=== PATIENT | female | born 1980 | race Caucasian/White ===

== ENCOUNTER 2016-06-30 10:22 | Emergency (ER) | payer SELFPAY ==
[~2016-06-30 10:22] MED LIST: ACYC400T; ALPR0.25 PO; AMIT50TA3 PO; AZIT-21 PO; CHLO15MO3 PO; CYCL10TA9 PO; GABA300T PO; HYDR12.570 PO; LISI10TA2 PO; MIRT15TA6; NAPR-243 PO; OMEP20CA6 PO; ONDA4TAB11 PO; ONDA8TAB9 PO; QUET300T44; TRAM-21 PO; TRAM50TA2 PO; VENL150C PO
== END 2016-06-30 11:30 | disposition left against medical advice (07) ==
LOC: EDUNIT# 10:22 → ER 10:25
DX: R05 Cough (principal); Z53.21 Procedure and treatment not carried out due to patient leaving prior to being seen by health care provider

== ENCOUNTER 2016-08-17 11:11 | Emergency (ER) | payer SELFPAY ==
[~2016-08-17] VITALS: Ht 172.7 cm; Wt 120.2 kg
--- NOTE | 2016-08-17 11:42 | ED Lower Extremity ---
General Chief Complaint: Lower Extremity Stated Complaint: LEFT FOOT PAIN/SWELLING Nursing Triage Note: PT REPORTS INJURED L FOOT APROX 6-8 MONTHS AGO. PT STATES SHE HEARD A "CRACK" WHEN WALKING 3-4 DAYS AGO AND REPORTS SWELLING/REDNESS TO SAME FOOT. Nursing Sepsis Screen: No Definite Risk Source: patient History of Present Illness Time seen by provider: 11:30 Initial Comments C/O LEFT FOOT PAIN STATES SHE BROKE THIS FOOT APPROXIMATELY 6 MONTHS AGO--WORE A BOOT FOR A WEEK AND NEVER FOLLOWED UP WITH ANYONE, ALTHOUGH SHE WAS ADVISED TO PT STATES 3-4 DAYS AGO SHE WAS WALKING AND FELT/HEARD A POP IN FOOT AND HAS HAD INCREASING PAIN AND DIFFICULTY WALKING ON LEFT FOOT SINCE THEN, WITH SWELLING AND REDNESS TO TOP OF FOOT. HAS NOT SOUGHT CARE UNTIL TODAY SYMPTOMS NO DIFFERENT TODAY HAS NOT TAKEN ANYTHING FOR PAIN Allergies and Home Medications Allergies Coded Allergies: Sulfa (Sulfonamide Antibiotics) (Unverified Allergy, Unknown, 07/31/14) amoxicillin (Unverified Allergy, Unknown, 07/31/14) hydrocodone (Unverified Allergy, Unknown, 07/31/14) morphine (Unverified Allergy, Unknown, 07/31/14) paroxetine (Unverified Allergy, Unknown, 07/31/14) sulfamethoxazole (Unverified Allergy, Unknown, 07/31/14) trimethoprim (Unverified Allergy, Unknown, 07/31/14) Home Medications Acyclovir 400 Mg Tablet #60 (Reported) Alprazolam 0.25 Mg Tablet Unknown Dose PO (Reported) Amitriptyline HCl 50 Mg Tablet #30 (Reported) Gabapentin 300 Mg Tablet 1 EACH PO TID (Reported) Hydrochlorothiazide 12.5 Mg Cap Unknown Dose PO (Reported) Lisinopril 10 Mg Tablet Unknown Dose PO (Reported) Mirtazapine 15 Mg Tablet #30 (Reported) Naproxen 500 Mg Tablet #20 500 MG PO BID Prescribed by: GUY XIAO on 08/17/16 1157 Omeprazole 20 Mg Capsule.dr Unknown Dose PO (Reported) Ondansetron 4 Mg Tab.rapdis #14 4 MG PO Q4H PRN PRN NAUSEA/VOMITING . Prescribed by: SOCORRO KEATING on 03/01/16 1708 Quetiapine Fumarate 300 Mg Tablet #30 (Reported) Tramadol HCl 50 Mg Tablet #20 50 MG PO Q6H PRN PRN PAIN Prescribed by: BOBY DANIELLE on 01/27/16 1750 Tramadol HCl 50 Mg Tablet #20 50 MG PO Q4H Prescribed by: GUY XIAO on 08/17/16 1157 Venlafaxine Hcl 150 Mg Cap.sr.24h 1 EACH PO DAILY (Reported) Constitutional: no symptoms reported Musculoskeletal: see HPI Skin: no symptoms reported Psychiatric/Neurological: No Symptoms Reported Past Lyzrfpb-Tuciia-Iayhmh Hx Patient Social History Alcohol Use: Denies Use Recreational Drug Use: No Smoking Status: Current Everyday Smoker Type Used: Cigarettes Recent Foreign Travel: No Contact w/Someone Who Travel: No Recent Infectious Disease Expo: No Recent Hopitalizations: No Immunizations Up To Date Tetanus Booster (TDap): Less than 5yrs Seasonal Allergies Seasonal Allergies: No Surgeries HX Surgeries: Yes (WISDOM TOOTH) Surgeries: Breast, Gallbladder, Hysterectomy, Nose Respiratory Hx Respiratory Disorders: Yes Respiratory Disorders: Asthma Cardiovascular Hx Cardiac Disorders: Yes Cardiac Disorders: High Cholesterol, Hypertension Neurological Hx Neurological Disorders: No 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 System Hx 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 Disorders: No Sexually Transmitted Disease: No HIV/AIDS: No HUMAN RESOURCES INTERN History: Hysterectomy Genitourinary Hx Genitourinary Disorders: No Gastrointestinal Hx Gastrointestinal Disorders: No Musculoskeletal Hx Musculoskeletal Disorders: Yes (LEFT FOOT FRACTURE) Musculoskeletal Disorders: Fractures Endocrine Hx Endocrine Disorders: No HEENT HX ENT Disorders: No Cancer Hx Cancer: No Psychosocial Hx Psychiatric Problems: Yes Behavioral Health Disorders: Anxiety, Depression Integumentary HX Skin/Integumentary Disorder: No Blood Transfusions Hx Blood Disorders: No Adverse Reaction to a Blood Tr: No Family Medical History Significant Family History: No Pertinent Family Hx Physical Exam Vital Signs Vital Sign - Last 12Hours 08/17/16 11:19 Temp 96.7 Pulse 97 Resp 18 B/P 112/59 Pulse Ox 96 Capillary Refill : Less Than 3 Seconds General Appearance: WD/WN no apparent distress obese Ankles: left ankle non-tender, left ankle normal inspection, left ankle normal range of motion, left ankle no evidence of injury Feet: left foot bone tenderness, left foot limited range of motion, left foot pain, left foot soft tissue tenderness, left foot swelling, left foot other ( DISTAL MOTOR/SENSORY/VASCULAR INTACT. ) Neurologic/Tendon: normal sensation normal motor functions normal tendon functions Neurologic/Psychiatric: printing gray cloth tender II-XII nml as tested no motor/sensory deficits alert normal mood/affect oriented x 3 Skin: normal color warm/dry Splinting and Joint Reduction : Samuel wrap: Yes Ordered: Crutches Progress/Results/Core Measures Results/Orders My Orders Orders-GUY XIAO DO Foot, Left, 3 Views (08/17/16 11:36) Samuel Bandage (08/17/16 11:50) Crutches (08/17/16 11:56) Vital Signs/I&O Vital Sign - Last 12Hours 08/17/16 08/17/16 11:19 12:26 Temp 96.7 Pulse 97 85 Resp 18 18 B/P 112/59 Pulse Ox 96 98 Blood Pressure Mean: 76 Progress Note : Progress Note PT HAS WALKING BOOT AT HOME Diagnostic Imaging Comments XRAYS LEFT FOOT--HEALING FRACTURE 2ND METATARSAL, NEW FX 3RD METATARSAL--PER RADIOLOGIST REPORT @ 1200 Reviewed: Reviewed by Me Departure Impression Impression: Primary Impression: Fracture of third metatarsal bone of left foot Disposition: HOME, SELF-CARE Condition: Stable Departure-Patient Inst. Referrals: WENDI BLACK MD (PCP/Family) Primary Care Physician ANKIT CLINE DO Patient Instructions: Foot Fracture (DC), How to Use Crutches Add. Discharge Instructions: SAMUEL WRAP AND WEAR BOOT AT ALL TIMES ICE TO AREA AT 20 MINUTE INTERVALS ELEVATE FOOT MUCH POSSIBLE FOLLOW UP WITH DR. CLINE/ ORTHO 4 STATES THIS WEEK FOR FURTHER CARE All discharge instructions reviewed with patient and/or family. Voiced understanding. Scripts Tramadol HCl (Ultram)50 Mg [id number] Mg PO Q4H #20 TAB Prov:GUY XIAO DO 08/17/16 Naproxen 500 Mg [id number] Mg PO BID #20 TAB Prov:GUY XIAO DO 08/17/16 Work/School Note: Work Release Form Date Seen in the Emergency Department: Aug 17, 2016 Return to Work: Aug 18, 2016 Other Restrictions Listed Below: LIMITED STANDING AND WALKING UNTIL RELEASED BY GUY MANNING DO Aug 17, 2016 11:41
--- NOTE | 2016-08-17 11:52 | Diagnostic Imaging Report ---
INDICATION: Left foot fracture 8 months ago, heard a pop in left foot 3-4 days ago, is having pain. FINDINGS: 3 views of the left foot demonstrates previous second metatarsal shaft fracture. There is abundant callus formation around this. The fracture line is still visible but is closing. There is a new nondisplaced fracture of the adjacent third metatarsal. IMPRESSION: 1. New nondisplaced third metatarsal fracture. 2. Healing second metatarsal fracture. Dictated by: Dictated on workstation # [id number]
[2016-08-17] MEDS ORDERED: TRAM-42 PO (11:57)
[2016-08-17] MEDS ORDERED: NAPR500T3 PO (11:57)
[2016-08-17 12:26] VITALS: BP 125/65
== END 2016-08-17 12:25 | disposition home or self-care (01) ==
LOC: EDUNIT# 11:11 → ER 11:13
DX: S92.335A Nondisplaced fracture of third metatarsal bone, left foot, initial encounter for closed fracture (principal); S92.325D Nondisplaced fracture of second metatarsal bone, left foot, subsequent encounter for fracture with routine healing; I10 Essential (primary) hypertension; F17.210 Nicotine dependence, cigarettes, uncomplicated; Z79.899 Other long term (current) drug therapy; X50.0XXA Overexertion from strenuous movement or load, initial encounter; Y99.8 Other external cause status
CPT/HCPCS: 73630; 99283

== ENCOUNTER 2016-09-11 10:20 | Emergency (ER) | payer SELFPAY ==
[~2016-09-11] VITALS: Ht 172.7 cm; Wt 127.0 kg
[~2016-09-11 10:20] MED LIST changes: +NAPR500T3 PO; +TRAM-42 PO
--- NOTE | 2016-09-11 10:55 | ED General ---
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 PT STATES URGENCY TO URINATE, UA OBTAINED AT TRIAGE, AND FEELING LIKE SHE IS "GOING IN AND OUT". 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 The patient has had some associated urgency. She denies fever, chills, headache, stiff neck, cough or shortness of breath, chest pain or palpitations, nausea vomiting or diarrhea. The patient states that she is having some difficulty concentrating. She denies lateralizing or localizing neurologic complaints. Patient has hypertension, anxiety, and depression. Allergies and Home Medications Allergies Coded Allergies: Sulfa (Sulfonamide Antibiotics) (Unverified Allergy, Unknown, 07/31/14) amoxicillin (Unverified Allergy, Unknown, 07/31/14) hydrocodone (Unverified Allergy, Unknown, 07/31/14) morphine (Unverified Allergy, Unknown, 07/31/14) paroxetine (Unverified Allergy, Unknown, 07/31/14) sulfamethoxazole (Unverified Allergy, Unknown, 07/31/14) trimethoprim (Unverified Allergy, Unknown, 07/31/14) Home Medications Acyclovir 400 Mg Tablet, #60 (Reported) Alprazolam 0.25 Mg Tablet, Unknown Dose PO, (Reported) Amitriptyline HCl 50 Mg Tablet, #30 (Reported) Gabapentin 300 Mg Tablet, 1 EACH PO TID, (Reported) Hydrochlorothiazide 12.5 Mg Cap, Unknown Dose PO, (Reported) Lisinopril 10 Mg Tablet, Unknown Dose PO, (Reported) Mirtazapine 15 Mg Tablet, #30 (Reported) Naproxen 500 Mg Tablet, 500 MG PO BID, #20 Prescribed by: GUY XIAO on 08/17/16 1157 Omeprazole 20 Mg Capsule.dr, Unknown Dose PO, (Reported) Ondansetron 4 Mg Tab.rapdis, 4 MG PO Q4H PRN for NAUSEA/VOMITING, #14 . Prescribed by: SOCORRO KEATING on 03/01/16 1708 Quetiapine Fumarate 300 Mg Tablet, #30 (Reported) Tramadol HCl 50 Mg Tablet, 50 MG PO Q6H PRN for PAIN, #20 Prescribed by: BOBY DANIELLE on 01/27/16 1750 Tramadol HCl 50 Mg Tablet, 50 MG PO Q4H, #20 Prescribed by: GUY XIAO on 08/17/16 1157 Venlafaxine Hcl 150 Mg Cap.sr.24h, 1 EACH PO DAILY, (Reported) Constitutional: No chills, No diaphoresis, No dizziness, No fever, malaise, weakness EENTM: No ear pain, No eye pain, No throat pain Respiratory: No cough, No short of breath Cardiovascular: No chest pain, No palpitations Gastrointestinal: No abdominal pain, No diarrhea, No nausea, No vomiting Genitourinary: dysuria, No hematuria Musculoskeletal: No back pain Skin: No rash Psychiatric/Neurological: Anxiety, Depressed Hematologic/Lymphatic: No Symptoms Reported Immunological/Allergic: no symptoms reported Past Kiohbbs-Diqxow-Zpxcyi Hx Patient Social History Alcohol Use: Denies Use Recreational Drug Use: No Smoking Status: Current Everyday Smoker Type Used: Cigarettes Recent Foreign Travel: No Contact w/Someone Who Travel: No Recent Infectious Disease Expo: No Recent Hopitalizations: No Immunizations Up To Date Tetanus Booster (TDap): Less than 5yrs Seasonal Allergies Seasonal Allergies: No Surgeries HX Surgeries: Yes (WISDOM TOOTH) Surgeries: Breast, Gallbladder, Hysterectomy, Nose Respiratory Hx Respiratory Disorders: Yes Respiratory Disorders: Asthma Cardiovascular Hx Cardiac Disorders: Yes Cardiac Disorders: High Cholesterol, Hypertension Neurological Hx Neurological Disorders: No 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 System : No (HYST) Hx 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 Disorders: No Sexually Transmitted Disease: No HIV/AIDS: No 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 Genitourinary Hx Genitourinary Disorders: Yes Genitourinary Disorders: UTI-Chronic Gastrointestinal Hx Gastrointestinal Disorders: No Musculoskeletal Hx Musculoskeletal Disorders: Yes (LEFT FOOT FRACTURE) Musculoskeletal Disorders: Fractures Endocrine Hx Endocrine Disorders: No HEENT HX ENT Disorders: No Cancer Hx Cancer: No Psychosocial Hx Psychiatric Problems: Yes Behavioral Health Disorders: Anxiety, Depression Integumentary HX Skin/Integumentary Disorder: No Blood Transfusions Hx Blood Disorders: No Adverse Reaction to a Blood Tr: No Reviewed Nursing Assessment Reviewed/Agree w Nursing PMH: Yes Family Medical History Significant Family History: No Pertinent Family Hx Physical Exam Vital Signs Vital Sign - Last 12Hours 09/11/16 10:29 Temp 97.4 Pulse 88 Resp 20 B/P (MAP) 105/70 Pulse Ox 97 O2 Delivery Room Air Capillary Refill : Less Than 3 Seconds General Appearance: No Apparent Distress, WD/WN Eyes: Bilateral Eye Normal Inspection HEENT: PERRL/EOMI, Normal ENT Inspection Neck: Full Range of Motion, Normal Inspection, Non Tender, Supple Respiratory: Lungs Clear, Normal Breath Sounds Cardiovascular: Regular Rate, Rhythm, No Murmur Gastrointestinal: Normal Bowel Sounds, Non Tender Back: Normal Inspection Extremity: Normal Inspection, Normal Range of Motion Neurologic/Psychiatric: Alert, Oriented x3, No Motor/Sensory Deficits, Normal Mood/Affect, park interpreter II-XII Norm as Tested Skin: Normal Color, Warm/Dry Progress/Results/Core Measures Results/Orders Lab Results Laboratory Tests Test 09/11/16 10:30 09/11/16 10:55 Range/Units Urine Color YELLOW Urine Clarity SLIGHTLY CLOUDY Urine pH 5 5-9 Urine Specific Roberts 1.020 1.016-1.022 Urine Protein 2+ H NEGATIVE Urine Glucose (UA) NEGATIVE NEGATIVE Urine Ketones NEGATIVE NEGATIVE Urine Nitrite NEGATIVE NEGATIVE Urine Bilirubin NEGATIVE NEGATIVE Urine Urobilinogen NORMAL NORMAL MG/DL Urine Leukocyte Esterase 1+ H NEGATIVE Urine RBC (Auto) NEGATIVE NEGATIVE Urine RBC NONE /HPF Urine WBC 2-5 /HPF Urine Squamous Epithelial Cells >50 H /HPF Urine Crystals NONE /LPF Urine Bacteria NEGATIVE /HPF Urine Casts NONE /LPF Urine Mucus NEGATIVE /LPF Urine Culture Indicated NO Sodium Level 129 L 135-145 MMOL/L Potassium Level 4.4 3.6-5.0 MMOL/L Chloride Level 94 L 98-107 MMOL/L Carbon Dioxide Level 22 21-32 MMOL/L Anion Gap 13 5-14 MMOL/L Blood Urea Nitrogen 37 H 7-18 MG/DL Creatinine 3.77 H 0.60-1.30 MG/DL Estimat Glomerular Filtration Rate 13 BUN/Creatinine Ratio 10 Glucose Level 85 70-105 MG/DL Calcium Level 9.3 8.5-10.1 MG/DL Magnesium Level 2.6 H 1.8-2.4 MG/DL Total Bilirubin 0.3 0.1-1.0 MG/DL Aspartate Amino Transf (AST/SGOT) 24 5-34 U/L Alanine Aminotransferase (ALT/SGPT) 28 0-55 U/L Alkaline Phosphatase 139 H 40-136 U/L Troponin I < 0.30 <0.30 NG/ML Total Protein 7.8 6.4-8.2 G/DL Albumin 4.6 H 3.2-4.5 G/DL My Orders Orders - ANKIT BE MD Ct Head Wo (09/11/16 10:40) Comprehensive Metabolic Panel (09/11/16 10:40) Chest 1 View, Ap/Pa Only (09/11/16 10:40) Ekg Tracing (09/11/16 10:40) Troponin I (09/11/16 10:40) Ua Culture If Indicated (09/11/16 10:40) Magnesium (09/11/16 10:40) Ibuprofen Tablet (Motrin Tablet) (09/11/16 12:00) Normal Saline Bolus 1,000ml (09/11/16 12:00) Vital Signs/I&O Vital Sign - Last 12Hours 09/11/16 10:29 Temp 97.4 Pulse 88 Resp 20 B/P (MAP) 105/70 Pulse Ox 97 O2 Delivery Room Air Blood Pressure Mean: 82 Progress Note : Time: 11:57 Progress Note The patient's laboratory evaluation, chest x-ray, and CT of the head were all essentially unremarkable other than a unexplained elevation of the patient's creatinine (3.77). I consult Dr. Carlson for Dr. Black. We arranged for a liter of saline in the emergency department to be given the patient. The patient is to hold her hydrochlorothiazide and lisinopril today. She will call the office at 7 morning for close follow-up in the morning with Dr. Carlson. I invited patient return to the emergency department should any further problems or questions. Departure Impression Impression: Primary Impression: Acute renal failure Qualified Codes: N17.9 - Acute kidney failure, unspecified Disposition: 01 HOME, SELF-CARE Condition: Improved Departure-Patient Inst. Decision time for Depature: 11:59 Referrals: WENDI BLACK MD (PCP/Family) Primary Care Physician RUBEN CARLSON MD Add. Discharge Instructions: Follow-up with Dr. Carlson in the morning by calling the office at 7 a.m. Come back for any problems or questions. Hold your blood pressure medicine ( hydrochlorothiazide and lisinopril). All discharge instructions reviewed with patient and/or family. Voiced understanding. ANKIT BE MD Sep 11, 2016 10:55
[2016-09-11 10:56] LABS: BILIRUBIN,URINE NEGATIVE (NEGATIVE); KETONES,URINE NEGATIVE (NEGATIVE); LEUKOCYTE ESTERASE ,URINE 1+ (NEGATIVE); NITRITE,URINE NEGATIVE (NEGATIVE); PH,URINE 5 (5-9); PROTEIN,URINE 2+ (NEGATIVE); UROBILINOGEN,URINE NORMAL (NORMAL)
[2016-09-11 11:15] LABS: SQUAMOUS EPITHELIAL CELL,UR >50 /HPF
--- NOTE | 2016-09-11 11:18 | Diagnostic Imaging Report ---
INDICATION: Weakness, trouble of muscle control. COMPARISON: January 27, 2016 TECHNIQUE: Single frontal radiograph of the chest dated September 11, 2016 FINDINGS: The cardiac silhouette is within normal limits in size. No significant pulmonary vascular congestion. The lungs are clear. No pleural effusion. No pneumothorax. No acute osseous abnormality. IMPRESSION: No acute cardiopulmonary abnormality. Dictated by: Dictated on workstation # [id number]
--- NOTE | 2016-09-11 11:20 | Diagnostic Imaging Report ---
PROCEDURE: CT head without contrast. TECHNIQUE: Multiple contiguous axial images were obtained through the brain without the use of intravenous contrast. INDICATION: Weakness, difficulty with muscle control There is no mass, shift of midline or hemorrhage to suggest an acute intracranial abnormality. The ventricles are not abnormally dilated and similar in size to the prior exam of 12/28/14. The bone windows show no sign of a fracture or of a destructive lesion. The orbits and sinuses were not visualized in their entirety. Where visualized there is no acute abnormality. IMPRESSION: 1. There is no evidence for acute intracranial abnormality. When compare to the previous study there has been no significant change. 2. If clinical concern regarding an underlying abnormality persists, then MRI would be recommended for further study. Dictated by: Dictated on workstation # [id number]
[2016-09-11 11:25] LABS: ALANINE AMINOTRANSFERASE 28 U/L (0-55); ALBUMIN 4.6 G/DL (3.2-4.5); ANION GAP 13 MMOL/L (5-14); ASPARTATE AMINO TRANSFERASE 24 U/L (5-34); BILIRUBIN,TOTAL 0.3 MG/DL (0.1-1.0); BLOOD UREA NITROGEN 37 MG/DL (7-18); BUN/CREATININE RATIO 10; CALCIUM 9.3 MG/DL (8.5-10.1); CARBON DIOXIDE 22 MMOL/L (21-32); CHLORIDE 94 MMOL/L (98-107); CREATININE SERUM 3.77 MG/DL (0.60-1.30); GFR ESTIMATED 13; GLUCOSE 85 MG/DL (70-105); MAGNESIUM 2.6 MG/DL (1.8-2.4); POTASSIUM 4.4 MMOL/L (3.6-5.0); SODIUM 129 MMOL/L (135-145); TOTAL PROTEIN 7.8 G/DL (6.4-8.2)
[2016-09-11 11:31] LABS: TROPONIN I < 0.30 NG/ML (<0.30)
[2016-09-11] MEDS ORDERED: NS IV 1000 ML 1,000 ML IV SCH (12:00)
[2016-09-11] MEDS ORDERED: IBUPROFEN 800 MG (MOTRIN) TAB PO ONE (12:00)
[2016-09-11 14:44] VITALS: BP 131/73
--- OUTSIDE RECORDS SUMMARY | 2016-10-04 11:57 | XMS REPORT ---
Author Author WENDI BLACK [employer] Address Unknown Phone Unavailable Care Team Providers Care Workplace Trainer And Assessor Name Role Phone WENDI BLACK CP Unavailable Allergies No Known Allergies Problems Problem Type Condition Code Onset Dates Condition Status Problem Mild intermittent asthma without complication J45.20 Active Problem Essential hypertension I10 Active Problem Primary insomnia F51.01 Active Problem Genital herpes simplex, unspecified site A60.00 Active Problem Tobacco use Z72.0 Active Problem Localized edema R60.0 Active Problem History of IBS Z87.19 Active Problem Depression F32.9 Active Problem Hidradenitis suppurativa L73.2 Active Problem Breast tenderness N64.4 Active Problem Hematuria R31.9 Active Problem Anxiety F41.9 Active Problem Bipolar disorder F31.9 Active Problem Mixed hyperlipidemia E78.2 Active Problem Gastroesophageal reflux disease, esophagitis presence not specified K21.9 Active Medications Medication Code System Code Instructions Start Date End Date Status Dosage Metoprolol Tartrate [facility] [address]-05 50 mg Orally Twice a day Feb 02, 2016 1 tablet with food Results No Known Results Summary Purpose eClinicalWorks Submission
--- OUTSIDE RECORDS SUMMARY | 2016-10-04 11:57 | XMS REPORT ---
Author Author CARLOS KEARNEY [facility] eClinicalWorks Address Unknown Phone Unavailable Care Team Providers Care Prehemmer Name Role Phone CARLOS KEARNEY Unavailable Allergies No Known Allergies Problems Problem Type Condition ICD-9 Code Onset Dates Condition Status Problem Urinary tract infection, site not specified 599.0 Active Assessment High risk medication use V58.69 Active Problem Lipoma of other skin and subcutaneous tissue 214.1 Active Problem Intestinal infection due to other organism, NEC 008.8 Active Problem Chest pain, unspecified 786.50 Active Problem Major depressive disorder, recurrent episode, moderate 296.32 Active Problem Other forms of migraine, without mention of intractable migraine without mention of status migrainosus 346.80 Active Problem Polydipsia 783.5 Active Problem Family history of diabetes mellitus V18.0 Active Problem Lumbago 724.2 Active Problem Persistent disorder of initiating or maintaining sleep 307.42 Active Problem Essential hypertension, benign 401.1 Active Problem Muscle weakness (generalized) 728.87 Active Problem Acute bronchitis 466.0 Active Problem Unspecified otalgia 388.70 Active Problem Other and unspecified hyperlipidemia 272.4 Active Problem Unspecified genital herpes 054.10 Active Problem Unspecified breast screening V76.10 Active Problem Screening examination for venereal disease V74.5 Active Problem Hematuria, unspecified 599.70 Active Problem Counseling on substance use and abuse V65.42 Active Problem Nausea alone 787.02 Active Problem Shortness of breath 786.05 Active Problem Edema 782.3 Active Problem Cough 786.2 Active Medications No Known Medications Procedures Procedure Coding System Code Date No Charge CPT-4 01459 December 22, 2014 Results No Known Results Summary Purpose eClinicalWorks Submission
--- OUTSIDE RECORDS SUMMARY | 2016-10-04 11:57 | XMS REPORT ---
Author Author CARLOS KEARNEY Organization [facility] [place] Address Unknown Care Team Providers Care Laboratory Scientist Name Role Phone CARLOS KEARNEY Unavailable PROBLEMS Type Condition ICD9-CM Code [id number] Code Onset Dates Condition Status SNOMED Code Problem Primary insomnia F51.01 Active 500914160 Problem Depression F32.9 Active 22590372 Problem Essential hypertension I10 Active 65007764 Problem Localized edema R60.0 Active 254036275 Problem Genital herpes simplex, unspecified site A60.00 Active 85301414 Problem Breast tenderness N64.4 Active 72889661 Problem History of IBS Z87.19 Active 72188331588134 Problem Tobacco use Z72.0 Active 697672541 Problem Hidradenitis suppurativa L73.2 Active 94120747 Problem Anxiety F41.9 Active 16014389 Problem Bipolar disorder F31.9 Active 18161327 Problem Mixed hyperlipidemia E78.2 Active 156523355 Problem Gastroesophageal reflux disease, esophagitis presence not specified K21.9 Active 382816383 Problem Hematuria R31.9 Active 29765457 Problem Mild intermittent asthma without complication J45.20 Active 474195531 ALLERGIES Unknown Allergies SOCIAL HISTORY No smoking Hx information available PLAN OF CARE VITAL SIGNS MEDICATIONS Medication Instructions Dosage Frequency Start Date End Date Duration Status Alprazolam 2 MG TAKE ONE TABLET BY MOUTH THREE TIMES DAILY NEEDED FOR ANXIETY Active RESULTS No Results PROCEDURES No Known procedures IMMUNIZATIONS No Known Immunizations
--- OUTSIDE RECORDS SUMMARY | 2016-10-04 11:57 | XMS REPORT ---
Author Author WENDY MARTINEZ [facility] [place] eClinicalWorks Address Unknown Phone Unavailable Care Team Providers Care Ob Scrub Tech Name Role Phone WENDY MARTINEZ Unavailable Allergies No Known Allergies Problems Problem Type Condition Code Onset Dates Condition Status Problem Anxiety F41.9 Active Problem Gastroesophageal reflux disease, esophagitis presence not specified K21.9 Active Problem Bipolar disorder F31.9 Active Problem Mixed hyperlipidemia E78.2 Active Problem Hematuria R31.9 Active Problem Breast tenderness N64.4 Active Problem History of IBS Z87.19 Active Problem Hidradenitis suppurativa L73.2 Active Problem Primary insomnia F51.01 Active Problem Mild intermittent asthma without complication J45.20 Active Problem Depression F32.9 Active Problem Essential hypertension I10 Active Medications No Known Medications Results No Known Results Summary Purpose eClinicalWorks Submission
--- OUTSIDE RECORDS SUMMARY | 2016-10-04 11:58 | XMS REPORT ---
Author Author CARLOS KEARNEY Organization [employer] Address Unknown Phone Unavailable Care Team Providers Care Housekeeping Aid Name Role Phone CARLOS KEARNEY CP Unavailable Allergies No Known Allergies Problems [...] Instructions Start Date End Date Status Dosage Alprazolam [facility] [address]-28 2 MG no further refills until attending appt TAKE ONE TABLET BY MOUTH THREE TIMES DAILY NEEDED FOR ANXIETY Results No Known Results Summary Purpose eClinicalWorks Submission
--- OUTSIDE RECORDS SUMMARY | 2016-10-04 11:58 | XMS REPORT ---
Author Author WENDI BLACK [facility] eClinicalWorks Address Unknown Phone Unavailable Care Team Providers Care Bituminous Distributor Operator Name Role Phone WENDI BLACK CP Unavailable Allergies No Known Allergies Problems Problem Type Condition Code Onset Dates Condition Status Problem Chest pain, unspecified 786.50 Active Problem Major depressive disorder, recurrent episode, moderate 296.32 Active Problem Other forms of migraine, without mention of intractable migraine without mention of status migrainosus 346.80 Active Problem Polydipsia 783.5 Active Problem Lumbago 724.2 Active Problem Family history of diabetes mellitus V18.0 Active Problem Persistent disorder of initiating or maintaining sleep 307.42 Active Problem Muscle weakness (generalized) 728.87 Active Problem Essential hypertension, benign 401.1 Active Problem Acute bronchitis 466.0 Active Problem [...] 786.05 Active Problem Edema 782.3 Active Problem Urinary tract infection, site not specified 599.0 Active Problem Intestinal infection due to other organism, NEC 008.8 Active Problem Cough 786.2 Active Problem Lipoma of other skin and subcutaneous tissue 214.1 Active Medications Medication Code System Code Instructions Start Date End Date Status Dosage Hydrochlorothiazide [facility] [place] 2] [address]-67 25 MG Orally Once a day May 04, 2015 1 tablet Omeprazole [facility] [place]NOTE 2] 35360866000 20 MG TAKE ONE CAPSULE BY MOUTH DAILY (MUST HAVE APPOINTMENT FOR REFILL) Results No Known Results Summary Purpose eClinicalWorks Submission
--- OUTSIDE RECORDS SUMMARY | 2016-10-04 11:58 | XMS REPORT ---
Author Author WENDI BLACK [employer] Address Unknown Phone Unavailable Care Team Providers Care Newspaper Photo Editor Name Role Phone WENDI BLACK CP Unavailable Allergies, Adverse Reactions, Alerts Substance Reaction Event Type Paxil suicidal Drug Allergy Morphine Sulfate hives Drug Allergy Hydrocodone-Acetaminophen rash Drug Allergy Bactrim DS break out in blisters Drug Allergy Amoxicillin hives Drug Allergy Abilify 2 Mg Tablet anger Non Drug Allergy Latex rash Non Drug Allergy Problems Problem Type Condition Code Onset Dates Condition Status Problem Mild intermittent asthma without complication J45.20 Active Problem Essential hypertension I10 Active Problem Primary insomnia F51.01 Active Problem Genital herpes simplex, unspecified site A60.00 Active Assessment Migraine without status migrainosus, not intractable, unspecified migraine type G43.909 Active Problem Tobacco use Z72.0 Active Assessment Genital herpes simplex, unspecified site A60.00 Active Assessment Closed traumatic minimally displaced fracture of metatarsal bone of left foot S92.302A Active Problem Localized edema R60.0 Active Problem History of IBS Z87.19 Active Problem Depression F32.9 Active Problem Hidradenitis suppurativa L73.2 Active Problem Breast tenderness N64.4 Active Assessment Gastroesophageal reflux disease, esophagitis presence not specified K21.9 Active Assessment Mixed hyperlipidemia E78.2 Active Assessment Hidradenitis suppurativa L73.2 Active Assessment Mild intermittent asthma without complication J45.20 Active Problem Hematuria R31.9 Active Problem Anxiety F41.9 Active Assessment Essential hypertension I10 Active Problem Bipolar disorder F31.9 Active Problem Mixed hyperlipidemia E78.2 Active Problem Gastroesophageal reflux disease, esophagitis presence not specified K21.9 Active Medications Medication Code System Code Instructions Start Date End Date Status Dosage Hydrochlorothiazide [facility] 04293759237 25 MG Orally Once a day 1 tablet Omeprazole [facility] [address]-39 20 mg Orally Once a day 1 capsule Alprazolam [facility] [address]-00 2 MG TAKE ONE TABLET BY MOUTH THREE TIMES DAILY NEEDED FOR ANXIETY Albuterol Sulfate [facility] [address]-91 90 mcg/actuation Feb 17, 2014 take 2 puffs by Inhalation route every 4-6 hours as needed PRN cough or wheezing. Metoprolol Succinate ER [facility] [address]-59 50 mg Orally Once a day Jan 29, 2016 1 tablet Acyclovir [facility] 86196061674 400 MG Orally 2 times a day 1 tablet Mirtazapine [facility] [address]-74 15 MG TAKE ONE TABLET BY MOUTH ONCE DAILY IN THE EVENING BEFORE BEDTIME Seroquel [facility] 07485537931 300 MG Orally Once a day 1 tablet at bedtime Neurontin [facility] [address]-86 300 MG Orally two times a day August 22, 2014 3 capsules Amitriptyline HCl [facility] [address]-59 25 MG Orally Once a day Jan 28, 2015 1 tablet in the mornings. Amitriptyline HCl [facility] [address]-62 50 MG TAKE ONE TABLET BY MOUTH AT BEDTIME Imitrex [facility] [address]-23 100 MG Orally Once a day and repeat once more if headache reoccurs as needed May 04, 2015 1 tablet as needed Venlafaxine HCl [facility] [address]-32 50 mg Orally Twice a day October 31, 2014 2 tablets Simvastatin [facility] [address]-69 40 mg Orally Once a day Jan 29, 2016 1 tablet in the evening Clindamycin Phosphate [facility] [address]-08 1 % Externally 2 times a day May 1 application to affected area after washing Procedures Procedure Coding System Code Date Office Visit, Est Pt., Level 3 CPT-4 88528 Jan 29, 2016 Vital Signs Date/Time: Jan 29, 2016 Cardiac Monitoring Heart Rate 90 bpm Weight 281.3 lbs Height 69 in BMI 41.54 Index Blood Pressure Diastolic 83 mmHg Blood Pressure Systolic 141 mmHg Results No Known Results Summary Purpose eClinicalWorks Submission
--- OUTSIDE RECORDS SUMMARY | 2016-10-04 11:58 | XMS REPORT ---
Author Author JAMES MAYO Organization [employer] Address Unknown Phone Unavailable Care Team Providers Care Web Master Name Role Phone JAMES MAYO CP Unavailable Allergies No Known Allergies Problems [...] Instructions Start Date End Date Status Dosage Venlafaxine HCl [facility] [address]-97 50 mg Orally Twice a day October 31, 2014 2 tablets Results No Known Results Summary Purpose eClinicalWorks Submission
--- OUTSIDE RECORDS SUMMARY | 2016-10-04 11:58 | XMS REPORT ---
Author Author GURU BURDICK Organization e[employer] Address Unknown Phone Unavailable Care Team Providers Care Edger Technician Name Role Phone GURU BURDICK CP Unavailable Allergies, Adverse Reactions, Alerts Substance Reaction Event Type Paxil suicidal Drug Allergy Morphine Sulfate hives Drug Allergy Hydrocodone-Acetaminophen rash Drug Allergy Bactrim DS break out in blisters Drug Allergy Amoxicillin hives Drug Allergy Latex rash Non Drug Allergy Abilify 2 Mg Tablet anger Non Drug Allergy Problems Problem Type Condition Code Onset Dates Condition Status Assessment Allergic rhinitis J30.9 Active Problem Hematuria R31.9 Active Assessment Upper respiratory symptom R09.89 Active Problem Primary insomnia F51.01 Active Problem Mild intermittent asthma without complication J45.20 Active Problem Essential hypertension I10 Active Problem Bipolar disorder F31.9 Active Problem Anxiety F41.9 Active Problem Pure hypercholesterolemia E78.0 Active Problem Gastroesophageal reflux disease, esophagitis presence not specified K21.9 Active Medications Medication Code System Code Instructions Start Date End Date Status Dosage Alprazolam [facility] [address]-81 2 MG TAKE ONE TABLET BY MOUTH THREE TIMES DAILY NEEDED FOR ANXIETY (MUST LAST 30 DAYS) Omeprazole [facility] [id number] 20 MG TAKE ONE CAPSULE BY MOUTH DAILY (MUST HAVE APPOINTMENT FOR REFILL) Neurontin [facility] [address]-28 300 MG Orally two times a day August 22, 2014 3 capsules Albuterol Sulfate [facility] [address]-91 90 mcg/actuation Feb 17, 2014 take 2 puffs by Inhalation route every 4-6 hours as needed PRN cough or wheezing. Amitriptyline HCl [facility] [address]-81 25 MG Orally Once a day Jan 28, 2015 1 tablet in the mornings. Hydrochlorothiazide [facility] [address]-14 25 MG Orally Once a day May 04, 2015 1 tablet Venlafaxine HCl [facility] [address]-38 50 mg Orally Twice a day October 31, 2014 2 tablets Imitrex [facility] [address]-33 100 MG Orally Once a day and repeat once more if headache reoccurs as needed May 04, 2015 1 tablet as needed Seroquel XR [facility] [address]-29 200 MG Orally Once a day May 22, 2015 1 tablet in the evening Acyclovir [facility] 28271624995 400 MG TAKE ONE TABLET BY MOUTH TWICE DAILY Cetirizine HCl [facility] [address]-55 10 MG Orally Once a day May 27, 2015 as directed Amitriptyline HCl [facility] [address]-08 50 MG Orally Once a day Jan 28, 2015 1 tablet at bedtime Mirtazapine [facility] [address]-56 15 MG Orally Once a day 1 tablet before bedtime in the evening Lisinopril [facility] [address]-67 40 MG Orally Once a day May 04, 2015 1 tablet Procedures Procedure Coding System Code Date Office Visit, Est Pt., Level 3 CPT-4 82388 May 27, 2015 MEASURE BLOOD OXYGEN LEVEL CPT-4 24751 May 27, 2015 Vital Signs Date/Time: May 27, 2015 Temperature 97.4 F Weight 241.6 lbs Height 69 in Oximetry 97 % Blood Pressure Diastolic 82 mmHg Blood Pressure Systolic 108 mmHg Cardiac Monitoring Heart Rate 92 bpm BMI 35.67 Index Results No Known Results Summary Purpose eClinicalWorks Submission
--- OUTSIDE RECORDS SUMMARY | 2016-10-04 11:58 | XMS REPORT ---
Author Author WENDY MARTINEZ [facility] eClinicalWorks Address Unknown Phone Unavailable Care Team Providers Care Web Design Intern Name Role Phone WENDY MARTINEZ Unavailable Allergies, Adverse Reactions, Alerts Substance Reaction [...] Active Problem Bipolar disorder F31.9 Active Problem Breast tenderness N64.4 Active Assessment Tobacco use Z72.0 Active Problem History of IBS Z87.19 Active Problem Hidradenitis suppurativa L73.2 Active Problem Primary insomnia F51.01 Active Problem Mild intermittent asthma without complication J45.20 Active Problem Depression F32.9 Active Problem Essential hypertension I10 Active Assessment Lipoma of other specified sites D17.79 Active Assessment History of anxiety Z86.59 Active Assessment Routine screening for STI (sexually transmitted infection) Z11.3 Active Assessment Hidradenitis suppurativa L73.2 Active Assessment History of herpes simplex infection Z86.19 Active Assessment Well woman exam Z01.419 Active Assessment History of depression Z86.59 Active Problem Mixed hyperlipidemia E78.2 Active Assessment Papanicolaou smear Z12.4 Active Problem Hematuria R31.9 Active Medications Medication Code System Code Instructions Start Date End Date Status Dosage Amitriptyline HCl [facility] [address]-24 50 MG Orally Once a day Jan 28, 2015 1 tablet at bedtime Seroquel XR [facility] [address]-49 200 MG Orally Once a day May 22, 2015 1 tablet in the evening Clindamycin Phosphate [facility] [address]-35 1 % Externally 2 times a day May 1 application to affected area after washing Lisinopril [facility] [address]-74 40 MG Orally Once a day May 04, 2015 1 tablet Cetirizine HCl [facility] [address]-01 10 MG Orally Once a day May 27, 2015 as directed Imitrex [facility] [address]-42 100 MG Orally Once a day and repeat once more if headache reoccurs as needed May 04, 2015 1 tablet as needed Mirtazapine [facility] [address]-34 15 MG Orally Once a day 1 tablet before bedtime in the evening Venlafaxine HCl [facility] [address]-14 50 mg Orally Twice a day October 31, 2014 2 tablets Albuterol Sulfate [facility] [address]-92 90 mcg/actuation Feb 17, 2014 take 2 puffs by Inhalation route every 4-6 hours as needed PRN cough or wheezing. Hydrochlorothiazide [facility] [address]-11 25 MG Orally Once a day May 04, 2015 1 tablet Omeprazole [facility] 57277211876 20 MG TAKE ONE CAPSULE BY MOUTH DAILY (MUST HAVE APPOINTMENT FOR REFILL) Alprazolam [facility] [address]-47 2 MG TAKE ONE TABLET BY MOUTH THREE TIMES DAILY NEEDED FOR ANXIETY (MUST LAST 30 DAYS) Neurontin [facility] [address]-26 300 MG Orally two times a day August 22, 2014 3 capsules Amitriptyline HCl [facility] [address]-13 25 MG Orally Once a day Jan 28, 2015 1 tablet in the mornings. Acyclovir [facility] 40723581885 400 MG TAKE ONE TABLET BY MOUTH TWICE DAILY Procedures Procedure Coding System Code Date TRICHOMONAS ASSAY W/OPTIC CPT-4 54490 Jun 03, 2015 CULTURE, BACTERIA, OTHER CPT-4 11383 Jun 03, 2015 No Charge CPT-4 75112 Jun 03, 2015 VENIPUNCT, ROUTINE* CPT-4 34746 Jun 03, 2015 Preventive Care Est Pt. Age 18-39 CPT-4 44850 Jun 03, 2015 SPECIMEN HANDLING CPT-4 63872 Jun 03, 2015 ACUTE HEPATITIS PANEL CPT-4 45574 Jun 03, 2015 SINGLE IMMUNIZATION ADMIN CPT-4 47013 Jun 03, 2015 FLUARIX QUAD (3 & UP)--2014 CPT-4 76230 Jun 03, 2015 Vital Signs Date/Time: Jun 03, 2015 Temperature 98.0 F Weight 241.4 lbs Height 69 in BMI 35.64 Index Blood Pressure Diastolic 78 mmHg Blood Pressure Systolic 118 mmHg Cardiac Monitoring Heart Rate 88 bpm Results Name Result Date Reference Range Unit Abnormality Flag ROUTINE VENIPUNCTURE Immunizations Vaccine Administration Date FLUARIX QUAD (3 & UP)-[facility]-2014Jun 03, 2015 Summary Purpose eClinicalWorks Submission
--- OUTSIDE RECORDS SUMMARY | 2016-10-04 11:58 | XMS REPORT ---
Author Author WENDI BLACK [employer] Address Unknown Phone Unavailable Care Team Providers Care Mental Health Social Worker Name Role Phone WENDI BLACK CP Unavailable Allergies No Known Allergies Problems Problem Type Condition Code Onset Dates Condition Status Problem Anxiety F41.9 Active Problem Gastroesophageal reflux disease, esophagitis presence not specified K21.9 Active Problem Bipolar disorder F31.9 Active Problem Breast tenderness N64.4 Active Problem History of IBS Z87.19 Active Problem Hidradenitis suppurativa L73.2 Active Problem Primary insomnia F51.01 Active Problem Mild intermittent asthma without complication J45.20 Active Problem Depression F32.9 Active Problem Essential hypertension I10 Active Assessment Mixed hyperlipidemia E78.2 Active Problem Mixed hyperlipidemia E78.2 Active Problem Hematuria R31.9 Active Medications Medication Code System Code Instructions Start Date End Date Status Dosage Pravastatin Sodium [facility] [address]-60 40 MG Orally Once a day Jun 08, 2015 1 tablet Results No Known Results Summary Purpose eClinicalWorks Submission
--- OUTSIDE RECORDS SUMMARY | 2016-10-04 11:58 | XMS REPORT ---
Author Author CARLOS KEARNEY Organization [employer]Works Address Unknown Phone Unavailable Care Team Providers Care Career Center Director Name Role Phone CARLOS KEARNEY CP Unavailable [...] Active Problem Essential hypertension I10 Active Medications Medication Code System Code Instructions Start Date End Date Status Dosage Alprazolam [facility] [address]-06 2 MG TAKE ONE TABLET BY MOUTH THREE TIMES DAILY NEEDED FOR ANXIETY (MUST LAST 30 DAYS) Results No Known Results Summary Purpose eClinicalWorks Submission
--- OUTSIDE RECORDS SUMMARY | 2016-10-04 11:59 | XMS REPORT ---
Author Author CARLOS KEARNEY [facility] eClinicalWorks Address Unknown Phone Unavailable Care Team Providers Care Laborer Shipyard Name Role Phone CARLOS KEARNEY CP Unavailable [...] skin and subcutaneous tissue 214.1 Active Medications No Known Medications Results No Known Results Summary Purpose eClinicalWorks Submission
--- OUTSIDE RECORDS SUMMARY | 2016-10-04 11:59 | XMS REPORT ---
Author Author WENDI BLACK [employer] Address Unknown Phone Unavailable Care Team Providers Care Sanding Machine Operator Or Tender Name Role Phone WENDI BLACK CP Unavailable [...]
--- OUTSIDE RECORDS SUMMARY | 2016-10-04 11:59 | XMS REPORT ---
Author Author CARLOS KEARNEY Organization e[employer]Works Address Unknown Phone Unavailable Care Team Providers Care Electronic Data Processing Auditor Name Role Phone CARLOS KEARNEY CP Unavailable [...] Instructions Start Date End Date Status Dosage Neurontin [facility] [address]-62 300 MG Orally two times a day August 22, 2014 3 capsules Results No Known Results Summary Purpose eClinicalWorks Submission
--- OUTSIDE RECORDS SUMMARY | 2016-10-04 11:59 | XMS REPORT ---
Author JOHN Moffett [facility] eClinicalWorks Address Unknown Phone Unavailable Care Team Providers Care Tack Coverer Name Role Phone JOHN STYLES Unavailable Allergies, Adverse Reactions, Alerts Substance Reaction [...] Active Problem Essential hypertension I10 Active Assessment Tobacco dependence F17.200 Active Assessment Cough R05 Active Problem Mixed hyperlipidemia E78.2 Active Assessment Costochondritis, acute M94.0 Active Problem Hematuria R31.9 Active Medications Medication Code System Code Instructions Start Date End Date Status Dosage Clindamycin Phosphate [facility] [address]-01 1 % Externally 2 times a day May 1 application to affected area after washing Cetirizine HCl [facility] [address]-03 10 MG Orally Once a day May 27, 2015 as directed Imitrex [facility] [address]-30 100 MG Orally Once a day and repeat once more if headache reoccurs as needed May 04, 2015 1 tablet as needed Hydrochlorothiazide [facility] [address]-95 25 MG Orally Once a day May 04, 2015 1 tablet Naproxen [facility] [address]-44 500 MG Orally every 12 hrs prn rib pain December 1 tablet as needed Omeprazole [facility] 49671279576 20 MG TAKE ONE CAPSULE BY MOUTH DAILY (MUST HAVE APPOINTMENT FOR REFILL) Mirtazapine [facility] [address]-34 15 MG Orally Once a day 1 tablet before bedtime in the evening Acyclovir [facility] 83980885290 400 MG TAKE ONE TABLET BY MOUTH TWICE DAILY Venlafaxine HCl [facility] [address]-86 50 mg Orally Twice a day October 31, 2014 2 tablets Doxycycline Hyclate [facility] [address]-30 100 MG Orally every 12 hrs December 17, 2015 December 27, 2015 1 capsule Neurontin [facility] [address]-82 300 MG Orally two times a day August 22, 2014 3 capsules Amitriptyline HCl [facility] [address]-19 50 MG Orally Once a day Jan 28, 2015 1 tablet at bedtime Albuterol Sulfate [facility] [address]-35 90 mcg/actuation Feb 17, 2014 take 2 puffs by Inhalation route every 4-6 hours as needed PRN cough or wheezing. Tessalon Perles [facility] [address]-69 200 mg Orally Three times a day prn cough December 17, 2015 1 capsule as needed Amitriptyline HCl [facility] [address]-46 25 MG Orally Once a day Jan 28, 2015 1 tablet in the mornings. Alprazolam [facility] [address]-99 2 MG TAKE ONE TABLET BY MOUTH THREE TIMES DAILY NEEDED FOR ANXIETY Lisinopril [facility] 51127411769 40 MG Orally Once a day 1 tablet Seroquel [facility] [address]-61 300 MG Orally Once a day September 16, 2015 1 tablet at bedtime Procedures Procedure Coding System Code Date Office Visit, Est Pt., Level 3 CPT-4 57061 December 17, 2015 MEASURE BLOOD OXYGEN LEVEL CPT-4 20048 December 17, 2015 Vital Signs Date/Time: December 17, 2015 Cardiac Monitoring Heart Rate 110 bpm Weight 270.4 lbs Height 69 in Blood Pressure Diastolic 74 mmHg Blood Pressure Systolic 122 mmHg Results No Known Results Summary Purpose eClinicalWorks Submission
--- OUTSIDE RECORDS SUMMARY | 2016-10-04 11:59 | XMS REPORT ---
Author Author CARLOS KEARNEY Organization eClinicalWorks Address Unknown Phone Unavailable Care Team Providers Care Global Expansion Sales Director Name Role Phone CARLOS KEARNEY CP [...] Start Date End Date Status Dosage Alprazolam [facility] [address]-37 2 MG TAKE ONE TABLET BY MOUTH THREE TIMES DAILY NEEDED FOR ANXIETY (MUST LAST 30 DAYS) Results No Known Results Summary Purpose eClinicalWorks Submission
--- OUTSIDE RECORDS SUMMARY | 2016-10-04 11:59 | XMS REPORT ---
Author Author CARLOS KEARNEY Organization eClinicalWorks Address Unknown Phone Unavailable Care Team Providers Care Muffler Hand Name Role Phone CARLOS KEARNEY CP Unavailable Allergies No Known Allergies Problems Problem Type Condition ICD-9 Code Onset Dates Condition Status Problem Chest [...] Instructions Start Date End Date Status Dosage Mirtazapine [facility] [address]-05 15 MG Orally Once a day Jan 28, 2015 1 tablet before bedtime in the evening Results No Known Results Summary Purpose eClinicalWorks Submission
--- OUTSIDE RECORDS SUMMARY | 2016-10-04 11:59 | XMS REPORT ---
Author Author CARLOS KEARNEY Organization eClinicalWorks Address Unknown Phone Unavailable Care Team Providers Care Spray Stainer Name Role Phone CARLOS KEARNEY CP Unavailable [...] esophagitis presence not specified K21.9 Active Medications No Known Medications Results No Known Results Summary Purpose eClinicalWorks Submission
--- OUTSIDE RECORDS SUMMARY | 2016-10-04 11:59 | XMS REPORT ---
Author Author WENDI BLACK eClinicalWorks Address Unknown Phone Unavailable Care Team Providers Care Geriatric Nursing Assistant Name Role Phone WENDI BLACK CP Unavailable [...] Instructions Start Date End Date Status Dosage Omeprazole [facility] [address]-19 20 mg TAKE ONE CAPSULE BY MOUTH DAILY Lisinopril [facility] [address]-02 40 mg Orally Once a day 1 tablet Results No Known Results Summary Purpose eClinicalWorks Submission
--- OUTSIDE RECORDS SUMMARY | 2016-10-04 11:59 | XMS REPORT ---
Author Author WENDI BLACK [employer]ClinicalWorks Address Unknown Phone Unavailable Care Team Providers Care Slitter Processed Film Name Role Phone WENDI BLACK CP Unavailable [...] Active Problem Essential hypertension I10 Active Assessment Essential hypertension I10 Active Assessment Hematuria R31.9 Active Assessment Hidradenitis L73.2 Active Problem Mixed hyperlipidemia E78.2 Active Assessment Pure hypercholesterolemia E78.0 Active Problem Hematuria R31.9 Active Medications Medication Code System Code Instructions Start Date End Date Status Dosage Amitriptyline HCl [facility]] [address]-28 25 MG Orally Once a day Jan 28, 2015 1 tablet in the mornings. Alprazolam [facility]NOTE 2] [address]-22 2 MG TAKE ONE TABLET BY MOUTH THREE TIMES DAILY NEEDED FOR ANXIETY (MUST LAST 30 DAYS) Acyclovir [facility]NOTE 2] 45128196784 400 MG TAKE ONE TABLET BY MOUTH TWICE DAILY Amitriptyline HCl [facility]NOTE 2] [address]-08 50 MG Orally Once a day Jan 28, 2015 1 tablet at bedtime Clindamycin Phosphate [facility]NOTE 2] [address]-73 1 % Externally 2 times a day May 1 application to affected area after washing Lisinopril [facility]NOTE 2] [address]-37 40 MG Orally Once a day May 04, 2015 1 tablet Omeprazole [facility]NOTE 2] 12280810933 20 MG TAKE ONE CAPSULE BY MOUTH DAILY (MUST HAVE APPOINTMENT FOR REFILL) Venlafaxine HCl [facility]NOTE 2] [address]-01 50 mg Orally Twice a day October 31, 2014 2 tablets Hydrochlorothiazide [facility]NOTE 2] [address]-57 25 MG Orally Once a day May 04, 2015 1 tablet Imitrex [facility]NOTE 2] [address]-42 100 MG Orally Once a day and repeat once more if headache reoccurs as needed May 04, 2015 1 tablet as needed Neurontin [facility]NOTE 2] [address]-18 300 MG Orally two times a day August 22, 2014 3 capsules Albuterol Sulfate [facility]NOTE 2] [address]-35 90 mcg/actuation Feb 17, 2014 take 2 puffs by Inhalation route every 4-6 hours as needed PRN cough or wheezing. Cetirizine HCl [facility]NOTE 2] [address]-19 10 MG Orally Once a day May 27, 2015 as directed Mirtazapine [facility]NOTE 2] [address]-46 15 MG Orally Once a day 1 tablet before bedtime in the evening Seroquel XR [facility]NOTE 2] [address]-15 200 MG Orally Once a day May 22, 2015 1 tablet in the evening Procedures Procedure Coding System Code Date VENIPUNCT, ROUTINE* CPT-4 39756 Jun 03, 2015 Office Visit, Est Pt., Level 3 CPT-4 72825 Jun 03, 2015 LIPID PANEL CPT-4 81824 Jun 03, 2015 Vital Signs Date/Time: Jun 03, 2015 Temperature 98.0 F Weight 241.4 lbs Height 69 in BMI 35.64 Index Blood Pressure Diastolic 78 mmHg Blood Pressure Systolic 118 mmHg Cardiac Monitoring Heart Rate 88 bpm Results Name Result Date Reference Range Unit Abnormality Flag ROUTINE VENIPUNCTURE Summary Purpose eClinicalWorks Submission
--- OUTSIDE RECORDS SUMMARY | 2016-10-04 12:00 | XMS REPORT ---
Author Author CARLOS KEARNEY Organization eClinicalWorks Address Unknown Phone Unavailable Care Team Providers Care Telephone Operator Receptionist Name Role Phone CARLOS KEARNEY CP Unavailable [...] Start Date End Date Status Dosage Alprazolam [facility] [address]-13 2 MG TAKE ONE TABLET BY MOUTH THREE TIMES DAILY NEEDED FOR ANXIETY (MUST LAST 30 DAYS) Results No Known Results Summary Purpose eClinicalWorks Submission
--- OUTSIDE RECORDS SUMMARY | 2016-10-04 12:00 | XMS REPORT ---
Author Author CARLOS KEARNEY Organization eClinicalWorks Address Unknown Phone Unavailable Care Team Providers Care Welder Railcar Mechanic Name Role Phone CARLOS KEARNEY CP Unavailable [...] Start Date End Date Status Dosage Alprazolam [facility] [address]-40 2 MG TAKE ONE TABLET BY MOUTH THREE TIMES DAILY NEEDED FOR ANXIETY (MUST LAST 30 DAYS) Results No Known Results Summary Purpose eClinicalWorks Submission
--- OUTSIDE RECORDS SUMMARY | 2016-10-04 12:00 | XMS REPORT ---
Author Author FARAZ PERALTA [facility] eClinicalWorks Address Unknown Phone Unavailable Care Team Providers Care Produce Laborer Name Role Phone FARAZ PERALTA CP Unavailable Allergies, Adverse Reactions, Alerts Substance Reaction Event Type Morphine Sulfate hives Drug Allergy Hydrocodone-Acetaminophen rash Drug Allergy Bactrim DS break out in blisters Drug Allergy Amoxicillin hives Drug Allergy Latex rash Non Drug Allergy Abilify 2 Mg Tablet anger Non Drug Allergy Problems Problem Type Condition ICD-9 Code Onset Dates Condition Status Problem Urinary tract infection, site not specified 599.0 Active Assessment Cough 786.2 Active Problem Lipoma of other [...] 782.3 Active Problem Cough 786.2 Active Medications Medication Code System Code Instructions Start Date End Date Status Dosage Neurontin [facility] [address]-50 300 MG Orally two times a day August 22, 2014 3 capsules Venlafaxine HCl [facility] [address]-21 50 mg Orally Twice a day October 31, 2014 2 tablets Mirtazapine [facility] [address]-14 15 MG Orally Once a day Jan 28, 2015 1 tablet before bedtime in the evening Albuterol Sulfate [facility] [address]-67 90 mcg/actuation Feb 17, 2014 take 2 puffs by Inhalation route every 4-6 hours as needed PRN cough or wheezing. Amitriptyline HCl [facility] [address]-31 25 MG Orally Once a day Jan 28, 2015 1 tablet in the mornings. Acyclovir [facility] [address]-96 400 mg November 15, 2011 take 1 tablet by Oral route 2 times per day for 7 daysthen 1 tab a day Imitrex [facility] [address]-63 100 mg Jul 11, 2014 1 tablet by Oral route 1 time per day and repeat once more after 2 hours if headache recurs PRN Lisinopril [facility] 19806533331 40 MG TAKE ONE TABLET BY MOUTH DAILY (MUST HAVE APPOINTMENT FOR REFILLS) Omeprazole [facility] 59502801376 20 MG TAKE ONE CAPSULE BY MOUTH DAILY (MUST HAVE APPOINTMENT FOR REFILL) Hydrochlorothiazide [facility] 47276573486 25 MG TAKE ONE TABLET BY MOUTH DAILY Azithromycin [facility] [address]-82 250 MG Orally Once a day Feb 09, 2015 Feb 14, 2015 2 tablets on the first day, then 1 tablet daily for 4 days Alprazolam [facility] [address]-25 2 MG Orally Three times a day PRN anxiety October 22, 2014 1 tablet Amitriptyline HCl [facility] [address]-92 50 MG Orally Once a day Jan 28, 2015 1 tablet at bedtime Procedures Procedure Coding System Code Date COMPLETE CBC W/AUTO DIFF WBC CPT-4 18422 Feb 09, 2015 Office Visit, Est Pt., Level 3 CPT-4 84295 Feb 09, 2015 MYCOPLASMA IGG/IGM (13108 X2) CPT-4 97065 Feb 09, 2015 THER/PROPH/DIAG INJ, SC/IM CPT-4 51765 Feb 09, 2015 DEPO MEDROL 40 MG/ML CPT-4 J1030 Feb 09, 2015 VENIPUNCT, ROUTINE* CPT-4 20939 Feb 09, 2015 DEXAMETHASONE 4MG/ML (PER 1 MG) CPT-4 J1100 Feb 09, 2015 Vital Signs Date/Time: Feb 09, 2015 Temperature 97.8 F Weight 232.8 lbs Height 69 in BMI 34.37 Index Blood Pressure Diastolic 50 mmHg Blood Pressure Systolic 132 mmHg Cardiac Monitoring Heart Rate 96 bpm Results Name Result Date Reference Range Unit Abnormality Flag ROUTINE VENIPUNCTURE MYCOPLASMA IgG/IgM Summary Purpose eClinicalWorks Submission
--- OUTSIDE RECORDS SUMMARY | 2016-10-04 12:00 | XMS REPORT ---
Author Author CARLOS DANIELS [facility] eClinicalWorks Address Unknown Phone Unavailable Care Team Providers Care Assembly Worker Name Role Phone CARLOS DANIELS CP Unavailable Allergies, Adverse Reactions, Alerts Substance [...] R31.9 Active Problem Anxiety F41.9 Active Assessment Localized edema R60.0 Active Problem Bipolar disorder F31.9 Active Problem Mixed hyperlipidemia E78.2 Active Problem Gastroesophageal reflux disease, esophagitis presence not specified K21.9 Active Medications Medication Code System Code Instructions Start Date End Date Status Dosage Seroquel [facility] 85873099880 300 MG Orally Once a day 1 tablet at bedtime Mirtazapine [facility] [address]-20 15 MG TAKE ONE TABLET BY MOUTH ONCE DAILY IN THE EVENING BEFORE BEDTIME Alprazolam [facility] [address]-79 2 MG TAKE ONE TABLET BY MOUTH THREE TIMES DAILY NEEDED FOR ANXIETY Neurontin [facility] [address]-31 300 MG Orally two times a day August 22, 2014 3 capsules Albuterol Sulfate [facility] [address]-67 90 mcg/actuation Feb 17, 2014 take 2 puffs by Inhalation route every 4-6 hours as needed PRN cough or wheezing. Lisinopril [facility] [address]-05 40 mg Orally Once a day 1 tablet Venlafaxine HCl [facility] [address]-23 50 mg Orally Twice a day October 31, 2014 2 tablets Amitriptyline HCl [facility] [address]-17 50 MG TAKE ONE TABLET BY MOUTH AT BEDTIME Raffaele Schroeder [facility] [address]-96 200 mg Orally Three times a day prn cough December 17, 2015 1 capsule as needed Naproxen [facility] [address]-35 500 MG Orally every 12 hrs prn rib pain December 1 tablet as needed Imitrex [facility] [address]-45 100 MG Orally Once a day and repeat once more if headache reoccurs as needed May 04, 2015 1 tablet as needed Acyclovir [facility] 43702449713 400 MG TAKE ONE TABLET BY MOUTH TWICE DAILY Omeprazole [facility] [address]-76 20 mg TAKE ONE CAPSULE BY MOUTH DAILY Hydrochlorothiazide [facility] 08212461648 25 MG Orally Once a day 1 tablet Clindamycin Phosphate [facility] [address]-32 1 % Externally 2 times a day May 1 application to affected area after washing Amitriptyline HCl [facility] [address]-88 25 MG Orally Once a day Jan 28, 2015 1 tablet in the mornings. Cetirizine HCl [facility] [address]-18 10 MG Orally Once a day May 27, 2015 as directed Procedures Procedure Coding System Code Date VENIPUNCT, ROUTINE* CPT-4 83012 Jan 14, 2016 Office Visit, Est Pt., Level 3 CPT-4 33996 Jan 14, 2016 [facility] C[facility]-4 NOBLL Jan 14, 2016 ELECTROCARDIOGRAM, TRACING CPT-4 59137 Jan 14, 2016 Vital Signs Date/Time: Jan 14, 2016 Cardiac Monitoring Heart Rate 92 bpm Weight 276.8 lbs Height 69 in BMI 40.87 Index Blood Pressure Diastolic 82 mmHg Blood Pressure Systolic 116 mmHg Results No Known Results Summary Purpose eClinicalWorks Submission
--- OUTSIDE RECORDS SUMMARY | 2016-10-04 12:00 | XMS REPORT ---
Author Author CARLOS KEARNEY Organization eClinicalWorks Address Unknown Phone Unavailable Care Team Providers Care Medication Care Manager Name Role Phone CARLOS KEARNEY CP Unavailable [...] Start Date End Date Status Dosage Alprazolam [facility] [address]-46 2 MG TAKE ONE TABLET BY MOUTH THREE TIMES DAILY NEEDED FOR ANXIETY Results No Known Results Summary Purpose eClinicalWorks Submission
--- OUTSIDE RECORDS SUMMARY | 2016-10-04 12:00 | XMS REPORT ---
Author Author WENDI BLACK [facility] eClinicalWorks Address Unknown Phone Unavailable Care Team Providers Care Track Manager Name Role Phone WENDI BLACK CP Unavailable [...] Instructions Start Date End Date Status Dosage Imitrex [facility] [address]-92 100 MG Orally Once a day and repeat once more if headache reoccurs as needed May 04, 2015 1 tablet as needed Hydrochlorothiazide [facility] [address]-86 25 MG Orally Once a day May 04, 2015 1 tablet Lisinopril [facility] [address]-68 40 MG Orally Once a day May 04, 2015 1 tablet Results No Known Results Summary Purpose eClinicalWorks Submission
--- OUTSIDE RECORDS SUMMARY | 2016-10-04 12:00 | XMS REPORT ---
Author Author CARLOS KEARNEY Organization eClinicalWorks Address Unknown Phone Unavailable Care Team Providers Care Cupola Operator Name Role Phone CARLOS KEARNEY CP Unavailable [...] Start Date End Date Status Dosage Alprazolam [facility] [address]-78 2 MG TAKE ONE TABLET BY MOUTH THREE TIMES DAILY NEEDED FOR ANXIETY (MUST LAST 30 DAYS) Results No Known Results Summary Purpose eClinicalWorks Submission
--- OUTSIDE RECORDS SUMMARY | 2016-10-04 12:01 | XMS REPORT ---
Author Author CARLOS KEARNEY Organization eClinicalWorks Address Unknown Phone Unavailable Care Team Providers Care Blown Film Extrusion Operator Name Role Phone CARLOS KEARNEY CP [...] Start Date End Date Status Dosage Neurontin [facility] [address]-77 300 MG Orally two times a day. Please voucher August 22, 2014 3 capsules Results No Known Results Summary Purpose eClinicalWorks Submission
--- OUTSIDE RECORDS SUMMARY | 2016-10-04 12:01 | XMS REPORT ---
Author Author WENDI BLACK [facility] eClinicalWorks Address Unknown Phone Unavailable Care Team Providers Care Bilingual Trainer Name Role Phone WENDI BLACK CP Unavailable [...] Start Date End Date Status Dosage Hydrochlorothiazide [facility] [address]-97 25 MG TAKE ONE TABLET BY MOUTH DAILY Results No Known Results Summary Purpose eClinicalWorks Submission
--- OUTSIDE RECORDS SUMMARY | 2016-10-04 12:01 | XMS REPORT ---
Author Author CARLOS KEARNEY [facility] eClinicalWorks Address Unknown Phone Unavailable Care Team Providers Care Wind Turbine Blade Repair Technician Name Role Phone CARLOS KEARNEY Unavailable Allergies No Known Allergies Problems Problem Type Condition Code Onset Dates Condition Status Assessment Bipolar disorder, unspecified F31.9 Active Assessment Posttraumatic stress disorder F43.10 Active Problem Mixed hyperlipidemia E78.2 Active Assessment Major depression, recurrent F33.9 Active Medications Medication Code System Code Instructions Start Date End Date Status Dosage Venlafaxine HCl [facility] [address]-58 50 mg Orally Twice a day October 31, 2014 2 tablets Imitrex [facility] [address]-59 100 MG Orally Once a day and repeat once more if headache reoccurs as needed May 04, 2015 1 tablet as needed Amitriptyline HCl [facility] [address]-95 25 MG Orally Once a day Jan 28, 2015 1 tablet in the mornings. Neurontin [facility] [address]-96 300 MG Orally two times a day August 22, 2014 3 capsules Seroquel XR [facility] [address]-00 200 MG Orally Once a day May 22, 2015 1 tablet in the evening Hydrochlorothiazide [facility] [address]-17 25 MG Orally Once a day May 04, 2015 1 tablet Albuterol Sulfate [facility] [address]-66 90 mcg/actuation Feb 17, 2014 take 2 puffs by Inhalation route every 4-6 hours as needed PRN cough or wheezing. Amitriptyline HCl [facility] [address]-39 50 MG Orally Once a day Jan 28, 2015 1 tablet at bedtime Lisinopril [facility] [address]-17 40 MG Orally Once a day May 04, 2015 1 tablet Mirtazapine [facility] [address]-28 15 MG Orally Once a day 1 tablet before bedtime in the evening Omeprazole [facility] 97387086438 20 MG TAKE ONE CAPSULE BY MOUTH DAILY (MUST HAVE APPOINTMENT FOR REFILL) Acyclovir [facility] 21441628031 400 MG TAKE ONE TABLET BY MOUTH TWICE DAILY Alprazolam [facility] [address]-26 2 MG TAKE ONE TABLET BY MOUTH THREE TIMES DAILY NEEDED FOR ANXIETY (MUST LAST 30 DAYS) Procedures Procedure Coding System Code Date Office Visit, Est Pt., Level 3 CPT-4 74128 May 22, 2015 Vital Signs Date/Time: May 22, 2015 Cardiac Monitoring Heart Rate 96 bpm Weight 237 lbs Height 69 in BMI 34.99 Index Blood Pressure Diastolic 78 mmHg Blood Pressure Systolic 122 mmHg Results No Known Results Summary Purpose eClinicalWorks Submission
--- OUTSIDE RECORDS SUMMARY | 2016-10-04 12:04 | XMS REPORT ---
Author Author WENDI BLACK eClinicalWorks Address Unknown Phone Unavailable Care Team Providers Care Dental Receptionist Name Role Phone WENDI BLACK Unavailable Allergies No Known Allergies Problems Problem [...] Start Date End Date Status Dosage Hydrochlorothiazide [facility] 95519749350 25 MG Orally Once a day 1 tablet Results No Known Results Summary Purpose eClinicalWorks Submission
--- OUTSIDE RECORDS SUMMARY | 2016-10-04 12:04 | XMS REPORT ---
Author Author CARLOS KEARNEY [facility] eClinicalWorks Address Unknown Phone Unavailable Care Team Providers Care Family Practice Medical Doctor Name Role Phone CARLOS KEARNEY CP Unavailable Allergies, Adverse Reactions, Alerts Substance [...] Active Problem Essential hypertension I10 Active Assessment Bipolar disorder, unspecified F31.9 Active Assessment Major depression, recurrent F33.9 Active Problem Mixed hyperlipidemia E78.2 Active Assessment Posttraumatic stress disorder F43.10 Active Problem Hematuria R31.9 Active Medications Medication Code System Code Instructions Start Date End Date Status Dosage Hydrochlorothiazide [facility] [address]-59 25 MG Orally Once a day May 04, 2015 1 tablet Seroquel [facility] [address]-70 300 MG Orally Once a day September 16, 2015 1 tablet at bedtime Lisinopril [facility] 48658025409 40 MG Orally Once a day 1 tablet Imitrex [facility] [address]-31 100 MG Orally Once a day and repeat once more if headache reoccurs as needed May 04, 2015 1 tablet as needed Venlafaxine HCl [facility] [address]-33 50 mg Orally Twice a day October 31, 2014 2 tablets Albuterol Sulfate [facility] [address]-72 90 mcg/actuation Feb 17, 2014 take 2 puffs by Inhalation route every 4-6 hours as needed PRN cough or wheezing. Cetirizine HCl [facility] [address]-66 10 MG Orally Once a day May 27, 2015 as directed Acyclovir [facility] 22527157500 400 MG TAKE ONE TABLET BY MOUTH TWICE DAILY Clindamycin Phosphate [facility] [address]-11 1 % Externally 2 times a day May 1 application to affected area after washing Amitriptyline HCl [facility] [address]-82 25 MG Orally Once a day Jan 28, 2015 1 tablet in the mornings. Neurontin [facility] [address]-97 300 MG Orally two times a day August 22, 2014 3 capsules Omeprazole [facility] 54177219439 20 MG TAKE ONE CAPSULE BY MOUTH DAILY (MUST HAVE APPOINTMENT FOR REFILL) Mirtazapine [facility] [address]-00 15 MG Orally Once a day 1 tablet before bedtime in the evening Alprazolam [facility] [address]-03 2 MG TAKE ONE TABLET BY MOUTH THREE TIMES DAILY NEEDED FOR ANXIETY Amitriptyline HCl [facility] [address]-29 50 MG Orally Once a day Jan 28, 2015 1 tablet at bedtime Procedures Procedure Coding System Code Date Office Visit, Est Pt., Level 3 CPT-4 97921 December 16, 2015 Vital Signs Date/Time: December 16, 2015 Cardiac Monitoring Heart Rate 100 bpm Weight 272.3 lbs Height 69 in Blood Pressure Diastolic 88 mmHg Blood Pressure Systolic 120 mmHg Results No Known Results Summary Purpose eClinicalWorks Submission
--- OUTSIDE RECORDS SUMMARY | 2016-10-04 12:04 | XMS REPORT ---
Author Author CARLOS KEARNEY [facility] eClinicalWorks Address Unknown Phone Unavailable Care Team Providers Care Swing Ride Operator Name Role Phone CARLOS KEARNEY CP [...] Start Date End Date Status Dosage Neurontin [facility] [address]-80 300 MG Orally two times a day August 22, 2014 3 capsules Seroquel XR [facility] [address]-01 200 MG Orally Once a day May 22, 2015 1 tablet in the evening Mirtazapine [facility] [address]-16 15 MG Orally Once a day 1 tablet before bedtime in the evening Amitriptyline HCl [facility] [address]-31 50 MG Orally Once a day Jan 28, 2015 1 tablet at bedtime Imitrex [facility] [address]-68 100 MG Orally Once a day and repeat once more if headache reoccurs as needed May 04, 2015 1 tablet as needed Amitriptyline HCl [facility] [address]-15 25 MG Orally Once a day Jan 28, 2015 1 tablet in the mornings. Results No Known Results Summary Purpose eClinicalWorks Submission
--- OUTSIDE RECORDS SUMMARY | 2016-10-04 12:04 | XMS REPORT ---
Author Author WENDI BLACK eClinicalWorks Address Unknown Phone Unavailable Care Team Providers Care Health Service Worker Name Role Phone WENDI BLACK Unavailable Allergies [...] Instructions Start Date End Date Status Dosage Lisinopril [facility] [address]-36 40 MG Orally Once a day May 04, 2015 1 tablet Results No Known Results Summary Purpose eClinicalWorks Submission
--- OUTSIDE RECORDS SUMMARY | 2016-10-04 12:04 | XMS REPORT ---
Author Author CARLOS KEARNEY [facility] eClinicalWorks Address Unknown Phone Unavailable Care Team Providers Care Edger Liner Name Role Phone CARLOS KEARNEY CP Unavailable Allergies, Adverse Reactions, Alerts Substance Reaction Event Type Morphine Sulfate hives Drug Allergy Hydrocodone-Acetaminophen rash Drug Allergy Bactrim DS break out in blisters Drug Allergy Amoxicillin hives Drug Allergy Latex rash Non Drug Allergy Abilify 2 Mg Tablet anger Non Drug Allergy Problems Problem Type Condition ICD-9 Code Onset Dates Condition Status Assessment Post traumatic stress disorder (PTSD) 309.81 Active Problem Urinary tract infection, site not specified 599.0 Active Assessment Depression, major, recurrent, moderate 296.32 Active Problem Lipoma of other skin and [...] Date End Date Status Dosage Venlafaxine HCl [facility] [address]-88 50 mg Orally Twice a day October 31, 2014 2 tablets Imitrex [facility] [address]-99 100 mg Jul 11, 2014 1 tablet by Oral route 1 time per day and repeat once more after 2 hours if headache recurs PRN Omeprazole [facility] 75221533810 20 MG TAKE ONE CAPSULE BY MOUTH DAILY (MUST HAVE APPOINTMENT FOR REFILL) Amitriptyline HCl [facility] [address]-89 25 MG Orally Once a day Jan 28, 2015 1 tablet in the mornings. Lisinopril [facility] 75837518921 40 MG TAKE ONE TABLET BY MOUTH DAILY (MUST HAVE APPOINTMENT FOR REFILLS) Albuterol Sulfate [facility] [address]-63 90 mcg/actuation Feb 17, 2014 take 2 puffs by Inhalation route every 4-6 hours as needed PRN cough or wheezing. Acyclovir [facility] [address]-34 400 mg November 15, 2011 take 1 tablet by Oral route 2 times per day for 7 daysthen 1 tab a day Mirtazapine [facility] [address]-88 15 MG Orally Once a day Jan 28, 2015 1 tablet before bedtime in the evening amitriptyline [facility] 0 50 mg orally once a day August 22, 2014 Feb 28, 2015 1 tablet Neurontin [facility] [address]-14 300 MG Orally two times a day August 22, 2014 3 capsules Alprazolam [facility] [address]-74 2 MG Orally Three times a day PRN anxiety October 22, 2014 1 tablet Hydrochlorothiazide [facility] 92816410172 25 MG TAKE ONE TABLET BY MOUTH DAILY Amitriptyline HCl [facility] [address]-86 50 MG Orally Once a day Jan 28, 2015 1 tablet at bedtime Procedures Procedure Coding System Code Date Office Visit, Est Pt., Level 3 CPT-4 60260 Jan 28, 2015 Vital Signs Date/Time: Jan 28, 2015 Temperature 98.9 F Weight 228.5 lbs Height 69 in BMI 33.74 Index Blood Pressure Diastolic 98 mmHg Blood Pressure Systolic 145 mmHg Cardiac Monitoring Heart Rate 96 bpm Results No Known Results Summary Purpose eClinicalWorks Submission
--- OUTSIDE RECORDS SUMMARY | 2016-10-04 12:04 | XMS REPORT | Continuity of Care Document ---
Author Author [facility] Address Unknown Phone Unavailable Allergies Active Description Code Type Severity Reaction Onset Reported/Identified Relationship to Patient Clinical Status Yes amoxicillin Drug Allergy N/A N/A 02/23/2011 Yes Bactrim Drug Allergy N/A N/A 02/23/2011 Yes hydrocodone Drug Allergy N/A N/A 02/23/2011 Yes morphine Drug Allergy N/A N/A 02/23/2011 Yes amoxicillin Drug Allergy 02/23/2011 Yes Bactrim Drug Allergy 02/23/2011 Yes hydrocodone Drug Allergy 02/23/2011 Yes morphine Drug Allergy 02/23/2011 Yes Latex OA N/A N/A 04/26/2013 Yes amoxicillin [id number] Drug Allergy Unknown N/A 07/31/2014 Yes hydrocodone [id number] Drug Allergy Unknown N/A 07/31/2014 Yes morphine [id number] Drug Allergy Unknown N/A 07/31/2014 Yes paroxetine [id number] Drug Allergy Unknown N/A 07/31/2014 Yes Sulfa (Sulfonamide Antibiotics) [id number] Drug Allergy Unknown N/A 07/31/2014 Yes sulfamethoxazole [id number] Drug Allergy Unknown N/A 07/31/2014 Yes trimethoprim [id number] Drug Allergy Unknown N/A 07/31/2014 Yes Abilify 2 mg tablet Drug Allergy N/A N/A 08/22/2014 Medications Problems Date Dx Coded Attending Type Code Diagnosis Diagnosed By 12/25/2007 682.9 CELLULITIS AND ABSCESS OF UNSPECIFIED SITES 12/25/2007 884.0 WOUND OPEN UPPER LIMB 12/25/2007 682.9 CELLULITIS AND ABSCESS OF UNSPECIFIED SITES 12/25/2007 884.0 WOUND OPEN UPPER LIMB 12/25/2007 682.9 CELLULITIS AND ABSCESS OF UNSPECIFIED SITES 12/25/2007 884.0 WOUND OPEN UPPER LIMB 12/25/2007 MANAV GIBSON APRN 682.9 CELLULITIS AND ABSCESS OF UNSPECIFIED SITES 12/25/2007 PAIGE HECK MANAV ALVES 884.0 WOUND OPEN UPPER LIMB 12/25/2007 GIBSON CIRCUS ROUSTABOUT, MANAV ALVES 682.9 CELLULITIS AND ABSCESS OF UNSPECIFIED SITES 12/25/2007 GIBSON UMANG MANAV ALVES 884.0 WOUND OPEN UPPER LIMB 12/25/2007 682.9 CELLULITIS AND ABSCESS OF UNSPECIFIED SITES 12/25/2007 884.0 Wound Open Upper Limb 12/25/2007 DIMPLE PEÑALOZA DO K 682.9 CELLULITIS AND ABSCESS OF UNSPECIFIED SITES 12/25/2007 AQUILES PEÑALOZA DOA K 884.0 Wound Open Upper Limb 12/25/2007 682.9 CELLULITIS AND ABSCESS OF UNSPECIFIED SITES 12/25/2007 884.0 Wound Open Upper Limb 12/25/2007 682.9 CELLULITIS AND ABSCESS OF UNSPECIFIED SITES 12/25/2007 884.0 Wound Open Upper Limb 12/25/2007 682.9 CELLULITIS AND ABSCESS OF UNSPECIFIED SITES 12/25/2007 884.0 Wound Open Upper Limb 12/25/2007 DIMPLE PEÑALOZA DO K 682.9 CELLULITIS AND ABSCESS OF UNSPECIFIED SITES 12/25/2007 AQUILES PEÑALOZA DOA K 884.0 WOUND OPEN UPPER LIMB 12/25/2007 TEOFILO FELICIANO MD 682.9 CELLULITIS AND ABSCESS OF UNSPECIFIED SITES 12/25/2007 TEOFILO FELICIANO MD 884.0 Wound Open Upper Limb 12/25/2007 DIMPLE PEÑALOZA DO K 682.9 CELLULITIS AND ABSCESS OF UNSPECIFIED SITES 12/25/2007 DIMPLE PEÑALOZA DO K 884.0 Wound Open Upper Limb 12/25/2007 PAIGE HECK MANAV WHITEH 682.9 CELLULITIS AND ABSCESS OF UNSPECIFIED SITES 12/25/2007 PAIGE HECK MANAV WHITEH 884.0 Wound Open Upper Limb 12/25/2007 MAU NAVARRO APRN A 682.9 CELLULITIS AND ABSCESS OF UNSPECIFIED SITES 12/25/2007 RAMON HECK MAU A 884.0 Wound Open Upper Limb 12/25/2007 PAIGE HECK MANAV WHITEH 682.9 CELLULITIS AND ABSCESS OF UNSPECIFIED SITES 12/25/2007 PAIGE HECK MANAV ALVES 884.0 Wound Open Upper Limb 12/25/2007 WENDI BLACK MD N 682.9 CELLULITIS AND ABSCESS OF UNSPECIFIED SITES 12/25/2007 WENDI BLACK MD N 884.0 Wound Open Upper Limb 12/25/2007 WENDI BLACK MD N 682.9 CELLULITIS AND ABSCESS OF UNSPECIFIED SITES 12/25/2007 WENDI BLACK MD N 884.0 Wound Open Upper Limb 12/25/2007 PEÑALOZA DO DIMPLE K 682.9 CELLULITIS AND ABSCESS OF UNSPECIFIED SITES 12/25/2007 PEÑALOZA DO, DIMPLE K 884.0 Wound Open Upper Limb 12/25/2007 PAIGE HECK MANAV ALVES 682.9 CELLULITIS AND ABSCESS OF UNSPECIFIED SITES 12/25/2007 PAIGE HECK MANAV WHITEH 884.0 Wound Open Upper Limb 12/25/2007 PEÑALOZA DO, DIMPLE K 682.9 CELLULITIS AND ABSCESS OF UNSPECIFIED SITES 12/25/2007 JH YEPEZ DIMPLE K 884.0 Wound Open Upper Limb 12/25/2007 WENDI BLACK MD N 682.9 CELLULITIS AND ABSCESS OF UNSPECIFIED SITES 12/25/2007 WENDI BLACK MD N 884.0 Wound Open Upper Limb 12/25/2007 WENDI BLACK MD N 682.9 CELLULITIS AND ABSCESS OF UNSPECIFIED SITES 12/25/2007 WENDI BLACK MD N 884.0 Wound Open Upper Limb 12/25/2007 TIN HEREDIA PSYD L 682.9 CELLULITIS AND ABSCESS OF UNSPECIFIED SITES 12/25/2007 TIN EHREDIA PSYD L 884.0 Wound Open Upper Limb 12/25/2007 WENDI BLACK MD N 682.9 CELLULITIS AND ABSCESS OF UNSPECIFIED SITES 12/25/2007 EWNDI BLACK MD N 884.0 Wound Open Upper Limb 12/25/2007 WENDI BLACK MD N 682.9 CELLULITIS AND ABSCESS OF UNSPECIFIED SITES 12/25/2007 WENDI BLACK MD N 884.0 Wound Open Upper Limb 12/25/2007 CARLOS AHUJA 682.9 CELLULITIS AND ABSCESS OF UNSPECIFIED SITES 12/25/2007 CARLOS AHUJA M 884.0 Wound Open Upper Limb 12/25/2007 CARLOS AHUJA M 682.9 CELLULITIS AND ABSCESS OF UNSPECIFIED SITES 12/25/2007 CARLOS AHUJA M 884.0 Wound Open Upper Limb 12/25/2007 CHRISTEL DOT ETCHER APPRENTICE, CARLOS M 682.9 CELLULITIS AND ABSCESS OF UNSPECIFIED SITES 12/25/2007 CARLOS AHUJA M 884.0 Wound Open Upper Limb 12/25/2007 CARLOS AHUJA M 682.9 CELLULITIS AND ABSCESS OF UNSPECIFIED SITES 12/25/2007 CARLOS AHUJA M 884.0 Wound Open Upper Limb 02/10/2010 Ot 724.2 05/27/2010 296.90 MO MOOD DIS NOS 05/27/2010 301.83 PD BORDERLINE 05/27/2010 296.90 MO MOOD DIS NOS 05/27/2010 301.83 PD BORDERLINE 05/27/2010 296.90 MO MOOD DIS NOS 05/27/2010 301.83 PD BORDERLINE 05/27/2010 PAIGE HECK MANAV ALVES 296.90 MO MOOD DIS NOS 05/27/2010 PAIGE HECK MANAV ALVES 301.83 PD BORDERLINE 05/27/2010 PAIGE HECK MANAV ALVES 296.90 MO MOOD DIS NOS 05/27/2010 PAIGE HECK MANAV ALVES 301.83 PD BORDERLINE 05/27/2010 296.90 MO MOOD DIS NOS 05/27/2010 301.83 PD BORDERLINE 05/27/2010 DIMPLE PEÑALOZA DO 296.90 MO MOOD DIS NOS 05/27/2010 DIMPLE PEÑALOZA DO 301.83 PD BORDERLINE 05/27/2010 296.90 MO MOOD DIS NOS 05/27/2010 301.83 PD BORDERLINE 05/27/2010 296.90 MO MOOD DIS NOS 05/27/2010 301.83 PD BORDERLINE 05/27/2010 296.90 MO MOOD DIS NOS 05/27/2010 301.83 PD BORDERLINE 05/27/2010 DIMPLE PEÑALOZA DO 296.90 MO MOOD DIS NOS 05/27/2010 DIMPLE PEÑALOZA DO 301.83 PD BORDERLINE 05/27/2010 TEOFILO FELICIANO MD 296.90 MO MOOD DIS NOS 05/27/2010 TEOFILO FELICIANO MD 301.83 PD BORDERLINE 05/27/2010 PEÑALOZA DO, DIMPLE K 296.90 MO MOOD DIS NOS 05/27/2010 PEÑALOZA DO, DIMPLE K 301.83 PD BORDERLINE 05/27/2010 PAIGE HECK, MANAV ALVES 296.90 MO MOOD DIS NOS 05/27/2010 GIBSON CIRCUS ROUSTABOUT, MANAV ALVES 301.83 PD BORDERLINE 05/27/2010 RAMON CIRCUS ROUSTABOUT, MAU A 296.90 MO MOOD DIS NOS 05/27/2010 RAMON CIRCUS ROUSTABOUT, MAU A 301.83 PD BORDERLINE 05/27/2010 GIBSON CIRCUS ROUSTABOUT, MANAV ALVES 296.90 MO MOOD DIS NOS 05/27/2010 GIBSON APRN, MANAV ALVES 301.83 PD BORDERLINE 05/27/2010 WENDI BLACK MD N 296.90 MO MOOD DIS NOS 05/27/2010 WENDI BLACK MD N 301.83 PD BORDERLINE 05/27/2010 WENDI BLACK MD N 296.90 MO MOOD DIS NOS 05/27/2010 WENDI BLACK MD N 301.83 PD BORDERLINE 05/27/2010 PEÑALOZA DO, DIMPLE K 296.90 MO MOOD DIS NOS 05/27/2010 PEÑALOZA DO, DIMPLE K 301.83 PD BORDERLINE 05/27/2010 MANAV GIBSON APRN 296.90 MO MOOD DIS NOS 05/27/2010 MANAV GIBSON APRN 301.83 PD BORDERLINE 05/27/2010 PEÑALOZA DO, DIMPLE K 296.90 MO MOOD DIS NOS 05/27/2010 PEÑALOZA DO, DIMPLE K 301.83 PD BORDERLINE 05/27/2010 WENDI BLACK MD N 296.90 MO MOOD DIS NOS 05/27/2010 WENDI BLACK MD N 301.83 PD BORDERLINE 05/27/2010 WENDI BLACK MD N 296.90 MO MOOD DIS NOS 05/27/2010 WENDI BLACK MD N 301.83 PD BORDERLINE 05/27/2010 TIN HEREDIA PSYD 296.90 MO MOOD DIS NOS 05/27/2010 TIN HEREDIA PSYD 301.83 PD BORDERLINE 05/27/2010 WENDI BLACK MD N 296.90 MO MOOD DIS NOS 05/27/2010 WENDI BLACK MD N 301.83 PD BORDERLINE 05/27/2010 WENDI BLACK MD 296.90 MO MOOD DIS NOS 05/27/2010 WENDI BLACK MD N 301.83 PD BORDERLINE 05/27/2010 CHRISTEL DOT ETCHER APPRENTICE, CARLOS M 296.90 MO MOOD DIS NOS 05/27/2010 CHRISTEL DOT ETCHER APPRENTICE, CARLOS M 301.83 PD BORDERLINE 05/27/2010 CHRISTEL DOT ETCHER APPRENTICE, CARLOS M 296.90 MO MOOD DIS NOS 05/27/2010 CHRISTEL DOT ETCHER APPRENTICE, CARLOS M 301.83 PD BORDERLINE 05/27/2010 CHRISTEL DOT ETCHER APPRENTICE, CARLOS M 296.90 MO MOOD DIS NOS 05/27/2010 CHRISTEL DOT ETCHER APPRENTICE, CARLOS M 301.83 PD BORDERLINE 05/27/2010 CHRISTEL DOT ETCHER APPRENTICE, CARLOS M 296.90 MO MOOD DIS NOS 05/27/2010 CHRISTEL DOT ETCHER APPRENTICE, CARLOS M 301.83 PD BORDERLINE 06/17/2010 296.80 MO BIPOLAR NOS 06/17/2010 300.02 AN GEN ANXIETY 06/17/2010 296.80 MO BIPOLAR NOS 06/17/2010 300.02 AN GEN ANXIETY 06/17/2010 296.80 MO BIPOLAR NOS 06/17/2010 300.02 AN GEN ANXIETY 06/17/2010 GIBSON APRNMANAV 296.80 MO BIPOLAR NOS 06/17/2010 GIBSONERIN HECKMANAV 300.02 AN GEN ANXIETY 06/17/2010 GIBSONERIN HECK MANAV ALVES 296.80 MO BIPOLAR NOS 06/17/2010 GIBSON UMANGMANAV 300.02 AN GEN ANXIETY 06/17/2010 296.80 MO BIPOLAR NOS 06/17/2010 300.02 AN GEN ANXIETY 06/17/2010 DIMPLE PEÑALOZA DO 296.80 MO BIPOLAR NOS 06/17/2010 DIMPLE PEÑALOZA DO 300.02 AN GEN ANXIETY 06/17/2010 296.80 MO BIPOLAR NOS 06/17/2010 300.02 AN GEN ANXIETY 06/17/2010 296.80 MO BIPOLAR NOS 06/17/2010 300.02 AN GEN ANXIETY 06/17/2010 296.80 MO BIPOLAR NOS 06/17/2010 300.02 AN GEN ANXIETY 06/17/2010 DIMPLE PEÑALOZA DO 296.80 MO BIPOLAR NOS 06/17/2010 DIMPLE PEÑALOZA DO 300.02 AN GEN ANXIETY 06/17/2010 TEOFILO FELICIANO MD 296.80 MO BIPOLAR NOS 06/17/2010 CARLOS FELICIANO MDA M 300.02 AN GEN ANXIETY 06/17/2010 PEÑALOZA DO, DIMPLE K 296.80 MO BIPOLAR NOS 06/17/2010 PEÑALOZA DO, DIMPLE K 300.02 AN GEN ANXIETY 06/17/2010 GIBSON CIRCUS ROUSTABOUT, MANAV ALVES 296.80 MO BIPOLAR NOS 06/17/2010 GIBSON CIRCUS ROUSTABOUT, MANAV ALVES 300.02 AN GEN ANXIETY 06/17/2010 RMAON CIRCUS ROUSTABOUT, MAU A 296.80 MO BIPOLAR NOS 06/17/2010 RAMON CIRCUS ROUSTABOUT, MAU A 300.02 AN GEN ANXIETY 06/17/2010 GIBSON CIRCUS ROUSTABOUT, MANAV ALVES 296.80 MO BIPOLAR NOS 06/17/2010 GIBSON CIRCUS ROUSTABOUT, MANAV ALVES 300.02 AN GEN ANXIETY 06/17/2010 WENDI BLACK MD 296.80 MO BIPOLAR NOS 06/17/2010 WENDI BLACK MD 300.02 AN GEN ANXIETY 06/17/2010 WENDI BLACK MD 296.80 MO BIPOLAR NOS 06/17/2010 WENDI BLACK MD 300.02 AN GEN ANXIETY 06/17/2010 PEÑALOZA DO, DIMPLE K 296.80 MO BIPOLAR NOS 06/17/2010 PEÑALOZA DO, DIMPLE K 300.02 AN GEN ANXIETY 06/17/2010 PAIGE HECK, MANAV ALVES 296.80 MO BIPOLAR NOS 06/17/2010 PAIGE HECK, MANAV ALVES 300.02 AN GEN ANXIETY 06/17/2010 PEÑALOZA DO, DIMPLE K 296.80 MO BIPOLAR NOS 06/17/2010 PEÑALOZA DO, DIMPLE K 300.02 AN GEN ANXIETY 06/17/2010 WENDI BLACK MD 296.80 MO BIPOLAR NOS 06/17/2010 WENDI BLACK MD 300.02 AN GEN ANXIETY 06/17/2010 WENDI BLACK MD N 296.80 MO BIPOLAR NOS 06/17/2010 WENDI BLACK MD 300.02 AN GEN ANXIETY 06/17/2010 TIN HEREDIA PSYD L 296.80 MO BIPOLAR NOS 06/17/2010 TIN HEREDIA PSYD L 300.02 AN GEN ANXIETY 06/17/2010 WENDI BLACK MD 296.80 MO BIPOLAR NOS 06/17/2010 WENDI BLACK MD 300.02 AN GEN ANXIETY 06/17/2010 WENDI BLACK MD 296.80 MO BIPOLAR NOS 06/17/2010 WENDI BLACK MD 300.02 AN GEN ANXIETY 06/17/2010 CHRISTEL DOT ETCHER APPRENTICE, CARLOS M 296.80 MO BIPOLAR NOS 06/17/2010 CHRISTEL DOT ETCHER APPRENTICE, CARLOS M 300.02 AN GEN ANXIETY 06/17/2010 CHRISTEL DOT ETCHER APPRENTICE, CARLOS M 296.80 MO BIPOLAR NOS 06/17/2010 CHRISTEL DOT ETCHER APPRENTICE, CARLOS M 300.02 AN GEN ANXIETY 06/17/2010 CHRISTEL DOT ETCHER APPRENTICE, CARLOS M 296.80 MO BIPOLAR NOS 06/17/2010 CHRISTEL DOT ETCHER APPRENTICE, CARLOS M 300.02 AN GEN ANXIETY 06/17/2010 CHRISTEL DOT ETCHER APPRENTICE, CARLOS M 296.80 MO BIPOLAR NOS 06/17/2010 CHRISTEL DOT ETCHER APPRENTICE, CARLOS M 300.02 AN GEN ANXIETY 10/14/2010 296.89 MO BIPOLAR II 10/14/2010 296.89 MO BIPOLAR II 10/14/2010 296.89 MO BIPOLAR II 10/14/2010 MANAV GIBSON APRN 296.89 MO BIPOLAR II 10/14/2010 MANAV GIBSON APRN 296.89 MO BIPOLAR II 10/14/2010 296.89 MO BIPOLAR II 10/14/2010 DIMPLE PEÑALOZA DO 296.89 MO BIPOLAR II 10/14/2010 296.89 MO BIPOLAR II 10/14/2010 296.89 MO BIPOLAR II 10/14/2010 296.89 MO BIPOLAR II 10/14/2010 DIMPLE PEÑALOZA DO 296.89 MO BIPOLAR II 10/14/2010 TEOFILO FELICIANO MD 296.89 MO BIPOLAR II 10/14/2010 DIMPLE PEÑALOZA DO 296.89 MO BIPOLAR II 10/14/2010 MANAV GIBSON APRN 296.89 MO BIPOLAR II 10/14/2010 MAU NAVARRO APRN 296.89 MO BIPOLAR II 10/14/2010 MANAV GIBSON APRN 296.89 MO BIPOLAR II 10/14/2010 WENDI BLACK MD 296.89 MO BIPOLAR II 10/14/2010 WENDI BLACK MD 296.89 MO BIPOLAR II 10/14/2010 DIMPLE PEÑALOZA DO 296.89 MO BIPOLAR II 10/14/2010 MANAV GIBSON APRN 296.89 MO BIPOLAR II 10/14/2010 DIMPLE PEÑALOZA DO K 296.89 MO BIPOLAR II 10/14/2010 SOFIA RICE, WENDI N 296.89 MO BIPOLAR II 10/14/2010 SOFIA RICE, WENDI N 296.89 MO BIPOLAR II 10/14/2010 YAN ROACH TIN HINOJOSA Khushbu 296.89 MO BIPOLAR II 10/14/2010 SOFIA RICE, WENDI Dupont 296.89 MO BIPOLAR II 10/14/2010 SOFIA RICE, WENDI N 296.89 MO BIPOLAR II 10/14/2010 CHRISTEL DOT ETCHER APPRENTICE, CARLOS M 296.89 MO BIPOLAR II 10/14/2010 CHRISTEL DOT ETCHER APPRENTICE, CARLOS M 296.89 MO BIPOLAR II 10/14/2010 CHRISTEL DOT ETCHER APPRENTICE, CARLOS M 296.89 MO BIPOLAR II 10/14/2010 CHRISTEL DOT ETCHER APPRENTICE, CARLOS M 296.89 MO BIPOLAR II 03/22/2011 V72.31 CHRONIC CARE NURSE EXAM, ROUTINE 03/22/2011 V72.31 CHRONIC CARE NURSE EXAM, ROUTINE 03/22/2011 V72.31 CHRONIC CARE NURSE EXAM, ROUTINE 03/22/2011 MANAV GIBSON APRN V72.31 CHRONIC CARE NURSE EXAM, ROUTINE 03/22/2011 MANAV GIBSON APRN V72.31 CHRONIC CARE NURSE EXAM, ROUTINE 03/22/2011 V72.31 CHRONIC CARE NURSE EXAM, ROUTINE 03/22/2011 DIMPLE PEÑALOZA DO V72.31 CHRONIC CARE NURSE EXAM, ROUTINE 03/22/2011 V72.31 CHRONIC CARE NURSE EXAM, ROUTINE 03/22/2011 V72.31 CHRONIC CARE NURSE EXAM, ROUTINE 03/22/2011 V72.31 CHRONIC CARE NURSE EXAM, ROUTINE 03/22/2011 DIMPLE PEÑALOZA DO V72.31 CHRONIC CARE NURSE EXAM, ROUTINE 03/22/2011 TEOFILO FELICIANO MD V72.31 CHRONIC CARE NURSE EXAM, ROUTINE 03/22/2011 DIMPLE PEÑALOZA DO V72.31 CHRONIC CARE NURSE EXAM, ROUTINE 03/22/2011 MANAV GIBSON APRN V72.31 CHRONIC CARE NURSE EXAM, ROUTINE 03/22/2011 MAU NAVARRO APRN V72.31 CHRONIC CARE NURSE EXAM, ROUTINE 03/22/2011 MANAV GIBSON APRN V72.31 CHRONIC CARE NURSE EXAM, ROUTINE 03/22/2011 EWNDI BLACK MD V72.31 CHRONIC CARE NURSE EXAM, ROUTINE 03/22/2011 WENDI BLACK MD V72.31 CHRONIC CARE NURSE EXAM, ROUTINE 03/22/2011 PEÑALOZA DIMPLE YEPEZ V72.31 CHRONIC CARE NURSE EXAM, ROUTINE 03/22/2011 MANAV GIBSON APRN V72.31 CHRONIC CARE NURSE EXAM, ROUTINE 03/22/2011 PEÑALOZA DIMPLE YEPEZ V72.31 CHRONIC CARE NURSE EXAM, ROUTINE 03/22/2011 WENDI BLACK MD V72.31 CHRONIC CARE NURSE EXAM, ROUTINE 03/22/2011 WENDI BLACK MD V72.31 CHRONIC CARE NURSE EXAM, ROUTINE 03/22/2011 TIN HEREDIA PSYD V72.31 CHRONIC CARE NURSE EXAM, ROUTINE 03/22/2011 WENDI BLACK MD V72.31 CHRONIC CARE NURSE EXAM, ROUTINE 03/22/2011 SOFIA RICE, WENDI Dupont V72.31 CHRONIC CARE NURSE EXAM, ROUTINE 03/22/2011 CARLOS AHUAJ M V72.31 CHRONIC CARE NURSE EXAM, ROUTINE 03/22/2011 CAROLS AHUJA M V72.31 CHRONIC CARE NURSE EXAM, ROUTINE 03/22/2011 CHRISTEL DOT ETCHER APPRENTICECARLOS M V72.31 CHRONIC CARE NURSE EXAM, ROUTINE 03/22/2011 CHRISTEL DOT ETCHER APPRENTICE, CARLOS M V72.31 CHRONIC CARE NURSE EXAM, ROUTINE 05/26/2011 465.9 UPPER RESPIRATORY INFECTION 05/26/2011 465.9 UPPER RESPIRATORY INFECTION 05/26/2011 465.9 UPPER RESPIRATORY INFECTION 05/26/2011 MANAV GIBSON APRN 465.9 UPPER RESPIRATORY INFECTION 05/26/2011 MANAV GIBSON APRN 465.9 UPPER RESPIRATORY INFECTION 05/26/2011 465.9 UPPER RESPIRATORY INFECTION 05/26/2011 DIMPLE PEÑALOZA DO K 465.9 UPPER RESPIRATORY INFECTION 05/26/2011 465.9 UPPER RESPIRATORY INFECTION 05/26/2011 465.9 UPPER RESPIRATORY INFECTION 05/26/2011 465.9 UPPER RESPIRATORY INFECTION 05/26/2011 DIMPLE PEÑALOZA DO K 465.9 UPPER RESPIRATORY INFECTION 05/26/2011 TEOFILO FELICIANO MD 465.9 UPPER RESPIRATORY INFECTION 05/26/2011 DIMPLE PEÑALOZA DO K 465.9 UPPER RESPIRATORY INFECTION 05/26/2011 MANAV GIBSON APRN 465.9 UPPER RESPIRATORY INFECTION 05/26/2011 MAU NAVARRO APRN 465.9 UPPER RESPIRATORY INFECTION 05/26/2011 MANAV GIBSON APRNH 465.9 UPPER RESPIRATORY INFECTION 05/26/2011 SOFIA RICE, WENDI N 465.9 UPPER RESPIRATORY INFECTION 05/26/2011 WENDI BLACK MD N 465.9 UPPER RESPIRATORY INFECTION 05/26/2011 PEÑALOZA DO, DIMPLE K 465.9 UPPER RESPIRATORY INFECTION 05/26/2011 PAIGE HECK MANAV LONG 465.9 UPPER RESPIRATORY INFECTION 05/26/2011 PEÑALOZA DO, DIMPLE K 465.9 UPPER RESPIRATORY INFECTION 05/26/2011 WENDI BLACK MD N 465.9 UPPER RESPIRATORY INFECTION 05/26/2011 WENDI BLACK MD N 465.9 UPPER RESPIRATORY INFECTION 05/26/2011 TIN HEREDIA PSYD 465.9 UPPER RESPIRATORY INFECTION 05/26/2011 WENDI BLACK MD N 465.9 UPPER RESPIRATORY INFECTION 05/26/2011 WENDI BLACK MD N 465.9 UPPER RESPIRATORY INFECTION 05/26/2011 CHRISTEL DOT ETCHER APPRENTICE, CARLOS M 465.9 UPPER RESPIRATORY INFECTION 05/26/2011 CHRISTEL DOT ETCHER APPRENTICE, CARLOS M 465.9 UPPER RESPIRATORY INFECTION 05/26/2011 CHRISTEL DOT ETCHER APPRENTICE, CARLOS M 465.9 UPPER RESPIRATORY INFECTION 05/26/2011 CHRISTEL DOT ETCHER APPRENTICE, CARLOS M 465.9 UPPER RESPIRATORY INFECTION 07/14/2011 401.1 HYPERTENSION, BENIGN ESSENTIAL 07/14/2011 783.5 POLYDIPSIA 07/14/2011 V18.0 FAMILY HISTORY OF DIABETES MELLITUS 07/14/2011 401.1 HYPERTENSION, BENIGN ESSENTIAL 07/14/2011 783.5 POLYDIPSIA 07/14/2011 V18.0 FAMILY HISTORY OF DIABETES MELLITUS 07/14/2011 401.1 HYPERTENSION, BENIGN ESSENTIAL 07/14/2011 783.5 POLYDIPSIA 07/14/2011 V18.0 FAMILY HISTORY OF DIABETES MELLITUS 07/14/2011 MANAV GIBSON APRN 401.1 HYPERTENSION, BENIGN ESSENTIAL 07/14/2011 MANAV GIBSON APRN 783.5 POLYDIPSIA 07/14/2011 MANAV GIBSON APRN V18.0 FAMILY HISTORY OF DIABETES MELLITUS 07/14/2011 MANAV GIBSON APRN 401.1 HYPERTENSION, BENIGN ESSENTIAL 07/14/2011 MANAV GIBSON APRN 783.5 POLYDIPSIA 07/14/2011 PAIGE HECK MANAV LONG V18.0 FAMILY HISTORY OF DIABETES MELLITUS 07/14/2011 401.1 HYPERTENSION, BENIGN ESSENTIAL 07/14/2011 783.5 Polydipsia 07/14/2011 V18.0 FAMILY HISTORY OF DIABETES MELLITUS 07/14/2011 DIMPLE PEÑALOZA DO 401.1 HYPERTENSION, BENIGN ESSENTIAL 07/14/2011 DIMPLE PEÑALOZA DO K 783.5 Polydipsia 07/14/2011 DIMPLE PEÑALOZA DO K V18.0 FAMILY HISTORY OF DIABETES MELLITUS 07/14/2011 401.1 HYPERTENSION, BENIGN ESSENTIAL 07/14/2011 783.5 Polydipsia 07/14/2011 V18.0 FAMILY HISTORY OF DIABETES MELLITUS 07/14/2011 401.1 HYPERTENSION, BENIGN ESSENTIAL 07/14/2011 783.5 Polydipsia 07/14/2011 V18.0 FAMILY HISTORY OF DIABETES MELLITUS 07/14/2011 401.1 HYPERTENSION, BENIGN ESSENTIAL 07/14/2011 783.5 Polydipsia 07/14/2011 V18.0 FAMILY HISTORY OF DIABETES MELLITUS 07/14/2011 DIMPLE PEÑALOZA DO 401.1 HYPERTENSION, BENIGN ESSENTIAL 07/14/2011 DIMPLE PEÑALOZA DO 783.5 POLYDIPSIA 07/14/2011 DIMPLE PEÑALOZA DO K V18.0 FAMILY HISTORY OF DIABETES MELLITUS 07/14/2011 TEOFILO FELICIANO MD 401.1 HYPERTENSION, BENIGN ESSENTIAL 07/14/2011 TEOFILO FELICIANO MD 783.5 Polydipsia 07/14/2011 TEOFILO FELICIANO MD V18.0 FAMILY HISTORY OF DIABETES MELLITUS 07/14/2011 DIMPLE PEÑALOZA DO 401.1 HYPERTENSION, BENIGN ESSENTIAL 07/14/2011 DIMPLE PEÑALOZA DO K 783.5 Polydipsia 07/14/2011 DIMPLE PEÑALOZA DO K V18.0 FAMILY HISTORY OF DIABETES MELLITUS 07/14/2011 MANAV GIBSON APRN 401.1 HYPERTENSION, BENIGN ESSENTIAL 07/14/2011 PAIGE HECK MANAV LONG 783.5 Polydipsia 07/14/2011 PAIGE HECK MANAV LONG V18.0 FAMILY HISTORY OF DIABETES MELLITUS 07/14/2011 MAU NAVARRO APRN A 401.1 HYPERTENSION, BENIGN ESSENTIAL 07/14/2011 RAMON CIRCUS ROUSTABOUT, MAU A 783.5 Polydipsia 07/14/2011 RAMON HECK, MAU A V18.0 FAMILY HISTORY OF DIABETES MELLITUS 07/14/2011 GIBSON CIRCUS ROUSTABOUT, MANAV ALVES 401.1 HYPERTENSION, BENIGN ESSENTIAL 07/14/2011 PAIGE FARRELLNMANAV 783.5 Polydipsia 07/14/2011 PAIGE FARRELLNMANAV V18.0 FAMILY HISTORY OF DIABETES MELLITUS 07/14/2011 WENDI BLACK MD 401.1 HYPERTENSION, BENIGN ESSENTIAL 07/14/2011 WENDI BLACK MD 783.5 Polydipsia 07/14/2011 WENDI BLACK MD V18.0 FAMILY HISTORY OF DIABETES MELLITUS 07/14/2011 WENDI BLACK MD 401.1 HYPERTENSION, BENIGN ESSENTIAL 07/14/2011 WENDI BLACK MD 783.5 Polydipsia 07/14/2011 WENDI BLACK MD V18.0 FAMILY HISTORY OF DIABETES MELLITUS 07/14/2011 DIMPLE PEÑALOZA DO K 401.1 HYPERTENSION, BENIGN ESSENTIAL 07/14/2011 AQUILES PEÑALOZA DOA K 783.5 Polydipsia 07/14/2011 AQUILES PEÑALOZA DOA K V18.0 FAMILY HISTORY OF DIABETES MELLITUS 07/14/2011 GIBSON CIRCUS ROUSTABOUT, MANAV ALVES 401.1 HYPERTENSION, BENIGN ESSENTIAL 07/14/2011 PAIGE FARRELLCresencio MANAV ALVES 783.5 Polydipsia 07/14/2011 PAIGE FARRELLNMANAV V18.0 FAMILY HISTORY OF DIABETES MELLITUS 07/14/2011 DIMPLE PEÑALOZA DO K 401.1 HYPERTENSION, BENIGN ESSENTIAL 07/14/2011 AQUILES PEÑALOZA DOA K 783.5 Polydipsia 07/14/2011 AQUILES PEÑALOZA DOA K V18.0 FAMILY HISTORY OF DIABETES MELLITUS 07/14/2011 WENDI BLACK MD 401.1 HYPERTENSION, BENIGN ESSENTIAL 07/14/2011 WENDI BLACK MD 783.5 Polydipsia 07/14/2011 WENDI BLACK MD V18.0 FAMILY HISTORY OF DIABETES MELLITUS 07/14/2011 WENDI BLACK MD 401.1 HYPERTENSION, BENIGN ESSENTIAL 07/14/2011 WENDI BLACK MD 783.5 Polydipsia 07/14/2011 WENDI BLACK MD N V18.0 FAMILY HISTORY OF DIABETES MELLITUS 07/14/2011 TIN HEREDIA PSYD L 401.1 HYPERTENSION, BENIGN ESSENTIAL 07/14/2011 TIN HEREDIA PSYD L 783.5 Polydipsia 07/14/2011 TIN HEREDIA PSYD L V18.0 FAMILY HISTORY OF DIABETES MELLITUS 07/14/2011 WENDI BLACK MD N 401.1 HYPERTENSION, BENIGN ESSENTIAL 07/14/2011 WENDI BLACK MD N 783.5 Polydipsia 07/14/2011 WENDI BLACK MD N V18.0 FAMILY HISTORY OF DIABETES MELLITUS 07/14/2011 WENDI BLACK MD N 401.1 HYPERTENSION, BENIGN ESSENTIAL 07/14/2011 WENDI BLACK MD N 783.5 Polydipsia 07/14/2011 WENDI BLACK MD N V18.0 FAMILY HISTORY OF DIABETES MELLITUS 07/14/2011 CHRISTEL DOT ETCHER APPRENTICE, CARLOS M 401.1 HYPERTENSION, BENIGN ESSENTIAL 07/14/2011 CHRISTEL DOT ETCHER APPRENTICE, CARLOS M 783.5 Polydipsia 07/14/2011 CHRISTEL DOT ETCHER APPRENTICE, CARLOS M V18.0 FAMILY HISTORY OF DIABETES MELLITUS 07/14/2011 CHRISTEL DOT ETCHER APPRENTICE, CARLOS M 401.1 HYPERTENSION, BENIGN ESSENTIAL 07/14/2011 CHRISTEL DOT ETCHER APPRENTICE, CARLOS M 783.5 Polydipsia 07/14/2011 CHRISTEL DOT ETCHER APPRENTICE, CARLOS M V18.0 FAMILY HISTORY OF DIABETES MELLITUS 07/14/2011 CHRISTEL DOT ETCHER APPRENTICE, CARLOS M 401.1 HYPERTENSION, BENIGN ESSENTIAL 07/14/2011 CHRISTEL DOT ETCHER APPRENTICE, CARLOS M 783.5 Polydipsia 07/14/2011 CHRISTEL DOT ETCHER APPRENTICE, CARLOS M V18.0 FAMILY HISTORY OF DIABETES MELLITUS 07/14/2011 CHRISTEL DOT ETCHER APPRENTICE, CARLOS M 401.1 HYPERTENSION, BENIGN ESSENTIAL 07/14/2011 CHRISTEL DOT ETCHER APPRENTICE, CARLOS M 783.5 Polydipsia 07/14/2011 CHRISTEL DOT ETCHER APPRENTICE, CARLOS M V18.0 FAMILY HISTORY OF DIABETES MELLITUS 07/16/2011 272.4 HYPERLIPIDEMIA 07/16/2011 272.4 HYPERLIPIDEMIA 07/16/2011 272.4 HYPERLIPIDEMIA 07/16/2011 MANAV GIBSON APRN 272.4 HYPERLIPIDEMIA 07/16/2011 MANAV GIBSON APRNH 272.4 HYPERLIPIDEMIA 07/16/2011 272.4 HYPERLIPIDEMIA 07/16/2011 PEÑALOZA DO, DIMPLE K 272.4 HYPERLIPIDEMIA 07/16/2011 272.4 HYPERLIPIDEMIA 07/16/2011 272.4 HYPERLIPIDEMIA 07/16/2011 272.4 HYPERLIPIDEMIA 07/16/2011 PEÑALOZA DO, DIMPLE K 272.4 HYPERLIPIDEMIA 07/16/2011 TEOFILO FELICIANO MD M 272.4 HYPERLIPIDEMIA 07/16/2011 PEÑALOZA DO, DIMPLE K 272.4 HYPERLIPIDEMIA 07/16/2011 PAIGE HECK MANAV ALVES 272.4 HYPERLIPIDEMIA 07/16/2011 RAMONMARGARETH HECK, MAU A 272.4 HYPERLIPIDEMIA 07/16/2011 PAIGE HECK, MANAV ALVES 272.4 HYPERLIPIDEMIA 07/16/2011 SOFIA RICE, WENDI N 272.4 HYPERLIPIDEMIA 07/16/2011 SOFIA RICE, WENDI N 272.4 HYPERLIPIDEMIA 07/16/2011 PEÑALOZA DO DIMPLE K 272.4 HYPERLIPIDEMIA 07/16/2011 PAIGE HECK MANAV WHITEH 272.4 HYPERLIPIDEMIA 07/16/2011 PEÑALOZA DO, DIMPLE K 272.4 HYPERLIPIDEMIA 07/16/2011 SOFIA RICE, WENDI N 272.4 HYPERLIPIDEMIA 07/16/2011 SOFIA RICE, WENDI N 272.4 HYPERLIPIDEMIA 07/16/2011 TIN HEREDIA PSYD 272.4 HYPERLIPIDEMIA 07/16/2011 SOFIA RICE, WENDI N 272.4 HYPERLIPIDEMIA 07/16/2011 SOFIA RICE, WENDI N 272.4 HYPERLIPIDEMIA 07/16/2011 CHRISTEL SALAZAR, CARLOS M 272.4 HYPERLIPIDEMIA 07/16/2011 CHRISTEL DOT ETCHER APPRENTICE, CARLOS M 272.4 HYPERLIPIDEMIA 07/16/2011 CHRISTEL DOT ETCHER APPRENTICE, CARLOS M 272.4 HYPERLIPIDEMIA 07/16/2011 CHRISTEL DOT ETCHER APPRENTICE, CARLOS M 272.4 HYPERLIPIDEMIA 11/15/2011 054.10 GENITAL HERPES UNSPECIFIED 11/15/2011 054.10 GENITAL HERPES UNSPECIFIED 11/15/2011 054.10 GENITAL HERPES UNSPECIFIED 11/15/2011 PAIGE HECK MANAV WHITEH 054.10 GENITAL HERPES UNSPECIFIED 11/15/2011 PAIGE HECK MANAV LONG 054.10 GENITAL HERPES UNSPECIFIED 11/15/2011 054.10 GENITAL HERPES UNSPECIFIED 11/15/2011 PEÑALOZA AQUILES YEPEZA K 054.10 GENITAL HERPES UNSPECIFIED 11/15/2011 054.10 GENITAL HERPES UNSPECIFIED 11/15/2011 054.10 GENITAL HERPES UNSPECIFIED 11/15/2011 054.10 GENITAL HERPES UNSPECIFIED 11/15/2011 JH YEPEZDIMPLE K 054.10 GENITAL HERPES UNSPECIFIED 11/15/2011 TEOFILO FELICIANO MD 054.10 GENITAL HERPES UNSPECIFIED 11/15/2011 JH YEPEZDIMPLE K 054.10 GENITAL HERPES UNSPECIFIED 11/15/2011 PAIGE HECK MANAV LONG 054.10 GENITAL HERPES UNSPECIFIED 11/15/2011 MAU NAVARRO APRN 054.10 GENITAL HERPES UNSPECIFIED 11/15/2011 PAIGE HECK MANAV LONG 054.10 GENITAL HERPES UNSPECIFIED 11/15/2011 WENDI BLACK MD N 054.10 GENITAL HERPES UNSPECIFIED 11/15/2011 WENDI BLACK MD N 054.10 GENITAL HERPES UNSPECIFIED 11/15/2011 PEÑALOZA DIMPLE YEPEZ 054.10 GENITAL HERPES UNSPECIFIED 11/15/2011 PAIGE HECK MANAV LONG 054.10 GENITAL HERPES UNSPECIFIED 11/15/2011 PEÑALOZA DIMPLE YEPEZ K 054.10 GENITAL HERPES UNSPECIFIED 11/15/2011 WENDI BLACK MD N 054.10 GENITAL HERPES UNSPECIFIED 11/15/2011 WENDI BLACK MD N 054.10 GENITAL HERPES UNSPECIFIED 11/15/2011 YAN ROACH, TIN Ríos 054.10 GENITAL HERPES UNSPECIFIED 11/15/2011 WENDI BLACK MD N 054.10 GENITAL HERPES UNSPECIFIED 11/15/2011 WENDI BLACK MD N 054.10 GENITAL HERPES UNSPECIFIED 11/15/2011 CARLOS AHUJA 054.10 GENITAL HERPES UNSPECIFIED 11/15/2011 CARLOS AHUJA 054.10 GENITAL HERPES UNSPECIFIED 11/15/2011 CARLOS AHUJA 054.10 GENITAL HERPES UNSPECIFIED 11/15/2011 CARLOS AHUJA 054.10 GENITAL HERPES UNSPECIFIED 03/27/2012 786.05 SHORTNESS OF BREATH 03/27/2012 786.50 CHEST PAIN 03/27/2012 787.02 NAUSEA ALONE 03/27/2012 786.05 SHORTNESS OF BREATH 03/27/2012 786.50 CHEST PAIN 03/27/2012 787.02 NAUSEA ALONE 03/27/2012 786.05 SHORTNESS OF BREATH 03/27/2012 786.50 CHEST PAIN 03/27/2012 787.02 NAUSEA ALONE 03/27/2012 MANAV GIBSON APRN 786.05 SHORTNESS OF BREATH 03/27/2012 MANAV GIBSON APRN 786.50 CHEST PAIN 03/27/2012 GIBSON CIRCUS ROUSTABOUT, MANAV ALVES 787.02 NAUSEA ALONE 03/27/2012 PAIGE HECK, MANAV ALVES 786.05 SHORTNESS OF BREATH 03/27/2012 MANAV GIBSON APRN 786.50 CHEST PAIN 03/27/2012 MANAV GIBSON APRN 787.02 NAUSEA ALONE 03/27/2012 786.05 Shortness Of Breath 03/27/2012 786.50 Chest Pain 03/27/2012 787.02 Nausea Alone 03/27/2012 PEÑALOZA DO, DIMPLE K 786.05 Shortness Of Breath 03/27/2012 PEÑALOZA DO, DIMPLE K 786.50 Chest Pain 03/27/2012 PEÑALOZA DO, DIMPLE K 787.02 Nausea Alone 03/27/2012 786.05 Shortness Of Breath 03/27/2012 786.50 Chest Pain 03/27/2012 787.02 Nausea Alone 03/27/2012 786.05 Shortness Of Breath 03/27/2012 786.50 Chest Pain 03/27/2012 787.02 Nausea Alone 03/27/2012 786.05 Shortness Of Breath 03/27/2012 786.50 Chest Pain 03/27/2012 787.02 Nausea Alone 03/27/2012 PEÑALOZA DO, DIMPLE K 786.05 SHORTNESS OF BREATH 03/27/2012 PEÑALOZA DO, DIMPLE K 786.50 CHEST PAIN 03/27/2012 PEÑALOZA DO, DIMPLE K 787.02 NAUSEA ALONE 03/27/2012 TEOFILO FELICIANO MD 786.05 Shortness Of Breath 03/27/2012 TEOFILO FELICIANO MD 786.50 Chest Pain 03/27/2012 TEOFILO FELICIANO MD 787.02 Nausea Alone 03/27/2012 PEÑALOZA DO, DIMPLE K 786.05 Shortness Of Breath 03/27/2012 PEÑALOZA DO, DIMPLE K 786.50 Chest Pain 03/27/2012 PEÑALOZA DO, DIMPLE K 787.02 Nausea Alone 03/27/2012 GIBSON CIRCUS ROUSTABOUT, MANAV ALVES 786.05 Shortness Of Breath 03/27/2012 GIBSON CIRCUS ROUSTABOUT, MANAV ALVES 786.50 Chest Pain 03/27/2012 GIBSON CIRCUS ROUSTABOUT, MANAV ALVES 787.02 Nausea Alone 03/27/2012 RAMON CIRCUS ROUSTABOUT, MAU A 786.05 Shortness Of Breath 03/27/2012 RAMON CIRCUS ROUSTABOUT, MAU A 786.50 Chest Pain 03/27/2012 RAMON CIRCUS ROUSTABOUT, MAU A 787.02 Nausea Alone 03/27/2012 GIBSON CIRCUS ROUSTABOUTMANAV 786.05 Shortness Of Breath 03/27/2012 GIBSON CIRCUS ROUSTABOUT, MANAV ALVES 786.50 Chest Pain 03/27/2012 GIBSON CIRCUS ROUSTABOUTMANAV 787.02 Nausea Alone 03/27/2012 WENDI BLACK MD N 786.05 Shortness Of Breath 03/27/2012 WENDI BLACK MD N 786.50 Chest Pain 03/27/2012 WENDI BLACK MD N 787.02 Nausea Alone 03/27/2012 WENDI BLACK MD N 786.05 Shortness Of Breath 03/27/2012 WENDI BLACK MD N 786.50 Chest Pain 03/27/2012 WENDI BLACK MD N 787.02 Nausea Alone 03/27/2012 PEÑALOZA DO, DIMPLE K 786.05 Shortness Of Breath 03/27/2012 PEÑALOZA DO, DIMPLE K 786.50 Chest Pain 03/27/2012 PEÑALOZA DO, DIMPLE K 787.02 Nausea Alone 03/27/2012 GIBSON CIRCUS ROUSTABOUTMANAV 786.05 Shortness Of Breath 03/27/2012 GIBSON CIRCUS ROUSTABOUT, MANAV ALVES 786.50 Chest Pain 03/27/2012 GIBSON CIRCUS ROUSTABOUT, MANAV WHITEH 787.02 Nausea Alone 03/27/2012 PEÑALOZA DO, DIMPLE K 786.05 Shortness Of Breath 03/27/2012 PEÑALOZA DO, DIMPLE K 786.50 Chest Pain 03/27/2012 PEÑALOZA DO, DIMPLE K 787.02 Nausea Alone 03/27/2012 WENDI BLACK MD N 786.05 Shortness Of Breath 03/27/2012 WENDI BLACK MD N 786.50 Chest Pain 03/27/2012 WENDI BLACK MD N 787.02 Nausea Alone 03/27/2012 WENDI BLACK MD N 786.05 Shortness Of Breath 03/27/2012 WENDI BLACK MD N 786.50 Chest Pain 03/27/2012 WENDI BLACK MD N 787.02 Nausea Alone 03/27/2012 TIN HEREDIA PSYD ANN L 786.05 Shortness Of Breath 03/27/2012 TIN HEREDIA PSYD ANN L 786.50 Chest Pain 03/27/2012 TIN HEREDIA PSYD ANN L 787.02 Nausea Alone 03/27/2012 WENDI BLACK MD N 786.05 Shortness Of Breath 03/27/2012 WENDI BLACK MD N 786.50 Chest Pain 03/27/2012 WENDI BLACK MD N 787.02 Nausea Alone 03/27/2012 WENDI BLACK MD N 786.05 Shortness Of Breath 03/27/2012 WENDI BLACK MD N 786.50 Chest Pain 03/27/2012 WENDI BLACK MD N 787.02 Nausea Alone 03/27/2012 CHRISTEL DOT ETCHER APPRENTICE, CARLOS M 786.05 Shortness Of Breath 03/27/2012 CHRISTEL DOT ETCHER APPRENTICE, CARLOS M 786.50 Chest Pain 03/27/2012 CHRISTEL DOT ETCHER APPRENTICE, CARLOS M 787.02 Nausea Alone 03/27/2012 CHRISTEL DOT ETCHER APPRENTICE, CARLOS M 786.05 Shortness Of Breath 03/27/2012 CHRISTEL DOT ETCHER APPRENTICE, CARLOS M 786.50 Chest Pain 03/27/2012 CHRISTEL DOT ETCHER APPRENTICE, CARLOS M 787.02 Nausea Alone 03/27/2012 CHRISTEL DOT ETCHER APPRENTICE, CARLOS M 786.05 Shortness Of Breath 03/27/2012 CHRISTEL DOT ETCHER APPRENTICE, CARLOS M 786.50 Chest Pain 03/27/2012 CHRISTEL DOT ETCHER APPRENTICE, CARLOS M 787.02 Nausea Alone 03/27/2012 CHRISTEL DOT ETCHER APPRENTICE, CARLOS M 786.05 Shortness Of Breath 03/27/2012 CHRISTEL DOT ETCHER APPRENTICE, CARLOS M 786.50 Chest Pain 03/27/2012 CHRISTEL DOT ETCHER APPRENTICE, CARLOS M 787.02 Nausea Alone 06/21/2012 MANAV GIBSON APRN 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 06/21/2012 PAIGE FARRELLNMANAV 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 06/21/2012 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 06/21/2012 DIMPLE PEÑALOZA DO K 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 06/21/2012 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 06/21/2012 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 06/21/2012 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 06/21/2012 TEOFILO FELICIANO MD 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 06/21/2012 DIMPLE PEÑALOZA DO K 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 06/21/2012 PAIGE FARRELLNMANAV 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 06/21/2012 RAMONMARGARETH HECK MAU A 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 06/21/2012 PAIGE FARRELLN, MANAV ALVES 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 06/21/2012 WENDI BLACK MD 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 06/21/2012 WENDI BLACK MD N 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 06/21/2012 DIMPLE PEÑALOZA DO K 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 06/21/2012 GIBSON UMANGMANAV 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 06/21/2012 AQUILES PEÑALOZA DOA K 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 06/21/2012 WENDI BLACK MD N 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 06/21/2012 WENDI BLACK MD 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 06/21/2012 TIN HEREDIA PSYD 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 06/21/2012 WENDI BLACK MD N 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 06/21/2012 WENDI BLACK MD N 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 06/21/2012 CARLOS AHUJA M 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 06/21/2012 CARLOS AHUJA 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 06/21/2012 CARLOS AHUJA M 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 06/21/2012 CARLOS AHUJA M 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 08/24/2012 214.1 LIPOMA OF OTHER SKIN AND SUBCUTANEOUS TISSUE 08/24/2012 DIMPLE PEÑALOZA DO 214.1 LIPOMA OF OTHER SKIN AND SUBCUTANEOUS TISSUE 08/24/2012 214.1 LIPOMA OF OTHER SKIN AND SUBCUTANEOUS TISSUE 08/24/2012 214.1 LIPOMA OF OTHER SKIN AND SUBCUTANEOUS TISSUE 08/24/2012 214.1 LIPOMA OF OTHER SKIN AND SUBCUTANEOUS TISSUE 08/24/2012 TEOFILO FELICIANO MD 214.1 LIPOMA OF OTHER SKIN AND SUBCUTANEOUS TISSUE 08/24/2012 DIMPLE PEÑALOZA DO 214.1 LIPOMA OF OTHER SKIN AND SUBCUTANEOUS TISSUE 08/24/2012 MANAV GIBSON APRN 214.1 LIPOMA OF OTHER SKIN AND SUBCUTANEOUS TISSUE 08/24/2012 MAU NAVARRO APRN A 214.1 LIPOMA OF OTHER SKIN AND SUBCUTANEOUS TISSUE 08/24/2012 MANAV GIBSON APRN 214.1 LIPOMA OF OTHER SKIN AND SUBCUTANEOUS TISSUE 08/24/2012 WENDI BLACK MD 214.1 LIPOMA OF OTHER SKIN AND SUBCUTANEOUS TISSUE 08/24/2012 WENDI BLACK MD 214.1 LIPOMA OF OTHER SKIN AND SUBCUTANEOUS TISSUE 08/24/2012 DIMPLE PEÑALOZA DO 214.1 LIPOMA OF OTHER SKIN AND SUBCUTANEOUS TISSUE 08/24/2012 MANAV GIBSON APRN 214.1 LIPOMA OF OTHER SKIN AND SUBCUTANEOUS TISSUE 08/24/2012 DIMPLE PEÑALOZA DO 214.1 LIPOMA OF OTHER SKIN AND SUBCUTANEOUS TISSUE 08/24/2012 WENDI BLACK MD 214.1 LIPOMA OF OTHER SKIN AND SUBCUTANEOUS TISSUE 08/24/2012 WENDI BLACK MD 214.1 LIPOMA OF OTHER SKIN AND SUBCUTANEOUS TISSUE 08/24/2012 TIN HEREDIA PSYD 214.1 LIPOMA OF OTHER SKIN AND SUBCUTANEOUS TISSUE 08/24/2012 WENDI BLACK MD 214.1 LIPOMA OF OTHER SKIN AND SUBCUTANEOUS TISSUE 08/24/2012 WENDI BLACK MD 214.1 LIPOMA OF OTHER SKIN AND SUBCUTANEOUS TISSUE 08/24/2012 CARLOS AHUJA 214.1 LIPOMA OF OTHER SKIN AND SUBCUTANEOUS TISSUE 08/24/2012 CARLOS AHUJA 214.1 LIPOMA OF OTHER SKIN AND SUBCUTANEOUS TISSUE 08/24/2012 CARLOS AHUJA 214.1 LIPOMA OF OTHER SKIN AND SUBCUTANEOUS TISSUE 08/24/2012 CARLOS AHUJA 214.1 LIPOMA OF OTHER SKIN AND SUBCUTANEOUS TISSUE 09/04/2012 JH YEPEZ DIMPLE K 466.0 BRONCHITIS, ACUTE 09/04/2012 466.0 BRONCHITIS, ACUTE 09/04/2012 466.0 BRONCHITIS, ACUTE 09/04/2012 466.0 BRONCHITIS, ACUTE 09/04/2012 TEOFILO FELICIANO MD 466.0 BRONCHITIS, ACUTE 09/04/2012 DIMPLE PEÑALOZA DO K 466.0 BRONCHITIS, ACUTE 09/04/2012 PAIGE HECK MANAV WHITEH 466.0 BRONCHITIS, ACUTE 09/04/2012 RAMON HECK, MAU A 466.0 BRONCHITIS, ACUTE 09/04/2012 PAIGE HECK MANAV LONG 466.0 BRONCHITIS, ACUTE 09/04/2012 WENDI BLACK MD N 466.0 BRONCHITIS, ACUTE 09/04/2012 WENDI BLACK MD N 466.0 BRONCHITIS, ACUTE 09/04/2012 AQUILES PEÑALOZA DOA K 466.0 BRONCHITIS, ACUTE 09/04/2012 PAIGE HECK MANAV LONG 466.0 BRONCHITIS, ACUTE 09/04/2012 DIMPLE PEÑALOZA DO K 466.0 BRONCHITIS, ACUTE 09/04/2012 WENDI BLACK MD N 466.0 BRONCHITIS, ACUTE 09/04/2012 SOFIA RICE, WENDI N 466.0 BRONCHITIS, ACUTE 09/04/2012 TIN HEREDIA PSYD 466.0 BRONCHITIS, ACUTE 09/04/2012 WENDI BLACK MD N 466.0 BRONCHITIS, ACUTE 09/04/2012 WENDI BLACK MD N 466.0 BRONCHITIS, ACUTE 09/04/2012 CARLOS AHUJA 466.0 BRONCHITIS, ACUTE 09/04/2012 CARLOS AHUJA 466.0 BRONCHITIS, ACUTE 09/04/2012 CARLOS AHUJA 466.0 BRONCHITIS, ACUTE 09/04/2012 CARLOS AHUJA 466.0 BRONCHITIS, ACUTE 10/30/2012 782.3 EDEMA 10/30/2012 782.3 EDEMA 10/30/2012 TEOFILO FELICIANO MD 782.3 EDEMA 10/30/2012 DIMPLE PEÑALOZA DO K 782.3 EDEMA 10/30/2012 PAIGE HECK MANAV LONG 782.3 EDEMA 10/30/2012 MAU NAVARRO APRN A 782.3 EDEMA 10/30/2012 PAIGE HECK MANAV WHITEH 782.3 EDEMA 10/30/2012 SOFIA RICE, WENDI N 782.3 EDEMA 10/30/2012 SOFIA RICE, WENDI N 782.3 EDEMA 10/30/2012 DIMPLE PEÑALOZA DO K 782.3 EDEMA 10/30/2012 PAIGE HECK MANAV LONG 782.3 EDEMA 10/30/2012 PEÑALOZA DIMPLE YEPEZ K 782.3 EDEMA 10/30/2012 SOFIA RICE, WENDI N 782.3 EDEMA 10/30/2012 SOFIA RICE, WENDI N 782.3 EDEMA 10/30/2012 TIN HEREDIA PSYD 782.3 EDEMA 10/30/2012 SOFIA RICE, WENDI N 782.3 EDEMA 10/30/2012 SOFIA RICE, WENDI N 782.3 EDEMA 10/30/2012 CHRISTEL DOT ETCHER APPRENTICE, CARLOS M 782.3 EDEMA 10/30/2012 CHRISTEL DOT ETCHER APPRENTICE, CARLOS M 782.3 EDEMA 10/30/2012 CHRISTEL DOT ETCHER APPRENTICE, CARLOS M 782.3 EDEMA 10/30/2012 CHRISTEL DOT ETCHER APPRENTICE, CARLOS M 782.3 EDEMA 11/07/2012 008.8 GASTROENTERITIS, VIRAL 11/07/2012 TEOFILO FELICIANO MD 008.8 GASTROENTERITIS, VIRAL 11/07/2012 DIMPLE PEÑALOZA DO 008.8 GASTROENTERITIS, VIRAL 11/07/2012 PAIGE HECK MANAV LONG 008.8 GASTROENTERITIS, VIRAL 11/07/2012 MAU NAVARRO APRN A 008.8 GASTROENTERITIS, VIRAL 11/07/2012 PAIGE HECK MANAV LONG 008.8 GASTROENTERITIS, VIRAL 11/07/2012 WENDI BLACK MD N 008.8 GASTROENTERITIS, VIRAL 11/07/2012 WENDI BLACK MD 008.8 GASTROENTERITIS, VIRAL 11/07/2012 DIMPLE PEÑALOZA DO 008.8 GASTROENTERITIS, VIRAL 11/07/2012 PAIGE HECK MANAV LONG 008.8 GASTROENTERITIS, VIRAL 11/07/2012 DIMPLE PEÑALOZA DO K 008.8 GASTROENTERITIS, VIRAL 11/07/2012 WENDI BLACK MD 008.8 GASTROENTERITIS, VIRAL 11/07/2012 WENDI BLACK MD 008.8 GASTROENTERITIS, VIRAL 11/07/2012 TIN HEREDIA PSYD 008.8 GASTROENTERITIS, VIRAL 11/07/2012 WENDI BLACK MD 008.8 GASTROENTERITIS, VIRAL 11/07/2012 WENDI BLACK MD N 008.8 GASTROENTERITIS, VIRAL 11/07/2012 CHRISTEL SALAZAR, CARLOS M 008.8 GASTROENTERITIS, VIRAL 11/07/2012 CHRISTEL SALAZAR, CARLOS M 008.8 GASTROENTERITIS, VIRAL 11/07/2012 CHRISTEL DOT ETCHER APPRENTICE, CARLOS M 008.8 GASTROENTERITIS, VIRAL 11/07/2012 CHRISTEL SALAZAR, CARLOS M 008.8 GASTROENTERITIS, VIRAL 03/08/2013 TEOFILO FELICIANO MD 728.87 MUSCLE WEAKNESS (GENERALIZED) 03/08/2013 DIPMLE PEAÑLOZA DO 728.87 MUSCLE WEAKNESS (GENERALIZED) 03/08/2013 MANAV GIBSON APRN 728.87 MUSCLE WEAKNESS (GENERALIZED) 03/08/2013 MAU NAVARRO APRN 728.87 MUSCLE WEAKNESS (GENERALIZED) 03/08/2013 MANAV GIBSON APRN 728.87 MUSCLE WEAKNESS (GENERALIZED) 03/08/2013 WENDI BLACK MD 728.87 MUSCLE WEAKNESS (GENERALIZED) 03/08/2013 WENDI BLACK MD 728.87 MUSCLE WEAKNESS (GENERALIZED) 03/08/2013 DIMPLE PEÑALOZA DO 728.87 MUSCLE WEAKNESS (GENERALIZED) 03/08/2013 MANAV GIBSON APRN 728.87 MUSCLE WEAKNESS (GENERALIZED) 03/08/2013 DIMPLE PEÑALOZA DO 728.87 MUSCLE WEAKNESS (GENERALIZED) 03/08/2013 WENDI BLACK MD 728.87 MUSCLE WEAKNESS (GENERALIZED) 03/08/2013 WENDI BLACK MD 728.87 MUSCLE WEAKNESS (GENERALIZED) 03/08/2013 TIN HEREDIA PSYD 728.87 MUSCLE WEAKNESS (GENERALIZED) 03/08/2013 WENDI BLACK MD 728.87 MUSCLE WEAKNESS (GENERALIZED) 03/08/2013 WENDI BLACK MD 728.87 MUSCLE WEAKNESS (GENERALIZED) 03/08/2013 CARLOS AHUJA 728.87 MUSCLE WEAKNESS (GENERALIZED) 03/08/2013 CARLOS AHUJA 728.87 MUSCLE WEAKNESS (GENERALIZED) 03/08/2013 CHRISTEL SALAZAR, CARLOS M 728.87 MUSCLE WEAKNESS (GENERALIZED) 03/08/2013 CHRISTEL SALAZAR, CARLOS M 728.87 MUSCLE WEAKNESS (GENERALIZED) 04/26/2013 AQUILES PEÑALOZA DOA K 599.0 URINARY TRACT INFECTION 04/26/2013 PAIGE HECK MANAV ALVES 599.0 URINARY TRACT INFECTION 04/26/2013 MILADY NAVARRO APRNIDI A 599.0 URINARY TRACT INFECTION 04/26/2013 PAIGE HECK MANAV ALVES 599.0 URINARY TRACT INFECTION 04/26/2013 WENDI BLACK MD N 599.0 URINARY TRACT INFECTION 04/26/2013 WENDI BLACK MD N 599.0 URINARY TRACT INFECTION 04/26/2013 AQUILES PEÑALOZA DOA K 599.0 URINARY TRACT INFECTION 04/26/2013 PAIGE HECK MANAV WHITEH 599.0 URINARY TRACT INFECTION 04/26/2013 JH YEPEZ DIMPLE K 599.0 URINARY TRACT INFECTION 04/26/2013 WENDI BLACK MD N 599.0 URINARY TRACT INFECTION 04/26/2013 WENDI BLACK MD N 599.0 URINARY TRACT INFECTION 04/26/2013 TIN HEREDIA PSYD 599.0 URINARY TRACT INFECTION 04/26/2013 WENDI BLACK MD N 599.0 URINARY TRACT INFECTION 04/26/2013 WENDI BLACK MD N 599.0 URINARY TRACT INFECTION 04/26/2013 CARLOS AHUJA M 599.0 URINARY TRACT INFECTION 04/26/2013 CARLOS AHUJA M 599.0 URINARY TRACT INFECTION 04/26/2013 CARLOS AHUJA M 599.0 URINARY TRACT INFECTION 04/26/2013 CHRISTEL SALAZAR, CARLOS M 599.0 URINARY TRACT INFECTION 09/27/2013 MAU NAVARRO APRN A 388.70 OTALGIA UNSPECIFIED 09/27/2013 RAMON HECK MAU A 786.2 COUGH 09/27/2013 PAIGE HECK MANAV ALVES 388.70 OTALGIA UNSPECIFIED 09/27/2013 PAIGE HECK MANAV ALVES 786.2 COUGH 09/27/2013 WENDI BLACK MD N 388.70 OTALGIA UNSPECIFIED 09/27/2013 WENDI BLACK MD N 786.2 COUGH 09/27/2013 WENDI BLACK MD N 388.70 OTALGIA UNSPECIFIED 09/27/2013 WENDI BLACK MD N 786.2 COUGH 09/27/2013 PEÑALOZA DO, DIMPLE K 388.70 OTALGIA UNSPECIFIED 09/27/2013 PEÑALOZA DO, DIMPLE K 786.2 COUGH 09/27/2013 PAIGE HECK MANAV ALVES 388.70 OTALGIA UNSPECIFIED 09/27/2013 PAIGE HECK MANAV ALVES 786.2 COUGH 09/27/2013 PEÑALOZA DO, DIMPLE K 388.70 OTALGIA UNSPECIFIED 09/27/2013 PEÑALOZA DO, DIMPLE K 786.2 COUGH 09/27/2013 WENDI BLACK MD N 388.70 OTALGIA UNSPECIFIED 09/27/2013 WENDI BLACK MD N 786.2 COUGH 09/27/2013 WENDI BLACK MD N 388.70 OTALGIA UNSPECIFIED 09/27/2013 WENDI BLACK MD N 786.2 COUGH 09/27/2013 TIN HEREDIA PSYD 388.70 OTALGIA UNSPECIFIED 09/27/2013 TIN HEREDIA PSYD 786.2 COUGH 09/27/2013 WENDI BLACK MD N 388.70 OTALGIA UNSPECIFIED 09/27/2013 WENDI BLACK MD N 786.2 COUGH 09/27/2013 WENDI BLACK MD N 388.70 OTALGIA UNSPECIFIED 09/27/2013 WENDI BLACK MD N 786.2 COUGH 09/27/2013 CARLOS AHUJA 388.70 OTALGIA UNSPECIFIED 09/27/2013 CARLOS AHUJA M 786.2 COUGH 09/27/2013 CARLOS AHUJA M 388.70 OTALGIA UNSPECIFIED 09/27/2013 CARLOS AHUJA M 786.2 COUGH 09/27/2013 CARLOS AHUJA M 388.70 OTALGIA UNSPECIFIED 09/27/2013 CARLOS AHUJA M 786.2 COUGH 09/27/2013 CARLOS AHUJA M 388.70 OTALGIA UNSPECIFIED 09/27/2013 CARLOS AHUJA M 786.2 COUGH 10/02/2013 RAMONMAU Dupont APRN A V65.42 COUNSELING - SMOKING CESSATION 10/02/2013 RAMONMAU Dupont APRN A V74.5 STD SCREEN 10/02/2013 RAMONMAU Dupont APRN A V76.10 BREAST CANCER SCREENING 10/02/2013 PAIGE HECK MANAV ALVES V65.42 COUNSELING - SMOKING CESSATION 10/02/2013 PAIGE HECK MANAV ALVES V74.5 STD SCREEN 10/02/2013 PAIGE HECK MANAV ALVES V76.10 BREAST CANCER SCREENING 10/02/2013 WENDI BLACK MD V65.42 COUNSELING - SMOKING CESSATION 10/02/2013 WENDI BLACK MD V74.5 STD SCREEN 10/02/2013 WENDI BLACK MD V76.10 BREAST CANCER SCREENING 10/02/2013 WENDI BLACK MD V65.42 COUNSELING - SMOKING CESSATION 10/02/2013 WENDI BLACK MD V74.5 STD SCREEN 10/02/2013 WENDI BLACK MD V76.10 BREAST CANCER SCREENING 10/02/2013 AQUILES PEÑALOZA DOA K V65.42 COUNSELING - SMOKING CESSATION 10/02/2013 JH YEPEZ DIMPLE K V74.5 STD SCREEN 10/02/2013 JH YEPEZ DIMPLE K V76.10 BREAST CANCER SCREENING 10/02/2013 PAIGE HECK MANAV ALVES V65.42 COUNSELING - SMOKING CESSATION 10/02/2013 PAIGE HECK MANAV WHITEH V74.5 STD SCREEN 10/02/2013 PAIGE HECK MANAV LONG V76.10 BREAST CANCER SCREENING 10/02/2013 AQUILES PEÑALOZA DOA K V65.42 COUNSELING - SMOKING CESSATION 10/02/2013 JH YEPEZ DIMPLE K V74.5 STD SCREEN 10/02/2013 JH YEPEZ DIMPLE K V76.10 BREAST CANCER SCREENING 10/02/2013 WENDI BLACK MD V65.42 COUNSELING - SMOKING CESSATION 10/02/2013 WENDI BLACK MD V74.5 STD SCREEN 10/02/2013 WENDI BLACK MD V76.10 BREAST CANCER SCREENING 10/02/2013 WENDI BLACK MD V65.42 COUNSELING - SMOKING CESSATION 10/02/2013 WENDI BLACK MD N V74.5 STD SCREEN 10/02/2013 WENDI BLACK MD V76.10 BREAST CANCER SCREENING 10/02/2013 TIN HEREDIA PSYD V65.42 COUNSELING - SMOKING CESSATION 10/02/2013 TIN HEREDIA PSYD ANN L V74.5 STD SCREEN 10/02/2013 TIN HEREDIA PSYD L V76.10 BREAST CANCER SCREENING 10/02/2013 WENDI BLACK MD V65.42 COUNSELING - SMOKING CESSATION 10/02/2013 WENDI BLACK MD N V74.5 STD SCREEN 10/02/2013 WENDI BLACK MD V76.10 BREAST CANCER SCREENING 10/02/2013 WENDI BLACK MD V65.42 COUNSELING - SMOKING CESSATION 10/02/2013 WENDI BLACK MD N V74.5 STD SCREEN 10/02/2013 WENDI BLACK MD V76.10 BREAST CANCER SCREENING 10/02/2013 CHRISTEL DOT ETCHER APPRENTICE, CARLOS M V65.42 COUNSELING - SMOKING CESSATION 10/02/2013 CHRISTEL DOT ETCHER APPRENTICE, CARLOS M V74.5 STD SCREEN 10/02/2013 CHRISTEL DOT ETCHER APPRENTICE, CARLOS M V76.10 BREAST CANCER SCREENING 10/02/2013 CHRISTEL DOT ETCHER APPRENTICE, CARLOS M V65.42 COUNSELING - SMOKING CESSATION 10/02/2013 CHRISTEL DOT ETCHER APPRENTICE, CARLOS M V74.5 STD SCREEN 10/02/2013 CHRISTEL DOT ETCHER APPRENTICE, CARLOS M V76.10 BREAST CANCER SCREENING 10/02/2013 CHRISTEL DOT ETCHER APPRENTICE, CARLOS M V65.42 COUNSELING - SMOKING CESSATION 10/02/2013 CHRISTEL DOT ETCHER APPRENTICE, CARLOS M V74.5 STD SCREEN 10/02/2013 CHRISTEL DOT ETCHER APPRENTICE, CARLOS M V76.10 BREAST CANCER SCREENING 10/02/2013 CHRISTEL DOT ETCHER APPRENTICE, CARLOS M V65.42 COUNSELING - SMOKING CESSATION 10/02/2013 CHRISTEL DOT ETCHER APPRENTICE, CARLOS M V74.5 STD SCREEN 10/02/2013 CHRISTEL DOT ETCHER APPRENTICE, CARLOS M V76.10 BREAST CANCER SCREENING 01/01/2014 WENDI BLACK MD 307.42 PERSISTENT DISORDER OF INITIATING OR MAINTAINING SLEEP 01/01/2014 SOFIA MD, WENDI N 599.70 HEMATURIA UNSPECIFIED 01/01/2014 WENDI BLACK MD N 724.2 LUMBAGO 01/01/2014 WENDI BLACK MD N 307.42 PERSISTENT DISORDER OF INITIATING OR MAINTAINING SLEEP 01/01/2014 WENDI BLACK MD N 599.70 HEMATURIA UNSPECIFIED 01/01/2014 WENDI BLACK MD N 724.2 LUMBAGO 01/01/2014 JH YEPEZ DIMPLE K 307.42 PERSISTENT DISORDER OF INITIATING OR MAINTAINING SLEEP 01/01/2014 PEÑALOZA DO DIMPLE K 599.70 HEMATURIA UNSPECIFIED 01/01/2014 JH YEPEZ DIMPLE K 724.2 LUMBAGO 01/01/2014 PAIGE HECK MANAV ALVES 307.42 PERSISTENT DISORDER OF INITIATING OR MAINTAINING SLEEP 01/01/2014 PAIGE HECK MANAV ALVES 599.70 HEMATURIA UNSPECIFIED 01/01/2014 GIBSONERIN HECK MANAV ALVES 724.2 LUMBAGO 01/01/2014 PEÑALOZA DO DIMPLE K 307.42 PERSISTENT DISORDER OF INITIATING OR MAINTAINING SLEEP 01/01/2014 JH YEPEZ DIMPLE K 599.70 HEMATURIA UNSPECIFIED 01/01/2014 JH DO DIMPLE K 724.2 LUMBAGO 01/01/2014 WENDI BLACK MD N 307.42 PERSISTENT DISORDER OF INITIATING OR MAINTAINING SLEEP 01/01/2014 WENDI BLACK MD N 599.70 HEMATURIA UNSPECIFIED 01/01/2014 WENDI BLACK MD N 724.2 LUMBAGO 01/01/2014 WENDI BLACK MD N 307.42 PERSISTENT DISORDER OF INITIATING OR MAINTAINING SLEEP 01/01/2014 WENDI BLACK MD N 599.70 HEMATURIA UNSPECIFIED 01/01/2014 WENDI BLACK MD N 724.2 LUMBAGO 01/01/2014 TIN HEREDIA PSYD L 307.42 PERSISTENT DISORDER OF INITIATING OR MAINTAINING SLEEP 01/01/2014 TIN HEREDIA PSYD L 599.70 HEMATURIA UNSPECIFIED 01/01/2014 TIN HEREDIA PSYD L 724.2 LUMBAGO 01/01/2014 WENDI BLACK MD N 307.42 PERSISTENT DISORDER OF INITIATING OR MAINTAINING SLEEP 01/01/2014 WENDI BLACK MD N 599.70 HEMATURIA UNSPECIFIED 01/01/2014 WENDI BLACK MD N 724.2 LUMBAGO 01/01/2014 WENDI BLACK MD N 307.42 PERSISTENT DISORDER OF INITIATING OR MAINTAINING SLEEP 01/01/2014 WENDI BLACK MD N 599.70 HEMATURIA UNSPECIFIED 01/01/2014 WENDI BLACK MD N 724.2 LUMBAGO 01/01/2014 CARLOS AHUJA M 307.42 PERSISTENT DISORDER OF INITIATING OR MAINTAINING SLEEP 01/01/2014 CARLOS AHUJA M 599.70 HEMATURIA UNSPECIFIED 01/01/2014 CHRISTEL DOT ETCHER APPRENTICECARLOS M 724.2 LUMBAGO 01/01/2014 CARLOS AHUJA M 307.42 PERSISTENT DISORDER OF INITIATING OR MAINTAINING SLEEP 01/01/2014 CARLOS AHUJA M 599.70 HEMATURIA UNSPECIFIED 01/01/2014 CHRISTEL DOT ETCHER APPRENTICECARLOS M 724.2 LUMBAGO 01/01/2014 CARLOS AHUJA M 307.42 PERSISTENT DISORDER OF INITIATING OR MAINTAINING SLEEP 01/01/2014 CARLOS AHUJA M 599.70 HEMATURIA UNSPECIFIED 01/01/2014 CHRISTEL DOT ETCHER APPRENTICECARLOS M 724.2 LUMBAGO 01/01/2014 CHRISTEL DOT ETCHER APPRENTICECARLOS M 307.42 PERSISTENT DISORDER OF INITIATING OR MAINTAINING SLEEP 01/01/2014 CARLOS AHUJA M 599.70 HEMATURIA UNSPECIFIED 01/01/2014 CARLOS AHUJA M 724.2 LUMBAGO 02/17/2014 DIMPLE PEÑALOZA DO K 466.0 BRONCHITIS, ACUTE 02/17/2014 MANAV GIBSON APRN 466.0 BRONCHITIS, ACUTE 02/17/2014 PEÑALOZA AQUILES YEPEZA K 466.0 BRONCHITIS, ACUTE 02/17/2014 WENDI BLACK MD N 466.0 BRONCHITIS, ACUTE 02/17/2014 WENDI BLACK MD 466.0 BRONCHITIS, ACUTE 02/17/2014 TIN HEREDIA PSYD 466.0 BRONCHITIS, ACUTE 02/17/2014 WENDI BLACK MD N 466.0 BRONCHITIS, ACUTE 02/17/2014 WENDI BLACK MD N 466.0 BRONCHITIS, ACUTE 02/17/2014 CARLOS AHUJA M 466.0 BRONCHITIS, ACUTE 02/17/2014 CHRISTEL DOT ETCHER APPRENTICECARLOS M 466.0 BRONCHITIS, ACUTE 02/17/2014 CHRISTEL DOT ETCHER APPRENTICE, CARLOS M 466.0 BRONCHITIS, ACUTE 02/17/2014 CHRISTEL DOT ETCHER APPRENTICE, CARLOS M 466.0 BRONCHITIS, ACUTE 05/21/2014 WENDI BLACK MD N 388.70 OTALGIA UNSPECIFIED 05/21/2014 WENDI BLACK MD N 388.70 OTALGIA UNSPECIFIED 05/21/2014 TIN HEREDIA PSYD 388.70 OTALGIA UNSPECIFIED 05/21/2014 WENID BLACK MD N 388.70 OTALGIA UNSPECIFIED 05/21/2014 WENDI BLACK MD N 388.70 OTALGIA UNSPECIFIED 05/21/2014 CARLOS AHUJA M 388.70 OTALGIA UNSPECIFIED 05/21/2014 CARLOS AHUJA M 388.70 OTALGIA UNSPECIFIED 05/21/2014 CARLOS AHUJA M 388.70 OTALGIA UNSPECIFIED 05/21/2014 CARLOS AHUJA M 388.70 OTALGIA UNSPECIFIED 06/26/2014 WENDI BLACK MD N 346.80 OTHER FORMS OF MIGRAINE WITHOUT INTRACTABLE MIGRAINE WITHOUT MENTION OF STATUS MIGRAINOSUS 06/26/2014 WENDI BLACK MD N 786.50 CHEST PAIN 06/26/2014 WENDI BLACK MD N 346.80 OTHER FORMS OF MIGRAINE WITHOUT INTRACTABLE MIGRAINE WITHOUT MENTION OF STATUS MIGRAINOSUS 06/26/2014 WENDI BLACK MD N 786.50 CHEST PAIN 06/26/2014 CARLOS AHUJA M 346.80 OTHER FORMS OF MIGRAINE WITHOUT INTRACTABLE MIGRAINE WITHOUT MENTION OF STATUS MIGRAINOSUS 06/26/2014 CHRISTEL DOT ETCHER APPRENTICECARLOS M 786.50 CHEST PAIN 06/26/2014 CHRISTEL DOT ETCHER APPRENTICECARLOS M 346.80 OTHER FORMS OF MIGRAINE WITHOUT INTRACTABLE MIGRAINE WITHOUT MENTION OF STATUS MIGRAINOSUS 06/26/2014 CHRISTEL DOT ETCHER APPRENTICECARLOS M 786.50 CHEST PAIN 06/26/2014 CHRISTEL DOT ETCHER APPRENTICECARLOS M 346.80 OTHER FORMS OF MIGRAINE WITHOUT INTRACTABLE MIGRAINE WITHOUT MENTION OF STATUS MIGRAINOSUS 06/26/2014 CHRISTEL DOT ETCHER APPRENTICECARLOS M 786.50 CHEST PAIN 06/26/2014 CHRISTEL DOT ETCHER APPRENTICECARLOS M 346.80 OTHER FORMS OF MIGRAINE WITHOUT INTRACTABLE MIGRAINE WITHOUT MENTION OF STATUS MIGRAINOSUS 06/26/2014 CARLOS AHUJA M 786.50 CHEST PAIN 07/16/2014 CARLOS AHUJA M 578.1 BLOOD IN STOOL 07/16/2014 CARLOS AHUJA M 578.1 BLOOD IN STOOL 12/02/2014 BRAYDEN DILLONC, ALI FACP CCDS Ot 272.4 12/02/2014 BRAYDEN DILLONC, ALI FACP CCDS Ot 278.00 12/02/2014 BRAYDEN RICE FACC, ALI FACP CCDS Ot 305.1 12/02/2014 BRAYDEN RICE FACC, ALI FACP CCDS Ot 401.9 12/02/2014 BRAYDEN DILLONC, ALI FACP CCDS Ot 786.50 12/02/2014 BRAYDEN DILLONC, ALI FACP CCDS Ot V88.01 12/02/2014 Ot 272.4 12/02/2014 Ot 278.00 12/02/2014 Ot 305.1 12/02/2014 Ot 401.9 12/02/2014 Ot 786.50 12/02/2014 Ot V88.01 12/02/2014 SOCORRO KEATING CIRCUS ROUSTABOUT Ot 305.1 12/02/2014 SOCORRO KEATING CIRCUS ROUSTABOUT Ot 525.9 12/02/2014 SOCORRO KEATING CIRCUS ROUSTABOUT Ot 526.5 12/02/2014 BRAYDEN DILLONC, DIANE FACP CCDS Ot 272.4 12/02/2014 BRAYDEN RICE FACC, ALI FACP CCDS Ot 278.00 12/02/2014 BRAYDEN DILLONC, ALI FACP CCDS Ot 305.1 12/02/2014 BRAYDEN DILLONC, ALI FACP CCDS Ot 401.9 12/02/2014 BRAYDEN DILLONC, ALI FACP CCDS Ot 786.50 12/02/2014 BRAYDEN DILLONC, ALI FACP CCDS Ot V88.01 12/02/2014 Ot 272.4 12/02/2014 Ot 278.00 12/02/2014 Ot 305.1 12/02/2014 Ot 401.9 12/02/2014 Ot 786.50 12/02/2014 Ot V88.01 12/02/2014 BRAYDEN DILLONC, ALI FACP CCDS Ot 272.4 12/02/2014 BRAYDEN DILLONC, ALI FACP CCDS Ot 278.00 12/02/2014 BRAYDEN RICE FACC, ALI FACP CCDS Ot 305.1 12/02/2014 BRAYDEN RICE FACC, ALI FACP CCDS Ot 401.9 12/02/2014 BRAYDEN RICE FACC, ALI FACP CCDS Ot 786.50 12/02/2014 BRAYDEN RICE FACC, ALI FACP CCDS Ot V88.01 12/02/2014 Ot 272.4 12/02/2014 Ot 278.00 12/02/2014 Ot 305.1 12/02/2014 Ot 401.9 12/02/2014 Ot 786.50 12/02/2014 Ot V88.01 12/28/2014 BRAYDEN RICE FACC, ALI FACP CCDS Ot 272.4 12/28/2014 BRAYDEN RICE FACC, ALI FACP CCDS Ot 278.00 12/28/2014 BRAYDEN RICE FACC, ALI FACP CCDS Ot 305.1 12/28/2014 BRAYDEN RICE FACC, ALI FACP CCDS Ot 401.9 12/28/2014 BRAYDEN RICE FACC, ALI FACP CCDS Ot 786.50 12/28/2014 BRAYDEN RICE FACC, ALI FACP CCDS Ot V88.01 12/28/2014 Ot 272.4 12/28/2014 Ot 278.00 12/28/2014 Ot 305.1 12/28/2014 Ot 401.9 12/28/2014 Ot 786.50 12/28/2014 Ot V88.01 12/28/2014 ALVARO CABRERA MD Ot 723.1 12/28/2014 ALVARO CABRERA MD Ot E000.8 12/28/2014 ALVARO CABRERA MD Ot E816.0 12/28/2014 BRAYDEN RICE FACC, ALI FACP CCDS Ot 272.4 12/28/2014 BRAYDEN RICE FACC, ALI FACP CCDS Ot 278.00 12/28/2014 BRAYDEN RICE FACC, ALI FACP CCDS Ot 305.1 12/28/2014 BRAYDEN RICE FACC, ALI FACP CCDS Ot 401.9 12/28/2014 BRAYDEN RICE FACC, ALI FACP CCDS Ot 786.50 12/28/2014 BRAYDEN RICE FACC, ALI FACP CCDS Ot V88.01 12/28/2014 Ot 272.4 12/28/2014 Ot 278.00 12/28/2014 Ot 305.1 12/28/2014 Ot 401.9 12/28/2014 Ot 786.50 12/28/2014 Ot V88.01 01/02/2015 BRAYDEN DILLONC, ALI FACP CCDS Ot 272.4 01/02/2015 BRAYDEN DILLONC, ALI FACP CCDS Ot 278.00 01/02/2015 BRAYDEN RICE FACC, ALI FACP CCDS Ot 305.1 01/02/2015 BRAYDEN RICE FACC, ALI FACP CCDS Ot 401.9 01/02/2015 BRAYDEN RICE FACC, ALI FACP CCDS Ot 786.50 01/02/2015 BRAYDEN DILLONC, ALI FACP CCDS Ot V88.01 01/02/2015 Ot 272.4 01/02/2015 Ot 278.00 01/02/2015 Ot 305.1 01/02/2015 Ot 401.9 01/02/2015 Ot 786.50 01/02/2015 Ot V88.01 06/02/2015 BRAYDEN DILLONC, ALI FACP CCDS Ot 272.4 06/02/2015 BRAYDEN DILLONC, ALI FACP CCDS Ot 278.00 06/02/2015 BRAYDEN DILLONC, ALI FACP CCDS Ot 305.1 06/02/2015 BRAYDEN RICE FACC, ALI FACP CCDS Ot 401.9 06/02/2015 BRAYDEN RICE FACC, ALI FACP CCDS Ot 786.50 06/02/2015 BRAYDEN DILLONC, ALI FACP CCDS Ot V88.01 06/02/2015 Ot 272.4 06/02/2015 Ot 278.00 06/02/2015 Ot 305.1 06/02/2015 Ot 401.9 06/02/2015 Ot 786.50 06/02/2015 Ot V88.01 06/02/2015 MARCELLUS DONATO MD Ot K52.9 NONINFECTIVE GASTROENTERITIS AND COLITIS 06/02/2015 BRAYDEN DILLONC, ALI FACP CCDS Ot 272.4 06/02/2015 BRAYDEN DILLONC, ALI FACP CCDS Ot 278.00 06/02/2015 BRAYDEN DILLONC, ALI FACP CCDS Ot 305.1 06/02/2015 BRAYDEN DILLONC, ALI FACP CCDS Ot 401.9 06/02/2015 BRAYDEN DILLONC, [facility] CCDS Ot 786.50 06/02/2015 BRAYDEN RICE [facility], [facility] CCDS Ot V88.01 06/02/2015 Ot 272.4 06/02/2015 Ot 278.00 06/02/2015 Ot 305.1 06/02/2015 Ot 401.9 06/02/2015 Ot 786.50 06/02/2015 Ot V88.01 01/27/2016 BOBY DANIELLE MD Ot F17.210 NICOTINE DEPENDENCE, CIGARETTES, UNCOMPL 01/27/2016 BOBY DANIELLE MD Ot R07.9 CHEST PAIN, UNSPECIFIED 01/27/2016 BOBY DANIELLE MD Ot S92.322A DISP FX OF SECOND METATARSAL BONE, LEFT 01/27/2016 BOBY DANIELLE MD Ot X58.XXXA EXPOSURE TO OTHER SPECIFIED FACTORS , INI 01/27/2016 BOBY DANIELLE MD Ot Y99.8 OTHER EXTERNAL CAUSE STATUS 01/28/2016 BOBY DANIELLE MD Ot F17.210 NICOTINE DEPENDENCE, CIGARETTES, UNCOMPL 01/28/2016 BOBY DANIELLE MD Ot R07.9 CHEST PAIN, UNSPECIFIED 01/28/2016 BOBY DANIELLE MD Ot S92.322A DISP FX OF SECOND METATARSAL BONE, LEFT 01/28/2016 BOBY DANIELLE MD Ot X58.XXXA EXPOSURE TO OTHER SPECIFIED FACTORS , INI 01/28/2016 BOBY DANIELLE MD Ot Y99.8 OTHER EXTERNAL CAUSE STATUS 01/28/2016 BOBY DANIELLE MD Ot F17.210 NICOTINE DEPENDENCE, CIGARETTES, UNCOMPL 01/28/2016 BOBY DANIELLE MD Ot R07.9 CHEST PAIN, UNSPECIFIED 01/28/2016 BOBY DANIELLE MD Ot S92.322A DISP FX OF SECOND METATARSAL BONE, LEFT 01/28/2016 BOBY DANIELLE MD Ot X58.XXXA EXPOSURE TO OTHER SPECIFIED FACTORS , INI 01/28/2016 BOBY DANIELLE MD Ot Y99.8 OTHER EXTERNAL CAUSE STATUS 03/01/2016 SOCORRO KEATING CIRCUS ROUSTABOUT Ot I10 ESSENTIAL (PRIMARY) HYPERTENSION 03/01/2016 SOCORRO KEATING CIRCUS ROUSTABOUT Ot K52.9 NONINFECTIVE GASTROENTERITIS AND COLITIS 03/01/2016 SOCORRO KEATING CIRCUS ROUSTABOUT Ot R11.2 NAUSEA WITH VOMITING, UNSPECIFIED 03/01/2016 SOCORRO KEATING CIRCUS ROUSTABOUT Ot Z79.899 OTHER EXTENSION SPECIALIST (CURRENT) DRUG THERAPY 03/02/2016 SOCORRO KEATING CIRCUS ROUSTABOUT Ot I10 ESSENTIAL (PRIMARY) HYPERTENSION 03/02/2016 SOCORRO KEATING CIRCUS ROUSTABOUT Ot K52.9 NONINFECTIVE GASTROENTERITIS AND COLITIS 03/02/2016 SOCORRO KEATING CIRCUS ROUSTABOUT Ot R11.2 NAUSEA WITH VOMITING, UNSPECIFIED 03/02/2016 SOCORRO KEATING CIRCUS ROUSTABOUT Ot Z79.899 OTHER JAIL (CURRENT) DRUG THERAPY 03/02/2016 SOCORRO KEATING CIRCUS ROUSTABOUT Ot I10 ESSENTIAL (PRIMARY) HYPERTENSION 03/02/2016 SOCORRO KEATING CIRCUS ROUSTABOUT Ot K52.9 NONINFECTIVE GASTROENTERITIS AND COLITIS 03/02/2016 SOCORRO KEATING CIRCUS ROUSTABOUT Ot R11.2 NAUSEA WITH VOMITING, UNSPECIFIED 03/02/2016 SOCORRO KEATING APRN Ot Z79.899 OTHER EXTENSION SPECIALIST (CURRENT) DRUG THERAPY 03/05/2016 SOCORRO KEATING CIRCUS ROUSTABOUT Ot I10 ESSENTIAL (PRIMARY) HYPERTENSION 03/05/2016 SOCORRO KEATING APRN Ot K52.9 NONINFECTIVE GASTROENTERITIS AND COLITIS 03/05/2016 SOCORRO KEATING CIRCUS ROUSTABOUT Ot R11.2 NAUSEA WITH VOMITING, UNSPECIFIED 03/05/2016 SOCORRO KEATING CIRCUS ROUSTABOUT Ot Z79.899 OTHER JAIL (CURRENT) DRUG THERAPY 03/08/2016 SOCORRO KEATING CIRCUS ROUSTABOUT Ot I10 ESSENTIAL (PRIMARY) HYPERTENSION 03/08/2016 SOCORRO KEATING CIRCUS ROUSTABOUT Ot K52.9 NONINFECTIVE GASTROENTERITIS AND COLITIS 03/08/2016 SOCORRO KEATING CIRCUS ROUSTABOUT Ot R11.2 NAUSEA WITH VOMITING, UNSPECIFIED 03/08/2016 SOCORRO KEATING CIRCUS ROUSTABOUT Ot Z79.899 OTHER JAIL (CURRENT) DRUG THERAPY 03/14/2016 SOCORRO KEATING CIRCUS ROUSTABOUT Ot I10 ESSENTIAL (PRIMARY) HYPERTENSION 03/14/2016 SOCORRO KEATING CIRCUS ROUSTABOUT Ot K52.9 NONINFECTIVE GASTROENTERITIS AND COLITIS 03/14/2016 SOCORRO KEATING CIRCUS ROUSTABOUT Ot R11.2 NAUSEA WITH VOMITING, UNSPECIFIED 03/14/2016 SOCORRO KEATING APRN Ot Z79.899 OTHER EXTENSION SPECIALIST (CURRENT) DRUG THERAPY 06/30/2016 ALVARO CABRERA MD Ot R05 COUGH 06/30/2016 ALVARO CABRERA MD Ot Z53.21 PROC/TRTMT NOT CRD OUT D/T PT LV BEF SEE 07/01/2016 ALVARO CABRERA MD Ot R05 COUGH 07/01/2016 ALVARO CABRERA MD Ot Z53.21 PROC/TRTMT NOT CRD OUT D/T PT LV BEF SEE 07/06/2016 ALVARO CABRERA MD Ot R05 COUGH 07/06/2016 ALVARO CABRERA MD Ot Z53.21 PROC/TRTMT NOT CRD OUT D/T PT LV BEF SEE 08/17/2016 GUY XIAO DO Ot F17.210 NICOTINE DEPENDENCE, CIGARETTES, UNCOMPL 08/17/2016 GUY XIAO DO Ot I10 ESSENTIAL (PRIMARY) HYPERTENSION 08/17/2016 GUY XIAO DO Ot S92.325D NONDISP FX OF 2ND METATARSAL BONE, L FT, 08/17/2016 GUY XIAO DO Ot S92.335A NONDISP FX OF THIRD METATARSAL BONE, LEF 08/17/2016 GUY XIAO DO Ot S99.922A UNSPECIFIED INJURY OF LEFT FOOT, INITIAL 08/17/2016 GUY XIAO DO Ot X50.0XXA OVEREXERTION FROM STRENUOUS MOVEMENT OR 08/17/2016 GUY XIAO DO Ot Y99.8 OTHER EXTERNAL CAUSE STATUS 08/17/2016 GUY XIAO DO Ot Z79.899 OTHER EXTENSION SPECIALIST (CURRENT) DRUG THERAPY 09/17/2016 ANKIT BE MD Ot F17.210 NICOTINE DEPENDENCE, CIGARETTES, UNCOMPL 09/17/2016 ANKIT BE MD Ot I10 ESSENTIAL (PRIMARY) HYPERTENSION 09/17/2016 ANKIT BE MD Ot N17.9 ACUTE KIDNEY FAILURE, UNSPECIFIED 09/17/2016 ANKIT BE MD Ot R39.15 URGENCY OF URINATION Procedures Code Description [place] [address] UA W/ CULTURE IF INDICATED 06/15/2012 41653 PSYCH IND W/MED CK 20 08/10/2012 96133 ROUTINE VENIPUNCTURE 10/30/2012 44693 BNP 10/30/2012 78844 CMP 10/30/2012 7302385 GFR CALC (RESULT ONLY) 10/30/2012 10145 H PYLORI (IN-HOUSE) 11/07/2012 79616 ROUTINE VENIPUNCTURE 03/08/2013 95368 A1C (IN-HOUSE) 13137 ESR/SED RATE 48224 CBC 03/08/2013 66552 CRP 03/08/2013 76356 TSH 03/08/2013 57703 CPK 03/08/2013 51015 CMP 03/08/2013 2873630 GFR CALC (RESULT ONLY) 03/08/2013 ANAANA CALLUM ANALYZER (SCREEN) 03/09/2013 GRAVSPANL MYASTHENIA GRAVIS PANEL 03/18/2013 93787 UA W/ CULTURE IF INDICATED 04/26/2013 02404 CULTURE URINE 56115 ROUTINE VENIPUNCTURE 10/02/2013 79430 TRICHOMONAS (IN-HOUSE) 10/02/2013 36917 SYPHILLIS-[facility] 10/02/2013 09341 HIV ([facility]) 10/02/2013 82192 GC/CHLAM PROBE (STATE) 10/02/2013 44286 CULTURE UROGENITAL 10/03/2013 96783 UA W/ CULTURE IF INDICATED 01/01/2014 63760 UA LONG DIP 02/17 07263 ROUTINE VENIPUNCTURE 05/21/2014 06913 SED/ESR RATE (IN HOUSE) 05/21/2014 32919 LIPID PANEL 05/21 16314 PSYCH DIAGNOSTIC EVALUATION 06/25/2014 19318 ROUTINE VENIPUNCTURE 06/26/2014 52938 EKG, TRACING (IN-HOUSE) 06/26/2014 16884 CMP 06/26/2014 86499 MAGNESIUM 2014 27881 TSH 06/26/2014 CARDIOLOG LIN POWERS 06/26/2014 52880 CBC 06/26/2014 77657 PSYTX PT&/FAMILY 45 MINUTES 07/28/2014 Results Test Result Range Complete blood count (CBC) with automated white blood cell (WBC) differential - 01/27/16 14:53 Blood leukocytes automated count (number/volume) 6.5 10*3/ uL 4.3-11.0 Blood erythrocytes automated count (number/volume) 3.94 10*6 /uL 4.35-5.85 Venous blood hemoglobin measurement (mass/volume) 12.2 g/dL 11.5-16.0 Blood hematocrit (volume fraction) 36 % 35-52 Automated erythrocyte mean corpuscular volume 90 [foz_us] 80-99 Automated erythrocyte mean corpuscular hemoglobin (mass per erythrocyte) 31 pg 25-34 Automated erythrocyte mean corpuscular hemoglobin concentration measurement ( mass/volume) 34 g/dL 32-36 Automated erythrocyte distribution width ratio 12.6 % 10.0-14.5 Automated blood platelet count (count/volume) 301 10*3/uL 130-400 Automated blood platelet mean volume measurement 9.1 [foz_us ] 7.4-10.4 Automated blood neutrophils/100 leukocytes 62 % 42-75 Automated blood lymphocytes/100 leukocytes 31 % 12-44 Blood monocytes/100 leukocytes 7 % 0-12 Automated blood eosinophils/100 leukocytes 0 % 0-10 Automated blood basophils/100 leukocytes 0 % 0-10 Blood neutrophils automated count (number/volume) 4.0 10*3 1.8-7.8 Blood lymphocytes automated count (number/volume) 2.0 10*3 1.0-4.0 Blood monocytes automated count (number/volume) 0.4 10*3 0.0-1.0 Automated eosinophil count 0.0 10*3/uL 0.0-0.3 Automated blood basophil count (count/volume) 0.0 10*3/uL 0.0-0.1 PT panel in platelet poor plasma by coagulation assay - 01/27/16 14:53 Prothrombin time (PT) in platelet poor plasma by coagulation assay 12.1 s 12.2-14.7 INR in platelet poor plasma or blood by coagulation assay 0.9 0.8-1.4 Activated partial thromboplastin time (aPTT) in platelet poor plasma bycoagulation assay - 01/27/16 14:53 Activated partial thromboplastin time (aPTT) in platelet poor plasma bycoagulation assay 28 s 24-35 Fibrin D-dimer FEU measurement in platelet poor plasma (mass/volume) - 14:53 Fibrin D-dimer FEU measurement in platelet poor plasma (mass/volume) 0.77 ug/mL 0.00-0.49 Serum or plasma lithium measurement (moles/volume) - 01/27/16 14:53 BNP level < pg/mL <100.0 Comprehensive metabolic panel - 01/27/16 14:53 Serum or plasma sodium measurement (moles/volume) 135 mmol/ L 135-145 Serum or plasma potassium measurement (moles/volume) 3.6 mmol/L 3.6-5.0 Serum or plasma chloride measurement (moles/volume) 103 mmol /L 98-107 Carbon dioxide 23 mmol/L 21-32 Serum or plasma anion gap determination (moles/volume) 9 mmol/L 5-14 Serum or plasma urea nitrogen measurement (mass/volume) 8 mg /dL 7-18 Serum or plasma creatinine measurement (mass/volume) 0.64 mg /dL 0.60-1.30 Serum or plasma urea nitrogen/creatinine mass ratio 13 NRG Serum or plasma creatinine measurement with calculation of estimated glomerular filtration rate > NRG Serum or plasma glucose measurement (mass/volume) 127 mg/dL 70-105 Serum or plasma calcium measurement (mass/volume) 9.1 mg/dL 8.5-10.1 Serum or plasma total bilirubin measurement (mass/volume) 0.3 mg/dL 0.1-1.0 Serum or plasma alkaline phosphatase measurement (enzymatic activity/volume) 107 U/L 40-136 Serum or plasma aspartate aminotransferase measurement (enzymatic activity/ volume) 35 U/L 5-34 Serum or plasma alanine aminotransferase measurement (enzymatic activity/volume ) 43 U/L 0-55 Serum or plasma protein measurement (mass/volume) 6.5 g/dL 6.4-8.2 Serum or plasma albumin measurement (mass/volume) 3.8 g/dL 3.2-4.5 Magnesium - 01/27/16 14:53 Magnesium 1.8 mg/dL 1.8-2.4 Serum or plasma troponin i.cardiac measurement (mass/volume) - 01/27/16 14:53 Serum or plasma troponin i.cardiac measurement (mass/volume) < ng/mL <0.30 Myoglobin, serum - 01/27/16 14:53 Myoglobin, serum 35.3 ng/mL 10.0-92.0 Complete blood count (CBC) with automated white blood cell (WBC) differential - 03/01/16 15:35 Blood leukocytes automated count (number/volume) 13.5 10*3/ uL 4.3-11.0 Blood erythrocytes automated count (number/volume) 4.62 10*6 /uL 4.35-5.85 Venous blood hemoglobin measurement (mass/volume) 14.4 g/dL 11.5-16.0 Blood hematocrit (volume fraction) 41 % 35-52 Automated erythrocyte mean corpuscular volume 88 [foz_us] 80-99 Automated erythrocyte mean corpuscular hemoglobin (mass per erythrocyte) 31 pg 25-34 Automated erythrocyte mean corpuscular hemoglobin concentration measurement ( mass/volume) 35 g/dL 32-36 Automated erythrocyte distribution width ratio 12.3 % 10.0-14.5 Automated blood platelet count (count/volume) 357 10*3/uL 130-400 Automated blood platelet mean volume measurement 9.2 [foz_us ] 7.4-10.4 Automated blood neutrophils/100 leukocytes 95 % 42-75 Automated blood lymphocytes/100 leukocytes 3 % 12-44 Blood monocytes/100 leukocytes 2 % 0-12 Automated blood eosinophils/100 leukocytes 0 % 0-10 Automated blood basophils/100 leukocytes 0 % 0-10 Blood neutrophils automated count (number/volume) 12.8 10*3 1.8-7.8 Blood lymphocytes automated count (number/volume) 0.4 10*3 1.0-4.0 Blood monocytes automated count (number/volume) 0.3 10*3 0.0-1.0 Automated eosinophil count 0.0 10*3/uL 0.0-0.3 Automated blood basophil count (count/volume) 0.0 10*3/uL 0.0-0.1 Blood manual differential performed detection - 03/01/16 15:35 Blood monocytes/100 leukocytes 0 % NR Manual blood segmented neutrophils/100 leukocytes 80 % NRG Blood band neutrophils/100 leukocytes 9 % NRG Manual blood lymphocytes/100 leukocytes 11 % NRG Manual eosinophils/100 leukocytes in nose 0 % NRG Manual blood basophils/100 leukocytes 0 % NR Blood erythrocyte morphology finding identification [facility] Comprehensive metabolic panel - 03/01/16 15:35 Serum or plasma sodium measurement (moles/volume) 138 mmol/ L 135-145 Serum or plasma potassium measurement (moles/volume) 3.8 mmol/L 3.6-5.0 Serum or plasma chloride measurement (moles/volume) 106 mmol /L 98-107 Carbon dioxide 20 mmol/L 21-32 Serum or plasma anion gap determination (moles/volume) 12 mmol/L 5-14 Serum or plasma urea nitrogen measurement (mass/volume) 20 mg/dL 7-18 Serum or plasma creatinine measurement (mass/volume) 0.87 mg /dL 0.60-1.30 Serum or plasma urea nitrogen/creatinine mass ratio 23 NRG Serum or plasma creatinine measurement with calculation of estimated glomerular filtration rate > NRG Serum or plasma glucose measurement (mass/volume) 131 mg/dL 70-105 Serum or plasma calcium measurement (mass/volume) 9.5 mg/dL 8.5-10.1 Serum or plasma total bilirubin measurement (mass/volume) 0.4 mg/dL 0.1-1.0 Serum or plasma alkaline phosphatase measurement (enzymatic activity/volume) 139 U/L 40-136 Serum or plasma aspartate aminotransferase measurement (enzymatic activity/ volume) 26 U/L 5-34 Serum or plasma alanine aminotransferase measurement (enzymatic activity/volume ) 38 U/L 0-55 Serum or plasma protein measurement (mass/volume) 7.5 g/dL 6.4-8.2 Serum or plasma albumin measurement (mass/volume) 4.6 g/dL 3.2-4.5 Lipase - 03/01/16 15:35 Lipase 10 U/L 8-78 Complete urinalysis with reflex to culture - 03/01/16 16:24 Urine color determination YELLOW NRG Urine clarity determination CLEAR NRG Urine pH measurement by test strip 8 5- 9 Specific gravity of urine by test strip 1.010 1.016-1.022 Urine protein assay by test strip, semi-quantitative NEGATIVE NEGATIVE Urine glucose detection by automated test strip NEGATIVE NEGATIVE Erythrocytes detection in urine sediment by light microscopy NEGATIVE NEGATIVE Urine ketones detection by automated test strip 4+ NEGATIVE Urine nitrite detection by test strip NEGATIVE NEGATIVE Urine total bilirubin detection by test strip NEGATIVE NEGATIVE Urine urobilinogen measurement by automated test strip (mass/volume) NORMAL NORMAL Urine leukocyte esterase detection by dipstick NEGATIVE NEGATIVE Automated urine sediment erythrocyte count by microscopy (number/high power field) NONE NRG Automated urine sediment leukocyte count by microscopy (number/high power field ) NONE NRG Bacteria detection in urine sediment by light microscopy NONE NRG Squamous epithelial cells detection in urine sediment by light microscopy 5-10 NRG Crystals detection in urine sediment by light microscopy NONE NRG Casts detection in urine sediment by light microscopy NONE NRG Mucus detection in urine sediment by light microscopy SMALL NRG Complete urinalysis with reflex to culture NO NRG Complete urinalysis with reflex to culture - 09/11/16 10:30 Urine color determination YELLOW NRG Urine clarity determination SLIGHTLY CLOUDY NRG Urine pH measurement by test strip 5 5- 9 Specific gravity of urine by test strip 1.020 1.016-1.022 Urine protein assay by test strip, semi-quantitative 2+ NEGATIVE Urine glucose detection by automated test strip NEGATIVE NEGATIVE Erythrocytes detection in urine sediment by light microscopy NEGATIVE NEGATIVE Urine ketones detection by automated test strip NEGATIVE NEGATIVE Urine nitrite detection by test strip NEGATIVE NEGATIVE Urine total bilirubin detection by test strip NEGATIVE NEGATIVE Urine urobilinogen measurement by automated test strip (mass/volume) NORMAL NORMAL Urine leukocyte esterase detection by dipstick 1+ NEGATIVE Automated urine sediment erythrocyte count by microscopy (number/high power field) NONE NRG Automated urine sediment leukocyte count by microscopy (number/high power field ) [HPF] NRG Bacteria detection in urine sediment by light microscopy NEGATIVE NRG Squamous epithelial cells detection in urine sediment by light microscopy >50 NRG Crystals detection in urine sediment by light microscopy NONE NRG Casts detection in urine sediment by light microscopy NONE NRG Mucus detection in urine sediment by light microscopy NEGATIVE NRG Complete urinalysis with reflex to culture NO NRG Comprehensive metabolic panel - 09/11/16 10:55 Serum or plasma sodium measurement (moles/volume) 129 mmol/ L 135-145 Serum or plasma potassium measurement (moles/volume) 4.4 mmol/L 3.6-5.0 Serum or plasma chloride measurement (moles/volume) 94 mmol/ L 98-107 Carbon dioxide 22 mmol/L 21-32 Serum or plasma anion gap determination (moles/volume) 13 mmol/L 5-14 Serum or plasma urea nitrogen measurement (mass/volume) 37 mg/dL 7-18 Serum or plasma creatinine measurement (mass/volume) 3.77 mg /dL 0.60-1.30 Serum or plasma urea nitrogen/creatinine mass ratio 10 NRG Serum or plasma creatinine measurement with calculation of estimated glomerular filtration rate 13 NRG Serum or plasma glucose measurement (mass/volume) 85 mg/dL 70-105 Serum or plasma calcium measurement (mass/volume) 9.3 mg/dL 8.5-10.1 Serum or plasma total bilirubin measurement (mass/volume) 0.3 mg/dL 0.1-1.0 Serum or plasma alkaline phosphatase measurement (enzymatic activity/volume) 139 U/L 40-136 Serum or plasma aspartate aminotransferase measurement (enzymatic activity/ volume) 24 U/L 5-34 Serum or plasma alanine aminotransferase measurement (enzymatic activity/volume ) 28 U/L 0-55 Serum or plasma protein measurement (mass/volume) 7.8 g/dL 6.4-8.2 Serum or plasma albumin measurement (mass/volume) 4.6 g/dL 3.2-4.5 Magnesium - 09/11/16 10:55 Magnesium 2.6 mg/dL 1.8-2.4 Serum or plasma troponin i.cardiac measurement (mass/volume) - 09/11/16 10:55 Serum or plasma troponin i.cardiac measurement (mass/volume) < ng/mL <0.30 Urine beta human chorionic gonadotropin (hCG) measurement - 09/25/16 21:40 Urine beta human chorionic gonadotropin (hCG) measurement NEGATIVE NEGATIVE Complete urinalysis with reflex to culture - 09/25/16 21:40 Urine color determination YELLOW NRG Urine clarity determination SLIGHTLY CLOUDY NRG Urine pH measurement by test strip 6 5- 9 Specific gravity of urine by test strip 1.030 1.016-1.022 Urine protein assay by test strip, semi-quantitative 2+ NEGATIVE Urine glucose detection by automated test strip NEGATIVE NEGATIVE Erythrocytes detection in urine sediment by light microscopy NEGATIVE NEGATIVE Urine ketones detection by automated test strip NEGATIVE NEGATIVE Urine nitrite detection by test strip NEGATIVE NEGATIVE Urine total bilirubin detection by test strip NEGATIVE NEGATIVE Urine urobilinogen measurement by automated test strip (mass/volume) NORMAL NORMAL Urine leukocyte esterase detection by dipstick 1+ NEGATIVE Automated urine sediment erythrocyte count by microscopy (number/high power field) NONE NRG Automated urine sediment leukocyte count by microscopy (number/high power field ) [HPF] NRG Bacteria detection in urine sediment by light microscopy LARGE NRG Squamous epithelial cells detection in urine sediment by light microscopy >50 NRG Crystals detection in urine sediment by light microscopy NONE NRG Casts detection in urine sediment by light microscopy PRESENT NRG Mucus detection in urine sediment by light microscopy NEGATIVE NRG Complete urinalysis with reflex to culture NO NRG Hyaline casts detection in urine sediment by light microscopy RARE NRG Renal epithelial cells detection in urine sediment by light microscopy NONE NRG Complete blood count (CBC) with automated white blood cell (WBC) differential - 09/25/16 22:03 Blood leukocytes automated count (number/volume) 6.9 10*3/ uL 4.3-11.0 Blood erythrocytes automated count (number/volume) 3.87 10*6 /uL 4.35-5.85 Venous blood hemoglobin measurement (mass/volume) 11.9 g/dL 11.5-16.0 Blood hematocrit (volume fraction) 35 % 35-52 Automated erythrocyte mean corpuscular volume 91 [foz_us] 80-99 Automated erythrocyte mean corpuscular hemoglobin (mass per erythrocyte) 31 pg 25-34 Automated erythrocyte mean corpuscular hemoglobin concentration measurement ( mass/volume) 34 g/dL 32-36 Automated erythrocyte distribution width ratio 13.4 % 10.0-14.5 Automated blood platelet count (count/volume) 296 10*3/uL 130-400 Automated blood platelet mean volume measurement 9.0 [foz_us ] 7.4-10.4 Automated blood neutrophils/100 leukocytes 55 % 42-75 Automated blood lymphocytes/100 leukocytes 37 % 12-44 Blood monocytes/100 leukocytes 8 % 0-12 Automated blood eosinophils/100 leukocytes 0 % 0-10 Automated blood basophils/100 leukocytes 0 % 0-10 Blood neutrophils automated count (number/volume) 3.7 10*3 1.8-7.8 Blood lymphocytes automated count (number/volume) 2.5 10*3 1.0-4.0 Blood monocytes automated count (number/volume) 0.6 10*3 0.0-1.0 Automated eosinophil count 0.0 10*3/uL 0.0-0.3 Automated blood basophil count (count/volume) 0.0 10*3/uL 0.0-0.1 Capillary blood glucose measurement by glucometer (mass/volume) - 09/25/16 22: 03 Capillary blood glucose measurement by glucometer (mass/volume) 99 mg/dL 70-110 Comprehensive metabolic panel - 09/25/16 22:03 Serum or plasma sodium measurement (moles/volume) 139 mmol/ L 135-145 Serum or plasma potassium measurement (moles/volume) 3.4 mmol/L 3.6-5.0 Serum or plasma chloride measurement (moles/volume) 107 mmol /L 98-107 Carbon dioxide 22 mmol/L 21-32 Serum or plasma anion gap determination (moles/volume) 10 mmol/L 5-14 Serum or plasma urea nitrogen measurement (mass/volume) 20 mg/dL 7-18 Serum or plasma creatinine measurement (mass/volume) 1.28 mg /dL 0.60-1.30 Serum or plasma urea nitrogen/creatinine mass ratio 16 NRG Serum or plasma creatinine measurement with calculation of estimated glomerular filtration rate 47 NRG Serum or plasma glucose measurement (mass/volume) 95 mg/dL 70-105 Serum or plasma calcium measurement (mass/volume) 9.0 mg/dL 8.5-10.1 Serum or plasma total bilirubin measurement (mass/volume) 0.2 mg/dL 0.1-1.0 Serum or plasma alkaline phosphatase measurement (enzymatic activity/volume) 118 U/L 40-136 Serum or plasma aspartate aminotransferase measurement (enzymatic activity/ volume) 15 U/L 5-34 Serum or plasma alanine aminotransferase measurement (enzymatic activity/volume ) 23 U/L 0-55 Serum or plasma protein measurement (mass/volume) 6.9 g/dL 6.4-8.2 Serum or plasma albumin measurement (mass/volume) 4.1 g/dL 3.2-4.5 Encounters ACCT No. Visit Date/Time Discharge Status Pt. Type Provider Facility Loc./Unit Complaint [id number] 08/22/2014 13:09:00 08/22/2014 23: 59:59 CLS Outpatient CARLOS AHUJA [id number] 07/28/2014 09:24:00 07/28/2014 23: 59:59 CLS Outpatient CARLOS AHUJA [id number] 07/28/2014 09:24:00 07/28/2014 23: 59:59 CLS Outpatient CARLOS AHUJA [id number] 07/16/2014 09:41:00 07/16/2014 23: 59:59 CLS Outpatient WENDI BLACK MD [id number] 06/26/2014 13:30:00 06/26/2014 23: 59:59 CLS Outpatient WENDI BLACK MD [id number] 06/26/2014 13:30:00 06/26/2014 23: 59:59 CLS Outpatient WENDI BLACK MD [id number] 06/25/2014 10:06:00 06/25/2014 23: 59:59 CLS Outpatient TIN HEREDIA PSYD [id number] 06/23/2014 08:04:00 06/23/2014 23: 59:59 CLS Outpatient CARLOS AHUJA [id number] 05/21/2014 11:37:00 05/21/2014 23: 59:59 CLS Outpatient WENDI BLACK MD [id number] 05/21/2014 11:37:00 05/21/2014 23: 59:59 CLS Outpatient WENDI BLACK MD [id number] 02/21/2014 16:26:00 02/21/2014 23: 59:59 CLS Outpatient PAIGE HECK MANAV ALVES [id number] 02/17/2014 14:00:00 02/17/2014 23: 59:59 CLS Outpatient DIMPLE PEÑALOZA DO [id number] 02/17/2014 14:00:00 02/17/2014 23: 59:59 CLS Outpatient DIMPLE PEÑALOZA DO [id number] 01/01/2014 10:30:00 01/01/2014 23: 59:59 CLS Outpatient WENDI BLACK MD [id number] 01/01/2014 10:30:00 01/01/2014 23: 59:59 CLS Outpatient WENDI BLACK MD [id number] 10/23/2013 10:35:00 10/23/2013 23: 59:59 CLS Outpatient PAIGE HECK MANAV ALVES [id number] 10/02/2013 10:27:00 10/02/2013 23: 59:59 CLS Outpatient RAMONMARGARETH HECKMILADYMAU A [id number] 07/26/2013 11:02:00 07/26/2013 23: 59:59 CLS Outpatient PAIGE HECK MANAV WHITEH [id number] 04/26/2013 13:33:00 04/26/2013 23: 59:59 CLS Outpatient DIMPLE PEÑALOZA DO [id number] 03/08/2013 14:50:00 03/08/2013 23: 59:59 CLS Outpatient TEOFILO FELICIANO MD [id number] 09/04/2012 15:25:00 09/04/2012 23: 59:59 CLS Outpatient DIMPLE PEÑALOZA DO [id number] 08/24/2012 15:09:00 08/24/2012 23: 59:59 CLS Outpatient [id number] 08/10/2012 09:40:00 08/10/2012 23: 59:59 CLS Outpatient GIBSON UMANG MANAV ALVES [id number] 06/21/2012 11:34:00 06/21/2012 23: 59:59 CLS Outpatient MANAV GIBSON APRN [id number] 06/18/2012 08:06:00 06/18/2012 23: 59:59 CLS Outpatient [id number] 06/15/2012 12:10:00 06/15/2012 23: 59:59 CLS Outpatient [id number] 04/23/2012 13:28:00 04/23/2012 23: 59:59 CLS Outpatient [id number] 03/27/2012 07:58:00 03/27/2012 23:59 :59 CLS Outpatient DIMPLE PEÑALOZA DO [id number] 11/07/2012 17:40:00 Document Registration [id number] 10/30/2012 15:03:00 Document Registration [id number] 09/20/2012 09:48:00 Document Registration
--- OUTSIDE RECORDS SUMMARY | 2016-10-04 12:05 | XMS REPORT ---
Author Author WENDI BLACK [facility] [place] eClinicalWorks Address Unknown Phone Unavailable Care Team Providers Care Hand Sole Sewer Name Role Phone WENDI BLACK CP Unavailable [...] Instructions Start Date End Date Status Dosage Albuterol Sulfate [facility] [address]-11 90 mcg/actuation Feb 17, 2014 take 2 puffs by Inhalation route every 4-6 hours as needed PRN cough or wheezing. Results No Known Results Summary Purpose eClinicalWorks Submission
== END 2016-09-11 14:44 | disposition home or self-care (01) ==
LOC: EDUNIT# 10:20 → ER 10:21
DX: N17.9 Acute kidney failure, unspecified (principal); I10 Essential (primary) hypertension; F17.210 Nicotine dependence, cigarettes, uncomplicated
CPT/HCPCS: 36415; 70450; 71010; 80053; 81000; 83735; 84484; 93005; 96360

== ENCOUNTER 2016-09-25 20:43 | Emergency (ER) | payer SELFPAY ==
[~2016-09-25] VITALS: Ht 172.7 cm; Wt 127.0 kg
[2016-09-25] MEDS ORDERED: AMLO5TAB4 PO (21:12)
[2016-09-25] MEDS ORDERED: AMIT25TA9 PO (21:12)
[2016-09-25] MEDS ORDERED: ALPR2TAB2 PO (21:12)
[2016-09-25] MEDS ORDERED: MIRT30TA PO (21:12)
[2016-09-25] MEDS ORDERED: CHOL500049 PO (21:12)
--- NOTE | 2016-09-25 21:35 | ED General ---
General Chief Complaint: General Problems/Pain Stated Complaint: INJ FOOT NAUSEA KIDNEY ISSUES Nursing Triage Note: Pt reports she was seen in this ED last week after becoming weak and hallucinating at work. Pt reports creatinine was 3.77 at this visit. Pt reports she began feeling disoriented again yesterday and now c/o feeling generally weak. Pt also c/o back pain radiating to abd and advises she has been nauseous all day. Pt repors vomiting x1 today. Nursing Sepsis Screen: No Definite Risk Source of Information: Patient Exam Limitations: No Limitations History of Present Illness Time Seen by Provider: 21:30 Initial Comments 2129: Patient recently had an ARACELI on her diuretic and blood pressure medicines so they were stopped. She is recently restarted 2 days ago and today she is feeling crummy, walking into brady, more left foot pain where she recently had foot fracture and painful urination. She denies any fever, chills, sweats, rash. She is not having nausea or vomiting or constipation. Allergies and Home Medications Allergies Coded Allergies: Sulfa (Sulfonamide Antibiotics) (Unverified Allergy, Unknown, 07/31/14) amoxicillin (Unverified Allergy, Unknown, 07/31/14) hydrocodone (Unverified Allergy, Unknown, 07/31/14) morphine (Unverified Allergy, Unknown, 07/31/14) paroxetine (Unverified Allergy, Unknown, 07/31/14) sulfamethoxazole (Unverified Allergy, Unknown, 07/31/14) trimethoprim (Unverified Allergy, Unknown, 07/31/14) Home Medications Acyclovir 400 Mg Tablet, #60 (Reported) Alprazolam 2 Mg Tablet, 2 MG PO TID PRN for ANXIETY, (Reported) Amitriptyline HCl 50 Mg Tablet, 50 MG PO HS, #30 (Reported) Amitriptyline HCl 25 Mg Tablet, 25 MG PO DAILY, (Reported) Amlodipine Besylate 5 Mg Tablet, 5 MG PO DAILY, (Reported) Cholecalciferol (Vitamin D3) 50,000 Unit Capsule, 50,000 UNIT PO WEEK, (Reported ) Gabapentin 300 Mg Tablet, 900 MG PO BID, (Reported) Lisinopril 10 Mg Tablet, Unknown Dose PO, (Reported) Mirtazapine 30 Mg Tablet, Unknown Dose PO, (Reported) Omeprazole 20 Mg Capsule.dr, 20 MG PO DAILY, (Reported) Constitutional: No chills, No diaphoresis, dizziness, No fever, malaise EENTM: No ear pain, No eye pain, No nose congestion Respiratory: No cough, No short of breath, No wheezing Cardiovascular: No chest pain, No edema Gastrointestinal: abdominal pain (r Flank Pain), constipation, No diarrhea, nausea, vomiting (non bloody) Genitourinary: dysuria, No hematuria, No incontinence Musculoskeletal: No back pain, No joint pain Skin: No pruritus, No rash Past Adwdhuu-Vggnjo-Xxpudr Hx Patient Social History Alcohol Use: Denies Use Recreational Drug Use: No Smoking Status: Current Everyday Smoker Type Used: Cigarettes Recent Foreign Travel: No Contact w/Someone Who Travel: No Recent Infectious Disease Expo: No Recent Hopitalizations: No Immunizations Up To Date Tetanus Booster (TDap): Less than 5yrs Seasonal Allergies Seasonal Allergies: No Surgeries HX Surgeries: Yes (WISDOM TOOTH) Surgeries: Breast, Gallbladder, Hysterectomy, Nose Respiratory Hx Respiratory Disorders: Yes Respiratory Disorders: Asthma Cardiovascular Hx Cardiac Disorders: Yes Cardiac Disorders: High Cholesterol, Hypertension Neurological Hx Neurological Disorders: No 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 System Hx 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 Disorders: No Sexually Transmitted Disease: No HIV/AIDS: No 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 Genitourinary Hx Genitourinary Disorders: Yes Genitourinary Disorders: UTI-Chronic Gastrointestinal Hx Gastrointestinal Disorders: No Musculoskeletal Hx Musculoskeletal Disorders: Yes (LEFT FOOT FRACTURE) Musculoskeletal Disorders: Fractures Endocrine Hx Endocrine Disorders: No HEENT HX ENT Disorders: No Cancer Hx Cancer: No Psychosocial Hx Psychiatric Problems: Yes Behavioral Health Disorders: Anxiety, Depression Integumentary HX Skin/Integumentary Disorder: No Blood Transfusions Hx Blood Disorders: No Adverse Reaction to a Blood Tr: No Family Medical History Significant Family History: No Pertinent Family Hx Physical Exam Vital Signs Vital Sign - Last 12Hours 09/25/16 20:58 Temp 98.4 Pulse 96 Resp 18 B/P (MAP) 138/91 Pulse Ox 93 O2 Delivery Room Air Capillary Refill : Less Than 3 Seconds General Appearance: WD/WN, Anxious Eyes: Bilateral Eye Normal Inspection, Bilateral Eye PERRL HEENT: PERRL/EOMI, TMs Normal, Normal ENT Inspection, Pharynx Normal Neck: Full Range of Motion, Supple Respiratory: Chest Non Tender, Lungs Clear, Normal Breath Sounds, No Respiratory Distress Cardiovascular: Regular Rate, Rhythm, No Edema, No Murmur, Normal Peripheral Pulses Gastrointestinal: Normal Bowel Sounds, No Organomegaly, Soft, Other (mild RUQ TTP without seay's) Back: Normal Inspection, CVA Tenderness (R) Extremity: Normal Inspection, No Calf Tenderness Neurologic/Psychiatric: Alert, Oriented x3 Skin: Normal Color, Warm/Dry Progress/Results/Core Measures Results/Orders Lab Results Laboratory Tests Test 09/25/16 21:40 09/25/16 22:03 Range/Units Urine Color YELLOW Urine Clarity SLIGHTLY CLOUDY Urine pH 6 5-9 Urine Specific [place] 1.030 H 1.016-1.022 Urine Protein 2+ H NEGATIVE Urine Glucose (UA) NEGATIVE NEGATIVE Urine Ketones NEGATIVE NEGATIVE Urine Nitrite NEGATIVE NEGATIVE Urine Bilirubin NEGATIVE NEGATIVE Urine Urobilinogen NORMAL NORMAL MG/DL Urine Leukocyte Esterase 1+ H NEGATIVE Urine RBC (Auto) NEGATIVE NEGATIVE Urine RBC NONE /HPF Urine WBC 0-2 /HPF Urine Squamous Epithelial Cells >50 H /HPF Urine Renal Epithelial Cells NONE /HPF Urine Crystals NONE /LPF Urine Bacteria LARGE H /HPF Urine Casts PRESENT /LPF Urine Hyaline Casts RARE /LPF Urine Mucus NEGATIVE /LPF Urine Culture Indicated NO Urine Test NEGATIVE NEGATIVE White Blood Count 6.9 4.3-11.0 10^3/uL Red Blood Count 3.87 L 4.35-5.85 10^6/uL Hemoglobin 11.9 11.5-16.0 G/DL Hematocrit 35 35-52 % Mean Corpuscular Volume 91 80-99 FL Mean Corpuscular Hemoglobin 31 25-34 PG Mean Corpuscular Hemoglobin Concent 34 32-36 G/DL Red Cell Distribution Width 13.4 10.0-14.5 % Platelet Count 296 130-400 10^3/uL Mean Platelet Volume 9.0 7.4-10.4 FL Neutrophils (%) (Auto) 55 42-75 % Lymphocytes (%) (Auto) 37 12-44 % Monocytes (%) (Auto) 8 0-12 % Eosinophils (%) (Auto) 0 0-10 % Basophils (%) (Auto) 0 0-10 % Neutrophils # (Auto) 3.7 1.8-7.8 X 10^3 Lymphocytes # (Auto) 2.5 1.0-4.0 X 10^3 Monocytes # (Auto) 0.6 0.0-1.0 X 10^3 Eosinophils # (Auto) 0.0 0.0-0.3 10^3/uL Basophils # (Auto) 0.0 0.0-0.1 10^3/uL Glucometer 99 70-110 MG/DL My Orders Orders - CRYSTAL SINGLETON Dolores Accucheck Stat ONCE (09/25/16 21:35) Saline Lock/Iv-Start (09/25/16 21:35) Hcg,Qualitative Urine (09/25/16 21:43) Acetaminophen Tablet (Tylenol Tablet) (09/25/16 21:48) Fentanyl Injection (Sublimaze Injection (09/25/16 21:48) Ondansetron Injection (Zofran Injectio (09/25/16 22:00) Medications Given in ED Current Medications Medications Dose Ordered Sig/Brandon Route Start Time Stop Time Status Last Admin Dose Admin Ondansetron HCl 4 mg ONCE ONCE IVP 09/25/16 22:00 09/25/16 22:01 DC 09/25/16 22:04 4 MG Vital Signs/I&O Vital Sign - Last 12Hours 09/25/16 20:58 Temp 98.4 Pulse 96 Resp 18 B/P (MAP) 138/91 Pulse Ox 93 O2 Delivery Room Air Blood Pressure Mean: 107 Progress Note : Time: 22:35 Progress Note Patient recovering from recent AK I. Her creatinine is improving at 1.2 and her urine is not positive for any signs of acute infection. She is marginally improved with some nausea and pain meds so we'll set her up some Zofran outpatient and have her follow-up with her PCP this week. Mieralax for constipation Departure Impression Impression: Primary Impression: Fatigue Qualified Codes: R53.83 - Other fatigue Additional Impression: Dysuria Disposition: HOME, SELF-CARE Condition: Stable Departure-Patient Inst. Decision time for Depature: 22:36 Referrals: WENDI BLACK MD (PCP/Family) Primary Care Physician Patient Instructions: Chronic Pain (DC) Add. Discharge Instructions: You have no signs of infection however urine did show that she may be dry and you will need to drink more fluids. This will coincide with complaint of constipation. You may start to feel better get some MiraLAX and take it 1-2 times a day and to you have plenty of loose stools. Follow up with your primary care physician this week. If you have new or worsening symptoms you should return to the ER. You have also been given some Zofran was to be taken every 6 hours in case of nausea or vomiting. All discharge instructions reviewed with patient and/or family. Voiced understanding. Scripts Polyethylene Glycol 3350 (Miralax) 17 Gm Powd.pack 17 GM PO BID PRN for 3 Days, #1 EACH 0 Refills Prov: CRYSTAL SINGLETON 09/25/16 Ondansetron HCl (Zofran) 4 Mg Tab 4 MG PO Q6H Y for NAUSEA/VOMITING-1ST LINE, #20 TAB 0 Refills Prov: CRYSTAL SINGLETON 09/25/16 Copy Copies To 1: WENDI BLACK MD, TITUS J Sep 25, 2016 21:35
[2016-09-25] MEDS ORDERED: ACETAMINOPHEN 500 MG TAB (TYLENOL) PO STA (21:48)
[2016-09-25] MEDS ORDERED: fentaNYL INJECTION 100 MCG/2 ML AMP IVP STA (21:48)
[2016-09-25 21:49] LABS: BILIRUBIN,URINE NEGATIVE (NEGATIVE); KETONES,URINE NEGATIVE (NEGATIVE); LEUKOCYTE ESTERASE ,URINE 1+ (NEGATIVE); NITRITE,URINE NEGATIVE (NEGATIVE); PH,URINE 6 (5-9); PROTEIN,URINE 2+ (NEGATIVE); UROBILINOGEN,URINE NORMAL (NORMAL)
[2016-09-25] MEDS ORDERED: ONDANSETRON 4 MG/2 ML (SDV) Z0FRAN IVP ONE (22:00)
[2016-09-25 22:07] LABS: SQUAMOUS EPITHELIAL CELL,UR >50 /HPF; WBC,URINE 0-2 /HPF
[2016-09-25 22:08] LABS: HYALINE CASTS, URINE RARE /LPF
[2016-09-25 22:11] LABS: BASOPHILS % (AUTO) 0 % (0-10); EOSINOPHILS % (AUTO) 0 % (0-10); LYMPHOCYTES # (AUTO) 2.5 X 10^3 (1.0-4.0); LYMPHOCYTES % (AUTO) 37 % (12-44); MEAN CORPUSCULAR HEMOGLOBIN 31 PG (25-34); MEAN CORPUSCULAR HGB CONC 34 G/DL (32-36); MEAN CORPUSCULAR VOLUME 91 FL (80-99); MONOCYTES # (AUTO) 0.6 X 10^3 (0.0-1.0); MONOCYTES % (AUTO) 8 % (0-12); NEUTROPHILS # (AUTO) 3.7 X 10^3 (1.8-7.8); NEUTROPHILS % (AUTO) 55 % (42-75); PLATELET COUNT 296 10^3/uL (130-400); RED BLOOD COUNT 3.87 10^6/uL (4.35-5.85); RED CELL DISTRIBUTION WIDTH 13.4 % (10.0-14.5); WHITE BLOOD COUNT 6.9 10^3/uL (4.3-11.0)
[2016-09-25 22:32] LABS: ALBUMIN 4.1 G/DL (3.2-4.5); BILIRUBIN,TOTAL 0.2 MG/DL (0.1-1.0); CREATININE SERUM 1.28 MG/DL (0.60-1.30); POTASSIUM 3.4 MMOL/L (3.6-5.0); TOTAL PROTEIN 6.9 G/DL (6.4-8.2)
[2016-09-25] MEDS ORDERED: ONDN4T PO (22:38)
[2016-09-25] MEDS ORDERED: POLY17PO6 PO (22:38)
[2016-09-25 22:51] VITALS: BP 139/94
== END 2016-09-25 22:51 | disposition home or self-care (01) ==
LOC: EDUNIT# 20:43 → ER 20:46
DX: R53.83 Other fatigue (principal); R11.0 Nausea; I10 Essential (primary) hypertension; M54.5 Low back pain; F17.210 Nicotine dependence, cigarettes, uncomplicated; Z79.899 Other long term (current) drug therapy
CPT/HCPCS: 36415; 80053; 81000; 82962; 84703; 85025; 96374; 96375

== ENCOUNTER 2016-12-06 19:51 | Emergency (ER) | payer SELFPAY ==
[~2016-12-06] VITALS: Ht 170.2 cm; Wt 99.8 kg
[~2016-12-06 19:51] MED LIST changes: +ALPR2TAB2 PO; +AMIT25TA9 PO; +AMLO5TAB4 PO; +CHOL500049 PO; +MIRT30TA PO; +ONDN4T PO; +POLY17PO6 PO
--- OUTSIDE RECORDS SUMMARY | 2016-12-06 20:05 | XMS REPORT | Continuity of Care Document ---
Author Author [facility] Address Unknown Phone Unavailable Allergies Active Description [...] Latex OA N/A N/A 04/26/2013 Yes amoxicillin [id number] Drug Allergy Unknown N/A 07/31/2014 Yes hydrocodone [id number] Drug Allergy Unknown N/A 07/31/2014 Yes morphine [id number] Drug Allergy Unknown N/A 07/31/2014 Yes paroxetine [id number] Drug Allergy Unknown N/A 07/31/2014 Yes Sulfa (Sulfonamide Antibiotics) [id number] Drug Allergy Unknown N/A 07/31/2014 Yes sulfamethoxazole [id number] Drug Allergy Unknown N/A 07/31/2014 Yes trimethoprim [id number] Drug Allergy Unknown N/A 07/31/2014 Yes Abilify [...] 884.0 WOUND OPEN UPPER LIMB 12/25/2007 GIBSON FRUIT FARMER, MANAV ALVES 682.9 CELLULITIS AND ABSCESS OF [...] AND ABSCESS OF UNSPECIFIED SITES 12/25/2007 TIN HEREDIA PSYD L 884.0 Wound Open Upper Limb [...] 884.0 Wound Open Upper Limb 12/25/2007 CHRISTEL ENGINEER STATION MAINLINE, CARLOS M 682.9 CELLULITIS AND ABSCESS OF [...] 296.90 MO MOOD DIS NOS 05/27/2010 GIBSON FRUIT FARMER, MANAV ALVES 301.83 PD BORDERLINE 05/27/2010 RAMON FRUIT FARMER, MAU A 296.90 MO MOOD DIS NOS 05/27/2010 RAMON FRUIT FARMER, MAU A 301.83 PD BORDERLINE 05/27/2010 GIBSON FRUIT FARMER, MANAV ALVES 296.90 MO MOOD DIS NOS [...] DIMPLE K 301.83 PD BORDERLINE 05/27/2010 MANAV GBISON APRN 296.90 MO MOOD DIS NOS 05/27/2010 [...] MD N 301.83 PD BORDERLINE 05/27/2010 CHRISTEL ENGINEER STATION MAINLINE, CARLOS M 296.90 MO MOOD DIS NOS 05/27/2010 CHRISTEL ENGINEER STATION MAINLINE, CARLOS M 301.83 PD BORDERLINE 05/27/2010 CHRISTEL ENGINEER STATION MAINLINE, CARLOS M 296.90 MO MOOD DIS NOS 05/27/2010 CHRISTEL ENGINEER STATION MAINLINE, CARLOS M 301.83 PD BORDERLINE 05/27/2010 CHRISTEL ENGINEER STATION MAINLINE, CARLOS M 296.90 MO MOOD DIS NOS 05/27/2010 CHRISTEL ENGINEER STATION MAINLINE, CARLOS M 301.83 PD BORDERLINE 05/27/2010 CHRISTEL ENGINEER STATION MAINLINE, CARLOS M 296.90 MO MOOD DIS NOS 05/27/2010 CHRISTEL ENGINEER STATION MAINLINE, CARLOS M 301.83 PD BORDERLINE 06/17/2010 296.80 [...] K 300.02 AN GEN ANXIETY 06/17/2010 GIBSON FRUIT FARMER, MANAV ALVES 296.80 MO BIPOLAR NOS 06/17/2010 GIBSON FRUIT FARMER, MANAV ALVES 300.02 AN GEN ANXIETY 06/17/2010 RAMON FRUIT FARMER, MAU A 296.80 MO BIPOLAR NOS 06/17/2010 RAMON FRUIT FARMER, MAU A 300.02 AN GEN ANXIETY 06/17/2010 GIBSON FRUIT FARMER, MANAV ALVES 296.80 MO BIPOLAR NOS 06/17/2010 GIBSON FRUIT FARMER, MANAV ALVES 300.02 AN GEN ANXIETY 06/17/2010 [...] MD 300.02 AN GEN ANXIETY 06/17/2010 CHRISTEL ENGINEER STATION MAINLINE, CARLOS M 296.80 MO BIPOLAR NOS 06/17/2010 CHRISTEL ENGINEER STATION MAINLINE, CARLOS M 300.02 AN GEN ANXIETY 06/17/2010 CHRISTEL ENGINEER STATION MAINLINE, CARLOS M 296.80 MO BIPOLAR NOS 06/17/2010 CHRISTEL ENGINEER STATION MAINLINE, CARLOS M 300.02 AN GEN ANXIETY 06/17/2010 CHRISTEL ENGINEER STATION MAINLINE, CARLOS M 296.80 MO BIPOLAR NOS 06/17/2010 CHRISTEL ENGINEER STATION MAINLINE, CARLOS M 300.02 AN GEN ANXIETY 06/17/2010 CHRISTEL ENGINEER STATION MAINLINE, CARLOS M 296.80 MO BIPOLAR NOS 06/17/2010 CHRISTEL ENGINEER STATION MAINLINE, CARLOS M 300.02 AN GEN ANXIETY 10/14/2010 [...] N 296.89 MO BIPOLAR II 10/14/2010 CHRISTEL ENGINEER STATION MAINLINE, CARLOS M 296.89 MO BIPOLAR II 10/14/2010 CHRISTEL ENGINEER STATION MAINLINE, CARLOS M 296.89 MO BIPOLAR II 10/14/2010 CHRISTEL ENGINEER STATION MAINLINE, CARLOS M 296.89 MO BIPOLAR II 10/14/2010 CHRISTEL ENGINEER STATION MAINLINE, CARLOS M 296.89 MO BIPOLAR II 03/22/2011 V72.31 PERSONNEL INTERVIEWER EXAM, ROUTINE 03/22/2011 V72.31 PERSONNEL INTERVIEWER EXAM, ROUTINE 03/22/2011 V72.31 PERSONNEL INTERVIEWER EXAM, ROUTINE 03/22/2011 MANAV GIBSON APRN V72.31 PERSONNEL INTERVIEWER EXAM, ROUTINE 03/22/2011 MANAV GIBSON APRN V72.31 PERSONNEL INTERVIEWER EXAM, ROUTINE 03/22/2011 V72.31 PERSONNEL INTERVIEWER EXAM, ROUTINE 03/22/2011 DIMPLE PEÑALOZA DO V72.31 PERSONNEL INTERVIEWER EXAM, ROUTINE 03/22/2011 V72.31 PERSONNEL INTERVIEWER EXAM, ROUTINE 03/22/2011 V72.31 PERSONNEL INTERVIEWER EXAM, ROUTINE 03/22/2011 V72.31 PERSONNEL INTERVIEWER EXAM, ROUTINE 03/22/2011 DIMPLE PEÑALOZA DO V72.31 PERSONNEL INTERVIEWER EXAM, ROUTINE 03/22/2011 TEOFILO FELICIANO MD V72.31 PERSONNEL INTERVIEWER EXAM, ROUTINE 03/22/2011 DIMPLE PEÑALOZA DO V72.31 PERSONNEL INTERVIEWER EXAM, ROUTINE 03/22/2011 MANAV GIBSON APRN V72.31 PERSONNEL INTERVIEWER EXAM, ROUTINE 03/22/2011 MAU NAVARRO APRN V72.31 PERSONNEL INTERVIEWER EXAM, ROUTINE 03/22/2011 MANAV GIBSON APRN V72.31 PERSONNEL INTERVIEWER EXAM, ROUTINE 03/22/2011 WENDI BLACK MD V72.31 PERSONNEL INTERVIEWER EXAM, ROUTINE 03/22/2011 WENDI BLACK MD V72.31 PERSONNEL INTERVIEWER EXAM, ROUTINE 03/22/2011 PEÑALOZA DIMPLE YEPEZ V72.31 PERSONNEL INTERVIEWER EXAM, ROUTINE 03/22/2011 MANAV GIBSON APRN V72.31 PERSONNEL INTERVIEWER EXAM, ROUTINE 03/22/2011 PEÑALOZA DIMPLE YEPEZ V72.31 PERSONNEL INTERVIEWER EXAM, ROUTINE 03/22/2011 WENDI BLACK MD V72.31 PERSONNEL INTERVIEWER EXAM, ROUTINE 03/22/2011 WENDI BLACK MD V72.31 PERSONNEL INTERVIEWER EXAM, ROUTINE 03/22/2011 TIN HEREDIA PSYD V72.31 PERSONNEL INTERVIEWER EXAM, ROUTINE 03/22/2011 WENDI BLACK MD V72.31 PERSONNEL INTERVIEWER EXAM, ROUTINE 03/22/2011 SOFIA RICE, WENDI Dupont V72.31 PERSONNEL INTERVIEWER EXAM, ROUTINE 03/22/2011 CARLOS AHUJA M V72.31 PERSONNEL INTERVIEWER EXAM, ROUTINE 03/22/2011 CARLOS AHUJA M V72.31 PERSONNEL INTERVIEWER EXAM, ROUTINE 03/22/2011 CHRISTEL ENGINEER STATION MAINLINECARLOS M V72.31 PERSONNEL INTERVIEWER EXAM, ROUTINE 03/22/2011 CHRISTEL ENGINEER STATION MAINLINE, CARLOS M V72.31 PERSONNEL INTERVIEWER EXAM, ROUTINE 05/26/2011 465.9 UPPER RESPIRATORY INFECTION [...] N 465.9 UPPER RESPIRATORY INFECTION 05/26/2011 CHRISTEL ENGINEER STATION MAINLINE, CARLOS M 465.9 UPPER RESPIRATORY INFECTION 05/26/2011 CHRISTEL ENGINEER STATION MAINLINE, CARLOS M 465.9 UPPER RESPIRATORY INFECTION 05/26/2011 CHRISTEL ENGINEER STATION MAINLINE, CARLOS M 465.9 UPPER RESPIRATORY INFECTION 05/26/2011 CHRISTEL ENGINEER STATION MAINLINE, CARLOS M 465.9 UPPER RESPIRATORY INFECTION 07/14/2011 [...] A 401.1 HYPERTENSION, BENIGN ESSENTIAL 07/14/2011 RAMON FRUIT FARMER, MAU A 783.5 Polydipsia 07/14/2011 RAMON HECK, MAU A V18.0 FAMILY HISTORY OF DIABETES MELLITUS 07/14/2011 GIBSON FRUIT FARMER, MANAV ALVES 401.1 HYPERTENSION, BENIGN ESSENTIAL 07/14/2011 [...] FAMILY HISTORY OF DIABETES MELLITUS 07/14/2011 GIBSON FRUIT FARMER, MANAV ALVES 401.1 HYPERTENSION, BENIGN ESSENTIAL 07/14/2011 [...] FAMILY HISTORY OF DIABETES MELLITUS 07/14/2011 CHRISTEL ENGINEER STATION MAINLINE, CARLOS M 401.1 HYPERTENSION, BENIGN ESSENTIAL 07/14/2011 CHRISTEL ENGINEER STATION MAINLINE, CARLOS M 783.5 Polydipsia 07/14/2011 CHRISTEL ENGINEER STATION MAINLINE, CARLOS M V18.0 FAMILY HISTORY OF DIABETES MELLITUS 07/14/2011 CHRISTEL ENGINEER STATION MAINLINE, CARLOS M 401.1 HYPERTENSION, BENIGN ESSENTIAL 07/14/2011 CHRISTEL ENGINEER STATION MAINLINE, CARLOS M 783.5 Polydipsia 07/14/2011 CHRISTEL ENGINEER STATION MAINLINE, CARLOS M V18.0 FAMILY HISTORY OF DIABETES MELLITUS 07/14/2011 CHRISTEL ENGINEER STATION MAINLINE, CARLOS M 401.1 HYPERTENSION, BENIGN ESSENTIAL 07/14/2011 CHRISTEL ENGINEER STATION MAINLINE, CARLOS M 783.5 Polydipsia 07/14/2011 CHRISTEL ENGINEER STATION MAINLINE, CARLOS M V18.0 FAMILY HISTORY OF DIABETES MELLITUS 07/14/2011 CHRISTEL ENGINEER STATION MAINLINE, CARLOS M 401.1 HYPERTENSION, BENIGN ESSENTIAL 07/14/2011 CHRISTEL ENGINEER STATION MAINLINE, CARLOS M 783.5 Polydipsia 07/14/2011 CHRISTEL ENGINEER STATION MAINLINE, CARLOS M V18.0 FAMILY HISTORY OF DIABETES [...] PEÑALOZA DO DIMPLE K 272.4 HYPERLIPIDEMIA 07/16/2011 APIGE HECK MANAV WHITEH 272.4 HYPERLIPIDEMIA 07/16/2011 PEÑALOZA DO, DIMPLE K 272.4 HYPERLIPIDEMIA 07/16/2011 SOFIA RICE, WENDI N 272.4 HYPERLIPIDEMIA 07/16/2011 SOFIA RICE, WENDI N 272.4 HYPERLIPIDEMIA 07/16/2011 TIN HEREDIA PSYD 272.4 HYPERLIPIDEMIA 07/16/2011 SOFIA RICE, WENDI N 272.4 HYPERLIPIDEMIA 07/16/2011 SOFIA RICE, WENDI N 272.4 HYPERLIPIDEMIA 07/16/2011 CHRISTEL SALAZAR, CARLOS M 272.4 HYPERLIPIDEMIA 07/16/2011 CHRISTEL ENGINEER STATION MAINLINE, CARLOS M 272.4 HYPERLIPIDEMIA 07/16/2011 CHRISTEL ENGINEER STATION MAINLINE, CARLOS M 272.4 HYPERLIPIDEMIA 07/16/2011 CHRISTEL ENGINEER STATION MAINLINE, CARLOS M 272.4 HYPERLIPIDEMIA 11/15/2011 054.10 GENITAL [...] CARLOS AHUJA 054.10 GENITAL HERPES UNSPECIFIED 11/15/2011 CAROLS AHUJA 054.10 GENITAL HERPES UNSPECIFIED 03/27/2012 786.05 SHORTNESS OF BREATH 03/27/2012 786.50 CHEST PAIN 03/27/2012 787.02 NAUSEA ALONE 03/27/2012 786.05 SHORTNESS OF BREATH 03/27/2012 786.50 CHEST PAIN 03/27/2012 787.02 NAUSEA ALONE 03/27/2012 786.05 SHORTNESS OF BREATH 03/27/2012 786.50 CHEST PAIN 03/27/2012 787.02 NAUSEA ALONE 03/27/2012 MANAV GIBSON APRN 786.05 SHORTNESS OF BREATH 03/27/2012 MANAV GIBSON APRN 786.50 CHEST PAIN 03/27/2012 GIBSON FRUIT FARMER, MANAV ALVES 787.02 NAUSEA ALONE 03/27/2012 PAIGE [...] DIMPLE K 787.02 Nausea Alone 03/27/2012 GIBSON FRUIT FARMER, MANAV ALVES 786.05 Shortness Of Breath 03/27/2012 GIBSON FRUIT FARMER, MANAV ALVES 786.50 Chest Pain 03/27/2012 GIBSON FRUIT FARMER, MANAV ALVES 787.02 Nausea Alone 03/27/2012 RAMON FRUIT FARMER, MAU A 786.05 Shortness Of Breath 03/27/2012 RAMON FRUIT FARMER, MAU A 786.50 Chest Pain 03/27/2012 RAMON FRUIT FARMER, MAU A 787.02 Nausea Alone 03/27/2012 GIBSON FRUIT FARMERMANAV 786.05 Shortness Of Breath 03/27/2012 GIBSON FRUIT FARMER, MANAV ALVES 786.50 Chest Pain 03/27/2012 GIBSON FRUIT FARMERMANAV 787.02 Nausea Alone 03/27/2012 WENDI BLACK MD [...] DIMPLE K 787.02 Nausea Alone 03/27/2012 GIBSON FRUIT FARMERMANAV 786.05 Shortness Of Breath 03/27/2012 GIBSON FRUIT FARMER, MANAV ALVES 786.50 Chest Pain 03/27/2012 GIBSON FRUIT FARMER, MANAV WHITEH 787.02 Nausea Alone 03/27/2012 PEÑALOZA [...] MD N 787.02 Nausea Alone 03/27/2012 CHRISTEL ENGINEER STATION MAINLINE, CARLOS M 786.05 Shortness Of Breath 03/27/2012 CHRISTEL ENGINEER STATION MAINLINE, CARLOS M 786.50 Chest Pain 03/27/2012 CHRISTEL ENGINEER STATION MAINLINE, CARLOS M 787.02 Nausea Alone 03/27/2012 CHRISTEL ENGINEER STATION MAINLINE, CARLOS M 786.05 Shortness Of Breath 03/27/2012 CHRISTEL ENGINEER STATION MAINLINE, CARLOS M 786.50 Chest Pain 03/27/2012 CHRISTEL ENGINEER STATION MAINLINE, CARLOS M 787.02 Nausea Alone 03/27/2012 CHRISTEL ENGINEER STATION MAINLINE, CARLOS M 786.05 Shortness Of Breath 03/27/2012 CHRISTEL ENGINEER STATION MAINLINE, CARLOS M 786.50 Chest Pain 03/27/2012 CHRISTEL ENGINEER STATION MAINLINE, CARLOS M 787.02 Nausea Alone 03/27/2012 CHRISTEL ENGINEER STATION MAINLINE, CARLOS M 786.05 Shortness Of Breath 03/27/2012 CHRISTEL ENGINEER STATION MAINLINE, CARLOS M 786.50 Chest Pain 03/27/2012 CHRISTEL ENGINEER STATION MAINLINE, CARLOS M 787.02 Nausea Alone 06/21/2012 MANAV [...] OTHER SKIN AND SUBCUTANEOUS TISSUE 08/24/2012 MAU ANVARRO APRN A 214.1 LIPOMA OF OTHER SKIN [...] OF OTHER SKIN AND SUBCUTANEOUS TISSUE 08/24/2012 ACRLOS AHUJA 214.1 LIPOMA OF OTHER SKIN AND [...] RICE, WENDI N 782.3 EDEMA 10/30/2012 CHRISTEL ENGINEER STATION MAINLINE, CARLOS M 782.3 EDEMA 10/30/2012 CHRISTEL ENGINEER STATION MAINLINE, CARLOS M 782.3 EDEMA 10/30/2012 CHRISTEL ENGINEER STATION MAINLINE, CARLOS M 782.3 EDEMA 10/30/2012 CHRISTEL ENGINEER STATION MAINLINE, CARLOS M 782.3 EDEMA 11/07/2012 008.8 GASTROENTERITIS, [...] CARLOS M 008.8 GASTROENTERITIS, VIRAL 11/07/2012 CHRISTEL ENGINEER STATION MAINLINE, CARLOS M 008.8 GASTROENTERITIS, VIRAL 11/07/2012 CHRISTEL SALAZAR, CARLOS M 008.8 GASTROENTERITIS, VIRAL 03/08/2013 TEOFILO FELICIANO MD 728.87 MUSCLE WEAKNESS (GENERALIZED) 03/08/2013 DIMPLE [...] MANAV ALVES 599.0 URINARY TRACT INFECTION 04/26/2013 MLIADY NAVARRO APRNIDI A 599.0 URINARY TRACT INFECTION [...] M 599.0 URINARY TRACT INFECTION 04/26/2013 CARLOS AUHJA M 599.0 URINARY TRACT INFECTION 04/26/2013 CHRISTEL [...] MD V76.10 BREAST CANCER SCREENING 10/02/2013 CHRISTEL ENGINEER STATION MAINLINE, CARLOS M V65.42 COUNSELING - SMOKING CESSATION 10/02/2013 CHRISTEL ENGINEER STATION MAINLINE, CARLOS M V74.5 STD SCREEN 10/02/2013 CHRISTEL ENGINEER STATION MAINLINE, CARLOS M V76.10 BREAST CANCER SCREENING 10/02/2013 CHRISTEL ENGINEER STATION MAINLINE, CARLOS M V65.42 COUNSELING - SMOKING CESSATION 10/02/2013 CHRISTEL ENGINEER STATION MAINLINE, CARLOS M V74.5 STD SCREEN 10/02/2013 CHRISTEL ENGINEER STATION MAINLINE, CARLOS M V76.10 BREAST CANCER SCREENING 10/02/2013 CHRISTEL ENGINEER STATION MAINLINE, CARLOS M V65.42 COUNSELING - SMOKING CESSATION 10/02/2013 CHRISTEL ENGINEER STATION MAINLINE, CARLOS M V74.5 STD SCREEN 10/02/2013 CHRISTEL ENGINEER STATION MAINLINE, CARLOS M V76.10 BREAST CANCER SCREENING 10/02/2013 CHRISTEL ENGINEER STATION MAINLINE, CARLOS M V65.42 COUNSELING - SMOKING CESSATION 10/02/2013 CHRISTEL ENGINEER STATION MAINLINE, CARLOS M V74.5 STD SCREEN 10/02/2013 CHRISTEL ENGINEER STATION MAINLINE, CARLOS M V76.10 BREAST CANCER SCREENING 01/01/2014 [...] AHUJA M 599.70 HEMATURIA UNSPECIFIED 01/01/2014 CHRISTEL ENGINEER STATION MAINLINECARLOS M 724.2 LUMBAGO 01/01/2014 CARLOS AHUJA M 307.42 PERSISTENT DISORDER OF INITIATING OR MAINTAINING SLEEP 01/01/2014 CARLOS AHUJA M 599.70 HEMATURIA UNSPECIFIED 01/01/2014 CHRISTEL ENGINEER STATION MAINLINECARLOS M 724.2 LUMBAGO 01/01/2014 CARLOS AHUJA M 307.42 PERSISTENT DISORDER OF INITIATING OR MAINTAINING SLEEP 01/01/2014 CARLOS AHUJA M 599.70 HEMATURIA UNSPECIFIED 01/01/2014 CHRISTEL ENGINEER STATION MAINLINEACRLOS M 724.2 LUMBAGO 01/01/2014 CHRISTEL ENGINEER STATION MAINLINECARLOS M 307.42 PERSISTENT DISORDER OF INITIATING OR [...] AHUJA M 466.0 BRONCHITIS, ACUTE 02/17/2014 CHRISTEL ENGINEER STATION MAINLINECARLOS M 466.0 BRONCHITIS, ACUTE 02/17/2014 CHRISTEL ENGINEER STATION MAINLINE, CARLOS M 466.0 BRONCHITIS, ACUTE 02/17/2014 CHRISTEL ENGINEER STATION MAINLINE, CARLOS M 466.0 BRONCHITIS, ACUTE 05/21/2014 WENDI BLACK MD N 388.70 OTALGIA UNSPECIFIED 05/21/2014 WENDI BLACK MD N 388.70 OTALGIA UNSPECIFIED 05/21/2014 TIN HEREDIA PSYD 388.70 OTALGIA UNSPECIFIED 05/21/2014 WENDI BLACK MD [...] WITHOUT MENTION OF STATUS MIGRAINOSUS 06/26/2014 CHRISTEL ENGINEER STATION MAINLINECARLOS M 786.50 CHEST PAIN 06/26/2014 CHRISTEL ENGINEER STATION MAINLINECARLOS M 346.80 OTHER FORMS OF MIGRAINE WITHOUT INTRACTABLE MIGRAINE WITHOUT MENTION OF STATUS MIGRAINOSUS 06/26/2014 CHRISTEL ENGINEER STATION MAINLINECARLOS M 786.50 CHEST PAIN 06/26/2014 CHRISTEL ENGINEER STATION MAINLINECARLOS M 346.80 OTHER FORMS OF MIGRAINE WITHOUT INTRACTABLE MIGRAINE WITHOUT MENTION OF STATUS MIGRAINOSUS 06/26/2014 CHRISTEL ENGINEER STATION MAINLINECARLOS M 786.50 CHEST PAIN 06/26/2014 CHRISTEL ENGINEER STATION MAINLINECARLOS M 346.80 OTHER FORMS OF MIGRAINE WITHOUT [...] 786.50 12/02/2014 Ot V88.01 12/02/2014 SOCORRO KEATING FRUIT FARMER Ot 305.1 12/02/2014 SOCORRO KEATING FRUIT FARMER Ot 525.9 12/02/2014 SOCORRO KEATING FRUIT FARMER Ot 526.5 12/02/2014 BRAYDEN DILLONC, DIANE FACP [...] FACP CCDS Ot 401.9 06/02/2015 BRAYDEN DILLONC, [facility] CCDS Ot 786.50 06/02/[address] [facility], [facility] CCDS Ot V88.01 06/02/2015 Ot 272.4 06/02/2015 [...] OTHER EXTERNAL CAUSE STATUS 03/01/2016 SOCORRO KEATING FRUIT FARMER Ot I10 ESSENTIAL (PRIMARY) HYPERTENSION 03/01/2016 SOCORRO KEATING FRUIT FARMER Ot K52.9 NONINFECTIVE GASTROENTERITIS AND COLITIS 03/01/2016 SOCORRO KEATING FRUIT FARMER Ot R11.2 NAUSEA WITH VOMITING, UNSPECIFIED 03/01/2016 SOCORRO KEATING FRUIT FARMER Ot Z79.899 OTHER DISPATCHER RADIO (CURRENT) DRUG THERAPY 03/02/2016 SOCORRO KEATING FRUIT FARMER Ot I10 ESSENTIAL (PRIMARY) HYPERTENSION 03/02/2016 SOCORRO KEATING FRUIT FARMER Ot K52.9 NONINFECTIVE GASTROENTERITIS AND COLITIS 03/02/2016 SOCORRO KEATING FRUIT FARMER Ot R11.2 NAUSEA WITH VOMITING, UNSPECIFIED 03/02/2016 SOCORRO KEATING FRUIT FARMER Ot Z79.899 OTHER SENIOR CARE (CURRENT) DRUG THERAPY 03/02/2016 SOCORRO KEATING FRUIT FARMER Ot I10 ESSENTIAL (PRIMARY) HYPERTENSION 03/02/2016 SOCORRO KEATING FRUIT FARMER Ot K52.9 NONINFECTIVE GASTROENTERITIS AND COLITIS 03/02/2016 SOCORRO KEATING FRUIT FARMER Ot R11.2 NAUSEA WITH VOMITING, UNSPECIFIED 03/02/2016 SOCORRO KEATING APRN Ot Z79.899 OTHER DISPATCHER RADIO (CURRENT) DRUG THERAPY 03/05/2016 SOCORRO KEATING FRUIT FARMER Ot I10 ESSENTIAL (PRIMARY) HYPERTENSION 03/05/2016 SOCORRO KEATING APRN Ot K52.9 NONINFECTIVE GASTROENTERITIS AND COLITIS 03/05/2016 SOCORRO KEATING FRUIT FARMER Ot R11.2 NAUSEA WITH VOMITING, UNSPECIFIED 03/05/2016 SOCORRO KEATING FRUIT FARMER Ot Z79.899 OTHER SENIOR CARE (CURRENT) DRUG THERAPY 03/08/2016 SOCORRO KEATING FRUIT FARMER Ot I10 ESSENTIAL (PRIMARY) HYPERTENSION 03/08/2016 SOCORRO KEATING FRUIT FARMER Ot K52.9 NONINFECTIVE GASTROENTERITIS AND COLITIS 03/08/2016 SOCORRO KEATING FRUIT FARMER Ot R11.2 NAUSEA WITH VOMITING, UNSPECIFIED 03/08/2016 SOCORRO KEATING FRUIT FARMER Ot Z79.899 OTHER SENIOR CARE (CURRENT) DRUG THERAPY 03/14/2016 SOCORRO KEATING FRUIT FARMER Ot I10 ESSENTIAL (PRIMARY) HYPERTENSION 03/14/2016 SOCORRO KEATING FRUIT FARMER Ot K52.9 NONINFECTIVE GASTROENTERITIS AND COLITIS 03/14/2016 SOCORRO KEATING FRUIT FARMER Ot R11.2 NAUSEA WITH VOMITING, UNSPECIFIED 03/14/2016 SOCORRO KEATING FRUIT FARMER Ot Z79.899 OTHER DISPATCHER RADIO (CURRENT) DRUG THERAPY 06/30/2016 ALVARO CABRERA MD [...] 08/17/2016 GUY XIAO DO Ot Z79.899 OTHER DISPATCHER RADIO (CURRENT) DRUG THERAPY 09/17/2016 ANKIT BE MD Ot F17.210 NICOTINE DEPENDENCE, CIGARETTES, UNCOMPL 09/17/2016 ANKIT BE MD Ot I10 ESSENTIAL (PRIMARY) HYPERTENSION 09/17/2016 ANKIT BE MD Ot N17.9 ACUTE KIDNEY FAILURE, UNSPECIFIED 09/17/2016 ANKIT BE MD Ot R39.15 URGENCY OF URINATION 09/27/2016 CRYSTAL SINGLETON MD Ot F17.210 NICOTINE DEPENDENCE, CIGARETTES, UNCOMPL 09/27/2016 CRYSTAL SINGLETON MD Ot I10 ESSENTIAL (PRIMARY) HYPERTENSION 09/27/2016 CRYSTAL SINGLETON MD Ot M54.5 LOW BACK PAIN 09/27/2016 CRYSTAL SINGLETON MD Ot R11.0 NAUSEA 09/27/2016 CRYSTAL SINGLETON MD Ot R53.83 OTHER FATIGUE 09/27/2016 CRYSTAL SINGLETON MD Ot Z79.899 OTHER DISPATCHER RADIO (CURRENT) DRUG THERAPY 10/01/2016 CRYSTAL SINGLETON MD Ot F17.210 NICOTINE DEPENDENCE, CIGARETTES, UNCOMPL 10/01/2016 CRYSTAL SINGLETON MD Ot I10 ESSENTIAL (PRIMARY) HYPERTENSION 10/01/2016 CRYSTAL SINGLETON MD Ot M54.5 LOW BACK PAIN 10/01/2016 CRYSTAL SINGLETON MD Ot R11.0 NAUSEA 10/01/2016 CRYSTAL SINGLETON MD Ot R53.83 OTHER FATIGUE 10/01/2016 CRYSTAL SINGLETON MD Ot Z79.899 OTHER SENIOR CARE (CURRENT) DRUG THERAPY Procedures Code Description [place] [address] UA W/ CULTURE IF INDICATED 06/15/2012 51886 PSYCH IND W/MED CK 20 08/10/2012 33599 ROUTINE VENIPUNCTURE 10/30/2012 05408 BNP 10/30/2012 91770 CMP 10/30/2012 [id number] GFR CALC (RESULT ONLY) 10/30/2012 56332 H PYLORI (IN-HOUSE) 11/07/2012 81545 ROUTINE VENIPUNCTURE 03/08/2013 39244 A1C (IN-HOUSE) 65007 ESR/SED RATE 65535 CBC 03/08/2013 93724 CRP 03/08/2013 73653 TSH 03/08/2013 26153 CPK 03/08/2013 26173 CMP 03/08/2013 8578505 GFR CALC (RESULT ONLY) 03/08/2013 ANAANA CALLUM ANALYZER (SCREEN) 03/09/2013 GRAVSPANL MYASTHENIA GRAVIS PANEL 03/18/2013 13478 UA W/ CULTURE IF INDICATED 04/26/2013 51314 CULTURE URINE 78397 ROUTINE VENIPUNCTURE 10/02/2013 68157 TRICHOMONAS (IN-HOUSE) 10/02/2013 88516 SYPHILLIS-STATE [facility] 10/02/2013 98772 HIV (STATE [facility]) 10/02/2013 59237 GC/CHLAM PROBE (STATE) 10/02/2013 65902 CULTURE UROGENITAL 10/03/2013 62116 UA W/ CULTURE IF INDICATED 01/01/2014 61025 UA LONG DIP 02/17 90071 ROUTINE VENIPUNCTURE 05/21/2014 99474 SED/ESR RATE (IN HOUSE) 05/21/2014 83752 LIPID PANEL 05/21 24692 PSYCH DIAGNOSTIC EVALUATION 06/25/2014 31886 ROUTINE VENIPUNCTURE 06/26/2014 80845 EKG, TRACING (IN-HOUSE) 06/26/2014 26104 CMP 06/26/2014 65112 MAGNESIUM 2014 29122 TSH 06/26/2014 CARDIOLOG LIN POWERS 06/26/2014 76517 CBC 06/26/2014 50387 PSYTX PT&/FAMILY 45 MINUTES 07/28/2014 Results Test [...] 03/01/16 15:35 Blood monocytes/100 leukocytes 0 % NRG Manual blood segmented neutrophils/100 leukocytes 80 % NRG Blood band neutrophils/100 leukocytes 9 % NRG Manual blood lymphocytes/100 leukocytes 11 % NRG Manual eosinophils/100 leukocytes in nose 0 % NRG Manual blood basophils/100 leukocytes 0 % NRG Blood erythrocyte morphology finding identification [facility] Comprehensive metabolic panel - [...] Status Pt. Type Provider Facility Loc./Unit Complaint [id number] 08/22/2014 13:09:00 08/22/2014 23: 59:59 CLS Outpatient CHRISTEL CNSCARLOS [id number] 07/28/2014 09:24:00 07/28/2014 23: 59:59 CLS Outpatient CHRISTEL CNSCARLOS [id number] 07/28/2014 09:24:00 07/28/2014 23: 59:59 CLS Outpatient CHRISTEL SALAZARCARLOS [id number] 07/16/2014 09:41:00 07/16/2014 23: 59:59 CLS Outpatient WENDI BLACK MD [id number] 06/26/2014 13:30:00 06/26/2014 23: 59:59 CLS Outpatient WENDI BLACK MD [id number] 06/26/2014 13:30:00 06/26/2014 23: 59:59 CLS Outpatient WENDI BLACK MD [id number] 06/25/2014 10:06:00 06/25/2014 23: 59:59 CLS Outpatient TIN HEREDIA PSYD [id number] 06/23/2014 08:04:00 06/23/2014 23: 59:59 CLS Outpatient CHRISTEL SALAZARALBERTOCARLOS M [id number] 05/21/2014 11:37:00 05/21/2014 23: 59:59 CLS Outpatient WENDI BLACK MD [id number] 05/21/2014 11:37:00 05/21/2014 23: 59:59 CLS Outpatient WENDI BLACK MD [id number] 02/21/2014 16:26:00 02/21/2014 23: 59:59 CLS Outpatient PAIGE HECKMANAV [id number] 02/17/2014 14:00:00 02/17/2014 23: 59:59 CLS Outpatient DIMPLE PEÑALOZA DO [id number] 02/17/2014 14:00:00 02/17/2014 23: 59:59 CLS Outpatient DIMPLE PEÑALOZA DO [id number] 01/01/2014 10:30:00 01/01/2014 23: 59:59 CLS Outpatient WENDI BLACK MD [id number] 01/01/2014 10:30:00 01/01/2014 23: 59:59 CLS Outpatient WENDI BLACK MD [id number] 10/23/2013 10:35:00 10/23/2013 23: 59:59 CLS Outpatient MANAV GIBSON APRN [id number] 10/02/2013 10:27:00 10/02/2013 23: 59:59 CLS Outpatient MAU NAVARRO APRN [id number] 07/26/2013 11:02:00 07/26/2013 23: 59:59 CLS Outpatient MANAV GIBSON APRN [id number] 04/26/2013 13:33:00 04/26/2013 23: 59:59 CLS Outpatient DIMPLE PEÑALOZA DO [id number] 03/08/2013 14:50:00 03/08/2013 23: 59:59 CLS Outpatient TEOFILO FELICIANO MD [id number] 09/04/2012 15:25:00 09/04/2012 23: 59:59 CLS Outpatient DIMPLE PEÑALOZA DO [id number] 08/24/2012 15:09:00 08/24/2012 23: 59:59 CLS Outpatient [id number] 08/10/2012 09:40:00 08/10/2012 23: 59:59 CLS Outpatient MANAV GIBSON APRN [id number] 06/21/2012 11:34:00 06/21/2012 23: 59:59 CLS Outpatient MANAV GIBSON APRN [id number] 06/18/2012 08:06:00 06/18/2012 23: 59:59 CLS Outpatient [id number] 06/15/2012 12:10:00 06/15/2012 23: 59:59 CLS Outpatient [id number] 04/23/2012 13:28:00 04/23/2012 23: 59:59 CLS Outpatient [id number] 03/27/2012 07:58:00 03/27/2012 23:59 :59 CLS Outpatient DIMPLE PEÑALOZA DO [id number] 11/07/2012 17:40:00 Document Registration [id number] 10/30/2012 15:03:00 Document Registration [id number] 09/20/2012 09:48:00 Document Registration
[2016-12-06] MEDS ORDERED: KETOROLAC 30 MG/ML VIAL IVP STA (20:19)
[2016-12-06] MEDS ORDERED: LACTATED RINGERS 1,000 ML IV ONE (20:19)
--- NOTE | 2016-12-06 20:28 | ED GI ---
General Stated Complaint: RT SIDED STOMACH PAIN/LOWER BACK PAIN/NAUSEA Source of Information: Patient History of Present Illness Time Seen By Provider: 20:12 Initial Comments PT ARRIVES VIA POV FROM WORK STATES SHE FELT FINE WHEN SHE GOT TO WORK THIS EVENING STATES APPROXIMATELY 2 HOURS AGO, SHE SUDDENLY GOT VERY HOT AND SWEATY AND HER SKIN WAS COLD, AND SHE FELT VERY WEAK AND DIZZY DRANK ORANGE JUICE WITHOUT IMPROVEMENT AT [facility] AND [facility] AROUND 1730 STATS 1 1/2 HOURS AGO, SHE WENT TO THE BATHROOM AND HAD DIARRHEA ( NO BLACK/ BLOODY/TARRY STOOLS) , AND THEN HAD SEVERE, GENERALIZED ABDOMINAL CRAMPING, RIGHT SIDE OF BACK IS CRAMPING AND LEGS AND FEET ARE CRAMPING --WHICH CONTINUE HAS HAD NAUSEA AND VOMITED X 2 PCP: DR. BLACK Allergies and Home Medications Allergies Coded Allergies: Sulfa (Sulfonamide Antibiotics) (Unverified Allergy, Unknown, 07/31/14) amoxicillin (Unverified Allergy, Unknown, 07/31/14) hydrocodone (Unverified Allergy, Unknown, 07/31/14) morphine (Unverified Allergy, Unknown, 07/31/14) paroxetine (Unverified Allergy, Unknown, 07/31/14) sulfamethoxazole (Unverified Allergy, Unknown, 07/31/14) trimethoprim (Unverified Allergy, Unknown, 07/31/14) Home Medications Acyclovir 400 Mg Tablet, #60 (Reported) Alprazolam 2 Mg Tablet, 2 MG PO TID PRN for ANXIETY, (Reported) Amitriptyline HCl 50 Mg Tablet, 50 MG PO HS, #30 (Reported) Amitriptyline HCl 25 Mg Tablet, 25 MG PO DAILY, (Reported) Amlodipine Besylate 5 Mg Tablet, 5 MG PO DAILY, (Reported) Cholecalciferol (Vitamin D3) 50,000 Unit Capsule, 50,000 UNIT PO WEEK, (Reported ) Dicyclomine HCl 10 Mg Capsule, 10 MG PO Q6H PRN for ABDOMINAL PAIN, #15 Prescribed by: GUY XIAO on 12/06/162154 Gabapentin 300 Mg Tablet, 900 MG PO BID, (Reported) Hyoscyamine Sulfate 0.125 Mg Tab.subl, 1-2 TAB SL Q4H, #10 Prescribed by: GUY XIAO on 12/06/162154 Lisinopril 10 Mg Tablet, Unknown Dose PO, (Reported) Mirtazapine 30 Mg Tablet, Unknown Dose PO, (Reported) Nitrofurantoin Monohyd/M-Cryst 100 Mg Capsule, 100 MG PO BID, #20 Prescribed by: GUY XIAO on 12/06/16 2207 Omeprazole 20 Mg Capsule.dr, 20 MG PO DAILY, (Reported) Ondansetron 4 Mg Tab.rapdis, 4 MG PO Q4H, #10 Prescribed by: GUY XIAO on 12/06/16 2155 Ondansetron HCl 4 Mg Tab, 4 MG PO Q6H PRN for NAUSEA/VOMITING-1ST LINE, #20 Ref 0 Prescribed by: CRYSTAL SINGLETON on 09/25/168 Polyethylene Glycol 3350 17 Gm Powd.pack, 17 GM PO BID PRN for 3 Days, #1 Ref 0 Prescribed by: CRYSTAL SINGLETON on 09/25/168 Review of Systems Constitutional: see HPI, chills, diaphoresis, dizziness, weakness EENTM: No Symptoms Reported Respiratory: No Symptoms Reported, Denies Cough, Denies Shortness of Air Cardiovascular: No Symptoms Reported, Denies Chest Pain Gastrointestinal: See HPI, Abdominal Pain, Diarrhea, Nausea, Poor Appetite, Poor Fluid Intake, Vomiting Genitourinary: Other (STATES SHE CAN'T URINATE AT THIS TIME) Musculoskeletal: see HPI, back pain, muscle cramps Skin: no symptoms reported Psychiatric/Neurological: See HPI, Anxiety Endocrine: No Symptoms Reported Hematologic/Lymphatic: No Symptoms Reported Past Ldrmupl-Vpuobe-Wnwmzs Hx Patient Social History Alcohol Use: Rarely Uses Recreational Drug Use: No Smoking Status: Current Everyday Smoker (1 PPD) Type Used: Cigarettes Recent Foreign Travel: No Contact w/Someone Who Travel: No Recent Hopitalizations: No Immunizations Up To Date Tetanus Booster (TDap): Less than 5yrs Seasonal Allergies Seasonal Allergies: No Surgeries HX Surgeries: Yes (WISDOM TOOTH; HYST/OVARIES INTACT; ERCP /STONE REMOVAL PRIOR TO CHOLECYSTECTOMY) Surgeries: Breast, Gallbladder, Hysterectomy, Nose Respiratory Hx Respiratory Disorders: Yes Respiratory Disorders: Asthma Cardiovascular Hx Cardiac Disorders: Yes Cardiac Disorders: High Cholesterol, Hypertension Neurological Hx Neurological Disorders: No 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 System Hx 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 Disorders: No Sexually Transmitted Disease: No HIV/AIDS: No TRA[employer]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: Hysterectomy Genitourinary Hx Genitourinary Disorders: Yes Genitourinary Disorders: UTI-Chronic Gastrointestinal Hx Gastrointestinal Disorders: No Musculoskeletal Hx Musculoskeletal Disorders: Yes (LEFT FOOT FRACTURE) Musculoskeletal Disorders: Fractures Endocrine Hx Endocrine Disorders: No HEENT HX ENT Disorders: No Cancer Hx Cancer: No Psychosocial Hx Psychiatric Problems: Yes (SUICIDAL IDEATION) Behavioral Health Disorders: Anxiety, Depression Integumentary HX Skin/Integumentary Disorder: No Blood Transfusions Hx Blood Disorders: No Adverse Reaction to a Blood Tr: No Family Medical History Significant Family History: No Pertinent Family Hx Physical Exam Vital Signs VS - Last 72 Hours, by Label 12/06/16 12/06/16 21:00 22:35 Temp 96.8 Pulse 86 74 Resp 14 14 B/P (MAP) 108/57 Pulse Ox 98 98 O2 Delivery Room Air Room Air Capillary Refill : General Appearance: obese, other (MOANING, DRAMATIC. HYPERVENTILATING. 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4-10.4 FL Neutrophils (%) (Auto) 68 42-75 % Lymphocytes (%) (Auto) 22 12-44 % Monocytes (%) (Auto) 10 0-12 % Eosinophils (%) (Auto) 0 0-10 % Basophils (%) (Auto) 0 0-10 % Neutrophils # (Auto) 9.3 H 1.8-7.8 X 10^3 Lymphocytes # (Auto) 2.9 1.0-4.0 X 10^3 Monocytes # (Auto) 1.4 H 0.0-1.0 X 10^3 Eosinophils # (Auto) 0.0 0.0-0.3 10^3/uL Basophils # (Auto) 0.0 0.0-0.1 10^3/uL Sodium Level 135 135-145 MMOL/L Potassium Level 3.8 3.6-5.0 MMOL/L Chloride Level 101 98-107 MMOL/L Carbon Dioxide Level 19 L 21-32 MMOL/L Anion Gap 15 H 5-14 MMOL/L Blood Urea Nitrogen 20 H 7-18 MG/DL Creatinine 2.02 H 0.60-1.30 MG/DL Estimat Glomerular Filtration Rate 28 BUN/Creatinine Ratio 10 Glucose Level 82 70-105 MG/DL Calcium Level 9.7 8.5-10.1 MG/DL Magnesium Level 2.4 1.8-2.4 MG/DL Total Bilirubin 0.3 0.1-1.0 MG/DL Aspartate Amino Transf (AST/SGOT) 22 5-34 U/L Alanine Aminotransferase (ALT/SGPT) 26 0-55 U/L Alkaline Phosphatase 129 40-136 U/L Total Protein 8.3 H 6.4-8.2 GM/DL Albumin 4.9 H 3.2-4.5 GM/DL Amylase Level 59 25-125 U/L Lipase 25 8-78 U/L Urine Color YELLOW Urine Clarity SLIGHTLY CLOUDY Urine pH 6 5-9 Urine Specific [place] 1.010 L 1.016-1.022 Urine Protein 2+ H NEGATIVE Urine Glucose (UA) NEGATIVE NEGATIVE Urine Ketones NEGATIVE NEGATIVE Urine Nitrite NEGATIVE NEGATIVE Urine Bilirubin NEGATIVE NEGATIVE Urine Urobilinogen NORMAL NORMAL MG/DL Urine Leukocyte Esterase 2+ H NEGATIVE Urine RBC (Auto) NEGATIVE NEGATIVE Urine RBC none /HPF Urine WBC 5-10 H /HPF Urine Squamous Epithelial Cells >50 H /HPF Urine Crystals NONE /LPF Urine Bacteria MODERATE H /HPF Urine Casts NONE /LPF Urine Mucus MODERATE H /LPF Urine Culture Indicated YES Urine Opiates Screen NEGATIVE NEGATIVE Urine Oxycodone Screen NEGATIVE NEGATIVE Urine Methadone Screen NEGATIVE NEGATIVE Urine Propoxyphene Screen NEGATIVE NEGATIVE Urine Barbiturates Screen NEGATIVE NEGATIVE Ur Tricyclic Antidepressants Screen POSITIVE H NEGATIVE Urine Phencyclidine Screen NEGATIVE NEGATIVE Urine Amphetamines Screen NEGATIVE NEGATIVE Urine Methamphetamines Screen NEGATIVE NEGATIVE Urine Benzodiazepines Screen POSITIVE H NEGATIVE Urine Cocaine Screen NEGATIVE NEGATIVE Urine Cannabinoids Screen NEGATIVE NEGATIVE My Orders Orders - GUY XIAO DO Saline Lock/Iv-Start (12/06/16 20:19) Amylase (12/06/16 20:19) Cbc With Automated Diff (12/06/16 20:19) Comprehensive Metabolic Panel (12/06/16 20:19) Drug Screen Stat (Urine) (12/06/16 20:19) Lipase (12/06/16 20:19) Magnesium (12/06/16 20:19) Ua Culture If Indicated (12/06/16 20:19) Ondansetron Injection (Zofran Injectio (12/06/16 20:30) Hyoscyamine Sl Tablet (Levsin Sl Tablet) (12/06/16 20:30) Saline Lock/Iv-Start (12/06/16 20:19) Lactated Ringers (Lr 1000 Ml Iv Solution (12/06/16 20:19) Ketorolac Injection (Toradol Injection) (12/06/16 20:19) Ct Abd/Pelvis Wo(Kidney Stone) (12/06/16 21:23) Acute Abd Series (12/06/16 21:23) Urine Culture (12/06/16 21:42) Rx-Nitrofurantoin Barron (Rx-Macrobid) (12/06/16 22:07) Acetaminophen Tablet (Tylenol Tablet) (12/06/16 22:15) Rx-Nitrofurantoin Barron (Rx-Macrobid) (12/06/16 22:17) Medications Given in ED Current Medications Medications Dose Ordered Sig/Brandon Route Start Time Stop Time Status Last Admin Dose Admin Acetaminophen 1,000 mg ONCE ONCE PO 12/06/16 22:15 12/06/16 22:16 DC 12/06/16 22:18 1,000 MG Hyoscyamine Sulfate 0.25 mg ONCE ONCE SL 12/06/16 20:30 12/06/16 20:31 DC 12/06/16 20:56 0.25 MG Lactated Ringer's 1,000 ml @ 0 mls/hr Q0M ONCE IV 12/06/16 20:19 12/06/16 20:21 DC 12/06/16 20:56 0 MLS/HR Ondansetron HCl 8 mg ONCE ONCE IVP 12/06/16 20:30 12/06/16 20:31 DC 12/06/16 20:56 8 MG Vital Signs/I&O Vital Sign - Last 12Hours 12/06/16 12/06/16 21:00 22:35 Temp 96.8 Pulse 86 74 Resp 14 14 B/P (MAP) 108/57 Pulse Ox 98 98 O2 Delivery Room Air Room Air Progress Note : Progress Note SYMPTOMS IMPROVED WITH MEDICATIONS NO VOMITING OR DIARRHEA DURING ER STAY AT DISMISSAL, PT STATES SHE HAD BEEN TAKING A FULL HYDROCHLOROTHIAZIDE FOR HTN AND FLUID RETENTION, AND A COUPLE OF MONTHS AGO, IT WAS DECREASED TO 1/2 PILL DAILY, AFTER SHE HAD EPISODE OF ACUTE RENAL FAILURE/INSUFFICIENCY/DEHYDRATION. RENAL FUNCTION HAD BEEN NORMAL AFTER THAT. STILL TAKING 1/2 PILL A DAY. STATES SHE RETAINS FLUID IF SHE TRIES TO GO WITHOUT IT. Diagnostic Imaging Comments CT ABDOMEN/PELVIS--NO ACUTE PROCESS, PER RADIOLOGIST REPORT @ 2150 ACUTE ABDOMEN XRAYS--NON-SPECIFIC BOWEL GAS PATTERN, PER RADIOLOGIST REPORT AT 2215 Reviewed: Reviewed by Me Departure Impression Impression: Primary Impression: Gastroenteritis Additional Impressions: Dehydration Acute renal insufficiency Urinary tract infection Disposition: HOME, SELF-CARE Condition: Improved Departure-Patient Inst. Referrals: WENDI BLACK MD (PCP/Family) Primary Care Physician Patient Instructions: Dehydration, Adult (DC), [id number], Renal Function Panel, Urinary Tract Infection, Adult (DC) Add. Discharge Instructions: INCREASE YOUR DAILY CLEAR LIQUID INTAKE--WATER, GATORADE--DRINK ENOUGH SO YOU ARE URINATING EVERY 2 HOURS WHILE AWAKE YOU MAY TAKE TYLENOL NEEDED FOR PAIN OR FEVER FOLLOW UP WITH YOUR DR IN 2-3 DAYS FOR RECHECK Scripts Nitrofurantoin Monohyd/M-Cryst (Macrobid 100 mg Capsule) 100 Mg Capsule 100 MG PO BID, #20 CAP Prov: GUY XIAO DO 12/06/16 Dicyclomine HCl (Bentyl) 10 Mg Capsule 10 MG PO Q6H Y for ABDOMINAL PAIN, #15 CAP Prov: GUY XIAO DO 12/06/16 Hyoscyamine Sulfate (Levsin-Sl) 0.125 Mg Tab.subl 1-2 TAB SL Q4H for Abdominal Pain, #10 TAB Prov: GUY XIAO DO 12/06/16 Ondansetron (Zofran Odt) 4 Mg Tab.rapdis 4 MG PO Q4H for Nausea/Vomiting, #10 TAB Prov: GUY XIAO DO 12/06/16 GUY XIAO DO Dec 06, 2016 20:28
[2016-12-06] MEDS ORDERED: ONDANSETRON 4 MG/2 ML (SDV) Z0FRAN IVP ONE (20:30)
[2016-12-06] MEDS ORDERED: HYOSCYAMINE 0.125 MG (LEVSIN) TAB SL ONE (20:30)
[2016-12-06 20:59] LABS: BASOPHILS % (AUTO) 0 % (0-10); EOSINOPHILS % (AUTO) 0 % (0-10); LYMPHOCYTES # (AUTO) 2.9 X 10^3 (1.0-4.0); LYMPHOCYTES % (AUTO) 22 % (12-44); MEAN CORPUSCULAR HEMOGLOBIN 31 PG (25-34); MEAN CORPUSCULAR HGB CONC 35 G/DL (32-36); MEAN CORPUSCULAR VOLUME 90 FL (80-99); MEAN PLATELET VOLUME 9.3 FL (7.4-10.4); MONOCYTES # (AUTO) 1.4 X 10^3 (0.0-1.0); MONOCYTES % (AUTO) 10 % (0-12); NEUTROPHILS # (AUTO) 9.3 X 10^3 (1.8-7.8); NEUTROPHILS % (AUTO) 68 % (42-75); PLATELET COUNT 377 10^3/uL (130-400); RED BLOOD COUNT 4.43 10^6/uL (4.35-5.85); RED CELL DISTRIBUTION WIDTH 12.9 % (10.0-14.5); WHITE BLOOD COUNT 13.6 10^3/uL (4.3-11.0)
[2016-12-06 21:17] LABS: ALBUMIN 4.9 GM/DL (3.2-4.5); BILIRUBIN,TOTAL 0.3 MG/DL (0.1-1.0); CALCIUM 9.7 MG/DL (8.5-10.1); CREATININE SERUM 2.02 MG/DL (0.60-1.30); MAGNESIUM 2.4 MG/DL (1.8-2.4); POTASSIUM 3.8 MMOL/L (3.6-5.0); TOTAL PROTEIN 8.3 GM/DL (6.4-8.2)
--- NOTE | 2016-12-06 21:44 | Diagnostic Imaging Report ---
PROCEDURE: CT urinary tract, rule out kidney stone. TECHNIQUE: Multiple contiguous axial images were obtained through the abdomen and pelvis without the use of intravenous contrast. INDICATION: Nausea, vomiting and diarrhea. Right-sided abdominal pain. COMPARISON: 06/02/15. FINDINGS: Evaluation of the abdominal viscera is mildly limited without contrast. Lower chest: The lung bases are clear. No pericardial or pleural effusion. Peritoneum: No free intraperitoneal air or fluid. Liver and biliary system: Unenhanced liver is normal. Status post cholecystectomy. No biliary duct dilatation. Spleen and Pancreas: Spleen is normal. Unenhanced pancreas is grossly normal. Adrenals: Normal. tract: No renal or ureteral calculi. No obstructive uropathy. Urinary bladder is decompressed, limiting evaluation. Status post hysterectomy. Normal ovaries. GI tract: Stomach is partially distended with fluid and food debris. No bowel obstruction. No pericolonic inflammatory changes. Normal appendix. Vasculature and Lymph nodes: Normal caliber aorta. No abdominal or pelvic lymphadenopathy. Musculoskeletal: No concerning osseous lesion. IMPRESSION: 1. No urinary tract calculi or obstructive uropathy. 2. No acute inflammatory process within the abdomen or pelvis. Fluid-filled small bowel loops in proximal colon can be seen with enteritis, in the appropriate clinical setting. 3. Cholecystectomy. 4. Hysterectomy. Dictated by: Dictated on workstation # [id number]
--- NOTE | 2016-12-06 21:51 | Diagnostic Imaging Report ---
ACUTE ABD SERIES Indication: Dehydration, nausea and vomiting. Comparison: CT abdomen and pelvis performed concurrently Findings: No focal pneumonic consolidation, pleural effusion or pneumothorax. Normal heart size and pulmonary vasculature. There are a few scattered air-fluid levels in the small bowel and colon on upright imaging, which can be seen with enteritis. Nonobstructive bowel gas pattern. No free intraperitoneal air. Impression: 1. No acute cardiopulmonary process. 2. Nonobstructive bowel gas pattern. Scattered air-fluid levels in the small bowel and colon can be seen with enteritis in the appropriate clinical setting. Dictated by: Dictated on workstation # [id number]
[2016-12-06 21:52] LABS: BILIRUBIN,URINE NEGATIVE (NEGATIVE); KETONES,URINE NEGATIVE (NEGATIVE); LEUKOCYTE ESTERASE ,URINE 2+ (NEGATIVE); NITRITE,URINE NEGATIVE (NEGATIVE); PH,URINE 6 (5-9); PROTEIN,URINE 2+ (NEGATIVE); UROBILINOGEN,URINE NORMAL (NORMAL)
[2016-12-06] MEDS ORDERED: DICY10CA59 PO (21:55)
[2016-12-06] MEDS ORDERED: ONDA4TAB8 PO (21:55)
[2016-12-06] MEDS ORDERED: HYOS0.1283 SL (21:55)
[2016-12-06 21:59] LABS: SQUAMOUS EPITHELIAL CELL,UR >50 /HPF
[2016-12-06] MEDS ORDERED: RX-NITROFURANTOIN 100 MG (MACROBID) CAP PPK#2 PO STA (22:07)
[2016-12-06] MEDS ORDERED: NITR-65 PO (22:07)
[2016-12-06] MEDS ORDERED: ACETAMINOPHEN 500 MG TAB (TYLENOL) PO ONE (22:15)
[2016-12-06] MEDS ORDERED: RX-NITROFURANTOIN 100 MG (MACROBID) CAP PPK#2 PO ONE (22:17)
[2016-12-06 22:35] VITALS: BP 106/62
== END 2016-12-06 22:37 | disposition home or self-care (01) ==
LOC: EDUNIT# 19:51 → ER 19:53
DX: K52.9 Noninfective gastroenteritis and colitis, unspecified (principal); N39.0 Urinary tract infection, site not specified; N28.9 Disorder of kidney and ureter, unspecified; E86.0 Dehydration; J45.909 Unspecified asthma, uncomplicated; E78.00 Pure hypercholesterolemia, unspecified; I10 Essential (primary) hypertension; F41.9 Anxiety disorder, unspecified; F32.9 Major depressive disorder, single episode, unspecified; F17.210 Nicotine dependence, cigarettes, uncomplicated; Z90.49 Acquired absence of other specified parts of digestive tract; Z90.710 Acquired absence of both cervix and uterus
CPT/HCPCS: 36415; 74022; 74176; 80053; 80306; 81000; 82150; 83690; 83735; 85025; 87088; 87186; 96361; 96374; 96375

== ENCOUNTER 2016-12-21 12:27 | Emergency (ER) | payer SELFPAY ==
[~2016-12-21] VITALS: Ht 172.7 cm; Wt 117.0 kg
[~2016-12-21 12:27] MED LIST changes: +DICY10CA59 PO; +HYOS0.1283 SL; +NITR-65 PO; +ONDA4TAB8 PO
--- OUTSIDE RECORDS SUMMARY | 2016-12-21 12:42 | XMS REPORT | Continuity of Care Document ---
Author Author [facility] Address Unknown Phone Unavailable Allergies Active Description [...] Latex OA N/A N/A 04/26/2013 Yes amoxicillin [id number] Drug Allergy Unknown N/A 07/31/2014 Yes hydrocodone [id number] Drug Allergy Unknown N/A 07/31/2014 Yes morphine [id number] Drug Allergy Unknown N/A 07/31/2014 Yes paroxetine [id number] Drug Allergy Unknown N/A 07/31/2014 Yes Sulfa (Sulfonamide Antibiotics) [id number] Drug Allergy Unknown N/A 07/31/2014 Yes sulfamethoxazole [id number] Drug Allergy Unknown N/A 07/31/2014 Yes trimethoprim [id number] Drug Allergy Unknown N/A 07/31/2014 Yes Abilify [...] 884.0 WOUND OPEN UPPER LIMB 12/25/2007 GIBSON SURVEY RESEARCHER, MANAV ALVES 682.9 CELLULITIS AND ABSCESS OF [...] 884.0 Wound Open Upper Limb 12/25/2007 CHRISTEL QUALITY IMPROVEMENT MANAGER, CARLOS M 682.9 CELLULITIS AND ABSCESS OF [...] 296.90 MO MOOD DIS NOS 05/27/2010 GIBSON SURVEY RESEARCHER, MANAV ALVES 301.83 PD BORDERLINE 05/27/2010 RAMON SURVEY RESEARCHER, MAU A 296.90 MO MOOD DIS NOS 05/27/2010 RAMON SURVEY RESEARCHER, MAU A 301.83 PD BORDERLINE 05/27/2010 GIBSON SURVEY RESEARCHER, MANAV ALVES 296.90 MO MOOD DIS NOS [...] MD N 301.83 PD BORDERLINE 05/27/2010 CHRISTEL QUALITY IMPROVEMENT MANAGER, CARLOS M 296.90 MO MOOD DIS NOS 05/27/2010 CHRISTEL QUALITY IMPROVEMENT MANAGER, CARLOS M 301.83 PD BORDERLINE 05/27/2010 CHRISTEL QUALITY IMPROVEMENT MANAGER, CARLOS M 296.90 MO MOOD DIS NOS 05/27/2010 CHRISTEL QUALITY IMPROVEMENT MANAGER, CARLOS M 301.83 PD BORDERLINE 05/27/2010 CHRISTEL QUALITY IMPROVEMENT MANAGER, CARLOS M 296.90 MO MOOD DIS NOS 05/27/2010 CHRISTEL QUALITY IMPROVEMENT MANAGER, CARLOS M 301.83 PD BORDERLINE 05/27/2010 CHRISTEL QUALITY IMPROVEMENT MANAGER, CARLOS M 296.90 MO MOOD DIS NOS 05/27/2010 CHRISTEL QUALITY IMPROVEMENT MANAGER, CARLOS M 301.83 PD BORDERLINE 06/17/2010 296.80 [...] K 300.02 AN GEN ANXIETY 06/17/2010 GIBSON SURVEY RESEARCHER, MANAV ALVES 296.80 MO BIPOLAR NOS 06/17/2010 GIBSON SURVEY RESEARCHER, MANAV ALVES 300.02 AN GEN ANXIETY 06/17/2010 RAMON SURVEY RESEARCHER, MAU A 296.80 MO BIPOLAR NOS 06/17/2010 RAMON SURVEY RESEARCHER, MAU A 300.02 AN GEN ANXIETY 06/17/2010 GIBSON SURVEY RESEARCHER, MANAV ALVES 296.80 MO BIPOLAR NOS 06/17/2010 GIBSON SURVEY RESEARCHER, MANAV ALVES 300.02 AN GEN ANXIETY 06/17/2010 [...] BLACK MD 300.02 AN GEN ANXIETY 06/17/2010 WENID BLACK MD 296.80 MO BIPOLAR NOS 06/17/2010 WENDI BLACK MD 300.02 AN GEN ANXIETY 06/17/2010 CHRISTEL QUALITY IMPROVEMENT MANAGER, CARLOS M 296.80 MO BIPOLAR NOS 06/17/2010 CHRISTEL QUALITY IMPROVEMENT MANAGER, CARLOS M 300.02 AN GEN ANXIETY 06/17/2010 CHRISTEL QUALITY IMPROVEMENT MANAGER, CARLOS M 296.80 MO BIPOLAR NOS 06/17/2010 CHRISTEL QUALITY IMPROVEMENT MANAGER, CARLOS M 300.02 AN GEN ANXIETY 06/17/2010 CHRISTEL QUALITY IMPROVEMENT MANAGER, CARLOS M 296.80 MO BIPOLAR NOS 06/17/2010 CHRISTEL QUALITY IMPROVEMENT MANAGER, CARLOS M 300.02 AN GEN ANXIETY 06/17/2010 CHRISTEL QUALITY IMPROVEMENT MANAGER, CARLOS M 296.80 MO BIPOLAR NOS 06/17/2010 CHRISTEL QUALITY IMPROVEMENT MANAGER, CARLOS M 300.02 AN GEN ANXIETY 10/14/2010 [...] N 296.89 MO BIPOLAR II 10/14/2010 CHRISTEL QUALITY IMPROVEMENT MANAGER, CARLOS M 296.89 MO BIPOLAR II 10/14/2010 CHRISTEL QUALITY IMPROVEMENT MANAGER, CARLOS M 296.89 MO BIPOLAR II 10/14/2010 CHRISTEL QUALITY IMPROVEMENT MANAGER, CARLOS M 296.89 MO BIPOLAR II 10/14/2010 CHRISTEL QUALITY IMPROVEMENT MANAGER, CARLOS M 296.89 MO BIPOLAR II 03/22/2011 V72.31 INGOT STRIPPER EXAM, ROUTINE 03/22/2011 V72.31 INGOT STRIPPER EXAM, ROUTINE 03/22/2011 V72.31 INGOT STRIPPER EXAM, ROUTINE 03/22/2011 MANAV GIBSON APRN V72.31 INGOT STRIPPER EXAM, ROUTINE 03/22/2011 MANAV GIBSNO APRN V72.31 INGOT STRIPPER EXAM, ROUTINE 03/22/2011 V72.31 INGOT STRIPPER EXAM, ROUTINE 03/22/2011 DIMPLE PEÑALOZA DO V72.31 INGOT STRIPPER EXAM, ROUTINE 03/22/2011 V72.31 INGOT STRIPPER EXAM, ROUTINE 03/22/2011 V72.31 INGOT STRIPPER EXAM, ROUTINE 03/22/2011 V72.31 INGOT STRIPPER EXAM, ROUTINE 03/22/2011 DIMPLE PEÑALOZA DO V72.31 INGOT STRIPPER EXAM, ROUTINE 03/22/2011 TEOFILO FELICIANO MD V72.31 INGOT STRIPPER EXAM, ROUTINE 03/22/2011 DIMPLE PEÑALOZA DO V72.31 INGOT STRIPPER EXAM, ROUTINE 03/22/2011 MANAV GIBSON APRN V72.31 INGOT STRIPPER EXAM, ROUTINE 03/22/2011 MAU NAVARRO APRN V72.31 INGOT STRIPPER EXAM, ROUTINE 03/22/2011 MANAV GIBSON APRN V72.31 INGOT STRIPPER EXAM, ROUTINE 03/22/2011 WENDI BLACK MD V72.31 INGOT STRIPPER EXAM, ROUTINE 03/22/2011 WENDI BLACK MD V72.31 INGOT STRIPPER EXAM, ROUTINE 03/22/2011 PEÑALOZA DIMPLE YEPEZ V72.31 INGOT STRIPPER EXAM, ROUTINE 03/22/2011 MANAV GIBSON APRN V72.31 INGOT STRIPPER EXAM, ROUTINE 03/22/2011 PEÑALOZA DIMPLE YEPEZ V72.31 INGOT STRIPPER EXAM, ROUTINE 03/22/2011 WENDI BLACK MD V72.31 INGOT STRIPPER EXAM, ROUTINE 03/22/2011 WENDI BLACK MD V72.31 INGOT STRIPPER EXAM, ROUTINE 03/22/2011 TIN HEREDIA PSYD V72.31 INGOT STRIPPER EXAM, ROUTINE 03/22/2011 WENDI BLACK MD V72.31 INGOT STRIPPER EXAM, ROUTINE 03/22/2011 SOFIA RICE, WENDI Dupont V72.31 INGOT STRIPPER EXAM, ROUTINE 03/22/2011 CARLOS AHUJA M V72.31 INGOT STRIPPER EXAM, ROUTINE 03/22/2011 CARLOS AHUJA M V72.31 INGOT STRIPPER EXAM, ROUTINE 03/22/2011 CHRISTEL QUALITY IMPROVEMENT MANAGERCARLOS M V72.31 INGOT STRIPPER EXAM, ROUTINE 03/22/2011 CHRISTEL QUALITY IMPROVEMENT MANAGER, CARLOS M V72.31 INGOT STRIPPER EXAM, ROUTINE 05/26/2011 465.9 UPPER RESPIRATORY INFECTION [...] N 465.9 UPPER RESPIRATORY INFECTION 05/26/2011 CHRISTEL QUALITY IMPROVEMENT MANAGER, CARLOS M 465.9 UPPER RESPIRATORY INFECTION 05/26/2011 CHRISTEL QUALITY IMPROVEMENT MANAGER, CARLOS M 465.9 UPPER RESPIRATORY INFECTION 05/26/2011 CHRISTEL QUALITY IMPROVEMENT MANAGER, CARLOS M 465.9 UPPER RESPIRATORY INFECTION 05/26/2011 CHRISTEL QUALITY IMPROVEMENT MANAGER, CARLOS M 465.9 UPPER RESPIRATORY INFECTION 07/14/2011 [...] A 401.1 HYPERTENSION, BENIGN ESSENTIAL 07/14/2011 RAMON SURVEY RESEARCHER, MAU A 783.5 Polydipsia 07/14/2011 RAMON HECK, MAU A V18.0 FAMILY HISTORY OF DIABETES MELLITUS 07/14/2011 GIBSON SURVEY RESEARCHER, MANAV ALVES 401.1 HYPERTENSION, BENIGN ESSENTIAL 07/14/2011 [...] FAMILY HISTORY OF DIABETES MELLITUS 07/14/2011 GIBSON SURVEY RESEARCHER, MANAV ALVES 401.1 HYPERTENSION, BENIGN ESSENTIAL 07/14/2011 [...] FAMILY HISTORY OF DIABETES MELLITUS 07/14/2011 CHRISTEL QUALITY IMPROVEMENT MANAGER, CARLOS M 401.1 HYPERTENSION, BENIGN ESSENTIAL 07/14/2011 CHRISTEL QUALITY IMPROVEMENT MANAGER, CARLOS M 783.5 Polydipsia 07/14/2011 CHRISTEL QUALITY IMPROVEMENT MANAGER, CARLOS M V18.0 FAMILY HISTORY OF DIABETES MELLITUS 07/14/2011 CHRISTEL QUALITY IMPROVEMENT MANAGER, CARLOS M 401.1 HYPERTENSION, BENIGN ESSENTIAL 07/14/2011 CHRISTEL QUALITY IMPROVEMENT MANAGER, CARLOS M 783.5 Polydipsia 07/14/2011 CHRISTEL QUALITY IMPROVEMENT MANAGER, CARLOS M V18.0 FAMILY HISTORY OF DIABETES MELLITUS 07/14/2011 CHRISTEL QUALITY IMPROVEMENT MANAGER, CARLOS M 401.1 HYPERTENSION, BENIGN ESSENTIAL 07/14/2011 CHRISTEL QUALITY IMPROVEMENT MANAGER, CARLOS M 783.5 Polydipsia 07/14/2011 CHRISTEL QUALITY IMPROVEMENT MANAGER, CARLOS M V18.0 FAMILY HISTORY OF DIABETES MELLITUS 07/14/2011 CHRISTEL QUALITY IMPROVEMENT MANAGER, CARLOS M 401.1 HYPERTENSION, BENIGN ESSENTIAL 07/14/2011 CHRISTEL QUALITY IMPROVEMENT MANAGER, CARLOS M 783.5 Polydipsia 07/14/2011 CHRISTEL QUALITY IMPROVEMENT MANAGER, CARLOS M V18.0 FAMILY HISTORY OF DIABETES [...] SALAZAR, CARLOS M 272.4 HYPERLIPIDEMIA 07/16/2011 CHRISTEL QUALITY IMPROVEMENT MANAGER, CARLOS M 272.4 HYPERLIPIDEMIA 07/16/2011 CHRISTEL QUALITY IMPROVEMENT MANAGER, CARLOS M 272.4 HYPERLIPIDEMIA 07/16/2011 CHRISTEL QUALITY IMPROVEMENT MANAGER, CARLOS M 272.4 HYPERLIPIDEMIA 11/15/2011 054.10 GENITAL [...] GIBSON APRN 786.50 CHEST PAIN 03/27/2012 GIBSON SURVEY RESEARCHER, MANAV ALVES 787.02 NAUSEA ALONE 03/27/2012 PAIGE [...] DIMPLE K 787.02 Nausea Alone 03/27/2012 GIBSON SURVEY RESEARCHER, MANAV ALVES 786.05 Shortness Of Breath 03/27/2012 GIBSON SURVEY RESEARCHER, MANAV ALVES 786.50 Chest Pain 03/27/2012 GIBSON SURVEY RESEARCHER, MANAV ALVES 787.02 Nausea Alone 03/27/2012 RAMON SURVEY RESEARCHER, MAU A 786.05 Shortness Of Breath 03/27/2012 RAMON SURVEY RESEARCHER, MAU A 786.50 Chest Pain 03/27/2012 RAMON SURVEY RESEARCHER, MAU A 787.02 Nausea Alone 03/27/2012 GIBSON SURVEY RESEARCHERMANAV 786.05 Shortness Of Breath 03/27/2012 GIBSON SURVEY RESEARCHER, MANAV ALVES 786.50 Chest Pain 03/27/2012 GIBSON SURVEY RESEARCHERMANAV 787.02 Nausea Alone 03/27/2012 WENDI BLACK MD [...] DIMPLE K 787.02 Nausea Alone 03/27/2012 GIBSON SURVEY RESEARCHERMANAV 786.05 Shortness Of Breath 03/27/2012 GIBSON SURVEY RESEARCHER, MANAV ALVES 786.50 Chest Pain 03/27/2012 GIBSON SURVEY RESEARCHER, MANAV WHITEH 787.02 Nausea Alone 03/27/2012 PEÑALOZA [...] MD N 787.02 Nausea Alone 03/27/2012 CHRISTEL QUALITY IMPROVEMENT MANAGER, CARLOS M 786.05 Shortness Of Breath 03/27/2012 CHRISTEL QUALITY IMPROVEMENT MANAGER, CARLOS M 786.50 Chest Pain 03/27/2012 CHRISTEL QUALITY IMPROVEMENT MANAGER, CARLOS M 787.02 Nausea Alone 03/27/2012 CHRISTEL QUALITY IMPROVEMENT MANAGER, CARLOS M 786.05 Shortness Of Breath 03/27/2012 CHRISTEL QUALITY IMPROVEMENT MANAGER, CARLOS M 786.50 Chest Pain 03/27/2012 CHRISTEL QUALITY IMPROVEMENT MANAGER, CARLOS M 787.02 Nausea Alone 03/27/2012 CHRISTEL QUALITY IMPROVEMENT MANAGER, CARLOS M 786.05 Shortness Of Breath 03/27/2012 CHRISTEL QUALITY IMPROVEMENT MANAGER, CARLOS M 786.50 Chest Pain 03/27/2012 CHRISTEL QUALITY IMPROVEMENT MANAGER, CALROS M 787.02 Nausea Alone 03/27/2012 CHRISTEL QUALITY IMPROVEMENT MANAGER, CARLOS M 786.05 Shortness Of Breath 03/27/2012 CHRISTEL QUALITY IMPROVEMENT MANAGER, CARLOS M 786.50 Chest Pain 03/27/2012 CHRISTEL QUALITY IMPROVEMENT MANAGER, CARLOS M 787.02 Nausea Alone 06/21/2012 MANAV [...] RICE, WENDI N 782.3 EDEMA 10/30/2012 CHRISTEL QUALITY IMPROVEMENT MANAGER, CARLOS M 782.3 EDEMA 10/30/2012 CHRISTEL QUALITY IMPROVEMENT MANAGER, CARLOS M 782.3 EDEMA 10/30/2012 CHRISTEL QUALITY IMPROVEMENT MANAGER, CARLOS M 782.3 EDEMA 10/30/2012 CHRISTEL QUALITY IMPROVEMENT MANAGER, CARLOS M 782.3 EDEMA 11/07/2012 008.8 GASTROENTERITIS, [...] CARLOS M 008.8 GASTROENTERITIS, VIRAL 11/07/2012 CHRISTEL QUALITY IMPROVEMENT MANAGER, CARLOS M 008.8 GASTROENTERITIS, VIRAL 11/07/2012 CHRISTEL [...] CARLOS M 728.87 MUSCLE WEAKNESS (GENERALIZED) 04/26/2013 AQUILSE PEÑALOZA DOA K 599.0 URINARY TRACT INFECTION 04/26/2013 PAIGE HECK MANAV ALVES 599.0 URINARY TRACT INFECTION 04/26/2013 MILADY NAVARRO APRNIDI A 599.0 URINARY TRACT INFECTION 04/26/2013 PAIGE HECK MANAV ALVES 599.0 URINARY TRACT INFECTION 04/26/2013 WEDNI BLACK MD N 599.0 URINARY TRACT INFECTION [...] MD V76.10 BREAST CANCER SCREENING 10/02/2013 CHRISTEL QUALITY IMPROVEMENT MANAGER, CARLOS M V65.42 COUNSELING - SMOKING CESSATION 10/02/2013 CHRISTEL QUALITY IMPROVEMENT MANAGER, CARLOS M V74.5 STD SCREEN 10/02/2013 CHRISTEL QUALITY IMPROVEMENT MANAGER, CARLOS M V76.10 BREAST CANCER SCREENING 10/02/2013 CHRISTEL QUALITY IMPROVEMENT MANAGER, CARLOS M V65.42 COUNSELING - SMOKING CESSATION 10/02/2013 CHRISTEL QUALITY IMPROVEMENT MANAGER, CARLOS M V74.5 STD SCREEN 10/02/2013 CHRISTEL QUALITY IMPROVEMENT MANAGER, CARLOS M V76.10 BREAST CANCER SCREENING 10/02/2013 CHRISTEL QUALITY IMPROVEMENT MANAGER, CARLOS M V65.42 COUNSELING - SMOKING CESSATION 10/02/2013 CHRISTEL QUALITY IMPROVEMENT MANAGER, CARLOS M V74.5 STD SCREEN 10/02/2013 CHRISTEL QUALITY IMPROVEMENT MANAGER, CARLOS M V76.10 BREAST CANCER SCREENING 10/02/2013 CHRISTEL QUALITY IMPROVEMENT MANAGER, CARLOS M V65.42 COUNSELING - SMOKING CESSATION 10/02/2013 CHRISTEL QUALITY IMPROVEMENT MANAGER, CARLOS M V74.5 STD SCREEN 10/02/2013 CHRISTEL QUALITY IMPROVEMENT MANAGER, CARLOS M V76.10 BREAST CANCER SCREENING 01/01/2014 [...] HEREDIA PSYD L 724.2 LUMBAGO 01/01/2014 WENDI BLAKC MD N 307.42 PERSISTENT DISORDER OF INITIATING [...] AHUJA M 599.70 HEMATURIA UNSPECIFIED 01/01/2014 CHRISTEL QUALITY IMPROVEMENT MANAGERCARLOS M 724.2 LUMBAGO 01/01/2014 CARLOS AHUJA M 307.42 PERSISTENT DISORDER OF INITIATING OR MAINTAINING SLEEP 01/01/2014 CARLOS AHUJA M 599.70 HEMATURIA UNSPECIFIED 01/01/2014 CHRISTEL QUALITY IMPROVEMENT MANAGERCARLOS M 724.2 LUMBAGO 01/01/2014 CARLOS AHUJA M 307.42 PERSISTENT DISORDER OF INITIATING OR MAINTAINING SLEEP 01/01/2014 CARLOS AHUJA M 599.70 HEMATURIA UNSPECIFIED 01/01/2014 CHRISTEL QUALITY IMPROVEMENT MANAGERCARLOS M 724.2 LUMBAGO 01/01/2014 CHRISTEL QUALITY IMPROVEMENT MANAGERCARLOS M 307.42 PERSISTENT DISORDER OF INITIATING OR [...] AHUJA M 466.0 BRONCHITIS, ACUTE 02/17/2014 CHRISTEL QUALITY IMPROVEMENT MANAGERCARLOS M 466.0 BRONCHITIS, ACUTE 02/17/2014 CHRISTEL QUALITY IMPROVEMENT MANAGER, CARLOS M 466.0 BRONCHITIS, ACUTE 02/17/2014 CHRISTEL QUALITY IMPROVEMENT MANAGER, CARLOS M 466.0 BRONCHITIS, ACUTE 05/21/2014 WENDI BLACK MD N 388.70 OTALGIA UNSPECIFIED 05/21/2014 WENDI BLACK MD N 388.70 OTALGIA UNSPECIFIED 05/21/2014 TIN HEREDIA PSYD 388.70 OTALGIA UNSPECIFIED 05/21/2014 EWNDI BLACK MD N 388.70 OTALGIA UNSPECIFIED 05/21/2014 [...] WITHOUT MENTION OF STATUS MIGRAINOSUS 06/26/2014 CHRISTEL QUALITY IMPROVEMENT MANAGERCARLOS M 786.50 CHEST PAIN 06/26/2014 CHRISTEL QUALITY IMPROVEMENT MANAGERCARLOS M 346.80 OTHER FORMS OF MIGRAINE WITHOUT INTRACTABLE MIGRAINE WITHOUT MENTION OF STATUS MIGRAINOSUS 06/26/2014 CHRISTEL QUALITY IMPROVEMENT MANAGERCARLOS M 786.50 CHEST PAIN 06/26/2014 CHRISTEL QUALITY IMPROVEMENT MANAGERCARLOS M 346.80 OTHER FORMS OF MIGRAINE WITHOUT INTRACTABLE MIGRAINE WITHOUT MENTION OF STATUS MIGRAINOSUS 06/26/2014 CHRISTEL QUALITY IMPROVEMENT MANAGERCARLOS M 786.50 CHEST PAIN 06/26/2014 CHRISTEL QUALITY IMPROVEMENT MANAGERCARLOS M 346.80 OTHER FORMS OF MIGRAINE WITHOUT [...] 786.50 12/02/2014 Ot V88.01 12/02/2014 SOCORRO KEATING SURVEY RESEARCHER Ot 305.1 12/02/2014 SOCORRO KEATING SURVEY RESEARCHER Ot 525.9 12/02/2014 SOCORRO KEATING SURVEY RESEARCHER Ot 526.5 12/02/2014 BRAYDEN DILLONC, DIANE FACP [...] FACP CCDS Ot 401.9 06/02/2015 BRAYDEN DILLONC, [facility] CCDS Ot 786.50 06/02/2015 BRAYDEN RICE [facility], [facility] CCDS Ot V88.01 06/02/2015 Ot 272.4 06/02/2015 [...] OTHER EXTERNAL CAUSE STATUS 03/01/2016 SOCORRO KEATING SURVEY RESEARCHER Ot I10 ESSENTIAL (PRIMARY) HYPERTENSION 03/01/2016 SOCORRO KEATING SURVEY RESEARCHER Ot K52.9 NONINFECTIVE GASTROENTERITIS AND COLITIS 03/01/2016 SOCORRO KEATING SURVEY RESEARCHER Ot R11.2 NAUSEA WITH VOMITING, UNSPECIFIED 03/01/2016 SOCORRO KEATING SURVEY RESEARCHER Ot Z79.899 OTHER HOSE TURNER (CURRENT) DRUG THERAPY 03/02/2016 SOCORRO KEATING SURVEY RESEARCHER Ot I10 ESSENTIAL (PRIMARY) HYPERTENSION 03/02/2016 SOCORRO KEATING SURVEY RESEARCHER Ot K52.9 NONINFECTIVE GASTROENTERITIS AND COLITIS 03/02/2016 SOCORRO KEATING SURVEY RESEARCHER Ot R11.2 NAUSEA WITH VOMITING, UNSPECIFIED 03/02/2016 SOCORRO KEATING SURVEY RESEARCHER Ot Z79.899 OTHER PENITENTIARY (CURRENT) DRUG THERAPY 03/02/2016 SOCORRO KEATING SURVEY RESEARCHER Ot I10 ESSENTIAL (PRIMARY) HYPERTENSION 03/02/2016 SOCORRO KEATING SURVEY RESEARCHER Ot K52.9 NONINFECTIVE GASTROENTERITIS AND COLITIS 03/02/2016 SOCORRO KEATING SURVEY RESEARCHER Ot R11.2 NAUSEA WITH VOMITING, UNSPECIFIED 03/02/2016 SOCORRO KEATING APRN Ot Z79.899 OTHER HOSE TURNER (CURRENT) DRUG THERAPY 03/05/2016 SOCORRO KEATING SURVEY RESEARCHER Ot I10 ESSENTIAL (PRIMARY) HYPERTENSION 03/05/2016 SOCORRO KEATING APRN Ot K52.9 NONINFECTIVE GASTROENTERITIS AND COLITIS 03/05/2016 SOCORRO KEATING SURVEY RESEARCHER Ot R11.2 NAUSEA WITH VOMITING, UNSPECIFIED 03/05/2016 SOCORRO KEATING SURVEY RESEARCHER Ot Z79.899 OTHER PENITENTIARY (CURRENT) DRUG THERAPY 03/08/2016 SOCORRO KEATING SURVEY RESEARCHER Ot I10 ESSENTIAL (PRIMARY) HYPERTENSION 03/08/2016 SOCORRO KEATING SURVEY RESEARCHER Ot K52.9 NONINFECTIVE GASTROENTERITIS AND COLITIS 03/08/2016 SOCORRO KEATING SURVEY RESEARCHER Ot R11.2 NAUSEA WITH VOMITING, UNSPECIFIED 03/08/2016 SOCORRO KEATING SURVEY RESEARCHER Ot Z79.899 OTHER PENITENTIARY (CURRENT) DRUG THERAPY 03/14/2016 SOCORRO KEATING SURVEY RESEARCHER Ot I10 ESSENTIAL (PRIMARY) HYPERTENSION 03/14/2016 SOCORRO KEATING SURVEY RESEARCHER Ot K52.9 NONINFECTIVE GASTROENTERITIS AND COLITIS 03/14/2016 SOCORRO KEATING SURVEY RESEARCHER Ot R11.2 NAUSEA WITH VOMITING, UNSPECIFIED 03/14/2016 SOCORRO KEATING APRN Ot Z79.899 OTHER HOSE TURNER (CURRENT) DRUG THERAPY 06/30/2016 ALVARO CABRERA MD [...] 08/17/2016 GUY XIAO DO Ot Z79.899 OTHER HOSE TURNER (CURRENT) DRUG THERAPY 09/11/2016 ANKIT BE MD Ot F17.210 NICOTINE DEPENDENCE, CIGARETTES, UNCOMPL 09/11/2016 ANKIT EB MD Ot I10 ESSENTIAL (PRIMARY) HYPERTENSION 09/11/2016 ANKIT BE MD Ot N17.9 ACUTE KIDNEY FAILURE, UNSPECIFIED 09/11/2016 ANKIT BE MD Ot R39.15 URGENCY OF URINATION 09/17/2016 ANKIT BE MD Ot F17.210 NICOTINE DEPENDENCE, CIGARETTES, UNCOMPL 09/17/2016 ANKIT BE MD Ot I10 ESSENTIAL (PRIMARY) HYPERTENSION 09/17/2016 [place] RICE, ANKIT Tristan Ot N17.9 ACUTE KIDNEY FAILURE, UNSPECIFIED 09/17/2016 ANKIT BE MD Ot R39.15 URGENCY OF URINATION 09/25/2016 CRYSTAL SINGLETON MD Ot F17.210 NICOTINE DEPENDENCE, CIGARETTES, UNCOMPL 09/25/2016 CRYSTAL SINGLETON MD Ot I10 ESSENTIAL (PRIMARY) HYPERTENSION 09/25/2016 CRYSTAL SINGLETON MD Ot M54.5 LOW BACK PAIN 09/25/2016 CRYSTAL SINGLETON MD Ot R11.0 NAUSEA 09/25/2016 CRYSTAL SINGLETON MD Ot R53.83 OTHER FATIGUE 09/25/2016 CRYSTAL SINGLETON MD Ot Z79.899 OTHER HOSE TURNER (CURRENT) DRUG THERAPY 09/27/2016 CRYSTAL SINGLETON MD Ot F17.210 NICOTINE DEPENDENCE, CIGARETTES, UNCOMPL 09/27/2016 CRYSTAL SINGLETON MD Ot I10 ESSENTIAL (PRIMARY) HYPERTENSION 09/27/2016 CRYSTAL SINGLETON MD Ot M54.5 LOW BACK PAIN 09/27/2016 CRYSTAL SINGLETON MD Ot R11.0 NAUSEA 09/27/2016 CRYSTAL SINGLETON MD Ot R53.83 OTHER FATIGUE 09/27/2016 CRYSTAL SINGLETON MD Ot Z79.899 OTHER PENITENTIARY (CURRENT) DRUG THERAPY 10/01/2016 CRYSTAL SINGLETON MD Ot F17.210 NICOTINE DEPENDENCE, CIGARETTES, UNCOMPL 10/01/2016 CRYSTAL SINGLETON MD Ot I10 ESSENTIAL (PRIMARY) HYPERTENSION 10/01/2016 CRYSTAL SINGLETON MD Ot M54.5 LOW BACK PAIN 10/01/2016 CRYSTAL SINGLETON MD Ot R11.0 NAUSEA 10/01/2016 CRYSTAL SINGLETON MD Ot R53.83 OTHER FATIGUE 10/01/2016 CRYSTAL SINGLETON MD Ot Z79.899 OTHER PENITENTIARY (CURRENT) DRUG THERAPY 12/09/2016 DAMEON DO, GUY K Ot E78.00 PURE HYPERCHOLESTEROLEMIA, UNSPECIFIED 12/09/2016 DAMEON DO, GUY K Ot E86.0 DEHYDRATION 12/09/2016 DAMEON DO GUY K Ot F17.210 NICOTINE DEPENDENCE, CIGARETTES, UNCOMPL 12/09/2016 DAMEON DO, GUY K Ot F32.9 MAJOR DEPRESSIVE DISORDER, SINGLE EPISOD 12/09/2016 GUY XIAO DO Ot F41.9 ANXIETY DISORDER, UNSPECIFIED 12/09/2016 GUY XIAO DO Ot I10 ESSENTIAL (PRIMARY) HYPERTENSION 12/09/2016 GUY XIAO DO Ot J45.909 UNSPECIFIED ASTHMA, UNCOMPLICATED 12/09/2016 GUY XIAO DO Ot K52.9 NONINFECTIVE GASTROENTERITIS AND COLITIS 12/09/2016 GUY XIAO DO Ot N28.9 DISORDER OF KIDNEY AND URETER, UNSPECIFI 12/09/2016 GUY XIAO DO Ot N39.0 URINARY TRACT INFECTION, SITE NOT SPECIF 12/09/2016 GUY XIAO DO Ot R10.84 GENERALIZED ABDOMINAL PAIN 12/09/2016 GUY XIAO DO Ot Z90.49 ACQUIRED ABSENCE OF OTHER SPECIFIED PART 12/09/2016 GUY XIAO DO Ot Z90.710 ACQUIRED ABSENCE OF BOTH CERVIX AND UTER Procedures Code Description [place] [address] UA W/ CULTURE IF INDICATED 06/15/2012 57449 PSYCH IND W/MED CK 20 08/10/2012 80309 ROUTINE VENIPUNCTURE 10/30/2012 42355 BNP 10/30/2012 71202 CMP 10/30/2012 [id number] GFR CALC (RESULT ONLY) 10/30/2012 33467 H PYLORI (IN-HOUSE) 11/07/2012 10004 ROUTINE VENIPUNCTURE 03/08/2013 96940 A1C (IN-HOUSE) 88416 ESR/SED RATE 29308 CBC 03/08/2013 10743 CRP 03/08/2013 92809 TSH 03/08/2013 55686 CPK 03/08/2013 08043 CMP 03/08/2013 [id number] GFR CALC (RESULT ONLY) 03/08/2013 ANAANA CALLUM ANALYZER (SCREEN) 03/09/2013 GRAVSPANL MYASTHENIA GRAVIS PANEL 03/18/2013 80707 UA W/ CULTURE IF INDICATED 04/26/2013 86101 CULTURE URINE 34332 ROUTINE VENIPUNCTURE 10/02/2013 50752 TRICHOMONAS (IN-HOUSE) 10/02/2013 03782 SYPHILLIS-[facility] 10/02/2013 03363 HIV ([facility]) 10/02/2013 55618 GC/CHLAM PROBE (STATE) 10/02/2013 99598 CULTURE UROGENITAL 10/03/2013 28987 UA W/ CULTURE IF INDICATED 01/01/2014 99149 UA LONG DIP 02/17 90167 ROUTINE VENIPUNCTURE 05/21/2014 41223 SED/ESR RATE (IN HOUSE) 05/21/2014 35265 LIPID PANEL 05/21 77543 PSYCH DIAGNOSTIC EVALUATION 06/25/2014 90253 ROUTINE VENIPUNCTURE 06/26/2014 59338 EKG, TRACING (IN-HOUSE) 06/26/2014 63667 CMP 06/26/2014 02124 MAGNESIUM 2014 05311 TSH 06/26/2014 CARDIOLOG LIN POWERS 06/26/2014 73266 CBC 06/26/2014 62548 PSYTX PT&/FAMILY 45 MINUTES 07/28/2014 Results Test [...] NRG Blood erythrocyte morphology finding identification NORMAL [facility] Comprehensive metabolic panel - 03/01/16 15:35 Serum [...] plasma albumin measurement (mass/volume) 4.1 g/dL 3.2-4.5 Complete blood count (CBC) with automated white blood cell (WBC) differential - 12/06/16 20:50 Blood leukocytes automated count (number/volume) 13.6 10*3/ uL 4.3-11.0 Blood erythrocytes automated count (number/volume) 4.43 10*6 /uL 4.35-5.85 Venous blood hemoglobin measurement (mass/volume) 13.8 g/dL 11.5-16.0 Blood hematocrit (volume fraction) 40 % 35-52 Automated erythrocyte mean corpuscular volume 90 [foz_us] 80-99 Automated erythrocyte mean corpuscular hemoglobin (mass per erythrocyte) 31 pg 25-34 Automated erythrocyte mean corpuscular hemoglobin concentration measurement ( mass/volume) 35 g/dL 32-36 Automated erythrocyte distribution width ratio 12.9 % 10.0-14.5 Automated blood platelet count (count/volume) 377 10*3/uL 130-400 Automated blood platelet mean volume measurement 9.3 [foz_us ] 7.4-10.4 Automated blood neutrophils/100 leukocytes 68 % 42-75 Automated blood lymphocytes/100 leukocytes 22 % 12-44 Blood monocytes/100 leukocytes 10 % 0-12 Automated blood eosinophils/100 leukocytes 0 % 0-10 Automated blood basophils/100 leukocytes 0 % 0-10 Blood neutrophils automated count (number/volume) 9.3 10*3 1.8-7.8 Blood lymphocytes automated count (number/volume) 2.9 10*3 1.0-4.0 Blood monocytes automated count (number/volume) 1.4 10*3 0.0-1.0 Automated eosinophil count 0.0 10*3/uL 0.0-0.3 Automated blood basophil count (count/volume) 0.0 10*3/uL 0.0-0.1 Comprehensive metabolic panel - 12/06/16 20:50 Serum or plasma sodium measurement (moles/volume) 135 mmol/ L 135-145 Serum or plasma potassium measurement (moles/volume) 3.8 mmol/L 3.6-5.0 Serum or plasma chloride measurement (moles/volume) 101 mmol /L 98-107 Carbon dioxide 19 mmol/L 21-32 Serum or plasma anion gap determination (moles/volume) 15 mmol/L 5-14 Serum or plasma urea nitrogen measurement (mass/volume) 20 mg/dL 7-18 Serum or plasma creatinine measurement (mass/volume) 2.02 mg /dL 0.60-1.30 Serum or plasma urea nitrogen/creatinine mass ratio 10 NRG Serum or plasma creatinine measurement with calculation of estimated glomerular filtration rate 28 NRG Serum or plasma glucose measurement (mass/volume) 82 mg/dL 70-105 Serum or plasma calcium measurement (mass/volume) 9.7 mg/dL 8.5-10.1 Serum or plasma total bilirubin measurement (mass/volume) 0.3 mg/dL 0.1-1.0 Serum or plasma alkaline phosphatase measurement (enzymatic activity/volume) 129 U/L 40-136 Serum or plasma aspartate aminotransferase measurement (enzymatic activity/ volume) 22 U/L 5-34 Serum or plasma alanine aminotransferase measurement (enzymatic activity/volume ) 26 U/L 0-55 Serum or plasma protein measurement (mass/volume) 8.3 g/dL 6.4-8.2 Serum or plasma albumin measurement (mass/volume) 4.9 g/dL 3.2-4.5 Magnesium - 12/06/16 20:50 Magnesium 2.4 mg/dL 1.8-2.4 Serum or plasma amylase measurement (enzymatic activity/volume) - 12/06/16 20: 50 Serum or plasma amylase measurement (enzymatic activity/volume) 59 U/L 25-125 Lipase - 12/06/16 20:50 Lipase 25 U/L 8-78 Complete urinalysis with reflex to culture - 12/06/16 21:42 Urine color determination YELLOW NRG Urine clarity [...] NORMAL Urine leukocyte esterase detection by dipstick 2+ NEGATIVE Automated urine sediment erythrocyte count by microscopy (number/high power field) none NRG Automated urine sediment leukocyte count by microscopy (number/high power field ) [HPF] NRG Bacteria detection in urine sediment by light microscopy MODERATE NRG Squamous epithelial cells detection in urine sediment by light microscopy >50 NRG Crystals detection in urine sediment by light microscopy NONE NRG Casts detection in urine sediment by light microscopy NONE NRG Mucus detection in urine sediment by light microscopy MODERATE NRG Complete urinalysis with reflex to culture YES NRG Urine drug screening test - 12/06/16 21:42 Urine phencyclidine detection by screening method NEGATIVE NEGATIVE Urine benzodiazepines detection by screening method POSITIVE NEGATIVE Urine cocaine detection NEGATIVE NEGATIVE Urine amphetamines detection by screening method NEGATIVE NEGATIVE Urine methamphetamine detection by screening method NEGATIVE NEGATIVE Urine cannabinoids detection by screening method NEGATIVE NEGATIVE Urine opiates detection by screening method NEGATIVE NEGATIVE Urine barbiturates detection NEGATIVE NEGATIVE Screening urine tricyclic antidepressants detection POSITIVE NEGATIVE Urine methadone detection by screening method NEGATIVE NEGATIVE Urine oxycodone detection NEGATIVE NEGATIVE Urine propoxyphene detection NEGATIVE NEGATIVE Bacterial urine culture - 12/06/16 21:42 Bacterial urine culture [id number] NRG COLONY COUNT 10,000/ML - 100,000/ML NRG FTX;REPORTABLE SENSITIVITY REPORTED AT 0830, 12-08-16 NRG URINE CULTURE RESULTS PLUS NRG Bacterial susceptibility panel - 12/06/16 21:42 Gentamicin susceptibility test by minimum inhibitory concentration <= NRG Trimethoprim/sulfamethoxazole susceptibility test by minimum inhibitoryconcentration <= NRG Ampicillin susceptibility test by minimum inhibitory concentration 8 NRG Tobramycin susceptibility test by minimum inhibitory concentration <= NRG Cefazolin susceptibility test by minimum inhibitory concentration <= NRG Ceftriaxone susceptibility test by minimum inhibitory concentration <= NRG Ampicillin/sulbactam susceptibility test by minimum inhibitory concentration 4 NRG Piperacillin/tazobactam susceptibility test by minimum inhibitory concentration <= NRG Ciprofloxacin susceptibility test by minimum inhibitory concentration <= NRG Meropenem susceptibility test by minimum inhibitory concentration <= NRG Nitrofurantoin susceptibility test by minimum inhibitory concentration <= NRG Aztreonam susceptibility test by minimum inhibitory concentration <= NRG Extended spectrum beta lactamase (ESBL) producing bacteria susceptibility test by minimum inhibitory concentration - NRG Encounters ACCT No. Visit Date/Time Discharge Status Pt. Type Provider Facility Loc./Unit Complaint [id number] 08/22/2014 13:09:00 08/22/2014 23: 59:59 CLS Outpatient CARLOS AHUJA [id number] 07/28/2014 09:24:00 07/28/2014 23: 59:59 CLS Outpatient CARLOS AHUJA [id number] 07/28/2014 09:24:00 07/28/2014 23: 59:59 CLS Outpatient CARLOS AHUJA [id number] 07/16/2014 09:41:00 07/16/2014 23: 59:59 CLS Outpatient WENDI BLACK MD [id number] 06/26/2014 13:30:00 06/26/2014 23: 59:59 CLS Outpatient WENDI BLACK MD [id number] 06/26/2014 13:30:00 06/26/2014 23: 59:59 CLS Outpatient WENDI BLACK MD [id number] 06/25/2014 10:06:00 06/25/2014 23: 59:59 CLS Outpatient TIN HEREDIA PSYD [id number] 06/23/2014 08:04:00 06/23/2014 23: 59:59 CLS Outpatient CARLOS AHUJA [id number] 05/21/2014 11:37:00 05/21/2014 23: 59:59 CLS Outpatient WENDI BLACK MD [id number] 05/21/2014 11:37:00 05/21/2014 23: 59:59 CLS Outpatient WENDI BLACK MD [id number] 02/21/2014 16:26:00 02/21/2014 23: 59:59 CLS Outpatient PAIGE HECK MANAV LONG [id number] 02/17/2014 14:00:00 02/17/2014 23: 59:59 CLS Outpatient DIMPLE PEÑALOZA DO [id number] 02/17/2014 14:00:00 02/17/2014 23: 59:59 CLS Outpatient DIMPLE PEÑALOZA DO [id number] 01/01/2014 10:30:00 01/01/2014 23: 59:59 CLS Outpatient WENDI BLACK MD [id number] 01/01/2014 10:30:00 01/01/2014 23: 59:59 CLS Outpatient WENDI BLACK MD [id number] 10/23/2013 10:35:00 10/23/2013 23: 59:59 CLS Outpatient PAIGE HECK MANAV ALVES [id number] 10/02/2013 10:27:00 10/02/2013 23: 59:59 CLS Outpatient MAU NAVARRO APRN [id number] 07/26/2013 11:02:00 07/26/2013 23: 59:59 CLS Outpatient MANAV GIBSON APRN [id number] 04/26/2013 13:33:00 04/26/2013 23: 59:59 CLS Outpatient DIMPLE PEÑALOZA DO [id number] 03/08/2013 14:50:00 03/08/2013 23: 59:59 CLS Outpatient TEOFILO FELICIANO MD [id number] 09/04/2012 15:25:00 09/04/2012 23: 59:59 CLS Outpatient DIMPLE PEÑALOZA DO [id number] 08/24/2012 15:09:00 08/24/2012 23: 59:59 CLS Outpatient [id number] 08/10/2012 09:40:00 08/10/2012 23: 59:59 CLS Outpatient MANAV GIBSON APRN [id number] 06/21/2012 11:34:00 06/21/2012 23: 59:59 CLS Outpatient MANAV GIBSON APRN [id number] 06/18/2012 08:06:00 06/18/2012 23: 59:59 CLS Outpatient [id number] 06/15/2012 12:10:00 06/15/2012 23: 59:59 CLS Outpatient [id number] 04/23/2012 13:28:00 04/23/2012 23: 59:59 CLS Outpatient [id number] 03/27/2012 07:58:00 03/27/2012 23:59 :59 CLS Outpatient DIMPLE PEÑALOZA DO [id number] 11/07/2012 17:40:00 Document Registration [id number] 10/30/2012 15:03:00 Document Registration [id number] 09/20/2012 09:48:00 Document Registration
[2016-12-21 13:47] LABS: BILIRUBIN,URINE NEGATIVE (NEGATIVE); KETONES,URINE NEGATIVE (NEGATIVE); LEUKOCYTE ESTERASE ,URINE 1+ (NEGATIVE); NITRITE,URINE NEGATIVE (NEGATIVE); PH,URINE 6 (5-9); PROTEIN,URINE 2+ (NEGATIVE); UROBILINOGEN,URINE 1 MG/DL (NORMAL)
--- NOTE | 2016-12-21 13:50 | ED Lower Extremity ---
General Chief Complaint: Lower Extremity Stated Complaint: RIGHT LEG PAIN Nursing Triage Note: AMB TO ROOM REPORTS WOKE UP LAST MONDAY WITH R HIP AND BACK PAIN . WAS SEEN AT [facility] YESTERDAY GIVEN PREDISONE AND SUN. WAS SUPPOSE TO WORK YESTERDAY BUT LOST BALANCE AND FELL WAS UNABLE TO GO TO WORK. IS SUUPPOSE TO GO TO WORK TODA REPORTS MEDS NOT HELPING. Nursing Sepsis Screen: No Definite Risk Source: patient Exam Limitations: no limitations History of Present Illness Time seen by provider: 13:30 Initial Comments 36 yo female patient presents to the ED with c/o rt low back pain radiating down the lateral hip and anterior thigh. Also c/o tenderness and swelling of the medial thigh. Has a history of infected cysts of the thigh/groin. Denies fevers, abdominal pain, bowel incontinence, or bladder incontinence.. Denies known injury. Patient states she was seen by [facility] walk in clinic on Monday, but states "I don't know why they even have that thing!" Denies being given medications Monday. Was seen by [facility] Monday and given prednisone and ibuprofen. States she is only taking 10 mg of prednisone instead of instructed dosage. last took 800 mg of Motrin at 1100 today. Onset: other (onset last monday) Method of Injury: unknown (denies known injury.) Modifying Factors: Improves With Immobilization, Worse With Movement, Worse With Pain Medication (no improvement with motrin) Allergies and Home Medications Allergies Coded Allergies: Sulfa (Sulfonamide Antibiotics) (Unverified Allergy, Unknown, 07/31/14) amoxicillin (Unverified Allergy, Unknown, 07/31/14) morphine (Unverified Allergy, Unknown, 07/31/14) paroxetine (Unverified Allergy, Unknown, 07/31/14) sulfamethoxazole (Unverified Allergy, Unknown, 07/31/14) tramadol (Verified Allergy, Unknown, itching, 12/21/16) trimethoprim (Unverified Allergy, Unknown, 07/31/14) acetaminophen (Verified Adverse Reaction, Intermediate, nausea, 12/21/16) codeine (Verified Adverse Reaction, Intermediate, nausea, 12/21/16) hydrocodone (Unverified Adverse Reaction, Intermediate, nausea, 12/21/16) Home Medications Acyclovir 400 Mg Tablet, #60 (Reported) Alprazolam 2 Mg Tablet, 2 MG PO TID PRN for ANXIETY, (Reported) Amitriptyline HCl 50 Mg Tablet, 50 MG PO HS, #30 (Reported) Amitriptyline HCl 25 Mg Tablet, 25 MG PO DAILY, (Reported) Amlodipine Besylate 5 Mg Tablet, 5 MG PO DAILY, (Reported) Cholecalciferol (Vitamin D3) 50,000 Unit Capsule, 50,000 UNIT PO WEEK, (Reported ) Clindamycin HCl 300 Mg Capsule, 300 MG PO Q8H, #21 Ref 0 Prescribed by: UZMA CARNES on 12/21/161404 Cyclobenzaprine HCl 10 Mg Tablet, 10 MG PO Q8H PRN for SPASMS, #10 Ref 0 Prescribed by: UZMA CARNES on 12/21/161404 Dicyclomine HCl 10 Mg Capsule, 10 MG PO Q6H PRN for ABDOMINAL PAIN, #15 Prescribed by: GUY XIAO on 12/06/162154 Gabapentin 300 Mg Tablet, 900 MG PO BID, (Reported) Hyoscyamine Sulfate 0.125 Mg Tab.subl, 1-2 TAB SL Q4H, #10 Prescribed by: GUY XIAO on 12/06/162154 Lisinopril 10 Mg Tablet, Unknown Dose PO, (Reported) Mirtazapine 30 Mg Tablet, Unknown Dose PO, (Reported) Nitrofurantoin Monohyd/M-Cryst 100 Mg Capsule, 100 MG PO BID, #20 Prescribed by: GUY XIAO on 12/06/162206 Omeprazole 20 Mg Capsule.dr, 20 MG PO DAILY, (Reported) Ondansetron 4 Mg Tab.rapdis, 4 MG PO Q4H, #10 Prescribed by: GUY XIAO on 12/06/162154 Ondansetron HCl 4 Mg Tab, 4 MG PO Q6H PRN for NAUSEA/VOMITING-1ST LINE, #20 Ref 0 Prescribed by: CRYSTAL SINGLETON on 09/25/162237 Polyethylene Glycol 3350 17 Gm Powd.pack, 17 GM PO BID PRN for 3 Days, #1 Ref 0 Prescribed by: CRYSTAL SINGLETON on 09/25/162237 Constitutional: No chills, No fever, No malaise Respiratory: no symptoms reported Cardiovascular: no symptoms reported Gastrointestinal: no symptoms reported Genitourinary: No dysuria, No frequency, No hematuria, No pain Musculoskeletal: see HPI, back pain (rt low back), joint pain (rt hip) Skin: see HPI Psychiatric/Neurological: Denies Numbness, Denies Paresthesia, Denies Tingling , Denies Weakness All Other Systems Reviewed Negative Unless Noted: Yes (Negative excepted noted.) Past Ssxhwds-Pqhggt-Bcusfv Hx Patient Social History Alcohol Use: Denies Use Recreational Drug Use: No Smoking Status: Current Everyday Smoker Type Used: Cigarettes Recent Foreign Travel: No Contact w/Someone Who Travel: No Recent Infectious Disease Expo: No Recent Hopitalizations: No Immunizations Up To Date Tetanus Booster (TDap): Less than 5yrs Seasonal Allergies Seasonal Allergies: No Surgeries HX Surgeries: Yes Surgeries: Breast, Gallbladder, Hysterectomy, Nose Respiratory Hx Respiratory Disorders: Yes Respiratory Disorders: Asthma Cardiovascular Hx Cardiac Disorders: Yes Cardiac Disorders: High Cholesterol, Hypertension Neurological Hx Neurological Disorders: No 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 System Hx 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 Disorders: No Sexually Transmitted Disease: No 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 Genitourinary Hx Genitourinary Disorders: Yes Genitourinary Disorders: UTI-Chronic Gastrointestinal Hx Gastrointestinal Disorders: No Musculoskeletal Hx Musculoskeletal Disorders: Yes (LEFT FOOT FRACTURE) Musculoskeletal Disorders: Fractures Endocrine Hx Endocrine Disorders: No HEENT HX ENT Disorders: No Cancer Hx Cancer: No Psychosocial Hx Psychiatric Problems: Yes (SUICIDAL IDEATION) Behavioral Health Disorders: Anxiety, Depression Integumentary HX Skin/Integumentary Disorder: No Blood Transfusions Hx Blood Disorders: No Adverse Reaction to a Blood Tr: No Reviewed Nursing Assessment Reviewed/Agree w Nursing PMH: Yes Family Medical History Significant Family History: No Pertinent Family Hx Physical Exam Vital Signs Vital Sign - Last 12Hours 12/21/16 13:01 Temp 97.8 Pulse 96 Resp 18 B/P (MAP) 118/73 Pulse Ox 96 O2 Delivery Room Air Capillary Refill : Less Than 3 Seconds General Appearance: WD/WN, no apparent distress Neck: supple, normal inspection Cardiovascular: normal peripheral pulses, regular rate, rhythm, no edema, no murmur Respiratory: lungs clear, normal breath sounds, no respiratory distress Gastrointestinal: normal bowel sounds, non tender, soft, No distended Hips: left hip non-tender, bilateral hip normal inspection, bilateral hip normal range of motion, bilateral hip no evidence of injury, right hip soft tissue tenderness (rt buttock tender to palpation without evidence of trauma.) Legs: left leg non-tender, left leg normal inspection, bilateral leg normal range of motion, bilateral leg no evidence of injury, right leg soft tissue tenderness (rt medial, proximal thigh TTP with several sebaceous cysts. mild swelling and tenderness of the proximal cysts without visible erythema.) Knees: bilateral knee non-tender, left knee normal inspection, bilateral knee normal range of motion, bilateral knee no evidence of injury, right knee joint effusion ((nontender on exam)) Ankles: bilateral ankle non-tender, bilateral ankle normal inspection, bilateral ankle normal range of motion, bilateral ankle no evidence of injury Feet: bilateral foot non-tender, bilateral foot normal inspection, bilateral foot normal range of motion, bilateral foot no evidence of injury Neurologic/Tendon: normal sensation, normal motor functions, normal tendon functions, responds to pain Neurologic/Psychiatric: no motor/sensory deficits, alert, normal mood/affect, oriented x 3 Skin: normal color, warm/dry, other (rt medial, proximal thigh TTP with several sebaceous cysts. mild swelling and tenderness of the proximal cysts without visible erythema.) Progress/Results/Core Measures Results/Orders Lab Results Laboratory Tests Test 12/21/16 13:17 Range/Units Urine Color YELLOW Urine Clarity VERY CLOUDY H Urine pH 6 5-9 Urine Specific [place] 1.015 L 1.016-1.022 Urine Protein 2+ H NEGATIVE Urine Glucose (UA) NEGATIVE NEGATIVE Urine Ketones NEGATIVE NEGATIVE Urine Nitrite NEGATIVE NEGATIVE Urine Bilirubin NEGATIVE NEGATIVE Urine Urobilinogen 1 NORMAL MG/DL Urine Leukocyte Esterase 1+ H NEGATIVE Urine RBC (Auto) NEGATIVE NEGATIVE Urine RBC NONE /HPF Urine WBC 2-5 /HPF Urine Squamous Epithelial Cells TNTC H /HPF Urine Crystals NONE /LPF Urine Bacteria LARGE H /HPF Urine Casts NONE /LPF Urine Mucus NEGATIVE /LPF Urine Culture Indicated NO My Orders Orders - UZMA CARNES Ua Culture If Indicated (12/21/16 13:42) Vital Signs/I&O Vital Sign - Last 12Hours 12/21/16 13:01 Temp 97.8 Pulse 96 Resp 18 B/P (MAP) 118/73 Pulse Ox 96 O2 Delivery Room Air Blood Pressure Mean: 88 Departure Communication Progress Notes Patient seen and evaluated. Urine specimen noted to be very cloudy by RN. UA performed which showed TNTC squamous cells; therefore is contaminated. Patient is unable to take tylenol, hydrocodone, codeine, tramadol or morphine. Patient last took 800 mg of motrin at 1100 this AM. Patient instructed to take flexeril when she arrives home as she is driving herself from the ED and does not have anyone to pick her up. Patient to f/u with her PCP for recheck if needed. Impression Impression: Primary Impression: Low back pain with sciatica Qualified Codes: M54.41 - Lumbago with sciatica, right side Additional Impression: Infected sebaceous cyst of skin Disposition: HOME, SELF-CARE Condition: Improved Departure-Patient Inst. Decision time for Depature: 13:56 Referrals: WENDI BLACK MD (PCP/Family) Primary Care Physician Patient Instructions: Back Exercises, Back Flexion Strengthening Exercises, Low Back Pain (DC) Add. Discharge Instructions: All discharge instructions reviewed with patient and/or family. Voiced understanding. Medications as directed. Continue usual home medications. Take half of the prescribed dose of prednisone in the morning and half in the afternoon. No heavy lifting, pushing, or pulling x5-7 days. Then increase activity as tolerated. Heating pads or pack as needed for pain. Follow[facility] an [facility] for recheck if no improvement in symptoms in the next 7-10 days. Consider massage therapy, a chiropractor, and/ or an inversion table. Return to the emergency department for numbness, weakness, fever, bowel incontinence, bladder incontinence, drainage, redness, or any other concerns. Scripts Cyclobenzaprine HCl (Cyclobenzaprine HCl) 10 Mg Tablet 10 MG PO Q8H Y for SPASMS, #10 TAB 0 Refills Prov: UZMA CARNES 12/21/16 Clindamycin HCl (Cleocin HCl) 300 Mg Capsule 300 MG PO Q8H, #21 CAP 0 Refills Prov: UZMA CARNES 12/21/16 Work/School Note: Work Release Form Date Seen in the Emergency Department: Dec 21, 2016 Return to Work: Dec 23, 2016 Other Restrictions Listed Below: no heavy lifting, pushing, or pulling for 5-7 days. UZMA CARNES Dec 21, 2016 13:50
[2016-12-21 13:55] LABS: SQUAMOUS EPITHELIAL CELL,UR TNTC /HPF
[2016-12-21] MEDS ORDERED: CYCL10TA9 PO (14:05)
[2016-12-21] MEDS ORDERED: CLIN300C3 PO (14:05)
[2016-12-21 14:16] VITALS: BP 118/73
== END 2016-12-21 14:17 | disposition home or self-care (01) ==
LOC: EDUNIT# 12:27 → ER 12:29
DX: M54.41 Lumbago with sciatica, right side (principal); L72.3 Sebaceous cyst; J45.909 Unspecified asthma, uncomplicated; E78.00 Pure hypercholesterolemia, unspecified; I10 Essential (primary) hypertension; F41.9 Anxiety disorder, unspecified; F32.9 Major depressive disorder, single episode, unspecified; F17.210 Nicotine dependence, cigarettes, uncomplicated; Z90.49 Acquired absence of other specified parts of digestive tract; Z90.710 Acquired absence of both cervix and uterus
CPT/HCPCS: 81000; 99283

== ENCOUNTER 2016-12-28 15:42 | Emergency (ER) | payer OTHER ==
[~2016-12-28] VITALS: Ht 172.7 cm; Wt 122.5 kg
[~2016-12-28 15:42] MED LIST changes: +CLIN300C3 PO
[2016-12-28] MEDS ORDERED: KETOROLAC 60 MG/2 ML VIAL IM STA (17:23)
[2016-12-28] MEDS ORDERED: CYCLOBENZAPRINE 10 MG (FLEXERIL) TAB PO STA (17:23)
[2016-12-28 17:24] LABS: BILIRUBIN,URINE NEGATIVE (NEGATIVE); KETONES,URINE NEGATIVE (NEGATIVE); LEUKOCYTE ESTERASE ,URINE 1+ (NEGATIVE); NITRITE,URINE NEGATIVE (NEGATIVE); PH,URINE 6 (5-9); PROTEIN,URINE NEGATIVE (NEGATIVE); UROBILINOGEN,URINE NORMAL (NORMAL)
--- NOTE | 2016-12-28 17:31 | ED Back Pain ---
General Chief Complaint: Back Problems Stated Complaint: LOWER BACK/RT LEG PAIN Nursing Triage Note: c/o low back pain with radiation down right leg. Onset 1.5 weeks ago. Denies acute trauma. Nursing Sepsis Screen: No Definite Risk History of Present Illness Time Seen by Provider: 17:10 Initial Comments Evaluation for low back and right leg pain. This is a chronic problem that has become acutely worse over the last week and a half. She was evaluated and treated by a chiropractor yesterday and today. She was evaluated here 12/21/16 and prescribed Flexeril she did not fill this prescription due to financial restrictions. Location: Lumbar Spine, Paraspinous Muscles Timing/Duration: Getting Worse Severity: Moderate Pain/Injury Location: Other (low back) Radiation: Buttocks, Upper Legs Modifying Factors: Improves With Pain Medication (ibuprofen), Improves With Rest Associated Symptoms: muscle spasms, tingling in legs/feet (right-sided), lower back pain, No loss of bladder control, No loss of bowel control Allergies and Home Medications Allergies Coded Allergies: Sulfa (Sulfonamide Antibiotics) (Unverified Allergy, Unknown, 07/31/14) amoxicillin (Unverified Allergy, Unknown, 07/31/14) morphine (Unverified Allergy, Unknown, 07/31/14) paroxetine (Unverified Allergy, Unknown, 07/31/14) sulfamethoxazole (Unverified Allergy, Unknown, 07/31/14) tramadol (Verified Allergy, Unknown, itching, 12/21/16) trimethoprim (Unverified Allergy, Unknown, 07/31/14) acetaminophen (Verified Adverse Reaction, Intermediate, nausea, 12/21/16) codeine (Verified Adverse Reaction, Intermediate, nausea, 12/21/16) hydrocodone (Unverified Adverse Reaction, Intermediate, nausea, 12/21/16) Home Medications Acyclovir 400 Mg Tablet, #60 (Reported) Alprazolam 2 Mg Tablet, 2 MG PO TID PRN for ANXIETY, (Reported) Amitriptyline HCl 50 Mg Tablet, 50 MG PO HS, #30 (Reported) Amitriptyline HCl 25 Mg Tablet, 25 MG PO DAILY, (Reported) Amlodipine Besylate 5 Mg Tablet, 5 MG PO DAILY, (Reported) Cholecalciferol (Vitamin D3) 50,000 Unit Capsule, 50,000 UNIT PO WEEK, (Reported ) Clindamycin HCl 300 Mg Capsule, 300 MG PO Q8H, #21 Ref 0 Prescribed by: UZMA CARNES on 12/21/161404 Cyclobenzaprine HCl 10 Mg Tablet, 10 MG PO Q8H PRN for SPASMS, #10 Ref 0 Prescribed by: UZMA CARNES on 12/21/161404 Dicyclomine HCl 10 Mg Capsule, 10 MG PO Q6H PRN for ABDOMINAL PAIN, #15 Prescribed by: GUY XIAO on 12/06/162154 Gabapentin 300 Mg Tablet, 900 MG PO BID, (Reported) Hyoscyamine Sulfate 0.125 Mg Tab.subl, 1-2 TAB SL Q4H, #10 Prescribed by: GUY XIAO on 12/06/162154 Lisinopril 10 Mg Tablet, Unknown Dose PO, (Reported) Mirtazapine 30 Mg Tablet, Unknown Dose PO, (Reported) Nitrofurantoin Monohyd/M-Cryst 100 Mg Capsule, 100 MG PO BID, #20 Prescribed by: GUY XIAO on 12/06/162206 Omeprazole 20 Mg Capsule.dr, 20 MG PO DAILY, (Reported) Ondansetron 4 Mg Tab.rapdis, 4 MG PO Q4H, #10 Prescribed by: GUY XIAO on 12/06/162154 Ondansetron HCl 4 Mg Tab, 4 MG PO Q6H PRN for NAUSEA/VOMITING-1ST LINE, #20 Ref 0 Prescribed by: CRYSTAL SINGLETON on 09/25/162237 Polyethylene Glycol 3350 17 Gm Powd.pack, 17 GM PO BID PRN for 3 Days, #1 Ref 0 Prescribed by: CRYSTAL SINGLETON on 09/25/162237 Constitutional: no symptoms reported, see HPI Musculoskeletal: see HPI, back pain, muscle pain, muscle cramps Past [place]-Mosscw-Irfdou Hx Patient Social History Alcohol Use: Denies Use Recreational Drug Use: No Smoking Status: Never a Smoker Type Used: Cigarettes Recent Foreign Travel: No Contact w/Someone Who Travel: No Recent Infectious Disease Expo: No Recent Hopitalizations: No Immunizations Up To Date Tetanus Booster (TDap): Less than 5yrs Seasonal Allergies Seasonal Allergies: No Surgeries HX Surgeries: Yes Surgeries: Breast, Gallbladder, Hysterectomy, Nose Respiratory Hx Respiratory Disorders: Yes Respiratory Disorders: Asthma Cardiovascular Hx Cardiac Disorders: Yes Cardiac Disorders: High Cholesterol, Hypertension Neurological Hx Neurological Disorders: No 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 System Hx 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 Disorders: No Sexually Transmitted Disease: No 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 Genitourinary Hx Genitourinary Disorders: Yes Genitourinary Disorders: UTI-Chronic Gastrointestinal Hx Gastrointestinal Disorders: No Musculoskeletal Hx Musculoskeletal Disorders: Yes (LEFT FOOT FRACTURE) Musculoskeletal Disorders: Fractures Endocrine Hx Endocrine Disorders: No HEENT HX ENT Disorders: No Cancer Hx Cancer: No Psychosocial Hx Psychiatric Problems: Yes (SUICIDAL IDEATION) Behavioral Health Disorders: Anxiety, Depression Integumentary HX Skin/Integumentary Disorder: No Blood Transfusions Hx Blood Disorders: No Adverse Reaction to a Blood Tr: No Reviewed Nursing Assessment Reviewed/Agree w Nursing PMH: Yes Family Medical History Significant Family History: No Pertinent Family Hx Physical Exam Vital Signs Vital Sign - Last 12Hours 12/28/16 16:58 Temp 97.5 Pulse 82 Resp 16 B/P (MAP) 112/68 Pulse Ox 98 O2 Delivery Room Air Capillary Refill : Less Than 3 Seconds General Appearance: No Apparent Distress, WD/WN HEENT: PERRL/EOMI, TMs Normal, Normal ENT Inspection, Pharynx Normal Neck: Full Range of Motion, Normal Inspection, Non Tender, Supple Cardiovascular: Regular Rate, Rhythm, No Edema, No Murmur Respiratory: Chest Non Tender, Lungs Clear Gastrointestinal: Normal Bowel Sounds, No Organomegaly, No Pulsatile Mass, Non Tender, Soft Back: No CVA Tenderness, Decreased Range of Motion, Muscle Spasm, Vertebral Tenderness (secondary to pain), Other (has a straight leg raising sign on the right. PowerV/V L4-S1 bilat. Pain with L4 muscle testing on the right. Decreased sensation L4 dermatome on the right. ) Progress/Results/Core Measures Results/Orders Lab Results Laboratory Tests Test 12/28/16 17:00 Range/Units Urine Color YELLOW Urine Clarity CLEAR Urine pH 6 5-9 Urine Specific [place] 1.010 L 1.016-1.022 Urine Protein NEGATIVE NEGATIVE Urine Glucose (UA) NEGATIVE NEGATIVE Urine Ketones NEGATIVE NEGATIVE Urine Nitrite NEGATIVE NEGATIVE Urine Bilirubin NEGATIVE NEGATIVE Urine Urobilinogen NORMAL NORMAL MG/DL Urine Leukocyte Esterase 1+ H NEGATIVE Urine RBC (Auto) NEGATIVE NEGATIVE Urine RBC NONE /HPF Urine WBC 5-10 H /HPF Urine Squamous Epithelial Cells 10-25 H /HPF Urine Crystals NONE /LPF Urine Bacteria FEW H /HPF Urine Casts NONE /LPF Urine Mucus NEGATIVE /LPF Urine Culture Indicated YES My Orders Orders - JASMINA MONTERO Ua Culture If Indicated (12/28/16 16:59) Urine Culture (12/28/16 17:00) Cyclobenzaprine Tablet (Flexeril Tablet) (12/28/16 17:23) Ketorolac Injection (Toradol Injection) (12/28/16 17:23) Vital Signs/I&O Vital Sign - Last 12Hours 12/28/16 12/28/16 12/28/16 16:58 17:38 18:28 Temp 97.5 97.5 97.5 Pulse 82 70 Resp 16 13 B/P (MAP) 112/68 Pulse Ox 98 99 O2 Delivery Room Air Blood Pressure Mean: 83 Progress Note : Time: 17:10 Progress Note Initial evaluation completed, will use Flexeril 10 mg by mouth and Toradol 60 mg IM for pain and muscle spasms. 174 patient reports trace improvement in her symptoms. She reports that she did not fill the clindamycin or Flexeril prescription that was given to her previous ED visit. Call [facility] pharmacy both prescriptions are still on file and available for the patient.. She reports that she is getting paid tomorrow and will be able to get her prescription at that time. Talked with the patient about getting evaluations at [facility] and patient assistance for prescriptions there. Departure Impression Impression: Primary Impression: Lumbar radiculopathy Additional Impression: Back pain Qualified Codes: M54.41 - Lumbago with sciatica, right side Disposition: 01 HOME, SELF-CARE Condition: Stable Departure-Patient Inst. Decision time for Depature: 17:30 Referrals: WENDI BLACK MD (PCP/Family) Primary Care Physician Patient Instructions: Lumbar Muscle Strain (DC), Low Back Pain (DC), Radiculopathy (DC) Add. Discharge Instructions: Alternate between heat and ice to lower lumbar spine 20 minutes every 2 hours. Follow-up with Dr. Black to consider referral to spine surgeon. Get prescriptions previously sent to [facility] and last ED visit. Ibuprofen 800 mg every 8 hours. Use a walker or crutches for weakness in the right leg. Return to emergency department for urinary or bowel retention or incontinence, increased low back pain, or new problems. All discharge instructions reviewed with patient and/or family. Voiced understanding. Copy Copies To 1: WENDI BLACK MD, AMY ARNP Dec 28, 2016 17:31
[2016-12-28 18:28] VITALS: BP 118/72
--- OUTSIDE RECORDS SUMMARY | 2017-01-05 00:22 | XMS REPORT | Continuity of Care Document ---
Author Author [facility] Address Unknown Phone Unavailable Allergies Active [...] Latex OA N/A N/A 04/26/2013 Yes amoxicillin [id number] Drug Allergy Unknown N/A 07/31/2014 Yes hydrocodone [id number] Drug Allergy Unknown N/A 07/31/2014 Yes morphine [id number] Drug Allergy Unknown N/A 07/31/2014 Yes paroxetine [id number] Drug Allergy Unknown N/A 07/31/2014 Yes Sulfa (Sulfonamide Antibiotics) [id number] Drug Allergy Unknown N/A 07/31/2014 Yes sulfamethoxazole [id number] Drug Allergy Unknown N/A 07/31/2014 Yes trimethoprim [id number] Drug Allergy Unknown N/A 07/31/2014 Yes Abilify 2 mg tablet Drug Allergy N/A N/A 08/22/2014 Yes acetaminophen [id number] Drug Allergy Moderate nausea 12/21/2016 Yes codeine [id number] Drug Allergy Moderate nausea 12/21/2016 Yes hydrocodone [id number] Drug Allergy Moderate nausea 12/21/2016 Yes tramadol [id number] Drug Allergy Unknown itching 12/21/2016 Medications Problems Date Dx Coded Attending Type Code Diagnosis Diagnosed By 12/25/2007 682.9 CELLULITIS AND ABSCESS OF UNSPECIFIED SITES 12/25/2007 884.0 WOUND OPEN UPPER LIMB 12/25/2007 682.9 CELLULITIS AND ABSCESS OF UNSPECIFIED SITES 12/25/2007 884.0 WOUND OPEN UPPER LIMB 12/25/2007 682.9 CELLULITIS AND ABSCESS OF UNSPECIFIED SITES 12/25/2007 884.0 WOUND OPEN UPPER LIMB 12/25/2007 GIBSON PICK UP DRIVER, MANAV WHITEH 682.9 CELLULITIS AND ABSCESS OF UNSPECIFIED SITES 12/25/2007 GIBSON PICK UP DRIVER, MANAV WHITEH 884.0 WOUND OPEN UPPER LIMB 12/25/2007 GIBSON PICK UP DRIVER, MANAV WHITEH 682.9 CELLULITIS AND ABSCESS OF UNSPECIFIED SITES 12/25/2007 GIBSON PICK UP DRIVER, MANAV WHITEH 884.0 WOUND OPEN UPPER LIMB 12/25/2007 682.9 CELLULITIS AND ABSCESS OF UNSPECIFIED SITES 12/25/2007 884.0 Wound Open Upper Limb 12/25/2007 DIMPLE PEÑALOZA DO 682.9 CELLULITIS AND ABSCESS OF UNSPECIFIED SITES 12/25/2007 DIMPLE PEÑALOZA DO 884.0 Wound Open Upper Limb 12/25/2007 682.9 CELLULITIS AND ABSCESS OF UNSPECIFIED SITES 12/25/2007 884.0 Wound Open Upper Limb 12/25/2007 682.9 CELLULITIS AND ABSCESS OF UNSPECIFIED SITES 12/25/2007 884.0 Wound Open Upper Limb 12/25/2007 682.9 CELLULITIS AND ABSCESS OF UNSPECIFIED SITES 12/25/2007 884.0 Wound Open Upper Limb 12/25/2007 DIMPLE PEÑALOZA DO 682.9 CELLULITIS AND ABSCESS OF UNSPECIFIED SITES 12/25/2007 DIMPLE PEÑALOZA DO 884.0 WOUND OPEN UPPER LIMB 12/25/2007 TEOFILO FELICIANO MD 682.9 CELLULITIS AND ABSCESS OF UNSPECIFIED SITES 12/25/2007 TEOFILO FELICIANO MD 884.0 Wound Open Upper Limb 12/25/2007 DIMPLE PEÑALOZA DO 682.9 CELLULITIS AND ABSCESS OF UNSPECIFIED SITES 12/25/2007 DIMPLE PEÑALOZA DO 884.0 Wound Open Upper Limb 12/25/2007 PAIGE HECK MANAV WHITEH 682.9 CELLULITIS AND ABSCESS OF UNSPECIFIED SITES 12/25/2007 PAIGE HECK MANAV WHITEH 884.0 Wound Open Upper Limb 12/25/2007 RAMON PICK UP DRIVER, MAU A 682.9 CELLULITIS AND ABSCESS OF UNSPECIFIED SITES 12/25/2007 RAMON PICK UP DRIVER, MAU A 884.0 Wound Open Upper Limb 12/25/2007 PAIGE HECK MANAV ALVES 682.9 CELLULITIS AND ABSCESS OF UNSPECIFIED SITES 12/25/2007 GIBSON APRN, MANAV ALVES 884.0 Wound Open Upper Limb 12/25/2007 WENDI BLACK MD 682.9 CELLULITIS AND ABSCESS OF UNSPECIFIED SITES 12/25/2007 WENDI BLACK MD N 884.0 Wound Open Upper Limb 12/25/2007 WENDI BLACK MD 682.9 CELLULITIS AND ABSCESS OF UNSPECIFIED SITES 12/25/2007 WENDI BLACK MD 884.0 Wound Open Upper Limb 12/25/2007 AQUILES PEÑALOZA DOA K 682.9 CELLULITIS AND ABSCESS OF UNSPECIFIED SITES 12/25/2007 JH YEPEZ DIMPLE K 884.0 Wound Open Upper Limb 12/25/2007 PAIGE HECK MANAV WHITEH 682.9 CELLULITIS AND ABSCESS OF UNSPECIFIED SITES 12/25/2007 PAIGE HECK MANAV ALVES 884.0 Wound Open Upper Limb 12/25/2007 AQUILES PEÑALOZA DOA K 682.9 CELLULITIS AND ABSCESS OF UNSPECIFIED SITES 12/25/2007 AQUILES PEÑALOZA DOA K 884.0 Wound Open Upper Limb 12/25/2007 WENDI BLACK MD N 682.9 CELLULITIS AND ABSCESS OF UNSPECIFIED SITES 12/25/2007 WENDI BLACK MD N 884.0 Wound Open Upper Limb 12/25/2007 WENDI BLACK MD 682.9 CELLULITIS AND ABSCESS OF UNSPECIFIED SITES 12/25/2007 WENDI BLACK MD N 884.0 Wound Open Upper Limb 12/25/2007 TIN HEREDIA PSYD L 682.9 CELLULITIS AND ABSCESS OF UNSPECIFIED SITES 12/25/2007 TIN HEREDIA PSYD L 884.0 Wound Open Upper Limb 12/25/2007 WENDI BLACK MD N 682.9 CELLULITIS AND ABSCESS OF UNSPECIFIED SITES 12/25/2007 WENDI BLACK MD N 884.0 Wound Open Upper Limb 12/25/2007 SOFIA MD, WENDI N 682.9 CELLULITIS AND ABSCESS OF UNSPECIFIED SITES 12/25/2007 WENDI BLACK MD N 884.0 Wound Open Upper Limb 12/25/2007 CHRISTEL CLAIMS CLERK, CARLOS M 682.9 CELLULITIS AND ABSCESS OF UNSPECIFIED SITES 12/25/2007 CHRISTEL CLAIMS CLERK, CARLOS M 884.0 Wound Open Upper Limb 12/25/2007 CHRISTEL CLAIMS CLERK, CARLOS M 682.9 CELLULITIS AND ABSCESS OF UNSPECIFIED SITES 12/25/2007 CHRISTEL CLAIMS CLERK, CARLOS M 884.0 Wound Open Upper Limb 12/25/2007 CHRISTEL CLAIMS CLERK, CARLOS M 682.9 CELLULITIS AND ABSCESS OF UNSPECIFIED SITES 12/25/2007 CHRISTEL CLAIMS CLERK, CARLOS M 884.0 Wound Open Upper Limb 12/25/2007 CHRISTEL CLAIMS CLERK, CARLOS M 682.9 CELLULITIS AND ABSCESS OF UNSPECIFIED SITES 12/25/2007 CHRISTEL CLAIMS CLERK, CARLOS M 884.0 Wound Open Upper Limb 02/10/2010 Ot 724.2 05/27/2010 296.90 MO MOOD DIS NOS 05/27/2010 301.83 PD BORDERLINE 05/27/2010 296.90 MO MOOD DIS NOS 05/27/2010 301.83 PD BORDERLINE 05/27/2010 296.90 MO MOOD DIS NOS 05/27/2010 301.83 PD BORDERLINE 05/27/2010 PAIGE HECK MANAV WHITEH 296.90 MO MOOD DIS NOS 05/27/2010 PAIGE HECK MANAV WHITEH 301.83 PD BORDERLINE 05/27/2010 PAIGE HECK MANAV LONG 296.90 MO MOOD DIS NOS 05/27/2010 PAIGE HECK MANAV LONG 301.83 PD BORDERLINE 05/27/2010 296.90 MO MOOD DIS NOS 05/27/2010 301.83 PD BORDERLINE 05/27/2010 DIMPLE PEÑALOZA DO 296.90 MO MOOD DIS NOS 05/27/2010 DIMPLE PEÑALOZA DO 301.83 PD BORDERLINE 05/27/2010 296.90 MO MOOD DIS NOS 05/27/2010 301.83 PD BORDERLINE 05/27/2010 296.90 MO MOOD DIS NOS 05/27/2010 301.83 PD BORDERLINE 05/27/2010 296.90 MO MOOD DIS NOS 05/27/2010 301.83 PD BORDERLINE 05/27/2010 PEÑALOZA DO, DIMPLE K 296.90 MO MOOD DIS NOS 05/27/2010 PEÑALOZA DO, DIMPLE K 301.83 PD BORDERLINE 05/27/2010 TEOFILO FELICIANO MD 296.90 MO MOOD DIS NOS 05/27/2010 TEOFILO FELICIANO MD 301.83 PD BORDERLINE 05/27/2010 PEÑALOZA DO, DIMPLE K 296.90 MO MOOD DIS NOS 05/27/2010 PEÑALOZA DO, DIMPLE K 301.83 PD BORDERLINE 05/27/2010 GIBSON APRN, MANAV WHITEH 296.90 MO MOOD DIS NOS 05/27/2010 GIBSON PICK UP DRIVER, MANAV LONG 301.83 PD BORDERLINE 05/27/2010 RAMON PICK UP DRIVER, MAU A 296.90 MO MOOD DIS NOS 05/27/2010 RAMON APRN, MAU A 301.83 PD BORDERLINE 05/27/2010 GIBSON UMANG MANAV WHITEH 296.90 MO MOOD DIS NOS 05/27/2010 GIBSON APRN, MANAV LONG 301.83 PD BORDERLINE 05/27/2010 WENDI BLACK MD N 296.90 MO MOOD DIS NOS 05/27/2010 WENDI BLACK MD N 301.83 PD BORDERLINE 05/27/2010 WENDI BLACK MD N 296.90 MO MOOD DIS NOS 05/27/2010 WENDI BLACK MD N 301.83 PD BORDERLINE 05/27/2010 PEÑALOZA DO, DIMPLE K 296.90 MO MOOD DIS NOS 05/27/2010 PEAÑLOZA DO, DIMPLE K 301.83 PD BORDERLINE 05/27/2010 GIBSON APRN, MANAV LONG 296.90 MO MOOD DIS NOS 05/27/2010 GIBSON APRN, MANAV LONG 301.83 PD BORDERLINE 05/27/2010 PEÑALOZA DO, DIMPLE K 296.90 MO MOOD DIS NOS 05/27/2010 PEÑALOZA DO, DIMPLE K 301.83 PD BORDERLINE 05/27/2010 WEDNI BLACK MD N 296.90 MO MOOD DIS NOS 05/27/2010 WENDI BLACK MD N 301.83 PD BORDERLINE 05/27/2010 WENDI BLACK MD N 296.90 MO MOOD DIS NOS 05/27/2010 WENDI BLACK MD N 301.83 PD BORDERLINE 05/27/2010 TIN HEREDIA PSYD 296.90 MO MOOD DIS NOS 05/27/2010 TNI HEREDIA PSYD 301.83 PD BORDERLINE 05/27/2010 WENDI BLACK MD N 296.90 MO MOOD DIS NOS 05/27/2010 WENDI BLACK MD N 301.83 PD BORDERLINE 05/27/2010 WENDI BLACK MD N 296.90 MO MOOD DIS NOS 05/27/2010 WENDI BLACK MD N 301.83 PD BORDERLINE 05/27/2010 CHRISTEL CLAIMS CLERK, CARLOS M 296.90 MO MOOD DIS NOS 05/27/2010 CHRISTEL CLAIMS CLERK, CARLOS M 301.83 PD BORDERLINE 05/27/2010 CHRISTEL CLAIMS CLERK, CARLOS M 296.90 MO MOOD DIS NOS 05/27/2010 CHRISTEL CLAIMS CLERK, CARLOS M 301.83 PD BORDERLINE 05/27/2010 CHRISTEL CLAIMS CLERK, CARLOS M 296.90 MO MOOD DIS NOS 05/27/2010 CHRISTEL CLAIMS CLERK, CARLOS M 301.83 PD BORDERLINE 05/27/2010 CHRISTEL CLAIMS CLERK, CARLOS M 296.90 MO MOOD DIS NOS 05/27/2010 CHRISTEL CLAIMS CLERK, CARLOS M 301.83 PD BORDERLINE 06/17/2010 296.80 MO BIPOLAR NOS 06/17/2010 300.02 AN GEN ANXIETY 06/17/2010 296.80 MO BIPOLAR NOS 06/17/2010 300.02 AN GEN ANXIETY 06/17/2010 296.80 MO BIPOLAR NOS 06/17/2010 300.02 AN GEN ANXIETY 06/17/2010 MANAV GIBSON APRN 296.80 MO BIPOLAR NOS 06/17/2010 MANAV GIBSON APRN 300.02 AN GEN ANXIETY 06/17/2010 MANAV GIBSON APRN 296.80 MO BIPOLAR NOS 06/17/2010 MANAV GIBSON APRN 300.02 AN GEN ANXIETY 06/17/2010 296.80 MO BIPOLAR NOS 06/17/2010 300.02 AN GEN ANXIETY 06/17/2010 DIMPLE PEÑALOZA DO 296.80 MO BIPOLAR NOS 06/17/2010 DIMPLE PEÑALOZA DO 300.02 AN GEN ANXIETY 06/17/2010 296.80 MO BIPOLAR NOS 06/17/2010 300.02 AN GEN ANXIETY 06/17/2010 296.80 MO BIPOLAR NOS 06/17/2010 300.02 AN GEN ANXIETY 06/17/2010 296.80 MO BIPOLAR NOS 06/17/2010 300.02 AN GEN ANXIETY 06/17/2010 PEÑALOZA DO, DIMPLE K 296.80 MO BIPOLAR NOS 06/17/2010 PEÑALOZA DO, DIMPLE K 300.02 AN GEN ANXIETY 06/17/2010 TEOFILO FELICIANO MD 296.80 MO BIPOLAR NOS 06/17/2010 TEOFILO FELICIANO MD 300.02 AN GEN ANXIETY 06/17/2010 PEÑALOZA DO, DIMPLE K 296.80 MO BIPOLAR NOS 06/17/2010 PEÑALOZA DO, DIMPLE K 300.02 AN GEN ANXIETY 06/17/2010 GIBSON PICK UP DRIVER, MANAV ALVES 296.80 MO BIPOLAR NOS 06/17/2010 GIBSON PICK UP DRIVER, MANAV ALVES 300.02 AN GEN ANXIETY 06/17/2010 RAMON PICK UP DRIVER, MAU A 296.80 MO BIPOLAR NOS 06/17/2010 RAMON APRN, MAU A 300.02 AN GEN ANXIETY 06/17/2010 GIBSON UMANG, MANAV ALVES 296.80 MO BIPOLAR NOS 06/17/2010 GIBSON UMANG, MANAV ALVES 300.02 AN GEN ANXIETY 06/17/2010 WENDI BLACK MD 296.80 MO BIPOLAR NOS 06/17/2010 WENDI BLACK MD 300.02 AN GEN ANXIETY 06/17/2010 WENDI BLACK MD 296.80 MO BIPOLAR NOS 06/17/2010 WENDI BLACK MD 300.02 AN GEN ANXIETY 06/17/2010 PEÑALOZA DO, DIMPLE K 296.80 MO BIPOLAR NOS 06/17/2010 PEÑALOZA DO, DIMPLE K 300.02 AN GEN ANXIETY 06/17/2010 GIBSON UMANG, MANAV ALVES 296.80 MO BIPOLAR NOS 06/17/2010 GIBSON UMANG, MANAV WHITEH 300.02 AN GEN ANXIETY 06/17/2010 PEÑALOZA DO, IDMPLE K 296.80 MO BIPOLAR NOS 06/17/2010 PEÑALOZA DO, DIMPLE K 300.02 AN GEN ANXIETY 06/17/2010 WENDI BLACK MD N 296.80 MO BIPOLAR NOS 06/17/2010 WENDI BLACK MD 300.02 AN GEN ANXIETY 06/17/2010 WENDI BLACK MD N 296.80 MO BIPOLAR NOS 06/17/2010 WENDI BLACK MD N 300.02 AN GEN ANXIETY 06/17/2010 TIN HEREDIA PSYD ANN L 296.80 MO BIPOLAR NOS 06/17/2010 TIN HEREDIA PSYD L 300.02 AN GEN ANXIETY 06/17/2010 WENDI BLACK MD N 296.80 MO BIPOLAR NOS 06/17/2010 WENDI BLACK MD N 300.02 AN GEN ANXIETY 06/17/2010 WENDI BLACK MD N 296.80 MO BIPOLAR NOS 06/17/2010 WENDI BLACK MD N 300.02 AN GEN ANXIETY 06/17/2010 CHRISTEL CLAIMS CLERK, CARLOS M 296.80 MO BIPOLAR NOS 06/17/2010 CHRISTEL CLAIMS CLERK, CARLOS M 300.02 AN GEN ANXIETY 06/17/2010 CHRISTEL CLAIMS CLERK, CARLOS M 296.80 MO BIPOLAR NOS 06/17/2010 CHRISTEL CLAIMS CLERK, CARLOS M 300.02 AN GEN ANXIETY 06/17/2010 CHRISTEL CLAIMS CLERK, CARLOS M 296.80 MO BIPOLAR NOS 06/17/2010 CHRISTEL CLAIMS CLERK, CARLOS M 300.02 AN GEN ANXIETY 06/17/2010 CHRISTEL CLAIMS CLERK, CARLOS M 296.80 MO BIPOLAR NOS 06/17/2010 CHRISTEL CLAIMS CLERK, CARLOS M 300.02 AN GEN ANXIETY 10/14/2010 [...] GIBSON APRN 296.89 MO BIPOLAR II 10/14/2010 SOFIA RICE, WENDI N 296.89 MO BIPOLAR II 10/14/2010 SOFIA RICE, WENDI N 296.89 MO BIPOLAR II 10/14/2010 PEÑALOZA DIMPLE YEPEZ 296.89 MO BIPOLAR II 10/14/2010 PAIGE HECK, MANAV ALVES 296.89 MO BIPOLAR II 10/14/2010 DIMPLE PEÑALOZA DO 296.89 MO BIPOLAR II 10/14/2010 SOFIA RICE, WENDI N 296.89 MO BIPOLAR II 10/14/2010 SOFIA RICE, WENDI N 296.89 MO BIPOLAR II 10/14/2010 TIN HEREDIA PSYD 296.89 MO BIPOLAR II 10/14/2010 SOFIA RICE, WENDI N 296.89 MO BIPOLAR II 10/14/2010 SOFIA RICE, WENDI N 296.89 MO BIPOLAR II 10/14/2010 CHRISTEL CLAIMS CLERK, CARLOS M 296.89 MO BIPOLAR II 10/14/2010 CHRISTEL CLAIMS CLERK, CARLOS M 296.89 MO BIPOLAR II 10/14/2010 CHRISTEL CLAIMS CLERK, CARLOS M 296.89 MO BIPOLAR II 10/14/2010 CHRISTEL CLAIMS CLERK, CARLOS M 296.89 MO BIPOLAR II 03/22/2011 V72.31 FOREIGN CAR MECHANIC EXAM, ROUTINE 03/22/2011 V72.31 FOREIGN CAR MECHANIC EXAM, ROUTINE 03/22/2011 V72.31 FOREIGN CAR MECHANIC EXAM, ROUTINE 03/22/2011 PAIGE HECK MANAV LONG V72.31 FOREIGN CAR MECHANIC EXAM, ROUTINE 03/22/2011 PAIGE HECK MANAV LONG V72.31 FOREIGN CAR MECHANIC EXAM, ROUTINE 03/22/2011 V72.31 FOREIGN CAR MECHANIC EXAM, ROUTINE 03/22/2011 DIMPLE PEÑALOZA DO V72.31 FOREIGN CAR MECHANIC EXAM, ROUTINE 03/22/2011 V72.31 FOREIGN CAR MECHANIC EXAM, ROUTINE 03/22/2011 V72.31 FOREIGN CAR MECHANIC EXAM, ROUTINE 03/22/2011 V72.31 FOREIGN CAR MECHANIC EXAM, ROUTINE 03/22/2011 DIMPLE PEÑALOZA DO V72.31 FOREIGN CAR MECHANIC EXAM, ROUTINE 03/22/2011 TEOFILO FELICIANO MD V72.31 FOREIGN CAR MECHANIC EXAM, ROUTINE 03/22/2011 DIMPLE PEÑALOZA DO V72.31 FOREIGN CAR MECHANIC EXAM, ROUTINE 03/22/2011 MANAV GIBSON APRN V72.31 FOREIGN CAR MECHANIC EXAM, ROUTINE 03/22/2011 RAMON HECK MAU A V72.31 FOREIGN CAR MECHANIC EXAM, ROUTINE 03/22/2011 PAIGE HECK MANAV ALVES V72.31 FOREIGN CAR MECHANIC EXAM, ROUTINE 03/22/2011 SOFIA RICE, WENDI Dupont V72.31 FOREIGN CAR MECHANIC EXAM, ROUTINE 03/22/2011 SOFIA RIEC, WENDI Dupont V72.31 FOREIGN CAR MECHANIC EXAM, ROUTINE 03/22/2011 DIMPLE PEÑALOZA DO V72.31 FOREIGN CAR MECHANIC EXAM, ROUTINE 03/22/2011 PAIGE HECK MANAV LONG V72.31 FOREIGN CAR MECHANIC EXAM, ROUTINE 03/22/2011 DIMPLE PEÑALOZA DO V72.31 FOREIGN CAR MECHANIC EXAM, ROUTINE 03/22/2011 SOFIA RICE, WENDI Dupont V72.31 FOREIGN CAR MECHANIC EXAM, ROUTINE 03/22/2011 SOFIA RICE, WENDI Dupont V72.31 FOREIGN CAR MECHANIC EXAM, ROUTINE 03/22/2011 TIN HEREDIA PSYD V72.31 FOREIGN CAR MECHANIC EXAM, ROUTINE 03/22/2011 SOFIA RICE, WENDI Dupont V72.31 FOREIGN CAR MECHANIC EXAM, ROUTINE 03/22/2011 SOFIA RICE, WENDI Dupont V72.31 FOREIGN CAR MECHANIC EXAM, ROUTINE 03/22/2011 CHRISTEL CLAIMS CLERK, CARLOS M V72.31 FOREIGN CAR MECHANIC EXAM, ROUTINE 03/22/2011 CHRISTEL CLAIMS CLERK, CARLOS M V72.31 FOREIGN CAR MECHANIC EXAM, ROUTINE 03/22/2011 CHRISTEL CLAIMS CLERK, CARLOS M V72.31 FOREIGN CAR MECHANIC EXAM, ROUTINE 03/22/2011 CHRISTEL CLAIMS CLERK, CARLOS M V72.31 FOREIGN CAR MECHANIC EXAM, ROUTINE 05/26/2011 465.9 UPPER RESPIRATORY INFECTION 05/26/2011 465.9 UPPER RESPIRATORY INFECTION 05/26/2011 465.9 UPPER RESPIRATORY INFECTION 05/26/2011 PAIGE HECK MANAV ALVES 465.9 UPPER RESPIRATORY INFECTION 05/26/2011 PAIGE HECK, MANAV ALVES 465.9 UPPER RESPIRATORY INFECTION 05/26/2011 465.9 UPPER RESPIRATORY INFECTION 05/26/2011 DIMPLE PEÑALOZA DO 465.9 UPPER RESPIRATORY INFECTION 05/26/2011 465.9 UPPER RESPIRATORY INFECTION 05/26/2011 465.9 UPPER RESPIRATORY INFECTION 05/26/2011 465.9 UPPER RESPIRATORY INFECTION 05/26/2011 DIMPLE PEÑALOZA DO 465.9 UPPER RESPIRATORY INFECTION 05/26/2011 BRADEN MD, TEOFILO M 465.9 UPPER RESPIRATORY INFECTION 05/26/2011 PEÑALOZA DO, DIMPLE K 465.9 UPPER RESPIRATORY INFECTION 05/26/2011 GIBSONERIN HECK MANAV WHITEH 465.9 UPPER RESPIRATORY INFECTION 05/26/2011 MAU NAVARRO APRN 465.9 UPPER RESPIRATORY INFECTION 05/26/2011 PAIGE HECK MANAV ALVES 465.9 UPPER RESPIRATORY INFECTION 05/26/2011 WENDI BLACK MD N 465.9 UPPER RESPIRATORY INFECTION 05/26/2011 SOFIA RICE, WENDI N 465.9 UPPER RESPIRATORY INFECTION 05/26/2011 PEÑALOZA DO, DIMPLE K 465.9 UPPER RESPIRATORY INFECTION 05/26/2011 GIBSONERIN HECK MANAV ALVES 465.9 UPPER RESPIRATORY INFECTION 05/26/2011 PEÑALOZA , DIMPLE K 465.9 UPPER RESPIRATORY INFECTION 05/26/2011 SOFIA RICE, WENDI N 465.9 UPPER RESPIRATORY INFECTION 05/26/2011 SOFIA RICE, WENDI N 465.9 UPPER RESPIRATORY INFECTION 05/26/2011 TIN HEREDIA PSYD 465.9 UPPER RESPIRATORY INFECTION 05/26/2011 SOFIA RICE, WENDI N 465.9 UPPER RESPIRATORY INFECTION 05/26/2011 SOFIA RICE, WENDI N 465.9 UPPER RESPIRATORY INFECTION 05/26/2011 CHRISTEL SALAZAR, CARLOS M 465.9 UPPER RESPIRATORY INFECTION 05/26/2011 CHRISTEL SALAZAR, CARLOS M 465.9 UPPER RESPIRATORY INFECTION 05/26/2011 CHRISTEL CLAIMS CLERK, CARLOS M 465.9 UPPER RESPIRATORY INFECTION 05/26/2011 CHRISTEL CLAIMS CLERK, CARLOS M 465.9 UPPER RESPIRATORY INFECTION 07/14/2011 [...] ESSENTIAL 07/14/2011 PAIGE HECK MANAV LONG 783.5 POLYDIPSIA 07/14/2011 PAIGE FARRELLCresencio MANAV ALVES V18.0 FAMILY HISTORY OF DIABETES MELLITUS 07/14/2011 PAIGE FARRELLCresencio MANAV ALVES 401.1 HYPERTENSION, BENIGN ESSENTIAL 07/14/2011 PAIGE FARRELLCresencio MANAV ALVES 783.5 POLYDIPSIA 07/14/2011 PAIGE FARRELLCresencio MANAV ALVES V18.0 FAMILY HISTORY OF DIABETES MELLITUS 07/14/2011 401.1 HYPERTENSION, BENIGN ESSENTIAL 07/14/2011 783.5 Polydipsia 07/14/2011 V18.0 FAMILY HISTORY OF DIABETES MELLITUS 07/14/2011 DIMPLE PEÑALOZA DO 401.1 HYPERTENSION, BENIGN ESSENTIAL 07/14/2011 DIMPLE PEÑALOZA DO 783.5 Polydipsia 07/14/2011 DIMPLE PEÑALOZA DO V18.0 FAMILY HISTORY OF DIABETES MELLITUS 07/14/2011 [...] V18.0 FAMILY HISTORY OF DIABETES MELLITUS 07/14/2011 PAIGE HECK MANAV ALVES 401.1 HYPERTENSION, BENIGN ESSENTIAL 07/14/2011 GIBSON MANAV HECK 783.5 Polydipsia 07/14/2011 MANAV GIBSON APRN V18.0 FAMILY HISTORY OF DIABETES MELLITUS 07/14/2011 MAU NAVARRO APRN A 401.1 HYPERTENSION, BENIGN ESSENTIAL 07/14/2011 MAU NAVARRO APRN A 783.5 Polydipsia 07/14/2011 MAU NAVARRO APRN A V18.0 FAMILY HISTORY OF DIABETES MELLITUS 07/14/2011 PAIGE HECK MANAV ALVES 401.1 HYPERTENSION, BENIGN ESSENTIAL 07/14/2011 MANAV GIBSON APRN 783.5 Polydipsia 07/14/2011 MANAV GIBSON APRN V18.0 FAMILY HISTORY [...] V18.0 FAMILY HISTORY OF DIABETES MELLITUS 07/14/2011 PAIGE FARRELLCresencio MANAV ALVES 401.1 HYPERTENSION, BENIGN ESSENTIAL 07/14/2011 PAIGE HECK MANAV ALVES 783.5 Polydipsia 07/14/2011 PAIGE FARRELLCresencio MANAV ALVES V18.0 FAMILY HISTORY OF DIABETES MELLITUS 07/14/2011 AQUILES PEÑALOZA DOA K 401.1 HYPERTENSION, BENIGN ESSENTIAL 07/14/2011 PEÑALOZA DO DIMPLE K 783.5 Polydipsia 07/14/2011 PEÑALOZA DO DIMPLE K V18.0 FAMILY HISTORY OF DIABETES MELLITUS 07/14/2011 WENDI BLACK MD 401.1 HYPERTENSION, BENIGN ESSENTIAL 07/14/2011 WENDI BLACK MD 783.5 Polydipsia 07/14/2011 WENDI BLACK MD N V18.0 FAMILY HISTORY OF DIABETES MELLITUS 07/14/2011 WENDI BLACK MD 401.1 HYPERTENSION, BENIGN ESSENTIAL 07/14/2011 WENDI BLACK MD N 783.5 Polydipsia 07/14/2011 WENDI BLACK MD N V18.0 FAMILY HISTORY OF DIABETES MELLITUS 07/14/2011 TIN HEREDIA PSYD ANN L 401.1 HYPERTENSION, BENIGN ESSENTIAL 07/14/2011 YAN ROACH JOS ELUIS L 783.5 Polydipsia 07/14/2011 TIN HEREDIA PSYD ANN L V18.0 FAMILY HISTORY OF DIABETES MELLITUS 07/14/2011 WENDI BLACK MD 401.1 HYPERTENSION, BENIGN ESSENTIAL 07/14/2011 WENDI BLACK MD N 783.5 Polydipsia 07/14/2011 EWNDI BLACK MD N V18.0 FAMILY HISTORY OF DIABETES MELLITUS 07/14/2011 WENDI BLACK MD 401.1 HYPERTENSION, BENIGN ESSENTIAL 07/14/2011 WENDI BLACK MD N 783.5 Polydipsia 07/14/2011 WENDI BLACK MD N V18.0 FAMILY HISTORY OF DIABETES MELLITUS 07/14/2011 CHRISTEL CLAIMS CLERK, CARLOS M 401.1 HYPERTENSION, BENIGN ESSENTIAL 07/14/2011 CHRISTEL CLAIMS CLERK, CARLOS M 783.5 Polydipsia 07/14/2011 CHRISTEL CLAIMS CLERK, CARLOS M V18.0 FAMILY HISTORY OF DIABETES MELLITUS 07/14/2011 CHRISTEL CLAIMS CLERK, CARLOS M 401.1 HYPERTENSION, BENIGN ESSENTIAL 07/14/2011 CHRISTEL CLAIMS CLERK, CARLOS M 783.5 Polydipsia 07/14/2011 CHRISTEL CLAIMS CLERK, CARLOS M V18.0 FAMILY HISTORY OF DIABETES MELLITUS 07/14/2011 CHRISTEL CLAIMS CLERK, CARLOS M 401.1 HYPERTENSION, BENIGN ESSENTIAL 07/14/2011 CHRISTEL CLAIMS CLERK, CARLOS M 783.5 Polydipsia 07/14/2011 CHRISTEL CLAIMS CLERK, CARLOS M V18.0 FAMILY HISTORY OF DIABETES MELLITUS 07/14/2011 CHRISTEL CLAIMS CLERK, CARLOS M 401.1 HYPERTENSION, BENIGN ESSENTIAL 07/14/2011 CHRISTEL CLAIMS CLERK, CARLOS M 783.5 Polydipsia 07/14/2011 CARLOS AHUJA V18.0 FAMILY HISTORY OF DIABETES MELLITUS 07/16/2011 272.4 HYPERLIPIDEMIA 07/16/2011 272.4 HYPERLIPIDEMIA 07/16/2011 272.4 HYPERLIPIDEMIA 07/16/2011 PAIGE HECK, MANAV ALVES 272.4 HYPERLIPIDEMIA 07/16/2011 GIBSONERIN FARRELLN, MANAV ALVES 272.4 HYPERLIPIDEMIA 07/16/2011 272.4 HYPERLIPIDEMIA 07/16/2011 PEÑALOZA DIMPLE K 272.4 HYPERLIPIDEMIA 07/16/2011 272.4 HYPERLIPIDEMIA 07/16/2011 272.4 HYPERLIPIDEMIA 07/16/2011 272.4 HYPERLIPIDEMIA 07/16/2011 PEÑALOZA DO, DIMPLE K 272.4 HYPERLIPIDEMIA 07/16/2011 TEOFILO FELICIANO MD 272.4 HYPERLIPIDEMIA 07/16/2011 PEÑALOZA DIMPLE K 272.4 HYPERLIPIDEMIA 07/16/2011 GIBSON PICK UP DRIVER, MANAV ALVES 272.4 HYPERLIPIDEMIA 07/16/2011 RAMONMARGARETH HECK, MAU A 272.4 HYPERLIPIDEMIA 07/16/2011 GIBSONERIN HECK, MANAV ALVES 272.4 HYPERLIPIDEMIA 07/16/2011 SOFIA RICE, WENDI N 272.4 HYPERLIPIDEMIA 07/16/2011 SOFIA RICE, WENDI N 272.4 HYPERLIPIDEMIA 07/16/2011 PEÑALOZA DO DIMPLE K 272.4 HYPERLIPIDEMIA 07/16/2011 PAIGE HECK MANAV ALVES 272.4 HYPERLIPIDEMIA 07/16/2011 PEÑALOZA , DIMPLE K 272.4 HYPERLIPIDEMIA 07/16/2011 SOFIA RICE, WENDI N 272.4 HYPERLIPIDEMIA 07/16/2011 WENDI BLACK MD N 272.4 HYPERLIPIDEMIA 07/16/2011 TIN HEREDIA PSYD 272.4 HYPERLIPIDEMIA 07/16/2011 SOFIA RICE, WENDI N 272.4 HYPERLIPIDEMIA 07/16/2011 SOFIA RICE, WENDI N 272.4 HYPERLIPIDEMIA 07/16/2011 CARLOS AHUJA M 272.4 HYPERLIPIDEMIA 07/16/2011 CARLOS AHUJA M 272.4 HYPERLIPIDEMIA 07/16/2011 CARLOS AHUJA M 272.4 HYPERLIPIDEMIA 07/16/2011 CARLOS AHUJA M 272.4 HYPERLIPIDEMIA 11/15/2011 054.10 GENITAL HERPES UNSPECIFIED 11/15/2011 054.10 GENITAL HERPES UNSPECIFIED 11/15/2011 054.10 GENITAL HERPES UNSPECIFIED 11/15/2011 GIBSON PICK UP DRIVER MANAV ALVES 054.10 GENITAL HERPES UNSPECIFIED 11/15/2011 GIBSON PICK UP DRIVER, MANAV ALVES 054.10 GENITAL HERPES UNSPECIFIED 11/15/2011 054.10 GENITAL HERPES UNSPECIFIED 11/15/2011 DIMPLE PEÑALOZA DO K 054.10 GENITAL HERPES UNSPECIFIED 11/15/2011 054.10 GENITAL HERPES UNSPECIFIED 11/15/2011 054.10 GENITAL HERPES UNSPECIFIED 11/15/2011 054.10 GENITAL HERPES UNSPECIFIED 11/15/2011 DIMPLE PEÑALOZA DO K 054.10 GENITAL HERPES UNSPECIFIED 11/15/2011 BRADEN RICE, TEOFILO Deras 054.10 GENITAL HERPES UNSPECIFIED 11/15/2011 DIMPLE PEÑALOZA DO K 054.10 GENITAL HERPES UNSPECIFIED 11/15/2011 PAIGE FARRELLCresencio MANAV ALVES 054.10 GENITAL HERPES UNSPECIFIED 11/15/2011 MAU NAVARRO APRN 054.10 GENITAL HERPES UNSPECIFIED 11/15/2011 GIBSON PICK UP DRIVER, MANAV ALVES 054.10 GENITAL HERPES UNSPECIFIED 11/15/2011 WENDI BLACK MD N 054.10 GENITAL HERPES UNSPECIFIED 11/15/2011 WENDI BLACK MD N 054.10 GENITAL HERPES UNSPECIFIED 11/15/2011 AQUILES PEÑALOZA DOA K 054.10 GENITAL HERPES UNSPECIFIED 11/15/2011 GIBSON UMANG MANAV ALVES 054.10 GENITAL HERPES UNSPECIFIED 11/15/2011 JH YEPEZ DIMPLE K 054.10 GENITAL HERPES UNSPECIFIED 11/15/2011 WENDI BLACK MD N 054.10 GENITAL HERPES UNSPECIFIED 11/15/2011 WENDI BLACK MD N 054.10 GENITAL HERPES UNSPECIFIED 11/15/2011 TIN HEREDIA PSYD 054.10 GENITAL HERPES UNSPECIFIED 11/15/2011 WENDI BLACK MD N 054.10 GENITAL HERPES UNSPECIFIED 11/15/2011 WENDI BLACK MD N 054.10 GENITAL HERPES UNSPECIFIED 11/15/2011 CARLOS AHUJA 054.10 GENITAL HERPES UNSPECIFIED 11/15/2011 CARLOS AHUJA 054.10 GENITAL HERPES UNSPECIFIED 11/15/2011 CARLOS AHUJA 054.10 GENITAL HERPES UNSPECIFIED 11/15/2011 CHRISTEL SALAZARCARLOS M 054.10 GENITAL HERPES UNSPECIFIED 03/27/2012 786.05 SHORTNESS OF BREATH 03/27/2012 786.50 CHEST PAIN 03/27/2012 787.02 NAUSEA ALONE 03/27/2012 786.05 SHORTNESS OF BREATH 03/27/2012 786.50 CHEST PAIN 03/27/2012 787.02 NAUSEA ALONE 03/27/2012 786.05 SHORTNESS OF BREATH 03/27/2012 786.50 CHEST PAIN 03/27/2012 787.02 NAUSEA ALONE 03/27/2012 PAIGE FARRELLN, MANAV ALVES 786.05 SHORTNESS OF BREATH 03/27/2012 GIBSON PICK UP DRIVER, MANAV ALVES 786.50 CHEST PAIN 03/27/2012 PAIGE FARRELLN, MANAV ALVES 787.02 NAUSEA ALONE 03/27/2012 GIBSON PICK UP DRIVER, MANAV ALVES 786.05 SHORTNESS OF BREATH 03/27/2012 GIBSON PICK UP DRIVER, MANAV ALVES 786.50 CHEST PAIN 03/27/2012 GIBSON PICK UP DRIVER, MANAV ALVES 787.02 NAUSEA ALONE 03/27/2012 786.05 Shortness Of Breath 03/27/2012 786.50 Chest Pain 03/27/2012 787.02 Nausea Alone 03/27/2012 JH YEPEZ DIMPLE K 786.05 Shortness Of Breath 03/27/2012 PEÑALOZA DO DIMPLE K 786.50 Chest Pain 03/27/2012 PEÑALOZA DO DIMPLE K 787.02 Nausea Alone 03/27/2012 786.05 Shortness Of Breath 03/27/2012 786.50 Chest Pain 03/27/2012 787.02 Nausea Alone 03/27/2012 786.05 Shortness Of Breath 03/27/2012 786.50 Chest Pain 03/27/2012 787.02 Nausea Alone 03/27/2012 786.05 Shortness Of Breath 03/27/2012 786.50 Chest Pain 03/27/2012 787.02 Nausea Alone 03/27/2012 PEÑALOZA DO DIMPLE K 786.05 SHORTNESS OF BREATH 03/27/2012 PEÑALOZA DO DIMPLE K 786.50 CHEST PAIN 03/27/2012 PEÑALOZA DO DIMPLE K 787.02 NAUSEA ALONE 03/27/2012 TEOFILO FELICIANO MD 786.05 Shortness Of Breath 03/27/2012 TEOFILO FELICIANO MD 786.50 Chest Pain 03/27/2012 TEOFILO FELICIANO MD 787.02 Nausea Alone 03/27/2012 PEÑALOZA DO, DIMPLE K 786.05 Shortness Of Breath 03/27/2012 PEÑALOZA DO, DIMPLE K 786.50 Chest Pain 03/27/2012 PEÑALOZA DO, DIMPLE K 787.02 Nausea Alone 03/27/2012 GIBSON PICK UP DRIVERMANAVH 786.05 Shortness Of Breath 03/27/2012 GIBSON PICK UP DRIVER, MANAV WHITEH 786.50 Chest Pain 03/27/2012 GIBSON PICK UP DRIVERMANAVH 787.02 Nausea Alone 03/27/2012 RAMON PICK UP DRIVER, MAU A 786.05 Shortness Of Breath 03/27/2012 RAMON PICK UP DRIVER, MAU A 786.50 Chest Pain 03/27/2012 RAMON PICK UP DRIVER, MAU A 787.02 Nausea Alone 03/27/2012 GIBSON PICK UP DRIVER MANAV WHITEH 786.05 Shortness Of Breath 03/27/2012 GIBSON PICK UP DRIVER MANAV WHITEH 786.50 Chest Pain 03/27/2012 GIBSON PICK UP DRIVERMANAVH 787.02 Nausea Alone 03/27/2012 WENDI BLACK MD N 786.05 Shortness Of Breath 03/27/2012 WENDI BLACK MD 786.50 Chest Pain 03/27/2012 WENDI BLACK MD N 787.02 Nausea Alone 03/27/2012 WENDI BLACK MD N 786.05 Shortness Of Breath 03/27/2012 WENDI BLACK MD 786.50 Chest Pain 03/27/2012 WENDI BLACK MD N 787.02 Nausea Alone 03/27/2012 PEÑALOZA DO, DIMPLE K 786.05 Shortness Of Breath 03/27/2012 PEÑALOZA DO, DIMPLE K 786.50 Chest Pain 03/27/2012 PEÑALOZA DO, DIMPLE K 787.02 Nausea Alone 03/27/2012 GIBSON PICK UP DRIVERMANAVH 786.05 Shortness Of Breath 03/27/2012 GIBSON PICK UP DRIVER, MANAV WHITEH 786.50 Chest Pain 03/27/2012 GIBSON PICK UP DRIVER MANAV WHITEH 787.02 Nausea Alone 03/27/2012 PEÑALOZA [...] 787.02 Nausea Alone 03/27/2012 TIN HEREDIA PSYD L 786.05 Shortness Of Breath 03/27/2012 TIN HEREDIA PSYD L 786.50 Chest Pain 03/27/2012 TIN HEREDIA PSYD L 787.02 Nausea Alone 03/27/2012 WENDI BLACK MD N 786.05 Shortness Of Breath 03/27/2012 WENDI BLACK MD N 786.50 Chest Pain 03/27/2012 WENDI BLACK MD N 787.02 Nausea Alone 03/27/2012 WENDI BLACK MD N 786.05 Shortness Of Breath 03/27/2012 WENDI BLACK MD N 786.50 Chest Pain 03/27/2012 WENDI BLACK MD N 787.02 Nausea Alone 03/27/2012 CARLOS AHUJA M 786.05 Shortness Of Breath 03/27/2012 CARLOS AHUJA M 786.50 Chest Pain 03/27/2012 CARLOS AHUJA M 787.02 Nausea Alone 03/27/2012 CARLOS AHUJA M 786.05 Shortness Of Breath 03/27/2012 CARLOS AHUJA M 786.50 Chest Pain 03/27/2012 CARLOS AHUJA M 787.02 Nausea Alone 03/27/2012 CARLOS AHUJA M 786.05 Shortness Of Breath 03/27/2012 CARLOS AHUJA M 786.50 Chest Pain 03/27/2012 CARLOS AHUJA M 787.02 Nausea Alone 03/27/2012 CARLOS AHUJA 786.05 Shortness Of Breath 03/27/2012 CARLOS AHUJA 786.50 Chest Pain 03/27/2012 CARLOS AHUJA 787.02 Nausea Alone 06/21/2012 PAIGE HECK MANAV ALVES 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 06/21/2012 APIGE HECK MANAV ALVES 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 06/21/2012 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 06/21/2012 DIMPLE PEÑALOZA DO 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 06/21/2012 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 06/21/2012 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 06/21/2012 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 06/21/2012 TEOFILO FELICIANO MD 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 06/21/2012 WENDI [...] CARLOS AHUJA 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 08/24/2012 214.1 LIPOMA OF OTHER SKIN AND SUBCUTANEOUS TISSUE 08/24/2012 DIMPLE PEÑALOZA DO 214.1 LIPOMA OF OTHER SKIN AND SUBCUTANEOUS TISSUE 08/24/2012 214.1 LIPOMA OF OTHER SKIN AND SUBCUTANEOUS TISSUE 08/24/2012 214.1 LIPOMA OF OTHER SKIN AND SUBCUTANEOUS TISSUE 08/24/2012 214.1 LIPOMA OF OTHER SKIN AND SUBCUTANEOUS TISSUE 08/24/2012 TEOFILO FLEICIANO MD 214.1 LIPOMA OF OTHER SKIN AND SUBCUTANEOUS TISSUE 08/24/2012 DIMPLE PEÑALOZA DO 214.1 LIPOMA OF OTHER SKIN AND SUBCUTANEOUS TISSUE 08/24/2012 MANAV GIBSON APRN 214.1 LIPOMA OF OTHER SKIN AND SUBCUTANEOUS TISSUE 08/24/2012 MAU NAVARRO APRN 214.1 LIPOMA OF OTHER SKIN AND [...] SKIN AND SUBCUTANEOUS TISSUE 08/24/2012 CARLOS AHUJA M 214.1 LIPOMA OF OTHER SKIN AND SUBCUTANEOUS TISSUE 09/04/2012 DIMPLE PEÑALOZA DO K 466.0 BRONCHITIS, ACUTE 09/04/2012 466.0 BRONCHITIS, ACUTE 09/04/2012 466.0 BRONCHITIS, ACUTE 09/04/2012 466.0 BRONCHITIS, ACUTE 09/04/2012 TEOFILO FELICIANO MD 466.0 BRONCHITIS, ACUTE 09/04/2012 DIMPLE PEÑALOZA DO K 466.0 BRONCHITIS, ACUTE 09/04/2012 MANAV GIBSON APRN 466.0 BRONCHITIS, ACUTE 09/04/2012 MAU NAVARRO APRN 466.0 BRONCHITIS, ACUTE 09/04/2012 MANAV GIBSON APRN 466.0 BRONCHITIS, ACUTE 09/04/2012 WENDI BLACK MD N 466.0 BRONCHITIS, ACUTE 09/04/2012 WENDI BLACK MD N 466.0 BRONCHITIS, ACUTE 09/04/2012 DIMPLE PEÑALOZA DO K 466.0 BRONCHITIS, ACUTE 09/04/2012 MANAV GIBSON APRN 466.0 BRONCHITIS, ACUTE 09/04/2012 DIMPLE PEÑALOZA DO K 466.0 BRONCHITIS, ACUTE 09/04/2012 WENDI BLACK MD N 466.0 BRONCHITIS, ACUTE 09/04/2012 WENDI BLACK MD N 466.0 BRONCHITIS, ACUTE 09/04/2012 TIN HEREDIA PSYD 466.0 BRONCHITIS, ACUTE 09/04/2012 WENDI BLACK MD N 466.0 BRONCHITIS, ACUTE 09/04/2012 WENDI BLACK MD N 466.0 BRONCHITIS, ACUTE 09/04/2012 CARLOS AHUJA 466.0 BRONCHITIS, ACUTE 09/04/2012 CARLOS AHUJA 466.0 BRONCHITIS, ACUTE 09/04/2012 CARLOS AHUJA M 466.0 BRONCHITIS, ACUTE 09/04/2012 CARLOS AHUJA 466.0 BRONCHITIS, ACUTE 10/30/2012 782.3 EDEMA 10/30/2012 782.3 EDEMA 10/30/2012 BRADEN RICE, TEOFILO Deras 782.3 EDEMA 10/30/2012 DIMPLE PEÑALOZA DO K 782.3 EDEMA 10/30/2012 PAIGE HECK MANAV LONG 782.3 EDEMA 10/30/2012 MAU NAVARRO APRN A 782.3 EDEMA 10/30/2012 PAIGE HECK, MANAV LONG 782.3 EDEMA 10/30/2012 SOFIA RICE, WENDI N 782.3 EDEMA 10/30/2012 SOFIA RICE, WENDI N 782.3 EDEMA 10/30/2012 PEÑALOZA , DIMPLE K 782.3 EDEMA 10/30/2012 PAIGE HECK MANAV LONG 782.3 EDEMA 10/30/2012 PEÑALOZA AQUILES YEPEZA K 782.3 EDEMA 10/30/2012 SOFIA RICE, WENDI N 782.3 EDEMA 10/30/2012 SOFIA RICE, WENDI N 782.3 EDEMA 10/30/2012 TIN HEREDIA PSYD 782.3 EDEMA 10/30/2012 SOFIA RICE, WENDI N 782.3 EDEMA 10/30/2012 SOFIA RICE, WENDI N 782.3 EDEMA 10/30/2012 CHRISTEL CLAIMS CLERK, CARLOS M 782.3 EDEMA 10/30/2012 CHRISTEL CLAIMS CLERK, CARLOS M 782.3 EDEMA 10/30/2012 CHRISTEL CLAIMS CLERK, CARLOS M 782.3 EDEMA 10/30/2012 CHRISTEL CLAIMS CLERK, CARLOS M 782.3 EDEMA 11/07/2012 008.8 GASTROENTERITIS, VIRAL 11/07/2012 TEOFILO FELICIANO MD 008.8 GASTROENTERITIS, VIRAL 11/07/2012 DIMPLE PEÑALOZA DO 008.8 GASTROENTERITIS, VIRAL 11/07/2012 PAIGE HECK MANAV LONG 008.8 GASTROENTERITIS, VIRAL 11/07/2012 MAU NAVARRO APRN 008.8 GASTROENTERITIS, VIRAL 11/07/2012 PAIGE HECK MANAV LONG 008.8 GASTROENTERITIS, VIRAL 11/07/2012 WENDI BLACK MD N 008.8 GASTROENTERITIS, VIRAL 11/07/2012 WENDI BLACK MD 008.8 GASTROENTERITIS, VIRAL 11/07/2012 DIMPLE PEÑALOZA DO 008.8 GASTROENTERITIS, VIRAL 11/07/2012 PAIGE HECK MANAV WHITEH 008.8 GASTROENTERITIS, VIRAL 11/07/2012 DIMPLE PEÑALOZA DO 008.8 GASTROENTERITIS, VIRAL 11/07/2012 WENDI BLACK MD N 008.8 GASTROENTERITIS, VIRAL 11/07/2012 WENDI BLACK MD N 008.8 GASTROENTERITIS, VIRAL 11/07/2012 TIN HEREDIA PSYD 008.8 GASTROENTERITIS, VIRAL 11/07/2012 WENDI BLACK MD 008.8 GASTROENTERITIS, VIRAL 11/07/2012 WENDI BLACK MD N 008.8 GASTROENTERITIS, VIRAL 11/07/2012 CHRISTEL CLAIMS CLERK, CARLOS M 008.8 GASTROENTERITIS, VIRAL 11/07/2012 CHRISTEL CLAIMS CLERK, CARLOS M 008.8 GASTROENTERITIS, VIRAL 11/07/2012 CHRISTEL CLAIMS CLERK, CARLOS M 008.8 GASTROENTERITIS, VIRAL 11/07/2012 CHRISTEL CLAIMS CLERK, CARLOS M 008.8 GASTROENTERITIS, VIRAL 03/08/2013 TEOFILO FELICIANO MD 728.87 MUSCLE WEAKNESS (GENERALIZED) 03/08/2013 DIMPLE PEÑALOZA DO 728.87 MUSCLE WEAKNESS (GENERALIZED) 03/08/2013 PAIGE HECK MANAV LONG 728.87 MUSCLE WEAKNESS (GENERALIZED) 03/08/2013 MAU NAVARRO APRN 728.87 MUSCLE WEAKNESS (GENERALIZED) 03/08/2013 PAIGE HECK MANAV LONG 728.87 MUSCLE WEAKNESS (GENERALIZED) 03/08/2013 WENDI BLACK MD 728.87 MUSCLE WEAKNESS (GENERALIZED) 03/08/2013 WENDI BLACK MD 728.87 MUSCLE WEAKNESS (GENERALIZED) 03/08/2013 DIMPLE PEÑALOZA DO 728.87 MUSCLE WEAKNESS (GENERALIZED) 03/08/2013 PAIGE HECK MANAV LONG 728.87 MUSCLE WEAKNESS (GENERALIZED) 03/08/2013 DIMPLE PEÑALOZA DO 728.87 MUSCLE WEAKNESS (GENERALIZED) 03/08/2013 WENDI BLACK MD 728.87 MUSCLE WEAKNESS (GENERALIZED) 03/08/2013 WENDI BLACK MD 728.87 MUSCLE WEAKNESS (GENERALIZED) 03/08/2013 TIN HEREDIA PSYD 728.87 MUSCLE WEAKNESS (GENERALIZED) 03/08/2013 WENDI BLACK MD 728.87 MUSCLE WEAKNESS (GENERALIZED) 03/08/2013 WENDI BLACK MD 728.87 MUSCLE WEAKNESS (GENERALIZED) 03/08/2013 CARLOS AHUJA 728.87 MUSCLE WEAKNESS (GENERALIZED) 03/08/2013 CARLOS AHUJA M 728.87 MUSCLE WEAKNESS (GENERALIZED) 03/08/2013 CARLOS AHUJA M 728.87 MUSCLE WEAKNESS (GENERALIZED) 03/08/2013 CARLOS AHUJA 728.87 MUSCLE WEAKNESS (GENERALIZED) 04/26/2013 AQUILES PEÑALOZA DOA K 599.0 URINARY TRACT INFECTION 04/26/2013 PAIGE HECK MANAV WHITEH 599.0 URINARY TRACT INFECTION 04/26/2013 MAU NAVARRO APRN 599.0 URINARY TRACT INFECTION 04/26/2013 PAIGE HECK MANAV ALVES 599.0 URINARY TRACT INFECTION 04/26/2013 WENDI BLACK MD N 599.0 URINARY TRACT INFECTION 04/26/2013 WENDI BLACK MD N 599.0 URINARY TRACT INFECTION 04/26/2013 DIMPLE PEÑALOZA DO K 599.0 URINARY TRACT INFECTION 04/26/2013 PAIGE HECK MANAV ALVES 599.0 URINARY TRACT INFECTION 04/26/2013 PEÑALOZA AQUILES YEPEZA K 599.0 URINARY TRACT INFECTION 04/26/2013 WENDI [...] CARLOS AHUJA M 599.0 URINARY TRACT INFECTION 09/27/2013 MAU NAVARRO APRN 388.70 OTALGIA UNSPECIFIED 09/27/2013 RAMON UMANG, MAU A 786.2 COUGH 09/27/2013 PAIGE HECK [...] AHUJA 388.70 OTALGIA UNSPECIFIED 09/27/2013 CARLOS AHUJA 786.2 COUGH 09/27/2013 CARLOS AHUJA 388.70 OTALGIA UNSPECIFIED 09/27/2013 CARLOS AHUJA 786.2 COUGH 09/27/2013 CARLOS AHUJA M 388.70 OTALGIA UNSPECIFIED 09/27/2013 CARLOS AHUJA M 786.2 COUGH 09/27/2013 CARLOS AHUJA M 388.70 OTALGIA UNSPECIFIED 09/27/2013 CARLOS AHUJA 786.2 COUGH 10/02/2013 MAU NAVARRO APRN A V65.42 COUNSELING - SMOKING CESSATION 10/02/2013 RAMON HECK MAU A V74.5 STD SCREEN 10/02/2013 RAMONMARGARETH HECK MAU A V76.10 BREAST CANCER SCREENING 10/02/2013 MANAV GIBSON APRN V65.42 COUNSELING - SMOKING CESSATION 10/02/2013 MANAV GIBSON APRN V74.5 STD SCREEN 10/02/2013 MANAV GIBSON APRN V76.10 BREAST CANCER SCREENING 10/02/2013 WENDI BLACK MD V65.42 COUNSELING - SMOKING CESSATION 10/02/2013 WENDI BLACK MD V74.5 STD SCREEN 10/02/2013 WENDI BLACK MD V76.10 BREAST CANCER SCREENING 10/02/2013 WENDI BLACK MD V65.42 COUNSELING - SMOKING CESSATION 10/02/2013 WENDI BLACK MD V74.5 STD SCREEN 10/02/2013 WENDI BLACK MD V76.10 BREAST CANCER SCREENING 10/02/2013 DIMPLE PEÑALOZA DO V65.42 COUNSELING - SMOKING CESSATION 10/02/2013 AQUILES PEÑALOZA DOA K V74.5 STD SCREEN 10/02/2013 JH YEPEZ DIMPLE K V76.10 BREAST CANCER SCREENING 10/02/2013 MANAV GIBSON APRN V65.42 COUNSELING - SMOKING CESSATION 10/02/2013 MANAV GIBSON APRN V74.5 STD SCREEN 10/02/2013 MANAV GIBSON APRN V76.10 BREAST CANCER SCREENING 10/02/2013 AQUILES PEÑALOZA DOA K V65.42 COUNSELING - SMOKING CESSATION 10/02/2013 JH YEPEZ DIMPLE K V74.5 STD SCREEN 10/02/2013 AQUILES PEÑALOZA DOA K V76.10 BREAST CANCER SCREENING 10/02/2013 WENDI BLACK MD N V65.42 COUNSELING - SMOKING CESSATION 10/02/2013 WENDI BLACK MD N V74.5 STD SCREEN 10/02/2013 WENDI BLACK MD N V76.10 BREAST CANCER SCREENING 10/02/2013 WENDI BLACK MD V65.42 COUNSELING - SMOKING CESSATION 10/02/2013 WENDI BLACK MD N V74.5 STD SCREEN 10/02/2013 WENDI BLACK MD N V76.10 BREAST CANCER SCREENING 10/02/2013 TIN HEREDIA PSYD V65.42 COUNSELING - SMOKING CESSATION 10/02/2013 TIN HEREDIA PSYD V74.5 STD SCREEN 10/02/2013 TIN HEREDIA PSYD L V76.10 BREAST CANCER SCREENING 10/02/2013 WENDI BLACK MD V65.42 COUNSELING - SMOKING CESSATION 10/02/2013 WENDI BLACK MD V74.5 STD SCREEN 10/02/2013 WENDI BLACK MD V76.10 BREAST CANCER SCREENING 10/02/2013 WENDI BLACK MD V65.42 COUNSELING - SMOKING CESSATION 10/02/2013 WENDI BLACK MD V74.5 STD SCREEN 10/02/2013 WENDI BLACK MD V76.10 BREAST CANCER SCREENING 10/02/2013 CARLOS AHUJA M V65.42 COUNSELING - SMOKING CESSATION 10/02/2013 ALBERTO AHUJAISTIN M V74.5 STD SCREEN 10/02/2013 CHRISTEL SALAZAR CARLOS M V76.10 BREAST CANCER SCREENING 10/02/2013 CHRISTEL SALAZAR CARLOS M V65.42 COUNSELING - SMOKING CESSATION 10/02/2013 CHRISTEL CLAIMS CLERK, CARLOS M V74.5 STD SCREEN 10/02/2013 CHRISTEL SALAZAR, CARLOS M V76.10 BREAST CANCER SCREENING 10/02/2013 CHRISTEL SALAZAR CARLOS M V65.42 COUNSELING - SMOKING CESSATION 10/02/2013 CHRISTEL SALAZAR, CARLOS M V74.5 STD SCREEN 10/02/2013 CHRISTEL SALAZAR CARLOS M V76.10 BREAST CANCER SCREENING 10/02/2013 CHRISTEL SALAZAR CARLOS M V65.42 COUNSELING - SMOKING CESSATION 10/02/2013 ALBERTO AHUJAMANUEL Deras V74.5 STD SCREEN 10/02/2013 CHRISTEL SALAZARALBERTOCARLOS Augusta V76.10 BREAST CANCER SCREENING 01/01/2014 WENDI BLACK MD 307.42 PERSISTENT DISORDER OF INITIATING OR MAINTAINING SLEEP 01/01/2014 WENDI BLACK MD N 599.70 HEMATURIA UNSPECIFIED 01/01/2014 WENDI BLACK MD N 724.2 LUMBAGO 01/01/2014 WENDI BLACK MD N 307.42 PERSISTENT DISORDER OF INITIATING OR MAINTAINING SLEEP 01/01/2014 WENDI BLACK MD N 599.70 HEMATURIA UNSPECIFIED 01/01/2014 WENDI BLACK MD N 724.2 LUMBAGO 01/01/2014 DIMPLE PEÑALOZA DO 307.42 PERSISTENT DISORDER OF INITIATING OR MAINTAINING SLEEP 01/01/2014 DIMPLE PEÑALOZA DO K 599.70 HEMATURIA UNSPECIFIED 01/01/2014 DIMPLE PEÑALOZA DO K 724.2 LUMBAGO 01/01/2014 MANAV GIBSON APRN 307.42 PERSISTENT DISORDER OF INITIATING OR MAINTAINING SLEEP 01/01/2014 MANAV GIBSON APRN 599.70 HEMATURIA UNSPECIFIED 01/01/2014 PAIGE HECK MANAV LONG 724.2 LUMBAGO 01/01/2014 DIMPLE PEÑALOZA DO K 307.42 PERSISTENT DISORDER OF INITIATING OR MAINTAINING SLEEP 01/01/2014 DIMPLE PEÑALOZA DO K 599.70 HEMATURIA UNSPECIFIED 01/01/2014 DIMPLE PEÑALOZA DO K 724.2 LUMBAGO 01/01/2014 WENDI BLACK MD N 307.42 PERSISTENT DISORDER OF INITIATING OR MAINTAINING SLEEP 01/01/2014 WENDI BLACK MD N 599.70 HEMATURIA UNSPECIFIED 01/01/2014 WENDI BLACK MD N 724.2 LUMBAGO 01/01/2014 WENDI BLACK MD N 307.42 PERSISTENT DISORDER OF INITIATING OR MAINTAINING SLEEP 01/01/2014 WENDI BLACK MD N 599.70 HEMATURIA UNSPECIFIED 01/01/2014 WENDI BLACK MD N 724.2 LUMBAGO 01/01/2014 TIN HEREDIA PSYD 307.42 PERSISTENT DISORDER OF INITIATING OR MAINTAINING SLEEP 01/01/2014 MCCLEEARY PSYD, JOSE LUIS L 599.70 HEMATURIA UNSPECIFIED 01/01/2014 TIN HEREDIA [...] UNSPECIFIED 01/01/2014 CARLOS AHUJA M 724.2 LUMBAGO 01/01/2014 CARLOS AHUJA M 307.42 PERSISTENT DISORDER OF INITIATING OR MAINTAINING SLEEP 01/01/2014 CARLOS AHUJA M 599.70 HEMATURIA UNSPECIFIED 01/01/2014 CARLOS AHUJA M 724.2 LUMBAGO 01/01/2014 CARLOS AHUJA M 307.42 PERSISTENT DISORDER OF INITIATING OR MAINTAINING SLEEP 01/01/2014 CARLOS AHUJA M 599.70 HEMATURIA UNSPECIFIED 01/01/2014 CARLOS AHUJA M 724.2 LUMBAGO 01/01/2014 CARLOS AHUJA M 307.42 PERSISTENT DISORDER OF INITIATING OR MAINTAINING SLEEP 01/01/2014 CARLOS AHUJA M 599.70 HEMATURIA UNSPECIFIED 01/01/2014 CARLOS AHUJA M 724.2 LUMBAGO 02/17/2014 PEÑALOZA DO, DIMPLE K 466.0 BRONCHITIS, ACUTE 02/17/2014 MANAV GIBSON APRN 466.0 BRONCHITIS, ACUTE 02/17/2014 PEÑALOZA DO, DIMPLE K 466.0 BRONCHITIS, ACUTE 02/17/2014 WENDI BLACK MD 466.0 BRONCHITIS, ACUTE 02/17/2014 WENDI BLACK MD 466.0 BRONCHITIS, ACUTE 02/17/2014 TIN HEREDIA PSYD 466.0 BRONCHITIS, ACUTE 02/17/2014 WENDI BLACK MD N 466.0 BRONCHITIS, ACUTE 02/17/2014 WENDI BLACK MD N 466.0 BRONCHITIS, ACUTE 02/17/2014 CHRISTEL CLAIMS CLERK, CARLOS M 466.0 BRONCHITIS, ACUTE 02/17/2014 CHRISTEL CLAIMS CLERK, CARLOS M 466.0 BRONCHITIS, ACUTE 02/17/2014 CHRISTEL CLAIMS CLERK, CARLOS M 466.0 BRONCHITIS, ACUTE 02/17/2014 CHRISTEL CLAIMS CLERK, CARLOS M 466.0 BRONCHITIS, ACUTE 05/21/2014 WENDI BLACK MD N 388.70 OTALGIA UNSPECIFIED 05/21/2014 WENDI BLACK MD N 388.70 OTALGIA UNSPECIFIED 05/21/2014 TIN HEREDIA PSYD L 388.70 OTALGIA UNSPECIFIED 05/21/2014 WENDI BLACK MD N 388.70 OTALGIA UNSPECIFIED 05/21/2014 WENDI BLACK MD N 388.70 OTALGIA UNSPECIFIED 05/21/2014 CHRISTEL CLAIMS CLERKCARLOS M 388.70 OTALGIA UNSPECIFIED 05/21/2014 CHRISTEL CLAIMS CLERKCARLOS M 388.70 OTALGIA UNSPECIFIED 05/21/2014 CHRISTEL CLAIMS CLERKCARLOS M 388.70 OTALGIA UNSPECIFIED 05/21/2014 CHRISTEL CLAIMS CLERKCARLOS M 388.70 OTALGIA UNSPECIFIED 06/26/2014 WENDI BLACK [...] 06/26/2014 CARLOS AHUJA M 786.50 CHEST PAIN 06/26/2014 CARLOS AHUJA M 346.80 OTHER FORMS OF MIGRAINE WITHOUT INTRACTABLE MIGRAINE WITHOUT MENTION OF STATUS MIGRAINOSUS 06/26/2014 CARLOS AHUJA M 786.50 CHEST PAIN 06/26/2014 CARLOS AHUJA 346.80 OTHER FORMS OF MIGRAINE WITHOUT INTRACTABLE MIGRAINE WITHOUT MENTION OF STATUS MIGRAINOSUS 06/26/2014 CARLOS AHUJA 786.50 CHEST PAIN 06/26/2014 CARLOS AHUJA 346.80 OTHER FORMS OF MIGRAINE WITHOUT INTRACTABLE MIGRAINE WITHOUT MENTION OF STATUS MIGRAINOSUS 06/26/2014 CARLOS AHUJA 786.50 CHEST PAIN 07/16/2014 CARLOS AHUJA 578.1 BLOOD IN STOOL 07/16/2014 CARLOS AHUJA 578.1 BLOOD IN STOOL 12/02/2014 BRAYDEN RICE FACC, DIANE FACP CCDS Ot 272.4 12/02/2014 BRAYDEN DILLONC, [...] 786.50 12/02/2014 Ot V88.01 12/02/2014 SOCORRO KEATING PICK UP DRIVER Ot 305.1 12/02/2014 SOCORRO KEATING PICK UP DRIVER Ot 525.9 12/02/2014 SOCORRO KEATING PICK UP DRIVER Ot 526.5 12/02/2014 BRAYDEN DILLONC, DIANE FACP [...] Ot 786.50 12/02/2014 Ot V88.01 12/02/2014 BRAYDEN RICE FACC, ALI FACP CCDS Ot 272.4 12/02/2014 BRAYDEN RICE [...] Ot 786.50 12/02/2014 Ot V88.01 12/28/2014 BRAYDEN DILLONC, ALI FACP CCDS Ot 272.4 12/28/2014 BRAYDEN RICE FACC, ALI FACP CCDS Ot 278.00 12/28/2014 BRAYDEN RICE FACC, ALI FACP CCDS Ot 305.1 12/28/2014 BRAYDEN DILLONC, ALI FACP CCDS Ot 401.9 12/28/2014 BRAYDEN DILLONC, ALI FACP CCDS Ot 786.50 12/28/2014 BRAYDEN DILLONC, ALI FACP CCDS Ot V88.01 12/28/2014 Ot 272.4 12/28/2014 Ot 278.00 12/28/2014 Ot 305.1 12/28/2014 Ot 401.9 12/28/2014 Ot 786.50 12/28/2014 Ot V88.01 12/28/2014 ALVARO CABRERA MD Ot 723.1 12/28/2014 ALVARO CABRERA MD Ot E000.8 12/28/2014 ALVARO CABRERA MD Ot E816.0 12/28/2014 BRAYDEN RICE FACC, ALI FACP CCDS Ot 272.4 12/28/2014 BRAYDEN DILLONC, ALI FACP CCDS Ot 278.00 12/28/2014 BRAYDEN RICE FACC, ALI FACP CCDS Ot 305.1 12/28/2014 BRAYDEN MD FACC, ALI FACP CCDS Ot 401.9 12/28/2014 BRAYDEN RICE FACC, ALI FACP CCDS Ot 786.50 12/28/2014 BRAYDEN RICE FACC, ALI FACP CCDS Ot V88.01 12/28/2014 Ot 272.4 12/28/2014 Ot 278.00 12/28/2014 Ot 305.1 12/28/2014 Ot 401.9 12/28/2014 Ot 786.50 12/28/2014 Ot V88.01 01/02/2015 BRAYDEN RICE FACC, ALI FACP CCDS Ot 272.4 01/02/2015 BRAYDEN RICE FACC, ALI FACP CCDS Ot 278.00 01/02/2015 BRAYDEN RICE FACC, ALI FACP CCDS Ot 305.1 01/02/2015 BRAYDEN RICE FACC, ALI FACP CCDS Ot 401.9 01/02/2015 BRAYDEN DILLONC, ALI FACP CCDS Ot 786.50 01/02/2015 BRAYDEN [...] FACP CCDS Ot 401.9 06/02/2015 BRAYDEN DILLONC, ALI FACP CCDS Ot 786.50 06/02/2015 BRAYDEN DILLONC, ALI FACP CCDS Ot V88.01 06/02/2015 Ot 272.4 06/02/2015 Ot 278.00 06/02/2015 Ot 305.1 06/02/2015 Ot 401.9 06/02/2015 Ot 786.50 06/02/2015 Ot V88.01 06/02/2015 MARCELLUS DONATO MD Ot K52.9 NONINFECTIVE GASTROENTERITIS AND COLITIS 06/02/2015 BRAYDEN RICE FACC, ALI FACP CCDS Ot 272.4 06/02/2015 BRAYDEN RICE [facility], ALI FACP CCDS Ot 278.00 06/02/2015 BRAYDEN RICE FAC, ALI FACP CCDS Ot 305.1 06/02/2015 BRAYDEN RICE [facility], ALI FACP CCDS Ot 401.9 06/02/2015 BRAYDEN RICE [facility], ALI FACP CCDS Ot 786.50 06/02/2015 BRAYDEN RICE [facility], [facility] Ot V88.01 06/02/2015 Ot 272.4 06/02/2015 [...] TO OTHER SPECIFIED FACTORS , INI 01/28/2016 SHASHI RICE, BOBY Manuela Ot Y99.8 OTHER EXTERNAL CAUSE STATUS 03/01/2016 SOCORRO KEATING PICK UP DRIVER Ot I10 ESSENTIAL (PRIMARY) HYPERTENSION 03/01/2016 SOCORRO KEATING PICK UP DRIVER Ot K52.9 NONINFECTIVE GASTROENTERITIS AND COLITIS 03/01/2016 SOCORRO KEATING PICK UP DRIVER Ot R11.2 NAUSEA WITH VOMITING, UNSPECIFIED 03/01/2016 SOCORRO KEATING PICK UP DRIVER Ot Z79.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 THERAPY 03/02/2016 SOCORRO KEATING PICK UP DRIVER Ot I10 ESSENTIAL (PRIMARY) HYPERTENSION 03/02/2016 SOCORRO KEATING PICK UP DRIVER Ot K52.9 NONINFECTIVE GASTROENTERITIS AND COLITIS 03/02/2016 SOCORRO KEATING PICK UP DRIVER Ot R11.2 NAUSEA WITH VOMITING, UNSPECIFIED 03/02/2016 SOCORRO KEATING PICK UP DRIVER Ot Z79.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 THERAPY 03/02/2016 SOCORRO KEATING PICK UP DRIVER Ot I10 ESSENTIAL (PRIMARY) HYPERTENSION 03/02/2016 SOCORRO KEATING PICK UP DRIVER Ot K52.9 NONINFECTIVE GASTROENTERITIS AND COLITIS 03/02/2016 SOCORRO KEATING PICK UP DRIVER Ot R11.2 NAUSEA WITH VOMITING, UNSPECIFIED 03/02/2016 SOCORRO KEATING PICK UP DRIVER Ot Z79.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 THERAPY 03/05/2016 SOCORRO KEATING PICK UP DRIVER Ot I10 ESSENTIAL (PRIMARY) HYPERTENSION 03/05/2016 SOCORRO KEATING APRN Ot K52.9 NONINFECTIVE GASTROENTERITIS AND COLITIS 03/05/2016 SOCORRO KEATING PICK UP DRIVER Ot R11.2 NAUSEA WITH VOMITING, UNSPECIFIED 03/05/2016 SOCORRO KEATING PICK UP DRIVER Ot Z79.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 THERAPY 03/08/2016 SOCORRO KEATING PICK UP DRIVER Ot I10 ESSENTIAL (PRIMARY) HYPERTENSION 03/08/2016 SOCORRO KEATING PICK UP DRIVER Ot K52.9 NONINFECTIVE GASTROENTERITIS AND COLITIS 03/08/2016 SOCORRO KEATING PICK UP DRIVER Ot R11.2 NAUSEA WITH VOMITING, UNSPECIFIED 03/08/2016 SOCORRO KEATING PICK UP DRIVER Ot Z79.899 OTHER SKILLED NURSING (CURRENT) DRUG THERAPY 03/14/2016 SOCORRO KEATING PICK UP DRIVER Ot I10 ESSENTIAL (PRIMARY) HYPERTENSION 03/14/2016 SOCORRO KEATING PICK UP DRIVER Ot K52.9 NONINFECTIVE GASTROENTERITIS AND COLITIS 03/14/2016 SOCORRO KEATING PICK UP DRIVER Ot R11.2 NAUSEA WITH VOMITING, UNSPECIFIED 03/14/2016 SOCORRO KEATING PICK UP DRIVER Ot Z79.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 THERAPY 06/30/2016 ALVARO CABRERA MD [...] Ot F17.210 NICOTINE DEPENDENCE, CIGARETTES, UNCOMPL 08/17/2016 DAMEON YEPEZ GUY K Ot I10 ESSENTIAL (PRIMARY) HYPERTENSION 08/17/2016 DAMEON YEPEZ GUY K Ot S92.325D NONDISP FX OF 2ND METATARSAL BONE, L FT, 08/17/2016 KINGSTON XIAO DOA K Ot S92.335A NONDISP FX OF THIRD METATARSAL BONE, LEF 08/17/2016 DAMEON YEPEZ GUY K Ot S99.922A UNSPECIFIED INJURY OF LEFT FOOT, INITIAL 08/17/2016 DAMEON YEPEZ GUY K Ot X50.0XXA OVEREXERTION FROM STRENUOUS MOVEMENT OR 08/17/2016 DAMEON YEPEZ GUY K Ot Y99.8 OTHER EXTERNAL CAUSE STATUS 08/17/2016 KINGSTON XIAO DOA K Ot Z79.899 OTHER SKILLED NURSING (CURRENT) DRUG THERAPY 09/11/2016 ANKIT BE MD Ot F17.210 NICOTINE DEPENDENCE, CIGARETTES, UNCOMPL 09/11/2016 ANKIT BE MD Ot I10 ESSENTIAL (PRIMARY) HYPERTENSION 09/11/2016 ANKIT BE MD Ot N17.9 ACUTE KIDNEY FAILURE, UNSPECIFIED 09/11/2016 [place] RICE, ANKIT Tristan Ot R39.15 URGENCY OF URINATION 09/17/2016 [place] RICE, ANKIT Tristan Ot F17.210 NICOTINE DEPENDENCE, CIGARETTES, UNCOMPL 09/17/2016 [place] RICE, ANKIT Azalea Ot I10 ESSENTIAL (PRIMARY) HYPERTENSION 09/17/2016 [place] RICE, ANKIT Tristan Ot N17.9 ACUTE KIDNEY FAILURE, UNSPECIFIED 09/17/2016 [place] RICE, ANKIT Tristan Ot R39.15 URGENCY OF URINATION 09/25/2016 SORIN SINGLETON MDUS J Ot F17.210 NICOTINE DEPENDENCE, CIGARETTES, UNCOMPL 09/25/2016 MANI RICE CRYSTAL J Ot I10 ESSENTIAL (PRIMARY) HYPERTENSION 09/25/2016 SORIN SINGLETON MDUS J Ot M54.5 LOW BACK PAIN 09/25/2016 SORIN SINGLETON MDUS J Ot R11.0 NAUSEA 09/25/2016 SORIN SINGLETON MDUS J Ot R53.83 OTHER FATIGUE 09/25/2016 SORIN SINGLETON MDUS J Ot Z79.899 OTHER SKILLED NURSING (CURRENT) DRUG THERAPY 09/27/2016 MANI RICE CRYSTAL J Ot F17.210 NICOTINE DEPENDENCE, CIGARETTES, UNCOMPL 09/27/2016 SORIN SINGLETON MDUS J Ot I10 ESSENTIAL (PRIMARY) HYPERTENSION 09/27/2016 SORIN SINGLETON MDUS J Ot M54.5 LOW BACK PAIN 09/27/2016 SORIN SINGLETON MDUS J Ot R11.0 NAUSEA 09/27/2016 SORIN SINGLETON MDUS J Ot R53.83 OTHER FATIGUE 09/27/2016 MANI RICE CRYSTAL J Ot Z79.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 THERAPY 10/01/2016 MANI RICE CRYSTAL J Ot F17.210 NICOTINE DEPENDENCE, CIGARETTES, UNCOMPL 10/01/2016 MANI RICE CRYSTAL J Ot I10 ESSENTIAL (PRIMARY) HYPERTENSION 10/01/2016 SORIN SINGLETON MDUS J Ot M54.5 LOW BACK PAIN 10/01/2016 MANI RICE CRYSTAL J Ot R11.0 NAUSEA 10/01/2016 SORIN SINGLETON MDUS J Ot R53.83 OTHER FATIGUE 10/01/2016 SORIN SINGLETON MDUS J Ot Z79.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 THERAPY 12/06/2016 DAMEON DO, GUY K Ot E78.00 PURE HYPERCHOLESTEROLEMIA, UNSPECIFIED 12/06/2016 DAMEON DO, GUY K Ot E86.0 DEHYDRATION 12/06/2016 DAMEON DO, GUY K Ot F17.210 NICOTINE DEPENDENCE, CIGARETTES, UNCOMPL 12/06/2016 DAMEON DO, GUY K Ot F32.9 MAJOR DEPRESSIVE DISORDER, SINGLE EPISOD 12/06/2016 DAMEON DO, GUY K Ot F41.9 ANXIETY DISORDER, UNSPECIFIED 12/06/2016 DAMEON DO, GUY K Ot I10 ESSENTIAL (PRIMARY) HYPERTENSION 12/06/2016 DAMEON DO, GUY K Ot J45.909 UNSPECIFIED ASTHMA, UNCOMPLICATED 12/06/2016 DAMEON DO, GUY K Ot K52.9 NONINFECTIVE GASTROENTERITIS AND COLITIS 12/06/2016 DAMEON DO GUY K Ot N28.9 DISORDER OF KIDNEY AND URETER, UNSPECIFI 12/06/2016 DAMEON DO GUY K Ot N39.0 URINARY TRACT INFECTION, SITE NOT SPECIF 12/06/2016 DAMEON DO GUY K Ot R10.84 GENERALIZED ABDOMINAL PAIN 12/06/2016 DAMEON DO, GUY K Ot Z90.49 ACQUIRED ABSENCE OF OTHER SPECIFIED PART 12/06/2016 DAMEON DO, GUY K Ot Z90.710 ACQUIRED ABSENCE OF BOTH CERVIX AND UTER 12/09/2016 DAMEON DO, GUY K Ot E78.00 PURE HYPERCHOLESTEROLEMIA, UNSPECIFIED 12/09/2016 DAMEON DO, GUY K Ot E86.0 DEHYDRATION 12/09/2016 DAMEON DO, GUY K Ot F17.210 NICOTINE DEPENDENCE, CIGARETTES, UNCOMPL 12/09/2016 DAMEON DO GUY K Ot F32.9 MAJOR DEPRESSIVE DISORDER, SINGLE EPISOD 12/09/2016 DAMEON DO, GUY K Ot F41.9 ANXIETY DISORDER, UNSPECIFIED 12/09/2016 DAMEON DO, GUY K Ot I10 ESSENTIAL (PRIMARY) HYPERTENSION 12/09/2016 DAMEON DO GUY K Ot J45.909 UNSPECIFIED ASTHMA, UNCOMPLICATED 12/09/2016 DAMEON DO, GUY K Ot K52.9 NONINFECTIVE GASTROENTERITIS AND COLITIS 12/09/2016 DAMEON DO, GUY K Ot N28.9 DISORDER OF KIDNEY AND URETER, UNSPECIFI 12/09/2016 DAMEON DO, GUY K Ot N39.0 URINARY TRACT INFECTION, SITE NOT SPECIF 12/09/2016 GUY XIAO DO Ot R10.84 GENERALIZED ABDOMINAL PAIN 12/09/2016 GUY XIAO DO Ot Z90.49 ACQUIRED ABSENCE OF OTHER SPECIFIED PART 12/09/2016 GUY XIAO DO Ot Z90.710 ACQUIRED ABSENCE OF BOTH CERVIX AND UTER 12/21/2016 UZMA IRVING Ot E78.00 PURE HYPERCHOLESTEROLEMIA, UNSPECIFIED 12/21/2016 UZMA IRVING Ot F17.210 NICOTINE DEPENDENCE, CIGARETTES, UNCOMPL 12/21/2016 UZMA IRVING Ot F32.9 MAJOR DEPRESSIVE DISORDER, SINGLE EPISOD 12/21/2016 UZMA IRVING Ot F41.9 ANXIETY DISORDER, UNSPECIFIED 12/21/2016 UZMA IRVING Ot I10 ESSENTIAL (PRIMARY) HYPERTENSION 12/21/2016 UZMA IRVING Ot J45.909 UNSPECIFIED ASTHMA, UNCOMPLICATED 12/21/2016 UZMA IRVING Ot L72.3 SEBACEOUS CYST 12/21/2016 UZMA IRVING Ot M54.41 LUMBAGO WITH SCIATICA, RIGHT SIDE 12/21/2016 UZMA IRVING Ot M54.5 LOW BACK PAIN 12/21/2016 UZMA IRVING Ot Z90.49 ACQUIRED ABSENCE OF OTHER SPECIFIED PART 12/21/2016 UZMA IRVING Ot Z90.710 ACQUIRED ABSENCE OF BOTH CERVIX AND UTER 12/28/2016 WINSTONJASMINA CorriganP Ot E78.00 PURE HYPERCHOLESTEROLEMIA, UNSPECIFIED 12/28/2016 WINSTON JASMINA SUPERVISOR TANK HOUSE Ot F32.9 MAJOR DEPRESSIVE DISORDER, SINGLE EPISOD 12/28/2016 WINSTON JASMINA SUPERVISOR [employer] HOUSE Ot F41.9 ANXIETY DISORDER, UNSPECIFIED 12/28/2016 WINSTON JASMINA SUPERVISOR T[employer] HOUSE Ot I10 ESSENTIAL (PRIMARY) HYPERTENSION 12/28/2016 WINSTON, JASMINA SUPERVISOR T[employer] HOUSE Ot J45.909 UNSPECIFIED ASTHMA, UNCOMPLICATED 12/28/2016 WINSTON JASMINA SUPERVISOR T[employer] HOUSE Ot M54.16 RADICULOPATHY, LUMBAR REGION 12/28/2016 WINSTON JASMINA SUPERVISOR [employer] HOUSE Ot M54.5 LOW BACK PAIN 12/28/2016 WINSTON, JASMINA SUPERVISOR [employer] HOUSE Ot Z87.81 PERSONAL HISTORY OF (HEALED) TRAUMATIC F 12/28/2016 WINSTONJASMINA Corrigan SUPERVISOR [employer] HOUSE Ot Z90.710 ACQUIRED ABSENCE OF BOTH CERVIX AND UTER 12/28/2016 WINSTON, JASMINA SUPERVISOR [employer] HOUSE Ot Z98.890 OTHER SPECIFIED POSTPROCEDURAL STATES 01/03/2017 WINSTON JASMINA SUPERVISOR T[employer] HOUSE Ot E78.00 PURE HYPERCHOLESTEROLEMIA, UNSPECIFIED 01/03/2017 WINSTON, JASMINA SUPERVISOR [employer] HOUSE Ot F32.9 MAJOR DEPRESSIVE DISORDER, SINGLE EPISOD 01/03/2017 WINSTON JASMINA SUPERVISOR [employer] HOUSE Ot F41.9 ANXIETY DISORDER, UNSPECIFIED 01/03/2017 WINSTON, JASMINA SUPERVISOR [employer] HOUSE Ot I10 ESSENTIAL (PRIMARY) HYPERTENSION 01/03/2017 WINSTON, JASMINA SUPERVISOR [employer] HOUSE Ot J45.909 UNSPECIFIED ASTHMA, UNCOMPLICATED 01/03/2017 WINSTON, JASMINA SUPERVISOR T[employer] HOUSE Ot M54.16 RADICULOPATHY, LUMBAR REGION 01/03/2017 WINSTON, JASMINA SUPERVISOR T[employer] HOUSE Ot M54.5 LOW BACK PAIN 01/03/2017 WINSTON, JASMINA SUPERVISOR [employer] HOUSE Ot Z87.81 PERSONAL HISTORY OF (HEALED) TRAUMATIC F 01/03/2017 WINSTON JASMINA SUPERVISOR [employer] HOUSE Ot Z90.710 ACQUIRED ABSENCE OF BOTH CERVIX AND UTER 01/03/2017 WINSTON, JASMINA SUPERVISOR [employer] HOUSE Ot Z98.890 OTHER SPECIFIED POSTPROCEDURAL STATES 01/03/2017 SOCORRO KEATING APRN Ot E78.00 PURE HYPERCHOLESTEROLEMIA, UNSPECIFIED 01/03/2017 SOCORRO KEATING APRN Ot F17.210 NICOTINE DEPENDENCE, CIGARETTES, UNCOMPL 01/03/2017 SOCORRO KEATING PICK UP DRIVER Ot I10 ESSENTIAL (PRIMARY) HYPERTENSION 01/03/2017 SOCORRO KEATING APRN Ot J45.909 UNSPECIFIED ASTHMA, UNCOMPLICATED 01/03/2017 SOCORRO KEATING APRN Ot M54.5 LOW BACK PAIN 01/03/2017 SOCORRO KEATING APRN Ot Z87.81 PERSONAL HISTORY OF (HEALED) TRAUMATIC F 01/03/2017 SOCORRO KEATING APRN Ot Z90.710 ACQUIRED ABSENCE OF BOTH CERVIX AND UTER 01/03/2017 SOCORRO KEATING APRN Ot Z98.890 OTHER SPECIFIED POSTPROCEDURAL STATES Procedures Code Description [place] [address] UA W/ CULTURE IF INDICATED 06/15/2012 16849 PSYCH IND W/MED CK 20 08/10/2012 50848 ROUTINE VENIPUNCTURE 10/30/2012 87037 BNP 10/30/2012 05481 CMP 10/30/2012 2292635 GFR CALC (RESULT ONLY) 10/30/2012 12106 H PYLORI (IN-HOUSE) 11/07/2012 94181 ROUTINE VENIPUNCTURE 03/08/2013 83601 A1C (IN-HOUSE) 56268 ESR/SED RATE 70171 CBC 03/08/2013 14886 CRP 03/08/2013 69366 TSH 03/08/2013 96586 CPK 03/08/2013 13585 CMP 03/08/2013 6509966 GFR CALC (RESULT ONLY) 03/08/2013 ANAANA CALLUM ANALYZER (SCREEN) 03/09/2013 GRAVSPANL MYASTHENIA GRAVIS PANEL 03/18/2013 57480 UA W/ CULTURE IF INDICATED 04/26/2013 64725 CULTURE URINE 32997 ROUTINE VENIPUNCTURE 10/02/2013 49495 TRICHOMONAS (IN-HOUSE) 10/02/2013 83030 SYPHILLIS-STATE [facility] 10/02/2013 87626 HIV (STATE LAB) 10/02/2013 79788 GC/CHLAM PROBE (STATE) 10/02/2013 44836 CULTURE UROGENITAL 10/03/2013 15850 UA W/ CULTURE IF INDICATED 01/01/2014 74016 UA LONG DIP 02/17 71871 ROUTINE VENIPUNCTURE 05/21/2014 70304 SED/ESR RATE (IN HOUSE) 05/21/2014 65487 LIPID PANEL 05/21 03147 PSYCH DIAGNOSTIC EVALUATION 06/25/2014 84931 ROUTINE VENIPUNCTURE 06/26/2014 83537 EKG, TRACING (IN-HOUSE) 06/26/2014 64906 CMP 06/26/2014 32422 MAGNESIUM 2014 73027 TSH 06/26/2014 CARDIOLOG LIN POWERS 06/26/2014 41866 CBC 06/26/2014 74065 PSYTX PT&/FAMILY 45 MINUTES 07/28/2014 Results Test [...] NRG Blood erythrocyte morphology finding identification NORMAL BANNER Comprehensive metabolic panel - 03/01/16 15:35 Serum [...] culture - 12/06/16 21:42 Bacterial urine culture [id number] NRG COLONY COUNT 10,000/ML - 100,000/ML NRG [...] test by minimum inhibitory concentration - NRG Complete urinalysis with reflex to culture - 12/21/16 13:17 Urine color determination YELLOW NRG Urine clarity determination VERY CLOUDY NRG Urine pH measurement by test strip 6 5- 9 Specific gravity of urine by test strip 1.015 1.016-1.022 Urine protein assay by test strip, semi-quantitative 2+ NEGATIVE Urine glucose detection by automated test strip NEGATIVE NEGATIVE Erythrocytes detection in urine sediment by light microscopy NEGATIVE NEGATIVE Urine ketones detection by automated test strip NEGATIVE NEGATIVE Urine nitrite detection by test strip NEGATIVE NEGATIVE Urine total bilirubin detection by test strip NEGATIVE NEGATIVE Urine urobilinogen measurement by automated test strip (mass/volume) 1 mg/dL NORMAL Urine leukocyte esterase detection by dipstick 1+ NEGATIVE Automated urine sediment erythrocyte count by microscopy (number/high power field) NONE NRG Automated urine sediment leukocyte count by microscopy (number/high power field ) [HPF] NRG Bacteria detection in urine sediment by light microscopy LARGE NRG Squamous epithelial cells detection in urine sediment by light microscopy TNTC NRG Crystals detection in urine sediment by light microscopy NONE NRG Casts detection in urine sediment by light microscopy NONE NRG Mucus detection in urine sediment by light microscopy NEGATIVE NRG Complete urinalysis with reflex to culture NO NRG Complete urinalysis with reflex to culture - 12/28/16 17:00 Urine color determination YELLOW NRG Urine clarity [...] detection in urine sediment by light microscopy FEW NRG Squamous epithelial cells detection in urine sediment by light microscopy 10-25 NRG Crystals detection in urine sediment by light microscopy NONE NRG Casts detection in urine sediment by light microscopy NONE NRG Mucus detection in urine sediment by light microscopy NEGATIVE NRG Complete urinalysis with reflex to culture YES NRG Bacterial urine culture - 12/28/16 17:00 Bacterial urine culture [id number] NRG COLONY COUNT 10,000/ML - 100,000/ML NRG FREE TEXT ENTRY 2 MIXED GRAM POSITIVE ANURAG NRG Encounters ACCT No. Visit Date/Time Discharge Status Pt. Type Provider Facility Loc./Unit Complaint [id number] 08/22/2014 13:09:00 08/22/2014 23: 59:59 CLS Outpatient CARLOS AHUJA [id number] 07/28/2014 09:24:00 07/28/2014 23: 59:59 CLS Outpatient CARLOS AHUJA [id number] 07/28/2014 09:24:00 07/28/2014 23: 59:59 CLS Outpatient CARLOS AHUJA [id number] 07/16/2014 09:41:00 07/16/2014 23: 59:59 CLS Outpatient WENDI BLACK MD [id number] 06/26/2014 13:30:00 06/26/2014 23: 59:59 CLS Outpatient WENDI BLACK MD [id number] 06/26/2014 13:30:00 06/26/2014 23: 59:59 CLS Outpatient WENDI BLACK MD [id number] 06/25/2014 10:06:00 06/25/2014 23: 59:59 CLS Outpatient TIN HEREDIA PSYD [id number] 06/23/2014 08:04:00 06/23/2014 23: 59:59 CLS Outpatient CARLOS AHUJA [id number] 05/21/2014 11:37:00 05/21/2014 23: 59:59 CLS Outpatient WENDI BLACK MD [id number] 05/21/2014 11:37:00 05/21/2014 23: 59:59 CLS Outpatient WENDI BLACK MD [id number] 02/21/2014 16:26:00 02/21/2014 23: 59:59 CLS Outpatient GIBSON PICK UP DRIVERMANAV [id number] 02/17/2014 14:00:00 02/17/2014 23: 59:59 CLS Outpatient PEÑALOZA DIMPLE YEPEZ [id number] 02/17/2014 14:00:00 02/17/2014 23: 59:59 CLS Outpatient DIMPLE PEÑALOZA DO [id number] 01/01/2014 10:30:00 01/01/2014 23: 59:59 CLS Outpatient WENDI BLACK MD [id number] 01/01/2014 10:30:00 01/01/2014 23: 59:59 CLS Outpatient WENDI BLACK MD [id number] 10/23/2013 10:35:00 10/23/2013 23: 59:59 CLS Outpatient GIBSON PICK UP DRIVERMANAV [id number] 10/02/2013 10:27:00 10/02/2013 23: 59:59 CLS Outpatient RAMON UMANGMAU Abhijit [id number] 07/26/2013 11:02:00 07/26/2013 23: 59:59 CLS Outpatient PAIGE FARRELLNMANAV [id number] 04/26/2013 13:33:00 04/26/2013 23: 59:59 CLS Outpatient AQUILES PEÑALOZA DOAbhijit Gaviria [id number] 03/08/2013 14:50:00 03/08/2013 23: 59:59 CLS Outpatient TEOFILO FELICIANO MD [id number] 09/04/2012 15:25:00 09/04/2012 23: 59:59 CLS Outpatient PEÑALOZA DO DIMPLE Gaviria [id number] 08/24/2012 15:09:00 08/24/2012 23: 59:59 CLS Outpatient [id number] 08/10/2012 09:40:00 08/10/2012 23: 59:59 CLS Outpatient GIBSON PICK UP DRIVERMANAV [id number] 06/21/2012 11:34:00 06/21/2012 23: 59:59 CLS Outpatient GIBSON UMANGMANAV [id number] 06/18/2012 08:06:00 06/18/2012 23: 59:59 CLS Outpatient [id number] 06/15/2012 12:10:00 06/15/2012 23: 59:59 CLS Outpatient [id number] 04/23/2012 13:28:00 04/23/2012 23: 59:59 CLS Outpatient [id number] 03/27/2012 07:58:00 03/27/2012 23:59 :59 CLS Outpatient DIMPLE PEÑALOZA DO [id number] 11/07/2012 17:40:00 Document Registration [id number] 10/30/2012 15:03:00 Document Registration [id number] 09/20/2012 09:48:00 Document Registration
[2017-01-05] MEDS ORDERED: METR500T PO (13:08)
== END 2016-12-28 18:28 | disposition home or self-care (01) ==
LOC: EDUNIT# 15:42 → ER 15:44
DX: M54.16 Radiculopathy, lumbar region (principal); F41.9 Anxiety disorder, unspecified; F32.9 Major depressive disorder, single episode, unspecified; E78.00 Pure hypercholesterolemia, unspecified; I10 Essential (primary) hypertension; J45.909 Unspecified asthma, uncomplicated; Z90.710 Acquired absence of both cervix and uterus; Z87.81 Personal history of (healed) traumatic fracture; Z98.890 Other specified postprocedural states
CPT/HCPCS: 81000; 87088; 96372; 99284

== ENCOUNTER 2016-12-31 12:09 | Emergency (ER) | payer SELFPAY ==
[~2016-12-31] VITALS: Ht 172.7 cm; Wt 122.5 kg
--- NOTE | 2016-12-31 12:38 | ED Back Pain ---
General Chief Complaint: Back Problems Stated Complaint: BACK PAIN Source of Information: Patient Exam Limitations: No Limitations History of Present Illness Time Seen by Provider: 12:33 Initial Comments This is her third visit to the emergency room in the past few days for reports of right low back pain that radiates down the right leg causing her to be unable to put weight on her right foot. This is a shooting type pain. She denies any fevers or chills. She denies any history of cancer or IV drug use. She denies any loss of bowel or bladder control. She states that she was given Flexeril during one of her previous visits and she took one of these last night but it had "the opposite effect making my legs twitch all night". She saw [facility] who did x-rays and was told nothing was wrong. She saw her chiropractor who told her that her pelvis was "out of alignment" and ultimately told her she needed an MRI. Location: Lumbar Spine Timing/Duration: 1 Week Associated Symptoms: lower back pain Allergies and Home Medications Allergies Coded Allergies: Sulfa (Sulfonamide Antibiotics) (Unverified Allergy, Unknown, 07/31/14) amoxicillin (Unverified Allergy, Unknown, 07/31/14) morphine (Unverified Allergy, Unknown, 07/31/14) paroxetine (Unverified Allergy, Unknown, 07/31/14) sulfamethoxazole (Unverified Allergy, Unknown, 07/31/14) tramadol (Verified Allergy, Unknown, itching, 12/21/16) trimethoprim (Unverified Allergy, Unknown, 07/31/14) acetaminophen (Verified Adverse Reaction, Intermediate, nausea, 12/21/16) codeine (Verified Adverse Reaction, Intermediate, nausea, 12/21/16) hydrocodone (Unverified Adverse Reaction, Intermediate, nausea, 12/21/16) Home Medications Acyclovir 400 Mg Tablet, #60 (Reported) Alprazolam 2 Mg Tablet, 2 MG PO TID PRN for ANXIETY, (Reported) Amitriptyline HCl 50 Mg Tablet, 50 MG PO HS, #30 (Reported) Amitriptyline HCl 25 Mg Tablet, 25 MG PO DAILY, (Reported) Amlodipine Besylate 5 Mg Tablet, 5 MG PO DAILY, (Reported) Cholecalciferol (Vitamin D3) 50,000 Unit Capsule, 50,000 UNIT PO WEEK, (Reported ) Clindamycin HCl 300 Mg Capsule, 300 MG PO Q8H, #21 Ref 0 Prescribed by: UZMA CARNES on 12/21/161404 Cyclobenzaprine HCl 10 Mg Tablet, 10 MG PO Q8H PRN for SPASMS, #10 Ref 0 Prescribed by: UZMA CARNES on 12/21/16 140 Dicyclomine HCl 10 Mg Capsule, 10 MG PO Q6H PRN for ABDOMINAL PAIN, #15 Prescribed by: GUY XIAO on 12/06/162154 Gabapentin 300 Mg Tablet, 900 MG PO BID, (Reported) Hyoscyamine Sulfate 0.125 Mg Tab.subl, 1-2 TAB SL Q4H, #10 Prescribed by: GUY XIAO on 12/06/162154 Lisinopril 10 Mg Tablet, Unknown Dose PO, (Reported) Mirtazapine 30 Mg Tablet, Unknown Dose PO, (Reported) Nitrofurantoin Monohyd/M-Cryst 100 Mg Capsule, 100 MG PO BID, #20 Prescribed by: GUY XIAO on 12/06/162206 Omeprazole 20 Mg Capsule.dr, 20 MG PO DAILY, (Reported) Ondansetron 4 Mg Tab.rapdis, 4 MG PO Q4H, #10 Prescribed by: GUY XIAO on 12/06/162154 Ondansetron HCl 4 Mg Tab, 4 MG PO Q6H PRN for NAUSEA/VOMITING-1ST LINE, #20 Ref 0 Prescribed by: CRYSTAL SINGLETON on 09/25/162237 Polyethylene Glycol 3350 17 Gm Powd.pack, 17 GM PO BID PRN for 3 Days, #1 Ref 0 Prescribed by: CRYSTAL SINGLETON on 09/25/162237 Constitutional: see HPI EENTM: see HPI Respiratory: no symptoms reported Cardiovascular: no symptoms reported Genitourinary: no symptoms reported Musculoskeletal: see HPI, back pain Skin: no symptoms reported Past Fwidniw-Kdefxp-Isvlzg Hx Patient Social History Alcohol Use: Denies Use Recreational Drug Use: No Smoking Status: Current Everyday Smoker Type Used: Cigarettes Recent Hopitalizations: No Immunizations Up To Date Tetanus Booster (TDap): Less than 5yrs Seasonal Allergies Seasonal Allergies: No Surgeries HX Surgeries: Yes Surgeries: Breast, Gallbladder, Hysterectomy, Nose Respiratory Hx Respiratory Disorders: Yes Respiratory Disorders: Asthma Cardiovascular Hx Cardiac Disorders: Yes Cardiac Disorders: High Cholesterol, Hypertension Neurological Hx Neurological Disorders: No 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 System Hx 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 Disorders: No Sexually Transmitted Disease: No HIV/AIDS: No [employer] History: Hysterectomy Genitourinary Hx Genitourinary Disorders: Yes Genitourinary Disorders: UTI-Chronic Gastrointestinal Hx Gastrointestinal Disorders: No Musculoskeletal Hx Musculoskeletal Disorders: Yes (LEFT FOOT FRACTURE) Musculoskeletal Disorders: Fractures Endocrine Hx Endocrine Disorders: No HEENT HX ENT Disorders: No Cancer Hx Cancer: No Psychosocial Hx Psychiatric Problems: Yes (SUICIDAL IDEATION) Behavioral Health Disorders: Anxiety, Depression Integumentary HX Skin/Integumentary Disorder: No Blood Transfusions Hx Blood Disorders: No Adverse Reaction to a Blood Tr: No Family Medical History Significant Family History: No Pertinent Family Hx Physical Exam Vital Signs Vital Sign - Last 12Hours 12/31/16 12:29 Temp 97.8 Pulse 107 Resp 18 B/P (MAP) 124/86 Pulse Ox 95 O2 Delivery Room Air Capillary Refill : General Appearance: No Apparent Distress, WD/WN HEENT: PERRL/EOMI, TMs Normal Neck: Full Range of Motion, Normal Inspection Respiratory: No Accessory Muscle Use, No Respiratory Distress Gastrointestinal: Non Tender, Soft Neurologic/Psychiatric: Alert, Oriented x3, No Motor/Sensory Deficits Skin: Normal Color, Warm/Dry Progress/Results/Core Measures Results/Orders My Orders Orders - SOCORRO KEATING APRN Ct Lumbar Spine Wo (12/31/16 12:33) Vital Signs/I&O Vital Sign - Last 12Hours 12/31/16 12:29 Temp 97.8 Pulse 107 Resp 18 B/P (MAP) 124/86 Pulse Ox 95 O2 Delivery Room Air Diagnostic Imaging Diagonstic Imaging: CT Comments NAME: [facility] REC#: [id number] PT STATUS: REG ER : 1980 PHYSICIAN: SOCORRO KEATING APRN ADMIT DATE: 12/31/16/ER Draft Date of Exam:12/31/16 CT LUMBAR SPINE WO PROCEDURE: CT lumbar spine without contrast. TECHNIQUE: Multiple contiguous axial images were obtained through the lumbar spine without the use of intravenous contrast. Sagittal and coronal reformations were then performed. INDICATION: Severe back pain radiating to the legs. COMPARISON: CT abdomen and pelvis from 12/06/2016. FINDINGS: No acute fracture or traumatic malalignment of the lumbar spine. Intervertebral disc space heights are well maintained. No evidence of large disc herniation or bulge by non-myelogram CT. No critical stenosis of the spinal canal. No significant foraminal narrowing is seen. Visualized aspects of the SI joints are normal. Visualized aspects of the retroperitoneum are unremarkable. Paraspinal musculature is normal. IMPRESSION: 1. No fracture or traumatic malalignment. 2. No significant spinal stenosis or foraminal narrowing by CT. Dictated on workstation # [id number] Dict: 12/31/16 1256 Trans: 12/31/16 1301 [id number] Interpreted by: RIKY BEAN MD Electronically signed by: Departure Impression Impression: Primary Impression: Back pain Disposition: 01 HOME, SELF-CARE Condition: Stable Departure-Patient Inst. Decision time for Depature: 12:37 Referrals: WENDI BLACK MD (PCP/Family) Primary Care Physician JANIS VELASQUEZ BRIAN J MD Patient Instructions: Radiculopathy (DC) Add. Discharge Instructions: All discharge instructions reviewed with patient and/or family. Voiced understanding. Work/School Note: Work Release Form Date Seen in the Emergency Department: Dec 31, 2016 Return to Work: Jan 01, 2017 SOCORRO KEATING APRN Dec 31, 2016 12:38
--- NOTE | 2016-12-31 13:01 | Diagnostic Imaging Report ---
PROCEDURE: CT lumbar spine without contrast. TECHNIQUE: Multiple contiguous axial images were obtained through the lumbar spine without the use of intravenous contrast. Sagittal and coronal reformations were then performed. INDICATION: Severe back pain radiating to the legs. COMPARISON: CT abdomen and pelvis from 12/06/2016. FINDINGS: No acute fracture or traumatic malalignment of the lumbar spine. Intervertebral disc space heights are well maintained. No evidence of large disc herniation or bulge by non-myelogram CT. No critical stenosis of the spinal canal. No significant foraminal narrowing is seen. Visualized aspects of the SI joints are normal. Visualized aspects of the retroperitoneum are unremarkable. Paraspinal musculature is normal. IMPRESSION: 1. No fracture or traumatic malalignment. 2. No significant spinal stenosis or foraminal narrowing by CT. Dictated by: Dictated on workstation # [id number]
[2016-12-31 13:14] VITALS: BP 136/67
== END 2016-12-31 13:14 | disposition home or self-care (01) ==
LOC: EDUNIT# 12:09 → ER 12:10
DX: M54.5 Low back pain (principal); E78.00 Pure hypercholesterolemia, unspecified; I10 Essential (primary) hypertension; J45.909 Unspecified asthma, uncomplicated; F17.210 Nicotine dependence, cigarettes, uncomplicated; Z90.710 Acquired absence of both cervix and uterus; Z98.890 Other specified postprocedural states; Z87.81 Personal history of (healed) traumatic fracture
CPT/HCPCS: 72131; 99281

== ENCOUNTER → 2017-01-12 | Outpatient (CLI) | payer OTHER ==
[~2017-01-12] MED LIST changes: +METR500T PO
--- NOTE | 2017-01-12 14:17 | Diagnostic Imaging Report ---
PROCEDURE: MRI lumbar spine. TECHNIQUE: Multiplanar, multisequence MRI of the lumbar spine was performed without contrast. INDICATION: Low back pain. FINDINGS: There is satisfactory alignment of the posterior spinal line. The vertebral body heights are preserved. There are preserved disc heights as well and very minimal disc desiccation at most levels. The cauda equina and conus medullaris appear grossly unremarkable. There is no significant bone marrow abnormality in the vertebral bodies. There is mild marrow edema seen in the posterior elements of L5 more prominent on the right side. There is associated facet arthropathy and bilateral facet minimal effusion at L4-l5 and L5-S1 bilaterally. The mild marrow edema in the adjacent posterior elements is probably reactive to the facet arthritic changes. T12-L1: Unremarkable. L1-L2: Unremarkable. L2-L3: There is mild facet hypertrophy. No disc herniation. No spinal canal or foraminal stenosis. L3-L4: There is mild facet hypertrophy. No central canal or lateral recess stenosis. No disc herniation. No foraminal stenosis. L4-L5: There is no disc herniation. There is a moderate facet arthropathy bilaterally. No central canal stenosis. There is bilateral mild lateral recess stenosis. The foramina demonstrate mild stenosis on the right side and minimal stenosis on the left. L5-S1: No disc herniation. There is mild facet arthropathy. No central canal or lateral recess stenosis. No foraminal narrowing. IMPRESSION: Facet degenerative changes at L4-L5 and L5-S1 seen. There is bilateral mild lateral recess stenosis at the L4-L5 level. There is otherwise no significant spinal canal stenosis at any level. Dictated by: Dictated on workstation # [id number]
== END ==
LOC: RAD 11:42
PROVIDERS: ATTEND Family Medicine
DX: M12.88 Other specific arthropathies, not elsewhere classified, other specified site (principal)
CPT/HCPCS: 72148

== ENCOUNTER 2017-01-15 12:39 | Emergency (ER) | payer SELFPAY ==
[~2017-01-15] VITALS: Ht 172.7 cm; Wt 117.9 kg
[2017-01-15] MEDS ORDERED: ORPHENADRINE 60 MG/2 ML (NORFLEX) AMP IM ONE (14:45)
[2017-01-15] MEDS ORDERED: KETOROLAC 60 MG/2 ML VIAL IM ONE (14:45)
[2017-01-15] MEDS ORDERED: diphenhydrAMINE 50 MG/ML INJ (BENADRYL) IM ONE (14:45)
[2017-01-15] MEDS ORDERED: predniSONE 20 MG TAB PO ONE (14:45)
[2017-01-15] MEDS ORDERED: METH-313 PO (14:52)
[2017-01-15] MEDS ORDERED: TAPE50TA2 PO (14:52)
[2017-01-15] MEDS ORDERED: PRED5TAB PO (14:52)
[2017-01-15] MEDS ORDERED: PREG100C PO (14:52)
--- NOTE | 2017-01-15 14:52 | ED Back Pain ---
General Chief Complaint: Lower Extremity Stated Complaint: R SIDE NUMBNESS Nursing Triage Note: PT REPORTS LOW BACK PAIN/R HIP PAIN AND NUMBNESS GOING INTO HER R LEG. PT REPORTS BEING SEE MULTIPLE TIME FOR THIS PAIN. Nursing Sepsis Screen: No Definite Risk Source of Information: Patient History of Present Illness Time Seen by Provider: 14:25 Initial Comments PT ARRIVES VIA POV FROM HOME STATES "SAME ISSUE" PT HAS CHRONIC LOWER BACK PAIN, PAIN AND NUMBNESS NOW RADIATING DOWN RIGHT LEG-- WORSE FOR THE LAST COUPLE OF MONTHS. NO INJURY NO PROBLEMS WITH BOWEL OR BLADDER FUNCTION HAS BEEN HERE 12/21, 12/28 AND 12/31 FOR SAME PT STATES SHE HAS BEEN TO HER CHIROPRACTOR AND PCP FOR THIS PROBLEM WELL-- INITIALLY STATED SHE HAD NOT BEEN GIVEN ANYTHING FOR PAIN, THEN LATER STATES SHE HAS BEEN TAKING TIZANIDINE, BUT IT IS NOT HELPING. PT SAW DR. BLACK 1 1/2 WEEKS AGO FOR THIS PROBLEM HAD MRI 01/12/17 WHICH SHOWED MILD DEGENERATIVE CHANGES, NO CANAL STENOSIS. PT HAS NOT ATTEMPTED TO MAKE A FOLLOW UP APPOINTMENT WITH ANYONE Allergies and Home Medications Allergies Coded Allergies: Sulfa (Sulfonamide Antibiotics) (Unverified Allergy, Unknown, 07/31/14) amoxicillin (Unverified Allergy, Unknown, 07/31/14) cyclobenzaprine (Unverified Allergy, Unknown, 01/15/17) morphine (Unverified Allergy, Unknown, 07/31/14) paroxetine (Unverified Allergy, Unknown, 07/31/14) sulfamethoxazole (Unverified Allergy, Unknown, 07/31/14) tramadol (Verified Allergy, Unknown, itching, 12/21/16) trimethoprim (Unverified Allergy, Unknown, 07/31/14) acetaminophen (Verified Adverse Reaction, Intermediate, nausea, 12/21/16) codeine (Verified Adverse Reaction, Intermediate, nausea, 12/21/16) hydrocodone (Unverified Adverse Reaction, Intermediate, nausea, 12/21/16) Home Medications Acyclovir 400 Mg Tablet, #60 (Reported) Alprazolam 2 Mg Tablet, 2 MG PO TID PRN for ANXIETY, (Reported) Amitriptyline HCl 50 Mg Tablet, 50 MG PO HS, #30 (Reported) Amitriptyline HCl 25 Mg Tablet, 25 MG PO DAILY, (Reported) Amlodipine Besylate 5 Mg Tablet, 5 MG PO DAILY, (Reported) Cholecalciferol (Vitamin D3) 50,000 Unit Capsule, 50,000 UNIT PO WEEK, (Reported ) Clindamycin HCl 300 Mg Capsule, 300 MG PO Q8H, #21 Ref 0 Prescribed by: UZMA CARNES on 12/21/161404 Cyclobenzaprine HCl 10 Mg Tablet, 10 MG PO Q8H PRN for SPASMS, #10 Ref 0 Prescribed by: UZMA CARNES on 12/21/161404 Dicyclomine HCl 10 Mg Capsule, 10 MG PO Q6H PRN for ABDOMINAL PAIN, #15 Prescribed by: GUY XIAO on 12/06/162154 Gabapentin 300 Mg Tablet, 900 MG PO BID, (Reported) Hyoscyamine Sulfate 0.125 Mg Tab.subl, 1-2 TAB SL Q4H, #10 Prescribed by: GUY XIAO on 12/06/162154 Lisinopril 10 Mg Tablet, Unknown Dose PO, (Reported) Methocarbamol 750 Mg Tablet, 750 MG PO QID, #20 Prescribed by: GUY XIAO on 01/15/17 145 Metronidazole 500 Mg Tablet, 500 MG PO BID for 7 Days, (Reported) Mirtazapine 30 Mg Tablet, Unknown Dose PO, (Reported) Nitrofurantoin Monohyd/M-Cryst 100 Mg Capsule, 100 MG PO BID, #20 Prescribed by: GUY XIAO on 12/06/162206 Omeprazole 20 Mg Capsule.dr, 20 MG PO DAILY, (Reported) Ondansetron 4 Mg Tab.rapdis, 4 MG PO Q4H, #10 Prescribed by: GUY XIAO on 12/06/162154 Ondansetron HCl 4 Mg Tab, 4 MG PO Q6H PRN for NAUSEA/VOMITING-1ST LINE, #20 Ref 0 Prescribed by: CRYSTAL SINGLETON on 09/25/162237 Polyethylene Glycol 3350 17 Gm Powd.pack, 17 GM PO BID PRN for 3 Days, #1 Ref 0 Prescribed by: CRYSTAL SINGLETON on 09/25/162237 Prednisone 5 Mg Tablet, 5 MG PO UD, #78 12 PILLS DAY 1, THEN DECREASE BY 1 PILL A DAY UNTIL GONE Prescribed by: GUY XIAO on 01/15/17 145 Pregabalin 100 Mg Capsule, 100 MG PO UD, #30 1 PILL ON DAY 1, THEN 1 PILL TWICE A DAY ON DAY 2, THEN 1 PILL 3 TIMES DAILY Prescribed by: GUY XIAO on 01/15/17 1452 Tapentadol HCl 50 Mg Tablet, 50 MG PO Q6H, #20 Prescribed by: GUY XIAO on 01/15/17 1452 Constitutional: no symptoms reported Respiratory: no symptoms reported Cardiovascular: no symptoms reported Gastrointestinal: no symptoms reported Genitourinary: no symptoms reported Musculoskeletal: see HPI, back pain Skin: no symptoms reported Psychiatric/Neurological: See HPI Past Zmlidkg-Xygrom-Fejldw Hx Patient Social History Alcohol Use: Denies Use Recreational Drug Use: No Smoking Status: Current Everyday Smoker Type Used: Cigarettes Recent Foreign Travel: No Contact w/Someone Who Travel: No Recent Infectious Disease Expo: No Recent Hopitalizations: No Immunizations Up To Date Tetanus Booster (TDap): Less than 5yrs Seasonal Allergies Seasonal Allergies: No Surgeries HX Surgeries: Yes Surgeries: Breast, Gallbladder, Hysterectomy, Nose Respiratory Hx Respiratory Disorders: Yes Respiratory Disorders: Asthma Cardiovascular Hx Cardiac Disorders: Yes Cardiac Disorders: High Cholesterol, Hypertension Neurological Hx Neurological Disorders: No 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 System Hx 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 Disorders: No Sexually Transmitted Disease: No HIV/AIDS: No EMERGENCY MEDICINE History: Hysterectomy Genitourinary Hx Genitourinary Disorders: Yes Genitourinary Disorders: UTI-Chronic Gastrointestinal Hx Gastrointestinal Disorders: No Musculoskeletal Hx Musculoskeletal Disorders: Yes (LEFT FOOT FRACTURE) Musculoskeletal Disorders: Chronic Back Pain, Fractures Endocrine Hx Endocrine Disorders: No HEENT HX ENT Disorders: No Cancer Hx Cancer: No Psychosocial Hx Psychiatric Problems: Yes (SUICIDAL IDEATION) Behavioral Health Disorders: Anxiety, Depression Integumentary HX Skin/Integumentary Disorder: No Blood Transfusions Hx Blood Disorders: No Adverse Reaction to a Blood Tr: No Family Medical History Significant Family History: No Pertinent Family Hx Physical Exam Vital Signs Vital Sign - Last 12Hours 01/15/17 14:01 Temp 98.3 Pulse 77 Resp 18 B/P (MAP) 118/74 Pulse Ox 99 O2 Delivery Room Air Capillary Refill : Less Than 3 Seconds General Appearance: No Apparent Distress, WD/WN Cardiovascular: Regular Rate, Rhythm, No Edema, No JVD, No Murmur, Normal Peripheral Pulses Respiratory: Normal Breath Sounds, No Accessory Muscle Use, No Respiratory Distress Gastrointestinal: Non Tender, Soft Back: Decreased Range of Motion, Other (TENDERNESS TO LUMBAR AREA. DTR'S INTACT --+2-3/4 BILATERALLY, + STRAIGHT LEG RAISING ON RIGHT AT 45 DEGREES. 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 Skin: Normal Color, Warm/Dry, No Rash Progress/Results/Core Measures Results/Orders My Orders Orders - DAMEONKINGSTONA Everette DO Orphenadrine Injection (Norflex Injectio (01/15/17 14:45) Ketorolac Injection (Toradol Injection) (01/15/17 14:45) Diphenhydramine Injection (Benadryl Inje (01/15/17 14:45) Prednisone Tablet (Deltasone Tablet) (01/15/17 14:45) Medications Given in ED Vital Signs/I&O Vital Sign - Last 12Hours 01/15/17 01/15/17 14:01 15:28 Temp 98.3 Pulse 77 88 Resp 18 18 B/P (MAP) 118/74 Pulse Ox 99 98 O2 Delivery Room Air Blood Pressure Mean: 89 Departure Impression Impression: Primary Impression: Chronic low back pain with right-sided sciatica Disposition: 01 HOME, SELF-CARE Condition: Stable Departure-Patient Inst. Referrals: WENDI BLACK MD (PCP/Family) Primary Care Physician Patient Instructions: Chronic Pain (DC), Low Back Pain (DC), MANAGING YOUR CHRONIC PAIN, Sciatica (DC) Add. Discharge Instructions: ALTERNATE ICE AND HEAT TO SORE AREAS AT 20 MINUTE INTERVALS FOLLOW UP WITH DR. BLACK THIS WEEK FOR FURTHER CARE All discharge instructions reviewed with patient and/or family. Voiced understanding. Scripts Methocarbamol (Robaxin-750) 750 Mg Tablet 750 MG PO QID for Muscle Spasms, #20 TAB Prov: KINGSTON XIAOA K DO 01/15/17 Tapentadol HCl (Nucynta) 50 Mg Tablet 50 MG PO Q6H for Pain, #20 TAB Prov: DAMEONGUY K DO 01/15/17 Pregabalin (Lyrica) 100 Mg Capsule 100 MG PO UD, #30 CAP 1 PILL ON DAY 1, THEN 1 PILL TWICE A DAY ON DAY 2, THEN 1 PILL 3 TIMES DAILY Prov: DAMEONGUY Raman Everette YEPEZ 01/15/17 Prednisone (Prednisone) 5 Mg Tablet 5 MG PO UD, #78 TAB 12 PILLS DAY 1, THEN DECREASE BY 1 PILL A DAY UNTIL GONE Prov: DAMEONGUY Everette YEPEZ 01/15/17 Work/School Note: Work Release Form Date Seen in the Emergency Department: Jan 15, 2017 Return to Work: Jan 15, 2017 GUY XIAO DO Jan 15, 2017 14:52
[2017-01-15 15:28] VITALS: BP 122/88
== END 2017-01-15 15:28 | disposition home or self-care (01) ==
LOC: EDUNIT# 12:39 → ER 12:40
DX: M54.41 Lumbago with sciatica, right side (principal); M54.42 Lumbago with sciatica, left side; F41.9 Anxiety disorder, unspecified; F32.9 Major depressive disorder, single episode, unspecified; E78.00 Pure hypercholesterolemia, unspecified; I10 Essential (primary) hypertension; F17.210 Nicotine dependence, cigarettes, uncomplicated; Z90.710 Acquired absence of both cervix and uterus; Z87.81 Personal history of (healed) traumatic fracture
CPT/HCPCS: 99284

== ENCOUNTER 2017-02-20 10:52 | Outpatient (RCR) | payer OTHER ==
[~2017-02-20 10:52] MED LIST changes: +METH-313 PO; +PRED5TAB PO; +PREG100C PO; +TAPE50TA2 PO
== END 2017-03-01 09:25 | disposition home or self-care (01) ==
PROVIDERS: ATTEND Family Medicine
DX: M54.9 Dorsalgia, unspecified (principal)

== ENCOUNTER 2017-04-02 13:07 | Emergency (ER) | payer SELFPAY ==
[~2017-04-02] VITALS: Ht 172.7 cm; Wt 117.9 kg
--- NOTE | 2017-04-02 13:47 | ED Back Pain ---
General Chief Complaint: Lower Extremity Stated Complaint: R LEG PAIN Nursing Triage Note: pt c/o R leg pain that radiates to lower back. Pt states she has a fused disc that she had surgery on a few months ago, pain started back up monday. Nursing Sepsis Screen: No Definite Risk Source of Information: Patient Exam Limitations: No Limitations History of Present Illness Time Seen by Provider: 13:29 Initial Comments Here with report of low back pain and disc problems noted on MRI a few months back. 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 She is complaining of right low back pain that radiates down to her thigh and calf since last Monday. This is not a new problem but appears to be an exacerbation of an existing problem. Denies bowel or bladder incontinence. Denies weakness. Location: Lumbar Spine, Paraspinous Muscles Timing/Duration: 4-5 Days Severity: Mild, Moderate Pain/Injury Location: Back Radiation: Buttocks, Lower Legs, Upper Legs Modifying Factors: Improves With Immobilization, Worse With Movement Associated Symptoms: muscle spasms, No weakness, tingling in legs/feet, lower back pain, No loss of bladder control, No loss of bowel control Allergies and Home Medications Allergies Coded Allergies: Sulfa (Sulfonamide Antibiotics) (Unverified Allergy, Unknown, 07/31/14) amoxicillin (Unverified Allergy, Unknown, 07/31/14) cyclobenzaprine (Unverified Allergy, Unknown, 01/15/17) morphine (Unverified Allergy, Unknown, 07/31/14) paroxetine (Unverified Allergy, Unknown, 07/31/14) sulfamethoxazole (Unverified Allergy, Unknown, 07/31/14) tramadol (Verified Allergy, Unknown, itching, 12/21/16) trimethoprim (Unverified Allergy, Unknown, 07/31/14) acetaminophen (Verified Adverse Reaction, Intermediate, nausea, 12/21/16) codeine (Verified Adverse Reaction, Intermediate, nausea, 12/21/16) hydrocodone (Unverified Adverse Reaction, Intermediate, nausea, 12/21/16) Home Medications Acyclovir 400 Mg Tablet, #60 (Reported) Alprazolam 2 Mg Tablet, 2 MG PO TID PRN for ANXIETY, (Reported) Amitriptyline HCl 50 Mg Tablet, 50 MG PO HS, #30 (Reported) Amitriptyline HCl 25 Mg Tablet, 25 MG PO DAILY, (Reported) Amlodipine Besylate 5 Mg Tablet, 5 MG PO DAILY, (Reported) Cholecalciferol (Vitamin D3) 50,000 Unit Capsule, 50,000 UNIT PO WEEK, (Reported ) Clindamycin HCl 300 Mg Capsule, 300 MG PO Q8H, #21 Ref 0 Prescribed by: UZMA CARNES on 12/21/16 140 Cyclobenzaprine HCl 10 Mg Tablet, 10 MG PO Q8H PRN for SPASMS, #10 Ref 0 Prescribed by: UZMA CARNES on 12/21/161404 Dicyclomine HCl 10 Mg Capsule, 10 MG PO Q6H PRN for ABDOMINAL PAIN, #15 Prescribed by: GUY XIAO on 12/06/162154 Gabapentin 300 Mg Tablet, 900 MG PO BID, (Reported) Hyoscyamine Sulfate 0.125 Mg Tab.subl, 1-2 TAB SL Q4H, #10 Prescribed by: GUY XIAO on 12/06/162154 Lisinopril 10 Mg Tablet, Unknown Dose PO, (Reported) Methocarbamol 750 Mg Tablet, 750 MG PO QID, #20 Prescribed by: GUY XIAO on 01/15/17 1452 Metronidazole 500 Mg Tablet, 500 MG PO BID for 7 Days, (Reported) Mirtazapine 30 Mg Tablet, Unknown Dose PO, (Reported) Nitrofurantoin Monohyd/M-Cryst 100 Mg Capsule, 100 MG PO BID, #20 Prescribed by: GUY XIAO on 12/06/162206 Omeprazole 20 Mg Capsule.dr, 20 MG PO DAILY, (Reported) Ondansetron 4 Mg Tab.rapdis, 4 MG PO Q4H, #10 Prescribed by: GUY XIAO on 12/06/162154 Ondansetron HCl 4 Mg Tab, 4 MG PO Q6H PRN for NAUSEA/VOMITING-1ST LINE, #20 Ref 0 Prescribed by: CRYSTAL SINGLETON on 09/25/162237 Polyethylene Glycol 3350 17 Gm Powd.pack, 17 GM PO BID PRN for 3 Days, #1 Ref 0 Prescribed by: CRYSTAL SINGLETON on 09/25/162237 Prednisone 5 Mg Tablet, 5 MG PO UD, #78 12 PILLS DAY 1, THEN DECREASE BY 1 PILL A DAY UNTIL GONE Prescribed by: GUY XIAO on 01/15/17 1452 Pregabalin 100 Mg Capsule, 100 MG PO UD, #30 1 PILL ON DAY 1, THEN 1 PILL TWICE A DAY ON DAY 2, THEN 1 PILL 3 TIMES DAILY Prescribed by: GUY XIAO on 01/15/17 145 Tapentadol HCl 50 Mg Tablet, 50 MG PO Q6H, #20 Prescribed by: GUY XIAO on 01/15/17 1452 Constitutional: see HPI, No chills, No fever Respiratory: no symptoms reported Cardiovascular: no symptoms reported Gastrointestinal: see HPI Genitourinary: see HPI, No incontinence Musculoskeletal: see HPI, back pain, muscle pain Skin: no symptoms reported Psychiatric/Neurological: See HPI Past Vpspjge-Nurpot-Tpbaxg Hx Patient Social History Alcohol Use: Denies Use Recreational Drug Use: No Type Used: Cigarettes Recent Foreign Travel: No Contact w/Someone Who Travel: No Recent Infectious Disease Expo: No Recent Hopitalizations: No Physical Abuse: No Sexual Abuse: No Immunizations Up To Date Tetanus Booster (TDap): Less than 5yrs Seasonal Allergies Seasonal Allergies: No Surgeries History of Surgeries: Yes Surgeries: Breast, Gallbladder, Hysterectomy, Nose Respiratory History of Respiratory Disorde: Yes Respiratory Disorders: Asthma Cardiovascular History of Cardiac Disorders: Yes Cardiac Disorders: High Cholesterol, Hypertension Neurological History of Neurological Disord: No 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 System Hx 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 Disorders: No Sexually Transmitted Disease: No HIV/AIDS: No 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 Genitourinary Genitourinary Disorders: UTI-Chronic Gastrointestinal History of Gastrointestinal Di: No Musculoskeletal History of Musculoskeletal Dis: Yes (LEFT FOOT FRACTURE) Musculoskeletal Disorders: Chronic Back Pain, Fractures Endocrine History of Endocrine Disorders: No HEENT History of HEENT Disorders: No Cancer History of Cancer: No Psychosocial History of Psychiatric Problem: Yes (SUICIDAL IDEATION) Behavioral Health Disorders: Anxiety, Depression Suicide Risk Score: 0 Integumentary History of Skin or Integumenta: No Blood Transfusions History of Blood Disorders: No Adverse Reaction to a Blood Tr: No Reviewed Nursing Assessment Reviewed/Agree w Nursing PMH: Yes Family Medical History Significant Family History: No Pertinent Family Hx Physical Exam Vital Signs Vital Sign - Last 12Hours 04/02/17 13:18 Temp 98.0 Pulse 90 Resp 14 B/P (MAP) 136/85 Pulse Ox 97 O2 Delivery Room Air Capillary Refill : Less Than 3 Seconds General Appearance: No Apparent Distress, WD/WN Cardiovascular: Regular Rate, Rhythm, No Murmur Respiratory: Lungs Clear, Normal Breath Sounds Back: No Vertebral Tenderness, Muscle Spasm, Other (pain to the right lateral aspect of the low lumbar spine and lateral to the sacrum on the right.) Neurologic/Psychiatric: No Motor Weakness, Other (complains of mild numbness to the lateral aspect of the upper right leg) Skin: Normal Color, Warm/Dry Progress/Results/Core Measures Results/Orders Vital Signs/I&O Vital Sign - Last 12Hours 04/02/17 13:18 Temp 98.0 Pulse 90 Resp 14 B/P (MAP) 136/85 Pulse Ox 97 O2 Delivery Room Air Blood Pressure Mean: 102 Progress Note : Progress Note Seen and evaluated. Reviewed previous CT and MRI. This did not show any significant stenosis in the lumbar spine although there is some mild degenerative changes of the facets and mild stenosis. We will treat conservatively as outpatient. To follow-up with her doctor this week. Discharged home with return precautions. Patient verbalize understanding instructions and agreement with plan. Departure Impression Impression: Primary Impression: Lumbar radiculopathy, acute Disposition: 01 HOME, SELF-CARE Condition: Stable Departure-Patient Inst. Decision time for Depature: 13:51 Referrals: WENDI BLACK MD (PCP/Family) Primary Care Physician Patient Instructions: Radiculopathy (DC), Sciatica (DC) Add. Discharge Instructions: All discharge instructions reviewed with patient and/or family. Voiced understanding. Take medications as directed. Follow up with your doctor this week for recheck and further evaluation and possible referral to orthopedics as indicated. Return for worse pain, fever, weakness, breathing problems, difficulty with walking or going to the bathroom, numbness between your legs or other concerns as needed. Scripts Prednisone (Prednisone) 20 Mg Tab 40 MG PO DAILY, #14 TAB 0 Refills Prov: BOBY DANIELLE MD 04/02/17 Oxycodone HCl/Acetaminophen (Oxycodone-Acetaminophen 5-325) 1 Each Tablet 1-2 EACH PO Q6H Y for PAIN, #10 TAB 0 Refills Prov: BOBY DANIELLE MD 04/02/17 Ibuprofen (Ibuprofen) 800 Mg Tablet 800 MG PO Q8H Y for PAIN, #30 TAB 0 Refills Prov: BOBY DANIELLE MD 04/02/17 Copy Copies To 1: WENDI BLACK MD, TIMOTHY D MD Apr 02, 2017 13:47
[2017-04-02] MEDS ORDERED: OXYC-471 PO (13:53)
[2017-04-02] MEDS ORDERED: IBUP-1780 PO (13:53)
[2017-04-02] MEDS ORDERED: PRD20T PO (13:53)
[2017-04-02 14:03] VITALS: BP 135/85
--- OUTSIDE RECORDS SUMMARY | 2017-04-02 14:05 | XMS REPORT ---
Author Author SOFIA WENDI Organization [facility] Address [address] [place] [address] Care Team Providers Care Boat Dispatcher Name Role Phone SOFIAMARIA EUGENIA ELIZABETHHANY Unavailable PROBLEMS Type Condition ICD9-CM Code [id number] Code Onset Dates Condition Status SNOMED Code Problem Breast tenderness N64.4 Active 10023762 Problem Hidradenitis suppurativa L73.2 Active 27205307 Problem Depression F32.9 Active 85746723 Problem Acute right-sided low back pain with right-sided sciatica M54.41 Active 41229587 Problem Low back pain with sciatica, sciatica laterality unspecified, unspecified back pain laterality, unspecified chronicity M54.40 Active 541019598 Problem Tobacco use Z72.0 Active 646259656 Problem Genital herpes simplex, unspecified site A60.00 Active 07505492 Problem Posttraumatic stress disorder F43.10 Active 36718434 Problem Localized edema R60.0 Active 501807816 Problem Hematuria R31.9 Active 67816099 Problem Anxiety F41.9 Active 39893544 Problem Vitamin D deficiency E55.9 Active 26309086 Problem Mixed hyperlipidemia E78.2 Active 080749052 Problem Gastroesophageal reflux disease, esophagitis presence not specified K21.9 Active 622639349 Problem Bipolar disorder F31.9 Active 76218242 Problem Primary insomnia F51.01 Active 838382080 Problem Essential hypertension I10 Active 95431918 Problem Mild intermittent asthma without complication J45.20 Active 624139837 Problem History of IBS Z87.19 Active 56652746259135 ALLERGIES Substance Reaction Event Type Date Status Paxil suicidal Drug Allergy Aug, Active Morphine Sulfate hives Drug Allergy Aug, Active Hydrocodone-Acetaminophen rash Drug Allergy Aug, Active Bactrim DS break out in blisters Drug Allergy Aug, Active Amoxicillin hives Drug Allergy Aug, Active Abilify 2 Mg Tablet anger Non Drug Allergy Aug, Active Latex rash Non Drug Allergy Aug, Active SOCIAL HISTORY Never Assessed PLAN OF CARE Activity Details Follow Up 4 Weeks Reason:HTN VITAL SIGNS Height 69 in 2016-08-26 Weight 284 lbs 2016-08-26 Temperature 98.3 degrees Fahrenheit 2016-08-26 Heart Rate 110 bpm 2016-08-26 Respiratory Rate 20 2016-08-26 BMI 41.93 kg/m2 2016-08-26 Blood pressure systolic 138 mmHg 2016-08-26 Blood pressure diastolic 90 mmHg 2016-08-26 MEDICATIONS Medication Instructions Dosage Frequency Start Date End Date Duration Status Amitriptyline HCl 25 MG TAKE ONE TABLET BY MOUTH ONCE DAILY IN THE MORNING 30 Active Seroquel 100 MG Orally Once a day 1.5 tablet 24h May, 30 day(s ) Active Mirtazapine 15 MG Orally Once a day 1 tablet at bedtime 24h 30 days Active ProAir HFA 108 (90 Base) MCG/ACT Inhalation every 4 hrs 2 puffs as needed 4h Jun, 1 month Active Hydrochlorothiazide 25 MG Orally Once a day 1 tablet 24h 90 days Active Acyclovir 400 MG Orally 2 times a day 1 tablet 12h 90 days Active Neurontin 300 MG Orally two times a day 3 capsules 12h Aug, 30 days Active Omeprazole 20 mg Orally Once a day 1 capsule 24h 90 days Active Lisinopril 40 mg Orally Once a day 1 tablet 24h 30 days Active Venlafaxine HCl 50 mg Orally Twice a day 2 tablets 12h October, 30 days Active RESULTS No Results PROCEDURES No Known procedures IMMUNIZATIONS No Known Immunizations MEDICAL (GENERAL) HISTORY Type Description Date Medical History mycoplasma Medical History Essential hypertension, benign Medical History Other and unspecified hyperlipidemia Medical History Chest pain, unspecified- referred to Dr. Tineo, nml echo 2014 Medical History Muscle weakness (generalized)- neg CALLUM, nml MG panel Surgical History hysterectomy - partial - still has ovaries 2003 Surgical History cholecystectomy 1997 Surgical History Right breast duct clearing 2010 Hospitalization History surgeries Hospitalization History pneumonia
--- OUTSIDE RECORDS SUMMARY | 2017-04-02 14:05 | XMS REPORT ---
Author Author SOFIA WENDI Organization [facility] Address [address] [place] [address] Care Team Providers Care Janitor Head Name Role Phone WENDI BLACK Unavailable PROBLEMS Type Condition ICD9-CM Code [id number] Code Onset Dates Condition Status SNOMED Code Problem Breast tenderness N64.4 Active 48474324 Problem Hidradenitis suppurativa L73.2 Active 24155569 Problem Depression F32.9 Active 52319558 Problem Acute right-sided low back pain with right-sided sciatica M54.41 Active 82491180 Problem Low back pain with sciatica, sciatica laterality unspecified, unspecified back pain laterality, unspecified chronicity M54.40 Active 537581468 Problem Tobacco use Z72.0 Active 818975968 Problem Genital herpes simplex, unspecified site A60.00 Active 47937902 Problem Posttraumatic stress disorder F43.10 Active 42702785 Problem Localized edema R60.0 Active 670501352 Problem Hematuria R31.9 Active 13210133 Problem Anxiety F41.9 Active 78066005 Problem Vitamin D deficiency E55.9 Active 93156869 Problem Mixed hyperlipidemia E78.2 Active 139851629 Problem Gastroesophageal reflux disease, esophagitis presence not specified K21.9 Active 256302066 Problem Bipolar disorder F31.9 Active 96365392 Problem Primary insomnia F51.01 Active 271798671 Problem Essential hypertension I10 Active 72109144 Problem Mild intermittent asthma without complication J45.20 Active 818634468 Problem History of IBS Z87.19 Active 21024174176073 ALLERGIES No Information SOCIAL HISTORY Never Assessed PLAN OF CARE VITAL SIGNS MEDICATIONS Medication Instructions Dosage Frequency Start Date End Date Duration Status Omeprazole 20 mg Orally Once a day 1 capsule 24h Aug, 90 days Active RESULTS No Results PROCEDURES No [...]
--- OUTSIDE RECORDS SUMMARY | 2017-04-02 14:05 | XMS REPORT ---
Author Author SOFIA WENDI Organization [facility] [place] Address [address] [place] [address] Care Team Providers Care Automatic Nailing Machine Operator Name Role Phone SOFIAMARIA EUGENIA ELIZABETHHANY Unavailable PROBLEMS Type Condition ICD9-CM Code [id number] Code Onset Dates Condition Status SNOMED Code Problem Breast tenderness N64.4 Active 17500872 Problem Hidradenitis suppurativa L73.2 Active 84214360 Problem Depression F32.9 Active 32914678 Problem Acute right-sided low back pain with right-sided sciatica M54.41 Active 79726286 Problem Low back pain with sciatica, sciatica laterality unspecified, unspecified back pain laterality, unspecified chronicity M54.40 Active 432642946 Problem Tobacco use Z72.0 Active 370367302 Problem Genital herpes simplex, unspecified site A60.00 Active 46536668 Problem Posttraumatic stress disorder F43.10 Active 21763462 Problem Localized edema R60.0 Active 239740813 Problem Hematuria R31.9 Active 63282286 Problem Anxiety F41.9 Active 37264256 Problem Vitamin D deficiency E55.9 Active 22671134 Problem Mixed hyperlipidemia E78.2 Active 087651746 Problem Gastroesophageal reflux disease, esophagitis presence not specified K21.9 Active 914027240 Problem Bipolar disorder F31.9 Active 03070977 Problem Primary insomnia F51.01 Active 353227552 Problem Essential hypertension I10 Active 44629746 Problem Mild intermittent asthma without complication J45.20 Active 073259487 Problem History of IBS Z87.19 Active 55062308610300 ALLERGIES Unknown Allergies SOCIAL HISTORY No smoking Hx information available PLAN OF CARE VITAL SIGNS MEDICATIONS Medication Instructions Dosage Frequency Start Date End Date Duration Status Lisinopril 40 mg Orally Once a day 1 tablet 24h 07 days Active RESULTS No Results PROCEDURES No Known procedures IMMUNIZATIONS No Known Immunizations
--- OUTSIDE RECORDS SUMMARY | 2017-04-02 14:07 | XMS REPORT ---
Author Author SOFIA WENDI Organization [facility] Address [address] [place] [address] Care Team Providers Care Motors And Controls Tester Name Role Phone MARIA EUGENIA BLACKHANY Unavailable PROBLEMS Type Condition ICD9-CM Code [id number] Code Onset Dates Condition Status SNOMED Code Problem Breast tenderness N64.4 Active 03942838 Problem Hidradenitis suppurativa L73.2 Active 68523760 Problem Depression F32.9 Active 56163440 Problem Acute right-sided low back pain with right-sided sciatica M54.41 Active 30233940 Problem Low back pain with sciatica, sciatica laterality unspecified, unspecified back pain laterality, unspecified chronicity M54.40 Active 533680841 Problem Tobacco use Z72.0 Active 345947312 Problem Genital herpes simplex, unspecified site A60.00 Active 41835390 Problem Posttraumatic stress disorder F43.10 Active 71295286 Problem Localized edema R60.0 Active 230567714 Problem Hematuria R31.9 Active 10614493 Problem Anxiety F41.9 Active 27192636 Problem Vitamin D deficiency E55.9 Active 34841598 Problem Mixed hyperlipidemia E78.2 Active 996193542 Problem Gastroesophageal reflux disease, esophagitis presence not specified K21.9 Active 651297435 Problem Bipolar disorder F31.9 Active 96320783 Problem Primary insomnia F51.01 Active 908468611 Problem Essential hypertension I10 Active 10853144 Problem Mild intermittent asthma without complication J45.20 Active 653598397 Problem History of IBS Z87.19 Active 62261387214523 ALLERGIES Unknown Allergies SOCIAL HISTORY No smoking Hx information available PLAN OF CARE VITAL SIGNS MEDICATIONS Medication Instructions Dosage Frequency Start Date End Date Duration Status Lisinopril 40 mg Orally Once a day 1 tablet 24h 30 days Active RESULTS No Results PROCEDURES No Known procedures IMMUNIZATIONS No Known Immunizations
--- OUTSIDE RECORDS SUMMARY | 2017-04-02 14:07 | XMS REPORT ---
Author Author RUBEN CARLSON Organization [facility] Address [address] [place] [address] Care Team Providers Care Service Unit Operator Oil Well Name Role Phone RUBEN CARLSON Unavailable PROBLEMS Type Condition ICD9-CM Code [id number] Code Onset Dates Condition Status SNOMED Code Problem Breast tenderness N64.4 Active 66198089 Problem Hidradenitis suppurativa L73.2 Active 67194096 Problem Depression F32.9 Active 29254716 Problem Acute right-sided low back pain with right-sided sciatica M54.41 Active 28073035 Problem Low back pain with sciatica, sciatica laterality unspecified, unspecified back pain laterality, unspecified chronicity M54.40 Active 498321949 Problem Tobacco use Z72.0 Active 387352668 Problem Genital herpes simplex, unspecified site A60.00 Active 38718652 Problem Posttraumatic stress disorder F43.10 Active 52482705 Problem Localized edema R60.0 Active 820564243 Problem Hematuria R31.9 Active 93043745 Problem Anxiety F41.9 Active 35083017 Problem Vitamin D deficiency E55.9 Active 82901420 Problem Mixed hyperlipidemia E78.2 Active 922698655 Problem Gastroesophageal reflux disease, esophagitis presence not specified K21.9 Active 541379065 Problem Bipolar disorder F31.9 Active 99762254 Problem Primary insomnia F51.01 Active 369503357 Problem Essential hypertension I10 Active 76431422 Problem Mild intermittent asthma without complication J45.20 Active 203833060 Problem History of IBS Z87.19 Active 31049235874186 ALLERGIES Substance Reaction Event Type Date Status Paxil suicidal Drug Allergy Jun, Active Morphine Sulfate hives Drug Allergy Jun, Active Hydrocodone-Acetaminophen rash Drug Allergy Jun, Active Bactrim DS break out in blisters Drug Allergy Jun, Active Amoxicillin hives Drug Allergy Jun, Active Latex rash Non Drug Allergy Jun, Active Abilify 2 Mg Tablet anger Non Drug Allergy Jun, Active SOCIAL HISTORY Never Assessed PLAN OF CARE Activity Details Follow Up with PCP Perez if not improving Reason: VITAL SIGNS Height 69 in 2016-06-30 Weight 283.0 lbs 2016-06-30 Temperature 98.2 degrees Fahrenheit 2016-06-30 Heart Rate 100 bpm 2016-06-30 Respiratory Rate 22 2016-06-30 Oximetry 99 % 2016-06-30 BMI 41.79 kg/m2 2016-06-30 Blood pressure systolic 120 mmHg 2016-06-30 Blood pressure diastolic 78 mmHg 2016-06-30 MEDICATIONS Medication Instructions Dosage Frequency Start Date End Date Duration Status Venlafaxine HCl 50 mg Orally Twice a day 2 tablets 12h October, 30 days Active Seroquel 100 MG Orally Once a day 1.5 tablet 24h May, 30 day(s ) Active Acyclovir 400 MG Orally 2 times a day 1 tablet 12h 90 days Active Hydrochlorothiazide 25 MG Orally Once a day 1 tablet 24h 90 days Active Lisinopril 40 mg Orally Once a day 1 tablet 24h 30 days Active Omeprazole 20 mg Orally Once a day 1 capsule 24h 90 days Active PredniSONE 50 MG Orally Once a day 1 tablet 24h Jun, Jun, 7 day(s) Active Neurontin 300 MG Orally two times a day 3 capsules 12h 13 Aug, 2014 30 days Active Mirtazapine 15 MG Orally Once a day 1 tablet at bedtime 24h 30 days Active ProAir HFA 108 (90 Base) MCG/ACT Inhalation every 4 hrs 2 puffs as needed 4h Jun, 1 month Active Azithromycin 250 MG Orally Once a day 2 tablets on the first day, then 1 tablet daily for 4 days 24h Jun, Jun, 5 day(s) Active Amitriptyline HCl 25 MG TAKE ONE TABLET BY MOUTH ONCE DAILY IN THE MORNING 30 Active RESULTS Name Result Date Reference Range INFLUENZA A & B (IN HOUSE) 2016-06-30 INFLUENZA A Negative INFLUENZA B Negative Control + Lot # [id number] Exp date 12/08/2017 STREP A (IN HOUSE) 2016-06-30 STREP A Negative Control + Lot # [id number] Exp date 05/11/2017 PROCEDURES Procedure Date Ordered Result Body Site MEASURE BLOOD OXYGEN LEVEL Jun 30, 2016 INFLUENZA ASSAY W/OPTIC Jun 30, 2016 STREP A ASSAY W/OPTIC Jun 30, 2016 IMMUNIZATIONS No Known Immunizations MEDICAL (GENERAL) HISTORY [...]
--- OUTSIDE RECORDS SUMMARY | 2017-04-02 14:08 | XMS REPORT ---
Author Author SOFIA WENDI Organization [facility] Address [address] [place] [address] Care Team Providers Care Municipal Maintenance Worker Name Role Phone MARIA EUGENIA BLACKHANY Unavailable PROBLEMS Type Condition ICD9-CM Code [id number] Code Onset Dates Condition Status SNOMED Code Problem Breast tenderness N64.4 Active 16813708 Problem Hidradenitis suppurativa L73.2 Active 87618930 Problem Depression F32.9 Active 86556295 Problem Acute right-sided low back pain with right-sided sciatica M54.41 Active 82281583 Problem Low back pain with sciatica, sciatica laterality unspecified, unspecified back pain laterality, unspecified chronicity M54.40 Active 837453186 Problem Tobacco use Z72.0 Active 688617891 Problem Genital herpes simplex, unspecified site A60.00 Active 91333151 Problem Posttraumatic stress disorder F43.10 Active 87340779 Problem Localized edema R60.0 Active 653317357 Problem Hematuria R31.9 Active 10922118 Problem Anxiety F41.9 Active 74783916 Problem Vitamin D deficiency E55.9 Active 34692005 Problem Mixed hyperlipidemia E78.2 Active 073353887 Problem Gastroesophageal reflux disease, esophagitis presence not specified K21.9 Active 069081902 Problem Bipolar disorder F31.9 Active 90894002 Problem Primary insomnia F51.01 Active 577012148 Problem Essential hypertension I10 Active 61740581 Problem Mild intermittent asthma without complication J45.20 Active 282084224 Problem History of IBS Z87.19 Active 59795524542237 ALLERGIES Unknown Allergies SOCIAL HISTORY No smoking Hx information available PLAN OF CARE VITAL SIGNS MEDICATIONS Medication Instructions Dosage Frequency Start Date End Date Duration Status Lisinopril 40 mg Orally Once a day 1 tablet 24h 18 days Active RESULTS No Results PROCEDURES No Known procedures IMMUNIZATIONS No Known Immunizations
--- OUTSIDE RECORDS SUMMARY | 2017-04-02 14:08 | XMS REPORT ---
Author Author SOFIA WENDI Organization [facility] Address [address] [place] [address] Care Team Providers Care Rigger Name Role Phone SOFIAMARIA EUGENIAWENDI Unavailable PROBLEMS Type Condition ICD9-CM Code [id number] Code Onset Dates Condition Status SNOMED Code Problem Breast tenderness N64.4 Active 62638230 Problem Hidradenitis suppurativa L73.2 Active 84867925 Problem Depression F32.9 Active 17532383 Problem Acute right-sided low back pain with right-sided sciatica M54.41 Active 33202440 Problem Low back pain with sciatica, sciatica laterality unspecified, unspecified back pain laterality, unspecified chronicity M54.40 Active 147693938 Problem Tobacco use Z72.0 Active 379690430 Problem Genital herpes simplex, unspecified site A60.00 Active 34044625 Problem Posttraumatic stress disorder F43.10 Active 07303614 Problem Localized edema R60.0 Active 569070103 Problem Hematuria R31.9 Active 47903104 Problem Anxiety F41.9 Active 22407421 Problem Vitamin D deficiency E55.9 Active 63694332 Problem Mixed hyperlipidemia E78.2 Active 270365476 Problem Gastroesophageal reflux disease, esophagitis presence not specified K21.9 Active 727576646 Problem Bipolar disorder F31.9 Active 39968597 Problem Primary insomnia F51.01 Active 471848867 Problem Essential hypertension I10 Active 87561842 Problem Mild intermittent asthma without complication J45.20 Active 266622149 Problem History of IBS Z87.19 Active [id number] ALLERGIES No Information SOCIAL HISTORY Never Assessed PLAN OF CARE VITAL SIGNS MEDICATIONS Medication Instructions Dosage Frequency Start Date End Date Duration Status Acyclovir 400 MG Orally 2 times a day 1 tablet 12h 90 days Active RESULTS No Results PROCEDURES No Known procedures IMMUNIZATIONS No Known Immunizations MEDICAL (GENERAL) HISTORY Type Description Date Medical History mycoplasma Medical History Essential hypertension, benign Medical History Other and unspecified hyperlipidemia Medical History Chest pain, unspecified- referred to Dr. Tineo nml echo 2014 Medical History Muscle weakness (generalized)- neg CALLUM, nml MG panel Surgical History hysterectomy - partial - still has ovaries 2003 Surgical History cholecystectomy 1997 Surgical History Right breast duct clearing 2010 Hospitalization History surgeries Hospitalization History pneumonia
--- OUTSIDE RECORDS SUMMARY | 2017-04-02 14:08 | XMS REPORT ---
Author Author CARLOS KEARNEY Organization [facility] Address Unknown Care Team Providers Care Pollution Control Chemist Name Role Phone CHRISTELCARLOS Unavailable PROBLEMS Type Condition ICD9-CM Code CHA16-LZ Code Onset Dates Condition Status SNOMED Code Problem History of IBS Z87.19 Active 10597123720036 Problem Hidradenitis suppurativa L73.2 Active 53615465 Problem Breast tenderness N64.4 Active 17783123 Problem Low back pain with sciatica, sciatica laterality unspecified, unspecified back pain laterality, unspecified chronicity M54.40 Active 567112086 Problem Acute right-sided low back pain with right-sided sciatica M54.41 Active 92367223 Problem Genital herpes simplex, unspecified site A60.00 Active 43210072 Problem Tobacco use Z72.0 Active 327001288 Problem Posttraumatic stress disorder F43.10 Active 00431549 Problem Localized edema R60.0 Active 057458367 Problem Hematuria R31.9 Active 06928814 Problem Anxiety F41.9 Active 93781238 Problem Vitamin D deficiency E55.9 Active 57951859 Problem Mixed hyperlipidemia E78.2 Active 891212235 Problem Mild intermittent asthma without complication J45.20 Active 705894043 Problem Primary insomnia F51.01 Active 398478482 Problem Bipolar disorder F31.9 Active 23926895 Problem Essential hypertension I10 Active 76226845 Problem Gastroesophageal reflux disease, esophagitis presence not specified K21.9 Active 574231954 Problem Depression F32.9 Active 67631837 ALLERGIES Substance Reaction Event Type Date Status Paxil suicidal Drug Allergy May, Active Morphine Sulfate hives Drug Allergy May, Active Hydrocodone-Acetaminophen rash Drug Allergy May, Active Bactrim DS break out in blisters Drug Allergy May, Active Amoxicillin hives Drug Allergy May, Active Latex rash Non Drug Allergy May, Active Abilify 2 Mg Tablet anger Non Drug Allergy May, Active SOCIAL HISTORY No smoking Hx information available PLAN OF CARE Activity Details Follow Up 3 Months Reason: VITAL SIGNS Height 69 in 2016-05-25 Weight 273.5 lbs 2016-05-25 Heart Rate 84 bpm 2016-05-25 Respiratory Rate 20 2016-05-25 BMI 40.38 kg/m2 2016-05-25 Blood pressure systolic 118 mmHg 2016-05-25 Blood pressure diastolic 74 mmHg 2016-05-25 MEDICATIONS Medication Instructions Dosage Frequency Start Date End Date Duration Status Albuterol Sulfate 90 mcg/actuation take 2 puffs by Inhalation route every 4 -6 hours as needed PRN cough or wheezing. Feb, 90 days Active Seroquel 100 MG Orally Once a day 1.5 tablet 24h May, 30 day(s ) Active Acyclovir 400 MG Orally 2 times a day 1 tablet 12h 90 days Active Clindamycin Phosphate 1 % Externally 2 times a day 1 application to affected area after washing 12h May, Active Mirtazapine 15 MG Orally Once a day 1 tablet at bedtime 24h 30 days Active Hydrochlorothiazide 25 MG Orally Once a day 1 tablet 24h 90 days Active Imitrex 100 MG Orally Once a day and repeat once more if headache reoccurs as needed 1 tablet as needed Apr, Active Venlafaxine HCl 50 mg Orally Twice a day 2 tablets 12h October, 30 days Active Amitriptyline HCl 50 MG TAKE ONE TABLET BY MOUTH AT BEDTIME 30 Active Omeprazole 20 mg Orally Once a day 1 capsule 24h 90 days Active Neurontin 300 MG Orally two times a day 3 capsules 12h 13 Aug, 2014 30 days Active Alprazolam 2 MG Orally - as needed Three times a day 1 tablet 8h 30 days Active RESULTS Name Result Date Reference Range URINE DRUG SCREEN (IN HOUSE) 2016-05-25 Lot # [id number] Exp date 12/2017 Control + COCAINE NEGATIVE AMPH NEGATIVE MTD NEGATIVE THC NEGATIVE OPIATE NEGATIVE BENZO POSITIVE PCP NEGATIVE BAR NEGATIVE OXY NEGATIVE MAMP NEGATIVE TCA BUP NEGATIVE MDMA NEGATIVE PROCEDURES Procedure Date Ordered Related Diagnosis Body Site DRUG SCREEN NON TLC DEVICES May 25, 2016 Office Visit, Est Pt., Level 3 May 25, 2016 IMMUNIZATIONS No Known Immunizations
== END 2017-04-02 13:59 | disposition home or self-care (01) ==
LOC: EDUNIT# 13:07 → ER 13:09
DX: M54.16 Radiculopathy, lumbar region (principal); F41.9 Anxiety disorder, unspecified; M48.061 Spinal stenosis, lumbar region without neurogenic claudication; F32.9 Major depressive disorder, single episode, unspecified; E78.00 Pure hypercholesterolemia, unspecified; I10 Essential (primary) hypertension; J45.909 Unspecified asthma, uncomplicated; Z90.710 Acquired absence of both cervix and uterus; Z87.81 Personal history of (healed) traumatic fracture
CPT/HCPCS: 99282

== ENCOUNTER 2017-10-15 00:49 | Emergency (ER) | payer SELFPAY ==
[~2017-10-15] VITALS: Ht 175.3 cm; Wt 117.9 kg
[~2017-10-15 00:49] MED LIST changes: +IBUP-1780 PO; +NAPR-915 PO; -NAPR500T3 PO; +OXYC-471 PO; +PRD20T PO; +QUET25TA73; +VNL75T
--- OUTSIDE RECORDS SUMMARY | 2017-10-15 01:00 | XMS REPORT ---
Author Author SOFIA WENDI Organization [facility] Address [address] [place] [address] Care Team Providers Care Securities Research Analyst Name Role Phone SOFIAMARIA EUGENIA ELIZABETHHANY Unavailable PROBLEMS Type Condition ICD9-CM Code PXU33-AP Code Onset Dates Condition Status SNOMED Code Problem Mixed hyperlipidemia E78.2 Active 258247264 Problem Vitamin D deficiency E55.9 Active 50102687 Problem Essential hypertension I10 Active 84677659 Problem Posttraumatic stress disorder F43.10 Active 46273904 Problem Mild intermittent asthma without complication J45.20 Active 453243238 Problem Generalized anxiety disorder F41.1 Active 13876168 Problem Gastroesophageal reflux disease, esophagitis presence not specified K21.9 Active 425518982 Problem Bipolar disorder, current episode mixed, moderate F31.62 Active 698168074 Problem Low back pain with sciatica, sciatica laterality unspecified, unspecified back pain laterality, unspecified chronicity M54.40 Active 972069114 Problem Panic disorder F41.0 Active 587439763 Problem Concussion without loss of consciousness, initial encounter S06.0X0A Active 97653797 Problem Nausea R11.0 Active 244766790 Problem Anxiety F41.9 Active 96557833 Problem Hematuria R31.9 Active 86511576 Problem Bipolar disorder F31.9 Active 35878400 Problem Multiple fractures T07.XXXA Active 520604558 Problem Acute right-sided low back pain with right-sided sciatica M54.41 Active 51060460 Problem Hospital discharge follow-up Z09 Active 388449094 Problem Hot flashes R23.2 Active 697366086 Problem History of IBS Z87.19 Active 37192070093875 Problem Breast tenderness N64.4 Active 80519629 Problem Primary insomnia F51.01 Active 586684403 Problem Hidradenitis suppurativa L73.2 Active 44322967 Problem Tobacco use Z72.0 Active 102380561 Problem Localized edema R60.0 Active 237888074 Problem Depression F32.9 Active 97283900 Problem Genital herpes simplex, unspecified site A60.00 Active 28298456 ALLERGIES No Information ENCOUNTERS Encounter Location Date Diagnosis [place] [address] [address] October, [place] [address] [place] [id number] [place] [address] 77909- 8455 Sep, Hospital discharge follow-up Z09 ; Concussion without loss of consciousness, initial encounter S06.0X0A and Nausea R11.0 [place] [address] [address]- [address] Sep, [place] [address] 77202- 0098 Sep, Panic disorder F41.0 [place] [address] 92478- 2825 Sep, [place] [address] [address]67- 0120 Sep, Well woman exam with routine gynecological exam Z01.419 ; Multiple fractures T07.XXXA ; Hot flashes R23.2 ; Essential hypertension I10 ; Mixed hyperlipidemia E78.2 ; Genital herpes simplex, unspecified site A60.00 ; Alkaline phosphatase elevation R74.8 ; Dysuria R30.0 ; Vitamin D deficiency E55.9 ; Tobacco use Z72.0 ; High risk sexual behavior Z72.51 and Encounter for immunization Z23 [place] [address] [place] [id number] [place] [address] 00774- 7337 Aug, Panic disorder F41.0 ; Generalized anxiety disorder F41.1 and Bipolar disorder, current episode mixed, moderate F31.62 [place] [address] [place] [id number] [place] [address] 86128- 6778 Aug, [place] [address] [place] [id number] [place] [address] 03019- 5540 Jul, Panic disorder F41.0 ; Generalized anxiety disorder F41.1 and Bipolar disorder, current episode mixed, moderate F31.62 [facility] [address] [address] 5158 Jul, [facility] [address] [place] [id number] [place] [address] 89256- 6726 Jul, [facility] [address] [address] 44[address] Jul, Effusion, right knee M25.461 ; Acute pain of right knee M25.561 and Acute pain of left knee M25.562 [facility] [address] [address] 3[address] Jun, Bipolar disorder, current episode mixed, moderate F31.62 ; Generalized anxiety disorder F41.1 and Panic disorder F41.0 [facility] [address] [address] 3773 May, Bipolar disorder, current episode mixed, moderate F31.62 ; Generalized anxiety disorder F41.1 and Panic disorder F41.0 [facility] [address] [address]- 0544 May, Bipolar disorder, current episode mixed, moderate F31.62 [facility] [address] [address]- 1683 May, Bipolar disorder, current episode mixed, moderate F31.62 [facility] [address] [place] [address] 36243- 2566 Apr, Bipolar disorder, current episode mixed, moderate F31.62 ; Generalized anxiety disorder F41.1 and Panic disorder F41.0 [facility] [address] [address]- 2894 Mar, [facility] [address] [address]- 5043 Mar, Bipolar disorder, current episode mixed, moderate F31.62 ; Generalized anxiety disorder F41.1 and Panic disorder F41.0 [facility] [address] [place] [id number] [place] [address] 54942- 3515 27 Feb, 2017 [facility] [address] 29598- 8153 22 Feb, 2017 Posttraumatic stress disorder F43.10 [place] [address] [place] [id number] [place] [address] 49720- 5889 20 Feb, 2017 Gastroesophageal reflux disease, esophagitis presence not specified K21.9 [facility] [address] 60584- 4608 13 Feb, 2017 [place] [address] 22908- 4852 06 Feb, 2017 Knee pain, right anterior M25.561 [place] [address] 40538- 7851 05 Feb, 2017 HSV (herpes simplex virus) infection B00.9 [place] [address] 48267- 6106 05 Feb, 2017 [place] [address] [place] [id number] [place] [address] 19949- 5390 Jan, [place] [address] 35243- 2660 Jan, Posttraumatic stress disorder F43.10 [place] [address] [place] [id number] [place] [address] 82292- 0473 Jan, Foot pain, left M79.672 [facility] [address] [place] [id number] [place] [address] 25417- 2432 Jan, [place] [address] 36768- 9060 Jan, Lumbar radiculopathy, acute M54.16 ; Muscle spasm of back M62.830 and Right hip pain M25.551 [place] [address] [place] [id number] [place] [address] 31110- 9293 Jan, Lumbar radiculopathy, acute M54.16 [facility] [address] [address]- 6839 Jan, [facility] [address] [place] [id number] [place] [address] 17444- 1026 Jan, [facility] [address] [place] [id number] [place] [address] 63308- 6782 Dec, Lumbar radiculopathy, acute M54.16 ; Acute renal insufficiency N28.9 and Muscle spasm of back M62.830 [facility] [address] [place] [id number] [place] [address] 28134- 7833 Dec, [facility] [address] [place] [id number] [place] [address] 50960- 8081 Dec, [place] [address] [place] [id number] [place] [address] 99910- 2501 Dec, [facility] [address] [place] [id number] [place] [address] 77011 -2212 Dec, Low back pain with sciatica, sciatica laterality unspecified, unspecified back pain laterality, unspecified chronicity M54.40 and Acute right-sided low back pain with right-sided sciatica M54.41 [place] [address] [place] [address] 60270- 4730 Dec, Posttraumatic stress disorder F43.10 [place] [address] [place] [id number] [place] [address] 50074- 0997 Dec, [place] [address] [place] [id number] [place] [address] 15135- 0935 Dec, Pain in right thigh M79.651 and Acute right-sided low back pain without sciatica M54.5 [facility] [address] [address]- 5279 Dec, Posttraumatic stress disorder F43.10 and Major depressive disorder, recurrent episode with anxious distress F33.9 [facility] [address] [place] [id number] [address] Dec, [facility] [address] [address]- 8342 Nov, [facility] [address] [address]- 2550 October, [facility] [address] [address]- 6151 October, [facility] [address] [place] [id number] [address]- 9274 October, Knee pain, right anterior M25.561 [facility] [address] [place] [id number] [place] [address] 64261- 0825 October, Knee pain, right anterior M25.561 [facility] [address] [address]- 8665 October, [facility] [address] [address]- 0516 October, [facility] [address] [address]- 2677 October, [facility] [address] [address] Sep, [facility] [address] [address]- 7407 Sep, [facility] [address] [address]- 9096 Sep, Essential hypertension I10 [facility] [address] [place] [id number] [address]- 5620 Sep, Essential hypertension I10 [facility] [address] [address]- 2717 Sep, [facility] [address] [place] [id number] [address]- 8989 Sep, Posttraumatic stress disorder F43.10 and Major depressive disorder, recurrent episode with anxious distress F33.9 [place] [address] [place] [id number] [place] [address] 68230- 9693 Sep, Multiple fractures T14.8 ; Alkaline phosphatase elevation R74.8 and Vitamin D deficiency E55.9 [place] [address] 55158- 0262 Sep, [place] [address] 94440- 1742 Sep, Elevated serum creatinine R79.89 ; Fracture of foot, left, closed, initial encounter S92.902A and Alkaline phosphatase elevation R74.8 [place] [address] 00122- 0082 Sep, Elevated serum creatinine R79.89 and Essential hypertension I10 [place] [address] 54901- 3957 Sep, [place] [address] 08610- 0948 Aug, Gastroesophageal reflux disease, esophagitis presence not specified K21.9 [place] [address] 92809- 7504 Aug, Essential hypertension I10 ; Fracture of foot, left, closed , initial encounter S92.902A and Alkaline phosphatase elevation R74.8 [place] [address] 77244- 9252 Jul, Genital herpes simplex, unspecified site A60.00 [place] [address] 69408- 0963 Jul, Essential hypertension I10 [place] [address] 60652- 9751 Jun, Cough R05 and Wheezing R06.2 [place] [address] 18360- 5035 Jun, Essential hypertension I10 [facility] [address] [place] [id number] [place] [address] 05989- 6856 May, Essential hypertension I10 [facility] [address] [place] [id number] [place] [address] 90068- 5517 May, Posttraumatic stress disorder F43.10 and Major depressive disorder, recurrent episode with anxious distress F33.9 [facility] [address] [place] [id number] [place] [address] 74731- 0637 Apr, [facility] [address] [place] [id number] [place] [address] 37520- 9920 Apr, [facility] [address] [place] [id number] [place] [address] 33467- 3082 Apr, [facility] [address] [place] [id number] [place] [address] 85055- 0363 Mar, [facility] [address] [place] [id number] [place] [address] 09315- 0028 Feb, [facility] [address] [place] [id number] [place] [address] 72445- 2421 Jan, [facility] [address] [place] [id number] [place] [address] 55430- 8360 Jan, Essential hypertension I10 ; Mixed hyperlipidemia E78.2 ; Gastroesophageal reflux disease, esophagitis presence not specified K21.9 ; Mild intermittent asthma without complication J45.20 ; Hidradenitis suppurativa L73.2 ; Migraine without status migrainosus, not intractable, unspecified migraine type G43.909 ; Genital herpes simplex, unspecified site A60.00 and Closed traumatic minimally displaced fracture of metatarsal bone of left foot S92.302A [facility] [address] [place] [id number] [place] [address] 29975 -9084 Jan, Localized edema R60.0 [facility] [address] [place] [id number] [place] [address] 81836- 4457 Dec, [facility] [address] [place] [address]- 1501 Dec, [facility] [address] [place] [id number] [place] [address] 29040- 0142 Dec, [facility] [address] [place] [id number] [place] [address] 35272 -2510 Dec, Cough R05 ; Tobacco dependence F17.200 and Costochondritis , acute M94.0 [facility] [address] [place] [id number] [place] [address] 59404- 4699 Dec, Major depression, recurrent F33.9 ; Bipolar disorder, unspecified F31.9 and Posttraumatic stress disorder F43.10 [place] [address] [place] [id number] [place] [address] 32831- 4866 Nov, [place] [address] [place] [id number] [place] [address] 22455- 5253 Nov, [facility] [address] [place] [id number] [place] [address] 70857- 0348 October, [facility] [address] [place] [id number] [place] [address] 19156 -4428 October, Acute upper respiratory infection, unspecified J06.9 [facility] [address] [place] [id number] [place] [address] 73844- 5262 October, [facility] [address] [place] [id number] [place] [address] 21728- 8388 Sep, Bipolar affective disorder, remission status unspecified F31.9 and Post-traumatic stress disorder F43.10 [facility] [address] [place] [address] 45723- 4024 Sep, Bipolar disorder, unspecified F31.9 ; Posttraumatic stress disorder F43.10 and Major depression, recurrent F33.9 [facility] [address] [place] [address] 77737- 4738 16 Aug, 2015 Edema R60.9 ; Fatigue R53.83 and Polydipsia R63.1 [place] [address] [address]- 9501 Aug, [facility] [address] [address]- 7175 Aug, [facility] [address] [address]- 1169 Jul, [facility] [address] [place] [id number] [place] [address] 41587- 1999 Jul, [facility] [address] [place] [id number] [place] [address] 70758- 9748 Jun, [facility] [address] [place] [id number] [place] [address] 66686- 6791 Jun, [facility] [address] [place] [id number] [place] [address] 33356- 9158 Jun, [facility] [address] [place] [id number] [place] [address] 06913- 2272 Jun, [facility] [address] [place] [address] 30799- 7248 May, Mixed hyperlipidemia E78.2 [place] [address] [place] [address] 79844- 5192 May, Well woman exam Z01.419 ; History of herpes simplex infection Z86.19 ; Papanicolaou smear Z12.4 ; History of depression Z86.59 ; History of anxiety Z86.59 ; Lipoma of other specified sites D17.79 ; Hidradenitis suppurativa L73.2 ; Routine screening for STI (sexually transmitted infection) Z11.3 and Tobacco use Z72.0 [place] [address] [place] [address] 69138- 1868 May, Hematuria R31.9 ; Essential hypertension I10 ; Pure hypercholesterolemia E78.0 and Hidradenitis L73.2 [place] [address] [place] [address] 92565- 5959 May, Upper respiratory symptom R09.89 and Allergic rhinitis J30.9 [facility] [address] [place] [address] [address]- 5394 May, [facility] [address] [place] [id number] [place] [address] 92042- 0734 May, [facility] [address] [place] [id number] [place] [address] 06691- 0475 May, Bipolar disorder, unspecified F31.9 ; Posttraumatic stress disorder F43.10 and Major depression, recurrent F33.9 [facility] [address] [place] [id number] [place] [address] 41839- 3109 May, [facility] [address] [place] [id number] [place] [address] 42386- 7082 May, [facility] [address] [place] [id number] [place] [address] 85077- 2789 Apr, [facility] [address] [place] [id number] [place] [address] 18109- 8473 Apr, [facility] [address] [place] [id number] [place] [address] 47249- 1737 Mar, [facility] [address] [place] [id number] [place] [address] 47510- 5376 Mar, [facility] [address] [place] [id number] [place] [address] 72835- 9948 Mar, [facility] [address] [place] [id number] [place] [address] 56903- 2818 18 Feb, 2015 Major depressive disorder, recurrent episode, moderate 296.32 and Post traumatic stress disorder (PTSD) 309.81 [facility] [address] [place] [id number] [place] [address] 64940- 9046 10 Feb, 2015 [facility] [address] [place] [id number] [place] [address] 92683- 6286 08 Feb, 2015 [facility] [address] [place] [id number] [place] [address] 19736- 6654 Jan, Cough 786.2 [facility] [address] [place] [address] 39116- 0773 Jan, Depression, major, recurrent, moderate 296.32 and Post traumatic stress disorder (PTSD) 309.81 [facility] [address] [place] [address] 83525- 1119 Jan, [facility] [address] [id number] [place] [address] 28566- 9622 Dec, [facility] [address] [place] [id number] [place] [address] 32382- 4389 Dec, Generalized anxiety disorder 300.02 and Depression, major, recurrent, moderate 296.32 [facility] [address] [place] [id number] [place] [address] 09749- 5684 Dec, [facility] [address] [place] [id number] [place] [address] 44351- 4889 Dec, High risk medication use V58.69 [facility] [id number] [place] [address] 51128- 2040 Dec, High risk medication use V58.69 [facility] [address] [place] [address] 01649- 3217 Dec, [facility] [address] [place] [address] 59601- 4522 Nov, Generalized anxiety disorder 300.02 and Major depressive disorder, recurrent episode, moderate 296.32 [facility] [address] [address] Nov, Dental examination V72.2 [facility] [id number] [place] [address] [id number] Nov, Dental examination V72.2 [facility] [address] [address]- 5706 Nov, [facility] [id number] [place] [address] [id number] Nov, Dental examination V72.2 [facility] [address] [id number] [id number] Nov, Dental examination V72.2 [facility] [address] [facility] [id number] [address]- 4526 October, Major depressive disorder, recurrent episode, moderate 296.32 and Generalized anxiety disorder 300.02 [facility] [address] [id number] [address]- 6526 October, [facility] [address] [facility] [id number] [place] [address]- 4857 October, [facility] [id number] [address]- 2466 October, [facility] [address] 2769 Sep, [facility] [id number] 7385 Sep, [facility] [id number] 2915 Aug, [facility] [id number]- 5306 17 Aug, 2014 [facility] [address] [facility] [id number] [place] [address]- 2076 Aug, [facility] [address] [facility] [id number] [place] [address]- 9617 Aug, [facility] [address] [facility] [id number] [place] [address]- 8989 Aug, [facility] [address] [facility] [id number] [place] [address]- 6586 Aug, [facility] [address] [facility] [id number] [place] [address]- 7626 Aug, [facility] [address] [facility] [id number] [place] [address]- 6196 16 Jul, 2014 [facility] [place] [facility] [address] [id number] [place] [address]- 1326 Jul, 2014 [facility] [place] [facility] [address] [id number] [place] [address] 2546 Jul, 2014 [facility] [place] [facility] [address] [id number] [place] [id number] Jul, 2014 [facility] [place] [facility] [address] [id number] [place] [address] Jul, 2014 [facility] [place] [facility] [address] [id number] [place] [address] Jul, 2014 [facility] [place] [facility] [address] [facility] [id number] [place] [address] Jul, 2014 [facility] [place] [facility] [address] [id number] [place] [address] Jul, 2014 [facility] [place] [facility] [address] [id number] [place] [address] Jul, 2014 [facility] [place] [facility] [address] [facility] [id number] [place] [address] Jun, [facility] [place] [facility] [address] [facility] [id number] [place] [address] Jun, [facility] [place] [facility] [address] [id number] [place] [address] Jun, [facility] [place] [facility] [address] [id number] [place] [address] Jun, [facility] [place] [facility] [address] [id number] [place] [address] Jun, [facility] [place] [facility] [address] [id number] [place] [address] Jun, [facility] [place] [facility] [address] [id number] [place] [address] Jun, [facility] [place] [facility] [address] [id number] [place] [address] Jun, [facility] [place] [facility] [address] [id number] [place] [address] Jun, [facility] [place] [facility] [address] [id number] [place] [address] Jun, [facility] [place] [facility] [address] [id number] [place] [address] Jun, [facility] [place] [facility] [address] [address] [id number] [place] [address] Jun, [facility] [place] [facility] [address] [id number] [place] [address] 7960 Jun, [facility] [place] [facility] [address] [id number] [place] [address]- 3776 Jun, [facility] [place] [facility] [address] [id number] [place] [address]- 2212 Jun, [facility] [place] [facility] [address] [id number] [place] [address]- 3568 Jun, [facility] [place] [facility] [address] [id number] [place] [address]- 7720 Jun, [facility] [place] [facility] [address] [id number] [address] 1565 Jun, [facility] [place] [facility] [address] [id number] [address] 9649 Jun, [facility] [place] [facility] [address] [id number] [place] [address]- 0143 Jun, [facility] [place] [facility] [address] [id number] [address] 5[address] Jun, [facility] [place] [facility] [address] [id number] [place] [address]- 8957 Jun, [facility] [place] [facility] [address] [id number] [place] [address]- 5121 Jun, [facility] [place] [facility] [address] [id number] [place] [address]- 0049 Jun, [facility] [place] [facility] [address] [id number] [place] [address]- 0016 Jun, [facility] [place] [facility] [address] [id number] [place] [address]- 4264 May, [facility] [place] [facility] [address] [id number] [place] [address]- 1343 May, [facility] [place] [facility] [address] [id number] [place] [address]- 9275 May, [facility] [place] [facility] [address] [id number] [place] [address]- 2783 May, [facility] [place] [facility] [address] [id number] [place] [address]- 6439 May, [facility] [place] [facility] [address] [id number] [place] [address]- 3541 May, [facility] [place] [facility] [address] [id number] [place] [address]- 8734 May, [facility] [place] [facility] [address] [id number] [place] [address]- 8656 May, [facility] [place] [facility] [address] [id number] [place] [address]- 5031 May, [facility] [place] [facility] [address] [id number] [place] [address]- 7245 May, [facility] [place] [facility] [address] [id number] [place] [address]- 3219 May, [facility] [place] [facility] [address] [id number] [place] [address]- 9032 May, [facility] [place] [facility] [address] [id number] [place] [address] May, [facility] [place] [facility] [address] [id number] [place] [address]- 5155 May, [facility] [place] [facility] [address] [id number] [place] [address]- 0374 May, [facility] [place] [facility] [address] [id number] [place] [address]- 9592 May, [facility] [place] [facility] [address] [id number] [place] [address]- 1329 May, [facility] [place] [facility] [address] [id number] [place] [address]- 5832 May, [facility] [place] [facility] [address] [id number] [place] [address]- 0017 Apr, [facility] [place] [facility] [address] [id number] [place] [address]- 5614 Apr, [facility] [place] [facility] [address] [id number] [place] [address]- 9536 Apr, [facility] [place] [facility] [address] [id number] [place] [address]- 8256 Apr, [facility] [place] [facility] [address] [id number] [place] [address]- 6400 Apr, [facility] [place] [facility] [address] [id number] [place] [address]- 3124 Apr, [facility] [place] [facility] [address] [id number] [place] [address]- 2292 Apr, [facility] [place] [facility] [address] [id number] [place] [address]- 0299 Apr, [facility] [place] [facility] [address] [id number] [place] [address]- 6202 Mar, [facility] [place] [facility] [address] [id number] [place] [address]- 2465 Mar, [facility] [place] [facility] [address] [id number] [place] [address]- 8304 Feb, [facility] [place] [facility] [address] [id number] [place] [address]- 5056 Feb, [facility] [place] [facility] [address] [id number] [place] [address]- 3716 Feb, [facility] [place] [facility] [address] [id number] [place] [address] 2546 Feb, [facility] [place] [facility] [address] [id number] [place] [address] 2549 Feb, 2013 [facility] [place] [facility] [address] [id number] [place] [address]- 7994 Feb, [facility] [place] [facility] [address] [id number] [place] [address]- 0092 Feb, [facility] [place] [facility] [address] [id number] [place] [address]- 5163 Feb, [facility] [place] [facility] [address] [id number] [place] [address]- 8583 Feb, [facility] [place] [facility] [address] [id number] [place] [address]- 6344 Feb, [facility] [place] [facility] [address] [id number] [place] [address]- 1235 Jan, [facility] [place] [facility] [address] [id number] [place] [address]- 6110 Jan, [facility] [place] [facility] [address] [id number] [place] [address]- 5244 Jan, [facility] [place] [facility] [address] [id number] [place] [address]- 6807 Jan, [facility] [place] [facility] [address] [id number] [place] [address]- 0129 Jan, [facility] [place] [facility] [address] [id number] [place] [address]- 0233 Jan, [facility] [place] [facility] [address] [id number] [place] [address]- 8554 Jan, [facility] [place] [facility] [address] [id number] [place] [address]- 5334 Jan, [facility] [place] [facility] [address] [id number] [place] [address]- 2836 Jan, [facility] [place] [facility] [address] [id number] [place] [address]- 8807 Jan, [facility] [place] [facility] [address] [id number] [place] [address]- 8535 Jan, [facility] [place] [facility] [address] [id number] [place] [address]- 1031 Jan, [facility] [place] [facility] [address] [id number] [place] [address]- 7334 Jan, [facility] [place] [facility] [address] [id number] [place] [address]- 9087 Dec, [facility] [place] [facility] [address] [id number] [place] [address]- 2186 Dec, [facility] [place] [facility] [address] [id number] [place] [address]- 1362 Dec, [facility] [place] [facility] [address] [id number] [place] [address]- 9562 Dec, [facility] [place] [facility] [address] [id number] [place] [address]- 8839 Dec, [facility] [place] [facility] [address] [id number] [place] [address]- 4078 Dec, [facility] [place] [facility] [address] [id number] [place] [address]- 2971 Dec, [facility] [place] [facility] [address] [id number] [place] [address]- 3016 Dec, [facility] [place] [facility] [address] [id number] [place] [address]- 7721 Dec, [facility] [place] [facility] [address] [id number] [place] [address]- 3436 Dec, [facility] [place] [facility] [address] [id number] [place] [address]- 1514 Dec, [facility] [place] [facility] [address] [id number] [place] [address]- 7515 Dec, [facility] [place] [facility] [address] [id number] [place] [address]- 0519 Dec, [facility] [place] [facility] [address] [id number] [place] [address]- 8020 Dec, [facility] [place] [facility] [address] [id number] [place] [address]- 6381 Nov, [facility] [place] [facility] [address] [id number] [place] [address]- 5128 Nov, [facility] [place] [facility] [address] [id number] [place] [address]- 9445 Nov, [facility] [place] [facility] [address] [id number] [place] [address]- 2624 Nov, [facility] [place] [facility] [address] [id number] [place] [address]- 2431 Nov, [facility] [place] [facility] [address] [id number] [place] [address]- 3006 Nov, [facility] [place] [facility] [address] [id number] [place] [address]- 6485 Nov, [facility] [place] [facility] [address] [id number] [place] [address]- 5861 Nov, [facility] [place] [facility] [address] [id number] [place] [address]- 7698 October, [facility] [place] [facility] [address] [id number] [place] [address]- 1953 October, [facility] [place] [facility] [address] [id number] [address]- 3919 October, [facility] [address] [id number] [place] [address]- 9360 October, [facility] [place] [facility] [address] [id number] [place] [address]- 5522 October, [facility] [place] [facility] [address] [id number] [place] [address]- 2191 October, [facility] [place] [facility] [address] [id number] [place] [address]- 4598 October, [facility] [place] [facility] [address] [id number] [place] [address]- 3021 October, [facility] [place] [facility] [address] [id number] [place] [address]- 5476 October, [facility] [address] [id number] [place] [address]- 8700 October, [facility] [place] [facility] [address] [id number] [place] [address]- 8438 October, [facility] [place] [facility] [address] [id number] [place] [address]- 5815 October, [facility] [place] [facility] [address] [id number] [place] [address]- 3547 October, [facility] [place] [facility] [address] [id number] [place] [address]- 0887 October, [facility] [place] [facility] [address] [id number] [place] [address]- 4792 October, [facility] [place] [facility] [address] [id number] [place] [address]- 8101 October, [facility] [place] [facility] [address] [id number] [place] [address]- 9925 Sep, [facility] [place] [facility] [address] [id number] [place] [address]- 0413 Sep, [facility] [place] [facility] [address] [id number] [place] [address]- 1332 Sep, [facility] [place] [facility] [address] [id number] [place] [address]- 6341 Sep, [facility] [place] [facility] [address] [id number] [place] [address]- 2005 Sep, [facility] [place] [facility] [address] [id number] [place] [address]- 9545 Sep, [facility] [place] [facility] [address] [id number] [place] [address]- 9894 Sep, [facility] [place] [facility] [address] [id number] [place] [address]- 8805 Sep, [facility] [place] [facility] [address] [id number] [place] [address]- 6608 Sep, [facility] [place] [facility] [address] [id number] [place] [address]- 5046 Sep, [facility] [place] [facility] [address] [id number] [place] [address]- 6541 Sep, [facility] [place] [facility] [address] [id number] [place] [address]- 7774 Sep, [facility] [place] [facility] [address] [id number] [place] [address]- 6535 Sep, [facility] [place] [facility] [address] [id number] [place] [address]- 5316 Sep, [facility] [place] [facility] [address] [id number] [place] [address]- 9599 Sep, [facility] [place] [facility] [address] [id number] [place] [address]- 8673 Sep, [facility] [place] [facility] [address] [id number] [place] [address]- 3537 Sep, [facility] [place] [facility] [address] [id number] [place] [address]- 6331 Sep, [facility] [place] [facility] [address] [id number] [place] [address]- 9622 Sep, [facility] [place] [facility] [address] [id number] [place] [address]- 9546 Aug, [facility] [place] [facility] [address] [facility] [id number] [place] [address]- 6175 Aug, [facility] [place] [facility] [address] [id number] [place] [address]- 3140 Aug, [facility] [place] [facility] [address] [id number] [place] [address]- 2389 Aug, [facility] [place] [facility] [address] [id number] [place] [address]- 9348 Jul, [facility] [place] [facility] [address] [id number] [place] [address]- 0962 Jul, [facility] [place] [facility] [address] [id number] [place] [address]- 6772 Jul, [facility] [place] [facility] [address] [id number] [place] [address]- 5878 Jul, [facility] [place] [facility] [address] [facility] [id number] [place] [address]- 9298 Jul, [facility] [place] [facility] [address] [facility] [id number] [place] [address]- 3248 Jul, [facility] [place] [facility] [address] [facility] [id number] [place] [address]- 4309 Jul, [facility] [place] [facility] [address] [facility] [id number] [place] [address]- 4968 Jul, [facility] [place] [facility] [address] [facility] [id number] [place] [address]- 1602 Jul, [facility] [place] [facility] [address] [facility] [id number] [place] [address]- 7018 Jul, [facility] [place] [facility] [address] [id number] [place] [address]- 2748 Jul, [facility] [place] [facility] [address] [id number] [place] [address]- 2257 Jul, [facility] [place] [facility] [address] [id number] [place] [address]- 9507 Jun, [facility] [place] [facility] [address] [id number] [place] [address]- 7484 Jun, [facility] [place] [facility] [address] [id number] [place] [address]- 1860 Jun, [facility] [place] [facility] [address] [id number] [place] [address]- 9942 Jun, [facility] [address] [id number] [place] [address]- 5441 Jun, [facility] [address] [id number] [place] [address]- 3422 Jun, [facility] [place] [facility] [address] [id number] [place] [address]- 1535 May, [facility] [place] [facility] [address] [id number] [place] [address]- 5916 May, [facility] [place] [facility] [address] [id number] [place] [address]- 1973 Apr, [facility] [place] [facility] [address] [id number] [place] [address]- 5979 Apr, [facility] [place] [facility] [address] [id number] [place] [address]- 5669 Apr, [facility] [place] [facility] [address] [id number] [place] [address]- 3629 Apr, [facility] [place] [facility] [address] [id number] [place] [address]- 2714 Apr, [facility] [place] [facility] [address] [id number] [place] [address]- 7932 18 Apr, 2013 [facility] [place] [facility] [address] [id number] [place] [address]- 7457 17 Apr, 2013 [facility] [place] [facility] [address] [id number] [place] [address]- 0843 15 Apr, 2013 [facility] [place] [facility] [address] [id number] [place] [address]- 8950 15 Apr, 2013 [facility] [place] [facility] [address] [id number] [address]- 9667 15 Apr, 2013 [facility] [place] [facility] [address] [id number] [place] [address]- 3748 15 Apr, 2013 [facility] [place] [facility] [address] [id number] [place] [address]- 6939 Apr, [facility] [place] [facility] [address] [id number] [place] [address]- 5160 Apr, [facility] [place] [facility] [address] [id number] [place] [address]- 5531 31 Mar, 2013 [facility] [place] [facility] [address] [id number] [place] [address]- 0189 31 Mar, 2013 [facility] [place] [facility] [address] [id number] [place] [address]- 4789 25 Mar, 2013 [facility] [place] [facility] [address] [id number] [address]- 7228 25 Mar, 2013 [facility] [place] [facility] [address] [id number] [address]- 0337 17 Mar, 2013 [facility] [place] [facility] [address] [id number] [place] [address]- 4099 17 Mar, 2013 [facility] [place] [facility] [address] [id number] [place] [address]- 7230 14 Mar, 2013 [facility] [place] [facility] [address] [id number] [place] [address]- 2999 14 Mar, 2013 [facility] [place] [facility] [address] [id number] [place] [address]- 4112 Mar, [facility] [address] [id number] [place] [address]- 6824 Mar, [facility] [place] [facility] [address] [id number] [place] [address]- 9006 Mar, [facility] [address] [id number] [place] [address]- 0157 30 Feb, 2013 [facility] [place] [facility] [address] [id number] [place] [address]- 1550 28 Feb, 2013 [facility] [address] [id number] [place] [address]- 2339 27 Feb, 2013 [facility] [place] [facility] [address] [id number] [place] [address]- 8026 27 Feb, 2013 [facility] [address] [id number] [place] [address]- 4322 20 Feb, 2013 [facility] [address] [id number] [place] [address]- 3756 10 Feb, 2013 [facility] [place] [facility] [address] [id number] [place] [address]- 4567 Jan, [facility] [address] [id number] [place] [address]- 5512 Jan, [facility] [place] [facility] [address] [id number] [place] [address]- 5625 Dec, [facility] [place] [facility] [address] [id number] [place] [address] 2543 Dec, [facility] [place] [facility] [address] [id number] [place] [address]- 6510 Dec, [facility] [place] [facility] [address] [id number] [place] [address]- 2546 Dec, [facility] [place] [facility] [address] [id number] [place] [address]- 2616 Nov, [facility] [address] [id number] [place] [address]- 6913 Nov, [facility] [place] [facility] [address] [id number] [place] [address]- 4[address] Nov, [facility] [address] [id number] [place] [address] October, [facility] [place] [facility] [address] [id number] [place] [address] October, [facility] [address] [id number] [place] [address] October, [facility] [address] [id number] [place] [address] October, [facility] [address] [id number] [place] [address] October, [facility] [address] [id number] [place] [address] Sep, [facility] [place] [facility] [address] [id number] [place] [address] Sep, [facility] [address] [id number] [place] [address] Aug, [facility] [place] [facility] [address] [id number] [place] [address] Aug, [facility] [place] [facility] [address] [id number] [address] Aug, [facility] [place] [facility] [address] [id number] [place] [address] Aug, [facility] [place] [facility] [address] [id number] [place] [address] Aug, [facility] [place] [facility] [address] [id number] [place] [address] Jul, [facility] [place] [facility] [address] [id number] [place] [address]- [address] 11 Jul, 2012 [facility] [address] [id number] [place] [address] 06 Jul, 2012 [facility] [place] [facility] [address] [id number] [place] [address] Jul, [facility] [address] [id number] [place] [address] Jun, [facility] [place] [facility] [address] [id number] [place] [address] Jun, [facility] [address] [id number] [place] [address] Jun, [facility] [address] [id number] [place] [address] Jun, [facility] [address] [id number] [place] [address]- [address] Jun, [facility] [address] [id number] [place] [address]- [address] Jun, [facility] [address] [id number] [place] [address] Jun, [facility] [address] [id number] [place] [address] Jun, [facility] [address] [id number] [place] [address] Jun, [facility] [place] [facility] [address] [id number] [place] [address] Jun, [facility] [place] [facility] [address] [id number] [place] [address] Jun, [facility] [place] [facility] [address] [id number] [place] [address] May, [facility] [address] [id number] [place] [address] May, [facility] [place] [facility] [address] [id number] [place] [address] Apr, [facility] [place] [facility] [address] [id number] [place] [address] Apr, [facility] [place] [facility] [address] [id number] [place] [address] 47[address] Mar, [facility] [place] [facility] [id number] [place] [address], [place] [address]- [address] Mar, [facility] [place] [facility] [address] [id number] [place] [address] Mar, [facility] [place] [facility] [address] [id number] [place] [address] 1579 Mar, [facility] [place] [facility] [address] [id number] [place] [address] Mar, [facility] [place] [facility] [address] [id number] [place] [address] Mar, [facility] [place] [facility] [address] [id number] [place] [address] Mar, [facility] [place] [facility] [address] [id number] [place] [address]- 18[address] Mar, [facility] [place] [facility] [address] [id number] [place] [address] Mar, [facility] [place] [facility] [address] [id number] [place] [address] Feb, [facility] [place] [facility] [address] [id number] [place] [address] Jan, [facility] [place] [facility] [address] [id number] [place] [address]- [address] Jan, [facility] [place] [facility] [address] [id number] [place] [address]- 8065 Dec, [facility] [place] [facility] [address] [id number] [place] [address]- [address] Dec, [facility] [place] [facility] [address] [id number] [place] [address]- [address] Dec, [facility] [place] [facility] [address] [id number] [place] [address]- [address]267 Nov, [facility] [place] [facility] [address] [id number] [place] [address]- 7467 Nov, [facility] [place] [facility] [address] [id number] [place] [address]- 1016 Nov, [facility] [place] [facility] [address] [id number] [place] [address]- 6609 Nov, [facility] [place] [facility] [address] [id number] [place] [address]- [address] October, [facility] [place] [facility] [address] [id number] [place] [address] October, [facility] [place] [facility] [address] [id number] [place] [address]- [address]199 Sep, [facility] [place] [facility] [address] [id number] [place] [address]- [address] Sep, [facility] [place] [facility] [address] [id number] [place] [address]- [address] Aug, [facility] [place] [facility] [address] [id number] [place] [address]- [address] Jul, [facility] [place] [facility] [address] [id number] [place] [address]- 1408 Jul, [facility] [place] [facility] [address] [id number] [place] [address]- [address] Jul, [facility] [place] [facility] [address] [id number] [place] [address]- 2506 Jul, [facility] [place] [facility] [address] [id number] [place] [address]- [address] Jun, [facility] [place] [facility] [address] [id number] [place] [address]- [address] 15 May, 2011 [facility] [place] [facility] [address] [id number] [place] [address]- [address]127 15 May, 2011 [facility] [place] [facility] [address] [id number] [place] [address]- [address] 15 May, 2011 [facility] [place] [facility] [address] [id number] [place] [address]- 6671 13 May, 2011 [facility] [place] [facility] [address] [id number] [place] [address]- 8866 08 May, 2011 [facility] [place] [facility] [address] [id number] [place] [address]- 4597 14 Apr, 2011 [facility] [place] [facility] [address] [id number] [place] [address]- [address] 14 Apr, 2011 [facility] [place] [facility] [address] [id number] [place] [address]- 3424 14 Apr, 2011 [facility] [place] [facility] [address] [id number] [place] [address]- 8171 07 Apr, 2011 [facility] [place] [facility] [address] [id number] [place] [address]- 4254 02 Apr, 2011 [facility] [place] [facility] [address] [id number] [place] [address] 26 Mar, 2011 [facility] [place] [facility] [address] [id number] [place] [address] 25 Mar, 2011 [facility] [place] [facility] [address] [id number] [place] [address] 14 Mar, 2011 [facility] [place] [facility] [address] [id number] [place] [address] 14 Mar, 2011 [facility] [place] [facility] [address] [id number] [place] [address] 13 Mar, 2011 [facility] [place] [facility] [address] [id number] [place] [address] Mar, [facility] [address] [id number] [address] Mar, [facility] [id number] [address] Mar, [facility] [id number] [address] Feb, [facility] [id number] [place] [address] May, [facility] [id number] [address] May, [facility] [id number] [place] [address] May, [facility] [id number] [address] Apr, [facility] [id number] [address] Mar, IMMUNIZATIONS No Known Immunizations SOCIAL HISTORY Never Assessed REASON FOR VISIT Requests return call PLAN OF CARE VITAL SIGNS MEDICATIONS Unknown Medications RESULTS No Results PROCEDURES No Known procedures INSTRUCTIONS MEDICATIONS ADMINISTERED No Known Medications MEDICAL (GENERAL) HISTORY Type Description Date Medical [...] 2010 Hospitalization History surgeries Hospitalization History pneumonia Hospitalization History inpatient treatment, [facility] and [facility] PPD, dx bipolar mood disorder type I 2000 Hospitalization History inpatient [facility], SI 2006
[2017-10-15] MEDS ORDERED: HYDR25TA4 (01:03)
--- OUTSIDE RECORDS SUMMARY | 2017-10-15 01:03 | XMS REPORT ---
Author Author IVAN SEGUNDO Organization [facility] Address [address] [place] [address] Care Team Providers Care Certified Social Workers In Health Care Name Role Phone IVAN SEGUNDO Unavailable PROBLEMS Type Condition ICD9-CM Code GCQ83-PT Code Onset Dates Condition Status SNOMED Code Problem Mixed hyperlipidemia E78.2 Active 334317185 Problem Vitamin D deficiency E55.9 Active 57831544 Problem Essential hypertension I10 Active 72873318 Problem Posttraumatic stress disorder F43.10 Active 19837024 Problem Mild intermittent asthma without complication J45.20 Active 510304929 Problem Generalized anxiety disorder F41.1 Active 29335880 Problem Gastroesophageal reflux disease, esophagitis presence not specified K21.9 Active 690804845 Problem Bipolar disorder, current episode mixed, moderate F31.62 Active 272572067 Problem Low back pain with sciatica, sciatica laterality unspecified, unspecified back pain laterality, unspecified chronicity M54.40 Active 052366413 Problem Panic disorder F41.0 Active 162921815 Problem Concussion without loss of consciousness, initial encounter S06.0X0A Active 84693682 Problem Nausea R11.0 Active 871214102 Problem Anxiety F41.9 Active 49339359 Problem Hematuria R31.9 Active 76958507 Problem Bipolar disorder F31.9 Active 40022753 Problem Multiple fractures T07.XXXA Active 697395519 Problem Acute right-sided low back pain with right-sided sciatica M54.41 Active 56457050 Problem Hospital discharge follow-up Z09 Active 592845747 Problem Hot flashes R23.2 Active 438944875 Problem History of IBS Z87.19 Active 17520038657854 Problem Breast tenderness N64.4 Active 35951474 Problem Primary insomnia F51.01 Active 315320393 Problem Hidradenitis suppurativa L73.2 Active 36122716 Problem Tobacco use Z72.0 Active 486755573 Problem Localized edema R60.0 Active 543669505 Problem Depression F32.9 Active 32547128 Problem Genital herpes simplex, unspecified site A60.00 Active 73300281 ALLERGIES No Information ENCOUNTERS Encounter Location Date Diagnosis [place] [address] [address] October, [place] [address] [id number] [place] [address] 45494- 9973 Sep, Hospital discharge follow-up Z09 ; Concussion without loss of consciousness, initial encounter S06.0X0A and Nausea R11.0 [place] [address] [id number] [place] [address] 29044- 9207 Sep, [place] [address] [address]18- 7288 Sep, Panic disorder F41.0 [place] [address] 6[address]- 0291 Sep, [place] [address] [address] [id number] [place] [address] 86222- 0422 Sep, Well woman exam with routine gynecological exam Z01.419 ; Multiple fractures T07.XXXA ; Hot flashes R23.2 ; Essential hypertension I10 ; Mixed hyperlipidemia E78.2 ; Genital herpes simplex, unspecified site A60.00 ; Alkaline phosphatase elevation R74.8 ; Dysuria R30.0 ; Vitamin D deficiency E55.9 ; Tobacco use Z72.0 ; High risk sexual behavior Z72.51 and Encounter for immunization Z23 [place] [address] [address] [id number] [place] [address] 55238- 9538 Aug, Panic disorder F41.0 ; Generalized anxiety disorder F41.1 and Bipolar disorder, current episode mixed, moderate F31.62 [place] [address] [address] [id number] [place] [address] 47187- 9448 Aug, [place] [address] [address] [id number] [place] [address] 98803- 7281 Jul, Panic disorder F41.0 ; Generalized anxiety disorder F41.1 and Bipolar disorder, current episode mixed, moderate F31.62 [facility] [address], [place] [address] 279[address] Jul, [facility] [address], [place] [address] 6166 Jul, [facility] [address], [place] [address]- 6098 Jul, Effusion, right knee M25.461 ; Acute pain of right knee M25.561 and Acute pain of left knee M25.562 [facility] [address], [place] [address] 3762 Jun, Bipolar disorder, current episode mixed, moderate F31.62 ; Generalized anxiety disorder F41.1 and Panic disorder F41.0 [facility] [address], [place] [address]- 8228 May, Bipolar disorder, current episode mixed, moderate F31.62 ; Generalized anxiety disorder F41.1 and Panic disorder F41.0 [facility] [address] [place] [address] 51060- 5046 May, Bipolar disorder, current episode mixed, moderate F31.62 [facility] [address], [place] [address]- 3568 May, Bipolar disorder, current episode mixed, moderate F31.62 [facility] [address], [place] [address]- 6722 Apr, Bipolar disorder, current episode mixed, moderate F31.62 ; Generalized anxiety disorder F41.1 and Panic disorder F41.0 [facility] [address], [place] [address]- 3630 Mar, [facility] [address] [place] [address] 88724- 7653 Mar, Bipolar disorder, current episode mixed, moderate F31.62 ; Generalized anxiety disorder F41.1 and Panic disorder F41.0 [facility] [address] [address] [id number] [place] [address] 52031- 8764 27 Feb, 2017 [facility] [address] [place] [id number] [place] [address] 93792- 7604 22 Feb, 2017 Posttraumatic stress disorder F43.10 [facility] [address] [address] [id number] [place] [address] 58026- 0977 20 Feb, 2017 Gastroesophageal reflux disease, esophagitis presence not specified K21.9 [facility] [address] [place] [id number] [place] [address] 76041- 4753 13 Feb, 2017 [facility] [address] [place] [id number] [place] [address] 02377- 9680 06 Feb, 2017 Knee pain, right anterior M25.561 [facility] [address] [place] [id number] [place] [address] 97545- 0828 05 Feb, 2017 HSV (herpes simplex virus) infection B00.9 [place] [address] [address] [id number] [place] [address] 53286- 7670 05 Feb, 2017 [facility] [address] [place] [id number] [place] [address] 90294- 6141 Jan, [place] [address] [place] [address] [id number] [place] [address] 11997- 8362 Jan, Posttraumatic stress disorder F43.10 [place] [address] [place] [id number] [place] [address] 97868- 6658 Jan, Foot pain, left M79.672 [facility] [address] [place] [address] [id number] [place] [address] 56768- 5731 Jan, [facility] [address] [place] [id number] [place] [address] 37646- 7072 Jan, Lumbar radiculopathy, acute M54.16 ; Muscle spasm of back M62.830 and Right hip pain M25.551 [facility] [address] [place] [id number] [place] [address] 91355- 2745 Jan, Lumbar radiculopathy, acute M54.16 [facility] [address], [place] [address]- 0816 Jan, [facility] [address] [place] [id number] [place] [address] 82919- 1731 Jan, [facility] [address] [place] [address] [id number] [place] [address] 42796- 9752 Dec, Lumbar radiculopathy, acute M54.16 ; Acute renal insufficiency N28.9 and Muscle spasm of back M62.830 [facility] [address] [place] [id number] [place] [address] 39061- 9186 Dec, [facility] [address] [place] [id number] [place] [address] 69412- 8275 Dec, [place] [address] [place] [address] [id number] [place] [address] 31869- 3969 Dec, [facility] [address] [address] [id number] [place] [address] 88060 -2400 Dec, Low back pain with sciatica, sciatica laterality unspecified, unspecified back pain laterality, unspecified chronicity M54.40 and Acute right-sided low back pain with right-sided sciatica M54.41 [facility] [address] [place] [address] 98244- 0477 Dec, Posttraumatic stress disorder F43.10 [place] [address] [place] [id number] [place] [address] 08606- 3914 Dec, [place] [address] [place] [id number] [place] [address] 46949- 9416 Dec, Pain in right thigh M79.651 and Acute right-sided low back pain without sciatica M54.5 [facility] [address] [place] [address] [id number] [place] [address] 94582- 9818 Dec, Posttraumatic stress disorder F43.10 and Major depressive disorder, recurrent episode with anxious distress F33.9 [facility] [address] [place] [id number] [address] Dec, [facility] [address], [place] [address]- 4423 Nov, [facility] [address] [address]67 October, [facility] [address], [place] [address]- 1981 October, [facility] [address] [place] [address] [id number] 1213 October, Knee pain, right anterior M25.561 [facility] [address] [place] [id number] [place] [address] 606521- 8222 October, Knee pain, right anterior M25.561 [facility] [address], [place] [address]- 8320 October, [facility] [address] [place] [id number] [place] [address]- 0517 October, [facility] [address], [place] [address]- 5504 October, [facility] [address], [place] [address] -2431 Sep, [facility] [address], [place] [address]- 2357 Sep, [facility] [address], [place] [address]- 3550 Sep, Essential hypertension I10 [facility] [address] [place] [id number], [place] [address]- 0992 Sep, Essential hypertension I10 [facility] [address], [place] [address]- 1597 Sep, [facility] [address] [place] [id number], [place] [address]- 3469 Sep, Posttraumatic stress disorder F43.10 and Major depressive disorder, recurrent episode with anxious distress F33.9 [place] [address] [place] [id number] [place] [address] 27792- 3141 Sep, Multiple fractures T14.8 ; Alkaline phosphatase elevation R74.8 and Vitamin D deficiency E55.9 [place] [address] [place] [id number] [place] [address] 94018- 9541 Sep, [place] [address] 48574- 3765 Sep, Elevated serum creatinine R79.89 ; Fracture of foot, left, closed, initial encounter S92.902A and Alkaline phosphatase elevation R74.8 [place] [address] 91472- 5520 Sep, Elevated serum creatinine R79.89 and Essential hypertension I10 [place] [address] 69324- 1190 Sep, [place] [address] 41407- 6303 Aug, Gastroesophageal reflux disease, esophagitis presence not specified K21.9 [place] [address] 18687- 5654 Aug, Essential hypertension I10 ; Fracture of foot, left, closed , initial encounter S92.902A and Alkaline phosphatase elevation R74.8 [place] [address] 80553- 2829 Jul, Genital herpes simplex, unspecified site A60.00 [place] [address] 21176- 2000 Jul, Essential hypertension I10 [place] [address] 50352- 7222 Jun, Cough R05 and Wheezing R06.2 [place] [address] 98889- 7977 Jun, Essential hypertension I10 [facility] [address] [place] [address] 76020- 3621 May, Essential hypertension I10 [facility] [address] [place] [id number] [place] [address] 04398- 6586 May, Posttraumatic stress disorder F43.10 and Major depressive disorder, recurrent episode with anxious distress F33.9 [facility] [address] [place] [id number] [place] [address] 10989- 3186 Apr, [facility] [address] [place] [id number] [place] [address] 96786- 3708 Apr, [facility] [address] [place] [id number] [place] [address] 52046- 8849 Apr, [facility] [address] [place] [id number] [place] [address] 67351- 1328 Mar, [facility] [address] [place] [id number] [place] [address] 52639- 1921 Feb, [facility] [address] [place] [id number] [place] [address] 16350- 7761 Jan, [facility] [address] [place] [id number] [place] [address] 90889- 4256 Jan, Essential hypertension I10 ; Mixed hyperlipidemia E78.2 ; Gastroesophageal reflux disease, esophagitis presence not specified K21.9 ; Mild intermittent asthma without complication J45.20 ; Hidradenitis suppurativa L73.2 ; Migraine without status migrainosus, not intractable, unspecified migraine type G43.909 ; Genital herpes simplex, unspecified site A60.00 and Closed traumatic minimally displaced fracture of metatarsal bone of left foot S92.302A [facility] [address] [place] [id number] [place] [address] 89980 -0339 Jan, Localized edema R60.0 [facility] [address] [place] [address] 37570- 6473 Dec, [facility] [address] [place] [id number] [place] [address] 72200- 2570 Dec, [facility] [address] [place] [id number] [place] [address] 65345- 1541 Dec, [facility] [address] [place] [id number] [place] [address] 65557 -8126 Dec, Cough R05 ; Tobacco dependence F17.200 and Costochondritis , acute M94.0 [place] [address] 34850- 4502 Dec, Major depression, recurrent F33.9 ; Bipolar disorder, unspecified F31.9 and Posttraumatic stress disorder F43.10 [place] [address] 73393- 1866 Nov, [place] [address] [place] [id number] [place] [address] 34686- 1243 Nov, [facility] [address] [place] [id number] [place] [address] 48093- 5989 October, [facility] [address] [place] [id number] [place] [address] 41763 -2126 October, Acute upper respiratory infection, unspecified J06.9 [facility] [address] [place] [id number] [place] [address] 17505- 0551 October, [facility] [address] [place] [id number] [place] [address] 70264- 2940 Sep, Bipolar affective disorder, remission status unspecified F31.9 and Post-traumatic stress disorder F43.10 [facility] [address] [place] [id number] [place] [address] 17790- 3117 Sep, Bipolar disorder, unspecified F31.9 ; Posttraumatic stress disorder F43.10 and Major depression, recurrent F33.9 [place] [address] [place] [address] 39731- 8391 Aug, Edema R60.9 ; Fatigue R53.83 and Polydipsia R63.1 [place] [address], [place] [address]- 0123 Aug, [facility] [address], [place] [address]- 6417 Aug, [facility] [address], [place] [address]- 9812 Jul, [facility] [address] [place] [address] 93620- 2661 Jul, [facility] [address] [place] [address] 32935- 3954 Jun, [facility] [address] [place] [id number] [place] [address] 29189- 2465 Jun, [facility] [address] [place] [id number] [place] [address] 48420- 0664 Jun, [facility] [address] [place] [id number] [place] [address] 22165- 8815 Jun, [facility] [address] [place] [address] 91270- 5295 May, Mixed hyperlipidemia E78.2 [place] [address] [place] [address] 97270- 3425 May, Well woman exam Z01.419 ; History of herpes simplex infection Z86.19 ; Papanicolaou smear Z12.4 ; History of depression Z86.59 ; History of anxiety Z86.59 ; Lipoma of other specified sites D17.79 ; Hidradenitis suppurativa L73.2 ; Routine screening for STI (sexually transmitted infection) Z11.3 and Tobacco use Z72.0 [place] [address] [place] [id number] [place] [address] 57341- 8094 May, Hematuria R31.9 ; Essential hypertension I10 ; Pure hypercholesterolemia E78.0 and Hidradenitis L73.2 [place] [address] [place] [address] 30101- 7849 May, Upper respiratory symptom R09.89 and Allergic rhinitis J30.9 [facility] [address], [place] [address]- 5825 May, [facility] [address] [place] [id number] [place] [address] 30342- 9691 May, [facility] [address] [place] [id number] [place] [address] 84398- 0255 May, Bipolar disorder, unspecified F31.9 ; Posttraumatic stress disorder F43.10 and Major depression, recurrent F33.9 [facility] [address] [place] [id number] [place] [address] 48537- 4604 May, [facility] [address] [place] [id number] [place] [address] 37563- 1473 May, [facility] [address] [place] [id number] [place] [address] 99628- 5489 Apr, [facility] [address] [place] [address] [id number] [place] [address] 83699- 4042 Apr, [facility] [address] [place] [address] [id number] [place] [address] 44695- 0014 Mar, [facility] [address] [place] [id number] [place] [address] 02011- 4781 Mar, [facility] [address] [place] [address] [id number] [place] [address] 18970- 0808 Mar, [facility] [address] [place] [address] [id number] [place] [address] 85718- 9465 18 Feb, 2015 Major depressive disorder, recurrent episode, moderate 296.32 and Post traumatic stress disorder (PTSD) 309.81 [facility] [address] [place] [id number] [place] [address] 16845- 2911 10 Feb, 2015 [facility] [address] [place] [id number] [place] [address] 04811- 0887 08 Feb, 2015 [facility] [address] [place] [id number] [place] [address] 55963- 8245 Jan, Cough 786.2 [facility] [address] [place] [address] 33382- 4479 Jan, Depression, major, recurrent, moderate 296.32 and Post traumatic stress disorder (PTSD) 309.81 [facility] [address], [place] [address]- 3895 Jan, [facility] [address] [place] [address] [id number] [place] [address] 04893- 7860 Dec, [facility] [id number] [place] [address] 18359- 9937 Dec, Generalized anxiety disorder 300.02 and Depression, major, recurrent, moderate 296.32 [facility] [address] [place] [id number] [place] [address] 80954- 0445 Dec, [facility] [id number] [place] [address] 30811- 7545 Dec, High risk medication use V58.69 [facility] [address] [id number] [place] [address] 85171- 4679 Dec, High risk medication use V58.69 [facility] [address] [place] [address] 11277- 7757 Dec, [facility] [address], [place] [address]- 9762 Nov, Generalized anxiety disorder 300.02 and Major depressive disorder, recurrent episode, moderate 296.32 [facility] [address] [address] Nov, Dental examination V72.2 [facility] [id number] [place] [address] [id number] Nov, Dental examination V72.2 [facility] [address] [place] [address] 16052- 0526 Nov, [facility] [id number] [place] [address] [id number] Nov, Dental examination V72.2 [facility] [address] [id number] [id number] Nov, Dental examination V72.2 [facility] [address] [facility] [id number] [address]- 2906 October, Major depressive disorder, recurrent episode, moderate 296.32 and Generalized anxiety disorder 300.02 [facility] [address] [id number], [place] [address]- 1176 October, [facility] [address] [facility] [id number], [place] [address]- 5554 October, [facility] [address] [facility] [id number], [place] [address] 2546 October, [facility] [id number] 8625 Sep, [facility] [id number] 8218 Sep, [facility] [address] [facility] [id number], [place] [address]- 8870 Aug, [facility] [address] [facility] [id number], [place] [address]- 4616 17 Aug, 2014 [facility] [address] [facility] [id number] 3716 Aug, [facility] [address] [facility] [id number], [place] [address]- 7215 Aug, [facility] [address] [facility] [id number], [place] [address]- 5614 Aug, [facility] [address] [facility] [id number], [place] [address]- 4696 Aug, [facility] [address] [facility] [id number], [place] [address] 2546 Aug, [facility] [address] [facility] [id number] [place] [address]- 6463 16 Jul, 2014 [facility] [place] [facility] [address] [id number] [place] [address]- 2586 Jul, 2014 [facility] [place] [facility] [address] [id number] [place] 4616 Jul, 2014 [facility] [place] [facility] [address] [id number] [place] [address]- 3806 Jul, 2014 [facility] [place] [facility] [address] [id number] [place] [address]- 2541 Jul, 2014 [facility] [place] [facility] [address] [id number] [place] [address]- 1983 Jul, 2014 [facility] [place] [facility] [address] [id number] [place] [address]- 4228 Jul, 2014 [facility] [place] [facility] [address] [id number] [place] [address]- 6539 Jul, 2014 [facility] [place] [facility] [address] [id number] [place] [address]- 1419 Jul, [facility] [place] [facility] [address] [id number] [place] [address]- 7428 Jun, [facility] [place] [facility] [address] [facility] [id number] [place] [address]- 9847 Jun, [facility] [place] [facility] [address] [id number] [place] [address] Jun, [facility] [place] [facility] [address] [id number] [place] [address] Jun, [facility] [place] [facility] [address] [id number] [place] [address] Jun, [facility] [place] [facility] [address] [id number] [place] [address] Jun, [facility] [place] [facility] [address] [id number] [place] [address] Jun, [facility] [place] [facility] [address] [id number] [place] [address] Jun, [facility] [place] [facility] [address] [id number] [place] [address] Jun, [facility] [place] [facility] [address] [id number] [place] [address] Jun, [facility] [place] [facility] [address] [id number] [place] [address] Jun, [facility] [place] [facility] [address] [id number] [place] [address] Jun, [facility] [place] [facility] [address] [id number] [place] [address] Jun, [facility] [place] [facility] [address] [id number] [place] [address] Jun, [facility] [place] [facility] [address] [id number] [place] [address] Jun, [facility] [place] [facility] [address] [id number] [place] [address] Jun, [facility] [place] [facility] [address] [id number] [place] [address] Jun, [facility] [place] [facility] [address] [id number] [place] [address] Jun, [facility] [place] [facility] [address] [id number], [place] [address] Jun, [facility] [place] [facility] [address] [id number] [place] [address] Jun, [facility] [place] [facility] [address] [id number] [place] [address] Jun, [facility] [place] [facility] [address] [id number] [place] [address] Jun, [facility] [place] [facility] [address] [id number] [place] [address] 9337 Jun, [facility] [place] [facility] [address] [id number] [place] [address] 5917 Jun, [facility] [place] [facility] [address] [id number] [place] [address]- 6891 Jun, [facility] [place] [facility] [address] [id number] [place] [address] 5310 May, [facility] [place] [facility] [address] [id number] [place] [address] 7389 May, [facility] [place] [facility] [address] [id number] [place] [address] 3142 May, [facility] [place] [facility] [address] [id number] [place] [address]- 2655 May, [facility] [place] [facility] [address] [id number] [place] [address]- 9628 May, [facility] [place] [facility] [address] [id number] [place] [address]- 3307 May, [facility] [place] [facility] [address] [id number] [place] [address]- 9750 May, [facility] [place] [facility] [address] [id number] [place] [address]- 2846 May, [facility] [place] [facility] [address] [id number] [place] [address]- 7292 May, [facility] [place] [facility] [address] [id number] [place] [address]- 7845 May, [facility] [place] [facility] [address] [id number] [place] [address]- 3913 May, [facility] [place] [facility] [address] [id number] [place] [address]- 1393 May, [facility] [place] [facility] [address] [id number] [place] [address]- 3840 08 May, 2014 [facility] [place] [facility] [address] [id number] [place] [address]- 7883 May, [facility] [place] [facility] [address] [id number] [place] [address]- 7613 May, [facility] [place] [facility] [address] [id number] [place] [address] May, [facility] [place] [facility] [address] [id number] [place] [address]- 9687 May, [facility] [place] [facility] [address] [id number] [place] [address]- 3606 May, [facility] [place] [facility] [address] [id number] [place] [address]- 7595 Apr, [facility] [place] [facility] [address] [id number] [place] [address]- 6178 Apr, [facility] [place] [facility] [address] [id number] [place] [address]- 8658 Apr, [facility] [place] [facility] [address] [id number] [place] [address]- 9677 Apr, [facility] [place] [facility] [address] [id number] [place] [address]- 7193 Apr, [facility] [place] [facility] [address] [id number] [place] [address]- 7991 Apr, [facility] [place] [facility] [address] [id number] [place] [address]- 2481 Apr, [facility] [place] [facility] [address] [id number] [place] [address]- 1044 Apr, [facility] [place] [facility] [address] [id number] [place] [address]- 7816 Mar, [facility] [place] [facility] [address] [id number] [place] [address]- 9399 Mar, [facility] [place] [facility] [address] [id number] [place] [address]- 6291 Feb, 2013 [facility] [place] [facility] [address] [id number] [place] [address]- 8160 Feb, 2013 [facility] [place] [facility] [address] [id number] [place] [address]- 7763 Feb, [facility] [place] [facility] [address] [id number] [place] [address]- 6556 Feb, 2013 [facility] [place] [facility] [address] [id number] [place] [address]- 7413 Feb, 2013 [facility] [place] [facility] [address] [id number] [place] [address]- 2201 Feb, [facility] [place] [facility] [address] [id number] [place] [address]- 3182 Feb, [facility] [place] [facility] [address] [id number] [place] [address]- 3976 Feb, [facility] [place] [facility] [address] [id number] [place] [address]- 9969 Feb, [facility] [place] [facility] [address] [id number] [place] [address]- 4136 Feb, [facility] [place] [facility] [address] [id number] [place] [address]- 7920 Jan, [facility] [place] [facility] [address] [id number] [place] [address]- 2149 Jan, [facility] [place] [facility] [address] [id number] [place] [address]- 5015 Jan, [facility] [place] [facility] [address] [id number] [place] [address]- 4544 Jan, [facility] [place] [facility] [address] [id number] [place] [address]- 9292 Jan, [facility] [place] [facility] [address] [id number] [place] [address]- 8102 Jan, [facility] [place] [facility] [address] [id number] [place] [address]- 0644 Jan, [facility] [place] [facility] [address] [id number] [place] [address]- 6230 Jan, [facility] [place] [facility] [address] [id number] [place] [address]- 8758 Jan, [facility] [place] [facility] [address] [id number] [place] [address]- 3362 Jan, [facility] [place] [facility] [address] [id number] [place] [address]- 9912 Jan, [facility] [place] [facility] [address] [id number] [place] [address]- 5641 Jan, [facility] [place] [facility] [address] [id number] [place] [address]- 3511 Jan, [facility] [place] [facility] [address] [id number] [place] [address]- 5598 Dec, [facility] [place] [facility] [address] [id number] [place] [address]- 3097 Dec, [facility] [place] [facility] [address] [id number] [place] [address]- 6949 Dec, [facility] [place] [facility] [address] [id number] [place] [address]- 9092 Dec, [facility] [place] [facility] [address] [id number] [place] [address]- 4140 Dec, [facility] [place] [facility] [address] [id number] [place] [address]- 1564 Dec, [facility] [place] [facility] [address] [id number] [place] [address]- 7943 Dec, [facility] [place] [facility] [address] [id number] [place] [address]- 3236 Dec, [facility] [place] [facility] [address] [id number] [place] [address]- 2263 Dec, [facility] [place] [facility] [address] [id number] [place] [address]- 8130 Dec, [facility] [place] [facility] [address] [id number] [place] [address]- 6708 Dec, [facility] [place] [facility] [address] [id number] [place] [address]- 0201 Dec, [facility] [place] [facility] [address] [id number] [place] [address]- 1509 Dec, [facility] [place] [facility] [address] [id number] [place] [address]- 3253 Dec, [facility] [place] [facility] [address] [id number] [place] [address]- 5153 Nov, [facility] [place] [facility] [address] [id number] [place] [address]- 4325 Nov, [facility] [place] [facility] [address] [id number] [place] [address]- 6593 Nov, [facility] [place] [facility] [address] [id number] [place] [address]- 2383 Nov, [facility] [place] [facility] [address] [id number] [place] [address]- 9719 Nov, [facility] [place] [facility] [address] [id number] [place] [address]- 5815 Nov, [facility] [place] [facility] [address] [id number] [place] [address]- 2527 Nov, [facility] [place] [facility] [address] [id number] [place] [address]- 4592 Nov, [facility] [place] [facility] [address] [id number] [place] [address]- 9977 October, [facility] [place] [facility] [address] [id number] [place] [address]- 2484 October, [facility] [place] [facility] [address] [id number] [place] [address]- 6204 October, [facility] [place] [facility] [address] [id number] [place] [address]- 4278 October, [facility] [place] [facility] [address] [id number] [place] [address]9 October, [facility] [place] [facility] [address] [id number] [place] [address]- 4959 October, [facility] [place] [facility] [address] [id number] [place] [address]- 5942 October, [facility] [place] [facility] [address] [id number] [place] [address]- 6268 October, [facility] [place] [facility] [address] [id number] [place] [address]- 5629 October, [facility] [place] [facility] [address] [id number] [place] [address]- 4232 October, [facility] [place] [facility] [address] [id number] [place] [address]- 2464 October, [facility] [place] [facility] [address] [id number] [place] [address]- 6177 October, [facility] [place] [facility] [address] [id number] [place] [address]- 5148 October, [facility] [place] [facility] [address] [id number] [place] [address]- 0178 October, [facility] [place] [facility] [address] [id number] [place] [address]- 1706 October, [facility] [place] [facility] [address] [id number] [place] [address]- 3478 October, [facility] [place] [facility] [address] [id number] [place] [address]- 2157 Sep, [facility] [place] [facility] [address] [id number] [place] [address]- 2889 Sep, [facility] [place] [facility] [address] [id number] [place] [address]- 1191 Sep, [facility] [place] [facility] [address] [id number] [place] [address]- 8858 Sep, [facility] [place] [facility] [address] [id number] [place] [address]- 4696 Sep, [facility] [place] [facility] [address] [id number] [place] [address]- 8180 Sep, [facility] [place] [facility] [address] [id number] [place] [address]- 1115 Sep, [facility] [place] [facility] [address] [id number] [place] [address]- 9602 Sep, [facility] [place] [facility] [address] [id number] [place] [address]- 7398 Sep, [facility] [place] [facility] [address] [id number] [place] [address]- 5071 Sep, [facility] [place] [facility] [address] [id number] [place] [address]- 9119 Sep, [facility] [place] [facility] [address] [id number] [place] [address]- 2880 Sep, [facility] [place] [facility] [address] [id number] [place] [address]- 1498 Sep, [facility] [place] [facility] [address] [id number] [place] [address]- 8043 Sep, [facility] [place] [facility] [address] [id number] [place] [address]- 6570 Sep, [facility] [place] [facility] [address] [id number] [place] [address]- 1365 Sep, [facility] [place] [facility] [address] [id number] [place] [address]- 6013 Sep, [facility] [place] [facility] [address] [id number] [place] [address]- 7822 Sep, [facility] [place] [facility] [address] [id number] [place] [address]- 7450 Sep, [facility] [place] [facility] [address] [id number] [place] [address]- 2508 Aug, [facility] [place] [facility] [address] [facility] [id number] [place] [address]- 8656 Aug, [facility] [place] [facility] [address] [id number] [place] [address]- 6991 Aug, [facility] [place] [facility] [address] [id number] [place] [address]- 1571 Aug, [facility] [place] [facility] [address] [id number] [place] [address]- 1883 Jul, [facility] [place] [facility] [address] [facility] [id number] [place] [address]- 7680 Jul, [facility] [place] [facility] [address] [facility] [id number] [place] [address]- 2696 Jul, [facility] [place] [facility] [address] [facility] [id number] [place] [address]- 7267 Jul, [facility] [place] [facility] [address] [facility] [id number] [place] [address]- 4039 Jul, [facility] [place] [facility] [address] [facility] [id number] [place] [address]- 2900 Jul, [facility] [place] [facility] [address] [facility] [id number] [place] [address]- 6411 Jul, [facility] [place] [facility] [address] [facility] [id number] [place] [address]- 4547 Jul, [facility] [place] [facility] [address] [facility] [id number] [place] [address]- 1568 Jul, [facility] [place] [facility] [address] [facility] [id number] [place] [address]- 7561 Jul, [facility] [place] [facility] [address] [id number] [place] [address]- 2354 Jul, [facility] [place] [facility] [address] [id number] [place] [address]- 4149 Jul, [facility] [place] [facility] [address] [id number] [place] [address]- 7687 Jun, [facility] [place] [facility] [address] [id number] [place] [address]- 3522 Jun, [facility] [place] [facility] [address] [id number] [place] [address]- 9223 Jun, [facility] [place] [facility] [address] [id number] [place] [address]- 4202 Jun, [facility] [place] [facility] [address] [id number] [place] [address]- 5868 Jun, [facility] [place] [facility] [address] [id number] [place] [address]- 0828 Jun, [facility] [place] [facility] [address] [id number] [place] [address]- 5181 May, [facility] [place] [facility] [address] [id number] [place] [address]- 5712 May, [facility] [place] [facility] [address] [id number] [place] [address]- 4625 Apr, [facility] [place] [facility] [address] [id number] [place] [address]- 9757 Apr, [facility] [place] [facility] [address] [id number] [place] [address]- 2734 Apr, [facility] [place] [facility] [address] [id number] [place] [address]- 7829 Apr, [facility] [place] [facility] [address] [id number] [place] [address]- 5434 Apr, [facility] [place] [facility] [address] [id number] [place] [address]- 9405 18 Apr, 2013 [facility] [place] [facility] [address] [id number] [place] [address]- 9125 17 Apr, 2013 [facility] [place] [facility] [address] [id number], [place] [address]- 1195 15 Apr, 2013 [facility] [place] [facility] [address] [id number] [place] [address]- 4727 15 Apr, 2013 [facility] [place] [facility] [address] [id number], [place] [address]- 5697 15 Apr, 2013 [facility] [place] [facility] [address] [id number] [place] [address]- 9129 15 Apr, 2013 [facility] [place] [facility] [address] [id number], [place] [address]- 4649 Apr, [facility] [place] [facility] [address] [id number], [place] [address]- 4685 Apr, [facility] [place] [facility] [address] [id number], [place] [address]- 1848 31 Mar, 2013 [facility] [place] [facility] [address] [id number], [place] [address]- 6516 31 Mar, 2013 [facility] [place] [facility] [address] [id number], [place] [address]- 5118 25 Mar, 2013 [facility] [place] [facility] [address] [id number], [place] [address]- 9826 25 Mar, 2013 [facility] [place] [facility] [address] [id number], [place] [address]- 1975 17 Mar, 2013 [facility] [place] [facility] [address] [id number], [place] [address]- 6312 17 Mar, 2013 [facility] [place] [facility] [address] [id number], [place] [address]- 4512 14 Mar, 2013 [facility] [place] [facility] [address] [id number], [place] [address]- 0548 14 Mar, 2013 [facility] [place] [facility] [address] [id number] [place] [address]- 3994 Mar, [facility] [address] [id number] [place] [address]- 1306 Mar, [facility] [place] [facility] [address] [id number] [place] 8536 02 Mar, 2013 [facility] [address] [id number] [place] [address]- 6802 30 Feb, 2013 [facility] [place] [facility] [address] [id number] [place] [address] 2540 28 Feb, 2013 [facility] [address] [id number] [place] [address]- 0995 27 Feb, 2013 [facility] [place] [facility] [address] [id number] [place] [address]- 2882 27 Feb, 2013 [facility] [address] [id number] [place] [address]- 4711 20 Feb, 2013 [facility] [address] [id number] [place] [address]- 0268 10 Feb, 2013 [facility] [place] [facility] [address] [id number] [place] [address]- 4281 Jan, [facility] [address] [id number] [place] [address]- 2119 Jan, [facility] [place] [facility] [address] [id number] [place] [address] 2548 Dec, [facility] [place] [facility] [address] [id number] [place] [address]- 8801 Dec, [facility] [place] [facility] [address] [id number] [place] [address]- 8069 15 Dec, 2012 [facility] [place] [facility] [address] [id number] [place] [address] 2549 Dec, [facility] [place] [facility] [address] [id number] [place] [address]- 2910 Nov, [facility] [place] [facility] [address] [id number] [place] [address]- 2736 14 Nov, 2012 [facility] [address] [id number] [place] [address]- 2477 Nov, [facility] [address] [id number] [place] [address]- 7318 October, [facility] [address] [id number] [place] [address]- 9019 October, [facility] [address] [id number] [place] [address]- 8465 October, [facility] [address] [id number] [place] [address]- 9864 October, [facility] [address] [id number] [place] [address]- 4417 October, [facility] [address] [id number] [place] [address]- 5104 Sep, [facility] [address] [id number] [place] [address]- 4700 Sep, [facility] [address] [id number] [place] [address]- 9883 Aug, [facility] [address] [id number] [place] [address] Aug, [facility] [place] [facility] [address] [id number], [place] [address] Aug, [facility] [place] [facility] [address] [id number] [place] [address] Aug, [facility] [place] [facility] [address] [id number] [place] [address] Aug, [facility] [place] [facility] [address] [id number], [place] [address] Jul, [facility] [place] [facility] [address] [id number], [place] [address] Jul, [facility] [address] [id number] [place] [address] Jul, [facility] [address] [id number] [place] [address] Jul, [facility] [address] [id number] [place] [address] Jun, [facility] [address] [id number] [place] [address] Jun, [facility] [address] [id number] [place] [address] Jun, [facility] [address] [id number] [place] [address] Jun, [facility] [address] [id number] [place] [address] Jun, [facility] [address] [id number] [place] [address] Jun, [facility] [address] [id number] [place] [address] Jun, [facility] [address] [id number] [place] [address] Jun, [facility] [address] [id number] [place] [address] Jun, [facility] [address] [id number] [place] [address] Jun, [facility] [address] [id number] [place] [address] Jun, [facility] [address] [id number] [place] [address] May, [facility] [address] [id number] [place] [address] May, [facility] [place] [facility] [address] [id number] [place] [address] Apr, [facility] [place] [facility] [address] [id number] [place] [address] Apr, [facility] [place] [facility] [address] [id number] [place] [address] Mar, [facility] [place] [facility] [address] [id number] [place] [address] Mar, [facility] [place] [facility] [address] [id number] [place] [address] Mar, [facility] [place] [facility] [address] [id number] [place] [address] 1516 Mar, [facility] [place] [facility] [address] [id number] [place] [address] Mar, [facility] [place] [facility] [address] [id number] [place] [address]89 Mar, [facility] [place] [facility] [address] [id number] [place] [address] Mar, [facility] [place] [facility] [address] [id number] [place] [address] 235[address] Mar, [facility] [place] [facility] [address] [id number] [place] [address] Mar, [facility] [place] [facility] [address] [id number] [place] [address] Feb, [facility] [place] [facility] [address] [id number] [place] [address] Jan, [facility] [place] [facility] [address] [id number] [place] [address] 29[address] Jan, [facility] [place] [facility] [address] [id number] [place] [address] 4119 Dec, [facility] [place] [facility] [address] [id number] [place] [address] Dec, [facility] [place] [facility] [address] [id number] [place] [address] Dec, [facility] [place] [facility] [address] [id number] [place] [address] Nov, [facility] [place] [facility] [address] [id number] [place] [address] Nov, [facility] [place] [facility] [address] [id number] [place] [address] Nov, [facility] [place] [facility] [address] [id number] [place] [address]- [address] Nov, [facility] [place] [facility] [address] [id number] [place] [address]17 October, [facility] [place] [facility] [address] [id number] [place] [address] October, [facility] [place] [facility] [address] [id number] [place] [address] Sep, [facility] [place] [facility] [address] [id number] [place] [address]- [address]118 Sep, [facility] [place] [facility] [address] [id number] [place] [address] 57[address] Aug, [facility] [place] [facility] [address] [id number] [place] [address] Jul, [facility] [place] [facility] [address] [id number] [place] [address] Jul, [facility] [place] [facility] [address] [id number] [place] [address]- 3689 Jul, [facility] [place] [facility] [address] [id number] [place] [address]- 4[address] Jul, [facility] [place] [facility] [address] [id number] [place] [address] Jun, [facility] [place] [facility] [address] [id number] [place] [address]678 15 May, 2011 [facility] [place] [facility] [address] [id number] [place] [address] 3412 15 May, 2011 [facility] [place] [facility] [address] [id number] [place] [address] 3066 15 May, 2011 [facility] [place] [facility] [address] [id number] [place] [address] 3819 13 May, 2011 [facility] [place] [facility] [address] [id number] [place] [address]- 27[address] 08 May, 2011 [facility] [place] [facility] [address] [id number] [place] [address]- 8471 14 Apr, 2011 [facility] [place] [facility] [address] [id number] [place] [address]- 6038 14 Apr, 2011 [facility] [place] [facility] [address] [id number] [place] [address]- 4129 14 Apr, 2011 [facility] [place] [facility] [address] [id number] [place] [address]- [address]602 07 Apr, 2011 [facility] [place] [facility] [address] [id number] [place] [address]- 8418 02 Apr, 2011 [facility] [place] [facility] [address] [id number] [place] [address]- [address] 26 Mar, 2011 [facility] [place] [facility] [address] [id number] [place] [address]- 4466 25 Mar, 2011 [facility] [place] [facility] [address] [id number] [place] [address]- 4842 14 Mar, 2011 [facility] [place] [facility] [address] [id number] [place] [address]- 8206 14 Mar, 2011 [facility] [place] [facility] [address] [id number] [place] [address]- 8868 13 Mar, 2011 [facility] [place] [facility] [address] [id number] [place] [address]- 45[address] Mar, [facility] [address] [id number] [address] Mar, [facility] [address] [id number] [address] Mar, [facility] [id number] [address] 14 Feb, 2011 [facility] [id number] [place] [address] May, [facility] [id number] [place] [address] May, [facility] [id number] [place] [address] May, [facility] [id number] [place] [address] Apr, [facility] [id number] [place] [address] Mar, IMMUNIZATIONS No Known Immunizations SOCIAL HISTORY Never Assessed REASON FOR VISIT med refill to appt date PLAN OF CARE VITAL SIGNS MEDICATIONS Medication Instructions Dosage Frequency Start Date End Date Duration Status Neurontin 300 MG Orally two times a day 3 capsules 12h 13 Aug, 2014 21 days Active RESULTS No Results PROCEDURES No [...]
[2017-10-15] MEDS ORDERED: KETOROLAC 30 MG/ML VIAL IVP STA (01:08)
[2017-10-15] MEDS ORDERED: LACTATED RINGERS 1,000 ML IV ONE (01:08)
--- OUTSIDE RECORDS SUMMARY | 2017-10-15 01:08 | XMS REPORT ---
Author Author TUNDE VEGA [facility] Address [address] [place] [address] Care Team Providers Care Psychological Aide Name Role Phone GARY TUNDE Unavailable PROBLEMS Type Condition ICD9-CM Code [id number] Code Onset Dates Condition Status SNOMED Code Problem Mixed hyperlipidemia E78.2 Active 127559417 Problem Vitamin D deficiency E55.9 Active 28379918 Problem Essential hypertension I10 Active 78225552 Problem Posttraumatic stress disorder F43.10 Active 92360345 Problem Mild intermittent asthma without complication J45.20 Active 084316594 Problem Generalized anxiety disorder F41.1 Active 18598411 Problem Gastroesophageal reflux disease, esophagitis presence not specified K21.9 Active 319934902 Problem Bipolar disorder, current episode mixed, moderate F31.62 Active 245478800 Problem Low back pain with sciatica, sciatica laterality unspecified, unspecified back pain laterality, unspecified chronicity M54.40 Active 110577305 Problem Panic disorder F41.0 Active 292735942 Problem Concussion without loss of consciousness, initial encounter S06.0X0A Active 87335697 Problem Nausea R11.0 Active 457043292 Problem Anxiety F41.9 Active 01171330 Problem Hematuria R31.9 Active 28314507 Problem Bipolar disorder F31.9 Active 21812971 Problem Multiple fractures T07.XXXA Active 172112844 Problem Acute right-sided low back pain with right-sided sciatica M54.41 Active 55361505 Problem Hospital discharge follow-up Z09 Active 825389379 Problem Hot flashes R23.2 Active 187169124 Problem History of IBS Z87.19 Active 56544814752632 Problem Breast tenderness N64.4 Active 90681730 Problem Primary insomnia F51.01 Active 563189201 Problem Hidradenitis suppurativa L73.2 Active 68596569 Problem Tobacco use Z72.0 Active 977422844 Problem Localized edema R60.0 Active 095702570 Problem Depression F32.9 Active 69998501 Problem Genital herpes simplex, unspecified site A60.00 Active 06382156 ALLERGIES No Information ENCOUNTERS Encounter Location Date Diagnosis [facility] [id number] [place] [address] 55649- 7331 October, [facility] [id number] [place] [address] 09595- 4788 Sep, Hospital discharge follow-up Z09 ; Concussion without loss of consciousness, initial encounter S06.0X0A and Nausea R11.0 [facility] [id number] [place] [address] 59585- 8718 Sep, [facility] [address] 56562- 6857 Sep, Panic disorder F41.0 [facility] [id number] [place] [address] 64829- 0417 Sep, [facility] [id number] [place] [address] 08533- 8823 Sep, Well woman exam with routine gynecological exam Z01.419 ; Multiple fractures T07.XXXA ; Hot flashes R23.2 ; Essential hypertension I10 ; Mixed hyperlipidemia E78.2 ; Genital herpes simplex, unspecified site A60.00 ; Alkaline phosphatase elevation R74.8 ; Dysuria R30.0 ; Vitamin D deficiency E55.9 ; Tobacco use Z72.0 ; High risk sexual behavior Z72.51 and Encounter for immunization Z23 [facility] [id number] [place] [address] 23323- 4688 Aug, Panic disorder F41.0 ; Generalized anxiety disorder F41.1 and Bipolar disorder, current episode mixed, moderate F31.62 [facility] [id number] [place] [address] 79929- 6755 Aug, [facility] [id number] [place] [address] 86871- 5529 Jul, Panic disorder F41.0 ; Generalized anxiety disorder F41.1 and Bipolar disorder, current episode mixed, moderate F31.62 [facility] [address], [place] [address] 1014 Jul, [facility] [address] [place] [address] 53224- 0403 Jul, [facility] [address], [place] [address] 2144 Jul, Effusion, right knee M25.461 ; Acute pain of right knee M25.561 and Acute pain of left knee M25.562 [facility] [address] [place] [address] 27053- 5847 Jun, Bipolar disorder, current episode mixed, moderate F31.62 ; Generalized anxiety disorder F41.1 and Panic disorder F41.0 [facility] [address] [place] [address] 15935- 1341 May, Bipolar disorder, current episode mixed, moderate F31.62 ; Generalized anxiety disorder F41.1 and Panic disorder F41.0 [facility] [id number] [place] [address] 61293- 7318 May, Bipolar disorder, current episode mixed, moderate F31.62 [facility] [address], [place] [address] 3100 May, Bipolar disorder, current episode mixed, moderate F31.62 [facility] [address] [place] [address] 23211- 8065 Apr, Bipolar disorder, current episode mixed, moderate F31.62 ; Generalized anxiety disorder F41.1 and Panic disorder F41.0 [facility] [address] [place] [address] 79435- 1164 Mar, [facility] [address] [place] [address] 66215- 1954 Mar, Bipolar disorder, current episode mixed, moderate F31.62 ; Generalized anxiety disorder F41.1 and Panic disorder F41.0 [facility] [id number] [place] [address] 89260- 0083 27 Feb, 2017 [facility] [id number] [place] [address] 52741- 3944 22 Feb, 2017 Posttraumatic stress disorder F43.10 [facility] [id number] [place] [address] 70350- 7102 20 Feb, 2017 Gastroesophageal reflux disease, esophagitis presence not specified K21.9 [facility] [id number] [place] [address] 30408- 8697 13 Feb, 2017 [facility] [id number] [place] [address] 76646- 5035 06 Feb, 2017 Knee pain, right anterior M25.561 [facility] [id number] [place] [address] 95925- 9890 05 Feb, 2017 HSV (herpes simplex virus) infection B00.9 [facility] [address] 16550- 0159 05 Feb, 2017 [facility] [id number] [place] [address] 57914- 3015 Jan, [facility] [id number] [place] [address] 88023- 6011 Jan, Posttraumatic stress disorder F43.10 [facility] [id number] [place] [address] 32117- 4871 Jan, Foot pain, left M79.672 [facility] [id number] [place] [address] 53445- 1038 Jan, [facility] [id number] [place] [address] 39979- 1951 Jan, Lumbar radiculopathy, acute M54.16 ; Muscle spasm of back M62.830 and Right hip pain M25.551 [facility] [id number] [place] [address] 84463- 2690 Jan, Lumbar radiculopathy, acute M54.16 [facility] [address], [place] [address]- 5660 Jan, [facility] [id number] [place] [address] 41938- 2767 Jan, [facility] [id number] [place] [address] 57523- 8053 Dec, Lumbar radiculopathy, acute M54.16 ; Acute renal insufficiency N28.9 and Muscle spasm of back M62.830 [facility] [id number] [place] [address] 22674- 5171 Dec, [facility] [id number] [place] [address] 86560- 8416 Dec, [facility] [id number] [place] [address] 52263- 0922 Dec, [facility] [id number] [place] [address] 18334 -5845 Dec, Low back pain with sciatica, sciatica laterality unspecified, unspecified back pain laterality, unspecified chronicity M54.40 and Acute right-sided low back pain with right-sided sciatica M54.41 [facility] [id number] [place] [address] 11877- 3840 Dec, Posttraumatic stress disorder F43.10 [facility] [id number] [place] [address] 47731- 0618 Dec, [facility] [id number] [place] [address] 14934- 6460 Dec, Pain in right thigh M79.651 and Acute right-sided low back pain without sciatica M54.5 [facility] [id number] [place] [address] 83870- 5766 Dec, Posttraumatic stress disorder F43.10 and Major depressive disorder, recurrent episode with anxious distress F33.9 [facility] [address] [address]8397 Dec, [facility] [address], [place] [address]- 9867 Nov, [facility] [address] 5287 October, [facility] [address], [place] [address]- 6946 October, [facility] [id number] [place] [address] 987792- 6426 October, Knee pain, right anterior M25.561 [facility] [id number] [place] [address] 480785- 3042 October, Knee pain, right anterior M25.561 [facility] [address] [address]- 6486 October, [facility] [id number] [place] [address] 68380- 9585 October, [facility] [address], [place] [address]- 0509 October, [facility] [address], [place] [address] -0864 Sep, [facility] [address], [place] [address]- 8046 Sep, [facility] [address], [place] [address]- 2183 Sep, Essential hypertension I10 [facility] [address], [place] [address]- 6858 Sep, Essential hypertension I10 [facility] [address] 4799 Sep, [facility] [id number], [place] [address]- 0581 Sep, Posttraumatic stress disorder F43.10 and Major depressive disorder, recurrent episode with anxious distress F33.9 [facility] [id number] [place] [address] 82948- 6024 Sep, Multiple fractures T14.8 ; Alkaline phosphatase elevation R74.8 and Vitamin D deficiency E55.9 [facility] [id number] [place] [address] 79417- 2317 Sep, [facility] [address] 52817- 9158 Sep, Elevated serum creatinine R79.89 ; Fracture of foot, left, closed, initial encounter S92.902A and Alkaline phosphatase elevation R74.8 [facility] [address] 88526- 6637 Sep, Elevated serum creatinine R79.89 and Essential hypertension I10 [facility] [address] 55041- 7924 Sep, [facility] [address] 82232- 4966 Aug, Gastroesophageal reflux disease, esophagitis presence not specified K21.9 [facility] [address] 21894- 6161 Aug, Essential hypertension I10 ; Fracture of foot, left, closed , initial encounter S92.902A and Alkaline phosphatase elevation R74.8 [facility] [address] 96132- 5207 Jul, Genital herpes simplex, unspecified site A60.00 [facility] [id number] [place] [address] 61002- 5416 Jul, Essential hypertension I10 [facility] [address] 68052- 3583 Jun, Cough R05 and Wheezing R06.2 [facility] [address] 96610- 9880 Jun, Essential hypertension I10 [facility] [address], [place] [address]- 2209 May, Essential hypertension I10 [facility] [id number] [place] [address] 54917- 9605 May, Posttraumatic stress disorder F43.10 and Major depressive disorder, recurrent episode with anxious distress F33.9 [facility] [id number] [place] [address] 36872- 7892 Apr, [facility] [id number] [place] [address] 02916- 7580 Apr, [facility] [id number] [place] [address] 26862- 8631 Apr, [facility] [id number] [place] [address] 09057- 7428 Mar, [facility] [id number] [place] [address] 11470- 0815 Feb, [facility] [id number] [place] [address] 59781- 4237 Jan, [facility] [id number] [place] [address] 17522- 3565 Jan, Essential hypertension I10 ; Mixed hyperlipidemia E78.2 ; Gastroesophageal reflux disease, esophagitis presence not specified K21.9 ; Mild intermittent asthma without complication J45.20 ; Hidradenitis suppurativa L73.2 ; Migraine without status migrainosus, not intractable, unspecified migraine type G43.909 ; Genital herpes simplex, unspecified site A60.00 and Closed traumatic minimally displaced fracture of metatarsal bone of left foot S92.302A [facility] [id number] [place] [address] 81698 -5404 Jan, Localized edema R60.0 [facility] [id number] [place] [address] 01691- 8042 Dec, [facility] [id number] [place] [address] 51337- 9783 Dec, [facility] [id number] [place] [address] 67486- 8649 Dec, [facility] [id number] [place] [address] 54289 -5214 Dec, Cough R05 ; Tobacco dependence F17.200 and Costochondritis , acute M94.0 [facility] [id number] [place] [address] 48571- 6021 Dec, Major depression, recurrent F33.9 ; Bipolar disorder, unspecified F31.9 and Posttraumatic stress disorder F43.10 [facility] [id number] [place] [address] 65500- 0375 Nov, [facility] [id number] [place] [address] 73599- 2821 Nov, [facility] [id number] [place] [address] 01534- 0309 October, [facility] [id number] [place] [address] 80009 -7238 October, Acute upper respiratory infection, unspecified J06.9 [facility] [id number] [place] [address] 95010- 4213 October, [facility] [id number] [place] [address] 63067- 0699 Sep, Bipolar affective disorder, remission status unspecified F31.9 and Post-traumatic stress disorder F43.10 [facility] [address] [place] [address] 60718- 4707 Sep, Bipolar disorder, unspecified F31.9 ; Posttraumatic stress disorder F43.10 and Major depression, recurrent F33.9 [facility] [address] [place] [address] 61387- 4695 Aug, Edema R60.9 ; Fatigue R53.83 and Polydipsia R63.1 [facility] [address], [place] [address]- 4764 Aug, [facility] [address], [place] [address]- 8092 Aug, [facility] [address], [place] [address]- 9751 Jul, [facility] [address] [place] [address] 56496- 4684 Jul, [facility] [address] [place] [address] 23944- 4286 Jun, [facility] [id number] [place] [address] 95783- 8022 Jun, [facility] [id number] [place] [address] 54244- 9652 Jun, [facility] [address] [place] [address] 81917- 6448 Jun, [facility] [address] [place] [address] 10617- 7033 May, Mixed hyperlipidemia E78.2 [facility] [address] [place] [address] 47284- 0304 May, Well woman exam Z01.419 ; History of herpes simplex infection Z86.19 ; Papanicolaou smear Z12.4 ; History of depression Z86.59 ; History of anxiety Z86.59 ; Lipoma of other specified sites D17.79 ; Hidradenitis suppurativa L73.2 ; Routine screening for STI (sexually transmitted infection) Z11.3 and Tobacco use Z72.0 [facility] [id number] [place] [address] 94419- 8900 May, Hematuria R31.9 ; Essential hypertension I10 ; Pure hypercholesterolemia E78.0 and Hidradenitis L73.2 [facility] [address] [place] [address] 52404- 7186 May, Upper respiratory symptom R09.89 and Allergic rhinitis J30.9 [facility] [address] [address]- 9318 May, [facility] [id number] [place] [address] 81146- 3661 May, [facility] [id number] [place] [address] 07896- 5488 May, Bipolar disorder, unspecified F31.9 ; Posttraumatic stress disorder F43.10 and Major depression, recurrent F33.9 [facility] [id number] [place] [address] 34426- 1389 May, [facility] [id number] [place] [address] 77028- 4171 May, [facility] [id number] [place] [address] 08343- 5291 Apr, [facility] [id number] [place] [address] 02867- 5469 Apr, [facility] [id number] [place] [address] 44714- 9901 Mar, [facility] [id number] [place] [address] 07365- 2849 Mar, [facility] [id number] [place] [address] 88909- 2598 Mar, [facility] [id number] [place] [address] 26630- 2754 18 Feb, 2015 Major depressive disorder, recurrent episode, moderate 296.32 and Post traumatic stress disorder (PTSD) 309.81 [facility] [id number] [place] [address] 83009- 6694 10 Feb, 2015 [facility] [id number] [place] [address] 81892- 5502 08 Feb, 2015 [facility] [id number] [place] [address] 59828- 3517 Jan, Cough 786.2 [facility] [address], [place] [address]- 5110 Jan, Depression, major, recurrent, moderate 296.32 and Post traumatic stress disorder (PTSD) 309.81 [facility] [address], [place] [address]- 3075 Jan, [facility] [id number] [place] [address] 04161- 2923 Dec, [facility] [id number] [place] [address] 31966- 0320 Dec, Generalized anxiety disorder 300.02 and Depression, major, recurrent, moderate 296.32 [facility] [address] [place] [address] 49140- 2398 Dec, [facility] [id number] [place] [address] 90322- 8132 Dec, High risk medication use V58.69 [facility] [id number] [place] [address] 08608- 6516 Dec, High risk medication use V58.69 [facility] [address] [place] [address] 01122- 9597 Dec, [facility] [address], [place] [address]- 6134 Nov, Generalized anxiety disorder 300.02 and Major depressive disorder, recurrent episode, moderate 296.32 [facility] [address] [id number] [address] Nov, Dental examination V72.2 [facility] [id number] [place] [address] [id number] Nov, Dental examination V72.2 [facility] [address], [place] [address]- 1116 Nov, [facility] [id number] [place] [address] [id number] Nov, Dental examination V72.2 [facility] [address] [id number] [address] Nov, Dental examination V72.2 [facility] [id number], [place] [address]- 1396 October, Major depressive disorder, recurrent episode, moderate 296.32 and Generalized anxiety disorder 300.02 [facility] [address] [id number], [place] [address]- 2916 October, [facility] [address] [facility] [id number], [place] [address]- 4146 October, [facility] [id number], [place] [address] 2546 October, [facility] [id number], [place] [address]- 7821 Sep, [facility] [id number], [place] [address]- 1420 Sep, [facility] [id number], [place] [address]- 3596 Aug, [facility] [id number], [place] [address]- 9106 17 Aug, 2014 [facility] [address] [facility] [id number], [place] [address]- 5496 Aug, [facility] [address] [facility] [id number], [place] [address]- 4626 Aug, [facility] [address] [facility] [id number], [place] [address]- 5836 10 Aug, 2014 [facility] [address] [facility] [id number], [place] [address]- 2546 Aug, [facility] [address] [facility] [id number], [place] [address]- 2546 Aug, [facility] [address] [facility] [id number], [place] [address]- 1475 Jul, 2014 [facility] [place] [facility] [address] [id number] [place] [address]- 4386 Jul, 2014 [facility] [place] [facility] [address] [id number] [place] 0696 Jul, 2014 [facility] [place] [facility] [address] [id number] [place] [address]- 8696 Jul, 2014 [facility] [place] [facility] [address] [id number] [place] [address]- 5657 Jul, 2014 [facility] [place] [facility] [address] [id number] [place] [id number] Jul, 2014 [facility] [place] [facility] [address] [facility] [id number] [place] [id number] Jul, 2014 [facility] [place] [facility] [address] [id number] [place] [id number] Jul, 2014 [facility] [place] [facility] [address] [facility] [id number] [place] [id number] Jul, [facility] [place] [facility] [address] [id number] [place] [id number] Jun, [facility] [place] [facility] [address] [facility] [id number] [place] [id number] Jun, [facility] [place] [facility] [address] [facility] [id number] [place] [id number] Jun, [facility] [place] [facility] [address] [id number] [place] [address] Jun, [facility] [place] [facility] [address] [id number] [place] [address] Jun, [facility] [place] [facility] [address] [facility] [id number] [place] [address] 4878 Jun, [facility] [place] [facility] [address] [facility] [id number] [place] [address]- 2651 Jun, [facility] [place] [facility] [address] [id number] [place] [address] 8080 Jun, [facility] [place] [facility] [address] [id number] [place] [address]- 0086 Jun, [facility] [place] [facility] [address] [id number] [place] [address]- 1007 Jun, [facility] [place] [facility] [address] [id number] [place] [address]- 4315 Jun, [facility] [place] [facility] [address] [id number] [place] [address]- 1686 Jun, [facility] [place] [facility] [address] [id number] [place] [address]- 4382 Jun, [facility] [place] [facility] [address] [id number] [place] [address]- 2980 Jun, [facility] [place] [facility] [address] [id number] [place] [address]- 2322 Jun, [facility] [place] [facility] [address] [id number] [place] [address]- 3217 Jun, [facility] [place] [facility] [address] [id number] [place] [address]- 9125 Jun, [facility] [place] [facility] [address] [id number] [place] [address]- 1345 Jun, [facility] [place] [facility] [address] [id number] [place] [address]- 8661 Jun, [facility] [place] [facility] [address] [id number] [place] [address]- 9928 Jun, [facility] [place] [facility] [address] [id number] [place] [address]- 4272 Jun, [facility] [place] [facility] [address] [id number] [place] [address]- 2894 Jun, [facility] [place] [facility] [address] [id number] [place] [address]- 0973 Jun, [facility] [address] [id number] [place] [address]- 0463 Jun, [facility] [place] [facility] [address] [id number] [place] [address]- 3948 Jun, [facility] [place] [facility] [address] [id number] [place] [address]- 6054 May, [facility] [place] [facility] [address] [id number] [place] [address]- 6110 May, [facility] [place] [facility] [address] [id number] [place] [address]- 2206 May, [facility] [place] [facility] [address] [id number] [place] [address]- 5349 May, [facility] [place] [facility] [address] [id number] [place] [address]- 6485 May, [facility] [place] [facility] [address] [id number] [place] [address]- 3699 May, [facility] [place] [facility] [address] [id number] [place] [address]- 6359 May, [facility] [place] [facility] [address] [id number] [place] [address]- 5365 May, [facility] [place] [facility] [address] [id number] [place] [address]- 5948 May, [facility] [place] [facility] [address] [id number] [place] [address]- 3069 May, [facility] [place] [facility] [address] [id number] [place] [address]- 2830 May, [facility] [place] [facility] [address] [id number] [place] [address]- 2450 May, [facility] [place] [facility] [address] [id number] [place] [address]- 9628 May, [facility] [place] [facility] [address] [id number] [place] [address]- 2253 May, [facility] [place] [facility] [address] [id number] [place] [address] May, [facility] [place] [facility] [address] [id number] [place] [address] May, [facility] [place] [facility] [address] [id number] [place] [address]- 6716 May, [facility] [place] [facility] [address] [id number] [place] [address] May, [facility] [place] [facility] [address] [id number] [place] [address]- 8906 Apr, [facility] [place] [facility] [address] [id number] [place] [address]- 1255 Apr, [facility] [place] [facility] [address] [id number] [place] [address]- 6958 Apr, [facility] [place] [facility] [address] [id number] [place] [address]- 8308 Apr, [facility] [place] [facility] [address] [id number] [place] [address]- 7839 Apr, [facility] [place] [facility] [address] [id number] [place] [address]- 6467 Apr, [facility] [place] [facility] [address] [id number] [place] [address]- 9061 Apr, [facility] [place] [facility] [address] [id number] [place] [address]- 3782 Apr, [facility] [place] [facility] [address] [id number] [place] [address]- 6907 Mar, [facility] [place] [facility] [address] [id number] [place] [address]- 7991 Mar, [facility] [place] [facility] [address] [id number] [place] [address]- 9332 Feb, 2013 [facility] [place] [facility] [address] [id number] [place] [address]- 4963 Feb, 2013 [facility] [place] [facility] [address] [id number] [place] [address]- 1155 Feb, [facility] [place] [facility] [address] [id number] [place] [address]- 3116 Feb, 2013 [facility] [place] [facility] [address] [id number] [place] [address]- 1501 Feb, 2013 [facility] [place] [facility] [address] [id number] [place] [address]- 6386 Feb, [facility] [place] [facility] [address] [id number] [place] [address]- 6840 Feb, [facility] [place] [facility] [address] [id number] [place] [address]- 2578 Feb, [facility] [place] [facility] [address] [id number] [place] [address]- 0272 Feb, [facility] [place] [facility] [address] [id number] [place] [address]- 5283 Feb, [facility] [place] [facility] [address] [id number] [place] [address]- 2324 Jan, [facility] [place] [facility] [address] [id number] [place] [address]- 0253 Jan, [facility] [place] [facility] [address] [id number] [place] [address]- 0871 Jan, [facility] [place] [facility] [address] [id number] [place] [address]- 2380 Jan, [facility] [place] [facility] [address] [id number] [place] [address]- 3502 Jan, [facility] [place] [facility] [address] [id number] [place] [address]- 9594 Jan, [facility] [place] [facility] [address] [id number] [place] [address]- 8415 Jan, [facility] [place] [facility] [address] [id number] [place] [address]- 4619 Jan, [facility] [place] [facility] [address] [id number] [place] [address]- 4782 Jan, [facility] [place] [facility] [address] [id number] [place] [address]- 8850 Jan, [facility] [place] [facility] [address] [id number] [place] [address]- 7237 Jan, [facility] [place] [facility] [address] [id number] [place] [address]- 7659 Jan, [facility] [place] [facility] [address] [id number] [place] [address]- 6317 Jan, [facility] [place] [facility] [address] [id number] [place] [address]- 6840 Dec, [facility] [place] [facility] [address] [id number] [place] [address]- 3322 Dec, [facility] [place] [facility] [address] [id number] [place] [address]- 6722 Dec, [facility] [place] [facility] [address] [id number] [place] [address]- 6751 Dec, [facility] [place] [facility] [address] [id number] [place] [address]- 8581 Dec, [facility] [place] [facility] [address] [id number] [place] [address]- 9258 Dec, [facility] [place] [facility] [address] [id number] [place] [address]- 1996 Dec, [facility] [place] [facility] [address] [id number] [place] [address]- 2400 Dec, [facility] [place] [facility] [address] [id number] [place] [address]- 4253 Dec, [facility] [place] [facility] [address] [id number] [place] [address]- 3036 Dec, [facility] [place] [facility] [address] [id number] [place] [address]- 6243 Dec, [facility] [place] [facility] [address] [id number] [place] [address]- 4183 Dec, [facility] [place] [facility] [address] [id number] [place] [address]- 8307 Dec, [facility] [place] [facility] [address] [id number] [place] [address]- 1054 Dec, [facility] [place] [facility] [address] [id number] [place] [address]- 6168 Nov, [facility] [place] [facility] [address] [id number] [place] [address]- 4551 Nov, [facility] [place] [facility] [address] [id number] [place] [address]- 6103 Nov, [facility] [place] [facility] [address] [id number] [place] [address]- 5973 Nov, [facility] [place] [facility] [address] [id number] [place] [address]- 8517 Nov, [facility] [place] [facility] [address] [id number] [place] [address]- 6255 Nov, [facility] [place] [facility] [address] [id number] [place] [address]- 5992 Nov, [facility] [place] [facility] [address] [id number] [place] [address]- 0305 Nov, [facility] [place] [facility] [address] [id number] [place] [address]- 2361 October, [facility] [place] [facility] [address] [id number] [place] [address]- 9905 October, [facility] [place] [facility] [address] [id number] [place] [address]- 1480 October, [facility] [place] [facility] [address] [id number] [place] [address]- 8863 October, [facility] [place] [facility] [address] [id number] [place] 3413 October, [facility] [place] [facility] [address] [id number] [place] [address]- 6951 October, [facility] [place] [facility] [address] [id number] [place] [address]- 2019 October, [facility] [place] [facility] [address] [id number] [place] [address]- 7682 October, [facility] [place] [facility] [address] [id number] [place] [address]- 6493 October, [facility] [place] [facility] [address] [id number] [place] [address]- 0395 October, [facility] [place] [facility] [address] [id number] [place] [address]- 7526 October, [facility] [place] [facility] [address] [id number] [place] [address]- 5947 October, [facility] [place] [facility] [address] [id number] [place] [address]- 0026 October, [facility] [place] [facility] [address] [id number] [place] [address]- 9205 October, [facility] [place] [facility] [address] [id number] [place] [address]- 1329 October, [facility] [place] [facility] [address] [id number] [place] [address]- 2702 October, [facility] [place] [facility] [address] [id number] [place] [address]- 9081 Sep, [facility] [place] [facility] [address] [id number] [place] [address]- 8693 Sep, [facility] [place] [facility] [address] [id number] [place] [address]- 5835 Sep, [facility] [address] [id number] [place] [address]- 1112 Sep, [facility] [place] [facility] [address] [id number] [place] [address]- 4524 Sep, [facility] [address] [id number] [place] [address]- 2978 Sep, [facility] [place] [facility] [address] [id number] [place] [address]- 8077 Sep, [facility] [address] [id number] [place] [address]- 5292 Sep, [facility] [address] [id number] [place] [address]- 9763 Sep, [facility] [place] [facility] [address] [id number] [place] [address]- 1449 Sep, [facility] [address] [id number] [place] [address]- 4589 Sep, [facility] [place] [facility] [address] [id number] [place] [address]- 6010 Sep, [facility] [address] [id number] [place] [address]- 3657 Sep, [facility] [place] [facility] [address] [id number] [place] [address]- 5169 Sep, [facility] [place] [facility] [address] [id number] [place] [address]- 7685 Sep, [facility] [place] [facility] [address] [id number] [place] [address]- 4096 Sep, [facility] [place] [facility] [address] [id number] [place] [address]- 8917 Sep, [facility] [place] [facility] [address] [id number] [place] [address]- 2129 Sep, [facility] [place] [facility] [address] [id number] [place] [address]- 4137 Sep, [facility] [place] [facility] [address] [id number] [place] [address]- 9701 Aug, [facility] [place] [facility] [address] [id number] [place] [address]- 9237 Aug, [facility] [place] [facility] [address] [id number] [place] [address]- 0212 Aug, [facility] [place] [facility] [address] [id number] [place] [address]- 4771 Aug, [facility] [place] [facility] [address] [id number] [place] [address]- 5874 Jul, [facility] [place] [facility] [address] [facility] [id number] [place] [address]- 7821 Jul, [facility] [place] [facility] [address] [id number] [place] [address]- 7751 Jul, [facility] [place] [facility] [address] [facility] [id number] [place] [address]- 7082 Jul, [facility] [place] [facility] [address] [facility] [id number] [place] [address]- 6989 Jul, [facility] [place] [facility] [address] [facility] [id number] [place] [address]- 4225 Jul, [facility] [place] [facility] [address] [id number] [place] [address]- 6950 Jul, [facility] [place] [facility] [address] [id number] [place] [address]- 7304 Jul, [facility] [place] [facility] [address] [facility] [id number] [place] [address]- 5884 Jul, [facility] [place] [facility] [address] [facility] [id number] [place] [address]- 8322 Jul, [facility] [place] [facility] [address] [id number] [place] [address]- 3789 Jul, [facility] [place] [facility] [address] [id number] [place] [address] Jul, [facility] [place] [facility] [address] [id number] [place] [address]- 8048 Jun, [facility] [place] [facility] [address] [id number] [place] [address]- 2453 Jun, [facility] [place] [facility] [address] [id number] [place] [address]- 9866 Jun, [facility] [place] [facility] [address] [id number] [place] [address]- 8224 Jun, [facility] [place] [facility] [address] [id number] [place] [address]- 9893 Jun, [facility] [place] [facility] [address] [id number] [place] [address]- 8655 Jun, [facility] [place] [facility] [address] [id number] [place] [address]- 9677 May, [facility] [place] [facility] [address] [id number] [place] [address]- 5500 May, [facility] [place] [facility] [address] [id number] [place] [address]- 6220 Apr, [facility] [place] [facility] [address] [id number] [place] [address]- 7991 Apr, [facility] [place] [facility] [address] [id number] [place] [address]- 6134 Apr, [facility] [place] [facility] [address] [id number] [place] [address]- 6633 Apr, [facility] [place] [facility] [address] [id number] [place] [address]- 0745 Apr, [facility] [place] [facility] [address] [id number] [place] [address]- 8066 18 Apr, 2013 [facility] [place] [facility] [address] [id number] [place] [address]- 4190 17 Apr, 2013 [facility] [place] [facility] [address] [id number], [place] [address]- 9793 15 Apr, 2013 [facility] [place] [facility] [address] [id number] [place] [address]- 9896 15 Apr, 2013 [facility] [place] [facility] [address] [id number], [place] [address]- 3570 15 Apr, 2013 [facility] [place] [facility] [address] [id number] [place] [address]- 9358 15 Apr, 2013 [facility] [place] [facility] [address] [id number], [place] [address]- 6898 Apr, [facility] [place] [facility] [address] [id number], [place] [address]- 2699 Apr, [facility] [place] [facility] [address] [id number], [place] [address]- 6784 31 Mar, 2013 [facility] [place] [facility] [address] [id number], [place] [address]- 8565 31 Mar, 2013 [facility] [place] [facility] [address] [id number], [place] [address]- 2321 25 Mar, 2013 [facility] [place] [facility] [address] [id number], [place] [address]- 4270 25 Mar, 2013 [facility] [place] [facility] [address] [id number], [place] [address]- 9016 17 Mar, 2013 [facility] [place] [facility] [address] [id number], [place] [address]- 8077 17 Mar, 2013 [facility] [place] [facility] [address] [id number], [place] [address]- 5919 14 Mar, 2013 [facility] [place] [facility] [address] [id number], [place] [address]- 0610 14 Mar, 2013 [facility] [place] [facility] [address] [id number] [place] [address]- 1319 Mar, [facility] [place] [facility] [address] [id number] [place] [address]- 9731 11 Mar, 2013 [facility] [place] [facility] [address] [id number] [place] [address] 2546 02 Mar, 2013 [facility] [place] [facility] [address] [id number] [place] [address]- 6642 30 Feb, 2013 [facility] [place] [facility] [address] [id number] [place] [address] 2548 28 Feb, 2013 [facility] [place] [facility] [address] [id number] [place] [address]- 7057 27 Feb, 2013 [facility] [place] [facility] [address] [id number] [place] [address]- 5501 27 Feb, 2013 [facility] [place] [facility] [address] [id number] [place] [address]- 2139 20 Feb, 2013 [facility] [place] [facility] [address] [id number] [place] [address]- 4699 10 Feb, 2013 [facility] [place] [facility] [address] [id number] [place] [address]- 7045 Jan, [facility] [place] [facility] [address] [id number] [place] [address]- 5517 Jan, [facility] [place] [facility] [address] [id number] [place] [address] 2540 Dec, [facility] [place] [facility] [address] [id number] [place] [address]- 2544 Dec, [facility] [place] [facility] [address] [id number] [place] [address]- 3686 15 Dec, 2012 [facility] [place] [facility] [address] [id number] [place] [address] 2547 Dec, [facility] [place] [facility] [address] [id number] [place] [address]- 5222 Nov, [facility] [place] [facility] [address] [id number] [place] [address]- 2246 Nov, [facility] [address] [id number] [place] [address]- 6116 Nov, [facility] [address] [id number] [place] [address]- 3179 October, [facility] [address] [id number] [place] [address]- 9569 October, [facility] [address] [id number] [place] [address]- 0339 October, [facility] [address] [id number] [place] [address] October, [facility] [address] [id number] [place] [address] October, [facility] [address] [id number] [place] [address] Sep, [facility] [address] [id number] [place] [address] Sep, [facility] [address] [id number] [place] [address] Aug, [facility] [address] [id number] [place] [address] Aug, [facility] [address] [id number], [place] [address] Aug, [facility] [address] [id number] [place] [address] Aug, [facility] [place] [facility] [address] [id number] [place] [address] Aug, [facility] [address] [id number] [place] [address] Jul, [facility] [address] [id number], [place] [address] Jul, [facility] [address] [id number] [place] [address] Jul, [facility] [address] [id number] [place] [address] Jul, [facility] [address] [id number] [place] [address] Jun, [facility] [address] [id number] [place] [address] Jun, [facility] [address] [id number] [place] [address] Jun, [facility] [address] [id number] [place] [address] Jun, [facility] [address] [id number] [place] [address] Jun, [facility] [address] [id number] [place] [address] Jun, [facility] [address] [id number] [place] [address] Jun, [facility] [address] [id number] [place] [address]67 Jun, [facility] [address] [id number] [place] [address] Jun, [facility] [address] [id number] [place] [address] Jun, [facility] [address] [id number] [place] [address] Jun, [facility] [address] [id number] [place] [address] May, [facility] [address] [id number] [place] [address] May, [facility] [place] [facility] [address] [id number] [place] [address] Apr, [facility] [place] [facility] [address] [id number] [place] [address] Apr, [facility] [place] [facility] [address] [id number] [place] [address] 1336 Mar, [facility] [place] [facility] [address] [id number] [place] [address]648 Mar, [facility] [place] [facility] [address] [id number] [place] [address] Mar, [facility] [place] [facility] [address] [id number] [place] [address] Mar, [facility] [place] [facility] [address] [id number] [place] [address] Mar, [facility] [place] [facility] [address] [id number] [place] [address] Mar, [facility] [place] [facility] [address] [id number] [place] [address] Mar, [facility] [place] [facility] [address] [id number] [place] [address] Mar, [facility] [place] [facility] [address] [id number] [place] [address] Mar, [facility] [place] [facility] [address] [id number] [place] [address] Feb, [facility] [place] [facility] [address] [id number] [place] [address] Jan, [facility] [place] [facility] [address] [id number] [place] [address] Jan, [facility] [place] [facility] [address] [id number] [place] [address] Dec, [facility] [place] [facility] [address] [id number] [place] [address] Dec, [facility] [place] [facility] [address] [id number] [place] [address] Dec, [facility] [place] [facility] [address] [id number] [place] [address] Nov, [facility] [place] [facility] [address] [id number] [place] [address]- [address] Nov, [facility] [place] [facility] [address] [id number] [place] [address]- [address] Nov, [facility] [place] [facility] [address] [id number] [place] [address]- [address] Nov, [facility] [place] [facility] [address] [id number] [place] [address] October, [facility] [place] [facility] [address] [id number] [place] [address] October, [facility] [place] [facility] [address] [id number] [place] [address]- [address]99 Sep, [facility] [place] [facility] [address] [id number] [place] [address] Sep, [facility] [place] [facility] [address] [id number] [place] [address]- [address] Aug, [facility] [place] [facility] [address] [id number] [place] [address]- [address] Jul, [facility] [place] [facility] [address] [id number] [place] [address]- [address] Jul, [facility] [place] [facility] [address] [id number] [place] [address]- 83[address] Jul, [facility] [place] [facility] [address] [id number] [place] [address]- 70[address] Jul, [facility] [place] [facility] [address] [id number] [place] [address]- [address] Jun, [facility] [place] [facility] [address] [id number] [place] [address]- [address] 15 May, 2011 [facility] [place] [facility] [address] [id number] [place] [address]- [address]24 15 May, 2011 [facility] [place] [facility] [address] [id number] [place] [address] 15 May, 2011 [facility] [place] [facility] [address] [id number] [place] [address]- 3963 13 May, 2011 [facility] [place] [facility] [address] [id number] [place] [address]- 7944 08 May, 2011 [facility] [place] [facility] [address] [id number] [place] [address]- [address]898 14 Apr, 2011 [facility] [place] [facility] [address] [id number] [place] [address]- [address] 14 Apr, 2011 [facility] [place] [facility] [address] [id number] [place] [address]- 4367 14 Apr, 2011 [facility] [place] [facility] [address] [id number] [place] [address]- 287[address] 07 Apr, 2011 [facility] [place] [facility] [address] [id number] [place] [address]- 5521 02 Apr, 2011 [facility] [place] [facility] [address] [id number] [place] [address]- 7826 26 Mar, 2011 [facility] [place] [facility] [address] [id number] [place] [address]- 0393 25 Mar, 2011 [facility] [place] [facility] [address] [id number] [place] [address]- 2934 14 Mar, 2011 [facility] [place] [facility] [address] [id number] [place] [address]- [address]391 14 Mar, 2011 [facility] [place] [facility] [address] [id number] [place] [address]- [id number] 13 Mar, 2011 [facility] [place] [facility] [address] [id number] [place] [address] Mar, [facility] [address] [id number] [address] Mar, [facility] [id number], [place] [address] Mar, [facility] [id number], [place] [address] 14 Feb, 2011 [facility] [id number], [place] [address] May, [facility] [id number], [place] [address] May, [facility] [id number], [place] [address] May, [facility] [id number], [place] [address] Apr, [facility] [address] [id number] [address] Mar, IMMUNIZATIONS No Known Immunizations SOCIAL HISTORY Never Assessed REASON FOR VISIT PT Evaluation PLAN OF CARE Activity Details Follow Up 2 Weeks Reason:F/U PT VITAL SIGNS MEDICATIONS Unknown Medications RESULTS No Results PROCEDURES Procedure Date Ordered Result Body Site PT EVAL MOD COMPLEX 30 MIN Jan 18, 2017 THERAPEUTIC EXERCISES Jan 18, 2017 INSTRUCTIONS MEDICATIONS ADMINISTERED No Known Medications MEDICAL [...]
[2017-10-15] MEDS ORDERED: ONDANSETRON 4 MG/2 ML (SDV) Z0FRAN IVP ONE (01:15)
--- OUTSIDE RECORDS SUMMARY | 2017-10-15 01:16 | XMS REPORT ---
Author Author SOFIA WENDI Organization [facility] Address [address] [place] [address] Care Team Providers Care Transformation Architect Name Role Phone SOFIAMARIA EUGENIA ELIZABETHHANY Unavailable PROBLEMS Type Condition ICD9-CM Code WGU43-OW Code Onset Dates Condition Status SNOMED Code Problem Mixed hyperlipidemia E78.2 Active 507845710 Problem Vitamin D deficiency E55.9 Active 09461718 Problem Essential hypertension I10 Active 53592039 Problem Posttraumatic stress disorder F43.10 Active 18097778 Problem Mild intermittent asthma without complication J45.20 Active 874890420 Problem Generalized anxiety disorder F41.1 Active 42101370 Problem Gastroesophageal reflux disease, esophagitis presence not specified K21.9 Active 078816952 Problem Bipolar disorder, current episode mixed, moderate F31.62 Active 620690938 Problem Low back pain with sciatica, sciatica laterality unspecified, unspecified back pain laterality, unspecified chronicity M54.40 Active 617718500 Problem Panic disorder F41.0 Active 598773899 Problem Concussion without loss of consciousness, initial encounter S06.0X0A Active 73883850 Problem Nausea R11.0 Active 697640569 Problem Anxiety F41.9 Active 53142159 Problem Hematuria R31.9 Active 99348857 Problem Bipolar disorder F31.9 Active 00762297 Problem Multiple fractures T07.XXXA Active 904306821 Problem Acute right-sided low back pain with right-sided sciatica M54.41 Active 93059866 Problem Hospital discharge follow-up Z09 Active 945820372 Problem Hot flashes R23.2 Active 373077157 Problem History of IBS Z87.19 Active 83612497388729 Problem Breast tenderness N64.4 Active 13733254 Problem Primary insomnia F51.01 Active 968022198 Problem Hidradenitis suppurativa L73.2 Active 19460851 Problem Tobacco use Z72.0 Active 733917431 Problem Localized edema R60.0 Active 703177454 Problem Depression F32.9 Active 98846856 Problem Genital herpes simplex, unspecified site A60.00 Active 04662281 ALLERGIES No Information ENCOUNTERS Encounter Location Date Diagnosis [place] [address] [address] October, [place] [address] [place] [id number] [place] [address] 20055- 0668 Sep, Hospital discharge follow-up Z09 ; Concussion without loss of consciousness, initial encounter S06.0X0A and Nausea R11.0 [place] [address] 66708- 0834 Sep, [place] [address] 13276- 3906 Sep, Panic disorder F41.0 [place] [address] 29744- 1437 Sep, [place] [address] 11818- 3133 Sep, Well woman exam with routine gynecological exam Z01.419 ; Multiple fractures T07.XXXA ; Hot flashes R23.2 ; Essential hypertension I10 ; Mixed hyperlipidemia E78.2 ; Genital herpes simplex, unspecified site A60.00 ; Alkaline phosphatase elevation R74.8 ; Dysuria R30.0 ; Vitamin D deficiency E55.9 ; Tobacco use Z72.0 ; High risk sexual behavior Z72.51 and Encounter for immunization Z23 [place] [address] [place] [id number] [place] [address] 54422- 6198 Aug, Panic disorder F41.0 ; Generalized anxiety disorder F41.1 and Bipolar disorder, current episode mixed, moderate F31.62 [place] [address] [place] [id number] [place] [address] 75640- 6005 Aug, [place] [address] [place] [id number] [place] [address] 46754- 6304 Jul, Panic disorder F41.0 ; Generalized anxiety disorder F41.1 and Bipolar disorder, current episode mixed, moderate F31.62 [facility] [address], [place] [address] 23[address] Jul, [facility] [address] [place] [id number] [place] [address] 78876- 2696 Jul, [facility] [address], [place] [address] 5[address] Jul, Effusion, right knee M25.461 ; Acute pain of right knee M25.561 and Acute pain of left knee M25.562 [facility] [address], [place] [address] 9933 Jun, Bipolar disorder, current episode mixed, moderate F31.62 ; Generalized anxiety disorder F41.1 and Panic disorder F41.0 [facility] [address], [place] [address] 2074 May, Bipolar disorder, current episode mixed, moderate F31.62 ; Generalized anxiety disorder F41.1 and Panic disorder F41.0 [facility] [address], [place] [address]- 5651 May, Bipolar disorder, current episode mixed, moderate F31.62 [facility] [address], [place] [address] 0074 May, Bipolar disorder, current episode mixed, moderate F31.62 [facility] [id number] [place] [address] 45997- 4708 Apr, Bipolar disorder, current episode mixed, moderate F31.62 ; Generalized anxiety disorder F41.1 and Panic disorder F41.0 [facility] [address], [place] [address]- 6093 Mar, [facility] [address], [place] [address]- 1499 Mar, Bipolar disorder, current episode mixed, moderate F31.62 ; Generalized anxiety disorder F41.1 and Panic disorder F41.0 [facility] [address] [place] [id number] [place] [address] 49883- 8062 27 Feb, 2017 [facility] [address] 92631- 6913 22 Feb, 2017 Posttraumatic stress disorder F43.10 [place] [address] [place] [id number] [place] [address] 49215- 4976 20 Feb, 2017 Gastroesophageal reflux disease, esophagitis presence not specified K21.9 [facility] [address] 30017- 4517 13 Feb, 2017 [place] [address] 64447- 9800 06 Feb, 2017 Knee pain, right anterior M25.561 [place] [address] 68268- 5675 05 Feb, 2017 HSV (herpes simplex virus) infection B00.9 [place] [address] 38412- 6269 05 Feb, 2017 [place] [address] [place] [id number] [place] [address] 95205- 3964 Jan, [place] [address] 82218- 5684 Jan, Posttraumatic stress disorder F43.10 [place] [address] [place] [id number] [place] [address] 24048- 3636 Jan, Foot pain, left M79.672 [facility] [address] [place] [id number] [place] [address] 00258- 1959 Jan, [place] [address] 05182- 4489 Jan, Lumbar radiculopathy, acute M54.16 ; Muscle spasm of back M62.830 and Right hip pain M25.551 [place] [address] [place] [id number] [place] [address] 66133- 8378 Jan, Lumbar radiculopathy, acute M54.16 [facility] [address], [place] [address]- 9242 Jan, [facility] [address] [place] [id number] [place] [address] 61156- 3435 Jan, [facility] [address] [place] [id number] [place] [address] 04387- 5091 Dec, Lumbar radiculopathy, acute M54.16 ; Acute renal insufficiency N28.9 and Muscle spasm of back M62.830 [facility] [address] [place] [id number] [place] [address] 06367- 2153 Dec, [facility] [address] [place] [id number] [place] [address] 98330- 3500 Dec, [place] [address] [place] [id number] [place] [address] 90308- 9181 Dec, [facility] [address] [place] [id number] [place] [address] 56225 -9644 Dec, Low back pain with sciatica, sciatica laterality unspecified, unspecified back pain laterality, unspecified chronicity M54.40 and Acute right-sided low back pain with right-sided sciatica M54.41 [place] [address] [place] [address] 01095- 2251 Dec, Posttraumatic stress disorder F43.10 [place] [address] [place] [id number] [place] [address] 65653- 8644 Dec, [place] [address] [place] [id number] [place] [address] 58125- 7330 Dec, Pain in right thigh M79.651 and Acute right-sided low back pain without sciatica M54.5 [facility] [address], [place] [address]- 9011 Dec, Posttraumatic stress disorder F43.10 and Major depressive disorder, recurrent episode with anxious distress F33.9 [facility] [address] [place] [id number] [address] Dec, [facility] [address], [place] [address]- 1864 Nov, [facility] [address], [place] [address]- 1298 October, [facility] [address], [place] [address]- 0355 October, [facility] [address] [place] [id number] [address]- 5824 October, Knee pain, right anterior M25.561 [facility] [address] [place] [id number] [place] [address] 17838- 4251 October, Knee pain, right anterior M25.561 [facility] [address], [place] [address]- 8834 October, [facility] [address], [place] [address]- 7208 October, [facility] [address], [place] [address]- 8358 October, [facility] [address], [place] [address]99 Sep, [facility] [address], [place] [address]- 4679 Sep, [facility] [address], [place] [address]- 2719 Sep, Essential hypertension I10 [facility] [address] [place] [id number], [place] [address]- 5223 Sep, Essential hypertension I10 [facility] [address], [place] [address]- 0952 Sep, [facility] [address] [place] [id number], [place] [address]- 1971 Sep, Posttraumatic stress disorder F43.10 and Major depressive disorder, recurrent episode with anxious distress F33.9 [place] [address] [place] [id number] [place] [address] 77633- 1165 Sep, Multiple fractures T14.8 ; Alkaline phosphatase elevation R74.8 and Vitamin D deficiency E55.9 [place] [address] 89778- 4040 Sep, [place] [address] 40552- 6033 Sep, Elevated serum creatinine R79.89 ; Fracture of foot, left, closed, initial encounter S92.902A and Alkaline phosphatase elevation R74.8 [place] [address] 82898- 5950 Sep, Elevated serum creatinine R79.89 and Essential hypertension I10 [place] [address] 77372- 4664 Sep, [place] [address] 22687- 8130 Aug, Gastroesophageal reflux disease, esophagitis presence not specified K21.9 [place] [address] 44176- 4456 Aug, Essential hypertension I10 ; Fracture of foot, left, closed , initial encounter S92.902A and Alkaline phosphatase elevation R74.8 [place] [address] 32802- 2855 Jul, Genital herpes simplex, unspecified site A60.00 [place] [address] 31492- 5175 Jul, Essential hypertension I10 [place] [address] 28389- 0055 Jun, Cough R05 and Wheezing R06.2 [place] [address] 40975- 3994 Jun, Essential hypertension I10 [facility] [address] [place] [id number] [place] [address] 45569- 6300 May, Essential hypertension I10 [facility] [address] [place] [id number] [place] [address] 54608- 0015 May, Posttraumatic stress disorder F43.10 and Major depressive disorder, recurrent episode with anxious distress F33.9 [facility] [address] [place] [id number] [place] [address] 64834- 4025 Apr, [facility] [address] [place] [id number] [place] [address] 13638- 7958 Apr, [facility] [address] [place] [id number] [place] [address] 57178- 7787 Apr, [facility] [address] [place] [id number] [place] [address] 06547- 9244 Mar, [facility] [address] [place] [id number] [place] [address] 47305- 2770 Feb, [facility] [address] [place] [id number] [place] [address] 74832- 7204 Jan, [facility] [address] [place] [id number] [place] [address] 34289- 0310 Jan, Essential hypertension I10 ; Mixed hyperlipidemia E78.2 ; Gastroesophageal reflux disease, esophagitis presence not specified K21.9 ; Mild intermittent asthma without complication J45.20 ; Hidradenitis suppurativa L73.2 ; Migraine without status migrainosus, not intractable, unspecified migraine type G43.909 ; Genital herpes simplex, unspecified site A60.00 and Closed traumatic minimally displaced fracture of metatarsal bone of left foot S92.302A [facility] [address] [place] [id number] [place] [address] 79864 -8710 Jan, Localized edema R60.0 [facility] [address] [place] [id number] [place] [address] 98132- 9082 Dec, [facility] [address] [place] [address]- 9355 Dec, [facility] [address] [place] [id number] [place] [address] 94527- 2812 Dec, [facility] [address] [place] [id number] [place] [address] 79703 -6821 Dec, Cough R05 ; Tobacco dependence F17.200 and Costochondritis , acute M94.0 [facility] [address] [place] [id number] [place] [address] 04915- 5105 Dec, Major depression, recurrent F33.9 ; Bipolar disorder, unspecified F31.9 and Posttraumatic stress disorder F43.10 [place] [address] [place] [id number] [place] [address] 42333- 3684 Nov, [place] [address] [place] [id number] [place] [address] 88092- 4797 Nov, [facility] [address] [place] [id number] [place] [address] 23705- 1128 October, [facility] [address] [place] [id number] [place] [address] 16400 -2668 October, Acute upper respiratory infection, unspecified J06.9 [facility] [address] [place] [id number] [place] [address] 24799- 8813 October, [facility] [address] [place] [id number] [place] [address] 39914- 4216 Sep, Bipolar affective disorder, remission status unspecified F31.9 and Post-traumatic stress disorder F43.10 [facility] [address] [place] [address] 33202- 8219 Sep, Bipolar disorder, unspecified F31.9 ; Posttraumatic stress disorder F43.10 and Major depression, recurrent F33.9 [facility] [address] [place] [address] 84223- 6304 16 Aug, 2015 Edema R60.9 ; Fatigue R53.83 and Polydipsia R63.1 [place] [address], [place] [address]- 8415 Aug, [facility] [address], [place] [address]- 5688 Aug, [facility] [address], [place] [address]- 1710 Jul, [facility] [address] [place] [id number] [place] [address] 16104- 8427 Jul, [facility] [address] [place] [id number] [place] [address] 86762- 3692 Jun, [facility] [address] [place] [id number] [place] [address] 44696- 2800 Jun, [facility] [address] [place] [id number] [place] [address] 26649- 6534 Jun, [facility] [address] [place] [id number] [place] [address] 17963- 0598 Jun, [facility] [address] [place] [address] 68836- 1348 May, Mixed hyperlipidemia E78.2 [place] [address] [place] [address] 24515- 0730 May, Well woman exam Z01.419 ; History of herpes simplex infection Z86.19 ; Papanicolaou smear Z12.4 ; History of depression Z86.59 ; History of anxiety Z86.59 ; Lipoma of other specified sites D17.79 ; Hidradenitis suppurativa L73.2 ; Routine screening for STI (sexually transmitted infection) Z11.3 and Tobacco use Z72.0 [place] [address] [place] [address] 03366- 2200 May, Hematuria R31.9 ; Essential hypertension I10 ; Pure hypercholesterolemia E78.0 and Hidradenitis L73.2 [place] [address] [place] [address] 55454- 7341 May, Upper respiratory symptom R09.89 and Allergic rhinitis J30.9 [facility] [address] [place] [address] [address]- 8189 May, [facility] [address] [place] [id number] [place] [address] 57961- 7859 May, [facility] [address] [place] [id number] [place] [address] 47334- 4936 May, Bipolar disorder, unspecified F31.9 ; Posttraumatic stress disorder F43.10 and Major depression, recurrent F33.9 [facility] [address] [place] [id number] [place] [address] 63185- 4754 May, [facility] [address] [place] [id number] [place] [address] 18915- 4645 May, [facility] [address] [place] [id number] [place] [address] 85318- 8169 Apr, [facility] [address] [place] [id number] [place] [address] 20437- 8189 Apr, [facility] [address] [place] [id number] [place] [address] 97080- 9238 Mar, [facility] [address] [place] [id number] [place] [address] 00229- 0060 Mar, [facility] [address] [place] [id number] [place] [address] 86348- 0218 Mar, [facility] [address] [place] [id number] [place] [address] 16542- 3113 18 Feb, 2015 Major depressive disorder, recurrent episode, moderate 296.32 and Post traumatic stress disorder (PTSD) 309.81 [facility] [address] [place] [id number] [place] [address] 57711- 8022 10 Feb, 2015 [facility] [address] [place] [id number] [place] [address] 48504- 3252 08 Feb, 2015 [facility] [address] [place] [id number] [place] [address] 98732- 2622 Jan, Cough 786.2 [facility] [address] [place] [address] 88716- 2007 Jan, Depression, major, recurrent, moderate 296.32 and Post traumatic stress disorder (PTSD) 309.81 [facility] [address] [place] [address] 04570- 7411 Jan, [facility] [address] [place] [id number] [place] [address] 43319- 7331 Dec, [facility] [address] [place] [address] [id number] [place] [address] 23525- 5043 Dec, Generalized anxiety disorder 300.02 and Depression, major, recurrent, moderate 296.32 [facility] [address] [place] [id number] [place] [address] 91546- 2132 Dec, [facility] [address] [place] [address] [id number] [place] [address] 53016- 0660 Dec, High risk medication use V58.69 [facility] [address] [place] [address] [id number] [place] [address] 70550- 6760 Dec, High risk medication use V58.69 [facility] [address] [place] [address] 53320- 0641 Dec, [facility] [address] [place] [address] 45706- 4442 Nov, Generalized anxiety disorder 300.02 and Major depressive disorder, recurrent episode, moderate 296.32 [facility] [address] [id number] Nov, Dental examination V72.2 [facility] [id number] [place] [address] [id number] Nov, Dental examination V72.2 [facility] [address], [place] [address]- 6666 Nov, [facility] [id number] [place] [address] [id number] Nov, Dental examination V72.2 [facility] [address] [id number] [id number] Nov, Dental examination V72.2 [facility] [address] [facility] [id number], [place] [address]- 4486 October, Major depressive disorder, recurrent episode, moderate 296.32 and Generalized anxiety disorder 300.02 [facility] [address] [id number], [place] [address]- 7966 October, [facility] [address] [facility] [id number], [place] [address]- 0790 October, [facility] [id number], [place] [address]- 5996 October, [facility] [address] 2514 Sep, [facility] [id number] 4586 Sep, [facility] [id number] 8057 Aug, [facility] [id number]- 5826 17 Aug, 2014 [facility] [address] [facility] [id number], [place] [address]- 3786 Aug, [facility] [address] [facility] [id number], [place] [address]- 6274 Aug, [facility] [address] [facility] [id number], [place] [address]- 0962 Aug, [facility] [address] [facility] [id number], [place] [address]- 5606 Aug, [facility] [address] [facility] [id number], [place] [address]- 7576 Aug, [facility] [address] [facility] [id number] [place] [address]- 5403 16 Jul, 2014 [facility] [place] [facility] [address] [id number] [place] [address]- 1176 Jul, 2014 [facility] [place] [facility] [address] [id number] [place] [address] Jul, 2014 [facility] [place] [facility] [address] [id number] [place] [address] Jul, 2014 [facility] [place] [facility] [address] [id number] [place] [address] Jul, 2014 [facility] [place] [facility] [address] [id number] [place] [address] Jul, 2014 [facility] [place] [facility] [address] [facility] [id number] [place] [address] Jul, 2014 [facility] [place] [facility] [address] [id number] [place] [address] Jul, 2014 [facility] [place] [facility] [address] [id number] [place] [address] Jul, 2014 [facility] [place] [facility] [address] [facility] [id number] [place] [address] Jun, [facility] [place] [facility] [address] [facility] [id number] [place] [address] Jun, [facility] [place] [facility] [address] [id number] [place] [address] Jun, [facility] [place] [facility] [address] [id number] [place] [address] Jun, [facility] [place] [facility] [address] [id number] [place] [address] Jun, [facility] [place] [facility] [address] [id number] [place] [address] Jun, [facility] [place] [facility] [address] [id number] [place] [address] Jun, [facility] [place] [facility] [address] [id number] [place] [address] Jun, [facility] [place] [facility] [address] [id number] [place] [address] Jun, [facility] [place] [facility] [address] [id number] [place] [address] Jun, [facility] [place] [facility] [address] [id number] [place] [address] Jun, [facility] [place] [facility] [address] [id number] [place] [address] 4425 Jun, [facility] [place] [facility] [address] [id number] [place] [address]- 5775 Jun, [facility] [place] [facility] [address] [id number] [place] [address] 6753 Jun, [facility] [place] [facility] [address] [id number] [place] [address] 4886 Jun, [facility] [place] [facility] [address] [id number] [place] [address] 1622 Jun, [facility] [place] [facility] [address] [id number] [place] [address]- 6632 Jun, [facility] [place] [facility] [address] [id number], [place] [address] 42[address] Jun, [facility] [place] [facility] [address] [id number], [place] [address] 3866 Jun, [facility] [place] [facility] [address] [id number] [place] [address]- 6691 Jun, [facility] [place] [facility] [address] [id number], [place] [address] 1985 Jun, [facility] [place] [facility] [address] [id number] [place] [address] 7602 Jun, [facility] [place] [facility] [address] [id number] [place] [address]- 6434 Jun, [facility] [place] [facility] [address] [id number] [place] [address]- 4006 Jun, [facility] [place] [facility] [address] [id number] [place] [address]- 8286 Jun, [facility] [place] [facility] [address] [id number] [place] [address]- 4003 May, [facility] [place] [facility] [address] [id number] [place] [address]- 8695 May, [facility] [place] [facility] [address] [id number] [place] [address]- 4749 May, [facility] [place] [facility] [address] [id number] [place] [address]- 5117 May, [facility] [place] [facility] [address] [id number] [place] [address]- 2118 May, [facility] [place] [facility] [address] [id number] [place] [address]- 8238 May, [facility] [place] [facility] [address] [id number] [place] [address]- 9713 May, [facility] [place] [facility] [address] [id number] [place] [address]- 6199 May, [facility] [place] [facility] [address] [id number] [place] [address]- 0477 May, [facility] [place] [facility] [address] [id number] [place] [address]- 2019 May, [facility] [place] [facility] [address] [id number] [place] [address]- 0897 May, [facility] [place] [facility] [address] [id number] [place] [address]- 6923 May, [facility] [place] [facility] [address] [id number] [place] [address] May, [facility] [place] [facility] [address] [id number] [place] [address]- 7774 May, [facility] [place] [facility] [address] [id number] [place] [address]- 3038 May, [facility] [place] [facility] [address] [id number] [place] [address]- 4596 May, [facility] [place] [facility] [address] [id number] [place] [address]- 9151 May, [facility] [place] [facility] [address] [id number] [place] [address]- 2760 May, [facility] [place] [facility] [address] [id number] [place] [address]- 6098 Apr, [facility] [place] [facility] [address] [id number] [place] [address]- 4684 Apr, [facility] [place] [facility] [address] [id number] [place] [address]- 6646 Apr, [facility] [place] [facility] [address] [id number] [place] [address]- 2120 Apr, [facility] [place] [facility] [address] [id number] [place] [address]- 6074 Apr, [facility] [place] [facility] [address] [id number] [place] [address]- 9444 Apr, [facility] [place] [facility] [address] [id number] [place] [address]- 9996 Apr, [facility] [place] [facility] [address] [id number] [place] [address]- 1578 Apr, [facility] [place] [facility] [address] [id number] [place] [address]- 3272 Mar, [facility] [place] [facility] [address] [id number] [place] [address]- 9214 Mar, [facility] [place] [facility] [address] [id number] [place] [address]- 2630 Feb, [facility] [place] [facility] [address] [id number] [place] [address]- 7203 Feb, [facility] [place] [facility] [address] [id number] [place] [address]- 3316 Feb, [facility] [place] [facility] [address] [id number] [place] [address] 2546 Feb, [facility] [place] [facility] [address] [id number] [place] [address] 2543 Feb, 2013 [facility] [place] [facility] [address] [id number] [place] [address]- 6934 Feb, [facility] [place] [facility] [address] [id number] [place] [address]- 5729 Feb, [facility] [place] [facility] [address] [id number] [place] [address]- 7446 Feb, [facility] [place] [facility] [address] [id number] [place] [address]- 1006 Feb, [facility] [place] [facility] [address] [id number] [place] [address]- 4418 Feb, [facility] [place] [facility] [address] [id number] [place] [address]- 3040 Jan, [facility] [place] [facility] [address] [id number] [place] [address]- 5602 Jan, [facility] [place] [facility] [address] [id number] [place] [address]- 1322 Jan, [facility] [place] [facility] [address] [id number] [place] [address]- 0967 Jan, [facility] [place] [facility] [address] [id number] [place] [address]- 8145 Jan, [facility] [place] [facility] [address] [id number] [place] [address]- 2450 Jan, [facility] [place] [facility] [address] [id number] [place] [address]- 4643 Jan, [facility] [place] [facility] [address] [id number] [place] [address]- 1150 Jan, [facility] [place] [facility] [address] [id number] [place] [address]- 9148 Jan, [facility] [place] [facility] [address] [id number] [place] [address]- 9356 Jan, [facility] [place] [facility] [address] [id number] [place] [address]- 4547 Jan, [facility] [place] [facility] [address] [id number] [place] [address]- 3794 Jan, [facility] [place] [facility] [address] [id number] [place] [address]- 1215 Jan, [facility] [place] [facility] [address] [id number] [place] [address]- 1244 Dec, [facility] [place] [facility] [address] [id number] [place] [address]- 5196 Dec, [facility] [place] [facility] [address] [id number] [place] [address]- 8395 Dec, [facility] [place] [facility] [address] [id number] [place] [address]- 3377 Dec, [facility] [place] [facility] [address] [id number] [place] [address]- 7990 Dec, [facility] [place] [facility] [address] [id number] [place] [address]- 7902 Dec, [facility] [place] [facility] [address] [id number] [place] [address]- 1031 Dec, [facility] [place] [facility] [address] [id number] [place] [address]- 8228 Dec, [facility] [place] [facility] [address] [id number] [place] [address]- 1622 Dec, [facility] [place] [facility] [address] [id number] [place] [address]- 4356 Dec, [facility] [place] [facility] [address] [id number] [place] [address]- 0661 Dec, [facility] [place] [facility] [address] [id number] [place] [address]- 9317 Dec, [facility] [place] [facility] [address] [id number] [place] [address]- 7019 Dec, [facility] [place] [facility] [address] [id number] [place] [address]- 1978 Dec, [facility] [place] [facility] [address] [id number] [place] [address]- 7676 Nov, [facility] [place] [facility] [address] [id number] [place] [address]- 7305 Nov, [facility] [place] [facility] [address] [id number] [place] [address]- 0179 Nov, [facility] [place] [facility] [address] [id number] [place] [address]- 0046 Nov, [facility] [place] [facility] [address] [id number] [place] [address]- 4440 Nov, [facility] [place] [facility] [address] [id number] [place] [address]- 6528 Nov, [facility] [place] [facility] [address] [id number] [place] [address]- 1927 Nov, [facility] [place] [facility] [address] [id number] [place] [address]- 2051 Nov, [facility] [place] [facility] [address] [id number] [place] [address]- 3632 October, [facility] [place] [facility] [address] [id number] [place] [address]- 8387 October, [facility] [place] [facility] [address] [id number], [place] [address]- 0146 October, [facility] [address] [id number] [place] [address]- 2683 October, [facility] [place] [facility] [address] [id number] [place] [address]- 9484 October, [facility] [place] [facility] [address] [id number] [place] [address]- 3482 October, [facility] [place] [facility] [address] [id number] [place] [address]- 0144 October, [facility] [place] [facility] [address] [id number] [place] [address]- 5295 October, [facility] [place] [facility] [address] [id number] [place] [address]- 0428 October, [facility] [address] [id number] [place] [address]- 5660 October, [facility] [place] [facility] [address] [id number] [place] [address]- 0487 October, [facility] [place] [facility] [address] [id number] [place] [address]- 4848 October, [facility] [place] [facility] [address] [id number] [place] [address]- 6903 October, [facility] [place] [facility] [address] [id number] [place] [address]- 2672 October, [facility] [place] [facility] [address] [id number] [place] [address]- 0504 October, [facility] [place] [facility] [address] [id number] [place] [address]- 3057 October, [facility] [place] [facility] [address] [id number] [place] [address]- 1772 Sep, [facility] [place] [facility] [address] [id number] [place] [address]- 3998 Sep, [facility] [place] [facility] [address] [id number] [place] [address]- 4486 Sep, [facility] [place] [facility] [address] [id number] [place] [address]- 3487 Sep, [facility] [place] [facility] [address] [id number] [place] [address]- 4355 Sep, [facility] [place] [facility] [address] [id number] [place] [address]- 3227 Sep, [facility] [place] [facility] [address] [id number] [place] [address]- 8984 Sep, [facility] [place] [facility] [address] [id number] [place] [address]- 8882 Sep, [facility] [place] [facility] [address] [id number] [place] [address]- 5232 Sep, [facility] [place] [facility] [address] [id number] [place] [address]- 9398 Sep, [facility] [place] [facility] [address] [id number] [place] [address]- 4149 Sep, [facility] [place] [facility] [address] [id number] [place] [address]- 7451 Sep, [facility] [place] [facility] [address] [id number] [place] [address]- 8885 Sep, [facility] [place] [facility] [address] [id number] [place] [address]- 9262 Sep, [facility] [place] [facility] [address] [id number] [place] [address]- 9609 Sep, [facility] [place] [facility] [address] [id number] [place] [address]- 6101 Sep, [facility] [place] [facility] [address] [id number] [place] [address]- 3474 Sep, [facility] [place] [facility] [address] [id number] [place] [address]- 3158 Sep, [facility] [place] [facility] [address] [id number] [place] [address]- 6752 Sep, [facility] [place] [facility] [address] [id number] [place] [address]- 2038 Aug, [facility] [place] [facility] [address] [facility] [id number] [place] [address]- 1408 Aug, [facility] [place] [facility] [address] [id number] [place] [address]- 4084 Aug, [facility] [place] [facility] [address] [id number] [place] [address]- 2385 Aug, [facility] [place] [facility] [address] [id number] [place] [address]- 0970 Jul, [facility] [place] [facility] [address] [id number] [place] [address]- 3087 Jul, [facility] [place] [facility] [address] [id number] [place] [address]- 4970 Jul, [facility] [place] [facility] [address] [id number] [place] [address]- 3056 Jul, [facility] [place] [facility] [address] [facility] [id number] [place] [address]- 7354 Jul, [facility] [place] [facility] [address] [facility] [id number] [place] [address]- 9208 Jul, [facility] [place] [facility] [address] [facility] [id number] [place] [address]- 5300 Jul, [facility] [place] [facility] [address] [facility] [id number] [place] [address]- 1565 Jul, [facility] [place] [facility] [address] [facility] [id number] [place] [address]- 5644 Jul, [facility] [place] [facility] [address] [facility] [id number] [place] [address]- 0401 Jul, [facility] [place] [facility] [address] [id number] [place] [address]- 9233 Jul, [facility] [place] [facility] [address] [id number] [place] [address]- 3576 Jul, [facility] [place] [facility] [address] [id number] [place] [address]- 5177 Jun, [facility] [place] [facility] [address] [id number] [place] [address]- 0486 Jun, [facility] [place] [facility] [address] [id number] [place] [address]- 2483 Jun, [facility] [place] [facility] [address] [id number] [place] [address]- 2854 Jun, [facility] [address] [id number] [place] [address]- 5597 Jun, [facility] [address] [id number] [place] [address]- 8907 Jun, [facility] [place] [facility] [address] [id number] [place] [address]- 3280 May, [facility] [place] [facility] [address] [id number] [place] [address]- 4232 May, [facility] [place] [facility] [address] [id number] [place] [address]- 1973 Apr, [facility] [place] [facility] [address] [id number] [place] [address]- 5694 Apr, [facility] [place] [facility] [address] [id number] [place] [address]- 6995 Apr, [facility] [place] [facility] [address] [id number] [place] [address]- 6829 Apr, [facility] [place] [facility] [address] [id number] [place] [address]- 3532 Apr, [facility] [place] [facility] [address] [id number] [place] [address]- 7648 18 Apr, 2013 [facility] [place] [facility] [address] [id number] [place] [address]- 4931 17 Apr, 2013 [facility] [place] [facility] [address] [id number] [place] [address]- 0781 15 Apr, 2013 [facility] [place] [facility] [address] [id number] [place] [address]- 3137 15 Apr, 2013 [facility] [place] [facility] [address] [id number], [place] [address]- 8004 15 Apr, 2013 [facility] [place] [facility] [address] [id number] [place] [address]- 9893 15 Apr, 2013 [facility] [place] [facility] [address] [id number] [place] [address]- 5465 Apr, [facility] [place] [facility] [address] [id number] [place] [address]- 9716 Apr, [facility] [place] [facility] [address] [id number] [place] [address]- 0636 31 Mar, 2013 [facility] [place] [facility] [address] [id number] [place] [address]- 0848 31 Mar, 2013 [facility] [place] [facility] [address] [id number] [place] [address]- 5956 25 Mar, 2013 [facility] [place] [facility] [address] [id number], [place] [address]- 1057 25 Mar, 2013 [facility] [place] [facility] [address] [id number], [place] [address]- 5173 17 Mar, 2013 [facility] [place] [facility] [address] [id number] [place] [address]- 8122 17 Mar, 2013 [facility] [place] [facility] [address] [id number], [place] [address]- 7555 14 Mar, 2013 [facility] [place] [facility] [address] [id number] [place] [address]- 8301 14 Mar, 2013 [facility] [place] [facility] [address] [id number] [place] [address]- 3565 Mar, [facility] [address] [id number] [place] [address]- 4409 Mar, [facility] [place] [facility] [address] [id number] [place] [address]- 1846 Mar, [facility] [address] [id number] [place] [address]- 7156 30 Feb, 2013 [facility] [place] [facility] [address] [id number] [place] [address]- 6882 28 Feb, 2013 [facility] [address] [id number] [place] [address]- 9515 27 Feb, 2013 [facility] [place] [facility] [address] [id number] [place] [address]- 5011 27 Feb, 2013 [facility] [address] [id number] [place] [address]- 8755 20 Feb, 2013 [facility] [address] [id number] [place] [address]- 2369 10 Feb, 2013 [facility] [place] [facility] [address] [id number] [place] [address]- 9062 Jan, [facility] [address] [id number] [place] [address]- 6810 Jan, [facility] [place] [facility] [address] [id number] [place] [address]- 1294 Dec, [facility] [place] [facility] [address] [id number] [place] [address] 2545 Dec, [facility] [place] [facility] [address] [id number] [place] [address]- 0154 Dec, [facility] [place] [facility] [address] [id number] [place] [address]- 2546 Dec, [facility] [place] [facility] [address] [id number] [place] [address]- 6863 Nov, [facility] [address] [id number] [place] [address]- 9765 Nov, [facility] [place] [facility] [address] [id number] [place] [address]- 4990 Nov, [facility] [address] [id number] [place] [address]- 1650 October, [facility] [place] [facility] [address] [id number] [place] [address]- 8917 October, [facility] [address] [id number] [place] 4[address] October, [facility] [address] [id number] [place] [address]- 1544 October, [facility] [address] [id number] [place] [address]- 7526 October, [facility] [address] [id number] [place] [address]- 1145 Sep, [facility] [place] [facility] [address] [id number] [place] [address] Sep, [facility] [address] [id number] [place] [address] Aug, [facility] [place] [facility] [address] [id number] [place] [address] Aug, [facility] [place] [facility] [address] [id number], [place] [address] Aug, [facility] [place] [facility] [address] [id number] [place] [address] Aug, [facility] [place] [facility] [address] [id number] [place] [address] Aug, [facility] [place] [facility] [address] [id number] [place] [address] Jul, [facility] [place] [facility] [address] [id number] [place] [address] 11 Jul, 2012 [facility] [address] [id number] [place] [address] 06 Jul, 2012 [facility] [place] [facility] [address] [id number] [place] [address] Jul, [facility] [address] [id number] [place] [address] Jun, [facility] [place] [facility] [address] [id number] [place] [address] Jun, [facility] [address] [id number] [place] [address] Jun, [facility] [address] [id number] [place] [address] Jun, [facility] [address] [id number] [place] [address]149 Jun, [facility] [address] [id number] [place] [address] Jun, [facility] [address] [id number] [place] [address] Jun, [facility] [address] [id number] [place] [address] 1429 Jun, [facility] [address] [id number] [place] [address] Jun, [facility] [place] [facility] [address] [id number] [place] [address] 8613 Jun, [facility] [place] [facility] [address] [id number] [place] [address] 1667 Jun, [facility] [place] [facility] [address] [id number] [place] [address] May, [facility] [address] [id number] [place] [address]65 May, [facility] [place] [facility] [address] [id number] [place] [address] Apr, [facility] [place] [facility] [address] [id number] [place] [address] Apr, [facility] [place] [facility] [address] [id number] [place] [address] Mar, [facility] [place] [facility] [address] [id number] [place] [address], [place] [address] Mar, [facility] [place] [facility] [address] [id number] [place] [address] Mar, [facility] [place] [facility] [address] [id number] [place] [address] Mar, [facility] [place] [facility] [address] [id number] [place] [address] Mar, [facility] [place] [facility] [address] [id number] [place] [address] 3098 Mar, [facility] [place] [facility] [address] [id number] [place] [address] Mar, [facility] [place] [facility] [address] [id number] [place] [address]127 Mar, [facility] [place] [facility] [address] [id number] [place] [address] 5[address] Mar, [facility] [place] [facility] [address] [id number] [place] [address] Feb, [facility] [place] [facility] [address] [id number] [place] [address] Jan, [facility] [place] [facility] [address] [id number] [place] [address] Jan, [facility] [place] [facility] [address] [id number] [place] [address] 0146 Dec, [facility] [place] [facility] [address] [id number] [place] [address]- 4637 Dec, [facility] [place] [facility] [address] [id number] [place] [address] Dec, [facility] [place] [facility] [address] [id number] [place] [address] 3765 Nov, [facility] [place] [facility] [address] [id number] [place] [address] 8707 Nov, [facility] [place] [facility] [address] [id number] [place] [address] 9558 Nov, [facility] [place] [facility] [address] [id number] [place] [address] 1466 Nov, [facility] [place] [facility] [address] [id number] [place] [address]- 5283 October, [facility] [place] [facility] [address] [id number] [place] [address] 46[address] October, [facility] [place] [facility] [address] [id number] [place] [address]- 2970 Sep, [facility] [place] [facility] [address] [id number] [place] [address]- 0294 Sep, [facility] [place] [facility] [address] [id number] [place] [address]- 98[address] Aug, [facility] [place] [facility] [address] [id number] [place] [address] Jul, [facility] [place] [facility] [address] [id number] [place] [address]- 9264 Jul, [facility] [place] [facility] [address] [id number] [place] [address]- 0709 Jul, [facility] [place] [facility] [address] [id number] [place] [address]- 0632 Jul, [facility] [place] [facility] [address] [id number] [place] [address]- 3937 Jun, [facility] [place] [facility] [address] [id number] [place] [address]- 8822 15 May, 2011 [facility] [place] [facility] [address] [id number] [place] [address]- 7464 15 May, 2011 [facility] [place] [facility] [address] [id number] [place] [address]- 9255 15 May, 2011 [facility] [place] [facility] [address] [id number] [place] [address]- 8628 13 May, 2011 [facility] [place] [facility] [address] [id number] [place] [address]- 7606 08 May, 2011 [facility] [place] [facility] [address] [id number] [place] [address] 14 Apr, 2011 [facility] [place] [facility] [address] [id number] [place] [address]- 8547 14 Apr, 2011 [facility] [place] [facility] [address] [id number] [place] [address]- 7182 14 Apr, 2011 [facility] [place] [facility] [address] [id number] [place] [address]- 4328 07 Apr, 2011 [facility] [place] [facility] [address] [id number] [place] [address]- 7850 02 Apr, 2011 [facility] [place] [facility] [address] [id number] [place] [address]- 8397 26 Mar, 2011 [facility] [place] [facility] [address] [id number] [place] [address]- 7589 25 Mar, 2011 [facility] [place] [facility] [address] [id number] [place] [address]- 3351 14 Mar, 2011 [facility] [place] [facility] [address] [id number] [place] [address]- 7459 14 Mar, 2011 [facility] [place] [facility] [address] [id number] [place] [address]- 6037 13 Mar, 2011 [facility] [place] [facility] [address] [id number] [place] [address]- 0727 Mar, [facility] [address] [id number], [place] [address] Mar, [facility] [id number], [place] [address] Mar, [facility] [address] [id number], [place] [address] 14 Feb, 2011 [facility] [id number], [place] [address] May, [facility] [address] [id number] [address] May, [facility] [id number], [place] [address] May, [facility] [id number], [place] [address] Apr, [facility] [id number], [place] [address] Mar, IMMUNIZATIONS No Known Immunizations SOCIAL HISTORY Never Assessed REASON FOR VISIT Refill Request PLAN OF CARE VITAL SIGNS MEDICATIONS Medication Instructions Dosage Frequency Start Date End Date Duration Status Omeprazole 20 mg Orally Once a day 1 capsule 24h 90 days Active RESULTS No Results PROCEDURES [...]
--- OUTSIDE RECORDS SUMMARY | 2017-10-15 01:21 | XMS REPORT | Continuity of Care Document ---
Author Author [facility] Address Unknown Phone Unavailable Allergies Active [...] Latex OA N/A N/A 04/26/2013 Yes amoxicillin [id number] Drug Allergy Unknown N/A 07/31/2014 Yes hydrocodone [id number] Drug Allergy Unknown N/A 07/31/2014 Yes morphine [id number] Drug Allergy Unknown N/A 07/31/2014 Yes paroxetine [id number] Drug Allergy Unknown N/A 07/31/2014 Yes Sulfa (Sulfonamide Antibiotics) [id number] Drug Allergy Unknown N/A 2014 Yes sulfamethoxazole [id number] Drug Allergy Unknown N/A 07/31/2014 Yes trimethoprim [id number] Drug Allergy Unknown N/A 07/31/2014 Yes Abilify 2 mg tablet Drug Allergy N/A N/A 08/22/2014 Yes acetaminophen [id number] Drug Allergy Moderate nausea 12/21/2016 Yes codeine [id number] Drug Allergy Moderate nausea 12/21/2016 Yes hydrocodone [id number] Drug Allergy Moderate nausea 12/21/2016 Yes tramadol [id number] Drug Allergy Unknown itching 12/21/2016 Yes cyclobenzaprine [id number] Drug Allergy Unknown N/A 01/15/2017 Medications There is no data. Problems Date Dx Coded Attending Type Code Diagnosis Diagnosed By 12/25/2007 682.9 CELLULITIS AND ABSCESS OF UNSPECIFIED SITES 12/25/2007 884.0 WOUND OPEN UPPER LIMB 12/25/2007 682.9 CELLULITIS AND ABSCESS OF UNSPECIFIED SITES 12/25/2007 884.0 WOUND OPEN UPPER LIMB 12/25/2007 682.9 CELLULITIS AND ABSCESS OF UNSPECIFIED SITES 12/25/2007 884.0 WOUND OPEN UPPER LIMB 12/25/2007 GIBSON APPRAISER OIL AND WATER, MANAV WHITEH 682.9 CELLULITIS AND ABSCESS OF UNSPECIFIED SITES 12/25/2007 GIBSON APPRAISER OIL AND WATER, MANAV LONG 884.0 WOUND OPEN UPPER LIMB 12/25/2007 GIBSON APPRAISER OIL AND WATER, MANAV LONG 682.9 CELLULITIS AND ABSCESS OF UNSPECIFIED SITES 12/25/2007 GIBSON APPRAISER OIL AND WATER, MANAV WHITEH 884.0 WOUND OPEN UPPER LIMB [...] SITES 12/25/2007 DIMPLE PEÑALOZA DO K 884.0 WOUND OPEN UPPER LIMB 12/25/2007 [...] ALVES 884.0 Wound Open Upper Limb 12/25/2007 RAMONMAU Dupont APRN A 682.9 CELLULITIS AND ABSCESS OF UNSPECIFIED SITES 12/25/2007 RAMONMILADY Dupont APRNIDI A 884.0 Wound Open Upper Limb 12/25/2007 PAIGE FARRELLCresencio MANAV ALVES 682.9 CELLULITIS AND ABSCESS OF UNSPECIFIED SITES 12/25/2007 PAIGE HECK MANAV ALVES 884.0 Wound Open Upper Limb 12/25/2007 WENDI BLACK MD 682.9 CELLULITIS AND ABSCESS OF UNSPECIFIED SITES 12/25/2007 WENDI BLACK MD N 884.0 Wound Open Upper Limb 12/25/2007 WENDI BLACK MD 682.9 CELLULITIS AND ABSCESS OF UNSPECIFIED SITES 12/25/2007 WENDI BLACK MD N 884.0 Wound Open Upper Limb 12/25/2007 DIMPLE PEÑALOZA DO K 682.9 CELLULITIS AND ABSCESS OF UNSPECIFIED SITES 12/25/2007 DIMPLE PEÑALOZA DO K 884.0 Wound Open Upper Limb 12/25/2007 PAIGE HECK MANAV ALVES 682.9 CELLULITIS AND ABSCESS OF UNSPECIFIED SITES 12/25/2007 GIBSON APRN, MANAV ALVES 884.0 Wound Open Upper Limb 12/25/2007 DIMPLE [...] Open Upper Limb 12/25/2007 TIN HEREDIA PSYD 682.9 CELLULITIS AND ABSCESS OF UNSPECIFIED SITES 12/25/2007 TIN HEREDIA PSYD L 884.0 Wound Open Upper Limb 12/25/2007 WENDI BLACK MD N 682.9 CELLULITIS AND ABSCESS OF UNSPECIFIED SITES 12/25/2007 WENDI BLACK MD N 884.0 Wound Open Upper Limb 12/25/2007 WENDI BLACK MD N 682.9 CELLULITIS AND ABSCESS OF UNSPECIFIED SITES 12/25/2007 WENDI BLACK MD N 884.0 Wound Open Upper Limb 12/25/2007 CHRISTEL MOLD FILLER AND DRAINER, CARLOS M 682.9 CELLULITIS AND ABSCESS OF UNSPECIFIED SITES 12/25/2007 CHRISTEL MOLD FILLER AND DRAINER, CARLOS M 884.0 Wound Open Upper Limb 12/25/2007 CHIRSTEL MOLD FILLER AND DRAINER, CARLOS M 682.9 CELLULITIS AND ABSCESS OF UNSPECIFIED SITES 12/25/2007 CHRISTEL MOLD FILLER AND DRAINER, CARLOS M 884.0 Wound Open Upper Limb 12/25/2007 CHRISTEL MOLD FILLER AND DRAINER, CARLOS M 682.9 CELLULITIS AND ABSCESS OF UNSPECIFIED SITES 12/25/2007 CHRISTEL MOLD FILLER AND DRAINER, CARLOS M 884.0 Wound Open Upper Limb 12/25/2007 CHRISTEL MOLD FILLER AND DRAINER, CARLOS M 682.9 CELLULITIS AND ABSCESS OF UNSPECIFIED SITES 12/25/2007 CHRISTEL MOLD FILLER AND DRAINER, CARLOS M 884.0 Wound Open Upper Limb 02/10/2010 Ot 724.2 05/27/2010 296.90 MO MOOD DIS NOS 05/27/2010 301.83 PD BORDERLINE 05/27/2010 296.90 MO MOOD DIS NOS 05/27/2010 301.83 PD BORDERLINE 05/27/2010 296.90 MO MOOD DIS NOS 05/27/2010 301.83 PD BORDERLINE 05/27/2010 MANAV GIBSON APRN 296.90 MO MOOD DIS NOS 05/27/2010 MANAV GIBSON APRN 301.83 PD BORDERLINE 05/27/2010 MANAV GIBSON APRN 296.90 MO MOOD DIS NOS 05/27/2010 MANAV GIBSON APRN 301.83 PD BORDERLINE 05/27/2010 296.90 MO MOOD [...] DIMPLE K 301.83 PD BORDERLINE 05/27/2010 GIBSON APPRAISER OIL AND WATER, MANAV ALVES 296.90 MO MOOD DIS NOS 05/27/2010 GIBSON APPRAISER OIL AND WATER, MANAV ALVES 301.83 PD BORDERLINE 05/27/2010 RAMON APPRAISER OIL AND WATER, MAU A 296.90 MO MOOD DIS NOS 05/27/2010 RAMON APPRAISER OIL AND WATER, MAU A 301.83 PD BORDERLINE 05/27/2010 GIBSON APPRAISER OIL AND WATER, MANAV ALVES 296.90 MO MOOD DIS NOS 05/27/2010 GIBSON APPRAISER OIL AND WATER, MANAV ALVES 301.83 PD BORDERLINE 05/27/2010 WENDI BLACK MD N 296.90 MO MOOD DIS NOS 05/27/2010 WENDI BLACK MD 301.83 PD BORDERLINE 05/27/2010 WENDI BLACK MD N 296.90 MO MOOD DIS NOS 05/27/2010 WENDI BLACK MD 301.83 PD BORDERLINE 05/27/2010 PEÑALOZA DO, DIMPLE K 296.90 MO MOOD DIS NOS 05/27/2010 PEÑALOZA DO, DIMPLE K 301.83 PD BORDERLINE 05/27/2010 GIBSON APPRAISER OIL AND WATER, MANAV WHITEH 296.90 MO MOOD DIS NOS 05/27/2010 GIBSON UMANG MANAV LONG 301.83 PD BORDERLINE 05/27/2010 PEÑALOZA DO, DIMPLE K 296.90 MO MOOD DIS NOS 05/27/2010 PEÑALOZA DO, DIMPLE K 301.83 PD BORDERLINE 05/27/2010 WENDI BLACK MD N 296.90 MO MOOD DIS NOS 05/27/2010 WENDI BLACK MD N 301.83 PD BORDERLINE 05/27/2010 WENDI BLACK MD N 296.90 MO MOOD DIS NOS 05/27/2010 WENDI BLACK MD N 301.83 PD BORDERLINE 05/27/2010 TIN HEREDIA PSYD L 296.90 MO MOOD DIS NOS 05/27/2010 TIN HEREDIA PSYD L 301.83 PD BORDERLINE 05/27/2010 WENDI BLACK MD N 296.90 MO MOOD DIS NOS 05/27/2010 WENDI BLACK MD N 301.83 PD BORDERLINE 05/27/2010 WENDI BLACK MD N 296.90 MO MOOD DIS NOS 05/27/2010 WENDI BLACK MD N 301.83 PD BORDERLINE 05/27/2010 CHRISTEL MOLD FILLER AND DRAINER, CARLOS M 296.90 MO MOOD DIS NOS 05/27/2010 CHRISTEL MOLD FILLER AND DRAINER, CARLOS M 301.83 PD BORDERLINE 05/27/2010 CHRISTEL MOLD FILLER AND DRAINER, CARLOS M 296.90 MO MOOD DIS NOS 05/27/2010 CHRISTEL MOLD FILLER AND DRAINER, CARLOS M 301.83 PD BORDERLINE 05/27/2010 CHRISTEL MOLD FILLER AND DRAINER, CARLOS M 296.90 MO MOOD DIS NOS 05/27/2010 CHRISTEL MOLD FILLER AND DRAINER, CARLOS M 301.83 PD BORDERLINE 05/27/2010 CHRISTEL MOLD FILLER AND DRAINER, CARLOS M 296.90 MO MOOD DIS NOS 05/27/2010 CHRISTEL MOLD FILLER AND DRAINER, CARLOS M 301.83 PD BORDERLINE 06/17/2010 296.80 [...] DIMPLE K 300.02 AN GEN ANXIETY 06/17/2010 BRADEN RICE, TEOFILO Deras 296.80 MO BIPOLAR NOS 06/17/2010 TEOFILO FELICIANO MD 300.02 AN GEN ANXIETY 06/17/2010 PEÑALOZA DO, DIMPLE K 296.80 MO BIPOLAR NOS 06/17/2010 PEÑALOZA DO, DIMPLE K 300.02 AN GEN ANXIETY 06/17/2010 GIBSON UMANG, MANAV ALVES 296.80 MO BIPOLAR NOS 06/17/2010 GIBSON APPRAISER OIL AND WATER, MANAV ALVES 300.02 AN GEN ANXIETY 06/17/2010 RAMON APRN, MAU A 296.80 MO BIPOLAR NOS 06/17/2010 RAMON APRN, MAU A 300.02 AN GEN ANXIETY 06/17/2010 GIBSON APRN, MANAV ALVES 296.80 MO BIPOLAR NOS 06/17/2010 GIBSON UMANG MANAV ALVES 300.02 AN GEN ANXIETY 06/17/2010 WENDI BLACK MD 296.80 MO BIPOLAR NOS 06/17/2010 WENDI BLACK MD 300.02 AN GEN ANXIETY 06/17/2010 WENDI BLACK MD 296.80 MO BIPOLAR NOS 06/17/2010 WENDI BLACK MD 300.02 AN GEN ANXIETY 06/17/2010 JH DO, DIMPLE K 296.80 MO BIPOLAR NOS 06/17/2010 PEÑALOZA DO, DIMPLE K 300.02 AN GEN ANXIETY 06/17/2010 PAIGE HECK, MANAV ALVES 296.80 MO BIPOLAR NOS 06/17/2010 GIBSON APRN, MANAV WHITEH 300.02 AN GEN ANXIETY 06/17/2010 PEÑALOZA DO, DIMPLE K 296.80 MO BIPOLAR NOS 06/17/2010 PEÑALOZA DO, DIMPLE K 300.02 AN GEN ANXIETY 06/17/2010 WENDI BLACK MD 296.80 MO BIPOLAR NOS 06/17/2010 WENDI BLACK MD 300.02 AN GEN ANXIETY 06/17/2010 SOFIA MD, WENDI N 296.80 MO BIPOLAR NOS 06/17/2010 WENDI BLACK MD N 300.02 AN GEN ANXIETY 06/17/2010 TIN HEREDIA PSYD ANN L 296.80 MO BIPOLAR NOS 06/17/2010 TIN HEREDIA PSYD ANN L 300.02 AN GEN ANXIETY 06/17/2010 WENDI BLACK MD N 296.80 MO BIPOLAR NOS 06/17/2010 WENDI BLACK MD N 300.02 AN GEN ANXIETY 06/17/2010 WENDI BLACK MD N 296.80 MO BIPOLAR NOS 06/17/2010 WENDI BLACK MD N 300.02 AN GEN ANXIETY 06/17/2010 CHRISTEL MOLD FILLER AND DRAINER, CARLOS M 296.80 MO BIPOLAR NOS 06/17/2010 CHRISTEL MOLD FILLER AND DRAINER, CARLOS M 300.02 AN GEN ANXIETY 06/17/2010 CHRISTEL MOLD FILLER AND DRAINER, CARLOS M 296.80 MO BIPOLAR NOS 06/17/2010 CHRISTEL MOLD FILLER AND DRAINER, CARLOS M 300.02 AN GEN ANXIETY 06/17/2010 CHRISTEL MOLD FILLER AND DRAINER, CARLOS M 296.80 MO BIPOLAR NOS 06/17/2010 CHRISTEL MOLD FILLER AND DRAINER, CARLOS M 300.02 AN GEN ANXIETY 06/17/2010 CHRISTEL MOLD FILLER AND DRAINER, CARLOS M 296.80 MO BIPOLAR NOS 06/17/2010 CHRISTEL MOLD FILLER AND DRAINER, CARLOS M 300.02 AN GEN ANXIETY 10/14/2010 [...] GIBSON APRN 296.89 MO BIPOLAR II 10/14/2010 RAMON APPRAISER OIL AND WATER, MAU A 296.89 MO BIPOLAR II 10/14/2010 PAIGE HECK, MANAV ALVES 296.89 MO BIPOLAR II 10/14/2010 SOFIA RICE, WENDI N 296.89 MO BIPOLAR II 10/14/2010 SOFIA RICE, WENDI N 296.89 MO BIPOLAR II 10/14/2010 PEÑALOZA DIMPLE YEPEZ K 296.89 MO BIPOLAR II 10/14/2010 PAIGE HECK, [...] WENDI N 296.89 MO BIPOLAR II 10/14/2010 CARLOS AHUJA M 296.89 MO BIPOLAR II 10/14/2010 CHRISTEL SALAZAR, CARLOS M 296.89 MO BIPOLAR II 10/14/2010 CHRISTEL MOLD FILLER AND DRAINER, CARLOS M 296.89 MO BIPOLAR II 10/14/2010 CHRISTEL MOLD FILLER AND DRAINER, CARLOS M 296.89 MO BIPOLAR II 03/22/2011 V72.31 CHAIRMAN PRESIDENT AND CHIEF EXECUTIVE OFFICER EXAM, ROUTINE 03/22/2011 V72.31 CHAIRMAN PRESIDENT AND CHIEF EXECUTIVE OFFICER EXAM, ROUTINE 03/22/2011 V72.31 CHAIRMAN PRESIDENT AND CHIEF EXECUTIVE OFFICER EXAM, ROUTINE 03/22/2011 PAIGE HECK MANAV ALVES V72.31 CHAIRMAN PRESIDENT AND CHIEF EXECUTIVE OFFICER EXAM, ROUTINE 03/22/2011 PAIGE HECK MANAV LONG V72.31 CHAIRMAN PRESIDENT AND CHIEF EXECUTIVE OFFICER EXAM, ROUTINE 03/22/2011 V72.31 CHAIRMAN PRESIDENT AND CHIEF EXECUTIVE OFFICER EXAM, ROUTINE 03/22/2011 DIMPLE PEÑALOZA DO V72.31 CHAIRMAN PRESIDENT AND CHIEF EXECUTIVE OFFICER EXAM, ROUTINE 03/22/2011 V72.31 CHAIRMAN PRESIDENT AND CHIEF EXECUTIVE OFFICER EXAM, ROUTINE 03/22/2011 V72.31 CHAIRMAN PRESIDENT AND CHIEF EXECUTIVE OFFICER EXAM, ROUTINE 03/22/2011 V72.31 CHAIRMAN PRESIDENT AND CHIEF EXECUTIVE OFFICER EXAM, ROUTINE 03/22/2011 DIMPLE PEÑALOZA DO V72.31 CHAIRMAN PRESIDENT AND CHIEF EXECUTIVE OFFICER EXAM, ROUTINE 03/22/2011 TEOFILO FELICIANO MD V72.31 CHAIRMAN PRESIDENT AND CHIEF EXECUTIVE OFFICER EXAM, ROUTINE 03/22/2011 DIMPLE PEÑALOZA DO V72.31 CHAIRMAN PRESIDENT AND CHIEF EXECUTIVE OFFICER EXAM, ROUTINE 03/22/2011 PAIGE HECK MANAV WHITEH V72.31 CHAIRMAN PRESIDENT AND CHIEF EXECUTIVE OFFICER EXAM, ROUTINE 03/22/2011 MAU NAVARRO APRN V72.31 CHAIRMAN PRESIDENT AND CHIEF EXECUTIVE OFFICER EXAM, ROUTINE 03/22/2011 GIBSONERIN HECK, MANAV ALVES V72.31 CHAIRMAN PRESIDENT AND CHIEF EXECUTIVE OFFICER EXAM, ROUTINE 03/22/2011 SOFIA RICE, WENDI Dupont V72.31 CHAIRMAN PRESIDENT AND CHIEF EXECUTIVE OFFICER EXAM, ROUTINE 03/22/2011 SOFIA RICE, WENDI Dupont V72.31 CHAIRMAN PRESIDENT AND CHIEF EXECUTIVE OFFICER EXAM, ROUTINE 03/22/2011 DIMPLE PEÑALOZA DO V72.31 CHAIRMAN PRESIDENT AND CHIEF EXECUTIVE OFFICER EXAM, ROUTINE 03/22/2011 PAIGE HECK MANAV LONG V72.31 CHAIRMAN PRESIDENT AND CHIEF EXECUTIVE OFFICER EXAM, ROUTINE 03/22/2011 DIMPLE PEÑALOZA DO V72.31 CHAIRMAN PRESIDENT AND CHIEF EXECUTIVE OFFICER EXAM, ROUTINE 03/22/2011 SOFIA RICE, WENDI N V72.31 CHAIRMAN PRESIDENT AND CHIEF EXECUTIVE OFFICER EXAM, ROUTINE 03/22/2011 SOFIA RICE, WENDI N V72.31 CHAIRMAN PRESIDENT AND CHIEF EXECUTIVE OFFICER EXAM, ROUTINE 03/22/2011 TIN HEREDIA PSYD V72.31 CHAIRMAN PRESIDENT AND CHIEF EXECUTIVE OFFICER EXAM, ROUTINE 03/22/2011 SOFIA RICE, WENDI N V72.31 CHAIRMAN PRESIDENT AND CHIEF EXECUTIVE OFFICER EXAM, ROUTINE 03/22/2011 SOFIA RICE, WENDI N V72.31 CHAIRMAN PRESIDENT AND CHIEF EXECUTIVE OFFICER EXAM, ROUTINE 03/22/2011 CHRISTEL MOLD FILLER AND DRAINERALBERTOCARLOS M V72.31 CHAIRMAN PRESIDENT AND CHIEF EXECUTIVE OFFICER EXAM, ROUTINE 03/22/2011 CHRISTEL MOLD FILLER AND DRAINER, CARLOS M V72.31 CHAIRMAN PRESIDENT AND CHIEF EXECUTIVE OFFICER EXAM, ROUTINE 03/22/2011 CHRISTEL MOLD FILLER AND DRAINER, CARLOS M V72.31 CHAIRMAN PRESIDENT AND CHIEF EXECUTIVE OFFICER EXAM, ROUTINE 03/22/2011 CHRISTEL MOLD FILLER AND DRAINER, CARLOS M V72.31 CHAIRMAN PRESIDENT AND CHIEF EXECUTIVE OFFICER EXAM, ROUTINE 05/26/2011 465.9 UPPER RESPIRATORY INFECTION 05/26/2011 465.9 UPPER RESPIRATORY INFECTION 05/26/2011 465.9 UPPER RESPIRATORY INFECTION 05/26/2011 PAIGE HECK MANAV ALVES 465.9 UPPER RESPIRATORY INFECTION 05/26/2011 PAIGE HECK MANAV ALVES 465.9 UPPER RESPIRATORY INFECTION 05/26/2011 465.9 UPPER RESPIRATORY INFECTION 05/26/2011 DIMPLE PEÑALOZA DO 465.9 UPPER RESPIRATORY INFECTION 05/26/2011 465.9 UPPER RESPIRATORY INFECTION 05/26/2011 465.9 UPPER RESPIRATORY INFECTION 05/26/2011 465.9 UPPER RESPIRATORY INFECTION 05/26/2011 PEÑALOZA DO, DIMPLE K 465.9 UPPER RESPIRATORY INFECTION 05/26/2011 TEOFILO FELICIANO MD M 465.9 UPPER RESPIRATORY INFECTION 05/26/2011 PEÑALOZA DO, DIMPLE K 465.9 UPPER RESPIRATORY INFECTION 05/26/2011 PAIGE HECK MANAV LONG 465.9 UPPER RESPIRATORY INFECTION 05/26/2011 RAMON HECK, MAU A 465.9 UPPER RESPIRATORY INFECTION 05/26/2011 PAIGE HECK MANAV LONG 465.9 UPPER RESPIRATORY INFECTION 05/26/2011 WENDI BLACK MD N 465.9 UPPER RESPIRATORY INFECTION 05/26/2011 WENDI BLACK MD N 465.9 UPPER RESPIRATORY INFECTION 05/26/2011 PEÑALOZA , DIMPLE K 465.9 UPPER RESPIRATORY INFECTION 05/26/2011 PAIGE HECK MANAV LONG 465.9 UPPER RESPIRATORY INFECTION 05/26/2011 PEÑALOZA , [...] M 465.9 UPPER RESPIRATORY INFECTION 05/26/2011 CHRISTEL MOLD FILLER AND DRAINER, CARLOS M 465.9 UPPER RESPIRATORY INFECTION 07/14/2011 [...] FAMILY HISTORY OF DIABETES MELLITUS 07/14/2011 PAIGE HECK, MANAV ALVES 401.1 HYPERTENSION, BENIGN ESSENTIAL 07/14/2011 PAIGE HECK, MANAV ALVES 783.5 POLYDIPSIA 07/14/2011 MANAV GIBSON APRN V18.0 FAMILY HISTORY OF DIABETES MELLITUS 07/14/2011 401.1 HYPERTENSION, BENIGN ESSENTIAL 07/14/2011 783.5 Polydipsia 07/14/2011 V18.0 FAMILY HISTORY OF DIABETES MELLITUS 07/14/2011 DIMPEL PEÑALOZA DO 401.1 HYPERTENSION, BENIGN ESSENTIAL 07/14/2011 [...] DO 783.5 POLYDIPSIA 07/14/2011 DIMPLE PEÑALOZA DO V18.0 FAMILY HISTORY [...] FARRELLCresencio MANAV ALVES 783.5 Polydipsia 07/14/2011 PAIGE FARRELLCresencio MANAV ALVES V18.0 FAMILY HISTORY OF DIABETES MELLITUS 07/14/2011 RAMON FARRELLCresencio MAU A 401.1 HYPERTENSION, BENIGN ESSENTIAL 07/14/2011 RAMON FARRELLCresencio MAU A 783.5 Polydipsia 07/14/2011 RAMON FARRELLCresencio MAU A V18.0 FAMILY HISTORY OF DIABETES MELLITUS 07/14/2011 PAIGE FARRELLCresencio MANAV ALVES 401.1 HYPERTENSION, BENIGN ESSENTIAL 07/14/2011 PAIGE FARRELLCresencio MANAV ALVES 783.5 Polydipsia 07/14/2011 PAIGE FARRELLCresencio [...] DO K 401.1 HYPERTENSION, BENIGN ESSENTIAL 07/14/2011 DIMPLE PEÑALOZA DO K 783.5 Polydipsia 07/14/2011 AQUILES PEÑALOZA DOA K V18.0 FAMILY HISTORY OF DIABETES MELLITUS 07/14/2011 GIBSONERIN FARRELLCresencio MANAV WHITEH 401.1 HYPERTENSION, BENIGN ESSENTIAL 07/14/2011 GIBSONERIN FARRELLCresencio MANAV WHITEH 783.5 Polydipsia 07/14/2011 GIBSONERIN FARRELLCresencio MANAV WHITEH V18.0 FAMILY HISTORY OF DIABETES MELLITUS 07/14/2011 AQUILES PEÑALOZA DOA K 401.1 HYPERTENSION, BENIGN ESSENTIAL 07/14/2011 PEÑALOZA DO DIMPLE K 783.5 Polydipsia 07/14/2011 JH YEPEZ DIMPLE K V18.0 FAMILY HISTORY OF DIABETES MELLITUS 07/14/2011 WENDI BLACK MD 401.1 HYPERTENSION, BENIGN ESSENTIAL 07/14/2011 WENDI BLACK MD N 783.5 Polydipsia 07/14/2011 WENDI BLACK MD N V18.0 FAMILY HISTORY OF DIABETES MELLITUS 07/14/2011 WENDI BLACK MD 401.1 HYPERTENSION, BENIGN ESSENTIAL 07/14/2011 WENDI BLACK MD N 783.5 Polydipsia 07/14/2011 WENDI BLACK MD N V18.0 FAMILY HISTORY OF DIABETES MELLITUS 07/14/2011 TIN HERDEIA PSYD ANN L 401.1 HYPERTENSION, BENIGN ESSENTIAL 07/14/2011 TIN HEREDIA PSYD ANN L 783.5 Polydipsia 07/14/2011 TIN HEREDIA PSYD L V18.0 FAMILY HISTORY OF DIABETES MELLITUS 07/14/2011 WENDI BLACK MD 401.1 HYPERTENSION, BENIGN ESSENTIAL 07/14/2011 WENDI BLACK MD 783.5 Polydipsia 07/14/2011 WENDI BLAKC MD N V18.0 FAMILY HISTORY OF DIABETES MELLITUS 07/14/2011 WENDI BLACK MD 401.1 HYPERTENSION, BENIGN ESSENTIAL 07/14/2011 WENDI BLACK MD 783.5 Polydipsia 07/14/2011 WENDI BLACK MD N V18.0 FAMILY HISTORY OF DIABETES MELLITUS 07/14/2011 CARLOS AHUJA M 401.1 HYPERTENSION, BENIGN ESSENTIAL 07/14/2011 CHRISTEL MOLD FILLER AND DRAINER, CARLOS M 783.5 Polydipsia 07/14/2011 CHRISTEL MOLD FILLER AND DRAINER, CARLOS M V18.0 FAMILY HISTORY OF DIABETES MELLITUS 07/14/2011 CHRISTEL MOLD FILLER AND DRAINER, CARLOS M 401.1 HYPERTENSION, BENIGN ESSENTIAL 07/14/2011 CHRISTEL MOLD FILLER AND DRAINER, CARLOS M 783.5 Polydipsia 07/14/2011 CHRISTEL MOLD FILLER AND DRAINER, CARLOS M V18.0 FAMILY HISTORY OF DIABETES MELLITUS 07/14/2011 CHRISTEL MOLD FILLER AND DRAINER, CARLOS M 401.1 HYPERTENSION, BENIGN ESSENTIAL 07/14/2011 CHRISTEL MOLD FILLER AND DRAINER, CARLOS M 783.5 Polydipsia 07/14/2011 CHRISTEL MOLD FILLER AND DRAINER, CARLOS M V18.0 FAMILY HISTORY OF DIABETES MELLITUS 07/14/2011 CHRISTEL MOLD FILLER AND DRAINER, CARLOS M 401.1 HYPERTENSION, BENIGN ESSENTIAL 07/14/2011 CARLOS AHUJA M 783.5 Polydipsia 07/14/2011 CARLOS AHUJA M V18.0 FAMILY HISTORY OF DIABETES MELLITUS 07/16/2011 272.4 HYPERLIPIDEMIA 07/16/2011 272.4 HYPERLIPIDEMIA 07/16/2011 272.4 HYPERLIPIDEMIA 07/16/2011 GIBSON APPRAISER OIL AND WATER, MANAV ALVES 272.4 HYPERLIPIDEMIA 07/16/2011 GIBSON APPRAISER OIL AND WATER, MANAV ALVES 272.4 HYPERLIPIDEMIA 07/16/2011 272.4 HYPERLIPIDEMIA 07/16/2011 PEÑALOZA DO DIMPLE K 272.4 HYPERLIPIDEMIA 07/16/2011 272.4 HYPERLIPIDEMIA 07/16/2011 272.4 HYPERLIPIDEMIA 07/16/2011 272.4 HYPERLIPIDEMIA 07/16/2011 PEÑALOZA DO DIMPLE K 272.4 HYPERLIPIDEMIA 07/16/2011 BRADEN RICE, TEOFILO M 272.4 HYPERLIPIDEMIA 07/16/2011 PEÑALOZA DO DIMPLE K 272.4 HYPERLIPIDEMIA 07/16/2011 GIBSONERIN HECK, MANAV ALVES 272.4 HYPERLIPIDEMIA 07/16/2011 MAU NAVARRO APRN 272.4 HYPERLIPIDEMIA 07/16/2011 GIBSON APPRAISER OIL AND WATER, MANAV ALVES 272.4 HYPERLIPIDEMIA 07/16/2011 SOFIA RICE, WENDI N 272.4 HYPERLIPIDEMIA 07/16/2011 WENDI BLACK MD N 272.4 HYPERLIPIDEMIA 07/16/2011 PEÑALOZA DO DIMPLE K 272.4 HYPERLIPIDEMIA 07/16/2011 PAIGE APPRAISER OIL AND WATER, MANAV ALVES 272.4 HYPERLIPIDEMIA 07/16/2011 PEÑALOZA DO DIMPLE K 272.4 HYPERLIPIDEMIA 07/16/2011 WENDI BLACK MD N 272.4 HYPERLIPIDEMIA 07/16/2011 WENDI BLACK MD N 272.4 HYPERLIPIDEMIA 07/16/2011 TIN HEREDIA PSYD 272.4 HYPERLIPIDEMIA 07/16/2011 WENDI BLACK MD N 272.4 HYPERLIPIDEMIA 07/16/2011 WENDI BLACK MD N 272.4 HYPERLIPIDEMIA 07/16/2011 CARLOS AHUJA M 272.4 HYPERLIPIDEMIA 07/16/2011 CARLOS AHUJA M 272.4 HYPERLIPIDEMIA 07/16/2011 CARLOS AHUJA M 272.4 HYPERLIPIDEMIA 07/16/2011 CARLOS AHUJA M 272.4 HYPERLIPIDEMIA 11/15/2011 054.10 GENITAL HERPES UNSPECIFIED 11/15/2011 054.10 GENITAL HERPES UNSPECIFIED 11/15/2011 054.10 GENITAL HERPES UNSPECIFIED 11/15/2011 GIBSON APRN, MANAV ALVES 054.10 GENITAL HERPES UNSPECIFIED 11/15/2011 PAIGE FARRELLCresencio MANAV ALVES 054.10 GENITAL HERPES UNSPECIFIED 11/15/2011 054.10 GENITAL HERPES UNSPECIFIED 11/15/2011 JH YEPEZDIMPLE K 054.10 GENITAL HERPES UNSPECIFIED 11/15/2011 054.10 GENITAL HERPES UNSPECIFIED 11/15/2011 054.10 GENITAL HERPES UNSPECIFIED 11/15/2011 054.10 GENITAL HERPES UNSPECIFIED 11/15/2011 PEÑALOZA AQUILESA K 054.10 GENITAL HERPES UNSPECIFIED 11/15/2011 TEOFILO FELICIANO MD 054.10 GENITAL HERPES UNSPECIFIED 11/15/2011 JH YEPEZDIMPLE K 054.10 GENITAL HERPES UNSPECIFIED 11/15/2011 GIBSONERIN HECK MANAV ALVES 054.10 GENITAL HERPES UNSPECIFIED 11/15/2011 MAU NAVARRO APRN 054.10 GENITAL HERPES UNSPECIFIED 11/15/2011 GIBSONERIN HECK MANAV ALVES 054.10 GENITAL HERPES UNSPECIFIED 11/15/2011 WENDI BLACK MD N 054.10 GENITAL HERPES UNSPECIFIED 11/15/2011 WENDI BLACK MD N 054.10 GENITAL HERPES UNSPECIFIED 11/15/2011 PEÑALOZA DIMPLE YEPEZ K 054.10 GENITAL HERPES UNSPECIFIED 11/15/2011 PAIGE HECK MANAV WHITEH 054.10 GENITAL HERPES UNSPECIFIED 11/15/2011 PEÑALOZA DIMPLE [...] 054.10 GENITAL HERPES UNSPECIFIED 11/15/2011 CARLOS AHUJA M 054.10 GENITAL HERPES UNSPECIFIED 11/15/2011 CARLOS AHUJA M 054.10 GENITAL HERPES UNSPECIFIED 11/15/2011 CARLOS AHUJA M 054.10 GENITAL HERPES UNSPECIFIED 03/27/2012 786.05 SHORTNESS OF BREATH 03/27/2012 786.50 CHEST PAIN 03/27/2012 787.02 NAUSEA ALONE 03/27/2012 786.05 SHORTNESS OF BREATH 03/27/2012 786.50 CHEST PAIN 03/27/2012 787.02 NAUSEA ALONE 03/27/2012 786.05 SHORTNESS OF BREATH 03/27/2012 786.50 CHEST PAIN 03/27/2012 787.02 NAUSEA ALONE 03/27/2012 PAIGE HECK, MANAV ALVES 786.05 SHORTNESS OF BREATH 03/27/2012 PAIGE HECK, MANAV ALVES 786.50 CHEST PAIN 03/27/2012 PAIGE FARRELLN, MANAV ALVES 787.02 NAUSEA ALONE 03/27/2012 PAIGE FARRELLCresencio MANAV ALVES 786.05 SHORTNESS OF BREATH 03/27/2012 PAIGE FARRELLN, MANAV ALVES 786.50 CHEST PAIN 03/27/2012 PAIGE HECK, MANAV ALVES 787.02 NAUSEA ALONE 03/27/2012 786.05 Shortness Of Breath 03/27/2012 786.50 Chest Pain 03/27/2012 787.02 Nausea Alone 03/27/2012 AQUILES PEÑALOZA DOA K 786.05 Shortness Of Breath 03/27/2012 AQUILES PEÑALOZA DOA K 786.50 Chest Pain 03/27/2012 AQUILES PEÑALOZA DOA K 787.02 Nausea Alone 03/27/2012 786.05 Shortness [...] DIMPLE K 787.02 Nausea Alone 03/27/2012 GIBSON APPRAISER OIL AND WATER, MANAV LAVES 786.05 Shortness Of Breath 03/27/2012 GIBSON APPRAISER OIL AND WATER, MANAV ALVES 786.50 Chest Pain 03/27/2012 GIBSON APPRAISER OIL AND WATER, MANAV ALVES 787.02 Nausea Alone 03/27/2012 RAMONMARGARETH HECK MAU A 786.05 Shortness Of Breath 03/27/2012 RAMONMILADY ZULUAGA APRNIDI A 786.50 Chest Pain 03/27/2012 RAMONMARGARETH HECK MAU A 787.02 Nausea Alone 03/27/2012 GIBSON UMANG MANAV ALVES 786.05 Shortness Of Breath 03/27/2012 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 APPRAISER OIL AND WATER, MANAV ALVES 786.50 Chest Pain 03/27/2012 GIBSON APPRAISER OIL AND WATER, MANAV ALVES 787.02 Nausea Alone 03/27/2012 WENDI BLACK MD [...] DIMPLE K 787.02 Nausea Alone 03/27/2012 GIBSON APPRAISER OIL AND WATER, MANAV ALVES 786.05 Shortness Of Breath 03/27/2012 GIBSON APPRAISER OIL AND WATER, MANAV ALVES 786.50 Chest Pain 03/27/2012 MANAV GIBSON APRN 787.02 Nausea Alone 03/27/2012 PEÑALOZA DO, DIMPLE [...] M 786.50 Chest Pain 03/27/2012 CARLOS AHUJA 787.02 Nausea Alone 03/27/2012 CARLOS AHUJA 786.05 Shortness Of Breath 03/27/2012 CARLOS AHUJA M 786.50 Chest Pain 03/27/2012 CARLOS AHUJA 787.02 Nausea Alone 06/21/2012 PAIGE HECK MANAV WHITEH 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 06/21/2012 PAIGE HECK MANAV LONG 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 06/21/2012 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 06/21/2012 DIMPLE PEÑALOZA DO K 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 06/21/2012 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 06/21/2012 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 06/21/2012 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 06/21/2012 TEOFILO FELICIANO MD 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 06/21/2012 DIMPLE PEÑALOZA DO K 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 06/21/2012 PAIGE HECK MANAV LONG 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 06/21/2012 MAU NAVARRO APRN A 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 06/21/2012 PAIGE HECK MANAV LONG 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 06/21/2012 WENDI BLACK MD N 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 06/21/2012 WENDI BLACK MD 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 06/21/2012 DIMPLE PEÑALOZA DO K 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 06/21/2012 MANAV GIBSON APRN 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 06/21/2012 DIMPLE PEÑALOZA DO K 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 06/21/2012 WENDI BLACK MD N 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 06/21/2012 WENDI BLACK MD N 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 06/21/2012 TIN HEREDIA PSYD 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 06/21/2012 WENDI BLACK MD N 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 06/21/2012 WENDI BLACK MD N 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 06/21/2012 CARLOS AHUJA M 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 06/21/2012 CHRISTEL MOLD FILLER AND DRAINER, CARLOS M 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 06/21/2012 CHRISTEL MOLD FILLER AND DRAINER, CARLOS M 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 06/21/2012 CHRISTEL MOLD FILLER AND DRAINER, CARLOS M 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 08/24/2012 [...] 466.0 BRONCHITIS, ACUTE 09/04/2012 TEOFILO FELICIANO MD M 466.0 BRONCHITIS, ACUTE 09/04/2012 DIMPLE PEÑALOZA DO K 466.0 BRONCHITIS, ACUTE 09/04/2012 PAIGE HECK, MANAV LONG 466.0 BRONCHITIS, ACUTE 09/04/2012 MAU NAVARRO APRN 466.0 BRONCHITIS, ACUTE 09/04/2012 PAIGE HECK, MANAV LONG 466.0 BRONCHITIS, ACUTE 09/04/2012 WENDI [...] N 466.0 BRONCHITIS, ACUTE 09/04/2012 CARLOS AHUJA M 466.0 BRONCHITIS, ACUTE 09/04/2012 CARLOS AHUJA M 466.0 BRONCHITIS, ACUTE 09/04/2012 CARLOS AHUJA M 466.0 BRONCHITIS, ACUTE 09/04/2012 CHRISTEL MOLD FILLER AND DRAINER, CARLOS M 466.0 BRONCHITIS, ACUTE 10/30/2012 782.3 EDEMA 10/30/2012 782.3 EDEMA 10/30/2012 BRADEN RICE, TEOFILO Deras 782.3 EDEMA 10/30/2012 PEÑALOZA DIMPLE YEPEZ K 782.3 EDEMA 10/30/2012 PAIGE HECK, MANAV WHITEH 782.3 EDEMA 10/30/2012 RAMON HECK, MAU A 782.3 EDEMA 10/30/2012 PAIGE HECK, MANAV ALVES 782.3 EDEMA 10/30/2012 SOFIA RICE, WENDI N 782.3 EDEMA 10/30/2012 SOFIA RICE, WENDI N 782.3 EDEMA 10/30/2012 PEÑALOZA DO, DIMPLE K 782.3 EDEMA 10/30/2012 PAIGE HECK, MANAV WHIETH 782.3 EDEMA 10/30/2012 PEÑALOZA DO, DIMPLE K 782.3 EDEMA 10/30/2012 SOFIA RICE, WENDI N 782.3 EDEMA 10/30/2012 SOFIA RICE, WENDI N 782.3 EDEMA 10/30/2012 TIN HEREDIA PSYD L 782.3 EDEMA 10/30/2012 SOFIA RICE, WENDI N 782.3 EDEMA 10/30/2012 SOFIA RICE, WENDI N 782.3 EDEMA 10/30/2012 CHRISTEL MOLD FILLER AND DRAINER, CARLOS M 782.3 EDEMA 10/30/2012 CHRISTEL MOLD FILLER AND DRAINER, CARLOS M 782.3 EDEMA 10/30/2012 CHRISTEL MOLD FILLER AND DRAINER, CARLOS M 782.3 EDEMA 10/30/2012 CHRISTEL MOLD FILLER AND DRAINER, CARLOS M 782.3 EDEMA 11/07/2012 008.8 GASTROENTERITIS, VIRAL 11/07/2012 TEOFILO FELICIANO MD 008.8 GASTROENTERITIS, VIRAL 11/07/2012 DIMPLE PEÑALOZA DO K 008.8 GASTROENTERITIS, VIRAL 11/07/2012 PAIGE HECK MANAV LONG 008.8 GASTROENTERITIS, VIRAL 11/07/2012 MAU NAVARRO APRN A 008.8 GASTROENTERITIS, VIRAL 11/07/2012 PAIGE HECK MANAV LONG 008.8 GASTROENTERITIS, VIRAL 11/07/2012 WENDI BLACK MD N 008.8 GASTROENTERITIS, VIRAL 11/07/2012 WENDI BLACK MD N 008.8 GASTROENTERITIS, VIRAL 11/07/2012 DIMPLE PEÑALOZA DO 008.8 GASTROENTERITIS, VIRAL 11/07/2012 MANAV GIBSON APRN 008.8 GASTROENTERITIS, VIRAL 11/07/2012 DIMPLE PEÑALOZA DO 008.8 GASTROENTERITIS, VIRAL 11/07/2012 WENDI BLACK MD N 008.8 GASTROENTERITIS, VIRAL 11/07/2012 WENDI BLACK MD 008.8 GASTROENTERITIS, VIRAL 11/07/2012 TIN HEREDIA PSYD 008.8 GASTROENTERITIS, VIRAL 11/07/2012 WENDI BLACK MD N 008.8 GASTROENTERITIS, VIRAL 11/07/2012 WENDI BLACK MD N 008.8 GASTROENTERITIS, VIRAL 11/07/2012 CARLOS AHUJA M 008.8 GASTROENTERITIS, VIRAL 11/07/2012 CHRISTEL SALAZAR, CARLOS M 008.8 GASTROENTERITIS, VIRAL 11/07/2012 CHRISTEL MOLD FILLER AND DRAINER, CARLOS M 008.8 GASTROENTERITIS, VIRAL 11/07/2012 CHRISTEL SALAZAR, CARLOS M 008.8 GASTROENTERITIS, VIRAL 03/08/2013 TEOFILO FELICIANO MD 728.87 MUSCLE WEAKNESS (GENERALIZED) 03/08/2013 DIMPLE PEÑALOZA DO 728.87 MUSCLE WEAKNESS (GENERALIZED) 03/08/2013 MANAV GIBSON APRN 728.87 MUSCLE WEAKNESS (GENERALIZED) 03/08/2013 MAU NAVAROR APRN 728.87 MUSCLE WEAKNESS (GENERALIZED) 03/08/2013 MANAV [...] MUSCLE WEAKNESS (GENERALIZED) 03/08/2013 TIN HEREDIA PSYD L 728.87 MUSCLE WEAKNESS (GENERALIZED) 03/08/2013 WENDI BLACK MD N 728.87 MUSCLE WEAKNESS (GENERALIZED) 03/08/2013 WENDI BLACK MD N 728.87 MUSCLE WEAKNESS (GENERALIZED) 03/08/2013 CHRISTEL SALAZAR, CARLOS M 728.87 MUSCLE WEAKNESS (GENERALIZED) 03/08/2013 CARLOS AHUJA M 728.87 MUSCLE WEAKNESS (GENERALIZED) 03/08/2013 CHRISTEL MOLD FILLER AND DRAINER, CARLOS M 728.87 MUSCLE WEAKNESS (GENERALIZED) 03/08/2013 CHRISTEL SALAZAR, CARLOS M 728.87 MUSCLE WEAKNESS (GENERALIZED) 04/26/2013 PEÑALOZA DO, DIMPLE K 599.0 URINARY TRACT INFECTION 04/26/2013 PAIGE HECK MANAV LONG 599.0 URINARY TRACT INFECTION 04/26/2013 MILADY NAVARRO APRNIDI A 599.0 URINARY TRACT INFECTION 04/26/2013 PAIGE HECK MANAV LONG 599.0 URINARY TRACT INFECTION 04/26/2013 WENDI BLACK MD N 599.0 URINARY TRACT INFECTION 04/26/2013 WENDI BLACK MD N 599.0 URINARY TRACT INFECTION 04/26/2013 PEÑALOZA DO, DIMPLE K 599.0 URINARY TRACT INFECTION 04/26/2013 PAIGE HECK MANAV LONG 599.0 URINARY TRACT INFECTION 04/26/2013 PEÑALOZA DO, DIMPLE K 599.0 URINARY TRACT INFECTION 04/26/2013 WENDI BLACK MD N 599.0 URINARY TRACT INFECTION 04/26/2013 WENDI BLACK MD N 599.0 URINARY TRACT INFECTION 04/26/2013 TIN HEREDIA PSYD L 599.0 URINARY TRACT INFECTION 04/26/2013 WENDI BLACK MD N 599.0 URINARY TRACT INFECTION 04/26/2013 WENDI BLACK MD N 599.0 URINARY TRACT INFECTION 04/26/2013 CHRISTEL SALAZAR, CARLOS M 599.0 URINARY TRACT INFECTION 04/26/2013 CHRISTEL SALAZAR, CARLOS M 599.0 URINARY TRACT INFECTION 04/26/2013 CHRISTEL SALAZAR, CARLOS M 599.0 URINARY TRACT INFECTION 04/26/2013 CARLOS AHUJA M 599.0 URINARY TRACT INFECTION 09/27/2013 RAMON APRN, MAU A 388.70 OTALGIA UNSPECIFIED 09/27/2013 RAMONMAU Dupont APRN A 786.2 COUGH 09/27/2013 PAIGE HECK MANAV ALVES 388.70 OTALGIA UNSPECIFIED 09/27/2013 PAIGE HECK MANAV ALVES 786.2 COUGH 09/27/2013 WENDI BLACK MD 388.70 OTALGIA UNSPECIFIED 09/27/2013 WENDI BLACK MD [...] HECK MAU A V74.5 STD SCREEN 10/02/2013 MILADY NAVARRO APRNIDI A V76.10 BREAST CANCER SCREENING 10/02/2013 MANAV [...] BLACK MD V76.10 BREAST CANCER SCREENING 10/02/2013 JH YEPEZ DIMPLE K V65.42 COUNSELING - SMOKING CESSATION 10/02/2013 JH YEPEZ DIMPLE K V74.5 STD SCREEN 10/02/2013 PEÑALOZA DO DIMPLE K V76.10 BREAST CANCER SCREENING 10/02/2013 MANAV GIBSON APRN V65.42 COUNSELING - SMOKING CESSATION 10/02/2013 MANAV GIBSON APRN V74.5 STD SCREEN 10/02/2013 MANAV GIBSON APRN V76.10 BREAST CANCER SCREENING 10/02/2013 PEÑALOZA DO DIMPLE K V65.42 COUNSELING - SMOKING CESSATION 10/02/2013 JH YEPEZ DIMPLE K V74.5 STD SCREEN 10/02/2013 DIMPLE PEÑALOZA DO K V76.10 BREAST CANCER SCREENING 10/02/2013 WENDI [...] ALBERTO AHUJAISTIN M V74.5 STD SCREEN 10/02/2013 ALBERTO AHUJAISTIN M V76.10 BREAST CANCER SCREENING 10/02/2013 CARLOS AHUJA M V65.42 COUNSELING - SMOKING CESSATION 10/02/2013 CHRISTEL SALAZAR CARLOS M V74.5 STD SCREEN 10/02/2013 CHRISTEL SALAZAR CARLOS M V76.10 BREAST CANCER SCREENING 10/02/2013 CARLOS AHUJA M V65.42 COUNSELING - SMOKING CESSATION 10/02/2013 CARLOS AHUJA M V74.5 STD SCREEN 10/02/2013 CHRISTEL SALAZAR CARLOS M V76.10 BREAST CANCER SCREENING 10/02/2013 CARLOS AHUJA V65.42 COUNSELING - SMOKING CESSATION 10/02/2013 CARLOS AHUJA V74.5 STD SCREEN 10/02/2013 CARLOS AHUJA V76.10 BREAST CANCER SCREENING 01/01/2014 WENDI BLACK MD 307.42 PERSISTENT DISORDER OF INITIATING OR MAINTAINING SLEEP 01/01/2014 WENDI BLACK MD 599.70 HEMATURIA UNSPECIFIED 01/01/2014 WENDI BLACK MD 724.2 LUMBAGO 01/01/2014 WENDI BLACK MD N 307.42 PERSISTENT DISORDER OF INITIATING OR MAINTAINING SLEEP 01/01/2014 WENDI BLACK MD 599.70 HEMATURIA UNSPECIFIED 01/01/2014 WENDI BLACK MD 724.2 LUMBAGO 01/01/2014 DIMPLE PEÑALOZA DO 307.42 PERSISTENT DISORDER OF INITIATING OR MAINTAINING SLEEP 01/01/2014 DIMPLE PEÑALOZA DO 599.70 HEMATURIA UNSPECIFIED 01/01/2014 DIMPLE PEÑALOZA DO 724.2 LUMBAGO 01/01/2014 MANAV GIBSON APRN 307.42 PERSISTENT DISORDER OF INITIATING OR MAINTAINING SLEEP 01/01/2014 MANAV GIBSON APRN 599.70 HEMATURIA UNSPECIFIED 01/01/2014 MANAV GIBSON APRN 724.2 LUMBAGO 01/01/2014 DIMPLE PEÑALOZA DO 307.42 PERSISTENT DISORDER OF INITIATING OR MAINTAINING SLEEP 01/01/2014 DIMPLE PEÑALOZA DO 599.70 HEMATURIA UNSPECIFIED 01/01/2014 DIMPLE PEÑALOZA DO 724.2 LUMBAGO 01/01/2014 WENDI BLACK MD N 307.42 PERSISTENT DISORDER OF INITIATING OR MAINTAINING SLEEP 01/01/2014 WENDI BLACK MD 599.70 HEMATURIA UNSPECIFIED 01/01/2014 WENDI BLACK MD N 724.2 LUMBAGO 01/01/2014 WENDI BLACK MD N 307.42 PERSISTENT DISORDER OF INITIATING OR MAINTAINING SLEEP 01/01/2014 WENDI BLACK MD 599.70 HEMATURIA UNSPECIFIED 01/01/2014 WENDI BLACK MD N 724.2 LUMBAGO 01/01/2014 TIN HEREDIA PSYD L 307.42 PERSISTENT DISORDER OF INITIATING OR MAINTAINING SLEEP 01/01/2014 TIN HEREDIA PSYD L 599.70 HEMATURIA UNSPECIFIED 01/01/2014 TIN HEREDIA PSYD 724.2 LUMBAGO 01/01/2014 WENDI BLACK MD 307.42 PERSISTENT DISORDER OF INITIATING OR MAINTAINING SLEEP 01/01/2014 WENDI BLACK MD N 599.70 HEMATURIA UNSPECIFIED 01/01/2014 WENDI BLACK MD N 724.2 LUMBAGO 01/01/2014 WENDI BLACK MD N 307.42 PERSISTENT DISORDER OF INITIATING OR MAINTAINING SLEEP 01/01/2014 WENDI BLACK MD N 599.70 HEMATURIA UNSPECIFIED 01/01/2014 WENDI BLACK MD 724.2 LUMBAGO 01/01/2014 CARLOS AHUJA 307.42 PERSISTENT DISORDER OF INITIATING OR MAINTAINING [...] CARLOS AHUJA M 724.2 LUMBAGO 02/17/2014 PEÑALOZA DO DIMPLE K 466.0 BRONCHITIS, ACUTE 02/17/2014 MANAV GIBSON APRN 466.0 BRONCHITIS, ACUTE 02/17/2014 PEÑALOZA AQUILES YEPEZA K 466.0 BRONCHITIS, ACUTE 02/17/2014 WENDI BLACK MD 466.0 BRONCHITIS, ACUTE 02/17/2014 WENDI BLACK MD N 466.0 BRONCHITIS, ACUTE 02/17/2014 TIN HEREDIA PSYD L 466.0 BRONCHITIS, ACUTE 02/17/2014 WENDI BLACK MD N 466.0 BRONCHITIS, ACUTE 02/17/2014 WENDI BLACK MD N 466.0 BRONCHITIS, ACUTE 02/17/2014 CHRISTEL MOLD FILLER AND DRAINER, CARLOS M 466.0 BRONCHITIS, ACUTE 02/17/2014 CHRISTEL MOLD FILLER AND DRAINER, CARLOS M 466.0 BRONCHITIS, ACUTE 02/17/2014 CHRISTEL MOLD FILLER AND DRAINER, CARLOS M 466.0 BRONCHITIS, ACUTE 02/17/2014 CHRISTEL MOLD FILLER AND DRAINER, CARLOS M 466.0 BRONCHITIS, ACUTE 05/21/2014 WENDI BLACK MD N 388.70 OTALGIA UNSPECIFIED 05/21/2014 WENDI BLACK MD N 388.70 OTALGIA UNSPECIFIED 05/21/2014 TIN HEREDIA PSYD L 388.70 OTALGIA UNSPECIFIED 05/21/2014 WENDI BLACK MD N 388.70 OTALGIA UNSPECIFIED 05/21/2014 WENDI BLACK MD N 388.70 OTALGIA UNSPECIFIED 05/21/2014 CHRISTEL MOLD FILLER AND DRAINER, CARLOS M 388.70 OTALGIA UNSPECIFIED 05/21/2014 CHRISTEL MOLD FILLER AND DRAINER, CARLOS M 388.70 OTALGIA UNSPECIFIED 05/21/2014 CHRISTEL MOLD FILLER AND DRAINER, CARLOS M 388.70 OTALGIA UNSPECIFIED 05/21/2014 CHRISTEL MOLD FILLER AND DRAINER, CARLOS M 388.70 OTALGIA UNSPECIFIED 06/26/2014 WENDI BLACK [...] M 578.1 BLOOD IN STOOL 12/02/2014 BRAYDEN RICE [...] 786.50 12/02/2014 Ot V88.01 12/02/2014 SOCORRO KEATING APPRAISER OIL AND WATER Ot 305.1 12/02/2014 SOCORRO KEATING APPRAISER OIL AND WATER Ot 525.9 12/02/2014 SOCORRO KEATING APPRAISER OIL AND WATER Ot 526.5 12/02/2014 BRAYDEN DILLONC, DIANE FACP CCDS Ot 272.4 12/02/2014 BRAYDEN RICE FACC, ALI FACP CCDS Ot 278.00 12/02/2014 BRAYDEN IRCE FACC, ALI FACP CCDS Ot 305.1 12/02/2014 [...] FACC, ALI FACP CCDS Ot 786.50 12/28/2014 BRYADEN DILLONC, ALI FACP CCDS Ot V88.01 12/28/2014 [...] ALI FACP CCDS Ot 786.50 01/02/2015 BRAYDEN RICE FACC, ALI FACP CCDS Ot V88.01 01/02/2015 Ot [...] 06/02/2015 Ot 786.50 06/02/2015 Ot V88.01 06/02/2015 KINGA MD, MARCELLUS A Ot K52.9 NONINFECTIVE GASTROENTERITIS AND COLITIS 06/02/2015 BRAYDEN RICE FAC, ALI FACP CCDS Ot 272.4 06/02/2015 BRAYDEN RICE FAC, [facility] FACP CCDS Ot 278.00 06/02/2015 BRAYDEN RICE FAC, ALI FACP CCDS Ot 305.1 06/02/2015 BRAYDEN RICE FAC, ALI FACP CCDS Ot 401.9 06/02/2015 BRAYDEN RICE [facility] FACP CCDS Ot 786.50 06/02/2015 BRAYDEN RICE [facility], ALI FACP CCDS Ot V88.01 06/02/2015 Ot [...] MD Ot X58.XXXA EXPOSURE TO OTHER SPECIFIED FACTORS, INI 01/27/2016 BOBY DANIELLE MD Ot Y99.8 OTHER EXTERNAL CAUSE STATUS 01/28/2016 BOBY DANIELLE MD Ot F17.210 NICOTINE DEPENDENCE, CIGARETTES, UNCOMPL 01/28/2016 BOBY DANIELLE MD Ot R07.9 CHEST PAIN, UNSPECIFIED 01/28/2016 BOBY DANIELLE MD Ot S92.322A DISP FX OF SECOND METATARSAL BONE, LEFT 01/28/2016 BOBY DANIELLE MD Ot X58.XXXA EXPOSURE TO OTHER SPECIFIED FACTORS, INI 01/28/2016 BOBY DANIELLE MD Ot Y99.8 OTHER EXTERNAL CAUSE STATUS 01/28/2016 BOYB DANIELLE MD Ot F17.210 NICOTINE DEPENDENCE, CIGARETTES, UNCOMPL 01/28/2016 BOBY DANIELLE MD Ot R07.9 CHEST PAIN, UNSPECIFIED 01/28/2016 BOBY DANIELLE MD Ot S92.322A DISP FX OF SECOND METATARSAL BONE, LEFT 01/28/2016 SHASHI RICE, BOBY Roy Ot X58.XXXA EXPOSURE TO OTHER SPECIFIED FACTORS, INI 01/28/2016 SHASHI RICE, BOBY Roy Ot Y99.8 OTHER EXTERNAL CAUSE STATUS 03/01/2016 SOCORRO KEATING APRN Ot I10 ESSENTIAL (PRIMARY) HYPERTENSION 03/01/2016 SOCORRO KEATING APRN Ot K52.9 NONINFECTIVE GASTROENTERITIS AND COLITIS 03/01/2016 SOCORRO KEATING APRN Ot R11.2 NAUSEA WITH VOMITING, UNSPECIFIED 03/01/2016 SOCORRO KEATING APRN Ot Z79.899 OTHER BLADE BONER (CURRENT) DRUG THERAPY 03/02/2016 SOCORRO KEATING APRN Ot I10 ESSENTIAL (PRIMARY) HYPERTENSION 03/02/2016 SOCORRO KEATING APRN Ot K52.9 NONINFECTIVE GASTROENTERITIS AND COLITIS 03/02/2016 SOCORRO KEATING APRN Ot R11.2 NAUSEA WITH VOMITING, UNSPECIFIED 03/02/2016 SOCORRO KEATING APRN Ot Z79.899 OTHER BLADE BONER (CURRENT) DRUG THERAPY 03/02/2016 SOCORRO KEATING APRN Ot I10 ESSENTIAL (PRIMARY) HYPERTENSION 03/02/2016 SOCORRO KEATING APRN Ot K52.9 NONINFECTIVE GASTROENTERITIS AND COLITIS 03/02/2016 SOCORRO KEATING APRN Ot R11.2 NAUSEA WITH VOMITING, UNSPECIFIED 03/02/2016 SOCORRO KEATING APRN Ot Z79.899 OTHER BLADE BONER (CURRENT) DRUG THERAPY 03/05/2016 SOCORRO KEATING APRN Ot I10 ESSENTIAL (PRIMARY) HYPERTENSION 03/05/2016 SOCORRO KEATING APRN Ot K52.9 NONINFECTIVE GASTROENTERITIS AND COLITIS 03/05/2016 SOCORRO KEATING APPRAISER OIL AND WATER Ot R11.2 NAUSEA WITH VOMITING, UNSPECIFIED 03/05/2016 SOCORRO KEATING APRN Ot Z79.899 OTHER MCC (CURRENT) DRUG THERAPY 03/08/2016 SOCORRO KEATING APPRAISER OIL AND WATER Ot I10 ESSENTIAL (PRIMARY) HYPERTENSION 03/08/2016 SOCORRO KEATING APRN Ot K52.9 NONINFECTIVE GASTROENTERITIS AND COLITIS 03/08/2016 SOCORRO KEATING APPRAISER OIL AND WATER Ot R11.2 NAUSEA WITH VOMITING, UNSPECIFIED 03/08/2016 SOCORRO KEATING APRN Ot Z79.899 OTHER BLADE BONER (CURRENT) DRUG THERAPY 03/14/2016 SOCORRO KEATING APPRAISER OIL AND WATER Ot I10 ESSENTIAL (PRIMARY) HYPERTENSION 03/14/2016 SOCORRO KEATING APPRAISER OIL AND WATER Ot K52.9 NONINFECTIVE GASTROENTERITIS AND COLITIS 03/14/2016 SOCORRO KEATING APPRAISER OIL AND WATER Ot R11.2 NAUSEA WITH VOMITING, UNSPECIFIED 03/14/2016 SOCORRO KEATING APPRAISER OIL AND WATER Ot Z79.899 OTHER BLADE BONER (CURRENT) DRUG THERAPY 06/30/2016 ALVARO CABRERA MD Ot R05 COUGH 06/30/2016 DEBORAH RICE, ALVARO Gaviria Ot Z53.21 PROC/TRTMT NOT CRD OUT D/T [...] DO Ot I10 ESSENTIAL (PRIMARY) HYPERTENSION 08/17/2016 KINGSTON XIAO DOA K Ot S92.325D NONDISP FX OF 2ND [...] 08/17/2016 GUY XIAO DO Ot Z79.899 OTHER BLADE BONER (CURRENT) DRUG THERAPY 09/11/2016 [place] RICE, ANKIT Tristan Ot F17.210 NICOTINE DEPENDENCE, CIGARETTES, UNCOMPL 09/11/2016 [place] RICE, ANKIT Tristan Ot I10 ESSENTIAL (PRIMARY) HYPERTENSION 09/11/2016 [place] RICE, ANKIT Tristan Ot N17.9 ACUTE KIDNEY FAILURE, UNSPECIFIED 09/11/2016 [place] RICE ANKIT Tristan Ot R39.15 URGENCY OF URINATION 09/17/2016 [place] RICE ANKIT Tristan Ot F17.210 NICOTINE DEPENDENCE, CIGARETTES, UNCOMPL 09/17/2016 [place] RICE ANKIT Azalea Ot I10 ESSENTIAL (PRIMARY) HYPERTENSION 09/17/2016 ANKIT BE MD Ot N17.9 ACUTE KIDNEY FAILURE, UNSPECIFIED 09/17/2016 [place] RICE, ANKIT Tristan Ot R39.15 URGENCY OF URINATION 09/25/2016 CRYSTAL SINGLETON MD J Ot F17.210 NICOTINE DEPENDENCE, CIGARETTES, UNCOMPL 09/25/2016 CRYSTAL SINGLETON MD Ot I10 ESSENTIAL (PRIMARY) HYPERTENSION 09/25/2016 CRYSTAL SINGLETON MD Ot M54.5 LOW BACK PAIN 09/25/2016 CRYSTAL SINGLETON MD Ot R11.0 NAUSEA 09/25/2016 CRYSTAL SINGLETON MD J Ot R53.83 OTHER FATIGUE 09/25/2016 CRYSTAL SINGLETON MD J Ot Z79.899 OTHER MCC (CURRENT) DRUG THERAPY 09/27/2016 CRYSTAL SINGLETON MD J Ot F17.210 NICOTINE DEPENDENCE, CIGARETTES, UNCOMPL 09/27/2016 CRYSTAL SINGLETON MD Ot I10 ESSENTIAL (PRIMARY) HYPERTENSION 09/27/2016 CRYSTAL SINGLETON MD Ot M54.5 LOW BACK PAIN 09/27/2016 CRYSTAL SINGLETON MD Ot R11.0 NAUSEA 09/27/2016 CRYSTAL SINGLETON MD J Ot R53.83 OTHER FATIGUE 09/27/2016 CRYSTAL SINGLETON MD J Ot Z79.899 OTHER BLADE BONER (CURRENT) DRUG THERAPY 10/01/2016 CRYSTAL SINGLETON MD J Ot F17.210 NICOTINE DEPENDENCE, CIGARETTES, UNCOMPL 10/01/2016 CRYSTAL SINGLETON MD J Ot I10 ESSENTIAL (PRIMARY) HYPERTENSION 10/01/2016 CRYSTAL SINGLETON MD J Ot M54.5 LOW BACK PAIN 10/01/2016 CRYSTAL SINGLETON MD J Ot R11.0 NAUSEA 10/01/2016 CRYSTAL SINGLETON MD J Ot R53.83 OTHER FATIGUE 10/01/2016 CRYSTAL SINGLETON MD J Ot Z79.899 OTHER BLADE BONER (CURRENT) DRUG THERAPY 12/06/2016 DAMEON DO, GUY [...] ABSENCE OF OTHER SPECIFIED PART 12/06/2016 DAMEON DO GUY K Ot Z90.710 ACQUIRED ABSENCE OF [...] Ot J45.909 UNSPECIFIED ASTHMA, UNCOMPLICATED 12/09/2016 DAMEON DO GUY K Ot K52.9 NONINFECTIVE GASTROENTERITIS AND [...] CorriganP Ot E78.00 PURE HYPERCHOLESTEROLEMIA, UNSPECIFIED 12/28/2016 WINSTON, JASMINA [employer] INSURANCE CLAIMS SPECIALIST Ot F32.9 MAJOR DEPRESSIVE DISORDER, SINGLE EPISOD 12/28/2016 WINSTON JASMINA [employer] INSURANCE CLAIMS SPECIALIST Ot F41.9 ANXIETY DISORDER, UNSPECIFIED 12/28/2016 WINSTON JASMINA [employer] INSURANCE CLAIMS SPECIALIST Ot I10 ESSENTIAL (PRIMARY) HYPERTENSION 12/28/2016 WINSTON JASMINA MED[employer] INSURANCE CLAIMS SPECIALIST Ot J45.909 UNSPECIFIED ASTHMA, UNCOMPLICATED 12/28/2016 WINSTON JASMINA MEDICAL INSURANCE CLAIMS SPECIALIST Ot M54.16 RADICULOPATHY, LUMBAR REGION 12/28/2016 WINSTON JASMINA [employer] INSURANCE CLAIMS SPECIALIST Ot M54.5 LOW BACK PAIN 12/28/2016 JASMINA MONTERO MEDICAL INSURANCE CLAIMS SPECIALIST Ot Z87.81 PERSONAL HISTORY OF (HEALED) TRAUMATIC F 12/28/2016 WINSTON, JASMINA MEDICAL INSURANCE CLAIMS SPECIALIST Ot Z90.710 ACQUIRED ABSENCE OF BOTH CERVIX AND UTER 12/28/2016 WINSTON, JASMINA MEDICAL INSURANCE CLAIMS SPECIALIST Ot Z98.890 OTHER SPECIFIED POSTPROCEDURAL STATES 12/31/2016 SOCORRO KEATING APRN Ot E78.00 PURE HYPERCHOLESTEROLEMIA, UNSPECIFIED 12/31/2016 SOCORRO KEATING APPRAISER OIL AND WATER Ot F17.210 NICOTINE DEPENDENCE, CIGARETTES, UNCOMPL 12/31/2016 SOCORRO KEATING APPRAISER OIL AND WATER Ot I10 ESSENTIAL (PRIMARY) HYPERTENSION 12/31/2016 SOCORRO KEATING APRN Ot J45.909 UNSPECIFIED ASTHMA, UNCOMPLICATED 12/31/2016 SOCORRO KEATING APRN Ot M54.5 LOW BACK PAIN 12/31/2016 SOCORRO KEATING APRN Ot Z87.81 PERSONAL HISTORY OF (HEALED) TRAUMATIC F 12/31/2016 SOCORRO KEATING APRN Ot Z90.710 ACQUIRED ABSENCE OF BOTH CERVIX AND UTER 12/31/2016 SOCORRO KEATING APRN Ot Z98.890 OTHER SPECIFIED POSTPROCEDURAL STATES 01/03/2017 JASMINA MONTERO MEDICAL INSURANCE CLAIMS SPECIALIST Ot E78.00 PURE HYPERCHOLESTEROLEMIA, UNSPECIFIED 01/03/2017 WINSTON JASMINA MEDICAL INSURANCE CLAIMS SPECIALIST Ot F32.9 MAJOR DEPRESSIVE DISORDER, SINGLE EPISOD 01/03/2017 WINSTON, JASMINA MEDICAL INSURANCE CLAIMS SPECIALIST Ot F41.9 ANXIETY DISORDER, UNSPECIFIED 01/03/2017 WINSTON, JASMINA MEDICAL INSURANCE CLAIMS SPECIALIST Ot I10 ESSENTIAL (PRIMARY) HYPERTENSION 01/03/2017 JASMINA MONTEROP Ot J45.909 UNSPECIFIED ASTHMA, UNCOMPLICATED 01/03/2017 WINSTON, JASMINA MEDICAL INSURANCE CLAIMS SPECIALIST Ot M54.16 RADICULOPATHY, LUMBAR REGION 01/03/2017 WINSTON, JASMINA MEDICAL INSURANCE CLAIMS SPECIALIST Ot M54.5 LOW BACK PAIN 01/03/2017 WINSTON JASMINA MEDICAL INSURANCE CLAIMS SPECIALIST Ot Z87.81 PERSONAL HISTORY OF (HEALED) TRAUMATIC F 01/03/2017 WINSTON JASMIAN MEDICAL INSURANCE CLAIMS SPECIALIST Ot Z90.710 ACQUIRED ABSENCE OF BOTH CERVIX AND UTER 01/03/2017 WINSTON JASMINA MEDICAL INSURANCE CLAIMS SPECIALIST Ot Z98.890 OTHER SPECIFIED POSTPROCEDURAL STATES 01/03/2017 SOCORRO KEATING APRN Ot E78.00 PURE HYPERCHOLESTEROLEMIA, UNSPECIFIED 01/03/2017 SOCORRO KEATING APRN Ot F17.210 NICOTINE DEPENDENCE, CIGARETTES, UNCOMPL 01/03/2017 SOCORRO KEATING APRN Ot I10 ESSENTIAL (PRIMARY) HYPERTENSION 01/03/2017 SOCORRO KEATING APRN Ot J45.909 UNSPECIFIED ASTHMA, UNCOMPLICATED 01/03/2017 SOCORRO KEATING APRN Ot M54.5 LOW BACK PAIN 01/03/2017 SOCORRO KEATING APRN Ot Z87.81 PERSONAL HISTORY OF (HEALED) TRAUMATIC F 01/03/2017 SOCORRO KEATING APRN Ot Z90.710 ACQUIRED ABSENCE OF BOTH CERVIX AND UTER 01/03/2017 SOCORRO KEATING APRN Ot Z98.890 OTHER SPECIFIED POSTPROCEDURAL STATES 01/13/2017 [place] RICE, ANKIT Tristan Ot F17.210 NICOTINE DEPENDENCE, CIGARETTES, UNCOMPL 01/13/2017 [place] RICE, ANKIT Tristan Ot I10 ESSENTIAL (PRIMARY) HYPERTENSION 01/13/2017 [place] RICE, ANKIT Tristan Ot N17.9 ACUTE KIDNEY FAILURE, UNSPECIFIED 01/13/2017 [place] RICE, ANKIT Tristan Ot R39.15 URGENCY OF URINATION 01/15/2017 DAMEON DO GUY K Ot E78.00 PURE HYPERCHOLESTEROLEMIA, UNSPECIFIED 01/15/2017 DAMEON DO GUY K Ot F17.210 NICOTINE DEPENDENCE, CIGARETTES, UNCOMPL 01/15/2017 DAMEON DO GUY K Ot F32.9 MAJOR DEPRESSIVE DISORDER, SINGLE EPISOD 01/15/2017 DAMEON DO GUY K Ot F41.9 ANXIETY DISORDER, UNSPECIFIED 01/15/2017 DAMEON DO GUY K Ot I10 ESSENTIAL (PRIMARY) HYPERTENSION 01/15/2017 DAMEON DO GUY K Ot M54.41 LUMBAGO WITH SCIATICA, RIGHT SIDE 01/15/2017 DAMEON DO GUY K Ot M54.42 LUMBAGO WITH SCIATICA, LEFT SIDE 01/15/2017 DAMEON DO GUY K Ot R20.0 ANESTHESIA OF SKIN 01/15/2017 DAMEON DO GUY K Ot Z87.81 PERSONAL HISTORY OF (HEALED) TRAUMATIC F 01/15/2017 DAMEON DO GUY K Ot Z90.710 ACQUIRED ABSENCE OF BOTH CERVIX AND UTER 01/15/2017 [place]FIA RICE, WENDI Dupont Ot M12.88 OTH SPECIFIC ARTHROPATHIES, NEC, OTH SIT 02/06/2017 WENDI BLACK MD Ot M12.88 OTH SPECIFIC ARTHROPATHIES, NEC, OTH SIT 02/07/2017 GUY XIAO DO K Ot F17.210 NICOTINE DEPENDENCE, CIGARETTES, UNCOMPL 02/07/2017 DAMEON , GUY K Ot I10 ESSENTIAL (PRIMARY) HYPERTENSION 02/07/2017 DAMEON , GUY K Ot S92.325D NONDISP FX OF 2ND METATARSAL BONE, L FT, 02/07/2017 DAMEON , GUY K Ot S92.335A NONDISP FX OF THIRD METATARSAL BONE, LEF 02/07/2017 DAMEON , GUY K Ot S99.922A UNSPECIFIED INJURY OF LEFT FOOT, INITIAL 02/07/2017 DAMEON YEPEZ GUY K Ot X50.0XXA OVEREXERTION FROM STRENUOUS MOVEMENT OR 02/07/2017 DAMEON , GUY K Ot Y99.8 OTHER EXTERNAL CAUSE STATUS 02/07/2017 DAMEON YEPEZ GUY K Ot Z79.899 OTHER BLADE BONER (CURRENT) DRUG THERAPY 02/07/2017 UZMA IRVING Ot E78.00 PURE HYPERCHOLESTEROLEMIA, UNSPECIFIED 02/07/2017 UZMA IRVING Ot F17.210 NICOTINE DEPENDENCE, CIGARETTES, UNCOMPL 02/07/2017 UZMA IRVING Ot F32.9 MAJOR DEPRESSIVE DISORDER, SINGLE EPISOD 02/07/2017 UZMA IRVING Ot F41.9 ANXIETY DISORDER, UNSPECIFIED 02/07/2017 UZMA IRVING Ot I10 ESSENTIAL (PRIMARY) HYPERTENSION 02/07/2017 UZMA IRVING Ot J45.909 UNSPECIFIED ASTHMA, UNCOMPLICATED 02/07/2017 UZMA IRVING Ot L72.3 SEBACEOUS CYST 02/07/2017 UZMA IRVING Ot M54.41 LUMBAGO WITH SCIATICA, RIGHT SIDE 02/07/2017 UZMA IRVING Ot M54.5 LOW BACK PAIN 02/07/2017 UZMA IRVING Ot Z90.49 ACQUIRED ABSENCE OF OTHER SPECIFIED PART 02/07/2017 UZMA IRVING Ot Z90.710 ACQUIRED ABSENCE OF BOTH CERVIX AND UTER 02/07/2017 WENDI BLACK MD Ot M12.88 OTH SPECIFIC ARTHROPATHIES, NEC, OTH SIT 02/11/2017 WENDI BLACK MD Ot M54.9 DORSALGIA, UNSPECIFIED 03/01/2017 WENDI BLACK MD Ot M54.9 DORSALGIA, UNSPECIFIED 04/02/2017 WENDI BLACK MD Ot M12.88 OTH SPECIFIC ARTHROPATHIES, NEC, OTH SIT 04/02/2017 BOBY DANIELLE MD Ot E78.00 PURE HYPERCHOLESTEROLEMIA, UNSPECIFIED 04/02/2017 BOBY DANIELLE MD Ot F32.9 MAJOR DEPRESSIVE DISORDER, SINGLE EPISOD 04/02/2017 BOBY DANIELLE MD, Ot F41.9 ANXIETY DISORDER, UNSPECIFIED 04/02/2017 BOBY DANIELLE MD Ot I10 ESSENTIAL (PRIMARY) HYPERTENSION 04/02/2017 BOBY DANIELLE MD Ot J45.909 UNSPECIFIED ASTHMA, UNCOMPLICATED 04/02/2017 BOBY DANIELLE MD Ot M48.061 SPINAL STENOSIS, LUMBAR REGION WITHOUT N 04/02/2017 BOBY DANIELLE MD Ot M54.16 RADICULOPATHY, LUMBAR REGION 04/02/2017 BOBY DANIELLE MD Ot M54.5 LOW BACK PAIN 04/02/2017 BOBY DANIELLE MD Ot Z87.81 PERSONAL HISTORY OF (HEALED) TRAUMATIC F 04/02/2017 BOBY DANIELLE MD Ot Z90.710 ACQUIRED ABSENCE OF BOTH CERVIX AND UTER 04/12/2017 CRYSTAL SINGLETON MD Ot F17.210 NICOTINE DEPENDENCE, CIGARETTES, UNCOMPL 04/12/2017 CRYSTAL SINGLETON MD Ot F31.9 BIPOLAR DISORDER, UNSPECIFIED 04/12/2017 CRYSTAL SINGLETON MD Ot F41.9 ANXIETY DISORDER, UNSPECIFIED 04/12/2017 CRYSTAL SINGLETON MD Ot J45.909 UNSPECIFIED ASTHMA, UNCOMPLICATED 04/12/2017 CRYSTAL SINGLETON MD Ot R10.31 RIGHT LOWER QUADRANT PAIN 04/12/2017 CRYSTAL SINGLETON MD Ot Z90.710 ACQUIRED ABSENCE OF BOTH CERVIX AND UTER 10/02/2017 GUY XIAO DO Ot E78.00 PURE HYPERCHOLESTEROLEMIA, UNSPECIFIED 10/02/2017 GUY XIAO DO Ot F17.210 NICOTINE DEPENDENCE, CIGARETTES, UNCOMPL 10/02/2017 GUY XIOA DO Ot F32.9 MAJOR DEPRESSIVE DISORDER, SINGLE EPISOD 10/02/2017 DAMEON GUY YEPEZ Ot F41.9 ANXIETY DISORDER, UNSPECIFIED 10/02/2017 DAMEON GUY YEPEZ Ot G43.909 MIGRAINE, UNSP, NOT INTRACTABLE, WITHOUT 10/02/2017 GUY XIAO DO Ot I10 ESSENTIAL (PRIMARY) HYPERTENSION 10/02/2017 DAMEON GUY YEPEZ Ot J45.909 UNSPECIFIED ASTHMA, UNCOMPLICATED 10/02/2017 DAMEON GUY YEPEZ Ot R40.2142 COMA SCALE, EYES OPEN, SPONTANEOUS, EMR 10/02/2017 GUY XIAO DO Ot R40.2252 COMA SCALE, BEST VERBAL RESPONSE, ORIENT 10/02/2017 GUY XIAO DO Ot R40.2362 COMA SCALE, BEST MOTOR RESPONSE, OBEYS C 10/02/2017 GUY XIAO DO Ot R51 HEADACHE 10/02/2017 DAMEON GUY YEPEZ Ot S00.93XA CONTUSION OF UNSPECIFIED PART OF HEAD, I 10/02/2017 GUY XIAO DO Ot W20.8XXA OTH CAUSE OF STRIKE BY THROWN, PROJECTED 10/02/2017 GUY XIAO DO Ot Y92.[address] OF OCCURRENCE OF THE EX 10/02/2017 GUY XIAO DO Ot Z87.440 PERSONAL HISTORY OF URINARY (TRACT) INFE 10/02/2017 GUY XIAO DO Ot Z87.81 PERSONAL HISTORY OF (HEALED) TRAUMATIC F 10/02/2017 GUY XIAO DO Ot Z88.1 ALLERGY STATUS TO OTHER ANTIBIOTIC AGENT 10/02/2017 GUY XIAO DO Ot Z88.2 ALLERGY STATUS TO SULFONAMIDES STATUS 10/02/2017 GUY XIAO DO Ot Z88.5 ALLERGY STATUS TO NARCOTIC AGENT STATUS 10/02/2017 GUY XIAO DO Ot Z88.6 ALLERGY STATUS TO ANALGESIC AGENT STATUS 10/02/2017 GUY IXAO DO Ot Z88.8 ALLERGY STATUS TO OTH DRUG/MEDS/BIOL SUB 10/02/2017 KING[place]ON XIAO DOA K Ot Z90.49 ACQUIRED ABSENCE OF OTHER SPECIFIED PART 10/02/2017 DAMEON GUY YEPEZ Ot Z90.710 ACQUIRED ABSENCE OF BOTH CERVIX AND UTER 10/02/2017 DAMEON GUY YEPEZ Ot Z98.890 OTHER SPECIFIED POSTPROCEDURAL STATES 10/03/2017 DAMEON GUY YEPEZ Ot E78.00 PURE HYPERCHOLESTEROLEMIA, UNSPECIFIED 10/03/2017 DAEMON GUY YEPEZ Ot F17.210 NICOTINE DEPENDENCE, CIGARETTES, UNCOMPL 10/03/2017 DAMEON GUY YEPEZ Ot F32.9 MAJOR DEPRESSIVE DISORDER, SINGLE EPISOD 10/03/2017 DAMEON GUY YEPEZ Ot F41.9 ANXIETY DISORDER, UNSPECIFIED 10/03/2017 DAMEON GUY YEPEZ Ot G43.909 MIGRAINE, UNSP, NOT INTRACTABLE, WITHOUT 10/03/2017 DAMEON GUY YEPEZ Ot I10 ESSENTIAL (PRIMARY) HYPERTENSION 10/03/2017 DAMEON GUY YEPEZ Ot J45.909 UNSPECIFIED ASTHMA, UNCOMPLICATED 10/03/2017 DAMEON GUY YEPEZ Ot R40.2142 COMA SCALE, EYES OPEN, SPONTANEOUS, EMR 10/03/2017 GUY XIAO DO Ot R40.2252 COMA SCALE, BEST VERBAL RESPONSE, ORIENT 10/03/2017 DAMEON GUY YEPEZ Ot R40.2362 COMA SCALE, BEST MOTOR RESPONSE, OBEYS C 10/03/2017 DAMEON GUY YEPEZ Ot R51 HEADACHE 10/03/2017 DAMEON GUY YEPEZ Ot S00.93XA CONTUSION OF UNSPECIFIED PART OF HEAD, I 10/03/2017 DAMEON GUY YEPEZ Ot W20.8XXA OTH CAUSE OF STRIKE BY THROWN, PROJECTED 10/03/2017 GUY XIAO DO Ot Y92.[address] OF OCCURRENCE OF THE EX 10/03/2017 GUY XIAO DO Ot Z87.440 PERSONAL HISTORY OF URINARY (TRACT) INFE 10/03/2017 GUY XIAO DO Ot Z87.81 PERSONAL HISTORY OF (HEALED) TRAUMATIC F 10/03/2017 GUY XIAO DO Ot Z88.1 ALLERGY STATUS TO OTHER ANTIBIOTIC AGENT 10/03/2017 DAMEON GUY YEPEZ Ot Z88.2 ALLERGY STATUS TO SULFONAMIDES STATUS 10/03/2017 GUY XIAO DO Ot Z88.5 ALLERGY STATUS TO NARCOTIC AGENT STATUS 10/03/2017 GUY XIAO DO Ot Z88.6 ALLERGY STATUS TO ANALGESIC AGENT STATUS 10/03/2017 GUY XIAO DO Ot Z88.8 ALLERGY STATUS TO OTH DRUG/MEDS/BIOL SUB 10/03/2017 GUY XIAO DO Ot Z90.49 ACQUIRED ABSENCE OF OTHER SPECIFIED PART 10/03/2017 GUY XIAO DO Ot Z90.710 ACQUIRED ABSENCE OF BOTH CERVIX AND UTER 10/03/2017 GUY XIAO DO Ot Z98.890 OTHER SPECIFIED POSTPROCEDURAL STATES Procedures Code [place] [address] UA W/ CULTURE IF INDICATED 06/15/2012 29802 PSYCH IND W/MED CK 20 08/10/2012 26699 ROUTINE VENIPUNCTURE 10/30/2012 92785 BNP 10/30/2012 38022 CMP 10/30/2012 4968712 GFR CALC (RESULT ONLY) 10/30/2012 34684 H PYLORI (IN-HOUSE) 11/07/2012 87309 ROUTINE VENIPUNCTURE 03/08/2013 03423 A1C (IN-HOUSE) 03/08/2013 24847 ESR/SED RATE 03/08/2013 54839 CBC 03/08/2013 55005 CRP 03/08/2013 09740 TSH 03/08/2013 59634 CPK 03/08/2013 73854 CMP 03/08/2013 2903181 GFR CALC (RESULT ONLY) 03/08/2013 ANAANA CALLUM ANALYZER (SCREEN) 03/09/2013 GRAVSPANL MYASTHENIA GRAVIS PANEL 03/18/2013 45448 UA W/ CULTURE IF INDICATED 04/26/2013 36045 CULTURE URINE 04/26/2013 81030 ROUTINE VENIPUNCTURE 10/02/2013 91831 TRICHOMONAS (IN-HOUSE) 10/02/2013 15323 SYPHILLIS-[facility] 10/02/2013 24787 HIV (STATE [facility]) 10/02/2013 66028 GC/CHLAM PROBE (STATE) 10/02/2013 06996 CULTURE UROGENITAL 10/03/2013 98099 UA W/ CULTURE IF INDICATED 01/01/2014 31562 UA LONG DIP 02/17/2014 85548 ROUTINE VENIPUNCTURE 05/21/2014 97879 SED/ESR RATE (IN HOUSE) 05/21/2014 91296 LIPID PANEL 05/21/2014 84168 PSYCH DIAGNOSTIC EVALUATION 06/25/2014 25808 ROUTINE VENIPUNCTURE 06/26/2014 03867 EKG, TRACING (IN-HOUSE) 06/26/2014 03294 CMP 06/26/2014 03263 MAGNESIUM 06/26/2014 37020 TSH 06/26/2014 CARDIOLOG LIN POWERS 06/26/2014 76056 CBC 06/26/2014 32498 PSYTX PT&/FAMILY 45 MINUTES 07/28/2014 Results Test Result Range Complete blood count (CBC) with automated white blood cell (WBC) differential - 01/27/16 14:53 Blood leukocytes automated count (number/volume) 6.5 10*3/uL 4.3-11.0 Blood erythrocytes automated count (number/volume) 3.94 10*6/uL 4.35-5.85 Venous blood hemoglobin measurement (mass/volume) 12.2 [...] Automated blood platelet mean volume measurement 9.1 [foz_us] 7.4-10.4 Automated blood neutrophils/100 leukocytes 62 % [...] Serum or plasma sodium measurement (moles/volume) 135 mmol/L 135-145 Serum or plasma potassium measurement (moles/volume) 3.6 mmol/L 3.6-5.0 Serum or plasma chloride measurement (moles/volume) 103 mmol/L 98-107 Carbon dioxide 23 mmol/L 21-32 Serum or plasma anion gap determination (moles/volume) 9 mmol/L 5-14 Serum or plasma urea nitrogen measurement (mass/volume) 8 mg/dL 7-18 Serum or plasma creatinine measurement (mass/volume) 0.64 mg/dL 0.60-1.30 Serum or plasma urea nitrogen/creatinine mass [...] or plasma troponin i.cardiac measurement (mass/volume) < ng/ mL <0.30 Myoglobin, serum - 01/27/16 14:53 Myoglobin, serum 35.3 ng/mL 10.0-92.0 Complete blood count (CBC) with automated white blood cell (WBC) differential - 03/01/16 15:35 Blood leukocytes automated count (number/volume) 13.5 10*3/uL 4.3-11.0 Blood erythrocytes automated count (number/volume) 4.62 10*6/uL 4.35-5.85 Venous blood hemoglobin measurement (mass/volume) 14.4 [...] Automated blood platelet mean volume measurement 9.2 [foz_us] 7.4-10.4 Automated blood neutrophils/100 leukocytes 95 % [...] NRG Blood erythrocyte morphology finding identification NORMAL NRG Comprehensive metabolic panel - 03/01/16 15:35 Serum or plasma sodium measurement (moles/volume) 138 mmol/L 135-145 Serum or plasma potassium measurement (moles/volume) 3.8 mmol/L 3.6-5.0 Serum or plasma chloride measurement (moles/volume) 106 mmol/L 98-107 Carbon dioxide 20 mmol/L 21-32 Serum or plasma anion gap determination (moles/volume) 12 mmol/L 5-14 Serum or plasma urea nitrogen measurement (mass/volume) 20 mg/dL 7-18 Serum or plasma creatinine measurement (mass/volume) 0.87 mg/dL 0.60-1.30 Serum or plasma urea nitrogen/creatinine mass [...] Urine pH measurement by test strip 8 5-9 Specific gravity of urine by test strip 1.010 1.016- 1.022 Urine protein assay by test strip, semi-quantitative [...] Urine pH measurement by test strip 5 5-9 Specific gravity of urine by test strip 1.020 1.016- 1.022 Urine protein assay by test strip, semi-quantitative [...] Serum or plasma sodium measurement (moles/volume) 129 mmol/L 135-145 Serum or plasma potassium measurement (moles/volume) 4.4 mmol/L 3.6-5.0 Serum or plasma chloride measurement (moles/volume) 94 mmol/L 98-107 Carbon dioxide 22 mmol/L 21-32 Serum or plasma anion gap determination (moles/volume) 13 mmol/L 5-14 Serum or plasma urea nitrogen measurement (mass/volume) 37 mg/dL 7-18 Serum or plasma creatinine measurement (mass/volume) 3.77 mg/dL 0.60-1.30 Serum or plasma urea nitrogen/creatinine mass [...] or plasma troponin i.cardiac measurement (mass/volume) < ng/ mL <0.30 TSH+Free T4 - 09/14/16 13:37 TSH 2.280 uIU/mL 0.450-4.500 T4,Free(Direct) 1.07 ng/dL 0.82-1.77 Comp. Metabolic Panel (14) - 09/14/16 13:37 Glucose, Serum 111 mg/dL 65-99 BUN 17 mg/dL 6-20 Creatinine, Serum 0.93 mg/dL 0.57-1.00 eGFR If NonAfricn Am 78 mL/min/1.73 >59 eGFR If Africn Am 90 mL/min/1.73 >59 BUN/Creatinine Ratio 18 9-23 Sodium, Serum 136 mmol/L 134-144 Potassium, Serum 4.5 mmol/L 3.5-5.2 Chloride, Serum 97 mmol/L 96-106 Carbon Dioxide, Total 20 mmol/L 18-29 Calcium, Serum 9.5 mg/dL 8.7-10.2 Protein, Total, Serum 7.6 g/dL 6.0-8.5 Albumin, Serum 4.8 g/dL 3.5-5.5 Globulin, Total 2.8 g/dL 1.5-4.5 A/G Ratio 1.7 1.2-2.2 Bilirubin, Total <0.2 mg/dL 0.0-1.2 Alkaline Phosphatase, S 138 IU/L 39-117 AST (SGOT) 21 IU/L 0-40 ALT (SGPT) 22 IU/L 0-32 Vitamin D, 25-Hydroxy - 09/14/16 13:37 Vitamin D, 25-Hydroxy 14.4 ng/mL 30.0-100.0 GGT - 09/14/16 13:37 GGT 34 IU/L 0-60 Urine beta human chorionic gonadotropin (hCG) measurement - 09/25/16 21:40 Urine beta human chorionic gonadotropin (hCG) measurement NEGATIVE NEGATIVE Complete urinalysis with reflex to culture - 09/25/16 21:40 Urine color determination YELLOW NRG Urine clarity determination SLIGHTLY CLOUDY NRG Urine pH measurement by test strip 6 5-9 Specific gravity of urine by test strip 1.030 1.016- 1.022 Urine protein assay by test strip, semi-quantitative [...] 22:03 Blood leukocytes automated count (number/volume) 6.9 10*3/uL 4.3-11.0 Blood erythrocytes automated count (number/volume) 3.87 10*6/uL 4.35-5.85 Venous blood hemoglobin measurement (mass/volume) 11.9 [...] Automated blood platelet mean volume measurement 9.0 [foz_us] 7.4-10.4 Automated blood neutrophils/100 leukocytes 55 % [...] Serum or plasma sodium measurement (moles/volume) 139 mmol/L 135-145 Serum or plasma potassium measurement (moles/volume) 3.4 mmol/L 3.6-5.0 Serum or plasma chloride measurement (moles/volume) 107 mmol/L 98-107 Carbon dioxide 22 mmol/L 21-32 Serum or plasma anion gap determination (moles/volume) 10 mmol/L 5-14 Serum or plasma urea nitrogen measurement (mass/volume) 20 mg/dL 7-18 Serum or plasma creatinine measurement (mass/volume) 1.28 mg/dL 0.60-1.30 Serum or plasma urea nitrogen/creatinine mass [...] plasma albumin measurement (mass/volume) 4.1 g/dL 3.2-4.5 Basic Metabolic Panel (8) - 09/26/16 13:40 Glucose, Serum 117 mg/dL 65-99 BUN 16 mg/dL 6-20 Creatinine, Serum 0.74 mg/dL 0.57-1.00 eGFR If NonAfricn Am 103 mL/min/1.73 >59 eGFR If Africn Am 119 mL/min/1.73 >59 BUN/Creatinine Ratio 22 9-23 Sodium, Serum 139 mmol/L 134-144 Potassium, Serum 4.3 mmol/L 3.5-5.2 Chloride, Serum 102 mmol/L 96-106 Carbon Dioxide, Total 17 mmol/L 18-29 Calcium, Serum 9.3 mg/dL 8.7-10.2 Complete blood count (CBC) with automated white blood cell (WBC) differential - 12/06/16 20:50 Blood leukocytes automated count (number/volume) 13.6 10*3/uL 4.3-11.0 Blood erythrocytes automated count (number/volume) 4.43 10*6/uL 4.35-5.85 Venous blood hemoglobin measurement (mass/volume) 13.8 [...] Automated blood platelet mean volume measurement 9.3 [foz_us] 7.4-10.4 Automated blood neutrophils/100 leukocytes 68 % [...] Serum or plasma sodium measurement (moles/volume) 135 mmol/L 135-145 Serum or plasma potassium measurement (moles/volume) 3.8 mmol/L 3.6-5.0 Serum or plasma chloride measurement (moles/volume) 101 mmol/L 98-107 Carbon dioxide 19 mmol/L 21-32 Serum or plasma anion gap determination (moles/volume) 15 mmol/L 5-14 Serum or plasma urea nitrogen measurement (mass/volume) 20 mg/dL 7-18 Serum or plasma creatinine measurement (mass/volume) 2.02 mg/dL 0.60-1.30 Serum or plasma urea nitrogen/creatinine mass [...] or plasma amylase measurement (enzymatic activity/volume) 59 U /L 25-125 Lipase - 12/06/16 20:50 Lipase 25 U/L 8-78 Complete urinalysis with reflex to culture - 12/06/16 21:42 Urine color determination YELLOW NRG Urine clarity determination SLIGHTLY CLOUDY NRG Urine pH measurement by test strip 6 5-9 Specific gravity of urine by test strip 1.010 1.016- 1.022 Urine protein assay by test strip, semi-quantitative [...] culture - 12/06/16 21:42 Bacterial urine culture [id number] NRG COLONY COUNT 10,000/ML - 100,000/ML NRG FTX;REPORTABLE SENSITIVITY REPORTED AT 0830, 12-08-16 NR URINE CULTURE RESULTS PLUS NR Bacterial susceptibility panel - 12/06/16 21:42 Gentamicin susceptibility test by minimum inhibitory concentration < = NRG Trimethoprim/sulfamethoxazole susceptibility test by minimum inhibitoryconcentration <= NRG Ampicillin susceptibility test by minimum inhibitory concentration 8 NRG Tobramycin susceptibility test by minimum inhibitory concentration < = NRG Cefazolin susceptibility test by minimum inhibitory concentration < = NRG Ceftriaxone susceptibility test by minimum inhibitory concentration <= NRG Ampicillin/sulbactam susceptibility test by minimum inhibitory concentration 4 NRG Piperacillin/tazobactam susceptibility test by minimum inhibitory concentration <= NRG Ciprofloxacin susceptibility test by minimum inhibitory concentration <= NRG Meropenem susceptibility test by minimum inhibitory concentration < = NRG Nitrofurantoin susceptibility test by minimum inhibitory concentration <= NRG Aztreonam susceptibility test by minimum inhibitory concentration < = NRG Extended spectrum beta lactamase (ESBL) producing bacteria susceptibility test by minimum inhibitory concentration - NRG Complete urinalysis with reflex to culture - 12/21/16 13:17 Urine color determination YELLOW NRG Urine clarity determination VERY CLOUDY NRG Urine pH measurement by test strip 6 5-9 Specific gravity of urine by test strip 1.015 1.016- 1.022 Urine protein assay by test strip, semi-quantitative [...] Urine pH measurement by test strip 6 5-9 Specific gravity of urine by test strip 1.010 1.016- 1.022 Urine protein assay by test strip, semi-quantitative [...] culture - 12/28/16 17:00 Bacterial urine culture [id number] NRG COLONY COUNT 10,000/ML - 100,000/ML NRG FREE TEXT ENTRY 2 MIXED GRAM POSITIVE ANURAG NRG Basic Metabolic Panel (8) - 01/06/17 13:06 Glucose, Serum 96 mg/dL 65-99 BUN 14 mg/dL 6-20 Creatinine, Serum 0.76 mg/dL 0.57-1.00 eGFR If NonAfricn Am 100 mL/min/1.73 >59 eGFR If Africn Am 115 mL/min/1.73 >59 BUN/Creatinine Ratio 18 9-23 Sodium, Serum 139 mmol/L 134-144 Potassium, Serum 4.1 mmol/L 3.5-5.2 Chloride, Serum 99 mmol/L 96-106 Carbon Dioxide, Total 20 mmol/L 18-29 Calcium, Serum 9.8 mg/dL 8.7-10.2 Urine drug screening test - 04/10/17 19:58 Urine phencyclidine detection by screening method NEGATIVE [...] NEGATIVE NEGATIVE Urine propoxyphene detection NEGATIVE NEGATIVE Complete urinalysis with reflex to culture - 04/10/17 19:58 Urine color determination YELLOW NRG Urine clarity determination CLEAR NRG Urine pH measurement by test strip 6 5-9 Specific gravity of urine by test strip 1.010 1.016- 1.022 Urine protein assay by test strip, semi-quantitative [...] with reflex to culture NO NRG Complete blood count (CBC) with automated white blood cell (WBC) differential - 04/10/17 20:21 Blood leukocytes automated count (number/volume) 8.2 10*3/uL 4.3-11.0 Blood erythrocytes automated count (number/volume) 4.41 10*6/uL 4.35-5.85 Venous blood hemoglobin measurement (mass/volume) 13.9 g/dL 11.5-16.0 Blood hematocrit (volume fraction) 40 % 35-52 Automated erythrocyte mean corpuscular volume 90 [foz_us] 80-99 Automated erythrocyte mean corpuscular hemoglobin (mass per erythrocyte) 32 pg 25-34 Automated erythrocyte mean corpuscular hemoglobin concentration measurement ( mass/volume) 35 g/dL 32-36 Automated erythrocyte distribution width ratio 12.3 % 10.0-14.5 Automated blood platelet count (count/volume) 316 10*3/uL 130-400 Automated blood platelet mean volume measurement 9.4 [foz_us] 7.4-10.4 Automated blood neutrophils/100 leukocytes 63 % 42-75 Automated blood lymphocytes/100 leukocytes 32 % 12-44 Blood monocytes/100 leukocytes 5 % 0-12 Automated blood eosinophils/100 leukocytes 0 % 0-10 Automated blood basophils/100 leukocytes 0 % 0-10 Blood neutrophils automated count (number/volume) 5.2 10*3 1.8-7.8 Blood lymphocytes automated count (number/volume) 2.6 10*3 1.0-4.0 Blood monocytes automated count (number/volume) 0.4 10*3 0.0-1.0 Automated eosinophil count 0.0 10*3/uL 0.0-0.3 Automated blood basophil count (count/volume) 0.0 10*3/uL 0.0-0.1 Comprehensive metabolic panel - 04/10/17 20:21 Serum or plasma sodium measurement (moles/volume) 137 mmol/L 135-145 Serum or plasma potassium measurement (moles/volume) 3.6 mmol/L 3.6-5.0 Serum or plasma chloride measurement (moles/volume) 101 mmol/L 98-107 Carbon dioxide 24 mmol/L 21-32 Serum or plasma anion gap determination (moles/volume) 12 mmol/L 5-14 Serum or plasma urea nitrogen measurement (mass/volume) 10 mg/dL 7-18 Serum or plasma creatinine measurement (mass/volume) 0.79 mg/dL 0.60-1.30 Serum or plasma urea nitrogen/creatinine mass ratio 13 NRG Serum or plasma creatinine measurement with calculation of estimated glomerular filtration rate > NRG Serum or plasma glucose measurement (mass/volume) 82 mg/dL 70-105 Serum or plasma calcium measurement (mass/volume) 9.9 mg/dL 8.5-10.1 Serum or plasma total bilirubin measurement (mass/volume) 0.3 mg/dL 0.1-1.0 Serum or plasma alkaline phosphatase measurement (enzymatic activity/volume) 132 U/L 40-136 Serum or plasma aspartate aminotransferase measurement (enzymatic activity/ volume) 23 U/L 5-34 Serum or plasma alanine aminotransferase measurement (enzymatic activity/volume ) 32 U/L 0-55 Serum or plasma protein measurement (mass/volume) 8.2 g/dL 6.4-8.2 Serum or plasma albumin measurement (mass/volume) 4.6 g/dL 3.2-4.5 Magnesium - 04/10/17 20:21 Magnesium 2.0 mg/dL 1.8-2.4 Serum or plasma C reactive protein measurement (mass/volume) - 04/10/17 20:21 Serum or plasma C reactive protein measurement (mass/volume) 0.56 mg /dL 0.00-0.50 Encounters ACCT No. Visit Date/Time Discharge Status Pt. Type Provider Facility Loc./Unit Complaint [id number] 08/22/2014 13:09:00 08/22/2014 23:59:59 CLS Outpatient CARLOS AHUJA [id number] 07/28/2014 09:24:00 07/28/2014 23:59:59 CLS Outpatient CARLOS AHUJA [id number] 07/28/2014 09:24:00 07/28/2014 23:59:59 CLS Outpatient CARLOS AHUJA [id number] 07/16/2014 09:41:00 07/16/2014 23:59:59 CLS Outpatient WENID BLACK MD [id number] 06/26/2014 13:30:00 06/26/2014 23:59:59 CLS Outpatient WENDI BLACK MD [id number] 06/26/2014 13:30:00 06/26/2014 23:59:59 CLS Outpatient WENDI BLACK MD [id number] 06/25/2014 10:06:00 06/25/2014 23:59:59 CLS Outpatient TIN HEREDIA PSYD [id number] 06/23/2014 08:04:00 06/23/2014 23:59:59 CLS Outpatient CARLOS AHUJA [id number] 05/21/2014 11:37:00 05/21/2014 23:59:59 CLS Outpatient WENDI BLACK MD [id number] 05/21/2014 11:37:00 05/21/2014 23:59:59 CLS Outpatient WENDI BLACK MD [id number] 02/21/2014 16:26:00 02/21/2014 23:59:59 CLS Outpatient PAIGE HECK MANAV ALVES [id number] 02/17/2014 14:00:00 02/17/2014 23:59:59 CLS Outpatient DIMPLE PEÑALOZA DO [id number] 02/17/2014 14:00:00 02/17/2014 23:59:59 CLS Outpatient DIMPLE PEÑALOZA DO [id number] 01/01/2014 10:30:00 01/01/2014 23:59:59 CLS Outpatient WENDI BLACK MD [id number] 01/01/2014 10:30:00 01/01/2014 23:59:59 CLS Outpatient WENDI BLACK MD [id number] 10/23/2013 10:35:00 10/23/2013 23:59:59 CLS Outpatient GIBSON UMANG MANAV ALVES [id number] 10/02/2013 10:27:00 10/02/2013 23:59:59 CLS Outpatient RAMONMARGARETH HECK MAU A [id number] 07/26/2013 11:02:00 07/26/2013 23:59:59 CLS Outpatient PAIGE HECK MANAV ALVES [id number] 04/26/2013 13:33:00 04/26/2013 23:59:59 CLS Outpatient DIMPLE PEÑALOZA DO [id number] 03/08/2013 14:50:00 03/08/2013 23:59:59 CLS Outpatient TEOFILO FELICIANO MD [id number] 09/04/2012 15:25:00 09/04/2012 23:59:59 CLS Outpatient DIMPLE PEÑALOZA DO [id number] 08/24/2012 15:09:00 08/24/2012 23:59:59 CLS Outpatient [id number] 08/10/2012 09:40:00 08/10/2012 23:59:59 CLS Outpatient PAIGE HECK MANAV ALVES [id number] 06/21/2012 11:34:00 06/21/2012 23:59:59 CLS Outpatient GIBSON UMANG MANAV WHITEH [id number] 06/18/2012 08:06:00 06/18/2012 23:59:59 CLS Outpatient [id number] 06/15/2012 12:10:00 06/15/2012 23:59:59 CLS Outpatient [id number] 04/23/2012 13:28:00 04/23/2012 23:59:59 CLS Outpatient [id number] 03/27/2012 07:58:00 03/27/2012 23:59:59 CLS Outpatient DIMPLE PEÑALOZA DO [id number] 11/07/2012 17:40:00 Document Registration [id number] 10/30/2012 15:03:00 Document Registration [id number] 09/20/2012 09:48:00 Document Registration [id number] 01/07/2017 08:06:00 Document Registration [id number] 10/01/2017 23:32:00 10/02/2017 01:30:00 DIS Emergency GUY XIAO DO [facility] ER HEAD INJ [id number] 08/01/2017 08:45:00 08/01/2017 23:59:59 CLS Preadmit WENDI BLACK MD [facility] RAD EFFUSION,RT KNEE [id number] 04/10/2017 18:16:00 04/10/2017 21:16:00 DIS Outpatient CRYSTAL SINGLETON MD [facility] ER CRAMPING/ABD PAIN [id number] 04/02/2017 13:09:00 04/02/2017 13:59:00 DIS Emergency BOBY DANIELLE MD [facility] ER R LEG PAIN [id number] 02/20/2017 10:52:00 03/01/2017 09:25:00 DIS Outpatient WENDI BLACK MD [facility] REHAB BACK PAIN [id number] 01/15/2017 12:40:00 01/15/2017 15:28:00 DIS Emergency GUY XIAO DO [facility] ER R SIDE NUMBNESS [id number] 01/12/2017 11:42:00 01/12/2017 23:59:59 CLS Outpatient WENDI BLACK MD [facility] RAD M54.16 [id number] 12/31/2016 12:10:00 12/31/2016 13:14:00 DIS Emergency SOCORRO KEATING APRN [facility] ER BACK PAIN [id number] 12/28/2016 15:44:00 12/28/2016 18:28:00 DIS Emergency JASMINA MONTEROP [facility] ER LOWER BACK/RT LEG PAIN [id number] 12/21/2016 12:29:00 12/21/2016 14:17:00 DIS Emergency UZMA IRVING [facility] ER RIGHT LEG PAIN [id number] 12/06/2016 19:53:00 12/06/2016 22:37:00 DIS Emergency GUY XIAO DO [facility] ER RT SIDED STOMACH PAIN/ LOWER BACK PAIN/NAUSEA [id number] 09/29/2016 09:00:00 09/29/2016 23:59:59 CLS Preadmit SOFIA RICE, WENDI Dupont [facility] RAD T14.8,R74.8,E55.9 [id number] 09/25/2016 20:46:00 09/25/2016 22:51:00 DIS Emergency MANI RICE, CRYSTAL Bernal [facility] ER INJ FOOT NAUSEA KIDNEY ISSUES [id number] 09/11/2016 10:21:00 09/11/2016 14:44:00 DIS Emergency [place] RICE, ANKIT Tristan [facility] ER BILAT ARM/SHOULDER PAIN/ WEAKNESS [id number] 08/17/2016 11:13:00 08/17/2016 12:25:00 DIS Emergency GUY XIAO DO [facility] ER LEFT FOOT PAIN/SWELLING [id number] 06/30/2016 10:25:00 06/30/2016 11:30:00 DIS Emergency ALVARO CABRERA MD [facility] ER COUGH/CONGESTION BODYACHES [id number] 03/01/2016 14:57:00 03/01/2016 17:20:00 DIS Emergency SOCORRO KEATING APRN [facility] ER N/V [id number] 01/27/2016 14:25:00 01/27/2016 18:03:00 DIS Emergency SHASHI RICE, BOBY Roy [facility] ER CHEST/LEFT ARM PAIN/ SOA [id number] 06/02/2015 14:27:00 06/02/2015 17:15:00 DIS Emergency KINGA RICE, MARCELLUS Lacey [facility] ER ABD PAIN [id number] 12/28/2014 07:14:00 12/28/2014 09:34:00 DIS Emergency DEBORAH RICE, ALVARO Gaviria [facility] ER [id number] 12/02/2014 17:41:00 12/02/2014 17:59:00 DIS Emergency SOCORRO KEATING APRN [facility] ER [id number] 07/29/2014 09:04:00 07/29/2014 23:59:59 CLS Outpatient BRAYDEN RICE FACC, DIANE GAITAN CCDS [facility] CARD [id number] 07/28/2014 14:18:00 Document Registration [id number] 02/09/2010 22:17:00 Document Registration [id number] 10/02/2017 15:40:00 10/02/2017 23:59:59 CLS Outpatient SOFIA RICE, WENDI [facility] [id number] 09/15/2016 11:11:00 Document Registration [id number] 09/27/2016 09:09:00 Document Registration
[2017-10-15 01:35] LABS: BILIRUBIN,URINE NEGATIVE (NEGATIVE); CLARITY,URINE CLEAR; COLOR,URINE YELLOW; GLUCOSE, URINE (UA) NEGATIVE (NEGATIVE); KETONES,URINE NEGATIVE (NEGATIVE); LEUKOCYTE ESTERASE ,URINE 1+ (NEGATIVE); NITRITE,URINE NEGATIVE (NEGATIVE); PH,URINE 6 (5-9); PROTEIN,URINE 1+ (NEGATIVE); UROBILINOGEN,URINE NORMAL (NORMAL)
--- NOTE | 2017-10-15 01:46 | ED Abdominal Pain ---
General Chief Complaint: Abdominal/GI Problems Stated Complaint: AB BACK PAIN Nursing Triage Note: LEFT FLANK/ABD PAIN. Sepsis Screen: No Definite Risk Source of Information: Patient Exam Limitations: No Limitations History of Present Illness Date Seen by Provider: October 15, 2017 Time Seen by Provider: 00:59 Initial Comments PT ARRIVES VIA POV FROM HOME C/O LEFT FLANK PAIN, RADIATING TO LLQ SINCE WAKING THIS MORNING 10/14/17 + NAUSEA, NO VOMITING NO DIARRHEA OR CONSTIPATION NO PAIN OR PROBLEMS URINATING. NO FEVER HAS HISTORY OF UTI'S AND KIDNEY STONES HAS NOT TAKEN ANYTHING FOR PAIN LMP--S/P HYSTERECTOMY PT WITH MULTIPLE ER VISITS--VARIOUS PAIN COMPLAINTS, LAST VISIT 10/02/17 FOR BUMPING HER HEAD PCP: DR BLACK Allergies and Home Medications Allergies Coded Allergies: Sulfa (Sulfonamide Antibiotics) (Unverified Allergy, Unknown, 07/31/14) amoxicillin (Unverified Allergy, Unknown, 07/31/14) cyclobenzaprine (Unverified Allergy, Unknown, 01/15/17) morphine (Unverified Allergy, Unknown, 07/31/14) paroxetine (Unverified Allergy, Unknown, 07/31/14) sulfamethoxazole (Unverified Allergy, Unknown, 07/31/14) tramadol (Verified Allergy, Unknown, itching, 12/21/16) trimethoprim (Unverified Allergy, Unknown, 07/31/14) acetaminophen (Verified Adverse Reaction, Intermediate, nausea, 12/21/16) codeine (Verified Adverse Reaction, Intermediate, nausea, 12/21/16) hydrocodone (Unverified Adverse Reaction, Intermediate, nausea, 12/21/16) Home Medications Alprazolam 2 Mg Tablet, 2 MG PO TID PRN for ANXIETY, (Reported) Gabapentin 300 Mg Tablet, 900 MG PO BID, (Reported) Ketorolac Tromethamine 10 Mg Tablet, 10 MG PO Q6H Prescribed by: GUY XIAO on 10/15/17247 Methocarbamol 500 Mg Tablet, 500 MG PO QID Prescribed by: GUY XIAO on 10/15/17247 Patient Home Medication List Home Medication List Reviewed: Yes Review of Systems Constitutional: no symptoms reported Respiratory: No Symptoms Reported Cardiovascular: No Symptoms Reported Gastrointestinal: See HPI, Abdominal Pain, Nausea; Denies Vomiting Genitourinary: See HPI, Flank Pain Musculoskeletal: see HPI, back pain Skin: no symptoms reported Psychiatric/Neurological: No Symptoms Reported Endocrine: No Symptoms Reported Hematologic/Lymphatic: No Symptoms Reported Past Cnyystv-Gbzzdq-Krrruz Hx Patient Social History Alcohol Use: Rarely Uses Recreational Drug Use: No Smoking Status: Current Everyday Smoker (1 PPD) Type Used: Cigarettes (1 PPD) 2nd Hand Smoke Exposure: Yes Recent Foreign Travel: No Contact w/Someone Who Travel: No Recent Infectious Disease Expo: No Recent Hopitalizations: No Immunizations Up To Date Tetanus Booster (TDap): Less than 5yrs Seasonal Allergies Seasonal Allergies: No Past Medical History Surgeries: Yes (WISDOM TEETH, HYST/OVARIES INTACT, ERCP/STONE REMOVAL PRIOR TO CHOLECYSTECTOMY) Breast, Gallbladder, Hysterectomy, Nose Respiratory: Yes Asthma Cardiac: Yes High Cholesterol, Hypertension Neurological: Yes (OCCASIONAL HEADACHES) Headaches /Migraines : No 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) [employer]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 HIV/AIDS: No Genitourinary: Yes Kidney Stones, UTI-Chronic Gastrointestinal: No Musculoskeletal: Yes (LEFT FOOT FRACTURE) Chronic Back Pain, Fractures Endocrine: No HEENT: No Cancer: No Psychosocial: Yes (SUICIDAL IDEATION) Anxiety, Depression Integumentary: No Blood Disorders: No Adverse Reaction/Blood Tranf: No Family Medical History No Pertinent Family Hx Physical Exam Vital Signs Vital Signs - First Documented 10/15/17 01:03 Temp 97.1 Pulse 92 Resp 18 B/P (MAP) 123/73 (90) Pulse Ox 95 O2 Delivery Room Air Capillary Refill : Less Than 3 Seconds General Appearance: WD/WN, no apparent distress, obese Neck: normal inspection Respiratory: normal breath sounds, no respiratory distress, no accessory muscle use Cardiovascular: regular rate, rhythm, no murmur Gastrointestinal: normal bowel sounds, soft, no organomegaly, no pulsatile mass ; No distended, No guarding, No rebound; tenderness (LLQ AND LEFT FLANK); No hernia, No mass Back: CVA tenderness (L) Neurologic/Psychiatric: chain splitter II-XII nml as tested, no motor/sensory deficits, alert, oriented x 3 Skin: normal color, warm/dry; No rash; tattoos/piercings (TATTOOS) Progress/Results/Core Measures Results/Orders Lab Results Laboratory Tests Test 10/15/17 01:20 10/15/17 01:45 Range/Units Urine Color YELLOW Urine Clarity CLEAR Urine pH 6 5-9 Urine Specific Gould 1.020 1.016-1.022 Urine Protein 1+ H NEGATIVE Urine Glucose (UA) NEGATIVE NEGATIVE Urine Ketones NEGATIVE NEGATIVE Urine Nitrite NEGATIVE NEGATIVE Urine Bilirubin NEGATIVE NEGATIVE Urine Urobilinogen NORMAL NORMAL MG/DL Urine Leukocyte Esterase 1+ H NEGATIVE Urine RBC (Auto) NEGATIVE NEGATIVE Urine RBC NONE /HPF Urine WBC RARE /HPF Urine Squamous Epithelial Cells 25-50 H /HPF Urine Crystals NONE /LPF Urine Bacteria TRACE /HPF Urine Casts NONE /LPF Urine Mucus MODERATE H /LPF Urine Culture Indicated NO White Blood Count 7.7 4.3-11.0 10^3/uL Red Blood Count 3.91 L 4.35-5.85 10^6/uL Hemoglobin 12.5 11.5-16.0 G/DL Hematocrit 35 35-52 % Mean Corpuscular Volume 91 80-99 FL Mean Corpuscular Hemoglobin 32 25-34 PG Mean Corpuscular Hemoglobin Concent 35 32-36 G/DL Red Cell Distribution Width 12.9 10.0-14.5 % Platelet Count 327 130-400 10^3/uL Mean Platelet Volume 9.2 7.4-10.4 FL Neutrophils (%) (Auto) 53 42-75 % Lymphocytes (%) (Auto) 36 12-44 % Monocytes (%) (Auto) 11 0-12 % Eosinophils (%) (Auto) 0 0-10 % Basophils (%) (Auto) 0 0-10 % Neutrophils # (Auto) 4.0 1.8-7.8 X 10^3 Lymphocytes # (Auto) 2.7 1.0-4.0 X 10^3 Monocytes # (Auto) 0.9 0.0-1.0 X 10^3 Eosinophils # (Auto) 0.0 0.0-0.3 10^3/uL Basophils # (Auto) 0.0 0.0-0.1 10^3/uL Sodium Level 138 135-145 MMOL/L Potassium Level 3.5 L 3.6-5.0 MMOL/L Chloride Level 106 98-107 MMOL/L Carbon Dioxide Level 20 L 21-32 MMOL/L Anion Gap 12 5-14 MMOL/L Blood Urea Nitrogen 11 7-18 MG/DL Creatinine 0.74 0.60-1.30 MG/DL Estimat Glomerular Filtration Rate > 60 BUN/Creatinine Ratio 15 Glucose Level 91 70-105 MG/DL Calcium Level 9.2 8.5-10.1 MG/DL Total Bilirubin 0.2 0.1-1.0 MG/DL Aspartate Amino Transf (AST/SGOT) 17 5-34 U/L Alanine Aminotransferase (ALT/SGPT) 18 0-55 U/L Alkaline Phosphatase 104 40-136 U/L Total Protein 7.0 6.4-8.2 GM/DL Albumin 4.3 3.2-4.5 GM/DL Amylase Level 49 25-125 U/L Lipase 113 H 8-78 U/L My Orders Orders - GUY XIAO DO Ct Abd/Pelvis Wo(Kidney Stone) (10/15/17 01:08) Amylase (10/15/17 01:08) Cbc With Automated Diff (10/15/17 01:08) Comprehensive Metabolic Panel (10/15/17 01:08) Lipase (10/15/17 01:08) Ua Culture If Indicated (10/15/17 01:08) Acute Abd Series (10/15/17 01:08) Saline Lock/Iv-Start (10/15/17 01:08) Ketorolac Injection (Toradol Injection) (10/15/17 01:08) Ondansetron Injection (Zofran Injectio (10/15/17 01:15) Saline Lock/Iv-Start (10/15/17 01:08) Lactated Ringers (Lr 1000 Ml Iv Solution (10/15/17 01:08) Medications Given in ED Current Medications Medications Dose Ordered Sig/Brandon Route Start Time Stop Time Status Last Admin Dose Admin Lactated Ringer's 1,000 ml @ 0 mls/hr Q0M ONCE IV 10/15/17 01:08 10/15/17 01:12 DC 10/15/17 01:26 0 MLS/HR Ondansetron HCl 4 mg ONCE ONCE IVP 10/15/17 01:15 10/15/17 01:16 DC 10/15/17 01:26 4 MG Vital Signs/I&O 10/15/17 10/15/17 01:03 02:30 Temp 97.1 Pulse 92 65 Resp 18 16 B/P (MAP) 123/73 (90) 100/54 (69) Pulse Ox 95 95 O2 Delivery Room Air Room Air Blood Pressure Mean: 90 Progress Progress Note : Progress Note UNEVENTFUL ER STAY Diagnostic Imaging Comments ACUTE ABDOMEN XRAYS--NO ACUTE PROCESS, PENDING RADIOLOGIST REVIEW CT ABDOMEN/PELVIS--NO ACUTE PROCESS, PER [facility] VIA FAX AT 0242 Reviewed: Reviewed by Me Departure Impression Primary Impression: LEFT FLANK AND LLQ PAIN Disposition: HOME, SELF-CARE Condition: Stable Departure-Patient Inst. Referrals: WENDI BLACK MD (PCP/Family) Primary Care Physician Patient Instructions: Flank Pain (DC) Add. Discharge Instructions: TAKE YOUR REGULAR MEDICATIONS PRESCRIBED FOLLOW UP WITH YOUR DR IN 2-3 DAYS IF NO BETTER RETURN TO ER IF WORSE All discharge instructions reviewed with patient and/or family. Voiced understanding. Scripts Methocarbamol (Robaxin) 500 Mg Tablet 500 MG PO QID for Muscle Spasms, #20 TAB Prov: GUY XIAO DO 10/15/17 Ketorolac Tromethamine (Ketorolac Tromethamine) 10 Mg Tablet 10 MG PO Q6H for Pain, #15 TAB Prov: GUY XIAO DO 10/15/17 GUY XIAO DO October 15, 2017 01:45
[2017-10-15 01:48] LABS: BACTERIA,URINE TRACE /HPF; SQUAMOUS EPITHELIAL CELL,UR 25-50 /HPF; WBC,URINE RARE /HPF
[2017-10-15 01:52] LABS: BASOPHILS % (AUTO) 0 % (0-10); EOSINOPHILS % (AUTO) 0 % (0-10); HEMATOCRIT 35 % (35-52); HEMOGLOBIN 12.5 G/DL (11.5-16.0); LYMPHOCYTES # (AUTO) 2.7 X 10^3 (1.0-4.0); LYMPHOCYTES % (AUTO) 36 % (12-44); MEAN CORPUSCULAR HEMOGLOBIN 32 PG (25-34); MEAN CORPUSCULAR HGB CONC 35 G/DL (32-36); MEAN CORPUSCULAR VOLUME 91 FL (80-99); MEAN PLATELET VOLUME 9.2 FL (7.4-10.4); MONOCYTES # (AUTO) 0.9 X 10^3 (0.0-1.0); MONOCYTES % (AUTO) 11 % (0-12); NEUTROPHILS % (AUTO) 53 % (42-75); PLATELET COUNT 327 10^3/uL (130-400); RED BLOOD COUNT 3.91 10^6/uL (4.35-5.85); RED CELL DISTRIBUTION WIDTH 12.9 % (10.0-14.5); WHITE BLOOD COUNT 7.7 10^3/uL (4.3-11.0)
[2017-10-15 02:12] LABS: ALANINE AMINOTRANSFERASE 18 U/L (0-55); ALBUMIN 4.3 GM/DL (3.2-4.5); ALKALINE PHOSPHATASE 104 U/L (40-136); AMYLASE 49 U/L (25-125); BILIRUBIN,TOTAL 0.2 MG/DL (0.1-1.0); BUN/CREATININE RATIO 15; CALCIUM 9.2 MG/DL (8.5-10.1); CARBON DIOXIDE 20 MMOL/L (21-32); CHLORIDE 106 MMOL/L (98-107); CREATININE SERUM 0.74 MG/DL (0.60-1.30); GFR ESTIMATED > 60; GLUCOSE 91 MG/DL (70-105); LIPASE 113 U/L (8-78); POTASSIUM 3.5 MMOL/L (3.6-5.0); SODIUM 138 MMOL/L (135-145)
[2017-10-15 02:30] VITALS: BP 100/54
[2017-10-15] MEDS ORDERED: KETO10TA PO (02:48)
[2017-10-15] MEDS ORDERED: METH500T PO (02:48)
[2017-10-15 02:50] VITALS: BP 105/56
--- NOTE | 2017-10-15 07:55 | Diagnostic Imaging Report ---
PROCEDURE: CT urinary tract, rule out kidney stone. TECHNIQUE: Multiple contiguous axial images were obtained through the abdomen and pelvis without the use of intravenous contrast. INDICATION: Left flank and abdominal pain. Comparison: 04/10/2017 Findings: The lung bases are clear. The heart is normal in size. There is no pericardial effusion. No focal liver lesions are seen. Cholecystectomy clips are present. The spleen appears normal. The pancreas appears normal. Adrenal glands are normal. The kidneys demonstrate no focal calculi. There is no hydronephrosis or hydroureter. No obstructing ureteral stones are seen. The urinary bladder is decompressed with no calculi seen. The bowel loops are nondistended without evidence of obstruction. The appendix is normal. There is no free fluid or free air. No significant adenopathy is seen. No acute osseous abnormality is seen. Impression: 1. No renal calculi or hydronephrosis seen. No acute abdominopelvic abnormality identified. Dictated by: Dictated on workstation # [id number]
--- NOTE | 2017-10-15 07:57 | Diagnostic Imaging Report ---
PATIENT HISTORY: Left flank and abdominal pain. TECHNIQUE: PA view of the chest. Frontal supine and upright views of the abdomen COMPARISON: 12/06/2016 FINDINGS: Lung volumes are normal. No focal consolidation is seen. There is no pleural effusion or pneumothorax. The cardiomediastinal silhouette is normal in size and contour. The bowel loops are nondistended without evidence of obstruction. There is a small amount of stool in the colon. No large collection of free air seen. There are mild degenerative changes at the lower lumbar spine. Cholecystectomy clips are noted. IMPRESSION: No evidence of bowel obstruction or large collection of free air. No acute pulmonary abnormality. Dictated by: Dictated on workstation # [id number]
== END 2017-10-15 02:49 | disposition home or self-care (01) ==
LOC: EDUNIT# 00:49 → ER 00:51
DX: R10.32 Left lower quadrant pain (principal); F41.9 Anxiety disorder, unspecified; F32.9 Major depressive disorder, single episode, unspecified; E78.00 Pure hypercholesterolemia, unspecified; I10 Essential (primary) hypertension; G43.909 Migraine, unspecified, not intractable, without status migrainosus; J45.909 Unspecified asthma, uncomplicated; F17.210 Nicotine dependence, cigarettes, uncomplicated; Z87.81 Personal history of (healed) traumatic fracture; Z87.442 Personal history of urinary calculi; Z87.440 Personal history of urinary (tract) infections; Z90.710 Acquired absence of both cervix and uterus; Z88.2 Allergy status to sulfonamides; Z88.1 Allergy status to other antibiotic agents; Z88.5 Allergy status to narcotic agent; Z88.8 Allergy status to other drugs, medicaments and biological substances
CPT/HCPCS: 36415; 74022; 74176; 80053; 81000; 82150; 83690; 85025; 96374; 96375

== ENCOUNTER 2018-08-19 09:05 | Emergency (ER) | payer SELFPAY ==
[~2018-08-19] VITALS: Ht 172.7 cm; Wt 124.7 kg
[~2018-08-19 09:05] MED LIST changes: +HYDR25TA4; +KETO10TA PO; +METH500T PO
--- OUTSIDE RECORDS SUMMARY | 2018-08-19 09:13 | XMS REPORT ---
Author Author SOFIA WENDI Organization [facility] Address [address] [place] [address] Care Team Providers Care Blood Tester Fowl Name Role Phone SOFIAMARIA EUGENIA ELIZABETHHANY Unavailable PROBLEMS Type Condition ICD9-CM Code TRY08-IM Code Onset Dates Condition Status SNOMED Code Problem Posttraumatic stress disorder F43.10 Active 61952473 Problem Generalized anxiety disorder F41.1 Active 29972048 Problem Panic disorder F41.0 Active 633160836 Problem Nausea R11.0 Active 044502330 Problem Anxiety F41.9 Active 32997611 Problem Hot flashes R23.2 Active 381761626 Problem Hematuria R31.9 Active 22872037 Problem Mixed hyperlipidemia E78.2 Active 672106209 Problem Low back pain with sciatica, sciatica laterality unspecified, unspecified back pain laterality, unspecified chronicity M54.40 Active 796843483 Problem Bipolar disorder, current episode mixed, moderate F31.62 Active 226659978 Problem Multiple fractures T07.XXXA Active 828355179 Problem Acute right-sided low back pain with right-sided sciatica M54.41 Active 46077181 Problem Gastroesophageal reflux disease, esophagitis presence not specified K21.9 Active 215719130 Problem Bipolar disorder F31.9 Active 42154736 Problem Primary insomnia F51.01 Active 183589182 Problem Mild intermittent asthma without complication J45.20 Active 796023385 Problem Hidradenitis suppurativa L73.2 Active 00955731 Problem History of IBS Z87.19 Active 59867545274206 Problem Essential hypertension I10 Active 12164772 Problem Genital herpes simplex, unspecified site A60.00 Active 16751170 Problem Vitamin D deficiency E55.9 Active 70903744 Problem Depression F32.9 Active 63307378 Problem Tobacco use Z72.0 Active 658490565 ALLERGIES No Information ENCOUNTERS Encounter Location Date Diagnosis [facility] [id number] [address] Apr, [facility] [address], [place] [address] Apr, [facility] [id number] [place] [address] 94201- 8662 Mar, [facility] [id number] [place] [address] 76134- 7762 Mar, Genital herpes simplex, unspecified site A60.00 [facility] [id number] [place] [address] 84112- 0515 Mar, [facility] [id number] [place] [address] 172414- 2214 Mar, [facility] [id number] [place] [address] 72920- 2233 Mar, Panic disorder F41.0 [facility] [id number] [place] [address] 09164- 3662 Mar, [facility] [id number] [place] [address] 19845- 2245 Mar, Genital herpes simplex, unspecified site A60.00 and Hidradenitis L73.2 [facility] [address] [place] [address] 46342- 3055 Feb, Panic disorder F41.0 ; Bipolar disorder, current episode mixed, moderate F31.62 and Generalized anxiety disorder F41.1 [facility] [address], [place] [address] 1526 Feb, Panic disorder F41.0 [facility] [id number] [place] [address] 22682- 9953 Jan, Genital herpes simplex, unspecified site A60.00 [facility] [address] [place] [address] 66643- 3752 Jan, Panic disorder F41.0 [facility] [id number] [place] [address] 33829- 7580 Dec, Diaphoresis R61 and Excessive thirst R63.1 [facility] [id number] [place] [address] 01966- 6978 Dec, Panic disorder F41.0 ; Bipolar disorder, current episode mixed, moderate F31.62 and Generalized anxiety disorder F41.1 [facility] [address] 54715- 7982 Dec, Panic disorder F41.0 [facility] [id number] [place] [address] 89595- 8380 Nov, Panic disorder F41.0 [facility] [id number] [place] [address] 00299- 3516 Nov, Panic disorder F41.0 ; Generalized anxiety disorder F41.1 and Bipolar disorder, current episode mixed, moderate F31.62 [facility] [id number] [place] [address] 83488- 5891 Nov, Panic disorder F41.0 [facility] [id number] [place] [address] 19183- 4526 Nov, Panic disorder F41.0 [facility] [id number] [place] [address] 38677- 3459 October, Panic disorder F41.0 [facility] [id number] [place] [address] 65002- 5995 October, Panic disorder F41.0 ; Generalized anxiety disorder F41.1 and Bipolar disorder, current episode mixed, moderate F31.62 [facility] [id number] [place] [address] 06704- 4188 October, Panic disorder F41.0 [facility] [id number] [place] [address] 29416- 9445 Sep, Hospital discharge follow-up Z09 ; Concussion without loss of consciousness, initial encounter S06.0X0A and Nausea R11.0 [facility] [id number] [place] [address] 46208- 6885 Sep, [facility] [address] 85309- 6383 Sep, Panic disorder F41.0 [facility] [id number] [place] [address] 38962- 7670 Sep, [facility] [address] 47930- 0242 Sep, Well woman exam with routine gynecological exam Z01.419 ; Multiple fractures T07.XXXA ; Hot flashes R23.2 ; Essential hypertension I10 ; Mixed hyperlipidemia E78.2 ; Genital herpes simplex, unspecified site A60.00 ; Alkaline phosphatase elevation R74.8 ; Dysuria R30.0 ; Vitamin D deficiency E55.9 ; Tobacco use Z72.0 ; High risk sexual behavior Z72.51 and Encounter for immunization Z23 [facility] [address] 96925- 1842 Aug, Panic disorder F41.0 ; Generalized anxiety disorder F41.1 and Bipolar disorder, current episode mixed, moderate F31.62 [facility] [id number] [place] [address] 98473- 3186 Aug, [facility] [id number] [place] [address] 85292- 3766 Jul, Panic disorder F41.0 ; Generalized anxiety disorder F41.1 and Bipolar disorder, current episode mixed, moderate F31.62 [facility] [id number] [place] [address] 27554- 3041 Jul, [facility] [address] 40874- 6797 Jul, [facility] [id number] [place] [address] 58714- 1309 Jul, Effusion, right knee M25.461 ; Acute pain of right knee M25.561 and Acute pain of left knee M25.562 [facility] [address] [place] [address] 40257- 5841 Jun, Bipolar disorder, current episode mixed, moderate F31.62 ; Generalized anxiety disorder F41.1 and Panic disorder F41.0 [facility] [id number] [place] [address] 31233- 3584 May, Bipolar disorder, current episode mixed, moderate F31.62 ; Generalized anxiety disorder F41.1 and Panic disorder F41.0 [facility] [id number] [place] [address] 96234- 9670 May, Bipolar disorder, current episode mixed, moderate F31.62 [facility] [id number] [place] [address] 71693- 7625 May, Bipolar disorder, current episode mixed, moderate F31.62 [facility] [id number] [place] [address] 62772- 3401 Apr, Bipolar disorder, current episode mixed, moderate F31.62 ; Generalized anxiety disorder F41.1 and Panic disorder F41.0 [facility] [id number] [place] [address] 85963- 9083 Mar, [facility] [id number] [place] [address] 11669- 1041 Mar, Bipolar disorder, current episode mixed, moderate F31.62 ; Generalized anxiety disorder F41.1 and Panic disorder F41.0 [facility] [address] [place] [address] 40298- 8246 Feb, [facility] [id number] [place] [address] 89982- 3516 22 Feb, 2017 Posttraumatic stress disorder F43.10 [facility] [address] [place] [address] 05297- 0900 20 Feb, 2017 Gastroesophageal reflux disease, esophagitis presence not specified K21.9 [facility] [id number] [place] [address] 04877- 0574 13 Feb, 2017 [facility] [id number] [place] [address] 68444- 6732 06 Feb, 2017 Knee pain, right anterior M25.561 [facility] [id number] [place] [address] 52932- 2395 05 Feb, 2017 HSV (herpes simplex virus) infection B00.9 [facility] [id number] [place] [address] 21253- 3490 Feb, [facility] [id number] [place] [address] 36288- 0899 Jan, [facility] [id number] [place] [address] 02064- 5725 Jan, Posttraumatic stress disorder F43.10 [facility] [id number] [place] [address] 38458- 9186 Jan, Foot pain, left M79.672 [facility] [id number] [place] [address] 34911- 0498 Jan, [facility] [id number] [place] [address] 15073- 7105 Jan, Lumbar radiculopathy, acute M54.16 ; Muscle spasm of back M62.830 and Right hip pain M25.551 [facility] [id number] [place] [address] 02624- 2895 Jan, Lumbar radiculopathy, acute M54.16 [facility] [id number] [place] [address] 92398- 9332 Jan, [facility] [id number] [place] [address] 21053- 7035 Jan, [facility] [id number] [place] [address] 88804- 5048 Dec, Lumbar radiculopathy, acute M54.16 ; Acute renal insufficiency N28.9 and Muscle spasm of back M62.830 [facility] [address], [place] [address]- 5904 Dec, [facility] [id number] [place] [address] 23709- 4744 Dec, [facility] [id number] [place] [address] 27742- 8927 Dec, [facility] [id number] [place] [address] 57511 -4141 Dec, Low back pain with sciatica, sciatica laterality unspecified, unspecified back pain laterality, unspecified chronicity M54.40 and Acute right-sided low back pain with right-sided sciatica M54.41 [facility] [id number] [place] [address] 84962- 8552 Dec, Posttraumatic stress disorder F43.10 [facility] [id number] [place] [address] 43946- 9378 Dec, [facility] [id number] [place] [address] 85140- 5576 Dec, Pain in right thigh M79.651 and Acute right-sided low back pain without sciatica M54.5 [facility] [address] [place] [address] 64173- 6691 Dec, Posttraumatic stress disorder F43.10 and Major depressive disorder, recurrent episode with anxious distress F33.9 [facility] [address], [place] [address]43 Dec, [facility] [address] [place] [address] 77060- 6605 Nov, [facility] [id number] [place] [address] 78311- 6503 October, [facility] [address] [place] [address] 27133- 2892 October, [facility] [id number] [place] [address] 13483- 3847 October, Knee pain, right anterior M25.561 [facility] [address] [place] [address] 97831- 1364 October, Knee pain, right anterior M25.561 [facility] [address] [place] [address] 08538- 7394 October, [facility] [id number] [place] [address] 57949- 9579 October, [facility] [id number] [place] [address] 85606- 9923 October, [facility] [id number] [place] [address] 08857 -5425 Sep, [facility] [id number] [place] [address] 43660- 3773 Sep, [facility] [id number] [place] [address] 92063- 4588 Sep, Essential hypertension I10 [facility] [id number] [place] [address] 44753- 3838 11 Sep, 2016 Essential hypertension I10 [facility] [id number] [place] [address] 81928- 7686 Sep, [facility] [address] [place] [address] 86976- 2336 Sep, Posttraumatic stress disorder F43.10 and Major depressive disorder, recurrent episode with anxious distress F33.9 [facility] [address] [place] [address] 99468- 8145 Sep, Multiple fractures T14.8 ; Alkaline phosphatase elevation R74.8 and Vitamin D deficiency E55.9 [facility] [address], [place] [address]- 6791 Sep, [facility] [id number] [place] [address] 72876- 4386 Sep, Elevated serum creatinine R79.89 ; Fracture of foot, left, closed, initial encounter S92.902A and Alkaline phosphatase elevation R74.8 [facility] [id number] [place] [address] 78547- 2400 Sep, Elevated serum creatinine R79.89 and Essential hypertension I10 [facility] [id number] [place] [address] 06311- 3797 Sep, [facility] [address] 45103- 0169 Aug, Gastroesophageal reflux disease, esophagitis presence not specified K21.9 [facility] [address] 618449- 8449 Aug, Essential hypertension I10 ; Fracture of foot, left, closed , initial encounter S92.902A and Alkaline phosphatase elevation R74.8 [facility] [address] 48272- 0844 Jul, Genital herpes simplex, unspecified site A60.00 [facility] [address] 69492- 7833 Jul, Essential hypertension I10 [facility] [address] 55556- 3898 Jun, Cough R05 and Wheezing R06.2 [facility] [id number] [place] [address] 91793- 7599 Jun, Essential hypertension I10 [facility] [id number] [place] [address] 84036- 7854 May, Essential hypertension I10 [facility] [address] 40067- 3665 May, Posttraumatic stress disorder F43.10 and Major depressive disorder, recurrent episode with anxious distress F33.9 [facility] [id number] [place] [address] 29987- 4670 Apr, [facility] [id number] [place] [address] 04095- 2863 Apr, [facility] [address] 12940- 0049 Apr, [facility] [address] 21290- 5346 Mar, [facility] [address] 96062- 8294 Feb, [facility] [address] 94611- 2994 Jan, [facility] [address] 01972- 7122 Jan, Essential hypertension I10 ; Mixed hyperlipidemia E78.2 ; Gastroesophageal reflux disease, esophagitis presence not specified K21.9 ; Mild intermittent asthma without complication J45.20 ; Hidradenitis suppurativa L73.2 ; Migraine without status migrainosus, not intractable, unspecified migraine type G43.909 ; Genital herpes simplex, unspecified site A60.00 and Closed traumatic minimally displaced fracture of metatarsal bone of left foot S92.302A [facility] [address] 20221 -5102 Jan, Localized edema R60.0 [facility] [address] 17832- 3522 Dec, [facility] [address] 30009- 7122 Dec, [facility] [id number] [place] [address] 35795- 8664 Dec, [facility] [address] 00596 -8129 Dec, Cough R05 ; Tobacco dependence F17.200 and Costochondritis , acute M94.0 [facility] [address] 27599- 2638 Dec, Major depression, recurrent F33.9 ; Bipolar disorder, unspecified F31.9 and Posttraumatic stress disorder F43.10 [facility] [address] [place] [address] 89635- 5419 Nov, [facility] [address] [address]- 5020 Nov, [facility] [id number] [place] [address] 79343- 1121 October, [facility] [address], [place] [address] -4195 October, Acute upper respiratory infection, unspecified J06.9 [facility] [id number] [place] [address] 63101- 3873 October, [facility] [id number] [place] [address] 06546- 9010 Sep, Bipolar affective disorder, remission status unspecified F31.9 and Post-traumatic stress disorder F43.10 [facility] [address] [place] [address] 38688- 4797 Sep, Bipolar disorder, unspecified F31.9 ; Posttraumatic stress disorder F43.10 and Major depression, recurrent F33.9 [facility] [address] [place] [address] 94230- 3752 Aug, Edema R60.9 ; Fatigue R53.83 and Polydipsia R63.1 [facility] [address], [place] [address]- 4392 Aug, [facility] [address], [place] [address]- 7458 Aug, [facility] [id number] [place] [address] 67534- 2318 Jul, [facility] [address], [place] [address]- 4356 Jul, [facility] [id number] [place] [address] 20502- 4196 Jun, [facility] [id number] [place] [address] 79050- 9779 Jun, [facility] [id number] [place] [address] 24209- 6829 Jun, [facility] [address] 13987- 5942 Jun, [facility] [address] 98868- 6284 May, Mixed hyperlipidemia E78.2 [facility] [address] 75287- 3999 May, Well woman exam Z01.419 ; History of herpes simplex infection Z86.19 ; Papanicolaou smear Z12.4 ; History of depression Z86.59 ; History of anxiety Z86.59 ; Lipoma of other specified sites D17.79 ; Hidradenitis suppurativa L73.2 ; Routine screening for STI (sexually transmitted infection) Z11.3 and Tobacco use Z72.0 [facility] [address] 28773- 9653 May, Hematuria R31.9 ; Essential hypertension I10 ; Pure hypercholesterolemia E78.0 and Hidradenitis L73.2 [facility] [id number] [place] [address] 18258- 0306 May, Upper respiratory symptom R09.89 and Allergic rhinitis J30.9 [facility] [id number] [place] [address] 71383- 2044 May, [facility] [address] 65752- 4165 May, [facility] [id number] [place] [address] 73040- 2038 May, Bipolar disorder, unspecified F31.9 ; Posttraumatic stress disorder F43.10 and Major depression, recurrent F33.9 [facility] [address], [place] [address]- 3645 May, [facility] [address], [place] [address]- 5526 May, [facility] [address], [place] [address]- 5532 Apr, [facility] [id number] [place] [address] 01678- 4586 Apr, [facility] [address] [place] [address] 11138- 2003 Mar, [facility] [id number] [place] [address] 18228- 6274 Mar, [facility] [address]- 8670 Mar, [facility] [id number] [place] [address] 150082- 0046 Feb, Major depressive disorder, recurrent episode, moderate 296.32 and Post traumatic stress disorder (PTSD) 309.81 [facility] [address] [address]- 7882 Feb, [facility] [address] 6612 Feb, [facility] [address] 2254 Jan, Cough 786.2 [facility] [address] 5815 Jan, Depression, major, recurrent, moderate 296.32 and Post traumatic stress disorder (PTSD) 309.81 [facility] [address], [place] [address]- 4776 Jan, [facility] [address] 3531 Dec, [facility] [address], [place] [address]- 7243 Dec, Generalized anxiety disorder 300.02 and Depression, major, recurrent, moderate 296.32 [facility] [address], [place] [address]- 3046 Dec, [facility] [address], [place] [address]- 0674 Dec, High risk medication use V58.69 [facility] [address], [place] [address]- 6193 Dec, High risk medication use V58.69 [facility] [id number] [place] [address] 06857- 0050 Dec, [facility] [address], [place] [address]- 5096 Nov, Generalized anxiety disorder 300.02 and Major depressive disorder, recurrent episode, moderate 296.32 [facility] [address] [place] [address] [id number] Nov, Dental examination V72.2 [facility] [id number] [place] [address] [id number] Nov, Dental examination V72.2 [facility] [id number] [address] Nov, [facility] [id number] [place] [address] [id number] Nov, Dental examination V72.2 [facility] [id number] [place] [address] [id number] Nov, Dental examination V72.2 [facility] [id number], [place] [address] October, Major depressive disorder, recurrent episode, moderate 296.32 and Generalized anxiety disorder 300.02 [facility] [id number], [place] [address] October, [facility] [place] [facility] [address] [id number] [place] [address] October, [facility] [place] [facility] [address] [id number] [place] [address] October, [facility] [place] [facility] [address] [id number] [place] [address] Sep, [facility] [place] [facility] [address] [id number] [place] [address] Sep, [facility] [place] [facility] [address] [id number] [place] [address] Aug, [facility] [place] [facility] [address] [id number] [place] [address] Aug, [facility] [place] [facility] [address] [id number] [place] [address] Aug, [facility] [place] [facility] [address] [id number] [place] [address] Aug, [facility] [place] [facility] [address] [id number] [place] [address] Aug, [facility] [place] [facility] [address] [id number] [place] [address] Aug, [facility] [place] [facility] [address] [id number] [place] [address] Aug, [facility] [place] [facility] [address] [id number] [place] [address] Jul, [facility] [place] [facility] [address] [id number] [place] [address] Jul, [facility] [place] [facility] [address] [id number] [place] [address] Jul, [facility] [place] [facility] [address] [id number] [place] [address] 4934 Jul, [facility] [place] [facility] [address] [id number] [address] 06 Jul, 2014 [facility] [place] [facility] [address] [id number] [place] [address] 5135 Jul, [facility] [place] [facility] [address] [id number] [place] [address] Jul, [facility] [place] [facility] [address] [id number] [place] [address]- 1676 Jul, [facility] [place] [facility] [address] [id number] [place] [address]- 4720 Jul, [facility] [place] [facility] [address] [id number] [place] [address]- 7234 Jun, [facility] [place] [facility] [address] [id number] [place] [address]- 4312 Jun, [facility] [place] [facility] [address] [id number] [place] [address]- 9288 Jun, [facility] [place] [facility] [address] [id number] [place] [address]- 6108 Jun, [facility] [place] [facility] [address] [id number] [place] [address]- 0614 Jun, [facility] [place] [facility] [address] [id number] [place] [address]- 5561 Jun, [facility] [place] [facility] [address] [id number] [place] [address]- 2799 Jun, [facility] [place] [facility] [address] [id number] [place] [address]- 8411 Jun, [facility] [place] [facility] [address] [id number] [place] [address]- 8602 Jun, [facility] [place] [facility] [address] [id number] [place] [address]- 0023 Jun, [facility] [place] [facility] [address] [id number] [place] [address]- 1148 Jun, [facility] [place] [facility] [address] [id number] [place] [address]- 3738 Jun, [facility] [place] [facility] [address] [id number] [place] [address]- 3120 Jun, [facility] [place] [facility] [address] [id number] [place] [address]- 9882 Jun, [facility] [place] [facility] [address] [id number] [place] [address]- 6051 Jun, [facility] [place] [facility] [address] [id number] [place] [address]- 7416 Jun, [facility] [place] [facility] [address] [id number] [place] [address]- 5260 Jun, [facility] [place] [facility] [address] [id number] [place] [address]- 1655 Jun, [facility] [place] [facility] [address] [id number] [place] [address]- 7240 Jun, [facility] [place] [facility] [address] [id number] [place] [address]- 3487 Jun, [facility] [place] [facility] [address] [id number] [place] [address]- 6257 Jun, [facility] [place] [facility] [address] [id number] [place] [address]- 0288 Jun, [facility] [place] [facility] [address] [id number] [place] [address]- 4270 Jun, [facility] [place] [facility] [address] [id number] [place] [address]- 2638 Jun, [facility] [place] [facility] [address] [id number] [place] [address]- 4716 Jun, [facility] [place] [facility] [address] [id number] [place] [address]- 3844 May, [facility] [place] [facility] [address] [id number] [place] [address]- 5230 May, [facility] [place] [facility] [address] [id number] [place] [address]- 2646 May, [facility] [place] [facility] [address] [id number] [place] [address] May, [facility] [place] [facility] [address] [id number] [place] [address]- 4646 May, [facility] [place] [facility] [address] [id number] [place] [address]- 7274 May, [facility] [place] [facility] [address] [id number] [place] [address]- 8030 May, [facility] [place] [facility] [address] [id number] [place] [address]- 4716 May, [facility] [place] [facility] [address] [id number] [place] [address]- 6068 May, [facility] [place] [facility] [address] [id number] [place] [address]- 7247 May, [facility] [place] [facility] [address] [id number] [place] [address]- 8515 May, [facility] [place] [facility] [address] [id number] [place] [address]- 1697 May, [facility] [place] [facility] [address] [id number] [place] [address]- 5987 May, [facility] [place] [facility] [address] [id number] [place] [address]- 5482 May, [facility] [place] [facility] [address] [id number] [place] [address]- 2652 May, [facility] [place] [facility] [address] [id number] [place] [address]- 8107 May, [facility] [place] [facility] [address] [id number] [place] [address] May, [facility] [place] [facility] [address] [id number] [place] [address]- 2958 May, [facility] [place] [facility] [address] [id number] [place] [address]- 6662 Apr, [facility] [place] [facility] [address] [id number] [place] [address]- 4046 Apr, [facility] [place] [facility] [address] [id number] [place] [address]- 5054 Apr, [facility] [place] [facility] [address] [id number] [place] [address]- 7536 Apr, [facility] [place] [facility] [address] [id number] [place] [address]- 4552 Apr, [facility] [place] [facility] [address] [id number] [place] [address]- 1476 Apr, [facility] [place] [facility] [address] [id number] [place] [address]- 8824 Apr, [facility] [place] [facility] [address] [id number] [place] [address]- 5004 Apr, [facility] [place] [facility] [address] [id number] [place] [address]- 9023 Mar, [facility] [place] [facility] [address] [id number] [place] [address]- 8055 Mar, [facility] [place] [facility] [address] [id number] [place] [address]- 7369 Feb, [facility] [place] [facility] [address] [id number] [place] [address]- 0703 Feb, [facility] [place] [facility] [address] [id number] [place] [address]- 0153 Feb, [facility] [place] [facility] [address] [id number] [place] [address]- 2240 Feb, [facility] [place] [facility] [address] [id number] [place] [address]- 1389 Feb, [facility] [place] [facility] [address] [id number] [place] [address]- 0872 Feb, [facility] [place] [facility] [address] [id number] [place] [address]- 1744 Feb, [facility] [place] [facility] [address] [id number] [place] [address]- 0039 Feb, [facility] [place] [facility] [address] [id number] [place] [address]- 2183 Feb, [facility] [place] [facility] [address] [id number] [place] [address]- 4253 Feb, [facility] [place] [facility] [address] [id number] [place] [address]- 7863 Jan, [facility] [place] [facility] [address] [id number] [place] [address]- 8644 Jan, [facility] [place] [facility] [address] [id number] [place] [address]- 9298 Jan, [facility] [place] [facility] [address] [id number] [place] [address]- 7597 Jan, [facility] [place] [facility] [address] [id number] [place] [address]- 1538 Jan, [facility] [place] [facility] [address] [id number] [place] [address]- 1054 Jan, [facility] [place] [facility] [address] [id number] [place] [address]- 1085 Jan, [facility] [place] [facility] [address] [id number] [place] [address]- 3278 Jan, [facility] [place] [facility] [address] [id number] [place] [address]- 4453 Jan, [facility] [place] [facility] [address] [id number] [place] [address]- 9515 Jan, [facility] [place] [facility] [address] [id number] [place] [address]- 5439 Jan, [facility] [place] [facility] [address] [id number] [place] [address]- 6279 Jan, [facility] [place] [facility] [address] [id number] [place] [address]- 6672 Jan, [facility] [place] [facility] [address] [id number] [place] [address]- 8900 Dec, [facility] [place] [facility] [address] [id number] [place] [address]- 3361 Dec, [facility] [place] [facility] [address] [id number] [place] [address]- 7778 Dec, [facility] [place] [facility] [address] [id number] [place] [address]- 7077 Dec, [facility] [place] [facility] [address] [id number] [place] [address]- 3294 Dec, [facility] [place] [facility] [address] [id number] [place] [address]- 5092 Dec, [facility] [place] [facility] [address] [id number] [place] [address]- 7750 Dec, [facility] [place] [facility] [address] [id number] [place] [address]- 3051 Dec, [facility] [place] [facility] [address] [id number] [place] [address]- 0467 Dec, [facility] [place] [facility] [address] [id number] [place] [address]- 9147 Dec, [facility] [place] [facility] [address] [id number] [place] [address]- 5332 Dec, [facility] [place] [facility] [address] [id number] [place] [address]- 1628 Dec, [facility] [place] [facility] [address] [id number] [place] [address]- 0707 Dec, [facility] [place] [facility] [address] [id number] [place] [address]- 0334 Dec, [facility] [place] [facility] [address] [id number] [place] [address]- 1706 Nov, [facility] [place] [facility] [address] [id number] [place] [address]- 9239 Nov, [facility] [place] [facility] [address] [id number] [place] [address]- 4898 Nov, [facility] [place] [facility] [address] [id number] [place] [address]- 3434 Nov, [facility] [place] [facility] [address] [id number] [place] [address]- 5202 Nov, [facility] [place] [facility] [address] [id number] [place] [address]- 5467 Nov, [facility] [place] [facility] [address] [id number] [place] [address]- 5095 Nov, [facility] [place] [facility] [address] [id number] [place] [address]- 9659 Nov, [facility] [place] [facility] [address] [id number] [place] [address]- 6801 October, [facility] [place] [facility] [address] [id number] [place] [address]- 3479 October, [facility] [place] [facility] [address] [id number] [place] [address]- 9514 October, [facility] [place] [facility] [address] [id number] [place] [address]- 7611 October, [facility] [place] [facility] [address] [id number] [place] [address]- 6040 October, [facility] [place] [facility] [address] [id number] [place] [address]- 5133 October, [facility] [place] [facility] [address] [id number] [place] [address]- 3290 October, [facility] [place] [facility] [address] [id number] [place] [address]- 5828 October, [facility] [place] [facility] [address] [id number] [place] [address]- 7758 October, [facility] [place] [facility] [address] [id number] [place] [address]- 4936 October, [facility] [place] [facility] [address] [id number] [place] [address]- 1609 October, [facility] [place] [facility] [address] [id number] [place] [address]- 9046 October, [facility] [place] [facility] [address] [id number] [place] [address]- 3505 October, [facility] [place] [facility] [address] [id number] [place] [address]- 9972 October, [facility] [place] [facility] [address] [id number] [place] [address]- 9967 October, [facility] [place] [facility] [address] [id number] [place] [address]- 0701 October, [facility] [place] [facility] [address] [id number] [place] [address]- 6331 Sep, [facility] [place] [facility] [address] [id number] [place] [address]- 3437 Sep, [facility] [place] [facility] [address] [id number], [place] [address]- 3065 Sep, [facility] [place] [facility] [address] [id number] [place] [address]- 8993 Sep, [facility] [place] [facility] [address] [id number] [place] [address]- 9912 Sep, [facility] [place] [facility] [address] [id number] [place] [address]- 5381 Sep, [facility] [place] [facility] [address] [id number] [place] [address]- 6595 Sep, [facility] [place] [facility] [address] [id number] [place] [address]- 2457 Sep, [facility] [place] [facility] [address] [id number] [place] [address]- 0077 Sep, [facility] [place] [facility] [address] [id number] [place] [address]- 0961 Sep, [facility] [place] [facility] [address] [id number] [place] [address]- 9587 Sep, [facility] [place] [facility] [address] [id number] [place] [address]- 9598 Sep, [facility] [place] [facility] [address] [id number] [place] [address]- 8675 Sep, [facility] [place] [facility] [address] [id number] [place] [address]- 2273 Sep, [facility] [place] [facility] [address] [id number] [place] [address]- 4894 Sep, [facility] [place] [facility] [address] [id number] [place] [address]- 6427 Sep, [facility] [place] [facility] [address] [id number] [place] [address]- 4724 Sep, [facility] [place] [facility] [address] [id number] [place] [address]- 7946 Sep, [facility] [place] [facility] [address] [id number] [place] [address]- 5972 Sep, [facility] [place] [facility] [address] [id number] [place] [address]- 5897 Aug, [facility] [place] [facility] [address] [id number] [place] [address]- 0832 Aug, [facility] [place] [facility] [address] [id number] [place] [address]- 8542 Aug, [facility] [place] [facility] [address] [id number] [place] [address]- 6939 Aug, [facility] [place] [facility] [address] [id number] [place] [address]- 5187 Jul, [facility] [place] [facility] [address] [id number] [place] [address]- 2280 Jul, [facility] [place] [facility] [address] [id number] [place] [address]- 3994 Jul, [facility] [place] [facility] [address] [id number] [place] [address]- 0651 Jul, [facility] [place] [facility] [address] [id number] [place] [address]- 3476 Jul, [facility] [place] [facility] [address] [id number] [place] [address]- 1375 Jul, [facility] [place] [facility] [address] [id number] [place] [address]- 6098 Jul, [facility] [place] [facility] [address] [id number] [place] [address]- 3702 Jul, [facility] [place] [facility] [address] [id number] [place] [address]- 7603 Jul, [facility] [place] [facility] [address] [id number] [place] [address]- 4173 Jul, [facility] [place] [facility] [address] [id number] [place] [address]- 0441 Jul, [facility] [place] [facility] [address] [id number] [place] [address]- 6042 Jul, [facility] [place] [facility] [address] [id number] [place] [address]- 7315 Jun, [facility] [place] [facility] [address] [id number] [place] [address]- 6489 Jun, [facility] [place] [facility] [address] [id number] [place] [address]- 5421 Jun, [facility] [address] [id number] [place] [address]- 3497 Jun, [facility] [address] [id number] [place] [address]- 9824 Jun, [facility] [address] [id number] [place] [address]- 9033 Jun, [facility] [address] [id number] [place] [address]- 1700 May, [facility] [address] [id number] [place] [address]- 4763 May, [facility] [address] [id number] [place] [address]- 0954 Apr, [facility] [address] [id number] [place] [address]- 5296 Apr, [facility] [address] [id number] [place] [address]- 8218 Apr, [facility] [address] [id number] [place] [address]- 4433 19 Apr, 2013 [facility] [address] [id number] [place] [address]- 5329 18 Apr, 2013 [facility] [address] [id number] [place] [address]- 6517 18 Apr, 2013 [facility] [address] [id number] [place] [address]- 9173 17 Apr, 2013 [facility] [place] [facility] [address] [id number] [place] [address]- 1246 15 Apr, 2013 [facility] [address] [id number] [place] [address]- 8278 15 Apr, 2013 [facility] [address] [id number] [place] [address]- 7711 15 Apr, 2013 [facility] [place] [facility] [address] [id number] [place] [address]- 9050 15 Apr, 2013 [facility] [place] [facility] [address] [id number] [place] [address]- 1881 Apr, [facility] [place] [facility] [address] [id number] [place] [address]- 5552 Apr, [facility] [place] [facility] [address] [id number] [place] [address]- 6724 31 Mar, 2013 [facility] [place] [facility] [address] [id number] [place] [address]- 5852 31 Mar, 2013 [facility] [place] [facility] [address] [id number] [place] [address]- 8266 Mar, [facility] [place] [facility] [address] [id number] [place] [address]- 6589 25 Mar, 2013 [facility] [place] [facility] [address] [id number], [place] [address]- 5204 Mar, [facility] [place] [facility] [address] [id number] [place] [address]- 4305 17 Mar, 2013 [facility] [place] [facility] [address] [id number], [place] [address]- 0478 14 Mar, 2013 [facility] [place] [facility] [address] [id number], [place] [address] 14 Mar, 2013 [facility] [place] [facility] [address] [id number], [place] [address] 11 Mar, 2013 [facility] [place] [facility] [address] [id number] [place] [address] 47[address] Mar, [facility] [place] [facility] [address] [id number], [place] [address] 02 Mar, 2013 [facility] [place] [facility] [address] [id number], [place] [address] 30 Feb, 2013 [facility] [place] [facility] [address] [id number] [place] [address] 5765 28 Feb, 2013 [facility] [address] [id number] [place] [address]60 27 Feb, 2013 [facility] [place] [facility] [address] [id number] [place] [address] 6937 27 Feb, 2013 [facility] [address] [id number] [place] [address] 3791 20 Feb, 2013 [facility] [place] [facility] [address] [id number] [place] [address] 0169 10 Feb, 2013 [facility] [address] [id number] [place] [address] 17[address] Jan, [facility] [place] [facility] [address] [id number] [place] [address] 9528 Jan, [facility] [address] [id number] [place] [address] 9087 Dec, [facility] [place] [facility] [address] [id number] [place] [address]- 4271 Dec, [facility] [address] [id number] [place] [address]994 Dec, [facility] [place] [facility] [address] [id number] [place] [address]- 4846 Dec, [facility] [address] [id number] [place] [address]- 8[address] Nov, [facility] [place] [facility] [address] [id number] [place] [address]- [address]645 Nov, [facility] [place] [facility] [address] [id number] [place] [address] 4224 Nov, [facility] [place] [facility] [address] [id number] [place] [address]655 October, [facility] [place] [facility] [address] [id number] [place] [address]- 6948 October, [facility] [place] [facility] [address] [id number] [place] [address]- 8243 October, [facility] [address] [id number] [place] [address]- 0611 October, [facility] [place] [facility] [address] [id number] [place] [address]- 0862 October, [facility] [place] [facility] [address] [id number] [place] [address]- [address]44 Sep, [facility] [place] [facility] [address] [id number] [place] [address]- [address] Sep, [facility] [place] [facility] [address] [id number] [place] [address] 34[address] Aug, [facility] [place] [facility] [address] [id number] [place] [address]- 7273 Aug, [facility] [place] [facility] [address] [id number] [place] [address]- 3868 Aug, [facility] [address] [id number] [place] [address]- 7577 Aug, [facility] [place] [facility] [address] [id number] [place] [address]- 4579 Aug, [facility] [place] [facility] [address] [id number] [place] [address] Jul, [facility] [place] [facility] [address] [id number] [place] [address]- 1723 Jul, [facility] [place] [facility] [address] [id number] [place] [address]- 6617 Jul, [facility] [place] [facility] [address] [id number] [place] [address]- 6008 Jul, [facility] [place] [facility] [address] [id number] [place] [address] 8433 Jun, [facility] [place] [facility] [address] [id number], [place] [address]28 Jun, [facility] [address] [id number] [place] [address]- 5785 Jun, [facility] [place] [facility] [address] [id number] [place] [address]- 5028 Jun, [facility] [place] [facility] [address] [id number] [place] [address]- 1148 Jun, [facility] [place] [facility] [address] [id number] [place] [address]- 4546 Jun, [facility] [place] [facility] [address] [id number] [place] [address]- [address] Jun, [facility] [place] [facility] [address] [id number] [place] [address]- 1237 Jun, [facility] [place] [facility] [address] [id number] [place] [address]- 3885 Jun, [facility] [place] [facility] [address] [id number] [place] [address]- 5115 Jun, [facility] [place] [facility] [address] [id number] [place] [address]- 4320 Jun, [facility] [place] [facility] [address] [id number] [place] [address]- 0717 May, [facility] [place] [facility] [address] [id number], [place] [address] May, [facility] [place] [facility] [address] [id number], [place] [address]- [address] Apr, [facility] [place] [facility] [address] [id number] [place] [address]- 7409 Apr, [facility] [place] [facility] [address] [id number] [place] [address]- 3724 Mar, [facility] [place] [facility] [address] [id number] [place] [address]- 9845 Mar, [facility] [place] [facility] [address] [id number] [place] [address]- 2546 Mar, 2011 [facility] [place] [facility] [address] [id number] [place] [address]- 7096 30 Mar, 2012 [facility] [place] [facility] [address] [id number] [place] [address]- 2546 Mar, 2011 [facility] [place] [facility] [address] [id number] [place] [address]- 2546 Mar, [facility] [place] [facility] [address] [id number] [place] [address]- 2546 Mar, [facility] [place] [facility] [address] [id number] [place] [address]- 2546 Mar, [facility] [place] [facility] [address] [id number] [place] [address]- 6986 Mar, [facility] [place] [facility] [address] [id number] [place] [address]- 9999 Feb, [facility] [place] [facility] [address] [id number] [place] [address]- 9693 Jan, [facility] [place] [facility] [address] [id number] [place] [address]- 0739 Jan, [facility] [place] [facility] [address] [id number] [place] [address]- 4092 Dec, [facility] [place] [facility] [address] [id number] [place] [address]- 2546 Dec, [facility] [place] [facility] [address] [id number] [place] [address]- 2546 Dec, [facility] [place] [facility] [address] [id number] [place] [address]- 2546 Nov, [facility] [place] [facility] [address] [id number] [place] [address]- 2546 Nov, [facility] [place] [facility] [address] [id number] [place] [address]- 2541 Nov, [facility] [address] [id number] [place] [address]- 0484 Nov, [facility] [place] [facility] [address] [id number] [place] [address]- 1256 October, [facility] [place] [facility] [address] [id number] [place] [address]- 9917 October, [facility] [place] [facility] [address] [id number] [place] [address] Sep, [facility] [place] [facility] [address] [id number] [place] [address] Sep, [facility] [place] [facility] [address] [id number] [place] [address] Aug, [facility] [place] [facility] [address] [id number] [place] [address] Jul, [facility] [place] [facility] [address] [id number] [place] [address] Jul, [facility] [place] [facility] [address] [id number] [place] [address] Jul, [facility] [place] [facility] [address] [id number] [place] [address] Jul, [facility] [place] [facility] [address] [id number] [place] [address] Jun, [facility] [place] [facility] [address] [id number][place] [address] May, [facility] [place] [facility] [address] [id number] [place] [address] May, [facility] [place] [facility] [address] [id number] [place] [address] May, [facility] [place] [facility] [address] [id number] [place] [address] May, [facility] [place] [facility] [address] [id number] [place] [address] 08 May, 2011 [facility] [place] [facility] [address] [id number] [place] [address] 14 Apr, 2011 [facility] [place] [facility] [address] [id number] [place] [address] 14 Apr, 2011 [facility] [place] [facility] [address] [id number] [place] [address] 14 Apr, 2011 [facility] [place] [facility] [address] [id number] [place] [address] 07 Apr, 2011 [facility] [place] [facility] [address] [id number] [place] [address] 02 Apr, 2011 [facility] [place] [facility] [address] [id number] [place] [address] 26 Mar, 2011 [facility] [place] [facility] [address] [id number] [place] [address] 25 Mar, 2011 [facility] [place] [facility] [address] [id number] [place] [address] 14 Mar, 2011 [facility] [place] [facility] [address] [id number] [place] [address] 14 Mar, 2011 [facility] [place] [facility] [address] [id number] [place] [address] 13 Mar, 2011 [facility] [place] [facility] [address] [id number] [place] [address] 11 Mar, 2011 [facility] [place] [facility] [address] [id number] [place] [address] 11 Mar, 2011 [facility] [place] [facility] [address] [id number] [place] [address] 11 Mar, 2011 [facility] [place] [facility] [address] [id number] [place] [address] 14 Feb, 2011 [facility] [place] [facility] [address] [id number] [place] [address] May, [facility] [address] [id number] [place] [address] May, [facility] [address] [id number], [place] [address] May, [facility] [address] [id number], [place] [address] Apr, [facility] [address] [id number], [place] [address] Mar, IMMUNIZATIONS No Known Immunizations SOCIAL HISTORY Never Assessed REASON FOR VISIT Med Refill PLAN OF CARE VITAL SIGNS MEDICATIONS Medication Instructions Dosage Frequency Start Date End Date Duration Status Hydrochlorothiazide 25 MG Orally Once a day MUST COME IN FOR BP CHECK take 1/ 2 tablet Active RESULTS No Results PROCEDURES No Known [...]
[2018-08-19] MEDS ORDERED: ONDANSETRON 4 MG (ZOFRAN) ORAL DISSOLVE TAB ONE (09:14)
--- OUTSIDE RECORDS SUMMARY | 2018-08-19 09:14 | XMS REPORT ---
Author Author CURTIS GLENN Organization [facility] Address [address] [place] [address] Care Team Providers Care Bee Raiser Name Role Phone HARSHSALVADOR GLENN Unavailable PROBLEMS Type Condition ICD9-CM Code LYR19-OH Code Onset Dates Condition Status SNOMED Code Problem Posttraumatic stress disorder F43.10 Active 12022964 Problem Generalized anxiety disorder F41.1 Active 31998202 Problem Panic disorder F41.0 Active 707675460 Problem Nausea R11.0 Active 070745579 Problem Anxiety F41.9 Active 75591244 Problem Hot flashes R23.2 Active 664446581 Problem Hematuria R31.9 Active 21470979 Problem Mixed hyperlipidemia E78.2 Active 849636012 Problem Low back pain with sciatica, sciatica laterality unspecified, unspecified back pain laterality, unspecified chronicity M54.40 Active 658652079 Problem Bipolar disorder, current episode mixed, moderate F31.62 Active 754868581 Problem Multiple fractures T07.XXXA Active 144450848 Problem Acute right-sided low back pain with right-sided sciatica M54.41 Active 00822779 Problem Gastroesophageal reflux disease, esophagitis presence not specified K21.9 Active 736189893 Problem Bipolar disorder F31.9 Active 99209069 Problem Primary insomnia F51.01 Active 952550217 Problem Mild intermittent asthma without complication J45.20 Active 383321200 Problem Hidradenitis suppurativa L73.2 Active 79611972 Problem History of IBS Z87.19 Active [id number] Problem Essential hypertension I10 Active 36903061 Problem Genital herpes simplex, unspecified site A60.00 Active 77724645 Problem Vitamin D deficiency E55.9 Active 92925706 Problem Depression F32.9 Active 11098118 Problem Tobacco use Z72.0 Active 297456666 ALLERGIES No Information ENCOUNTERS Encounter Location Date Diagnosis [facility] [address] [facility] [id number] [address] Apr, [facility] [address], [place] [address] 6[address] Mar, [facility] [id number] [place] [address] 08327- 3855 Mar, [facility] [id number] [place] [address] 304300- 6286 Mar, Panic disorder F41.0 [facility] [id number] [place] [address] 86184- 4936 Mar, [facility] [id number] [place] [address] 633386- 1184 Mar, Genital herpes simplex, unspecified site A60.00 and Hidradenitis L73.2 [facility] [id number] [place] [address] 30124- 8531 Feb, Panic disorder F41.0 ; Bipolar disorder, current episode mixed, moderate F31.62 and Generalized anxiety disorder F41.1 [facility] [id number] [place] [address] 29681- 1785 Feb, Panic disorder F41.0 [facility] [id number] [place] [address] 69188- 4266 Jan, Genital herpes simplex, unspecified site A60.00 [facility] [id number] [place] [address] 72810- 2002 Jan, Panic disorder F41.0 [facility] [address] [place] [address] 41664- 3124 Dec, Diaphoresis R61 and Excessive thirst R63.1 [facility] [id number] [place] [address] 37634- 6263 Dec, Panic disorder F41.0 ; Bipolar disorder, current episode mixed, moderate F31.62 and Generalized anxiety disorder F41.1 [facility] [address] [place] [address] 67172- 7845 Dec, Panic disorder F41.0 [facility] [address] [place] [address] 69395- 3505 Nov, Panic disorder F41.0 [facility] [id number] [place] [address] 92444- 5770 Nov, Panic disorder F41.0 ; Generalized anxiety disorder F41.1 and Bipolar disorder, current episode mixed, moderate F31.62 [facility] [id number] [place] [address] 28773- 1007 Nov, Panic disorder F41.0 [facility] [id number] [place] [address] 77228- 9682 Nov, Panic disorder F41.0 [facility] [id number] [place] [address] 48929- 8029 October, Panic disorder F41.0 [facility] [id number] [place] [address] 27992- 4388 October, Panic disorder F41.0 ; Generalized anxiety disorder F41.1 and Bipolar disorder, current episode mixed, moderate F31.62 [facility] [id number] [place] [address] 36026- 9759 October, Panic disorder F41.0 [facility] [id number] [place] [address] 31113- 0848 Sep, Hospital discharge follow-up Z09 ; Concussion without loss of consciousness, initial encounter S06.0X0A and Nausea R11.0 [facility] [address], [place] [address] 7799 Sep, [facility] [id number] [place] [address] 31558- 6190 Sep, Panic disorder F41.0 [facility] [id number] [place] [address] 70587- 6587 Sep, [facility] [id number] [place] [address] 98668- 3353 Sep, Well woman exam with routine gynecological exam Z01.419 ; Multiple fractures T07.XXXA ; Hot flashes R23.2 ; Essential hypertension I10 ; Mixed hyperlipidemia E78.2 ; Genital herpes simplex, unspecified site A60.00 ; Alkaline phosphatase elevation R74.8 ; Dysuria R30.0 ; Vitamin D deficiency E55.9 ; Tobacco use Z72.0 ; High risk sexual behavior Z72.51 and Encounter for immunization Z23 [place] [address] 41299- 1820 Aug, Panic disorder F41.0 ; Generalized anxiety disorder F41.1 and Bipolar disorder, current episode mixed, moderate F31.62 [place] [address] 55342- 9728 Aug, [place] [address] 83021- 2097 Jul, Panic disorder F41.0 ; Generalized anxiety disorder F41.1 and Bipolar disorder, current episode mixed, moderate F31.62 [place] [id number] [place] [address] 16236- 9402 Jul, [place] [address] 59675- 5170 Jul, [place] [id number] [place] [address] 20349- 4994 Jul, Effusion, right knee M25.461 ; Acute pain of right knee M25.561 and Acute pain of left knee M25.562 [place] [address] [place] [address] 74628- 5679 Jun, Bipolar disorder, current episode mixed, moderate F31.62 ; Generalized anxiety disorder F41.1 and Panic disorder F41.0 [place] [id number] [place] [address] 98128- 4116 May, Bipolar disorder, current episode mixed, moderate F31.62 ; Generalized anxiety disorder F41.1 and Panic disorder F41.0 [facility] [id number] [place] [address] 69519- 8152 May, Bipolar disorder, current episode mixed, moderate F31.62 [facility] [id number] [place] [address] 96549- 2557 04 May, 2017 Bipolar disorder, current episode mixed, moderate F31.62 [place] [id number] [place] [address] 31648- 3062 Apr, Bipolar disorder, current episode mixed, moderate F31.62 ; Generalized anxiety disorder F41.1 and Panic disorder F41.0 [place] [id number] [place] [address] 78490- 0689 17 Mar, 2017 [place] [id number] [place] [address] 76623- 6958 Mar, Bipolar disorder, current episode mixed, moderate F31.62 ; Generalized anxiety disorder F41.1 and Panic disorder F41.0 [place] [id number] [place] [address] 78989- 7569 27 Feb, 2017 [place] [id number] [place] [address] 94481- 5030 22 Feb, 2017 Posttraumatic stress disorder F43.10 [place] [id number] [place] [address] 46597- 0142 20 Feb, 2017 Gastroesophageal reflux disease, esophagitis presence not specified K21.9 [facility] [id number] [place] [address] 06267- 8697 13 Feb, 2017 [place] [id number] [place] [address] 47008- 7386 06 Feb, 2017 Knee pain, right anterior M25.561 [place] [id number] [place] [address] 21666- 2663 05 Feb, 2017 HSV (herpes simplex virus) infection B00.9 [place] [id number] [place] [address] 30624- 0290 Feb, [facility] [address] [place] [address] 91909- 7027 Jan, [facility] [id number] [place] [address] 65558- 8817 Jan, Posttraumatic stress disorder F43.10 [facility] [id number] [place] [address] 00276- 2312 Jan, Foot pain, left M79.672 [facility] [id number] [place] [address] 04987- 7319 Jan, [facility] [id number] [place] [address] 81178- 2841 Jan, Lumbar radiculopathy, acute M54.16 ; Muscle spasm of back M62.830 and Right hip pain M25.551 [facility] [id number] [place] [address] 05688- 6571 Jan, Lumbar radiculopathy, acute M54.16 [facility] [id number] [place] [address] 76329- 1158 Jan, [facility] [id number] [place] [address] 01259- 5028 Jan, [facility] [id number] [place] [address] 74586- 8432 Dec, Lumbar radiculopathy, acute M54.16 ; Acute renal insufficiency N28.9 and Muscle spasm of back M62.830 [facility] [address], [place] [address]- 0360 Dec, [facility] [id number] [place] [address] 94697- 3848 Dec, [facility] [address], [place] [address]- 2505 Dec, [facility] [id number] [address] -0876 Dec, Low back pain with sciatica, sciatica laterality unspecified, unspecified back pain laterality, unspecified chronicity M54.40 and Acute right-sided low back pain with right-sided sciatica M54.41 [facility] [address], [place] [address]- 8459 Dec, Posttraumatic stress disorder F43.10 [facility] [id number] [place] [address] 98933- 3735 Dec, [facility] [id number] [place] [address] 01517- 0352 Dec, Pain in right thigh M79.651 and Acute right-sided low back pain without sciatica M54.5 [facility] [address] [place] [address] 91935- 8836 Dec, Posttraumatic stress disorder F43.10 and Major depressive disorder, recurrent episode with anxious distress F33.9 [facility] [address], [place] [address] -7652 Dec, [facility] [id number] [place] [address] 29652- 9196 Nov, [facility] [address], [place] [address]- 5041 October, [facility] [address], [place] [address]- 7684 October, [facility] [address], [place] [address]- 7879 October, Knee pain, right anterior M25.561 [facility] [id number] [place] [address] 28506- 7923 October, Knee pain, right anterior M25.561 [facility] [address], [place] [address]- 4353 October, [facility] [id number] [address]- 3840 October, [facility] [id number] [place] [address] 14585- 4419 October, [facility] [address] [place] [address] 98880 -0906 Sep, [facility] [id number] [place] [address] 55589- 7388 Sep, [facility] [id number] [place] [address] 03815- 4075 Sep, Essential hypertension I10 [facility] [id number] [place] [address] 40107- 9255 Sep, Essential hypertension I10 [facility] [id number] [place] [address] 82156- 5060 Sep, [facility] [id number] [place] [address] 95630- 9857 Sep, Posttraumatic stress disorder F43.10 and Major depressive disorder, recurrent episode with anxious distress F33.9 [facility] [id number] [place] [address] 32734- 3536 Sep, Multiple fractures T14.8 ; Alkaline phosphatase elevation R74.8 and Vitamin D deficiency E55.9 [facility] [id number] [place] [address] 98424- 3234 Sep, [facility] [id number] [place] [address] 52408- 8293 Sep, Elevated serum creatinine R79.89 ; Fracture of foot, left, closed, initial encounter S92.902A and Alkaline phosphatase elevation R74.8 [facility] [id number] [place] [address] 05093- 6548 Sep, Elevated serum creatinine R79.89 and Essential hypertension I10 [facility] [id number] [place] [address] 25599- 9744 Sep, [facility] [id number] [place] [address] 45135- 7763 Aug, Gastroesophageal reflux disease, esophagitis presence not specified K21.9 [facility] [id number] [place] [address] 84928- 4386 Aug, Essential hypertension I10 ; Fracture of foot, left, closed , initial encounter S92.902A and Alkaline phosphatase elevation R74.8 [place] [address] 48971- 7241 Jul, Genital herpes simplex, unspecified site A60.00 [place] [address] 69381- 1390 Jul, Essential hypertension I10 [place] [address] 41320- 5921 Jun, Cough R05 and Wheezing R06.2 [place] [address] 68716- 6132 Jun, Essential hypertension I10 [place] [address] 65787- 8530 May, Essential hypertension I10 [place] [address] 78442- 3401 May, Posttraumatic stress disorder F43.10 and Major depressive disorder, recurrent episode with anxious distress F33.9 [place] [id number] [place] [address] 15701- 4126 Apr, [facility] [id number] [place] [address] 40857- 7178 Apr, [facility] [address] 23022- 5665 Apr, [facility] [id number] [place] [address] 27092- 4062 Mar, [facility] [address] 03097- 9133 Feb, [facility] [address] 81772- 1755 Jan, [place] [address] 10909- 9707 Jan, Essential hypertension I10 ; Mixed hyperlipidemia E78.2 ; Gastroesophageal reflux disease, esophagitis presence not specified K21.9 ; Mild intermittent asthma without complication J45.20 ; Hidradenitis suppurativa L73.2 ; Migraine without status migrainosus, not intractable, unspecified migraine type G43.909 ; Genital herpes simplex, unspecified site A60.00 and Closed traumatic minimally displaced fracture of metatarsal bone of left foot S92.302A [facility] [place] [address] 03237 -7898 Jan, Localized edema R60.0 [place] [address] 37633- 7387 Dec, [place] [address] 03368- 7332 Dec, [place] [address] 30528- 0328 Dec, [facility] [address] 55068 -6397 Dec, Cough R05 ; Tobacco dependence F17.200 and Costochondritis , acute M94.0 [place] [address] 92250- 7221 Dec, Major depression, recurrent F33.9 ; Bipolar disorder, unspecified F31.9 and Posttraumatic stress disorder F43.10 [place] [address] 16425- 5953 Nov, [place] [address] 01698- 4747 Nov, [place] [address] 10028- 8737 October, [facility] [address], [place] [address] -5919 October, Acute upper respiratory infection, unspecified J06.9 [facility] [address], [place] [address]- 8741 October, [facility] [address] [place] [address] 84798- 9109 Sep, Bipolar affective disorder, remission status unspecified F31.9 and Post-traumatic stress disorder F43.10 [facility] [address] [place] [address] 20030- 0631 Sep, Bipolar disorder, unspecified F31.9 ; Posttraumatic stress disorder F43.10 and Major depression, recurrent F33.9 [facility] [address] [place] [address] 51344- 8193 Aug, Edema R60.9 ; Fatigue R53.83 and Polydipsia R63.1 [facility] [address], [place] [address]- 7403 Aug, [facility] [id number] [place] [address] 65800- 4237 Aug, [facility] [address], [place] [address]- 4788 Jul, [facility] [address], [place] [address]- 7268 Jul, [facility] [address], [place] [address]- 8221 Jun, [facility] [id number] [place] [address] 62638- 5791 Jun, [facility] [address], [place] [address]- 1662 Jun, [facility] [id number] [place] [address] 47489- 7405 Jun, [facility] [address] [place] [address] 19462- 5278 May, Mixed hyperlipidemia E78.2 [place] [id number] [place] [address] 20756- 1619 May, Well woman exam Z01.419 ; History of herpes simplex infection Z86.19 ; Papanicolaou smear Z12.4 ; History of depression Z86.59 ; History of anxiety Z86.59 ; Lipoma of other specified sites D17.79 ; Hidradenitis suppurativa L73.2 ; Routine screening for STI (sexually transmitted infection) Z11.3 and Tobacco use Z72.0 [place] [address] [place] [address] 62350- 0080 May, Hematuria R31.9 ; Essential hypertension I10 ; Pure hypercholesterolemia E78.0 and Hidradenitis L73.2 [place] [address] [place] [address] 86026- 0341 May, Upper respiratory symptom R09.89 and Allergic rhinitis J30.9 [place] [address] [place] [address] 55798- 8848 May, [place] [address] [place] [address] 39471- 0659 May, [place] [address] [place] [address] 77435- 4354 May, Bipolar disorder, unspecified F31.9 ; Posttraumatic stress disorder F43.10 and Major depression, recurrent F33.9 [place] [address] [place] [address] 68095- 1963 May, [place] [address] [place] [address] 87098- 7530 May, [place] [address] [place] [address] 32739- 1350 Apr, [place] [address], [place] [address]- 7108 Apr, [facility] [address] [place] [address] 83829- 1833 Mar, [facility] [address], [place] [address]- 6016 Mar, [facility] [address] [place] [id number] [place] [address] 44073- 2972 Mar, [facility] [id number] [place] [address] 32994- 2102 18 Feb, 2015 Major depressive disorder, recurrent episode, moderate 296.32 and Post traumatic stress disorder (PTSD) 309.81 [facility] [address] [place] [id number] [place] [address] 69076- 2682 Feb, [facility] [id number] [place] [address] 31229- 3001 08 Feb, 2015 [facility] [id number] [place] [address] 11923- 5841 Jan, Cough 786.2 [facility] [address] [address] [place] [address] 984991- 2464 Jan, Depression, major, recurrent, moderate 296.32 and Post traumatic stress disorder (PTSD) 309.81 [facility] [address], [place] [address]- 3566 Jan, [facility] [address] [place] [address] 546764- 4336 Dec, [facility] [address] [place] [id number] 2437 Dec, Generalized anxiety disorder 300.02 and Depression, major, recurrent, moderate 296.32 [facility] [address] 7712 Dec, [facility] [address] [place] [address] 39307240- 5131 Dec, High risk medication use V58.69 [facility] [address] [facility] [id number], [place] [address]- 7772 Dec, High risk medication use V58.69 [facility] [address] [facility] [id number]- 4438 Dec, [facility] [address] [facility] [id number], [place] [address]- 5687 Nov, Generalized anxiety disorder 300.02 and Major depressive disorder, recurrent episode, moderate 296.32 [facility] [address] [id number] [address] Nov, Dental examination V72.2 [facility] [address] [id number] [id number] Nov, Dental examination V72.2 [facility] [address] [place] [id number], [place] [address]- 6031 Nov, [facility] [address] [id number] Nov, Dental examination V72.2 [facility] [address] [id number] Nov, Dental examination V72.2 [facility] [address] [id number], [place] [address] October, Major depressive disorder, recurrent episode, moderate 296.32 and Generalized anxiety disorder 300.02 [facility] [address] [facility] [id number], [place] [address] October, [facility] [address] [facility] [id number], [place] [address] October, [facility] [address] [facility] [id number] [address] October, [facility] [address] [facility] [id number], [place] [address] Sep, [facility] [address] [id number] [place] [address] 13 Sep, 2014 [facility] [place] [facility] [address] [id number] [place] [address] 17 Aug, 2014 [facility] [place] [facility] [address] [id number] [place] [address] 17 Aug, 2014 [facility] [place] [facility] [address] [id number] [place] [address] 13 Aug, 2014 [facility] [place] [facility] [address] [id number] [place] [address] 13 Aug, 2014 [facility] [place] [facility] [address] [id number] [place] [address] 10 Aug, 2014 [facility] [place] [facility] [address] [facility] [id number] [place] [address] Aug, [facility] [place] [facility] [address] [facility] [id number] [place] [address] Aug, 2014 [facility] [place] [facility] [address] [facility] [id number] [place] [address]61 16 Jul, 2014 [facility] [place] [facility] [address] [id number] [place] [address] 2489 16 Jul, 2014 [facility] [place] [facility] [address] [facility] [id number] [place] [address]- 8578 16 Jul, 2014 [facility] [place] [facility] [address] [facility] [id number] [place] [address]- 2325 16 Jul, 2014 [facility] [place] [facility] [address] [facility] [id number] [place] [address]- 0058 06 Jul, 2014 [facility] [place] [facility] [address] [id number] [place] [address]- 6573 04 Jul, 2014 [facility] [place] [facility] [address] [facility] [id number] [place] [address]- 4316 04 Jul, 2014 [facility] [place] [facility] [address] [facility] [id number] [place] [address]- 5107 Jul, [facility] [place] [facility] [address] [id number] [place] [address]- 0111 Jul, [facility] [place] [facility] [address] [id number] [place] [address]- 7728 Jun, [facility] [place] [facility] [address] [facility] [id number] [place] [address]- 8706 Jun, [facility] [place] [facility] [address] [id number] [place] [address]- 9326 Jun, [facility] [place] [facility] [address] [id number] [place] [address]- 3706 Jun, [facility] [place] [facility] [address] [id number] [place] [address]- 4440 Jun, [facility] [place] [facility] [address] [id number] [place] [address]- 9172 Jun, [facility] [place] [facility] [address] [id number] [place] [address]- 9769 Jun, [facility] [place] [facility] [address] [id number] [place] [address]- 1909 Jun, [facility] [place] [facility] [address] [id number] [place] [address]- 8327 Jun, [facility] [place] [facility] [address] [id number] [place] [address]- 5071 Jun, [facility] [place] [facility] [address] [id number], [place] [address] 6[address] Jun, [facility] [place] [facility] [address] [id number] [place] [address]- 6299 Jun, [facility] [place] [facility] [address] [id number] [place] [address]- 2257 Jun, [facility] [place] [facility] [address] [id number] [place] [address]- 0744 Jun, [facility] [place] [facility] [address] [id number] [place] [address]- 0669 Jun, [facility] [address] [id number] [place] [address]- 9458 Jun, [facility] [address] [id number] [place] [address]- 5245 Jun, [facility] [address] [id number] [place] [address]- 9656 Jun, [facility] [address] [id number] [place] [address]- 7114 Jun, [facility] [address] [id number] [place] [address]- 6766 Jun, [facility] [address] [id number] [place] [address]- 0875 Jun, [facility] [address] [id number] [place] [address]- 8574 Jun, [facility] [address] [id number] [place] [address]- 9545 Jun, [facility] [address] [id number] [place] [address]- 5494 Jun, [facility] [address] [id number] [place] [address]- 6128 Jun, [facility] [address] [id number] [place] [address]- 2208 May, [facility] [place] [facility] [address] [id number] [place] [address]- 1167 May, [facility] [place] [facility] [address] [id number] [place] [address]- 7839 May, [facility] [place] [facility] [address] [id number] [place] [address]- 7292 May, [facility] [place] [facility] [address] [id number] [place] [address]- 8752 May, [facility] [place] [facility] [address] [id number] [place] May, [facility] [place] [facility] [address] [id number] [place] [address] May, [facility] [place] [facility] [address] [id number] [place] [address]- 3984 May, [facility] [place] [facility] [address] [id number] [place] [address]- 1540 May, [facility] [place] [facility] [address] [id number] [place] 9432 May, [facility] [place] [facility] [address] [id number] [place] [address]- 7244 May, [facility] [place] [facility] [address] [id number] [place] [address]- 3380 May, [facility] [place] [facility] [address] [id number] [place] [address]- 1560 May, [facility] [place] [facility] [address] [id number] [place] [address]- 2192 May, [facility] [place] [facility] [address] [id number] [place] [address]- 0718 May, [facility] [place] [facility] [address] [id number] [place] [address] May, [facility] [place] [facility] [address] [id number] [place] [address]- 3108 May, [facility] [place] [facility] [address] [id number] [place] [address]- 7068 May, [facility] [place] [facility] [address] [id number] [place] [address]- 2231 Apr, [facility] [place] [facility] [address] [id number] [place] [address]- 9573 Apr, [facility] [place] [facility] [address] [id number], [place] [address]- 1813 Apr, [facility] [place] [facility] [address] [id number] [place] [address]- 3963 Apr, [facility] [place] [facility] [address] [id number] [place] [address]- 5788 Apr, [facility] [place] [facility] [address] [id number] [place] [address]- 0027 Apr, [facility] [place] [facility] [address] [id number] [place] [address]- 5430 Apr, [facility] [place] [facility] [address] [id number] [place] [address]- 4354 Apr, [facility] [place] [facility] [address] [id number] [place] [address]- 9283 Mar, [facility] [place] [facility] [address] [id number] [place] [address]- 8028 Mar, [facility] [place] [facility] [address] [id number] [place] [address]- 8853 Feb, [facility] [place] [facility] [address] [id number] [place] [address]- 5779 Feb, [facility] [place] [facility] [address] [id number] [place] [address]- 9707 Feb, [facility] [place] [facility] [address] [id number] [place] [address]- 6096 12 Feb, 2014 [facility] [place] [facility] [address] [id number], [place] [address]- 2548 12 Feb, 2014 [facility] [place] [facility] [address] [id number] [place] [address]- 2545 12 Feb, 2014 [facility] [place] [facility] [address] [id number] [place] [address]- 2424 10 Feb, 2014 [facility] [place] [facility] [address] [id number] [place] [address]- 254 10 Feb, 2014 [facility] [place] [facility] [address] [id number] [place] [address]- 0316 Feb, [facility] [place] [facility] [address] [id number] [place] [address]- 2473 Feb, [facility] [place] [facility] [address] [id number] [place] [address]- 2784 Jan, [facility] [place] [facility] [address] [id number] [place] [address]- 1755 Jan, [facility] [place] [facility] [address] [id number] [place] [address]- 6332 Jan, [facility] [place] [facility] [address] [id number] [place] [address]- 3424 Jan, [facility] [place] [facility] [address] [id number] [place] [address]- 2463 Jan, [facility] [place] [facility] [address] [id number] [place] [address]- 0798 Jan, [facility] [place] [facility] [address] [id number] [place] [address]- 0881 Jan, [facility] [place] [facility] [address] [id number] [place] [address]- 6539 Jan, [facility] [place] [facility] [address] [id number] [place] [address]- 0095 Jan, [facility] [place] [facility] [address] [id number] [place] [address]- 6240 Jan, [facility] [place] [facility] [address] [id number] [place] [address]- 9312 Jan, [facility] [place] [facility] [address] [id number] [place] [address]- 6401 Jan, [facility] [place] [facility] [address] [id number] [place] [address]- 3662 Jan, [facility] [place] [facility] [address] [id number] [place] [address]- 1637 Dec, [facility] [place] [facility] [address] [id number] [place] [address]- 6446 Dec, [facility] [place] [facility] [address] [id number] [place] [address]- 4482 Dec, [facility] [place] [facility] [address] [id number] [place] [address]- 7843 Dec, [facility] [place] [facility] [address] [id number] [place] [address]- 6535 Dec, [facility] [place] [facility] [address] [id number] [place] [address]- 3863 Dec, [facility] [place] [facility] [address] [id number] [place] [address]- 0934 Dec, [facility] [place] [facility] [address] [id number] [place] [address]- 5049 Dec, [facility] [place] [facility] [address] [id number] [place] [address]- 0683 Dec, [facility] [place] [facility] [address] [id number] [place] [address]- 1244 Dec, [facility] [place] [facility] [address] [id number] [place] [address]- 0229 Dec, [facility] [place] [facility] [address] [id number] [place] [address]- 3032 Dec, [facility] [place] [facility] [address] [id number] [place] [address]- 3020 Dec, [facility] [place] [facility] [address] [id number] [place] [address]- 8239 Dec, [facility] [place] [facility] [address] [id number] [place] [address]- 9563 Nov, [facility] [place] [facility] [address] [id number] [place] [address]- 7204 Nov, [facility] [place] [facility] [address] [id number] [place] [address]- 5676 Nov, [facility] [place] [facility] [address] [id number] [place] [address]- 4383 Nov, [facility] [place] [facility] [address] [id number] [place] [address]- 1984 Nov, [facility] [place] [facility] [address] [id number] [place] [address]- 2373 Nov, [facility] [place] [facility] [address] [id number] [place] [address]- 1129 Nov, [facility] [place] [facility] [address] [id number] [place] [address]- 4095 Nov, [facility] [place] [facility] [address] [id number] [place] [address]- 8818 October, [facility] [place] [facility] [address] [id number] [place] [address]- 1433 October, [facility] [place] [facility] [address] [id number] [place] [address]- 8377 October, [facility] [place] [facility] [address] [id number] [place] [address]- 1769 October, [facility] [place] [facility] [address] [id number] [place] [address]- 8976 October, [facility] [place] [facility] [address] [id number] [place] [address]- 3066 October, [facility] [place] [facility] [address] [id number] [place] [address]- 1603 October, [facility] [place] [facility] [address] [id number] [place] [address]- 2835 October, [facility] [place] [facility] [address] [id number] [place] [address]- 5729 October, [facility] [place] [facility] [address] [id number] [place] 6427 October, [facility] [place] [facility] [address] [id number] [place] [address]- 3412 October, [facility] [place] [facility] [address] [id number] [place] [address]- 8431 October, [facility] [place] [facility] [address] [id number] [place] [address]- 6642 October, [facility] [place] [facility] [address] [id number] [place] [address]- 4489 October, [facility] [place] [facility] [address] [id number] [place] [address]- 8989 October, [facility] [place] [facility] [address] [id number] [place] [address]- 0065 October, [facility] [place] [facility] [address] [id number] [place] [address]- 8429 Sep, [facility] [place] [facility] [address] [id number] [place] [address]- 9857 Sep, [facility] [place] [facility] [address] [id number] [place] [address]- 8012 Sep, [facility] [place] [facility] [address] [id number] [place] [address]- 1417 Sep, [facility] [place] [facility] [address] [id number] [place] [address]- 1680 Sep, [facility] [place] [facility] [address] [id number] [place] [address]- 3527 Sep, [facility] [place] [facility] [address] [id number] [place] [address]- 4456 Sep, [facility] [place] [facility] [address] [id number] [place] [address]- 7795 Sep, [facility] [place] [facility] [address] [id number] [place] [address]- 9980 Sep, [facility] [place] [facility] [address] [id number] [place] [address]- 4792 Sep, [facility] [place] [facility] [address] [id number] [place] [address]- 8409 Sep, [facility] [place] [facility] [address] [id number] [place] [address]- 5987 Sep, [facility] [place] [facility] [address] [id number] [place] [address]- 8100 Sep, [facility] [place] [facility] [address] [id number] [place] [address]- 0406 Sep, [facility] [place] [facility] [address] [id number] [place] [address]- 6150 Sep, [facility] [place] [facility] [address] [id number] [place] [address]- 9452 Sep, [facility] [place] [facility] [address] [id number] [place] [address]- 1092 Sep, [facility] [place] [facility] [address] [id number] [place] [address]- 7637 Sep, [facility] [place] [facility] [address] [id number] [place] [address]- 3098 Sep, [facility] [place] [facility] [address] [id number] [place] [address]- 3351 Aug, [facility] [place] [facility] [address] [id number] [place] [address]- 6989 Aug, [facility] [place] [facility] [address] [id number] [place] [address]- 2459 Aug, [facility] [place] [facility] [address] [id number] [place] [address]- 5736 Aug, [facility] [place] [facility] [address] [id number] [place] [address]- 5333 Jul, [facility] [place] [facility] [address] [id number] [place] [address]- 4879 Jul, [facility] [place] [facility] [address] [id number] [place] [address]- 1289 Jul, [facility] [place] [facility] [address] [id number] [place] [address]- 8121 Jul, [facility] [place] [facility] [address] [id number] [place] [address]- 5116 Jul, [facility] [place] [facility] [address] [id number] [place] [address]- 8280 Jul, [facility] [place] [facility] [address] [id number] [place] [address]- 6874 Jul, [facility] [place] [facility] [address] [id number] [place] [address]- 5359 Jul, [facility] [place] [facility] [address] [facility] [id number] [place] [address]- 0290 Jul, [facility] [place] [facility] [address] [id number] [place] [address]- 6828 Jul, [facility] [place] [facility] [address] [id number] [place] [address]- 2879 Jul, [facility] [place] [facility] [address] [facility] [id number] [place] [address]- 1313 Jul, [facility] [place] [facility] [address] [facility] [id number] [place] [address]- 5468 Jun, [facility] [place] [facility] [address] [id number], [place] [address]- 6568 Jun, [facility] [place] [facility] [address] [id number] [place] [address]- 9306 Jun, [facility] [place] [facility] [address] [id number] [place] [address]- 0642 Jun, [facility] [place] [facility] [address] [id number] [place] [address]- 6312 Jun, [facility] [place] [facility] [address] [id number], [place] [address]- 2630 16 Jun, 2013 [facility] [address] [id number] [place] [address]- 7059 May, [facility] [place] [facility] [address] [id number], [place] [address]- 2834 May, [facility] [place] [facility] [address] [id number] [place] [address]- 2271 Apr, [facility] [place] [facility] [address] [id number], [place] [address]- 9879 Apr, [facility] [place] [facility] [address] [id number] [place] [address]- 3699 Apr, [facility] [place] [facility] [address] [id number] [place] [address]- 9488 19 Apr, 2013 [facility] [address] [id number], [place] [address]- 3198 18 Apr, 2013 [facility] [place] [facility] [address] [id number] [place] [address]- 2410 18 Apr, 2013 [facility] [place] [facility] [address] [id number], [place] [address]- 9735 17 Apr, 2013 [facility] [place] [facility] [address] [id number], [place] [address]- 6745 15 Apr, 2013 [facility] [place] [facility] [address] [id number], [place] [address]- 9902 15 Apr, 2013 [facility] [place] [facility] [address] [id number], [place] [address]- 0772 15 Apr, 2013 [facility] [place] [facility] [address] [id number], [place] [address]- 7259 15 Apr, 2013 [facility] [place] [facility] [address] [id number], [place] [address]- 8970 13 Apr, 2013 [facility] [place] [facility] [address] [id number], [place] [address]- 1726 13 Apr, 2013 [facility] [place] [facility] [address] [id number] [place] [address]- 3920 31 Mar, 2012 [facility] [place] [facility] [address] [id number] [place] [address]- 6352 31 Mar, 2012 [facility] [place] [facility] [address] [id number] [place] [address]- 5347 25 Mar, 2012 [facility] [place] [facility] [address] [id number] [place] [address]- 9848 25 Mar, 2012 [facility] [place] [facility] [address] [id number] [place] [address]- 2759 17 Mar, 2012 [facility] [place] [facility] [address] [id number] [place] [address]- 6646 17 Mar, 2012 [facility] [place] [facility] [address] [id number] [place] [address]- 1840 14 Mar, 2012 [facility] [place] [facility] [address] [id number] [place] [address]- 0889 14 Mar, 2012 [facility] [place] [facility] [address] [id number] [place] [address]- 9367 11 Mar, 2013 [facility] [place] [facility] [address] [id number] [place] [address]- 8978 11 Mar, 2012 [facility] [place] [facility] [address] [id number] [place] [address]- 6991 02 Mar, 2013 [facility] [place] [facility] [address] [id number] [place] [address]- 4367 30 Feb, 2012 [facility] [place] [facility] [address] [id number] [place] [address]47 28 Feb, 2012 [facility] [place] [facility] [address] [id number] [place] [address] 27 Feb, 2012 [facility] [place] [facility] [address] [id number] [place] [address]44 27 Feb, 2012 [facility] [place] [facility] [address] [id number] [place] [address] Feb, [facility] [address] [id number] [place] [address] Feb, [facility] [place] [facility] [address] [id number] [place] [address] Jan, [facility] [place] [facility] [address] [id number] [place] [address] Jan, [facility] [place] [facility] [address] [id number] [place] [address] Dec, [facility] [address] [id number] [place] [address]261 Dec, [facility] [place] [facility] [address] [id number] [place] [address] 96[address] Dec, [facility] [place] [facility] [address] [id number] [place] [address] 8481 Dec, [facility] [place] [facility] [address] [id number] [place] [address] 2697 Nov, [facility] [place] [facility] [address] [id number] [place] [address] Nov, [facility] [place] [facility] [address] [id number] [place] [address] 69[address] Nov, [facility] [place] [facility] [address] [id number] [place] [address] October, [facility] [place] [facility] [address] [id number] [place] [address]396 October, [facility] [place] [facility] [address] [id number] [place] [address]235 October, [facility] [place] [facility] [address] [id number] [place] [address] 244[address] October, [facility] [place] [facility] [address] [id number] [place] [address] 5944 October, [facility] [place] [facility] [address] [id number] [place] [address]244 11 Sep, 2012 [facility] [address] [id number] [place] [address] 8709 Sep, [facility] [address] [id number] [place] [address] 9466 26 Aug, 2012 [facility] [address] [id number] [place] [address] 6[address] 15 Aug, 2012 [facility] [place] [facility] [address] [id number] [place] [address] 6349 12 Aug, 2012 [facility] [address] [id number] [place] [address] 8778 08 Aug, 2012 [facility] [place] [facility] [address] [id number] [place] [address] 6106 Aug, [facility] [address] [id number] [place] [address] 7700 18 Jul, 2012 [facility] [address] [id number] [place] [address] 2750 Jul, [facility] [address] [id number] [place] [address] 6[address] 06 Jul, 2012 [facility] [address] [id number] [place] [address] 7[address] Jul, [facility] [address] [id number] [place] [address] 486[address] Jun, [facility] [place] [facility] [address] [id number] [place] [address] 0315 29 Jun, 2012 [facility] [place] [facility] [address] [id number] [place] [address] 3057 Jun, [facility] [place] [facility] [address] [id number] [place] [address] 0156 Jun, [facility] [place] [facility] [address] [id number] [place] [address] 5641 Jun, [facility] [place] [facility] [address] [id number] [place] [address] 6649 10 Jun, 2012 [facility] [place] [facility] [address] [id number] [place] [address] 5521 10 Jun, 2012 [facility] [place] [facility] [address] [id number] [place] [address]- 3359 09 Jun, 2012 [facility] [place] [facility] [address] [id number] [place] [address] 8290 Jun, [facility] [place] [facility] [address] [id number] [place] [address] 0420 Jun, [facility] [place] [facility] [address] [id number] [place] [address]- 0764 Jun, [facility] [place] [facility] [address] [id number] [place] [address] 7214 May, [facility] [place] [facility] [address] [id number] [place] [address] 6635 May, [facility] [place] [facility] [address] [id number] [place] [address]- 7056 Apr, [facility] [place] [facility] [address] [id number] [place] [address]- 0480 Apr, [facility] [place] [facility] [address] [id number] [place] [address]- 2575 Mar, [facility] [place] [facility] [address] [id number], [place] [address] 31 Mar, 2012 [facility] [place] [facility] [address] [id number] [place] [address] 0702 Mar, [facility] [place] [facility] [address] [id number] [place] [address]- 9187 30 Mar, 2012 [facility] [place] [facility] [address] [id number] [place] [address]- 5940 17 Mar, 2012 [facility] [place] [facility] [address] [id number], [place] [address] Mar, [facility] [place] [facility] [address] [id number] [place] [address]- 7712 Mar, [facility] [place] [facility] [address] [id number] [place] [address]- 4899 Mar, [facility] [place] [facility] [address] [id number] [place] [address] 0704 Mar, [facility] [place] [facility] [address] [id number] [place] [address] 9004 Feb, [facility] [place] [facility] [address] [id number] [place] [address]- 1382 Jan, [facility] [place] [facility] [address] [id number] [place] [address] 4538 Jan, [facility] [place] [facility] [address] [id number] [place] [address]- 5249 Dec, [facility] [place] [facility] [address] [id number] [place] [address]- 1784 Dec, [facility] [place] [facility] [address] [id number] [place] [address]- 5232 Dec, [facility] [place] [facility] [address] [id number] [place] [address]- 5178 Nov, [facility] [place] [facility] [address] [id number] [place] [address]- 9055 Nov, [facility] [place] [facility] [address] [id number] [place] [address]- 2058 Nov, [facility] [place] [facility] [address] [id number] [place] [address]- 1325 Nov, [facility] [place] [facility] [address] [id number] [place] [address] 3551 October, [facility] [place] [facility] [address] [id number] [place] [address]- 9055 October, [facility] [place] [facility] [address] [id number] [place] [address]- 5931 Sep, [facility] [address] [id number] [place] [address]- 5098 Sep, [facility] [place] [facility] [address] [id number] [place] [address]- 9736 Aug, [facility] [place] [facility] [address] [id number] [place] [address]- 9076 Jul, [facility] [place] [facility] [address] [id number] [place] [address]- 7951 Jul, [facility] [place] [facility] [address] [id number] [place] [address]- 3275 Jul, [facility] [place] [facility] [address] [id number] [place] [address]- 0402 Jul, [facility] [place] [facility] [address] [id number] [place] [address]- 2719 Jun, [facility] [place] [facility] [address] [id number] [place] [address]- 3456 15 May, 2011 [facility] [place] [facility] [address] [id number] [place] [address]- 0123 15 May, 2011 [facility] [facility] [address] [id number] [place] [address] 15 May, 2011 [facility] [address] [id number] [place] [address] 13 May, 2011 [facility] [place] [facility] [address] [id number] [place] [address] 08 May, 2011 [facility] [place] [facility] [address] [id number] [place] [address] 14 Apr, 2011 [facility] [facility] [address] [id number] [place] [address] 14 Apr, 2011 [facility] [place] [facility] [address] [id number] [place] [address] 14 Apr, 2011 [facility] [place] [facility] [address] [id number] [place] [address] 07 Apr, 2011 [facility] [place] [facility] [address] [id number] [place] [address] 02 Apr, 2011 [facility] [place] [facility] [address] [id number] [id number] [address] 26 Mar, 2011 [facility] [place] [facility] [address] [id number] [place] [address] 25 Mar, 2011 [facility] [place] [facility] [address] [id number] [place] [address] 14 Mar, 2011 [facility] [place] [facility] [address] [id number] [place] [address] 14 Mar, 2011 [facility] [place] [facility] [address] [id number] [place] [address] 13 Mar, 2011 [facility] [place] [facility] [address] [id number] [place] [address] 11 Mar, 2011 [facility] [place] [facility] [address] [id number] [place] [address] 11 Mar, 2011 [facility] [place] [facility] [address] [id number] [place] [address] 11 Mar, 2011 [facility] [place] [facility] [address] [id number], [place] [address] 14 Feb, 2011 [facility] [place] [facility] [address] [id number], [place] [address] 16 May, 2010 [facility] [place] [facility] [address] [id number] [place] [address] 16 May, 2010 [facility] [place] [facility] [address] [id number] [place] [address] 07 May, 2010 [facility] [place] [facility] [address] [id number] [place] [address] Apr, [facility] [place] [facility] [address] [facility] [id number] [place] [address] Mar, IMMUNIZATIONS No Known Immunizations SOCIAL HISTORY Never Assessed REASON FOR VISIT xanax taper PLAN OF CARE VITAL SIGNS MEDICATIONS Medication Instructions Dosage Frequency Start Date End Date Duration Status Xanax 0.25 MG Orally daily 3 tablet 24h Mar, 30 days Active Alprazolam 2 MG Orally daily, part of taper 1 tablet 30 days Active RESULTS No Results PROCEDURES [...]
--- OUTSIDE RECORDS SUMMARY | 2018-08-19 09:15 | XMS REPORT ---
Author Author CURTIS GLENN Organization [facility] Address [address] [place] [address] Care Team Providers Care Hot Dog Vendor Name Role Phone HARSHSALVADOR GLENN Unavailable PROBLEMS Type Condition ICD9-CM Code DGI37-GK Code Onset Dates Condition Status SNOMED Code Problem Posttraumatic stress disorder F43.10 Active 35731960 Problem Generalized anxiety disorder F41.1 Active 15411358 Problem Panic disorder F41.0 Active 852594385 Problem Nausea R11.0 Active 050004560 Problem Anxiety F41.9 Active 69747322 Problem Hot flashes R23.2 Active 052139944 Problem Hematuria R31.9 Active 20725449 Problem Mixed hyperlipidemia E78.2 Active 666677320 Problem Low back pain with sciatica, sciatica laterality unspecified, unspecified back pain laterality, unspecified chronicity M54.40 Active 907194274 Problem Bipolar disorder, current episode mixed, moderate F31.62 Active 715013636 Problem Multiple fractures T07.XXXA Active 514909515 Problem Acute right-sided low back pain with right-sided sciatica M54.41 Active 77942765 Problem Gastroesophageal reflux disease, esophagitis presence not specified K21.9 Active 581222999 Problem Bipolar disorder F31.9 Active 10572391 Problem Primary insomnia F51.01 Active 807021908 Problem Mild intermittent asthma without complication J45.20 Active 576565240 Problem Hidradenitis suppurativa L73.2 Active 81298636 Problem History of IBS Z87.19 Active 49105273620222 Problem Essential hypertension I10 Active 63347086 Problem Genital herpes simplex, unspecified site A60.00 Active 18960164 Problem Vitamin D deficiency E55.9 Active 15559042 Problem Depression F32.9 Active 72683502 Problem Tobacco use Z72.0 Active 462941065 ALLERGIES No Information ENCOUNTERS Encounter Location Date Diagnosis [facility] [address] [facility] [id number] [address] Mar, [facility] [id number] [place] [address] 26868- 2839 Feb, Panic disorder F41.0 ; Bipolar disorder, current episode mixed, moderate F31.62 and Generalized anxiety disorder F41.1 [facility] [id number] [place] [address] 44373- 6772 Feb, Panic disorder F41.0 [facility] [id number] [place] [address] 85536- 4083 Jan, Genital herpes simplex, unspecified site A60.00 [place] [id number] [place] [address] 16818- 6403 Jan, Panic disorder F41.0 [facility] [id number] [place] [address] 96735- 8771 Dec, Diaphoresis R61 and Excessive thirst R63.1 [facility] [id number] [place] [address] 84973- 1428 Dec, Panic disorder F41.0 ; Bipolar disorder, current episode mixed, moderate F31.62 and Generalized anxiety disorder F41.1 [place] [id number] [place] [address] 47173- 0058 Dec, Panic disorder F41.0 [place] [id number] [place] [address] 60602- 9419 Nov, Panic disorder F41.0 [facility] [id number] [place] [address] 17199- 1001 Nov, Panic disorder F41.0 ; Generalized anxiety disorder F41.1 and Bipolar disorder, current episode mixed, moderate F31.62 [facility] [id number] [place] [address] 67548- 8648 Nov, Panic disorder F41.0 [facility] [id number] [place] [address] 65822- 5129 Nov, Panic disorder F41.0 [facility] [id number] [place] [address] 01249- 3479 October, Panic disorder F41.0 [facility] [id number] [place] [address] 34127- 1055 October, Panic disorder F41.0 ; Generalized anxiety disorder F41.1 and Bipolar disorder, current episode mixed, moderate F31.62 [facility] [id number] [place] [address] 05355- 7798 October, Panic disorder F41.0 [place] [address] 17024- 5966 Sep, Hospital discharge follow-up Z09 ; Concussion without loss of consciousness, initial encounter S06.0X0A and Nausea R11.0 [place] [address] 10230- 0442 Sep, [facility] [id number] [place] [address] 93240- 6009 Sep, Panic disorder F41.0 [place] [address] 05082- 7481 Sep, [facility] [id number] [place] [address] 95408- 7897 Sep, Well woman exam with routine gynecological exam Z01.419 ; Multiple fractures T07.XXXA ; Hot flashes R23.2 ; Essential hypertension I10 ; Mixed hyperlipidemia E78.2 ; Genital herpes simplex, unspecified site A60.00 ; Alkaline phosphatase elevation R74.8 ; Dysuria R30.0 ; Vitamin D deficiency E55.9 ; Tobacco use Z72.0 ; High risk sexual behavior Z72.51 and Encounter for immunization Z23 [facility] [id number] [place] [address] 79561- 7690 Aug, Panic disorder F41.0 ; Generalized anxiety disorder F41.1 and Bipolar disorder, current episode mixed, moderate F31.62 [place] [address] [place] [address]- 2780 Aug, [facility] [id number] [place] [address] 25263- 9385 Jul, Panic disorder F41.0 ; Generalized anxiety disorder F41.1 and Bipolar disorder, current episode mixed, moderate F31.62 [facility] [id number] [place] [address] 33860- 7420 Jul, [facility] [id number] [place] [address] 30145- 3921 Jul, [facility] [id number] [place] [address] 09415- 9958 Jul, Effusion, right knee M25.461 ; Acute pain of right knee M25.561 and Acute pain of left knee M25.562 [facility] [id number] [place] [address] 65474- 1340 Jun, Bipolar disorder, current episode mixed, moderate F31.62 ; Generalized anxiety disorder F41.1 and Panic disorder F41.0 [place] [id number] [place] [address] 23766- 4739 May, Bipolar disorder, current episode mixed, moderate F31.62 ; Generalized anxiety disorder F41.1 and Panic disorder F41.0 [facility] [address] [place] [address] 66941- 5375 May, Bipolar disorder, current episode mixed, moderate F31.62 [facility] [id number] [place] [address] 86903- 0172 May, Bipolar disorder, current episode mixed, moderate F31.62 [facility] [id number] [place] [address] 79447- 4900 Apr, Bipolar disorder, current episode mixed, moderate F31.62 ; Generalized anxiety disorder F41.1 and Panic disorder F41.0 [facility] [id number] [place] [address] 49976- 1568 Mar, [facility] [id number] [place] [address] 96219- 5683 Mar, Bipolar disorder, current episode mixed, moderate F31.62 ; Generalized anxiety disorder F41.1 and Panic disorder F41.0 [facility] [id number] [place] [address] 48296- 0006 27 Feb, 2017 [facility] [address] 85062- 1454 22 Feb, 2017 Posttraumatic stress disorder F43.10 [facility] [address] 36380- 0946 20 Feb, 2017 Gastroesophageal reflux disease, esophagitis presence not specified K21.9 [facility] [id number] [place] [address] 85653- 9765 13 Feb, 2017 [facility] [address] 31172- 8125 06 Feb, 2017 Knee pain, right anterior M25.561 [facility] [id number] [place] [address] 76760- 8545 05 Feb, 2017 HSV (herpes simplex virus) infection B00.9 [facility] [id number] [place] [address] 09877- 5901 05 Feb, 2017 [facility] [id number] [place] [address] 07765- 7592 Jan, [facility] [id number] [place] [address] 23110- 5433 Jan, Posttraumatic stress disorder F43.10 [facility] [id number] [place] [address] 31394- 3945 Jan, Foot pain, left M79.672 [facility] [id number] [place] [address] 99963- 6248 Jan, [facility] [address] 88605- 7794 Jan, Lumbar radiculopathy, acute M54.16 ; Muscle spasm of back M62.830 and Right hip pain M25.551 [facility] [id number] [place] [address] 53905- 4244 Jan, Lumbar radiculopathy, acute M54.16 [facility] [id number] [place] [address] 53083- 3521 Jan, [facility] [id number] [place] [address] 20231- 5097 Jan, [facility] [id number] [place] [address] 99596- 2068 Dec, Lumbar radiculopathy, acute M54.16 ; Acute renal insufficiency N28.9 and Muscle spasm of back M62.830 [facility] [id number] [place] [address] 94537- 0279 Dec, [facility] [id number] [place] [address] 92151- 0476 Dec, [facility] [id number] [place] [address] 65746- 3157 Dec, [facility] [id number] [place] [address] 69379 -1203 Dec, Low back pain with sciatica, sciatica laterality unspecified, unspecified back pain laterality, unspecified chronicity M54.40 and Acute right-sided low back pain with right-sided sciatica M54.41 [facility] [id number] [place] [address] 63782- 0442 Dec, Posttraumatic stress disorder F43.10 [facility] [id number] [place] [address] 36383- 9658 Dec, [facility] [id number] [place] [address] 10430- 0929 Dec, Pain in right thigh M79.651 and Acute right-sided low back pain without sciatica M54.5 [facility] [address] [address]- 6452 10 Dec, 2016 Posttraumatic stress disorder F43.10 and Major depressive disorder, recurrent episode with anxious distress F33.9 [facility] [address] [address] 08 Dec, 2016 [facility] [id number] [place] [address] 69610- 4485 Nov, [facility] [id number] [place] [address] 46452- 6510 October, [facility] [id number] [place] [address] 76829- 5278 October, [facility] [id number] [place] [address] 26335- 3662 October, Knee pain, right anterior M25.561 [facility] [id number] [place] [address] 90274- 0707 October, Knee pain, right anterior M25.561 [facility] [id number] [place] [address] 32865- 0008 October, [facility] [id number] [place] [address] 81539- 2148 October, [facility] [address] [address]- 7691 October, [facility] [address] [address]9293 Sep, [facility] [id number] [address]- 6396 Sep, [facility] [id number] [address]- 2299 Sep, Essential hypertension I10 [facility] [address] [address]- 4231 Sep, Essential hypertension I10 [facility] [id number] [place] [address] 77451- 6744 Sep, [facility] [id number] [place] [address] 91088- 4188 Sep, Posttraumatic stress disorder F43.10 and Major depressive disorder, recurrent episode with anxious distress F33.9 [place] [id number] [place] [address] 86299- 8052 Sep, Multiple fractures T14.8 ; Alkaline phosphatase elevation R74.8 and Vitamin D deficiency E55.9 [place] [id number] [place] [address] 92953- 8498 Sep, [place] [id number] [place] [address] 09696- 9063 Sep, Elevated serum creatinine R79.89 ; Fracture of foot, left, closed, initial encounter S92.902A and Alkaline phosphatase elevation R74.8 [place] [id number] [place] [address] 08310- 3725 Sep, Elevated serum creatinine R79.89 and Essential hypertension I10 [place] [id number] [place] [address] 10333- 3818 Sep, [place] [id number] [place] [address] 48746- 2824 Aug, Gastroesophageal reflux disease, esophagitis presence not specified K21.9 [place] [id number] [place] [address] 52148- 9277 Aug, Essential hypertension I10 ; Fracture of foot, left, closed , initial encounter S92.902A and Alkaline phosphatase elevation R74.8 [place] [id number] [place] [address] 47256- 5569 Jul, Genital herpes simplex, unspecified site A60.00 [place] [id number] [place] [address] 00191- 9039 Jul, Essential hypertension I10 [facility] [id number] [place] [address] 37617- 7633 Jun, Cough R05 and Wheezing R06.2 [place] [id number] [place] [address] 42697- 9032 Jun, Essential hypertension I10 [facility] [id number] [place] [address] 94265- 2080 May, Essential hypertension I10 [facility] [address] 96896- 1388 May, Posttraumatic stress disorder F43.10 and Major depressive disorder, recurrent episode with anxious distress F33.9 [place] [address] 90259- 4855 Apr, [place] [id number] [place] [address] 07444- 8748 Apr, [place] [address] 95094- 2102 Apr, [facility] [id number] [place] [address] 16650- 6336 Mar, [place] [id number] [place] [address] 91238- 2689 Feb, [place] [id number] [place] [address] 77340- 3659 Jan, [place] [id number] [place] [address] 53938- 7754 Jan, Essential hypertension I10 ; Mixed hyperlipidemia E78.2 ; Gastroesophageal reflux disease, esophagitis presence not specified K21.9 ; Mild intermittent asthma without complication J45.20 ; Hidradenitis suppurativa L73.2 ; Migraine without status migrainosus, not intractable, unspecified migraine type G43.909 ; Genital herpes simplex, unspecified site A60.00 and Closed traumatic minimally displaced fracture of metatarsal bone of left foot S92.302A [facility] [id number] [address] Jan, Localized edema R60.0 [facility] [id number] [place] [address] 73551- 1481 Dec, [facility] [id number] [place] [address] 13871- 2871 Dec, [facility] [id number] [place] [address] 78394- 8305 Dec, [facility] [id number] [place] [address] 53326 -6957 Dec, Cough R05 ; Tobacco dependence F17.200 and Costochondritis , acute M94.0 [facility] [id number] [place] [address] 27835- 7962 Dec, Major depression, recurrent F33.9 ; Bipolar disorder, unspecified F31.9 and Posttraumatic stress disorder F43.10 [facility] [id number] [place] [address] 92990- 4011 Nov, [facility] [id number] [place] [address] 09811- 6217 Nov, [facility] [id number] [place] [address] 46588- 7227 October, [facility] [address] [address] -1272 October, Acute upper respiratory infection, unspecified J06.9 [facility] [address] [address]- 4350 October, [facility] [id number] [place] [address] 68986- 6277 Sep, Bipolar affective disorder, remission status unspecified F31.9 and Post-traumatic stress disorder F43.10 [facility] [address] [address]- 8170 Sep, Bipolar disorder, unspecified F31.9 ; Posttraumatic stress disorder F43.10 and Major depression, recurrent F33.9 [place] [id number] [place] [address] 73012- 9799 16 Aug, 2015 Edema R60.9 ; Fatigue R53.83 and Polydipsia R63.1 [place] [id number] [place] [address] 95405- 2858 07 Aug, 2015 [facility] [address] 66654- 1789 Aug, [facility] [id number] [place] [address] 43776- 9374 Jul, [place] [address] 10109- 1048 Jul, [place] [address] 52331- 4425 Jun, [place] [id number] [place] [address] 31651- 7789 Jun, [facility] [id number] [place] [address] 28513- 1765 Jun, [facility] [id number] [place] [address] 64212- 0678 Jun, [place] [id number] [place] [address] 17478- 5576 May, Mixed hyperlipidemia E78.2 [place] [id number] [place] [address] 18583- 6088 23 May, 2015 Well woman exam Z01.419 ; History of herpes simplex infection Z86.19 ; Papanicolaou smear Z12.4 ; History of depression Z86.59 ; History of anxiety Z86.59 ; Lipoma of other specified sites D17.79 ; Hidradenitis suppurativa L73.2 ; Routine screening for STI (sexually transmitted infection) Z11.3 and Tobacco use Z72.0 [place] [id number] [place] [address] 01554- 0854 May, Hematuria R31.9 ; Essential hypertension I10 ; Pure hypercholesterolemia E78.0 and Hidradenitis L73.2 [place] [id number] [place] [address] 34517- 4331 May, Upper respiratory symptom R09.89 and Allergic rhinitis J30.[address] 41752- 9963 May, [facility] [address] 48352- 0226 May, [place] [address] 70397- 6308 May, Bipolar disorder, unspecified F31.9 ; Posttraumatic stress disorder F43.10 and Major depression, recurrent F33.[address] 87037- 3518 May, [facility] [id number] [place] [address] 07339- 3480 May, [place] [address] 13359- 1970 Apr, [facility] [id number] [place] [address] 16069- 7929 Apr, [place] [address] 22745- 7592 Mar, [facility] [id number] [place] [address] 58839- 2837 Mar, [facility] [address] 17615- 1720 Mar, [facility] [id number] [place] [address] 20533- 0568 18 Feb, 2015 Major depressive disorder, recurrent episode, moderate 296.32 and Post traumatic stress disorder (PTSD) 309.81 [facility] [address] [place] [address]- 3643 10 Feb, 2015 [facility] [address] [address]- 7122 08 Feb, 2015 [facility] [id number] [place] [address] 94378- 0968 Jan, Cough 786.2 [facility] [id number] [place] [address] 23066- 4484 Jan, Depression, major, recurrent, moderate 296.32 and Post traumatic stress disorder (PTSD) 309.81 [facility] [id number] [place] [address] 64490- 9654 Jan, [facility] [id number] [place] [address] 94394- 5280 Dec, [facility] [id number] [place] [address] 16494- 0801 Dec, Generalized anxiety disorder 300.02 and Depression, major, recurrent, moderate 296.32 [facility] [id number] [place] [address] 38916- 5162 Dec, [facility] [id number] [place] [address] 38813- 0987 Dec, High risk medication use V58.69 [facility] [id number] [place] [address] 23960- 1143 Dec, High risk medication use V58.69 [facility] [address], [place] [address]- 2199 Dec, [facility] [id number] [place] [address] 56324- 1068 Nov, Generalized anxiety disorder 300.02 and Major depressive disorder, recurrent episode, moderate 296.[address] [facility] [id number] [place] [address] [id number] Nov, Dental examination V72.[address] [facility] [id number] [place] [address] [place] [id number] Nov, Dental examination V72.2 [facility] [address] [id number] [address] Nov, [facility] [id number] [id number] Nov, Dental examination V72.[address] [facility] [id number] [id number] Nov, Dental examination V72.2 [facility] [id number] [place] [address] October, Major depressive disorder, recurrent episode, moderate 296.32 and Generalized anxiety disorder 300.02 [facility] [id number] [address] October, [facility] [id number] [address] October, [facility] [id number] [address] October, [facility] [id number] [address] Sep, [facility] [id number] [address] Sep, [facility] [id number] [address] Aug, [facility] [id number] [address] 17 Aug, 2014 [facility] [id number] [address] Aug, [facility] [address] [facility] [id number] [address] Aug, [facility] [id number] [address] Aug, [facility] [place] [facility] [address] [id number] [place] [address] Aug, [facility] [place] [facility] [address] [id number] [place] [address] Aug, [facility] [place] [facility] [address] [id number] [place] [address] 8611 Jul, 2014 [facility] [place] [facility] [address] [id number] [place] [address] 9506 Jul, 2014 [facility] [place] [facility] [address] [id number] [place] [address] 8484 Jul, 2014 [facility] [place] [facility] [address] [id number] [place] [address]- 7876 Jul, 2014 [facility] [place] [facility] [address] [facility] [id number] [place] [address]- 4650 Jul, 2014 [facility] [place] [facility] [address] [id number] [place] [address]- 4375 Jul, 2014 [facility] [place] [facility] [address] [id number] [place] [address]- 5708 Jul, [facility] [place] [facility] [address] [facility] [id number] [place] [address]- 8195 Jul, [facility] [place] [facility] [address] [facility] [id number] [place] [address]- 8396 Jul, [facility] [place] [facility] [address] [id number], [place] [address] 0[address] Jun, [facility] [place] [facility] [address] [id number] [place] [address]- 2141 Jun, [facility] [place] [facility] [address] [id number] [place] [address]- 0257 Jun, [facility] [place] [facility] [address] [facility] [id number][place] [address] 6248 Jun, [facility] [place] [facility] [address] [id number], [place] [address] 4819 Jun, [facility] [place] [facility] [address] [id number] [place] [address]- 7184 Jun, [facility] [place] [facility] [address] [id number] [place] [address]- 2304 Jun, [facility] [place] [facility] [address] [id number] [place] [address]- 4424 Jun, [facility] [place] [facility] [address] [id number] [place] [address]- 4381 Jun, [facility] [place] [facility] [address] [id number] [place] [address]- 1317 Jun, [facility] [place] [facility] [address] [id number] [place] [address]- 3817 Jun, [facility] [place] [facility] [address] [id number] [place] [address]- 8656 Jun, [facility] [place] [facility] [address] [id number] [place] [address]- 7365 Jun, [facility] [place] [facility] [address] [id number] [place] [address]- 9559 Jun, [facility] [place] [facility] [address] [id number] [place] [address]- 9157 Jun, [facility] [place] [facility] [address] [id number] [place] [address]- 2519 Jun, [facility] [place] [facility] [address] [id number], [place] [address]- 6164 Jun, [facility] [place] [facility] [address] [id number] [place] [address]- 2487 Jun, [facility] [place] [facility] [address] [id number] [place] [address]- 2608 Jun, [facility] [place] [facility] [address] [id number] [place] [address]- 1390 Jun, [facility] [place] [facility] [address] [id number] [place] [address]- 4856 Jun, [facility] [place] [facility] [address] [id number] [place] [address]- 5117 Jun, [facility] [place] [facility] [address] [id number] [place] [address]- 4837 Jun, [facility] [place] [facility] [address] [id number] [place] [address]- 2657 Jun, [facility] [place] [facility] [address] [id number] [place] [address]- 2044 Jun, [facility] [place] [facility] [address] [id number] [place] [address]- 4426 May, [facility] [place] [facility] [address] [id number] [place] [address]- 2599 May, [facility] [place] [facility] [address] [id number] [place] [address]- 0990 May, [facility] [place] [facility] [address] [id number] [place] [address]- 9060 May, [facility] [place] [facility] [address] [id number] [place] [address]- 2136 May, [facility] [place] [facility] [address] [id number] [place] [address]- 4343 May, [facility] [place] [facility] [address] [id number] [place] [address]- 8858 May, [facility] [place] [facility] [address] [id number] [place] May, [facility] [place] [facility] [address] [id number] [place] [address]- 6193 May, [facility] [place] [facility] [address] [id number] [place] [address]- 5756 May, [facility] [place] [facility] [address] [id number] [place] [address]- 7499 May, [facility] [place] [facility] [address] [id number] [place] [address]- 5844 May, [facility] [place] [facility] [address] [id number] [place] [address]- 2366 May, [facility] [place] [facility] [address] [id number] [place] [address]- 5448 May, [facility] [place] [facility] [address] [id number] [place] [address]- 4174 May, [facility] [place] [facility] [address] [id number] [place] [address]- 2927 May, [facility] [place] [facility] [address] [id number] [place] [address]- 5630 May, [facility] [place] [facility] [address] [id number] [place] [address]- 0553 May, [facility] [place] [facility] [address] [id number] [place] [address]- 4083 Apr, [facility] [place] [facility] [address] [id number] [place] [address]- 4186 Apr, [facility] [place] [facility] [address] [id number] [place] [address]- 6987 Apr, [facility] [place] [facility] [address] [id number], [place] [address]- 7322 Apr, [facility] [place] [facility] [address] [id number], [place] [address]- 3627 Apr, [facility] [place] [facility] [address] [id number] [place] [address]- 4051 Apr, [facility] [place] [facility] [address] [id number] [place] [address]- 4639 Apr, [facility] [place] [facility] [address] [id number] [place] [address]- 1007 Apr, [facility] [place] [facility] [address] [id number] [place] [address]- 8117 Mar, [facility] [place] [facility] [address] [id number] [place] [address]- 9149 24 Mar, 2014 [facility] [place] [facility] [address] [id number] [place] [address]- 7485 Feb, [facility] [place] [facility] [address] [id number] [place] [address]- 1130 Feb, 2013 [facility] [place] [facility] [address] [id number] [place] [address] 2541 Feb, 2013 [facility] [place] [facility] [address] [id number] [place] [address]- 9928 Feb, [facility] [place] [facility] [address] [id number] [place] [address]- 3644 Feb, [facility] [place] [facility] [address] [id number] [place] [address]- 9168 Feb, 2013 [facility] [place] [facility] [address] [id number] [place] [address]- 0923 Feb, [facility] [place] [facility] [address] [id number] [place] [address]- 7193 Feb, [facility] [place] [facility] [address] [id number] [place] [address]- 4661 Feb, [facility] [place] [facility] [address] [id number] [place] [address] 2542 Feb, [facility] [place] [facility] [address] [id number] [place] [address]- 0105 Jan, [facility] [place] [facility] [address] [id number] [place] [address]- 5124 Jan, [facility] [place] [facility] [address] [id number] [place] [address]- 7074 Jan, [facility] [place] [facility] [address] [id number] [place] [address]- 2153 Jan, [facility] [place] [facility] [address] [id number] [place] [address]- 9091 Jan, [facility] [place] [facility] [address] [id number] [place] [address]- 2648 Jan, [facility] [place] [facility] [address] [id number] [place] [address]- 2694 Jan, [facility] [place] [facility] [address] [id number] [place] [address]- 6713 Jan, [facility] [place] [facility] [address] [id number] [place] [address]- 8746 Jan, [facility] [place] [facility] [address] [id number] [place] [address]- 7167 Jan, [facility] [place] [facility] [address] [id number] [place] [address]- 6188 Jan, [facility] [place] [facility] [address] [id number] [place] [address]- 8936 Jan, [facility] [place] [facility] [address] [id number] [place] [address]- 0060 Jan, [facility] [place] [facility] [address] [id number] [place] [address]- 6762 Dec, [facility] [place] [facility] [address] [id number] [place] [address]- 8294 Dec, [facility] [place] [facility] [address] [id number] [place] [address]- 2440 Dec, [facility] [place] [facility] [address] [id number] [place] [address]- 2664 Dec, [facility] [place] [facility] [address] [id number] [place] [address]- 8362 Dec, [facility] [place] [facility] [address] [id number] [place] [address]- 7941 Dec, [facility] [place] [facility] [address] [id number] [place] [address]- 8161 Dec, [facility] [place] [facility] [address] [id number] [place] [address]- 7645 Dec, [facility] [place] [facility] [address] [id number] [place] [address]- 6238 Dec, [facility] [place] [facility] [address] [id number] [place] [address]- 3976 Dec, [facility] [place] [facility] [address] [id number] [place] [address]- 4677 Dec, [facility] [place] [facility] [address] [id number] [place] [address]- 7040 Dec, [facility] [place] [facility] [address] [id number] [place] [address]- 8873 Dec, [facility] [place] [facility] [address] [id number] [place] [address]- 5543 Dec, [facility] [place] [facility] [address] [id number] [place] [address]- 9468 Nov, [facility] [place] [facility] [address] [id number] [place] [address]- 4011 Nov, [facility] [place] [facility] [address] [id number] [place] [address]- 5718 Nov, [facility] [place] [facility] [address] [id number] [place] [address]- 9591 Nov, [facility] [place] [facility] [address] [id number] [place] [address]- 8085 Nov, [facility] [place] [facility] [address] [id number] [place] [address]- 2488 Nov, [facility] [place] [facility] [address] [id number] [place] [address]- 2327 Nov, [facility] [place] [facility] [address] [id number] [place] [address]- 5528 Nov, [facility] [place] [facility] [address] [id number] [place] [address]- 7439 October, [facility] [address] [id number] [place] [address]- 2300 October, [facility] [address] [id number] [place] [address]- 0091 October, [facility] [address] [id number] [place] [address]- 8995 October, [facility] [address] [id number] [place] [address]- 6736 October, [facility] [address] [id number] [place] [address]- 2503 October, [facility] [address] [id number] [place] [address]- 0566 October, [facility] [address] [id number] [place] [address]- 1644 October, [facility] [address] [id number] [place] [address]- 9170 October, [facility] [address] [id number] [place] [address]- 5204 October, [facility] [address] [id number] [place] [address]- 9379 October, [facility] [address] [id number] [place] [address]- 9529 October, [facility] [address] [id number] [place] [address]- 3124 October, [facility] [place] [facility] [address] [id number] [place] [address]- 5447 October, [facility] [place] [facility] [address] [id number] [place] [address]- 3612 October, [facility] [place] [facility] [address] [id number] [place]67 October, [facility] [place] [facility] [address] [id number] [place] [address]- 3840 Sep, [facility] [place] [facility] [address] [id number] [place] [address]- 0101 Sep, [facility] [place] [facility] [address] [id number] [place] [address]- 4253 Sep, [facility] [place] [facility] [address] [id number] [place] [address]- 9301 Sep, [facility] [place] [facility] [address] [id number] [place] [address]- 4579 Sep, [facility] [place] [facility] [address] [id number] [place] [address]- 8286 Sep, [facility] [place] [facility] [address] [id number] [place] [address]- 7012 Sep, [facility] [place] [facility] [address] [id number] [place] [address]- 3122 Sep, [facility] [place] [facility] [address] [id number] [place] [address]- 8897 Sep, [facility] [place] [facility] [address] [id number] [place] [address]- 4871 Sep, [facility] [place] [facility] [address] [id number] [place] [address]- 6387 Sep, [facility] [place] [facility] [address] [id number] [place] [address]- 5412 Sep, [facility] [place] [facility] [address] [id number] [place] [address]- 3355 Sep, [facility] [place] [facility] [address] [id number] [place] [address]- 3497 Sep, [facility] [place] [facility] [address] [id number] [place] [address]- 8590 Sep, [facility] [place] [facility] [address] [id number], [place] [address]- 2419 Sep, [facility] [place] [facility] [address] [facility] [id number] [place] [address]- 2348 Sep, [facility] [place] [facility] [address] [facility] [id number] [place] [address]- 5643 Sep, [facility] [place] [facility] [address] [facility] [id number] [place] [address]- 9559 Sep, [facility] [place] [facility] [address] [facility] [id number] [place] [address]- 5839 Aug, [facility] [place] [facility] [address] [facility] [id number] [place] [address]- 2601 Aug, [facility] [place] [facility] [address] [facility] [id number] [place] [address]- 9434 Aug, [facility] [place] [facility] [address] [id number] [place] [place] [address]- 7307 Aug, [facility] [place] [facility] [address] [facility] [id number] [place] [address]- 3259 Jul, [facility] [place] [facility] [address] [id number] [place] [place] [address]- 6272 Jul, [facility] [place] [facility] [address] [id number] [place] [place] [address]- 2649 Jul, [facility] [place] [facility] [address] [id number] [place] [place] [address]- 3794 Jul, [facility] [place] [facility] [address] [facility] [id number], [place] [address]- 8719 Jul, [facility] [place] [facility] [address] [facility] [id number] [place] [address]- 2138 Jul, [facility] [place] [facility] [address] [facility] [id number] [place] [address]- 0336 Jul, [facility] [place] [facility] [address] [id number] [place] [place] [address]- 5731 Jul, [facility] [place] [facility] [address] [id number] [place] [address]- 9249 Jul, [facility] [place] [facility] [address] [id number] [place] [address]- 1209 Jul, [facility] [place] [facility] [address] [id number] [place] [address]- 7793 Jul, [facility] [place] [facility] [address] [id number] [place] [address]- 1001 Jul, [facility] [place] [facility] [address] [id number] [place] [address]- 9763 Jun, [facility] [place] [facility] [address] [id number] [place] [address]- 2107 Jun, [facility] [place] [facility] [address] [id number] [place] [address]- 4787 Jun, [facility] [place] [facility] [address] [id number] [place] [address]- 1694 Jun, [facility] [place] [facility] [address] [id number] [place] [address]- 1397 Jun, [facility] [place] [facility] [address] [id number] [place] [address]- 7946 Jun, [facility] [place] [facility] [address] [id number], [place] [address]- 4134 May, [facility] [place] [facility] [address] [id number] [place] [address]- 1066 May, [facility] [place] [facility] [address] [id number] [place] [address]- 4371 Apr, [facility] [place] [facility] [address] [id number] [place] [address]- 1008 Apr, [facility] [place] [facility] [address] [id number] [place] [address]- 4521 Apr, [facility] [place] [facility] [address] [id number] [place] [address]- 6968 19 Apr, 2012 [facility] [place] [facility] [address] [id number] [place] [address]- 4226 18 Apr, 2013 [facility] [place] [facility] [address] [id number] [place] [address]- 3973 18 Apr, 2013 [facility] [place] [facility] [address] [id number] [place] [address]- 0000 17 Apr, 2013 [facility] [place] [facility] [address] [id number] [place] [address]- 5663 15 Apr, 2013 [facility] [place] [facility] [address] [id number] [place] [address]- 2046 15 Apr, 2013 [facility] [place] [facility] [address] [id number] [place] [address]- 6257 15 Apr, 2013 [facility] [place] [facility] [address] [id number] [place] [address]- 0295 15 Apr, 2013 [facility] [place] [facility] [address] [id number] [place] [address]- 3303 Apr, [facility] [place] [facility] [address] [id number] [place] [address]- 0494 Apr, [facility] [place] [facility] [address] [facility] [id number] [place] [address]- 3193 31 Mar, 2013 [facility] [place] [facility] [address] [id number] [place] [address]- 3035 31 Mar, 2013 [facility] [place] [facility] [address] [id number], [place] [address]- 9023 25 Mar, 2013 [facility] [place] [facility] [address] [id number] [place] [address]- 8552 25 Mar, 2013 [facility] [place] [facility] [address] [id number] [place] [address]- 0463 17 Mar, 2013 [facility] [place] [facility] [address] [id number], [place] [address]- 9913 17 Mar, 2013 [facility] [place] [facility] [address] [id number] [place] [address]- 0674 14 Mar, 2013 [facility] [place] [facility] [address] [id number] [place] [address] 14 Mar, 2013 [facility] [place] [facility] [address] [id number] [place] [address] 11 Mar, 2013 [facility] [place] [facility] [address] [id number] [place] [address]239 11 Mar, 2013 [facility] [place] [facility] [address] [id number] [place] [address] 4869 02 Mar, 2013 [facility] [place] [facility] [address] [id number] [place] [address] 30 Feb, 2013 [facility] [place] [facility] [address] [id number] [place] [address] 2820 28 Feb, 2013 [facility] [place] [facility] [address] [id number] [place] [address] 27 Feb, 2013 [facility] [place] [facility] [address] [id number] [place] [address]61 27 Feb, 2013 [facility] [place] [facility] [address] [id number] [place] [address]307 20 Feb, 2013 [facility] [place] [facility] [address] [id number] [place] [address] 59[address] 10 Feb, 2013 [facility] [place] [facility] [address] [id number] [place] [address] Jan, [facility] [place] [facility] [address] [id number] [place] [address] Jan, [facility] [place] [facility] [address] [id number] [place] [address] Dec, [facility] [place] [facility] [address] [id number] [place] [address]- [address]76 Dec, [facility] [place] [facility] [address] [id number] [place] [address] 2546 Dec, [facility] [address] [id number] [place] [address] 45[address] Dec, [facility] [place] [facility] [address] [id number] [place] [address]- [address] Nov, [facility] [place] [facility] [address] [id number] [place] [address]- [address] Nov, [facility] [place] [facility] [address] [id number] [place] [address]- 4678 Nov, [facility] [place] [facility] [address] [id number] [place] [address]395 October, [facility] [place] [facility] [address] [id number] [place] [address] 5452 October, [facility] [address] [id number] [place] [address] 378[address] October, [facility] [place] [facility] [address] [id number] [place] [address]- 2592 October, [facility] [place] [facility] [address] [id number] [place] [address]- 6626 October, [facility] [place] [facility] [address] [id number] [place] [address] 8639 Sep, [facility] [place] [facility] [address] [id number] [place] [address] 3784 Sep, [facility] [place] [facility] [address] [id number] [place] [address] 8611 Aug, [facility] [place] [facility] [address] [id number] [place] [address]338 15 Aug, 2012 [facility] [place] [facility] [address] [id number] [place] [address]- 8311 Aug, [facility] [place] [facility] [address] [id number] [place] [address] 5868 Aug, [facility] [place] [facility] [address] [id number] [place] [address] 3455 Aug, [facility] [address] [id number] [place] [address] Jul, [facility] [place] [facility] [address] [id number] [place] [address] 8256 Jul, [facility] [address] [id number] [place] [address] 0816 Jul, [facility] [place] [facility] [address] [id number] [place] [address] 5546 Jul, [facility] [address] [id number] [place] [address] 4[address] Jun, [facility] [address] [id number] [place] [address] 2013 Jun, [facility] [address] [id number] [place] [address] Jun, [facility] [address] [id number] [place] [address]594 Jun, [facility] [address] [id number] [place] [address] 0430 Jun, [facility] [address] [id number] [place] [address]- 5146 Jun, [facility] [address] [id number] [place] [address]- 3618 Jun, [facility] [address] [id number] [place] [address]- 0475 Jun, [facility] [place] [facility] [address] [id number] [place] [address]- 3565 Jun, [facility] [place] [facility] [address] [id number] [place] [address] 6106 Jun, [facility] [place] [facility] [address] [id number] [place] [address] Jun, [facility] [place] [facility] [address] [id number] [place] [address]- 2327 May, [facility] [place] [facility] [address] [id number] [place] [address]- 4244 May, [facility] [place] [facility] [address] [facility] [id number] [place] [address]- 6916 Apr, [facility] [place] [facility] [address] [id number] [place] [address]- 4179 Apr, [facility] [place] [facility] [address] [id number] [place] [address] 9003 Mar, [facility] [place] [facility] [address] [id number] [place] [address]- 5223 Mar, [facility] [place] [facility] [address] [id number] [place] [address] 4230 Mar, [facility] [place] [facility] [address] [id number] [place] [address]- 5873 Mar, [facility] [place] [facility] [address] [id number] [place] [address]- 8599 Mar, [facility] [place] [facility] [address] [facility] [id number][place] [address]86 Mar, [facility] [place] [facility] [address] [id number], [place] [address] 8702 Mar, [facility] [place] [facility] [address] [id number], [place] [address] Mar, [facility] [place] [facility] [address] [id number] [place] [address] 9041 Mar, [facility] [place] [facility] [address] [facility] [id number], [place] [address] Feb, [facility] [place] [facility] [address] [facility] [id number], [place] [address] 2546 Jan, [facility] [place] [facility] [address] [id number] [place] [address]- 1123 Jan, [facility] [place] [facility] [address] [id number] [place] [address]- 9473 Dec, [facility] [place] [facility] [address] [id number] [place] [address]- 3996 Dec, [facility] [place] [facility] [address] [id number] [place] [address]- 8506 Dec, [facility] [place] [facility] [address] [id number] [place] [address]- 4934 Nov, [facility] [place] [facility] [address] [id number] [place] [address]- 1063 Nov, [facility] [place] [facility] [address] [id number] [place] [address]- 7279 Nov, [facility] [place] [facility] [address] [id number] [place] [address]- 5529 Nov, [facility] [place] [facility] [address] [id number] [place] [address]- 6616 October, [facility] [place] [facility] [address] [id number] [place] [address]- 5566 October, [facility] [place] [facility] [address] [facility] [id number] [place] [address]- 2764 Sep, [facility] [place] [facility] [address] [id number] [place] [address]- 9545 Sep, [facility] [place] [facility] [address] [id number] [place] [address] Aug, [facility] [place] [facility] [address] [id number] [place] [address] Jul, [facility] [place] [facility] [address] [id number] [place] [address] Jul, [facility] [place] [facility] [address] [id number] [place] [address] Jul, [facility] [place] [facility] [address] [id number] [place] [address] Jul, [facility] [place] [facility] [address] [id number] [place] [address] Jun, [facility] [place] [facility] [address] [id number] [place] [address] 15 May, 2011 [facility] [place] [facility] [address] [id number] [place] [address] 15 May, 2011 [facility] [place] [facility] [address] [id number] [place] [address] 15 May, 2011 [facility] [place] [facility] [address] [id number] [place] [address] May, [facility] [place] [facility] [address] [id number] [place] [address] 08 May, 2011 [facility] [place] [facility] [address] [id number][place] [address] 14 Apr, 2011 [facility] [place] [facility] [address] [id number] [place] [address] 14 Apr, 2011 [facility] [place] [facility] [address] [facility] [id number], [place] [address] 14 Apr, 2011 [facility] [place] [facility] [address] [id number], [place] [address] Apr, [facility] [place] [facility] [address] [id number], [place] [address] 02 Apr, 2011 [facility] [place] [facility] [address] [id number], [place] [address] Mar, [facility] [place] [facility] [address] [id number], [place] [address] 25 Mar, 2011 [facility] [place] [facility] [address] [facility] [id number][place] [address] 14 Mar, 2011 [facility] [place] [facility] [address] [id number], [place] [address] 14 Mar, 2011 [facility] [id number] [address] 13 Mar, 2011 [facility] [id number], [place] [address] Mar, [facility] [id number], [place] [address] Mar, [facility] [id number], [place] [address] Mar, [facility] [id number] [place] [address] Feb, [facility] [address] [id number] [address] May, [facility] [id number] [place] [address] May, [facility] [id number], [place] [address] May, [facility] [id number], [place] [address] Apr, [facility] [id number] [address] Mar, IMMUNIZATIONS No Known Immunizations SOCIAL HISTORY Never Assessed REASON FOR VISIT f/u- AB/MA PLAN OF CARE Activity Details Follow Up 4 Weeks Reason: VITAL SIGNS Height 69 in 2018-02-22 Weight 263 lbs 2018-02-22 Heart Rate 93 bpm 2018-02-22 Respiratory Rate 20 2018-02-22 BMI 38.83 kg/m2 2018-02-22 Blood pressure systolic 142 mmHg 2018-02-22 Blood pressure diastolic 86 mmHg 2018-02-22 MEDICATIONS Medication Instructions Dosage Frequency Start Date End Date Duration Status Effexor XR 150 MG Orally Once a day 1 capsule 24h Aug, Active Alprazolam 0.25 MG Orally daily 1 tablet 24h Nov, Active Alprazolam 2 MG Orally part of taper 1 tablet mornign and 0.5 tablet night Active Ibuprofen 800 MG TAKE ONE TABLET BY MOUTH THREE TIMES DAILY WITH FOOD OR MILK 30 Active Lisinopril 40 MG TAKE ONE TABLET BY MOUTH ONCE DAILY 30 Active Gabapentin 300 MG TAKE THREE CAPSULES BY MOUTH TWICE DAILY Active Neurontin 300 MG Orally two times a day 3 capsules 12h 13 Aug, 2014 30 days Active Acyclovir 400 mg Orally 2 times a day TAKE ONE TABLET 12h 30 Active Omeprazole 20 MG TAKE ONE CAPSULE BY MOUTH ONCE DAILY 90 Active Hydrochlorothiazide 25 MG TAKE ONE TABLET BY MOUTH IN THE MORNING 90 Active RESULTS No Results PROCEDURES No Known [...] disorder type I 2000 Hospitalization History inpatient , SI 2006
--- OUTSIDE RECORDS SUMMARY | 2018-08-19 09:15 | XMS REPORT ---
Author Author CHESTER WASHINGTON Organization [facility] Address [address] [place] [address] Care Team Providers Care Project Scientist Name Role Phone ROS WASHINGTONTA Unavailable PROBLEMS Type Condition ICD9-CM Code WMC35-TH Code Onset Dates Condition Status SNOMED Code Problem Posttraumatic stress disorder F43.10 Active 99017600 Problem Generalized anxiety disorder F41.1 Active 44322459 Problem Panic disorder F41.0 Active 379869424 Problem Nausea R11.0 Active 961276965 Problem Anxiety F41.9 Active 29728147 Problem Hot flashes R23.2 Active 701436944 Problem Hematuria R31.9 Active 84552240 Problem Mixed hyperlipidemia E78.2 Active 290971652 Problem Low back pain with sciatica, sciatica laterality unspecified, unspecified back pain laterality, unspecified chronicity M54.40 Active 897652857 Problem Bipolar disorder, current episode mixed, moderate F31.62 Active 172217861 Problem Multiple fractures T07.XXXA Active 261798631 Problem Acute right-sided low back pain with right-sided sciatica M54.41 Active 42375951 Problem Gastroesophageal reflux disease, esophagitis presence not specified K21.9 Active 734965570 Problem Bipolar disorder F31.9 Active 54261407 Problem Primary insomnia F51.01 Active 189414895 Problem Mild intermittent asthma without complication J45.20 Active 439576001 Problem Hidradenitis suppurativa L73.2 Active 46615764 Problem History of IBS Z87.19 Active 42865374717629 Problem Essential hypertension I10 Active 88307615 Problem Genital herpes simplex, unspecified site A60.00 Active 45938518 Problem Vitamin D deficiency E55.9 Active 48080553 Problem Depression F32.9 Active 46531973 Problem Tobacco use Z72.0 Active [id number] ALLERGIES No Information ENCOUNTERS Encounter Location Date Diagnosis [facility] [address] [facility] [id number] [address] Apr, [facility] [address] [address] Mar, [facility] [id number] [place] [address] 81818- 6502 Mar, [facility] [id number] [place] [address] 226192- 0058 Mar, Panic disorder F41.0 [facility] [id number] [place] [address] 579400- 3919 Mar, [facility] [id number] [place] [address] 41388- 1562 Mar, Genital herpes simplex, unspecified site A60.00 and Hidradenitis L73.2 [facility] [id number] [place] [address] 36454- 8348 Feb, Panic disorder F41.0 ; Bipolar disorder, current episode mixed, moderate F31.62 and Generalized anxiety disorder F41.1 [facility] [id number] [place] [address] 43034- 3374 Feb, Panic disorder F41.0 [facility] [id number] [place] [address] 66853- 4203 Jan, Genital herpes simplex, unspecified site A60.00 [facility] [id number] [place] [address] 10756- 7018 Jan, Panic disorder F41.0 [facility] [id number] [place] [address] 33830- 9261 Dec, Diaphoresis R61 and Excessive thirst R63.1 [facility] [id number] [place] [address] 288214- 9135 Dec, Panic disorder F41.0 ; Bipolar disorder, current episode mixed, moderate F31.62 and Generalized anxiety disorder F41.1 [facility] [id number] [place] [address] 12030- 5782 Dec, Panic disorder F41.0 [facility] [id number] [place] [address] 97487- 4387 Nov, Panic disorder F41.0 [facility] [id number] [place] [address] 19058- 1804 Nov, Panic disorder F41.0 ; Generalized anxiety disorder F41.1 and Bipolar disorder, current episode mixed, moderate F31.62 [facility] [id number] [place] [address] 58812- 1229 Nov, Panic disorder F41.0 [facility] [id number] [place] [address] 89765- 6594 Nov, Panic disorder F41.0 [facility] [id number] [place] [address] 56899- 8975 October, Panic disorder F41.0 [facility] [id number] [place] [address] 55058- 0338 October, Panic disorder F41.0 ; Generalized anxiety disorder F41.1 and Bipolar disorder, current episode mixed, moderate F31.62 [facility] [id number] [place] [address] 32241- 2759 October, Panic disorder F41.0 [facility] [id number] [place] [address] 34279- 2358 Sep, Hospital discharge follow-up Z09 ; Concussion without loss of consciousness, initial encounter S06.0X0A and Nausea R11.0 [facility] [id number] [address] 34[address] Sep, [facility] [id number] [place] [address] 24291- 3795 Sep, Panic disorder F41.0 [facility] [id number] [place] [address] 53936- 2282 Sep, [facility] [id number] [place] [address] 66481- 8165 Sep, Well woman exam with routine gynecological exam Z01.419 ; Multiple fractures T07.XXXA ; Hot flashes R23.2 ; Essential hypertension I10 ; Mixed hyperlipidemia E78.2 ; Genital herpes simplex, unspecified site A60.00 ; Alkaline phosphatase elevation R74.8 ; Dysuria R30.0 ; Vitamin D deficiency E55.9 ; Tobacco use Z72.0 ; High risk sexual behavior Z72.51 and Encounter for immunization Z23 [place] [address] 29055- 4614 Aug, Panic disorder F41.0 ; Generalized anxiety disorder F41.1 and Bipolar disorder, current episode mixed, moderate F31.62 [place] [address] 08390- 4629 Aug, [place] [address] 82977- 3773 Jul, Panic disorder F41.0 ; Generalized anxiety disorder F41.1 and Bipolar disorder, current episode mixed, moderate F31.62 [place] [id number] [place] [address] 25707- 5123 Jul, [place] [address] 63952- 5607 Jul, [place] [id number] [place] [address] 34166- 5653 Jul, Effusion, right knee M25.461 ; Acute pain of right knee M25.561 and Acute pain of left knee M25.562 [place] [id number] [place] [address] 69162- 3704 Jun, Bipolar disorder, current episode mixed, moderate F31.62 ; Generalized anxiety disorder F41.1 and Panic disorder F41.0 [place] [id number] [place] [address] 14329- 5985 May, Bipolar disorder, current episode mixed, moderate F31.62 ; Generalized anxiety disorder F41.1 and Panic disorder F41.0 [facility] [id number] [place] [address] 91172- 3515 May, Bipolar disorder, current episode mixed, moderate F31.62 [facility] [id number] [place] [address] 5637 May, Bipolar disorder, current episode mixed, moderate F31.62 [place] [id number] [place] [address] 92838- 6597 Apr, Bipolar disorder, current episode mixed, moderate F31.62 ; Generalized anxiety disorder F41.1 and Panic disorder F41.0 [place] [id number] [place] [address] 98514- 9769 17 Mar, 2017 [place] [id number] [place] [address] 74312- 7620 Mar, Bipolar disorder, current episode mixed, moderate F31.62 ; Generalized anxiety disorder F41.1 and Panic disorder F41.0 [place] [id number] [place] [address] 97190- 0808 27 Feb, 2017 [place] [id number] [place] [address] 38693- 3953 22 Feb, 2017 Posttraumatic stress disorder F43.10 [place] [id number] [place] [address] 29243- 7568 20 Feb, 2017 Gastroesophageal reflux disease, esophagitis presence not specified K21.9 [place] [id number] [place] [address] 29930- 4437 13 Feb, 2017 [place] [id number] [place] [address] 46571- 5489 06 Feb, 2017 Knee pain, right anterior M25.561 [facility] [id number] [place] [address] 51549- 2701 05 Feb, 2017 HSV (herpes simplex virus) infection B00.9 [place] [id number] [place] [address] 03851- 4506 Feb, [facility] [id number] [place] [address] 23528- 0459 Jan, [facility] [id number] [place] [address] 02649- 5723 Jan, Posttraumatic stress disorder F43.10 [facility] [id number] [place] [address] 55372- 7038 Jan, Foot pain, left M79.672 [facility] [id number] [place] [address] 47420- 2801 Jan, [facility] [id number] [place] [address] 31693- 9950 Jan, Lumbar radiculopathy, acute M54.16 ; Muscle spasm of back M62.830 and Right hip pain M25.551 [facility] [id number] [place] [address] 11727- 7427 Jan, Lumbar radiculopathy, acute M54.16 [facility] [id number] [place] [address] 22094- 9304 Jan, [facility] [id number] [place] [address] 78426- 1437 Jan, [facility] [id number] [place] [address] 86158- 7605 Dec, Lumbar radiculopathy, acute M54.16 ; Acute renal insufficiency N28.9 and Muscle spasm of back M62.830 [facility] [address] [address]- 0506 Dec, [facility] [id number] [place] [address] 29531- 0896 Dec, [facility] [id number] [place] [address] 01894- 1984 Dec, [facility] [id number] [place] [address] 39479 -7087 Dec, Low back pain with sciatica, sciatica laterality unspecified, unspecified back pain laterality, unspecified chronicity M54.40 and Acute right-sided low back pain with right-sided sciatica M54.41 [facility] [address] [address]- 8574 Dec, Posttraumatic stress disorder F43.10 [facility] [id number] [place] [address] 95112- 8093 Dec, [facility] [id number] [place] [address] 11368- 1272 Dec, Pain in right thigh M79.651 and Acute right-sided low back pain without sciatica M54.5 [facility] [id number] [place] [address] 36435- 4336 Dec, Posttraumatic stress disorder F43.10 and Major depressive disorder, recurrent episode with anxious distress F33.9 [facility] [id number] [place] [address] 28116 -4218 Dec, [facility] [id number] [place] [address] 17411- 4966 Nov, [facility] [id number] [place] [address] 60010- 4016 October, [facility] [id number] [place] [address] 63230- 9970 October, [facility] [id number] [place] [address] 74187- 3566 October, Knee pain, right anterior M25.561 [facility] [id number] [place] [address] 61101- 5478 October, Knee pain, right anterior M25.561 [facility] [id number] [place] [address] 68302- 8874 October, [facility] [id number] [address]- 6324 October, [facility] [id number] [place] [address] 39124- 4753 October, [facility] [id number] [place] [address] 66465 -3270 Sep, [facility] [id number] [place] [address] 54177- 7328 Sep, [facility] [id number] [place] [address] 70518- 2466 Sep, Essential hypertension I10 [facility] [address] 24388- 9698 Sep, Essential hypertension I10 [facility] [id number] [place] [address] 10664- 5091 Sep, [facility] [id number] [place] [address] 80261- 3768 Sep, Posttraumatic stress disorder F43.10 and Major depressive disorder, recurrent episode with anxious distress F33.9 [facility] [id number] [place] [address] 44892- 1381 Sep, Multiple fractures T14.8 ; Alkaline phosphatase elevation R74.8 and Vitamin D deficiency E55.9 [facility] [id number] [place] [address] 81729- 1663 Sep, [facility] [id number] [place] [address] 13893- 7155 Sep, Elevated serum creatinine R79.89 ; Fracture of foot, left, closed, initial encounter S92.902A and Alkaline phosphatase elevation R74.8 [facility] [id number] [place] [address] 51317- 4293 Sep, Elevated serum creatinine R79.89 and Essential hypertension I10 [facility] [id number] [place] [address] 59753- 2942 Sep, [place] [id number] [place] [address] 82558- 3861 Aug, Gastroesophageal reflux disease, esophagitis presence not specified K21.9 [facility] [id number] [place] [address] 98793- 1229 Aug, Essential hypertension I10 ; Fracture of foot, left, closed , initial encounter S92.902A and Alkaline phosphatase elevation R74.8 [place] [address] 78492- 7713 Jul, Genital herpes simplex, unspecified site A60.00 [place] [address] 53327- 1207 Jul, Essential hypertension I10 [place] [address] 21521- 3978 Jun, Cough R05 and Wheezing R06.2 [place] [address] 92224- 5517 Jun, Essential hypertension I10 [place] [id number] [place] [address] 47534- 4774 May, Essential hypertension I10 [place] [id number] [place] [address] 74289- 1215 May, Posttraumatic stress disorder F43.10 and Major depressive disorder, recurrent episode with anxious distress F33.9 [place] [address] [id number] [place] [address] 07398- 7625 Apr, [facility] [id number] [place] [address] 24944- 2958 Apr, [facility] [address] 35978- 7910 Apr, [facility] [id number] [place] [address] 13927- 1774 Mar, [facility] [address] 63425- 0514 Feb, [facility] [address] 79403- 1277 Jan, [place] [address] 91242- 4872 Jan, Essential hypertension I10 ; Mixed hyperlipidemia E78.2 ; Gastroesophageal reflux disease, esophagitis presence not specified K21.9 ; Mild intermittent asthma without complication J45.20 ; Hidradenitis suppurativa L73.2 ; Migraine without status migrainosus, not intractable, unspecified migraine type G43.909 ; Genital herpes simplex, unspecified site A60.00 and Closed traumatic minimally displaced fracture of metatarsal bone of left foot S92.302A [facility] [address] 64877 -3698 Jan, Localized edema R60.0 [place] [address] 47507- 2274 Dec, [place] [address] 97171- 4037 Dec, [place] [address] 54616- 0462 Dec, [facility] [address] 70271 -5099 Dec, Cough R05 ; Tobacco dependence F17.200 and Costochondritis , acute M94.0 [place] [address] 13923- 8091 Dec, Major depression, recurrent F33.9 ; Bipolar disorder, unspecified F31.9 and Posttraumatic stress disorder F43.10 [place] [address] 02192- 0017 Nov, [place] [address] 52480- 9412 Nov, [place] [address] 00159- 8399 October, [facility] [address] [address] October, Acute upper respiratory infection, unspecified J06.9 [facility] [address], [place] [address]- 3539 October, [facility] [id number] [place] [address] 47064- 8667 Sep, Bipolar affective disorder, remission status unspecified F31.9 and Post-traumatic stress disorder F43.10 [facility] [id number] [place] [address] 55394- 5527 Sep, Bipolar disorder, unspecified F31.9 ; Posttraumatic stress disorder F43.10 and Major depression, recurrent F33.9 [facility] [address], [place] [address]- 9068 Aug, Edema R60.9 ; Fatigue R53.83 and Polydipsia R63.1 [facility] [address] [address]- 0098 Aug, [facility] [id number] [place] [address] 14985- 7859 Aug, [facility] [address] [address]- 3303 Jul, [facility] [id number] [address]- 9255 Jul, [facility] [id number] [address]- 6964 Jun, [facility] [id number] [place] [address] 78384- 5730 Jun, [facility] [id number] [address]- 2855 Jun, [facility] [id number] [place] [address] 92860- 1233 Jun, [facility] [id number] [place] [address] 77979- 9898 May, Mixed hyperlipidemia E78.2 [place] [id number] [place] [address] 02040- 4696 May, Well woman exam Z01.419 ; History of herpes simplex infection Z86.19 ; Papanicolaou smear Z12.4 ; History of depression Z86.59 ; History of anxiety Z86.59 ; Lipoma of other specified sites D17.79 ; Hidradenitis suppurativa L73.2 ; Routine screening for STI (sexually transmitted infection) Z11.3 and Tobacco use Z72.0 [place] [address] 20056- 6486 May, Hematuria R31.9 ; Essential hypertension I10 ; Pure hypercholesterolemia E78.0 and Hidradenitis L73.2 [place] [address] 61919- 3377 May, Upper respiratory symptom R09.89 and Allergic rhinitis J30.9 [place] [address] 02212- 5505 May, [place] [address] [place] [id number] [place] [address] 31720- 6190 May, [place] [address] [place] [id number] [place] [address] 38460- 7333 May, Bipolar disorder, unspecified F31.9 ; Posttraumatic stress disorder F43.10 and Major depression, recurrent F33.9 [place] [address] [place] [id number] [place] [address] 07030- 4170 May, [place] [address] 82017- 1987 May, [place] [address] [id number] [place] [address] 80769- 8067 Apr, [place] [id number] [address]- 7894 Apr, [facility] [address] 4886 Mar, [facility] [id number] [address]- 5381 Mar, [facility] [id number] [place] [address] 58108- 4579 Mar, [facility] [id number] [place] [address] 103840- 1589 18 Feb, 2015 Major depressive disorder, recurrent episode, moderate 296.32 and Post traumatic stress disorder (PTSD) 309.81 [facility] [id number] [place] [address] 874204- 9973 Feb, [facility] [id number] [place] [address] 468832- 2725 Feb, [facility] [id number] [place] [address] 20655- 6820 Jan, Cough 786.2 [facility] [id number] [place] [address] 548366- 8949 Jan, Depression, major, recurrent, moderate 296.32 and Post traumatic stress disorder (PTSD) 309.81 [facility] [address] [address]- 8373 Jan, [facility] [id number] 4556 Dec, [facility] [id number] [address] Dec, Generalized anxiety disorder 300.02 and Depression, major, recurrent, moderate 296.32 [facility] [id number] [id number] Dec, [facility] [id number] [address] Dec, High risk medication use V58.69 [facility] [address] [facility] [id number] [address] Dec, High risk medication use V58.69 [facility] [address] [facility] [id number] [address]2301[address] Dec, [facility] [address] [facility] [id number] [address] Nov, Generalized anxiety disorder 300.02 and Major depressive disorder, recurrent episode, moderate 296.32 [facility] [address] [id number] [id number] Nov, Dental examination V72.2 [facility] [id number] [place] [id number] Nov, Dental examination V72.2 [facility] [id number] [address] Nov, [facility] [id number] [place] [address] [id number] Nov, Dental examination V72.2 [facility] [id number] [place] [address] [id number] Nov, Dental examination V72.2 [facility] [address] [id number] [address] October, Major depressive disorder, recurrent episode, moderate 296.32 and Generalized anxiety disorder 300.02 [facility] [address] [facility] [id number] [address] October, [facility] [address] [facility] [id number] [address] October, [facility] [address] [facility] [id number][place] [address] October, [facility] [address] [facility] [id number] [address] Sep, [facility] [id number] [place] [address], [place] [address]- 8954 13 Sep, 2014 [facility] [place] [facility] [address] [id number] [place] [address] 9538 17 Aug, 2014 [facility] [place] [facility] [address] [id number] [place] [address]- 6317 17 Aug, 2014 [facility] [place] [facility] [address] [facility] [id number] [place] [address]- 4836 13 Aug, 2014 [facility] [place] [facility] [address] [id number] [place] [address]- 9239 13 Aug, 2014 [facility] [place] [facility] [address] [id number] [place] [address]- 2409 10 Aug, 2014 [facility] [place] [facility] [address] [facility] [id number] [place] [address]- 1788 03 Aug, 2014 [facility] [place] [facility] [address] [facility] [id number] [place] [address]- 8018 03 Aug, 2014 [facility] [place] [facility] [address] [facility] [id number] [place] [address]- 1670 16 Jul, 2014 [facility] [place] [facility] [address] [facility] [id number] [place] [address]- 8615 16 Jul, 2014 [facility] [place] [facility] [address] [facility] [id number] [place] [address]- 9230 16 Jul, 2014 [facility] [place] [facility] [address] [facility] [id number] [place] [address]- 2708 16 Jul, 2014 [facility] [place] [facility] [address] [facility] [id number] [place] [address]- 7019 06 Jul, 2014 [facility] [place] [facility] [address] [facility] [id number] [place] [address]- 4833 04 Jul, 2014 [facility] [place] [facility] [address] [facility] [id number] [place] [address]- 0256 04 Jul, 2014 [facility] [place] [facility] [address] [facility] [id number] [place] [address]- 7758 Jul, [facility] [place] [facility] [address] [id number] [place] [address]- 5378 Jul, [facility] [place] [facility] [address] [id number] [place] [address]- 2816 Jun, [facility] [place] [facility] [address] [id number] [place] [address]- 0809 Jun, [facility] [place] [facility] [address] [id number] [place] [address]- 9980 Jun, [facility] [place] [facility] [address] [id number] [place] [address]- 6721 Jun, [facility] [place] [facility] [address] [id number] [place] [address]- 6067 Jun, [facility] [place] [facility] [address] [id number] [place] [address]- 8234 Jun, [facility] [place] [facility] [address] [id number] [place] [address]- 7023 Jun, [facility] [place] [facility] [address] [id number] [place] [address]- 4241 Jun, [facility] [place] [facility] [address] [id number] [place] [address]- 4977 Jun, [facility] [place] [facility] [address] [id number] [place] [address]- 4798 Jun, [facility] [place] [facility] [address] [id number], [place] [address]- 4368 Jun, [facility] [place] [facility] [address] [id number] [place] [address]- 6288 Jun, [facility] [place] [facility] [address] [id number] [place] [address]- 5071 Jun, [facility] [place] [facility] [address] [id number] [place] [address]- 2840 Jun, [facility] [place] [facility] [address] [id number] [place] [address]- 2875 Jun, [facility] [address] [id number] [place] [address]- 0551 Jun, [facility] [place] [facility] [address] [id number] [place] [address]- 5622 Jun, [facility] [place] [facility] [address] [id number] [place] [address]- 6296 Jun, [facility] [place] [facility] [address] [id number] [place] [address]- 8490 Jun, [facility] [place] [facility] [address] [id number] [place] [address]- 5325 Jun, [facility] [place] [facility] [address] [id number] [place] [address]- 5191 Jun, [facility] [place] [facility] [address] [id number] [place] [address]- 6793 Jun, [facility] [place] [facility] [address] [id number] [place] [address]- 3017 Jun, [facility] [place] [facility] [address] [id number] [place] [address]- 2374 Jun, [facility] [place] [facility] [address] [id number] [place] [address]- 9091 Jun, [facility] [place] [facility] [address] [id number] [place] [address]- 7017 May, [facility] [place] [facility] [address] [id number] [place] [address]- 3765 May, [facility] [place] [facility] [address] [id number] [place] [address]- 2902 May, [facility] [place] [facility] [address] [id number] [place] [address]- 8500 May, [facility] [place] [facility] [address] [id number] [place] [address]- 4380 May, [facility] [place] [facility] [address] [id number] [place] [address]- 5430 May, [facility] [place] [facility] [address] [id number] [place] [address]- 2110 May, [facility] [place] [facility] [address] [id number] [place] [address]- 9305 May, [facility] [place] [facility] [address] [id number] [place] [address]- 1280 May, [facility] [place] [facility] [address] [id number] [place] [address]- 4529 May, [facility] [place] [facility] [address] [id number] [place] [address]- 2527 May, [facility] [place] [facility] [address] [id number] [place] [address]- 8521 May, [facility] [place] [facility] [address] [id number] [place] [address]- 7150 May, [facility] [place] [facility] [address] [id number] [place] [address]- 9277 May, [facility] [place] [facility] [address] [id number] [place] [address]- 5755 May, [facility] [place] [facility] [address] [id number] [place] [address]- 7542 May, [facility] [place] [facility] [address] [id number] [place] [address]- 1636 May, [facility] [place] [facility] [address] [id number] [place] [address]- 2817 May, [facility] [place] [facility] [address] [id number] [place] [address]- 6251 Apr, [facility] [place] [facility] [address] [id number] [place] [address]- 9729 Apr, [facility] [place] [facility] [address] [id number] [place] [address]- 9651 Apr, [facility] [place] [facility] [address] [id number] [place] [address]- 3129 Apr, [facility] [place] [facility] [address] [id number] [place] [address]- 7797 Apr, [facility] [place] [facility] [address] [id number] [place] [address]- 0572 Apr, [facility] [place] [facility] [address] [id number] [place] [address]- 0893 Apr, [facility] [place] [facility] [address] [id number] [place] [address]- 2216 Apr, [facility] [place] [facility] [address] [id number] [place] [address]- 8795 Mar, [facility] [place] [facility] [address] [id number] [place] [address]- 3588 Mar, [facility] [place] [facility] [address] [id number] [place] [address]- 6141 Feb, [facility] [place] [facility] [address] [id number] [place] [address]- 8711 Feb, [facility] [place] [facility] [address] [id number] [place] [address]- 5633 Feb, [facility] [place] [facility] [address] [id number], [place] [address]- 7860 12 Feb, 2014 [facility] [place] [facility] [address] [id number], [place] [address]- 0884 12 Feb, 2014 [facility] [place] [facility] [address] [id number] [place] [address]- 2542 12 Feb, 2014 [facility] [place] [facility] [address] [id number] [place] [address]- 5656 Feb, [facility] [place] [facility] [address] [id number] [place] [address]- 2547 10 Feb, 2014 [facility] [place] [facility] [address] [id number] [place] [address]- 6935 Feb, [facility] [place] [facility] [address] [id number] [place] [address]- 8665 Feb, [facility] [place] [facility] [address] [id number] [place] [address]- 9959 Jan, [facility] [place] [facility] [address] [id number] [place] [address]- 4592 Jan, [facility] [place] [facility] [address] [id number] [place] [address]- 2809 Jan, [facility] [place] [facility] [address] [id number] [place] [address]- 9499 Jan, [facility] [place] [facility] [address] [id number] [place] [address]- 4529 Jan, [facility] [place] [facility] [address] [id number] [place] [address]- 1231 Jan, [facility] [place] [facility] [address] [id number] [place] [address]- 9835 Jan, [facility] [place] [facility] [address] [id number] [place] [address]- 8204 Jan, [facility] [place] [facility] [address] [id number] [place] [address]- 7977 Jan, [facility] [place] [facility] [address] [id number] [place] [address]- 1290 Jan, [facility] [place] [facility] [address] [id number] [place] [address]- 9233 Jan, [facility] [place] [facility] [address] [id number] [place] [address]- 7306 Jan, [facility] [place] [facility] [address] [id number] [place] [address]- 8324 Jan, [facility] [place] [facility] [address] [id number] [place] [address]- 7892 Dec, [facility] [place] [facility] [address] [id number] [place] [address]- 3605 Dec, [facility] [place] [facility] [address] [id number] [place] [address]- 4288 Dec, [facility] [place] [facility] [address] [id number] [place] [address]- 8220 Dec, [facility] [place] [facility] [address] [id number] [place] [address]- 1120 Dec, [facility] [place] [facility] [address] [id number] [place] [address]- 3829 Dec, [facility] [place] [facility] [address] [id number] [place] [address]- 6786 Dec, [facility] [place] [facility] [address] [id number] [place] [address]- 6904 Dec, [facility] [place] [facility] [address] [id number] [place] [address]- 6188 Dec, [facility] [place] [facility] [address] [id number] [place] [address]- 6019 Dec, [facility] [place] [facility] [address] [id number] [place] [address]- 8267 Dec, [facility] [place] [facility] [address] [id number] [place] [address]- 0279 Dec, [facility] [place] [facility] [address] [id number] [place] [address]- 6971 Dec, [facility] [place] [facility] [address] [id number] [place] [address]- 5315 Dec, [facility] [place] [facility] [address] [id number] [place] [address]- 0333 Nov, [facility] [place] [facility] [address] [id number] [place] [address]- 6400 Nov, [facility] [place] [facility] [address] [id number] [place] [address]- 0669 Nov, [facility] [place] [facility] [address] [id number] [place] [address]- 3393 Nov, [facility] [place] [facility] [address] [id number] [place] [address]- 3294 Nov, [facility] [place] [facility] [address] [id number] [place] [address]- 3173 Nov, [facility] [place] [facility] [address] [id number] [place] [address]- 5440 Nov, [facility] [place] [facility] [address] [id number] [place] [address]- 0760 Nov, [facility] [place] [facility] [address] [id number] [place] [address]- 0220 October, [facility] [place] [facility] [address] [id number] [place] [address]- 6658 October, [facility] [place] [facility] [address] [id number] [place] [address]- 9849 October, [facility] [place] [facility] [address] [id number] [place] [address]- 0197 October, [facility] [place] [facility] [address] [id number] [place] [address]- 7523 October, [facility] [place] [facility] [address] [id number] [place] [address]- 7285 October, [facility] [place] [facility] [address] [id number] [place] [address]- 5793 October, [facility] [place] [facility] [address] [id number] [place] [address]- 1742 October, [facility] [place] [facility] [address] [id number] [place] [address]- 0549 October, [facility] [place] [facility] [address] [id number] [place] [address]- 9898 October, [facility] [place] [facility] [address] [id number] [place] [address]- 4812 October, [facility] [place] [facility] [address] [id number] [place] [address]- 3699 October, [facility] [place] [facility] [address] [id number] [place] [address]- 5531 October, [facility] [place] [facility] [address] [id number] [place] [address]- 5049 October, [facility] [place] [facility] [address] [id number] [place] [address]- 3830 October, [facility] [place] [facility] [address] [id number] [place] [address]- 2245 October, [facility] [place] [facility] [address] [id number] [place] [address]- 2821 Sep, [facility] [place] [facility] [address] [id number] [place] [address]- 3191 Sep, [facility] [place] [facility] [address] [id number] [place] [address]- 6855 Sep, [facility] [place] [facility] [address] [id number] [place] [address]- 0131 Sep, [facility] [place] [facility] [address] [id number] [place] [address]- 5217 Sep, [facility] [place] [facility] [address] [id number] [place] [address]- 7611 Sep, [facility] [place] [facility] [address] [id number] [place] [address]- 8985 Sep, [facility] [place] [facility] [address] [id number] [place] [address]- 5906 Sep, [facility] [place] [facility] [address] [id number] [place] [address]- 8318 Sep, [facility] [place] [facility] [address] [id number] [place] [address]- 9973 Sep, [facility] [place] [facility] [address] [id number] [place] [address]- 0759 Sep, [facility] [place] [facility] [address] [id number] [place] [address]- 6860 Sep, [facility] [place] [facility] [address] [id number] [place] [address]- 7811 Sep, [facility] [place] [facility] [address] [id number] [place] [address]- 2285 Sep, [facility] [place] [facility] [address] [id number] [place] [address]- 1546 Sep, [facility] [place] [facility] [address] [id number] [place] [address]- 4067 Sep, [facility] [place] [facility] [address] [id number] [place] [address]- 2690 Sep, [facility] [place] [facility] [address] [id number] [place] [address]- 3482 Sep, [facility] [place] [facility] [address] [id number] [place] [address]- 5458 Sep, [facility] [place] [facility] [address] [id number] [place] [address]- 5090 Aug, [facility] [place] [facility] [address] [id number] [place] [address]- 6597 Aug, [facility] [place] [facility] [address] [id number], [place] [address]- 1374 Aug, [facility] [place] [facility] [address] [id number] [place] [address]- 4470 Aug, [facility] [place] [facility] [address] [id number] [place] [address]- 7584 Jul, [facility] [place] [facility] [address] [id number] [place] [address]- 8665 Jul, [facility] [place] [facility] [address] [id number] [place] [address]- 9007 Jul, [facility] [place] [facility] [address] [id number] [place] [address]- 1066 Jul, [facility] [place] [facility] [address] [id number] [place] [address]- 2576 Jul, [facility] [place] [facility] [address] [id number] [place] [address]- 4816 Jul, [facility] [place] [facility] [address] [id number] [place] [address]- 4535 Jul, [facility] [place] [facility] [address] [id number] [place] [address]- 2829 Jul, [facility] [place] [facility] [address] [id number] [place] [address]- 1836 Jul, [facility] [place] [facility] [address] [id number] [place] [address]- 0135 Jul, [facility] [place] [facility] [address] [id number] [place] [address]- 5974 Jul, [facility] [place] [facility] [address] [facility] [id number] [place] [address]- 7179 Jul, [facility] [place] [facility] [address] [id number] [place] [address]- 9153 Jun, [facility] [place] [facility] [address] [id number] [place] [address]- 4997 Jun, [facility] [place] [facility] [address] [id number] [place] [address]- 9330 Jun, [facility] [place] [facility] [address] [id number] [place] [address]- 3080 Jun, [facility] [place] [facility] [address] [id number] [place] [address]- 6599 Jun, [facility] [place] [facility] [address] [id number], [place] [address]- 7622 16 Jun, 2013 [facility] [place] [facility] [address] [id number] [place] [address]- 0468 12 May, 2013 [facility] [place] [facility] [address] [id number] [place] [address]- 7435 May, [facility] [place] [facility] [address] [id number] [place] [address]- 7781 Apr, [facility] [place] [facility] [address] [id number], [place] [address]- 9761 Apr, [facility] [place] [facility] [address] [id number] [place] [address]- 4858 Apr, [facility] [place] [facility] [address] [id number], [place] [address]- 1550 19 Apr, 2013 [facility] [place] [facility] [address] [id number], [place] [address]- 8430 18 Apr, 2013 [facility] [place] [facility] [address] [id number], [place] [address]- 2032 18 Apr, 2013 [facility] [place] [facility] [address] [id number], [place] [address]- 0595 17 Apr, 2013 [facility] [place] [facility] [address] [id number], [place] [address]- 3586 15 Apr, 2013 [facility] [place] [facility] [address] [id number], [place] [address]- 2829 15 Apr, 2013 [facility] [place] [facility] [address] [id number], [place] [address]- 1693 15 Apr, 2013 [facility] [place] [facility] [address] [id number], [place] [address]- 8892 15 Apr, 2013 [facility] [place] [facility] [address] [id number], [place] [address]- 5099 13 Apr, 2013 [facility] [place] [facility] [address] [id number], [place] [address]- 6477 13 Apr, 2013 [facility] [place] [facility] [address] [id number] [place] [address]- 2462 31 Mar, 2012 [facility] [address] [id number] [place] [address]- 4169 31 Mar, 2012 [facility] [place] [facility] [address] [id number] [place] [address]- 0700 25 Mar, 2012 [facility] [address] [id number] [place] [address]- 3615 25 Mar, 2012 [facility] [place] [facility] [address] [id number] [place] [address]- 2009 17 Mar, 2012 [facility] [address] [id number] [place] [address] 74[address] 17 Mar, 2012 [facility] [address] [id number] [place] [address] 14 Mar, 2012 [facility] [place] [facility] [address] [id number] [place] [address] 82[address] 14 Mar, 2012 [facility] [address] [id number] [place] [address]- 4690 11 Mar, 2013 [facility] [place] [facility] [address] [id number] [place] [address] 3290 11 Mar, 2012 [facility] [address] [id number] [place] [address]283 02 Mar, 2013 [facility] [place] [facility] [address] [id number] [place] [address] 2542 30 Feb, 2012 [facility] [place] [facility] [address] [id number] [place] [address]43 28 Sep, 2012 [facility] [place] [facility] [address] [id number] [place] [address] 6045 27 Feb, 2012 [facility] [place] [facility] [address] [id number] [place] [address]- [address]44 27 Feb, 2012 [facility] [place] [facility] [address] [id number] [place] [address] Feb, [facility] [address] [id number] [place] [address] 16[address] Feb, [facility] [place] [facility] [address] [id number] [place] [address]286 Jan, [facility] [place] [facility] [address] [id number] [place] [address] 44[address] Jan, [facility] [place] [facility] [address] [id number] [place] [address]136 Dec, [facility] [address] [id number] [place] [address] Dec, [facility] [place] [facility] [address] [id number] [place] [address] 9216 Dec, [facility] [place] [facility] [address] [id number] [place] [address] 2906 Dec, [facility] [place] [facility] [address] [id number] [place] [address] 1559 Nov, [facility] [place] [facility] [address] [id number] [place] [address]- 0690 Nov, [facility] [place] [facility] [address] [id number] [place] [address] Nov, [facility] [place] [facility] [address] [id number] [place] [address]- 1826 October, [facility] [place] [facility] [address] [id number] [place] [address]- 1546 October, [facility] [place] [facility] [address] [id number] [place] [address] 8054 October, [facility] [place] [facility] [address] [id number] [place] [address]- 66[address] October, [facility] [place] [facility] [address] [id number] [place] [address]- 8866 October, [facility] [place] [facility] [address] [id number] [place] [address]- [address] Sep, [facility] [address] [id number] [place] [address] Sep, [facility] [address] [id number] [place] [address] 99[address] Aug, [facility] [address] [id number] [place] [address] 3877 15 Aug, 2012 [facility] [address] [id number] [place] [address] 7096 Aug, [facility] [address] [id number] [place] [address] 99[address] Aug, [facility] [address] [id number] [place] [address]- 4868 Aug, [facility] [address] [facility] [id number] [place] [address] 79[address] Jul, [facility] [address] [id number] [place] [address] 1994 Jul, [facility] [address] [id number] [place] [address]247 Jul, [facility] [address] [facility] [id number] [place] [address] 9807 Jul, [facility] [address] [facility] [id number] [place] [address] 2[address] Jun, [facility] [address] [id number] [place] [address]- 7285 29 Jun, 2012 [facility] [place] [facility] [address] [id number] [place] [address]- 1564 Jun, [facility] [place] [facility] [address] [id number] [place] [address]- 3068 Jun, [facility] [address] [id number] [address] Jun, [facility] [place] [facility] [address] [id number] [place] [address] 3501 10 Jun, 2012 [facility] [place] [facility] [address] [id number] [place] [address]- 7382 Jun, [facility] [place] [facility] [address] [id number] [place] [address]- 0881 09 Jun, 2012 [facility] [place] [facility] [address] [id number] [place] [address]- 3679 Jun, [facility] [place] [facility] [address] [id number] [place] [address]- 2357 Jun, [facility] [place] [facility] [address] [id number] [place] [address]- 5187 Jun, [facility] [place] [facility] [address] [id number] [place] [address]- 9381 May, [facility] [place] [facility] [address] [id number] [place] [address]- 0712 May, [facility] [place] [facility] [address] [id number] [place] [address]- 4991 Apr, [facility] [place] [facility] [address] [id number] [place] [address]- 2294 Apr, [facility] [place] [facility] [address] [id number] [place] [address]- 3818 Mar, [facility] [place] [facility] [address] [id number] [place] [address]- 5028 31 Mar, 2012 [facility] [place] [facility] [address] [id number] [place] [address]- 7712 30 Mar, 2012 [facility] [place] [facility] [address] [id number] [place] [address]- 4097 30 Mar, 2012 [facility] [place] [facility] [address] [id number] [place] [address]- 7640 17 Mar, 2012 [facility] [place] [facility] [address] [id number] [place] [address]- 1866 Mar, [facility] [place] [facility] [address] [id number] [place] [address]- 8306 Mar, [facility] [place] [facility] [address] [id number] [place] [address]- 2546 Mar, [facility] [place] [facility] [address] [id number] [place] [address] 2544 Mar, [facility] [place] [facility] [address] [id number] [place] [address]- 5965 Feb, [facility] [place] [facility] [address] [id number] [place] [address]- 3997 Jan, [facility] [place] [facility] [address] [id number] [place] [address]- 7924 Jan, [facility] [place] [facility] [address] [id number] [place] [address]- 3339 Dec, [facility] [place] [facility] [address] [id number] [place] [address]- 1728 Dec, [facility] [place] [facility] [address] [id number] [place] [address]- 1362 Dec, [facility] [place] [facility] [address] [id number] [place] [address]- 5965 Nov, [facility] [place] [facility] [address] [id number] [place] [address]- 1302 Nov, [facility] [place] [facility] [address] [id number] [place] [address]- 2856 Nov, [facility] [place] [facility] [address] [id number] [place] [address]- 6266 Nov, [facility] [place] [facility] [address] [id number] [place] [address]- 4673 October, [facility] [place] [facility] [address] [id number] [place] [address]- 8416 October, [facility] [place] [facility] [address] [id number] [place] [address]- 2166 Sep, [facility] [address] [id number] [place] [id number] Sep, [facility] [place] [facility] [address] [id number] [place] [address] Aug, [facility] [address] [id number] [place] [address] Jul, [facility] [place] [facility] [address] [id number] [place] [address] Jul, [facility] [place] [facility] [address] [id number] [place] [address] Jul, [facility] [place] [facility] [address] [id number] [place] [address] Jul, [facility] [place] [facility] [address] [id number] [place] [address] Jun, [facility] [address] [id number] [place] [address] 15 May, 2011 [facility] [place] [facility] [address] [id number] [place] [address] 15 May, 2011 [facility] [place] [facility] [address] [facility] [id number] [place] [address] 15 May, 2011 [facility] [place] [facility] [address] [id number] [place] [address] 13 May, 2011 [facility] [place] [facility] [address] [id number] [place] [address] 08 May, 2011 [facility] [place] [facility] [address] [id number] [place] [address] 14 Apr, 2011 [facility] [place] [facility] [address] [id number] [place] [address] 14 Apr, 2011 [facility] [place] [facility] [address] [id number] [place] [address] 14 Apr, 2011 [facility] [place] [facility] [address] [id number] [place] [address] 07 Apr, 2011 [facility] [place] [facility] [address] [id number] [place] [address] 02 Apr, 2011 [facility] [place] [facility] [address] [id number] [place] [address] 26 Mar, 2011 [facility] [place] [facility] [address] [id number] [place] [address] 25 Mar, 2011 [facility] [place] [facility] [address] [id number] [place] [address] 14 Mar, 2011 [facility] [place] [facility] [address] [id number] [place] [address] 14 Mar, 2011 [facility] [place] [facility] [address] [id number] [place] [address] 13 Mar, 2011 [facility] [place] [facility] [address] [id number] [place] [address] 11 Mar, 2011 [facility] [place] [facility] [address] [id number] [place] [address] 11 Mar, 2011 [facility] [place] [facility] [address] [id number], [place] [address] 11 Mar, 2011 [facility] [place] [facility] [address] [id number], [place] [address] 14 Feb, 2011 [facility] [place] [facility] [address] [id number], [place] [address] 16 May, 2010 [facility] [place] [facility] [address] [id number] [place] [address] 16 May, 2010 [facility] [place] [facility] [address] [id number] [address] 07 May, 2010 [facility] [place] [facility] [address] [id number] [place] [address] 26 Apr, 2010 [facility] [place] [facility] [address] [facility] [id number] [place] [id number] Mar, IMMUNIZATIONS No Known Immunizations SOCIAL HISTORY Never Assessed REASON FOR VISIT PLAN OF CARE VITAL SIGNS MEDICATIONS Medication Instructions Dosage Frequency Start Date End Date Duration Status Acyclovir 400 mg Orally 2 times a day TAKE ONE TABLET 12h 30 Active RESULTS No Results PROCEDURES No Known [...]
--- OUTSIDE RECORDS SUMMARY | 2018-08-19 09:16 | XMS REPORT ---
Author Author CURTIS GLENN Organization [facility] Address [address] [place] [address] Care Team Providers Care Overhead Worker Name Role Phone HARSHSALVADOR GLENN Unavailable PROBLEMS Type Condition ICD9-CM Code LWV15-MK Code Onset Dates Condition Status SNOMED Code Problem Posttraumatic stress disorder F43.10 Active 90063817 Problem Generalized anxiety disorder F41.1 Active 19764342 Problem Panic disorder F41.0 Active 261689487 Problem Nausea R11.0 Active 880418128 Problem Anxiety F41.9 Active 89095784 Problem Hot flashes R23.2 Active 061430834 Problem Hematuria R31.9 Active 61048397 Problem Mixed hyperlipidemia E78.2 Active 284151957 Problem Low back pain with sciatica, sciatica laterality unspecified, unspecified back pain laterality, unspecified chronicity M54.40 Active 843028117 Problem Bipolar disorder, current episode mixed, moderate F31.62 Active 124263788 Problem Multiple fractures T07.XXXA Active 324034324 Problem Acute right-sided low back pain with right-sided sciatica M54.41 Active 51070687 Problem Gastroesophageal reflux disease, esophagitis presence not specified K21.9 Active 992751188 Problem Bipolar disorder F31.9 Active 92196786 Problem Primary insomnia F51.01 Active 790578243 Problem Mild intermittent asthma without complication J45.20 Active 430113741 Problem Hidradenitis suppurativa L73.2 Active 00348899 Problem History of IBS Z87.19 Active 28194452271355 Problem Essential hypertension I10 Active 25818189 Problem Genital herpes simplex, unspecified site A60.00 Active 13208879 Problem Vitamin D deficiency E55.9 Active 21059693 Problem Depression F32.9 Active 83560499 Problem Tobacco use Z72.0 Active 526456120 ALLERGIES No Information ENCOUNTERS Encounter Location Date Diagnosis [facility] [address] [facility] [id number] [address] Mar, [facility] [id number] [place] [address] 62851- 3837 Feb, Panic disorder F41.0 ; Bipolar disorder, current episode mixed, moderate F31.62 and Generalized anxiety disorder F41.1 [facility] [id number] [place] [address] 43782- 4912 Feb, Panic disorder F41.0 [facility] [id number] [place] [address] 37720- 3260 Jan, Genital herpes simplex, unspecified site A60.00 [place] [id number] [place] [address] 84687- 8136 Jan, Panic disorder F41.0 [place] [id number] [place] [address] 85947- 4241 Dec, Diaphoresis R61 and Excessive thirst R63.1 [facility] [id number] [place] [address] 63767- 0593 Dec, Panic disorder F41.0 ; Bipolar disorder, current episode mixed, moderate F31.62 and Generalized anxiety disorder F41.1 [place] [id number] [place] [address] 82278- 4638 Dec, Panic disorder F41.0 [place] [id number] [place] [address] 43162- 6078 Nov, Panic disorder F41.0 [facility] [id number] [place] [address] 99382- 8700 Nov, Panic disorder F41.0 ; Generalized anxiety disorder F41.1 and Bipolar disorder, current episode mixed, moderate F31.62 [facility] [id number] [place] [address] 17243- 5670 Nov, Panic disorder F41.0 [facility] [id number] [place] [address] 76673- 3585 Nov, Panic disorder F41.0 [place] [id number] [place] [address] 05503- 0766 October, Panic disorder F41.0 [place] [id number] [place] [address] 40814- 5617 October, Panic disorder F41.0 ; Generalized anxiety disorder F41.1 and Bipolar disorder, current episode mixed, moderate F31.62 [place] [id number] [place] [address] 60653- 0265 October, Panic disorder F41.0 [place] [address] 51862- 0988 Sep, Hospital discharge follow-up Z09 ; Concussion without loss of consciousness, initial encounter S06.0X0A and Nausea R11.0 [place] [address] 87232- 5743 Sep, [place] [id number] [place] [address] 93309- 1168 Sep, Panic disorder F41.0 [place] [address] 67247- 8845 Sep, [place] [id number] [place] [address] 76850- 6738 Sep, Well woman exam with routine gynecological exam Z01.419 ; Multiple fractures T07.XXXA ; Hot flashes R23.2 ; Essential hypertension I10 ; Mixed hyperlipidemia E78.2 ; Genital herpes simplex, unspecified site A60.00 ; Alkaline phosphatase elevation R74.8 ; Dysuria R30.0 ; Vitamin D deficiency E55.9 ; Tobacco use Z72.0 ; High risk sexual behavior Z72.51 and Encounter for immunization Z23 [place] [id number] [place] [address] 97052- 7211 Aug, Panic disorder F41.0 ; Generalized anxiety disorder F41.1 and Bipolar disorder, current episode mixed, moderate F31.62 [place] [address] [place] [address] 36[address] Aug, [facility] [id number] [place] [address] 61752- 8699 Jul, Panic disorder F41.0 ; Generalized anxiety disorder F41.1 and Bipolar disorder, current episode mixed, moderate F31.62 [facility] [id number] [place] [address] 03472- 6305 Jul, [facility] [id number] [place] [address] 58458- 8964 Jul, [facility] [id number] [place] [address] 50370- 0905 Jul, Effusion, right knee M25.461 ; Acute pain of right knee M25.561 and Acute pain of left knee M25.562 [facility] [id number] [place] [address] 36984- 0057 Jun, Bipolar disorder, current episode mixed, moderate F31.62 ; Generalized anxiety disorder F41.1 and Panic disorder F41.0 [place] [id number] [place] [address] 67819- 2959 May, Bipolar disorder, current episode mixed, moderate F31.62 ; Generalized anxiety disorder F41.1 and Panic disorder F41.0 [facility] [address] [place] [address] 28146- 6542 May, Bipolar disorder, current episode mixed, moderate F31.62 [facility] [address] [place] [address] 09803- 4526 May, Bipolar disorder, current episode mixed, moderate F31.62 [facility] [id number] [place] [address] 81424- 3450 Apr, Bipolar disorder, current episode mixed, moderate F31.62 ; Generalized anxiety disorder F41.1 and Panic disorder F41.0 [facility] [id number] [place] [address] 23267- 3409 Mar, [facility] [id number] [place] [address] 48695- 5293 Mar, Bipolar disorder, current episode mixed, moderate F31.62 ; Generalized anxiety disorder F41.1 and Panic disorder F41.0 [facility] [id number] [place] [address] 19708- 6140 27 Feb, 2017 [facility] [address] 94855- 2405 22 Feb, 2017 Posttraumatic stress disorder F43.10 [facility] [address] 27397- 2801 20 Feb, 2017 Gastroesophageal reflux disease, esophagitis presence not specified K21.9 [facility] [id number] [place] [address] 10960- 1800 13 Feb, 2017 [facility] [address] 93315- 6057 06 Feb, 2017 Knee pain, right anterior M25.561 [facility] [id number] [place] [address] 50110- 9927 05 Feb, 2017 HSV (herpes simplex virus) infection B00.9 [facility] [id number] [place] [address] 45739- 1683 05 Feb, 2017 [facility] [id number] [place] [address] 59709- 7537 Jan, [facility] [id number] [place] [address] 62817- 6394 Jan, Posttraumatic stress disorder F43.10 [facility] [id number] [place] [address] 29586- 9594 Jan, Foot pain, left M79.672 [facility] [id number] [place] [address] 31369- 0702 Jan, [facility] [address] 12768- 8027 Jan, Lumbar radiculopathy, acute M54.16 ; Muscle spasm of back M62.830 and Right hip pain M25.551 [facility] [id number] [place] [address] 92689- 8364 Jan, Lumbar radiculopathy, acute M54.16 [facility] [id number] [place] [address] 35664- 8240 Jan, [facility] [id number] [place] [address] 58855- 1018 Jan, [facility] [id number] [place] [address] 52777- 0588 Dec, Lumbar radiculopathy, acute M54.16 ; Acute renal insufficiency N28.9 and Muscle spasm of back M62.830 [facility] [id number] [place] [address] 90040- 8305 Dec, [facility] [id number] [place] [address] 01229- 5613 Dec, [facility] [id number] [place] [address] 96914- 2717 Dec, [facility] [id number] [place] [address] 71915 -9832 Dec, Low back pain with sciatica, sciatica laterality unspecified, unspecified back pain laterality, unspecified chronicity M54.40 and Acute right-sided low back pain with right-sided sciatica M54.41 [facility] [id number] [place] [address] 89158- 2897 Dec, Posttraumatic stress disorder F43.10 [facility] [id number] [place] [address] 14537- 8138 Dec, [facility] [id number] [place] [address] 34290- 5157 Dec, Pain in right thigh M79.651 and Acute right-sided low back pain without sciatica M54.5 [facility] [address] [address]- 3869 10 Dec, 2016 Posttraumatic stress disorder F43.10 and Major depressive disorder, recurrent episode with anxious distress F33.9 [facility] [address] [address]697 08 Dec, 2016 [facility] [id number] [place] [address] 25497- 3098 Nov, [facility] [id number] [place] [address] 24754- 9877 October, [facility] [id number] [place] [address] 77669- 6567 October, [facility] [id number] [place] [address] 59360- 0254 October, Knee pain, right anterior M25.561 [facility] [id number] [place] [address] 98690- 4718 October, Knee pain, right anterior M25.561 [facility] [id number] [place] [address] 70614- 2019 October, [facility] [id number] [place] [address] 24082- 4660 October, [facility] [address] [address]- 6535 October, [facility] [address] [address]14 Sep, [facility] [id number] [address]- 1308 Sep, [facility] [id number] [address]- 5664 Sep, Essential hypertension I10 [facility] [address] [address]- 5293 Sep, Essential hypertension I10 [facility] [id number] [place] [address] 27967- 0579 Sep, [facility] [id number] [place] [address] 75155- 9156 Sep, Posttraumatic stress disorder F43.10 and Major depressive disorder, recurrent episode with anxious distress F33.9 [place] [id number] [place] [address] 10108- 7551 Sep, Multiple fractures T14.8 ; Alkaline phosphatase elevation R74.8 and Vitamin D deficiency E55.9 [place] [id number] [place] [address] 15298- 4782 Sep, [place] [id number] [place] [address] 85581- 4354 Sep, Elevated serum creatinine R79.89 ; Fracture of foot, left, closed, initial encounter S92.902A and Alkaline phosphatase elevation R74.8 [place] [id number] [place] [address] 32520- 3837 Sep, Elevated serum creatinine R79.89 and Essential hypertension I10 [place] [id number] [place] [address] 86895- 4093 Sep, [place] [id number] [place] [address] 75224- 5436 Aug, Gastroesophageal reflux disease, esophagitis presence not specified K21.9 [place] [id number] [place] [address] 67924- 3526 Aug, Essential hypertension I10 ; Fracture of foot, left, closed , initial encounter S92.902A and Alkaline phosphatase elevation R74.8 [place] [id number] [place] [address] 76281- 5195 Jul, Genital herpes simplex, unspecified site A60.00 [place] [id number] [place] [address] 60725- 8497 Jul, Essential hypertension I10 [facility] [address] [place] [address] 38939- 2919 Jun, Cough R05 and Wheezing R06.2 [place] [id number] [place] [address] 27255- 8609 Jun, Essential hypertension I10 [facility] [id number] [place] [address] 94514- 0588 May, Essential hypertension I10 [facility] [address] 80968- 7530 May, Posttraumatic stress disorder F43.10 and Major depressive disorder, recurrent episode with anxious distress F33.9 [place] [address] 05529- 4874 Apr, [place] [id number] [place] [address] 53099- 5059 Apr, [place] [address] 05369- 8076 Apr, [facility] [id number] [place] [address] 34699- 2645 Mar, [place] [id number] [place] [address] 86420- 5314 Feb, [place] [id number] [place] [address] 90439- 6243 Jan, [place] [id number] [place] [address] 30640- 0526 Jan, Essential hypertension I10 ; Mixed hyperlipidemia E78.2 ; Gastroesophageal reflux disease, esophagitis presence not specified K21.9 ; Mild intermittent asthma without complication J45.20 ; Hidradenitis suppurativa L73.2 ; Migraine without status migrainosus, not intractable, unspecified migraine type G43.909 ; Genital herpes simplex, unspecified site A60.00 and Closed traumatic minimally displaced fracture of metatarsal bone of left foot S92.302A [facility] [id number] [address] Jan, Localized edema R60.0 [facility] [id number] [place] [address] 35802- 8304 Dec, [facility] [id number] [place] [address] 92477- 9807 Dec, [facility] [id number] [place] [address] 01503- 2808 Dec, [facility] [id number] [place] [address] 67402 -6275 Dec, Cough R05 ; Tobacco dependence F17.200 and Costochondritis , acute M94.0 [facility] [id number] [place] [address] 82549- 8249 Dec, Major depression, recurrent F33.9 ; Bipolar disorder, unspecified F31.9 and Posttraumatic stress disorder F43.10 [facility] [address] [place] [address] 32758- 3661 Nov, [facility] [id number] [place] [address] 09591- 8601 Nov, [facility] [id number] [place] [address] 34527- 9279 October, [facility] [address], [place] [address]4 October, Acute upper respiratory infection, unspecified J06.9 [facility] [address], [place] [address]- 6210 October, [facility] [id number] [place] [address] 95336- 1385 Sep, Bipolar affective disorder, remission status unspecified F31.9 and Post-traumatic stress disorder F43.10 [facility] [address], [place] [address]- 2333 Sep, Bipolar disorder, unspecified F31.9 ; Posttraumatic stress disorder F43.10 and Major depression, recurrent F33.9 [place] [id number] [place] [address] 62641- 4425 16 Aug, 2015 Edema R60.9 ; Fatigue R53.83 and Polydipsia R63.1 [place] [id number] [place] [address] 23868- 0414 07 Aug, 2015 [facility] [address] 50049- 1542 Aug, [facility] [id number] [place] [address] 47250- 5560 Jul, [place] [address] 78203- 0669 Jul, [place] [address] 03386- 7643 Jun, [place] [id number] [place] [address] 41630- 0604 Jun, [place] [id number] [place] [address] 75458- 5414 Jun, [place] [id number] [place] [address] 84352- 7996 Jun, [place] [id number] [place] [address] 76890- 0504 May, Mixed hyperlipidemia E78.2 [place] [id number] [place] [address] 61816- 1284 23 May, 2015 Well woman exam Z01.419 ; History of herpes simplex infection Z86.19 ; Papanicolaou smear Z12.4 ; History of depression Z86.59 ; History of anxiety Z86.59 ; Lipoma of other specified sites D17.79 ; Hidradenitis suppurativa L73.2 ; Routine screening for STI (sexually transmitted infection) Z11.3 and Tobacco use Z72.0 [place] [id number] [place] [address] 77563- 0362 May, Hematuria R31.9 ; Essential hypertension I10 ; Pure hypercholesterolemia E78.0 and Hidradenitis L73.2 [place] [id number] [place] [address] 68952- 2922 May, Upper respiratory symptom R09.89 and Allergic rhinitis J30.[address] 67211- 5926 May, [facility] [address] 76783- 4926 May, [place] [address] 69945- 8041 May, Bipolar disorder, unspecified F31.9 ; Posttraumatic stress disorder F43.10 and Major depression, recurrent F33.[address] 24579- 5839 May, [facility] [id number] [place] [address] 81203- 9350 May, [place] [address] 49052- 2809 Apr, [facility] [id number] [place] [address] 27577- 8467 Apr, [place] [address] 28293- 3181 Mar, [facility] [id number] [place] [address] 36040- 5209 Mar, [facility] [address] 32259- 5739 Mar, [facility] [id number] [place] [address] 84908- 7187 18 Feb, 2015 Major depressive disorder, recurrent episode, moderate 296.32 and Post traumatic stress disorder (PTSD) 309.81 [facility] [address] [address]- 5599 10 Feb, 2015 [facility] [address], [place] [address]- 7028 08 Feb, 2015 [facility] [id number] [place] [address] 45272- 0720 Jan, Cough 786.2 [facility] [id number] [place] [phone] Jan, Depression, major, recurrent, moderate 296.32 and Post traumatic stress disorder (PTSD) 309.81 [facility] [id number] [place] [phone] Jan, [facility] [id number] [place] [phone] Dec, [facility] [id number] [place] [phone] Dec, Generalized anxiety disorder 300.02 and Depression, major, recurrent, moderate 296.32 [facility] [id number] [place] [phone]- [phone] Dec, [facility] [id number] [place] [phone] Dec, High risk medication use V58.69 [facility] [id number] [place] [address] Dec, High risk medication use V58.69 [facility] [id number], [place] [address] Dec, [facility] [id number] [place] [address]- 5601 Nov, Generalized anxiety disorder 300.02 and Major depressive disorder, recurrent episode, moderate 296.32 [facility] [id number] [place] [id number] Nov, Dental examination V72.2 [facility] [id number] [place] [address] [place] [id number] Nov, Dental examination V72.2 [facility] [address] [id number], [place] [address] Nov, [facility] [address] [id number] Nov, Dental examination V72.2 [facility] [id number] [id number] Nov, Dental examination V72.2 [facility] [id number] [place] [address] 2546 October, Major depressive disorder, recurrent episode, moderate 296.32 and Generalized anxiety disorder 300.02 [facility] [address], [place] [address] October, [facility] [id number], [place] [address] 1566 October, [facility] [id number], [place] [address] 2546 October, [facility] [id number], [place] [address] Sep, [facility] [id number], [place] [address] Sep, [facility] [id number], [place] [address] 8[address] Aug, [facility] [id number], [place] [address]46 17 Aug, 2014 [facility] [address], [place] [address] 2546 Aug, [facility] [address] [facility] [id number], [place] [address] 2546 Aug, [facility] [address], [place] [address]- 2546 Aug, [facility] [place] [facility] [address] [id number] [place] [address]- 6092 Aug, [facility] [place] [facility] [address] [id number] [place] [address]- 9421 Aug, [facility] [place] [facility] [address] [id number] [place] [address]- 9154 Jul, 2014 [facility] [place] [facility] [address] [id number] [place] [address]- 6440 Jul, 2014 [facility] [place] [facility] [address] [id number] [place] [address]- 0093 Jul, 2014 [facility] [place] [facility] [address] [id number] [place] [address]- 5914 Jul, 2014 [facility] [place] [facility] [address] [facility] [id number] [place] [address]- 2980 Jul, 2014 [facility] [place] [facility] [address] [id number] [place] [address]- 6483 Jul, 2014 [facility] [place] [facility] [address] [id number] [place] [address]- 7234 Jul, [facility] [place] [facility] [address] [facility] [id number] [place] [address]- 5550 Jul, [facility] [place] [facility] [address] [facility] [id number] [place] [address]- 2296 Jul, [facility] [place] [facility] [address] [id number], [place] [address] 6161 Jun, [facility] [place] [facility] [address] [id number] [place] [address]- 3944 Jun, [facility] [place] [facility] [address] [id number] [place] [address]- 2668 Jun, [facility] [place] [facility] [address] [facility] [id number], [place] [address]- 4460 Jun, [facility] [place] [facility] [address] [id number], [place] [address]- 9780 Jun, [facility] [place] [facility] [address] [id number] [place] [address]- 3238 Jun, [facility] [place] [facility] [address] [id number] [place] [address]- 2941 Jun, [facility] [place] [facility] [address] [id number] [place] [address]- 3293 Jun, [facility] [place] [facility] [address] [id number] [place] [address]- 3928 Jun, [facility] [place] [facility] [address] [id number] [place] [address]- 3426 Jun, [facility] [place] [facility] [address] [id number] [place] [address]- 5177 Jun, [facility] [place] [facility] [address] [id number] [place] [address]- 5226 Jun, [facility] [place] [facility] [address] [id number] [place] [address]- 5907 Jun, [facility] [place] [facility] [address] [id number] [place] [address]- 7017 Jun, [facility] [place] [facility] [address] [id number] [place] [address]- 1024 Jun, [facility] [place] [facility] [address] [id number] [place] [address]- 2533 Jun, [facility] [place] [facility] [address] [id number], [place] [address]- 7417 Jun, [facility] [place] [facility] [address] [id number] [place] [address]- 2195 Jun, [facility] [place] [facility] [address] [id number] [place] [address]- 1546 Jun, [facility] [place] [facility] [address] [id number] [place] [address]- 9926 Jun, [facility] [place] [facility] [address] [id number] [place] [address]- 0647 Jun, [facility] [place] [facility] [address] [id number] [place] [address]- 9234 Jun, [facility] [place] [facility] [address] [id number] [place] [address]- 2059 Jun, [facility] [place] [facility] [address] [id number] [place] [address]- 5113 Jun, [facility] [place] [facility] [address] [id number] [place] [address]- 8878 Jun, [facility] [place] [facility] [address] [id number] [place] [address]- 4290 May, [facility] [place] [facility] [address] [id number] [place] [address]- 5288 May, [facility] [place] [facility] [address] [id number] [place] [address]- 5392 May, [facility] [place] [facility] [address] [id number] [place] [address]- 7964 May, [facility] [place] [facility] [address] [id number] [place] [address]- 1543 May, [facility] [place] [facility] [address] [id number] [place] [address]- 2676 May, [facility] [place] [facility] [address] [id number] [place] [address]- 9235 May, [facility] [place] [facility] [address] [id number] [place] May, [facility] [place] [facility] [address] [id number] [place] [address]- 1104 May, [facility] [place] [facility] [address] [id number] [place] [address]- 3056 May, [facility] [place] [facility] [address] [id number] [place] [address]- 9083 May, [facility] [place] [facility] [address] [id number] [place] [address]- 5399 May, [facility] [place] [facility] [address] [id number] [place] [address]- 1053 May, [facility] [place] [facility] [address] [id number] [place] [address]- 3447 May, [facility] [place] [facility] [address] [id number] [place] [address]- 7221 May, [facility] [place] [facility] [address] [id number] [place] [address]- 2482 May, [facility] [place] [facility] [address] [id number] [place] [address]- 2453 May, [facility] [place] [facility] [address] [id number] [place] [address]- 8633 May, [facility] [place] [facility] [address] [id number] [place] [address]- 8969 Apr, [facility] [place] [facility] [address] [id number] [place] [address]- 0892 Apr, [facility] [place] [facility] [address] [id number] [place] [address]- 6774 Apr, [facility] [place] [facility] [address] [id number], [place] [address]- 5177 Apr, [facility] [place] [facility] [address] [id number], [place] [address]- 2084 Apr, [facility] [place] [facility] [address] [id number] [place] [address]- 8386 Apr, [facility] [place] [facility] [address] [id number] [place] [address]- 3568 Apr, [facility] [place] [facility] [address] [id number] [place] [address]- 9122 Apr, [facility] [place] [facility] [address] [id number] [place] [address]- 1381 Mar, [facility] [place] [facility] [address] [id number] [place] [address]- 3226 24 Mar, 2014 [facility] [place] [facility] [address] [id number] [place] [address]- 8120 Feb, [facility] [place] [facility] [address] [id number] [place] [address]- 3265 Feb, 2013 [facility] [place] [facility] [address] [id number] [place] [address] 2542 Feb, 2013 [facility] [place] [facility] [address] [id number] [place] [address]- 2356 Feb, [facility] [place] [facility] [address] [id number] [place] [address]- 3179 Feb, [facility] [place] [facility] [address] [id number] [place] [address]- 8998 Feb, 2013 [facility] [place] [facility] [address] [id number] [place] [address]- 3711 Feb, [facility] [place] [facility] [address] [id number] [place] [address]- 4039 Feb, [facility] [place] [facility] [address] [id number] [place] [address]- 3437 Feb, [facility] [place] [facility] [address] [id number] [place] [address] 2544 Feb, [facility] [place] [facility] [address] [id number] [place] [address]- 4685 Jan, [facility] [place] [facility] [address] [id number] [place] [address]- 0301 Jan, [facility] [place] [facility] [address] [id number] [place] [address]- 5054 Jan, [facility] [place] [facility] [address] [id number] [place] [address]- 1760 Jan, [facility] [place] [facility] [address] [id number] [place] [address]- 2687 Jan, [facility] [place] [facility] [address] [id number] [place] [address]- 2879 Jan, [facility] [place] [facility] [address] [id number] [place] [address]- 8714 Jan, [facility] [place] [facility] [address] [id number] [place] [address]- 7304 Jan, [facility] [place] [facility] [address] [id number] [place] [address]- 2857 Jan, [facility] [place] [facility] [address] [id number] [place] [address]- 3266 Jan, [facility] [place] [facility] [address] [id number] [place] [address]- 4036 Jan, [facility] [place] [facility] [address] [id number] [place] [address]- 3382 Jan, [facility] [place] [facility] [address] [id number] [place] [address]- 2476 Jan, [facility] [place] [facility] [address] [id number] [place] [address]- 8325 Dec, [facility] [place] [facility] [address] [id number] [place] [address]- 8074 Dec, [facility] [place] [facility] [address] [id number] [place] [address]- 6760 Dec, [facility] [place] [facility] [address] [id number] [place] [address]- 6043 Dec, [facility] [place] [facility] [address] [id number] [place] [address]- 6851 Dec, [facility] [place] [facility] [address] [id number] [place] [address]- 4328 Dec, [facility] [place] [facility] [address] [id number] [place] [address]- 3489 Dec, [facility] [place] [facility] [address] [id number] [place] [address]- 0234 Dec, [facility] [place] [facility] [address] [id number] [place] [address]- 0367 Dec, [facility] [place] [facility] [address] [id number] [place] [address]- 2781 Dec, [facility] [place] [facility] [address] [id number] [place] [address]- 8658 Dec, [facility] [place] [facility] [address] [id number] [place] [address]- 2939 Dec, [facility] [place] [facility] [address] [id number] [place] [address]- 4911 Dec, [facility] [place] [facility] [address] [id number] [place] [address]- 6769 Dec, [facility] [place] [facility] [address] [id number] [place] [address]- 3922 Nov, [facility] [place] [facility] [address] [id number] [place] [address]- 5063 Nov, [facility] [place] [facility] [address] [id number] [place] [address]- 1499 Nov, [facility] [place] [facility] [address] [id number] [place] [address]- 6627 Nov, [facility] [place] [facility] [address] [id number] [place] [address]- 4184 Nov, [facility] [place] [facility] [address] [id number] [place] [address]- 5046 Nov, [facility] [place] [facility] [address] [id number] [place] [address]- 3694 Nov, [facility] [place] [facility] [address] [id number] [place] [address]- 9882 Nov, [facility] [place] [facility] [address] [id number] [place] [address]- 5908 October, [facility] [address] [id number] [place] [address]- 3426 October, [facility] [address] [id number] [place] [address]- 6774 October, [facility] [address] [id number] [place] [address]- 6655 October, [facility] [address] [id number] [place] [address]- 2533 October, [facility] [address] [id number] [place] [address]- 8747 October, [facility] [address] [id number] [place] [address]- 1410 October, [facility] [address] [id number] [place] [address]- 6610 October, [facility] [address] [id number] [place] [address]- 1444 October, [facility] [address] [id number] [place] [address]- 7986 October, [facility] [address] [id number] [place] [address]- 4994 October, [facility] [address] [id number] [place] [address]- 1178 October, [facility] [address] [id number] [place] [address]- 8941 October, [facility] [place] [facility] [address] [id number] [place] [address]- 2734 October, [facility] [place] [facility] [address] [id number] [place] [address]- 5914 October, [facility] [place] [facility] [address] [id number] [place] [address]871 October, [facility] [place] [facility] [address] [id number] [place] [address]- 8145 Sep, [facility] [place] [facility] [address] [id number] [place] [address]- 2035 Sep, [facility] [place] [facility] [address] [id number] [place] [address]- 1673 Sep, [facility] [place] [facility] [address] [id number] [place] [address]- 5316 Sep, [facility] [place] [facility] [address] [id number] [place] [address]- 0834 Sep, [facility] [place] [facility] [address] [id number] [place] [address]- 4552 Sep, [facility] [place] [facility] [address] [id number] [place] [address]- 8727 Sep, [facility] [place] [facility] [address] [id number] [place] [address]- 0049 Sep, [facility] [place] [facility] [address] [id number] [place] [address]- 2524 Sep, [facility] [place] [facility] [address] [id number] [place] [address]- 0491 Sep, [facility] [place] [facility] [address] [id number] [place] [address]- 9189 Sep, [facility] [place] [facility] [address] [id number] [place] [address]- 6452 Sep, [facility] [place] [facility] [address] [id number] [place] [address]- 2354 Sep, [facility] [place] [facility] [address] [id number] [place] [address]- 2528 Sep, [facility] [place] [facility] [address] [id number] [place] [address]- 7219 Sep, [facility] [place] [facility] [address] [id number], [place] [address]- 9589 Sep, [facility] [place] [facility] [address] [facility] [id number] [place] [address]- 7234 Sep, [facility] [place] [facility] [address] [facility] [id number] [place] [address]- 8853 Sep, [facility] [place] [facility] [address] [facility] [id number] [place] [address]- 6074 Sep, [facility] [place] [facility] [address] [facility] [id number] [place] [address]- 2248 Aug, [facility] [place] [facility] [address] [facility] [id number] [place] [address]- 3010 Aug, [facility] [place] [facility] [address] [facility] [id number] [place] [address]- 1072 Aug, [facility] [place] [facility] [address] [id number] [place] [address]- 3295 Aug, [facility] [place] [facility] [address] [facility] [id number] [place] [address]- 1456 Jul, [facility] [place] [facility] [address] [id number] [place] [address]- 2111 Jul, [facility] [place] [facility] [address] [id number] [place] [address]- 3318 Jul, [facility] [place] [facility] [address] [id number] [place] [address]- 5193 Jul, [facility] [place] [facility] [address] [facility] [id number], [place] [address]- 8686 Jul, [facility] [place] [facility] [address] [facility] [id number] [place] [address]- 6605 Jul, [facility] [place] [facility] [address] [facility] [id number] [place] [address]- 8229 Jul, [facility] [place] [facility] [address] [id number] [place] [address]- 2645 Jul, [facility] [place] [facility] [address] [id number] [place] [address]- 6584 Jul, [facility] [place] [facility] [address] [id number] [place] [address]- 2680 Jul, [facility] [place] [facility] [address] [id number] [place] [address]- 8969 Jul, [facility] [place] [facility] [address] [id number] [place] [address]- 6661 Jul, [facility] [place] [facility] [address] [id number] [place] [address]- 3593 Jun, [facility] [place] [facility] [address] [id number] [place] [address]- 2589 Jun, [facility] [place] [facility] [address] [id number] [place] [address]- 8814 Jun, [facility] [place] [facility] [address] [id number] [place] [address] Jun, [facility] [place] [facility] [address] [id number] [place] [address] Jun, [facility] [place] [facility] [address] [id number] [place] [address] Jun, [facility] [place] [facility] [address] [id number], [place] [address] May, [facility] [place] [facility] [address] [id number] [place] [address] May, [facility] [place] [facility] [address] [id number] [place] [address] Apr, [facility] [place] [facility] [address] [id number] [place] [address] Apr, [facility] [place] [facility] [address] [id number] [place] [address] Apr, [facility] [place] [facility] [address] [id number] [place] [address] 8412 19 Apr, 2012 [facility] [place] [facility] [address] [id number] [place] [address] 18 Apr, 2013 [facility] [place] [facility] [address] [id number] [place] [address] 18 Apr, 2013 [facility] [place] [facility] [address] [id number] [place] [address]- 7197 17 Apr, 2013 [facility] [place] [facility] [address] [id number] [place] [address] 8477 15 Apr, 2013 [facility] [place] [facility] [address] [id number] [place] [address]- 0946 15 Apr, 2013 [facility] [place] [facility] [address] [id number] [place] [address]- 3980 15 Apr, 2013 [facility] [place] [facility] [address] [id number] [place] [address] 8550 15 Apr, 2013 [facility] [place] [facility] [address] [id number] [place] [address] 48[address] Apr, [facility] [place] [facility] [address] [id number] [place] [address]366 Apr, [facility] [place] [facility] [address] [facility] [id number] [place] [address] 8895 31 Mar, 2013 [facility] [place] [facility] [address] [id number] [place] [address]- 8837 31 Mar, 2013 [facility] [place] [facility] [address] [id number], [place] [address] 25 Mar, 2013 [facility] [place] [facility] [address] [id number] [place] [address]- 7949 25 Mar, 2013 [facility] [place] [facility] [address] [id number] [place] [address]- 4307 17 Mar, 2013 [facility] [place] [facility] [address] [id number], [place] [address] 17 Mar, 2013 [facility] [place] [facility] [address] [id number] [place] [address]- 3897 14 Mar, 2013 [facility] [place] [facility] [address] [id number] [place] [address]- 3553 14 Mar, 2013 [facility] [place] [facility] [address] [id number] [place] [address]- 5689 11 Mar, 2013 [facility] [place] [facility] [address] [id number] [place] [address]- 2701 11 Mar, 2013 [facility] [place] [facility] [address] [id number] [place] [address]- 9235 02 Mar, 2013 [facility] [place] [facility] [address] [id number] [place] [address]- 0356 30 Feb, 2013 [facility] [place] [facility] [address] [id number] [place] [address] 9616 28 Feb, 2013 [facility] [place] [facility] [address] [id number] [place] [address]- 8535 27 Feb, 2013 [facility] [place] [facility] [address] [id number] [place] [address]- 4653 27 Feb, 2013 [facility] [place] [facility] [address] [id number] [place] [address]378 20 Feb, 2013 [facility] [place] [facility] [address] [id number] [place] [address] 8002 10 Feb, 2013 [facility] [place] [facility] [address] [id number] [place] [address] Jan, [facility] [place] [facility] [address] [id number] [place] [address] 1320 Jan, [facility] [place] [facility] [address] [id number] [place] [address] 230[address] Dec, [facility] [place] [facility] [address] [id number] [place] [address] 2024 Dec, [facility] [place] [facility] [address] [id number] [place] [address]- [address]46 Dec, [facility] [address] [id number] [place] [address]- [address] Dec, [facility] [place] [facility] [address] [id number] [place] [address]- 8362 Nov, [facility] [place] [facility] [address] [id number] [place] [address]- 75[address] Nov, [facility] [place] [facility] [address] [id number] [place] [address]- [address] Nov, [facility] [place] [facility] [address] [id number] [place] [address] 18[address] October, [facility] [place] [facility] [address] [id number] [place] [address]- 1209 October, [facility] [address] [id number] [place] [address]- 4[address] October, [facility] [place] [facility] [address] [id number] [place] [address]- 6759 October, [facility] [place] [facility] [address] [id number] [place] [address]- 0117 October, [facility] [place] [facility] [address] [id number] [place] [address]- 6[address] Sep, [facility] [place] [facility] [address] [id number] [place] [address]- [address]138 Sep, [facility] [place] [facility] [address] [id number] [place] [address]- 6892 Aug, [facility] [place] [facility] [address] [id number] [place] [address]- 7928 15 Aug, 2012 [facility] [place] [facility] [address] [id number] [place] [address] 0961 Aug, [facility] [place] [facility] [address] [id number] [place] [address]- 0397 Aug, [facility] [place] [facility] [address] [id number] [place] [address]- 0811 Aug, [facility] [address] [id number] [place] [address]- 57[address] Jul, [facility] [place] [facility] [address] [id number] [place] [address]- 2186 Jul, [facility] [address] [id number] [place] [address]- 6866 Jul, [facility] [place] [facility] [address] [id number] [place] [address]- 9096 Jul, [facility] [address] [id number] [place] [address]- 8761 Jun, [facility] [address] [id number] [place] [address] Jun, [facility] [address] [id number] [place] [address] Jun, [facility] [address] [id number] [place] [address] Jun, [facility] [address] [id number] [place] [address] Jun, [facility] [address] [id number] [place] [address] Jun, [facility] [address] [id number] [place] [address] Jun, [facility] [address] [id number] [place] [address] Jun, [facility] [place] [facility] [address] [id number] [place] [address] Jun, [facility] [place] [facility] [address] [id number] [place] [address] Jun, [facility] [place] [facility] [address] [id number] [place] [address] Jun, [facility] [place] [facility] [address] [id number] [place] [address] May, [facility] [place] [facility] [address] [id number] [place] [address] May, [facility] [place] [facility] [address] [facility] [id number] [place] [address] Apr, [facility] [place] [facility] [address] [id number] [place] [address] Apr, [facility] [place] [facility] [address] [id number] [place] [address] Mar, [facility] [place] [facility] [address] [id number] [place] [address] Mar, [facility] [place] [facility] [address] [id number] [place] [address] Mar, [facility] [place] [facility] [address] [id number] [place] [address] Mar, [facility] [place] [facility] [address] [id number] [place] [address] Mar, [facility] [place] [facility] [address] [facility] [id number], [place] [address] Mar, [facility] [place] [facility] [address] [id number], [place] [address] Mar, [facility] [place] [facility] [address] [id number], [place] [address] Mar, [facility] [place] [facility] [address] [id number] [place] [address] Mar, [facility] [place] [facility] [address] [facility] [id number], [place] [address] Feb, [facility] [place] [facility] [address] [facility] [id number], [place] [address] Jan, [facility] [place] [facility] [address] [id number] [place] [address] Jan, [facility] [place] [facility] [address] [id number] [place] [address] 9433 Dec, [facility] [place] [facility] [address] [id number] [place] [address] Dec, [facility] [place] [facility] [address] [id number] [place] [address] 1191 Dec, [facility] [place] [facility] [address] [id number] [place] [address] Nov, [facility] [place] [facility] [address] [id number] [place] [address] Nov, [facility] [place] [facility] [address] [id number] [place] [address] Nov, [facility] [place] [facility] [address] [id number] [place] [address] Nov, [facility] [place] [facility] [address] [id number] [place] [address] October, [facility] [place] [facility] [address] [id number] [place] [address] October, [facility] [place] [facility] [address] [facility] [id number] [place] [address] Sep, [facility] [place] [facility] [address] [id number] [place] [address] Sep, [facility] [place] [facility] [address] [id number] [place] [address] Aug, [facility] [place] [facility] [address] [id number] [place] [address] Jul, [facility] [place] [facility] [address] [id number] [place] [address] Jul, [facility] [place] [facility] [address] [id number] [place] [address]255 Jul, [facility] [place] [facility] [address] [id number] [place] [address] Jul, [facility] [place] [facility] [address] [id number] [place] [address] Jun, [facility] [place] [facility] [address] [id number] [place] [address] 15 May, 2011 [facility] [place] [facility] [address] [id number] [place] [address] 15 May, 2011 [facility] [place] [facility] [address] [id number] [place] [address] 15 May, 2011 [facility] [place] [facility] [address] [id number] [place] [address]694 May, [facility] [place] [facility] [address] [id number] [place] [address] 08 May, 2011 [facility] [place] [facility] [address] [id number], [place] [address] 14 Apr, 2011 [facility] [place] [facility] [address] [id number] [place] [address] 14 Apr, 2011 [facility] [place] [facility] [address] [facility] [id number], [place] [address] 14 Apr, 2011 [facility] [place] [facility] [address] [id number], [place] [address] Apr, [facility] [place] [facility] [address] [id number], [place] [address] 02 Apr, 2011 [facility] [place] [facility] [address] [id number], [place] [address] Mar, [facility] [place] [facility] [address] [id number], [place] [address] 25 Mar, 2011 [facility] [place] [facility] [address] [facility] [id number], [place] [address] 14 Mar, 2011 [facility] [place] [facility] [address] [id number], [place] [address]- [address] 14 Mar, 2011 [facility] [id number], [place] [address] 13 Mar, 2011 [facility] [id number] [address] [address] Mar, [facility] [id number], [place] [address] Mar, [facility] [id number], [place] [address] Mar, [facility] [id number] [place] [address] Feb, [facility] [id number] [place] [address] May, [facility] [id number] [place] [address] May, [facility] [id number], [place] [address] May, [facility] [id number], [place] [address] Apr, [facility] [id number], [place] [address] Mar, IMMUNIZATIONS No Known Immunizations SOCIAL HISTORY Never Assessed REASON FOR VISIT xanax refill PLAN OF CARE VITAL SIGNS MEDICATIONS Medication Instructions Dosage Frequency Start Date End Date Duration Status Alprazolam 0.25 MG Orally daily 1 tablet 24h Nov, 30 days Active Alprazolam 2 MG Orally part of taper 1 tablet mornign and 0.5 tablet night 30 days Active RESULTS No Results PROCEDURES No Known procedures INSTRUCTIONS MEDICATIONS ADMINISTERED No Known Medications MEDICAL (GENERAL) HISTORY Type Description Date Medical History mycoplasma Medical History Essential hypertension, benign Medical History Other and unspecified hyperlipidemia Medical History Chest pain, unspecified- referred to Dr. Tineo, niravl echo 2014 Medical History Muscle weakness (generalized)- neg CALLUM, nml MG panel Surgical History hysterectomy - partial - still has ovaries 2004 Surgical History cholecystectomy 1997 Surgical History Right breast duct clearing 2011 Hospitalization History surgeries Hospitalization History pneumonia Hospitalization History inpatient treatment, [facility] and [facility] PPD, dx bipolar mood disorder type I 2000 Hospitalization History inpatient BH, [facility] 2007
--- OUTSIDE RECORDS SUMMARY | 2018-08-19 09:17 | XMS REPORT ---
Author Author SOFIA WENDI Organization [facility] Address [address] [place] [address] Care Team Providers Care Senior Media Buyer Name Role Phone SOFIAMARIA EUGENIA ELIZABETHHANY Unavailable PROBLEMS Type Condition ICD9-CM Code NJK22-HY Code Onset Dates Condition Status SNOMED Code Problem Mixed hyperlipidemia E78.2 Active 158266787 Problem Vitamin D deficiency E55.9 Active 68727919 Problem Essential hypertension I10 Active 01030405 Problem Mild intermittent asthma without complication J45.20 Active 924426779 Problem Generalized anxiety disorder F41.1 Active 17274315 Problem Gastroesophageal reflux disease, esophagitis presence not specified K21.9 Active 150054084 Problem Bipolar disorder, current episode mixed, moderate F31.62 Active 473972532 Problem Bipolar disorder F31.9 Active 36773333 Problem Panic disorder F41.0 Active 441626402 Problem Low back pain with sciatica, sciatica laterality unspecified, unspecified back pain laterality, unspecified chronicity M54.40 Active 249420730 Problem Acute right-sided low back pain with right-sided sciatica M54.41 Active 44020558 Problem Excessive thirst R63.1 Active 62414980 Problem Concussion without loss of consciousness, initial encounter S06.0X0A Active 81004774 Problem Primary insomnia F51.01 Active 717333939 Problem Anxiety F41.9 Active 23527931 Problem Hematuria R31.9 Active 63105982 Problem Hot flashes R23.2 Active 812479099 Problem Multiple fractures T07.XXXA Active 950541873 Problem Nausea R11.0 Active 960069950 Problem Hospital discharge follow-up Z09 Active 115638764 Problem Breast tenderness N64.4 Active 83387417 Problem Depression F32.9 Active 14981264 Problem Hidradenitis suppurativa L73.2 Active 49429362 Problem History of IBS Z87.19 Active 06944945604506 Problem Localized edema R60.0 Active 398785488 Problem Posttraumatic stress disorder F43.10 Active 23157239 Problem Genital herpes simplex, unspecified site A60.00 Active 10903496 Problem Tobacco use Z72.0 Active 961417518 ALLERGIES No Information ENCOUNTERS Encounter Location Date Diagnosis [facility] [id number] [place] [address] 94884- 8456 Mar, [facility] [id number] [place] [address] 26900- 4807 Feb, [facility] [id number] [place] [address] 94124- 1498 Feb, Panic disorder F41.0 ; Bipolar disorder, current episode mixed, moderate F31.62 and Generalized anxiety disorder F41.1 [place] [id number] [place] [address] 17057- 3476 Feb, Panic disorder F41.0 [facility] [id number] [place] [address] 49250- 6614 Jan, Genital herpes simplex, unspecified site A60.00 [facility] [id number] [place] [address] 14920- 5894 Jan, Panic disorder F41.0 [place] [id number] [place] [address] 06786- 1290 Dec, Diaphoresis R61 and Excessive thirst R63.1 [facility] [address] [place] [address] 13366- 8374 Dec, Panic disorder F41.0 ; Bipolar disorder, current episode mixed, moderate F31.62 and Generalized anxiety disorder F41.1 [facility] [address] [address] 8020 Dec, Panic disorder F41.0 [facility] [address] [place] [address] 62533- 1673 Nov, Panic disorder F41.0 [facility] [address] [place] [address] 95395- 9459 Nov, Panic disorder F41.0 ; Generalized anxiety disorder F41.1 and Bipolar disorder, current episode mixed, moderate F31.62 [place] [id number] [place] [address] 12533- 9852 Nov, Panic disorder F41.0 [place] [id number] [place] [address] 85365- 6819 Nov, Panic disorder F41.0 [place] [address] 17192- 3274 October, Panic disorder F41.0 [place] [id number] [place] [address] 58258- 1694 October, Panic disorder F41.0 ; Generalized anxiety disorder F41.1 and Bipolar disorder, current episode mixed, moderate F31.62 [place] [id number] [place] [address] 97793- 8594 October, Panic disorder F41.0 [place] [id number] [place] [address] 50439- 2667 Sep, Hospital discharge follow-up Z09 ; Concussion without loss of consciousness, initial encounter S06.0X0A and Nausea R11.0 [place] [id number] [place] [address] 40964- 9290 Sep, [place] [id number] [place] [address] 58439- 9142 Sep, Panic disorder F41.0 [place] [id number] [place] [address] 50944- 7008 Sep, [place] [id number] [place] [address] 46305- 3202 Sep, Well woman exam with routine gynecological exam Z01.419 ; Multiple fractures T07.XXXA ; Hot flashes R23.2 ; Essential hypertension I10 ; Mixed hyperlipidemia E78.2 ; Genital herpes simplex, unspecified site A60.00 ; Alkaline phosphatase elevation R74.8 ; Dysuria R30.0 ; Vitamin D deficiency E55.9 ; Tobacco use Z72.0 ; High risk sexual behavior Z72.51 and Encounter for immunization Z23 [place] [id number] [place] [address] 19618- 4689 Aug, Panic disorder F41.0 ; Generalized anxiety disorder F41.1 and Bipolar disorder, current episode mixed, moderate F31.62 [place] [id number] [place] [address] 94114- 1020 Aug, [place] [address] 29033- 4012 Jul, Panic disorder F41.0 ; Generalized anxiety disorder F41.1 and Bipolar disorder, current episode mixed, moderate F31.62 [place] [id number] [place] [address] 04957- 7976 Jul, [place] [address] 05927- 7641 Jul, [place] [id number] [place] [address] 93015- 8710 Jul, Effusion, right knee M25.461 ; Acute pain of right knee M25.561 and Acute pain of left knee M25.562 [place] [address] [place] [address] 63773- 6325 Jun, Bipolar disorder, current episode mixed, moderate F31.62 ; Generalized anxiety disorder F41.1 and Panic disorder F41.0 [place] [id number] [place] [address] 38609- 6571 May, Bipolar disorder, current episode mixed, moderate F31.62 ; Generalized anxiety disorder F41.1 and Panic disorder F41.0 [place] [id number] [place] [address] 06718- 8653 May, Bipolar disorder, current episode mixed, moderate F31.62 [place] [id number] [place] [address] 99949- 3037 May, Bipolar disorder, current episode mixed, moderate F31.62 [facility] [id number] [place] [address] 19657- 8814 Apr, Bipolar disorder, current episode mixed, moderate F31.62 ; Generalized anxiety disorder F41.1 and Panic disorder F41.0 [facility] [id number] [place] [address] 99788- 9235 17 Mar, 2017 [facility] [address] 597089- 1258 Mar, Bipolar disorder, current episode mixed, moderate F31.62 ; Generalized anxiety disorder F41.1 and Panic disorder F41.0 [place] [id number] [place] [address] 60208- 5236 27 Feb, 2017 [place] [id number] [place] [address] 20897- 2451 Feb, Posttraumatic stress disorder F43.10 [facility] [address] 64056- 4332 20 Feb, 2017 Gastroesophageal reflux disease, esophagitis presence not specified K21.9 [facility] [address] 69182- 9259 13 Feb, 2017 [facility] [id number] [place] [address] 12064- 5391 06 Feb, 2017 Knee pain, right anterior M25.561 [facility] [id number] [place] [address] 52828- 5728 05 Feb, 2017 HSV (herpes simplex virus) infection B00.9 [facility] [id number] [place] [address] 65140- 2788 Feb, [facility] [id number] [place] [address] 10079- 1818 Jan, [facility] [id number] [place] [address] 65053- 7468 Jan, Posttraumatic stress disorder F43.10 [facility] [id number] [place] [address] 48189- 6159 Jan, Foot pain, left M79.672 [facility] [id number] [place] [address] 91804- 9877 Jan, [facility] [id number] [place] [address] 64129- 8857 Jan, Lumbar radiculopathy, acute M54.16 ; Muscle spasm of back M62.830 and Right hip pain M25.551 [facility] [id number] [place] [address] 17055- 7830 Jan, Lumbar radiculopathy, acute M54.16 [place] [id number] [place] [address] 80724- 3453 Jan, [place] [address] 13909- 2261 Jan, [facility] [id number] [place] [address] 27943- 6254 Dec, Lumbar radiculopathy, acute M54.16 ; Acute renal insufficiency N28.9 and Muscle spasm of back M62.830 [facility] [id number] [place] [address] 90154- 0539 Dec, [facility] [id number] [place] [address] 43642- 4882 Dec, [facility] [id number] [place] [address] 62372- 0394 Dec, [facility]ALK [facility] [id number] [place] [address] 75602 -7151 Dec, Low back pain with sciatica, sciatica laterality unspecified, unspecified back pain laterality, unspecified chronicity M54.40 and Acute right-sided low back pain with right-sided sciatica M54.41 [facility] [id number] [place] [address] 92163- 1141 Dec, Posttraumatic stress disorder F43.10 [facility] [id number] [place] [address] 56485- 4231 11 Dec, 2016 [facility] [id number] [place] [address] 13471- 7202 Dec, Pain in right thigh M79.651 and Acute right-sided low back pain without sciatica M54.5 [facility] [id number] [place] [address] 54973- 6876 Dec, Posttraumatic stress disorder F43.10 and Major depressive disorder, recurrent episode with anxious distress F33.9 [facility] [id number] [place] [address] 25554 -3186 Dec, [facility] [id number] [place] [address] 07987- 0684 Nov, [facility] [id number] [place] [address] 15600- 6688 October, [facility] [id number] [place] [address] 62532- 1568 October, [facility] [id number] [place] [address] 67812- 5822 October, Knee pain, right anterior M25.561 [facility] [id number] [place] [address] 84505- 2596 October, Knee pain, right anterior M25.561 [facility] [id number] [place] [address] 58031- 9514 October, [facility] [id number] [place] [address] 04342- 5695 October, [facility] [id number] [place] [address] 81245- 8768 October, [facility] [id number] [place] [address] 96419 -1943 Sep, [facility] [address] [address]- 6662 Sep, [facility] [id number] [place] [address] 26299- 6333 17 Sep, 2016 Essential hypertension I10 [place] [id number] [place] [address] 13935- 9397 11 Sep, 2016 Essential hypertension I10 [place] [id number] [place] [address] 83852- 0029 Sep, [place] [id number] [place] [address] 60100- 0220 Sep, Posttraumatic stress disorder F43.10 and Major depressive disorder, recurrent episode with anxious distress F33.9 [place] [id number] [place] [address] 12517- 4602 07 Sep, 2016 Multiple fractures T14.8 ; Alkaline phosphatase elevation R74.8 and Vitamin D deficiency E55.9 [place] [id number] [place] [address] 35734- 2708 Sep, [place] [id number] [place] [address] 37209- 1586 Sep, Elevated serum creatinine R79.89 ; Fracture of foot, left, closed, initial encounter S92.902A and Alkaline phosphatase elevation R74.8 [place] [address] [place] [address] 87507- 5547 Sep, Elevated serum creatinine R79.89 and Essential hypertension I10 [place] [id number] [place] [address] 53844- 8682 Sep, [place] [id number] [place] [address] 95587- 9132 Aug, Gastroesophageal reflux disease, esophagitis presence not specified K21.9 [facility] [address] [place] [address] 85434- 8651 Aug, Essential hypertension I10 ; Fracture of foot, left, closed , initial encounter S92.902A and Alkaline phosphatase elevation R74.8 [facility] [id number] [place] [address] 24905- 7782 17 Jul, 2016 Genital herpes simplex, unspecified site A60.00 [facility] [id number] [place] [address] 41091- 9566 Jul, Essential hypertension I10 [facility] [address] 83996- 6529 Jun, Cough R05 and Wheezing R06.2 [place] [id number] [place] [address] 41150- 7488 Jun, Essential hypertension I10 [place] [address] 54455- 7851 May, Essential hypertension I10 [place] [address] 68876- 0181 May, Posttraumatic stress disorder F43.10 and Major depressive disorder, recurrent episode with anxious distress F33.9 [place] [id number] [place] [address] 97322- 4019 Apr, [place] [id number] [place] [address] 81138- 6139 Apr, [facility] [id number] [place] [address] 85940- 0360 Apr, [facility] [id number] [place] [address] 65449- 2258 Mar, [facility] [id number] [place] [address] 77266- 5797 Feb, [place] [id number] [place] [address] 50421- 6180 Jan, [facility] [id number] [place] [address] 53454- 0180 Jan, Essential hypertension I10 ; Mixed hyperlipidemia E78.2 ; Gastroesophageal reflux disease, esophagitis presence not specified K21.9 ; Mild intermittent asthma without complication J45.20 ; Hidradenitis suppurativa L73.2 ; Migraine without status migrainosus, not intractable, unspecified migraine type G43.909 ; Genital herpes simplex, unspecified site A60.00 and Closed traumatic minimally displaced fracture of metatarsal bone of left foot S92.302A [facility] WALK [facility] [place] [address] 82984 -8802 Jan, Localized edema R60.0 [place] [address] 01603- 7436 Dec, [place] [address] 42630- 3401 Dec, [place] [address] 27423- 7775 Dec, [facility] WALK [facility] [place] [address] 15622 -6343 Dec, Cough R05 ; Tobacco dependence F17.200 and Costochondritis , acute M94.0 [place] [address] 67144- 2438 Dec, Major depression, recurrent F33.9 ; Bipolar disorder, unspecified F31.9 and Posttraumatic stress disorder F43.10 [place] [address] 98891- 9578 Nov, [place] [address] 83659- 0080 Nov, [place] [address] 10840- 6148 October, [facility] [address] 93454 -5025 October, Acute upper respiratory infection, unspecified J06.9 [place] [address] 41310- 0037 October, [facility] [address] [address]- 0568 Sep, Bipolar affective disorder, remission status unspecified F31.9 and Post-traumatic stress disorder F43.10 [facility] [address] [address]- 2500 Sep, Bipolar disorder, unspecified F31.9 ; Posttraumatic stress disorder F43.10 and Major depression, recurrent F33.9 [facility] [id number] [place] [address] 42199- 7089 Aug, Edema R60.9 ; Fatigue R53.83 and Polydipsia R63.1 [facility] [id number] [place] [address] 31313- 8571 Aug, [facility] [id number] [place] [address] 28732- 2303 Aug, [facility] [id number] [place] [address] 47218- 2364 Jul, [facility] [id number] [place] [address] 10750- 2040 Jul, [facility] [id number] [place] [address] 90963- 6139 Jun, [facility] [id number] [place] [address] 18914- 9507 Jun, [facility] [id number] [place] [address] 35993- 2222 Jun, [facility] [id number] [place] [address] 71283- 4762 Jun, [facility] [id number] [place] [address] 12158- 1855 May, Mixed hyperlipidemia E78.2 [facility] [id number] [place] [address] 89231- 9582 May, Well woman exam Z01.419 ; History of herpes simplex infection Z86.19 ; Papanicolaou smear Z12.4 ; History of depression Z86.59 ; History of anxiety Z86.59 ; Lipoma of other specified sites D17.79 ; Hidradenitis suppurativa L73.2 ; Routine screening for STI (sexually transmitted infection) Z11.3 and Tobacco use Z72.0 [place] [address] 21284- 3333 May, Hematuria R31.9 ; Essential hypertension I10 ; Pure hypercholesterolemia E78.0 and Hidradenitis L73.2 [place] [address] 50864- 7519 May, Upper respiratory symptom R09.89 and Allergic rhinitis J30.[address] 40391- 0242 May, [place] [address] 16713- 0031 May, [place] [address] 34874- 5116 May, Bipolar disorder, unspecified F31.9 ; Posttraumatic stress disorder F43.10 and Major depression, recurrent F33.9 [place] [id number] [place] [address] 79447- 0214 May, [place] [address] 31233- 7985 May, [place] [id number] [place] [address] 41306- 1246 Apr, [place] [address] 15113- 0422 Apr, [place] [id number] [place] [address] 48073- 9481 Mar, [place] [address] 28742- 1641 Mar, [facility] [address] [address]- 9747 Mar, [facility] [id number] [place] [address] 726599- 3730 18 Feb, 2015 Major depressive disorder, recurrent episode, moderate 296.32 and Post traumatic stress disorder (PTSD) 309.81 [facility] [id number] [place] [address] 395139- 9000 Feb, [facility] [id number] [place] [address] 455238- 9799 Feb, [facility] [id number] [place] [address] 48188- 0772 Jan, Cough 786.2 [facility] [id number] [place] [address] 81404- 0301 Jan, Depression, major, recurrent, moderate 296.32 and Post traumatic stress disorder (PTSD) 309.81 [facility] [address] [address]- 1002 Jan, [facility] [id number] [place] [address] 534012- 7890 Dec, [facility] [address] [address]- 2634 Dec, Generalized anxiety disorder 300.02 and Depression, major, recurrent, moderate 296.32 [facility] [address] [address]- 0112 Dec, [facility] [address] [place] [id number] [address]- 1454 Dec, High risk medication use V58.69 [facility] [address] 2374 Dec, High risk medication use V58.69 [facility] [address]- 6738 Dec, [place] [address] [place] [id number] [address]- 1426 Nov, Generalized anxiety disorder 300.02 and Major depressive disorder, recurrent episode, moderate 296.32 [facility] [address] [id number] Nov, Dental examination V72.2 [facility] [address] [id number] Nov, Dental examination V72.2 [facility] [address] [address] 2546 Nov, [facility] [id number] [place] [address] [id number] Nov, Dental examination V72.2 [facility] [id number] [place] [address] [id number] Nov, Dental examination V72.2 [facility] [address] [address]- 9676 October, Major depressive disorder, recurrent episode, moderate 296.32 and Generalized anxiety disorder 300.02 [facility] [address] [address]- 3866 October, [facility] [address] [address]- 9016 October, [facility] [address] [address]- 5656 October, [facility] [address] [address]- 8356 Sep, [facility] [id number] [address] Sep, [facility] [id number] [address] Aug, [facility] [id number] [address] Aug, [facility] [place] [facility] [address] [id number] [place] [address] 13 Aug, 2014 [facility] [place] [facility] [address] [id number] [place] [address] 13 Aug, 2014 [facility] [place] [facility] [address] [id number] [place] [address] 10 Aug, 2014 [facility] [place] [facility] [address] [id number] [place] [address] Aug, 2014 [facility] [place] [facility] [address] [id number] [place] [address] Aug, [facility] [place] [facility] [address] [id number] [place] [address] 16 Jul, 2014 [facility] [place] [facility] [address] [id number] [place] [address] Jul, 2014 [facility] [place] [facility] [address] [id number] [place] [address] Jul, 2014 [facility] [place] [facility] [address] [id number] [place] [address] Jul, 2014 [facility] [place] [facility] [address] [id number] [place] [address] Jul, 2014 [facility] [place] [facility] [address] [id number] [place] [address] Jul, 2014 [facility] [place] [facility] [address] [id number] [place] [address] Jul, 2014 [facility] [place] [facility] [address] [id number] [place] [address] Jul, 2014 [facility] [place] [facility] [address] [id number] [place] [address] Jul, 2014 [facility] [place] [facility] [address] [facility] [id number] [place] [address] Jun, [facility] [place] [facility] [address] [id number] [place] [address] 30 Jun, 2014 [facility] [place] [facility] [address] [id number] [place] [address] 1167 Jun, [facility] [place] [facility] [address] [id number] [place] [address]- 5169 Jun, [facility] [place] [facility] [address] [id number] [place] [address]- 2793 Jun, [facility] [place] [facility] [address] [id number] [place] [address]- 3965 Jun, [facility] [place] [facility] [address] [id number] [place] [address]- 5284 Jun, [facility] [place] [facility] [address] [id number] [place] [address]- 4990 Jun, [facility] [place] [facility] [address] [id number] [place] [address]- 7572 Jun, [facility] [place] [facility] [address] [id number] [place] [address]- 5035 Jun, [facility] [place] [facility] [address] [id number] [place] [address]- 1288 Jun, [facility] [place] [facility] [address] [id number] [place] [address]- 5701 Jun, [facility] [place] [facility] [address] [id number] [place] [address]- 0341 Jun, [facility] [place] [facility] [address] [id number] [place] [address]- 7410 Jun, [facility] [place] [facility] [address] [id number] [place] [address]- 1194 Jun, [facility] [place] [facility] [address] [id number] [place] [address]- 1993 Jun, [facility] [place] [facility] [address] [id number] [place] [address]- 2707 Jun, [facility] [place] [facility] [address] [id number] [place] [address]- 1949 Jun, [facility] [place] [facility] [address] [id number] [place] [address]- 1308 Jun, [facility] [place] [facility] [address] [id number] [place] [address]- 3794 Jun, [facility] [place] [facility] [address] [id number] [place] [address]- 5034 Jun, [facility] [place] [facility] [address] [id number] [place] [address]- 8216 Jun, [facility] [place] [facility] [address] [id number] [place] [address]- 0514 Jun, [facility] [place] [facility] [address] [id number] [place] [address]- 7589 Jun, [facility] [place] [facility] [address] [id number] [place] [address]- 6297 Jun, [facility] [place] [facility] [address] [id number] [place] [address]- 9393 May, [facility] [place] [facility] [address] [id number] [place] [address]- 3856 May, [facility] [place] [facility] [address] [id number] [place] [address]- 7399 May, [facility] [place] [facility] [address] [id number] [place] [address]- 9800 May, [facility] [place] [facility] [address] [id number] [place] [address]- 9824 May, [facility] [place] [facility] [address] [id number] [place] [address]- 2908 May, [facility] [place] [facility] [address] [id number] [place] [address]- 4320 May, [facility] [place] [facility] [address] [id number] [place] [address]- 8620 May, [facility] [place] [facility] [address] [id number] [place] [address]- 3502 May, [facility] [place] [facility] [address] [id number] [place] [address] May, [facility] [place] [facility] [address] [id number] [place] [address]- 7937 May, [facility] [place] [facility] [address] [id number] [place] [address]- 8198 May, [facility] [place] [facility] [address] [id number] [place] [address]- 8975 May, [facility] [place] [facility] [address] [id number] [place] [address]- 2660 May, [facility] [place] [facility] [address] [id number] [place] [address]- 6947 May, [facility] [place] [facility] [address] [id number] [place] [address]- 3538 May, [facility] [place] [facility] [address] [id number] [place] [address]- 9174 May, [facility] [place] [facility] [address] [id number] [place] [address]- 2143 May, [facility] [place] [facility] [address] [id number] [place] [address]- 8922 Apr, [facility] [place] [facility] [address] [id number], [place] [address]- 83[address] Apr, [facility] [place] [facility] [address] [id number] [place] [address]- 5073 Apr, [facility] [place] [facility] [address] [id number] [place] [address]- 0644 Apr, [facility] [place] [facility] [address] [facility] [id number] [place] [address]- 7321 Apr, [facility] [place] [facility] [address] [id number] [place] [address]- 3804 Apr, [facility] [place] [facility] [address] [id number] [place] [address]- 7661 Apr, [facility] [place] [facility] [address] [id number] [place] [address]- 1774 Apr, [facility] [place] [facility] [address] [id number] [place] [address]- 5675 Mar, [facility] [place] [facility] [address] [id number] [place] [address]- 8760 Mar, [facility] [place] [facility] [address] [id number] [place] [address]- 8562 Feb, [facility] [place] [facility] [address] [id number] [place] [address]- 4523 Feb, [facility] [place] [facility] [address] [id number] [place] [address]- 3438 Feb, [facility] [place] [facility] [address] [id number] [place] [address]- 1983 Feb, [facility] [place] [facility] [address] [id number] [place] [address]- 4627 Feb, [facility] [place] [facility] [address] [id number] [place] [address]- 7872 Feb, [facility] [place] [facility] [address] [id number] [place] [address]- 254 10 Feb, 2014 [facility] [place] [facility] [address] [id number] [place] [address]- 2541 10 Feb, 2014 [facility] [place] [facility] [address] [id number] [place] [address]- 2713 08 Feb, 2014 [facility] [place] [facility] [address] [id number] [place] [address]- 2547 08 Feb, 2014 [facility] [place] [facility] [address] [id number] [place] [address]- 2687 Jan, [facility] [place] [facility] [address] [id number] [place] [address]- 5327 Jan, [facility] [place] [facility] [address] [id number] [place] [address]- 8972 Jan, [facility] [place] [facility] [address] [id number] [place] [address]- 5624 Jan, [facility] [place] [facility] [address] [id number] [place] [address]- 0229 Jan, [facility] [place] [facility] [address] [id number] [place] [address]- 5643 Jan, [facility] [place] [facility] [address] [id number] [place] [address]- 7165 Jan, [facility] [place] [facility] [address] [id number] [place] [address]- 8341 Jan, [facility] [place] [facility] [address] [id number] [place] [address]- 0167 Jan, [facility] [place] [facility] [address] [id number] [place] [address]- 6748 Jan, [facility] [place] [facility] [address] [id number] [place] [address]- 5337 Jan, [facility] [place] [facility] [address] [id number] [place] [address]- 4116 Jan, [facility] [place] [facility] [address] [id number] [place] [address]- 8778 Jan, [facility] [place] [facility] [address] [id number] [place] [address]- 0273 Dec, [facility] [place] [facility] [address] [id number] [place] [address]- 0932 Dec, [facility] [place] [facility] [address] [id number] [place] [address]- 3451 Dec, [facility] [place] [facility] [address] [id number] [place] [address]- 9474 Dec, [facility] [place] [facility] [address] [id number] [place] [address]- 5342 Dec, [facility] [place] [facility] [address] [id number] [place] [address]- 5459 Dec, [facility] [place] [facility] [address] [id number] [place] [address]- 5260 Dec, [facility] [place] [facility] [address] [id number] [place] [address]- 5021 Dec, [facility] [place] [facility] [address] [id number] [place] [address]- 1078 Dec, [facility] [place] [facility] [address] [id number] [place] [address]- 5116 Dec, [facility] [place] [facility] [address] [id number] [place] [address]- 8321 Dec, [facility] [place] [facility] [address] [id number] [place] [address]- 2229 Dec, [facility] [place] [facility] [address] [id number] [place] [address]- 7147 Dec, [facility] [place] [facility] [address] [id number] [place] [address]- 5053 Dec, [facility] [place] [facility] [address] [id number] [place] [address]- 8562 Nov, [facility] [place] [facility] [address] [id number] [place] [address]- 0175 Nov, [facility] [place] [facility] [address] [id number] [place] [address]- 8790 Nov, [facility] [place] [facility] [address] [id number] [place] [address]- 4241 Nov, [facility] [place] [facility] [address] [id number] [place] [address]- 9122 Nov, [facility] [place] [facility] [address] [id number] [place] [address]- 4942 Nov, [facility] [place] [facility] [address] [id number] [place] [address]- 4731 Nov, [facility] [place] [facility] [address] [id number] [place] [address]- 3956 Nov, [facility] [place] [facility] [address] [id number] [place] [address]- 9610 October, [facility] [place] [facility] [address] [id number] [place] [address]- 3402 October, [facility] [place] [facility] [address] [id number] [place] [address]- 2784 October, [facility] [place] [facility] [address] [id number] [place] [address]- 9196 October, [facility] [place] [facility] [address] [id number] [place] [address]- 1031 October, [facility] [place] [facility] [address] [id number] [place] [address]- 0754 October, [facility] [place] [facility] [address] [id number] [place] [address]- 4609 October, [facility] [place] [facility] [address] [id number] [place] [address]- 6933 October, [facility] [place] [facility] [address] [id number] [place] [address]- 6663 October, [facility] [place] [facility] [address] [id number] [place] [address]- 7243 October, [facility] [place] [facility] [address] [id number] [place] [address]- 1758 October, [facility] [place] [facility] [address] [id number] [place] [address]- 4366 October, [facility] [place] [facility] [address] [id number] [place] [address]- 5764 October, [facility] [place] [facility] [address] [id number] [place] [address]- 8137 October, [facility] [place] [facility] [address] [id number] [place] [address]- 5226 October, [facility] [place] [facility] [address] [id number] [place] [address]- 1895 October, [facility] [place] [facility] [address] [id number] [place] [address]- 1508 Sep, [facility] [place] [facility] [address] [id number] [place] [address]- 1650 Sep, [facility] [place] [facility] [address] [id number] [place] [address]- 4575 Sep, [facility] [place] [facility] [address] [id number] [place] [address]- 1909 Sep, [facility] [place] [facility] [address] [id number] [place] [address]- 5539 Sep, [facility] [place] [facility] [address] [id number] [place] [address]- 1365 Sep, [facility] [place] [facility] [address] [id number] [place] [address]- 8139 Sep, [facility] [place] [facility] [address] [id number] [place] [address]- 8422 Sep, [facility] [place] [facility] [address] [id number] [place] [address]- 1984 Sep, [facility] [place] [facility] [address] [id number] [place] [address]- 5606 Sep, [facility] [place] [facility] [address] [id number] [place] [address]- 9062 Sep, [facility] [place] [facility] [address] [id number] [place] [address]- 8667 Sep, [facility] [place] [facility] [address] [id number] [place] [address]- 2742 Sep, [facility] [place] [facility] [address] [id number] [place] [address]- 4741 Sep, [facility] [place] [facility] [address] [id number] [place] [address]- 1542 Sep, [facility] [place] [facility] [address] [id number] [place] [address]- 5848 Sep, [facility] [place] [facility] [address] [id number] [place] [address]- 0426 Sep, [facility] [place] [facility] [address] [id number] [place] [address]- 8284 Sep, [facility] [place] [facility] [address] [id number] [place] [address]- 1428 Sep, [facility] [place] [facility] [address] [id number] [place] [address]- 4449 Aug, [facility] [place] [facility] [address] [id number] [place] [address]- 9789 Aug, [facility] [place] [facility] [address] [id number] [place] [address]- 8606 Aug, [facility] [place] [facility] [address] [facility] [id number] [place] [address]- 1447 Aug, [facility] [place] [facility] [address] [id number] [place] [address]- 2653 Jul, [facility] [place] [facility] [address] [id number] [place] [address]- 3977 Jul, [facility] [place] [facility] [address] [id number] [place] [address]- 5698 Jul, [facility] [place] [facility] [address] [id number] [place] [address]- 9688 Jul, [facility] [place] [facility] [address] [id number] [place] [address]- 8625 14 Jul, 2013 [facility] [place] [facility] [address] [id number] [place] [address]- 4997 14 Jul, 2013 [facility] [place] [facility] [address] [id number] [place] [address]- 8214 Jul, [facility] [place] [facility] [address] [id number] [place] [address]147 Jul, [facility] [place] [facility] [address] [id number] [place] [address]- 8421 Jul, [facility] [place] [facility] [address] [id number] [place] [address]- 9847 Jul, [facility] [place] [facility] [address] [id number] [place] [address]- 8764 Jul, [facility] [place] [facility] [address] [id number] [place] [address]- 4054 Jul, [facility] [place] [facility] [address] [id number] [place] [address]- 2697 Jun, [facility] [place] [facility] [address] [id number] [place] [address]- 5447 Jun, [facility] [place] [facility] [address] [id number] [place] [address]- 0251 Jun, [facility] [place] [facility] [address] [id number] [place] [address]- 0818 Jun, [facility] [place] [facility] [address] [id number] [place] [address]- 1138 Jun, [facility] [place] [facility] [address] [id number] [place] [address]- 0326 Jun, [facility] [place] [facility] [address] [id number] [place] [address]- 5239 May, [facility] [place] [facility] [address] [id number] [place] [address]- 5892 May, [facility] [place] [facility] [address] [id number] [place] [address]- 8312 21 Apr, 2013 [facility] [address] [id number] [place] [address]- 3449 21 Apr, 2013 [facility] [address] [id number] [place] [address]- 6637 19 Apr, 2013 [facility] [address] [id number] [place] [address]- 2751 19 Apr, 2013 [facility] [address] [id number] [place] [address]- 2959 18 Apr, 2013 [facility] [address] [id number] [place] [address], [place] [address]- 1151 18 Apr, 2013 [facility] [address] [id number] [place] [address]- 8485 17 Apr, 2013 [facility] [address] [id number] [place] [address]- 8946 15 Apr, 2013 [facility] [address] [id number] [place] [address]- 2075 15 Apr, 2013 [facility] [address] [id number] [place] [address]- 6517 15 Apr, 2013 [facility] [address] [facility] [id number] [place] [address]- 2557 15 Apr, 2013 [facility] [place] [facility] [address] [id number] [place] [address]- 6528 Apr, [facility] [address] [id number], [place] [address]- 6170 Apr, [facility] [place] [facility] [address] [id number] [place] [address]- 0836 31 Mar, 2013 [facility] [place] [facility] [address] [id number] [place] [address]- 2165 Mar, [facility] [place] [facility] [address] [id number], [place] [address]- 2829 25 Mar, 2013 [facility] [place] [facility] [address] [id number] [place] [address]- 9569 25 Mar, 2013 [facility] [place] [facility] [address] [id number] [place] [address]- 7919 17 Mar, 2013 [facility] [place] [facility] [address] [id number] [place] [address]- 6784 17 Mar, 2013 [facility] [place] [facility] [address] [id number] [place] [address]- 6781 14 Mar, 2013 [facility] [place] [facility] [address] [id number] [place] [address]- 7427 14 Mar, 2013 [facility] [place] [facility] [address] [id number] [place] [address]- 2015 Mar, [facility] [place] [facility] [address] [id number] [place] [address]- 6809 Mar, [facility] [place] [facility] [address] [id number], [place] [address]- 8950 02 Mar, 2013 [facility] [place] [facility] [address] [id number] [place] [address]- 8858 30 Feb, 2012 [facility] [place] [facility] [address] [id number], [place] [address]- 0390 28 Feb, 2012 [facility] [place] [facility] [address] [id number], [place] [address]- 6918 27 Feb, 2012 [facility] [place] [facility] [address] [id number], [place] [address]- 7458 27 Feb, 2012 [facility] [place] [facility] [address] [id number] [place] [address]- 8735 20 Feb, 2012 [facility] [place] [facility] [address] [id number], [place] [address]- 3791 10 Feb, 2012 [facility] [place] [facility] [address] [id number], [place] [address]- 2081 29 Jan, 2013 [facility] [place] [facility] [address] [id number], [place] [address]- 4500 Jan, [facility] [address] [id number] [place] [address]- 9257 Dec, [facility] [address] [id number] [place] [address]- 8239 Dec, [facility] [address] [id number] [place] [address]- 5213 Dec, [facility] [address] [id number] [place] [address]- 2193 Dec, [facility] [address] [id number] [place] [address]- 1865 Nov, [facility] [address] [id number] [place] [address]- 3642 Nov, [facility] [address] [id number] [place] [address]- 0377 Nov, [facility] [address] [id number] [place] [address]- 5173 October, [facility] [address] [id number] [place] [address]- 1626 October, [facility] [address] [id number] [place] [address]- 0938 October, [facility] [address] [id number] [place] [address]- 8244 October, [facility] [place] [facility] [address] [id number] [place] [address] October, [facility] [place] [facility] [address] [id number] [place] [address] Sep, [facility] [place] [facility] [address] [id number] [place] [address] Sep, [facility] [place] [facility] [address] [id number] [place] [address] Aug, [facility] [place] [facility] [address] [id number] [place] [address] 15 Aug, 2012 [facility] [place] [facility] [address] [id number] [place] [address] Aug, [facility] [place] [facility] [address] [id number] [place] [address] 08 Aug, 2012 [facility] [place] [facility] [address] [id number] [place] [address] Aug, [facility] [place] [facility] [address] [id number] [place] [address] 18 Jul, 2012 [facility] [place] [facility] [address] [id number] [place] [address] Jul, [facility] [place] [facility] [address] [id number] [place] [address] Jul, [facility] [place] [facility] [address] [id number] [place] [address] Jul, [facility] [place] [facility] [address] [id number] [place] [address] Jun, [facility] [place] [facility] [address] [id number] [place] [address] Jun, [facility] [place] [facility] [address] [id number] [place] [address] Jun, [facility] [place] [facility] [address] [id number] [place] [address] Jun, [facility] [place] [facility] [address] [id number] [place] [address] Jun, [facility] [place] [facility] [address] [id number] [place] [address] Jun, [facility] [place] [facility] [address] [id number] [place] [address] Jun, [facility] [place] [facility] [address] [id number], [place] [address] Jun, [facility] [place] [facility] [address] [id number] [place] [address] Jun, [facility] [place] [facility] [address] [id number] [place] [address] Jun, [facility] [place] [facility] [address] [id number] [place] [address] Jun, [facility] [place] [facility] [address] [id number] [place] [address] May, [facility] [place] [facility] [address] [id number] [place] [address] May, [facility] [place] [facility] [address] [id number] [place] [address] Apr, [facility] [place] [facility] [address] [id number] [place] [address] Apr, [facility] [place] [facility] [address] [id number] [place] [address] Mar, [facility] [place] [facility] [address] [id number] [place] [address] 31 Mar, 2012 [facility] [place] [facility] [address] [id number] [place] [address] 1983 30 Mar, 2012 [facility] [place] [facility] [address] [id number], [place] [address] 30 Mar, 2012 [facility] [place] [facility] [address] [id number], [place] [address] Mar, [facility] [place] [facility] [address] [id number] [place] [address]17 17 Mar, 2012 [facility] [place] [facility] [address] [id number] [place] [address] 16 Mar, 2012 [facility] [place] [facility] [address] [id number] [place] [address] Mar, [facility] [place] [facility] [address] [id number] [place] [address] Mar, [facility] [address] [id number] [place] [address] Feb, [facility] [place] [facility] [address] [id number] [place] [address] Jan, [facility] [address] [id number] [place] [address] Jan, [facility] [address] [id number] [place] [address] Dec, [facility] [address] [id number] [place] [address] Dec, [facility] [address] [id number] [place] [address] Dec, [facility] [address] [id number] [place] [address] Nov, [facility] [address] [id number] [place] [address] Nov, [facility] [address] [id number] [place] [address] 67[address] Nov, [facility] [address] [id number] [place] [address] Nov, [facility] [place] [facility] [address] [id number] [place] [address] October, [facility] [address] [id number] [place] [address]46 October, [facility] [place] [facility] [address] [id number] [place] [address] 74[address] Sep, [facility] [place] [facility] [address] [id number] [place] [address] 2546 Sep, [facility] [address] [id number] [place] [address] Aug, [facility] [address] [id number] [place] [address]- [address] 10 Jul, 2011 [facility] [place] [facility] [address] [id number] [place] [address] 04 Jul, 2011 [facility] [place] [facility] [address] [id number] [place] [address] 97[address] Jul, [facility] [place] [facility] [address] [id number] [place] [address] 279[address] Jul, [facility] [place] [facility] [address] [id number] [place] [address]- [address]689 Jun, [facility] [place] [facility] [address] [id number] [place] [address] 15 May, 2011 [facility] [place] [facility] [address] [id number] [place] [address]44 15 May, 2011 [facility] [place] [facility] [address] [id number] [place] [address]902 15 May, 2011 [facility] [place] [facility] [address] [id number] [place] [address]- 6569 13 May, 2011 [facility] [place] [facility] [address] [facility] [id number] [place] [address]- [address]448 08 May, 2011 [facility] [place] [facility] [address] [id number], [place] [address] 14 Apr, 2011 [facility] [place] [facility] [address] [id number], [place] [address]- [address] 14 Apr, 2011 [facility] [place] [facility] [address] [id number] [place] [address]- [address]603 14 Apr, 2011 [facility] [place] [facility] [address] [id number] [place] [address]- [address] 07 Apr, 2011 [facility] [place] [facility] [address] [facility] [id number] [place] [address]- 6974 02 Apr, 2011 [facility] [place] [facility] [id number], [place] [address] Mar, [facility] [address] [facility] [id number], [place] [address]- [address] Mar, [facility] [id number], [place] [address] Mar, [facility] [address] [facility] [id number], [place] [address]- [address]74 14 Mar, 2011 [facility] [address] [facility] [id number], [place] [address] Mar, [facility] [id number] [place] [address]- [address] Mar, [facility] [address] [id number] [address] Mar, [facility] [id number] [place] [id number] Mar, [facility] [id number] [address] Feb, [facility] [id number] [address] May, [facility] [id number] [address] May, [facility] [id number] [address] May, [facility] [id number] [address] Apr, [facility] [id number] [address] Mar, IMMUNIZATIONS No Known Immunizations SOCIAL HISTORY Never Assessed REASON FOR VISIT Med Refill PLAN OF CARE VITAL SIGNS MEDICATIONS Medication Instructions Dosage Frequency Start Date End Date Duration Status Acyclovir 400 mg Orally 2 times a day TAKE ONE TABLET 12h 30 days Active RESULTS No Results PROCEDURES [...]
--- OUTSIDE RECORDS SUMMARY | 2018-08-19 09:18 | XMS REPORT ---
Author Author CURTIS GLENN Organization [facility] Address [address] [place] [address] Care Team Providers Care Preschool Adviser Name Role Phone HARSHLAURA FRANCOA Unavailable PROBLEMS Type Condition ICD9-CM Code RAG33-SB Code Onset Dates Condition Status SNOMED Code Problem Mixed hyperlipidemia E78.2 Active 788284588 Problem Vitamin D deficiency E55.9 Active 40852572 Problem Essential hypertension I10 Active 95914039 Problem Mild intermittent asthma without complication J45.20 Active 283217892 Problem Generalized anxiety disorder F41.1 Active 54277890 Problem Gastroesophageal reflux disease, esophagitis presence not specified K21.9 Active 601632485 Problem Bipolar disorder, current episode mixed, moderate F31.62 Active 486494055 Problem Bipolar disorder F31.9 Active 99373014 Problem Panic disorder F41.0 Active 795849184 Problem Low back pain with sciatica, sciatica laterality unspecified, unspecified back pain laterality, unspecified chronicity M54.40 Active 382117264 Problem Acute right-sided low back pain with right-sided sciatica M54.41 Active 46626956 Problem Excessive thirst R63.1 Active 87586734 Problem Concussion without loss of consciousness, initial encounter S06.0X0A Active 85650122 Problem Primary insomnia F51.01 Active 178058036 Problem Anxiety F41.9 Active 98061940 Problem Hematuria R31.9 Active 47889678 Problem Hot flashes R23.2 Active 968448345 Problem Multiple fractures T07.XXXA Active 060970324 Problem Nausea R11.0 Active 079646323 Problem Hospital discharge follow-up Z09 Active 693554866 Problem Breast tenderness N64.4 Active 27314338 Problem Depression F32.9 Active 11331904 Problem Hidradenitis suppurativa L73.2 Active 39767242 Problem History of IBS Z87.19 Active 72014208289970 Problem Localized edema R60.0 Active 306497761 Problem Posttraumatic stress disorder F43.10 Active 84423886 Problem Genital herpes simplex, unspecified site A60.00 Active 35096298 Problem Tobacco use Z72.0 Active 107665897 ALLERGIES No Information ENCOUNTERS Encounter Location Date Diagnosis [facility] [address] [place] [address] 42146- 1550 Mar, [facility] [id number] [place] [address] 75241- 3824 Feb, [facility] [id number] [place] [address] 03898- 0138 Feb, Panic disorder F41.0 ; Bipolar disorder, current episode mixed, moderate F31.62 and Generalized anxiety disorder F41.1 [place] [facility] [id number] [place] [address] 55070- 4978 Feb, Panic disorder F41.0 [facility] [id number] [place] [address] 06889- 4906 Jan, Genital herpes simplex, unspecified site A60.00 [facility] [address] [place] [address] 52257- 2359 Jan, Panic disorder F41.0 [place] [id number] [place] [address] 07863- 4597 Dec, Diaphoresis R61 and Excessive thirst R63.1 [facility] [address] [place] [address] 08383- 7634 Dec, Panic disorder F41.0 ; Bipolar disorder, current episode mixed, moderate F31.62 and Generalized anxiety disorder F41.1 [facility] [address], [place] [address] 5628 Dec, Panic disorder F41.0 [facility] [address] [place] [address] 91253- 2451 Nov, Panic disorder F41.0 [facility] [address] [place] [address] 15667- 3818 Nov, Panic disorder F41.0 ; Generalized anxiety disorder F41.1 and Bipolar disorder, current episode mixed, moderate F31.62 [facility] [id number] [place] [address] 16360- 7079 Nov, Panic disorder F41.0 [facility] [id number] [place] [address] 13900- 9389 Nov, Panic disorder F41.0 [place] [address] 72206- 6798 October, Panic disorder F41.0 [facility] [facility] [id number] [place] [address] 19317- 6099 October, Panic disorder F41.0 ; Generalized anxiety disorder F41.1 and Bipolar disorder, current episode mixed, moderate F31.62 [facility] [id number] [place] [address] 05743- 8148 October, Panic disorder F41.0 [facility] [id number] [place] [address] 24760- 0124 Sep, Hospital discharge follow-up Z09 ; Concussion without loss of consciousness, initial encounter S06.0X0A and Nausea R11.0 [facility] [id number] [place] [address] 59653- 0299 Sep, [facility] [id number] [place] [address] 32601- 7615 Sep, Panic disorder F41.0 [facility] [id number] [place] [address] 80858- 8992 Sep, [facility] [id number] [place] [address] 80972- 7784 Sep, Well woman exam with routine gynecological exam Z01.419 ; Multiple fractures T07.XXXA ; Hot flashes R23.2 ; Essential hypertension I10 ; Mixed hyperlipidemia E78.2 ; Genital herpes simplex, unspecified site A60.00 ; Alkaline phosphatase elevation R74.8 ; Dysuria R30.0 ; Vitamin D deficiency E55.9 ; Tobacco use Z72.0 ; High risk sexual behavior Z72.51 and Encounter for immunization Z23 [facility] [facility] [id number] [place] [address] 97492- 4004 Aug, Panic disorder F41.0 ; Generalized anxiety disorder F41.1 and Bipolar disorder, current episode mixed, moderate F31.62 [facility] [id number] [place] [address] 96944- 8690 Aug, [facility] [facility] [address] 54732- 5866 Jul, Panic disorder F41.0 ; Generalized anxiety disorder F41.1 and Bipolar disorder, current episode mixed, moderate F31.62 [facility] [id number] [place] [address] 51441- 4350 Jul, [place] [facility] [address] 69808- 6923 Jul, [facility] [id number] [place] [address] 21173- 6545 Jul, Effusion, right knee M25.461 ; Acute pain of right knee M25.561 and Acute pain of left knee M25.562 [facility] [facility] [address] [place] [address] 13012- 1496 Jun, Bipolar disorder, current episode mixed, moderate F31.62 ; Generalized anxiety disorder F41.1 and Panic disorder F41.0 [facility] [id number] [place] [address] 36890- 4838 May, Bipolar disorder, current episode mixed, moderate F31.62 ; Generalized anxiety disorder F41.1 and Panic disorder F41.0 [facility] [id number] [place] [address] 84705- 5323 May, Bipolar disorder, current episode mixed, moderate F31.62 [facility] [id number] [place] [address] 89963- 6663 May, Bipolar disorder, current episode mixed, moderate F31.62 [facility] [id number] [place] [address] 54644- 4462 Apr, Bipolar disorder, current episode mixed, moderate F31.62 ; Generalized anxiety disorder F41.1 and Panic disorder F41.0 [facility] [id number] [place] [address] 95599- 7549 17 Mar, 2017 [facility] [address] 773646- 2715 Mar, Bipolar disorder, current episode mixed, moderate F31.62 ; Generalized anxiety disorder F41.1 and Panic disorder F41.0 [facility] [id number] [place] [address] 81105- 0847 27 Feb, 2017 [facility] [id number] [place] [address] 87902- 4607 Feb, Posttraumatic stress disorder F43.10 [facility] [address] 44501- 9937 20 Feb, 2017 Gastroesophageal reflux disease, esophagitis presence not specified K21.9 [facility] [address] 57544- 5937 13 Feb, 2017 [facility] [id number] [place] [address] 23804- 4578 06 Feb, 2017 Knee pain, right anterior M25.561 [facility] [id number] [place] [address] 10960- 0460 05 Feb, 2017 HSV (herpes simplex virus) infection B00.9 [facility] [id number] [place] [address] 28592- 3243 Feb, [facility] [id number] [place] [address] 03766- 9626 Jan, [facility] [id number] [place] [address] 39200- 5625 Jan, Posttraumatic stress disorder F43.10 [facility] [id number] [place] [address] 52032- 7495 Jan, Foot pain, left M79.672 [facility] [id number] [place] [address] 00261- 7127 Jan, [facility] [id number] [place] [address] 74723- 4885 Jan, Lumbar radiculopathy, acute M54.16 ; Muscle spasm of back M62.830 and Right hip pain M25.551 [facility] [id number] [place] [address] 14153- 4466 Jan, Lumbar radiculopathy, acute M54.16 [facility] [facility] [id number] [place] [address] 80567- 7207 Jan, [place] [address] 18628- 5557 Jan, [facility] [id number] [place] [address] 58183- 6825 Dec, Lumbar radiculopathy, acute M54.16 ; Acute renal insufficiency N28.9 and Muscle spasm of back M62.830 [facility] [id number] [place] [address] 69016- 6904 Dec, [facility] [id number] [place] [address] 18716- 5718 Dec, [facility] [id number] [place] [address] 88336- 0381 Dec, [facility]ALK [facility] [id number] [place] [address] 63575 -0069 Dec, Low back pain with sciatica, sciatica laterality unspecified, unspecified back pain laterality, unspecified chronicity M54.40 and Acute right-sided low back pain with right-sided sciatica M54.41 [facility] [id number] [place] [address] 78129- 7113 Dec, Posttraumatic stress disorder F43.10 [facility] [id number] [place] [address] 34616- 1978 11 Dec, 2016 [facility] [id number] [place] [address] 37490- 4938 Dec, Pain in right thigh M79.651 and Acute right-sided low back pain without sciatica M54.5 [facility] [id number] [place] [address] 83251- 7150 Dec, Posttraumatic stress disorder F43.10 and Major depressive disorder, recurrent episode with anxious distress F33.9 [facility] [id number] [place] [address] 54438 -6947 Dec, [facility] [id number] [place] [address] 44969- 0134 Nov, [facility] [id number] [place] [address] 84922- 3853 October, [facility] [id number] [place] [address] 64257- 0014 October, [facility] [id number] [place] [address] 99264- 8414 October, Knee pain, right anterior M25.561 [facility] [id number] [place] [address] 08661- 3745 October, Knee pain, right anterior M25.561 [facility] [id number] [place] [address] 24363- 9455 October, [facility] [id number] [place] [address] 25604- 7287 October, [facility] [id number] [place] [address] 95605- 4551 October, [facility] [id number] [place] [address] 98776 -5663 Sep, [facility] [address] [address]- 7199 Sep, [facility] [id number] [place] [address] 76929- 3177 17 Sep, 2016 Essential hypertension I10 [place] [address] [place] [address] 91691- 3719 11 Sep, 2016 Essential hypertension I10 [facility] [id number] [place] [address] 32863- 7046 Sep, [facility] [id number] [place] [address] 03154- 2114 Sep, Posttraumatic stress disorder F43.10 and Major depressive disorder, recurrent episode with anxious distress F33.9 [facility] [id number] [place] [address] 13919- 0864 07 Sep, 2016 Multiple fractures T14.8 ; Alkaline phosphatase elevation R74.8 and Vitamin D deficiency E55.9 [facility] [address] [place] [address] 87299- 9301 Sep, [facility] [id number] [place] [address] 85756- 5669 Sep, Elevated serum creatinine R79.89 ; Fracture of foot, left, closed, initial encounter S92.902A and Alkaline phosphatase elevation R74.8 [facility] [address] [place] [address] 63333- 9793 Sep, Elevated serum creatinine R79.89 and Essential hypertension I10 [place] [address] [place] [address] 32106- 2809 Sep, [facility] [id number] [place] [address] 82341- 4490 Aug, Gastroesophageal reflux disease, esophagitis presence not specified K21.9 [facility] [address] [place] [address] 81134- 8653 Aug, Essential hypertension I10 ; Fracture of foot, left, closed , initial encounter S92.902A and Alkaline phosphatase elevation R74.8 [facility] [id number] [place] [address] 33253- 2856 17 Jul, 2016 Genital herpes simplex, unspecified site A60.00 [facility] [id number] [place] [address] 27682- 8196 Jul, Essential hypertension I10 [facility] [address] 50208- 6247 Jun, Cough R05 and Wheezing R06.2 [facility] [place] [id number] [place] [address] 00402- 3637 Jun, Essential hypertension I10 [place] [address] 98651- 7235 May, Essential hypertension I10 [place] [address] 25177- 7337 May, Posttraumatic stress disorder F43.10 and Major depressive disorder, recurrent episode with anxious distress F33.9 [facility] [id number] [place] [address] 39879- 3988 Apr, [facility] [id number] [place] [address] 58759- 5088 Apr, [facility] [id number] [place] [address] 17134- 6006 Apr, [facility] [id number] [place] [address] 17280- 4838 Mar, [facility] [id number] [place] [address] 26745- 2613 Feb, [facility] [place] [id number] [place] [address] 95416- 4894 Jan, [facility] [id number] [place] [address] 82327- 2710 Jan, Essential hypertension I10 ; Mixed hyperlipidemia E78.2 ; Gastroesophageal reflux disease, esophagitis presence not specified K21.9 ; Mild intermittent asthma without complication J45.20 ; Hidradenitis suppurativa L73.2 ; Migraine without status migrainosus, not intractable, unspecified migraine type G43.909 ; Genital herpes simplex, unspecified site A60.00 and Closed traumatic minimally displaced fracture of metatarsal bone of left foot S92.302A [facility] WALK IN [place] [address] 55774 -7644 Jan, Localized edema R60.0 [place] [address] 55217- 0641 Dec, [place] [address] 66085- 6080 Dec, [place] [address] 26606- 6345 Dec, [facility] WALK IN [place] [address] 42487 -8682 Dec, Cough R05 ; Tobacco dependence F17.200 and Costochondritis , acute M94.0 [place] [address] 94592- 0165 Dec, Major depression, recurrent F33.9 ; Bipolar disorder, unspecified F31.9 and Posttraumatic stress disorder F43.10 [place] [address] 94406- 8366 Nov, [place] [address] 61146- 0409 Nov, [place] [address] 55003- 7893 October, [facility] IN [facility] [address] 49828 -1802 October, Acute upper respiratory infection, unspecified J06.9 [place] [address] 00657- 5865 October, [facility] [address], [place] [address]- 8714 Sep, Bipolar affective disorder, remission status unspecified F31.9 and Post-traumatic stress disorder F43.10 [facility] [address] [address]- 9189 Sep, Bipolar disorder, unspecified F31.9 ; Posttraumatic stress disorder F43.10 and Major depression, recurrent F33.9 [facility] [id number] [place] [address] 95898- 4373 Aug, Edema R60.9 ; Fatigue R53.83 and Polydipsia R63.1 [facility] [id number] [place] [address] 52195- 3069 Aug, [facility] [id number] [place] [address] 13410- 5600 Aug, [facility] [id number] [place] [address] 49168- 5851 Jul, [facility] [id number] [place] [address] 90061- 5575 Jul, [facility] [id number] [place] [address] 82770- 8503 Jun, [facility] [address] [place] [address] 26812- 5315 Jun, [facility] [id number] [place] [address] 18873- 2427 Jun, [facility] [address] [place] [address] 88062- 7228 Jun, [facility] [id number] [place] [address] 74612- 7471 May, Mixed hyperlipidemia E78.2 [facility] [address] [place] [address] 06356- 8383 May, Well woman exam Z01.419 ; History of herpes simplex infection Z86.19 ; Papanicolaou smear Z12.4 ; History of depression Z86.59 ; History of anxiety Z86.59 ; Lipoma of other specified sites D17.79 ; Hidradenitis suppurativa L73.2 ; Routine screening for STI (sexually transmitted infection) Z11.3 and Tobacco use Z72.0 [place] [address] 16043- 4182 May, Hematuria R31.9 ; Essential hypertension I10 ; Pure hypercholesterolemia E78.0 and Hidradenitis L73.2 [place] [address] 34190- 8378 May, Upper respiratory symptom R09.89 and Allergic rhinitis J30.[address] 88075- 3385 May, [place] [address] 28283- 7392 May, [place] [address] 37935- 6007 May, Bipolar disorder, unspecified F31.9 ; Posttraumatic stress disorder F43.10 and Major depression, recurrent F33.9 [facility] [id number] [place] [address] 43192- 2199 May, [place] [address] 17663- 9254 May, [facility] [id number] [place] [address] 59104- 6113 Apr, [place] [address] 39166- 9383 Apr, [facility] [id number] [place] [address] 12363- 6322 Mar, [place] [address] 01760- 7404 Mar, [facility] [address] [address]- 4451 Mar, [facility] [address] [place] [address] 873702- 7178 18 Feb, 2015 Major depressive disorder, recurrent episode, moderate 296.32 and Post traumatic stress disorder (PTSD) 309.81 [facility] [id number] [place] [address] 480873- 7149 Feb, [facility] [id number] [place] [address] 827383- 1851 Feb, [facility] [id number] [place] [address] 21515- 0145 Jan, Cough 786.2 [facility] [id number] [place] [address] 95467- 5770 Jan, Depression, major, recurrent, moderate 296.32 and Post traumatic stress disorder (PTSD) 309.81 [facility] [address] [address]- 8225 Jan, [facility] [address] [place] [address] 123917- 1681 Dec, [facility] [address], [place] [address]- 9910 Dec, Generalized anxiety disorder 300.02 and Depression, major, recurrent, moderate 296.32 [facility] [address] [address]- 6261 Dec, [facility] [id number] [address]- 2789 Dec, High risk medication use V58.69 [facility] [address] 1661 Dec, High risk medication use V58.69 [facility] [address] 9094 Dec, [place] [address] [place] [id number] [address]- 9046 Nov, Generalized anxiety disorder 300.02 and Major depressive disorder, recurrent episode, moderate 296.32 [facility] [address] [id number] Nov, Dental examination V72.2 [facility] [address] [id number] Nov, Dental examination V72.2 [facility] [id number] [address] 2546 Nov, [facility] [id number] [place] [address] [id number] Nov, Dental examination V72.2 [facility] [id number] [place] [address] [id number] Nov, Dental examination V72.2 [facility] [address], [place] [address]- 1186 October, Major depressive disorder, recurrent episode, moderate 296.32 and Generalized anxiety disorder 300.02 [facility] [address], [place] [address]- 5576 October, [facility] [address], [place] [address]- 6986 October, [facility] [address], [place] [address]- 7786 October, [facility] [address], [place] [address]- 3506 Sep, [facility] [address] [address]- 1996 Sep, [facility] [address], [place] [address]- 8146 Aug, [facility] [address], [place] [address]- 1146 Aug, [facility] [place] [facility] [address] [id number] [place] [address]- 0287 13 Aug, 2014 [facility] [place] [facility] [address] [id number] [place] [address]- 1939 13 Aug, 2014 [facility] [place] [facility] [address] [id number] [place] [address]- 6126 10 Aug, 2014 [facility] [place] [facility] [address] [id number] [place] [address]- 4356 Aug, 2014 [facility] [place] [facility] [address] [id number] [place] [address]- 3504 Aug, [facility] [place] [facility] [address] [id number] [place] [address]- 6088 16 Jul, 2014 [facility] [place] [facility] [address] [id number] [place] [address]- 3896 Jul, 2014 [facility] [place] [facility] [address] [id number] [place] [address]- 5911 Jul, 2014 [facility] [place] [facility] [address] [id number] [place] [address]- 6927 Jul, 2014 [facility] [place] [facility] [address] [id number] [place] [address] Jul, 2014 [facility] [place] [facility] [address] [id number] [place] [address] Jul, 2014 [facility] [place] [facility] [address] [id number] [place] [address] Jul, 2014 [facility] [place] [facility] [address] [id number] [place] [address] Jul, 2014 [facility] [place] [facility] [address] [id number] [place] [address] Jul, 2014 [facility] [place] [facility] [address] [facility] [id number] [place] [address] Jun, [facility] [place] [facility] [address] [id number] [place] [address] 5882 30 Jun, 2014 [facility] [place] [facility] [address] [id number] [place] [address] 7373 Jun, [facility] [place] [facility] [address] [id number] [place] [address] 6453 Jun, [facility] [place] [facility] [address] [id number] [place] [address] 6447 Jun, [facility] [place] [facility] [address] [id number] [place] [address]- 5282 Jun, [facility] [place] [facility] [address] [id number] [place] [address]- 4346 Jun, [facility] [place] [facility] [address] [id number] [place] [address]- 9263 Jun, [facility] [place] [facility] [address] [id number] [place] [address]- 7756 Jun, [facility] [place] [facility] [address] [id number] [place] [address]- 2730 Jun, [facility] [place] [facility] [address] [id number] [place] [address]- 6313 Jun, [facility] [place] [facility] [address] [id number] [place] [address]- 2997 Jun, [facility] [place] [facility] [address] [id number] [place] [address]- 9330 Jun, [facility] [place] [facility] [address] [id number] [place] [address]- 9403 Jun, [facility] [place] [facility] [address] [id number] [place] [address]- 2310 Jun, [facility] [place] [facility] [address] [id number] [place] [address]- 7953 Jun, [facility] [place] [facility] [address] [id number] [place] [address]- 7877 Jun, [facility] [place] [facility] [address] [id number] [place] [address]- 4882 Jun, [facility] [place] [facility] [address] [id number] [place] [address]- 4284 Jun, [facility] [place] [facility] [address] [id number] [place] [address]- 8268 Jun, [facility] [place] [facility] [address] [id number] [place] [address]- 5224 Jun, [facility] [place] [facility] [address] [id number] [place] [address]- 6328 Jun, [facility] [place] [facility] [address] [id number] [place] [address]- 1845 Jun, [facility] [place] [facility] [address] [id number] [place] [address]- 7514 Jun, [facility] [place] [facility] [address] [id number] [place] [address]- 2832 Jun, [facility] [place] [facility] [address] [id number] [place] [address]- 5743 May, [facility] [place] [facility] [address] [id number] [place] [address]- 1147 May, [facility] [place] [facility] [address] [id number] [place] [address]- 4644 May, [facility] [place] [facility] [address] [id number] [place] [address]- 1803 May, [facility] [place] [facility] [address] [id number] [place] [address]- 0416 May, [facility] [place] [facility] [address] [id number] [place] [address]- 2782 May, [facility] [place] [facility] [address] [id number] [place] [address]- 0231 May, [facility] [place] [facility] [address] [id number] [place] [address]- 8404 May, [facility] [place] [facility] [address] [id number] [place] [address]- 7823 May, [facility] [place] [facility] [address] [id number] [place] [address] May, [facility] [place] [facility] [address] [id number] [place] [address]- 2986 May, [facility] [place] [facility] [address] [id number] [place] [address]- 2260 May, [facility] [place] [facility] [address] [id number] [place] [address]- 1910 May, [facility] [place] [facility] [address] [id number] [place] [address]- 6167 May, [facility] [place] [facility] [address] [id number] [place] [address]- 7523 May, [facility] [place] [facility] [address] [id number] [place] [address]- 9572 May, [facility] [place] [facility] [address] [id number] [place] [address]- 1453 May, [facility] [place] [facility] [address] [id number] [place] [address]- 6319 May, [facility] [place] [facility] [address] [id number] [place] [address]- 1842 Apr, [facility] [place] [facility] [address] [id number], [place] [address]- 5668 Apr, [facility] [place] [facility] [address] [id number] [place] [address]- 0411 Apr, [facility] [place] [facility] [address] [id number] [place] [address]- 6314 Apr, [facility] [place] [facility] [address] [facility] [id number] [place] [address]- 7337 Apr, [facility] [place] [facility] [address] [id number] [place] [address]- 6567 Apr, [facility] [place] [facility] [address] [id number] [place] [address]- 8835 Apr, [facility] [place] [facility] [address] [id number] [place] [address]- 2324 Apr, [facility] [place] [facility] [address] [id number] [place] [address]- 4560 Mar, [facility] [place] [facility] [address] [id number] [place] [address]- 4557 Mar, [facility] [place] [facility] [address] [id number] [place] [address]- 1841 Feb, [facility] [place] [facility] [address] [id number] [place] [address]- 6314 Feb, [facility] [place] [facility] [address] [id number] [place] [address]- 9927 Feb, [facility] [place] [facility] [address] [id number] [place] [address]- 9675 Feb, [facility] [place] [facility] [address] [id number] [place] [address]- 1617 Feb, [facility] [place] [facility] [address] [id number] [place] [address]- 5971 Feb, [facility] [place] [facility] [address] [id number] [place] [address]- 2545 10 Feb, 2014 [facility] [place] [facility] [address] [id number] [place] [address]- 2547 10 Feb, 2014 [facility] [place] [facility] [address] [id number] [place] [address]- 0333 08 Feb, 2014 [facility] [place] [facility] [address] [id number] [place] [address]- 2541 08 Feb, 2014 [facility] [place] [facility] [address] [id number] [place] [address]- 0991 Jan, [facility] [place] [facility] [address] [id number] [place] [address]- 0010 Jan, [facility] [place] [facility] [address] [id number] [place] [address]- 6139 Jan, [facility] [place] [facility] [address] [id number] [place] [address]- 9493 Jan, [facility] [place] [facility] [address] [id number] [place] [address]- 8696 Jan, [facility] [place] [facility] [address] [id number] [place] [address]- 1565 Jan, [facility] [place] [facility] [address] [id number] [place] [address]- 3020 Jan, [facility] [place] [facility] [address] [id number] [place] [address]- 2085 Jan, [facility] [place] [facility] [address] [id number] [place] [address]- 7421 Jan, [facility] [place] [facility] [address] [id number] [place] [address]- 6654 Jan, [facility] [place] [facility] [address] [id number] [place] [address]- 2033 Jan, [facility] [place] [facility] [address] [id number] [place] [address]- 3763 Jan, [facility] [place] [facility] [address] [id number] [place] [address]- 4117 Jan, [facility] [place] [facility] [address] [id number] [place] [address]- 9223 Dec, [facility] [place] [facility] [address] [id number] [place] [address]- 4406 Dec, [facility] [place] [facility] [address] [id number] [place] [address]- 3580 Dec, [facility] [place] [facility] [address] [id number] [place] [address]- 7507 Dec, [facility] [place] [facility] [address] [id number] [place] [address]- 4794 Dec, [facility] [place] [facility] [address] [id number] [place] [address]- 5142 Dec, [facility] [place] [facility] [address] [id number] [place] [address]- 0499 Dec, [facility] [place] [facility] [address] [id number] [place] [address]- 5742 Dec, [facility] [place] [facility] [address] [id number] [place] [address]- 4871 Dec, [facility] [place] [facility] [address] [id number] [place] [address]- 0357 Dec, [facility] [place] [facility] [address] [id number] [place] [address]- 1299 Dec, [facility] [place] [facility] [address] [id number] [place] [address]- 4088 Dec, [facility] [place] [facility] [address] [id number] [place] [address]- 1274 Dec, [facility] [place] [facility] [address] [id number] [place] [address]- 2365 Dec, [facility] [place] [facility] [address] [id number] [place] [address]- 1850 Nov, [facility] [place] [facility] [address] [id number] [place] [address]- 6576 Nov, [facility] [place] [facility] [address] [id number] [place] [address]- 8662 Nov, [facility] [place] [facility] [address] [id number] [place] [address]- 3140 Nov, [facility] [place] [facility] [address] [id number] [place] [address]- 7414 Nov, [facility] [place] [facility] [address] [id number] [place] [address]- 4648 Nov, [facility] [place] [facility] [address] [id number] [place] [address]- 7667 Nov, [facility] [place] [facility] [address] [id number] [address]- 8036 Nov, [facility] [place] [facility] [address] [id number] [place] [address]- 6290 October, [facility] [place] [facility] [address] [id number] [place] [address]- 8145 October, [facility] [place] [facility] [address] [id number] [place] [address]- 6264 October, [facility] [place] [facility] [address] [id number] [place] [address]- 7870 October, [facility] [place] [facility] [address] [id number] [place] [address]- 2241 October, [facility] [place] [facility] [address] [id number] [place] [address]- 8341 October, [facility] [place] [facility] [address] [id number] [place] [address]- 0083 October, [facility] [place] [facility] [address] [id number] [place] [address]- 4683 October, [facility] [place] [facility] [address] [id number] [place] [address]- 5022 October, [facility] [place] [facility] [address] [id number] [place] [address]- 6558 October, [facility] [place] [facility] [address] [id number] [place] [address]- 6246 October, [facility] [place] [facility] [address] [id number] [place] [address]- 7756 October, [facility] [place] [facility] [address] [id number] [place] [address]- 2193 October, [facility] [place] [facility] [address] [id number] [place] [address]- 5449 October, [facility] [place] [facility] [address] [id number] [place] [address]- 9968 October, [facility] [place] [facility] [address] [id number] [place] [address]- 0500 October, [facility] [place] [facility] [address] [id number] [place] [address]- 4268 Sep, [facility] [place] [facility] [address] [id number] [place] [address]- 7049 Sep, [facility] [place] [facility] [address] [id number] [place] [address]- 5139 Sep, [facility] [place] [facility] [address] [id number] [place] [address]- 8332 Sep, [facility] [place] [facility] [address] [id number] [place] [address]- 2465 Sep, [facility] [place] [facility] [address] [id number] [place] [address]- 8765 Sep, [facility] [place] [facility] [address] [id number] [place] [address]- 3004 Sep, [facility] [place] [facility] [address] [id number] [place] [address]- 0394 Sep, [facility] [place] [facility] [address] [id number] [place] [address]- 0706 Sep, [facility] [place] [facility] [address] [id number] [place] [address]- 1038 Sep, [facility] [place] [facility] [address] [id number] [place] [address]- 1516 Sep, [facility] [place] [facility] [address] [id number] [place] [address]- 7251 Sep, [facility] [place] [facility] [address] [id number] [place] [address]- 9609 Sep, [facility] [place] [facility] [address] [id number] [place] [address]- 9801 Sep, [facility] [place] [facility] [address] [id number] [place] [address]- 2875 Sep, [facility] [place] [facility] [address] [id number] [place] [address]- 3240 Sep, [facility] [place] [facility] [address] [id number] [place] [address]- 3701 Sep, [facility] [place] [facility] [address] [id number] [place] [address]- 3586 Sep, [facility] [place] [facility] [address] [id number] [place] [address]- 8240 Sep, [facility] [place] [facility] [address] [id number] [place] [address]- 0239 Aug, [facility] [place] [facility] [address] [id number] [place] [address]- 9985 Aug, [facility] [place] [facility] [address] [id number] [place] [address]- 2622 Aug, [facility] [place] [facility] [address] [facility] [id number] [place] [address]- 4132 Aug, [facility] [place] [facility] [address] [id number] [place] [address]- 4407 Jul, [facility] [place] [facility] [address] [id number] [place] [address]- 9154 Jul, [facility] [place] [facility] [address] [id number] [place] [address]- 4789 Jul, [facility] [place] [facility] [address] [id number] [place] [address]- 5582 Jul, [facility] [place] [facility] [address] [id number] [place] [address]- 5265 14 Jul, 2013 [facility] [place] [facility] [address] [id number] [place] [address]- 4905 14 Jul, 2013 [facility] [place] [facility] [address] [id number] [place] [address]- 9575 Jul, [facility] [place] [facility] [address] [id number] [place]19 Jul, [facility] [place] [facility] [address] [id number] [place] [address]- 6617 Jul, [facility] [place] [facility] [address] [id number] [place] [address]- 0615 Jul, [facility] [place] [facility] [address] [id number] [place] [address]- 5373 Jul, [facility] [place] [facility] [address] [id number] [place] [address]- 6095 Jul, [facility] [place] [facility] [address] [id number] [place] [address]- 8619 Jun, [facility] [place] [facility] [address] [id number] [place] [address]- 2132 Jun, [facility] [place] [facility] [address] [id number] [place] [address]- 4427 Jun, [facility] [place] [facility] [address] [id number] [place] [address]- 3747 Jun, [facility] [place] [facility] [address] [id number] [place] [address]- 5337 Jun, [facility] [place] [facility] [address] [id number] [place] [address]- 2410 Jun, [facility] [place] [facility] [address] [id number] [place] [address]- 1171 May, [facility] [place] [facility] [address] [id number] [place] [address]- 8034 May, [facility] [place] [facility] [address] [id number] [place] [address]- 9278 21 Apr, 2013 [facility] [address] [id number] [place] [address]- 3742 21 Apr, 2013 [facility] [address] [id number] [place] [address]- 3045 19 Apr, 2013 [facility] [address] [id number] [place] [address]- 5577 19 Apr, 2013 [facility] [address] [id number] [place] [address]- 4812 18 Apr, 2013 [facility] [address] [id number] [place] [address], [place] [address]- 7594 18 Apr, 2013 [facility] [address] [id number] [place] [address]- 1725 17 Apr, 2013 [facility] [address] [id number] [place] [address]- 2055 15 Apr, 2013 [facility] [address] [id number] [place] [address]- 3963 15 Apr, 2013 [facility] [address] [id number] [place] [address]- 6173 15 Apr, 2013 [facility] [address] [facility] [id number] [place] [address]- 6668 15 Apr, 2013 [facility] [place] [facility] [address] [id number] [place] [address]- 0251 Apr, [facility] [address] [id number], [place] [address]- 0213 Apr, [facility] [place] [facility] [address] [id number] [place] [address]- 9446 31 Mar, 2013 [facility] [place] [facility] [address] [id number] [place] [address]- 4531 Mar, [facility] [place] [facility] [address] [id number], [place] [address]- 9878 25 Mar, 2013 [facility] [place] [facility] [address] [id number] [place] [address]- 4326 25 Mar, 2013 [facility] [place] [facility] [address] [id number] [place] [address]- 0852 17 Mar, 2013 [facility] [place] [facility] [address] [id number] [place] [address]- 4318 17 Mar, 2013 [facility] [place] [facility] [address] [id number] [place] [address]- 3075 14 Mar, 2013 [facility] [place] [facility] [address] [id number] [place] [address]- 1863 14 Mar, 2013 [facility] [place] [facility] [address] [id number] [place] [address]- 7934 Mar, [facility] [place] [facility] [address] [id number] [place] [address]- 9302 Mar, [facility] [place] [facility] [address] [id number], [place] [address]- 1469 02 Mar, 2013 [facility] [place] [facility] [address] [id number] [place] [address]- 9476 30 Feb, 2012 [facility] [place] [facility] [address] [id number], [place] [address]- 8702 28 Feb, 2012 [facility] [place] [facility] [address] [id number], [place] [address]- 8413 27 Feb, 2012 [facility] [place] [facility] [address] [id number], [place] [address]- 1768 27 Feb, 2012 [facility] [place] [facility] [address] [id number] [place] [address]- 0529 20 Feb, 2012 [facility] [place] [facility] [address] [id number], [place] [address]- 7747 10 Feb, 2012 [facility] [place] [facility] [address] [id number], [place] [address]- 8378 29 Jan, 2013 [facility] [place] [facility] [address] [id number], [place] [address]- 0493 Jan, [facility] [address] [id number] [place] [address]- 1907 Dec, [facility] [address] [id number] [place] [address]- 9902 Dec, [facility] [address] [id number] [place] [address] Dec, [facility] [address] [id number] [place] [address] Dec, [facility] [address] [id number] [place] [address] Nov, [facility] [address] [id number] [place] [address] Nov, [facility] [address] [id number] [place] [address] Nov, [facility] [address] [id number] [place] [address] October, [facility] [address] [id number] [place] [address] October, [facility] [address] [id number] [place] [address] October, [facility] [address] [id number] [place] [address] October, [facility] [place] [facility] [address] [id number] [place] [address] October, [facility] [place] [facility] [address] [id number] [place] [address] Sep, [facility] [place] [facility] [address] [id number] [place] [address] Sep, [facility] [place] [facility] [address] [id number] [place] [address]68 Aug, [facility] [place] [facility] [address] [id number] [place] [address] 15 Aug, 2012 [facility] [place] [facility] [address] [id number] [place] [address] Aug, [facility] [place] [facility] [address] [id number] [place] [address]- [address] 08 Aug, 2012 [facility] [place] [facility] [address] [id number] [place] [address]- [address] Aug, [facility] [place] [facility] [address] [id number] [place] [address]- [address] 18 Jul, 2012 [facility] [place] [facility] [address] [id number] [place] [address] Jul, [facility] [place] [facility] [address] [id number] [place] [address] Jul, [facility] [place] [facility] [address] [id number] [place] [address] Jul, [facility] [place] [facility] [address] [id number] [place] [address]163 Jun, [facility] [place] [facility] [address] [id number] [place] [address] Jun, [facility] [place] [facility] [address] [id number] [place] [address] Jun, [facility] [place] [facility] [address] [id number] [place] [address] Jun, [facility] [place] [facility] [address] [id number] [place] [address] Jun, [facility] [place] [facility] [address] [id number] [place] [address] 47[address] Jun, [facility] [place] [facility] [address] [id number] [place] [address] 3768 Jun, [facility] [place] [facility] [address] [id number], [place] [address] Jun, [facility] [place] [facility] [address] [id number] [place] [address] Jun, [facility] [place] [facility] [address] [id number] [place] [address]- [address] Jun, [facility] [place] [facility] [address] [id number] [place] [address]- 8318 Jun, [facility] [place] [facility] [address] [id number] [place] [address] May, [facility] [place] [facility] [address] [id number] [place] [address] May, [facility] [place] [facility] [address] [id number] [place] [address] Apr, [facility] [place] [facility] [address] [id number] [place] [address]61 Apr, [facility] [place] [facility] [address] [id number] [place] [address] Mar, [facility] [place] [facility] [address] [id number] [place] [address]- [address] 31 Mar, 2012 [facility] [place] [facility] [address] [id number] [place] [address]- [address] 30 Mar, 2012 [facility] [place] [facility] [address] [id number], [place] [address] 30 Mar, 2012 [facility] [place] [facility] [address] [id number], [place] [address] Mar, [facility] [place] [facility] [address] [id number] [place] [address]- [address] 17 Mar, 2012 [facility] [place] [facility] [address] [id number] [place] [address]- [address]39 16 Mar, 2012 [facility] [place] [facility] [address] [id number] [place] [address]- [address] Mar, [facility] [place] [facility] [address] [id number] [place] [address]- [address] Mar, [facility] [address] [id number] [place] [address] Feb, [facility] [place] [facility] [address] [id number] [place] [address]- [address]46 Jan, [facility] [address] [id number] [place] [address]- 44[address] Jan, [facility] [address] [id number] [place] [address]- [address]783 Dec, [facility] [address] [id number] [place] [address]113 Dec, [facility] [address] [id number] [place] [address]- [address]105 Dec, [facility] [address] [id number] [place] [address]- 1735 Nov, [facility] [address] [id number] [place] [address]- 1231 Nov, [facility] [address] [id number] [place] [address]- [address] Nov, [facility] [address] [id number] [place] [address]- [address]95 Nov, [facility] [facility] [address] [id number] [place] [address] 2813 October, [facility] [address] [id number] [place] [address]- 2546 October, [facility] [place] [facility] [address] [id number] [place] [address]- [address]169 Sep, [facility] [place] [facility] [address] [id number] [place] [address]- [address]46 Sep, [facility] [address] [id number] [place] [address]- 6380 Aug, [facility] [address] [id number] [place] [address]- [address]111 10 Jul, 2011 [facility] [place] [facility] [address] [id number] [place] [address]- [address] 04 Jul, 2011 [facility] [place] [facility] [address] [id number] [place] [address]- 2465 Jul, [facility] [place] [facility] [address] [id number] [place] [address]- 9102 Jul, [facility] [place] [facility] [address] [id number] [place] [address]- 2618 Jun, [facility] [place] [facility] [address] [id number] [place] [address]- 5535 15 May, 2011 [facility] [place] [facility] [address] [id number] [place] [address] 15 May, 2011 [facility] [place] [facility] [address] [id number] [place] [address] 15 May, 2011 [facility] [place] [facility] [address] [id number] [place] [address] 13 May, 2011 [facility] [place] [facility] [address] [facility] [id number] [place] [address] 08 May, 2011 [facility] [place] [facility] [address] [id number], [place] [address] 14 Apr, 2011 [facility] [place] [facility] [address] [id number], [place] [address] 14 Apr, 2011 [facility] [place] [facility] [address] [id number] [place] [address] 14 Apr, 2011 [facility] [place] [facility] [address] [id number] [place] [address] 07 Apr, 2011 [facility] [place] [facility] [address] [facility] [id number] [place] [address] 02 Apr, 2011 [facility] [place] [facility] [address], [place] [address] Mar, [facility] [address] [facility] [id number], [place] [address] Mar, [facility] [address] [address] 14 Mar, 2011 [facility] [address] [facility] [id number], [place] [address] 14 Mar, 2011 [facility] [address] [facility] [id number], [place] [address] Mar, [facility] [address] [facility] [id number] [place] [id number] Mar, [facility] [address] [id number], [place] [address] Mar, [facility] [address], [place] [address] Mar, [facility] [address], [place] [address] Feb, [facility] [address] [address] May, [facility] [address], [place] [address] May, [facility] [address], [place] [address] May, [facility] [address], [place] [address] Apr, [facility] [address], [place] [address] Mar, IMMUNIZATIONS No Known Immunizations SOCIAL HISTORY Never Assessed REASON FOR VISIT xanax refill PLAN OF CARE VITAL SIGNS MEDICATIONS Medication Instructions Dosage Frequency Start Date End Date Duration Status Alprazolam 2 MG Orally part of taper 1 tablet mornign and 0.5 tablet night 30 days Active Alprazolam 0.25 MG Orally daily 1 tablet 24h Nov, 30 days Active RESULTS No Results PROCEDURES [...]
--- OUTSIDE RECORDS SUMMARY | 2018-08-19 09:19 | XMS REPORT ---
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 Name Role Phone MAIRA RAND Unavailable PROBLEMS Type Condition ICD9-CM Code YQE60-YH Code Onset Dates Condition Status SNOMED Code Problem Mixed hyperlipidemia E78.2 Active 021633647 Problem Vitamin D deficiency E55.9 Active 16304558 Problem Essential hypertension I10 Active 73811511 Problem Mild intermittent asthma without complication J45.20 Active 506671568 Problem Generalized anxiety disorder F41.1 Active 37588327 Problem Gastroesophageal reflux disease, esophagitis presence not specified K21.9 Active 214345442 Problem Bipolar disorder, current episode mixed, moderate F31.62 Active 841788179 Problem Bipolar disorder F31.9 Active 86791268 Problem Panic disorder F41.0 Active 764281052 Problem Low back pain with sciatica, sciatica laterality unspecified, unspecified back pain laterality, unspecified chronicity M54.40 Active 325102739 Problem Acute right-sided low back pain with right-sided sciatica M54.41 Active 65139445 Problem Excessive thirst R63.1 Active 47158100 Problem Concussion without loss of consciousness, initial encounter S06.0X0A Active 47043098 Problem Primary insomnia F51.01 Active 328872063 Problem Anxiety F41.9 Active 63359701 Problem Hematuria R31.9 Active 78142068 Problem Hot flashes R23.2 Active 838716133 Problem Multiple fractures T07.XXXA Active 109813149 Problem Nausea R11.0 Active 499545022 Problem Hospital discharge follow-up Z09 Active 109909719 Problem Breast tenderness N64.4 Active 79693335 Problem Depression F32.9 Active 55389230 Problem Hidradenitis suppurativa L73.2 Active 40595216 Problem History of IBS Z87.19 Active 60500873474683 Problem Localized edema R60.0 Active 165136801 Problem Posttraumatic stress disorder F43.10 Active 25632114 Problem Genital herpes simplex, unspecified site A60.00 Active 92504350 Problem Tobacco use Z72.0 Active 771196771 ALLERGIES Substance Reaction Event Type Date Status Paxil suicidal Drug Allergy Dec, Active Morphine Sulfate hives Drug Allergy Dec, Active Hydrocodone-Acetaminophen rash Drug Allergy Dec, Active Bactrim DS break out in blisters Drug Allergy Dec, Active Amoxicillin hives Drug Allergy Dec, Active Latex rash Non Drug Allergy Dec, Active Abilify 2 Mg Tablet anger Non Drug Allergy Dec, Active ENCOUNTERS Encounter Location Date Diagnosis [facility] [id number] [place] [address] 63026- 5015 Feb, [place] [id number] [place] [address] 35873- 9938 Feb, Panic disorder F41.0 [place] [facility] [id number] [place] [address] 45734- 0402 Jan, Genital herpes simplex, unspecified site A60.00 [place] [id number] [place] [address] 69567- 9328 Jan, Panic disorder F41.0 [place] [id number] [place] [address] 57987- 3707 Dec, Diaphoresis R61 and Excessive thirst R63.1 [place] [id number] [place] [address] 19474- 0270 Dec, Panic disorder F41.0 ; Bipolar disorder, current episode mixed, moderate F31.62 and Generalized anxiety disorder F41.1 [place] [address], [place] [address] 3957 Dec, Panic disorder F41.0 [place] [id number] [place] [address] 91105- 6005 Nov, Panic disorder F41.0 [place] [id number] [place] [address] 33012- 9448 Nov, Panic disorder F41.0 ; Generalized anxiety disorder F41.1 and Bipolar disorder, current episode mixed, moderate F31.62 [place] [id number] [place] [address] 69834- 7579 Nov, Panic disorder F41.0 [place] [id number] [place] [address] 03345- 0521 Nov, Panic disorder F41.0 [place] [address] 48894- 5697 October, Panic disorder F41.0 [place] [id number] [place] [address] 70002- 9752 October, Panic disorder F41.0 ; Generalized anxiety disorder F41.1 and Bipolar disorder, current episode mixed, moderate F31.62 [place] [id number] [place] [address] 08388- 9806 October, Panic disorder F41.0 [place] [id number] [place] [address] 01396- 0457 Sep, Hospital discharge follow-up Z09 ; Concussion without loss of consciousness, initial encounter S06.0X0A and Nausea R11.0 [place] [id number] [place] [address] 32556- 6734 Sep, [place] [id number] [place] [address] 27302- 8714 Sep, Panic disorder F41.0 [place] [id number] [place] [address] 15042- 5714 Sep, [place] [id number] [place] [address] 43373- 1900 Sep, Well woman exam with routine gynecological exam Z01.419 ; Multiple fractures T07.XXXA ; Hot flashes R23.2 ; Essential hypertension I10 ; Mixed hyperlipidemia E78.2 ; Genital herpes simplex, unspecified site A60.00 ; Alkaline phosphatase elevation R74.8 ; Dysuria R30.0 ; Vitamin D deficiency E55.9 ; Tobacco use Z72.0 ; High risk sexual behavior Z72.51 and Encounter for immunization Z23 [place] [id number] [place] [address] 96232- 5351 Aug, Panic disorder F41.0 ; Generalized anxiety disorder F41.1 and Bipolar disorder, current episode mixed, moderate F31.62 [place] [id number] [place] [address] 63038- 0750 Aug, [place] [id number] [place] [address] 74050- 2892 Jul, Panic disorder F41.0 ; Generalized anxiety disorder F41.1 and Bipolar disorder, current episode mixed, moderate F31.62 [place] [id number] [place] [address] 45939- 4259 Jul, [place] [id number] [place] [address] 98671- 2570 Jul, [place] [id number] [place] [address] 31984- 8928 Jul, Effusion, right knee M25.461 ; Acute pain of right knee M25.561 and Acute pain of left knee M25.562 [place] [id number] [place] [address] 76464- 9923 Jun, Bipolar disorder, current episode mixed, moderate F31.62 ; Generalized anxiety disorder F41.1 and Panic disorder F41.0 [place] [id number] [place] [address] 02191- 1868 May, Bipolar disorder, current episode mixed, moderate F31.62 ; Generalized anxiety disorder F41.1 and Panic disorder F41.0 [place] [id number] [place] [address] 40896- 1795 May, Bipolar disorder, current episode mixed, moderate F31.62 [place] [id number] [place] [address] 46117- 3588 May, Bipolar disorder, current episode mixed, moderate F31.62 [facility] [id number] [place] [address] 96367- 6286 07 Apr, 2017 Bipolar disorder, current episode mixed, moderate F31.62 ; Generalized anxiety disorder F41.1 and Panic disorder F41.0 [facility] [id number] [place] [address] 61702- 9395 17 Mar, 2017 [facility] [id number] [place] [address] 97629- 5325 Mar, Bipolar disorder, current episode mixed, moderate F31.62 ; Generalized anxiety disorder F41.1 and Panic disorder F41.0 [facility] [id number] [place] [address] 06137- 3516 27 Feb, 2017 [facility] [id number] [place] [address] 09063- 6560 Feb, Posttraumatic stress disorder F43.10 [facility] [id number] [place] [address] 95215- 2738 20 Feb, 2017 Gastroesophageal reflux disease, esophagitis presence not specified K21.9 [facility] [id number] [place] [address] 79310- 0124 13 Feb, 2017 [facility] [id number] [place] [address] 18454- 5894 06 Feb, 2017 Knee pain, right anterior M25.561 [facility] [id number] [place] [address] 42735- 9279 05 Feb, 2017 HSV (herpes simplex virus) infection B00.9 [facility] [id number] [place] [address] 19979- 1927 Feb, [facility] [id number] [place] [address] 32249- 6393 Jan, [facility] [id number] [place] [address] 21088- 9483 Jan, Posttraumatic stress disorder F43.10 [facility] [id number] [place] [address] 23556- 7881 Jan, Foot pain, left M79.672 [facility] [id number] [place] [address] 78427- 1871 Jan, [facility] [id number] [place] [address] 11858- 7688 Jan, Lumbar radiculopathy, acute M54.16 ; Muscle spasm of back M62.830 and Right hip pain M25.551 [facility] [id number] [place] [address] 30284- 7275 Jan, Lumbar radiculopathy, acute M54.16 [place] [id number] [place] [address] 16091- 7943 Jan, [place] [id number] [place] [address] 65490- 3070 Jan, [facility] [id number] [place] [address] 66751- 0033 Dec, Lumbar radiculopathy, acute M54.16 ; Acute renal insufficiency N28.9 and Muscle spasm of back M62.830 [facility] [id number] [place] [address] 77641- 6333 Dec, [facility] [id number] [place] [address] 78200- 2401 Dec, [facility] [id number] [place] [address] 16698- 5662 Dec, [facility] [id number] [place] [address] 25399 -0564 Dec, Low back pain with sciatica, sciatica laterality unspecified, unspecified back pain laterality, unspecified chronicity M54.40 and Acute right-sided low back pain with right-sided sciatica M54.41 [facility] [id number] [place] [address] 85632- 2312 Dec, Posttraumatic stress disorder F43.10 [facility] [address], [place] [address]- 7460 Dec, [facility] [id number] [place] [address] 15977- 0442 Dec, Pain in right thigh M79.651 and Acute right-sided low back pain without sciatica M54.5 [facility] [id number] [place] [address] 21095- 2993 Dec, Posttraumatic stress disorder F43.10 and Major depressive disorder, recurrent episode with anxious distress F33.9 [facility] [id number] [place] [address] 93591 -3845 Dec, [facility] [id number] [place] [address] 91543- 8774 Nov, [facility] [id number] [place] [address] 40286- 1475 October, [facility] [address], [place] [address]- 4453 October, [facility] [id number] [place] [address] 46226- 7465 October, Knee pain, right anterior M25.561 [facility] [id number] [place] [address]- 0915 October, Knee pain, right anterior M25.561 [facility] [address], [place] [address]- 2426 October, [facility] [address], [place] [address]- 0957 October, [facility] [address], [place] [address]- 3676 October, [facility] [address], [place] [address] -7427 Sep, [facility] [address], [place] [address]- 4968 18 Sep, 2016 [place] [id number] [place] [address] 88482- 9777 Sep, Essential hypertension I10 [place] [id number] [place] [address] 89109- 3216 11 Sep, 2016 Essential hypertension I10 [place] [id number] [place] [address] 70195- 6543 Sep, [place] [id number] [place] [address] 50397- 1394 Sep, Posttraumatic stress disorder F43.10 and Major depressive disorder, recurrent episode with anxious distress F33.9 [place] [id number] [place] [address] 91616- 8124 Sep, Multiple fractures T14.8 ; Alkaline phosphatase elevation R74.8 and Vitamin D deficiency E55.9 [facility] [place] [id number] [place] [address] 51265- 0535 Sep, [place] [id number] [place] [address] 95460- 6657 Sep, Elevated serum creatinine R79.89 ; Fracture of foot, left, closed, initial encounter S92.902A and Alkaline phosphatase elevation R74.8 [place] [id number] [place] [address] 82872- 4486 Sep, Elevated serum creatinine R79.89 and Essential hypertension I10 [place] [id number] [place] [address] 05577- 0229 Sep, [place] [id number] [place] [address] 33772- 5356 Aug, Gastroesophageal reflux disease, esophagitis presence not specified K21.9 [place] [id number] [place] [address] 47001- 6455 Aug, Essential hypertension I10 ; Fracture of foot, left, closed , initial encounter S92.902A and Alkaline phosphatase elevation R74.8 [facility] [id number] [address]- 9699 17 Jul, 2016 Genital herpes simplex, unspecified site A60.00 [facility] [id number] [place] [address] 27897- 2893 06 Jul, 2016 Essential hypertension I10 [facility] [address] 57412- 3931 Jun, Cough R05 and Wheezing R06.2 [facility] [id number] [place] [address] 36491- 8187 Jun, Essential hypertension I10 [place] [id number] [place] [address] 56220- 0734 May, Essential hypertension I10 [facility] [id number] [place] [address] 19803- 8755 May, Posttraumatic stress disorder F43.10 and Major depressive disorder, recurrent episode with anxious distress F33.9 [facility] [id number] [place] [address] 31500- 0621 Apr, [facility] [id number] [place] [address] 12915- 5396 Apr, [facility] [id number] [place] [address] 87183- 3141 Apr, [facility] [id number] [place] [address] 09192- 5117 Mar, [facility] [id number] [place] [address] 03927- 0746 Feb, [facility] [id number] [place] [address] 32938- 6514 Jan, [facility] [id number] [place] [address] 84184- 3914 Jan, Essential hypertension I10 ; Mixed hyperlipidemia E78.2 ; Gastroesophageal reflux disease, esophagitis presence not specified K21.9 ; Mild intermittent asthma without complication J45.20 ; Hidradenitis suppurativa L73.2 ; Migraine without status migrainosus, not intractable, unspecified migraine type G43.909 ; Genital herpes simplex, unspecified site A60.00 and Closed traumatic minimally displaced fracture of metatarsal bone of left foot S92.302A [facility] [id number] [place] [address] 32735 -6440 Jan, Localized edema R60.0 [place] [address] 42187- 3702 Dec, [place] [address] 02607- 4508 Dec, [place] [id number] [place] [address] 99530- 4617 Dec, [facility] [place] [address] 31304 -6444 Dec, Cough R05 ; Tobacco dependence F17.200 and Costochondritis , acute M94.0 [place] [address] 41593- 5529 Dec, Major depression, recurrent F33.9 ; Bipolar disorder, unspecified F31.9 and Posttraumatic stress disorder F43.10 [place] [id number] [place] [address] 00815- 3787 Nov, [place] [address] 15710- 9150 Nov, [place] [id number] [place] [address] 70831- 6417 October, [facility] [address] 42310 -4330 October, Acute upper respiratory infection, unspecified J06.9 [place] [address] 03936- 9974 October, [facility] [address], [place] [address]- 5662 Sep, Bipolar affective disorder, remission status unspecified F31.9 and Post-traumatic stress disorder F43.10 [facility] [id number] [place] [address] 40370- 0214 Sep, Bipolar disorder, unspecified F31.9 ; Posttraumatic stress disorder F43.10 and Major depression, recurrent F33.9 [facility] [id number] [place] [address] 60838- 6376 Aug, Edema R60.9 ; Fatigue R53.83 and Polydipsia R63.1 [facility] [id number] [place] [address] 74634- 3426 Aug, [facility] [id number] [place] [address] 44137- 1777 Aug, [facility] [id number] [place] [address] 43721- 2830 Jul, [facility] [id number] [place] [address] 37756- 9046 Jul, [facility] [id number] [place] [address] 95599- 0936 Jun, [facility] [id number] [place] [address] 69201- 2842 Jun, [facility] [id number] [place] [address] 16795- 6395 Jun, [facility] [id number] [place] [address] 45031- 9235 Jun, [facility] [id number] [place] [address] 72602- 5697 May, Mixed hyperlipidemia E78.2 [facility] [address], [place] [address]- 7994 May, Well woman exam Z01.419 ; History of herpes simplex infection Z86.19 ; Papanicolaou smear Z12.4 ; History of depression Z86.59 ; History of anxiety Z86.59 ; Lipoma of other specified sites D17.79 ; Hidradenitis suppurativa L73.2 ; Routine screening for STI (sexually transmitted infection) Z11.3 and Tobacco use Z72.0 [place] [id number] [place] [address] 36127- 1601 May, Hematuria R31.9 ; Essential hypertension I10 ; Pure hypercholesterolemia E78.0 and Hidradenitis L73.[address] 54156- 7871 May, Upper respiratory symptom R09.89 and Allergic rhinitis J30.9 [place] [id number] [place] [address] 97153- 6527 May, [address] 66518- 4996 May, [place] [id number] [place] [address] 99172- 5018 May, Bipolar disorder, unspecified F31.9 ; Posttraumatic stress disorder F43.10 and Major depression, recurrent F33.9 [place] [id number] [place] [address] 23945- 1659 May, [place] [id number] [place] [address] 19267- 1944 May, [place] [id number] [place] [address] 10617- 3665 Apr, [place] [address] 14023- 5865 Apr, [place] [id number] [place] [address] 20240- 6179 Mar, [place] [id number] [place] [address] 95989- 3300 Mar, [place] [address] [address] 2488 Mar, [facility] [address]- 5591 18 Feb, 2015 Major depressive disorder, recurrent episode, moderate 296.32 and Post traumatic stress disorder (PTSD) 309.81 [facility] [address], [place] [address]- 3204 Feb, [facility] [address] 0780 08 Feb, 2015 [facility] [address] 2154 Jan, Cough 786.2 [facility] [id number] 3857 Jan, Depression, major, recurrent, moderate 296.32 and Post traumatic stress disorder (PTSD) 309.81 [facility] [address], [place] [address]- 4076 Jan, [facility] [address]- 4386 Dec, [facility] [address], [place] [address]- 2670 Dec, Generalized anxiety disorder 300.02 and Depression, major, recurrent, moderate 296.32 [facility] [address], [place] [address]- 9742 Dec, [facility] [id number] [address]- 6950 Dec, High risk medication use V58.69 [facility] [address] [address]- 4196 Dec, High risk medication use V58.69 [facility] [address], [place] [address]- 1751 Dec, [facility] [id number] [address]- 7246 Nov, Generalized anxiety disorder 300.02 and Major depressive disorder, recurrent episode, moderate 296.32 [facility] [address] [id number] [id number] Nov, Dental examination V72.2 [facility] [address] [id number] Nov, Dental examination V72.2 [facility] [address] [facility] [id number] [address]- 5526 Nov, [facility] [id number] [id number] Nov, Dental examination V72.2 [facility] [address] [id number] Nov, Dental examination V72.2 [facility] [address], [place] [address]- 2176 October, Major depressive disorder, recurrent episode, moderate 296.32 and Generalized anxiety disorder 300.02 [facility] [address], [place] [address]- 9525 October, [facility] [address] 9814 October, [facility] [address], [place] [address]- 7956 October, [facility] [address], [place] [address]- 8902 Sep, [facility] [address], [place] [address]- 1084 Sep, [facility] [id number], [place] [address]- 7296 Aug, [facility] [address], [place] [address]- 6266 Aug, [facility] [address] [id number] [address] 13 Aug, 2014 [facility] [place] [facility] [address] [id number] [place] [address] 13 Aug, 2014 [facility] [place] [facility] [address] [id number] [place] [address] 10 Aug, 2014 [facility] [place] [facility] [address] [id number] [place] [address] 03 Aug, 2014 [facility] [place] [facility] [address] [id number] [place] [address] Aug, 2014 [facility] [place] [facility] [address] [id number] [place] [address] 16 Jul, 2014 [facility] [place] [facility] [address] [facility] [id number] [place] [address] 16 Jul, 2014 [facility] [place] [facility] [address] [id number] [place] [address] 16 Jul, 2014 [facility] [place] [facility] [address] [id number] [place] [address] Jul, 2014 [facility] [place] [facility] [address] [facility] [id number] [place] [address] Jul, 2014 [facility] [place] [facility] [address] [facility] [id number] [place] [address] Jul, 2014 [facility] [place] [facility] [address] [facility] [id number], [place] [address] Jul, 2014 [facility] [place] [facility] [address] [id number] [place] [address] 9262 Jul, 2014 [facility] [place] [facility] [address] [id number] [place] [address] 0341 Jul, 2014 [facility] [place] [facility] [address] [facility] [id number] [place] [address] 9971 Jun, [facility] [place] [facility] [address] [facility] [id number], [place] [address] Jun, [facility] [place] [facility] [address] [id number] [place] [address] 5395 Jun, [facility] [place] [facility] [address] [id number] [place] [address] 8127 Jun, [facility] [place] [facility] [address] [id number] [place] [address]- 4236 Jun, [facility] [place] [facility] [address] [id number] [place] [address]- 5582 Jun, [facility] [place] [facility] [address] [id number] [place] [address]- 7515 Jun, [facility] [place] [facility] [address] [id number] [place] [address]- 6711 Jun, [facility] [place] [facility] [address] [id number] [place] [address]- 7084 Jun, [facility] [place] [facility] [address] [id number] [place] [address]- 7846 Jun, [facility] [place] [facility] [address] [id number] [place] [address]- 5171 Jun, [facility] [place] [facility] [address] [id number] [place] [address]- 5098 Jun, [facility] [place] [facility] [address] [id number] [place] [address]- 2857 Jun, [facility] [place] [facility] [address] [id number] [place] [address]- 9468 Jun, [facility] [place] [facility] [address] [id number] [place] [address]- 8648 Jun, [facility] [place] [facility] [address] [id number] [place] [address]- 2728 Jun, [facility] [place] [facility] [address] [id number] [place] [address]- 9521 Jun, [facility] [place] [facility] [address] [id number] [place] [address]- 0436 14 Jun, 2014 [facility] [address] [id number] [place] [address]- 0969 Jun, [facility] [place] [facility] [address] [id number] [place] [address]- 6156 Jun, [facility] [place] [facility] [address] [id number] [place] [address]- 5398 Jun, [facility] [place] [facility] [address] [id number] [place] [address]- 8415 Jun, [facility] [place] [facility] [address] [id number] [place] [address]- 7957 Jun, [facility] [place] [facility] [address] [id number] [place] [address]- 9124 Jun, [facility] [place] [facility] [address] [id number] [place] [address]- 1562 Jun, [facility] [address] [id number] [place] [address]- 0713 May, [facility] [place] [facility] [address] [id number] [place] [address]- 4109 May, [facility] [place] [facility] [address] [id number] [place] [address]- 5927 May, [facility] [place] [facility] [address] [id number] [place] [address]- 6623 May, [facility] [place] [facility] [address] [id number] [place] [address]- 6789 May, [facility] [place] [facility] [address] [id number] [place] [address]- 6426 May, [facility] [place] [facility] [address] [id number] [place] [address]- 8046 May, [facility] [place] [facility] [address] [id number] [place] [address]- 5632 May, [facility] [place] [facility] [address] [id number] [place] [address]- 8973 May, [facility] [place] [facility] [address] [id number] [place] [address]- 7370 May, [facility] [place] [facility] [address] [id number] [place] [address]- 2986 May, [facility] [place] [facility] [address] [id number] [place] [address]- 5753 May, [facility] [place] [facility] [address] [id number] [place] [address]- 5273 May, [facility] [place] [facility] [address] [id number] [place] [address]- 5111 May, [facility] [place] [facility] [address] [id number] [place] [address]- 5577 May, [facility] [place] [facility] [address] [id number] [place] [address]- 7455 May, [facility] [place] [facility] [address] [id number] [place] [address]- 8614 May, [facility] [place] [facility] [address] [id number] [place] [address]- 3628 May, [facility] [place] [facility] [address] [id number] [place] [address]- 1303 Apr, [facility] [place] [facility] [address] [id number], [place] [address]- 0447 Apr, [facility] [place] [facility] [address] [id number] [place] [address]- 2386 Apr, [facility] [place] [facility] [address] [id number] [place] [address]- 0899 Apr, [facility] [place] [facility] [address] [id number] [place] [address]- 7355 Apr, [facility] [place] [facility] [address] [id number] [place] [address]- 0606 Apr, [facility] [place] [facility] [address] [id number] [place] [address]- 0072 Apr, [facility] [place] [facility] [address] [id number] [place] [address]- 3533 Apr, [facility] [place] [facility] [address] [id number] [place] [address]- 8310 Mar, [facility] [place] [facility] [address] [id number] [place] [address]- 7636 Mar, [facility] [place] [facility] [address] [id number] [place] [address]- 6975 Feb, [facility] [place] [facility] [address] [id number] [place] [address]- 9464 Feb, [facility] [place] [facility] [address] [id number] [place] [address]- 1001 12 Feb, 2014 [facility] [place] [facility] [address] [id number] [place] [address]- 9698 12 Feb, 2014 [facility] [place] [facility] [address] [id number] [place] [address]- 8745 12 Feb, 2014 [facility] [place] [facility] [address] [id number] [place] [address]- 1793 12 Feb, 2014 [facility] [place] [facility] [address] [id number] [place] [address]- 3109 10 Feb, 2014 [facility] [place] [facility] [address] [id number] [place] [address]- 2541 10 Feb, 2014 [facility] [place] [facility] [address] [id number] [place] [address]- 8109 08 Feb, 2014 [facility] [place] [facility] [address] [id number] [place] [address]- 3213 08 Feb, 2014 [facility] [place] [facility] [address] [id number] [place] [address]- 5400 Jan, [facility] [place] [facility] [address] [id number] [place] [address]- 5423 Jan, [facility] [place] [facility] [address] [id number] [place] [address]- 9035 Jan, [facility] [place] [facility] [address] [id number] [place] [address]- 1928 Jan, [facility] [place] [facility] [address] [id number] [place] [address]- 9917 Jan, [facility] [place] [facility] [address] [id number] [place] [address]- 3692 Jan, [facility] [place] [facility] [address] [id number] [place] [address]- 6629 Jan, [facility] [place] [facility] [address] [id number] [place] [address]- 4080 Jan, [facility] [place] [facility] [address] [id number] [place] [address]- 5105 Jan, [facility] [place] [facility] [address] [id number] [place] [address]- 8641 Jan, [facility] [place] [facility] [address] [id number] [place] [address]- 2536 Jan, [facility] [place] [facility] [address] [id number] [place] [address]- 2914 Jan, [facility] [place] [facility] [address] [id number] [place] [address]- 4615 Jan, [facility] [place] [facility] [address] [id number] [place] [address]- 7880 Dec, [facility] [place] [facility] [address] [id number] [place] [address]- 9532 Dec, [facility] [place] [facility] [address] [id number] [place] [address]- 0733 Dec, [facility] [place] [facility] [address] [id number] [place] [address]- 9180 Dec, [facility] [place] [facility] [address] [id number] [place] [address]- 4483 Dec, [facility] [place] [facility] [address] [id number] [place] [address]- 1945 Dec, [facility] [place] [facility] [address] [id number] [place] [address]- 5039 Dec, [facility] [place] [facility] [address] [id number] [place] [address]- 4418 Dec, [facility] [place] [facility] [address] [id number] [place] [address]- 9787 Dec, [facility] [place] [facility] [address] [id number] [place] [address]- 0354 Dec, [facility] [place] [facility] [address] [id number] [place] [address]- 4495 Dec, [facility] [place] [facility] [address] [id number] [place] [address]- 9078 Dec, [facility] [place] [facility] [address] [id number] [place] [address]- 9793 Dec, [facility] [place] [facility] [address] [id number] [place] [address]- 6097 Dec, [facility] [place] [facility] [address] [id number] [place] [address]- 8737 Nov, [facility] [place] [facility] [address] [id number] [place] [address]- 4112 Nov, [facility] [place] [facility] [address] [id number] [place] [address]- 7559 Nov, [facility] [place] [facility] [address] [id number] [place] [address]- 9807 Nov, [facility] [place] [facility] [address] [id number] [place] [address]- 3803 Nov, [facility] [place] [facility] [address] [id number] [place] [address]- 9437 Nov, [facility] [address] [id number] [place] [address]- 2880 Nov, [facility] [address] [id number] [place] [address]- 9581 Nov, [facility] [address] [id number] [place] [address]- 3329 October, [facility] [address] [id number] [place] [address]- 1225 October, [facility] [address] [id number] [place] [address]- 5834 October, [facility] [address] [id number] [place] [address]- 6636 October, [facility] [address] [id number] [place] [address]- 5807 October, [facility] [address] [id number] [place] [address]- 4535 October, [facility] [address] [id number] [place] [address]- 2791 October, [facility] [address] [id number] [place] [address]- 0202 October, [facility] [address] [id number] [place] [address]- 7085 October, [facility] [address] [id number] [place] [address]- 3110 October, [facility] [place] [facility] [address] [id number] [place] [address]- 3544 October, [facility] [place] [facility] [address] [id number] [place] [address]- 6876 October, [facility] [place] [facility] [address] [id number] [place] [address]- 7723 October, [facility] [place] [facility] [address] [id number] [place] [address]- 6570 October, [facility] [place] [facility] [address] [id number] [place] [address]- 7080 October, [facility] [place] [facility] [address] [id number] [place] [address]- 8326 October, [facility] [place] [facility] [address] [id number] [place] [address]- 5575 Sep, [facility] [place] [facility] [address] [id number] [place] [address]- 8669 Sep, [facility] [place] [facility] [address] [id number] [place] [address]- 0068 Sep, [facility] [place] [facility] [address] [id number] [place] [address]- 9801 Sep, [facility] [place] [facility] [address] [id number] [place] [address]- 6746 Sep, [facility] [place] [facility] [address] [id number] [place] [address]- 4040 Sep, [facility] [place] [facility] [address] [id number] [place] [address]- 7645 Sep, [facility] [place] [facility] [address] [id number] [place] [address]- 1351 Sep, [facility] [place] [facility] [address] [id number] [place] [address]- 6108 Sep, [facility] [place] [facility] [address] [id number] [place] [address]- 2183 Sep, [facility] [place] [facility] [address] [id number] [place] [address]- 6820 Sep, [facility] [place] [facility] [address] [id number] [place] [address]- 0059 Sep, [facility] [place] [facility] [address] [id number] [place] [address]- 8043 Sep, [facility] [place] [facility] [address] [id number] [place] [address]- 9561 Sep, [facility] [place] [facility] [address] [id number] [place] [address]- 4796 Sep, [facility] [place] [facility] [address] [facility] [id number] [place] [address]- 0694 Sep, [facility] [place] [facility] [address] [id number] [place] [address]- 8300 Sep, [facility] [place] [facility] [address] [id number] [place] [address]- 2670 Sep, [facility] [place] [facility] [address] [id number] [place] [address]- 8434 Sep, [facility] [place] [facility] [address] [facility] [id number] [place] [address]- 8657 Aug, [facility] [place] [facility] [address] [id number] [place] [address]- 6493 Aug, [facility] [place] [facility] [address] [id number] [place] [address]- 1070 Aug, [facility] [place] [facility] [address] [facility] [id number] [place] [address]- 1677 Aug, [facility] [place] [facility] [address] [id number] [place] [address]- 7568 Jul, [facility] [place] [facility] [address] [id number] [place] [address]- 0783 Jul, [facility] [place] [facility] [address] [id number] [place] [address]- 9643 Jul, [facility] [place] [facility] [address] [id number] [place] [address]- 8764 Jul, [facility] [place] [facility] [address] [facility] [id number] [place] [address]- 0722 Jul, [facility] [place] [facility] [address] [id number] [place] [address]- 7468 14 Jul, 2013 [facility] [place] [facility] [address] [id number] [place] [address]- 3110 Jul, [facility] [place] [facility] [address] [id number] [place] [address]- 9473 Jul, [facility] [place] [facility] [address] [id number] [place] [address]- 9251 Jul, [facility] [place] [facility] [address] [id number] [place] [address]- 3748 Jul, [facility] [place] [facility] [address] [id number] [place] [address]- 1733 Jul, [facility] [place] [facility] [address] [id number] [place] [address]- 1672 Jul, [facility] [place] [facility] [address] [id number] [place] [address]- 5008 Jun, [facility] [place] [facility] [address] [id number] [place] [address]- 1650 Jun, [facility] [place] [facility] [address] [id number] [place] [address]- 2937 Jun, [facility] [place] [facility] [address] [id number] [place] [address]- 5991 Jun, [facility] [place] [facility] [address] [id number] [place] [address]- 6570 Jun, [facility] [place] [facility] [address] [id number] [place] [address]- 7800 Jun, [facility] [place] [facility] [address] [id number] [place] [address]- 7995 May, [facility] [place] [facility] [address] [id number] [place] [address]- 7938 May, [facility] [place] [facility] [address] [id number] [place] [address]- 8992 21 Apr, 2013 [facility] [address] [id number] [place] [address]- 8595 21 Apr, 2013 [facility] [place] [facility] [address] [id number] [place] [address]- 6602 19 Apr, 2013 [facility] [place] [facility] [address] [id number] [place] [address]- 8328 19 Apr, 2013 [facility] [place] [facility] [address] [id number] [place] [address]- 5807 18 Apr, 2013 [facility] [place] [facility] [address] [id number] [place] [address]- 9483 18 Apr, 2013 [facility] [place] [facility] [address] [id number] [place] [address]- 7751 17 Apr, 2013 [facility] [place] [facility] [address] [id number] [place] [address]- 6776 15 Apr, 2013 [facility] [place] [facility] [address] [id number] [place] [address]- 1509 15 Apr, 2013 [facility] [place] [facility] [address] [id number] [place] [address]- 2258 15 Apr, 2013 [facility] [place] [facility] [address] [facility] [id number] [place] [address]- 9431 15 Apr, 2013 [facility] [place] [facility] [address] [id number] [place] [address]- 7506 13 Apr, 2013 [facility] [place] [facility] [address] [id number], [place] [address]- 7103 Apr, [facility] [place] [facility] [address] [id number], [place] [address]- 6758 31 Mar, 2013 [facility] [place] [facility] [address] [id number] [place] [address]- 3381 Mar, [facility] [place] [facility] [address] [facility] [id number], [place] [address]- 0271 Mar, [facility] [place] [facility] [address] [id number] [place] [address]- 1120 25 Mar, 2012 [facility] [place] [facility] [address] [id number] [place] [address]- 3166 17 Mar, 2013 [facility] [place] [facility] [address] [id number] [place] [address]- 3763 17 Mar, 2012 [facility] [place] [facility] [address] [id number] [place] [address]- 3094 14 Mar, 2013 [facility] [place] [facility] [address] [id number] [place] [address]- 8927 14 Mar, 2013 [facility] [place] [facility] [address] [id number] [place] [address]- 8010 11 Mar, 2013 [facility] [place] [facility] [address] [id number] [place] [address] 11 Mar, 2013 [facility] [place] [facility] [address] [id number] [place] [address] 02 Mar, 2013 [facility] [place] [facility] [address] [id number] [place] [address] 276[address] 30 Feb, 2012 [facility] [place] [facility] [address] [id number] [place] [address] 10[address] 28 Feb, 2012 [facility] [place] [facility] [address] [id number] [place] [address] 27 Feb, 2012 [facility] [place] [facility] [address] [id number] [place] [address] 27 Feb, 2012 [facility] [place] [facility] [address] [id number] [place] [address] 20 Feb, 2012 [facility] [place] [facility] [address] [id number] [place] [address] 10 Feb, 2012 [facility] [place] [facility] [address] [id number] [place] [address] 29 Jan, 2013 [facility] [place] [facility] [address] [id number] [place] [address] Jan, [facility] [address] [id number] [place] [address] Dec, [facility] [place] [facility] [address] [id number] [place] [address] Dec, [facility] [place] [facility] [address] [id number] [place] [address] 30[address] Dec, [facility] [place] [facility] [address] [id number] [place] [address] Dec, [facility] [address] [id number] [place] [address] Nov, [facility] [place] [facility] [address] [id number] [place] [address] 18[address] Nov, [facility] [place] [facility] [address] [id number] [place] [address] Nov, [facility] [place] [facility] [address] [id number] [place] [address] 164[address] October, [facility] [address] [id number] [place] [address] October, [facility] [place] [facility] [address] [id number] [place] [address] October, [facility] [place] [facility] [address] [id number] [place] [address] 4[address] October, [facility] [place] [facility] [address] [id number] [place] [address] 6265 October, [facility] [place] [facility] [address] [id number] [place] [address] Sep, [facility] [place] [facility] [address] [id number] [place] [address] Sep, [facility] [place] [facility] [address] [id number] [place] [address] 97[address] Aug, [facility] [place] [facility] [address] [id number] [place] [address] 48[address] 15 Aug, 2012 [facility] [address] [id number] [place] [address] Aug, [facility] [place] [facility] [address] [id number] [place] [address] 2466 08 Aug, 2012 [facility] [place] [facility] [address] [id number] [place] [address] 8[address] Aug, [facility] [place] [facility] [address] [id number] [place] [address]004 18 Jul, 2012 [facility] [address] [id number] [place] [address] 18[address] Jul, [facility] [place] [facility] [address] [id number] [place] [address] 6[address] Jul, [facility] [place] [facility] [address] [id number] [place] [address] 3529 Jul, [facility] [address] [id number] [place] [address] 9[address] Jun, [facility] [place] [facility] [address] [id number] [place] [address] 6[address] Jun, [facility] [address] [id number] [place] [address] Jun, [facility] [place] [facility] [address] [id number] [place] [address] Jun, [facility] [place] [facility] [address] [id number] [place] [address] 7912 Jun, [facility] [place] [facility] [address] [id number] [place] [address] 3733 Jun, [facility] [place] [facility] [address] [id number] [place] [address] 9616 Jun, [facility] [place] [facility] [address] [id number] [place] [address]- 0474 Jun, [facility] [place] [facility] [address] [id number] [place] [address]- 5135 Jun, [facility] [place] [facility] [address] [id number] [place] [address]- 2076 Jun, [facility] [place] [facility] [address] [id number] [place] [address] 3737 Jun, [facility] [place] [facility] [address] [id number] [place] [address]594 May, [facility] [place] [facility] [address] [id number] [place] [address]- 9695 May, [facility] [place] [facility] [address] [id number] [place] [address]- 0283 Apr, [facility] [place] [facility] [address] [id number] [place] [address]- 6746 Apr, [facility] [place] [facility] [address] [id number], [place] [address] Mar, [facility] [place] [facility] [address] [id number] [place] [address] 3520 31 Mar, 2012 [facility] [place] [facility] [address] [id number], [place] [address] 30 Mar, 2012 [facility] [place] [facility] [address] [id number], [place] [address] 8[address] 30 Mar, 2012 [facility] [place] [facility] [address] [id number], [place] [address] Mar, [facility] [place] [facility] [address] [id number] [place] [address] 2759 Mar, [facility] [place] [facility] [address] [id number], [place] [address]- 46[address] 16 Mar, 2012 [facility] [place] [facility] [address] [id number] [place] [address]- 3424 Mar, [facility] [place] [facility] [address] [id number] [place] [address]- 1133 Mar, [facility] [place] [facility] [address] [id number] [place] [address] 5907 Feb, [facility] [place] [facility] [address] [id number] [place] [address] 2546 Jan, [facility] [place] [facility] [address] [id number] [place] [address] 2546 Jan, [facility] [place] [facility] [address] [id number] [place] [address]- 6358 Dec, [facility] [place] [facility] [address] [id number] [place] [address]- 2137 Dec, [facility] [place] [facility] [address] [id number] [place] [address]- 70[address] Dec, [facility] [place] [facility] [address] [id number] [place] [address] Nov, [facility] [place] [facility] [address] [id number] [place] [address] Nov, [facility] [place] [facility] [address] [id number] [place] [address] Nov, [facility] [place] [facility] [address] [id number] [place] [address] Nov, [facility] [place] [facility] [address] [id number] [place] [address] October, [facility] [place] [facility] [address] [id number] [place] [address] October, [facility] [place] [facility] [address] [id number] [place] [address] Sep, [facility] [place] [facility] [address] [id number] [place] [address] Sep, [facility] [place] [facility] [address] [id number] [place] [address] Aug, [facility] [place] [facility] [address] [id number] [place] [address] 10 Jul, 2011 [facility] [place] [facility] [address] [id number] [place] [address] 04 Jul, 2011 [facility] [place] [facility] [address] [id number] [place] [address] 02 Jul, 2011 [facility] [place] [facility] [address] [id number] [place] [address] Jul, [facility] [place] [facility] [address] [id number] [place] [address] Jun, [facility] [place] [facility] [address] [id number] [place] [address] 15 May, 2011 [facility] [place] [facility] [address] [id number] [place] [address] 15 May, 2011 [facility] [place] [facility] [address] [id number] [place] [address] 15 May, 2011 [facility] [place] [facility] [address] [id number] [place] [address] 13 May, 2011 [facility] [place] [facility] [address] [id number] [place] [address] 08 May, 2011 [facility] [place] [facility] [address] [id number] [place] [address] 14 Apr, 2011 [facility] [place] [facility] [address] [id number] [place] [address] 14 Apr, 2011 [facility] [place] [facility] [address] [id number] [place] [address] 14 Apr, 2011 [facility] [place] [facility] [address] [id number] [place] [address] 07 Apr, 2011 [facility] [place] [facility] [address] [id number] [place] [address] 02 Apr, 2011 [facility] [place] [facility] [address] [id number], [place] [address] Mar, [facility] [address] [facility] [id number], [place] [address] Mar, [facility] [address] [facility] [id number][place] [address] [address] Mar, [facility] [id number], [place] [address] Mar, [facility] [address] [facility] [id number], [place] [address] Mar, [facility] [address] [facility] [id number][place] [address] [address] Mar, [facility] [address] [id number] [address] [address] Mar, [facility] [id number], [place] [address] Mar, [facility] [id number], [place] [address] Feb, [facility] [id number] [address] May, [facility] [id number], [place] [address] May, [facility] [id number], [place] [address] May, [facility] [address] [id number], [place] [address] Apr, [facility] [id number], [place] [address] Mar, IMMUNIZATIONS No Known Immunizations SOCIAL HISTORY Never Assessed REASON FOR VISIT symptoms of low BS Pt states has had 2 episodes in the last 2 weeks of feeling week and sweaty, ate something sweet felt better then later got a massive headache now can't eat or drink anything sweet without getting sick at stomach and getting a headache. ANGELICA Connor PLAN OF CARE Activity Details Follow Up prn Reason:blood work VITAL SIGNS Height 69 in 2017-12-22 Weight 256.0 lbs 2017-12-22 Temperature 97.6 degrees Fahrenheit 2017-12-22 Heart Rate 100 bpm 2017-12-22 Respiratory Rate 20 2017-12-22 BMI 37.80 kg/m2 2017-12-22 Blood pressure systolic 124 mmHg 2017-12-22 Blood pressure diastolic 78 mmHg 2017-12-22 MEDICATIONS Medication Instructions Dosage Frequency Start Date End Date Duration Status Acyclovir 400 mg Orally 2 times a day TAKE ONE TABLET 12h 90 Active Omeprazole 20 MG TAKE ONE CAPSULE BY MOUTH ONCE DAILY 90 Active Ibuprofen 800 MG TAKE ONE TABLET BY MOUTH THREE TIMES DAILY WITH FOOD OR MILK 30 Active ProAir HFA 108 (90 Base) MCG/ACT Inhalation every 4 hrs 2 puffs as needed 4h Jun, 1 month Active Effexor XR 150 MG Orally Once a day 1 capsule 24h Aug, Active Neurontin 300 MG Orally two times a day 3 capsules 12h Aug, 30 days Active Lisinopril 40 MG TAKE ONE TABLET BY MOUTH ONCE DAILY 30 Active Alprazolam 2 MG Orally part of taper 1 tablet mornign and 0.5 tablet night Active Seroquel 50 mg Orally three times a day as needed for anxiety 1 tablet Mar, Active Hydrochlorothiazide 25 MG TAKE ONE TABLET BY MOUTH IN THE MORNING 90 Active Alprazolam 0.25 MG Orally daily 2 tablet 24h Nov, Active Gabapentin 300 MG TAKE THREE CAPSULES BY MOUTH TWICE DAILY 30 Active RESULTS No Results PROCEDURES No [...]
--- OUTSIDE RECORDS SUMMARY | 2018-08-19 09:20 | XMS REPORT ---
Author Author CURTIS GLENN Organization [facility] Address [address] [place] [address] Care Team Providers Care Manager Truck Name Role Phone HARSHSALVADOR GLENN Unavailable PROBLEMS Type Condition ICD9-CM Code AEZ50-UY Code Onset Dates Condition Status SNOMED Code Problem Mixed hyperlipidemia E78.2 Active 978946314 Problem Vitamin D deficiency E55.9 Active 31443175 Problem Essential hypertension I10 Active 00320058 Problem Mild intermittent asthma without complication J45.20 Active 191484754 Problem Generalized anxiety disorder F41.1 Active 96493633 Problem Gastroesophageal reflux disease, esophagitis presence not specified K21.9 Active 472251480 Problem Bipolar disorder, current episode mixed, moderate F31.62 Active 903488650 Problem Bipolar disorder F31.9 Active 56835559 Problem Panic disorder F41.0 Active 297351275 Problem Low back pain with sciatica, sciatica laterality unspecified, unspecified back pain laterality, unspecified chronicity M54.40 Active 575544267 Problem Acute right-sided low back pain with right-sided sciatica M54.41 Active 04544180 Problem Excessive thirst R63.1 Active 58077585 Problem Concussion without loss of consciousness, initial encounter S06.0X0A Active 93135221 Problem Primary insomnia F51.01 Active 352070731 Problem Anxiety F41.9 Active 02820412 Problem Hematuria R31.9 Active 48017752 Problem Hot flashes R23.2 Active 348441193 Problem Multiple fractures T07.XXXA Active 278715833 Problem Nausea R11.0 Active 456651002 Problem Hospital discharge follow-up Z09 Active 278707115 Problem Breast tenderness N64.4 Active 66896628 Problem Depression F32.9 Active 19978923 Problem Hidradenitis suppurativa L73.2 Active 05635221 Problem History of IBS Z87.19 Active 34843948227063 Problem Localized edema R60.0 Active 246743063 Problem Posttraumatic stress disorder F43.10 Active 70725777 Problem Genital herpes simplex, unspecified site A60.00 Active 25931023 Problem Tobacco use Z72.0 Active 472869183 ALLERGIES No Information ENCOUNTERS Encounter Location Date Diagnosis [place] [id number] [place] [address] 05384- 8626 Feb, [place] [address] [place] [address] [id number] [place] [address] 11406- 0560 Feb, [place] [address] [id number] [place] [address] 75120- 7763 Jan, Genital herpes simplex, unspecified site A60.00 [place] [address] [id number] [place] [address] 45359- 2749 Jan, Panic disorder F41.0 [place] [address] [id number] [place] [address] 67455- 6391 Dec, Diaphoresis R61 and Excessive thirst R63.1 [place] [id number] [place] [address] 03093- 6462 Dec, Panic disorder F41.0 ; Bipolar disorder, current episode mixed, moderate F31.62 and Generalized anxiety disorder F41.1 [place] [address] [place] [address] 06925- 9882 Dec, Panic disorder F41.0 [place] [address] [place] [address] 59267- 3141 Nov, Panic disorder F41.0 [place] [address] [id number] [place] [address] 54028- 5668 Nov, Panic disorder F41.0 ; Generalized anxiety disorder F41.1 and Bipolar disorder, current episode mixed, moderate F31.62 [place] [address] [place] [address] 11360- 1611 Nov, Panic disorder F41.0 [place] [address] [place] [address] 37746- 8253 Nov, Panic disorder F41.0 [place] [address] [id number] [place] [address] 32813- 1068 October, Panic disorder F41.0 [place] [address] [id number] [place] [address] 39036- 9513 October, Panic disorder F41.0 ; Generalized anxiety disorder F41.1 and Bipolar disorder, current episode mixed, moderate F31.62 [place] [address] 22712- 8038 October, Panic disorder F41.0 [place] [address] 95993- 3716 Sep, Hospital discharge follow-up Z09 ; Concussion without loss of consciousness, initial encounter S06.0X0A and Nausea R11.0 [place] [address] [id number] [place] [address] 18748- 5198 Sep, [place] [address] [id number] [place] [address] 35031- 3517 Sep, Panic disorder F41.0 [place] [address] 14107- 6763 Sep, [place] [address] [id number] [place] [address] 83112- 6980 Sep, Well woman exam with routine gynecological exam Z01.419 ; Multiple fractures T07.XXXA ; Hot flashes R23.2 ; Essential hypertension I10 ; Mixed hyperlipidemia E78.2 ; Genital herpes simplex, unspecified site A60.00 ; Alkaline phosphatase elevation R74.8 ; Dysuria R30.0 ; Vitamin D deficiency E55.9 ; Tobacco use Z72.0 ; High risk sexual behavior Z72.51 and Encounter for immunization Z23 [place] [address] [id number] [place] [address] 09146- 7676 Aug, Panic disorder F41.0 ; Generalized anxiety disorder F41.1 and Bipolar disorder, current episode mixed, moderate F31.62 [place] [address] [place] [address]- 3412 Aug, [facility] [address] [place] [address] 06914- 6386 Jul, Panic disorder F41.0 ; Generalized anxiety disorder F41.1 and Bipolar disorder, current episode mixed, moderate F31.62 [facility] [address] [place] [id number] [place] [address] 49709- 8406 Jul, [facility] [address] [id number] [place] [address] 69720- 1364 Jul, [facility] [address] [place] [id number] [place] [address] 42043- 1199 Jul, Effusion, right knee M25.461 ; Acute pain of right knee M25.561 and Acute pain of left knee M25.562 [place] [address] [id number] [place] [address] 44286- 1137 Jun, Bipolar disorder, current episode mixed, moderate F31.62 ; Generalized anxiety disorder F41.1 and Panic disorder F41.0 [place] [address] [id number] [place] [address] 37867- 8774 May, Bipolar disorder, current episode mixed, moderate F31.62 ; Generalized anxiety disorder F41.1 and Panic disorder F41.0 [place] [address] [place] [address] 25892- 4063 May, Bipolar disorder, current episode mixed, moderate F31.62 [facility] [address] [place] [address] 11383- 3080 May, Bipolar disorder, current episode mixed, moderate F31.62 [facility] [address] [place] [id number] [place] [address] 44275- 7918 Apr, Bipolar disorder, current episode mixed, moderate F31.62 ; Generalized anxiety disorder F41.1 and Panic disorder F41.0 [facility] [address] [place] [id number] [place] [address] 34795- 2910 Mar, [facility] [address] [place] [address] 86061- 8011 Mar, Bipolar disorder, current episode mixed, moderate F31.62 ; Generalized anxiety disorder F41.1 and Panic disorder F41.0 [facility] [address] [place] [id number] [place] [address] 11755- 7880 Feb, [facility] [address] [place] [id number] [place] [address] 34037- 5307 22 Feb, 2017 Posttraumatic stress disorder F43.10 [facility] [address] [place] [id number] [place] [address] 02408- 9389 20 Feb, 2017 Gastroesophageal reflux disease, esophagitis presence not specified K21.9 [facility] [address] [place] [id number] [place] [address] 13214- 4564 13 Feb, 2017 [facility] [address] [place] [id number] [place] [address] 81049- 3590 06 Feb, 2017 Knee pain, right anterior M25.561 [facility] [address] [place] [id number] [place] [address] 32600- 8334 05 Feb, 2017 HSV (herpes simplex virus) infection B00.9 [facility] [address] [place] [id number] [place] [address] 80728- 7514 Feb, [facility] [id number] [place] [address] 49315- 0892 Jan, [facility] [address] [place] [id number] [place] [address] 14304- 5346 Jan, Posttraumatic stress disorder F43.10 [facility] [address] [id number] [place] [address] 12481- 0378 Jan, Foot pain, left M79.672 [facility] [address] [place] [id number] [place] [address] 37442- 1501 Jan, [facility] [address] [place] [id number] [place] [address] 18017- 4410 Jan, Lumbar radiculopathy, acute M54.16 ; Muscle spasm of back M62.830 and Right hip pain M25.551 [facility] [address] [place] [id number] [place] [address] 59549- 4958 Jan, Lumbar radiculopathy, acute M54.16 [facility] [address] [place] [id number] [place] [address] 83145- 3313 Jan, [facility] [address] [place] [id number] [place] [address] 23737- 2728 Jan, [facility] [address] [place] [id number] [place] [address] 18787- 9028 Dec, Lumbar radiculopathy, acute M54.16 ; Acute renal insufficiency N28.9 and Muscle spasm of back M62.830 [facility] [address] [place] [id number] [place] [address] 43567- 4498 Dec, [facility] [address] [place] [id number] [place] [address] 83628- 6233 Dec, [facility] [address] [place] [id number] [place] [address] 15808- 7809 Dec, [facility] [address] [place] [address] 85515 -4314 Dec, Low back pain with sciatica, sciatica laterality unspecified, unspecified back pain laterality, unspecified chronicity M54.40 and Acute right-sided low back pain with right-sided sciatica M54.41 [facility] [address] [place] [id number] [place] [address] 74280- 1899 Dec, Posttraumatic stress disorder F43.10 [facility] [address] [place] [id number] [place] [address] 17545- 8596 Dec, [facility] [address] [place] [id number] [place] [address] 83568- 3880 Dec, Pain in right thigh M79.651 and Acute right-sided low back pain without sciatica M54.5 [facility] [address] [address]- 9257 10 Dec, 2016 Posttraumatic stress disorder F43.10 and Major depressive disorder, recurrent episode with anxious distress F33.9 [facility] [address] [address] -8035 08 Dec, 2016 [facility] [address] [place] [id number] [place] [address] 70447- 8023 Nov, [facility] [address] [place] [id number] [place] [address] 33431- 7737 October, [facility] [address] [place] [id number] [place] [address] 45178- 9482 October, [facility] [address] [place] [id number] [place] [address] 96439- 9881 October, Knee pain, right anterior M25.561 [facility] [address] [place] [id number] [place] [address] 38751- 3722 October, Knee pain, right anterior M25.561 [facility] [address] [place] [id number] [place] [address] 05359- 7409 October, [facility] [address] [place] [id number] [place] [address] 17088- 2681 October, [facility] [address] [address]- 4367 October, [facility] [address] [address]0630 Sep, [facility] [address] [place] [id number] [place] [address] 44560- 9007 Sep, [facility] [address] [place] [address] [address]- 6148 Sep, Essential hypertension I10 [facility] [address] [place] [id number] [place] [address] 30527- 5371 Sep, Essential hypertension I10 [place] [id number] [place] [id number] [place] [address] 35094- 9665 Sep, [facility] [address] [place] [id number] [place] [address] 46010- 2598 Sep, Posttraumatic stress disorder F43.10 and Major depressive disorder, recurrent episode with anxious distress F33.9 [place] [address] [place] [id number] [place] [address] 16847- 1552 Sep, Multiple fractures T14.8 ; Alkaline phosphatase elevation R74.8 and Vitamin D deficiency E55.9 [place] [address] [id number] [place] [address] 55346- 1036 Sep, [place] [address] [place] [id number] [place] [address] 64729- 2136 Sep, Elevated serum creatinine R79.89 ; Fracture of foot, left, closed, initial encounter S92.902A and Alkaline phosphatase elevation R74.8 [place] [address] [id number] [place] [address] 17447- 1185 Sep, Elevated serum creatinine R79.89 and Essential hypertension I10 [place] [address] [place] [id number] [place] [address] 13381- 2870 Sep, [place] [address] [place] [id number] [place] [address] 86542- 8586 Aug, Gastroesophageal reflux disease, esophagitis presence not specified K21.9 [place] [address] [place] [id number] [place] [address] 69870- 1153 Aug, Essential hypertension I10 ; Fracture of foot, left, closed , initial encounter S92.902A and Alkaline phosphatase elevation R74.8 [place] [address] [place] [id number] [place] [address] 39617- 3375 Jul, Genital herpes simplex, unspecified site A60.00 [place] [address] [place] [id number] [place] [address] 93565- 5666 Jul, Essential hypertension I10 [facility] [address] [address]- 2375 Jun, Cough R05 and Wheezing R06.2 [place] [address] [place] [id number] [place] [address] 11590- 8797 Jun, Essential hypertension I10 [place] [address] [place] [address] 58788- 8685 May, Essential hypertension I10 [place] [address] [place] [id number] [place] [address] 80126- 9104 May, Posttraumatic stress disorder F43.10 and Major depressive disorder, recurrent episode with anxious distress F33.9 [place] [address] [id number] [place] [address] 63913- 5920 Apr, [place] [address] [id number] [place] [address] 71380- 8159 Apr, [place] [address] [id number] [place] [address] 98815- 6131 Apr, [facility] [address] [place] [id number] [place] [address] 47830- 9958 Mar, [place] [address] [place] [id number] [place] [address] 27220- 7080 Feb, [place] [address] [place] [address] 74659- 5378 Jan, [place] [address] [place] [id number] [place] [address] 51991- 5647 Jan, Essential hypertension I10 ; Mixed hyperlipidemia E78.2 ; Gastroesophageal reflux disease, esophagitis presence not specified K21.9 ; Mild intermittent asthma without complication J45.20 ; Hidradenitis suppurativa L73.2 ; Migraine without status migrainosus, not intractable, unspecified migraine type G43.909 ; Genital herpes simplex, unspecified site A60.00 and Closed traumatic minimally displaced fracture of metatarsal bone of left foot S92.302A [facility] [address] [address] -2762 Jan, Localized edema R60.0 [facility] [address] [place] [id number] [place] [address] 50300- 5314 Dec, [facility] [address] [place] [id number] [place] [address] 60305- 6948 Dec, [facility] [id number] [place] [address] 27783- 4561 Dec, [facility] [address] [place] [id number] [place] [address] 86833 -2182 Dec, Cough R05 ; Tobacco dependence F17.200 and Costochondritis , acute M94.0 [facility] [address] [place] [id number] [place] [address] 74260- 8014 Dec, Major depression, recurrent F33.9 ; Bipolar disorder, unspecified F31.9 and Posttraumatic stress disorder F43.10 [facility] [address] [place] [address] 09079- 0985 Nov, [facility] [address] [place] [id number] [place] [address] 27660- 1317 Nov, [facility] [address] [place] [address] 55869- 5938 October, [facility] [address] [address] -[address] October, Acute upper respiratory infection, unspecified J06.9 [facility] [address] [address]- 1194 October, [facility] [id number] [place] [address] 23132- 9244 Sep, Bipolar affective disorder, remission status unspecified F31.9 and Post-traumatic stress disorder F43.10 [facility] [address] [address]- 4633 Sep, Bipolar disorder, unspecified F31.9 ; Posttraumatic stress disorder F43.10 and Major depression, recurrent F33.9 [place] [id number] [place] [address] 00105- 7020 16 Aug, 2015 Edema R60.9 ; Fatigue R53.83 and Polydipsia R63.1 [place] [address] [place] [id number] [place] [address] 87453- 4765 Aug, [facility] [address] [id number] [place] [address] 39896- 9291 Aug, [facility] [address] [id number] [place] [address] 59630- 8100 Jul, [place] [address] [place] [id number] [place] [address] 49120- 0641 Jul, [place] [address] [place] [id number] [place] [address] 94356- 7200 Jun, [place] [address] [place] [id number] [place] [address] 10227- 1018 Jun, [place] [address] [place] [id number] [place] [address] 77623- 3420 Jun, [place] [address] [place] [id number] [place] [address] 08237- 4982 Jun, [place] [address] [place] [address] 15282- 9878 May, Mixed hyperlipidemia E78.2 [place] [address] [address]- 8248 23 May, 2015 Well woman exam Z01.419 ; History of herpes simplex infection Z86.19 ; Papanicolaou smear Z12.4 ; History of depression Z86.59 ; History of anxiety Z86.59 ; Lipoma of other specified sites D17.79 ; Hidradenitis suppurativa L73.2 ; Routine screening for STI (sexually transmitted infection) Z11.3 and Tobacco use Z72.0 [place] [id number] [place] [address] 98373- 4598 May, Hematuria R31.9 ; Essential hypertension I10 ; Pure hypercholesterolemia E78.0 and Hidradenitis L73.2 [place] [id number] [place] [address] 45231- 7756 May, Upper respiratory symptom R09.89 and Allergic rhinitis J30.9 [place] [id number] [place] [address] 31072- 5618 May, [facility] [id number] [place] [address] 75069- 2976 May, [place] [id number] [place] [address] 72269- 9610 May, Bipolar disorder, unspecified F31.9 ; Posttraumatic stress disorder F43.10 and Major depression, recurrent F33.9 [place] [id number] [place] [address] 51410- 6445 May, [facility] [id number] [place] [address] 01134- 1315 May, [place] [id number] [place] [address] 88891- 5146 Apr, [facility] [id number] [place] [address] 71038- 7635 Apr, [facility] [id number] [place] [address] 39437- 9641 Mar, [facility] [id number] [place] [address] 11858- 7423 Mar, [facility] [id number] [place] [address] 80678- 0509 Mar, [facility] [id number] [place] [address] 18826- 6775 18 Feb, 2015 Major depressive disorder, recurrent episode, moderate 296.32 and Post traumatic stress disorder (PTSD) 309.81 [facility] [id number] [address]- 1428 10 Feb, 2015 [facility] [address] [address]- 6472 Feb, [facility] [address] [address]- 2056 Jan, Cough 786.2 [facility] [id number] [place] [address] 41319- 7455 Jan, Depression, major, recurrent, moderate 296.32 and Post traumatic stress disorder (PTSD) 309.81 [facility] [address] [place] [address] 26721- 8713 Jan, [facility] [id number] [place] [address] 23270- 9143 Dec, [facility] [address] [place] [address] 66288- 4590 Dec, Generalized anxiety disorder 300.02 and Depression, major, recurrent, moderate 296.32 [facility] [address] [address]- 0713 Dec, [facility] [address] [place] [address] 57291- 8410 Dec, High risk medication use V58.69 [facility] [address] [address]- 4307 Dec, High risk medication use V58.69 [facility] [address] [address]- 3347 Dec, [facility] [address] [address]- 1216 Nov, Generalized anxiety disorder 300.02 and Major depressive disorder, recurrent episode, moderate 296.32 [facility] [address] [address] Nov, Dental examination V72.2 [facility] [id number] [address] 17 Nov, 2014 Dental examination V72.2 [facility] [id number] [address] 2546 15 Nov, 2014 [facility] [address] [id number] Nov, Dental examination V72.2 [facility] [id number] [place] [id number] Nov, Dental examination V72.2 [facility] [id number] [place] [address] October, Major depressive disorder, recurrent episode, moderate 296.32 and Generalized anxiety disorder 300.02 [facility] [id number] [address] October, [facility] [id number] [address] October, [facility] [id number] [address] October, [facility] [id number] [address] 14 Sep, 2014 [facility] [id number] [address] Sep, [facility] [id number] [address] 17 Aug, 2014 [facility] [address] [facility] [id number] [place] [address] 17 Aug, 2014 [facility] [address] [id number] [address] Aug, [facility] [address] [facility] [id number] [place] [address] Aug, [facility] [id number] [address] Aug, [facility] [place] [facility] [address] [id number] [place] [address] Aug, [facility] [place] [facility] [address] [id number] [place] [address] Aug, [facility] [place] [facility] [address] [id number] [place] [address] Jul, 2014 [facility] [place] [facility] [address] [id number] [place] [address] Jul, 2014 [facility] [place] [facility] [address] [address] [id number] [place] [address] Jul, 2014 [facility] [place] [facility] [address] [id number] [place] [address]70 Jul, 2014 [facility] [place] [facility] [address] [id number] [place] [address] 9354 Jul, 2014 [facility] [place] [facility] [address] [id number] [place] [address] 2890 Jul, 2014 [facility] [place] [facility] [address] [id number] [place] [address]- 3926 Jul, 2014 [facility] [place] [facility] [address] [id number] [place] [address]- 1541 Jul, [facility] [place] [facility] [address] [id number] [place] [address]- 2014 Jul, [facility] [place] [facility] [address] [id number] [place] [address] 8488 Jun, [facility] [place] [facility] [address] [id number] [place] [address]- 2474 Jun, [facility] [place] [facility] [address] [id number] [place] [address]- 2817 Jun, [facility] [place] [facility] [address] [id number] [place] [address] 3410 Jun, [facility] [place] [facility] [address] [id number] [place] [address]- 3366 Jun, [facility] [place] [facility] [address] [id number] [place] [address]- 2365 Jun, [facility] [place] [facility] [address] [id number] [place] [address]- 5228 Jun, [facility] [place] [facility] [address] [id number] [place] [address]- 7752 Jun, [facility] [place] [facility] [address] [id number] [place] [address]- 1634 Jun, [facility] [place] [facility] [address] [id number] [place] [address]- 7668 Jun, [facility] [place] [facility] [address] [id number] [place] [address]- 1155 Jun, [facility] [place] [facility] [address] [id number] [place] [address]- 0158 Jun, [facility] [place] [facility] [address] [id number] [place] [address]- 0485 Jun, [facility] [place] [facility] [address] [id number] [place] [address]- 9474 Jun, [facility] [place] [facility] [address] [id number] [place] [address]- 4004 Jun, [facility] [place] [facility] [address] [id number] [place] [address]- 8545 Jun, [facility] [place] [facility] [address] [id number] [place] [address]- 4137 Jun, [facility] [place] [facility] [address] [id number] [place] [address]- 5318 Jun, [facility] [place] [facility] [address] [id number] [place] [address]- 8365 Jun, [facility] [place] [facility] [address] [id number] [place] [address]- 5306 Jun, [facility] [place] [facility] [address] [id number] [place] [address]- 5164 Jun, [facility] [place] [facility] [address] [id number] [place] [address]- 1165 Jun, [facility] [place] [facility] [address] [id number] [place] [address]- 8194 Jun, [facility] [place] [facility] [address] [id number] [place] [address]- 4264 Jun, [facility] [place] [facility] [address] [id number] [place] [address]- 4337 Jun, [facility] [place] [facility] [address] [id number] [place] [address]- 3508 May, [facility] [place] [facility] [address] [id number] [place] [address]- 3866 May, [facility] [place] [facility] [address] [id number] [place] [address]- 2969 May, [facility] [place] [facility] [address] [id number] [place] [address]- 8590 May, [facility] [place] [facility] [address] [id number] [place] [address]- 8579 May, [facility] [place] [facility] [address] [id number] [place] [address]- 1595 May, [facility] [place] [facility] [address] [id number] [place] [address]- 8003 May, [facility] [place] [facility] [address] [id number] [place] [address]- 4437 May, [facility] [place] [facility] [address] [id number] [place] [address]- 9514 May, [facility] [place] [facility] [address] [id number] [place] [address]- 9068 May, [facility] [place] [facility] [address] [id number] [place] [address]- 9984 May, [facility] [place] [facility] [address] [id number] [place] [address]- 6758 May, [facility] [place] [facility] [address] [id number] [place] [address]- 9124 May, [facility] [place] [facility] [address] [facility] [id number] [place] [address]- 6999 May, [facility] [place] [facility] [address] [id number] [place] [address]- 8722 May, [facility] [place] [facility] [address] [id number] [place] [address]- 8314 May, [facility] [place] [facility] [address] [id number] [place] [address]- 6404 May, [facility] [place] [facility] [address] [id number] [place] [address]- 6686 May, [facility] [place] [facility] [address] [id number] [place] [address]- 5185 Apr, [facility] [place] [facility] [address] [id number] [place] [address]- 1193 Apr, [facility] [place] [facility] [address] [id number] [place] [address]- 3052 Apr, [facility] [place] [facility] [address] [id number] [place] [address]- 0919 Apr, [facility] [place] [facility] [address] [id number] [place] [address]- 2966 Apr, [facility] [place] [facility] [address] [id number] [place] [address]- 0238 Apr, [facility] [place] [facility] [address] [id number] [place] [address]- 0697 Apr, [facility] [place] [facility] [address] [id number] [place] [address]- 2613 Apr, [facility] [place] [facility] [address] [id number] [place] [address]- 1392 Mar, [facility] [place] [facility] [address] [id number] [place] [address]- 1427 Mar, [facility] [place] [facility] [address] [id number] [place] [address]- 1620 Feb, [facility] [place] [facility] [address] [id number] [place] [address]- 7729 Feb, 2013 [facility] [place] [facility] [address] [id number] [place] [address]- 2544 Feb, [facility] [place] [facility] [address] [id number] [place] [address]- 5659 Feb, [facility] [place] [facility] [address] [id number] [place] [address]- 2453 Feb, [facility] [place] [facility] [address] [id number] [place] [address]- 0015 Feb, [facility] [place] [facility] [address] [id number] [place] [address]- 6258 Feb, [facility] [place] [facility] [address] [id number] [place] [address]- 6789 Feb, [facility] [place] [facility] [address] [id number] [place] [address]- 6437 Feb, [facility] [place] [facility] [address] [id number] [place] [address]- 2540 Feb, [facility] [place] [facility] [address] [id number] [place] [address]- 1138 Jan, [facility] [place] [facility] [address] [id number] [place] [address]- 7562 Jan, [facility] [place] [facility] [address] [id number] [place] [address]- 2123 Jan, [facility] [place] [facility] [address] [id number] [place] [address]- 3080 Jan, [facility] [place] [facility] [address] [id number] [place] [address]- 8378 Jan, [facility] [place] [facility] [address] [id number] [place] [address]- 8302 Jan, [facility] [place] [facility] [address] [id number] [place] [address]- 9456 Jan, [facility] [place] [facility] [address] [id number] [place] [address]- 8215 Jan, [facility] [place] [facility] [address] [id number] [place] [address]- 5997 Jan, [facility] [place] [facility] [address] [id number] [place] [address]- 7773 Jan, [facility] [place] [facility] [address] [id number] [place] [address]- 3494 Jan, [facility] [place] [facility] [address] [id number] [place] [address]- 5221 Jan, [facility] [place] [facility] [address] [id number] [place] [address]- 6058 Jan, [facility] [place] [facility] [address] [id number] [place] [address]- 1743 Dec, [facility] [place] [facility] [address] [id number] [place] [address]- 3664 Dec, [facility] [place] [facility] [address] [id number] [place] [address]- 4951 Dec, [facility] [place] [facility] [address] [id number] [place] [address]- 8856 Dec, [facility] [place] [facility] [address] [id number] [place] [address]- 3595 Dec, [facility] [place] [facility] [address] [id number] [place] [address]- 0609 Dec, [facility] [place] [facility] [address] [id number] [place] [address]- 6242 Dec, [facility] [place] [facility] [address] [id number] [place] [address]- 7581 Dec, [facility] [place] [facility] [address] [id number] [place] [address]- 6131 Dec, [facility] [place] [facility] [address] [id number] [place] [address]- 6514 Dec, [facility] [place] [facility] [address] [id number] [place] [address]- 4719 Dec, [facility] [place] [facility] [address] [id number] [place] [address]- 6650 Dec, [facility] [place] [facility] [address] [id number] [place] [address]- 7078 Dec, [facility] [place] [facility] [address] [id number] [place] [address]- 1218 Dec, [facility] [place] [facility] [address] [id number] [place] [address]- 7942 Nov, [facility] [place] [facility] [address] [id number] [place] [address]- 0360 Nov, [facility] [place] [facility] [address] [id number] [place] [address]- 1939 Nov, [facility] [place] [facility] [address] [id number] [place] [address]- 9808 Nov, [facility] [place] [facility] [address] [id number] [place] [address]- 7309 Nov, [facility] [place] [facility] [address] [id number] [place] [address]- 0129 Nov, [facility] [place] [facility] [address] [id number] [place] [address]- 2961 Nov, [facility] [place] [facility] [address] [id number] [place] [address]- 2833 Nov, [facility] [place] [facility] [address] [id number] [place] [address]- 7063 October, [facility] [address] [id number] [place] [address]- 0296 October, [facility] [place] [facility] [address] [id number] [place] [address]- 3786 October, [facility] [place] [facility] [address] [id number] [place] [address]- 1916 October, [facility] [place] [facility] [address] [id number] [place] [address]- 8435 October, [facility] [place] [facility] [address] [id number] [place] [address]- 5844 October, [facility] [place] [facility] [address] [id number] [place] [address]- 3134 October, [facility] [place] [facility] [address] [id number] [place] [address]- 2782 October, [facility] [address] [id number] [place] [address]- 9297 October, [facility] [place] [facility] [address] [id number] [place] [address]- 1259 October, [facility] [place] [facility] [address] [id number] [place] [address]- 3900 October, [facility] [place] [facility] [address] [id number] [place] [address]- 6050 October, [facility] [place] [facility] [address] [id number] [place] [address]- 1016 October, [facility] [place] [facility] [address] [id number] [place] [address]- 4466 October, [facility] [place] [facility] [address] [id number] [place] [address]- 5206 October, [facility] [place] [facility] [address] [id number] [place] [address]- 6945 October, [facility] [address] [id number] [place] [address]- 6521 Sep, [facility] [place] [facility] [address] [id number] [place] [address]- 3082 Sep, [facility] [place] [facility] [address] [id number] [place] [address]- 8369 Sep, [facility] [place] [facility] [address] [id number] [place] [address]- 9628 Sep, [facility] [place] [facility] [address] [id number] [place] [address]- 4281 Sep, [facility] [place] [facility] [address] [id number] [place] [address]- 6268 Sep, [facility] [place] [facility] [address] [id number] [place] [address]- 8434 Sep, [facility] [place] [facility] [address] [id number] [place] [address]- 9470 Sep, [facility] [place] [facility] [address] [id number] [place] [address]- 2048 Sep, [facility] [place] [facility] [address] [id number] [place] [address]- 4892 Sep, [facility] [place] [facility] [address] [id number] [place] [address]- 1772 Sep, [facility] [place] [facility] [address] [id number] [place] [address]- 3093 Sep, [facility] [place] [facility] [address] [id number] [place] [address]- 9601 Sep, [facility] [place] [facility] [address] [id number] [place] [address]- 4713 Sep, [facility] [place] [facility] [address] [id number] [place] [address]- 2428 Sep, [facility] [place] [facility] [address] [id number] [place] [address]- 8984 Sep, [facility] [place] [facility] [address] [id number] [place] [address]- 7211 Sep, [facility] [place] [facility] [address] [id number] [place] [address]54 Sep, [facility] [place] [facility] [address] [facility] [id number] [place] [address]- 6009 Sep, [facility] [place] [facility] [address] [id number] [place] [address]- 2599 Aug, [facility] [place] [facility] [address] [id number] [place] [address]- 1300 Aug, [facility] [place] [facility] [address] [facility] [id number] [place] [address]- 5051 Aug, [facility] [place] [facility] [address] [facility] [id number] [place] [address]- 1113 Aug, [facility] [place] [facility] [address] [facility] [id number] [place] [address]- 1452 Jul, [facility] [place] [facility] [address] [facility] [id number] [place] [address]- 8516 Jul, [facility] [place] [facility] [address] [facility] [id number] [place] [address]- 1258 Jul, [facility] [place] [facility] [address] [facility] [id number] [place] [address]- 1105 Jul, [facility] [place] [facility] [address] [facility] [id number] [place] [address]- 6934 Jul, [facility] [place] [facility] [address] [facility] [id number] [place] [address]- 6612 Jul, [facility] [place] [facility] [address] [facility] [id number] [place] [address]- 1179 Jul, [facility] [place] [facility] [address] [facility] [id number] [place] 6435 Jul, [facility] [place] [facility] [address] [id number] [place] [address]- 7810 Jul, [facility] [place] [facility] [address] [id number] [place] [address]- 3980 Jul, [facility] [place] [facility] [address] [id number] [place] [address]- 0610 Jul, [facility] [place] [facility] [address] [id number] [place] [address]- 8574 Jul, [facility] [place] [facility] [address] [id number] [place] [address]- 3237 Jun, [facility] [place] [facility] [address] [id number] [place] [address]- 4125 Jun, [facility] [place] [facility] [address] [id number] [place] [address]- 5929 Jun, [facility] [place] [facility] [address] [id number] [place] [address]- 7306 Jun, [facility] [place] [facility] [address] [id number] [place] [address]- 6656 Jun, [facility] [place] [facility] [address] [id number] [place] [address]- 1562 Jun, [facility] [place] [facility] [address] [id number] [place] [address]- 2660 May, [facility] [place] [facility] [address] [id number] [place] [address]- 4497 May, [facility] [place] [facility] [address] [id number] [place] [address]- 4756 Apr, [facility] [place] [facility] [address] [id number] [place] [address]- 4777 Apr, [facility] [place] [facility] [address] [id number] [place] [address]- 9991 Apr, [facility] [place] [facility] [address] [id number] [place] [address]- 1659 19 Apr, 2013 [facility] [address] [id number] [place] [address]- 4833 18 Apr, 2013 [facility] [place] [facility] [address] [id number] [place] [address]- 5856 18 Apr, 2013 [facility] [address] [id number] [place] [address]- 2479 17 Apr, 2013 [facility] [place] [facility] [address] [id number] [place] [address]- 1773 15 Apr, 2013 [facility] [address] [id number] [place] [address]- 0475 15 Apr, 2013 [facility] [place] [facility] [address] [id number] [place] [address]- 1030 15 Apr, 2013 [facility] [address] [id number] [place] [address]- 4672 15 Apr, 2013 [facility] [address] [id number] [place] [address]- 8238 13 Apr, 2013 [facility] [place] [facility] [address] [id number] [place] [address]- 5095 Apr, [facility] [address] [id number] [place] [address]- 6302 31 Mar, 2013 [facility] [place] [facility] [address] [id number] [place] [address]- 1880 31 Mar, 2013 [facility] [place] [facility] [address] [id number] [place] [address]- 8590 25 Mar, 2013 [facility] [place] [facility] [address] [id number] [place] [address]- 0632 25 Mar, 2013 [facility] [place] [facility] [address] [id number] [place] [address]- 4307 17 Mar, 2013 [facility] [place] [facility] [address] [id number] [place] [address]- 6504 17 Mar, 2013 [facility] [place] [facility] [address] [id number] [place] [address]- 1670 14 Mar, 2013 [facility] [place] [facility] [address] [id number] [place] [address]- 3372 14 Mar, 2013 [facility] [place] [facility] [address] [id number] [place] [address]- 4060 11 Mar, 2013 [facility] [place] [facility] [address] [id number] [place] [address]- 7565 11 Mar, 2013 [facility] [place] [facility] [address] [id number] [place] [address]- 0900 02 Mar, 2013 [facility] [place] [facility] [address] [id number] [place] [address]- 4887 30 Feb, 2013 [facility] [place] [facility] [address] [id number] [place] [address] 28 Feb, 2013 [facility] [place] [facility] [address] [id number] [place] [address] 27 Feb, 2013 [facility] [place] [facility] [address] [id number] [place] [address] 27 Feb, 2013 [facility] [place] [facility] [address] [id number] [place] [address] 20 Feb, 2013 [facility] [place] [facility] [address] [id number] [place] [address] 9[address] 10 Feb, 2013 [facility] [place] [facility] [address] [id number] [place] [address] Jan, [facility] [place] [facility] [address] [id number] [place] [address] Jan, [facility] [place] [facility] [address] [id number] [place] [address] Dec, [facility] [place] [facility] [address] [id number] [place] [address] 8847 Dec, [facility] [place] [facility] [address] [id number] [place] [address] 3921 15 Dec, 2012 [facility] [address] [id number] [place] [address] 77[address] Dec, [facility] [address] [id number] [place] [address] Nov, [facility] [address] [id number] [place] [address] Nov, [facility] [place] [facility] [address] [id number] [place] [address] 27[address] Nov, [facility] [address] [id number] [place] [address]20 October, [facility] [address] [id number] [place] [address] 8294 October, [facility] [address] [id number] [place] [address] October, [facility] [address] [id number] [place] [address] October, [facility] [address] [id number] [place] [address] 3048 October, [facility] [address] [id number] [place] [address]- [address] Sep, [facility] [address] [id number] [place] [address] 7267 Sep, [facility] [place] [facility] [address] [id number] [place] [address]- [address] Aug, [facility] [place] [facility] [address] [id number] [place] [address]- 2809 15 Aug, 2012 [facility] [place] [facility] [address] [id number] [place] [address] 3524 Aug, [facility] [place] [facility] [address] [id number] [place] [address]- 6975 08 Aug, 2012 [facility] [place] [facility] [address] [id number] [place] [address]- 9289 Aug, [facility] [address] [id number] [place] [address]- 30[address] 18 Jul, 2012 [facility] [place] [facility] [address] [id number] [place] [address] 39[address] Jul, [facility] [place] [facility] [address] [id number] [place] [address] 4[address] Jul, [facility] [place] [facility] [address] [id number] [place] [address]- 1787 Jul, [facility] [place] [facility] [address] [id number] [place] [address] 3086 Jun, [facility] [address] [id number] [place] [address] 2079 Jun, [facility] [address] [id number] [place] [address] 3947 Jun, [facility] [address] [id number] [place] [address] 389[address] Jun, [facility] [place] [facility] [address] [id number] [place] [address] 9267 Jun, [facility] [place] [facility] [address] [id number] [place] [address]758 Jun, [facility] [place] [facility] [address] [id number] [place] [address] 1096 Jun, [facility] [place] [facility] [address] [id number] [place] [address]- 3925 Jun, [facility] [place] [facility] [address] [id number] [place] [address]- 4353 Jun, [facility] [place] [facility] [address] [id number] [place] [address]- 5585 Jun, [facility] [place] [facility] [address] [id number] [place] [address] Jun, [facility] [place] [facility] [address] [id number] [place] [address]- 1213 May, [facility] [place] [facility] [address] [id number] [place] [address] 9746 May, [facility] [place] [facility] [address] [facility] [id number] [place] [address]- 8133 Apr, [facility] [place] [facility] [address] [id number] [place] [address]- 9023 Apr, [facility] [place] [facility] [address] [id number] [place] [address]- 1510 Mar, [facility] [place] [facility] [address] [id number] [place] [address]- 488[address] Mar, [facility] [place] [facility] [address] [id number] [place] [address]- 9163 Mar, [facility] [place] [facility] [address] [id number] [place] [address]- 0940 30 Mar, 2012 [facility] [place] [facility] [address] [id number] [place] [address]- 4752 Mar, [facility] [place] [facility] [address] [id number] [place] [address] Mar, [facility] [place] [facility] [address] [id number] [place] [address]- 3169 16 Mar, 2012 [facility] [place] [facility] [address] [id number] [place] [address]- 1734 Mar, [facility] [place] [facility] [address] [id number] [place] [address] 5823 Mar, [facility] [place] [facility] [address] [facility] [id number] [place] [address] 0686 Feb, [facility] [place] [facility] [address] [facility] [id number] [place] [address]- 2546 Jan, [facility] [place] [facility] [address] [id number] [place] [address]- 1572 Jan, [facility] [address] [id number] [place] [address] 5977 Dec, [facility] [place] [facility] [address] [id number] [place] [address]- 7086 Dec, [facility] [address] [id number] [place] [address]- 3608 Dec, [facility] [address] [id number] [place] [address] 8443 Nov, [facility] [address] [id number] [place] [address]- 3829 Nov, [facility] [address] [id number] [place] [address]- 4517 Nov, [facility] [address] [id number] [place] [address]- 2549 Nov, [facility] [address] [id number] [place] [address] 7329 October, [facility] [place] [facility] [address] [id number] [place] [address]- 8618 October, [facility] [address] [id number] [place] [address]- 4554 Sep, [facility] [place] [facility] [address] [id number] [place] [address]- 4089 Sep, [facility] [place] [facility] [address] [id number] [place] [address]- 8359 Aug, [facility] [place] [facility] [address] [id number] [place] [address]- 7629 Jul, [facility] [place] [facility] [address] [id number] [place] [address]- 2546 Jul, [facility] [place] [facility] [address] [id number] [place] [address] Jul, [facility] [place] [facility] [address] [id number] [place] [address] Jul, [facility] [place] [facility] [address] [id number] [place] [address] Jun, [facility] [place] [facility] [address] [id number] [place] [address] 15 May, 2011 [facility] [place] [facility] [address] [id number] [place] [address] 15 May, 2011 [facility] [place] [facility] [address] [id number] [place] [address] 15 May, 2011 [facility] [place] [facility] [address] [id number] [place] [address] May, [facility] [place] [facility] [address] [id number] [place] [address] 08 May, 2011 [facility] [place] [facility] [address] [id number] [place] [address] 14 Apr, 2011 [facility] [place] [facility] [address] [id number] [place] [address] 14 Apr, 2011 [facility] [place] [facility] [address] [id number] [place] [address] 14 Apr, 2011 [facility] [place] [facility] [address] [id number] [place] [address] Apr, [facility] [place] [facility] [address] [id number] [place] [address] 02 Apr, 2011 [facility] [place] [facility] [address] [id number] [place] [address] Mar, [facility] [place] [facility] [address] [id number] [place] [address] 25 Mar, 2011 [facility] [place] [facility] [address] [id number] [place] [address] 14 Mar, 2011 [facility] [place] [facility] [id number] [place] [address] 14 Mar, 2011 [facility] [id number] [place] [address] 13 Mar, 2011 [facility] [id number] [place] [address] Mar, [facility] [id number] [place] [address] Mar, [facility] [id number] [place] [address] Mar, [facility] [id number] [place] [address] Feb, [facility] [id number] [place] [address] May, [facility] [id number] [place] [address] May, [facility] [id number] [place] [address] May, [facility] [id number] [place] [address] Apr, [facility] [id number] [place] [address] Mar, IMMUNIZATIONS No Known Immunizations SOCIAL HISTORY Never Assessed REASON FOR VISIT f/Robb DOMINGUEZ PLAN OF CARE Activity Details Follow Up 4 weeks per her request Reason: VITAL SIGNS Height 69 in 2017-12-19 Weight 256.2 lbs 2017-12-19 Heart Rate 84 bpm 2017-12-19 Respiratory Rate 18 2017-12-19 BMI 37.83 kg/m2 2017-12-19 Blood pressure systolic 126 mmHg 2017-12-19 Blood pressure diastolic 86 mmHg 2017-12-19 MEDICATIONS Medication Instructions Dosage Frequency Start Date End Date Duration Status Effexor XR 150 MG Orally Once a day 1 capsule 24h 21 Aug, 2017 Active Neurontin 300 MG Orally two times a day 3 capsules 12h Aug, 30 days Active Cholecalciferol 400 UNIT Orally Once a day 2 tablets 24h Sep, 30 day(s) Not-Taking Zofran 4 MG Orally Twice a day 1 tablet 12h Sep, 30 day(s) Not -Taking Alprazolam 2 MG Orally part of taper 1 tablet mornign and 0.5 tablet night Active Omeprazole 20 MG TAKE ONE CAPSULE BY MOUTH ONCE DAILY 90 Active Hydrochlorothiazide 25 MG TAKE ONE TABLET BY MOUTH IN THE MORNING 90 Active Alprazolam 0.25 MG Orally daily 2 tablet 24h Nov, Active Seroquel 50 mg Orally three times a day as needed for anxiety 1 tablet Mar, Active ProAir HFA 108 (90 Base) MCG/ACT Inhalation every 4 hrs 2 puffs as needed 4h Jun, 1 month Active Gabapentin 300 MG TAKE THREE CAPSULES BY MOUTH TWICE DAILY 30 Active Lisinopril 40 MG TAKE ONE TABLET BY MOUTH ONCE DAILY 30 Active Lovastatin 40 mg Orally Once a day 1 tablet with a meal 24h Sep, 30 day(s) Not-Taking Sumatriptan Succinate 100 MG TAKE ONE TABLET BY MOUTH ONCE DAILY NEEDED MAY REPEAT IN 2 HOURS IF HEADACHE REOCCURS 14 Not-Taking Acyclovir 400 mg Orally 2 times a day TAKE ONE TABLET 12h 90 Active Latuda 20 MG Orally with breakfast daily one week then take 40mg with breakfast daily-has samples 1 tablet October, Not-Taking Ibuprofen 800 MG TAKE ONE TABLET BY MOUTH THREE TIMES DAILY WITH FOOD OR MILK 30 Active RESULTS No Results PROCEDURES No [...]
--- OUTSIDE RECORDS SUMMARY | 2018-08-19 09:21 | XMS REPORT ---
Author Author CURTIS GLENN Organization [facility] Address [address] [place] [address] Care Team Providers Care Golf Player Assistant Name Role Phone HARSHSALVADOR GLENN Unavailable PROBLEMS Type Condition ICD9-CM Code ICM39-ZK Code Onset Dates Condition Status SNOMED Code Problem Mixed hyperlipidemia E78.2 Active 985626953 Problem Vitamin D deficiency E55.9 Active 71765546 Problem Essential hypertension I10 Active 58441649 Problem Mild intermittent asthma without complication J45.20 Active 148090879 Problem Generalized anxiety disorder F41.1 Active 90905445 Problem Gastroesophageal reflux disease, esophagitis presence not specified K21.9 Active 086544224 Problem Bipolar disorder, current episode mixed, moderate F31.62 Active 789301437 Problem Bipolar disorder F31.9 Active 82847737 Problem Panic disorder F41.0 Active 046747387 Problem Low back pain with sciatica, sciatica laterality unspecified, unspecified back pain laterality, unspecified chronicity M54.40 Active 170164828 Problem Acute right-sided low back pain with right-sided sciatica M54.41 Active 46103965 Problem Excessive thirst R63.1 Active 92517553 Problem Concussion without loss of consciousness, initial encounter S06.0X0A Active 96808846 Problem Primary insomnia F51.01 Active 815787368 Problem Anxiety F41.9 Active 43419903 Problem Hematuria R31.9 Active 83175008 Problem Hot flashes R23.2 Active 427884200 Problem Multiple fractures T07.XXXA Active 911673969 Problem Nausea R11.0 Active 152910990 Problem Hospital discharge follow-up Z09 Active 686793200 Problem Breast tenderness N64.4 Active 50156833 Problem Depression F32.9 Active 29164460 Problem Hidradenitis suppurativa L73.2 Active 65141425 Problem History of IBS Z87.19 Active 99798749033439 Problem Localized edema R60.0 Active 399385106 Problem Posttraumatic stress disorder F43.10 Active 48527271 Problem Genital herpes simplex, unspecified site A60.00 Active 99066989 Problem Tobacco use Z72.0 Active 753952954 ALLERGIES No Information ENCOUNTERS Encounter Location Date Diagnosis [place] [id number] [place] [address] 83803- 2197 Feb, [facility] [id number] [place] [address] 69658- 0002 Jan, Genital herpes simplex, unspecified site A60.00 [place] [id number] [place] [address] 57114- 1501 Jan, Panic disorder F41.0 [place] [id number] [place] [address] 77517- 1456 Dec, Diaphoresis R61 and Excessive thirst R63.1 [place] [id number] [place] [address] 44847- 2931 Dec, Panic disorder F41.0 ; Bipolar disorder, current episode mixed, moderate F31.62 and Generalized anxiety disorder F41.1 [place] [id number] [place] [address] 25521- 7103 Dec, Panic disorder F41.0 [place] [address] [id number] [place] [address] 65939- 5380 Nov, Panic disorder F41.0 [place] [address] [id number] [place] [address] 28793- 7850 Nov, Panic disorder F41.0 ; Generalized anxiety disorder F41.1 and Bipolar disorder, current episode mixed, moderate F31.62 [place] [id number] [place] [address] 88749- 3405 Nov, Panic disorder F41.0 [place] [id number] [place] [address] 45030- 8912 Nov, Panic disorder F41.0 [place] [id number] [place] [address] 80780- 6522 October, Panic disorder F41.0 [place] [id number] [place] [address] 85531- 4068 October, Panic disorder F41.0 ; Generalized anxiety disorder F41.1 and Bipolar disorder, current episode mixed, moderate F31.62 [place] [address] [id number] [place] [address] 82276- 9911 October, Panic disorder F41.0 [place] [address] 37312- 5835 Sep, Hospital discharge follow-up Z09 ; Concussion without loss of consciousness, initial encounter S06.0X0A and Nausea R11.0 [place] [address] [id number] [place] [address] 55673- 8806 Sep, [place] [address] [id number] [place] [address] 55671- 9971 Sep, Panic disorder F41.0 [place] [address] [id number] [place] [address] 61035- 9042 Sep, [place] [address] [id number] [place] [address] 51345- 8367 Sep, Well woman exam with routine gynecological exam Z01.419 ; Multiple fractures T07.XXXA ; Hot flashes R23.2 ; Essential hypertension I10 ; Mixed hyperlipidemia E78.2 ; Genital herpes simplex, unspecified site A60.00 ; Alkaline phosphatase elevation R74.8 ; Dysuria R30.0 ; Vitamin D deficiency E55.9 ; Tobacco use Z72.0 ; High risk sexual behavior Z72.51 and Encounter for immunization Z23 [place] [address] [id number] [place] [address] 02164- 5739 Aug, Panic disorder F41.0 ; Generalized anxiety disorder F41.1 and Bipolar disorder, current episode mixed, moderate F31.62 [place] [address] [id number] [place] [address] 51504- 3930 Aug, [place] [address] [id number] [address] 0953 Jul, Panic disorder F41.0 ; Generalized anxiety disorder F41.1 and Bipolar disorder, current episode mixed, moderate F31.62 [facility] [address] [address]- 3955 Jul, [facility] [id number] [address]- 7666 Jul, [facility] [id number] [place] [address] 21659- 2734 Jul, Effusion, right knee M25.461 ; Acute pain of right knee M25.561 and Acute pain of left knee M25.562 [facility] [address] [address]- 2358 Jun, Bipolar disorder, current episode mixed, moderate F31.62 ; Generalized anxiety disorder F41.1 and Panic disorder F41.0 [facility] [address] [address]- 5221 May, Bipolar disorder, current episode mixed, moderate F31.62 ; Generalized anxiety disorder F41.1 and Panic disorder F41.0 [facility] [address] [address]- 1476 May, Bipolar disorder, current episode mixed, moderate F31.62 [facility] [id number] [address]- 1740 May, Bipolar disorder, current episode mixed, moderate F31.62 [facility] [address] [address]- 9649 Apr, Bipolar disorder, current episode mixed, moderate F31.62 ; Generalized anxiety disorder F41.1 and Panic disorder F41.0 [facility] [address] [address]- 1138 Mar, [facility] [address] [place] [address] 89444- 0943 Mar, Bipolar disorder, current episode mixed, moderate F31.62 ; Generalized anxiety disorder F41.1 and Panic disorder F41.0 [facility] [address] 75400- 4509 Feb, [place] [address] [address] [id number] [place] [address] 82510- 9466 Feb, Posttraumatic stress disorder F43.10 [place] [address] 76096- 1094 20 Feb, 2017 Gastroesophageal reflux disease, esophagitis presence not specified K21.9 [place] [address] 40258- 6312 13 Feb, 2017 [place] [address] 39526- 1269 06 Feb, 2017 Knee pain, right anterior M25.561 [place] [address] 20648- 4881 05 Feb, 2017 HSV (herpes simplex virus) infection B00.9 [place] [address] [id number] [place] [address] 73139- 1300 Feb, [place] [address] [place] [address] [id number] [place] [address] 98626- 6947 Jan, [place] [address] [place] [address] [id number] [place] [address] 34435- 2149 Jan, Posttraumatic stress disorder F43.10 [place] [address] [place] [id number] [place] [address] 18587- 1046 Jan, Foot pain, left M79.672 [place] [address] 37844- 3123 Jan, [place] [address] [address] [id number] [place] [address] 31128- 7603 Jan, Lumbar radiculopathy, acute M54.16 ; Muscle spasm of back M62.830 and Right hip pain M25.551 [facility] [address] [address]- 1517 Jan, Lumbar radiculopathy, acute M54.16 [facility] [id number] [place] [address] 10754- 7189 Jan, [facility] [id number] [place] [address] 71884- 5964 Jan, [facility] [id number] [place] [address] 62207- 6788 Dec, Lumbar radiculopathy, acute M54.16 ; Acute renal insufficiency N28.9 and Muscle spasm of back M62.830 [facility] [address] [id number] [place] [address] 28102- 4564 Dec, [facility] [address] [id number] [place] [address] 62428- 1392 Dec, [facility] [address] [id number] [place] [address] 06093- 0529 Dec, [facility] [id number] [place] [address] 76126 -1480 Dec, Low back pain with sciatica, sciatica laterality unspecified, unspecified back pain laterality, unspecified chronicity M54.40 and Acute right-sided low back pain with right-sided sciatica M54.41 [facility] [id number] [place] [address] 08297- 6349 Dec, Posttraumatic stress disorder F43.10 [facility] [id number] [place] [address] 72962- 7310 Dec, [facility] [address] [id number] [place] [address] 66400- 8403 Dec, Pain in right thigh M79.651 and Acute right-sided low back pain without sciatica M54.5 [facility] [address] [id number] [place] [address] 75745- 2224 Dec, Posttraumatic stress disorder F43.10 and Major depressive disorder, recurrent episode with anxious distress F33.9 [facility] [id number] [address] 08 Dec, 2016 [facility] [id number] [address]- 5433 Nov, [facility] [id number] [place] [address] 48363- 9089 October, [facility] [id number] [place] [address] 73810- 8787 October, [facility] [id number] [place] [address] 59411- 7575 October, Knee pain, right anterior M25.561 [facility] [id number] [place] [address] 75133- 6224 October, Knee pain, right anterior M25.561 [facility] [id number] [address]- 3765 October, [facility] [id number] [place] [address] 02642- 1831 October, [facility] [id number] [address]- 4476 October, [facility] [id number], [place] [address] -3109 Sep, [facility] [id number] [address]- 1592 Sep, [facility] [id number] [address]- 0409 Sep, Essential hypertension I10 [facility] [id number] [address]- 9067 11 Sep, 2016 Essential hypertension I10 [facility] [id number] [address]- 9837 Sep, [place] [address] [id number] [place] [address] 58388- 9378 Sep, Posttraumatic stress disorder F43.10 and Major depressive disorder, recurrent episode with anxious distress F33.9 [place] [address] [place] [id number] [place] [address] 58895- 2169 Sep, Multiple fractures T14.8 ; Alkaline phosphatase elevation R74.8 and Vitamin D deficiency E55.9 [place] [address] 73956- 4981 Sep, [place] [address] 16256- 2205 Sep, Elevated serum creatinine R79.89 ; Fracture of foot, left, closed, initial encounter S92.902A and Alkaline phosphatase elevation R74.8 [place] [address] [place] [id number] [place] [address] 99617- 8067 Sep, Elevated serum creatinine R79.89 and Essential hypertension I10 [place] [address] [place] [id number] [place] [address] 00906- 1565 Sep, [place] [address] [place] [address] [id number] [place] [address] 92377- 1596 Aug, Gastroesophageal reflux disease, esophagitis presence not specified K21.9 [place] [address] [place] [id number] [place] [address] 92315- 7970 Aug, Essential hypertension I10 ; Fracture of foot, left, closed , initial encounter S92.902A and Alkaline phosphatase elevation R74.8 [place] [address] [place] [id number] [place] [address] 06213- 3105 Jul, Genital herpes simplex, unspecified site A60.00 [place] [address] [place] [id number] [place] [address] 85504- 0871 Jul, Essential hypertension I10 [place] [address] 80827- 2747 Jun, Cough R05 and Wheezing R06.2 [facility] [id number] [place] [address] 24627- 2167 Jun, Essential hypertension I10 [facility] [id number] [place] [address] 10012- 6842 May, Essential hypertension I10 [facility] [id number] [place] [address] 15355- 5291 May, Posttraumatic stress disorder F43.10 and Major depressive disorder, recurrent episode with anxious distress F33.9 [facility] [id number] [place] [address] 95726- 9239 Apr, [facility] [id number] [place] [address] 09729- 3517 Apr, [facility] [id number] [place] [address] 86542- 2014 Apr, [facility] [id number] [place] [address] 29834- 0136 Mar, [facility] [id number] [place] [address] 87079- 8118 Feb, [facility] [id number] [place] [address] 15177- 5801 Jan, [facility] [id number] [place] [address] 85336- 7791 Jan, Essential hypertension I10 ; Mixed hyperlipidemia E78.2 ; Gastroesophageal reflux disease, esophagitis presence not specified K21.9 ; Mild intermittent asthma without complication J45.20 ; Hidradenitis suppurativa L73.2 ; Migraine without status migrainosus, not intractable, unspecified migraine type G43.909 ; Genital herpes simplex, unspecified site A60.00 and Closed traumatic minimally displaced fracture of metatarsal bone of left foot S92.302A [facility] [id number], [place] [address]25 Jan, Localized edema R60.0 [facility] [id number], [place] [address]- 5189 Dec, [facility] [id number] [place] [address] 65101- 0119 Dec, [facility] [id number] [place] [address] 60151- 5637 Dec, [facility] [id number] [place] [address] 32463 -2884 Dec, Cough R05 ; Tobacco dependence F17.200 and Costochondritis , acute M94.0 [facility] [id number] [place] [address] 00049- 5728 Dec, Major depression, recurrent F33.9 ; Bipolar disorder, unspecified F31.9 and Posttraumatic stress disorder F43.10 [facility] [id number] [place] [address] 15058- 4465 Nov, [facility] [id number] [place] [address] 67692- 4347 Nov, [facility] [id number] [place] [address] 67108- 6627 October, [facility] [id number] [place] [address] 51564 -8572 October, Acute upper respiratory infection, unspecified J06.9 [facility] [id number] [place] [address] 10019- 8425 October, [facility] [id number] [place] [address] 47156- 3477 Sep, Bipolar affective disorder, remission status unspecified F31.9 and Post-traumatic stress disorder F43.10 [facility] [id number], [place] [address]- 5695 Sep, Bipolar disorder, unspecified F31.9 ; Posttraumatic stress disorder F43.10 and Major depression, recurrent F33.9 [facility] [id number] [place] [address] 75907- 1765 16 Aug, 2015 Edema R60.9 ; Fatigue R53.83 and Polydipsia R63.1 [facility] [id number] [place] [address] 17126- 4806 07 Aug, 2015 [facility] [id number] [place] [address] 48136- 7424 Aug, [facility] [address] 14226- 5445 Jul, [facility] [address] 42198- 3675 Jul, [facility] [address] 64734- 4290 Jun, [facility] [id number] [place] [address] 68206- 8556 Jun, [facility] [id number] [place] [address] 34069- 4998 Jun, [facility] [id number] [place] [address] 93088- 4165 Jun, [facility] [id number] [place] [address] 02968- 6596 May, Mixed hyperlipidemia E78.2 [place] [id number] [place] [address] 76949- 4568 May, Well woman exam Z01.419 ; History of herpes simplex infection Z86.19 ; Papanicolaou smear Z12.4 ; History of depression Z86.59 ; History of anxiety Z86.59 ; Lipoma of other specified sites D17.79 ; Hidradenitis suppurativa L73.2 ; Routine screening for STI (sexually transmitted infection) Z11.3 and Tobacco use Z72.0 [facility] [id number] [place] [address] 01004- 9290 May, Hematuria R31.9 ; Essential hypertension I10 ; Pure hypercholesterolemia E78.0 and Hidradenitis L73.2 [facility] [id number] [place] [address] 62745- 2846 May, Upper respiratory symptom R09.89 and Allergic rhinitis J30.9 [facility] [id number] [place] [address] 69726- 6801 May, [facility] [id number] [place] [address] 78532- 2019 May, [facility] [id number] [place] [address] 21043- 4207 May, Bipolar disorder, unspecified F31.9 ; Posttraumatic stress disorder F43.10 and Major depression, recurrent F33.9 [facility] [id number] [place] [address] 47620- 0879 May, [facility] [id number] [place] [address] 62804- 4423 May, [facility] [id number] [place] [address] 88199- 2676 Apr, [facility] [id number] [place] [address] 45215- 5899 Apr, [facility] [id number] [place] [address] 57154- 8068 Mar, [facility] [id number] [place] [address] 10127- 9501 Mar, [facility] [id number] [place] [address] 56977- 6529 Mar, [facility] [id number] [place] [address] 26357- 2603 18 Feb, 2015 Major depressive disorder, recurrent episode, moderate 296.32 and Post traumatic stress disorder (PTSD) 309.81 [facility] [id number] [place] [address] 12596- 9362 10 Feb, 2015 [facility] [id number] 9371 08 Feb, 2015 [facility] [id number], [place] [address]- 7082 Jan, Cough 786.2 [facility] [id number] [place] [address] 948635- 0797 Jan, Depression, major, recurrent, moderate 296.32 and Post traumatic stress disorder (PTSD) 309.81 [facility] [id number], [place] [address]- 8809 Jan, [facility] [id number] [place] [address] 18983- 5301 Dec, [facility] [id number] [place] [address] 02940- 7547 Dec, Generalized anxiety disorder 300.02 and Depression, major, recurrent, moderate 296.32 [facility] [id number] [place] [address] 60872- 5505 Dec, [facility] [id number] [place] [address] 60937- 4165 Dec, High risk medication use V58.69 [facility] [id number], [place] [address]- 1886 Dec, High risk medication use V58.69 [facility] [id number], [place] [address]- 7824 Dec, [facility] [id number] [address]- 7110 Nov, Generalized anxiety disorder 300.02 and Major depressive disorder, recurrent episode, moderate 296.32 [facility] [id number] [place] [address] [id number] Nov, Dental examination V72.2 [facility] [id number] [address] Nov, Dental examination V72.2 [facility] [id number] [address]- 2546 15 Nov, 2014 [facility] [id number] [id number] Nov, Dental examination V72.2 [facility] [id number] [address] 09 Nov, 2014 Dental examination V72.2 [facility] [id number] [place] [address] 11904- 0026 October, Major depressive disorder, recurrent episode, moderate 296.32 and Generalized anxiety disorder 300.02 [facility] [id number], [place] [address] 2546 October, [facility] [id number] [address]- 3986 October, [facility] [id number], [place] [address] 2546 October, [facility] [id number] [address] Sep, [facility] [id number] [address] Sep, [facility] [id number] [address] Aug, [facility] [id number] [address] 17 Aug, 2014 [facility] [facility] [address] [id number] [address] Aug, [facility] [address] [id number] [address] 25[address] Aug, [facility] [address] [id number] [address] 10 Aug, 2014 [facility] [address] [id number] [address] 03 Aug, 2014 [facility] [place] [facility] [address] [id number] [place] [address] Aug, [facility] [place] [facility] [address] [id number] [place] [address] 5679 Jul, 2014 [facility] [place] [facility] [address] [id number] [place] [address] 1052 Jul, 2014 [facility] [place] [facility] [address] [id number] [place] [address]- 4443 Jul, 2014 [facility] [place] [facility] [address] [id number] [place] [address]- 4104 Jul, 2014 [facility] [place] [facility] [address] [id number] [place] [address] 7910 Jul, 2014 [facility] [place] [facility] [address] [id number] [place] [address]- 5087 Jul, 2014 [facility] [place] [facility] [address] [id number] [place] [address]- 6295 Jul, 2014 [facility] [place] [facility] [address] [id number] [place] [address]- 8483 Jul, [facility] [place] [facility] [address] [facility] [id number] [place] [address]- 5571 Jul, [facility] [place] [facility] [address] [id number] [place] [address]- 6562 Jun, [facility] [place] [facility] [address] [id number], [place] [address] Jun, [facility] [place] [facility] [address] [id number] [place] [address]- 8050 Jun, [facility] [place] [facility] [address] [id number] [place] [address]- 2225 Jun, [facility] [place] [facility] [address] [id number] [place] [address]- 0247 Jun, [facility] [place] [facility] [address] [id number] [place] [address]- 4432 Jun, [facility] [place] [facility] [address] [id number] [place] [address]- 7166 Jun, [facility] [place] [facility] [address] [id number] [place] [address]- 1647 Jun, [facility] [place] [facility] [address] [id number] [place] [address]- 8587 Jun, [facility] [place] [facility] [address] [id number] [place] [address]- 6269 Jun, [facility] [place] [facility] [address] [id number] [place] [address]- 3186 Jun, [facility] [place] [facility] [address] [id number] [place] [address]- 6826 Jun, [facility] [place] [facility] [address] [id number] [place] [address]- 9093 Jun, [facility] [place] [facility] [address] [id number] [place] [address]- 3549 Jun, [facility] [place] [facility] [address] [id number] [place] [address]- 0264 Jun, [facility] [place] [facility] [address] [id number] [place] [address]- 1178 Jun, [facility] [place] [facility] [address] [id number] [place] [address]- 7274 Jun, [facility] [place] [facility] [address] [id number] [place] [address]- 1187 Jun, [facility] [place] [facility] [address] [id number] [place] [address]- 4682 Jun, [facility] [place] [facility] [address] [id number] [place] [address]- 8324 Jun, [facility] [place] [facility] [address] [id number] [place] [address]- 3101 Jun, [facility] [place] [facility] [address] [id number] [place] [address]- 4521 Jun, [facility] [place] [facility] [address] [id number] [place] [address]- 3249 Jun, [facility] [place] [facility] [address] [id number] [place] [address]- 4704 Jun, [facility] [place] [facility] [address] [id number] [place] [address]- 0991 Jun, [facility] [place] [facility] [address] [id number] [place] [address]- 7855 May, [facility] [place] [facility] [address] [id number] [place] [address]- 2504 May, [facility] [place] [facility] [address] [id number] [place] [address]- 9339 May, [facility] [place] [facility] [address] [id number] [place] [address]- 9784 May, [facility] [place] [facility] [address] [id number] [place] [address]- 2220 May, [facility] [place] [facility] [address] [id number] [place] [address]- 6170 May, [facility] [place] [facility] [address] [id number] [place] [address]- 2477 May, [facility] [place] [facility] [address] [id number] [place] [address]- 7409 May, [facility] [place] [facility] [address] [id number] [place] [address]- 8940 May, [facility] [place] [facility] [address] [id number] [place] [address]- 1884 May, [facility] [place] [facility] [address] [id number] [place] [address]- 9476 May, [facility] [place] [facility] [address] [id number] [place] [address]- 2726 May, [facility] [place] [facility] [address] [id number] [place] [address]- 2105 May, [facility] [place] [facility] [address] [id number] [place] [address] May, [facility] [place] [facility] [address] [facility] [id number] [place] [address] May, [facility] [place] [facility] [address] [id number] [place] [address] May, [facility] [place] [facility] [address] [id number] [place] [address]- 8658 May, [facility] [place] [facility] [address] [id number] [place] [address]- 6725 May, [facility] [place] [facility] [address] [id number] [place] [address]- 2588 Apr, [facility] [place] [facility] [address] [id number], [place] [address]- 4483 Apr, [facility] [place] [facility] [address] [id number] [place] [address]- 0666 Apr, [facility] [place] [facility] [address] [id number] [place] [address]- 8010 Apr, [facility] [place] [facility] [address] [id number], [place] [address]- 5180 Apr, [facility] [place] [facility] [address] [id number], [place] [address]- 2674 Apr, [facility] [place] [facility] [address] [id number] [place] [address]- 5749 Apr, [facility] [place] [facility] [address] [id number], [place] [address]- 0140 Apr, [facility] [place] [facility] [address] [id number], [place] [address]- 0304 Mar, [facility] [place] [facility] [address] [id number] [place] [address]- 1731 Mar, [facility] [place] [facility] [address] [id number] [place] [address]- 5112 Feb, 2013 [facility] [place] [facility] [address] [id number] [place] [address] 2546 Feb, 2013 [facility] [place] [facility] [address] [id number] [place] [address]- 3149 Feb, 2013 [facility] [place] [facility] [address] [id number] [place] [address] 2545 Feb, 2013 [facility] [place] [facility] [address] [id number] [place] [address]- 1214 Feb, [facility] [place] [facility] [address] [id number] [place] [address]- 6749 Feb, [facility] [place] [facility] [address] [id number] [place] [address]- 3314 Feb, [facility] [place] [facility] [address] [id number] [place] [address]- 1658 Feb, [facility] [place] [facility] [address] [id number] [place] [address]- 8001 Feb, [facility] [place] [facility] [address] [id number] [place] [address]- 9214 Feb, [facility] [place] [facility] [address] [id number] [place] [address]- 4714 Jan, [facility] [place] [facility] [address] [id number] [place] [address]- 7911 Jan, [facility] [place] [facility] [address] [id number] [place] [address]- 1519 Jan, [facility] [place] [facility] [address] [id number] [place] [address]- 2576 Jan, [facility] [place] [facility] [address] [id number] [place] [address]- 1617 Jan, [facility] [place] [facility] [address] [id number] [place] [address]- 2910 Jan, [facility] [place] [facility] [address] [id number] [place] [address]- 2436 Jan, [facility] [place] [facility] [address] [id number] [place] [address]- 3438 Jan, [facility] [place] [facility] [address] [id number] [place] [address]- 5022 Jan, [facility] [place] [facility] [address] [id number] [place] [address]- 2211 Jan, [facility] [place] [facility] [address] [id number] [place] [address]- 7583 Jan, [facility] [place] [facility] [address] [id number] [place] [address]- 4417 Jan, [facility] [place] [facility] [address] [id number] [place] [address]- 7917 Jan, [facility] [place] [facility] [address] [id number] [place] [address]- 6767 Dec, [facility] [place] [facility] [address] [id number] [place] [address]- 1972 Dec, [facility] [place] [facility] [address] [id number] [place] [address]- 2861 Dec, [facility] [place] [facility] [address] [id number] [place] [address]- 7811 Dec, [facility] [place] [facility] [address] [id number] [place] [address]- 4945 Dec, [facility] [place] [facility] [address] [id number] [place] [address]- 1437 Dec, [facility] [place] [facility] [address] [id number] [place] [address]- 5134 Dec, [facility] [place] [facility] [address] [id number] [place] [address]- 8693 Dec, [facility] [place] [facility] [address] [id number] [place] [address]- 4013 Dec, [facility] [place] [facility] [address] [id number] [place] [address]- 8872 Dec, [facility] [place] [facility] [address] [id number] [place] [address]- 6964 Dec, [facility] [place] [facility] [address] [id number] [place] [address]- 0364 Dec, [facility] [place] [facility] [address] [id number] [place] [address]- 1106 Dec, [facility] [place] [facility] [address] [id number] [place] [address]- 9122 Dec, [facility] [place] [facility] [address] [id number] [place] [address]- 2668 Nov, [facility] [place] [facility] [address] [id number] [place] [address]- 2627 Nov, [facility] [place] [facility] [address] [id number] [place] [address]- 2585 Nov, [facility] [place] [facility] [address] [id number] [place] [address]- 1953 Nov, [facility] [place] [facility] [address] [id number] [place] [address]- 1292 Nov, [facility] [place] [facility] [address] [id number] [place] [address]- 8912 Nov, [facility] [place] [facility] [address] [id number] [place] [address]- 1727 Nov, [facility] [place] [facility] [address] [id number] [place] [address]- 1706 Nov, [facility] [place] [facility] [address] [id number] [place] [address]- 7526 October, [facility] [place] [facility] [address] [id number] [place] [address]- 7663 October, [facility] [address] [id number] [place] [address]- 3486 October, [facility] [place] [facility] [address] [id number] [place] [address]- 7136 October, [facility] [address] [id number] [place] [address]- 3961 October, [facility] [place] [facility] [address] [id number] [place] [address]- 9115 October, [facility] [place] [facility] [address] [id number] [place] [address]- 3678 October, [facility] [place] [facility] [address] [id number] [place] [address]- 6947 October, [facility] [address] [id number] [place] [address]- 5216 October, [facility] [address] [id number] [place] [address]- 1279 October, [facility] [place] [facility] [address] [id number] [place] [address]- 2523 October, [facility] [place] [facility] [address] [id number] [place] [address]- 8325 October, [facility] [place] [facility] [address] [id number] [place] [address]- 8920 October, [facility] [place] [facility] [address] [id number] [place] [address]- 8593 October, [facility] [place] [facility] [address] [id number] [place] [address]- 4796 October, [facility] [place] [facility] [address] [id number] [place] [address]- 0176 October, [facility] [place] [facility] [address] [id number] [place] [address]- 7636 Sep, [facility] [place] [facility] [address] [id number] [place] [address]- 6364 Sep, [facility] [place] [facility] [address] [id number] [place] [address]- 4075 Sep, [facility] [place] [facility] [address] [id number] [place] [address]- 6294 Sep, [facility] [place] [facility] [address] [id number] [place] [address]- 8408 Sep, [facility] [place] [facility] [address] [id number] [place] [address]- 2765 Sep, [facility] [place] [facility] [address] [id number] [place] [address]- 1512 Sep, [facility] [place] [facility] [address] [id number] [place] [address]- 4076 Sep, [facility] [place] [facility] [address] [id number] [place] [address]- 8057 Sep, [facility] [place] [facility] [address] [id number] [place] [address]- 7972 Sep, [facility] [place] [facility] [address] [id number] [place] [address]- 9170 Sep, [facility] [place] [facility] [address] [id number] [place] [address]- 3850 Sep, [facility] [place] [facility] [address] [id number] [place] [address]- 0016 Sep, [facility] [place] [facility] [address] [id number] [place] [address]- 1421 Sep, [facility] [place] [facility] [address] [id number] [place] [address]- 9009 Sep, [facility] [place] [facility] [address] [id number] [place] [address]- 9785 Sep, [facility] [place] [facility] [address] [id number] [place] [address]- 0945 Sep, [facility] [place] [facility] [address] [id number] [place] [address]- 5048 Sep, [facility] [place] [facility] [address] [id number] [id number] 8375 Sep, [facility] [place] [facility] [address] [facility] [id number] [place] [address]- 6958 Aug, [facility] [place] [facility] [address] [id number] [place] [address]- 2905 Aug, [facility] [place] [facility] [address] [id number] [place] [address]- 6834 Aug, [facility] [place] [facility] [address] [facility] [id number] [place] [address]- 0842 Aug, [facility] [place] [facility] [address] [facility] [id number] [place] [address]- 3224 Jul, [facility] [place] [facility] [address] [facility] [id number] [place] [address]- 3540 Jul, [facility] [place] [facility] [address] [facility] [id number] [place] [address]- 9199 Jul, [facility] [place] [facility] [address] [facility] [id number] [place] [address]- 2375 Jul, [facility] [place] [facility] [address] [facility] [id number] [place] [address]- 8670 14 Jul, 2013 [facility] [place] [facility] [address] [facility] [id number] [place] [address]- 4780 14 Jul, 2013 [facility] [place] [facility] [address] [facility] [id number] [place] [address]- 9596 07 Jul, 2013 [facility] [place] [facility] [address] [facility] [id number] [place] [address]- 9828 07 Jul, 2013 [facility] [place] [facility] [address] [facility] [id number] [place] [address]- 0889 Jul, [facility] [place] [facility] [address] [id number] [place] [address]- 3958 Jul, [facility] [place] [facility] [address] [id number] [place] [address]- 0078 Jul, [facility] [place] [facility] [address] [id number] [place] [address]- 4308 Jul, [facility] [place] [facility] [address] [id number] [place] [address]- 6919 Jun, [facility] [place] [facility] [address] [id number] [place] [address]- 0323 Jun, [facility] [place] [facility] [address] [id number] [place] [address]- 8931 Jun, [facility] [place] [facility] [address] [id number] [place] [address]- 6796 Jun, [facility] [place] [facility] [address] [id number] [place] [address]- 3251 Jun, [facility] [place] [facility] [address] [id number] [place] [address]- 9465 Jun, [facility] [place] [facility] [address] [id number] [place] [address]- 2822 May, [facility] [place] [facility] [address] [id number] [place] [address]- 4024 May, [facility] [place] [facility] [address] [id number], [place] [address]- 0670 Apr, [facility] [place] [facility] [address] [id number] [place] [address]- 8965 Apr, [facility] [place] [facility] [address] [id number] [place] [address]- 7050 Apr, [facility] [place] [facility] [address] [id number] [place] [address]- 7263 Apr, [facility] [place] [facility] [address] [id number] [place] [address]- 4496 18 Apr, 2013 [facility] [address] [id number] [place] [address]- 9755 18 Apr, 2013 [facility] [place] [facility] [address] [id number] [place] [address]- 8976 17 Apr, 2013 [facility] [address] [id number] [place] [address]- 4313 15 Apr, 2013 [facility] [place] [facility] [address] [id number] [place] [address]- 3569 15 Apr, 2013 [facility] [address] [id number] [place] [address]- 3373 15 Apr, 2013 [facility] [place] [facility] [address] [id number] [place] [address]- 4222 15 Apr, 2013 [facility] [address] [id number] [place] [address]- 5864 Apr, [facility] [address] [id number] [place] [address]- 5728 13 Apr, 2013 [facility] [place] [facility] [address] [id number] [place] [address]- 5801 31 Mar, 2013 [facility] [address] [id number] [place] [address]- 2475 31 Mar, 2013 [facility] [place] [facility] [address] [id number] [place] [address]- 6470 25 Mar, 2013 [facility] [place] [facility] [address] [id number] [place] [address]- 8126 25 Mar, 2013 [facility] [place] [facility] [address] [id number] [place] [address]- 2912 17 Mar, 2013 [facility] [place] [facility] [address] [id number] [place] [address]- 5411 17 Mar, 2013 [facility] [place] [facility] [address] [id number] [place] [address]- 9825 14 Mar, 2013 [facility] [place] [facility] [address] [id number] [place] [address] 14 Mar, 2013 [facility] [place] [facility] [address] [id number] [place] [address] 11 Mar, 2013 [facility] [place] [facility] [address] [id number] [place] [address] 11 Mar, 2013 [facility] [place] [facility] [address] [id number] [place] [address]27 02 Mar, 2013 [facility] [place] [facility] [address] [id number] [place] [address] 30 Feb, 2013 [facility] [place] [facility] [address] [id number] [place] [address] 28 Feb, 2013 [facility] [place] [facility] [address] [id number] [place] [address] 27 Feb, 2013 [facility] [place] [facility] [address] [id number] [place] [address] 27 Feb, 2013 [facility] [place] [facility] [address] [id number] [place] [address] 20 Feb, 2013 [facility] [place] [facility] [address] [id number] [place] [address] 49[address] 10 Feb, 2013 [facility] [place] [facility] [address] [id number] [place] [address] Jan, [facility] [place] [facility] [address] [id number], [place] [address] Jan, [facility] [place] [facility] [address] [id number] [place] [address] Dec, [facility] [place] [facility] [address] [id number] [place] [address] Dec, [facility] [place] [facility] [address] [id number] [place] [address] 15 Dec, 2012 [facility] [place] [facility] [address] [id number] [place] [address] Dec, [facility] [address] [id number] [place] [address] Nov, [facility] [place] [facility] [address] [id number] [place] [address] Nov, [facility] [address] [id number] [place] [address] Nov, [facility] [place] [facility] [address] [id number] [place] [address] 8549 October, [facility] [address] [id number] [place] [address] October, [facility] [address] [id number] [place] [address]- [address]897 October, [facility] [address] [id number] [place] [address] October, [facility] [address] [id number] [place] [address] 8983 October, [facility] [address] [id number] [place] [address] Sep, [facility] [place] [facility] [address] [id number] [place] [address] Sep, [facility] [address] [id number] [place] [address] 408[address] Aug, [facility] [place] [facility] [address] [id number] [place] [address]27 Aug, [facility] [place] [facility] [address] [id number] [place] [address] Aug, [facility] [place] [facility] [address] [id number] [place] [address] Aug, [facility] [place] [facility] [address] [id number] [place] [address] 270[address] Aug, [facility] [place] [facility] [address] [id number] [place] [address] 9261 18 Jul, 2012 [facility] [address] [id number] [place] [address] 11 Jul, 2012 [facility] [place] [facility] [address] [id number] [place] [address] 6566 06 Jul, 2012 [facility] [address] [id number] [place] [address]- [address] 04 Jul, 2012 [facility] [place] [facility] [address] [id number] [place] [address] Jun, [facility] [address] [id number] [place] [address] Jun, [facility] [address] [id number] [place] [address] Jun, [facility] [address] [id number] [place] [address] Jun, [facility] [address] [id number] [place] [address]36 Jun, [facility] [address] [id number] [place] [address] 56[address] Jun, [facility] [address] [id number] [place] [address] 2006 Jun, [facility] [address] [id number] [place] [address] Jun, [facility] [place] [facility] [address] [id number] [place] [address] 59[address] Jun, [facility] [place] [facility] [address] [id number] [place] [address] Jun, [facility] [place] [facility] [address] [id number] [place] [address]16 Jun, [facility] [place] [facility] [address] [id number] [place] [address] 2981 May, [facility] [place] [facility] [address] [id number] [place] [address]- 2941 May, [facility] [place] [facility] [address] [id number] [place] [address] 6546 Apr, [facility] [place] [facility] [address] [facility] [id number] [place] [address]- 9977 Apr, [facility] [place] [facility] [address] [id number] [place] [address]- 2586 Mar, [facility] [place] [facility] [address] [id number] [place] [address]- 2561 Mar, [facility] [place] [facility] [address] [id number] [place] [address]- [address] Mar, [facility] [place] [facility] [address] [id number] [place] [address]- 8723 Mar, [facility] [place] [facility] [address] [id number] [place] [address]- [address]346 Mar, [facility] [place] [facility] [address] [id number] [place] [address]- 4977 Mar, [facility] [place] [facility] [address] [id number] [place] [address]- 6693 Mar, [facility] [place] [facility] [address] [id number], [place] [address] Mar, [facility] [place] [facility] [address] [id number], [place] [address] 2544 Mar, [facility] [place] [facility] [address] [id number] [place] [address] 2546 Feb, [facility] [place] [facility] [address] [facility] [id number], [place] [address] Jan, [facility] [place] [facility] [address] [facility] [id number] [place] [address]- 2546 Jan, [facility] [place] [facility] [address] [id number] [place] [address]- 6807 Dec, [facility] [address] [id number] [place] [address]- 0770 Dec, [facility] [place] [facility] [address] [id number] [place] [address]- 9646 Dec, [facility] [address] [id number] [place] [address]- 8554 Nov, [facility] [place] [facility] [address] [id number] [place] [address]- [address] Nov, [facility] [address] [id number] [place] [address]- 8145 Nov, [facility] [place] [facility] [address] [id number] [place] [address]- 6074 Nov, [facility] [address] [id number] [place] [address] October, [facility] [address] [id number] [place] [address] October, [facility] [place] [facility] [address] [id number] [place] [address] Sep, [facility] [place] [facility] [address] [id number] [place] [address] Sep, [facility] [place] [facility] [address] [id number] [place] [address] Aug, [facility] [place] [facility] [address] [id number] [place] [address] Jul, [facility] [place] [facility] [address] [id number] [place] [address] Jul, [facility] [place] [facility] [address] [id number] [place] [address] Jul, [facility] [place] [facility] [address] [id number] [place] [address] Jul, [facility] [place] [facility] [address] [id number] [place] [address] Jun, [facility] [place] [facility] [address] [id number] [place] [address] 15 May, 2011 [facility] [place] [facility] [address] [id number] [place] [address] 15 May, 2011 [facility] [place] [facility] [address] [id number] [place] [address] 15 May, 2011 [facility] [place] [facility] [address] [id number] [place] [address] May, [facility] [place] [facility] [address] [id number] [place] [address] 08 May, 2011 [facility] [place] [facility] [address] [id number] [place] [address] 14 Apr, 2011 [facility] [place] [facility] [address] [id number], [place] [address] 14 Apr, 2011 [facility] [place] [facility] [address] [id number] [place] [address] 14 Apr, 2011 [facility] [place] [facility] [address] [id number], [place] [address] 07 Apr, 2011 [facility] [place] [facility] [address] [id number], [place] [address] Apr, [facility] [place] [facility] [address] [id number], [place] [address] Mar, [facility] [place] [facility] [address] [id number] [place] [address] Mar, [facility] [place] [facility] [address] [id number], [place] [address] 14 Mar, 2011 [facility] [place] [facility] [address] [id number] [place] [address] 14 Mar, 2011 [facility] [place] [facility] [id number] [address] 13 Mar, 2011 [facility] [id number], [place] [address] 11 Mar, 2011 [facility] [id number] [address] 11 Mar, 2011 [facility] [id number], [place] [address] Mar, [facility] [id number], [place] [address] 14 Feb, 2011 [facility] [id number] [place] [address] May, [facility] [id number] [place] [address] May, [facility] [id number] [place] [address] May, [facility] [id number], [place] [address] Apr, [facility] [id number], [place] [address] Mar, IMMUNIZATIONS No Known Immunizations SOCIAL HISTORY Never Assessed REASON FOR VISIT xanax refill PLAN OF CARE VITAL SIGNS MEDICATIONS Medication Instructions Dosage Frequency Start Date End Date Duration Status Alprazolam 2 MG Orally part of taper 1 tablet mornign and 0.5 tablet night 30 days Active Alprazolam 0.25 MG Orally daily 2 tablet 24h Nov, 30 days Active RESULTS [...]
--- OUTSIDE RECORDS SUMMARY | 2018-08-19 09:22 | XMS REPORT ---
Author Author CURTIS GLENN Organization [facility] Address [address] [place] [address] Care Team Providers Care Granulator Tender Name Role Phone HARSHSALVADOR GLENN Unavailable PROBLEMS Type Condition ICD9-CM Code AIQ15-RK Code Onset Dates Condition Status SNOMED Code Problem Mixed hyperlipidemia E78.2 Active 835021036 Problem Vitamin D deficiency E55.9 Active 36340919 Problem Essential hypertension I10 Active 15680470 Problem Mild intermittent asthma without complication J45.20 Active 767036540 Problem Generalized anxiety disorder F41.1 Active 84050388 Problem Gastroesophageal reflux disease, esophagitis presence not specified K21.9 Active 774627789 Problem Bipolar disorder, current episode mixed, moderate F31.62 Active 602765078 Problem Bipolar disorder F31.9 Active 87570022 Problem Panic disorder F41.0 Active 595874478 Problem Low back pain with sciatica, sciatica laterality unspecified, unspecified back pain laterality, unspecified chronicity M54.40 Active 202967486 Problem Acute right-sided low back pain with right-sided sciatica M54.41 Active 63897786 Problem Excessive thirst R63.1 Active 96661755 Problem Concussion without loss of consciousness, initial encounter S06.0X0A Active 32882340 Problem Primary insomnia F51.01 Active 072037031 Problem Anxiety F41.9 Active 32308358 Problem Hematuria R31.9 Active 59376894 Problem Hot flashes R23.2 Active 628376042 Problem Multiple fractures T07.XXXA Active 032582151 Problem Nausea R11.0 Active 096301484 Problem Hospital discharge follow-up Z09 Active 870052044 Problem Breast tenderness N64.4 Active 18408366 Problem Depression F32.9 Active 76409114 Problem Hidradenitis suppurativa L73.2 Active 69884521 Problem History of IBS Z87.19 Active 05428054364861 Problem Localized edema R60.0 Active 084991505 Problem Posttraumatic stress disorder F43.10 Active 22822027 Problem Genital herpes simplex, unspecified site A60.00 Active 57084078 Problem Tobacco use Z72.0 Active 729822180 ALLERGIES Substance Reaction Event Type Date Status Paxil suicidal Drug Allergy Nov, Active Morphine Sulfate hives Drug Allergy Nov, Active Hydrocodone-Acetaminophen rash Drug Allergy Nov, Active Bactrim DS break out in blisters Drug Allergy Nov, Active Amoxicillin hives Drug Allergy Nov, Active Latex rash Non Drug Allergy Nov, Active Abilify 2 Mg Tablet anger Non Drug Allergy Nov, Active ENCOUNTERS Encounter Location Date Diagnosis [facility] [id number] [place] [address] 70713- 7924 Feb, [facility] [id number] [place] [address] 23638- 6432 Jan, [facility] [address] 30482- 9325 Jan, Genital herpes simplex, unspecified site A60.00 [facility] [id number] [place] [address] 85622- 7643 Jan, Panic disorder F41.0 [facility] [id number] [place] [address] 06068- 1152 Dec, Diaphoresis R61 and Excessive thirst R63.1 [facility] [id number] [place] [address] 68770- 0614 Dec, Panic disorder F41.0 ; Bipolar disorder, current episode mixed, moderate F31.62 and Generalized anxiety disorder F41.1 [facility] [id number] [place] [address] 42944- 7527 Dec, Panic disorder F41.0 [facility] [id number] [place] [address] 39952- 8962 Nov, Panic disorder F41.0 [facility] [id number] [place] [address] 19101- 0153 Nov, Panic disorder F41.0 ; Generalized anxiety disorder F41.1 and Bipolar disorder, current episode mixed, moderate F31.62 [facility] [id number] [place] [address] 99822- 0126 Nov, Panic disorder F41.0 [facility] [id number] [place] [address] 25183- 2868 Nov, Panic disorder F41.0 [facility] [address] 94917- 4207 October, Panic disorder F41.0 [facility] [id number] [place] [address] 65544- 5601 October, Panic disorder F41.0 ; Generalized anxiety disorder F41.1 and Bipolar disorder, current episode mixed, moderate F31.62 [facility] [address] 42580- 2664 October, Panic disorder F41.0 [facility] [address] 62338- 6590 Sep, Hospital discharge follow-up Z09 ; Concussion without loss of consciousness, initial encounter S06.0X0A and Nausea R11.0 [facility] [id number] [place] [address] 28087- 9480 Sep, [facility] [id number] [place] [address] 92739- 9552 Sep, Panic disorder F41.0 [facility] [id number] [place] [address] 90902- 3732 Sep, [facility] [id number] [place] [address] 95857- 3292 Sep, Well woman exam with routine gynecological exam Z01.419 ; Multiple fractures T07.XXXA ; Hot flashes R23.2 ; Essential hypertension I10 ; Mixed hyperlipidemia E78.2 ; Genital herpes simplex, unspecified site A60.00 ; Alkaline phosphatase elevation R74.8 ; Dysuria R30.0 ; Vitamin D deficiency E55.9 ; Tobacco use Z72.0 ; High risk sexual behavior Z72.51 and Encounter for immunization Z23 [facility] [id number] [place] [address] 13059- 4855 Aug, Panic disorder F41.0 ; Generalized anxiety disorder F41.1 and Bipolar disorder, current episode mixed, moderate F31.62 [facility] [id number] [place] [address] 71325- 1215 Aug, [facility] [address] 455905- 4260 Jul, Panic disorder F41.0 ; Generalized anxiety disorder F41.1 and Bipolar disorder, current episode mixed, moderate F31.62 [facility] [id number] [place] [address] 37957- 8034 Jul, [facility] [id number] [place] [address] 35858- 3222 Jul, [facility] [address] 42811- 3923 Jul, Effusion, right knee M25.461 ; Acute pain of right knee M25.561 and Acute pain of left knee M25.562 [facility] [id number] [place] [address] 18121- 9595 Jun, Bipolar disorder, current episode mixed, moderate F31.62 ; Generalized anxiety disorder F41.1 and Panic disorder F41.0 [facility] [id number] [place] [address] 87158- 3838 May, Bipolar disorder, current episode mixed, moderate F31.62 ; Generalized anxiety disorder F41.1 and Panic disorder F41.0 [facility] [id number] [place] [address] 93881- 2998 May, Bipolar disorder, current episode mixed, moderate F31.62 [facility] [id number] [place] [address] 41207- 5203 May, Bipolar disorder, current episode mixed, moderate F31.62 [facility] [address] [place] [address] 14528- 5236 07 Apr, 2017 Bipolar disorder, current episode mixed, moderate F31.62 ; Generalized anxiety disorder F41.1 and Panic disorder F41.0 [facility] [id number] [place] [address] 08424- 8193 17 Mar, 2017 [facility] [id number] [place] [address] 79475- 8042 Mar, Bipolar disorder, current episode mixed, moderate F31.62 ; Generalized anxiety disorder F41.1 and Panic disorder F41.0 [facility] [id number] [place] [address] 51418- 5482 27 Feb, 2017 [facility] [id number] [place] [address] 89010- 0710 Feb, Posttraumatic stress disorder F43.10 [facility] [id number] [place] [address] 53377- 5907 20 Feb, 2017 Gastroesophageal reflux disease, esophagitis presence not specified K21.9 [facility] [id number] [place] [address] 89045- 5952 13 Feb, 2017 [facility] [id number] [place] [address] 76982- 8297 06 Feb, 2017 Knee pain, right anterior M25.561 [facility] [id number] [place] [address] 01044- 5544 Feb, HSV (herpes simplex virus) infection B00.9 [facility] [address] [place] [address] 22721- 2701 Feb, [facility] [id number] [place] [address] 57195- 6546 Jan, [facility] [address] [place] [address] 68344- 2204 Jan, Posttraumatic stress disorder F43.10 [facility] [id number] [place] [address] 18109- 8804 Jan, Foot pain, left M79.672 [facility] [id number] [place] [address] 06060- 2345 Jan, [facility] [id number] [place] [address] 34532- 1054 Jan, Lumbar radiculopathy, acute M54.16 ; Muscle spasm of back M62.830 and Right hip pain M25.551 [facility] [id number] [place] [address] 07218- 4960 Jan, Lumbar radiculopathy, acute M54.16 [facility] [id number] [place] [address] 35681- 8200 Jan, [facility] [id number] [place] [address] 90453- 3317 Jan, [facility] [id number] [place] [address] 73386- 9789 Dec, Lumbar radiculopathy, acute M54.16 ; Acute renal insufficiency N28.9 and Muscle spasm of back M62.830 [facility] [id number] [place] [address] 22204- 3803 Dec, [facility] [id number] [place] [address] 45554- 4249 Dec, [facility] [id number] [place] [address] 34742- 4966 Dec, [facility] [id number] [place] [address] 54974 -0329 Dec, Low back pain with sciatica, sciatica laterality unspecified, unspecified back pain laterality, unspecified chronicity M54.40 and Acute right-sided low back pain with right-sided sciatica M54.41 [facility] [id number] [place] [address] 89677- 1183 Dec, Posttraumatic stress disorder F43.10 [facility] [address], [place] [address]- 4374 Dec, [facility] [id number] [place] [address] 69248- 1815 Dec, Pain in right thigh M79.651 and Acute right-sided low back pain without sciatica M54.5 [facility] [id number] [place] [address] 56323- 9062 Dec, Posttraumatic stress disorder F43.10 and Major depressive disorder, recurrent episode with anxious distress F33.9 [facility] [id number] [place] [address] 05483 -9891 Dec, [facility] [address] [address]- 0037 Nov, [facility] [id number] [place] [address] 66849- 8688 October, [facility] [address] [address]- 4091 October, [facility] [id number] [place] [address] 72419- 2942 October, Knee pain, right anterior M25.561 [facility] [address], [place] [address]- 9292 October, Knee pain, right anterior M25.561 [facility] [address] [address]- 1084 October, [facility] [address] [place] [address]- 8269 October, [facility] [address] [address]- 8659 October, [facility] [address] [place] [address] -7168 Sep, [facility] [address] [address]- 1400 18 Sep, 2016 [facility] [id number] [place] [address] 00153- 6469 17 Sep, 2016 Essential hypertension I10 [facility] [id number] [place] [address] 71679- 4721 11 Sep, 2016 Essential hypertension I10 [facility] [id number] [place] [address] 31044- 3916 Sep, [facility] [id number] [place] [address] 38943- 2340 10 Sep, 2016 Posttraumatic stress disorder F43.10 and Major depressive disorder, recurrent episode with anxious distress F33.9 [facility] [id number] [place] [address] 29557- 7771 07 Sep, 2016 Multiple fractures T14.8 ; Alkaline phosphatase elevation R74.8 and Vitamin D deficiency E55.9 [facility] [address] [place] [address] 72230- 2504 Sep, [facility] [address] [place] [address] 40398- 2483 Sep, Elevated serum creatinine R79.89 ; Fracture of foot, left, closed, initial encounter S92.902A and Alkaline phosphatase elevation R74.8 [facility] [address] [place] [address] 95388- 7800 Sep, Elevated serum creatinine R79.89 and Essential hypertension I10 [facility] [address] [place] [address] 01767- 4729 Sep, [facility] [id number] [place] [address] 24224- 9645 Aug, Gastroesophageal reflux disease, esophagitis presence not specified K21.9 [facility] [address], [place] [address]- 1669 Aug, Essential hypertension I10 ; Fracture of foot, left, closed , initial encounter S92.902A and Alkaline phosphatase elevation R74.8 [facility] [id number] [place] [address] 78827- 7231 17 Jul, 2016 Genital herpes simplex, unspecified site A60.00 [facility] [id number] [place] [address] 40491 2546 06 Jul, 2016 Essential hypertension I10 [facility] [id number] [place] [address] 08890- 6764 Jun, Cough R05 and Wheezing R06.2 [facility] [id number] [place] [address] 88760- 3215 Jun, Essential hypertension I10 [facility] [id number] [place] [address] 51633- 8354 May, Essential hypertension I10 [facility] [id number] [place] [address] 31783- 5911 May, Posttraumatic stress disorder F43.10 and Major depressive disorder, recurrent episode with anxious distress F33.9 [facility] [id number] [place] [address] 09077- 4447 Apr, [facility] [id number] [place] [address] 49751- 2950 Apr, [facility] [id number] [place] [address] 84128- 0937 Apr, [facility] [id number] [place] [address] 95958- 5465 Mar, [facility] [id number] [place] [address] 78872- 1988 Feb, [facility] [id number] [place] [address] 29150- 3963 Jan, [facility] [id number] [place] [address] 56571- 2027 Jan, Essential hypertension I10 ; Mixed hyperlipidemia E78.2 ; Gastroesophageal reflux disease, esophagitis presence not specified K21.9 ; Mild intermittent asthma without complication J45.20 ; Hidradenitis suppurativa L73.2 ; Migraine without status migrainosus, not intractable, unspecified migraine type G43.909 ; Genital herpes simplex, unspecified site A60.00 and Closed traumatic minimally displaced fracture of metatarsal bone of left foot S92.302A [facility] [id number] [place] [address] 90699 -5911 Jan, Localized edema R60.0 [facility] [address] 96768- 7266 Dec, [facility] [address] 38678- 1379 Dec, [facility] [address] 50641- 1843 Dec, [facility] [address] 39203 -9835 Dec, Cough R05 ; Tobacco dependence F17.200 and Costochondritis , acute M94.0 [facility] [address] 40215- 4136 Dec, Major depression, recurrent F33.9 ; Bipolar disorder, unspecified F31.9 and Posttraumatic stress disorder F43.10 [facility] [id number] [place] [address] 83401- 2761 Nov, [facility] [address] 05255- 5198 Nov, [facility] [id number] [place] [address] 60688- 8243 October, [facility] [address] 11869 -3930 October, Acute upper respiratory infection, unspecified J06.9 [facility] [id number] [place] [address] 82113- 1706 October, [facility] [address], [place] [address]- 5211 Sep, Bipolar affective disorder, remission status unspecified F31.9 and Post-traumatic stress disorder F43.10 [facility] [id number] [place] [address] 07206- 1364 Sep, Bipolar disorder, unspecified F31.9 ; Posttraumatic stress disorder F43.10 and Major depression, recurrent F33.9 [facility] [id number] [place] [address] 45705- 7275 16 Aug, 2015 Edema R60.9 ; Fatigue R53.83 and Polydipsia R63.1 [facility] [id number] [place] [address] 41759- 5252 Aug, [facility] [id number] [place] [address] 01312- 9022 Aug, [facility] [id number] [place] [address] 97621- 9689 Jul, [facility] [id number] [place] [address] 15524- 0139 Jul, [facility] [id number] [place] [address] 62695- 0022 Jun, [facility] [id number] [place] [address] 68782- 4055 Jun, [facility] [id number] [place] [address] 74931- 3660 Jun, [facility] [address] [place] [address] 20699- 5287 Jun, [facility] [id number] [place] [address] 99659- 0056 May, Mixed hyperlipidemia E78.2 [facility] [address] [place] [address] 08749- 7996 May, Well woman exam Z01.419 ; History of herpes simplex infection Z86.19 ; Papanicolaou smear Z12.4 ; History of depression Z86.59 ; History of anxiety Z86.59 ; Lipoma of other specified sites D17.79 ; Hidradenitis suppurativa L73.2 ; Routine screening for STI (sexually transmitted infection) Z11.3 and Tobacco use Z72.0 [facility] [address] 10022- 3015 May, Hematuria R31.9 ; Essential hypertension I10 ; Pure hypercholesterolemia E78.0 and Hidradenitis L73.2 [facility] [address] 07612- 5470 May, Upper respiratory symptom R09.89 and Allergic rhinitis J30.[address] 16301- 3161 May, [address] 36539- 8677 May, [facility] [address] 39188- 9923 May, Bipolar disorder, unspecified F31.9 ; Posttraumatic stress disorder F43.10 and Major depression, recurrent F33.9 [facility] [id number] [place] [address] 51191- 8929 May, [facility] [id number] [place] [address] 19455- 4545 May, [facility] [id number] [place] [address] 88449- 1670 Apr, [facility] [address] 07036- 6485 Apr, [facility] [address] 10469- 7569 Mar, [facility] [id number] [place] [address] 52147- 5692 Mar, [facility] [address] 3812 Mar, [facility] [address] [address] 4976 18 Feb, 2015 Major depressive disorder, recurrent episode, moderate 296.32 and Post traumatic stress disorder (PTSD) 309.81 [facility] [address] [address] 3446 Feb, [facility] [address] 9579 08 Feb, 2015 [facility] [id number] [place] [address] 904968- 8360 Jan, Cough 786.2 [facility] [id number] [place] [address] 25755- 7580 Jan, Depression, major, recurrent, moderate 296.32 and Post traumatic stress disorder (PTSD) 309.81 [facility] [address], [place] [address]- 1496 Jan, [facility] [address], [place] [address]- 1330 Dec, [facility] [address], [place] [address]- 3166 Dec, Generalized anxiety disorder 300.02 and Depression, major, recurrent, moderate 296.32 [facility] [address], [place] [address]- 2574 Dec, [facility] [id number] [place] [address]- 8934 Dec, High risk medication use V58.69 [facility] [address] 0265 Dec, High risk medication use V58.69 [facility] [id number], [place] [address]- 8186 Dec, [facility] [address] [place] [address] 2546 Nov, Generalized anxiety disorder 300.02 and Major depressive disorder, recurrent episode, moderate 296.32 [facility] [address] [id number] Nov, Dental examination V72.2 [facility] [address] [id number] Nov, Dental examination V72.2 [facility] [id number] [address] 2546 Nov, [facility] [address] [id number] Nov, Dental examination V72.2 [facility] [id number] [place] [id number] Nov, Dental examination V72.2 [facility] [address] [address] October, Major depressive disorder, recurrent episode, moderate 296.32 and Generalized anxiety disorder 300.02 [facility] [address] [address] October, [facility] [address] [address] October, [facility] [id number] [address] October, [facility] [id number] [address] Sep, [facility] [address], [place] [address] Sep, [facility] [id number], [place] [address] Aug, [facility] [id number], [place] [address] Aug, [facility] [id number] [place] [address] 13 Aug, 2014 [facility] [place] [facility] [address] [id number], [place] [address] 13 Aug, 2014 [facility] [place] [facility] [address] [id number] [place] [address] 10 Aug, 2014 [facility] [place] [facility] [address] [id number] [place] [address] 1634 Aug, 2014 [facility] [place] [facility] [address] [id number] [place] [address] 2536 Aug, [facility] [place] [facility] [address] [id number] [place] [address] 9027 16 Jul, 2014 [facility] [place] [facility] [address] [facility] [id number] [place] [address] 7478 16 Jul, 2014 [facility] [place] [facility] [address] [facility] [id number] [place] [address] 5911 Jul, 2014 [facility] [place] [facility] [address] [id number] [place] [address] 7456 Jul, 2014 [facility] [place] [facility] [address] [facility] [id number] [place] [address] 5007 Jul, 2014 [facility] [place] [facility] [address] [facility] [id number] [place] [address]- 5392 Jul, 2014 [facility] [place] [facility] [address] [facility] [id number] [place] [address]- 3892 Jul, 2014 [facility] [place] [facility] [address] [id number] [place] [address]- 6252 Jul, 2014 [facility] [place] [facility] [address] [id number] [place] [address]- 4578 Jul, 2014 [facility] [place] [facility] [address] [facility] [id number] [place] [address] 6218 Jun, [facility] [place] [facility] [address] [facility] [id number] [place] [address]- 7346 Jun, [facility] [place] [facility] [address] [id number] [place] [address]- 5516 Jun, [facility] [place] [facility] [address] [id number] [place] [address]- 8969 Jun, [facility] [place] [facility] [address] [id number] [place] [address]- 9725 Jun, [facility] [place] [facility] [address] [id number] [place] [address]- 2931 Jun, [facility] [place] [facility] [address] [id number] [place] [address]- 8969 Jun, [facility] [place] [facility] [address] [id number] [place] [address]- 3071 Jun, [facility] [place] [facility] [address] [id number] [place] [address]- 2404 Jun, [facility] [place] [facility] [address] [id number] [place] [address]- 7950 Jun, [facility] [place] [facility] [address] [id number] [place] [address]- 4934 Jun, [facility] [place] [facility] [address] [id number] [place] [address]- 0568 Jun, [facility] [place] [facility] [address] [id number] [place] [address]- 6173 Jun, [facility] [place] [facility] [address] [id number], [place] [address]- 2410 Jun, [facility] [place] [facility] [address] [id number] [place] [address]- 7207 Jun, [facility] [place] [facility] [address] [id number] [place] [address]- 5567 Jun, [facility] [place] [facility] [address] [id number] [place] [address]- 4634 Jun, [facility] [place] [facility] [address] [id number] [place] [address]- 6713 14 Jun, 2014 [facility] [address] [id number] [place] [address]- 0102 Jun, [facility] [address] [id number] [place] [address]- 9708 Jun, [facility] [address] [id number] [place] [address]- 7331 Jun, [facility] [address] [id number] [place] [address]- 3859 Jun, [facility] [address] [id number] [place] [address]- 3792 Jun, [facility] [address] [id number] [place] [address]- 3968 Jun, [facility] [address] [id number] [place] [address]- 0319 Jun, [facility] [address] [id number] [place] [address]- 4285 May, [facility] [address] [id number] [place] [address]- 9210 May, [facility] [address] [id number] [place] [address]- 5431 May, [facility] [place] [facility] [address] [id number] [place] [address]- 0360 May, [facility] [address] [id number] [place] [address]- 6864 May, [facility] [place] [facility] [address] [id number] [place] [address]- 2580 May, [facility] [place] [facility] [address] [id number] [place] [address]- 1282 May, [facility] [place] [facility] [address] [id number] [place] [address]- 8030 May, [facility] [place] [facility] [address] [id number] [place] [address]- 8896 May, [facility] [place] [facility] [address] [id number] [place] [address]- 7958 May, [facility] [place] [facility] [address] [id number] [place] [address]- 1043 May, [facility] [place] [facility] [address] [id number] [place] [address]- 2472 May, [facility] [place] [facility] [address] [id number] [place] [address]- 4859 May, [facility] [place] [facility] [address] [id number] [place] [address]- 0939 May, [facility] [place] [facility] [address] [id number] [place] [address]- 8807 May, [facility] [place] [facility] [address] [id number] [place] [address]- 9436 May, [facility] [place] [facility] [address] [id number] [place] [address]- 2677 May, [facility] [place] [facility] [address] [id number] [place] [address]- 4394 May, [facility] [place] [facility] [address] [id number] [place] [address]- 4537 Apr, [facility] [place] [facility] [address] [id number], [place] [address]- 0981 Apr, [facility] [place] [facility] [address] [id number] [place] [address]- 1146 Apr, [facility] [place] [facility] [address] [id number] [place] [address]- 5418 Apr, [facility] [place] [facility] [address] [id number], [place] [address]- 5275 Apr, [facility] [place] [facility] [address] [id number], [place] [address]- 9581 Apr, [facility] [place] [facility] [address] [id number] [place] [address]- 7447 Apr, [facility] [place] [facility] [address] [id number] [place] [address]- 5831 Apr, [facility] [place] [facility] [address] [id number] [place] [address]- 4729 Mar, [facility] [place] [facility] [address] [id number] [place] [address]- 8822 Mar, [facility] [place] [facility] [address] [id number] [place] [address]- 6840 Feb, [facility] [place] [facility] [address] [id number] [place] [address]- 2166 Feb, [facility] [place] [facility] [address] [id number] [place] [address]- 2829 Feb, [facility] [place] [facility] [address] [id number] [place] [address]- 4115 Feb, [facility] [place] [facility] [address] [id number] [place] [address]- 9596 Feb, [facility] [place] [facility] [address] [id number] [place] [address]- 7807 Feb, [facility] [place] [facility] [address] [id number] [place] [address]- 7602 Feb, [facility] [place] [facility] [address] [id number] [place] [address]- 2542 Feb, [facility] [place] [facility] [address] [id number] [place] [address]- 1476 08 Feb, 2014 [facility] [place] [facility] [address] [id number] [place] [address]- 8393 08 Feb, 2014 [facility] [place] [facility] [address] [id number] [place] [address]- 0070 Jan, [facility] [place] [facility] [address] [id number] [place] [address]- 1368 Jan, [facility] [place] [facility] [address] [id number] [place] [address]- 0679 Jan, [facility] [place] [facility] [address] [id number] [place] [address]- 2033 Jan, [facility] [place] [facility] [address] [id number] [place] [address]- 1111 Jan, [facility] [place] [facility] [address] [id number] [place] [address]- 3737 Jan, [facility] [place] [facility] [address] [id number] [place] [address]- 7413 Jan, [facility] [place] [facility] [address] [id number] [place] [address]- 6664 Jan, [facility] [place] [facility] [address] [id number] [place] [address]- 6452 Jan, [facility] [place] [facility] [address] [id number] [place] [address]- 8209 Jan, [facility] [place] [facility] [address] [id number] [place] [address]- 8927 Jan, [facility] [place] [facility] [address] [id number] [place] [address]- 1822 Jan, [facility] [place] [facility] [address] [id number] [place] [address]- 2963 Jan, [facility] [place] [facility] [address] [id number] [place] [address]- 4884 Dec, [facility] [place] [facility] [address] [id number] [place] [address]- 3975 Dec, [facility] [place] [facility] [address] [id number] [place] [address]- 4138 Dec, [facility] [place] [facility] [address] [id number] [place] [address]- 5803 Dec, [facility] [place] [facility] [address] [id number] [place] [address]- 9735 Dec, [facility] [place] [facility] [address] [id number] [place] [address]- 2551 Dec, [facility] [place] [facility] [address] [id number] [place] [address]- 8269 Dec, [facility] [place] [facility] [address] [id number] [place] [address]- 2834 Dec, [facility] [place] [facility] [address] [id number] [place] [address]- 9222 Dec, [facility] [place] [facility] [address] [id number] [place] [address]- 0924 Dec, [facility] [place] [facility] [address] [id number] [place] [address]- 1625 Dec, [facility] [place] [facility] [address] [id number] [place] [address]- 3399 Dec, [facility] [place] [facility] [address] [id number] [place] [address]- 2130 Dec, [facility] [place] [facility] [address] [id number] [place] [address]- 2857 Dec, [facility] [place] [facility] [address] [id number] [place] [address]- 5097 Nov, [facility] [place] [facility] [address] [id number] [place] [address]- 5117 Nov, [facility] [place] [facility] [address] [id number] [place] [address]- 8213 Nov, [facility] [place] [facility] [address] [id number] [place] [address]- 2269 Nov, [facility] [place] [facility] [address] [id number] [place] [address]- 2065 Nov, [facility] [place] [facility] [address] [id number] [place] [address]- 1370 Nov, [facility] [place] [facility] [address] [id number] [place] [address]- 2902 Nov, [facility] [place] [facility] [address] [id number] [place] [address]278 Nov, [facility] [place] [facility] [address] [id number] [place] [address]- 7719 October, [facility] [place] [facility] [address] [id number] [place] [address]- 1790 October, [facility] [place] [facility] [address] [id number] [place] October, [facility] [place] [facility] [address] [id number] [place] [address]- 8706 October, [facility] [place] [facility] [address] [id number] [place] [address]- 8427 October, [facility] [place] [facility] [address] [id number] [place] [address]- 5793 October, [facility] [place] [facility] [address] [id number] [place] [address]- 7634 October, [facility] [place] [facility] [address] [id number] [place] [address]- 3911 October, [facility] [place] [facility] [address] [id number] [place] [address]- 3899 October, [facility] [place] [facility] [address] [id number] [place] [address]- 8145 October, [facility] [place] [facility] [address] [id number] [place] [address]- 2706 October, [facility] [place] [facility] [address] [id number] [place] [address]- 9781 October, [facility] [place] [facility] [address] [id number] [place] [address]- 6144 October, [facility] [place] [facility] [address] [id number] [place] [address]- 5369 October, [facility] [place] [facility] [address] [id number] [place] [address]- 0577 October, [facility] [place] [facility] [address] [id number] [place] [address]- 4338 October, [facility] [place] [facility] [address] [id number] [place] [address]- 4512 Sep, [facility] [place] [facility] [address] [id number] [place] [address]- 8995 Sep, [facility] [place] [facility] [address] [id number] [place] [address]- 1838 Sep, [facility] [place] [facility] [address] [id number] [place] [address]- 3979 Sep, [facility] [place] [facility] [address] [id number] [place] [address]- 5949 Sep, [facility] [place] [facility] [address] [id number] [place] [address]- 3743 Sep, [facility] [place] [facility] [address] [id number] [place] [address]- 6304 Sep, [facility] [place] [facility] [address] [id number] [place] [address]- 4463 Sep, [facility] [place] [facility] [address] [id number] [place] [address]- 7898 Sep, [facility] [place] [facility] [address] [id number] [place] [address]- 4823 Sep, [facility] [place] [facility] [address] [id number] [place] [address]- 7117 Sep, [facility] [place] [facility] [address] [id number] [place] [address]- 7203 Sep, [facility] [place] [facility] [address] [id number] [place] [address]- 5271 Sep, [facility] [place] [facility] [address] [id number] [place] [address]- 7730 Sep, [facility] [place] [facility] [address] [id number] [place] [address]- 8750 Sep, [facility] [place] [facility] [address] [facility] [id number] [place] [address]- 6389 Sep, [facility] [place] [facility] [address] [id number] [place] [address]- 8825 Sep, [facility] [place] [facility] [address] [id number] [place] [address]- 5179 Sep, [facility] [place] [facility] [address] [facility] [id number] [place] [address]- 0999 Sep, [facility] [place] [facility] [address] [facility] [id number] [place] [address]- 1295 Aug, [facility] [place] [facility] [address] [id number] [place] [address]- 0901 Aug, [facility] [place] [facility] [address] [id number] [place] [address]- 7909 Aug, [facility] [place] [facility] [address] [facility] [id number] [place] [address]- 6934 Aug, [facility] [place] [facility] [address] [id number] [place] [address]- 3876 Jul, [facility] [place] [facility] [address] [id number] [place] [address]- 6876 Jul, [facility] [place] [facility] [address] [id number] [place] [address]- 3648 Jul, [facility] [place] [facility] [address] [id number] [place] [address]- 5762 Jul, [facility] [place] [facility] [address] [facility] [id number] [place] [address]- 7947 Jul, [facility] [place] [facility] [address] [id number] [place] [address]- 0001 14 Jul, 2013 [facility] [place] [facility] [address] [id number] [place] [address]- 7275 Jul, [facility] [place] [facility] [address] [id number] [place] [address]- 5764 Jul, [facility] [place] [facility] [address] [id number] [place] [address]- 2010 Jul, [facility] [place] [facility] [address] [id number] [place] [address]- 6249 Jul, [facility] [place] [facility] [address] [id number] [place] [address]- 9137 Jul, [facility] [place] [facility] [address] [id number] [place] [address]- 3956 Jul, [facility] [place] [facility] [address] [id number] [place] [address]- 8280 Jun, [facility] [place] [facility] [address] [id number] [place] [address]- 3397 Jun, [facility] [place] [facility] [address] [id number] [place] [address]- 7929 Jun, [facility] [place] [facility] [address] [id number] [place] [address]- 6767 Jun, [facility] [place] [facility] [address] [id number], [place] [address]- 6302 Jun, [facility] [place] [facility] [address] [id number] [place] [address]- 5960 Jun, [facility] [place] [facility] [address] [id number] [place] [address]- 2124 May, [facility] [place] [facility] [address] [id number], [place] [address]- 2540 May, [facility] [place] [facility] [address] [id number], [place] [address]- 8285 Apr, [facility] [place] [facility] [address] [id number] [place] [address]- 9675 Apr, [facility] [place] [facility] [address] [id number], [place] [address]- 3798 19 Apr, 2013 [facility] [place] [facility] [address] [facility] [id number] [place] [address]- 5751 19 Apr, 2013 [facility] [place] [facility] [address] [id number], [place] [address]- 8435 18 Apr, 2013 [facility] [place] [facility] [address] [id number] [place] [address]- 4110 18 Apr, 2013 [facility] [place] [facility] [address] [id number] [place] [address]- 8952 17 Apr, 2013 [facility] [place] [facility] [address] [facility] [id number], [place] [address]- 7791 15 Apr, 2013 [facility] [place] [facility] [address] [id number], [place] [address]- 1952 15 Apr, 2013 [facility] [place] [facility] [address] [facility] [id number], [place] [address]- 8801 15 Apr, 2013 [facility] [place] [facility] [address] [facility] [id number], [place] [address]- 4193 15 Apr, 2013 [facility] [place] [facility] [address] [id number], [place] [address]- 1166 Apr, [facility] [place] [facility] [address] [id number], [place] [address]- 9859 Apr, [facility] [place] [facility] [address] [id number], [place] [address] 31 Mar, 2013 [facility] [place] [facility] [address] [id number], [place] [address] 31 Mar, 2013 [facility] [place] [facility] [address] [facility] [id number], [place] [address] Mar, [facility] [place] [facility] [address] [id number] [place] [address] 25 Mar, 2012 [facility] [place] [facility] [address] [id number] [place] [address] 62[address] 17 Mar, 2012 [facility] [place] [facility] [address] [id number] [place] [address] 79[address] 17 Mar, 2012 [facility] [place] [facility] [address] [id number] [place] [address] 26[address] 14 Mar, 2012 [facility] [place] [facility] [address] [id number] [place] [address] 14 Mar, 2013 [facility] [place] [facility] [address] [id number] [place] [address] 4069 11 Mar, 2013 [facility] [place] [facility] [address] [id number] [place] [address] 1755 11 Mar, 2013 [facility] [place] [facility] [address] [id number] [place] [address]- 12[address] 02 Mar, 2013 [facility] [place] [facility] [address] [id number] [place] [address] 30 Feb, 2012 [facility] [place] [facility] [address] [id number] [place] [address] 28 Feb, 2012 [facility] [place] [facility] [address] [id number] [place] [address]- 2540 27 Feb, 2012 [facility] [place] [facility] [address] [id number] [place] [address]- 2544 27 Feb, 2012 [facility] [place] [facility] [address] [id number] [place] [address] 2548 20 Feb, 2012 [facility] [place] [facility] [address] [id number] [place] [address] 2546 10 Feb, 2012 [facility] [place] [facility] [address] [id number] [place] [address] 2548 29 Jan, 2013 [facility] [place] [facility] [address] [id number] [place] [address]- 7066 Jan, [facility] [address] [id number] [place] [address]- [address] Dec, [facility] [place] [facility] [address] [id number] [place] [address]- 8034 Dec, [facility] [place] [facility] [address] [id number] [place] [address]- 2963 Dec, [facility] [place] [facility] [address] [id number] [place] [address]- 7985 Dec, [facility] [place] [facility] [address] [id number] [place] [address]- [address]68 Nov, [facility] [place] [facility] [address] [id number] [place] [address]- 3451 Nov, [facility] [place] [facility] [address] [id number] [place] [address]- 54[address] Nov, [facility] [place] [facility] [address] [id number] [place] [address] 9527 October, [facility] [place] [facility] [address] [id number] [place] [address] October, [facility] [place] [facility] [address] [id number] [place] [address] 56[address] October, [facility] [place] [facility] [address] [id number] [place] [address] 2177 October, [facility] [place] [facility] [address] [id number] [place] [address]- 0748 October, [facility] [place] [facility] [address] [id number] [place] [address] 8598 Sep, [facility] [place] [facility] [address] [id number] [place] [address]- 0980 Sep, [facility] [place] [facility] [address] [id number] [place] [address]- 3489 Aug, [facility] [place] [facility] [address] [id number] [place] [address]- 6705 15 Aug, 2012 [facility] [address] [id number] [place] [address]- 9252 12 Aug, 2012 [facility] [place] [facility] [address] [id number] [place] [address]- 6720 08 Aug, 2012 [facility] [address] [id number] [place] [address]- 299[address] Aug, [facility] [place] [facility] [address] [id number] [place] [address]- 7863 18 Jul, 2012 [facility] [place] [facility] [address] [id number] [place] [address]- [address] Jul, [facility] [place] [facility] [address] [id number] [place] [address]- 1188 Jul, [facility] [place] [facility] [address] [id number] [place] [address]- 7[address] Jul, [facility] [place] [facility] [address] [id number] [place] [address]- 1768 Jun, [facility] [place] [facility] [address] [id number] [place] [address]- 3128 Jun, [facility] [address] [id number] [place] [address]- 5780 Jun, [facility] [place] [facility] [address] [id number] [place] [address]- 2431 Jun, [facility] [place] [facility] [address] [id number] [place] [address]- 4323 Jun, [facility] [place] [facility] [address] [id number] [place] [address]- 8382 Jun, [facility] [place] [facility] [address] [id number] [place] [address]- 9158 Jun, [facility] [place] [facility] [address] [id number] [place] [address]- 7101 Jun, [facility] [place] [facility] [address] [id number] [place] [address]- 2427 Jun, [facility] [place] [facility] [address] [id number] [place] [address]- 3466 Jun, [facility] [place] [facility] [address] [id number] [place] [address]- 7391 Jun, [facility] [place] [facility] [address] [id number] [place] [address]- 1322 May, [facility] [place] [facility] [address] [id number] [place] [address]- 9419 May, [facility] [place] [facility] [address] [id number] [place] [address]- 6144 Apr, [facility] [place] [facility] [address] [id number] [place] [address]- 5730 Apr, [facility] [place] [facility] [address] [id number], [place] [address] Mar, [facility] [place] [facility] [address] [id number] [place] [address]- 7428 Mar, [facility] [place] [facility] [address] [id number], [place] [address]- 1377 30 Mar, 2012 [facility] [place] [facility] [address] [id number], [place] [address]- 2483 30 Mar, 2012 [facility] [place] [facility] [address] [id number], [place] [address]- 9634 Mar, [facility] [place] [facility] [address] [id number] [place] [address]- 0237 Mar, [facility] [place] [facility] [address] [id number], [place] [address]- 1576 Mar, [facility] [place] [facility] [address] [id number], [place] [address]- 4587 Mar, [facility] [place] [facility] [address] [id number], [place] [address]- 2916 Mar, [facility] [place] [facility] [address] [id number] [place] [address]- 2599 Feb, [facility] [place] [facility] [address] [id number] [place] [address]- 3859 Jan, [facility] [place] [facility] [address] [id number] [place] [address]- 7078 Jan, [facility] [place] [facility] [address] [id number] [place] [address]- 5582 Dec, [facility] [place] [facility] [address] [id number] [place] [address] Dec, [facility] [place] [facility] [address] [id number] [place] [address] Dec, [facility] [place] [facility] [address] [facility] [id number] [place] [address] Nov, [facility] [place] [facility] [address] [id number] [place] [address] Nov, [facility] [place] [facility] [address] [id number] [place] [address] Nov, [facility] [place] [facility] [address] [facility] [id number] [place] [address] Nov, [facility] [place] [facility] [address] [id number] [place] [address] October, [facility] [place] [facility] [address] [id number] [place] [address] October, [facility] [place] [facility] [address] [id number] [place] [address] Sep, [facility] [place] [facility] [address] [id number] [place] [address] Sep, [facility] [place] [facility] [address] [facility] [id number] [place] [address] Aug, [facility] [place] [facility] [address] [id number] [place] [address] 10 Jul, 2011 [facility] [place] [facility] [address] [id number] [place] [address] 04 Jul, 2011 [facility] [place] [facility] [address] [id number] [place] [address] 02 Jul, 2011 [facility] [place] [facility] [address] [id number] [place] [address] Jul, [facility] [place] [facility] [address] [id number] [place] [address] 27 Jun, 2011 [facility] [place] [facility] [address] [id number] [place] [address] 15 May, 2011 [facility] [place] [facility] [address] [id number] [place] [address] 15 May, 2011 [facility] [place] [facility] [address] [id number] [place] [address] 15 May, 2011 [facility] [place] [facility] [address] [id number] [place] [address] 13 May, 2011 [facility] [place] [facility] [address] [id number] [place] [address] 08 May, 2011 [facility] [place] [facility] [address] [id number] [place] [address] 14 Apr, 2011 [facility] [place] [facility] [address] [id number] [place] [address] 14 Apr, 2011 [facility] [place] [facility] [address] [id number] [place] [address] 14 Apr, 2011 [facility] [place] [facility] [address] [id number] [place] [address] 07 Apr, 2011 [facility] [place] [facility] [address] [id number] [place] [address] 02 Apr, 2011 [facility] [place] [facility] [address] [id number], [place] [address] Mar, [facility] [address] [facility] [id number], [place] [address] Mar, [facility] [address] [facility] [id number], [place] [address] Mar, [facility] [address] [facility] [id number], [place] [address] 14 Mar, 2011 [facility] [address] [facility] [id number], [place] [address] Mar, [facility] [address] [facility] [id number], [place] [address] Mar, [facility] [address] [facility] [id number], [place] [address] Mar, [facility] [address] [facility] [id number], [place] [address] Mar, [facility] [address] [facility] [id number], [place] [address] Feb, [facility] [address] [facility] [id number], [place] [address] May, [facility] [id number], [place] [address] May, [facility] [address] [id number], [place] [address] May, [facility] [id number], [place] [address] Apr, [facility] [address] [id number], [place] [address] Mar, IMMUNIZATIONS No Known Immunizations SOCIAL HISTORY Never Assessed REASON FOR VISIT Psychiatric f/kareen Camacho MA PLAN OF CARE Activity Details Follow Up 4 Weeks Reason: VITAL SIGNS Height 69 in 2017-11-21 Weight 251.7 lbs 2017-11-21 Heart Rate 87 bpm 2017-11-21 Respiratory Rate 20 2017-11-21 Oximetry on room air:98 % 2017-11-21 BMI 37.17 kg/m2 2017-11-21 Blood pressure systolic 130 mmHg 2017-11-21 Blood pressure diastolic 78 mmHg 2017-11-21 MEDICATIONS Medication Instructions Dosage Frequency Start Date End Date Duration Status Ibuprofen 800 MG TAKE ONE TABLET BY MOUTH THREE TIMES DAILY WITH FOOD OR MILK 30 Active Zofran 4 MG Orally Twice a day 1 tablet 12h Sep, 30 day(s) Not -Taking Alprazolam 2 MG Orally part of taper 1 tablet mornign and 0.5 tablet night Active Alprazolam 0.25 MG Orally daily 3 tablet 24h Nov, Active Cholecalciferol 400 UNIT Orally Once a day 2 tablets 24h Sep, 30 day(s) Not-Taking Neurontin 300 MG Orally two times a day 3 capsules 12h Aug, 30 days Active ProAir HFA 108 (90 Base) MCG/ACT Inhalation every 4 hrs 2 puffs as needed 4h Jun, 1 month Active Lovastatin 40 mg Orally Once a day 1 tablet with a meal 24h Sep, 30 day(s) Not-Taking Sumatriptan Succinate 100 MG TAKE ONE TABLET BY MOUTH ONCE DAILY NEEDED MAY REPEAT IN 2 HOURS IF HEADACHE REOCCURS 14 Not-Taking Latuda 20 MG Orally with breakfast daily one week then take 40mg with breakfast daily-has samples 1 tablet October, Active Acyclovir 400 mg Orally 2 times a day TAKE ONE TABLET 12h 90 Active Effexor XR 150 MG Orally Once a day 1 capsule 24h Aug, Active Lisinopril 40 MG TAKE ONE TABLET BY MOUTH ONCE DAILY 30 Active Omeprazole 20 MG TAKE ONE CAPSULE BY MOUTH ONCE DAILY 90 Active Seroquel 50 MG Orally three times a day as needed [...] PPD, dx bipolar mood disorder type I 2001 Hospitalization History inpatient , SI 2007
--- OUTSIDE RECORDS SUMMARY | 2018-08-19 09:22 | XMS REPORT ---
Author Author CURTIS GLENN Organization [facility] Address [address] [place] [address] Care Team Providers Care Vault Installer Name Role Phone HARSHSALVADOR GLENN Unavailable PROBLEMS Type Condition ICD9-CM Code YWB49-MN Code Onset Dates Condition Status SNOMED Code Problem Mixed hyperlipidemia E78.2 Active 023832438 Problem Vitamin D deficiency E55.9 Active 47016909 Problem Essential hypertension I10 Active 62932760 Problem Mild intermittent asthma without complication J45.20 Active 923260695 Problem Generalized anxiety disorder F41.1 Active 28365342 Problem Gastroesophageal reflux disease, esophagitis presence not specified K21.9 Active 757029536 Problem Bipolar disorder, current episode mixed, moderate F31.62 Active 170786503 Problem Bipolar disorder F31.9 Active 31237708 Problem Panic disorder F41.0 Active 612134625 Problem Low back pain with sciatica, sciatica laterality unspecified, unspecified back pain laterality, unspecified chronicity M54.40 Active 520509670 Problem Acute right-sided low back pain with right-sided sciatica M54.41 Active 70914029 Problem Excessive thirst R63.1 Active 54732694 Problem Concussion without loss of consciousness, initial encounter S06.0X0A Active 02796637 Problem Primary insomnia F51.01 Active 137630853 Problem Anxiety F41.9 Active 11524735 Problem Hematuria R31.9 Active 16844173 Problem Hot flashes R23.2 Active 078802745 Problem Multiple fractures T07.XXXA Active 832897885 Problem Nausea R11.0 Active 405529001 Problem Hospital discharge follow-up Z09 Active 354231548 Problem Breast tenderness N64.4 Active 41984218 Problem Depression F32.9 Active 55245990 Problem Hidradenitis suppurativa L73.2 Active 79104292 Problem History of IBS Z87.19 Active 63455003497750 Problem Localized edema R60.0 Active 355290872 Problem Posttraumatic stress disorder F43.10 Active 37013124 Problem Genital herpes simplex, unspecified site A60.00 Active 60535808 Problem Tobacco use Z72.0 Active 959629265 ALLERGIES No Information ENCOUNTERS Encounter Location Date Diagnosis [place] [id number] [place] [address] 78237- 0536 Feb, [place] [address] [place] [id number] [place] [address] 73134- 0937 Jan, [place] [address] [place] [id number] [place] [address] 57512- 9579 Jan, Genital herpes simplex, unspecified site A60.00 [place] [address] [place] [id number] [place] [address] 24707- 6651 Jan, Panic disorder F41.0 [place] [address] [place] [id number] [place] [address] 16872- 9792 Dec, Diaphoresis R61 and Excessive thirst R63.1 [place] [address] [place] [id number] [place] [address] 06598- 0283 Dec, Panic disorder F41.0 ; Bipolar disorder, current episode mixed, moderate F31.62 and Generalized anxiety disorder F41.1 [place] [id number] [place] [address] 61828- 8764 Dec, Panic disorder F41.0 [place] [id number] [place] [address] 62075- 6302 Nov, Panic disorder F41.0 [place] [address] [place] [id number] [place] [address] 65215- 3920 Nov, Panic disorder F41.0 ; Generalized anxiety disorder F41.1 and Bipolar disorder, current episode mixed, moderate F31.62 [place] [address] [place] [address] 69600- 5927 Nov, Panic disorder F41.0 [place] [id number] [place] [address] 22690- 8049 Nov, Panic disorder F41.0 [place] [address] [place] [id number] [place] [address] 10723- 1825 October, Panic disorder F41.0 [place] [address] [place] [id number] [place] [address] 20705- 7768 October, Panic disorder F41.0 ; Generalized anxiety disorder F41.1 and Bipolar disorder, current episode mixed, moderate F31.62 [place] [address] 67711- 7278 October, Panic disorder F41.0 [place] [address] 56889- 9462 Sep, Hospital discharge follow-up Z09 ; Concussion without loss of consciousness, initial encounter S06.0X0A and Nausea R11.0 [place] [address] [place] [id number] [place] [address] 49372- 8086 Sep, [place] [address] [place] [id number] [place] [address] 94338- 4579 Sep, Panic disorder F41.0 [place] [address] 95490- 1950 Sep, [place] [address] [place] [id number] [place] [address] 97823- 5551 Sep, Well woman exam with routine gynecological exam Z01.419 ; Multiple fractures T07.XXXA ; Hot flashes R23.2 ; Essential hypertension I10 ; Mixed hyperlipidemia E78.2 ; Genital herpes simplex, unspecified site A60.00 ; Alkaline phosphatase elevation R74.8 ; Dysuria R30.0 ; Vitamin D deficiency E55.9 ; Tobacco use Z72.0 ; High risk sexual behavior Z72.51 and Encounter for immunization Z23 [place] [address] [place] [id number] [place] [address] 06129- 1325 Aug, Panic disorder F41.0 ; Generalized anxiety disorder F41.1 and Bipolar disorder, current episode mixed, moderate F31.62 [place] [address] [place] [address] [address] 9467 Aug, [facility] [id number] [place] [address] 30024- 8655 Jul, Panic disorder F41.0 ; Generalized anxiety disorder F41.1 and Bipolar disorder, current episode mixed, moderate F31.62 [facility] [address] [place] [id number] [place] [address] 96345- 4558 Jul, [facility] [address] [place] [address] [id number] [place] [address] 80816- 8902 Jul, [facility] [address] [place] [id number] [place] [address] 23097- 0482 Jul, Effusion, right knee M25.461 ; Acute pain of right knee M25.561 and Acute pain of left knee M25.562 [place] [address] [place] [id number] [place] [address] 64581- 7700 Jun, Bipolar disorder, current episode mixed, moderate F31.62 ; Generalized anxiety disorder F41.1 and Panic disorder F41.0 [place] [address] [place] [id number] [place] [address] 48124- 2020 May, Bipolar disorder, current episode mixed, moderate F31.62 ; Generalized anxiety disorder F41.1 and Panic disorder F41.0 [place] [address] [place] [address] 80214- 9385 May, Bipolar disorder, current episode mixed, moderate F31.62 [facility] [address] [place] [address] 82137- 4540 May, Bipolar disorder, current episode mixed, moderate F31.62 [facility] [address] [place] [id number] [place] [address] 96151- 3777 Apr, Bipolar disorder, current episode mixed, moderate F31.62 ; Generalized anxiety disorder F41.1 and Panic disorder F41.0 [facility] [address] [place] [id number] [place] [address] 49946- 8074 Mar, [facility] [id number] [place] [address] 93468- 7542 Mar, Bipolar disorder, current episode mixed, moderate F31.62 ; Generalized anxiety disorder F41.1 and Panic disorder F41.0 [facility] [address] [place] [id number] [place] [address] 49199- 1816 Feb, [facility] [address] [place] [id number] [place] [address] 98701- 4384 22 Feb, 2017 Posttraumatic stress disorder F43.10 [facility] [address] [place] [id number] [place] [address] 35473- 6631 20 Feb, 2017 Gastroesophageal reflux disease, esophagitis presence not specified K21.9 [facility] [address] [place] [id number] [place] [address] 84752- 0638 13 Feb, 2017 [facility] [address] [place] [id number] [place] [address] 00577- 6553 06 Feb, 2017 Knee pain, right anterior M25.561 [facility] [address] [address] [id number] [place] [address] 34262- 2602 05 Feb, 2017 HSV (herpes simplex virus) infection B00.9 [facility] [address] [place] [address] [id number] [place] [address] 34304- 4763 Feb, [facility] [address] [place] [address] [id number] [place] [address] 68787- 9003 Jan, [facility] [address] [place] [id number] [place] [address] 45478- 9489 Jan, Posttraumatic stress disorder F43.10 [facility] [address] [place] [id number] [place] [address] 29572- 2435 Jan, Foot pain, left M79.672 [facility] [address] [place] [id number] [place] [address] 22201- 4812 Jan, [facility] [address] [place] [id number] [place] [address] 39560- 6558 Jan, Lumbar radiculopathy, acute M54.16 ; Muscle spasm of back M62.830 and Right hip pain M25.551 [facility] [address] [place] [id number] [place] [address] 30900- 8085 Jan, Lumbar radiculopathy, acute M54.16 [facility] [address] [place] [id number] [place] [address] 10488- 9046 Jan, [facility] [address] [place] [id number] [place] [address] 51111- 8669 Jan, [facility] [address] [place] [id number] [place] [address] 76538- 3577 Dec, Lumbar radiculopathy, acute M54.16 ; Acute renal insufficiency N28.9 and Muscle spasm of back M62.830 [facility] [address] [place] [id number] [place] [address] 06591- 1776 Dec, [facility] [address] [place] [id number] [place] [address] 61871- 5180 Dec, [facility] [address] [place] [id number] [place] [address] 58704- 0722 Dec, [facility] [id number] [place] [address] 13928 -1639 Dec, Low back pain with sciatica, sciatica laterality unspecified, unspecified back pain laterality, unspecified chronicity M54.40 and Acute right-sided low back pain with right-sided sciatica M54.41 [facility] [address] [place] [id number] [place] [address] 82754- 0973 Dec, Posttraumatic stress disorder F43.10 [facility] [address] [place] [id number] [place] [address] 94126- 5080 Dec, [facility] [address] [place] [address] [id number] [place] [address] 12788- 2382 Dec, Pain in right thigh M79.651 and Acute right-sided low back pain without sciatica M54.5 [facility] [address] [address]- 9645 10 Dec, 2016 Posttraumatic stress disorder F43.10 and Major depressive disorder, recurrent episode with anxious distress F33.9 [facility] [address] [address] 08 Dec, 2016 [facility] [address] [place] [id number] [place] [address] 97939- 0217 Nov, [facility] [address] [place] [address] [id number] [place] [address] 39690- 9458 October, [facility] [address] [place] [address] [id number] [place] [address] 70831- 6223 October, [facility] [address] [place] [address] [id number] [place] [address] 29640- 4214 October, Knee pain, right anterior M25.561 [facility] [address] [place] [id number] [place] [address] 48531- 7561 October, Knee pain, right anterior M25.561 [facility] [address] [place] [id number] [place] [address] 47173- 1945 October, [facility] [address] [place] [address] [id number] [place] [address] 45019- 0767 October, [facility] [address] [address]- 1427 October, [facility] [address] [address] -4215 Sep, [facility] [address] [place] [address] [id number] [place] [address] 89582- 8094 Sep, [facility] [address] [address]- 1350 Sep, Essential hypertension I10 [facility] [address] [place] [id number] [place] [address] 65350- 7231 Sep, Essential hypertension I10 [place] [address] [place] [id number] [place] [address] 83080- 1242 Sep, [facility] [address] [place] [id number] [place] [address] 02196- 2483 Sep, Posttraumatic stress disorder F43.10 and Major depressive disorder, recurrent episode with anxious distress F33.9 [place] [address] [place] [id number] [place] [address] 96487- 0934 Sep, Multiple fractures T14.8 ; Alkaline phosphatase elevation R74.8 and Vitamin D deficiency E55.9 [place] [address] [place] [id number] [place] [address] 83752- 9574 Sep, [place] [address] [place] [id number] [place] [address] 59071- 0206 Sep, Elevated serum creatinine R79.89 ; Fracture of foot, left, closed, initial encounter S92.902A and Alkaline phosphatase elevation R74.8 [place] [address] [place] [id number] [place] [address] 92130- 9402 Sep, Elevated serum creatinine R79.89 and Essential hypertension I10 [place] [address] [place] [id number] [place] [address] 31893- 0276 Sep, [place] [address] [place] [id number] [place] [address] 19866- 3502 Aug, Gastroesophageal reflux disease, esophagitis presence not specified K21.9 [place] [address] [place] [id number] [place] [address] 73314- 2566 Aug, Essential hypertension I10 ; Fracture of foot, left, closed , initial encounter S92.902A and Alkaline phosphatase elevation R74.8 [place] [address] [place] [id number] [place] [address] 89200- 5293 Jul, Genital herpes simplex, unspecified site A60.00 [place] [address] [place] [id number] [place] [address] 45555- 5320 Jul, Essential hypertension I10 [facility] [address] [address]- 6632 Jun, Cough R05 and Wheezing R06.2 [place] [address] [place] [id number] [place] [address] 63382- 3000 Jun, Essential hypertension I10 [place] [id number] [place] [address] 53701- 4843 May, Essential hypertension I10 [place] [address] [place] [id number] [place] [address] 33200- 8323 May, Posttraumatic stress disorder F43.10 and Major depressive disorder, recurrent episode with anxious distress F33.9 [place] [address] [place] [id number] [place] [address] 44871- 9319 Apr, [place] [address] [place] [id number] [place] [address] 76474- 3159 Apr, [place] [address] [place] [id number] [place] [address] 34016- 4217 Apr, [facility] [address] [place] [id number] [place] [address] 83503- 6897 Mar, [place] [address] [place] [id number] [place] [address] 71516- 8228 Feb, [place] [id number] [place] [address] 91633- 9459 Jan, [place] [address] [place] [id number] [place] [address] 21230- 1846 Jan, Essential hypertension I10 ; Mixed hyperlipidemia E78.2 ; Gastroesophageal reflux disease, esophagitis presence not specified K21.9 ; Mild intermittent asthma without complication J45.20 ; Hidradenitis suppurativa L73.2 ; Migraine without status migrainosus, not intractable, unspecified migraine type G43.909 ; Genital herpes simplex, unspecified site A60.00 and Closed traumatic minimally displaced fracture of metatarsal bone of left foot S92.302A [facility] [address], [place] [address] -1174 Jan, Localized edema R60.0 [facility] [address] [place] [id number] [place] [address] 29788- 1685 Dec, [facility] [address] [place] [address] [id number] [place] [address] 34438- 0387 Dec, [facility] [address] [place] [address] [id number] [place] [address] 79075- 9753 Dec, [facility] [address] [id number] [place] [address] 64210 -1975 Dec, Cough R05 ; Tobacco dependence F17.200 and Costochondritis , acute M94.0 [facility] [address] [place] [address] [id number] [place] [address] 20700- 4687 Dec, Major depression, recurrent F33.9 ; Bipolar disorder, unspecified F31.9 and Posttraumatic stress disorder F43.10 [facility] [address] [place] [address] 16108- 0636 Nov, [facility] [address] [id number] [place] [address] 72210- 8713 Nov, [facility] [id number] [place] [address] 58851- 2566 October, [facility] [address], [place] [address] -7707 October, Acute upper respiratory infection, unspecified J06.9 [facility] [address], [place] [address]- 1548 October, [facility] [id number] [place] [address] 00796- 7054 Sep, Bipolar affective disorder, remission status unspecified F31.9 and Post-traumatic stress disorder F43.10 [facility] [address], [place] [address]- 5382 Sep, Bipolar disorder, unspecified F31.9 ; Posttraumatic stress disorder F43.10 and Major depression, recurrent F33.9 [place] [address] [place] [id number] [place] [address] 77469- 5913 16 Aug, 2015 Edema R60.9 ; Fatigue R53.83 and Polydipsia R63.1 [place] [address] [place] [id number] [place] [address] 51072- 6706 Aug, [facility] [address] [address] [id number] [place] [address] 06028- 2493 Aug, [facility] [address] [id number] [place] [address] 88659- 7418 Jul, [place] [address] [place] [id number] [place] [address] 30470- 5037 Jul, [place] [address] [place] [id number] [place] [address] 53920- 0453 Jun, [place] [address] [place] [id number] [place] [address] 64436- 5178 Jun, [place] [address] [place] [id number] [place] [address] 92537- 1064 Jun, [place] [address] [place] [id number] [place] [address] 58666- 6709 Jun, [place] [id number] [place] [address] 00834- 0386 May, Mixed hyperlipidemia E78.2 [place] [address] [address] [address]- 4176 23 May, 2015 Well woman exam Z01.419 ; History of herpes simplex infection Z86.19 ; Papanicolaou smear Z12.4 ; History of depression Z86.59 ; History of anxiety Z86.59 ; Lipoma of other specified sites D17.79 ; Hidradenitis suppurativa L73.2 ; Routine screening for STI (sexually transmitted infection) Z11.3 and Tobacco use Z72.0 [place] [address] [place] [id number] [place] [address] 67078- 7586 May, Hematuria R31.9 ; Essential hypertension I10 ; Pure hypercholesterolemia E78.0 and Hidradenitis L73.2 [place] [address] [id number] [place] [address] 98534- 4847 May, Upper respiratory symptom R09.89 and Allergic rhinitis J30.9 [place] [address] [place] [id number] [place] [address] 13726- 7138 May, [facility] [id number] [place] [address] 13183- 1951 May, [place] [address] [address] [id number] [place] [address] 50292- 5449 May, Bipolar disorder, unspecified F31.9 ; Posttraumatic stress disorder F43.10 and Major depression, recurrent F33.9 [place] [address] [address] [id number] [place] [address] 93624- 2578 May, [facility] [id number] [place] [address] 80708- 1110 May, [place] [address] [id number] [place] [address] 02867- 9414 Apr, [facility] [id number] [place] [address] 20119- 9668 Apr, [facility] [id number] [place] [address] 51870- 0540 Mar, [facility] [id number] [place] [address] 47076- 9673 Mar, [facility] [id number] [place] [address] 51108- 8321 Mar, [facility] [id number] [place] [address] 66374- 9751 18 Feb, 2015 Major depressive disorder, recurrent episode, moderate 296.32 and Post traumatic stress disorder (PTSD) 309.81 [facility] [address] [address]- 7204 10 Feb, 2015 [facility] [address], [place] [address]- 9326 Feb, [facility] [address], [place] [address]- 0829 Jan, Cough 786.2 [facility] [id number] [place] [address] 14440- 3830 Jan, Depression, major, recurrent, moderate 296.32 and Post traumatic stress disorder (PTSD) 309.81 [facility] [address] [place] [address] 96199- 7334 Jan, [facility] [id number] [place] [address] 32195- 3089 Dec, [facility] [id number] [place] [address] 64853- 4137 Dec, Generalized anxiety disorder 300.02 and Depression, major, recurrent, moderate 296.32 [facility] [address] [address] Dec, [facility] [id number] [place] [address] 63692- 6674 Dec, High risk medication use V58.69 [facility] [address] [address] Dec, High risk medication use V58.69 [facility] [address], [place] [address] Dec, [facility] [address] [address] Nov, Generalized anxiety disorder 300.02 and Major depressive disorder, recurrent episode, moderate 296.32 [facility] [address] [id number] Nov, Dental examination V72.2 [facility] [id number] [id number] 17 Nov, 2014 Dental examination V72.2 [facility] [place] [address] [place] [address] 15 Nov, 2014 [facility] [address] [id number] Nov, Dental examination V72.2 [facility] [address] [id number] Nov, Dental examination V72.2 [facility] [id number] [place] [address] [phone]- 7126 October, Major depressive disorder, recurrent episode, moderate 296.32 and Generalized anxiety disorder 300.02 [facility] [address] [address] October, [facility] [address] [address] October, [facility] [address], [place] [address] October, [facility] [address], [place] [address] 14 Sep, 2014 [facility] [address] [address] Sep, [facility] [address] [address] 17 Aug, 2014 [facility] [address] [facility] [id number] [address] 2546 17 Aug, 2014 [facility] [address] [id number] [address] Aug, [facility] [address] [facility] [id number], [place] [address] 2546 Aug, [facility] [id number], [place] [address] 2546 Aug, [facility] [place] [facility] [address] [id number] [place] [address] 6[address] Aug, [facility] [place] [facility] [address] [id number] [place] [address] 5821 Aug, [facility] [place] [facility] [address] [id number] [place] [address] 8256 Jul, 2014 [facility] [place] [facility] [address] [id number] [place] [address]- 6397 Jul, 2014 [facility] [place] [facility] [address] [id number] [place] [address]- 0291 Jul, 2014 [facility] [place] [facility] [address] [id number] [place] [address]- 8291 Jul, 2014 [facility] [place] [facility] [address] [id number] [place] [address]- 2866 Jul, 2014 [facility] [place] [facility] [address] [id number] [place] [address] 1080 Jul, 2014 [facility] [place] [facility] [address] [id number] [place] [address]- 9245 Jul, 2014 [facility] [place] [facility] [address] [id number] [place] [address]- 1588 Jul, [facility] [place] [facility] [address] [id number] [place] [address]- 3911 Jul, [facility] [place] [facility] [address] [id number] [place] [address]- 8444 Jun, [facility] [place] [facility] [address] [id number] [place] [address]- 7240 Jun, [facility] [place] [facility] [address] [id number] [place] [address]- 6144 Jun, [facility] [place] [facility] [address] [id number] [place] [address]- 0722 Jun, [facility] [place] [facility] [address] [id number] [place] [address]- 4001 Jun, [facility] [place] [facility] [address] [id number] [place] [address]- 3064 Jun, [facility] [place] [facility] [address] [id number] [place] [address]- 9875 Jun, [facility] [place] [facility] [address] [id number] [place] [address]- 5603 Jun, [facility] [place] [facility] [address] [id number] [place] [address]- 9121 Jun, [facility] [place] [facility] [address] [id number] [place] [address]- 9137 Jun, [facility] [place] [facility] [address] [id number] [place] [address]- 1370 Jun, [facility] [place] [facility] [address] [id number] [place] [address]- 3185 Jun, [facility] [place] [facility] [address] [id number] [place] [address]- 9122 Jun, [facility] [place] [facility] [address] [id number] [place] [address]- 3935 Jun, [facility] [place] [facility] [address] [id number] [place] [address]- 6613 Jun, [facility] [place] [facility] [address] [id number] [place] [address]- 2634 Jun, [facility] [place] [facility] [address] [id number] [place] [address]- 3684 Jun, [facility] [place] [facility] [address] [id number] [place] [address]- 4744 Jun, [facility] [place] [facility] [address] [id number] [place] [address]- 4555 Jun, [facility] [place] [facility] [address] [id number] [place] [address]- 3531 Jun, [facility] [place] [facility] [address] [id number] [place] [address]- 0864 Jun, [facility] [place] [facility] [address] [id number] [place] [address]- 7697 Jun, [facility] [place] [facility] [address] [id number] [place] [address]- 6917 Jun, [facility] [place] [facility] [address] [id number] [place] [address]- 5462 Jun, [facility] [place] [facility] [address] [id number] [place] [address]- 0868 Jun, [facility] [place] [facility] [address] [id number] [place] [address]- 6951 May, [facility] [place] [facility] [address] [id number] [place] [address]- 7920 May, [facility] [place] [facility] [address] [id number] [place] [address]- 4266 May, [facility] [place] [facility] [address] [id number] [place] [address]- 8841 May, [facility] [place] [facility] [address] [id number] [place] [address]- 4731 May, [facility] [place] [facility] [address] [id number] [place] [address]- 2851 May, [facility] [place] [facility] [address] [id number] [place] [address]- 0751 May, [facility] [place] [facility] [address] [id number] [place] [address]- 0422 May, [facility] [place] [facility] [address] [id number] [place] [address]- 4867 May, [facility] [place] [facility] [address] [id number] [place] [address]- 7448 May, [facility] [place] [facility] [address] [id number] [place] [address]- 7510 May, [facility] [place] [facility] [address] [id number] [place] [address]- 9823 May, [facility] [place] [facility] [address] [id number] [place] [address]- 9126 May, [facility] [place] [facility] [address] [facility] [id number] [place] [address]- 4628 May, [facility] [place] [facility] [address] [id number] [place] [address]- 7092 May, [facility] [place] [facility] [address] [id number] [place] [address]- 2415 May, [facility] [place] [facility] [address] [id number] [place] [address]- 5830 May, [facility] [place] [facility] [address] [id number] [place] [address]- 1198 May, [facility] [place] [facility] [address] [id number] [place] [address]- 5550 Apr, [facility] [place] [facility] [address] [id number] [place] [address]- 5741 Apr, [facility] [place] [facility] [address] [id number] [place] [address]- 2966 Apr, [facility] [place] [facility] [address] [id number], [place] [address]- 1186 Apr, [facility] [place] [facility] [address] [id number], [place] [address]- 4944 Apr, [facility] [place] [facility] [address] [id number] [place] [address]- 7713 Apr, [facility] [place] [facility] [address] [id number] [place] [address]- 5040 Apr, [facility] [place] [facility] [address] [id number], [place] [address]- 4011 Apr, [facility] [place] [facility] [address] [id number] [place] [address]- 6418 Mar, [facility] [place] [facility] [address] [id number] [place] [address]- 8616 Mar, [facility] [place] [facility] [address] [id number] [place] [address]- 4145 Feb, [facility] [place] [facility] [address] [id number] [place] [address]- 9626 Feb, 2013 [facility] [place] [facility] [address] [id number] [place] [address]- 2548 Feb, [facility] [place] [facility] [address] [id number] [place] [address]- 7041 Feb, [facility] [place] [facility] [address] [id number] [place] [address]- 6589 Feb, [facility] [place] [facility] [address] [id number] [place] [address]- 8849 Feb, [facility] [place] [facility] [address] [id number] [place] [address]- 5046 Feb, [facility] [place] [facility] [address] [id number] [place] [address]- 8606 Feb, [facility] [place] [facility] [address] [id number] [place] [address]- 2058 Feb, [facility] [place] [facility] [address] [id number] [place] [address]- 2545 Feb, [facility] [place] [facility] [address] [id number] [place] [address]- 8389 Jan, [facility] [place] [facility] [address] [id number] [place] [address]- 9014 Jan, [facility] [place] [facility] [address] [id number] [place] [address]- 1269 Jan, [facility] [place] [facility] [address] [id number] [place] [address]- 4122 Jan, [facility] [place] [facility] [address] [id number] [place] [address]- 2112 Jan, [facility] [place] [facility] [address] [id number] [place] [address]- 8445 Jan, [facility] [place] [facility] [address] [id number] [place] [address]- 6291 Jan, [facility] [place] [facility] [address] [id number] [place] [address]- 4990 Jan, [facility] [place] [facility] [address] [id number] [place] [address]- 6219 Jan, [facility] [place] [facility] [address] [id number] [place] [address]- 1304 Jan, [facility] [place] [facility] [address] [id number] [place] [address]- 4267 Jan, [facility] [place] [facility] [address] [id number] [place] [address]- 7879 Jan, [facility] [place] [facility] [address] [id number] [place] [address]- 9217 Jan, [facility] [place] [facility] [address] [id number] [place] [address]- 7514 Dec, [facility] [place] [facility] [address] [id number] [place] [address]- 2182 Dec, [facility] [place] [facility] [address] [id number] [place] [address]- 8602 Dec, [facility] [place] [facility] [address] [id number] [place] [address]- 1407 Dec, [facility] [place] [facility] [address] [id number] [place] [address]- 4284 Dec, [facility] [place] [facility] [address] [id number] [place] [address]- 5456 Dec, [facility] [place] [facility] [address] [id number] [place] [address]- 1232 Dec, [facility] [place] [facility] [address] [id number] [place] [address]- 3865 Dec, [facility] [place] [facility] [address] [id number] [place] [address]- 8969 Dec, [facility] [place] [facility] [address] [id number] [place] [address]- 1953 Dec, [facility] [place] [facility] [address] [id number] [place] [address]- 2503 Dec, [facility] [place] [facility] [address] [id number] [place] [address]- 0724 Dec, [facility] [place] [facility] [address] [id number] [place] [address]- 7460 Dec, [facility] [place] [facility] [address] [id number] [place] [address]- 7189 Dec, [facility] [place] [facility] [address] [id number] [place] [address]- 3250 Nov, [facility] [place] [facility] [address] [id number] [place] [address]- 4766 Nov, [facility] [place] [facility] [address] [id number] [place] [address]- 3947 Nov, [facility] [place] [facility] [address] [id number] [place] [address]- 5827 Nov, [facility] [place] [facility] [address] [id number] [place] [address]- 5473 Nov, [facility] [place] [facility] [address] [id number] [place] [address]- 9755 Nov, [facility] [place] [facility] [address] [id number] [place] [address]- 7788 Nov, [facility] [place] [facility] [address] [id number] [place] [address]- 8947 Nov, [facility] [place] [facility] [address] [id number] [place] [address]- [address] October, [facility] [address] [id number] [place] [address]- 9976 October, [facility] [place] [facility] [address] [id number] [place] [address]- 7496 October, [facility] [place] [facility] [address] [id number] [place] [address]- 5761 October, [facility] [place] [facility] [address] [id number] [place] [address]- 8311 October, [facility] [place] [facility] [address] [id number] [place] [address]- 1192 October, [facility] [place] [facility] [address] [id number] [place] [address]- 1572 October, [facility] [place] [facility] [address] [id number] [place] [address]- 3240 October, [facility] [address] [id number] [place] [address]- 1854 October, [facility] [place] [facility] [address] [id number] [place] [address]- 2044 October, [facility] [place] [facility] [address] [id number] [place] [address]- 8424 October, [facility] [place] [facility] [address] [id number] [place] [address]- 1193 October, [facility] [place] [facility] [address] [id number] [place] [address]- 9048 October, [facility] [place] [facility] [address] [id number] [place] [address]- 4895 October, [facility] [place] [facility] [address] [id number] [place] [address]- 6236 October, [facility] [place] [facility] [address] [id number] [place] [address]- 7261 October, [facility] [address] [id number] [place] [address]- 7036 Sep, [facility] [place] [facility] [address] [id number] [place] [address]- 5784 Sep, [facility] [place] [facility] [address] [id number] [place] [address]- 6319 Sep, [facility] [place] [facility] [address] [id number] [place] [address]- 4825 Sep, [facility] [place] [facility] [address] [id number] [place] [address]- 6164 Sep, [facility] [place] [facility] [address] [id number] [place] [address]- 1600 Sep, [facility] [place] [facility] [address] [id number] [place] [address]- 9688 Sep, [facility] [place] [facility] [address] [id number] [place] [address]- 2712 Sep, [facility] [place] [facility] [address] [id number] [place] [address]- 4179 Sep, [facility] [place] [facility] [address] [id number] [place] [address]- 6000 Sep, [facility] [place] [facility] [address] [id number] [place] [address]- 8661 Sep, [facility] [place] [facility] [address] [id number] [place] [address]- 9844 Sep, [facility] [place] [facility] [address] [id number] [place] [address]- 7333 Sep, [facility] [place] [facility] [address] [id number] [place] [address]- 2304 Sep, [facility] [place] [facility] [address] [id number] [place] [address]- 5478 Sep, [facility] [place] [facility] [address] [id number] [place] [address]- 2266 Sep, [facility] [place] [facility] [address] [id number] [place] [address]- 0572 Sep, [facility] [place] [facility] [address] [id number] [place] 9238 Sep, [facility] [place] [facility] [address] [facility] [id number] [place] [address]- 6217 Sep, [facility] [place] [facility] [address] [id number] [place] [address]- 1050 Aug, [facility] [place] [facility] [address] [id number] [place] [address]- 8041 Aug, [facility] [place] [facility] [address] [facility] [id number] [place] [address]- 4150 Aug, [facility] [place] [facility] [address] [facility] [id number] [place] [address]- 7124 Aug, [facility] [place] [facility] [address] [facility] [id number] [place] [address]- 5505 Jul, [facility] [place] [facility] [address] [facility] [id number] [place] [address]- 1209 Jul, [facility] [place] [facility] [address] [facility] [id number] [place] [address]- 2572 Jul, [facility] [place] [facility] [address] [facility] [id number] [place] [address]- 7346 Jul, [facility] [place] [facility] [address] [facility] [id number] [place] [address]- 6542 Jul, [facility] [place] [facility] [address] [facility] [id number] [place] [address]- 1266 Jul, [facility] [place] [facility] [address] [facility] [id number] [place] [address]- 9511 Jul, [facility] [place] [facility] [address] [facility] [id number] [place] 1336 Jul, [facility] [place] [facility] [address] [id number] [place] [address]- 0303 Jul, [facility] [place] [facility] [address] [id number] [place] [address]- 3937 Jul, [facility] [place] [facility] [address] [id number] [place] [address]- 5763 Jul, [facility] [place] [facility] [address] [id number] [place] [address]- 7701 Jul, [facility] [place] [facility] [address] [id number] [place] [address]- 8541 Jun, [facility] [place] [facility] [address] [id number] [place] [address]- 7483 Jun, [facility] [place] [facility] [address] [id number] [place] [address]- 5285 Jun, [facility] [place] [facility] [address] [id number] [place] [address]- 9099 Jun, [facility] [place] [facility] [address] [id number] [place] [address]- 1422 Jun, [facility] [place] [facility] [address] [id number] [place] [address]- 9673 Jun, [facility] [place] [facility] [address] [id number] [place] [address]- 5890 May, [facility] [place] [facility] [address] [id number] [place] [address]- 7184 May, [facility] [place] [facility] [address] [id number] [place] [address]- 0772 Apr, [facility] [place] [facility] [address] [id number] [place] [address]- 3445 Apr, [facility] [place] [facility] [address] [id number] [place] [address]- 0080 Apr, [facility] [place] [facility] [address] [id number] [place] [address]- 3090 19 Apr, 2013 [facility] [address] [id number] [place] [address]- 6246 18 Apr, 2013 [facility] [place] [facility] [address] [id number] [place] [address]- 4261 18 Apr, 2013 [facility] [address] [id number] [place] [address]- 6495 17 Apr, 2013 [facility] [place] [facility] [address] [id number] [place] [address]- 1803 15 Apr, 2013 [facility] [address] [id number] [place] [address]- 4536 15 Apr, 2013 [facility] [place] [facility] [address] [id number] [place] [address] 15 Apr, 2013 [facility] [address] [id number] [place] [address] 7585 15 Apr, 2013 [facility] [address] [id number] [place] [address] 2828 13 Apr, 2013 [facility] [place] [facility] [address] [id number] [place] [address] Apr, [facility] [address] [id number] [place] [address] 8268 31 Mar, 2013 [facility] [place] [facility] [address] [id number] [place] [address] 65[address] 31 Mar, 2013 [facility] [place] [facility] [address] [id number], [place] [address] 25 Mar, 2013 [facility] [place] [facility] [address] [id number] [place] [address] 8604 25 Mar, 2013 [facility] [place] [facility] [address] [id number] [place] [address]- 8498 17 Mar, 2013 [facility] [place] [facility] [address] [id number] [place] [address]- 5907 17 Mar, 2013 [facility] [place] [facility] [address] [id number] [place] [address]- 0772 14 Mar, 2013 [facility] [place] [facility] [address] [id number] [place] [address]- 6478 14 Mar, 2013 [facility] [place] [facility] [address] [id number] [place] [address]- 0801 11 Mar, 2013 [facility] [place] [facility] [address] [id number] [place] [address]- 6522 11 Mar, 2013 [facility] [place] [facility] [address] [id number] [place] [address]- 6551 02 Mar, 2013 [facility] [place] [facility] [address] [id number] [place] [address]- 4003 30 Feb, 2013 [facility] [place] [facility] [address] [id number] [place] [address]- 0757 28 Feb, 2013 [facility] [place] [facility] [address] [id number] [place] [address]- 6313 27 Feb, 2013 [facility] [place] [facility] [address] [id number] [place] [address]- 2062 27 Feb, 2013 [facility] [place] [facility] [address] [id number] [place] [address]- 8268 20 Feb, 2013 [facility] [place] [facility] [address] [id number] [place] [address]- 1451 10 Feb, 2013 [facility] [place] [facility] [address] [id number], [place] [address] Jan, [facility] [place] [facility] [address] [id number] [place] [address]- 4[address] Jan, [facility] [place] [facility] [address] [id number] [place] [address]- 0646 Dec, [facility] [place] [facility] [address] [id number] [place] [address]- 7296 Dec, [facility] [place] [facility] [address] [id number] [place] [address]- 3347 15 Dec, 2012 [facility] [address] [id number] [place] [address] 8459 Dec, [facility] [address] [id number] [place] [address] 2153 Nov, [facility] [address] [id number] [place] [address]- 4140 Nov, [facility] [place] [facility] [address] [id number] [place] [address]- 4287 Nov, [facility] [address] [id number] [place] [address]- 6755 October, [facility] [address] [id number] [place] [address]- 6907 October, [facility] [address] [id number] [place] [address]- 3695 October, [facility] [address] [id number] [place] [address]- 9447 October, [facility] [address] [id number] [place] [address]- 2268 October, [facility] [address] [id number] [place] [address]- 2785 Sep, [facility] [address] [id number] [place] [address]- 7521 Sep, [facility] [place] [facility] [address] [id number] [place] [address]- 1079 Aug, [facility] [place] [facility] [address] [id number] [place] [address]- 8813 15 Aug, 2012 [facility] [place] [facility] [address] [id number] [place] [address]- 9239 Aug, [facility] [place] [facility] [address] [id number] [place] [address]- 7598 08 Aug, 2012 [facility] [place] [facility] [address] [id number] [place] [address]- 6578 Aug, [facility] [address] [id number] [place] [address]- 9944 18 Jul, 2012 [facility] [place] [facility] [address] [id number] [place] [address]- 0286 Jul, [facility] [place] [facility] [address] [id number] [place] [address]- 5846 Jul, [facility] [place] [facility] [address] [id number] [place] [address]- 6747 Jul, [facility] [place] [facility] [address] [id number] [place] [address] Jun, [facility] [address] [id number] [place] [address]- 4476 Jun, [facility] [address] [id number] [place] [address]- 1744 Jun, [facility] [address] [id number] [place] [address]- 1392 Jun, [facility] [place] [facility] [address] [id number] [place] [address]- 6852 Jun, [facility] [place] [facility] [address] [id number] [place] [address]- 6386 Jun, [facility] [place] [facility] [address] [id number] [place] [address]- 0545 Jun, [facility] [place] [facility] [address] [id number] [place] [address]- 1198 Jun, [facility] [place] [facility] [address] [id number] [place] [address]- 3302 Jun, [facility] [place] [facility] [address] [id number] [place] [address]- 5492 Jun, [facility] [place] [facility] [address] [id number] [place] [address]164 Jun, [facility] [place] [facility] [address] [id number] [place] [address]- 2103 May, [facility] [place] [facility] [address] [id number] [place] [address]- 1476 May, [facility] [place] [facility] [address] [facility] [id number] [place] [address]- 8252 Apr, [facility] [place] [facility] [address] [id number] [place] [address]- 5754 Apr, [facility] [place] [facility] [address] [id number] [place] [address]- 6367 Mar, [facility] [place] [facility] [address] [id number] [place] [address]- 4372 Mar, [facility] [place] [facility] [address] [id number] [place] [address]- 5844 Mar, [facility] [place] [facility] [address] [id number] [place] [address]- 9773 30 Mar, 2012 [facility] [place] [facility] [address] [id number] [place] [address]- 0484 Mar, [facility] [place] [facility] [address] [id number] [place] [address] Mar, [facility] [place] [facility] [address] [id number] [address] 16 Mar, 2012 [facility] [place] [facility] [address] [id number], [place] [address] Mar, [facility] [place] [facility] [address] [id number] [place] [address] Mar, [facility] [place] [facility] [address] [facility] [id number], [place] [address] Feb, [facility] [place] [facility] [address] [facility] [id number], [place] [address] Jan, [facility] [place] [facility] [address] [id number] [place] [address] Jan, [facility] [address] [id number] [place] [address] Dec, [facility] [place] [facility] [address] [id number] [place] [address] Dec, [facility] [address] [id number] [place] [address] Dec, [facility] [address] [id number] [place] [address] Nov, [facility] [address] [id number] [place] [address] Nov, [facility] [address] [id number] [place] [address] Nov, [facility] [address] [id number] [place] [address] Nov, [facility] [address] [id number] [place] [address] October, [facility] [place] [facility] [address] [id number] [place] [address] October, [facility] [address] [id number] [place] [address] Sep, [facility] [place] [facility] [address] [id number] [place] [address] Sep, [facility] [place] [facility] [address] [id number] [place] [address] Aug, [facility] [place] [facility] [address] [id number] [place] [address] Jul, [facility] [place] [facility] [address] [id number] [place] [address] Jul, [facility] [place] [facility] [address] [id number] [place] [address] Jul, [facility] [place] [facility] [address] [id number] [place] [address] Jul, [facility] [place] [facility] [address] [id number] [place] [address] Jun, [facility] [place] [facility] [address] [id number] [place] [address] 15 May, 2011 [facility] [place] [facility] [address] [id number] [place] [address] 15 May, 2011 [facility] [place] [facility] [address] [id number] [place] [address] 15 May, 2011 [facility] [place] [facility] [address] [id number] [place] [address] May, [facility] [place] [facility] [address] [id number] [place] [address] 08 May, 2011 [facility] [place] [facility] [address] [id number], [place] [address] 14 Apr, 2011 [facility] [place] [facility] [address] [id number] [place] [address] 14 Apr, 2011 [facility] [place] [facility] [address] [id number], [place] [address] 14 Apr, 2011 [facility] [place] [facility] [address] [id number], [place] [address] Apr, [facility] [place] [facility] [address] [id number], [place] [address] 02 Apr, 2011 [facility] [place] [facility] [address] [id number] [place] [address]- [address] Mar, [facility] [place] [facility] [address] [id number], [place] [address] 25 Mar, 2011 [facility] [place] [facility] [address] [id number], [place] [address] 14 Mar, 2011 [facility] [place] [facility] [address] [address] 14 Mar, 2011 [facility] [address], [place] [address] 13 Mar, 2011 [facility] [address] [address] 11 Mar, 2011 [facility] [address], [place] [address] Mar, [facility] [address], [place] [address] Mar, [facility] [id number] [place] [address] 14 Feb, 2011 [facility] [id number] [place] [address]- [address] May, [facility] [id number] [place] [address]- [address] May, [facility] [address], [place] [address] May, [facility] [address], [place] [address] Apr, [facility] [address], [place] [address] Mar, IMMUNIZATIONS No Known Immunizations SOCIAL HISTORY Never Assessed REASON FOR VISIT med refill PLAN OF CARE VITAL SIGNS MEDICATIONS Medication Instructions Dosage Frequency Start Date End Date Duration Status Seroquel 50 mg Orally three times a day as needed for anxiety 1 tablet Mar, 30 days Active RESULTS No Results PROCEDURES [...]
--- OUTSIDE RECORDS SUMMARY | 2018-08-19 09:23 | XMS REPORT ---
Author Author CURTIS GLENN Organization [facility] Address [address] [place] [address] Care Team Providers Care Darkroom Technician Name Role Phone HARSHSALVADOR GLENN Unavailable PROBLEMS Type Condition ICD9-CM Code YUT70-SA Code Onset Dates Condition Status SNOMED Code Problem Mixed hyperlipidemia E78.2 Active 801664175 Problem Vitamin D deficiency E55.9 Active 38670134 Problem Essential hypertension I10 Active 61578098 Problem Mild intermittent asthma without complication J45.20 Active 372194783 Problem Generalized anxiety disorder F41.1 Active 04870236 Problem Gastroesophageal reflux disease, esophagitis presence not specified K21.9 Active 048399253 Problem Bipolar disorder, current episode mixed, moderate F31.62 Active 421872679 Problem Bipolar disorder F31.9 Active 52288547 Problem Panic disorder F41.0 Active 860411217 Problem Low back pain with sciatica, sciatica laterality unspecified, unspecified back pain laterality, unspecified chronicity M54.40 Active 937638516 Problem Acute right-sided low back pain with right-sided sciatica M54.41 Active 02976569 Problem Excessive thirst R63.1 Active 41604062 Problem Concussion without loss of consciousness, initial encounter S06.0X0A Active 99280886 Problem Primary insomnia F51.01 Active 174111871 Problem Anxiety F41.9 Active 78279629 Problem Hematuria R31.9 Active 48698469 Problem Hot flashes R23.2 Active 600745838 Problem Multiple fractures T07.XXXA Active 055827925 Problem Nausea R11.0 Active 591996443 Problem Hospital discharge follow-up Z09 Active 492015938 Problem Breast tenderness N64.4 Active 49764829 Problem Depression F32.9 Active 23053131 Problem Hidradenitis suppurativa L73.2 Active 07250593 Problem History of IBS Z87.19 Active 57408931494663 Problem Localized edema R60.0 Active 600343299 Problem Posttraumatic stress disorder F43.10 Active 20544473 Problem Genital herpes simplex, unspecified site A60.00 Active 80562013 Problem Tobacco use Z72.0 Active 726066388 ALLERGIES No Information ENCOUNTERS Encounter Location Date Diagnosis [place] [id number] [place] [address] 01385- 7468 Feb, [place] [address] [place] [id number] [place] [address] 16125- 3242 Jan, [place] [address] [address] [id number] [place] [address] 51556- 1067 Jan, Genital herpes simplex, unspecified site A60.00 [place] [address] [address] [id number] [place] [address] 05476- 6967 Jan, Panic disorder F41.0 [place] [address] [id number] [place] [address] 03581- 7123 Dec, Diaphoresis R61 and Excessive thirst R63.1 [place] [address] [place] [address] [id number] [place] [address] 20528- 7641 Dec, Panic disorder F41.0 ; Bipolar disorder, current episode mixed, moderate F31.62 and Generalized anxiety disorder F41.1 [place] [id number] [place] [address] 13247- 4628 Dec, Panic disorder F41.0 [place] [id number] [place] [address] 05663- 8731 Nov, Panic disorder F41.0 [place] [address] [place] [id number] [place] [address] 10446- 1065 Nov, Panic disorder F41.0 ; Generalized anxiety disorder F41.1 and Bipolar disorder, current episode mixed, moderate F31.62 [place] [address] [place] [address] 35670- 9513 Nov, Panic disorder F41.0 [place] [address] [place] [address] 77701- 1198 Nov, Panic disorder F41.0 [place] [address] [place] [address] [id number] [place] [address] 25266- 2720 October, Panic disorder F41.0 [place] [address] [place] [id number] [place] [address] 64879- 4998 October, Panic disorder F41.0 ; Generalized anxiety disorder F41.1 and Bipolar disorder, current episode mixed, moderate F31.62 [place] [address] 47651- 9656 October, Panic disorder F41.0 [place] [address] 28118- 7798 Sep, Hospital discharge follow-up Z09 ; Concussion without loss of consciousness, initial encounter S06.0X0A and Nausea R11.0 [place] [address] [place] [id number] [place] [address] 66844- 0126 Sep, [place] [address] [place] [id number] [place] [address] 93075- 4426 Sep, Panic disorder F41.0 [place] [address] 80468- 0305 Sep, [place] [address] [place] [id number] [place] [address] 31357- 4819 Sep, Well woman exam with routine gynecological exam Z01.419 ; Multiple fractures T07.XXXA ; Hot flashes R23.2 ; Essential hypertension I10 ; Mixed hyperlipidemia E78.2 ; Genital herpes simplex, unspecified site A60.00 ; Alkaline phosphatase elevation R74.8 ; Dysuria R30.0 ; Vitamin D deficiency E55.9 ; Tobacco use Z72.0 ; High risk sexual behavior Z72.51 and Encounter for immunization Z23 [place] [address] [place] [id number] [place] [address] 06036- 2719 Aug, Panic disorder F41.0 ; Generalized anxiety disorder F41.1 and Bipolar disorder, current episode mixed, moderate F31.62 [place] [address] [place] [id number] [address] 9530 Aug, [facility] [id number] [place] [address] 77592- 0104 Jul, Panic disorder F41.0 ; Generalized anxiety disorder F41.1 and Bipolar disorder, current episode mixed, moderate F31.62 [facility] [address] [place] [address] [id number] [place] [address] 06157- 7022 Jul, [facility] [address] [id number] [place] [address] 73076- 2469 Jul, [facility] [address] [place] [id number] [place] [address] 15534- 2187 Jul, Effusion, right knee M25.461 ; Acute pain of right knee M25.561 and Acute pain of left knee M25.562 [place] [address] [place] [id number] [place] [address] 92806- 9276 Jun, Bipolar disorder, current episode mixed, moderate F31.62 ; Generalized anxiety disorder F41.1 and Panic disorder F41.0 [place] [address] [address] [id number] [place] [address] 46654- 2828 May, Bipolar disorder, current episode mixed, moderate F31.62 ; Generalized anxiety disorder F41.1 and Panic disorder F41.0 [place] [address] [place] [address] 58391- 6347 May, Bipolar disorder, current episode mixed, moderate F31.62 [facility] [address] [place] [address] 66389- 7902 May, Bipolar disorder, current episode mixed, moderate F31.62 [facility] [address] [place] [id number] [place] [address] 49831- 4741 Apr, Bipolar disorder, current episode mixed, moderate F31.62 ; Generalized anxiety disorder F41.1 and Panic disorder F41.0 [facility] [address] [place] [id number] [place] [address] 21328- 2905 Mar, [facility] [address] [place] [address] 93314- 7826 Mar, Bipolar disorder, current episode mixed, moderate F31.62 ; Generalized anxiety disorder F41.1 and Panic disorder F41.0 [facility] [address] [place] [id number] [place] [address] 29940- 4626 Feb, [facility] [address] [place] [address] [id number] [place] [address] 38924- 8225 22 Feb, 2017 Posttraumatic stress disorder F43.10 [facility] [address] [place] [id number] [place] [address] 06129- 3311 20 Feb, 2017 Gastroesophageal reflux disease, esophagitis presence not specified K21.9 [facility] [address] [place] [id number] [place] [address] 73727- 6335 13 Feb, 2017 [facility] [address] [place] [id number] [place] [address] 49714- 7844 06 Feb, 2017 Knee pain, right anterior M25.561 [facility] [address] [place] [id number] [place] [address] 37458- 9544 05 Feb, 2017 HSV (herpes simplex virus) infection B00.9 [facility] [address] [place] [id number] [place] [address] 23191- 4302 Feb, [facility] [address] [id number] [place] [address] 27654- 1951 Jan, [facility] [address] [id number] [place] [address] 17160- 7590 Jan, Posttraumatic stress disorder F43.10 [facility] [address] [place] [id number] [place] [address] 86106- 2138 Jan, Foot pain, left M79.672 [facility] [address] [place] [id number] [place] [address] 27466- 3349 Jan, [facility] [address] [place] [id number] [place] [address] 53628- 6967 Jan, Lumbar radiculopathy, acute M54.16 ; Muscle spasm of back M62.830 and Right hip pain M25.551 [facility] [address] [place] [id number] [place] [address] 37007- 7414 Jan, Lumbar radiculopathy, acute M54.16 [facility] [address] [place] [id number] [place] [address] 15233- 3092 Jan, [facility] [address] [id number] [place] [address] 09760- 7639 Jan, [facility] [address] [place] [id number] [place] [address] 31031- 2301 Dec, Lumbar radiculopathy, acute M54.16 ; Acute renal insufficiency N28.9 and Muscle spasm of back M62.830 [facility] [address] [place] [id number] [place] [address] 54332- 4262 Dec, [facility] [address] [place] [id number] [place] [address] 72550- 4301 Dec, [facility] [address] [place] [id number] [place] [address] 57671- 2108 Dec, [facility] [id number] [place] [address] 99446 -9109 Dec, Low back pain with sciatica, sciatica laterality unspecified, unspecified back pain laterality, unspecified chronicity M54.40 and Acute right-sided low back pain with right-sided sciatica M54.41 [facility] [address] [place] [id number] [place] [address] 93801- 4585 Dec, Posttraumatic stress disorder F43.10 [facility] [address] [place] [id number] [place] [address] 47026- 1965 Dec, [facility] [address] [place] [id number] [place] [address] 97542- 2417 Dec, Pain in right thigh M79.651 and Acute right-sided low back pain without sciatica M54.5 [facility] [address] [address]- 2833 10 Dec, 2016 Posttraumatic stress disorder F43.10 and Major depressive disorder, recurrent episode with anxious distress F33.9 [facility] [address] [address] 08 Dec, 2016 [facility] [address] [place] [id number] [place] [address] 47978- 9064 Nov, [facility] [address] [place] [id number] [place] [address] 99068- 2660 October, [facility] [address] [place] [id number] [place] [address] 85054- 5231 October, [facility] [address] [place] [id number] [place] [address] 92453- 5458 October, Knee pain, right anterior M25.561 [facility] [address] [place] [id number] [place] [address] 15817- 3498 October, Knee pain, right anterior M25.561 [facility] [address] [id number] [place] [address] 39506- 4015 October, [facility] [address] [place] [id number] [place] [address] 77010- 2562 October, [facility] [address], [place] [address]- 8534 October, [facility] [address], [place] [address]0430 Sep, [facility] [address] [id number] [place] [address] 49836- 6407 Sep, [facility] [address] [id number] [address]- 9769 Sep, Essential hypertension I10 [facility] [address] [place] [id number] [place] [address] 27018- 0306 Sep, Essential hypertension I10 [place] [id number] [place] [id number] [place] [address] 60118- 5604 Sep, [facility] [address] [place] [id number] [place] [address] 86172- 6441 Sep, Posttraumatic stress disorder F43.10 and Major depressive disorder, recurrent episode with anxious distress F33.9 [place] [address] [place] [id number] [place] [address] 05580- 1774 Sep, Multiple fractures T14.8 ; Alkaline phosphatase elevation R74.8 and Vitamin D deficiency E55.9 [place] [address] [place] [id number] [place] [address] 72058- 7074 Sep, [place] [address] [place] [id number] [place] [address] 92257- 3267 Sep, Elevated serum creatinine R79.89 ; Fracture of foot, left, closed, initial encounter S92.902A and Alkaline phosphatase elevation R74.8 [place] [address] [place] [id number] [place] [address] 71365- 7819 Sep, Elevated serum creatinine R79.89 and Essential hypertension I10 [place] [address] [place] [id number] [place] [address] 64863- 8152 Sep, [place] [address] [place] [id number] [place] [address] 28177- 1963 Aug, Gastroesophageal reflux disease, esophagitis presence not specified K21.9 [place] [address] [place] [id number] [place] [address] 17248- 8913 Aug, Essential hypertension I10 ; Fracture of foot, left, closed , initial encounter S92.902A and Alkaline phosphatase elevation R74.8 [place] [address] [place] [id number] [place] [address] 20172- 1330 Jul, Genital herpes simplex, unspecified site A60.00 [place] [address] [place] [id number] [place] [address] 87564- 5611 Jul, Essential hypertension I10 [facility] [address], [place] [address]- 4291 Jun, Cough R05 and Wheezing R06.2 [place] [address] [place] [id number] [place] [address] 38282- 7730 Jun, Essential hypertension I10 [place] [id number] [place] [address] 70737- 1085 May, Essential hypertension I10 [place] [address] [place] [id number] [place] [address] 96822- 7977 May, Posttraumatic stress disorder F43.10 and Major depressive disorder, recurrent episode with anxious distress F33.9 [place] [address] [place] [id number] [place] [address] 29295- 6915 Apr, [place] [address] [place] [id number] [place] [address] 41305- 4545 Apr, [place] [address] [place] [id number] [place] [address] 12931- 0425 Apr, [facility] [address] [place] [id number] [place] [address] 19211- 2289 Mar, [place] [address] [place] [id number] [place] [address] 28329- 6854 Feb, [place] [address] [place] [address] 89853- 1619 Jan, [place] [address] [place] [id number] [place] [address] 85865- 5868 Jan, Essential hypertension I10 ; Mixed hyperlipidemia E78.2 ; Gastroesophageal reflux disease, esophagitis presence not specified K21.9 ; Mild intermittent asthma without complication J45.20 ; Hidradenitis suppurativa L73.2 ; Migraine without status migrainosus, not intractable, unspecified migraine type G43.909 ; Genital herpes simplex, unspecified site A60.00 and Closed traumatic minimally displaced fracture of metatarsal bone of left foot S92.302A [facility] [address], [place] [address] -[address] Jan, Localized edema R60.0 [facility] [address] [id number] [place] [address] 33227- 1084 Dec, [facility] [address] [id number] [place] [address] 80499- 1337 Dec, [facility] [address] [id number] [place] [address] 52991- 4126 Dec, [facility] [address] [id number] [place] [address] 90265 -4660 Dec, Cough R05 ; Tobacco dependence F17.200 and Costochondritis , acute M94.0 [facility] [address] [place] [id number] [place] [address] 86917- 3504 Dec, Major depression, recurrent F33.9 ; Bipolar disorder, unspecified F31.9 and Posttraumatic stress disorder F43.10 [facility] [id number] [place] [address] 30282- 1939 Nov, [facility] [address] [place] [id number] [place] [address] 14955- 6700 Nov, [facility] [id number] [place] [address] 69832- 9561 October, [facility] [address], [place] [address] -[address]2 October, Acute upper respiratory infection, unspecified J06.9 [facility] [address], [place] [address]- 3588 October, [facility] [address] [id number] [place] [address] 56151- 8070 Sep, Bipolar affective disorder, remission status unspecified F31.9 and Post-traumatic stress disorder F43.10 [facility] [address], [place] [address]- 3812 Sep, Bipolar disorder, unspecified F31.9 ; Posttraumatic stress disorder F43.10 and Major depression, recurrent F33.9 [place] [address] [place] [id number] [place] [address] 92692- 7615 16 Aug, 2015 Edema R60.9 ; Fatigue R53.83 and Polydipsia R63.1 [place] [address] [place] [id number] [place] [address] 12654- 0797 Aug, [facility] [id number] [place] [address] 03264- 8880 Aug, [facility] [address] [id number] [place] [address] 19003- 4356 Jul, [place] [address] [id number] [place] [address] 46801- 3815 Jul, [place] [address] [id number] [place] [address] 51430- 0920 Jun, [place] [address] [id number] [place] [address] 57848- 4348 Jun, [place] [address] [id number] [place] [address] 45669- 9417 Jun, [place] [address] [id number] [place] [address] 65484- 9014 Jun, [place] [address] [place] [address] 28638- 1693 May, Mixed hyperlipidemia E78.2 [place] [address] [id number] [address]- 6888 23 May, 2015 Well woman exam Z01.419 ; History of herpes simplex infection Z86.19 ; Papanicolaou smear Z12.4 ; History of depression Z86.59 ; History of anxiety Z86.59 ; Lipoma of other specified sites D17.79 ; Hidradenitis suppurativa L73.2 ; Routine screening for STI (sexually transmitted infection) Z11.3 and Tobacco use Z72.0 [place] [address] [id number] [place] [address] 99086- 4214 May, Hematuria R31.9 ; Essential hypertension I10 ; Pure hypercholesterolemia E78.0 and Hidradenitis L73.2 [place] [address] [id number] [place] [address] 10963- 5047 May, Upper respiratory symptom R09.89 and Allergic rhinitis J30.9 [place] [address] [id number] [place] [address] 48969- 9803 May, [facility] [id number] [place] [address] 87165- 3007 May, [place] [address] [id number] [place] [address] 01671- 2015 May, Bipolar disorder, unspecified F31.9 ; Posttraumatic stress disorder F43.10 and Major depression, recurrent F33.9 [place] [id number] [place] [address] 95803- 5191 May, [facility] [id number] [place] [address] 31095- 9381 May, [place] [address] [id number] [place] [address] 94126- 9549 Apr, [facility] [id number] [place] [address] 65497- 6643 Apr, [facility] [id number] [place] [address] 67086- 0237 Mar, [facility] [id number] [place] [address] 69133- 7995 Mar, [facility] [id number] [place] [address] 60728- 8109 Mar, [facility] [id number] [place] [address] 98077- 2204 18 Feb, 2015 Major depressive disorder, recurrent episode, moderate 296.32 and Post traumatic stress disorder (PTSD) 309.81 [facility] [id number] [address]- 3180 10 Feb, 2015 [facility] [address], [place] [address]- 8717 Feb, [facility] [address], [place] [address]- 7489 Jan, Cough 786.2 [facility] [id number] [place] [address] 10320- 5881 Jan, Depression, major, recurrent, moderate 296.32 and Post traumatic stress disorder (PTSD) 309.81 [facility] [id number] [place] [address] 33306- 8049 Jan, [facility] [id number] [place] [address] 55391- 7595 Dec, [facility] [id number] [place] [address] 28659- 7706 Dec, Generalized anxiety disorder 300.02 and Depression, major, recurrent, moderate 296.32 [facility] [address], [place] [address]- 5892 Dec, [facility] [id number] [place] [address] 82791- 9963 Dec, High risk medication use V58.69 [facility] [address], [place] [address]- 4498 Dec, High risk medication use V58.69 [facility] [address], [place] [address]- 2875 Dec, [facility] [address], [place] [address]- 8464 Nov, Generalized anxiety disorder 300.02 and Major depressive disorder, recurrent episode, moderate 296.32 [facility] [address] [id number] Nov, Dental examination V72.2 [facility] [id number] [address] 17 Nov, 2014 Dental examination V72.2 [facility] [address] [id number] [address] 2546 15 Nov, 2014 [facility] [address] [id number] Nov, Dental examination V72.2 [facility] [address] [id number] Nov, Dental examination V72.2 [facility] [id number] [place] [address] October, Major depressive disorder, recurrent episode, moderate 296.32 and Generalized anxiety disorder 300.02 [facility] [id number] [address] October, [facility] [id number] [address] October, [facility] [id number], [place] [address] October, [facility] [id number], [place] [address] 14 Sep, 2014 [facility] [id number], [place] [address] Sep, [facility] [id number], [place] [address] 17 Aug, 2014 [facility] [address] [facility] [id number] [address] 17 Aug, 2014 [facility] [address] [id number], [place] [address] Aug, [facility] [address] [facility] [id number], [place] [address] Aug, [facility] [id number], [place] [address] Aug, [facility] [place] [facility] [address] [id number] [place] [address] Aug, [facility] [place] [facility] [address] [id number] [place] [address] Aug, [facility] [place] [facility] [address] [id number] [place] [address] Jul, 2014 [facility] [place] [facility] [address] [id number] [place] [address] Jul, 2014 [facility] [place] [facility] [address] [id number] [place] [address] Jul, 2014 [facility] [place] [facility] [address] [id number] [place] [address] Jul, 2014 [facility] [place] [facility] [address] [id number] [place] [address] Jul, 2014 [facility] [place] [facility] [address] [id number] [place] [address] Jul, 2014 [facility] [place] [facility] [address] [id number] [place] [address] 2029 Jul, 2014 [facility] [place] [facility] [address] [id number] [place] [address] 2345 Jul, [facility] [place] [facility] [address] [id number] [place] [address]- 2477 Jul, [facility] [place] [facility] [address] [id number] [place] [address]- 9501 Jun, [facility] [place] [facility] [address] [id number] [place] [address]- 9094 Jun, [facility] [place] [facility] [address] [id number] [place] [address]- 6159 Jun, [facility] [place] [facility] [address] [id number] [place] [address]- 5099 Jun, [facility] [place] [facility] [address] [id number] [place] [address]- 6808 Jun, [facility] [place] [facility] [address] [id number] [place] [address]- 8592 Jun, [facility] [place] [facility] [address] [id number] [place] [address]- 1794 Jun, [facility] [place] [facility] [address] [id number] [place] [address]- 2202 Jun, [facility] [place] [facility] [address] [id number] [place] [address]- 1150 Jun, [facility] [place] [facility] [address] [id number] [place] [address]- 1114 Jun, [facility] [place] [facility] [address] [id number] [place] [address]- 8566 Jun, [facility] [place] [facility] [address] [id number] [place] [address]- 7435 Jun, [facility] [place] [facility] [address] [id number] [place] [address]- 2891 Jun, [facility] [place] [facility] [address] [id number] [place] [address]- 2317 Jun, [facility] [place] [facility] [address] [id number] [place] [address]- 7168 Jun, [facility] [place] [facility] [address] [id number] [place] [address]- 7220 Jun, [facility] [place] [facility] [address] [id number] [place] [address]- 8241 Jun, [facility] [place] [facility] [address] [id number] [place] [address]- 6507 Jun, [facility] [place] [facility] [address] [id number] [place] [address]- 9401 Jun, [facility] [place] [facility] [address] [id number] [place] [address]- 0544 Jun, [facility] [place] [facility] [address] [id number] [place] [address]- 3839 Jun, [facility] [place] [facility] [address] [id number] [place] [address]- 7726 Jun, [facility] [place] [facility] [address] [id number] [place] [address]- 8691 Jun, [facility] [place] [facility] [address] [id number] [place] [address]- 9502 Jun, [facility] [place] [facility] [address] [id number] [place] [address]- 5098 Jun, [facility] [place] [facility] [address] [id number] [place] [address]- 4193 May, [facility] [place] [facility] [address] [id number] [place] [address]- 6489 May, [facility] [place] [facility] [address] [id number] [place] [address]- 8894 May, [facility] [place] [facility] [address] [id number] [place] [address]- 2853 May, [facility] [place] [facility] [address] [id number] [place] [address]- 1437 May, [facility] [place] [facility] [address] [id number] [place] [address]- 0406 May, [facility] [place] [facility] [address] [id number] [place] [address]- 0386 May, [facility] [place] [facility] [address] [id number] [place] [address]- 5772 May, [facility] [place] [facility] [address] [id number] [place] [address]- 8541 May, [facility] [place] [facility] [address] [id number] [place] [address]- 8383 May, [facility] [place] [facility] [address] [id number] [place] [address]- 6402 May, [facility] [place] [facility] [address] [id number] [place] [address]- 8096 May, [facility] [place] [facility] [address] [id number] [place] [address]- 9193 May, [facility] [place] [facility] [address] [facility] [id number] [place] [address]- 4046 May, [facility] [place] [facility] [address] [id number] [place] [address]- 3646 May, [facility] [place] [facility] [address] [id number] [place] [address]- 3430 May, [facility] [place] [facility] [address] [id number] [place] [address]- 7960 May, [facility] [place] [facility] [address] [id number] [place] [address]- 5832 May, [facility] [place] [facility] [address] [id number] [place] [address]- 3967 Apr, [facility] [place] [facility] [address] [id number] [place] [address]- 7078 Apr, [facility] [place] [facility] [address] [id number] [place] [address]- 5511 Apr, [facility] [place] [facility] [address] [id number], [place] [address]- 6326 Apr, [facility] [place] [facility] [address] [id number], [place] [address]- 7492 Apr, [facility] [place] [facility] [address] [id number] [place] [address]- 5961 Apr, [facility] [place] [facility] [address] [id number] [place] [address]- 0418 Apr, [facility] [place] [facility] [address] [id number], [place] [address]- 0889 Apr, [facility] [place] [facility] [address] [id number] [place] [address]- 4472 Mar, [facility] [place] [facility] [address] [id number] [place] [address]- 2935 Mar, [facility] [place] [facility] [address] [id number] [place] [address]- 1413 Feb, [facility] [place] [facility] [address] [id number] [place] [address]- 3253 Feb, 2013 [facility] [place] [facility] [address] [id number] [place] [address]- 2542 Feb, [facility] [place] [facility] [address] [id number] [place] [address]- 5596 Feb, [facility] [place] [facility] [address] [id number] [place] [address]- 5798 Feb, [facility] [place] [facility] [address] [id number] [place] [address]- 8540 Feb, [facility] [place] [facility] [address] [id number] [place] [address]- 3297 Feb, [facility] [place] [facility] [address] [id number] [place] [address]- 7292 Feb, [facility] [place] [facility] [address] [id number] [place] [address]- 2423 Feb, [facility] [place] [facility] [address] [id number] [place] [address]- 2542 Feb, [facility] [place] [facility] [address] [id number] [place] [address]- 0072 Jan, [facility] [place] [facility] [address] [id number] [place] [address]- 9266 Jan, [facility] [place] [facility] [address] [id number] [place] [address]- 3656 Jan, [facility] [place] [facility] [address] [id number] [place] [address]- 0363 Jan, [facility] [place] [facility] [address] [id number] [place] [address]- 2564 Jan, [facility] [place] [facility] [address] [id number] [place] [address]- 7021 Jan, [facility] [place] [facility] [address] [id number] [place] [address]- 2457 Jan, [facility] [place] [facility] [address] [id number] [place] [address]- 6699 Jan, [facility] [place] [facility] [address] [id number] [place] [address]- 3169 Jan, [facility] [place] [facility] [address] [id number] [place] [address]- 8931 Jan, [facility] [place] [facility] [address] [id number] [place] [address]- 4877 Jan, [facility] [place] [facility] [address] [id number] [place] [address]- 5261 Jan, [facility] [place] [facility] [address] [id number] [place] [address]- 2549 Jan, [facility] [place] [facility] [address] [id number] [place] [address]- 6332 Dec, [facility] [place] [facility] [address] [id number] [place] [address]- 4685 Dec, [facility] [place] [facility] [address] [id number] [place] [address]- 4054 Dec, [facility] [place] [facility] [address] [id number] [place] [address]- 9492 Dec, [facility] [place] [facility] [address] [id number] [place] [address]- 2656 Dec, [facility] [place] [facility] [address] [id number] [place] [address]- 4973 Dec, [facility] [place] [facility] [address] [id number] [place] [address]- 1691 Dec, [facility] [place] [facility] [address] [id number] [place] [address]- 0378 Dec, [facility] [place] [facility] [address] [id number] [place] [address]- 3628 Dec, [facility] [place] [facility] [address] [id number] [place] [address]- 2075 Dec, [facility] [place] [facility] [address] [id number] [place] [address]- 5111 Dec, [facility] [place] [facility] [address] [id number] [place] [address]- 7630 Dec, [facility] [place] [facility] [address] [id number] [place] [address]- 5022 Dec, [facility] [place] [facility] [address] [id number] [place] [address]- 1445 Dec, [facility] [place] [facility] [address] [id number] [place] [address]- 5196 Nov, [facility] [place] [facility] [address] [id number] [place] [address]- 7284 Nov, [facility] [place] [facility] [address] [id number] [place] [address]- 3777 Nov, [facility] [place] [facility] [address] [id number] [place] [address]- 6768 Nov, [facility] [place] [facility] [address] [id number] [place] [address]- 8623 Nov, [facility] [place] [facility] [address] [id number] [place] [address]- 7047 Nov, [facility] [place] [facility] [address] [id number] [place] [address]- 2983 Nov, [facility] [place] [facility] [address] [id number] [place] [address]- 2955 Nov, [facility] [place] [facility] [address] [id number] [place] [address]- 7291 October, [facility] [address] [id number] [place] [address]- 3263 October, [facility] [place] [facility] [address] [id number] [place] [address]- 9216 October, [facility] [place] [facility] [address] [id number] [place] [address]- 9693 October, [facility] [place] [facility] [address] [id number] [place] [address]- 7483 October, [facility] [place] [facility] [address] [id number] [place] [address]- 4333 October, [facility] [place] [facility] [address] [id number] [place] [address]- 7787 October, [facility] [place] [facility] [address] [id number] [place] [address]- 4406 October, [facility] [address] [id number] [place] [address]- 9616 October, [facility] [place] [facility] [address] [id number] [place] [address]- 4420 October, [facility] [place] [facility] [address] [id number] [place] [address]- 5205 October, [facility] [place] [facility] [address] [id number] [place] [address]- 5979 October, [facility] [place] [facility] [address] [id number] [place] [address]- 8999 October, [facility] [place] [facility] [address] [id number] [place] [address]- 1418 October, [facility] [place] [facility] [address] [id number] [place] [address]- 1896 October, [facility] [place] [facility] [address] [id number] [place] [address]- 9340 October, [facility] [address] [id number] [place] [address]- 0383 Sep, [facility] [place] [facility] [address] [id number] [place] [address]- 3960 Sep, [facility] [place] [facility] [address] [id number] [place] [address]- 8336 Sep, [facility] [place] [facility] [address] [id number] [place] [address]- 2488 Sep, [facility] [place] [facility] [address] [id number] [place] [address]- 4529 Sep, [facility] [place] [facility] [address] [id number] [place] [address]- 2318 Sep, [facility] [place] [facility] [address] [id number] [place] [address]- 9392 Sep, [facility] [place] [facility] [address] [id number] [place] [address]- 6859 Sep, [facility] [place] [facility] [address] [id number] [place] [address]- 2791 Sep, [facility] [place] [facility] [address] [id number] [place] [address]- 6733 Sep, [facility] [place] [facility] [address] [id number] [place] [address]- 4399 Sep, [facility] [place] [facility] [address] [id number] [place] [address]- 4338 Sep, [facility] [place] [facility] [address] [id number] [place] [address]- 3855 Sep, [facility] [place] [facility] [address] [id number] [place] [address]- 3226 Sep, [facility] [place] [facility] [address] [id number] [place] [address]- 2129 Sep, [facility] [place] [facility] [address] [id number] [place] [address]- 1807 Sep, [facility] [place] [facility] [address] [id number] [place] [address]- 7826 Sep, [facility] [place] [facility] [address] [id number] [place] [address]654 Sep, [facility] [place] [facility] [address] [facility] [id number] [place] [address]- 6753 Sep, [facility] [place] [facility] [address] [id number] [place] [address]- 7988 Aug, [facility] [place] [facility] [address] [id number] [place] [address]- 5006 Aug, [facility] [place] [facility] [address] [facility] [id number] [place] [address]- 9767 Aug, [facility] [place] [facility] [address] [facility] [id number] [place] [address]- 6053 Aug, [facility] [place] [facility] [address] [facility] [id number] [place] [address]- 6511 Jul, [facility] [place] [facility] [address] [facility] [id number] [place] [address]- 1424 Jul, [facility] [place] [facility] [address] [facility] [id number] [place] [address]- 1998 Jul, [facility] [place] [facility] [address] [facility] [id number] [place] [address]- 5913 Jul, [facility] [place] [facility] [address] [facility] [id number] [place] [address]- 3305 Jul, [facility] [place] [facility] [address] [facility] [id number] [place] [address]- 8311 Jul, [facility] [place] [facility] [address] [facility] [id number] [place] [address]- 4636 Jul, [facility] [place] [facility] [address] [facility] [id number] [place] 9119 Jul, [facility] [place] [facility] [address] [id number] [place] [address]- 2271 Jul, [facility] [place] [facility] [address] [id number] [place] [address]- 5067 Jul, [facility] [place] [facility] [address] [id number] [place] [address]- 2605 Jul, [facility] [place] [facility] [address] [id number] [place] [address]- 6640 Jul, [facility] [place] [facility] [address] [id number] [place] [address]- 1486 Jun, [facility] [place] [facility] [address] [id number] [place] [address]- 1365 Jun, [facility] [place] [facility] [address] [id number] [place] [address]- 4117 Jun, [facility] [place] [facility] [address] [id number] [place] [address]- 9543 Jun, [facility] [place] [facility] [address] [id number] [place] [address]- 0997 Jun, [facility] [place] [facility] [address] [id number] [place] [address]- 1860 Jun, [facility] [place] [facility] [address] [id number] [place] [address]- 9074 May, [facility] [place] [facility] [address] [id number] [place] [address]- 6016 May, [facility] [place] [facility] [address] [id number] [place] [address]- 3235 Apr, [facility] [place] [facility] [address] [id number] [place] [address]- 1085 Apr, [facility] [place] [facility] [address] [id number] [place] [address]- 5846 Apr, [facility] [place] [facility] [address] [id number] [place] [address]- 5799 19 Apr, 2013 [facility] [address] [id number] [place] [address]- 0644 18 Apr, 2013 [facility] [place] [facility] [address] [id number] [place] [address]- 1280 18 Apr, 2013 [facility] [address] [id number] [place] [address]- 0572 17 Apr, 2013 [facility] [place] [facility] [address] [id number] [place] [address]- 0748 15 Apr, 2013 [facility] [address] [id number] [place] [address]- 5344 15 Apr, 2013 [facility] [place] [facility] [address] [id number] [place] [address]- 5304 15 Apr, 2013 [facility] [address] [id number] [place] [address]- 0668 15 Apr, 2013 [facility] [address] [id number] [place] [address]- 7471 13 Apr, 2013 [facility] [place] [facility] [address] [id number] [place] [address]- 3960 Apr, [facility] [address] [id number] [place] [address]- 1052 31 Mar, 2013 [facility] [place] [facility] [address] [id number] [place] [address]- 6249 31 Mar, 2013 [facility] [place] [facility] [address] [id number], [place] [address]- 6291 25 Mar, 2013 [facility] [place] [facility] [address] [id number] [place] [address]- 1576 25 Mar, 2013 [facility] [place] [facility] [address] [id number] [place] [address]- 9354 17 Mar, 2013 [facility] [place] [facility] [address] [id number] [place] [address]- 0045 17 Mar, 2013 [facility] [place] [facility] [address] [id number] [place] [address]- 8277 14 Mar, 2013 [facility] [place] [facility] [address] [id number] [place] [address]- 8476 14 Mar, 2013 [facility] [place] [facility] [address] [id number] [place] [address]- 5106 11 Mar, 2013 [facility] [place] [facility] [address] [id number] [place] [address]- 6188 11 Mar, 2013 [facility] [place] [facility] [address] [id number] [place] [address]- 5296 02 Mar, 2013 [facility] [place] [facility] [address] [id number] [place] [address]- 8394 30 Feb, 2013 [facility] [place] [facility] [address] [id number] [place] [address]- 6323 28 Feb, 2013 [facility] [place] [facility] [address] [id number] [place] [address] 27 Feb, 2013 [facility] [place] [facility] [address] [id number] [place] [address] 27 Feb, 2013 [facility] [place] [facility] [address] [id number] [place] [address] 20 Feb, 2013 [facility] [place] [facility] [address] [id number] [place] [address] 10 Feb, 2013 [facility] [place] [facility] [address] [id number], [place] [address] Jan, [facility] [place] [facility] [address] [id number] [place] [address] Jan, [facility] [place] [facility] [address] [id number] [place] [address] Dec, [facility] [place] [facility] [address] [id number] [place] [address] Dec, [facility] [place] [facility] [address] [id number] [place] [address] 15 Dec, 2012 [facility] [address] [id number] [place] [address] Dec, [facility] [address] [id number] [place] [address] Nov, [facility] [address] [id number] [place] [address] Nov, [facility] [place] [facility] [address] [id number] [place] [address]- [address] Nov, [facility] [address] [id number] [place] [address] October, [facility] [address] [id number] [place] [address] 1466 October, [facility] [address] [id number] [place] [address]- [address]479 October, [facility] [address] [id number] [place] [address] 9864 October, [facility] [address] [id number] [place] [address]- 69[address] October, [facility] [address] [id number] [place] [address]- 99[address] Sep, [facility] [address] [id number] [place] [address]- [address] Sep, [facility] [place] [facility] [address] [id number] [place] [address] Aug, [facility] [place] [facility] [address] [id number] [place] [address]- [address]201 15 Aug, 2012 [facility] [place] [facility] [address] [id number] [place] [address] Aug, [facility] [place] [facility] [address] [id number] [place] [address]- 9763 08 Aug, 2012 [facility] [place] [facility] [address] [id number] [place] [address]307 Aug, [facility] [address] [id number] [place] [address] 9666 18 Jul, 2012 [facility] [place] [facility] [address] [id number] [place] [address] 5966 Jul, [facility] [place] [facility] [address] [id number] [place] [address] 48[address] Jul, [facility] [place] [facility] [address] [id number] [place] [address] Jul, [facility] [place] [facility] [address] [id number] [place] [address] Jun, [facility] [address] [id number] [place] [address] 9671 Jun, [facility] [address] [id number] [place] [address]474 Jun, [facility] [address] [id number] [place] [address] 2314 Jun, [facility] [place] [facility] [address] [id number] [place] [address] Jun, [facility] [place] [facility] [address] [id number] [place] [address] 67[address] Jun, [facility] [place] [facility] [address] [id number] [place] [address]- 0266 Jun, [facility] [place] [facility] [address] [id number] [place] [address] 1371 Jun, [facility] [place] [facility] [address] [id number] [place] [address]- 1677 Jun, [facility] [place] [facility] [address] [id number] [place] [address] 1539 Jun, [facility] [place] [facility] [address] [id number] [place] [address] Jun, [facility] [place] [facility] [address] [id number] [place] [address] 8429 May, [facility] [place] [facility] [address] [id number] [place] [address]- 2656 May, [facility] [place] [facility] [address] [facility] [id number] [place] [address] 2401 Apr, [facility] [place] [facility] [address] [id number] [place] [address]- 1387 Apr, [facility] [place] [facility] [address] [id number] [place] [address] 3350 Mar, [facility] [place] [facility] [address] [id number] [place] [address]- 5008 Mar, [facility] [place] [facility] [address] [id number] [place] [address]- 3275 Mar, [facility] [place] [facility] [address] [id number] [place] [address]- 8666 30 Mar, 2012 [facility] [place] [facility] [address] [id number] [place] [address]- 5717 Mar, [facility] [place] [facility] [address] [id number] [place] [address] Mar, [facility] [place] [facility] [address] [id number], [place] [address] 16 Mar, 2012 [facility] [place] [facility] [address] [id number], [place] [address]- [address] Mar, [facility] [place] [facility] [address] [id number] [place] [address] 5729 Mar, [facility] [place] [facility] [address] [facility] [id number], [place] [address] 1136 Feb, [facility] [place] [facility] [address] [facility] [id number], [place] [address]46 Jan, [facility] [place] [facility] [address] [id number] [place] [address] 6553 Jan, [facility] [address] [id number] [place] [address] 4389 Dec, [facility] [place] [facility] [address] [id number] [place] [address]- 4526 Dec, [facility] [address] [id number] [place] [address]- 6152 Dec, [facility] [address] [id number] [place] [address]- 8077 Nov, [facility] [address] [id number] [place] [address]- 5205 Nov, [facility] [address] [id number] [place] [address]- 6642 Nov, [facility] [address] [id number] [place] [address]- 0831 Nov, [facility] [address] [id number] [place] [address]- 8465 October, [facility] [place] [facility] [address] [id number] [place] [address]- 3992 October, [facility] [address] [id number] [place] [address]- 3717 Sep, [facility] [place] [facility] [address] [id number] [place] [address]- 4779 Sep, [facility] [place] [facility] [address] [id number] [place] [address]- 3020 Aug, [facility] [place] [facility] [address] [id number] [place] [address]- 0885 Jul, [facility] [place] [facility] [address] [id number] [place] [address]- 2546 Jul, [facility] [place] [facility] [address] [id number] [place] [address] Jul, [facility] [place] [facility] [address] [id number] [place] [address] Jul, [facility] [place] [facility] [address] [id number] [place] [address] Jun, [facility] [place] [facility] [address] [id number] [place] [address] 15 May, 2011 [facility] [place] [facility] [address] [id number] [place] [address] 15 May, 2011 [facility] [place] [facility] [address] [id number] [place] [address] 15 May, 2011 [facility] [place] [facility] [address] [id number] [place] [address] May, [facility] [place] [facility] [address] [id number] [place] [address] 08 May, 2011 [facility] [place] [facility] [address] [id number], [place] [address] 14 Apr, 2011 [facility] [place] [facility] [address] [id number] [place] [address] 14 Apr, 2011 [facility] [place] [facility] [address] [id number], [place] [address] 14 Apr, 2011 [facility] [place] [facility] [address] [id number], [place] [address] Apr, [facility] [place] [facility] [address] [id number], [place] [address] 02 Apr, 2011 [facility] [place] [facility] [address] [id number] [place] [address] Mar, [facility] [place] [facility] [address] [id number], [place] [address] 25 Mar, 2011 [facility] [place] [facility] [address] [id number], [place] [address] 14 Mar, 2011 [facility] [place] [facility] [id number], [place] [address] 14 Mar, 2011 [facility] [id number], [place] [address] 13 Mar, 2011 [facility] [id number], [place] [address] 11 Mar, 2011 [facility] [id number], [place] [address] Mar, [facility] [id number], [place] [address] Mar, [facility] [id number] [place] [address] [id number] 14 Feb, 2011 [facility] [id number] [address] May, [facility] [id number] [place] [address]- [address] May, [facility] [id number], [place] [address] May, [facility] [id number], [place] [address] Apr, [facility] [id number], [place] [address] Mar, IMMUNIZATIONS No Known Immunizations SOCIAL HISTORY Never Assessed REASON FOR VISIT Medication refill request PLAN OF CARE VITAL SIGNS MEDICATIONS Medication Instructions Dosage Frequency Start Date End Date Duration Status Alprazolam 0.25 MG Orally daily 3 tablet 24h Nov, 30 days Active Alprazolam [...] still has ovaries 2004 Surgical History cholecystectomy 1998 Surgical History Right breast duct clearing 2011 Hospitalization History surgeries Hospitalization History pneumonia Hospitalization History inpatient treatment, [facility] P[facility], dx bipolar mood disorder type I 2000 Hospitalization History inpatient [facility], [facility] 2007
--- OUTSIDE RECORDS SUMMARY | 2018-08-19 09:24 | XMS REPORT ---
Author Author CURTIS GLENN Organization [facility], [place] Address [address] [place] [address] Care Team Providers Care Leather Dresser Name Role Phone HARSHSALVADOR GLENN Unavailable PROBLEMS Type Condition ICD9-CM Code BPW69-KS Code Onset Dates Condition Status SNOMED Code Problem Mixed hyperlipidemia E78.2 Active 803626736 Problem Vitamin D deficiency E55.9 Active 88172334 Problem Essential hypertension I10 Active 64871622 Problem Mild intermittent asthma without complication J45.20 Active 696844085 Problem Generalized anxiety disorder F41.1 Active 69059318 Problem Gastroesophageal reflux disease, esophagitis presence not specified K21.9 Active 355352940 Problem Bipolar disorder, current episode mixed, moderate F31.62 Active 824103958 Problem Bipolar disorder F31.9 Active 79747412 Problem Panic disorder F41.0 Active 734517460 Problem Low back pain with sciatica, sciatica laterality unspecified, unspecified back pain laterality, unspecified chronicity M54.40 Active 322782151 Problem Acute right-sided low back pain with right-sided sciatica M54.41 Active 63887333 Problem Excessive thirst R63.1 Active 53915657 Problem Concussion without loss of consciousness, initial encounter S06.0X0A Active 50619222 Problem Primary insomnia F51.01 Active 032415287 Problem Anxiety F41.9 Active 25337114 Problem Hematuria R31.9 Active 95090767 Problem Hot flashes R23.2 Active 688929241 Problem Multiple fractures T07.XXXA Active 236281855 Problem Nausea R11.0 Active 447683402 Problem Hospital discharge follow-up Z09 Active 779534338 Problem Breast tenderness N64.4 Active 36924043 Problem Depression F32.9 Active 28290697 Problem Hidradenitis suppurativa L73.2 Active 67704785 Problem History of IBS Z87.19 Active [id number] Problem Localized edema R60.0 Active 569138077 Problem Posttraumatic stress disorder F43.10 Active 69632234 Problem Genital herpes simplex, unspecified site A60.00 Active 39342965 Problem Tobacco use Z72.0 Active 309172642 ALLERGIES No Information ENCOUNTERS Encounter Location Date Diagnosis [place] [id number] [place] [address] 23965- 9590 Jan, Genital herpes simplex, unspecified site A60.00 [place] [id number] [place] [address] 30641- 4412 Jan, Panic disorder F41.0 [place] [id number] [place] [address] 44804- 7669 Dec, Diaphoresis R61 and Excessive thirst R63.1 [place] [id number] [place] [address] 68936- 4113 Dec, Panic disorder F41.0 ; Bipolar disorder, current episode mixed, moderate F31.62 and Generalized anxiety disorder F41.1 [place] [id number] [place] [address] 47122- 4432 Dec, Panic disorder F41.0 [place] [id number] [place] [address] 63755- 1608 Nov, Panic disorder F41.0 [place] [id number] [place] [address] 88478- 0073 Nov, Panic disorder F41.0 ; Generalized anxiety disorder F41.1 and Bipolar disorder, current episode mixed, moderate F31.62 [place] [id number] [place] [address] 94565- 5617 Nov, Panic disorder F41.0 [place] [id number] [place] [address] 38673- 2187 Nov, Panic disorder F41.0 [place] [id number] [place] [address] 24522- 6344 October, Panic disorder F41.0 [place] [id number] [place] [address] 65192- 9743 October, Panic disorder F41.0 ; Generalized anxiety disorder F41.1 and Bipolar disorder, current episode mixed, moderate F31.62 [place] [id number] [place] [address] 95954- 0824 October, Panic disorder F41.0 [place] [id number] [place] [address] 14740- 1425 Sep, Hospital discharge follow-up Z09 ; Concussion without loss of consciousness, initial encounter S06.0X0A and Nausea R11.0 [place] [id number] [place] [address] 61002- 6749 Sep, [place] [id number] [place] [address] 11594- 3067 Sep, Panic disorder F41.0 [place] [id number] [place] [address] 53248- 0656 Sep, [place] [id number] [place] [address] 57173- 8816 Sep, Well woman exam with routine gynecological exam Z01.419 ; Multiple fractures T07.XXXA ; Hot flashes R23.2 ; Essential hypertension I10 ; Mixed hyperlipidemia E78.2 ; Genital herpes simplex, unspecified site A60.00 ; Alkaline phosphatase elevation R74.8 ; Dysuria R30.0 ; Vitamin D deficiency E55.9 ; Tobacco use Z72.0 ; High risk sexual behavior Z72.51 and Encounter for immunization Z23 [place] [address] [place] [address] 49822- 6694 Aug, Panic disorder F41.0 ; Generalized anxiety disorder F41.1 and Bipolar disorder, current episode mixed, moderate F31.62 [place] [address] [place] [address] 62870- 0760 Aug, [place] [id number] [place] [address] 01192- 8877 Jul, Panic disorder F41.0 ; Generalized anxiety disorder F41.1 and Bipolar disorder, current episode mixed, moderate F31.62 [facility] [place] [address] [address] 7579 Jul, [facility], [place] [address] [place] [address]- 8990 Jul, [facility] [place] [address] [place] [address] 89704- 8182 Jul, Effusion, right knee M25.461 ; Acute pain of right knee M25.561 and Acute pain of left knee M25.562 [facility] [place] [address] [place] [address] 07627- 3950 Jun, Bipolar disorder, current episode mixed, moderate F31.62 ; Generalized anxiety disorder F41.1 and Panic disorder F41.0 [facility] [place] [address] [place] [address] 06314- 1305 May, Bipolar disorder, current episode mixed, moderate F31.62 ; Generalized anxiety disorder F41.1 and Panic disorder F41.0 [facility] [place] [address] [place] [address] 92143- 8340 May, Bipolar disorder, current episode mixed, moderate F31.62 [facility] [place] [address] [place] [address] 05512- 6695 May, Bipolar disorder, current episode mixed, moderate F31.62 [facility] [place] [address] [place] [address] 05265- 2949 Apr, Bipolar disorder, current episode mixed, moderate F31.62 ; Generalized anxiety disorder F41.1 and Panic disorder F41.0 [facility] [place] [address] [place] [address] 75900- 4244 Mar, [facility] [place] [address] [address]- 1043 Mar, Bipolar disorder, current episode mixed, moderate F31.62 ; Generalized anxiety disorder F41.1 and Panic disorder F41.0 [facility] [place] [id number] [place] [address] 55907- 0215 27 Feb, 2017 [facility] [place] [address] 22762- 9319 22 Feb, 2017 Posttraumatic stress disorder F43.10 [place] [address] 99298- 7689 20 Feb, 2017 Gastroesophageal reflux disease, esophagitis presence not specified K21.9 [facility] [place] [address] 44856- 6271 13 Feb, 2017 [place] [address] 91027- 9283 06 Feb, 2017 Knee pain, right anterior M25.561 [place] [address] 68225- 4737 05 Feb, 2017 HSV (herpes simplex virus) infection B00.9 [facility] [place] [address] 04498- 4957 05 Feb, 2017 [facility] [place] [address] 45699- 5263 Jan, [place] [address] 09021- 8863 Jan, Posttraumatic stress disorder F43.10 [place] [address] 87775- 4055 Jan, Foot pain, left M79.672 [place] [id number] [place] [address] 73155- 0026 Jan, [place] [address] 06240- 2626 Jan, Lumbar radiculopathy, acute M54.16 ; Muscle spasm of back M62.830 and Right hip pain M25.551 [place] [address] 01143- 3005 Jan, Lumbar radiculopathy, acute M54.16 [facility], [place] [id number] [address]- 8482 Jan, [facility] [place] [id number] [place] [address] 18672- 4243 Jan, [facility] [place] [id number] [place] [address] 62786- 5008 Dec, Lumbar radiculopathy, acute M54.16 ; Acute renal insufficiency N28.9 and Muscle spasm of back M62.830 [facility] [place] [id number] [place] [address] 72114- 9645 Dec, [facility] [place] [id number] [place] [address] 90707- 3248 Dec, [facility] [place] [id number] [place] [address] 90459- 3766 Dec, [facility] [id number] [place] [address] 03035 -8474 Dec, Low back pain with sciatica, sciatica laterality unspecified, unspecified back pain laterality, unspecified chronicity M54.40 and Acute right-sided low back pain with right-sided sciatica M54.41 [place] [address] [place] [address] 23775- 5323 Dec, Posttraumatic stress disorder F43.10 [facility] [place] [id number] [place] [address] 10680- 9942 Dec, [facility] [place] [id number] [place] [address] 41484- 7423 Dec, Pain in right thigh M79.651 and Acute right-sided low back pain without sciatica M54.5 [facility] [place] [address] [place] [address] 44337- 9415 Dec, Posttraumatic stress disorder F43.10 and Major depressive disorder, recurrent episode with anxious distress F33.9 [facility] [address] [facility] [id number] [place] [address] Dec, [facility] [place] [address] [facility] [id number] [place] [address]- 4362 Nov, [facility] [place] [address] [facility] [id number] [place] [address]- 7268 October, [facility] [place] [address] [place] [address]- 1072 October, [facility] [place] [address] [facility] [id number] [place] [address]- 8113 October, Knee pain, right anterior M25.561 [facility] [place] [address] [place] [id number] [address]- 5960 October, Knee pain, right anterior M25.561 [facility] [place] [address] [address]- 9990 October, [facility] [place] [address] [facility] [id number] [place] [address]- 9969 October, [facility] [place] [address] [address]- 6301 October, [facility] [address] [place] [id number] [address]0049 Sep, [facility] [place] [address] [place] [address] [id number] [address]- 5697 Sep, [facility] [place] [address] [facility] [id number] [place] [address]- 6590 Sep, Essential hypertension I10 [facility] [place] [address] [place] [id number] [address]- 6228 11 Sep, 2016 Essential hypertension I10 [facility] [place] [address] [place] [address] [id number] [address]- 6100 Sep, [facility] [place] [address] [place] [address] [id number] [address]- 7558 Sep, Posttraumatic stress disorder F43.10 and Major depressive disorder, recurrent episode with anxious distress F33.9 [place] [address] 27827- 4536 Sep, Multiple fractures T14.8 ; Alkaline phosphatase elevation R74.8 and Vitamin D deficiency E55.9 [place] [address] 29772- 5598 Sep, [place] [address] 36703- 6708 Sep, Elevated serum creatinine R79.89 ; Fracture of foot, left, closed, initial encounter S92.902A and Alkaline phosphatase elevation R74.8 [place] [address] 86634- 8122 Sep, Elevated serum creatinine R79.89 and Essential hypertension I10 [place] [address] 64566- 4372 Sep, [place] [address] 72313- 6322 Aug, Gastroesophageal reflux disease, esophagitis presence not specified K21.9 [place] [address] 06150- 8515 Aug, Essential hypertension I10 ; Fracture of foot, left, closed , initial encounter S92.902A and Alkaline phosphatase elevation R74.8 [place] [id number] [place] [address] 26455- 4703 Jul, Genital herpes simplex, unspecified site A60.00 [place] [address] 12255- 3829 Jul, Essential hypertension I10 [address] 08040- 5609 Jun, Cough R05 and Wheezing R06.2 [place] [address] 06782- 5838 Jun, Essential hypertension I10 [facility] [place] [address] [place] [address] 17345- 0905 May, Essential hypertension I10 [facility] [place] [id number] [place] [address] 41297- 0950 May, Posttraumatic stress disorder F43.10 and Major depressive disorder, recurrent episode with anxious distress F33.9 [facility] [place] [id number] [place] [address] 55985- 6941 Apr, [facility] [place] [id number] [place] [address] 38356- 5294 Apr, [facility] [place] [id number] [place] [address] 15127- 8894 Apr, [facility] [place] [id number] [place] [address] 89878- 8330 Mar, [facility] [place] [id number] [place] [address] 02227- 4965 Feb, [facility] [place] [id number] [place] [address] 10897- 3772 Jan, [facility] [place] [id number] [place] [address] 23170- 0374 Jan, Essential hypertension I10 ; Mixed hyperlipidemia E78.2 ; Gastroesophageal reflux disease, esophagitis presence not specified K21.9 ; Mild intermittent asthma without complication J45.20 ; Hidradenitis suppurativa L73.2 ; Migraine without status migrainosus, not intractable, unspecified migraine type G43.909 ; Genital herpes simplex, unspecified site A60.00 and Closed traumatic minimally displaced fracture of metatarsal bone of left foot S92.302A [facility] [id number] [place] [address] 24054 -7239 Jan, Localized edema R60.0 [facility] [place] [address] [place] [address] 49483- 6557 Dec, [facility] [place] [id number] [place] [address] 44483- 5610 Dec, [facility] [place] [id number] [place] [address] 04250- 5877 Dec, [facility] [id number] [place] [address] 67293 -5065 Dec, Cough R05 ; Tobacco dependence F17.200 and Costochondritis , acute M94.0 [facility] [place] [id number] [place] [address] 17717- 0105 Dec, Major depression, recurrent F33.9 ; Bipolar disorder, unspecified F31.9 and Posttraumatic stress disorder F43.10 [place] [id number] [place] [address] 34480- 7778 Nov, [place] [address] 48362- 5122 Nov, [facility] [place] [id number] [place] [address] 03894- 0916 October, [facility] [id number] [place] [address] 07505 -9936 October, Acute upper respiratory infection, unspecified J06.9 [facility] [place] [id number] [place] [address] 07675- 1755 October, [facility] [place] [id number] [place] [address] 83234- 3744 Sep, Bipolar affective disorder, remission status unspecified F31.9 and Post-traumatic stress disorder F43.10 [facility] [place] [id number] [place] [address] 16421- 6789 Sep, Bipolar disorder, unspecified F31.9 ; Posttraumatic stress disorder F43.10 and Major depression, recurrent F33.9 [facility] [place] [id number] [place] [address] 77166- 8230 Aug, Edema R60.9 ; Fatigue R53.83 and Polydipsia R63.1 [facility] [place] [address], [place] [address]- 1356 Aug, [facility] [place] [id number] [place] [address] 34333- 6488 Aug, [facility] [place] [id number] [place] [address] 16544- 8082 Jul, [facility] [place] [address] 81643- 0335 Jul, [facility] [place] [id number] [place] [address] 88180- 4042 Jun, [facility] [place] [id number] [place] [address] 35048- 9252 Jun, [facility] [place] [id number] [place] [address] 46842- 2427 Jun, [facility] [place] [id number] [place] [address] 39986- 2977 Jun, [facility] [place] [id number] [place] [address] 98491- 1864 May, Mixed hyperlipidemia E78.2 [place] [id number] [place] [address] 26716- 8126 May, Well woman exam Z01.419 ; History of herpes simplex infection Z86.19 ; Papanicolaou smear Z12.4 ; History of depression Z86.59 ; History of anxiety Z86.59 ; Lipoma of other specified sites D17.79 ; Hidradenitis suppurativa L73.2 ; Routine screening for STI (sexually transmitted infection) Z11.3 and Tobacco use Z72.0 [place] [id number] [place] [address] 55770- 3558 May, Hematuria R31.9 ; Essential hypertension I10 ; Pure hypercholesterolemia E78.0 and Hidradenitis L73.2 [place] [id number] [place] [address] 57578- 6961 May, Upper respiratory symptom R09.89 and Allergic rhinitis J30.9 [facility] [place] [address] 7499 May, [facility] [place] [id number] [place] [address] 61670- 3664 May, [facility] [place] [id number] [place] [address] 00214- 1166 May, Bipolar disorder, unspecified F31.9 ; Posttraumatic stress disorder F43.10 and Major depression, recurrent F33.9 [facility] [place] [id number] [place] [address] 28090- 1964 May, [facility] [place] [id number] [place] [address] 42298- 5640 May, [facility] [place] [id number] [place] [address] 34740- 3610 Apr, [facility] [place] [id number] [place] [address] 07081- 2354 Apr, [facility] [place] [address] [place] [address] 57666- 2455 Mar, [facility] [place] [address], [place] [address]- 1844 Mar, [facility] [place] [id number] [place] [address] 75762- 9756 Mar, [facility] [place] [id number] [place] [address] 27964- 0004 18 Feb, 2015 Major depressive disorder, recurrent episode, moderate 296.32 and Post traumatic stress disorder (PTSD) 309.81 [facility] [place] [address]- 3552 10 Feb, 2015 [facility] [place] [address], [place] [address]- 3292 08 Feb, 2015 [facility] [place] [id number] [address]- 7555 Jan, Cough 786.2 [facility] [place] [id number] [place] [address] 94440- 8674 Jan, Depression, major, recurrent, moderate 296.32 and Post traumatic stress disorder (PTSD) 309.81 [facility] [place] [address], [place] [address]- 2752 Jan, [facility] [place] [id number] [place] [address] 22643- 4433 Dec, [facility] [place] [id number] [place] [address] 62805- 5069 Dec, Generalized anxiety disorder 300.02 and Depression, major, recurrent, moderate 296.32 [facility] [place] [address] [place] [address] 32739- 7780 Dec, [facility] [place] [id number] [place] [address] 79605- 5464 Dec, High risk medication use V58.69 [facility] [place] [id number] [place] [address] 75835- 8831 Dec, High risk medication use V58.69 [facility] [place] [address], [place] [address]- 0529 Dec, [facility] [place] [id number] [place] [address] 05457- 1362 Nov, Generalized anxiety disorder 300.02 and Major depressive disorder, recurrent episode, moderate 296.32 [facility] [address] [id number] Nov, Dental examination V72.2 [facility] [address] [place] [address] [id number] Nov, Dental examination V72.2 [facility], [place] [id number], [place] [address] Nov, [facility] [id number] [id number] Nov, 2014 Dental examination V72.2 [facility] [id number] [id number] Nov, Dental examination V72.2 [facility], [place] [id number], [place] [address] October, Major depressive disorder, recurrent episode, moderate 296.32 and Generalized anxiety disorder 300.02 [facility], [place] [id number] [address] October, [facility], [place] [id number] [place] [phone] October, [facility], [place] [id number], [place] [address] October, [facility], [place] [id number], [place] [address] Sep, [facility], [place] [id number], [place] [address] Sep, [facility], [place] [id number], [place] [address] Aug, [facility], [place] [id number] [address] 17 Aug, 2014 [facility], [place] [address] [id number] [address] Aug, [facility], [place] [id number], [place] [address] Aug, [facility] [place] [id number], [place] [address] 10 Aug, 2014 [facility] [place] [id number], [place] [address] 2546 Aug, [facility] [place] [address] [id number], [place] [address] Aug, [facility] [place] [facility] [address] [id number] [place] [address] 1369 Jul, 2014 [facility] [place] [facility] [address] [id number] [place] [address]- 5173 Jul, 2014 [facility] [place] [facility] [address] [id number] [place] [address]- 4558 Jul, 2014 [facility] [place] [facility] [address] [id number] [place] [address]- 6247 Jul, 2014 [facility] [place] [facility] [address] [id number] [place] [address]- 8760 Jul, 2014 [facility] [place] [facility] [address] [id number] [place] [address]- 8053 Jul, 2014 [facility] [place] [facility] [address] [id number] [place] [address]- 2760 Jul, 2014 [facility] [place] [facility] [address] [id number] [place] [address]- 3582 Jul, 2014 [facility] [place] [facility] [address] [id number] [place] [address]- 3076 Jul, 2014 [facility] [place] [facility] [address] [facility] [id number] [place] [address]- 7211 Jun, [facility] [place] [facility] [address] [id number] [place] [address]- 5645 Jun, [facility] [place] [facility] [address] [id number], [place] [address] 80[address] Jun, [facility] [place] [facility] [address] [id number] [place] [address]- 5710 Jun, [facility] [place] [facility] [address] [id number] [place] [address]- 3427 Jun, [facility] [place] [facility] [address] [id number] [place] [address]- 1705 Jun, [facility] [place] [facility] [address] [id number] [place] [address]- 2512 Jun, [facility] [place] [facility] [address] [id number] [place] [address]- 3105 Jun, [facility] [place] [facility] [address] [id number] [place] [address]- 9742 Jun, [facility] [place] [facility] [address] [id number] [place] [address]- 8043 Jun, [facility] [place] [facility] [address] [id number] [place] [address]- 1323 Jun, [facility] [place] [facility] [address] [id number] [place] [address]- 9662 Jun, [facility] [place] [facility] [address] [id number] [place] [address]- 8091 Jun, [facility] [place] [facility] [address] [id number] [place] [address]- 7775 Jun, [facility] [place] [facility] [address] [id number] [place] [address]- 1258 Jun, [facility] [place] [facility] [address] [id number] [place] [address]- 4959 Jun, [facility] [place] [facility] [address] [id number] [place] [address]- 5815 Jun, [facility] [place] [facility] [address] [id number] [place] [address]- 1775 Jun, [facility] [place] [facility] [address] [id number] [place] [address]- 3074 Jun, [facility] [place] [facility] [address] [id number] [place] [address]- 1687 Jun, [facility] [place] [facility] [address] [id number] [place] [address]- 0266 Jun, [facility] [place] [facility] [address] [id number] [place] [address]- 0708 Jun, [facility] [place] [facility] [address] [id number] [place] [address]- 7605 Jun, [facility] [place] [facility] [address] [id number] [place] [address]- 0727 Jun, [facility] [place] [facility] [address] [id number] [place] [address]- 4469 Jun, [facility] [place] [facility] [address] [id number] [place] [address]- 5399 May, [facility] [place] [facility] [address] [id number] [place] [address]- 4219 May, [facility] [place] [facility] [address] [id number] [place] [address]- 1012 May, [facility] [place] [facility] [address] [id number] [place] [address]- 9465 May, [facility] [place] [facility] [address] [id number] [place] [address]- 4185 May, [facility] [place] [facility] [address] [id number] [place] [address]- 5561 May, [facility] [place] [facility] [address] [id number] [place] [address]- 2328 May, [facility] [place] [facility] [address] [id number] [place] [address]- 1120 May, [facility] [place] [facility] [address] [id number] [place] [address]- 2621 May, [facility] [place] [facility] [address] [id number] [place] [address]- 6827 May, [facility] [place] [facility] [address] [id number] [place] [address]- 0028 May, [facility] [place] [facility] [address] [id number] [place] [address]- 1208 May, [facility] [place] [facility] [address] [id number] [place] [address]- 4[address] 08 May, 2014 [facility] [place] [facility] [address] [id number] [place] [address] May, [facility] [place] [facility] [address] [id number] [place] [address]- 2503 May, [facility] [place] [facility] [address] [facility] [id number] [place] [address]- 6240 May, [facility] [place] [facility] [address] [id number] [place] [address]- 6210 May, [facility] [place] [facility] [address] [id number] [place] [address]- 0779 May, [facility] [place] [facility] [address] [id number] [place] [address]- 8472 Apr, [facility] [place] [facility] [address] [id number] [place] [address]- 1963 Apr, [facility] [place] [facility] [address] [id number], [place] [address]- 2662 Apr, [facility] [place] [facility] [address] [id number], [place] [address]- 3[address] Apr, [facility] [place] [facility] [address] [id number] [address]- 4041 Apr, [facility] [place] [facility] [address] [id number], [place] [address]- 6735 Apr, [facility] [place] [facility] [address] [id number], [place] [address]- 6400 Apr, [facility] [place] [facility] [address] [id number], [place] [address]- 4796 Apr, [facility] [place] [facility] [address] [id number], [place] [address]- 5768 Mar, [facility] [place] [facility] [address] [id number], [place] [address]- 4423 Mar, [facility] [place] [facility] [address] [id number] [place] [address]- 3154 Feb, 2013 [facility] [place] [facility] [address] [id number] [place] [address] 2546 Feb, 2013 [facility] [place] [facility] [address] [id number] [place] [address] 2546 Feb, 2013 [facility] [place] [facility] [address] [id number] [place] [address]- 9906 Feb, 2013 [facility] [place] [facility] [address] [id number] [place] [address] 254 Feb, 2013 [facility] [place] [facility] [address] [id number] [place] [address]- 0404 Feb, 2013 [facility] [place] [facility] [address] [id number] [place] [address]- 9060 Feb, [facility] [place] [facility] [address] [id number] [place] [address]- 7719 Feb, 2013 [facility] [place] [facility] [address] [id number] [place] [address]- 7291 Feb, [facility] [place] [facility] [address] [id number] [place] [address]- 9175 Feb, [facility] [place] [facility] [address] [id number] [place] [address]- 8833 Jan, [facility] [place] [facility] [address] [id number] [place] [address] 2544 Jan, [facility] [place] [facility] [address] [id number] [place] [address]- 2541 Jan, [facility] [place] [facility] [address] [id number] [place] [address]- 2239 Jan, [facility] [place] [facility] [address] [id number] [place] [address]- 8947 Jan, [facility] [place] [facility] [address] [id number] [place] [address]- 9545 Jan, [facility] [place] [facility] [address] [id number] [place] [address]- 5269 Jan, [facility] [place] [facility] [address] [id number] [place] [address]- 3983 Jan, [facility] [place] [facility] [address] [id number] [place] [address]- 8178 Jan, [facility] [place] [facility] [address] [id number] [place] [address]- 7202 Jan, [facility] [place] [facility] [address] [id number] [place] [address]- 8350 Jan, [facility] [place] [facility] [address] [id number] [place] [address]- 4869 Jan, [facility] [place] [facility] [address] [id number] [place] [address]- 2089 Jan, [facility] [place] [facility] [address] [id number] [place] [address]- 6446 Dec, [facility] [place] [facility] [address] [id number] [place] [address]- 9625 Dec, [facility] [place] [facility] [address] [id number] [place] [address]- 9580 Dec, [facility] [place] [facility] [address] [id number] [place] [address]- 5014 Dec, [facility] [place] [facility] [address] [id number] [place] [address]- 3411 Dec, [facility] [place] [facility] [address] [id number] [place] [address]- 6621 Dec, [facility] [place] [facility] [address] [id number] [place] [address]- 4607 Dec, [facility] [place] [facility] [address] [id number] [place] [address]- 4533 Dec, [facility] [place] [facility] [address] [id number] [place] [address]- 2891 Dec, [facility] [place] [facility] [address] [id number] [place] [address]- 7931 Dec, [facility] [place] [facility] [address] [id number] [place] [address]- 3822 Dec, [facility] [place] [facility] [address] [id number] [place] [address]- 1096 Dec, [facility] [place] [facility] [address] [id number] [place] [address]- 9637 Dec, [facility] [place] [facility] [address] [id number] [place] [address]- 9644 Dec, [facility] [place] [facility] [address] [id number] [place] [address]- 7197 Nov, [facility] [place] [facility] [address] [id number] [place] [address]- 8931 Nov, [facility] [place] [facility] [address] [id number] [place] [address]- 6209 Nov, [facility] [place] [facility] [address] [id number] [place] [address]- 8580 Nov, [facility] [place] [facility] [address] [id number] [place] [address]- 2357 Nov, [facility] [place] [facility] [address] [id number] [place] [address]- 6136 Nov, [facility] [place] [facility] [address] [id number] [place] [address]- 4063 Nov, [facility] [place] [facility] [address] [id number] [place] [address]- 1986 Nov, [facility] [place] [facility] [address] [id number] [place] [address]- 3299 October, [facility] [place] [facility] [address] [id number] [place] [address]- 6953 October, [facility] [place] [facility] [address] [id number] [place] [address]- 8268 October, [facility] [address] [id number] [place] [address]- 5389 October, [facility] [place] [facility] [address] [id number] [place] [address]- 7456 October, [facility] [place] [facility] [address] [id number] [place] [address]- 6843 October, [facility] [place] [facility] [address] [id number] [place] [address]- 7527 October, [facility] [place] [facility] [address] [id number] [place] [address]- 2597 October, [facility] [place] [facility] [address] [id number] [place] [address]- 6870 October, [facility] [place] [facility] [address] [id number] [place] [address]- 8702 October, [facility] [address] [id number] [place] [address]- 6601 October, [facility] [place] [facility] [address] [id number] [place] [address]- 8584 October, [facility] [place] [facility] [address] [id number] [place] 5678 October, [facility] [place] [facility] [address] [id number] [place] [address]- 4967 October, [facility] [place] [facility] [address] [id number] [place] [address]- 7000 October, [facility] [place] [facility] [address] [id number] [place] [address]- 4823 October, [facility] [place] [facility] [address] [id number] [place] [address]- 0435 Sep, [facility] [place] [facility] [address] [id number] [place] [address]- 3219 Sep, [facility] [place] [facility] [address] [id number] [place] [address]- 1253 Sep, [facility] [place] [facility] [address] [id number] [place] [address]- 2996 Sep, [facility] [place] [facility] [address] [id number] [place] [address]- 1695 Sep, [facility] [place] [facility] [address] [id number] [place] [address]- 5700 Sep, [facility] [place] [facility] [address] [id number] [place] [address]- 2458 Sep, [facility] [place] [facility] [address] [id number] [place] [address]- 6709 Sep, [facility] [place] [facility] [address] [id number] [place] [address]- 7624 Sep, [facility] [place] [facility] [address] [id number] [place] [address]- 0784 Sep, [facility] [place] [facility] [address] [id number] [place] [address]- 5914 Sep, [facility] [place] [facility] [address] [id number] [place] [address]- 8725 Sep, [facility] [place] [facility] [address] [id number] [place] [address]- 7935 Sep, [facility] [place] [facility] [address] [id number] [place] [address]- 1098 Sep, [facility] [place] [facility] [address] [id number] [place] [address]- 2510 Sep, [facility] [place] [facility] [address] [id number] [place] [address]- 6816 Sep, [facility] [place] [facility] [address] [id number] [place] [address]- 6620 Sep, [facility] [place] [facility] [address] [id number] [place] [address]- 0247 Sep, [facility] [place] [facility] [address] [id number] [place] [address]390 Sep, [facility] [place] [facility] [address] [id number] [place] [address]- 2906 Aug, [facility] [place] [facility] [address] [id number] [place] [address]- 2488 Aug, [facility] [place] [facility] [address] [id number] [place] [address]- 9018 Aug, [facility] [place] [facility] [address] [id number] [place] [address]- 1549 Aug, [facility] [place] [facility] [address] [id number] [place] [address]- 0403 Jul, [facility] [place] [facility] [address] [id number] [place] [address]- 1260 Jul, [facility] [place] [facility] [address] [id number] [place] [address]- 2837 Jul, [facility] [place] [facility] [address] [id number] [place] [address]- 7584 Jul, [facility] [place] [facility] [address] [facility] [id number] [place] [address]- 8406 Jul, [facility] [place] [facility] [address] [facility] [id number] [place] [address]- 5659 14 Jul, 2013 [facility] [place] [facility] [address] [id number] [place] 3640 Jul, [facility] [place] [facility] [address] [id number] [place] 0814 Jul, [facility] [place] [facility] [address] [facility] [id number] [place] 4661 Jul, [facility] [place] [facility] [address] [facility] [id number] [place] [address]- 5684 Jul, [facility] [place] [facility] [address] [id number] [place] [address]- 6254 Jul, [facility] [place] [facility] [address] [id number] [place] [address]- 8460 Jul, [facility] [place] [facility] [address] [id number] [place] [address]- 8542 Jun, [facility] [place] [facility] [address] [id number] [place] [address]- 3398 Jun, [facility] [place] [facility] [address] [id number] [place] [address]- 2863 Jun, [facility] [place] [facility] [address] [id number] [place] [address]- 3000 Jun, [facility] [place] [facility] [address] [id number] [place] [address]- 4324 Jun, [facility] [place] [facility] [address] [id number] [place] [address]- 1566 Jun, [facility] [place] [facility] [address] [id number] [place] [address]- 2874 May, [facility] [place] [facility] [address] [id number] [place] [address]- 2312 May, [facility] [place] [facility] [address] [id number] [place] [address]- 9463 Apr, [facility] [place] [facility] [address] [id number], [place] [address]- 8494 Apr, [facility] [place] [facility] [address] [id number] [place] [address]- 1296 Apr, [facility] [place] [facility] [address] [id number] [place] [address]- 2374 Apr, [facility] [place] [facility] [address] [id number] [place] [address]- 0321 Apr, [facility] [place] [facility] [address] [id number] [place] [address]- 2346 18 Apr, 2013 [facility] [address] [id number] [place] [address]- 8912 17 Apr, 2013 [facility] [place] [facility] [address] [id number] [place] [address]- 7048 15 Apr, 2013 [facility] [address] [id number] [place] [address]- 6817 15 Apr, 2013 [facility] [place] [facility] [address] [id number] [place] [address]- 3190 15 Apr, 2013 [facility] [address] [id number] [place] [address]- 7733 15 Apr, 2013 [facility] [place] [facility] [address] [id number] [place] [address]- 8818 Apr, [facility] [address] [id number] [place] [address]- 7110 Apr, [facility] [address] [id number] [place] [address]- 9140 31 Mar, 2013 [facility] [place] [facility] [address] [id number] [place] [address]- 1454 31 Mar, 2013 [facility] [address] [id number] [place] [address]- 5966 25 Mar, 2013 [facility] [place] [facility] [address] [id number] [place] [address]- 8201 25 Mar, 2013 [facility] [place] [facility] [address] [id number], [place] [address]- 6194 17 Mar, 2013 [facility] [place] [facility] [address] [id number] [place] [address]- 4676 17 Mar, 2013 [facility] [place] [facility] [address] [id number] [place] [address]- 5574 14 Mar, 2013 [facility] [place] [facility] [address] [id number] [place] [address]- 5545 14 Mar, 2013 [facility] [place] [facility] [address] [id number] [place] [address]- 6309 11 Mar, 2013 [facility] [place] [facility] [address] [id number] [place] [address]- 0209 11 Mar, 2013 [facility] [place] [facility] [address] [id number] [place] 0968 02 Mar, 2013 [facility] [place] [facility] [address] [id number] [place] [address]- 2644 30 Feb, 2013 [facility] [place] [facility] [address] [id number] [place] [address]- 7719 28 Feb, 2013 [facility] [place] [facility] [address] [id number] [place] [address]- 1786 27 Feb, 2013 [facility] [place] [facility] [address] [id number] [place] [address] 27 Feb, 2013 [facility] [place] [facility] [address] [id number] [place] [address] 20 Feb, 2013 [facility] [place] [facility] [address] [id number] [place] [address] 10 Feb, 2013 [facility] [place] [facility] [address] [id number] [place] [address] Jan, [facility] [place] [facility] [address] [id number] [place] [address] Jan, [facility] [place] [facility] [address] [id number], [place] [address] Dec, [facility] [place] [facility] [address] [id number] [place] [address] Dec, [facility] [place] [facility] [address] [id number] [place] [address] Dec, [facility] [place] [facility] [address] [id number] [place] [address] Dec, [facility] [place] [facility] [address] [id number], [place] [address] Nov, [facility] [address] [id number] [place] [address] Nov, [facility] [place] [facility] [address] [id number] [place] [address] Nov, [facility] [address] [id number] [place] [address] October, [facility] [address] [id number] [place] [address] October, [facility] [address] [id number] [place] [address] October, [facility] [address] [id number] [place] [address] October, [facility] [address] [id number] [place] [address] October, [facility] [address] [id number] [place] [address] Sep, [facility] [address] [id number] [place] [address] Sep, [facility] [place] [facility] [address] [id number] [place] [address] Aug, [facility] [address] [id number] [place] [address] Aug, [facility] [place] [facility] [address] [id number] [place] [address] Aug, [facility] [place] [facility] [address] [id number] [place] [address] Aug, [facility] [place] [facility] [address] [id number] [place] [address] 9164 Aug, [facility] [place] [facility] [address] [id number] [place] [address] Jul, [facility] [place] [facility] [address] [id number] [place] [address] 11 Jul, 2012 [facility] [address] [id number] [place] [address] 06 Jul, 2012 [facility] [place] [facility] [address] [id number] [place] [address] 04 Jul, 2012 [facility] [address] [id number] [place] [address] Jun, [facility] [address] [id number] [place] [address] Jun, [facility] [address] [id number] [place] [address] Jun, [facility] [address] [id number] [place] [address] Jun, [facility] [address] [id number] [place] [address]00 Jun, [facility] [address] [id number] [place] [address] 46[address] Jun, [facility] [address] [id number] [place] [address] Jun, [facility] [address] [id number] [place] [address] Jun, [facility] [address] [id number] [place] [address] Jun, [facility] [address] [id number] [place] [address]69 Jun, [facility] [place] [facility] [address] [id number] [place] [address] Jun, [facility] [place] [facility] [address] [id number] [place] [address] May, [facility] [address] [id number] [place] [address] May, [facility] [place] [facility] [address] [id number] [place] [address] Apr, [facility] [place] [facility] [address] [id number] [place] [address] Apr, [facility] [place] [facility] [address] [facility] [id number] [place] [address]- [address] Mar, [facility] [place] [facility] [address] [id number] [place] [address] Mar, [facility] [place] [facility] [address] [id number] [place] [address]- 488[address] Mar, [facility] [place] [facility] [address] [id number] [place] [address]- [address]441 Mar, [facility] [place] [facility] [address] [id number] [place] [address] 1670 Mar, [facility] [place] [facility] [address] [id number] [place] [address]- [address] Mar, [facility] [place] [facility] [address] [id number] [place] [address]- 9397 Mar, [facility] [place] [facility] [address] [id number] [place] [address]- 1018 Mar, [facility] [place] [facility] [address] [id number], [place] [address] Mar, [facility] [place] [facility] [address] [id number], [place] [address] Feb, [facility] [place] [facility] [address] [id number] [place] [address] 2546 Jan, [facility] [place] [facility] [address] [facility] [id number], [place] [address] Jan, [facility] [place] [facility] [address] [facility] [id number] [place] [address]- [address]46 Dec, [facility] [place] [facility] [address] [id number] [place] [address] 4170 Dec, [facility] [address] [id number] [place] [address]- [address]201 Dec, [facility] [place] [facility] [address] [id number] [place] [address] Nov, [facility] [address] [id number] [place] [address] Nov, [facility] [place] [facility] [address] [id number] [place] [address] Nov, [facility] [address] [id number] [place] [address] Nov, [facility] [address] [id number] [place] [address] October, [facility] [address] [id number] [place] [address] October, [facility] [address] [id number] [place] [address] Sep, [facility] [place] [facility] [address] [id number] [place] [address] Sep, [facility] [address] [id number] [place] [address] Aug, [facility] [place] [facility] [address] [id number] [place] [address] Jul, [facility] [address] [id number] [place] [address] Jul, [facility] [place] [facility] [address] [id number] [place] [address] Jul, [facility] [place] [facility] [address] [id number] [place] [address] Jul, [facility] [place] [facility] [address] [id number] [place] [address] Jun, [facility] [place] [facility] [address] [id number] [place] [address] 15 May, 2011 [facility] [place] [facility] [address] [id number] [place] [address] 15 May, 2011 [facility] [place] [facility] [address] [id number] [place] [address] 15 May, 2011 [facility] [place] [facility] [address] [id number] [place] [address] 13 May, 2011 [facility] [place] [facility] [address] [id number] [place] [address] 08 May, 2011 [facility] [place] [facility] [address] [id number] [place] [address] 14 Apr, 2011 [facility] [place] [facility] [address] [id number] [place] [address] 14 Apr, 2011 [facility] [place] [facility] [address] [id number], [place] [address] 14 Apr, 2011 [facility] [place] [facility] [address] [id number] [place] [address] 07 Apr, 2011 [facility] [place] [facility] [address] [id number], [place] [address] 02 Apr, 2011 [facility] [place] [facility] [address] [id number], [place] [address] 26 Mar, 2011 [facility] [place] [facility] [address] [id number], [place] [address] 25 Mar, 2011 [facility] [place] [facility] [address] [id number] [place] [address] 14 Mar, 2011 [facility] [place] [facility] [address] [id number], [place] [address] 14 Mar, 2011 [facility] [place] [facility] [address] [id number], [place] [address] 13 Mar, 2011 [facility] [place] [facility] [address] [id number], [place] [address] 11 Mar, 2011 [facility] [place] [id number] [address] 11 Mar, 2011 [facility] [place] [address] [id number], [place] [address] 11 Mar, 2011 [facility] [place] [id number], [place] [address] 14 Feb, 2011 [facility] [place] [id number], [place] [address] May, [facility] [place] [id number] [place] [address] May, [facility] [place] [id number], [place] [address] May, [facility] [place] [id number], [place] [address] Apr, [facility] [place] [id number], [place] [address] Mar, IMMUNIZATIONS No Known Immunizations SOCIAL HISTORY Never Assessed REASON FOR VISIT med refill PLAN OF CARE VITAL SIGNS MEDICATIONS Medication Instructions Dosage Frequency Start Date End Date Duration Status Effexor XR 150 MG Orally Once a day 1 capsule 24h Aug, 30 days Active RESULTS No Results PROCEDURES [...]
--- OUTSIDE RECORDS SUMMARY | 2018-08-19 09:25 | XMS REPORT ---
Author Author CURTIS GLENN Organization [facility] Address [address] [place] [address] Care Team Providers Care Prototype Engineer Name Role Phone HARSHSALVADOR GLENN Unavailable PROBLEMS Type Condition ICD9-CM Code ICK47-AA Code Onset Dates Condition Status SNOMED Code Problem Mixed hyperlipidemia E78.2 Active 311271772 Problem Vitamin D deficiency E55.9 Active 69108919 Problem Essential hypertension I10 Active 73850222 Problem Mild intermittent asthma without complication J45.20 Active 368311356 Problem Generalized anxiety disorder F41.1 Active 36831562 Problem Gastroesophageal reflux disease, esophagitis presence not specified K21.9 Active 228121540 Problem Bipolar disorder, current episode mixed, moderate F31.62 Active 104749873 Problem Bipolar disorder F31.9 Active 80801656 Problem Panic disorder F41.0 Active 809741227 Problem Low back pain with sciatica, sciatica laterality unspecified, unspecified back pain laterality, unspecified chronicity M54.40 Active 206734432 Problem Acute right-sided low back pain with right-sided sciatica M54.41 Active 77299168 Problem Excessive thirst R63.1 Active 22373430 Problem Concussion without loss of consciousness, initial encounter S06.0X0A Active 01393958 Problem Primary insomnia F51.01 Active 948780648 Problem Anxiety F41.9 Active 95643544 Problem Hematuria R31.9 Active 45987096 Problem Hot flashes R23.2 Active 443205251 Problem Multiple fractures T07.XXXA Active 539243646 Problem Nausea R11.0 Active 089169632 Problem Hospital discharge follow-up Z09 Active 369088520 Problem Breast tenderness N64.4 Active 12328816 Problem Depression F32.9 Active 63892479 Problem Hidradenitis suppurativa L73.2 Active 09207844 Problem History of IBS Z87.19 Active 09794190730938 Problem Localized edema R60.0 Active 800128931 Problem Posttraumatic stress disorder F43.10 Active 26783674 Problem Genital herpes simplex, unspecified site A60.00 Active 95002288 Problem Tobacco use Z72.0 Active 747429229 ALLERGIES No Information ENCOUNTERS Encounter Location Date Diagnosis [place] [id number] [place] [address] 70744- 0347 Jan, Panic disorder F41.0 [place] [address] [place] [id number] [place] [address] 92776- 0212 Dec, Diaphoresis R61 and Excessive thirst R63.1 [place] [address] [place] [id number] [place] [address] 44085- 6070 Dec, Panic disorder F41.0 ; Bipolar disorder, current episode mixed, moderate F31.62 and Generalized anxiety disorder F41.1 [place] [address] [place] [address] 77748- 0774 Dec, Panic disorder F41.0 [place] [address] [place] [id number] [place] [address] 24922- 9504 Nov, Panic disorder F41.0 [place] [address] [place] [id number] [place] [address] 89729- 1300 Nov, Panic disorder F41.0 ; Generalized anxiety disorder F41.1 and Bipolar disorder, current episode mixed, moderate F31.62 [place] [address] [address] 2348 Nov, Panic disorder F41.0 [place] [id number] [place] [address] 08941- 0606 Nov, Panic disorder F41.0 [place] [address] [place] [id number] [place] [address] 96052- 3279 October, Panic disorder F41.0 [place] [address] [place] [id number] [place] [address] 36552- 7736 October, Panic disorder F41.0 ; Generalized anxiety disorder F41.1 and Bipolar disorder, current episode mixed, moderate F31.62 [place] [address] [place] [id number] [place] [address] 88466- 6935 October, Panic disorder F41.0 [place] [address] 33695- 5791 Sep, Hospital discharge follow-up Z09 ; Concussion without loss of consciousness, initial encounter S06.0X0A and Nausea R11.[address] 80340- 0191 Sep, [place] [address] 34775- 1318 Sep, Panic disorder F41.[address] 19005- 1571 Sep, [place] [address] [place] [id number] [place] [address] 06300- 8036 Sep, Well woman exam with routine gynecological exam Z01.419 ; Multiple fractures T07.XXXA ; Hot flashes R23.2 ; Essential hypertension I10 ; Mixed hyperlipidemia E78.2 ; Genital herpes simplex, unspecified site A60.00 ; Alkaline phosphatase elevation R74.8 ; Dysuria R30.0 ; Vitamin D deficiency E55.9 ; Tobacco use Z72.0 ; High risk sexual behavior Z72.51 and Encounter for immunization Z23 [place] [id number] [place] [address] 38012- 2674 Aug, Panic disorder F41.0 ; Generalized anxiety disorder F41.1 and Bipolar disorder, current episode mixed, moderate F31.62 [place] [address] [place] [id number] [place] [address] 38274- 2829 Aug, [place] [id number] [place] [address] 20081- 6153 Jul, Panic disorder F41.0 ; Generalized anxiety disorder F41.1 and Bipolar disorder, current episode mixed, moderate F31.62 [place] [address] [place] [id number] [place] [address] 90091- 3993 Jul, [facility] [id number] [place] [address] 93300- 1562 Jul, [facility] [id number] [place] [address] 82234- 8802 Jul, Effusion, right knee M25.461 ; Acute pain of right knee M25.561 and Acute pain of left knee M25.562 [facility] [address] [id number] [place] [address] 65122- 7439 Jun, Bipolar disorder, current episode mixed, moderate F31.62 ; Generalized anxiety disorder F41.1 and Panic disorder F41.0 [facility] [address] [place] [id number] [place] [address] 33650- 5832 May, Bipolar disorder, current episode mixed, moderate F31.62 ; Generalized anxiety disorder F41.1 and Panic disorder F41.0 [facility] [address] [place] [id number] [place] [address] 25501- 3542 May, Bipolar disorder, current episode mixed, moderate F31.62 [facility] [address] [place] [id number] [place] [address] 46278- 4404 May, Bipolar disorder, current episode mixed, moderate F31.62 [facility] [address] [place] [address] 35290- 4037 Apr, Bipolar disorder, current episode mixed, moderate F31.62 ; Generalized anxiety disorder F41.1 and Panic disorder F41.0 [facility] [address] [address]- 9407 Mar, [facility] [address] [place] [address] 93800- 8272 Mar, Bipolar disorder, current episode mixed, moderate F31.62 ; Generalized anxiety disorder F41.1 and Panic disorder F41.0 [facility] [address], [place] [address]- 3979 Feb, [facility] [address] [place] [id number] [place] [address] 77258- 4064 22 Feb, 2017 Posttraumatic stress disorder F43.10 [facility] [address] [place] [id number] [place] [address] 57482- 8157 20 Feb, 2017 Gastroesophageal reflux disease, esophagitis presence not specified K21.9 [facility] [address] [place] [id number] [place] [address] 02398- 4672 13 Feb, 2017 [facility] [address] 35480- 7889 06 Feb, 2017 Knee pain, right anterior M25.561 [place] [address] 89015- 0594 05 Feb, 2017 HSV (herpes simplex virus) infection B00.9 [place] [address] [place] [id number] [place] [address] 26763- 7952 Feb, [place] [address] [place] [id number] [place] [address] 19749- 8166 Jan, [place] [address] [place] [id number] [place] [address] 60795- 8185 Jan, Posttraumatic stress disorder F43.10 [place] [address] [place] [id number] [place] [address] 16523- 6548 Jan, Foot pain, left M79.672 [place] [address] [place] [id number] [place] [address] 46985- 3877 Jan, [facility] [address] [place] [id number] [place] [address] 59449- 254 Jan, Lumbar radiculopathy, acute M54.16 ; Muscle spasm of back M62.830 and Right hip pain M25.551 [place] [address] [place] [id number] [place] [address] 29886- 9543 Jan, Lumbar radiculopathy, acute M54.16 [place] [address] [place] [id number] [place] [address] 87435- 6145 Jan, [facility] [address] [address]- 9417 Jan, [facility] [address] [place] [id number] [place] [address] 39406- 0769 Dec, Lumbar radiculopathy, acute M54.16 ; Acute renal insufficiency N28.9 and Muscle spasm of back M62.830 [facility] [address] [place] [id number] [place] [address] 60359- 7893 Dec, [facility] [address] [place] [id number] [place] [address] 40637- 2738 Dec, [facility] [address] [place] [id number] [place] [address] 31985- 7332 Dec, [facility] [address] [place] [id number] [place] [address] 18606 -3132 Dec, Low back pain with sciatica, sciatica laterality unspecified, unspecified back pain laterality, unspecified chronicity M54.40 and Acute right-sided low back pain with right-sided sciatica M54.41 [facility] [address] [place] [id number] [place] [address] 67973- 7166 Dec, Posttraumatic stress disorder F43.10 [facility] [address] [place] [id number] [place] [address] 45487- 3035 Dec, [facility] [address] [place] [id number] [place] [address] 53174- 4786 Dec, Pain in right thigh M79.651 and Acute right-sided low back pain without sciatica M54.5 [facility] [address] [place] [id number] [place] [address] 44096- 0732 Dec, Posttraumatic stress disorder F43.10 and Major depressive disorder, recurrent episode with anxious distress F33.9 [facility] [address], [place] [address] -4417 Dec, [facility] [address] [id number] [address]- 4567 Nov, [facility] [address] [place] [id number] [place] [address] 18465- 3569 October, [facility] [address] [place] [id number] [place] [address] 36333- 2381 October, [facility] [address] [place] [id number] [place] [address] 91131- 3874 October, Knee pain, right anterior M25.561 [facility] [address] [place] [id number] [place] [address] 77158- 1769 October, Knee pain, right anterior M25.561 [facility] [address] [place] [id number] [place] [address] 63877- 5417 October, [facility] [address] [place] [id number] [place] [address] 22420- 2370 October, [facility] [address] [place] [id number] [place] [address] 98834- 8481 October, [facility] [id number] [place] [address] 14090 -8603 Sep, [facility] [address] [place] [id number] [place] [address] 06716- 3828 Sep, [facility] [id number] [place] [address] 63354- 0733 Sep, Essential hypertension I10 [facility] [id number] [address]- 0527 Sep, Essential hypertension I10 [facility] [id number] [place] [address] 03999- 0445 Sep, [facility] [address] [place] [id number] [place] [address] 17104- 5152 Sep, Posttraumatic stress disorder F43.10 and Major depressive disorder, recurrent episode with anxious distress F33.9 [facility] [address] [place] [id number] [place] [address] 92618- 0591 Sep, Multiple fractures T14.8 ; Alkaline phosphatase elevation R74.8 and Vitamin D deficiency E55.9 [place] [address] [place] [id number] [place] [address] 67392- 1742 Sep, [place] [address] [place] [id number] [place] [address] 66463- 2823 Sep, Elevated serum creatinine R79.89 ; Fracture of foot, left, closed, initial encounter S92.902A and Alkaline phosphatase elevation R74.8 [place] [address] 21903- 2088 Sep, Elevated serum creatinine R79.89 and Essential hypertension I10 [place] [address] [place] [id number] [place] [address] 77665- 9552 Sep, [place] [address] 61366- 2479 Aug, Gastroesophageal reflux disease, esophagitis presence not specified K21.9 [place] [address] 44947- 0716 Aug, Essential hypertension I10 ; Fracture of foot, left, closed , initial encounter S92.902A and Alkaline phosphatase elevation R74.8 [place] [address] [place] [id number] [place] [address] 07258- 9864 Jul, Genital herpes simplex, unspecified site A60.00 [place] [address] [place] [id number] [place] [address] 50176- 0846 Jul, Essential hypertension I10 [place] [address] [place] [id number] [place] [address] 48112- 8416 Jun, Cough R05 and Wheezing R06.2 [place] [address] [place] [id number] [place] [address] 69407- 1991 Jun, Essential hypertension I10 [place] [address] 26261- 3467 May, Essential hypertension I10 [facility] [id number] [place] [address] 10954- 0650 14 May, 2016 Posttraumatic stress disorder F43.10 and Major depressive disorder, recurrent episode with anxious distress F33.9 [facility] [address] [address]- 8398 Apr, [facility] [address] [place] [id number] [place] [address] 98194- 8026 Apr, [facility] [address] [place] [id number] [place] [address] 20126- 2450 Apr, [facility] [address] [place] [id number] [place] [address] 83484- 0040 Mar, [facility] [address] [place] [id number] [place] [address] 22362- 3356 Feb, [facility] [address] [place] [id number] [place] [address] 16287- 5442 Jan, [facility] [address] [place] [id number] [place] [address] 19806- 9025 Jan, Essential hypertension I10 ; Mixed hyperlipidemia E78.2 ; Gastroesophageal reflux disease, esophagitis presence not specified K21.9 ; Mild intermittent asthma without complication J45.20 ; Hidradenitis suppurativa L73.2 ; Migraine without status migrainosus, not intractable, unspecified migraine type G43.909 ; Genital herpes simplex, unspecified site A60.00 and Closed traumatic minimally displaced fracture of metatarsal bone of left foot S92.302A [facility] [address], [place] [address] Jan, Localized edema R60.0 [facility] [address] [place] [id number] [place] [address] 10944- 0155 Dec, [facility] [address] [place] [id number] [place] [address] 84469- 8744 Dec, [facility] [address] [place] [id number] [place] [address] 19566- 5718 Dec, [facility] [address] [place] [id number] [place] [address] 17842 -9600 Dec, Cough R05 ; Tobacco dependence F17.200 and Costochondritis , acute M94.0 [facility] [address] [place] [id number] [place] [address] 78424- 8030 Dec, Major depression, recurrent F33.9 ; Bipolar disorder, unspecified F31.9 and Posttraumatic stress disorder F43.10 [facility] [address] [place] [id number] [place] [address] 38515- 1463 Nov, [facility] [address] 28090- 7075 Nov, [facility] [address] 79636- 3497 October, [facility] [address] 20802 -8338 October, Acute upper respiratory infection, unspecified J06.9 [facility] [address] [place] [id number] [place] [address] 22636- 2428 October, [facility] [address] [place] [id number] [place] [address] 16599- 9403 Sep, Bipolar affective disorder, remission status unspecified F31.9 and Post-traumatic stress disorder F43.10 [facility] [address] [place] [id number] [place] [address] 85929- 1684 Sep, Bipolar disorder, unspecified F31.9 ; Posttraumatic stress disorder F43.10 and Major depression, recurrent F33.9 [place] [address] 01049- 8803 16 Aug, 2015 Edema R60.9 ; Fatigue R53.83 and Polydipsia R63.1 [place] [address] [place] [id number] [place] [address] 46482- 5761 Aug, [place] [address], [place] [address]- 9376 Aug, [facility] [address] [place] [address] 43835- 8428 Jul, [facility] [address] [place] [address] 16671- 8188 Jul, [facility] [address] [place] [id number] [place] [address] 19423- 3964 Jun, [facility] [address] [place] [id number] [place] [address] 14606- 3031 Jun, [place] [address] [place] [id number] [place] [address] 52371- 8763 Jun, [facility] [address] [place] [id number] [place] [address] 21259- 4298 Jun, [facility] [address] [place] [id number] [place] [address] 68321- 7282 May, Mixed hyperlipidemia E78.2 [place] [address] [place] [id number] [place] [address] 48007- 4005 May, Well woman exam Z01.419 ; History of herpes simplex infection Z86.19 ; Papanicolaou smear Z12.4 ; History of depression Z86.59 ; History of anxiety Z86.59 ; Lipoma of other specified sites D17.79 ; Hidradenitis suppurativa L73.2 ; Routine screening for STI (sexually transmitted infection) Z11.3 and Tobacco use Z72.0 [place] [address] [place] [address] 87522- 3594 May, Hematuria R31.9 ; Essential hypertension I10 ; Pure hypercholesterolemia E78.0 and Hidradenitis L73.2 [place] [address] [place] [address] 76659- 0074 May, Upper respiratory symptom R09.89 and Allergic rhinitis J30.9 [place] [address] [place] [id number] [place] [address] 95091- 1519 May, [facility] [address] [id number] [place] [address] 83746- 1058 May, [facility] [address] [id number] [place] [address] 24555- 4593 May, Bipolar disorder, unspecified F31.9 ; Posttraumatic stress disorder F43.10 and Major depression, recurrent F33.9 [facility] [address] [id number] [place] [address] 68454- 8801 May, [facility] [address] [id number] [place] [address] 36446- 6535 May, [facility] [address] [id number] [place] [address] 20841- 8251 Apr, [facility] [id number] [place] [address] 31982- 2208 Apr, [facility] [id number] [place] [address] 03105- 9907 Mar, [facility] [address] [id number] [place] [address] 11024- 9132 Mar, [facility] [id number] [place] [address] 69674- 6510 Mar, [facility] [id number] [place] [address] 56724- 2017 18 Feb, 2015 Major depressive disorder, recurrent episode, moderate 296.32 and Post traumatic stress disorder (PTSD) 309.81 [facility] [address] [address]- 6622 10 Feb, 2015 [facility] [id number] [place] [address] 16415- 0840 08 Feb, 2015 [facility] [address] [id number] [place] [address] 76570- 8525 Jan, Cough 786.2 [facility] [id number] [place] [address] 19005- 9979 Jan, Depression, major, recurrent, moderate 296.32 and Post traumatic stress disorder (PTSD) 309.81 [facility] [address] [address]- 2515 Jan, [facility] [id number] [place] [address] 12157- 6870 Dec, [facility] [id number] [place] [address] 68557- 5771 Dec, Generalized anxiety disorder 300.02 and Depression, major, recurrent, moderate 296.32 [facility] [address] [id number] [place] [address] 63534- 9894 Dec, [facility] [id number] [place] [address] 60111- 0293 Dec, High risk medication use V58.69 [facility] [id number] [place] [address] 87907- 6031 Dec, High risk medication use V58.69 [facility] [id number] [place] [address] 39036- 3737 Dec, [facility] [id number] [place] [address] 19755- 1832 Nov, Generalized anxiety disorder 300.02 and Major depressive disorder, recurrent episode, moderate 296.32 [facility] [id number] [place] [address] [id number] Nov, Dental examination V72.2 [facility] [id number] [place] [address] [id number] Nov, Dental examination V72.2 [facility] [id number] [place] [address] [id number]- 4796 Nov, [facility] [id number] [place] [address] [id number] Nov, Dental examination V72.2 [facility] [id number] [place] [address] [id number] Nov, Dental examination V72.2 [facility] [address], [place] [address]- 0006 October, Major depressive disorder, recurrent episode, moderate 296.32 and Generalized anxiety disorder 300.02 [facility] [address], [place] [address]- 8706 October, [facility] [id number] [address]- 4456 October, [facility] [id number], [place] [address]- 2046 October, [facility] [id number] [place] [address] 91519- 9776 Sep, [facility] [address], [place] [address]- 9406 Sep, [facility] [address], [place] [address]- 4946 Aug, [facility] [id number] [address] Aug, [facility] [id number] [address] Aug, [facility] [id number] [address] Aug, [facility] [id number] [address] Aug, [facility] [id number] [address] Aug, [facility] [id number] [address] Aug, [facility] [address] [id number] [address] 16 Jul, 2014 [facility] [id number] [address] 16 Jul, 2014 [facility] [place] [facility] [address] [id number] [place] [address] Jul, 2014 [facility] [place] [facility] [address] [id number] [place] [address] 2546 Jul, 2014 [facility] [place] [facility] [address] [id number] [place] [address]- 9596 Jul, 2014 [facility] [place] [facility] [address] [id number] [place] [address]- 5516 Jul, 2014 [facility] [place] [facility] [address] [id number] [place] [address]- 1779 Jul, 2014 [facility] [place] [facility] [address] [facility] [id number] [place] [address]- 0139 Jul, 2014 [facility] [place] [facility] [address] [facility] [id number] [place] [address]- 4920 Jul, 2014 [facility] [place] [facility] [address] [id number] [place] [address]- 9807 Jun, [facility] [place] [facility] [address] [facility] [id number] [place] [address]- 4087 Jun, [facility] [place] [facility] [address] [facility] [id number] [place] [address]- 6128 Jun, [facility] [place] [facility] [address] [facility] [id number] [place] [address]- 5256 Jun, [facility] [place] [facility] [address] [id number] [place] [address] 2548 Jun, [facility] [place] [facility] [address] [id number] [place] [address]- 4325 Jun, [facility] [place] [facility] [address] [facility] [id number] [place] [address]- 7481 Jun, [facility] [place] [facility] [address] [facility] [id number] [place] [address]- 1838 Jun, [facility] [place] [facility] [address] [id number] [place] [address]- 7209 Jun, [facility] [place] [facility] [address] [id number] [place] [address]- 7372 Jun, [facility] [place] [facility] [address] [id number] [place] [address]- 1811 Jun, [facility] [place] [facility] [address] [id number] [place] [address]- 4383 Jun, [facility] [place] [facility] [address] [id number] [place] [address]- 8472 Jun, [facility] [place] [facility] [address] [id number] [place] [address]- 6250 Jun, [facility] [place] [facility] [address] [id number] [place] [address]- 6467 Jun, [facility] [place] [facility] [address] [id number] [place] [address]- 3099 Jun, [facility] [place] [facility] [address] [id number] [place] [address]- 7896 Jun, [facility] [place] [facility] [address] [id number] [place] [address]- 5817 Jun, [facility] [place] [facility] [address] [id number] [address]- 7338 Jun, [facility] [place] [facility] [address] [id number], [place] [address]- 6426 Jun, [facility] [place] [facility] [address] [id number] [place] [address]- 9092 Jun, [facility] [place] [facility] [address] [id number], [place] [address]- 5392 Jun, [facility] [place] [facility] [address] [id number] [place] [address]- 7837 Jun, [facility] [place] [facility] [address] [id number] [place] [address]- 6057 05 Jun, 2014 [facility] [address] [id number] [place] [address]- 2645 Jun, [facility] [place] [facility] [address] [id number] [place] [address]- 2516 May, [facility] [place] [facility] [address] [id number] [place] [address]- 0006 May, [facility] [place] [facility] [address] [id number] [place] [address]- 8055 May, [facility] [place] [facility] [address] [id number] [place] [address]- 2627 May, [facility] [place] [facility] [address] [id number] [place] [address]- 0710 May, [facility] [place] [facility] [address] [id number] [place] [address]- 9171 May, [facility] [place] [facility] [address] [id number] [place] [address]- 6710 May, [facility] [place] [facility] [address] [id number] [place] [address]- 7362 May, [facility] [place] [facility] [address] [id number] [place] [address]- 0670 May, [facility] [place] [facility] [address] [id number] [place] [address]- 1206 May, [facility] [place] [facility] [address] [id number] [place] [address]- 8647 May, [facility] [place] [facility] [address] [id number] [place] [address]- 1847 May, [facility] [place] [facility] [address] [id number] [place] [address]- 9548 May, [facility] [place] [facility] [address] [id number] [place] [address]- 5587 May, [facility] [place] [facility] [address] [id number] [place] [address]- 8271 May, [facility] [place] [facility] [address] [id number] [place] [address]- 7116 May, [facility] [place] [facility] [address] [id number] [place] [address] May, [facility] [place] [facility] [address] [id number] [place] [address]- 0021 May, [facility] [place] [facility] [address] [id number] [place] [address]- 5780 Apr, [facility] [place] [facility] [address] [id number] [place] [address]- 5420 Apr, [facility] [place] [facility] [address] [id number] [place] [address]- 0264 Apr, [facility] [place] [facility] [address] [id number] [place] [address]- 3424 Apr, [facility] [place] [facility] [address] [id number] [place] [address]- 6463 Apr, [facility] [place] [facility] [address] [id number] [place] [address]- 6357 Apr, [facility] [place] [facility] [address] [id number] [place] [address]- 8298 Apr, [facility] [place] [facility] [address] [id number] [place] [address]- 9073 Apr, [facility] [place] [facility] [address] [id number] [place] [address]- 9615 Mar, [facility] [place] [facility] [address] [id number] [place] [address]- 4964 Mar, [facility] [place] [facility] [address] [id number] [place] [address]- 9624 Feb, [facility] [place] [facility] [address] [id number] [place] [address]- 4942 Feb, [facility] [place] [facility] [address] [id number] [place] [address]- 1039 Feb, [facility] [place] [facility] [address] [id number] [place] [address]- 2871 Feb, [facility] [place] [facility] [address] [id number] [place] [address]- 4069 Feb, [facility] [place] [facility] [address] [id number] [place] [address]- 2677 Feb, [facility] [place] [facility] [address] [id number] [place] [address]- 3307 Feb, [facility] [place] [facility] [address] [id number] [place] [address]- 1691 Feb, [facility] [place] [facility] [address] [id number] [place] [address]- 4808 Feb, [facility] [place] [facility] [address] [id number] [place] [address]- 6208 Feb, [facility] [place] [facility] [address] [id number] [place] [address]- 4379 Jan, [facility] [place] [facility] [address] [id number] [place] [address]- 1350 Jan, [facility] [place] [facility] [address] [id number] [place] [address]- 9848 Jan, [facility] [place] [facility] [address] [id number] [place] [address]- 6635 Jan, [facility] [place] [facility] [address] [id number] [place] [address]- 8026 Jan, [facility] [place] [facility] [address] [id number] [place] [address]- 0177 Jan, [facility] [place] [facility] [address] [id number] [place] [address]- 3686 Jan, [facility] [place] [facility] [address] [id number] [place] [address]- 3918 Jan, [facility] [place] [facility] [address] [id number] [place] [address]- 1801 Jan, [facility] [place] [facility] [address] [id number] [place] [address]- 0115 Jan, [facility] [place] [facility] [address] [id number] [place] [address]- 7912 Jan, [facility] [place] [facility] [address] [id number] [place] [address]- 4312 Jan, [facility] [place] [facility] [address] [id number] [place] [address]- 6740 Jan, [facility] [place] [facility] [address] [id number] [place] [address]- 0835 Dec, [facility] [place] [facility] [address] [id number] [place] [address]- 1002 Dec, [facility] [place] [facility] [address] [id number] [place] [address]- 7894 Dec, [facility] [place] [facility] [address] [id number] [place] [address]- 0943 Dec, [facility] [place] [facility] [address] [id number] [place] [address]- 0507 Dec, [facility] [place] [facility] [address] [id number] [place] [address]- 0879 Dec, [facility] [place] [facility] [address] [id number] [place] [address]- 9296 Dec, [facility] [place] [facility] [address] [id number] [place] [address]- 2614 Dec, [facility] [place] [facility] [address] [id number] [place] [address]- 8792 Dec, [facility] [place] [facility] [address] [id number] [place] [address]- 5803 Dec, [facility] [place] [facility] [address] [id number] [place] [address]- 0398 Dec, [facility] [place] [facility] [address] [id number] [place] [address]- 6386 Dec, [facility] [place] [facility] [address] [id number] [place] [address]- 3332 Dec, [facility] [place] [facility] [address] [id number] [place] [address]- 3804 Dec, [facility] [place] [facility] [address] [id number] [place] [address]- 9607 Nov, [facility] [place] [facility] [address] [id number] [place] [address]- 9511 Nov, [facility] [place] [facility] [address] [id number] [place] [address]- 5955 Nov, [facility] [place] [facility] [address] [id number] [place] [address]- 6226 Nov, [facility] [place] [facility] [address] [id number] [place] [address]- 8556 Nov, [facility] [place] [facility] [address] [id number] [place] [address]- 7350 Nov, [facility] [place] [facility] [address] [id number] [place] [address]- 4068 Nov, [facility] [place] [facility] [address] [id number] [place] [address]- 7038 Nov, [facility] [place] [facility] [address] [id number] [place] [address]- 2983 October, [facility] [place] [facility] [address] [id number] [place] [address]- 2087 October, [facility] [place] [facility] [address] [id number] [place] [address]- 2012 October, [facility] [place] [facility] [address] [id number] [place] [address]- [address], [facility] [address] [id number] [place] [address]- 6134 October, [facility] [place] [facility] [address] [id number] [place] [address]- 6676 October, [facility] [place] [facility] [address] [id number] [place] [address]- 6391 October, [facility] [place] [facility] [address] [id number] [place] [address]- 7040 October, [facility] [place] [facility] [address] [id number] [place] [address]- 8102 October, [facility] [place] [facility] [address] [id number] [place] [address]- 6140 October, [facility] [place] [facility] [address] [id number] [place] [address]- 0945 October, [facility] [place] [facility] [address] [id number] [place] [address]- 2800 October, [facility] [place] [facility] [address] [id number] [place] [address]- 4661 October, [facility] [place] [facility] [address] [id number] [place] [address]- 4509 October, [facility] [place] [facility] [address] [id number] [place] [address]- 9130 October, [facility] [place] [facility] [address] [id number] [place] [address]- 6603 October, [facility] [place] [facility] [address] [id number] [place] [address]- 1132 Sep, [facility] [place] [facility] [address] [id number] [place] [address]- 3645 Sep, [facility] [place] [facility] [address] [id number] [place] [address]- 2583 Sep, [facility] [place] [facility] [address] [id number] [place] [address]- 0832 Sep, [facility] [place] [facility] [address] [id number] [place] [address]- 7287 Sep, [facility] [place] [facility] [address] [id number] [place] [address]- 4547 Sep, [facility] [place] [facility] [address] [id number] [place] [address]- 8543 Sep, [facility] [place] [facility] [address] [id number] [place] [address]- 3495 Sep, [facility] [place] [facility] [address] [id number] [place] [address]- 7512 Sep, [facility] [place] [facility] [address] [id number] [place] [address]- 0929 Sep, [facility] [place] [facility] [address] [id number] [place] [address]- 5927 Sep, [facility] [place] [facility] [address] [id number] [place] [address]- 6319 Sep, [facility] [place] [facility] [address] [id number] [place] [address]- 0313 Sep, [facility] [place] [facility] [address] [id number] [place] [address]- 9819 Sep, [facility] [place] [facility] [address] [id number] [place] [address]- 3142 Sep, [facility] [place] [facility] [address] [id number] [place] [address]- 4066 Sep, [facility] [place] [facility] [address] [id number] [place] [address]- 3491 Sep, [facility] [place] [facility] [address] [id number] [place] [address]- 8620 Sep, [facility] [place] [facility] [address] [id number] [place] [address]- 6563 Sep, [facility] [place] [facility] [address] [id number] [place] [address]- 4092 Aug, [facility] [place] [facility] [address] [id number] [place] [address]- 2895 Aug, [facility] [place] [facility] [address] [id number] [place] [address]- 5960 Aug, [facility] [place] [facility] [address] [id number] [place] [address]- 4013 Aug, [facility] [place] [facility] [address] [id number] [place] [address]- 4244 Jul, [facility] [place] [facility] [address] [id number] [place] [address]- 1195 Jul, [facility] [place] [facility] [address] [id number] [place] [address]- 4635 Jul, [facility] [place] [facility] [address] [id number] [place] [address]- 3413 Jul, [facility] [place] [facility] [address] [id number] [place] [address]- 9826 Jul, [facility] [place] [facility] [address] [id number] [place] [address]- 9680 Jul, [facility] [place] [facility] [address] [id number] [place] [address]- 0265 Jul, [facility] [place] [facility] [address] [id number] [place] [address]- 3416 Jul, [facility] [place] [facility] [address] [id number] [place] [address]- 9947 Jul, [facility] [place] [facility] [address] [id number] [place] [address]- 9212 Jul, [facility] [place] [facility] [address] [facility] [id number] [place] [address]- 0437 Jul, [facility] [place] [facility] [address] [id number] [place] [address]- 2477 Jul, [facility] [place] [facility] [address] [id number] [place] [address]- 1746 Jun, [facility] [place] [facility] [address] [id number] [place] [address]- 0370 Jun, [facility] [place] [facility] [address] [id number] [place] [address]- 8623 Jun, [facility] [place] [facility] [address] [id number] [place] [address]- 3888 Jun, [facility] [place] [facility] [address] [id number] [place] [address]- 1679 Jun, [facility] [place] [facility] [address] [id number] [place] [address]- 1392 Jun, [facility] [place] [facility] [address] [id number] [place] [address]- 7544 May, [facility] [place] [facility] [address] [id number] [place] [address]- 2268 May, [facility] [place] [facility] [address] [id number] [place] [address]- 4030 Apr, [facility] [place] [facility] [address] [id number] [place] [address]- 2270 Apr, [facility] [place] [facility] [address] [id number] [place] [address]- 8336 Apr, [facility] [place] [facility] [address] [id number] [place] [address]- 7299 Apr, [facility] [place] [facility] [address] [id number] [place] [address]- 0114 Apr, [facility] [place] [facility] [address] [id number] [place] [address]- 0099 Apr, [facility] [place] [facility] [address] [id number], [place] [address]- 6125 17 Apr, 2013 [facility] [place] [facility] [address] [id number] [place] [address]- 3773 15 Apr, 2013 [facility] [place] [facility] [address] [id number], [place] [address]- 1613 15 Apr, 2013 [facility] [place] [facility] [address] [id number] [place] [address]- 1099 15 Apr, 2013 [facility] [place] [facility] [address] [id number], [place] [address]- 5603 15 Apr, 2013 [facility] [place] [facility] [address] [id number] [place] [address]- 8972 Apr, [facility] [place] [facility] [address] [id number], [place] [address]- 2841 Apr, [facility] [place] [facility] [address] [id number], [place] [address]- 1848 31 Mar, 2013 [facility] [place] [facility] [address] [id number], [place] [address]- 2939 31 Mar, 2013 [facility] [place] [facility] [address] [id number], [place] [address]- 6500 25 Mar, 2013 [facility] [place] [facility] [address] [id number], [place] [address]- 1919 25 Mar, 2013 [facility] [place] [facility] [address] [id number], [place] [address]- 8166 17 Mar, 2013 [facility] [place] [facility] [address] [id number], [place] [address]- 8851 17 Mar, 2013 [facility] [place] [facility] [address] [id number], [place] [address]- 5028 14 Mar, 2013 [facility] [place] [facility] [address] [id number], [place] [address]- 7511 14 Mar, 2013 [facility] [place] [facility] [address] [id number], [place] [address]- 1163 11 Mar, 2013 [facility] [place] [facility] [address] [id number] [place] [address]- 8310 Mar, [facility] [address] [id number] [place] [address]- 0395 Mar, [facility] [place] [facility] [address] [id number] [place] [address]- 2546 30 Feb, 2013 [facility] [address] [id number] [place] [address] 28 Feb, 2013 [facility] [place] [facility] [address] [id number] [place] [address] 254 27 Feb, 2013 [facility] [address] [id number] [place] [address] 164[address] 27 Feb, 2013 [facility] [address] [id number] [place] [address] 20 Feb, 2013 [facility] [address] [id number] [place] [address] 10 Feb, 2013 [facility] [address] [id number] [place] [address] Jan, [facility] [place] [facility] [address] [id number] [place] [address] Jan, [facility] [address] [id number] [place] [address] Dec, [facility] [place] [facility] [address] [id number] [place] [address] Dec, [facility] [place] [facility] [address] [id number] [place] [address] 15 Dec, 2012 [facility] [place] [facility] [address] [id number] [place] [address] Dec, [facility] [place] [facility] [address] [id number] [place] [address] Nov, [facility] [place] [facility] [address] [id number] [place] [address] 14 Nov, 2012 [facility] [address] [id number] [place] [address] 13 Nov, 2012 [facility] [address] [id number] [place] [address] October, [facility] [address] [id number] [place] [address] October, [facility] [place] [facility] [address] [id number] [place] [address] October, [facility] [address] [id number] [place] [address] October, [facility] [address] [id number] [place] [address] October, [facility] [address] [id number] [place] [address] Sep, [facility] [address] [id number] [place] [address]- 98[address] Sep, [facility] [place] [facility] [address] [id number] [place] [address] Aug, [facility] [address] [id number] [place] [address] Aug, [facility] [place] [facility] [address] [id number] [place] [address] Aug, [facility] [place] [facility] [address] [id number] [address] Aug, [facility] [place] [facility] [address] [id number] [place] [address] 279[address] Aug, [facility] [place] [facility] [address] [id number] [place] [address] 18 Jul, 2012 [facility] [place] [facility] [address] [id number] [place] [address] Jul, [facility] [place] [facility] [address] [id number] [place] [address] 06 Jul, 2012 [facility] [address] [id number] [place] [address] 04 Jul, 2012 [facility] [address] [id number] [place] [address] Jun, [facility] [address] [id number] [place] [address] 3979 Jun, [facility] [address] [id number] [place] [address] 1737 Jun, [facility] [address] [id number] [place] [address] 6[address] Jun, [facility] [address] [id number] [place] [address] Jun, [facility] [address] [id number] [place] [address] 1797 Jun, [facility] [address] [id number] [place] [address]366 Jun, [facility] [address] [id number] [place] [address]- 8[address] Jun, [facility] [address] [id number] [place] [address] 1468 Jun, [facility] [address] [id number] [place] [address] 6837 Jun, [facility] [address] [id number] [place] [address]- 7585 Jun, [facility] [address] [id number] [place] [address] 89[address] May, [facility] [address] [id number] [place] [address] 7583 May, [facility] [address] [id number] [place] [address]65 Apr, [facility] [place] [facility] [address] [id number] [place] [address] 75[address] Apr, [facility] [place] [facility] [address] [id number] [place] [address] Mar, [facility] [place] [facility] [address] [id number] [place] [address] 6642 Mar, [facility] [place] [facility] [address] [id number] [place] [address]- 1783 Mar, [facility] [place] [facility] [address] [id number] [place] [address]- 2438 Mar, [facility] [place] [facility] [address] [id number] [place] [address] 6892 Mar, [facility] [place] [facility] [address] [id number] [place] [address]229 Mar, [facility] [place] [facility] [address] [id number] [place] [address]- [address]117 Mar, [facility] [place] [facility] [address] [id number] [place] [address] 1941 Mar, [facility] [place] [facility] [address] [id number] [place] [address] 37[address] Mar, [facility] [place] [facility] [address] [id number] [place] [address] 0981 Feb, [facility] [place] [facility] [address] [id number] [place] [address] 0246 Jan, [facility] [place] [facility] [address] [id number] [place] [address]- 1379 Jan, [facility] [place] [facility] [address] [id number] [place] [address]- 2286 Dec, [facility] [place] [facility] [address] [id number] [place] [address]- 2546 Dec, [facility] [place] [facility] [address] [id number] [place] [address]- 5646 Dec, [facility] [address] [id number] [place] [address]- 9817 Nov, [facility] [place] [facility] [address] [id number] [place] [address]- 7226 Nov, [facility] [place] [facility] [address] [facility] [id number] [place] [address]- 8139 Nov, [facility] [place] [facility] [address] [id number] [place] [address]- 9545 Nov, [facility] [place] [facility] [address] [id number] [place] [address]- 6857 October, [facility] [place] [facility] [address] [id number] [place] [address]- 9983 October, [facility] [place] [facility] [address] [facility] [id number] [place] [address]- 5633 Sep, [facility] [place] [facility] [address] [id number] [place] [address]- 9047 Sep, [facility] [place] [facility] [address] [id number] [place] [address]- 9639 Aug, [facility] [place] [facility] [address] [id number] [place] [address]- 7767 Jul, [facility] [place] [facility] [address] [id number] [place] [address]- 0380 Jul, [facility] [place] [facility] [address] [id number] [place] [address]- 1[address] Jul, [facility] [place] [facility] [address] [id number] [place] [place] [address] Jul, [facility] [place] [facility] [address] [id number] [place] [address] Jun, [facility] [place] [facility] [address] [id number] [place] [address] May, [facility] [place] [facility] [address] [id number] [place] [address] 15 May, 2011 [facility] [place] [facility] [address] [id number] [place] [address] 15 May, 2011 [facility] [place] [facility] [address] [id number] [place] [address] 13 May, 2011 [facility] [place] [facility] [address] [id number] [place] [address] 08 May, 2011 [facility] [place] [facility] [address] [id number] [place] [address] 14 Apr, 2011 [facility] [place] [facility] [address] [id number] [place] [address] 14 Apr, 2011 [facility] [place] [facility] [address] [id number] [place] [address] 14 Apr, 2011 [facility] [place] [facility] [address] [id number] [place] [address] 07 Apr, 2011 [facility] [place] [facility] [address] [id number] [place] [address] 02 Apr, 2011 [facility] [place] [facility] [address] [id number] [place] [address] 26 Mar, 2011 [facility] [place] [facility] [address] [id number] [place] [address] 25 Mar, 2011 [facility] [place] [facility] [address] [id number] [place] [address] 14 Mar, 2011 [facility] [place] [facility] [address] [id number] [place] [address] 14 Mar, 2011 [facility] [place] [facility] [address] [id number] [place] [address] 13 Mar, 2011 [facility] [place] [facility] [address] [id number] [place] [address] 11 Mar, 2011 [facility] [place] [facility] [address] [id number] [place] [address] Mar, [facility] [id number] [address] 11 Mar, 2011 [facility] [id number] [address] 14 Feb, 2011 [facility] [id number], [place] [address] May, [facility] [id number] [address] May, [facility] [id number] [address] May, [facility] [id number] [address] Apr, [facility] [id number] [address] Mar, IMMUNIZATIONS No Known Immunizations SOCIAL HISTORY Never Assessed REASON FOR VISIT PALS-latuda PLAN OF CARE VITAL SIGNS MEDICATIONS Medication Instructions Dosage Frequency Start Date End Date Duration Status Latuda 40 MG Orally Once a day with at least 350 calories 1 tablet October 90 days Active RESULTS No Results PROCEDURES [...]
--- OUTSIDE RECORDS SUMMARY | 2018-08-19 09:26 | XMS REPORT ---
Author Author CURTIS GLENN Organization [facility] Address [address] [place] [address] Care Team Providers Care Rn Integrity Name Role Phone HARSHSALVADOR GLENN Unavailable PROBLEMS Type Condition ICD9-CM Code [id number] Code Onset Dates Condition Status SNOMED Code Problem Mixed hyperlipidemia E78.2 Active 147936531 Problem Vitamin D deficiency E55.9 Active 91232786 Problem Essential hypertension I10 Active 42447494 Problem Mild intermittent asthma without complication J45.20 Active 066022998 Problem Generalized anxiety disorder F41.1 Active 84704771 Problem Gastroesophageal reflux disease, esophagitis presence not specified K21.9 Active 378732748 Problem Bipolar disorder, current episode mixed, moderate F31.62 Active 551776462 Problem Bipolar disorder F31.9 Active 64810505 Problem Panic disorder F41.0 Active 363365096 Problem Low back pain with sciatica, sciatica laterality unspecified, unspecified back pain laterality, unspecified chronicity M54.40 Active 377404271 Problem Acute right-sided low back pain with right-sided sciatica M54.41 Active 53465013 Problem Excessive thirst R63.1 Active 69455711 Problem Concussion without loss of consciousness, initial encounter S06.0X0A Active 88827763 Problem Primary insomnia F51.01 Active 259834361 Problem Anxiety F41.9 Active 68694086 Problem Hematuria R31.9 Active 13277473 Problem Hot flashes R23.2 Active 502120328 Problem Multiple fractures T07.XXXA Active 643497421 Problem Nausea R11.0 Active 508683997 Problem Hospital discharge follow-up Z09 Active 560026078 Problem Breast tenderness N64.4 Active 11153082 Problem Depression F32.9 Active 44540862 Problem Hidradenitis suppurativa L73.2 Active 39948692 Problem History of IBS Z87.19 Active 45584316616076 Problem Localized edema R60.0 Active 301845975 Problem Posttraumatic stress disorder F43.10 Active 92220293 Problem Genital herpes simplex, unspecified site A60.00 Active 34089793 Problem Tobacco use Z72.0 Active 674461599 ALLERGIES No Information ENCOUNTERS Encounter Location Date Diagnosis [place] [id number] [place] [address] 89453- 0469 Jan, Panic disorder F41.0 [place] [address] [place] [id number] [place] [address] 17480- 5635 Dec, Diaphoresis R61 and Excessive thirst R63.1 [place] [address] [id number] [place] [address] 86209- 1558 Dec, Panic disorder F41.0 ; Bipolar disorder, current episode mixed, moderate F31.62 and Generalized anxiety disorder F41.1 [place] [id number] [place] [address] 58679- 4284 Dec, Panic disorder F41.0 [place] [address] [place] [id number] [place] [address] 21243- 5880 Nov, Panic disorder F41.0 [place] [address] [place] [id number] [place] [address] 89408- 9831 Nov, Panic disorder F41.0 ; Generalized anxiety disorder F41.1 and Bipolar disorder, current episode mixed, moderate F31.62 [place] [address], [place] [address] 8575 Nov, Panic disorder F41.0 [place] [id number] [place] [address] 38915- 5100 Nov, Panic disorder F41.0 [place] [address] [place] [id number] [place] [address] 63616- 2247 October, Panic disorder F41.0 [place] [address] [place] [id number] [place] [address] 91582- 6795 October, Panic disorder F41.0 ; Generalized anxiety disorder F41.1 and Bipolar disorder, current episode mixed, moderate F31.62 [place] [address] [place] [id number] [place] [address] 57036- 5010 October, Panic disorder F41.0 [place] [address] 84670- 3625 Sep, Hospital discharge follow-up Z09 ; Concussion without loss of consciousness, initial encounter S06.0X0A and Nausea R11.[address] 84256- 9943 Sep, [place] [address] 33927- 2483 Sep, Panic disorder F41.[address] 02490- 3665 Sep, [place] [address] [place] [id number] [place] [address] 39729- 4356 Sep, Well woman exam with routine gynecological exam Z01.419 ; Multiple fractures T07.XXXA ; Hot flashes R23.2 ; Essential hypertension I10 ; Mixed hyperlipidemia E78.2 ; Genital herpes simplex, unspecified site A60.00 ; Alkaline phosphatase elevation R74.8 ; Dysuria R30.0 ; Vitamin D deficiency E55.9 ; Tobacco use Z72.0 ; High risk sexual behavior Z72.51 and Encounter for immunization Z23 [place] [id number] [place] [address] 10487- 1247 Aug, Panic disorder F41.0 ; Generalized anxiety disorder F41.1 and Bipolar disorder, current episode mixed, moderate F31.62 [place] [address] [place] [id number] [place] [address] 80382- 5054 Aug, [place] [id number] [place] [address] 60774- 5368 Jul, Panic disorder F41.0 ; Generalized anxiety disorder F41.1 and Bipolar disorder, current episode mixed, moderate F31.62 [place] [address] [place] [id number] [place] [address] 88850- 7610 Jul, [facility] [id number] [place] [address] 26521- 4516 Jul, [facility] [address] [place] [id number] [place] [address] 55114- 5892 Jul, Effusion, right knee M25.461 ; Acute pain of right knee M25.561 and Acute pain of left knee M25.562 [facility] [address] [place] [id number] [place] [address] 45565- 4054 Jun, Bipolar disorder, current episode mixed, moderate F31.62 ; Generalized anxiety disorder F41.1 and Panic disorder F41.0 [facility] [address] [place] [id number] [place] [address] 37373- 6610 May, Bipolar disorder, current episode mixed, moderate F31.62 ; Generalized anxiety disorder F41.1 and Panic disorder F41.0 [facility] [address] [place] [id number] [place] [address] 64815- 0416 May, Bipolar disorder, current episode mixed, moderate F31.62 [facility] [address] [place] [id number] [place] [address] 59624- 5739 May, Bipolar disorder, current episode mixed, moderate F31.62 [facility] [address] [place] [address] 02149- 4534 Apr, Bipolar disorder, current episode mixed, moderate F31.62 ; Generalized anxiety disorder F41.1 and Panic disorder F41.0 [facility] [address], [place] [address]- 5443 Mar, [facility] [id number] [place] [address] 49099- 9110 Mar, Bipolar disorder, current episode mixed, moderate F31.62 ; Generalized anxiety disorder F41.1 and Panic disorder F41.0 [facility] [address], [place] [address]- 7806 Feb, [facility] [address] [place] [id number] [place] [address] 00303- 6789 22 Feb, 2017 Posttraumatic stress disorder F43.10 [facility] [address] [place] [id number] [place] [address] 29468- 2787 20 Feb, 2017 Gastroesophageal reflux disease, esophagitis presence not specified K21.9 [facility] [address] [place] [id number] [place] [address] 62302- 7690 13 Feb, 2017 [facility] [address] 23704- 3984 06 Feb, 2017 Knee pain, right anterior M25.561 [place] [address] 56971- 9926 05 Feb, 2017 HSV (herpes simplex virus) infection B00.9 [place] [address] [place] [id number] [place] [address] 84195- 4316 Feb, [place] [address] [place] [id number] [place] [address] 82288- 0035 Jan, [place] [address] [place] [id number] [place] [address] 34889- 7331 Jan, Posttraumatic stress disorder F43.10 [place] [address] [place] [id number] [place] [address] 84793- 8230 Jan, Foot pain, left M79.672 [place] [address] [place] [id number] [place] [address] 25156- 4404 Jan, [facility] [address] [place] [id number] [place] [address] 88476- 254 Jan, Lumbar radiculopathy, acute M54.16 ; Muscle spasm of back M62.830 and Right hip pain M25.551 [place] [address] [place] [id number] [place] [address] 13819- 5789 Jan, Lumbar radiculopathy, acute M54.16 [place] [address] [place] [id number] [place] [address] 33417- 3997 Jan, [facility] [address] [address]- 9875 Jan, [facility] [address] [place] [id number] [place] [address] 05934- 4257 Dec, Lumbar radiculopathy, acute M54.16 ; Acute renal insufficiency N28.9 and Muscle spasm of back M62.830 [facility] [address] [place] [id number] [place] [address] 10217- 3391 Dec, [facility] [address] [place] [id number] [place] [address] 12575- 6645 Dec, [facility] [address] [place] [id number] [place] [address] 73720- 1962 Dec, [facility] [address] [place] [id number] [place] [address] 16030 -6849 Dec, Low back pain with sciatica, sciatica laterality unspecified, unspecified back pain laterality, unspecified chronicity M54.40 and Acute right-sided low back pain with right-sided sciatica M54.41 [facility] [address] [place] [id number] [place] [address] 95668- 8142 Dec, Posttraumatic stress disorder F43.10 [facility] [address] [place] [id number] [place] [address] 18666- 1906 Dec, [facility] [address] [place] [id number] [place] [address] 57683- 8091 Dec, Pain in right thigh M79.651 and Acute right-sided low back pain without sciatica M54.5 [facility] [address] [place] [id number] [place] [address] 58604- 2975 Dec, Posttraumatic stress disorder F43.10 and Major depressive disorder, recurrent episode with anxious distress F33.9 [facility] [address], [place] [address] -5828 Dec, [facility] [id number] [address]- 8469 Nov, [facility] [address] [place] [id number] [place] [address] 02066- 4755 October, [facility] [address] [place] [id number] [place] [address] 93696- 6692 October, [facility] [address] [place] [id number] [place] [address] 78283- 2713 October, Knee pain, right anterior M25.561 [facility] [address] [place] [id number] [place] [address] 98650- 7566 October, Knee pain, right anterior M25.561 [facility] [address] [place] [id number] [place] [address] 02353- 2383 October, [facility] [address] [place] [id number] [place] [address] 49768- 6794 October, [facility] [address] [place] [id number] [place] [address] 44192- 1490 October, [facility] [id number] [place] [address] 83231 -6320 Sep, [facility] [address] [place] [id number] [place] [address] 32342- 7696 Sep, [facility] [id number] [place] [address] 29593- 2154 Sep, Essential hypertension I10 [facility] [id number] [address]- 4633 Sep, Essential hypertension I10 [facility] [id number] [place] [address] 30494- 0477 Sep, [facility] [address] [place] [id number] [place] [address] 73023- 3738 Sep, Posttraumatic stress disorder F43.10 and Major depressive disorder, recurrent episode with anxious distress F33.9 [facility] [address] [place] [id number] [place] [address] 47777- 2145 Sep, Multiple fractures T14.8 ; Alkaline phosphatase elevation R74.8 and Vitamin D deficiency E55.9 [place] [address] [place] [id number] [place] [address] 33871- 8059 Sep, [place] [address] [place] [id number] [place] [address] 91678- 1068 Sep, Elevated serum creatinine R79.89 ; Fracture of foot, left, closed, initial encounter S92.902A and Alkaline phosphatase elevation R74.8 [place] [address] 08662- 9871 Sep, Elevated serum creatinine R79.89 and Essential hypertension I10 [place] [address] [place] [id number] [place] [address] 29082- 0696 Sep, [place] [address] 93866- 9507 Aug, Gastroesophageal reflux disease, esophagitis presence not specified K21.9 [place] [address] 94166- 0448 Aug, Essential hypertension I10 ; Fracture of foot, left, closed , initial encounter S92.902A and Alkaline phosphatase elevation R74.8 [place] [address] [place] [id number] [place] [address] 38239- 7925 Jul, Genital herpes simplex, unspecified site A60.00 [place] [address] [place] [id number] [place] [address] 04759- 5323 Jul, Essential hypertension I10 [place] [address] [place] [id number] [place] [address] 65884- 2952 Jun, Cough R05 and Wheezing R06.2 [place] [address] [place] [id number] [place] [address] 00246- 1141 Jun, Essential hypertension I10 [place] [address] 24112- 0257 May, Essential hypertension I10 [facility] [address] [place] [address] 46525- 0242 14 May, 2016 Posttraumatic stress disorder F43.10 and Major depressive disorder, recurrent episode with anxious distress F33.9 [facility] [address], [place] [address]- 5649 Apr, [facility] [address] [place] [id number] [place] [address] 62132- 4271 Apr, [facility] [address] [place] [id number] [place] [address] 11382- 0390 Apr, [facility] [address] [place] [id number] [place] [address] 87591- 0650 Mar, [facility] [address] [place] [id number] [place] [address] 95071- 9834 Feb, [facility] [address] [place] [id number] [place] [address] 83761- 9365 Jan, [facility] [address] [place] [id number] [place] [address] 19872- 3693 Jan, Essential hypertension I10 ; Mixed hyperlipidemia E78.2 ; Gastroesophageal reflux disease, esophagitis presence not specified K21.9 ; Mild intermittent asthma without complication J45.20 ; Hidradenitis suppurativa L73.2 ; Migraine without status migrainosus, not intractable, unspecified migraine type G43.909 ; Genital herpes simplex, unspecified site A60.00 and Closed traumatic minimally displaced fracture of metatarsal bone of left foot S92.302A [facility] [address], [place] [address] -2870 Jan, Localized edema R60.0 [facility] [address] [place] [id number] [place] [address] 46291- 3381 Dec, [facility] [address] [place] [id number] [place] [address] 46640- 5076 Dec, [facility] [address] [place] [id number] [place] [address] 61199- 9675 Dec, [facility] [address] [place] [id number] [place] [address] 59821 -7844 Dec, Cough R05 ; Tobacco dependence F17.200 and Costochondritis , acute M94.0 [facility] [address] [place] [id number] [place] [address] 50927- 2609 Dec, Major depression, recurrent F33.9 ; Bipolar disorder, unspecified F31.9 and Posttraumatic stress disorder F43.10 [facility] [address] [place] [id number] [place] [address] 02544- 2225 Nov, [facility] [address] 85116- 9561 Nov, [facility] [address] 39497- 2182 October, [facility] [address] 03363 -7972 October, Acute upper respiratory infection, unspecified J06.9 [facility] [address] [place] [id number] [place] [address] 66797- 8510 October, [facility] [address] [place] [id number] [place] [address] 09944- 4755 Sep, Bipolar affective disorder, remission status unspecified F31.9 and Post-traumatic stress disorder F43.10 [facility] [address] [place] [id number] [place] [address] 05016- 7682 Sep, Bipolar disorder, unspecified F31.9 ; Posttraumatic stress disorder F43.10 and Major depression, recurrent F33.9 [place] [address] 48224- 7499 16 Aug, 2015 Edema R60.9 ; Fatigue R53.83 and Polydipsia R63.1 [place] [address] [place] [id number] [place] [address] 07087- 4916 Aug, [place] [address], [place] [address]- 4541 Aug, [facility] [id number] [place] [address] 84318- 5761 Jul, [facility] [id number] [place] [address] 98278- 4558 Jul, [facility] [address] [place] [id number] [place] [address] 43944- 6837 Jun, [facility] [address] [place] [id number] [place] [address] 30061- 9389 Jun, [place] [address] [id number] [place] [address] 30285- 9776 Jun, [facility] [address] [id number] [place] [address] 63937- 6381 Jun, [facility] [address] [place] [id number] [place] [address] 36398- 9119 May, Mixed hyperlipidemia E78.2 [place] [address] [place] [id number] [place] [address] 44340- 1240 May, Well woman exam Z01.419 ; History of herpes simplex infection Z86.19 ; Papanicolaou smear Z12.4 ; History of depression Z86.59 ; History of anxiety Z86.59 ; Lipoma of other specified sites D17.79 ; Hidradenitis suppurativa L73.2 ; Routine screening for STI (sexually transmitted infection) Z11.3 and Tobacco use Z72.0 [place] [id number] [place] [address] 90613- 4420 May, Hematuria R31.9 ; Essential hypertension I10 ; Pure hypercholesterolemia E78.0 and Hidradenitis L73.2 [place] [id number] [place] [address] 29405- 7022 May, Upper respiratory symptom R09.89 and Allergic rhinitis J30.9 [place] [address] [id number] [place] [address] 12079- 8933 May, [facility] [id number] [place] [address] 66236- 9486 May, [facility] [id number] [place] [address] 93478- 8810 May, Bipolar disorder, unspecified F31.9 ; Posttraumatic stress disorder F43.10 and Major depression, recurrent F33.9 [facility] [id number] [place] [address] 07679- 5288 May, [facility] [id number] [place] [address] 92342- 2124 May, [facility] [id number] [place] [address] 66612- 8344 Apr, [facility] [id number] [place] [address] 01655- 0225 Apr, [facility] [id number] [place] [address] 86917- 6334 Mar, [facility] [id number] [place] [address] 93442- 3835 Mar, [facility] [id number] [place] [address] 74065- 5679 Mar, [facility] [id number] [place] [address] 11246- 8587 18 Feb, 2015 Major depressive disorder, recurrent episode, moderate 296.32 and Post traumatic stress disorder (PTSD) 309.81 [facility] [address], [place] [address]- 6272 10 Feb, 2015 [facility] [id number] [place] [address] [phone] 08 Feb, 2015 [facility] [id number] [place] [address] [phone] Jan, Cough 786.2 [facility] [id number] [place] [address] [phone] Jan, Depression, major, recurrent, moderate 296.32 and Post traumatic stress disorder (PTSD) 309.81 [facility] [id number] [phone] Jan, [facility] [id number] [place] [address] [phone] Dec, [facility] [id number] [place] [address] [phone] Dec, Generalized anxiety disorder 300.02 and Depression, major, recurrent, moderate 296.32 [facility] [id number] [place] [address] [phone] Dec, [facility] [id number] [place] [address] [phone] Dec, High risk medication use V58.69 [facility] [id number] [place] [address] [phone] Dec, High risk medication use V58.69 [facility] [id number] [place] [address] [phone] Dec, [facility] [id number] [place] [phone]- [phone] Nov, Generalized anxiety disorder 300.02 and Major depressive disorder, recurrent episode, moderate 296.32 [facility] [id number] [place] [address] [id number] Nov, Dental examination V72.2 [facility] [id number] [place] [address] [id number] Nov, Dental examination V72.2 [facility] [id number] [place] [address] 15060015- 9726 Nov, [facility] [id number] [place] [address] [id number] Nov, Dental examination V72.2 [facility] [id number] [place] [address] [id number] Nov, Dental examination V72.2 [facility] [id number] [address] October, Major depressive disorder, recurrent episode, moderate 296.32 and Generalized anxiety disorder 300.02 [facility] [id number], [place] [address] 27[address] October, [facility] [address] [id number] [address] October, [facility] [address] [id number], [place] [address] 5796 October, [facility] [id number] [place] [address]- 0076 Sep, [facility] [id number], [place] [address] 8[address] Sep, [facility] [address], [place] [address] 7666 Aug, [facility] [address], [place] [address] 3266 Aug, [facility] [address], [place] [address] 4396 Aug, [facility] [address], [place] [address]- 7006 Aug, [facility] [address] [id number], [place] [address] Aug, [facility] [address] [id number], [place] [address] 2546 Aug, [facility] [address], [place] [address]- 2546 Aug, [facility] [address] [id number], [place] [address] 2546 16 Jul, 2014 [facility] [address] [id number] [place] [address]- 1176 16 Jul, 2014 [facility] [place] [facility] [address] [id number] [place] [address]- 0816 Jul, 2014 [facility] [place] [facility] [address] [id number] [place] [address]- 2546 Jul, 2014 [facility] [place] [facility] [address] [id number] [place] [address]- 9376 Jul, 2014 [facility] [place] [facility] [address] [id number] [place] [address]- 9271 Jul, 2014 [facility] [place] [facility] [address] [id number] [place] [address]- 8991 Jul, 2014 [facility] [place] [facility] [address] [facility] [id number] [place] [address]- 8682 Jul, 2014 [facility] [place] [facility] [address] [facility] [place] [id number] [place] [address]- 2065 Jul, 2014 [facility] [place] [facility] [address] [id number] [place] [address]- 0377 Jun, [facility] [place] [facility] [address] [facility] [id number] [place] [address]- 3870 Jun, [facility] [place] [facility] [address] [facility] [id number] [place] [address]- 9256 Jun, [facility] [place] [facility] [address] [facility] [id number] [place] [address]- 6546 Jun, [facility] [place] [facility] [address] [id number] [place] [address] 2541 Jun, [facility] [place] [facility] [address] [id number] [place] [address]- 9989 Jun, [facility] [place] [facility] [address] [facility] [id number] [place] [address]- 2222 Jun, [facility] [place] [facility] [address] [facility] [id number] [place] [address]- 3002 Jun, [facility] [place] [facility] [address] [id number] [place] [address]- 5340 Jun, [facility] [place] [facility] [address] [id number] [place] [address]- 1810 Jun, [facility] [place] [facility] [address] [id number] [place] [address]- 1507 Jun, [facility] [place] [facility] [address] [id number] [place] [address]- 9484 Jun, [facility] [place] [facility] [address] [id number] [place] [address]- 7873 Jun, [facility] [place] [facility] [address] [id number] [place] [address]- 9973 Jun, [facility] [place] [facility] [address] [id number] [place] [address]- 3261 Jun, [facility] [place] [facility] [address] [id number] [place] [address]- 8130 Jun, [facility] [place] [facility] [address] [id number] [place] [address]- 8719 Jun, [facility] [place] [facility] [address] [id number] [place] [address]- 2926 Jun, [facility] [place] [facility] [address] [id number] [address]- 3661 Jun, [facility] [place] [facility] [address] [id number], [place] [address]- 0250 Jun, [facility] [place] [facility] [address] [id number] [place] [address]- 4913 Jun, [facility] [place] [facility] [address] [id number], [place] [address]- 7256 Jun, [facility] [place] [facility] [address] [id number] [place] [address]- 0308 Jun, [facility] [place] [facility] [address] [id number] [place] [address]- 6288 05 Jun, 2014 [facility] [address] [id number] [place] [address]- 7651 Jun, [facility] [place] [facility] [address] [id number] [place] [address]- 6056 May, [facility] [place] [facility] [address] [id number] [place] [address]- 8306 May, [facility] [place] [facility] [address] [id number] [place] [address]- 0969 May, [facility] [place] [facility] [address] [id number] [place] [address]- 5634 May, [facility] [place] [facility] [address] [id number] [place] [address]- 1139 May, [facility] [place] [facility] [address] [id number] [place] [address]- 0324 May, [facility] [place] [facility] [address] [id number] [place] [address]- 9602 May, [facility] [place] [facility] [address] [id number] [place] [address]- 4317 May, [facility] [place] [facility] [address] [id number] [place] [address]- 5846 May, [facility] [place] [facility] [address] [id number] [place] [address]- 0988 May, [facility] [place] [facility] [address] [id number] [place] [address]- 7181 May, [facility] [place] [facility] [address] [id number] [place] [address]- 4954 May, [facility] [place] [facility] [address] [id number] [place] [address]- 9087 May, [facility] [place] [facility] [address] [id number] [place] [address]- 0343 May, [facility] [place] [facility] [address] [id number] [place] [address]- 5732 May, [facility] [place] [facility] [address] [id number] [place] [address]- 1637 May, [facility] [place] [facility] [address] [id number] [place] [address]77 May, [facility] [place] [facility] [address] [id number] [place] [address]- 6614 May, [facility] [place] [facility] [address] [id number] [place] [address]- 8967 Apr, [facility] [place] [facility] [address] [id number] [place] [address]- 4762 Apr, [facility] [place] [facility] [address] [id number] [place] [address]- 5351 Apr, [facility] [place] [facility] [address] [id number] [place] [address]- 0685 Apr, [facility] [place] [facility] [address] [id number] [place] [address]- 1103 Apr, [facility] [place] [facility] [address] [id number] [place] [address]- 0873 Apr, [facility] [place] [facility] [address] [id number] [place] [address]- 1872 Apr, [facility] [place] [facility] [address] [id number] [place] [address]- 9773 Apr, [facility] [place] [facility] [address] [id number] [place] [address]- 8908 Mar, [facility] [place] [facility] [address] [id number] [place] [address]- 3339 Mar, [facility] [place] [facility] [address] [id number] [place] [address]- 5741 Feb, [facility] [place] [facility] [address] [id number] [place] [address]- 7525 Feb, [facility] [place] [facility] [address] [id number] [place] [address]- 2035 Feb, [facility] [place] [facility] [address] [id number] [place] [address]- 2269 Feb, [facility] [place] [facility] [address] [id number] [place] [address]- 4314 Feb, [facility] [place] [facility] [address] [id number] [place] [address]- 4020 Feb, [facility] [place] [facility] [address] [id number] [place] [address]- 2171 Feb, [facility] [place] [facility] [address] [id number] [place] [address]- 2674 Feb, [facility] [place] [facility] [address] [id number] [place] [address]- 7724 Feb, [facility] [place] [facility] [address] [id number] [place] [address]- 6368 Feb, [facility] [place] [facility] [address] [id number] [place] [address]- 5320 Jan, [facility] [place] [facility] [address] [id number] [place] [address]- 9458 Jan, [facility] [place] [facility] [address] [id number] [place] [address]- 8336 Jan, [facility] [place] [facility] [address] [id number] [place] [address]- 7225 Jan, [facility] [place] [facility] [address] [id number] [place] [address]- 2762 Jan, [facility] [place] [facility] [address] [id number] [place] [address]- 4561 Jan, [facility] [place] [facility] [address] [id number] [place] [address]- 8618 Jan, [facility] [place] [facility] [address] [id number] [place] [address]- 1113 Jan, [facility] [place] [facility] [address] [id number] [place] [address]- 7535 Jan, [facility] [place] [facility] [address] [id number] [place] [address]- 3212 Jan, [facility] [place] [facility] [address] [id number] [place] [address]- 9638 Jan, [facility] [place] [facility] [address] [id number] [place] [address]- 3113 Jan, [facility] [place] [facility] [address] [id number] [place] [address]- 4785 Jan, [facility] [place] [facility] [address] [id number] [place] [address]- 1761 Dec, [facility] [place] [facility] [address] [id number] [place] [address]- 8809 Dec, [facility] [place] [facility] [address] [id number] [place] [address]- 9981 Dec, [facility] [place] [facility] [address] [id number] [place] [address]- 1475 Dec, [facility] [place] [facility] [address] [id number] [place] [address]- 5893 Dec, [facility] [place] [facility] [address] [id number] [place] [address]- 7152 Dec, [facility] [place] [facility] [address] [id number] [place] [address]- 3166 Dec, [facility] [place] [facility] [address] [id number] [place] [address]- 0199 Dec, [facility] [place] [facility] [address] [id number] [place] [address]- 7637 Dec, [facility] [place] [facility] [address] [id number] [place] [address]- 0529 Dec, [facility] [place] [facility] [address] [id number] [place] [address]- 8227 Dec, [facility] [place] [facility] [address] [id number] [place] [address]- 5376 Dec, [facility] [place] [facility] [address] [id number] [place] [address]- 4869 Dec, [facility] [place] [facility] [address] [id number] [place] [address]- 1818 Dec, [facility] [place] [facility] [address] [id number] [place] [address]- 5358 Nov, [facility] [place] [facility] [address] [id number] [place] [address]- 0433 Nov, [facility] [place] [facility] [address] [id number] [place] [address]- 3807 Nov, [facility] [place] [facility] [address] [id number] [place] [address]- 6270 Nov, [facility] [place] [facility] [address] [id number] [place] [address]- 9730 Nov, [facility] [place] [facility] [address] [id number] [place] [address]- 1655 Nov, [facility] [place] [facility] [address] [id number] [place] [address]- 7044 Nov, [facility] [place] [facility] [address] [id number] [place] [address]- 4597 Nov, [facility] [place] [facility] [address] [id number] [place] [address]- 8137 October, [facility] [place] [facility] [address] [id number] [place] [address]- 1739 October, [facility] [place] [facility] [address] [id number] [place] [address]- 7984 October, [facility] [place] [facility] [address] [id number] [place] [address]- 6046 October, [facility] [address] [id number] [place] [address]- 0559 October, [facility] [place] [facility] [address] [id number] [place] [address]- 3549 October, [facility] [place] [facility] [address] [id number] [place] [address]- 4140 October, [facility] [place] [facility] [address] [id number] [place] [address]- 3193 October, [facility] [place] [facility] [address] [id number] [place] [address]- 1688 October, [facility] [place] [facility] [address] [id number] [place] [address]- 1542 October, [facility] [place] [facility] [address] [id number] [place] [address]- 5586 October, [facility] [place] [facility] [address] [id number] [place] [address]- 2870 October, [facility] [place] [facility] [address] [id number] [place] [address]- 7168 October, [facility] [place] [facility] [address] [id number] [place] [address]- 3430 October, [facility] [place] [facility] [address] [id number] [place] [address]- 8178 October, [facility] [place] [facility] [address] [id number] [place] [address]- 3054 October, [facility] [place] [facility] [address] [id number] [place] [address]- 7037 Sep, [facility] [place] [facility] [address] [id number] [place] [address]- 1923 Sep, [facility] [place] [facility] [address] [id number] [place] [address]- 9404 Sep, [facility] [place] [facility] [address] [id number] [place] [address]- 8892 Sep, [facility] [place] [facility] [address] [id number] [place] [address]- 7794 Sep, [facility] [place] [facility] [address] [id number] [place] [address]- 0725 Sep, [facility] [place] [facility] [address] [id number] [place] [address]- 9044 Sep, [facility] [place] [facility] [address] [id number] [place] [address]- 5768 Sep, [facility] [place] [facility] [address] [id number] [place] [address]- 9932 Sep, [facility] [place] [facility] [address] [id number] [place] [address]- 6412 Sep, [facility] [place] [facility] [address] [id number] [place] [address]- 6739 Sep, [facility] [place] [facility] [address] [id number] [place] [address]- 1820 Sep, [facility] [place] [facility] [address] [id number] [place] [address]- 7683 Sep, [facility] [place] [facility] [address] [id number] [place] [address]- 7890 Sep, [facility] [place] [facility] [address] [id number] [place] [address]- 4524 Sep, [facility] [place] [facility] [address] [id number] [place] [address]- 3582 Sep, [facility] [place] [facility] [address] [id number] [place] [address]- 3232 Sep, [facility] [place] [facility] [address] [id number] [place] [address]- 2067 Sep, [facility] [place] [facility] [address] [id number] [place] [address]- 4507 Sep, [facility] [place] [facility] [address] [id number] [place] [address]- 4713 Aug, [facility] [place] [facility] [address] [id number] [place] [address]- 3510 Aug, [facility] [place] [facility] [address] [id number] [place] [address]- 6141 Aug, [facility] [place] [facility] [address] [id number] [place] [address]- 4564 Aug, [facility] [place] [facility] [address] [id number] [place] [address]- 8832 Jul, [facility] [place] [facility] [address] [id number] [place] [address]- 4928 Jul, [facility] [place] [facility] [address] [id number] [place] [address]- 4672 Jul, [facility] [place] [facility] [address] [id number] [place] [address]- 1004 Jul, [facility] [place] [facility] [address] [id number] [place] [address]- 1182 Jul, [facility] [place] [facility] [address] [id number] [place] [address]- 2618 Jul, [facility] [place] [facility] [address] [id number] [place] [address]- 7102 Jul, [facility] [place] [facility] [address] [id number] [place] [address]- 1289 Jul, [facility] [place] [facility] [address] [id number] [place] [address]- 8444 Jul, [facility] [place] [facility] [address] [id number] [place] [address]- 9059 Jul, [facility] [place] [facility] [address] [facility] [id number] [place] [address]- 5505 Jul, [facility] [place] [facility] [address] [id number] [place] [address]- 9321 Jul, [facility] [place] [facility] [address] [id number] [place] [address]- 8146 Jun, [facility] [place] [facility] [address] [id number] [place] [address]- 3432 Jun, [facility] [place] [facility] [address] [id number] [place] [address]- 3892 Jun, [facility] [place] [facility] [address] [id number] [place] [address]- 6578 Jun, [facility] [place] [facility] [address] [id number] [place] [address]- 6557 Jun, [facility] [place] [facility] [address] [id number] [place] [address]- 5559 Jun, [facility] [place] [facility] [address] [id number] [place] [address]- 8118 May, [facility] [place] [facility] [address] [id number] [place] [address]- 7556 May, [facility] [place] [facility] [address] [id number] [place] [address]- 7371 Apr, [facility] [place] [facility] [address] [id number] [place] [address]- 7854 Apr, [facility] [place] [facility] [address] [id number] [place] [address]- 1423 Apr, [facility] [place] [facility] [address] [id number] [place] [address] Apr, [facility] [place] [facility] [address] [id number] [place] [address] Apr, [facility] [place] [facility] [address] [id number] [place] [address] Apr, [facility] [place] [facility] [address] [id number], [place] [address] 17 Apr, 2013 [facility] [place] [facility] [address] [id number] [place] [address] 8933 15 Apr, 2013 [facility] [place] [facility] [address] [id number][place] [address] 43[address] 15 Apr, 2013 [facility] [place] [facility] [address] [id number] [place] [address] 6032 15 Apr, 2013 [facility] [place] [facility] [address] [id number], [place] [address] 15 Apr, 2013 [facility] [place] [facility] [address] [id number] [place] [address] Apr, [facility] [place] [facility] [address] [id number], [place] [address] 6[address] Apr, [facility] [place] [facility] [address] [id number], [place] [address] 31 Mar, 2013 [facility] [place] [facility] [address] [id number], [place] [address] 31 Mar, 2013 [facility] [place] [facility] [address] [id number], [place] [address]47 25 Mar, 2013 [facility] [place] [facility] [address] [id number], [place] [address] 2925 25 Mar, 2013 [facility] [place] [facility] [address] [id number], [place] [address] 1703 17 Mar, 2013 [facility] [place] [facility] [address] [id number], [place] [address]- 6829 17 Mar, 2013 [facility] [place] [facility] [address] [id number], [place] [address]- 3235 14 Mar, 2013 [facility] [place] [facility] [address] [id number], [place] [address]- 3606 14 Mar, 2013 [facility] [place] [facility] [address] [id number], [place] [address]- 4954 11 Mar, 2013 [facility] [place] [facility] [address] [id number] [place] [address] 7896 Mar, [facility] [address] [id number] [place] [address] 73[address] Mar, [facility] [place] [facility] [address] [id number] [place] [address]- 2546 30 Feb, 2013 [facility] [address] [id number] [place] [address] 28 Feb, 2013 [facility] [place] [facility] [address] [id number] [place] [address] 2545 27 Feb, 2013 [facility] [address] [id number] [place] [address]- 6487 27 Feb, 2013 [facility] [address] [id number] [place] [address]- 2142 20 Feb, 2013 [facility] [address] [id number] [place] [address] 3152 10 Feb, 2013 [facility] [address] [id number] [place] [address]97 Jan, [facility] [place] [facility] [address] [id number] [place] [address] 7512 Jan, [facility] [address] [id number] [place] [address] 4193 Dec, [facility] [place] [facility] [address] [id number] [place] [address]- 2545 Dec, [facility] [place] [facility] [address] [id number] [place] [address]- 2473 15 Dec, 2012 [facility] [place] [facility] [address] [id number] [place] [address] 3851 Dec, [facility] [place] [facility] [address] [id number] [place] [address] 5083 Nov, [facility] [place] [facility] [address] [id number] [place] [address]- 6755 14 Nov, 2012 [facility] [address] [id number] [place] [address]- 1233 13 Nov, 2012 [facility] [address] [id number] [place] [address]- 7486 October, [facility] [address] [id number] [place] [address] 8806 October, [facility] [place] [facility] [address] [id number] [place] [address]- 8936 October, [facility] [address] [id number] [place] [address]- 6581 October, [facility] [address] [id number] [place] [address]- 1156 October, [facility] [address] [id number] [place] [address]- 4745 Sep, [facility] [address] [id number] [place] [address]- 8696 Sep, [facility] [place] [facility] [address] [id number] [place] [address]- 7138 Aug, [facility] [address] [id number] [place] [address]- 5901 Aug, [facility] [place] [facility] [address] [id number] [place] [address]- 6316 Aug, [facility] [place] [facility] [address] [id number], [place] [address]- 6156 Aug, [facility] [place] [facility] [address] [id number] [place] [address]- 0076 Aug, [facility] [place] [facility] [address] [id number] [place] [address]- 6976 18 Jul, 2012 [facility] [place] [facility] [address] [id number] [place] [address]- 4556 Jul, [facility] [place] [facility] [address] [id number] [place] [address]- 8404 06 Jul, 2012 [facility] [address] [id number] [place] [address]- 8238 04 Jul, 2012 [facility] [address] [id number] [place] [address]- 9329 Jun, [facility] [address] [id number] [place] [address]- 4246 Jun, [facility] [address] [id number] [place] [address]- 7459 Jun, [facility] [address] [id number] [place] [address]- 9255 Jun, [facility] [address] [id number] [place] [address]- 0943 Jun, [facility] [address] [id number] [place] [address]- 4914 Jun, [facility] [address] [id number] [place] [address]- 8187 Jun, [facility] [address] [id number] [place] [address]- 6983 Jun, [facility] [address] [id number] [place] [address]- 8566 Jun, [facility] [address] [id number] [place] [address]- 8434 Jun, [facility] [address] [id number] [place] [address]- 5907 Jun, [facility] [address] [id number] [place] [address]- 1991 May, [facility] [address] [id number] [place] [address]- 9574 May, [facility] [address] [id number] [place] [address]- 9885 Apr, [facility] [place] [facility] [address] [id number] [place] [address]- 4736 Apr, [facility] [place] [facility] [address] [id number] [place] [address]- 4700 Mar, [facility] [place] [facility] [address] [id number] [place] [address]- 4544 Mar, [facility] [facility] [address] [id number] [place] [address] Mar, [facility] [place] [facility] [address] [id number] [place] [address] Mar, [facility] [place] [facility] [address] [id number] [place] [address] Mar, [facility] [place] [facility] [address] [id number] [place] [address] Mar, [facility] [place] [facility] [address] [id number] [place] [address] Mar, [facility] [place] [facility] [address] [id number] [place] [address] Mar, [facility] [place] [facility] [address] [id number] [place] [address] Mar, [facility] [place] [facility] [address] [id number] [place] [address] Feb, [facility] [place] [facility] [address] [id number] [place] [address] Jan, [facility] [place] [facility] [address] [id number] [place] [address] Jan, [facility] [place] [facility] [address] [id number] [place] [address] Dec, [facility] [place] [facility] [address] [id number] [place] [address] Dec, [facility] [place] [facility] [address] [id number] [place] [address] Dec, [facility] [address] [id number] [place] [address] Nov, [facility] [place] [facility] [address] [id number] [place] [address] Nov, [facility] [place] [facility] [address] [facility] [place] [id number] [place] [address] Nov, [facility] [place] [facility] [address] [id number] [place] [address] Nov, [facility] [address] [id number] [place] [address] October, [facility] [place] [facility] [address] [id number] [place] [address] October, [facility] [address] [facility] [place] [id number] [place] [address] Sep, [facility] [place] [facility] [address] [id number] [place] [address] Sep, [facility] [address] [id number] [place] [address] Aug, [facility] [place] [facility] [address] [id number] [place] [address] Jul, [facility] [address] [id number] [place] [address] Jul, [facility] [address] [id number] [place] [address] Jul, [facility] [address] [id number] [place] [address] Jul, [facility] [place] [facility] [address] [id number] [place] [address] Jun, [facility] [address] [id number] [place] [address] May, [facility] [address] [id number] [place] [address]- [address] 15 May, 2011 [facility] [place] [facility] [address] [id number] [place] [address]- [address] 15 May, 2011 [facility] [address] [id number] [place] [address]- [address] 13 May, 2011 [facility] [address] [id number] [place] [address]- [address] 08 May, 2011 [facility] [address] [id number] [place] [address]- [address] 14 Apr, 2011 [facility] [address] [id number] [place] [address] 14 Apr, 2011 [facility] [address] [id number] [place] [address] 14 Apr, 2011 [facility] [address] [id number] [place] [address] 07 Apr, 2011 [facility] [facility] [address] [id number] [place] [address]- [address] 02 Apr, 2011 [facility] [facility] [address] [id number] [place] [address]- [address] 26 Mar, 2011 [facility] [facility] [address] [id number] [place] [address] 25 Mar, 2011 [facility] [facility] [address] [id number] [place] [address] 14 Mar, 2011 [facility] [facility] [address] [id number] [place] [address]- [address] 14 Mar, 2011 [facility] [facility] [address] [id number] [place] [address]- [address] 13 Mar, 2011 [facility] [address] [id number] [place] [address]- [address] 11 Mar, 2011 [facility] [address] [id number] [place] [address] Mar, [facility] [address] [id number] [address] 11 Mar, 2011 [facility] [id number] [place] [address] Feb, [facility] [id number] [place] [address] May, [facility] [id number] [place] [address] May, [facility] [id number] [place] [address] May, [facility] [id number] [place] [address] Apr, [facility] [id number] [place] [address] Mar, IMMUNIZATIONS No Known Immunizations SOCIAL HISTORY Never Assessed REASON FOR VISIT f/Robb DOMINGUEZ PLAN OF CARE Activity Details Follow Up 4 Weeks, prn Reason: VITAL SIGNS Height 69 in 2017-10-24 Weight 251.7 lbs 2017-10-24 Heart Rate 104 bpm 2017-10-24 Respiratory Rate 20 2017-10-24 BMI 37.17 kg/m2 2017-10-24 Blood pressure systolic 124 mmHg 2017-10-24 Blood pressure diastolic 76 mmHg 2017-10-24 MEDICATIONS Medication Instructions Dosage Frequency Start Date End Date Duration Status Latuda 20 MG Orally Once a day 2 tablets with food 24h October, 30 day(s) Active Neurontin 300 MG Orally two times a day 3 capsules 12h 13 Aug, 2014 30 days Active Seroquel 50 MG Orally three times a day as needed for anxiety 1 tablet Mar, 30 days Active Effexor XR 75 MG Orally Once a day 1 capsule every morning for one week then take 2 cap every morning 24h Aug, 30 days Active Lisinopril 40 MG TAKE ONE TABLET BY MOUTH ONCE DAILY 30 Active Hydrochlorothiazide 25 MG TAKE ONE TABLET BY MOUTH IN THE MORNING 90 Active Ibuprofen 800 MG TAKE ONE TABLET BY MOUTH THREE TIMES DAILY WITH FOOD OR MILK Active Alprazolam 2 MG Orally Twice a day (part of taper dose) 1 tablet Active Acyclovir 400 mg Orally 2 times a day TAKE ONE TABLET 12h 90 Active Omeprazole 20 MG TAKE ONE CAPSULE BY MOUTH ONCE DAILY 90 Active Lovastatin 40 mg Orally Once a day 1 tablet with a meal 24h Sep, 30 day(s) Not-Taking Seroquel 100 MG Orally every bedtime 1 tablet every night for one week then take 0.5 tab every night for one week then stop May, 14 days Active ProAir HFA 108 (90 Base) MCG/ACT Inhalation every 4 hrs 2 puffs as needed 4h Jun, 1 month Active Sumatriptan Succinate 100 MG TAKE ONE TABLET BY MOUTH ONCE DAILY NEEDED MAY REPEAT IN 2 HOURS IF HEADACHE REOCCURS 14 Not-Taking Zofran 4 MG Orally Twice a day 1 tablet 12h Sep, 30 day(s) Not -Taking Cholecalciferol 400 UNIT Orally Once a day 2 tablets 24h Sep, 30 day(s) Not-Taking RESULTS No Results PROCEDURES No Known procedures [...]
--- OUTSIDE RECORDS SUMMARY | 2018-08-19 09:27 | XMS REPORT ---
Author Author CURTIS GLENN Organization [facility] Address [address] [place] [address] Care Team Providers Care Senior Advocate Name Role Phone HARSHSALVADOR GLENN Unavailable PROBLEMS Type Condition ICD9-CM Code UOP21-CR Code Onset Dates Condition Status SNOMED Code Problem Mixed hyperlipidemia E78.2 Active 424159087 Problem Vitamin D deficiency E55.9 Active 74997188 Problem Essential hypertension I10 Active 92711767 Problem Mild intermittent asthma without complication J45.20 Active 363657765 Problem Generalized anxiety disorder F41.1 Active 81237040 Problem Gastroesophageal reflux disease, esophagitis presence not specified K21.9 Active 833062574 Problem Bipolar disorder, current episode mixed, moderate F31.62 Active 108137069 Problem Bipolar disorder F31.9 Active 07479392 Problem Panic disorder F41.0 Active 405596727 Problem Low back pain with sciatica, sciatica laterality unspecified, unspecified back pain laterality, unspecified chronicity M54.40 Active 955842078 Problem Acute right-sided low back pain with right-sided sciatica M54.41 Active 89050012 Problem Excessive thirst R63.1 Active 94433507 Problem Concussion without loss of consciousness, initial encounter S06.0X0A Active 43439499 Problem Primary insomnia F51.01 Active 438298702 Problem Anxiety F41.9 Active 07611644 Problem Hematuria R31.9 Active 24257428 Problem Hot flashes R23.2 Active 394771453 Problem Multiple fractures T07.XXXA Active 716451868 Problem Nausea R11.0 Active 168604879 Problem Hospital discharge follow-up Z09 Active 759890926 Problem Breast tenderness N64.4 Active 75070830 Problem Depression F32.9 Active 45204971 Problem Hidradenitis suppurativa L73.2 Active 30777610 Problem History of IBS Z87.19 Active 92827746409817 Problem Localized edema R60.0 Active 627702722 Problem Posttraumatic stress disorder F43.10 Active 91008782 Problem Genital herpes simplex, unspecified site A60.00 Active 63582690 Problem Tobacco use Z72.0 Active 659883648 ALLERGIES No Information ENCOUNTERS Encounter Location Date Diagnosis [facility] [id number] [place] [address] 01607- 0231 Jan, [facility] [id number] [place] [address] 67874- 7022 Jan, Panic disorder F41.0 [facility] [id number] [place] [address] 32201- 7148 Dec, Diaphoresis R61 and Excessive thirst R63.1 [facility] [id number] [place] [address] 47324- 1521 Dec, Panic disorder F41.0 ; Bipolar disorder, current episode mixed, moderate F31.62 and Generalized anxiety disorder F41.1 [facility] [id number] [place] [address] 13100- 6871 Dec, Panic disorder F41.0 [facility] [id number] [place] [address] 16729- 8801 Nov, Panic disorder F41.0 [facility] [id number] [place] [address] 82375- 4562 Nov, Panic disorder F41.0 ; Generalized anxiety disorder F41.1 and Bipolar disorder, current episode mixed, moderate F31.62 [facility] [id number] [place] [address] 69331- 1604 Nov, Panic disorder F41.0 [facility] [id number] [place] [address] 55828- 6066 Nov, Panic disorder F41.0 [facility] [id number] [place] [address] 66904- 1974 October, Panic disorder F41.0 [facility] [id number] [place] [address] 90634- 7778 October, Panic disorder F41.0 ; Generalized anxiety disorder F41.1 and Bipolar disorder, current episode mixed, moderate F31.62 [place] [address] 77361- 0801 October, Panic disorder F41.0 [facility] [id number] [place] [address] 16154- 2490 Sep, Hospital discharge follow-up Z09 ; Concussion without loss of consciousness, initial encounter S06.0X0A and Nausea R11.0 [place] [address] 08127- 2833 Sep, [place] [address] 64493- 6795 Sep, Panic disorder F41.0 [place] [address] 39278- 8166 Sep, [place] [address] 43852- 0069 Sep, Well woman exam with routine gynecological exam Z01.419 ; Multiple fractures T07.XXXA ; Hot flashes R23.2 ; Essential hypertension I10 ; Mixed hyperlipidemia E78.2 ; Genital herpes simplex, unspecified site A60.00 ; Alkaline phosphatase elevation R74.8 ; Dysuria R30.0 ; Vitamin D deficiency E55.9 ; Tobacco use Z72.0 ; High risk sexual behavior Z72.51 and Encounter for immunization Z23 [facility] [facility] [id number] [place] [address] 55047- 4316 Aug, Panic disorder F41.0 ; Generalized anxiety disorder F41.1 and Bipolar disorder, current episode mixed, moderate F31.62 [facility] [id number] [place] [address] 37855- 2751 Aug, [facility] [address] 41846- 0327 Jul, Panic disorder F41.0 ; Generalized anxiety disorder F41.1 and Bipolar disorder, current episode mixed, moderate F31.62 [facility] [address], [place] [address]- 6312 Jul, [facility] [id number] [place] [address] 34388- 4346 Jul, [facility] [address], [place] [address]- 3090 Jul, Effusion, right knee M25.461 ; Acute pain of right knee M25.561 and Acute pain of left knee M25.562 [facility] [address], [place] [address]- 6411 Jun, Bipolar disorder, current episode mixed, moderate F31.62 ; Generalized anxiety disorder F41.1 and Panic disorder F41.0 [facility] [address], [place] [address]- 5780 May, Bipolar disorder, current episode mixed, moderate F31.62 ; Generalized anxiety disorder F41.1 and Panic disorder F41.0 [facility] [address] [place] [address] 77013- 8581 May, Bipolar disorder, current episode mixed, moderate F31.62 [facility] [address], [place] [address]- 9807 May, Bipolar disorder, current episode mixed, moderate F31.62 [facility] [address], [place] [address]- 5913 Apr, Bipolar disorder, current episode mixed, moderate F31.62 ; Generalized anxiety disorder F41.1 and Panic disorder F41.0 [facility] [address], [place] [address]- 8082 Mar, [facility] [address] [place] [address] 88425- 5674 Mar, Bipolar disorder, current episode mixed, moderate F31.62 ; Generalized anxiety disorder F41.1 and Panic disorder F41.0 [facility] [id number] [place] [address] 86656- 6700 27 Feb, 2017 [facility] [address] 94202- 2624 22 Feb, 2017 Posttraumatic stress disorder F43.10 [facility] [id number] [place] [address] 50847- 3480 20 Feb, 2017 Gastroesophageal reflux disease, esophagitis presence not specified K21.9 [facility] [address] 86515- 4171 13 Feb, 2017 [place] [address] 85081- 7737 06 Feb, 2017 Knee pain, right anterior M25.561 [facility] [address] 79064- 0545 05 Feb, 2017 HSV (herpes simplex virus) infection B00.9 [facility] [id number] [place] [address] 24213- 7098 05 Feb, 2017 [facility] [facility] [id number] [place] [address] 82258- 7272 Jan, [facility] [address] 69190- 1338 Jan, Posttraumatic stress disorder F43.10 [facility] [id number] [place] [address] 49800- 3221 Jan, Foot pain, left M79.672 [facility] [id number] [place] [address] 50884- 3613 Jan, [facility] [address] 16613- 4346 Jan, Lumbar radiculopathy, acute M54.16 ; Muscle spasm of back M62.830 and Right hip pain M25.551 [facility] [id number] [place] [address] 92239- 4395 Jan, Lumbar radiculopathy, acute M54.16 [facility] [address], [place] [address]- 6589 Jan, [facility] [id number] [place] [address] 07247- 7490 Jan, [facility] [id number] [place] [address] 99760- 5582 Dec, Lumbar radiculopathy, acute M54.16 ; Acute renal insufficiency N28.9 and Muscle spasm of back M62.830 [facility] [id number] [place] [address] 07703- 3668 Dec, [facility] [id number] [place] [address] 93564- 7765 Dec, [facility] [facility] [id number] [place] [address] 84437- 9732 Dec, [facility] [id number] [place] [address] 45231 -2839 Dec, Low back pain with sciatica, sciatica laterality unspecified, unspecified back pain laterality, unspecified chronicity M54.40 and Acute right-sided low back pain with right-sided sciatica M54.41 [facility] [address], [place] [address]- 3039 Dec, Posttraumatic stress disorder F43.10 [facility] [id number] [place] [address] 75161- 4588 Dec, [place] [id number] [place] [address] 33722- 9333 Dec, Pain in right thigh M79.651 and Acute right-sided low back pain without sciatica M54.5 [facility] [address], [place] [address]- 6045 Dec, Posttraumatic stress disorder F43.10 and Major depressive disorder, recurrent episode with anxious distress F33.9 [facility] [id number], [place] [address] -2896 Dec, [facility] [address], [place] [address]- 2078 Nov, [facility] [address] 6663 October, [facility] [address] 0230 October, [facility] [id number], [place] [address]- 7475 October, Knee pain, right anterior M25.561 [facility] [id number] [place] [address] 759249- 5017 October, Knee pain, right anterior M25.561 [facility] [id number], [place] [address]- 7770 October, [facility] [id number] [address]- 8312 October, [facility] [address], [place] [address]- 5727 October, [facility] [address], [place] [address] -0601 Sep, [facility] [address], [place] [address]- 9258 Sep, [facility] [address], [place] [address]- 6270 Sep, Essential hypertension I10 [facility] [id number], [place] [address]- 6147 Sep, Essential hypertension I10 [facility] [address], [place] [address]- 7286 Sep, [facility] [id number], [place] [address]- 1172 Sep, Posttraumatic stress disorder F43.10 and Major depressive disorder, recurrent episode with anxious distress F33.9 [place] [id number] [place] [address] 63497- 5699 Sep, Multiple fractures T14.8 ; Alkaline phosphatase elevation R74.8 and Vitamin D deficiency E55.9 [facility] [address] 17321- 6907 Sep, [facility] [address] 15134- 9066 Sep, Elevated serum creatinine R79.89 ; Fracture of foot, left, closed, initial encounter S92.902A and Alkaline phosphatase elevation R74.8 [facility] [address] 33661- 5494 Sep, Elevated serum creatinine R79.89 and Essential hypertension I10 [facility] [facility] [address] 45056- 1579 Sep, [place] [facility] [address] 26754- 0758 Aug, Gastroesophageal reflux disease, esophagitis presence not specified K21.9 [facility] [address] 63089- 3193 Aug, Essential hypertension I10 ; Fracture of foot, left, closed , initial encounter S92.902A and Alkaline phosphatase elevation R74.8 [facility] [facility] [address] 35960- 8482 Jul, Genital herpes simplex, unspecified site A60.00 [facility] [address] 23436- 6695 Jul, Essential hypertension I10 [facility] [facility] [address] 48512- 4962 Jun, Cough R05 and Wheezing R06.2 [place] [address] 36875- 5018 Jun, Essential hypertension I10 [facility] [address] [place] [address] 39375- 6940 May, Essential hypertension I10 [facility] [id number] [place] [address] 99147- 1101 May, Posttraumatic stress disorder F43.10 and Major depressive disorder, recurrent episode with anxious distress F33.9 [facility] [id number] [place] [address] 76388- 8761 Apr, [facility] [id number] [place] [address] 16818- 6683 Apr, [facility] [id number] [place] [address] 58268- 1830 Apr, [facility] [id number] [place] [address] 94456- 5476 Mar, [facility] [id number] [place] [address] 42548- 8680 Feb, [facility] [id number] [place] [address] 32532- 1224 Jan, [facility] [id number] [place] [address] 43741- 6395 Jan, Essential hypertension I10 ; Mixed hyperlipidemia E78.2 ; Gastroesophageal reflux disease, esophagitis presence not specified K21.9 ; Mild intermittent asthma without complication J45.20 ; Hidradenitis suppurativa L73.2 ; Migraine without status migrainosus, not intractable, unspecified migraine type G43.909 ; Genital herpes simplex, unspecified site A60.00 and Closed traumatic minimally displaced fracture of metatarsal bone of left foot S92.302A [facility] [id number] [place] [address] 55878 -3948 Jan, Localized edema R60.0 [facility] [id number] [place] [address] 61989- 4176 Dec, [facility] [id number] [place] [address] 11427- 2101 Dec, [facility] [id number] [place] [address] 90554- 1646 Dec, [facility] [id number] [place] [address] 24884 -9805 Dec, Cough R05 ; Tobacco dependence F17.200 and Costochondritis , acute M94.0 [facility] [address] 27597- 6723 Dec, Major depression, recurrent F33.9 ; Bipolar disorder, unspecified F31.9 and Posttraumatic stress disorder F43.10 [facility] [id number] [place] [address] 09294- 2769 Nov, [place] [id number] [place] [address] 54593- 0627 Nov, [facility] [id number] [place] [address] 88714- 0822 October, [facility] [id number] [place] [address] 95498 -5859 October, Acute upper respiratory infection, unspecified J06.9 [facility] [id number] [place] [address] 60162- 6644 October, [facility] [facility] [id number] [place] [address] 70348- 8416 Sep, Bipolar affective disorder, remission status unspecified F31.9 and Post-traumatic stress disorder F43.10 [facility] [id number] [place] [address] 52318- 9070 Sep, Bipolar disorder, unspecified F31.9 ; Posttraumatic stress disorder F43.10 and Major depression, recurrent F33.9 [place] [address] [place] [address] 25992- 8041 16 Aug, 2015 Edema R60.9 ; Fatigue R53.83 and Polydipsia R63.1 [place] [address], [place] [address]- 6921 Aug, [facility] [address], [place] [address]- 3304 Aug, [facility] [address], [place] [address]- 5654 Jul, [facility] [id number] [place] [address] 49440- 0762 Jul, [facility] [address] [place] [address] 95553- 0970 Jun, [facility] [id number] [place] [address] 24732- 4519 Jun, [facility] [id number] [place] [address] 63133- 1802 Jun, [facility] [id number] [place] [address] 33670- 6111 Jun, [facility] [address] [place] [address] 10018- 6297 May, Mixed hyperlipidemia E78.2 [place] [address] [place] [address] 06934- 8442 May, Well woman exam Z01.419 ; History of herpes simplex infection Z86.19 ; Papanicolaou smear Z12.4 ; History of depression Z86.59 ; History of anxiety Z86.59 ; Lipoma of other specified sites D17.79 ; Hidradenitis suppurativa L73.2 ; Routine screening for STI (sexually transmitted infection) Z11.3 and Tobacco use Z72.0 [place] [address] [place] [address] 88370- 1350 May, Hematuria R31.9 ; Essential hypertension I10 ; Pure hypercholesterolemia E78.0 and Hidradenitis L73.2 [place] [address] [place] [address] 63418- 7649 May, Upper respiratory symptom R09.89 and Allergic rhinitis J30.9 [facility] [address], [place] [address]- 7798 May, [facility] [id number] [place] [address] 73066- 3812 May, [facility] [id number] [place] [address] 74535- 0596 May, Bipolar disorder, unspecified F31.9 ; Posttraumatic stress disorder F43.10 and Major depression, recurrent F33.9 [facility] [id number] [place] [address] 20630- 3974 May, [facility] [id number] [place] [address] 18394- 2371 May, [facility] [id number] [place] [address] 80154- 1647 Apr, [facility] [id number] [place] [address] 46250- 3212 Apr, [facility] [id number] [place] [address] 86879- 8440 Mar, [facility] [id number] [place] [address] 64165- 3924 Mar, [facility] [id number] [place] [address] 53393- 1167 Mar, [facility] [id number] [place] [address] 92539- 5578 18 Feb, 2015 Major depressive disorder, recurrent episode, moderate 296.32 and Post traumatic stress disorder (PTSD) 309.81 [facility] [id number] [place] [address] 07318- 7233 10 Feb, 2015 [facility] [id number] [place] [address] 85337- 0694 08 Feb, 2015 [facility] [id number] [place] [address] 48996- 2687 Jan, Cough 786.2 [facility] [address] [place] [address] 83102- 1438 Jan, Depression, major, recurrent, moderate 296.32 and Post traumatic stress disorder (PTSD) 309.81 [facility] [address] [place] [address] 99084- 1863 Jan, [facility] [id number] [place] [address] 81467- 3730 Dec, [facility] [id number] [place] [address] 25852- 4878 Dec, Generalized anxiety disorder 300.02 and Depression, major, recurrent, moderate 296.32 [facility] [id number] [place] [address] 53360- 9186 Dec, [facility] [id number] [place] [address] 25814- 1598 Dec, High risk medication use V58.69 [facility] [id number] [place] [address] 81010- 4061 Dec, High risk medication use V58.69 [facility] [address] [place] [address] 75550- 3179 Dec, [facility] [address] [place] [address] 04456- 6804 Nov, Generalized anxiety disorder 300.02 and Major depressive disorder, recurrent episode, moderate 296.32 [facility] [address] [place] [address] [id number] Nov, Dental examination V72.2 [facility] [id number] [place] [address] [id number] Nov, Dental examination V72.2 [facility] [address] [place] [address] 29128- 7066 Nov, [facility] [id number] [place] [address] [id number] Nov, Dental examination V72.2 [facility] [address] [id number] [id number] Nov, Dental examination V72.2 [facility] [address] [facility] [id number], [place] [address]- 8776 October, Major depressive disorder, recurrent episode, moderate 296.32 and Generalized anxiety disorder 300.02 [facility] [address] [id number], [place] [address]- 9596 October, [facility] [address] [facility] [id number], [place] [address]- 2382 October, [facility] [address] [facility] [id number], [place] [address]- 0126 October, [facility] [id number] 5461 Sep, [facility] [id number]- 6159 Sep, [facility] [address] [facility] [id number] 7979 Aug, [facility] [address] [facility] [id number]- 2116 17 Aug, 2014 [facility] [address] [facility] [id number]- 7243 Aug, [facility] [address] [facility] [id number], [place] [address]- 5137 Aug, [facility] [address] [facility] [id number], [place] [address] Aug, [facility] [address] [facility] [id number], [place] [address] Aug, [facility] [address] [facility] [id number], [place] [address] Aug, [facility] [address] [facility] [id number] [place] [address] 16 Jul, 2014 [facility] [place] [facility] [address] [id number] [place] [address] Jul, 2014 [facility] [place] [facility] [address] [id number] [place] [address] Jul, 2014 [facility] [place] [facility] [address] [id number] [place] [address] Jul, 2014 [facility] [place] [facility] [address] [id number] [place] [address] Jul, 2014 [facility] [place] [facility] [address] [id number] [place] [address] Jul, 2014 [facility] [place] [facility] [address] [facility] [id number] [place] [address] Jul, 2014 [facility] [place] [facility] [address] [facility] [id number] [place] [address] Jul, 2014 [facility] [place] [facility] [address] [id number] [place] [address] Jul, 2014 [facility] [place] [facility] [address] [facility] [id number] [place] [address] Jun, [facility] [place] [facility] [address] [facility] [facility] [id number] [place] [address] Jun, [facility] [place] [facility] [address] [facility] [id number] [place] [address] 6[address] Jun, [facility] [place] [facility] [address] [id number] [place] [address] 2549 Jun, [facility] [place] [facility] [address] [id number] [place] [address]- 1226 Jun, [facility] [place] [facility] [address] [facility] [id number] [place] [address]- 2540 Jun, [facility] [place] [facility] [address] [facility] [id number] [place] [address]- 8651 Jun, [facility] [place] [facility] [address] [id number] [place] [address]- 5436 Jun, [facility] [place] [facility] [address] [id number] [place] [address]- 7066 Jun, [facility] [place] [facility] [address] [id number] [place] [address]- 5048 Jun, [facility] [place] [facility] [address] [id number] [place] [address]- 2477 Jun, [facility] [place] [facility] [address] [id number] [place] [address]- 1816 Jun, [facility] [place] [facility] [address] [id number] [place] [address]- 1412 Jun, [facility] [place] [facility] [address] [id number] [place] [address]- 7262 Jun, [facility] [place] [facility] [address] [id number] [place] [address]- 0372 Jun, [facility] [place] [facility] [address] [id number] [place] [address]- 3240 Jun, [facility] [place] [facility] [address] [id number] [place] [address]- 5308 Jun, [facility] [place] [facility] [address] [id number], [place] [address]- [address] Jun, [facility] [place] [facility] [address] [id number], [place] [address]- 9361 Jun, [facility] [place] [facility] [address] [id number] [place] [address]- 6496 Jun, [facility] [place] [facility] [address] [id number] [place] [address]- 7242 Jun, [facility] [place] [facility] [address] [id number] [place] [address]- 7716 Jun, [facility] [place] [facility] [address] [id number] [place] [address]- 8279 Jun, [facility] [address] [id number] [place] [address]- 8427 Jun, [facility] [place] [facility] [address] [id number] [place] [address]- 0851 Jun, [facility] [place] [facility] [address] [id number] [place] [address]- 5020 May, [facility] [place] [facility] [address] [id number] [place] [address]- 2502 May, [facility] [place] [facility] [address] [id number] [place] [address]- 4142 May, [facility] [place] [facility] [address] [id number] [place] [address]- 1767 May, [facility] [place] [facility] [address] [id number] [place] [address]- 9300 May, [facility] [place] [facility] [address] [id number] [place] [address]- 8897 May, [facility] [place] [facility] [address] [id number] [place] [address]- 1901 May, [facility] [place] [facility] [address] [id number] [place] [address]- 1041 May, [facility] [place] [facility] [address] [id number] [place] [address]- 6073 May, [facility] [place] [facility] [address] [id number] [place] [address]- 5555 May, [facility] [place] [facility] [address] [id number] [place] [address]- 7443 May, [facility] [place] [facility] [address] [id number] [place] [address]- 9326 May, [facility] [place] [facility] [address] [id number] [place] [address]- 9340 08 May, 2014 [facility] [place] [facility] [address] [id number] [place] [address]- 1833 May, [facility] [place] [facility] [address] [id number] [place] [address]- 6485 May, [facility] [place] [facility] [address] [id number] [place] [address] May, [facility] [place] [facility] [address] [id number] [place] [address]- 3888 May, [facility] [place] [facility] [address] [id number] [place] [address]- 4093 May, [facility] [place] [facility] [address] [id number] [place] [address]- 8193 Apr, [facility] [place] [facility] [address] [id number] [place] [address]- 1403 Apr, [facility] [place] [facility] [address] [id number] [place] [address]- 0398 Apr, [facility] [place] [facility] [address] [id number] [place] [address]- 9972 Apr, [facility] [place] [facility] [address] [id number] [place] [address]- 2655 Apr, [facility] [place] [facility] [address] [id number] [place] [address]- 7121 Apr, [facility] [place] [facility] [address] [id number] [place] [address]- 7984 Apr, [facility] [place] [facility] [address] [id number] [place] [address]- 6614 Apr, [facility] [place] [facility] [address] [id number] [place] [address]- 8860 Mar, [facility] [place] [facility] [address] [id number] [place] [address]- 2974 Mar, [facility] [place] [facility] [address] [id number] [place] [address]- 8788 Feb, 2013 [facility] [place] [facility] [address] [id number] [place] [address]- 1094 Feb, 2013 [facility] [place] [facility] [address] [id number] [place] [address]- 7677 Feb, [facility] [place] [facility] [address] [id number] [place] [address]- 6086 Feb, 2013 [facility] [place] [facility] [address] [id number] [place] [address]- 8243 Feb, 2013 [facility] [place] [facility] [address] [id number] [place] [address]- 9827 Feb, [facility] [place] [facility] [address] [id number] [place] [address]- 2541 Feb, [facility] [place] [facility] [address] [id number] [place] [address]- 8811 Feb, [facility] [place] [facility] [address] [id number] [place] [address]- 3412 Feb, [facility] [place] [facility] [address] [id number] [place] [address]- 9663 Feb, [facility] [place] [facility] [address] [id number] [place] [address]- 9314 Jan, [facility] [place] [facility] [address] [id number] [place] [address]- 7252 Jan, [facility] [place] [facility] [address] [id number] [place] [address]- 3850 Jan, [facility] [place] [facility] [address] [id number] [place] [address]- 9013 Jan, [facility] [place] [facility] [address] [id number] [place] [address]- 1088 Jan, [facility] [place] [facility] [address] [id number] [place] [address]- 1078 Jan, [facility] [place] [facility] [address] [id number] [place] [address]- 3595 Jan, [facility] [place] [facility] [address] [id number] [place] [address]- 7298 Jan, [facility] [place] [facility] [address] [id number] [place] [address]- 8987 Jan, [facility] [place] [facility] [address] [id number] [place] [address]- 3784 Jan, [facility] [place] [facility] [address] [id number] [place] [address]- 6896 Jan, [facility] [place] [facility] [address] [id number] [place] [address]- 4672 Jan, [facility] [place] [facility] [address] [id number] [place] [address]- 4104 Jan, [facility] [place] [facility] [address] [id number] [place] [address]- 5662 Dec, [facility] [place] [facility] [address] [id number] [place] [address]- 3418 Dec, [facility] [place] [facility] [address] [id number] [place] [address]- 8175 Dec, [facility] [place] [facility] [address] [id number] [place] [address]- 3957 Dec, [facility] [place] [facility] [address] [id number] [place] [address]- 0487 Dec, [facility] [place] [facility] [address] [id number] [place] [address]- 5219 Dec, [facility] [place] [facility] [address] [id number] [place] [address]- 3214 Dec, [facility] [place] [facility] [address] [id number] [place] [address]- 8088 Dec, [facility] [place] [facility] [address] [id number] [place] [address]- 8323 Dec, [facility] [place] [facility] [address] [id number] [place] [address]- 5502 Dec, [facility] [place] [facility] [address] [id number] [place] [address]- 7092 Dec, [facility] [place] [facility] [address] [id number] [place] [address]- 6826 Dec, [facility] [place] [facility] [address] [id number] [place] [address]- 6181 Dec, [facility] [place] [facility] [address] [id number] [place] [address]- 4937 Dec, [facility] [place] [facility] [address] [id number] [place] [address]- 7156 Nov, [facility] [place] [facility] [address] [id number] [place] [address]- 0440 Nov, [facility] [place] [facility] [address] [id number] [place] [address]- 2564 Nov, [facility] [place] [facility] [address] [id number] [place] [address]- 4116 Nov, [facility] [place] [facility] [address] [id number] [place] [address]- 6668 Nov, [facility] [place] [facility] [address] [id number] [place] [address]- 4055 Nov, [facility] [place] [facility] [address] [id number] [place] [address]- 6230 Nov, [facility] [place] [facility] [address] [id number] [place] [address]- 9048 Nov, [facility] [place] [facility] [address] [id number] [place] [address]- 8969 October, [facility] [place] [facility] [address] [id number] [place] [address]- 5384 October, [facility] [place] [facility] [address] [id number] [place] [address]- 9015 October, [facility] [address] [id number] [place] [address]- 3999 October, [facility] [place] [facility] [address] [id number] [place] [address]- 3937 October, [facility] [place] [facility] [address] [id number] [place] [address]- 7634 October, [facility] [place] [facility] [address] [id number] [place] [address]- 9486 October, [facility] [place] [facility] [address] [id number] [place] [address]- 2634 October, [facility] [place] [facility] [address] [id number] [place] [address]- 5208 October, [facility] [place] [facility] [address] [id number] [place] [address]- 1902 October, [facility] [place] [facility] [address] [id number] [place] [address]- 3480 October, [facility] [place] [facility] [address] [id number] [place] [address]- 5434 October, [facility] [place] [facility] [address] [id number] [place] [address]- 5223 October, [facility] [place] [facility] [address] [id number] [place] [address]- 5499 October, [facility] [place] [facility] [address] [id number] [place] [address]- 2237 October, [facility] [place] [facility] [address] [id number] [place] [address]- 9146 October, [facility] [place] [facility] [address] [id number] [place] [address]- 3059 Sep, [facility] [place] [facility] [address] [id number] [place] [address]- 5552 Sep, [facility] [place] [facility] [address] [id number] [place] [address]- 6363 Sep, [facility] [place] [facility] [address] [id number] [place] [address]- 9546 Sep, [facility] [place] [facility] [address] [id number] [place] [address]- 2386 Sep, [facility] [place] [facility] [address] [id number] [place] [address]- 8943 Sep, [facility] [place] [facility] [address] [id number] [place] [address]- 7652 Sep, [facility] [place] [facility] [address] [id number] [place] [address]- 8943 Sep, [facility] [place] [facility] [address] [id number] [place] [address]- 3919 Sep, [facility] [place] [facility] [address] [id number] [place] [address]- 6604 Sep, [facility] [place] [facility] [address] [id number] [place] [address]- 5300 Sep, [facility] [place] [facility] [address] [id number] [place] [address]- 1110 Sep, [facility] [place] [facility] [address] [id number] [place] [address]- 7704 Sep, [facility] [place] [facility] [address] [id number] [place] [address]- 4667 Sep, [facility] [place] [facility] [address] [id number] [place] [address]- 9517 Sep, [facility] [place] [facility] [address] [id number] [place] [address]- 0718 Sep, [facility] [place] [facility] [address] [id number] [place] [address]- 7013 Sep, [facility] [place] [facility] [address] [id number] [place] [address]- 8628 Sep, [facility] [place] [facility] [address] [id number] [place] [address]- 1792 Sep, [facility] [place] [facility] [address] [id number] [place] [address]- 7079 Aug, [facility] [place] [facility] [address] [id number] [place] [address]- 6655 Aug, [facility] [place] [facility] [address] [id number] [place] [address]- 8256 Aug, [facility] [place] [facility] [address] [id number] [place] [address]- 7796 Aug, [facility] [place] [facility] [address] [id number] [place] [address]- 8312 Jul, [facility] [place] [facility] [address] [id number] [place] [address]- 8346 Jul, [facility] [place] [facility] [address] [id number] [place] [address]- 5102 Jul, [facility] [place] [facility] [address] [id number] [place] [address]- 6532 Jul, [facility] [place] [facility] [address] [facility] [id number] [place] [address]- 6153 Jul, [facility] [place] [facility] [address] [id number] [place] [address]- 5949 Jul, [facility] [place] [facility] [address] [id number] [place] [address]- 9691 Jul, [facility] [place] [facility] [address] [id number] [place] [address]- 8469 Jul, [facility] [place] [facility] [address] [facility] [id number] [place] [address]- 1629 Jul, [facility] [place] [facility] [address] [facility] [id number] [place] [address]- 2227 Jul, [facility] [place] [facility] [address] [id number] [place] [address]- 6472 Jul, [facility] [place] [facility] [address] [id number] [place] [address]- 1428 Jul, [facility] [place] [facility] [address] [id number] [place] [address]- 6451 Jun, [facility] [place] [facility] [address] [id number] [place] [address]- 2274 Jun, [facility] [place] [facility] [address] [id number] [place] [address]- 1958 Jun, [facility] [place] [facility] [address] [id number] [place] [address]- 0606 Jun, [facility] [place] [facility] [address] [id number] [place] [address]- 7745 Jun, [facility] [place] [facility] [address] [id number] [place] [address]- 5614 Jun, [facility] [place] [facility] [address] [id number] [place] [address]- 5899 May, [facility] [place] [facility] [address] [id number] [place] [address]- 9640 May, [facility] [place] [facility] [address] [id number] [place] [address]- 3364 Apr, [facility] [place] [facility] [address] [id number] [place] [address]- 2629 Apr, [facility] [place] [facility] [address] [id number] [place] [address]- 3799 Apr, [facility] [place] [facility] [address] [id number] [place] [address]- 1679 Apr, [facility] [place] [facility] [address] [id number] [place] [address]- 2861 Apr, [facility] [place] [facility] [address] [id number], [place] [address]- 2575 18 Apr, 2013 [facility] [place] [facility] [address] [id number] [place] [address]- 5325 17 Apr, 2013 [facility] [place] [facility] [address] [id number], [place] [address]- 6148 15 Apr, 2013 [facility] [place] [facility] [address] [id number] [place] [address]- 2827 15 Apr, 2013 [facility] [place] [facility] [address] [id number], [place] [address]- 4676 15 Apr, 2013 [facility] [place] [facility] [address] [id number] [place] [address]- 7707 15 Apr, 2013 [facility] [place] [facility] [address] [id number], [place] [address]- 0956 Apr, [facility] [place] [facility] [address] [id number], [place] [address]- 6124 Apr, [facility] [place] [facility] [address] [id number], [place] [address]- 7327 31 Mar, 2013 [facility] [place] [facility] [address] [id number], [place] [address]- 0596 31 Mar, 2013 [facility] [place] [facility] [address] [id number], [place] [address]- 8228 25 Mar, 2013 [facility] [place] [facility] [address] [id number], [place] [address]- 9633 25 Mar, 2013 [facility] [place] [facility] [address] [id number], [place] [address]- 3435 17 Mar, 2013 [facility] [place] [facility] [address] [id number], [place] [address]- 2027 17 Mar, 2013 [facility] [place] [facility] [address] [id number], [place] [address]- 5231 14 Mar, 2013 [facility] [place] [facility] [address] [id number], [place] [address]- 9482 14 Mar, 2013 [facility] [place] [facility] [address] [id number] [place] [address]- 5742 Mar, [facility] [address] [id number] [place] [address]- 6541 Mar, [facility] [place] [facility] [address] [id number] [place] [address]- 1856 Mar, [facility] [address] [id number] [place] [address]- 1513 30 Feb, 2013 [facility] [place] [facility] [address] [id number] [place] [address] 2541 28 Feb, 2013 [facility] [address] [id number] [place] [address]- 4458 27 Feb, 2013 [facility] [address] [id number] [place] [address]- 8534 27 Feb, 2013 [facility] [address] [id number] [place] [address]- 4317 20 Feb, 2013 [facility] [address] [id number] [place] [address]- 3198 Feb, [facility] [place] [facility] [address] [id number] [place] [address]- 2979 Jan, [facility] [address] [id number] [place] [address]- 7712 Jan, [facility] [place] [facility] [address] [id number] [place] [address] 2547 Dec, [facility] [place] [facility] [address] [id number] [place] [address] 2540 Dec, [facility] [place] [facility] [address] [id number] [place] [address]- 0063 Dec, [facility] [place] [facility] [address] [id number] [place] [address]- 2544 Dec, [facility] [place] [facility] [address] [id number] [place] [address] Nov, [facility] [address] [id number] [place] [address]100 14 Nov, 2012 [facility] [address] [id number] [place] [address]36 Nov, [facility] [address] [id number] [place] [address] 8583 October, [facility] [place] [facility] [address] [id number] [place] [address] October, [facility] [address] [id number] [place] [address]90 October, [facility] [address] [id number] [place] [address] October, [facility] [address] [id number] [place] [address] October, [facility] [address] [id number] [place] [address]149 Sep, [facility] [place] [facility] [address] [id number] [place] [address]792 Sep, [facility] [address] [id number], [place] [address] Aug, [facility] [place] [facility] [address] [id number] [place] [address]36 Aug, [facility] [place] [facility] [address] [id number], [place] [address] Aug, [facility] [place] [facility] [address] [id number] [place] [address]60 Aug, [facility] [place] [facility] [address] [id number] [place] [address]- [address]26 Aug, [facility] [place] [facility] [address] [id number], [place] [address] Jul, [facility] [place] [facility] [address] [id number], [place] [address]46 11 Jul, 2012 [facility] [address] [id number] [place] [address]- [address] 06 Jul, 2012 [facility] [address] [id number] [place] [address] 8681 Jul, [facility] [address] [id number] [place] [address]- [address] Jun, [facility] [address] [id number] [place] [address]- [address]857 Jun, [facility] [address] [id number] [place] [address]- [address]487 Jun, [facility] [address] [id number] [place] [address]- 6028 Jun, [facility] [address] [id number] [place] [address]- 5694 Jun, [facility] [address] [id number] [place] [address]- [address]796 Jun, [facility] [address] [id number] [place] [address] 6820 Jun, [facility] [address] [id number] [place] [address]- 9864 Jun, [facility] [address] [id number] [place] [address]- 6921 Jun, [facility] [address] [id number] [place] [address]- 8159 Jun, [facility] [address] [id number] [place] [address]- 1844 Jun, [facility] [address] [id number] [place] [address]64 May, [facility] [address] [id number] [place] [address] 3068 May, [facility] [place] [facility] [address] [id number] [place] [address]- 9895 Apr, [facility] [place] [facility] [address] [id number] [place] [address]- 1671 Apr, [facility] [place] [facility] [address] [id number] [place] [address]184 Mar, [facility] [place] [facility] [address] [id number] [place] [address], [place] [address]- [address] Mar, [facility] [place] [facility] [address] [id number] [place] [address] 6614 Mar, [facility] [place] [facility] [address] [id number] [place] [address]- 5658 Mar, [facility] [place] [facility] [address] [id number] [place] [address]- 6869 Mar, [facility] [place] [facility] [address] [id number] [place] [address]- 9756 Mar, [facility] [place] [facility] [address] [id number] [place] [address]- 1014 Mar, [facility] [place] [facility] [address] [id number] [place] [address]- 5498 Mar, [facility] [place] [facility] [address] [id number] [place] [address]- 6039 Mar, [facility] [place] [facility] [address] [id number] [place] [address]- 1452 Feb, [facility] [place] [facility] [address] [id number] [place] [address]- 0634 Jan, [facility] [place] [facility] [address] [id number] [place] [address]- 0246 Jan, [facility] [place] [facility] [address] [id number] [place] [address]- 8018 Dec, [facility] [place] [facility] [address] [id number] [place] [address]- 6016 Dec, [facility] [place] [facility] [address] [id number] [place] [address]- 8688 Dec, [facility] [place] [facility] [address] [id number] [place] [address]- 5532 Nov, [facility] [place] [facility] [address] [id number] [place] [address]- 0437 Nov, [facility] [place] [facility] [address] [id number] [place] [address]- 2563 Nov, [facility] [place] [facility] [address] [id number] [place] [address]- 3808 Nov, [facility] [place] [facility] [address] [id number] [place] [address]- 7531 October, [facility] [place] [facility] [address] [id number] [place] [address]- 9786 October, [facility] [place] [facility] [address] [id number] [place] [address]- 9095 Sep, [facility] [place] [facility] [address] [id number] [place] [address]- 9644 Sep, [facility] [place] [facility] [address] [id number] [place] [address]- 4646 Aug, [facility] [place] [facility] [address] [id number] [place] [address]- 0423 Jul, [facility] [place] [facility] [address] [id number] [place] [address]- 4936 Jul, [facility] [place] [facility] [address] [id number] [place] [address]- 0741 Jul, [facility] [place] [facility] [address] [id number] [place] [address]- 2766 Jul, [facility] [place] [facility] [address] [id number] [place] [address]- 1311 Jun, [facility] [place] [facility] [address] [id number] [place] [address]- 2859 15 May, 2011 [facility] [place] [facility] [address] [id number] [place] [address]- 2581 15 May, 2011 [facility] [place] [facility] [address] [id number] [place] [address]- 2506 15 May, 2011 [facility] [place] [facility] [address] [id number] [place] [address]- 0171 13 May, 2011 [facility] [place] [facility] [address] [id number] [place] [address]- 8421 08 May, 2011 [facility] [place] [facility] [address] [id number] [place] [address]- 1482 14 Apr, 2011 [facility] [place] [facility] [address] [id number] [place] [address] 14 Apr, 2011 [facility] [place] [facility] [address] [id number] [place] [address] 14 Apr, 2011 [facility] [place] [facility] [address] [id number] [place] [address] 07 Apr, 2011 [facility] [place] [facility] [address] [id number] [place] [address] 02 Apr, 2011 [facility] [place] [facility] [address] [id number] [place] [address] 26 Mar, 2011 [facility] [place] [facility] [address] [id number] [place] [address] 25 Mar, 2011 [facility] [place] [facility] [address] [id number] [place] [address] 14 Mar, 2011 [facility] [place] [facility] [address] [id number] [place] [address] 14 Mar, 2011 [facility] [place] [facility] [address] [id number] [place] [address] 13 Mar, 2011 [facility] [place] [facility] [address] [id number] [place] [address] Mar, [facility] [id number] [address] Mar, [facility] [id number] [place] [address] Mar, [facility] [id number], [place] [address] Feb, [facility] [id number], [place] [address] May, [facility] [id number], [place] [address] May, [facility] [id number] [place] [address] May, [facility] [id number], [place] [address] Apr, [facility] [id number], [place] [address] Mar, IMMUNIZATIONS No Known Immunizations SOCIAL HISTORY Never Assessed REASON FOR VISIT xanax 10/26/2017 PLAN OF CARE VITAL SIGNS MEDICATIONS Medication Instructions Dosage Frequency Start Date End Date Duration Status Alprazolam 2 MG Orally Twice a day (part of taper dose) 1 tablet 30 days Active RESULTS No [...]
[2018-08-19] MEDS ORDERED: ONDANSETRON 4 MG (ZOFRAN) ORAL DISSOLVE TAB PO STA (09:28)
--- OUTSIDE RECORDS SUMMARY | 2018-08-19 09:28 | XMS REPORT ---
Author Author STAN RAND Organization [facility] Address [address] [place] [address] Care Team Providers Care Resin Shaver Name Role Phone STAN RAND Unavailable PROBLEMS Type Condition ICD9-CM Code [id number] Code Onset Dates Condition Status SNOMED Code Problem Mixed hyperlipidemia E78.2 Active 412062746 Problem Vitamin D deficiency E55.9 Active 02620200 Problem Essential hypertension I10 Active 42709010 Problem Mild intermittent asthma without complication J45.20 Active 090112705 Problem Generalized anxiety disorder F41.1 Active 01140685 Problem Gastroesophageal reflux disease, esophagitis presence not specified K21.9 Active 242059081 Problem Bipolar disorder, current episode mixed, moderate F31.62 Active 929290350 Problem Bipolar disorder F31.9 Active 59871025 Problem Panic disorder F41.0 Active 044990486 Problem Low back pain with sciatica, sciatica laterality unspecified, unspecified back pain laterality, unspecified chronicity M54.40 Active 303163623 Problem Acute right-sided low back pain with right-sided sciatica M54.41 Active 51773400 Problem Excessive thirst R63.1 Active 21631235 Problem Concussion without loss of consciousness, initial encounter S06.0X0A Active 96353985 Problem Primary insomnia F51.01 Active 292601676 Problem Anxiety F41.9 Active 47011075 Problem Hematuria R31.9 Active 33985957 Problem Hot flashes R23.2 Active 894539006 Problem Multiple fractures T07.XXXA Active 061928298 Problem Nausea R11.0 Active 409927450 Problem Hospital discharge follow-up Z09 Active 264251229 Problem Breast tenderness N64.4 Active 08173396 Problem Depression F32.9 Active 64044296 Problem Hidradenitis suppurativa L73.2 Active 42353728 Problem History of IBS Z87.19 Active 44342858105884 Problem Localized edema R60.0 Active 495572210 Problem Posttraumatic stress disorder F43.10 Active 87800674 Problem Genital herpes simplex, unspecified site A60.00 Active 58306134 Problem Tobacco use Z72.0 Active 703269505 ALLERGIES Substance Reaction Event Type Date Status Paxil suicidal Drug Allergy Sep, Active Morphine Sulfate hives Drug Allergy Sep, Active Hydrocodone-Acetaminophen rash Drug Allergy Sep, Active Bactrim DS break out in blisters Drug Allergy Sep, Active Amoxicillin hives Drug Allergy Sep, Active Latex rash Non Drug Allergy Sep, Active Abilify 2 Mg Tablet anger Non Drug Allergy Sep, Active ENCOUNTERS Encounter Location Date Diagnosis [facility] [id number] [place] [address] 78655- 5795 Jan, [place] [facility] [address] 57819- 8866 Dec, Diaphoresis R61 and Excessive thirst R63.1 [facility] [facility] [address] 73856- 7370 Dec, Panic disorder F41.0 ; Bipolar disorder, current episode mixed, moderate F31.62 and Generalized anxiety disorder F41.1 [facility] [id number] [place] [address] 05371- 1821 Dec, Panic disorder F41.0 [facility] [id number] [place] [address] 42672- 7510 Nov, Panic disorder F41.0 [facility] [id number] [place] [address] 30023- 6522 Nov, Panic disorder F41.0 ; Generalized anxiety disorder F41.1 and Bipolar disorder, current episode mixed, moderate F31.62 [facility] [id number] [place] [address] 51524- 6992 Nov, Panic disorder F41.0 [facility] [id number] [place] [address] 58461- 4461 Nov, Panic disorder F41.0 [facility] [facility] [address] 38395- 3823 October, Panic disorder F41.0 [facility] [id number] [place] [address] 85893- 3902 October, Panic disorder F41.0 ; Generalized anxiety disorder F41.1 and Bipolar disorder, current episode mixed, moderate F31.62 [facility] [id number] [place] [address] 82790- 8967 October, Panic disorder F41.0 [facility] [id number] [place] [address] 95048- 1004 Sep, Hospital discharge follow-up Z09 ; Concussion without loss of consciousness, initial encounter S06.0X0A and Nausea R11.0 [facility] [id number] [place] [address] 14406- 0218 Sep, [facility] [facility] [address] 52140- 0837 Sep, Panic disorder F41.0 [facility] [id number] [place] [address] 05874- 5729 Sep, [facility] [facility] [address] 45842- 1742 Sep, Well woman exam with routine gynecological exam Z01.419 ; Multiple fractures T07.XXXA ; Hot flashes R23.2 ; Essential hypertension I10 ; Mixed hyperlipidemia E78.2 ; Genital herpes simplex, unspecified site A60.00 ; Alkaline phosphatase elevation R74.8 ; Dysuria R30.0 ; Vitamin D deficiency E55.9 ; Tobacco use Z72.0 ; High risk sexual behavior Z72.51 and Encounter for immunization Z23 [facility] [address] 87950- 2163 Aug, Panic disorder F41.0 ; Generalized anxiety disorder F41.1 and Bipolar disorder, current episode mixed, moderate F31.62 [facility] [id number] [place] [address] 48246- 3020 Aug, [place] [address] [address] 5977 Jul, Panic disorder F41.0 ; Generalized anxiety disorder F41.1 and Bipolar disorder, current episode mixed, moderate F31.62 [facility] [address], [place] [address]- 7105 Jul, [facility] [id number] [place] [address] 33512- 8123 Jul, [facility] [address] [place] [address] 35332- 3912 Jul, Effusion, right knee M25.461 ; Acute pain of right knee M25.561 and Acute pain of left knee M25.562 [facility] [address], [place] [address]- 5013 Jun, Bipolar disorder, current episode mixed, moderate F31.62 ; Generalized anxiety disorder F41.1 and Panic disorder F41.0 [facility] [address], [place] [address]- 5257 May, Bipolar disorder, current episode mixed, moderate F31.62 ; Generalized anxiety disorder F41.1 and Panic disorder F41.0 [facility] [address], [place] [address]- 0702 May, Bipolar disorder, current episode mixed, moderate F31.62 [facility] [address], [place] [address]- 9358 May, Bipolar disorder, current episode mixed, moderate F31.62 [facility] [address], [place] [address]- 1529 Apr, Bipolar disorder, current episode mixed, moderate F31.62 ; Generalized anxiety disorder F41.1 and Panic disorder F41.0 [facility] [address], [place] [address]- 8905 Mar, [facility] [id number] [place] [address] 14386- 7942 Mar, Bipolar disorder, current episode mixed, moderate F31.62 ; Generalized anxiety disorder F41.1 and Panic disorder F41.0 [facility] [id number] [place] [address] 94406- 8261 27 Feb, 2017 [facility] [address] 72643- 0766 22 Feb, 2017 Posttraumatic stress disorder F43.10 [facility] [address] 83907- 7765 20 Feb, 2017 Gastroesophageal reflux disease, esophagitis presence not specified K21.9 [facility] [address] 67804- 5054 13 Feb, 2017 [place] [facility] [address] 89908- 8966 06 Feb, 2017 Knee pain, right anterior M25.561 [place] [facility] [address] 08658- 6396 05 Feb, 2017 HSV (herpes simplex virus) infection B00.9 [facility] [id number] [place] [address] 01362- 0237 05 Feb, 2017 [facility] [id number] [place] [address] 64176- 5825 Jan, [facility] [id number] [place] [address] 12816- 6696 Jan, Posttraumatic stress disorder F43.10 [facility] [id number] [place] [address] 97400- 6898 Jan, Foot pain, left M79.672 [facility] [id number] [place] [address] 71903- 5434 Jan, [facility] [id number] [place] [address] 61000- 1194 Jan, Lumbar radiculopathy, acute M54.16 ; Muscle spasm of back M62.830 and Right hip pain M25.551 [facility] [address], [place] [address]- 0467 Jan, Lumbar radiculopathy, acute M54.16 [facility] [id number] [place] [address] 44517- 9923 Jan, [facility] [id number] [place] [address] 41103- 9284 Jan, [facility] [id number] [place] [address] 48464- 3353 Dec, Lumbar radiculopathy, acute M54.16 ; Acute renal insufficiency N28.9 and Muscle spasm of back M62.830 [facility] [id number] [place] [address] 47747- 7068 Dec, [facility] [id number] [place] [address] 25088- 3176 Dec, [facility] [id number] [place] [address] 20903- 4025 Dec, [facility] [id number] [place] [address] 47292 -9635 Dec, Low back pain with sciatica, sciatica laterality unspecified, unspecified back pain laterality, unspecified chronicity M54.40 and Acute right-sided low back pain with right-sided sciatica M54.41 [facility] [id number] [place] [address] 48459- 7780 Dec, Posttraumatic stress disorder F43.10 [facility] [id number] [place] [address] 33479- 4724 Dec, [facility] [id number] [place] [address] 55101- 9146 Dec, Pain in right thigh M79.651 and Acute right-sided low back pain without sciatica M54.5 [facility] [id number] [place] [address] 55403- 7597 Dec, Posttraumatic stress disorder F43.10 and Major depressive disorder, recurrent episode with anxious distress F33.9 [facility] [address], [place] [address] 08 Dec, 2016 [facility] [id number] [place] [address] 93817- 2388 Nov, [facility] [id number] [place] [address] 22285- 1151 October, [facility] [id number] [place] [address] 03125- 7685 October, [facility] [id number] [place] [address] 83018- 6957 October, Knee pain, right anterior M25.561 [facility] [id number] [place] [address] 56592- 2274 October, Knee pain, right anterior M25.561 [facility] [id number] [place] [address] 77076- 1917 October, [facility] [id number] [place] [address] 22553- 9020 October, [facility] [id number] [place] [address] 00203- 7657 October, [facility] [address], [place] [address]0319 Sep, [facility] [id number] [place] [address] 05431- 6927 Sep, [facility] [id number] [place] [address] 85330- 5520 Sep, Essential hypertension I10 [facility] [id number] [place] [address] 20354- 3051 11 Sep, 2016 Essential hypertension I10 [facility] [id number] [place] [address] 80825- 1682 Sep, [facility] [id number] [place] [address] 24385- 0520 Sep, Posttraumatic stress disorder F43.10 and Major depressive disorder, recurrent episode with anxious distress F33.9 [facility] [id number] [place] [address] 92759- 9122 Sep, Multiple fractures T14.8 ; Alkaline phosphatase elevation R74.8 and Vitamin D deficiency E55.9 [facility] [id number] [place] [address] 90584- 4780 Sep, [facility] [id number] [place] [address] 07793- 4584 Sep, Elevated serum creatinine R79.89 ; Fracture of foot, left, closed, initial encounter S92.902A and Alkaline phosphatase elevation R74.8 [facility] [id number] [place] [address] 36959- 5955 Sep, Elevated serum creatinine R79.89 and Essential hypertension I10 [facility] [id number] [place] [address] 23792- 3468 Sep, [facility] [facility] [id number] [place] [address] 45815- 8756 Aug, Gastroesophageal reflux disease, esophagitis presence not specified K21.9 [facility] [id number] [place] [address] 73554- 0468 Aug, Essential hypertension I10 ; Fracture of foot, left, closed , initial encounter S92.902A and Alkaline phosphatase elevation R74.8 [facility] [id number] [place] [address] 82122- 3731 Jul, Genital herpes simplex, unspecified site A60.00 [facility] [id number] [place] [address] 25725- 5049 Jul, Essential hypertension I10 [facility] [id number] [place] [address] 40359- 9579 Jun, Cough R05 and Wheezing R06.2 [facility] [id number] [place] [address] 59002- 0218 Jun, Essential hypertension I10 [facility] [id number] [place] [address] 47538- 4042 May, Essential hypertension I10 [facility] [address] 37720- 5064 May, Posttraumatic stress disorder F43.10 and Major depressive disorder, recurrent episode with anxious distress F33.9 [facility] [id number] [place] [address] 98445- 6050 Apr, [facility] [id number] [place] [address] 85685- 5642 Apr, [facility] [address] 10799- 7926 Apr, [facility] [id number] [place] [address] 78010- 8851 Mar, [facility] [id number] [place] [address] 87337- 2860 Feb, [facility] [id number] [place] [address] 69521- 3354 Jan, [facility] [id number] [place] [address] 03700- 2483 Jan, Essential hypertension I10 ; Mixed hyperlipidemia E78.2 ; Gastroesophageal reflux disease, esophagitis presence not specified K21.9 ; Mild intermittent asthma without complication J45.20 ; Hidradenitis suppurativa L73.2 ; Migraine without status migrainosus, not intractable, unspecified migraine type G43.909 ; Genital herpes simplex, unspecified site A60.00 and Closed traumatic minimally displaced fracture of metatarsal bone of left foot S92.302A [facility] [id number] [place] [address] 64323 -9824 Jan, Localized edema R60.0 [facility] [id number] [place] [address] 21359- 1383 Dec, [facility] [id number] [place] [address] 21598- 6655 Dec, [facility] [id number] [place] [address] 21685- 5554 Dec, [facility] [address] 59327 -4209 Dec, Cough R05 ; Tobacco dependence F17.200 and Costochondritis , acute M94.0 [facility] [address] 29033- 9949 Dec, Major depression, recurrent F33.9 ; Bipolar disorder, unspecified F31.9 and Posttraumatic stress disorder F43.10 [facility] [id number] [place] [address] 70229- 7320 Nov, [facility] [id number] [place] [address] 74585- 2865 Nov, [facility] [id number] [place] [address] 28837- 0432 October, [facility] [id number] [place] [address] 88558 -6118 October, Acute upper respiratory infection, unspecified J06.9 [facility] [id number] [place] [address] 66153- 5277 October, [facility] [id number] [place] [address] 06366- 4903 Sep, Bipolar affective disorder, remission status unspecified F31.9 and Post-traumatic stress disorder F43.10 [facility] [address] [place] [address] 04993- 2358 Sep, Bipolar disorder, unspecified F31.9 ; Posttraumatic stress disorder F43.10 and Major depression, recurrent F33.9 [facility] [facility] [id number] [place] [address] 09790- 8651 16 Aug, 2015 Edema R60.9 ; Fatigue R53.83 and Polydipsia R63.1 [facility] [facility] [id number] [place] [address] 30548- 1272 07 Aug, 2015 [facility] [id number] [place] [address] 54126- 1841 Aug, [facility] [id number] [place] [address] 50604- 1327 Jul, [facility] [id number] [place] [address] 12752- 5672 Jul, [facility] [id number] [place] [address] 56796- 2020 Jun, [facility] [facility] [id number] [place] [address] 81424- 5407 Jun, [facility] [id number] [place] [address] 18747- 6968 Jun, [facility] [id number] [place] [address] 56834- 0569 Jun, [facility] [id number] [place] [address] 20845- 8421 May, Mixed hyperlipidemia E78.2 [facility] [facility] [id number] [place] [address] 32642- 5432 May, Well woman exam Z01.419 ; History of herpes simplex infection Z86.19 ; Papanicolaou smear Z12.4 ; History of depression Z86.59 ; History of anxiety Z86.59 ; Lipoma of other specified sites D17.79 ; Hidradenitis suppurativa L73.2 ; Routine screening for STI (sexually transmitted infection) Z11.3 and Tobacco use Z72.0 [facility] [address] [place] [address] 62502- 8697 May, Hematuria R31.9 ; Essential hypertension I10 ; Pure hypercholesterolemia E78.0 and Hidradenitis L73.2 [facility] [id number] [place] [address] 49668- 7583 May, Upper respiratory symptom R09.89 and Allergic rhinitis J30.9 [facility] [id number] [place] [address] 16443- 2479 May, [facility] [address] 62266- 7083 May, [facility] [id number] [place] [address] 56688- 1119 May, Bipolar disorder, unspecified F31.9 ; Posttraumatic stress disorder F43.10 and Major depression, recurrent F33.9 [facility] [id number] [place] [address] 74998- 3145 May, [facility] [address] 68644- 9246 May, [facility] [id number] [place] [address] 63800- 8301 Apr, [facility] [id number] [place] [address] 36380- 8237 Apr, [facility] [id number] [place] [address] 69324- 4592 Mar, [facility] [id number] [place] [address] 78192- 4629 Mar, [facility] [id number] [place] [address] 23647- 0598 Mar, [facility] [id number] [place] [address] 89387- 8542 18 Feb, 2015 Major depressive disorder, recurrent episode, moderate 296.32 and Post traumatic stress disorder (PTSD) 309.81 [facility] [id number] [place] [address] 92572- 5085 10 Feb, 2015 [facility] [address], [place] [address]- 9544 08 Feb, 2015 [facility] [address], [place] [address]- 2518 Jan, Cough 786.2 [facility] [address], [place] [address]- 8274 Jan, Depression, major, recurrent, moderate 296.32 and Post traumatic stress disorder (PTSD) 309.81 [facility] [address], [place] [address]- 1590 Jan, [facility] [id number] [place] [address] 50246- 0018 Dec, [facility] [address], [place] [address]- 6356 Dec, Generalized anxiety disorder 300.02 and Depression, major, recurrent, moderate 296.32 [facility] [address], [place] [address]- 7947 14 Dec, 2014 [facility] [address], [place] [address]- 5712 Dec, High risk medication use V58.69 [facility] [address], [place] [address]- 6306 10 Dec, 2014 High risk medication use V58.69 [facility] [address], [place] [address]- 0720 07 Dec, 2014 [facility] [address], [place] [address]- 3476 Nov, Generalized anxiety disorder 300.02 and Major depressive disorder, recurrent episode, moderate 296.32 [facility] [address] [address] Nov, Dental examination V72.2 [facility] [address] [id number] Nov, Dental examination V72.2 [facility] [address] [id number] [address]- 2546 15 Nov, 2014 [facility] [address] [id number] Nov, Dental examination V72.2 [facility] [address] [address] Nov, Dental examination V72.2 [facility] [id number] [address] 2546 October, Major depressive disorder, recurrent episode, moderate 296.32 and Generalized anxiety disorder 300.02 [facility] [id number] [place] [address] 38960 2546 October, [facility] [id number], [place] [address]- 7286 October, [facility] [address], [place] [address] 2546 October, [facility] [id number], [place] [address]- 8012 14 Sep, 2014 [facility] [address], [place] [address]- 2936 Sep, [facility] [id number], [place] [address] 2546 17 Aug, 2014 [facility] [address], [place] [address]- 2546 17 Aug, 2014 [facility] [address] [facility] [id number] [address]- 2546 Aug, [facility] [id number], [place] [address] 2546 13 Aug, 2014 [facility] [address] [facility] [id number], [place] [address] 10 Aug, 2014 [facility] [id number] [address] Aug, [facility] [place] [facility] [address] [id number] [place] [address] Aug, [facility] [place] [facility] [address] [id number] [place] [address] Jul, 2014 [facility] [place] [facility] [address] [id number] [place] [address] Jul, 2014 [facility] [place] [facility] [address] [id number] [place] [address] Jul, 2014 [facility] [place] [facility] [address] [id number] [place] [address] Jul, 2014 [facility] [place] [facility] [address] [id number] [place] [address] Jul, 2014 [facility] [place] [facility] [address] [id number] [place] [address] Jul, 2014 [facility] [place] [facility] [address] [id number] [place] [address] Jul, 2014 [facility] [place] [facility] [address] [id number] [place] [address] Jul, [facility] [place] [facility] [address] [id number] [place] [address] Jul, [facility] [place] [facility] [address] [id number] [place] [address] Jun, [facility] [facility] [address] [id number] [place] [address] Jun, [facility] [place] [facility] [address] [id number] [place] [address] Jun, [facility] [place] [facility] [address] [id number] [place] [address]- 1118 Jun, [facility] [place] [facility] [address] [id number] [place] [address]- 4978 Jun, [facility] [place] [facility] [address] [id number] [place] [address]- 6182 Jun, [facility] [address] [id number] [place] [address] 0627 Jun, [facility] [address] [id number] [place] [address] 6856 Jun, [facility] [address] [id number] [place] [address]- 0597 Jun, [facility] [place] [facility] [address] [id number] [place] [address]- 9961 Jun, [facility] [facility] [address] [id number] [place] [address]- 6806 Jun, [facility] [address] [id number] [place] [address]- 9351 Jun, [facility] [address] [id number] [place] [address]- 5722 Jun, [facility] [address] [id number] [place] [address]- 7767 Jun, [facility] [address] [id number] [place] [address]- 1801 Jun, [facility] [address] [id number] [place] [address]- 2272 Jun, [facility] [address] [id number] [place] [address]- 5492 Jun, [facility] [address] [id number] [place] [address]- 1776 Jun, [facility] [facility] [address] [id number] [place] [address]- 7119 Jun, [facility] [address] [id number] [place] [address]- 6742 Jun, [facility] [address] [id number] [place] [address]- 9997 Jun, [facility] [address] [id number] [place] [address]- 6841 Jun, [facility] [place] [facility] [address] [id number] [place] [address]- 3106 Jun, [facility] [address] [id number] [place] [address]- 5559 Jun, [facility] [address] [id number] [place] [address]- 6641 Jun, [facility] [place] [facility] [address] [id number] [place] [address]- 6014 May, [facility] [address] [id number] [place] [address]- 5144 May, [facility] [address] [id number] [place] [address]- 1813 May, [facility] [place] [facility] [address] [id number] [place] [address]- 4006 May, [facility] [address] [id number] [place] [address]- 7622 May, [facility] [place] [facility] [address] [id number] [place] [address]- 6600 May, [facility] [place] [facility] [address] [id number] [place] [address]- 8204 May, [facility] [place] [facility] [address] [id number] [place] [address]- 9889 May, [facility] [place] [facility] [address] [id number] [place] [address]- 1468 May, [facility] [address] [id number] [place] [address]- 9112 May, [facility] [address] [id number] [place] [address]- 8387 May, [facility] [address] [id number] [place] [address]- 4978 May, [facility] [address] [id number] [place] [address]- 0573 May, [facility] [address] [id number] [place] [address]- 0838 May, [facility] [address] [id number] [place] [address]- 6913 May, [facility] [address] [id number] [place] [address]- 5929 May, [facility] [place] [address] [id number] [place] [address]- 3928 May, [facility] [address] [id number] [place] [address]- 7561 May, [facility] [address] [id number] [place] [address]- 1572 Apr, [facility] [address] [id number] [place] [address]- 8668 Apr, [facility] [address] [id number] [place] [address]- 3907 Apr, [facility] [address] [facility] [id number] [place] [address]- 9219 Apr, [facility] [address] [id number] [place] [address]- 5145 Apr, [facility] [address] [id number], [place] [address]- 3598 Apr, [facility] [address] [id number] [place] [address]- 4158 Apr, [facility] [address] [id number] [place] [address]- 2437 Apr, [facility] [address] [id number] [place] [address]- 3269 Mar, [facility] [address] [id number] [place] [address]- 8374 Mar, [facility] [address] [id number] [place] [address]- 2982 Feb, [facility] [address] [id number] [place] [address]- 5834 Feb, 2013 [facility] [address] [id number] [place] [address]- 7338 Feb, 2013 [facility] [address] [id number] [place] [address]- 3554 Feb, [facility] [facility] [address] [id number] [place] [address]- 1615 Feb, [facility] [address] [id number] [place] [address]- 5620 Feb, [facility] [address] [id number] [place] [address]- 2598 Feb, [facility] [address] [id number] [place] [address]- 8411 Feb, [facility] [address] [id number] [place] [address]- 6531 Feb, [facility] [address] [id number] [place] [address]- 3475 Feb, [facility] [address] [id number] [place] [address]- 7473 Jan, [facility] [address] [id number] [place] [address]- 5457 Jan, [facility] [address] [id number] [place] [address]- 5387 Jan, [facility] [address] [id number] [place] [address]- 2192 Jan, [facility] [address] [id number] [place] [address]- 0909 Jan, [facility] [address] [id number] [place] [address]- 2327 Jan, [facility] [address] [id number] [place] [address]- 3572 Jan, [facility] [address] [id number] [place] [address]- 6156 Jan, [facility] [address] [id number] [place] [address]- 6811 Jan, [facility] [address] [id number] [place] [address]- 7650 Jan, [facility] [address] [id number] [place] [address]- 5509 Jan, [facility] [address] [id number] [place] [address]- 4048 Jan, [facility] [address] [id number] [place] [address]- 0103 Jan, [facility] [address] [id number] [place] [address]- 1601 Dec, [facility] [address] [id number] [place] [address]- 2311 Dec, [facility] [address] [id number] [place] [address]- 8584 Dec, [facility] [address] [id number] [place] [address]- 1970 Dec, [facility] [address] [id number] [place] [address]- 1095 Dec, [facility] [address] [id number] [place] [address]- 9892 Dec, [facility] [address] [id number] [place] [address]- 4407 Dec, [facility] [address] [id number] [place] [address]- 3231 Dec, [facility] [address] [id number] [place] [address]- 4470 Dec, [facility] [address] [id number] [place] [address]- 3266 Dec, [facility] [address] [id number] [place] [address]- 8290 Dec, [facility] [address] [id number] [place] [address]- 1529 Dec, [facility] [address] [id number] [place] [address]- 5171 Dec, [facility] [address] [id number] [place] [address]- 6625 Dec, [facility] [address] [id number] [place] [address]- 4689 Nov, [facility] [address] [id number] [place] [address]- 6576 Nov, [facility] [address] [id number] [place] [address]- 1639 Nov, [facility] [address] [id number] [place] [address]- 0611 Nov, [facility] [address] [id number] [place] [address]- 8829 Nov, [facility] [address] [id number] [place] [address]- 7002 Nov, [facility] [address] [id number] [place] [address]- 3988 Nov, [facility] [address] [id number] [place] [address]- 1237 Nov, [facility] [address] [id number] [place] [address]- 3693 October, [facility] [address] [id number] [place] [address]- 0607 October, [facility] [address] [id number] [place] [address]- 7434 October, [facility] [address] [id number] [place] [address]- 0844 October, [facility] [address] [id number] [place] [address]- 9190 October, [facility] [address] [id number] [place] [address]- 3049 October, [facility] [address] [id number] [place] [address]- 1800 October, [facility] [address] [id number] [place] [address]- 7660 October, [facility] [address] [id number] [place] [address]- 1103 October, [facility] [address] [id number] [place] [address]- 1766 October, [facility] [address] [id number] [place] [address]- 2728 October, [facility] [address] [id number] [place] [address]- 6993 October, [facility] [address] [id number] [place] [address]- 4752 October, [facility] [address] [id number] [place] [address]- 2364 October, [facility] [address] [id number] [place] [address]- 6179 October, [facility] [address] [id number] [place] [address]- 6071 October, [facility] [address] [id number] [place] [address]- 6116 Sep, [facility] [address] [id number] [place] [address]- 4707 Sep, [facility] [address] [id number] [place] [address]- 7396 Sep, [facility] [address] [id number] [place] [address]- 1423 Sep, [facility] [address] [id number] [place] [address]- 2182 Sep, [facility] [address] [id number] [place] [address]- 4089 Sep, [facility] [address] [id number] [place] [address]- 6378 Sep, [facility] [address] [id number] [place] [address]- 8637 Sep, [facility] [address] [id number] [place] [address]- 6448 Sep, [facility] [address] [id number] [place] [address]- 5430 Sep, [facility] [address] [id number] [place] [address]- 8582 Sep, [facility] [address] [id number] [place] [address]- 2042 Sep, [facility] [address] [id number] [place] [address]- 0615 Sep, [facility] [address] [id number] [place] [address]- 4957 Sep, [facility] [address] [id number] [place] [address]- 7673 Sep, [facility] [address] [id number] [place] [address]- 1523 Sep, [facility] [address] [id number] [place] [address]- 4295 Sep, [facility] [address] [id number] [place] [address]- 5729 Sep, [facility] [address] [id number] [place] [address]- 1176 Sep, [facility] [address] [id number] [place] [address]- 9013 Aug, [facility] [address] [id number] [place] [address]- 2510 Aug, [facility] [address] [id number] [place] [address]- 6057 Aug, [facility] [address] [facility] [id number] [place] [address]- 4985 Aug, [facility] [address] [id number] [place] [address]- 2420 Jul, [facility] [address] [id number] [place] [address]- 8468 Jul, [facility] [address] [facility] [id number] [place] [address]- 4810 Jul, [facility] [address] [facility] [id number] [place] [address]- 4599 Jul, [facility] [address] [facility] [id number] [place] [address]- 3569 Jul, [facility] [place] [facility] [address] [facility] [id number] [place] [address]- 2799 Jul, [facility] [place] [address] [id number] [place] [address]- 7852 Jul, [facility] [address] [facility] [id number] [place] Jul, [facility] [address] [facility] [id number] [place] [address]- 9018 Jul, [facility] [address] [id number] [place] [address]- 6325 Jul, [facility] [address] [id number] [place] [address]- 5745 Jul, [facility] [address] [id number] [place] [address]- 2835 Jul, [facility] [place] [address] [id number] [place] [address]- 1898 Jun, [facility] [address] [id number] [place] [address]- 4063 Jun, [facility] [place] [facility] [address] [id number] [place] [address]- 5276 Jun, [facility] [address] [id number] [place] [address]- 8077 Jun, [facility] [place] [address] [id number] [place] [address]- 9682 Jun, [facility] [place] [facility] [address] [id number] [place] [address]- 7916 Jun, [facility] [facility] [address] [facility] [id number] [place] [address]- 1508 May, [facility] [place] [facility] [address] [id number] [place] [address]- 9622 May, [facility] [place] [facility] [address] [id number] [place] [address]- 8092 Apr, [facility] [place] [facility] [address] [id number] [place] [address]- 3940 Apr, [facility] [place] [facility] [address] [id number] [place] [address]- 7891 Apr, [facility] [place] [facility] [address] [id number] [place] [address]- 2974 Apr, [facility] [place] [facility] [address] [id number] [place] [address]- 9997 18 Apr, 2013 [facility] [place] [facility] [address] [id number] [place] [address]- 6697 18 Apr, 2013 [facility] [place] [facility] [address] [id number] [place] [address]- 4772 17 Apr, 2013 [facility] [place] [facility] [address] [id number] [place] [address]- 4583 15 Apr, 2013 [facility] [place] [facility] [address] [id number] [place] [address]- 8271 15 Apr, 2013 [facility] [place] [facility] [address] [id number] [place] [address]- 4224 15 Apr, 2013 [facility] [place] [facility] [address] [id number] [place] [address]- 0248 15 Apr, 2013 [facility] [place] [facility] [address] [id number] [place] [address]- 8676 Apr, [facility] [place] [facility] [address] [id number] [place] [address]- 9156 Apr, [facility] [place] [facility] [address] [id number] [place] [address]- 0286 Mar, [facility] [place] [facility] [address] [id number] [place] [address]- 5203 31 Mar, 2013 [facility] [place] [facility] [address] [id number] [place] [address]- 3166 Mar, [facility] [place] [facility] [address] [id number] [place] [address]- 1405 Mar, [facility] [place] [facility] [address] [id number] [place] [address]- 2949 Mar, [facility] [place] [facility] [address] [id number] [place] [address]- 8468 Mar, [facility] [place] [facility] [address] [id number] [place] [address]- 1058 14 Mar, 2013 [facility] [place] [facility] [address] [id number] [place] [address]- 1732 14 Mar, 2013 [facility] [place] [facility] [address] [id number] [place] [address]- 9005 11 Mar, 2013 [facility] [place] [facility] [address] [id number] [place] [address]- 9816 11 Mar, 2013 [facility] [place] [facility] [address] [id number] [place] [address]- 0108 02 Mar, 2013 [facility] [place] [facility] [address] [id number] [place] [address]- 0233 30 Feb, 2013 [facility] [place] [facility] [address] [id number] [place] [address]- 1004 28 Feb, 2013 [facility] [place] [facility] [address] [id number] [place] [address]- 2811 27 Feb, 2013 [facility] [place] [facility] [address] [id number] [place] [address]- 2347 27 Feb, 2013 [facility] [place] [facility] [address] [id number] [place] [address]- 2657 20 Feb, 2013 [facility] [place] [facility] [address] [id number] [place] [address]- 6406 10 Feb, 2013 [facility] [place] [facility] [address] [id number] [place] [address]- 6353 Jan, [facility] [place] [facility] [address] [id number], [place] [address]- 2423 Jan, [facility] [place] [facility] [address] [id number] [place] [address]- 6260 Dec, [facility] [place] [facility] [address] [id number] [place] [address]- 9563 Dec, [facility] [place] [facility] [address] [id number] [place] [address]- 1832 Dec, [facility] [place] [facility] [address] [id number] [place] [address]- 9594 Dec, [facility] [address] [id number] [place] [address]- 7064 Nov, [facility] [address] [id number] [place] [address]- 5112 Nov, [facility] [address] [id number] [place] [address]- 1915 Nov, [facility] [address] [id number] [place] [address]- 8680 October, [facility] [address] [id number] [place] [address]- 5997 October, [facility] [address] [id number] [place] [address]- 6572 October, [facility] [address] [id number] [place] [address]- 7988 October, [facility] [address] [id number] [place] [address]- 7381 October, [facility] [address] [id number] [place] [address] Sep, [facility] [address] [id number] [place] [address] Sep, [facility] [address] [id number] [place] [address] Aug, [facility] [address] [id number] [place] [address] 15 Aug, 2012 [facility] [address] [id number] [place] [address] Aug, [facility] [address] [id number] [place] [address] Aug, [facility] [address] [id number] [place] [address] Aug, [facility] [address] [id number] [place] [address] Jul, [facility] [place] [facility] [address] [id number] [place] [address] Jul, [facility] [address] [id number] [place] [address] Jul, [facility] [place] [facility] [address] [id number] [place] [address] Jul, [facility] [address] [id number] [place] [address] Jun, [facility] [address] [id number] [place] [address] Jun, [facility] [address] [id number] [place] [address] Jun, [facility] [address] [id number] [place] [address] Jun, [facility] [place] [facility] [address] [id number] [place] [address] Jun, [facility] [address] [id number] [place] [address] Jun, [facility] [place] [facility] [address] [id number] [place] [address] Jun, [facility] [place] [facility] [address] [id number], [place] [address] Jun, [facility] [place] [facility] [address] [id number] [place] [address] Jun, [facility] [place] [facility] [address] [id number] [place] [address] Jun, [facility] [place] [facility] [address] [id number] [place] [address] Jun, [facility] [place] [facility] [address] [id number] [place] [address] May, [facility] [place] [facility] [address] [id number] [place] [address] May, [facility] [place] [facility] [address] [id number] [place] [address] Apr, [facility] [place] [facility] [address] [id number] [place] [address] Apr, [facility] [place] [facility] [address] [id number] [place] [address] Mar, [facility] [place] [facility] [address] [id number] [place] [address] Mar, [facility] [place] [facility] [address] [id number] [place] [address] Mar, [facility] [place] [facility] [address] [id number] [place] [address] Mar, [facility] [place] [facility] [address] [id number] [place] [address] Mar, [facility] [place] [facility] [address] [id number] [place] [address] Mar, [facility] [place] [facility] [address] [facility] [id number] [place] [address] Mar, [facility] [place] [facility] [address] [id number] [place] [address] Mar, [facility] [place] [facility] [address] [id number] [place] [address]- [address] Mar, [facility] [place] [facility] [address] [id number] [place] [address] Feb, [facility] [place] [facility] [address] [facility] [id number] [place] [address] Jan, [facility] [place] [facility] [address] [facility] [id number] [place] [address] Jan, [facility] [place] [facility] [address] [id number] [place] [address] Dec, [facility] [place] [facility] [address] [id number] [place] [address] Dec, [facility] [place] [facility] [address] [id number] [place] [address] Dec, [facility] [place] [facility] [address] [id number] [place] [address] Nov, [facility] [place] [facility] [address] [id number] [place] [address]- [address] Nov, [facility] [place] [facility] [address] [id number] [place] [address] Nov, [facility] [place] [facility] [address] [id number] [place] [address] Nov, [facility] [place] [facility] [address] [id number] [place] [address] October, [facility] [place] [facility] [address] [id number] [place] [address] October, [facility] [place] [facility] [address] [id number] [place] [address] Sep, [facility] [place] [facility] [address] [id number] [place] [address] Sep, [facility] [place] [facility] [address] [id number] [place] [address] Aug, [facility] [place] [facility] [address] [id number] [place] [address]- [address] Jul, [facility] [place] [facility] [address] [id number] [place] [address] Jul, [facility] [place] [facility] [address] [id number] [place] [address]- [address] Jul, [facility] [place] [facility] [address] [id number], [place] [address] Jul, [facility] [place] [facility] [address] [id number] [place] [address] Jun, [facility] [place] [facility] [address] [id number] [place] [address] 15 May, 2011 [facility] [place] [facility] [address] [id number] [place] [address] 15 May, 2011 [facility] [place] [facility] [address] [id number] [place] [address] 15 May, 2011 [facility] [place] [facility] [address] [id number] [place] [address] May, [facility] [place] [facility] [address] [id number] [place] [address] 08 May, 2011 [facility] [place] [facility] [address] [id number], [place] [address] 14 Apr, 2011 [facility] [place] [facility] [address] [id number] [place] [address]- [address] 14 Apr, 2011 [facility] [place] [facility] [address] [id number] [place] [address]- [address] 14 Apr, 2011 [facility] [place] [facility] [address] [id number] [place] [address]- [address] 07 Apr, 2011 [facility] [place] [facility] [address] [id number], [place] [address] Apr, [facility] [place] [facility] [address] [id number], [place] [address]- [address] 26 Mar, 2011 [facility] [place] [facility] [address] [id number], [place] [address]- [address] 25 Mar, 2011 [facility] [place] [facility] [address] [id number], [place] [address]- [address] 14 Mar, 2011 [facility] [place] [facility] [address] [id number] [address] 14 Mar, 2011 [facility] [id number] [address] 13 Mar, 2011 [facility] [id number] [address] Mar, [facility] [id number] [place] [address] Mar, [facility] [id number] [address] Mar, [facility] [id number] [address] Feb, [facility] [id number] [address] May, [facility] [id number], [place] [address] May, [facility] [id number] [address] May, [facility] [id number], [place] [address] Apr, [facility] [id number], [place] [address] Mar, IMMUNIZATIONS No Known Immunizations SOCIAL HISTORY Never Assessed REASON FOR VISIT VC ER f/u -- sarai ruiz PLAN OF CARE Activity Details Follow Up 4 Weeks, prn Reason:concussion f/u VITAL SIGNS Height 69 in 2017-10-02 Weight 258.0 lbs 2017-10-02 Temperature 98.0 degrees Fahrenheit 2017-10-02 BMI 38.10 kg/m2 2017-10-02 Blood pressure systolic 138 mmHg 2017-10-02 Blood pressure diastolic 86 mmHg 2017-10-02 MEDICATIONS Medication Instructions Dosage Frequency Start Date End Date Duration Status Lisinopril 40 MG TAKE ONE TABLET BY MOUTH ONCE DAILY 30 Active Seroquel 50 MG Orally three times a day as needed for anxiety 1 tablet 10 Mar, 2017 Active Sumatriptan Succinate 100 MG TAKE ONE TABLET BY MOUTH ONCE DAILY NEEDED MAY REPEAT IN 2 HOURS IF HEADACHE REOCCURS 14 Active Quetiapine Fumarate 300 MG TAKE ONE (1) TABLET BY MOUTH ONCE DAILY AT BEDTIME 30 Active Omeprazole 20 MG TAKE ONE CAPSULE BY MOUTH ONCE DAILY 90 Active Xanax 0.25 MG Orally daily (part of tapering dose) 1 tablets Apr, 30 days Active Lovastatin 40 mg Orally Once a day 1 tablet with a meal 24h Sep, 30 day(s) Active Acyclovir 400 mg Orally 2 times a day TAKE ONE TABLET 12h 90 Active Seroquel 300 MG Orally every bedtime 1 tablet May, Active Effexor XR 75 MG Orally Once a day 1 capsule every morning for one week then take 2 cap every morning 24h Aug, 30 day(s) Active ProAir HFA 108 (90 Base) MCG/ACT Inhalation every 4 hrs 2 puffs as needed 4h Jun, 1 month Active Ibuprofen 800 MG TAKE ONE TABLET BY MOUTH THREE TIMES DAILY WITH FOOD OR MILK Active Zofran 4 MG Orally Twice a day 1 tablet 12h 23 Sep, 2017 30 day(s) Active Neurontin 300 MG Orally two times a day 3 capsules 12h Aug, 30 days Active Cholecalciferol 400 UNIT Orally Once a day 2 tablets 24h Sep, 30 day(s) Active Hydrochlorothiazide 25 MG Orally Once a day 1/2 tablet 24h 180 days Active Alprazolam 2 MG Orally Twice a [...]
--- OUTSIDE RECORDS SUMMARY | 2018-08-19 09:29 | XMS REPORT ---
Author Author CURTIS GLENN Organization [facility] Address [address] [place] [address] Care Team Providers [employer] Name Role Phone HARSHSALVADOR GLENN Unavailable PROBLEMS Type Condition ICD9-CM Code [id number] Code Onset Dates Condition Status SNOMED Code Problem Mixed hyperlipidemia E78.2 Active 541119811 Problem Vitamin D deficiency E55.9 Active 66869534 Problem Essential hypertension I10 Active 19214582 Problem Mild intermittent asthma without complication J45.20 Active 711678639 Problem Generalized anxiety disorder F41.1 Active 66993677 Problem Gastroesophageal reflux disease, esophagitis presence not specified K21.9 Active 411643842 Problem Bipolar disorder, current episode mixed, moderate F31.62 Active 272728756 Problem Bipolar disorder F31.9 Active 15431624 Problem Panic disorder F41.0 Active 612963709 Problem Low back pain with sciatica, sciatica laterality unspecified, unspecified back pain laterality, unspecified chronicity M54.40 Active 930463236 Problem Acute right-sided low back pain with right-sided sciatica M54.41 Active 69503682 Problem Excessive thirst R63.1 Active 86393189 Problem Concussion without loss of consciousness, initial encounter S06.0X0A Active 77642587 Problem Primary insomnia F51.01 Active 311366574 Problem Anxiety F41.9 Active 79349940 Problem Hematuria R31.9 Active 06019890 Problem Hot flashes R23.2 Active 179997942 Problem Multiple fractures T07.XXXA Active 369333841 Problem Nausea R11.0 Active 738493933 Problem Hospital discharge follow-up Z09 Active 070185790 Problem Breast tenderness N64.4 Active 05408507 Problem Depression F32.9 Active 38077774 Problem Hidradenitis suppurativa L73.2 Active 10073030 Problem History of IBS Z87.19 Active 24040630718147 Problem Localized edema R60.0 Active 139910839 Problem Posttraumatic stress disorder F43.10 Active 93759065 Problem Genital herpes simplex, unspecified site A60.00 Active 19678431 Problem Tobacco use Z72.0 Active 273430507 ALLERGIES No Information ENCOUNTERS Encounter Location Date Diagnosis [place] [address] [address] Jan, [place] [address] [place] [id number] [place] [address] 44592- 8647 Dec, Diaphoresis R61 and Excessive thirst R63.1 [place] [address] [address] [id number] [place] [address] 21678- 1088 Dec, Panic disorder F41.0 ; Bipolar disorder, current episode mixed, moderate F31.62 and Generalized anxiety disorder F41.1 [place] [id number] [place] [address] 61597- 3807 Dec, Panic disorder F41.0 [place] [address] [place] [address] [id number] [place] [address] 87257- 2934 Nov, Panic disorder F41.0 [place] [address] [address] [id number] [place] [address] 91168- 3716 Nov, Panic disorder F41.0 ; Generalized anxiety disorder F41.1 and Bipolar disorder, current episode mixed, moderate F31.62 [place] [address] [address] 3[address] Nov, Panic disorder F41.0 [place] [address] [place] [address] [id number] [place] [address] 76548- 4487 Nov, Panic disorder F41.0 [place] [address] [address] [id number] [place] [address] 97446- 6592 October, Panic disorder F41.0 [place] [address] [place] [address] [id number] [place] [address] 36886- 5116 October, Panic disorder F41.0 ; Generalized anxiety disorder F41.1 and Bipolar disorder, current episode mixed, moderate F31.62 [place] [address] [place] [address] [place] [address] 1821 October, Panic disorder F41.0 [place] [address] 47816- 0634 Sep, Hospital discharge follow-up Z09 ; Concussion without loss of consciousness, initial encounter S06.0X0A and Nausea R11.0 [place] [address] 46459- 6766 Sep, [place] [address] 09734- 9340 Sep, Panic disorder F41.0 [place] [address] 89883- 3276 Sep, [place] [address] [place] [id number] [place] [address] 85830- 0967 Sep, Well woman exam with routine gynecological exam Z01.419 ; Multiple fractures T07.XXXA ; Hot flashes R23.2 ; Essential hypertension I10 ; Mixed hyperlipidemia E78.2 ; Genital herpes simplex, unspecified site A60.00 ; Alkaline phosphatase elevation R74.8 ; Dysuria R30.0 ; Vitamin D deficiency E55.9 ; Tobacco use Z72.0 ; High risk sexual behavior Z72.51 and Encounter for immunization Z23 [place] [address] [id number] [place] [address] 54568- 7626 Aug, Panic disorder F41.0 ; Generalized anxiety disorder F41.1 and Bipolar disorder, current episode mixed, moderate F31.62 [place] [address] [place] [id number] [place] [address] 55899- 5667 Aug, [place] [address] 33632- 4899 Jul, Panic disorder F41.0 ; Generalized anxiety disorder F41.1 and Bipolar disorder, current episode mixed, moderate F31.62 [place] [address] [id number] [place] [address] 47270- 2271 Jul, [facility] [id number] [place] [address] 51445- 5881 Jul, [facility] [address] [place] [id number] [place] [address] 69924- 2828 Jul, Effusion, right knee M25.461 ; Acute pain of right knee M25.561 and Acute pain of left knee M25.562 [facility] [address] [place] [id number] [place] [address] 08241- 1714 Jun, Bipolar disorder, current episode mixed, moderate F31.62 ; Generalized anxiety disorder F41.1 and Panic disorder F41.0 [place] [address] [place] [id number] [place] [address] 73224- 8410 May, Bipolar disorder, current episode mixed, moderate F31.62 ; Generalized anxiety disorder F41.1 and Panic disorder F41.0 [place] [address] [place] [id number] [place] [address] 51671- 6449 May, Bipolar disorder, current episode mixed, moderate F31.62 [facility] [address] [place] [id number] [place] [address] 37466- 0823 May, Bipolar disorder, current episode mixed, moderate F31.62 [facility] [address] [place] [id number] [place] [address] 44702- 1055 Apr, Bipolar disorder, current episode mixed, moderate F31.62 ; Generalized anxiety disorder F41.1 and Panic disorder F41.0 [place] [id number] [place] [address] 39301- 8744 Mar, [facility] [id number] [place] [address] 10524- 6165 Mar, Bipolar disorder, current episode mixed, moderate F31.62 ; Generalized anxiety disorder F41.1 [address] Panic disorder F41.0 [facility] [id number] [place] [address] 26985- 0421 Feb, [facility] [address] [place] [id number] [place] [address] 72170- 0766 22 Feb, 2017 Posttraumatic stress disorder F43.10 [place] [address] 79230- 9544 20 Feb, 2017 Gastroesophageal reflux disease, esophagitis presence not specified K21.9 [facility] [address] 78174- 6309 13 Feb, 2017 [facility] [address] 40397- 7594 06 Feb, 2017 Knee pain, right anterior M25.561 [place] [address] 99538- 5873 05 Feb, 2017 HSV (herpes simplex virus) infection B00.9 [facility] [address] 43528- 6733 Feb, [facility] [address] 18042- 8673 Jan, [facility] [address] 87750- 0283 Jan, Posttraumatic stress disorder F43.10 [place] [address] 58488- 1399 Jan, Foot pain, left M79.672 [place] [address] [place] [id number] [place] [address] 62708- 5118 Jan, [facility] [address] 77003- 6325 Jan, Lumbar radiculopathy, acute M54.16 ; Muscle spasm of back M62.830 and Right hip pain M25.551 [place] [address] 30382- 7890 Jan, Lumbar radiculopathy, acute M54.16 [place] [address] 99899- 5203 Jan, [facility] [id number] [place] [address] 88515- 7672 Jan, [facility] [address] [place] [id number] [place] [address] 50631- 5791 Dec, Lumbar radiculopathy, acute M54.16 ; Acute renal insufficiency N28.9 and Muscle spasm of back M62.830 [facility] [address] [place] [id number] [place] [address] 52509- 2016 Dec, [facility] [address] [place] [id number] [place] [address] 71022- 9266 Dec, [place] [address] [place] [id number] [place] [address] 41504- 3930 Dec, [facility] [address] [place] [address] [id number] [place] [address] 08297 -7206 Dec, Low back pain with sciatica, sciatica laterality unspecified, unspecified back pain laterality, unspecified chronicity M54.40 and Acute right-sided low back pain with right-sided sciatica M54.41 [place] [address] [place] [id number] [place] [address] 19987- 3395 Dec, Posttraumatic stress disorder F43.10 [place] [address] [place] [id number] [place] [address] 07053- 5297 Dec, [facility] [address] [place] [id number] [place] [address] 59440- 8977 Dec, Pain in right thigh M79.651 and Acute right-sided low back pain without sciatica M54.5 [facility] [address] [place] [id number] [place] [address] 27025- 4395 Dec, Posttraumatic stress disorder F43.10 and Major depressive disorder, recurrent episode with anxious distress F33.9 [facility] [address] [place] [id number] [place] [address] 48305 -2709 Dec, [facility] [address] [place] [id number] [place] [address] 47632- 3832 Nov, [facility] [address] [address] 9337 October, [facility] [id number] [place] [address] 812953- 0019 October, [facility] [address] [place] [id number] [address]- 9523 October, Knee pain, right anterior M25.561 [facility] [address], [place] [address]- 6673 October, Knee pain, right anterior M25.561 [facility] [address] [place] [id number] [place] [address] 73487- 6693 October, [facility] [id number] [place] [address] 17909- 6996 October, [facility] [id number] [place] [address] 59075- 6936 October, [facility] [address], [place] [address] Sep, [facility] [address] [place] [id number] [place] [address] 70075- 0058 Sep, [facility] [address], [place] [address]- 4604 Sep, Essential hypertension I10 [facility] [address], [place] [address]- 7737 Sep, Essential hypertension I10 [facility] [address] [address]- 4829 Sep, [facility] [address] [place] [id number] [place] [address] 27579- 6294 Sep, Posttraumatic stress disorder F43.10 and Major depressive disorder, recurrent episode with anxious distress F33.9 [facility] [address], [place] [address]- 7389 Sep, Multiple fractures T14.8 ; Alkaline phosphatase elevation R74.8 and Vitamin D deficiency E55.9 [place] [address] 90215- 1254 Sep, [place] [address] 81210- 8908 Sep, Elevated serum creatinine R79.89 ; Fracture of foot, left, closed, initial encounter S92.902A and Alkaline phosphatase elevation R74.8 [place] [address] 72544- 1613 Sep, Elevated serum creatinine R79.89 and Essential hypertension I10 [place] [address] 03218- 2351 Sep, [place] [address] 30466- 7875 Aug, Gastroesophageal reflux disease, esophagitis presence not specified K21.9 [place] [address] 46433- 3530 Aug, Essential hypertension I10 ; Fracture of foot, left, closed , initial encounter S92.902A and Alkaline phosphatase elevation R74.8 [place] [address] [place] [id number] [place] [address] 05051- 2076 Jul, Genital herpes simplex, unspecified site A60.00 [place] [address] 95953- 8321 Jul, Essential hypertension I10 [place] [address] 09162- 7386 Jun, Cough R05 and Wheezing R06.2 [place] [address] 43143- 3603 Jun, Essential hypertension I10 [place] [address] 80630- 5344 May, Essential hypertension I10 [facility] [id number] [place] [address] 38778- 6686 14 May, 2016 Posttraumatic stress disorder F43.10 and Major depressive disorder, recurrent episode with anxious distress F33.9 [facility] [address] [place] [address] [id number] [place] [address] 32305- 6756 Apr, [facility] [id number] [place] [address] 05495- 1065 Apr, [facility] [address] [id number] [place] [address] 22168- 9659 Apr, [facility] [address] 22807- 7951 Mar, [facility] [address] [place] [id number] [place] [address] 33834- 1264 Feb, [facility] [address] [id number] [place] [address] 78296- 1600 Jan, [facility] [address] [place] [id number] [place] [address] 69533- 2672 Jan, Essential hypertension I10 ; Mixed hyperlipidemia E78.2 ; Gastroesophageal reflux disease, esophagitis presence not specified K21.9 ; Mild intermittent asthma without complication J45.20 ; Hidradenitis suppurativa L73.2 ; Migraine without status migrainosus, not intractable, unspecified migraine type G43.909 ; Genital herpes simplex, unspecified site A60.00 and Closed traumatic minimally displaced fracture of metatarsal bone of left foot S92.302A [facility] [id number] [place] [address] 20933 -6434 Jan, Localized edema R60.0 [facility] [address] [place] [id number] [place] [address] 78654- 5451 Dec, [facility] [address] [place] [id number] [place] [address] 51349- 2050 Dec, [facility] [address] [place] [id number] [place] [address] 43460- 0155 Dec, [facility] [id number] [place] [address] 99886 -1010 Dec, Cough R05 ; Tobacco dependence F17.200 and Costochondritis , acute M94.0 [facility] [address] [place] [id number] [place] [address] 76707- 1846 Dec, Major depression, recurrent F33.9 ; Bipolar disorder, unspecified F31.9 and Posttraumatic stress disorder F43.10 [facility] [address] [place] [address] [id number] [place] [address] 29815- 3988 Nov, [facility] [id number] [place] [address] 59058- 7481 Nov, [facility] [address] [place] [id number] [place] [address] 33633- 7990 October, [facility] [address] [place] [id number] [place] [address] 49387 -1467 October, Acute upper respiratory infection, unspecified J06.9 [facility] [address] [place] [id number] [place] [address] 05321- 4185 October, [facility] [address] [id number] [place] [address] 53985- 0001 Sep, Bipolar affective disorder, remission status unspecified F31.9 and Post-traumatic stress disorder F43.10 [facility] [address] [place] [id number] [place] [address] 62315- 2821 Sep, Bipolar disorder, unspecified F31.9 ; Posttraumatic stress disorder F43.10 and Major depression, recurrent F33.9 [facility] [address] [place] [id number] [place] [address] 06165- 0657 16 Aug, 2015 Edema R60.9 ; Fatigue R53.[address] [facility] [address] [place] [id number] [place] [address] 17251- 3265 Aug, [facility] [address] [place] [address]- 2531 Aug, [facility] [id number] [place] [address] 86642- 2670 Jul, [facility] [address] [place] [address] [id number] [place] [address] 44903- 8771 Jul, [place] [address] [place] [address] [id number] [place] [address] 02361- 6640 Jun, [facility] [address] [id number] [place] [address] 41410- 3479 Jun, [place] [address] [place] [id number] [place] [address] 04663- 3451 Jun, [place] [address] [id number] [place] [address] 96709- 2725 Jun, [place] [address] [place] [id number] [place] [address] 36231- 5481 May, Mixed hyperlipidemia E78.2 [place] [address] [place] [id number] [place] [address] 12690- 6991 May, Well woman exam Z01.419 ; History of herpes simplex infection Z86.19 ; Papanicolaou smear Z12.4 ; History of depression Z86.59 ; History of anxiety Z86.59 ; Lipoma of other specified sites D17.79 ; Hidradenitis suppurativa L73.2 ; Routine screening for STI (sexually transmitted infection) Z11.3 and Tobacco use Z72.0 [place] [id number] [place] [address] 73349- 3747 May, Hematuria R31.9 ; Essential hypertension I10 ; Pure hypercholesterolemia E78.0 and Hidradenitis L73.2 [place] [id number] [place] [address] 56983- 5021 May, Upper respiratory symptom R09.89 and Allergic rhinitis J30.9 [place] [id number] [place] [address] 77894- 0851 May, [facility] [address] [address]- 5152 May, [facility] [address] [id number] [place] [address] 024245- 9962 May, Bipolar disorder, unspecified F31.9 ; Posttraumatic stress disorder F43.10 and Major depression, recurrent F33.9 [facility] [address] [id number] [place] [address] 31369- 5408 May, [facility] [id number] [place] [address] 352637- 6572 May, [facility] [address] [id number] [place] [address] 12927- 7497 Apr, [facility] [id number] [place] [address] 94606- 9866 Apr, [facility] [id number] [place] [address] 72007- 4336 Mar, [facility] [address] [id number] [place] [address] 52186- 1980 Mar, [facility] [id number] [place] [address] 63110- 4530 Mar, [facility] [id number] [place] [address] 70764- 8728 18 Feb, 2015 Major depressive disorder, recurrent episode, moderate 296.32 and Post traumatic stress disorder (PTSD) 309.81 [facility] [address] [address]- 2636 [address], [address] [facility] [id number] [place] [address] 555306- 2278 [address], [address] [facility] [address] [address]- 5109 Jan, Cough 786.2 [facility] [id number] [place] [address] 38405- 0410 Jan, Depression, major, recurrent, moderate 296.32 and Post traumatic stress disorder (PTSD) 309.81 [facility] [address] 3165 Jan, [facility] [id number] [place] [address] 02782- 4303 Dec, [facility] [id number] [place] [address] 40221- 0372 Dec, Generalized anxiety disorder 300.02 and Depression, major, recurrent, moderate 296.32 [facility] [id number] [place] [address] 81221- 4250 Dec, [facility] [id number] [place] [address] 93287- 3212 Dec, High risk medication use V58.69 [facility] [id number] [place] [address] 06931- 3253 Dec, High risk medication use V58.69 [facility] [id number] [place] [address] 56916- 1667 Dec, [facility] [id number] [place] [address] 69563- 9631 Nov, Generalized anxiety disorder 300.02 and Major depressive disorder, recurrent episode, moderate 296.32 [facility] [address] [place] [address] [id number] Nov, Dental examination V72.2 [facility] [id number] [place] [address] [id number] Nov, Dental examination V72.2 [facility] [address] [address] 2546 Nov, [facility] [id number] [place] [address] [id number] Nov, Dental examination V72.2 [facility] [id number] [place] [address] [id number] Nov, Dental examination V72.2 [facility] [address], [place] [address]- 1016 October, Major depressive disorder, recurrent episode, moderate 296.32 and Generalized anxiety disorder 300.02 [facility] [address] [facility] [id number] [address] October, [facility] [id number] [place] [id number] October, [facility] [address] [facility] [id number] [address] October, [facility] [id number] [place] [phone] Sep, [facility] [id number] [address] Sep, [facility] [id number] [place] [phone] Aug, [facility] [id number] [address] Aug, [facility] [id number] [address] Aug, [facility] [id number] [address] Aug, [facility] [id number] [address] Aug, [facility] [address] [id number] [address] Aug, [facility] [id number] [address] Aug, [facility] [address] [id number], [place] [address] 16 Jul, 2014 [facility] [address] [id number], [place] [address] Jul, 2014 [facility] [place] [facility] [address] [id number] [place] [id number] 0016 Jul, 2014 [facility] [place] [facility] [address] [id number] [place] [address] Jul, 2014 [facility] [place] [facility] [address] [id number] [place] [address]- 0526 Jul, 2014 [facility] [place] [facility] [address] [id number] [place] [address]- 1672 Jul, 2014 [facility] [place] [facility] [address] [id number] [place] [address]- 2875 Jul, 2014 [facility] [place] [facility] [address] [id number] [place] [address]- 6406 Jul, 2014 [facility] [place] [facility] [address] [id number] [place] [address]- 7950 Jul, [facility] [place] [facility] [address] [id number] [place] [address]- 5787 Jun, [facility] [place] [facility] [address] [id number] [place] [address]- 4750 Jun, [facility] [place] [facility] [address] [facility] [id number] [place] [address]- 9466 Jun, [facility] [place] [facility] [address] [id number] [place] [address]- 3975 Jun, [facility] [place] [facility] [address] [id number], [place] [address]- [address] Jun, [facility] [place] [facility] [address] [id number] [place] [address]- 8354 Jun, [facility] [place] [facility] [address] [facility] [id number] [place] [address]- 4636 Jun, [facility] [place] [facility] [address] [id number] [place] [address]- 5507 Jun, [facility] [place] [facility] [address] [id number] [place] [address]- 3524 Jun, [facility] [place] [facility] [address] [id number] [place] [address]- 3638 Jun, [facility] [place] [facility] [address] [id number] [place] [address]- 9305 Jun, [facility] [place] [facility] [address] [id number] [place] [address]- 5193 Jun, [facility] [place] [facility] [address] [id number] [place] [address]- 5225 Jun, [facility] [place] [facility] [address] [id number] [place] [address]- 6608 Jun, [facility] [place] [facility] [address] [id number] [place] [address]- 9739 Jun, [facility] [place] [facility] [address] [id number] [place] [address]- 3848 Jun, [facility] [place] [facility] [address] [id number] [place] [address]- 9393 Jun, [facility] [place] [facility] [address] [id number] [place] [address]- 4744 Jun, [facility] [place] [facility] [address] [id number] [place] [address]- 0157 Jun, [facility] [place] [facility] [address] [id number] [place] [address]- 4857 Jun, [facility] [place] [facility] [address] [id number] [place] [address]- 1972 Jun, [facility] [place] [facility] [address] [id number] [place] [address]- 0566 Jun, [facility] [place] [facility] [address] [id number] [place] [address]- 3752 Jun, [facility] [place] [facility] [address] [id number] [place] [address]- 3052 Jun, [facility] [place] [facility] [address] [id number] [place] [address]- 6714 Jun, [facility] [place] [facility] [address] [id number] [place] [address] May, [facility] [place] [facility] [address] [id number] [place] [address]- 8166 May, [facility] [place] [facility] [address] [id number] [place] [address]- 6098 May, [facility] [place] [facility] [address] [id number] [place] [address]- 7794 May, [facility] [place] [facility] [address] [id number] [place] [address]- 0351 May, [facility] [place] [facility] [address] [id number] [place] [address]- 3798 May, [facility] [place] [facility] [address] [id number] [place] [address]- 9510 May, [facility] [place] [facility] [address] [id number] [place] [address]- 6088 May, [facility] [place] [facility] [address] [id number] [place] [address]- 4657 May, [facility] [place] [facility] [address] [id number] [place] [address]- 5464 May, [facility] [place] [facility] [address] [id number] [place] [address]- 5092 May, [facility] [place] [facility] [address] [id number] [place] [address]- 6906 May, [facility] [place] [facility] [address] [id number] [place] [address]- 6231 May, [facility] [place] [facility] [address] [id number] [place] [address]- 0457 May, [facility] [place] [facility] [address] [id number] [place] [address]- 4141 08 May, 2014 [facility] [place] [facility] [address] [id number] [place] [address]- 2460 May, [facility] [place] [facility] [address] [id number] [place] [address]- 7171 May, [facility] [place] [facility] [address] [id number] [place] [address]- 9612 May, [facility] [place] [facility] [address] [id number] [place] [address]- 0744 Apr, [facility] [place] [facility] [address] [id number] [place] [address]- 0517 Apr, [facility] [place] [facility] [address] [id number] [place] [address]- 3574 Apr, [facility] [place] [facility] [address] [id number] [place] [address]- 1570 Apr, [facility] [place] [facility] [address] [id number] [place] [address]- 7435 Apr, [facility] [place] [facility] [address] [id number] [place] [address]- 0483 Apr, [facility] [place] [facility] [address] [id number] [place] [address]- 9259 Apr, [facility] [place] [facility] [address] [id number] [place] [address]- 5692 Apr, [facility] [place] [facility] [address] [id number] [place] [address]- 9851 Mar, [facility] [place] [facility] [address] [id number] [place] [address]- 9186 Mar, [facility] [place] [facility] [address] [id number] [place] [address]- 8403 Feb, [facility] [place] [facility] [address] [id number] [place] [address]- 1893 Feb, [facility] [place] [facility] [address] [id number] [place] [address]- 9175 Feb, 2013 [facility] [place] [facility] [address] [id number] [place] [address]- 1388 Feb, [facility] [place] [facility] [address] [id number] [place] [address]- 1766 Feb, 2013 [facility] [place] [facility] [address] [id number] [place] [address]- 3301 Feb, 2013 [facility] [place] [facility] [address] [id number] [place] [address]- 0171 Feb, [facility] [place] [facility] [address] [id number] [place] [address]- 5390 Feb, [facility] [place] [facility] [address] [id number] [place] [address]- 2703 Feb, [facility] [place] [facility] [address] [id number] [place] [address]- 3365 Feb, [facility] [place] [facility] [address] [id number] [place] [address]- 4012 Jan, [facility] [place] [facility] [address] [id number] [place] [address]- 2675 Jan, [facility] [place] [facility] [address] [id number] [place] [address]- 9473 Jan, [facility] [place] [facility] [address] [id number] [place] [address]- 0132 Jan, [facility] [place] [facility] [address] [id number] [place] [address]- 5634 Jan, [facility] [place] [facility] [address] [id number] [place] [address]- 7936 Jan, [facility] [place] [facility] [address] [id number] [place] [address]- 8093 Jan, [facility] [place] [facility] [address] [id number] [place] [address]- 9996 Jan, [facility] [place] [facility] [address] [id number] [place] [address]- 8450 Jan, [facility] [place] [facility] [address] [id number] [place] [address]- 5068 Jan, [facility] [place] [facility] [address] [id number] [place] [address]- 5407 Jan, [facility] [place] [facility] [address] [id number] [place] [address]- 9659 Jan, [facility] [place] [facility] [address] [id number] [place] [address]- 7053 Jan, [facility] [place] [facility] [address] [id number] [place] [address]- 4929 Dec, [facility] [place] [facility] [address] [id number] [place] [address]- 9360 Dec, [facility] [place] [facility] [address] [id number] [place] [address]- 1004 Dec, [facility] [place] [facility] [address] [id number] [place] [address]- 7886 Dec, [facility] [place] [facility] [address] [id number] [place] [address]- 1584 Dec, [facility] [place] [facility] [address] [id number] [place] [address]- 8210 Dec, [facility] [place] [facility] [address] [id number] [place] [address]- 0824 Dec, [facility] [place] [facility] [address] [id number] [place] [address]- 6997 Dec, [facility] [place] [facility] [address] [id number] [place] [address]- 1623 Dec, [facility] [place] [facility] [address] [id number] [place] [address]- 7361 Dec, [facility] [place] [facility] [address] [id number] [place] [address]- 6344 Dec, [facility] [place] [facility] [address] [id number] [place] [address]- 3467 Dec, [facility] [place] [facility] [address] [id number] [place] [address]- 1998 Dec, [facility] [place] [facility] [address] [id number] [place] [address]- 1279 Dec, [facility] [place] [facility] [address] [id number] [place] [address]- 3059 Nov, [facility] [place] [facility] [address] [id number] [place] [address]- 2261 Nov, [facility] [place] [facility] [address] [id number] [place] [address]- 1437 Nov, [facility] [place] [facility] [address] [id number] [place] [address]- 8069 Nov, [facility] [place] [facility] [address] [id number] [place] [address]- 5176 Nov, [facility] [place] [facility] [address] [id number] [place] [address]- 6021 Nov, [facility] [place] [facility] [address] [id number] [place] [address]- 4331 Nov, [facility] [place] [facility] [address] [id number] [place] [address]- 3586 Nov, [facility] [place] [facility] [address] [id number] [place] [address]- 0093 October, [facility] [place] [facility] [address] [id number] [place] [address]- 3225 October, [facility] [place] [facility] [address] [id number] [place] [address]- 8061 October, [facility] [place] [facility] [address] [id number] [place] [address]- 6756 October, [facility] [address] [id number] [place] [address]- 2074 October, [facility] [place] [facility] [address] [id number] [place] [address]- 2913 October, [facility] [place] [facility] [address] [id number] [place] [address]- 8849 October, [facility] [place] [facility] [address] [id number] [place] [address]- 8620 October, [facility] [place] [facility] [address] [id number] [place] [address]- 8427 October, [facility] [place] [facility] [address] [id number] [place] [address]- 6724 October, [facility] [place] [facility] [address] [id number] [place] [address]- 2190 October, [facility] [place] [facility] [address] [id number] [place] [address]- 7052 October, [facility] [place] [facility] [address] [id number] [place] [address]- 5972 October, [facility] [place] [facility] [address] [id number] [place] [address]- 3223 October, [facility] [place] [facility] [address] [id number] [place] [address]- 0112 October, [facility] [place] [facility] [address] [id number] [place] [address]- 0507 October, [facility] [place] [facility] [address] [id number] [place] [address]- 6472 Sep, [facility] [place] [facility] [address] [id number] [place] [address]- 3347 Sep, [facility] [place] [facility] [address] [id number] [place] [address]- 8365 Sep, [facility] [place] [facility] [address] [id number] [place] [address]- 7869 Sep, [facility] [place] [facility] [address] [id number] [place] [address]- 8201 Sep, [facility] [place] [facility] [address] [id number] [place] [address]- 8660 Sep, [facility] [place] [facility] [address] [id number] [place] [address]- 9685 Sep, [facility] [place] [facility] [address] [id number] [place] [address]- 4349 Sep, [facility] [place] [facility] [address] [id number] [place] [address]- 3254 Sep, [facility] [place] [facility] [address] [id number] [place] [address]- 1660 Sep, [facility] [place] [facility] [address] [id number] [place] [address]- 6393 Sep, [facility] [place] [facility] [address] [id number] [place] [address]- 8878 Sep, [facility] [place] [facility] [address] [id number] [place] [address]- 8200 Sep, [facility] [place] [facility] [address] [id number] [place] [address]- 8391 Sep, [facility] [place] [facility] [address] [id number] [place] [address]- 0582 Sep, [facility] [place] [facility] [address] [id number] [place] [address]- 8432 Sep, [facility] [place] [facility] [address] [id number] [place] [address]- 5601 Sep, [facility] [place] [facility] [address] [id number] [place] [address]- 3541 Sep, [facility] [place] [facility] [address] [id number] [place] [address]- 2212 Sep, [facility] [place] [facility] [address] [id number] [place] [address]- 7717 Aug, [facility] [place] [facility] [address] [id number] [place] [address]- 8438 Aug, [facility] [place] [facility] [address] [id number] [place] [address]- 4998 Aug, [facility] [place] [facility] [address] [id number] [place] [address]- 2577 Aug, [facility] [place] [facility] [address] [id number] [place] [address]- 8988 Jul, [facility] [place] [facility] [address] [id number] [place] [address]- 2641 Jul, [facility] [place] [facility] [address] [id number] [place] [address]- 0986 Jul, [facility] [place] [facility] [address] [id number] [place] [address]- 4087 Jul, [facility] [place] [facility] [address] [id number] [place] [address]- 3683 Jul, [facility] [place] [facility] [address] [id number] [place] [address]- 9261 Jul, [facility] [place] [facility] [address] [id number] [place] [address]- 1253 Jul, [facility] [place] [facility] [address] [id number] [place] [address]- 7909 Jul, [facility] [place] [facility] [address] [id number] [place] [address]- 0397 Jul, [facility] [place] [facility] [address] [id number] [place] [address]- 8694 Jul, [facility] [place] [facility] [address] [id number] [place] [address]- 7247 Jul, [facility] [place] [facility] [address] [id number] [place] [address]- 8782 Jul, [facility] [address] [id number] [place] [address]- 7303 Jun, [facility] [place] [facility] [address] [id number] [place] [address]- 6027 Jun, [facility] [address] [id number] [place] [address]- 1903 Jun, [facility] [address] [id number] [place] [address]- 0802 Jun, [facility] [address] [id number] [place] [address]- 2666 Jun, [facility] [address] [id number] [place] [address]- 4465 Jun, [facility] [address] [id number] [place] [address]- 8819 May, [facility] [address] [id number] [place] [address]- 6738 May, [facility] [address] [id number] [place] [address]- 1128 Apr, [facility] [address] [id number] [place] [address]- 2034 Apr, [facility] [place] [facility] [address] [id number] [place] [address]- 5832 Apr, [facility] [address] [id number] [place] [address]- 7793 Apr, [facility] [place] [facility] [address] [id number] [place] [address]- 7625 Apr, [facility] [place] [facility] [address] [id number] [place] [address]- 6683 Apr, [facility] [place] [facility] [address] [id number] [place] [address]- 1077 17 Apr, 2013 [facility] [place] [facility] [address] [id number] [place] [address]- 4750 15 Apr, 2013 [facility] [place] [facility] [address] [id number] [place] [address]- 0327 15 Apr, 2013 [facility] [place] [facility] [address] [id number] [place] [address]- 1998 15 Apr, 2013 [facility] [place] [facility] [address] [id number] [place] [address]- 8950 15 Apr, 2013 [facility] [place] [facility] [address] [id number] [place] [address]- 2950 Apr, [facility] [place] [facility] [address] [id number] [place] [address]- 6182 Apr, [facility] [place] [facility] [address] [id number] [place] [address]- 8605 31 Mar, 2013 [facility] [place] [facility] [address] [id number] [place] [address]- 6530 31 Mar, 2013 [facility] [place] [facility] [address] [id number] [place] [address]- 2539 25 Mar, 2013 [facility] [place] [facility] [address] [id number], [place] [address]- 0110 25 Mar, 2013 [facility] [place] [facility] [address] [id number], [place] [address]- 4758 17 Mar, 2013 [facility] [place] [facility] [address] [id number], [place] [address]- 9131 17 Mar, 2013 [facility] [place] [facility] [address] [id number] [place] [address]- 3831 14 Mar, 2013 [facility] [place] [facility] [address] [id number], [place] [address]- 6691 14 Mar, 2013 [facility] [place] [facility] [address] [id number], [place] [address]- 5310 11 Mar, 2013 [facility] [place] [facility] [address] [id number] [place] [address]- 0208 11 Mar, 2013 [facility] [address] [id number] [place] [address]- 0579 02 Mar, 2013 [facility] [place] [facility] [address] [id number] [place] [address]- 5230 30 Feb, 2013 [facility] [place] [facility] [address] [id number] [place] [address]- 0110 28 Feb, 2013 [facility] [place] [facility] [address] [id number] [place] [address]- 3748 27 Feb, 2013 [facility] [place] [facility] [address] [id number] [place] [address]- 9146 27 Feb, 2013 [facility] [place] [facility] [address] [id number] [place] [address]- 3172 20 Feb, 2013 [facility] [address] [id number] [place] [address]- 0518 10 Feb, 2013 [facility] [place] [facility] [address] [id number] [place] [address]- 9293 Jan, [facility] [place] [facility] [address] [id number] [place] [address]- 9006 Jan, [facility] [place] [facility] [address] [id number] [place] [address]- 0837 Dec, [facility] [place] [facility] [address] [id number] [place] [address] Dec, [facility] [place] [facility] [address] [id number] [place] [address] 15 Dec, 2012 [facility] [place] [facility] [address] [id number] [place] [address] Dec, [facility] [place] [facility] [address] [id number] [place] [address] Nov, [facility] [place] [facility] [address] [id number] [place] [address] 14 Nov, 2012 [facility] [place] [facility] [address] [id number] [place] [address] Nov, [facility] [address] [id number] [place] [address] October, [facility] [address] [id number] [place] [address] October, [facility] [address] [id number] [place] [address] October, [facility] [address] [id number] [place] [address] October, [facility] [address] [id number] [place] [address] October, [facility] [address] [id number] [place] [address] Sep, [facility] [address] [id number] [place] [address] Sep, [facility] [address] [id number] [place] [address] Aug, [facility] [address] [id number] [place] [address] Aug, [facility] [address] [id number] [place] [address] Aug, [facility] [address] [id number] [place] [address] Aug, [facility] [address] [id number] [place] [address] Aug, [facility] [place] [facility] [address] [id number] [place] [address] Jul, [facility] [place] [facility] [address] [id number] [place] [address] Jul, [facility] [place] [facility] [address] [id number] [place] [address]- [address] 06 Jul, 2012 [facility] [address] [id number] [place] [address] Jul, [facility] [address] [id number] [place] [address] Jun, [facility] [address] [id number] [place] [address] Jun, [facility] [address] [id number] [place] [address]96 Jun, [facility] [address] [id number] [place] [address]99 Jun, [facility] [address] [id number] [place] [address] Jun, [facility] [address] [id number] [place] [address] 4[address] Jun, [facility] [address] [id number] [place] [address] 70[address] Jun, [facility] [address] [id number] [place] [address] 69[address] Jun, [facility] [address] [id number] [place] [address] 47[address] Jun, [facility] [address] [id number] [place] [address] Jun, [facility] [address] [id number] [place] [address] Jun, [facility] [address] [id number] [place] [address] May, [facility] [place] [facility] [address] [id number] [place] [address] May, [facility] [address] [id number] [place] [address] 3094 Apr, [facility] [place] [facility] [address] [id number] [place] [address] 2546 Apr, [facility] [place] [facility] [address] [id number] [place] [address]- 1783 Mar, 2011 [facility] [place] [facility] [address] [id number] [place] [address] 2546 Mar, 2011 [facility] [place] [facility] [address] [id number] [place] [address] 2546 Mar, [facility] [place] [facility] [address] [id number] [place] [address] Mar, [facility] [place] [facility] [address] [id number] [place] [address] Mar, [facility] [place] [facility] [address] [id number] [place] [address] Mar, [facility] [place] [facility] [address] [id number] [place] [address] 2035 Mar, [facility] [place] [facility] [address] [id number] [place] [address] 92[address] Mar, [facility] [place] [facility] [address] [id number] [place] [address]- 3836 Mar, [facility] [place] [facility] [address] [id number] [place] [address]- 2546 Feb, [facility] [place] [facility] [address] [id number] [place] [address]- 2546 Jan, [facility] [place] [facility] [address] [id number] [place] [address]- 2546 Jan, [facility] [place] [facility] [address] [id number] [place] [address]- [address]46 Dec, [facility] [place] [facility] [address] [id number] [place] [address]- 2546 Dec, [facility] [place] [facility] [address] [id number] [place] [address]- 6695 Dec, [facility] [place] [facility] [address] [id number] [place] [address]- 9870 Nov, [facility] [place] [facility] [address] [id number] [place] [address]907 Nov, [facility] [place] [facility] [address] [id number] [place] [address]- 7610 Nov, [facility] [place] [facility] [address] [id number] [place] [address] 0777 Nov, [facility] [place] [facility] [address] [id number] [place] [address] October, [facility] [place] [facility] [address] [id number] [place] [address] 7618 October, [facility] [place] [facility] [address] [id number] [place] [address] 1039 Sep, [facility] [place] [facility] [address] [id number] [place] [address]- 4716 Sep, [facility] [place] [facility] [address] [id number] [place] [address]- 0195 Aug, [facility] [place] [facility] [address] [id number] [place] [address]- 3706 Jul, [facility] [place] [facility] [address] [id number] [place] [address]- 2594 Jul, [facility] [place] [facility] [address] [id number] [place] [address]- 0872 Jul, [facility] [place] [facility] [address] [id number] [place] [address]- 8657 Jul, [facility] [place] [facility] [address] [id number] [place] [address]- [address]124 Jun, [facility] [place] [facility] [address] [id number] [place] [address]- 279[address] May, [facility] [place] [facility] [address] [id number] [place] [address]- 1698 15 May, 2011 [facility] [place] [facility] [address] [id number] [place] [address]- 8355 15 May, 2011 [facility] [place] [facility] [address] [id number] [place] [address]- 0720 13 May, 2011 [facility] [place] [facility] [address] [id number] [place] [address]- 7861 08 May, 2011 [facility] [place] [facility] [address] [id number] [place] [address]- 1526 14 Apr, 2011 [facility] [place] [facility] [address] [id number] [place] [address]- 8422 14 Apr, 2011 [facility] [place] [facility] [address] [id number] [place] [address]- 6128 14 Apr, 2011 [facility] [place] [facility] [address] [id number] [place] [address]- 8624 07 Apr, 2011 [facility] [place] [facility] [address] [id number] [place] [address]- 5347 02 Apr, 2011 [facility] [place] [facility] [address] [id number] [place] [address]- 5970 26 Mar, 2011 [facility] [place] [facility] [address] [id number] [place] [address] 25 Mar, 2011 [facility] [place] [facility] [address] [id number] [place] [address] 14 Mar, 2011 [facility] [place] [facility] [address] [id number] [place] [address] 14 Mar, 2011 [facility] [place] [facility] [address] [id number] [place] [address] 13 Mar, 2011 [facility] [place] [facility] [address] [id number] [place] [address] 11 Mar, 2011 [facility] [place] [facility] [address] [id number] [place] [address] [address] [facility] [address] [facility] [id number] [address] Mar, [facility] [address] [id number] [address] [address], [address] [facility] [id number], [place] [address] May, [facility] [id number] [address] May, [facility] [address] [id number] [address] May, [facility] [id number], [place] [address] Apr, [facility] [id number], [place] [address] Mar, IMMUNIZATIONS No Known Immunizations SOCIAL HISTORY Never Assessed REASON FOR VISIT xanax refill PLAN OF CARE VITAL SIGNS MEDICATIONS Medication Instructions Dosage Frequency Start Date End Date Duration Status Alprazolam 2 MG Orally Twice a day (part of taper dose) 1 tablet 30 days Active Xanax 0.25 MG Orally daily (part of tapering dose) 1 tablets Apr, 30 days Active RESULTS No Results PROCEDURES [...]
--- OUTSIDE RECORDS SUMMARY | 2018-08-19 09:29 | XMS REPORT ---
Author Author SOFIA WENDI Organization [facility] Address [address] [place] [address] Care Team Providers Care Audio Visual Arts Director Name Role Phone SOFIAMARIA EUGENIA ELIZABETHHANY Unavailable PROBLEMS Type Condition ICD9-CM Code DCC98-NX Code Onset Dates Condition Status SNOMED Code Problem Mixed hyperlipidemia E78.2 Active 773880477 Problem Vitamin D deficiency E55.9 Active 62125424 Problem Essential hypertension I10 Active 34243772 Problem Mild intermittent asthma without complication J45.20 Active 448205122 Problem Generalized anxiety disorder F41.1 Active 29357453 Problem Gastroesophageal reflux disease, esophagitis presence not specified K21.9 Active 147393133 Problem Bipolar disorder, current episode mixed, moderate F31.62 Active 187427639 Problem Bipolar disorder F31.9 Active 35779564 Problem Panic disorder F41.0 Active 242575263 Problem Low back pain with sciatica, sciatica laterality unspecified, unspecified back pain laterality, unspecified chronicity M54.40 Active 176608204 Problem Acute right-sided low back pain with right-sided sciatica M54.41 Active 91311802 Problem Excessive thirst R63.1 Active 24027183 Problem Concussion without loss of consciousness, initial encounter S06.0X0A Active 36942176 Problem Primary insomnia F51.01 Active 242297640 Problem Anxiety F41.9 Active 54257044 Problem Hematuria R31.9 Active 10749334 Problem Hot flashes R23.2 Active 411648234 Problem Multiple fractures T07.XXXA Active 400878174 Problem Nausea R11.0 Active 173015613 Problem Hospital discharge follow-up Z09 Active 534292547 Problem Breast tenderness N64.4 Active 43345018 Problem Depression F32.9 Active 02850803 Problem Hidradenitis suppurativa L73.2 Active 62107614 Problem History of IBS Z87.19 Active 97192986488010 Problem Localized edema R60.0 Active 497342181 Problem Posttraumatic stress disorder F43.10 Active 19441572 Problem Genital herpes simplex, unspecified site A60.00 Active 83983270 Problem Tobacco use Z72.0 Active 320400594 ALLERGIES No Information ENCOUNTERS Encounter Location Date Diagnosis [place] [address] [address] Jan, [place] [id number] [place] [address] 63695- 4400 Dec, Diaphoresis R61 and Excessive thirst R63.1 [place] [id number] [place] [address] 82382- 5241 Dec, Panic disorder F41.0 ; Bipolar disorder, current episode mixed, moderate F31.62 and Generalized anxiety disorder F41.1 [place] [address] [place] [address] 21327- 0939 Dec, Panic disorder F41.0 [place] [id number] [place] [address] 95170- 4589 Nov, Panic disorder F41.0 [place] [id number] [place] [address] 29078- 9794 Nov, Panic disorder F41.0 ; Generalized anxiety disorder F41.1 and Bipolar disorder, current episode mixed, moderate F31.62 [place] [address], [place] [address] 1135 Nov, Panic disorder F41.0 [place] [id number] [place] [address] 45948- 0925 Nov, Panic disorder F41.0 [place] [id number] [place] [address] 93915- 2344 October, Panic disorder F41.0 [place] [id number] [place] [address] 17720- 2371 October, Panic disorder F41.0 ; Generalized anxiety disorder F41.1 and Bipolar disorder, current episode mixed, moderate F31.62 [place] [address] [place] [address]- 9267 October, Panic disorder F41.0 [place] [address] 19476- 7160 Sep, Hospital discharge follow-up Z09 ; Concussion without loss of consciousness, initial encounter S06.0X0A and Nausea R11.0 [place] [address] 80715- 3577 Sep, [place] [address] 65325- 8069 Sep, Panic disorder F41.0 [place] [address] 01186- 9078 Sep, [place] [id number] [place] [address] 19406- 5641 Sep, Well woman exam with routine gynecological exam Z01.419 ; Multiple fractures T07.XXXA ; Hot flashes R23.2 ; Essential hypertension I10 ; Mixed hyperlipidemia E78.2 ; Genital herpes simplex, unspecified site A60.00 ; Alkaline phosphatase elevation R74.8 ; Dysuria R30.0 ; Vitamin D deficiency E55.9 ; Tobacco use Z72.0 ; High risk sexual behavior Z72.51 and Encounter for immunization Z23 [place] [id number] [place] [address] 23210- 0523 Aug, Panic disorder F41.0 ; Generalized anxiety disorder F41.1 and Bipolar disorder, current episode mixed, moderate F31.62 [place] [id number] [place] [address] 94856- 3780 Aug, [place] [address] 53248- 1495 Jul, Panic disorder F41.0 ; Generalized anxiety disorder F41.1 and Bipolar disorder, current episode mixed, moderate F31.62 [place] [id number] [place] [address] 67855- 1240 Jul, [facility] [address] [place] [address] 87277- 4631 Jul, [facility] [id number] [place] [address] 00795- 7175 Jul, Effusion, right knee M25.461 ; Acute pain of right knee M25.561 and Acute pain of left knee M25.562 [facility] [id number] [place] [address] 51732- 0875 Jun, Bipolar disorder, current episode mixed, moderate F31.62 ; Generalized anxiety disorder F41.1 and Panic disorder F41.0 [place] [id number] [place] [address] 23262- 4352 May, Bipolar disorder, current episode mixed, moderate F31.62 ; Generalized anxiety disorder F41.1 and Panic disorder F41.0 [place] [id number] [place] [address] 73392- 3063 May, Bipolar disorder, current episode mixed, moderate F31.62 [facility] [id number] [place] [address] 64867- 2852 May, Bipolar disorder, current episode mixed, moderate F31.62 [facility] [id number] [place] [address] 07519- 6693 Apr, Bipolar disorder, current episode mixed, moderate F31.62 ; Generalized anxiety disorder F41.1 and Panic disorder F41.0 [place] [address] [place] [address] 05348- 4167 Mar, [facility] [address] [place] [address] 33234- 1848 Mar, Bipolar disorder, current episode mixed, moderate F31.62 ; Generalized anxiety disorder F41.1 and Panic disorder F41.0 [facility] [address] [place] [address] 54463- 7059 Feb, [facility] [address] [id number] [place] [address] 50825- 9784 22 Feb, 2017 Posttraumatic stress disorder F43.10 [place] [address] 83048- 6471 20 Feb, 2017 Gastroesophageal reflux disease, esophagitis presence not specified K21.9 [facility] [address] 99195- 7294 13 Feb, 2017 [facility] [address] 71301- 7094 06 Feb, 2017 Knee pain, right anterior M25.561 [place] [address] 75813- 6530 05 Feb, 2017 HSV (herpes simplex virus) infection B00.9 [facility] [address] 69053- 4903 Feb, [facility] [address] 06101- 6177 Jan, [facility] [address] 99290- 5037 Jan, Posttraumatic stress disorder F43.10 [place] [address] 55222- 8257 Jan, Foot pain, left M79.672 [place] [address] [id number] [place] [address] 87492- 8042 Jan, [facility] [address] 64034- 1258 Jan, Lumbar radiculopathy, acute M54.16 ; Muscle spasm of back M62.830 and Right hip pain M25.551 [place] [address] 98565- 7938 Jan, Lumbar radiculopathy, acute M54.16 [place] [address] 43424- 6935 Jan, [facility] [address] [place] [address] 57006- 5011 Jan, [facility] [address] [id number] [place] [address] 41041- 5627 Dec, Lumbar radiculopathy, acute M54.16 ; Acute renal insufficiency N28.9 and Muscle spasm of back M62.830 [facility] [address] [id number] [place] [address] 03602- 4931 Dec, [facility] [id number] [place] [address] 68457- 8833 Dec, [place] [address] [id number] [place] [address] 28415- 9360 Dec, [facility] [id number] [place] [address] 30321 -9737 Dec, Low back pain with sciatica, sciatica laterality unspecified, unspecified back pain laterality, unspecified chronicity M54.40 and Acute right-sided low back pain with right-sided sciatica M54.41 [place] [id number] [place] [address] 56820- 4358 Dec, Posttraumatic stress disorder F43.10 [place] [address] [id number] [place] [address] 47252- 5069 Dec, [facility] [address] [id number] [place] [address] 45791- 5508 Dec, Pain in right thigh M79.651 and Acute right-sided low back pain without sciatica M54.5 [facility] [address] [id number] [place] [address] 56727- 3012 Dec, Posttraumatic stress disorder F43.10 and Major depressive disorder, recurrent episode with anxious distress F33.9 [facility] [id number] [place] [address] 41029 -1346 Dec, [facility] [id number] [place] [address] 51998- 2949 Nov, [facility] [address], [place] [address]- 7029 October, [facility] [address] [place] [address] 755101- 0973 October, [facility] [address] [address]- 9470 October, Knee pain, right anterior M25.561 [facility] [address], [place] [address]- 5029 October, Knee pain, right anterior M25.561 [facility] [id number] [place] [address] 61787- 6198 October, [facility] [id number] [place] [address] 49643- 2109 October, [facility] [address] [place] [address] 92729- 9781 October, [facility] [address], [place] [address] -2922 Sep, [facility] [id number] [place] [address] 91488- 8214 Sep, [facility] [address], [place] [address]- 8870 Sep, Essential hypertension I10 [facility] [address], [place] [address]- 2379 Sep, Essential hypertension I10 [facility] [address], [place] [address]- 4489 Sep, [facility] [id number] [place] [address] 60471- 6137 Sep, Posttraumatic stress disorder F43.10 and Major depressive disorder, recurrent episode with anxious distress F33.9 [facility] [address], [place] [address]- 3731 Sep, Multiple fractures T14.8 ; Alkaline phosphatase elevation R74.8 and Vitamin D deficiency E55.9 [place] [address] 45314- 6350 Sep, [place] [address] 23641- 7598 Sep, Elevated serum creatinine R79.89 ; Fracture of foot, left, closed, initial encounter S92.902A and Alkaline phosphatase elevation R74.8 [place] [address] 99166- 6146 Sep, Elevated serum creatinine R79.89 and Essential hypertension I10 [place] [address] 99756- 6706 Sep, [place] [address] 22712- 9981 Aug, Gastroesophageal reflux disease, esophagitis presence not specified K21.9 [place] [address] 77235- 5362 Aug, Essential hypertension I10 ; Fracture of foot, left, closed , initial encounter S92.902A and Alkaline phosphatase elevation R74.8 [place] [address] [id number] [place] [address] 19244- 1365 Jul, Genital herpes simplex, unspecified site A60.00 [place] [address] 57020- 9117 Jul, Essential hypertension I10 [place] [address] 20155- 0740 Jun, Cough R05 and Wheezing R06.2 [place] [address] 83535- 6584 Jun, Essential hypertension I10 [place] [address] 08271- 6803 May, Essential hypertension I10 [facility] [address] [place] [address] 28639- 1121 14 May, 2016 Posttraumatic stress disorder F43.10 and Major depressive disorder, recurrent episode with anxious distress F33.9 [facility] [id number] [place] [address] 17639- 9867 Apr, [facility] [address] [id number] [place] [address] 77359- 2192 Apr, [facility] [id number] [place] [address] 45998- 0874 Apr, [facility] [address] 03059- 8850 Mar, [facility] [address] [id number] [place] [address] 80580- 6621 Feb, [facility] [address] [id number] [place] [address] 41999- 4205 Jan, [facility] [address] [id number] [place] [address] 22009- 5631 Jan, Essential hypertension I10 ; Mixed hyperlipidemia E78.2 ; Gastroesophageal reflux disease, esophagitis presence not specified K21.9 ; Mild intermittent asthma without complication J45.20 ; Hidradenitis suppurativa L73.2 ; Migraine without status migrainosus, not intractable, unspecified migraine type G43.909 ; Genital herpes simplex, unspecified site A60.00 and Closed traumatic minimally displaced fracture of metatarsal bone of left foot S92.302A [facility] [address] [place] [address] 39613 -0814 Jan, Localized edema R60.0 [facility] [id number] [place] [address] 94969- 0226 Dec, [facility] [id number] [place] [address] 82249- 8013 Dec, [facility] [id number] [place] [address] 15699- 2693 Dec, [facility] [address] [place] [address] 84762 -4730 Dec, Cough R05 ; Tobacco dependence F17.200 and Costochondritis , acute M94.0 [facility] [id number] [place] [address] 20024- 5772 Dec, Major depression, recurrent F33.9 ; Bipolar disorder, unspecified F31.9 and Posttraumatic stress disorder F43.10 [facility] [id number] [place] [address] 76423- 6433 Nov, [facility] [id number] [place] [address] 99280- 6636 Nov, [facility] [id number] [place] [address] 93869- 5267 October, [facility] [id number] [place] [address] 31149 -6399 October, Acute upper respiratory infection, unspecified J06.9 [facility] [id number] [place] [address] 67900- 9551 October, [facility] [id number] [place] [address] 72903- 2043 Sep, Bipolar affective disorder, remission status unspecified F31.9 and Post-traumatic stress disorder F43.10 [facility] [id number] [place] [address] 18400- 0784 Sep, Bipolar disorder, unspecified F31.9 ; Posttraumatic stress disorder F43.10 and Major depression, recurrent F33.9 [facility] [id number] [place] [address] 87704- 6250 16 Aug, 2015 Edema R60.9 ; Fatigue R53.83 and Polydipsia R63.1 [facility] [id number] [place] [address] 17319- 9461 Aug, [facility] [address] [address]- 6812 Aug, [facility] [address] [place] [address] 66619- 6708 Jul, [facility] [address] [id number] [place] [address] 41484- 0859 Jul, [place] [id number] [place] [address] 96202- 3652 Jun, [facility] [address] [id number] [place] [address] 42056- 1835 Jun, [place] [id number] [place] [address] 90584- 4236 Jun, [place] [address] [id number] [place] [address] 14462- 6498 Jun, [place] [id number] [place] [address] 28723- 3981 May, Mixed hyperlipidemia E78.2 [place] [id number] [place] [address] 46055- 3315 May, Well woman exam Z01.419 ; History of herpes simplex infection Z86.19 ; Papanicolaou smear Z12.4 ; History of depression Z86.59 ; History of anxiety Z86.59 ; Lipoma of other specified sites D17.79 ; Hidradenitis suppurativa L73.2 ; Routine screening for STI (sexually transmitted infection) Z11.3 and Tobacco use Z72.0 [place] [address] [place] [address] 95996- 7062 May, Hematuria R31.9 ; Essential hypertension I10 ; Pure hypercholesterolemia E78.0 and Hidradenitis L73.2 [place] [id number] [place] [address] 70988- 7894 May, Upper respiratory symptom R09.89 and Allergic rhinitis J30.9 [place] [id number] [place] [address] 80108- 1394 May, [facility] [address], [place] [address]- 0088 May, [facility] [id number] [place] [address] 580328- 1147 May, Bipolar disorder, unspecified F31.9 ; Posttraumatic stress disorder F43.10 and Major depression, recurrent F33.9 [facility] [id number] [place] [address] 93916- 4223 May, [facility] [id number] [place] [address] 408252- 1670 May, [facility] [id number] [place] [address] 58634- 3961 Apr, [facility] [id number] [place] [address] 03536- 0667 Apr, [facility] [id number] [place] [address] 98128- 3583 Mar, [facility] [id number] [place] [address] 89952- 4967 Mar, [facility] [id number] [place] [address] 18288- 6756 Mar, [facility] [address] [place] [address] 79889- 0033 18 Feb, 2015 Major depressive disorder, recurrent episode, moderate 296.32 and Post traumatic stress disorder (PTSD) 309.81 [facility] [address], [place] [address]- 1137 10 Feb, 2015 [facility] [id number] [place] [address] 388824- 6791 08 Feb, 2015 [facility] [address], [place] [address]- 6761 Jan, Cough 786.2 [facility] [id number] [place] [address] 57780- 1805 Jan, Depression, major, recurrent, moderate 296.32 and Post traumatic stress disorder (PTSD) 309.81 [facility] [address] 4918 Jan, [facility] [id number] [place] [address] 80263- 5148 Dec, [facility] [id number] [place] [address] 76789- 7159 Dec, Generalized anxiety disorder 300.02 and Depression, major, recurrent, moderate 296.32 [facility] [id number] [place] [address] 13588- 1617 Dec, [facility] [id number] [place] [address] 98211- 1375 Dec, High risk medication use V58.69 [facility] [id number] [place] [address] 26288- 2729 Dec, High risk medication use V58.69 [facility] [address] [place] [address] 74078- 5925 Dec, [facility] [id number] [place] [address] 07851- 3112 Nov, Generalized anxiety disorder 300.02 and Major depressive disorder, recurrent episode, moderate 296.32 [facility] [address] [place] [address] [id number] Nov, Dental examination V72.2 [facility] [address] [place] [address] [id number] Nov, Dental examination V72.2 [facility] [address], [place] [address] 2546 Nov, [facility] [id number] [place] [address] [id number] Nov, Dental examination V72.2 [facility] [id number] [place] [address] [id number] Nov, Dental examination V72.2 [facility] [address], [place] [address]- 9916 October, Major depressive disorder, recurrent episode, moderate 296.32 and Generalized anxiety disorder 300.02 [facility] [address] [facility] [id number] [address]- 2546 October, [facility] [id number] [place] [address] 52576- 0736 October, [facility] [address] [facility] [id number] [address]- 2546 October, [facility] [id number] [place] [address] 70714- 5066 Sep, [facility] [address], [place] [address]- 3536 Sep, [facility] [id number] [place] [address] 66461- 3676 Aug, [facility] [address], [place] [address]- 6176 Aug, [facility] [address], [place] [address]- 6266 Aug, [facility] [address], [place] [address]- 3886 Aug, [facility] [address], [place] [address]- 2546 Aug, [facility] [id number], [place] [address]- 2546 Aug, [facility] [address] [address]- 2546 Aug, [facility] [id number], [place] [address]- 2546 16 Jul, 2014 [facility] [address] [address]- 3694 Jul, 2014 [facility] [place] [facility] [address] [id number] [place] [address]- 4166 Jul, 2014 [facility] [place] [facility] [address] [id number] [place] [address] Jul, 2014 [facility] [place] [facility] [address] [id number] [place] [address] Jul, 2014 [facility] [place] [facility] [address] [id number] [place] [address] Jul, 2014 [facility] [place] [facility] [address] [id number] [place] [address] Jul, 2014 [facility] [place] [facility] [address] [id number] [place] [address] Jul, 2014 [facility] [place] [facility] [address] [id number] [place] [address] Jul, [facility] [place] [facility] [address] [id number] [place] [address] Jun, [facility] [place] [facility] [address] [id number] [place] [address] Jun, [facility] [place] [facility] [address] [facility] [id number] [place] [address] Jun, [facility] [place] [facility] [address] [id number] [place] [address] Jun, [facility] [place] [facility] [address] [id number], [place] [address] Jun, [facility] [place] [facility] [address] [id number] [place] [address] Jun, [facility] [place] [facility] [address] [facility] [id number] [place] [address] Jun, [facility] [place] [facility] [address] [id number] [place] [address] Jun, [facility] [place] [facility] [address] [id number] [place] [address] Jun, [facility] [place] [facility] [address] [id number] [place] [address] Jun, [facility] [place] [facility] [address] [id number] [place] [address] Jun, [facility] [place] [facility] [address] [id number] [place] [address] 4050 Jun, [facility] [place] [facility] [address] [id number] [place] [address] 4237 Jun, [facility] [place] [facility] [address] [id number] [place] [address] 3950 Jun, [facility] [place] [facility] [address] [id number] [place] [address] 0548 Jun, [facility] [place] [facility] [address] [id number] [place] [address]- 5943 Jun, [facility] [place] [facility] [address] [id number] [place] [address] 8133 Jun, [facility] [place] [facility] [address] [id number] [place] [address] 2403 Jun, [facility] [place] [facility] [address] [id number] [place] [address]- 1625 Jun, [facility] [place] [facility] [address] [id number] [place] [address] 8824 Jun, [facility] [place] [facility] [address] [id number] [place] [address] 5197 Jun, [facility] [place] [facility] [address] [id number] [place] [address]- 0059 Jun, [facility] [place] [facility] [address] [id number] [place] [address]- 2477 Jun, [facility] [place] [facility] [address] [id number] [place] [address]- 7413 Jun, [facility] [place] [facility] [address] [id number] [place] [address]- 5049 Jun, [facility] [place] [facility] [address] [id number] [place] [address] May, [facility] [place] [facility] [address] [id number] [place] [address]- 4646 May, [facility] [place] [facility] [address] [id number] [place] [address]- 5061 May, [facility] [place] [facility] [address] [id number] [place] [address]- 3451 May, [facility] [place] [facility] [address] [id number] [place] [address]- 4055 May, [facility] [place] [facility] [address] [id number] [place] [address]- 2770 May, [facility] [place] [facility] [address] [id number] [place] [address]- 8922 May, [facility] [place] [facility] [address] [id number] [place] [address]- 4325 May, [facility] [place] [facility] [address] [id number] [place] [address]- 9917 May, [facility] [place] [facility] [address] [id number] [place] [address]- 7255 May, [facility] [place] [facility] [address] [id number] [place] [address]- 5909 May, [facility] [place] [facility] [address] [id number] [place] [address]- 5913 May, [facility] [place] [facility] [address] [id number] [place] [address]- 4200 May, [facility] [place] [facility] [address] [id number] [place] [address]- 0094 May, [facility] [place] [facility] [address] [id number] [place] [address]- 6462 08 May, 2014 [facility] [place] [facility] [address] [id number] [place] [address]- 8891 May, [facility] [place] [facility] [address] [id number] [place] [address]- 5265 May, [facility] [place] [facility] [address] [id number] [place] [address]- 5524 May, [facility] [place] [facility] [address] [id number] [place] [address]- 0929 Apr, [facility] [place] [facility] [address] [id number] [place] [address]- 0343 Apr, [facility] [place] [facility] [address] [id number] [place] [address]- 4260 Apr, [facility] [place] [facility] [address] [id number] [place] [address]- 3901 Apr, [facility] [place] [facility] [address] [id number] [place] [address]- 7629 Apr, [facility] [place] [facility] [address] [id number] [place] [address]- 0573 Apr, [facility] [place] [facility] [address] [id number] [place] [address]- 2883 Apr, [facility] [place] [facility] [address] [id number] [place] [address]- 6194 Apr, [facility] [place] [facility] [address] [id number] [place] [address]- 1709 Mar, [facility] [place] [facility] [address] [id number] [place] [address]- 2603 Mar, [facility] [place] [facility] [address] [id number] [place] [address]- 4726 Feb, [facility] [place] [facility] [address] [id number] [place] [address]- 5139 Feb, [facility] [place] [facility] [address] [id number] [place] [address]- 1996 Feb, 2013 [facility] [place] [facility] [address] [id number] [place] [address]- 9105 Feb, [facility] [place] [facility] [address] [id number] [place] [address]- 1419 Feb, 2013 [facility] [place] [facility] [address] [id number] [place] [address]- 6870 Feb, 2013 [facility] [place] [facility] [address] [id number] [place] [address]- 2795 Feb, [facility] [place] [facility] [address] [id number] [place] [address]- 8280 Feb, [facility] [place] [facility] [address] [id number] [place] [address]- 0690 Feb, [facility] [place] [facility] [address] [id number] [place] [address]- 6848 Feb, [facility] [place] [facility] [address] [id number] [place] [address]- 8288 Jan, [facility] [place] [facility] [address] [id number] [place] [address]- 9977 Jan, [facility] [place] [facility] [address] [id number] [place] [address]- 9640 Jan, [facility] [place] [facility] [address] [id number] [place] [address]- 5549 Jan, [facility] [place] [facility] [address] [id number] [place] [address]- 5887 Jan, [facility] [place] [facility] [address] [id number] [place] [address]- 3386 Jan, [facility] [place] [facility] [address] [id number] [place] [address]- 9874 Jan, [facility] [place] [facility] [address] [id number] [place] [address]- 9763 Jan, [facility] [place] [facility] [address] [id number] [place] [address]- 1878 Jan, [facility] [place] [facility] [address] [id number] [place] [address]- 4946 Jan, [facility] [place] [facility] [address] [id number] [place] [address]- 9753 Jan, [facility] [place] [facility] [address] [id number] [place] [address]- 2115 Jan, [facility] [place] [facility] [address] [id number] [place] [address]- 0184 Jan, [facility] [place] [facility] [address] [id number] [place] [address]- 8873 Dec, [facility] [place] [facility] [address] [id number] [place] [address]- 6245 Dec, [facility] [place] [facility] [address] [id number] [place] [address]- 7814 Dec, [facility] [place] [facility] [address] [id number] [place] [address]- 2061 Dec, [facility] [place] [facility] [address] [id number] [place] [address]- 4722 Dec, [facility] [place] [facility] [address] [id number] [place] [address]- 1543 Dec, [facility] [place] [facility] [address] [id number] [place] [address]- 1953 Dec, [facility] [place] [facility] [address] [id number] [place] [address]- 4242 Dec, [facility] [place] [facility] [address] [id number] [place] [address]- 4786 Dec, [facility] [place] [facility] [address] [id number] [place] [address]- 3611 Dec, [facility] [place] [facility] [address] [id number] [place] [address]- 4212 Dec, [facility] [place] [facility] [address] [id number] [place] [address]- 2434 Dec, [facility] [place] [facility] [address] [id number] [place] [address]- 2496 Dec, [facility] [place] [facility] [address] [id number] [place] [address]- 9375 Dec, [facility] [place] [facility] [address] [id number] [place] [address]- 8899 Nov, [facility] [place] [facility] [address] [id number] [place] [address]- 5426 Nov, [facility] [place] [facility] [address] [id number] [place] [address]- 0869 Nov, [facility] [place] [facility] [address] [id number] [place] [address]- 6396 Nov, [facility] [place] [facility] [address] [id number] [place] [address]- 2243 Nov, [facility] [place] [facility] [address] [id number] [place] [address]- 1566 Nov, [facility] [place] [facility] [address] [id number] [place] [address]- 3296 Nov, [facility] [place] [facility] [address] [id number] [place] [address]- 6397 Nov, [facility] [place] [facility] [address] [id number] [place] [address]- 3901 October, [facility] [place] [facility] [address] [id number] [place] [address]- 9555 October, [facility] [place] [facility] [address] [id number] [place] [address]- 5494 October, [facility] [place] [facility] [address] [id number] [place] [address]- 6557 October, [facility] [address] [id number] [place] [address]- 2919 October, [facility] [place] [facility] [address] [id number] [place] [address]- 7817 October, [facility] [place] [facility] [address] [id number] [place] [address]- 3908 October, [facility] [place] [facility] [address] [id number] [place] [address]- 7688 October, [facility] [place] [facility] [address] [id number] [place] [address]- 8955 October, [facility] [place] [facility] [address] [id number] [place] [address]- 5495 October, [facility] [place] [facility] [address] [id number] [place] [address]- 8992 October, [facility] [place] [facility] [address] [id number] [place] [address]- 0297 October, [facility] [place] [facility] [address] [id number] [place] [address]- 8196 October, [facility] [place] [facility] [address] [id number] [place] [address]- 5490 October, [facility] [place] [facility] [address] [id number] [place] [address]- 1463 October, [facility] [place] [facility] [address] [id number] [place] [address]- 0464 October, [facility] [place] [facility] [address] [id number] [place] [address]- 9835 Sep, [facility] [place] [facility] [address] [id number] [place] [address]- 9115 Sep, [facility] [place] [facility] [address] [id number] [place] [address]- 3180 Sep, [facility] [place] [facility] [address] [id number] [place] [address]- 3980 Sep, [facility] [place] [facility] [address] [id number] [place] [address]- 2230 Sep, [facility] [place] [facility] [address] [id number] [place] [address]- 6752 Sep, [facility] [place] [facility] [address] [id number] [place] [address]- 0375 Sep, [facility] [place] [facility] [address] [id number] [place] [address]- 8518 Sep, [facility] [place] [facility] [address] [id number] [place] [address]- 1709 Sep, [facility] [place] [facility] [address] [id number] [place] [address]- 2872 Sep, [facility] [place] [facility] [address] [id number] [place] [address]- 6710 Sep, [facility] [place] [facility] [address] [id number] [place] [address]- 9524 Sep, [facility] [place] [facility] [address] [id number] [place] [address]- 5912 Sep, [facility] [place] [facility] [address] [id number] [place] [address]- 9144 Sep, [facility] [place] [facility] [address] [id number] [place] [address]- 1585 Sep, [facility] [place] [facility] [address] [id number] [place] [address]- 5068 Sep, [facility] [place] [facility] [address] [id number] [place] [address]- 8014 Sep, [facility] [place] [facility] [address] [id number] [place] [address]- 2986 Sep, [facility] [place] [facility] [address] [id number] [place] [address]- 0551 Sep, [facility] [place] [facility] [address] [id number] [place] [address]- 5821 Aug, [facility] [place] [facility] [address] [id number] [place] [address]- 9418 Aug, [facility] [place] [facility] [address] [id number] [place] [address]- 8514 Aug, [facility] [place] [facility] [address] [id number] [place] [address]- 2207 Aug, [facility] [place] [facility] [address] [id number] [place] [address]- 6037 Jul, [facility] [place] [facility] [address] [id number] [place] [address]- 3974 Jul, [facility] [place] [facility] [address] [id number] [place] [address]- 5412 Jul, [facility] [place] [facility] [address] [id number] [place] [address]- 4547 Jul, [facility] [place] [facility] [address] [id number] [place] [address]- 9584 Jul, [facility] [place] [facility] [address] [id number] [place] [address]- 4882 Jul, [facility] [place] [facility] [address] [id number] [place] [address]- 8825 Jul, [facility] [place] [facility] [address] [id number] [place] [address]- 5890 Jul, [facility] [place] [facility] [address] [id number] [place] [address]- 0372 Jul, [facility] [place] [facility] [address] [id number] [place] [address]- 0422 Jul, [facility] [place] [facility] [address] [id number] [place] [address]- 7254 Jul, [facility] [place] [facility] [address] [id number] [place] [address]- 6941 Jul, [facility] [address] [id number] [place] [address]- 0867 Jun, [facility] [place] [facility] [address] [id number] [place] [address]- 6101 Jun, [facility] [address] [id number] [place] [address]- 1427 Jun, [facility] [address] [id number] [place] [address]- 4903 Jun, [facility] [address] [id number] [place] [address]- 0770 Jun, [facility] [address] [id number] [place] [address]- 0381 Jun, [facility] [address] [id number] [place] [address]- 0853 May, [facility] [address] [id number] [place] [address]- 2030 May, [facility] [address] [id number] [place] [address]- 6276 Apr, [facility] [address] [id number] [place] [address]- 1837 Apr, [facility] [place] [facility] [address] [id number] [place] [address]- 6903 Apr, [facility] [address] [id number] [place] [address]- 4594 Apr, [facility] [place] [facility] [address] [id number] [place] [address]- 8471 Apr, [facility] [place] [facility] [address] [id number] [place] [address]- 4003 Apr, [facility] [place] [facility] [address] [id number] [place] [address]- 1883 17 Apr, 2013 [facility] [place] [facility] [address] [id number] [place] [address]- 8595 15 Apr, 2013 [facility] [place] [facility] [address] [id number] [place] [address]- 5547 15 Apr, 2013 [facility] [place] [facility] [address] [id number] [place] [address]- 4238 15 Apr, 2013 [facility] [place] [facility] [address] [id number] [place] [address]- 4862 15 Apr, 2013 [facility] [place] [facility] [address] [id number] [place] [address]- 1495 Apr, [facility] [place] [facility] [address] [id number] [place] [address]- 7000 Apr, [facility] [place] [facility] [address] [id number] [place] [address]- 8864 31 Mar, 2013 [facility] [place] [facility] [address] [id number] [place] [address]- 6203 31 Mar, 2013 [facility] [place] [facility] [address] [id number] [place] [address]- 5068 25 Mar, 2013 [facility] [place] [facility] [address] [id number], [place] [address]- 0223 25 Mar, 2013 [facility] [place] [facility] [address] [id number], [place] [address]- 0778 17 Mar, 2013 [facility] [place] [facility] [address] [id number], [place] [address]- 2063 17 Mar, 2013 [facility] [place] [facility] [address] [id number] [place] [address]- 1166 14 Mar, 2013 [facility] [place] [facility] [address] [id number], [place] [address]- 3269 14 Mar, 2013 [facility] [place] [facility] [address] [id number], [place] [address]- 6785 11 Mar, 2013 [facility] [place] [facility] [address] [id number] [place] [address]- 4449 11 Mar, 2013 [facility] [address] [id number] [place] [address]- 1538 02 Mar, 2013 [facility] [place] [facility] [address] [id number] [place] [address]- 8204 30 Feb, 2013 [facility] [place] [facility] [address] [id number] [place] [address]- 8661 28 Feb, 2013 [facility] [place] [facility] [address] [id number] [place] [address]- 6267 27 Feb, 2013 [facility] [place] [facility] [address] [id number] [place] [address]- 0208 27 Feb, 2013 [facility] [place] [facility] [address] [id number] [place] [address]- 9893 20 Feb, 2013 [facility] [address] [id number] [place] [address]- 6603 10 Feb, 2013 [facility] [place] [facility] [address] [id number] [place] [address]- 3749 Jan, [facility] [place] [facility] [address] [id number] [place] [address]- 5993 Jan, [facility] [place] [facility] [address] [id number] [place] [address]- 9227 Dec, [facility] [place] [facility] [address] [id number] [place] [address]- 9187 Dec, [facility] [place] [facility] [address] [id number] [place] [address]- 9225 15 Dec, 2012 [facility] [place] [facility] [address] [id number] [place] [address]- 9862 Dec, [facility] [place] [facility] [address] [id number] [place] [address]- 9869 Nov, [facility] [place] [facility] [address] [id number] [place] [address]- 3179 14 Nov, 2012 [facility] [place] [facility] [address] [id number] [place] [address]- 0113 Nov, [facility] [address] [id number] [place] [address]- 5400 October, [facility] [address] [id number] [place] [address]- 3586 October, [facility] [address] [id number] [place] [address]- 1795 October, [facility] [address] [id number] [place] [address]- 3802 October, [facility] [address] [id number] [place] [address]- 1112 October, [facility] [address] [id number] [place] [address]- 0387 Sep, [facility] [address] [id number] [place] [address] Sep, [facility] [address] [id number] [place] [address] Aug, [facility] [address] [id number] [place] [address] Aug, [facility] [address] [id number] [place] [address] Aug, [facility] [address] [id number] [place] [address] Aug, [facility] [address] [id number] [place] [address] Aug, [facility] [place] [facility] [address] [id number] [place] [address] Jul, [facility] [place] [facility] [address] [id number] [place] [address] Jul, [facility] [place] [facility] [address] [id number] [place] [address] 06 Jul, 2012 [facility] [address] [id number] [place] [address] Jul, [facility] [address] [id number] [place] [address] Jun, [facility] [address] [id number] [place] [address] Jun, [facility] [address] [id number] [place] [address] Jun, [facility] [address] [id number] [place] [address] Jun, [facility] [address] [id number] [place] [address] Jun, [facility] [address] [id number] [place] [address] Jun, [facility] [address] [id number] [place] [address] Jun, [facility] [address] [id number] [place] [address] Jun, [facility] [address] [id number] [place] [address] Jun, [facility] [address] [id number] [place] [address]266 Jun, [facility] [address] [id number] [place] [address] Jun, [facility] [address] [id number] [place] [address] May, [facility] [place] [facility] [address] [id number] [place] [address] May, [facility] [address] [id number] [place] [address] Apr, [facility] [place] [facility] [address] [id number] [place] [address] Apr, [facility] [place] [facility] [address] [id number] [place] [address] Mar, 2011 [facility] [place] [facility] [address] [id number] [place] [address] Mar, 2011 [facility] [place] [facility] [address] [id number] [place] [address] Mar, [facility] [place] [facility] [address] [id number] [place] [address] Mar, [facility] [place] [facility] [address] [id number] [place] [address] Mar, [facility] [place] [facility] [address] [id number] [place] [address] Mar, [facility] [place] [facility] [address] [id number] [place] [address] Mar, [facility] [place] [facility] [address] [id number] [place] [address] Mar, [facility] [place] [facility] [address] [id number] [place] [address] Mar, [facility] [place] [facility] [address] [id number] [place] [address] Feb, [facility] [place] [facility] [address] [id number] [place] [address] Jan, [facility] [place] [facility] [address] [id number] [place] [address] Jan, [facility] [place] [facility] [address] [id number] [place] [address] Dec, [facility] [place] [facility] [address] [id number] [place] [address] Dec, [facility] [place] [facility] [address] [id number] [place] [address] Dec, [facility] [place] [facility] [address] [id number] [place] [address] Nov, [facility] [place] [facility] [address] [id number] [place] [address] Nov, [facility] [place] [facility] [address] [id number] [place] [address] Nov, [facility] [place] [facility] [address] [id number] [place] [address] Nov, [facility] [place] [facility] [address] [id number] [place] [address] October, [facility] [place] [facility] [address] [id number] [place] [address] October, [facility] [place] [facility] [address] [id number] [place] [address] Sep, [facility] [place] [facility] [address] [id number] [place] [address] 289[address] Sep, [facility] [place] [facility] [address] [id number] [place] [address] Aug, [facility] [place] [facility] [address] [id number] [place] [address] Jul, [facility] [place] [facility] [address] [id number] [place] [address] Jul, [facility] [place] [facility] [address] [id number] [place] [address] Jul, [facility] [place] [facility] [address] [id number] [place] [address]- [address]252 Jul, [facility] [place] [facility] [address] [id number] [place] [address] 6163 Jun, [facility] [place] [facility] [address] [id number] [place] [address] May, [facility] [place] [facility] [address] [id number] [place] [address] 15 May, 2011 [facility] [place] [facility] [address] [id number] [place] [address]- [address] 15 May, 2011 [facility] [place] [facility] [address] [id number] [place] [address]- [address] 13 May, 2011 [facility] [place] [facility] [address] [id number] [place] [address]- [address] 08 May, 2011 [facility] [place] [facility] [address] [id number] [place] [address]- [address] 14 Apr, 2011 [facility] [place] [facility] [address] [id number] [place] [address]- 47[address] 14 Apr, 2011 [facility] [place] [facility] [address] [id number] [place] [address]- [address]265 14 Apr, 2011 [facility] [place] [facility] [address] [id number] [place] [address]- [address] 07 Apr, 2011 [facility] [place] [facility] [address] [id number] [place] [address]- [address]42 02 Apr, 2011 [facility] [place] [facility] [address] [id number] [place] [address]- [address]249 26 Mar, 2011 [facility] [place] [facility] [address] [id number] [place] [address]- 2899 25 Mar, 2011 [facility] [place] [facility] [address] [id number] [place] [address]- 1826 14 Mar, 2011 [facility] [place] [facility] [address] [id number] [place] [address]- [address] 14 Mar, 2011 [facility] [facility] [facility] [address] [id number] [place] [address] 13 Mar, 2011 [facility] [place] [facility] [address] [id number] [place] [address] 11 Mar, 2011 [facility] [place] [facility] [address] [id number] [place] [address] Mar, [facility] [address] [id number] [address] Mar, [facility] [id number] [address] Feb, [facility] [id number], [place] [address] May, [facility] [id number] [address] May, [facility] [id number] [address] May, [facility] [id number] [address] Apr, [facility] [id number] [address] Mar, IMMUNIZATIONS No Known Immunizations SOCIAL HISTORY [...]
[2018-08-19] MEDS ORDERED: ONDANSETRON 4 MG/2 ML (SDV) Z0FRAN IVP ONE (09:30)
[2018-08-19] MEDS ORDERED: NS 1000 ML IV BAG IV ONE (09:30)
[2018-08-19] MEDS ORDERED: fentaNYL INJECTION 100 MCG/2 ML AMP IVP ONE ×2 (09:30→10:45)
--- OUTSIDE RECORDS SUMMARY | 2018-08-19 09:30 | XMS REPORT ---
Author Author NELLY Stuart Organization [facility] Address [address] [place] [address] Care Team Providers Care Supervisor Line Department Name Role Phone NELLY Stuart Unavailable PROBLEMS Type Condition ICD9-CM Code HCG07-SH Code Onset Dates Condition Status SNOMED Code Problem Mixed hyperlipidemia E78.2 Active 519400563 Problem Vitamin D deficiency E55.9 Active 47938630 Problem Essential hypertension I10 Active 65992669 Problem Mild intermittent asthma without complication J45.20 Active 805396692 Problem Generalized anxiety disorder F41.1 Active 19453986 Problem Gastroesophageal reflux disease, esophagitis presence not specified K21.9 Active 009939942 Problem Bipolar disorder, current episode mixed, moderate F31.62 Active 356425103 Problem Bipolar disorder F31.9 Active 36673380 Problem Panic disorder F41.0 Active 292016013 Problem Low back pain with sciatica, sciatica laterality unspecified, unspecified back pain laterality, unspecified chronicity M54.40 Active 772894653 Problem Acute right-sided low back pain with right-sided sciatica M54.41 Active 62918610 Problem Excessive thirst R63.1 Active 84339783 Problem Concussion without loss of consciousness, initial encounter S06.0X0A Active 57484713 Problem Primary insomnia F51.01 Active 499231093 Problem Anxiety F41.9 Active 03648776 Problem Hematuria R31.9 Active 68269249 Problem Hot flashes R23.2 Active 571405180 Problem Multiple fractures T07.XXXA Active 629045489 Problem Nausea R11.0 Active 888225410 Problem Hospital discharge follow-up Z09 Active 128428126 Problem Breast tenderness N64.4 Active 15653747 Problem Depression F32.9 Active 47235813 Problem Hidradenitis suppurativa L73.2 Active 40262961 Problem History of IBS Z87.19 Active 07142011802821 Problem Localized edema R60.0 Active 755002012 Problem Posttraumatic stress disorder F43.10 Active 89977581 Problem Genital herpes simplex, unspecified site A60.00 Active 04676610 Problem Tobacco use Z72.0 Active 727656008 ALLERGIES Substance Reaction Event Type Date Status [...] Sep, Active ENCOUNTERS Encounter Location Date Diagnosis [facility] [id number] [place] [address] 28525- 2189 Jan, [place] [address] 40477- 8316 Dec, Diaphoresis R61 and Excessive thirst R63.1 [place] [address] 18408- 2475 Dec, Panic disorder F41.0 ; Bipolar disorder, current episode mixed, moderate F31.62 and Generalized anxiety disorder F41.1 [facility] [id number] [place] [address] 62903- 7279 Dec, Panic disorder F41.0 [facility] [id number] [place] [address] 09036- 4486 Nov, Panic disorder F41.0 [facility] [id number] [place] [address] 49578- 1827 Nov, Panic disorder F41.0 ; Generalized anxiety disorder F41.1 and Bipolar disorder, current episode mixed, moderate F31.62 [facility] [facility] [id number] [place] [address] 14146- 8104 Nov, Panic disorder F41.0 [facility] [facility] [id number] [place] [address] 90858- 5540 Nov, Panic disorder F41.0 [facility] [facility] [address] [place] [address] 9336 October, Panic disorder F41.0 [facility] [address] 15139- 8969 October, Panic disorder F41.0 ; Generalized anxiety disorder F41.1 and Bipolar disorder, current episode mixed, moderate F31.62 [facility] [address] 33014- 1846 October, Panic disorder F41.0 [place] [address] 88468- 6679 Sep, Hospital discharge follow-up Z09 ; Concussion without loss of consciousness, initial encounter S06.0X0A and Nausea R11.0 [place] [address] 77650- 3795 Sep, [place] [address] 65365- 2437 Sep, Panic disorder F41.0 [place] [address] 59210- 4835 Sep, [address] 59[address]- 2253 Sep, Well woman exam with routine gynecological exam Z01.419 ; Multiple fractures T07.XXXA ; Hot flashes R23.2 ; Essential hypertension I10 ; Mixed hyperlipidemia E78.2 ; Genital herpes simplex, unspecified site A60.00 ; Alkaline phosphatase elevation R74.8 ; Dysuria R30.0 ; Vitamin D deficiency E55.9 ; Tobacco use Z72.0 ; High risk sexual behavior Z72.51 and Encounter for immunization Z23 [address] [address]- 7518 Aug, Panic disorder F41.0 ; Generalized anxiety disorder F41.1 and Bipolar disorder, current episode mixed, moderate F31.62 [place] [address] 38869- 4578 Aug, [facility] [address] [address] 84[address] Jul, Panic disorder F41.0 ; Generalized anxiety disorder F41.1 and Bipolar disorder, current episode mixed, moderate F31.62 [facility] [address] [address] 4254 Jul, [facility] [id number] [place] [address] 98127- 7200 Jul, [facility] [address] [place] [address] 49507- 4042 Jul, Effusion, right knee M25.461 ; Acute pain of right knee M25.561 and Acute pain of left knee M25.562 [facility] [address] [address] 7973 Jun, Bipolar disorder, current episode mixed, moderate F31.62 ; Generalized anxiety disorder F41.1 and Panic disorder F41.0 [facility] [address] [address] 2763 May, Bipolar disorder, current episode mixed, moderate F31.62 ; Generalized anxiety disorder F41.1 and Panic disorder F41.0 [facility] [address] [address] 2613 May, Bipolar disorder, current episode mixed, moderate F31.62 [facility] [address] [address]- 6461 May, Bipolar disorder, current episode mixed, moderate F31.62 [facility] [address] [address]- 3705 Apr, Bipolar disorder, current episode mixed, moderate F31.62 ; Generalized anxiety disorder F41.1 and Panic disorder F41.0 [facility] [address] [address] 7823 Mar, [facility] [id number] [place] [address] 46790- 9247 10 Mar, 2017 Bipolar disorder, current episode mixed, moderate F31.62 ; Generalized anxiety disorder F41.1 and Panic disorder F41.0 [facility] [id number] [place] [address] 10460- 4651 27 Feb, 2017 [facility] [address] 65890- 8433 22 Feb, 2017 Posttraumatic stress disorder F43.10 [facility] [id number] [place] [address] 45903- 9202 20 Feb, 2017 Gastroesophageal reflux disease, esophagitis presence not specified K21.9 [facility] [address] 37562- 5277 13 Feb, 2017 [place] [address] 81194- 9308 06 Feb, 2017 Knee pain, right anterior M25.561 [facility] [id number] [place] [address] 60493- 3351 05 Feb, 2017 HSV (herpes simplex virus) infection B00.9 [facility] [id number] [place] [address] 58237- 6196 05 Feb, 2017 [facility] [id number] [place] [address] 41653- 5252 Jan, [place] [id number] [place] [address] 58074- 5647 Jan, Posttraumatic stress disorder F43.10 [facility] [id number] [place] [address] 34967- 2528 Jan, Foot pain, left M79.672 [facility] [id number] [place] [address] 06549- 0310 Jan, [facility] [id number] [place] [address] 08423- 9220 Jan, Lumbar radiculopathy, acute M54.16 ; Muscle spasm of back M62.830 and Right hip pain M25.551 [facility] [id number] [place] [address] 95731- 7341 Jan, Lumbar radiculopathy, acute M54.16 [facility] [id number] [place] [address] 52633- 6721 Jan, [facility] [id number] [place] [address] 73659- 4992 Jan, [facility] [id number] [place] [address] 28362- 9052 Dec, Lumbar radiculopathy, acute M54.16 ; Acute renal insufficiency N28.9 and Muscle spasm of back M62.830 [facility] [id number] [place] [address] 36922- 7801 Dec, [facility] [id number] [place] [address] 16042- 0177 Dec, [facility] [id number] [place] [address] 91082- 2765 Dec, [facility] [id number] [place] [address] 39386 -0608 Dec, Low back pain with sciatica, sciatica laterality unspecified, unspecified back pain laterality, unspecified chronicity M54.40 and Acute right-sided low back pain with right-sided sciatica M54.41 [facility] [address] [address]- 7205 Dec, Posttraumatic stress disorder F43.10 [facility] [id number] [place] [address] 78248- 3930 Dec, [facility] [id number] [place] [address] 40193- 8794 Dec, Pain in right thigh M79.651 and Acute right-sided low back pain without sciatica M54.5 [facility] [address] [address]- 5676 10 Dec, 2016 Posttraumatic stress disorder F43.10 and Major depressive disorder, recurrent episode with anxious distress F33.9 [facility] [address] [address] 08 Dec, 2016 [facility] [address] [address]- 1171 Nov, [facility] [id number] [place] [address] 83905- 6029 October, [facility] [id number] [place] [address] 01175- 1488 October, [facility] [id number] [place] [address] 65454- 0182 October, Knee pain, right anterior M25.561 [facility] [id number] [place] [address] 55719- 6897 October, Knee pain, right anterior M25.561 [facility] [address] [address]- 1486 October, [facility] [id number] [place] [address] 44737- 9466 October, [facility] [address] [address]- 8146 October, [facility] [address] [address]6203 Sep, [facility] [address] [address]- 0862 Sep, [facility] [id number] [address]- 6158 Sep, Essential hypertension I10 [facility] [address] [address]- 2241 Sep, Essential hypertension I10 [facility] [id number] [place] [address] 92670- 5788 Sep, [facility] [id number] [place] [address] 97619- 5135 Sep, Posttraumatic stress disorder F43.10 and Major depressive disorder, recurrent episode with anxious distress F33.9 [facility] [facility] [id number] [place] [address] 00166- 6497 Sep, Multiple fractures T14.8 ; Alkaline phosphatase elevation R74.8 and Vitamin D deficiency E55.9 [facility] [facility] [id number] [place] [address] 90181- 2794 Sep, [facility] [facility] [address] 96529- 2126 Sep, Elevated serum creatinine R79.89 ; Fracture of foot, left, closed, initial encounter S92.902A and Alkaline phosphatase elevation R74.8 [facility] [facility] [id number] [place] [address] 75081- 0812 Sep, Elevated serum creatinine R79.89 and Essential hypertension I10 [facility] [facility] [id number] [place] [address] 15401- 2295 Sep, [place] [facility] [id number] [place] [address] 92344- 4248 Aug, Gastroesophageal reflux disease, esophagitis presence not specified K21.9 [facility] [id number] [place] [address] 80822- 0344 Aug, Essential hypertension I10 ; Fracture of foot, left, closed , initial encounter S92.902A and Alkaline phosphatase elevation R74.8 [facility] [facility] [id number] [place] [address] 71731- 4392 Jul, Genital herpes simplex, unspecified site A60.00 [facility] [facility] [id number] [place] [address] 74423- 9799 Jul, Essential hypertension I10 [facility] [facility] [address] [place] [address]- 5408 Jun, Cough R05 and Wheezing R06.2 [facility] [address] 98235- 3336 Jun, Essential hypertension I10 [facility] [id number] [place] [address] 01167- 6837 May, Essential hypertension I10 [facility] [address] 46667- 8405 May, Posttraumatic stress disorder F43.10 and Major depressive disorder, recurrent episode with anxious distress F33.9 [place] [facility] [address] 90867- 9294 Apr, [facility] [address] 58763- 9639 Apr, [place] [address] 20868- 8382 Apr, [facility] [id number] [place] [address] 01911- 8303 Mar, [facility] [address] 31149- 7890 Feb, [facility] [id number] [place] [address] 54263- 0810 Jan, [facility] [id number] [place] [address] 79975- 7228 Jan, Essential hypertension I10 ; Mixed hyperlipidemia E78.2 ; Gastroesophageal reflux disease, esophagitis presence not specified K21.9 ; Mild intermittent asthma without complication J45.20 ; Hidradenitis suppurativa L73.2 ; Migraine without status migrainosus, not intractable, unspecified migraine type G43.909 ; Genital herpes simplex, unspecified site A60.00 and Closed traumatic minimally displaced fracture of metatarsal bone of left foot S92.302A [facility] [id number] [place] [address] 11217 -2108 Jan, Localized edema R60.0 [facility] [id number] [place] [address] 90934- 9094 Dec, [facility] [id number] [place] [address] 92374- 7425 Dec, [facility] [id number] [place] [address] 39943- 1543 Dec, [facility] [id number] [place] [address] 52418 -6471 Dec, Cough R05 ; Tobacco dependence F17.200 and Costochondritis , acute M94.0 [facility] [id number] [place] [address] 72843- 7212 Dec, Major depression, recurrent F33.9 ; Bipolar disorder, unspecified F31.9 and Posttraumatic stress disorder F43.10 [facility] [id number] [place] [address] 46879- 3173 Nov, [facility] [id number] [place] [address] 15496- 2339 Nov, [facility] [id number] [place] [address] 37560- 0900 October, [facility] [address] [place] [address] 75584 -9726 October, Acute upper respiratory infection, unspecified J06.9 [facility] [address] [place] [address] 19674- 9471 October, [facility] [address] [place] [address] 43487- 3978 Sep, Bipolar affective disorder, remission status unspecified F31.9 and Post-traumatic stress disorder F43.10 [facility] [address] [place] [address] 31800- 0167 Sep, Bipolar disorder, unspecified F31.9 ; Posttraumatic stress disorder F43.10 and Major depression, recurrent F33.9 [facility] [address] [place] [address] 19595- 2168 16 Aug, 2015 Edema R60.9 ; Fatigue R53.83 and Polydipsia R63.1 [place] [id number] [place] [address] 08932- 7400 07 Aug, 2015 [facility] [id number] [place] [address] 59784- 4243 Aug, [facility] [id number] [place] [address] 32005- 0739 Jul, [place] [address] 26044- 5451 Jul, [place] [id number] [place] [address] 58956- 5189 Jun, [facility] [id number] [place] [address] 04242- 4589 Jun, [place] [id number] [place] [address] 35496- 8018 Jun, [place] [id number] [place] [address] 64864- 6717 Jun, [place] [id number] [place] [address] 27045- 1405 May, Mixed hyperlipidemia E78.2 [facility] [id number] [place] [address] 61387- 6122 May, Well woman exam Z01.419 ; History of herpes simplex infection Z86.19 ; Papanicolaou smear Z12.4 ; History of depression Z86.59 ; History of anxiety Z86.59 ; Lipoma of other specified sites D17.79 ; Hidradenitis suppurativa L73.2 ; Routine screening for STI (sexually transmitted infection) Z11.3 and Tobacco use Z72.0 [facility] [address] [place] [address] 82860- 3468 May, Hematuria R31.9 ; Essential hypertension I10 ; Pure hypercholesterolemia E78.0 and Hidradenitis L73.2 [facility] [id number] [place] [address] 25162- 6430 May, Upper respiratory symptom R09.89 and Allergic rhinitis J30.9 [facility] [id number] [place] [address] 55021- 8701 May, [facility] [address] 12665- 9823 May, [facility] [id number] [place] [address] 68420- 4210 May, Bipolar disorder, unspecified F31.9 ; Posttraumatic stress disorder F43.10 and Major depression, recurrent F33.9 [facility] [id number] [place] [address] 95967- 8302 May, [facility] [address] 92721- 5505 May, [facility] [id number] [place] [address] 83142- 6050 Apr, [facility] [id number] [place] [address] 21645- 3056 Apr, [facility] [id number] [place] [address] 78437- 2060 Mar, [facility] [address] 05985- 0230 Mar, [facility] [id number] [place] [address] 23134- 2843 Mar, [facility] [id number] [place] [address] 62319- 0042 18 Feb, 2015 Major depressive disorder, recurrent episode, moderate 296.32 and Post traumatic stress disorder (PTSD) 309.81 [facility] [address] 41750- 3326 Feb, [facility] [address] [address]- 0907 Feb, [facility] [address] [address]- 5582 Jan, Cough 786.2 [facility] [address] [address]- 1997 Jan, Depression, major, recurrent, moderate 296.32 and Post traumatic stress disorder (PTSD) 309.81 [facility] [address] [address]- 9431 Jan, [facility] [id number] [place] [address] 21887- 0287 Dec, [facility] [id number] [place] [address] 59855- 3078 Dec, Generalized anxiety disorder 300.02 and Depression, major, recurrent, moderate 296.32 [facility] [address] [address]- 3080 Dec, [facility] [id number] [place] [address] 97196- 7501 Dec, High risk medication use V58.69 [facility] [address] [address]- 4650 Dec, High risk medication use V58.69 [facility] [address] [address]- 6414 Dec, [facility] [id number] [address]- 5389 Nov, Generalized anxiety disorder 300.02 and Major depressive disorder, recurrent episode, moderate 296.32 [facility] [address] [id number] Nov, Dental examination V72.2 [facility] [address] [id number] [id number] Nov, Dental examination V72.2 [facility] [address] [facility] [id number] [address]- 5926 Nov, [facility] [address] [id number] Nov, Dental examination V72.2 [facility] [address] [id number] Nov, Dental examination V72.2 [facility] [id number] [place] [address] 66959- 6766 October, Major depressive disorder, recurrent episode, moderate 296.32 and Generalized anxiety disorder 300.02 [facility] [id number] [place] [address]- [address] October, [facility] [id number] [place] [address]60- 6982 October, [facility] [id number] [place] [address]68- 8736 October, [facility] [id number] [address] Sep, [facility] [id number] [place] [address] Sep, [facility] [id number] [address] Aug, [facility] [id number] [address] Aug, [facility] [id number] [address] Aug, [facility] [id number] [address] Aug, [facility] [id number] [address] Aug, [facility] [id number] [address] Aug, [facility] [place] [facility] [address] [id number] [place] [address] Aug, [facility] [place] [facility] [address] [id number] [place] [address] Jul, 2014 [facility] [place] [facility] [address] [id number] [place] [address] Jul, 2014 [facility] [place] [facility] [address] [id number] [place] [address] Jul, 2014 [facility] [place] [facility] [address] [id number] [place] [address] Jul, 2014 [facility] [place] [facility] [address] [id number] [place] [address] Jul, 2014 [facility] [place] [facility] [address] [facility] [facility] [id number] [place] [address] Jul, 2014 [facility] [place] [facility] [address] [id number] [place] [address] Jul, [facility] [place] [facility] [address] [id number] [place] [address] 74[address] Jul, 2014 [facility] [place] [facility] [address] [facility] [id number] [place] [address] Jul, [facility] [place] [facility] [address] [id number] [place] [address] 1633 Jun, [facility] [place] [facility] [address] [id number] [place] [address]- 5390 Jun, [facility] [place] [facility] [address] [id number] [place] [address]- 3802 Jun, [facility] [place] [facility] [address] [facility] [id number] [place] [address]- 6281 Jun, [facility] [place] [facility] [address] [id number] [place] [address]- 8777 Jun, [facility] [place] [facility] [address] [id number] [place] [address]- 0933 Jun, [facility] [place] [facility] [address] [id number] [place] [address]- 9911 Jun, [facility] [place] [facility] [address] [id number] [place] [address]- 7458 Jun, [facility] [place] [facility] [address] [id number] [place] [address]- 9380 Jun, [facility] [place] [facility] [address] [id number] [place] [address]- 3790 Jun, [facility] [place] [facility] [address] [id number] [place] [address]- 1421 Jun, [facility] [place] [facility] [address] [id number] [place] [address]- 5021 Jun, [facility] [place] [facility] [address] [id number] [place] [address]- 1181 Jun, [facility] [place] [facility] [address] [id number] [place] [address]- 6226 Jun, [facility] [place] [facility] [address] [id number] [place] [address]- 7013 Jun, [facility] [place] [facility] [address] [id number] [place] [address]- 3098 Jun, [facility] [place] [facility] [address] [id number] [place] [address]- 8360 Jun, [facility] [place] [facility] [address] [id number] [place] [address]- 9517 Jun, [facility] [place] [facility] [address] [id number] [place] [address]- 3539 Jun, [facility] [place] [facility] [address] [id number] [place] [address]- 0416 Jun, [facility] [place] [facility] [address] [id number] [place] [address]- 0259 Jun, [facility] [place] [facility] [address] [id number] [place] [address]- 5886 Jun, [facility] [place] [facility] [address] [id number] [place] [address]- 2137 Jun, [facility] [place] [facility] [address] [id number] [place] [address]- 6880 Jun, [facility] [place] [facility] [address] [id number] [place] [address]- 5526 Jun, [facility] [place] [facility] [address] [id number] [place] [address]- 3973 May, [facility] [place] [facility] [address] [id number] [place] [address]- 5179 May, [facility] [place] [facility] [address] [id number] [place] [address]- 8034 May, [facility] [place] [facility] [address] [id number] [place] [address]- 1905 May, [facility] [place] [facility] [address] [id number] [place] [address]- 3837 May, [facility] [place] [facility] [address] [id number] [place] [address]- 3189 May, [facility] [place] [facility] [address] [id number] [place] [address]- 1923 May, [facility] [place] [facility] [address] [id number] [place] [address]- 9610 May, [facility] [place] [facility] [address] [id number] [place] [address]- 8441 May, [facility] [place] [facility] [address] [id number] [place] [address]- 6300 May, [facility] [place] [facility] [address] [id number] [place] [address]- 3805 May, [facility] [place] [facility] [address] [id number] [place] [address]- 7058 May, [facility] [place] [facility] [address] [id number] [place] [address]- 1129 May, [facility] [place] [facility] [address] [id number] [place] [address] May, [facility] [place] [facility] [address] [id number] [place] [address] May, [facility] [place] [facility] [address] [id number] [place] [address]- 9775 May, [facility] [place] [facility] [address] [id number] [place] [address] May, [facility] [place] [facility] [address] [id number] [place] [address]- 4661 May, [facility] [place] [facility] [address] [id number] [place] [address]- 5384 Apr, [facility] [place] [facility] [address] [id number] [place] [address]- 3149 Apr, [facility] [place] [facility] [address] [id number] [place] [address]- 9595 Apr, [facility] [place] [facility] [address] [id number] [place] [address]- 5669 Apr, [facility] [place] [facility] [address] [id number] [place] [address]- 5154 Apr, [facility] [place] [facility] [address] [id number] [place] [address]- 7805 Apr, [facility] [place] [facility] [address] [id number] [place] [address]- 2425 Apr, [facility] [place] [facility] [address] [id number] [place] [address]- 2975 Apr, [facility] [place] [facility] [address] [id number] [place] [address]- 7172 Mar, [facility] [place] [facility] [address] [id number] [place] [address]- 3415 Mar, [facility] [place] [facility] [address] [id number] [place] [address]- 0650 Feb, [facility] [place] [facility] [address] [id number] [place] [address]- 0553 Feb, [facility] [place] [facility] [address] [id number] [place] [address]- 5609 Feb, [facility] [place] [facility] [address] [id number] [place] [address]- 1529 Feb, [facility] [place] [facility] [address] [id number] [place] [address]- 3403 Feb, [facility] [place] [facility] [address] [id number] [place] [address]- 0273 Feb, [facility] [place] [facility] [address] [id number] [place] [address]- 7770 Feb, [facility] [place] [facility] [address] [id number] [place] [address]- 0996 Feb, [facility] [place] [facility] [address] [id number] [place] [address]- 0133 Feb, [facility] [place] [facility] [address] [id number] [place] [address]- 4155 Feb, [facility] [place] [facility] [address] [id number] [place] [address]- 9479 Jan, [facility] [place] [facility] [address] [id number] [place] [address]- 3166 Jan, [facility] [place] [facility] [address] [id number] [place] [address]- 6754 Jan, [facility] [place] [facility] [address] [id number] [place] [address]- 9269 Jan, [facility] [place] [facility] [address] [id number] [place] [address]- 1506 Jan, [facility] [place] [facility] [address] [id number] [place] [address]- 2105 Jan, [facility] [place] [facility] [address] [id number] [place] [address]- 9704 Jan, [facility] [place] [facility] [address] [id number] [place] [address]- 0678 Jan, [facility] [place] [facility] [address] [id number] [place] [address]- 6110 Jan, [facility] [place] [facility] [address] [id number] [place] [address]- 5667 Jan, [facility] [place] [facility] [address] [id number] [place] [address]- 3811 Jan, [facility] [place] [facility] [address] [id number] [place] [address]- 8692 Jan, [facility] [place] [facility] [address] [id number] [place] [address]- 5564 Jan, [facility] [place] [facility] [address] [id number] [place] [address]- 3844 Dec, [facility] [place] [facility] [address] [id number] [place] [address]- 1021 Dec, [facility] [place] [facility] [address] [id number] [place] [address]- 4223 Dec, [facility] [place] [facility] [address] [id number] [place] [address]- 9972 Dec, [facility] [place] [facility] [address] [id number] [place] [address]- 4465 Dec, [facility] [place] [facility] [address] [id number] [place] [address]- 1422 Dec, [facility] [place] [facility] [address] [id number] [place] [address]- 4227 Dec, [facility] [place] [facility] [address] [id number] [place] [address]- 4581 Dec, 2013 [facility] [place] [facility] [address] [id number] [place] [address]- 6153 Dec, [facility] [place] [facility] [address] [id number] [place] [address]- 7801 Dec, 2013 [facility] [place] [facility] [address] [id number] [place] [address]- 9762 Dec, 2013 [facility] [place] [facility] [address] [id number] [place] [address]- 7512 Dec, 2013 [facility] [place] [facility] [address] [id number] [place] [address]- 3567 Dec, [facility] [place] [facility] [address] [id number] [place] [address]- 7901 Dec, [facility] [place] [facility] [address] [id number] [place] [address]- 3120 Nov, [facility] [place] [facility] [address] [id number] [place] [address]- 2886 Nov, [facility] [place] [facility] [address] [id number] [place] [address]- 5604 Nov, [facility] [place] [facility] [address] [id number] [place] [address]- 3022 Nov, [facility] [place] [facility] [address] [id number] [place] [address]- 6816 Nov, [facility] [place] [facility] [address] [id number] [place] [address]- 0746 Nov, [facility] [place] [facility] [address] [id number] [place] [address]- 6877 Nov, [facility] [place] [facility] [address] [id number] [place] [address]- 4350 Nov, [facility] [place] [facility] [address] [id number] [place] [address]- 8278 October, [facility] [place] [facility] [address] [id number] [place] [address]- 8938 October, [facility] [place] [facility] [address] [id number] [place] [address]- 6077 October, [facility] [place] [facility] [address] [id number] [place] [address]- 8117 October, [facility] [place] [facility] [address] [id number] [place] [address]- 5989 October, [facility] [place] [facility] [address] [id number] [place] [address]- 4385 October, [facility] [place] [facility] [address] [id number] [place] [address]- 6777 October, [facility] [place] [facility] [address] [id number] [place] [address]- 3161 October, [facility] [place] [facility] [address] [id number] [place] [address]- 8664 October, [facility] [place] [facility] [address] [id number] [place] [address] October, [facility] [place] [facility] [address] [id number] [place] [address]- 5676 October, [facility] [place] [facility] [address] [id number] [place] [address]- 9908 October, [facility] [place] [facility] [address] [id number] [place] [address]- 2222 October, [facility] [place] [facility] [address] [id number] [place] [address]- 9328 October, [facility] [place] [facility] [address] [id number] [place] [address]- 7734 October, [facility] [place] [facility] [address] [id number] [place] [address]- 6131 October, [facility] [place] [facility] [address] [id number] [place] [address]- 9297 Sep, [facility] [place] [facility] [address] [id number] [place] [address]- 2510 Sep, [facility] [place] [facility] [address] [id number] [place] [address]- 1116 Sep, [facility] [place] [facility] [address] [id number] [place] [address]- 7922 Sep, [facility] [place] [facility] [address] [id number] [place] [address]- 5991 Sep, [facility] [place] [facility] [address] [id number] [place] [address]- 6177 Sep, [facility] [place] [facility] [address] [id number] [place] [address]- 0451 Sep, [facility] [place] [facility] [address] [id number] [place] [address]- 1875 Sep, [facility] [place] [facility] [address] [id number] [place] [address]- 6692 Sep, [facility] [place] [facility] [address] [id number] [place] [address]- 7831 Sep, [facility] [place] [facility] [address] [id number] [place] [address]- 0800 Sep, [facility] [place] [facility] [address] [id number] [place] [address]- 2618 Sep, [facility] [place] [facility] [address] [id number] [place] [address]- 6505 Sep, [facility] [place] [facility] [address] [id number] [place] [address]- 7572 Sep, [facility] [place] [facility] [address] [id number] [place] [address]- 3534 Sep, [facility] [place] [facility] [address] [id number] [place] [address]- 2721 Sep, [facility] [place] [facility] [address] [id number] [place] [address]- 4914 Sep, [facility] [place] [facility] [address] [id number] [place] [address]- 8352 Sep, [facility] [place] [facility] [address] [id number] [place] [address]- 3295 Sep, [facility] [place] [facility] [address] [id number] [place] [address]- 9365 Aug, [facility] [place] [facility] [address] [id number] [place] [address]- 9071 Aug, [facility] [place] [facility] [address] [id number] [place] [address]- 4159 Aug, [facility] [place] [facility] [address] [id number] [place] [address]- 2974 Aug, [facility] [place] [facility] [address] [id number] [place] [address]- 8539 Jul, [facility] [place] [facility] [address] [id number] [place] [address]- 9036 Jul, [facility] [place] [facility] [address] [id number] [place] [address]- 6284 Jul, [facility] [place] [facility] [address] [id number] [place] [address]- 7380 Jul, [facility] [place] [facility] [address] [id number] [place] [address]- 4287 Jul, [facility] [place] [facility] [address] [id number] [place] [address]- 0786 Jul, [facility] [place] [facility] [address] [id number] [place] [address]- 2648 Jul, [facility] [place] [facility] [address] [id number] [place] [address]- 7658 Jul, [facility] [place] [facility] [address] [id number] [place] [address]- 8979 Jul, [facility] [address] [id number] [place] [address]- 9806 Jul, [facility] [place] [facility] [address] [id number] [place] Jul, [facility] [address] [id number] [place] [address]- 6496 Jul, [facility] [place] [facility] [address] [id number] [place] [address]- 5494 Jun, [facility] [place] [facility] [address] [id number] [place] [address]369 Jun, [facility] [place] [facility] [address] [id number] [place] [address]- 1927 Jun, [facility] [place] [facility] [address] [id number] [place] [address]- 7332 Jun, [facility] [address] [id number] [place] [address]- 8221 Jun, [facility] [place] [facility] [address] [id number] [place] [address]- 5675 Jun, [facility] [address] [id number] [place] [address]- 0579 May, [facility] [place] [facility] [address] [id number] [place] [address]- 4170 May, [facility] [place] [facility] [address] [id number] [place] [address]- 8149 Apr, [facility] [place] [facility] [address] [id number] [place] [address]- 3489 Apr, [facility] [place] [facility] [address] [id number] [place] [address]- 1829 Apr, [facility] [place] [facility] [address] [id number] [id number] [address]462 Apr, [facility] [place] [facility] [address] [id number] [place] [address]- 4544 18 Apr, 2013 [facility] [place] [facility] [address] [id number] [place] [address]- 8492 18 Apr, 2013 [facility] [place] [facility] [address] [id number] [place] [address]- 3287 17 Apr, 2013 [facility] [place] [facility] [address] [id number] [place] [address]- 4401 15 Apr, 2013 [facility] [place] [facility] [address] [id number] [place] [address]- 0970 15 Apr, 2013 [facility] [place] [facility] [address] [id number] [place] [address]- 2675 15 Apr, 2013 [facility] [place] [facility] [address] [id number] [place] [address]- 5068 15 Apr, 2013 [facility] [place] [facility] [address] [id number] [address]- 8758 Apr, [facility] [place] [facility] [address] [id number] [place] [address]- 1945 Apr, [facility] [place] [facility] [address] [id number] [place] [address]- 3105 31 Mar, 2013 [facility] [place] [facility] [address] [id number] [place] [address]- 7955 31 Mar, 2013 [facility] [place] [facility] [address] [id number] [place] [address]- 6596 25 Mar, 2013 [facility] [place] [facility] [address] [id number] [place] [address]- 4731 Mar, [facility] [place] [facility] [address] [id number] [place] [address]- 9372 Mar, [facility] [place] [facility] [address] [id number] [place] [address]- 1286 17 Mar, 2013 [facility] [place] [facility] [address] [id number] [place] [address]- 0813 14 Mar, 2013 [facility] [address] [id number] [place] [address]- 0241 14 Mar, 2013 [facility] [place] [facility] [address] [id number] [place] [address]- 6929 11 Mar, 2013 [facility] [place] [facility] [address] [id number] [place] [address]- 5480 11 Mar, 2013 [facility] [place] [facility] [address] [id number] [place] [address]- 3808 02 Mar, 2013 [facility] [place] [facility] [address] [id number] [place] [address]- 6601 30 Feb, 2013 [facility] [place] [facility] [address] [id number] [place] [address]- 3955 28 Feb, 2012 [facility] [place] [facility] [address] [id number] [place] [address]- 1486 27 Feb, 2012 [facility] [place] [facility] [address] [id number] [place] [address]- 6762 27 Feb, 2012 [facility] [place] [facility] [address] [id number] [place] [address]- 8878 20 Feb, 2013 [facility] [place] [facility] [address] [id number] [place] [address]- 8395 10 Feb, 2013 [facility] [place] [facility] [address] [id number] [place] [address]- 3847 Jan, [facility] [place] [facility] [address] [id number] [place] [address]- 5647 Jan, [facility] [place] [facility] [address] [id number] [place] [address] Dec, [facility] [place] [facility] [address] [id number] [place] [address] Dec, [facility] [place] [facility] [address] [id number] [place] [address] 15 Dec, 2012 [facility] [place] [facility] [address] [id number] [place] [address] Dec, [facility] [address] [id number] [place] [address] Nov, [facility] [place] [facility] [address] [id number] [place] [address] Nov, [facility] [place] [facility] [address] [id number] [place] [address] Nov, [facility] [place] [facility] [address] [id number] [place] [address] October, [facility] [place] [facility] [address] [id number] [place] [address] October, [facility] [address] [id number] [place] [address] October, [facility] [address] [id number] [place] [address]65 October, [facility] [address] [id number] [place] [address] October, [facility] [place] [facility] [address] [id number] [place] [address] Sep, [facility] [place] [facility] [address] [id number] [place] [address] Sep, [facility] [place] [facility] [address] [id number] [place] [address] Aug, [facility] [place] [facility] [address] [id number] [place] [address] 15 Aug, 2012 [facility] [place] [facility] [address] [id number] [place] [address] Aug, [facility] [place] [facility] [address] [id number] [place] [address] 08 Aug, 2012 [facility] [place] [facility] [address] [id number] [place] [address] Aug, [facility] [address] [id number] [place] [address] Jul, [facility] [address] [id number] [place] [address]265 Jul, [facility] [place] [facility] [address] [id number] [place] [address]686 Jul, [facility] [place] [facility] [address] [id number] [place] [address]60 Jul, [facility] [address] [id number] [place] [address] Jun, [facility] [address] [id number] [place] [address]671 Jun, [facility] [address] [id number] [place] [address] Jun, [facility] [address] [id number] [place] [address] Jun, [facility] [address] [id number] [place] [address]196 Jun, [facility] [place] [facility] [address] [id number] [place] [address] Jun, [facility] [address] [id number] [address] Jun, [facility] [place] [facility] [address] [id number] [place] [address]29 Jun, [facility] [place] [facility] [address] [id number] [place] [address] 75[address] Jun, [facility] [place] [facility] [address] [id number] [place] [address] 78[address] Jun, [facility] [place] [facility] [address] [id number] [place] [address] Jun, [facility] [place] [facility] [address] [id number] [place] [address] May, [facility] [place] [facility] [address] [id number] [place] [address] May, [facility] [place] [facility] [address] [id number] [place] [address]12 Apr, [facility] [place] [facility] [address] [id number] [place] [address]- [address] Apr, [facility] [place] [facility] [address] [id number] [place] [address] Mar, [facility] [place] [facility] [address] [id number] [place] [address] Mar, [facility] [place] [facility] [address] [id number] [place] [address]- [address]385 Mar, [facility] [place] [facility] [address] [id number] [place] [address] 2846 Mar, [facility] [place] [facility] [address] [id number] [place] [address]- 79[address] Mar, [facility] [place] [facility] [address] [id number] [place] [address]- [address]369 Mar, [facility] [place] [facility] [address] [id number] [place] [address]- [address] Mar, [facility] [place] [facility] [address] [id number] [place] [address]- 1526 Mar, [facility] [place] [facility] [address] [id number] [place] [address] 3316 Mar, [facility] [place] [facility] [address] [id number] [place] [address]- 14[address] Feb, [facility] [place] [facility] [address] [id number] [place] [address]- [address]46 Jan, [facility] [place] [facility] [address] [id number] [place] [address] Jan, [facility] [place] [facility] [address] [id number] [place] [address]- [address]32 Dec, [facility] [place] [facility] [address] [id number] [place] [address]- 8813 Dec, [facility] [place] [facility] [address] [id number] [place] [address]- 7540 Dec, [facility] [place] [facility] [address] [id number] [place] [address]- 74[address] Nov, [facility] [place] [facility] [address] [id number] [place] [address]105 Nov, [facility] [place] [facility] [address] [id number] [place] [address]- 1652 Nov, [facility] [place] [facility] [address] [id number] [place] [address] 7978 Nov, [facility] [place] [facility] [address] [id number] [place] [address] 4518 October, [facility] [place] [facility] [address] [id number] [place] [address]- 4361 October, [facility] [place] [facility] [address] [id number] [place] [address]- 0419 Sep, [facility] [place] [facility] [address] [id number] [place] [address]- [address]43 Sep, [facility] [place] [facility] [address] [id number] [place] [address] 47[address] Aug, [facility] [place] [facility] [address] [id number] [place] [address]- 2006 Jul, [facility] [place] [facility] [address] [id number] [place] [address]- [address] Jul, [facility] [place] [facility] [address] [id number] [place] [address]- 2635 Jul, [facility] [place] [facility] [address] [id number] [place] [address]- 6558 Jul, [facility] [address] [id number] [place] [address]- 4728 Jun, [facility] [place] [facility] [address] [id number] [place] [address]- 136[address] 15 May, 2011 [facility] [place] [facility] [address] [id number] [place] [address]- 6419 15 May, 2011 [facility] [place] [facility] [address] [id number] [place] [address]- 0718 15 May, 2011 [facility] [place] [facility] [address] [id number] [place] [address]- [address] 13 May, 2011 [facility] [place] [facility] [address] [id number] [place] [address]- 69[address] 08 May, 2011 [facility] [place] [facility] [address] [id number] [place] [id number] 14 Apr, 2011 [facility] [place] [facility] [address] [id number] [place] [address] 14 Apr, 2011 [facility] [place] [facility] [address] [id number] [place] [address] 14 Apr, 2011 [facility] [place] [facility] [address] [facility] [id number] [place] [address] 07 Apr, 2011 [facility] [place] [facility] [address] [id number] [place] [address] 02 Apr, 2011 [facility] [place] [facility] [address] [id number] [place] [address] 26 Mar, 2011 [facility] [place] [facility] [address] [id number] [place] [address] 25 Mar, 2011 [facility] [place] [facility] [address] [id number] [place] [address] 14 Mar, 2011 [facility] [place] [facility] [address] [id number] [place] [address] 14 Mar, 2011 [facility] [id number] [address] Mar, [facility] [id number] [address] Mar, [facility] [id number] [address] Mar, [facility] [id number] [place] [address] Mar, [facility] [id number] [address] Feb, [facility] [id number] [place] [address] May, [facility] [id number] [address] May, [facility] [id number] [place] [address] May, [facility] [address] [address] Apr, [facility] [address] [address] Mar, IMMUNIZATIONS Vaccine Route Administration Date Status TDAP (BOOSTRIX) IM Intramuscular September 20, 2017 Administered SOCIAL HISTORY Never Assessed REASON FOR VISIT Annual physical (female)/hot & cold flashes PLAN OF CARE Activity Details Follow Up adviser her to follow up with PCP for hot flashes Reason: VITAL SIGNS Height 69 in 2017-09-20 Weight 248 lbs 2017-09-20 Temperature 98.5 degrees Fahrenheit 2017-09-20 Heart Rate 96 bpm 2017-09-20 Respiratory Rate 20 2017-09-20 BMI 36.62 kg/m2 2017-09-20 Blood pressure systolic 120 mmHg 2017-09-20 Blood pressure diastolic 76 mmHg 2017-09-20 MEDICATIONS Medication Instructions Dosage Frequency Start Date End Date Duration Status ProAir HFA 108 (90 Base) MCG/ACT Inhalation every 4 hrs 2 puffs as needed 4h Jun, 1 month Active Sumatriptan Succinate 100 MG TAKE ONE TABLET BY MOUTH ONCE DAILY NEEDED MAY REPEAT IN 2 HOURS IF HEADACHE REOCCURS 14 Active Hydrochlorothiazide 25 MG Orally Once a day 1/2 tablet 24h 180 days Active Neurontin 300 MG Orally two times a day 3 capsules 12h 13 Aug, 2014 30 days Active Quetiapine Fumarate 300 MG TAKE ONE (1) TABLET BY MOUTH ONCE DAILY AT BEDTIME 30 Active Seroquel 50 MG Orally three times a day as needed for anxiety 1 tablet Mar, Active Effexor XR 75 MG Orally Once a day 1 capsule every morning for one week then take 2 cap every morning 24h Aug, 30 day(s) Active Acyclovir 400 mg Orally 2 times a day TAKE ONE TABLET 12h 90 Active Omeprazole 20 MG TAKE ONE CAPSULE BY MOUTH ONCE DAILY 90 Active Alprazolam 2 MG Orally Twice a day (part of taper dose) 1 tablet 30 days Active Xanax 0.5 MG Orally daily (part of tapering dose) 1 tablets Apr, 30 days Active Lisinopril 40 MG TAKE ONE TABLET BY MOUTH ONCE DAILY 30 Active Ibuprofen 800 MG TAKE ONE TABLET BY MOUTH THREE TIMES DAILY WITH FOOD OR MILK 30 Active Seroquel 300 MG Orally every bedtime 1 tablet 14 May, 2016 Active RESULTS No Results PROCEDURES Procedure Date Ordered Result Body Site LIPID PANEL September 20, 2017 SINGLE IMMUNIZATION ADMIN September 20, 2017 COMPREHEN METABOLIC PANEL September 20, 2017 No Charge September 20, 2017 TRICHOMONAS ASSAY W/OPTIC September 20, 2017 TDAP (BOOSTRIX) September 20, 2017 CULTURE, BACTERIA, OTHER September 20, 2017 COMPLETE CBC W/AUTO DIFF WBC September 20, 2017 GONADOTROPIN (FSH) September 20, 2017 URINALYSIS, AUTO, W/O SCOPE September 20, 2017 GONADOTROPIN (LH) September 20, 2017 VENIPUNCT, ROUTINE* September 20, 2017 Bacterial Vaginosis In House September 20, 2017 ASSAY OF VITAMIN D September 20, 2017 Separate E/M September 20, 2017 INSTRUCTIONS MEDICATIONS ADMINISTERED No Known Medications [...] I 2000 Hospitalization History inpatient , SI 2007
--- OUTSIDE RECORDS SUMMARY | 2018-08-19 09:31 | XMS REPORT ---
Author Author SOFIA WENDI Organization [facility] Address [address] [place] [address] Care Team Providers Care Accounting Lecturer Name Role Phone SOFIAMARIA EUEGNIA ELIZABETHHANY Unavailable PROBLEMS Type Condition ICD9-CM Code MAR98-GF Code Onset Dates Condition Status SNOMED Code Problem Mixed hyperlipidemia E78.2 Active 113611725 Problem Vitamin D deficiency E55.9 Active 66099974 Problem Essential hypertension I10 Active 93293006 Problem Mild intermittent asthma without complication J45.20 Active 156071908 Problem Generalized anxiety disorder F41.1 Active 59975117 Problem Gastroesophageal reflux disease, esophagitis presence not specified K21.9 Active 625525550 Problem Bipolar disorder, current episode mixed, moderate F31.62 Active 779402264 Problem Bipolar disorder F31.9 Active 98358896 Problem Panic disorder F41.0 Active 269887311 Problem Low back pain with sciatica, sciatica laterality unspecified, unspecified back pain laterality, unspecified chronicity M54.40 Active 685146347 Problem Acute right-sided low back pain with right-sided sciatica M54.41 Active 58460425 Problem Excessive thirst R63.1 Active 87486497 Problem Concussion without loss of consciousness, initial encounter S06.0X0A Active 17404305 Problem Primary insomnia F51.01 Active 576351085 Problem Anxiety F41.9 Active 75931702 Problem Hematuria R31.9 Active 08483194 Problem Hot flashes R23.2 Active 904210205 Problem Multiple fractures T07.XXXA Active 692501356 Problem Nausea R11.0 Active 472715096 Problem Hospital discharge follow-up Z09 Active 818444005 Problem Breast tenderness N64.4 Active 33528864 Problem Depression F32.9 Active 88065014 Problem Hidradenitis suppurativa L73.2 Active 96471019 Problem History of IBS Z87.19 Active 14379526145465 Problem Localized edema R60.0 Active 647329802 Problem Posttraumatic stress disorder F43.10 Active 50474921 Problem Genital herpes simplex, unspecified site A60.00 Active 83716100 Problem Tobacco use Z72.0 Active 354349208 ALLERGIES No Information ENCOUNTERS Encounter Location Date Diagnosis [place] [address], [place] [address] Jan, [place] [address] [place] [id number] [place] [address] 29165- 1044 Dec, Diaphoresis R61 and Excessive thirst R63.1 [place] [address] [place] [id number] [place] [address] 55514- 5568 Dec, Panic disorder F41.0 ; Bipolar disorder, current episode mixed, moderate F31.62 and Generalized anxiety disorder F41.1 [place] [address] [place] [address] 79573- 4629 Dec, Panic disorder F41.0 [place] [address] [place] [id number] [place] [address] 18503- 0360 Nov, Panic disorder F41.0 [place] [address] [place] [id number] [place] [address] 03580- 3252 Nov, Panic disorder F41.0 ; Generalized anxiety disorder F41.1 and Bipolar disorder, current episode mixed, moderate F31.62 [place] [address], [place] [address] 8839 Nov, Panic disorder F41.0 [place] [address] [id number] [place] [address] 49673- 6995 Nov, Panic disorder F41.0 [place] [address] [place] [id number] [place] [address] 21961- 0634 October, Panic disorder F41.0 [place] [address] [id number] [place] [address] 34927- 9710 October, Panic disorder F41.0 ; Generalized anxiety disorder F41.1 and Bipolar disorder, current episode mixed, moderate F31.62 [place] [address] [place] [place] [address] October, Panic disorder F41.0 [place] [address] 78433- 6732 Sep, Hospital discharge follow-up Z09 ; Concussion without loss of consciousness, initial encounter S06.0X0A and Nausea R11.0 [place] [address] 45012- 6440 Sep, [place] [address] 16825- 5259 Sep, Panic disorder F41.0 [place] [address] 74028- 5341 Sep, [place] [address] [place] [id number] [place] [address] 24513- 7953 Sep, Well woman exam with routine gynecological exam Z01.419 ; Multiple fractures T07.XXXA ; Hot flashes R23.2 ; Essential hypertension I10 ; Mixed hyperlipidemia E78.2 ; Genital herpes simplex, unspecified site A60.00 ; Alkaline phosphatase elevation R74.8 ; Dysuria R30.0 ; Vitamin D deficiency E55.9 ; Tobacco use Z72.0 ; High risk sexual behavior Z72.51 and Encounter for immunization Z23 [place] [address] [place] [id number] [place] [address] 24081- 8214 Aug, Panic disorder F41.0 ; Generalized anxiety disorder F41.1 and Bipolar disorder, current episode mixed, moderate F31.62 [place] [address] [place] [id number] [place] [address] 49411- 1743 Aug, [place] [address] 36365- 8491 Jul, Panic disorder F41.0 ; Generalized anxiety disorder F41.1 and Bipolar disorder, current episode mixed, moderate F31.62 [place] [address] [place] [id number] [place] [address] 54182- 2905 Jul, [facility] [address] [place] [address] 11266- 4461 Jul, [facility] [address] [id number] [place] [address] 13920- 4798 Jul, Effusion, right knee M25.461 ; Acute pain of right knee M25.561 and Acute pain of left knee M25.562 [facility] [address] [id number] [place] [address] 10673- 2120 Jun, Bipolar disorder, current episode mixed, moderate F31.62 ; Generalized anxiety disorder F41.1 and Panic disorder F41.0 [place] [address] [place] [id number] [place] [address] 24924- 4980 May, Bipolar disorder, current episode mixed, moderate F31.62 ; Generalized anxiety disorder F41.1 and Panic disorder F41.0 [place] [address] [id number] [place] [address] 77087- 4404 May, Bipolar disorder, current episode mixed, moderate F31.62 [facility] [address] [id number] [place] [address] 81611- 3374 May, Bipolar disorder, current episode mixed, moderate F31.62 [facility] [address] [id number] [place] [address] 28283- 1355 Apr, Bipolar disorder, current episode mixed, moderate F31.62 ; Generalized anxiety disorder F41.1 and Panic disorder F41.0 [place] [address] [place] [address] 74576- 8957 Mar, [facility] [address] [place] [address] 29760- 7076 Mar, Bipolar disorder, current episode mixed, moderate F31.62 ; Generalized anxiety disorder F41.1 and Panic disorder F41.0 [facility] [address] [place] [address] 58409- 3516 Feb, [facility] [address] [id number] [place] [address] 46453- 8837 22 Feb, 2017 Posttraumatic stress disorder F43.10 [place] [address] 32720- 7869 20 Feb, 2017 Gastroesophageal reflux disease, esophagitis presence not specified K21.9 [facility] [address] 26288- 5765 13 Feb, 2017 [facility] [address] 10285- 1944 06 Feb, 2017 Knee pain, right anterior M25.561 [place] [address] 39063- 9343 05 Feb, 2017 HSV (herpes simplex virus) infection B00.9 [facility] [address] 69142- 7668 Feb, [facility] [address] 37037- 3425 Jan, [facility] [address] 40645- 9667 Jan, Posttraumatic stress disorder F43.10 [place] [address] 23602- 4796 Jan, Foot pain, left M79.672 [place] [address] [place] [id number] [place] [address] 58102- 8290 Jan, [facility] [address] 05053- 7062 Jan, Lumbar radiculopathy, acute M54.16 ; Muscle spasm of back M62.830 and Right hip pain M25.551 [place] [address] 09035- 3284 Jan, Lumbar radiculopathy, acute M54.16 [place] [address] 78229- 7360 Jan, [facility] [id number] [place] [address] 29068- 0833 Jan, [facility] [address] [id number] [place] [address] 54269- 1321 Dec, Lumbar radiculopathy, acute M54.16 ; Acute renal insufficiency N28.9 and Muscle spasm of back M62.830 [facility] [address] [id number] [place] [address] 88720- 2226 Dec, [facility] [address] [id number] [place] [address] 80410- 8999 Dec, [place] [address] [place] [id number] [place] [address] 04084- 2527 Dec, [facility] [address] [id number] [place] [address] 44991 -3010 Dec, Low back pain with sciatica, sciatica laterality unspecified, unspecified back pain laterality, unspecified chronicity M54.40 and Acute right-sided low back pain with right-sided sciatica M54.41 [place] [address] [place] [id number] [place] [address] 71940- 8047 Dec, Posttraumatic stress disorder F43.10 [place] [address] [place] [id number] [place] [address] 74630- 8143 Dec, [facility] [address] [place] [id number] [place] [address] 42367- 1294 Dec, Pain in right thigh M79.651 and Acute right-sided low back pain without sciatica M54.5 [facility] [address] [place] [id number] [place] [address] 78003- 5937 Dec, Posttraumatic stress disorder F43.10 and Major depressive disorder, recurrent episode with anxious distress F33.9 [facility] [address] [place] [id number] [place] [address] 78438 -7600 Dec, [facility] [address] [place] [id number] [place] [address] 58774- 2366 Nov, [facility] [address], [place] [address]- 7544 October, [facility] [address] [place] [address] 523967- 5435 October, [facility] [address] [id number] [address]- 2317 October, Knee pain, right anterior M25.561 [facility] [address], [place] [address]- 1396 October, Knee pain, right anterior M25.561 [facility] [address] [id number] [place] [address] 79331- 5423 October, [facility] [id number] [place] [address] 56602- 3279 October, [facility] [id number] [place] [address] 09721- 0503 October, [facility] [address], [place] [address] -5360 Sep, [facility] [address] [place] [id number] [place] [address] 83943- 5562 Sep, [facility] [address] [address]- 6104 Sep, Essential hypertension I10 [facility] [address], [place] [address]- 6291 Sep, Essential hypertension I10 [facility] [address] [address]- 3264 Sep, [facility] [id number] [place] [address] 45272- 5642 Sep, Posttraumatic stress disorder F43.10 and Major depressive disorder, recurrent episode with anxious distress F33.9 [facility] [address], [place] [address]- 5213 Sep, Multiple fractures T14.8 ; Alkaline phosphatase elevation R74.8 and Vitamin D deficiency E55.9 [place] [address] 65474- 0449 Sep, [place] [address] 26548- 3462 Sep, Elevated serum creatinine R79.89 ; Fracture of foot, left, closed, initial encounter S92.902A and Alkaline phosphatase elevation R74.8 [place] [address] 28798- 4801 Sep, Elevated serum creatinine R79.89 and Essential hypertension I10 [place] [address] 11266- 4149 Sep, [place] [address] 47819- 2756 Aug, Gastroesophageal reflux disease, esophagitis presence not specified K21.9 [place] [address] 88538- 3260 Aug, Essential hypertension I10 ; Fracture of foot, left, closed , initial encounter S92.902A and Alkaline phosphatase elevation R74.8 [place] [address] [place] [id number] [place] [address] 18727- 5447 Jul, Genital herpes simplex, unspecified site A60.00 [place] [address] 29095- 7312 Jul, Essential hypertension I10 [place] [address] 29520- 9504 Jun, Cough R05 and Wheezing R06.2 [place] [address] 27981- 4982 Jun, Essential hypertension I10 [place] [address] 74249- 4053 May, Essential hypertension I10 [facility] [id number] [place] [address] 18619- 2828 14 May, 2016 Posttraumatic stress disorder F43.10 and Major depressive disorder, recurrent episode with anxious distress F33.9 [facility] [address] [id number] [place] [address] 40416- 6684 Apr, [facility] [address] [place] [id number] [place] [address] 43825- 8054 Apr, [facility] [id number] [place] [address] 35441- 9649 Apr, [facility] [address] 27595- 5186 Mar, [facility] [address] [place] [id number] [place] [address] 69080- 1668 Feb, [facility] [address] [place] [id number] [place] [address] 65523- 3124 Jan, [facility] [address] [place] [id number] [place] [address] 04215- 8671 Jan, Essential hypertension I10 ; Mixed hyperlipidemia E78.2 ; Gastroesophageal reflux disease, esophagitis presence not specified K21.9 ; Mild intermittent asthma without complication J45.20 ; Hidradenitis suppurativa L73.2 ; Migraine without status migrainosus, not intractable, unspecified migraine type G43.909 ; Genital herpes simplex, unspecified site A60.00 and Closed traumatic minimally displaced fracture of metatarsal bone of left foot S92.302A [facility] [id number] [place] [address] 00247 -1020 Jan, Localized edema R60.0 [facility] [id number] [place] [address] 59591- 3736 Dec, [facility] [id number] [place] [address] 26994- 9683 Dec, [facility] [id number] [place] [address] 70380- 5963 Dec, [facility] [address] [place] [address] 72272 -6943 Dec, Cough R05 ; Tobacco dependence F17.200 and Costochondritis , acute M94.0 [facility] [id number] [place] [address] 98324- 1456 Dec, Major depression, recurrent F33.9 ; Bipolar disorder, unspecified F31.9 and Posttraumatic stress disorder F43.10 [facility] [id number] [place] [address] 59590- 8857 Nov, [facility] [id number] [place] [address] 11918- 0025 Nov, [facility] [address] [id number] [place] [address] 80990- 3510 October, [facility] [id number] [place] [address] 88491 -8268 October, Acute upper respiratory infection, unspecified J06.9 [facility] [id number] [place] [address] 87626- 3053 October, [facility] [id number] [place] [address] 31160- 4575 Sep, Bipolar affective disorder, remission status unspecified F31.9 and Post-traumatic stress disorder F43.10 [facility] [id number] [place] [address] 60752- 1966 Sep, Bipolar disorder, unspecified F31.9 ; Posttraumatic stress disorder F43.10 and Major depression, recurrent F33.9 [facility] [address] [id number] [place] [address] 16448- 8966 16 Aug, 2015 Edema R60.9 ; Fatigue R53.83 and Polydipsia R63.1 [facility] [address] [place] [id number] [place] [address] 11928- 8214 Aug, [facility] [address] [address]- 3289 Aug, [facility] [address] [place] [address] 81366- 6027 Jul, [facility] [address] [place] [id number] [place] [address] 69302- 2257 Jul, [place] [address] [place] [id number] [place] [address] 02219- 5440 Jun, [facility] [address] [id number] [place] [address] 44269- 0182 Jun, [place] [address] [place] [id number] [place] [address] 92114- 5887 Jun, [place] [address] [place] [id number] [place] [address] 00366- 7659 Jun, [place] [address] [place] [id number] [place] [address] 32080- 1337 May, Mixed hyperlipidemia E78.2 [place] [address] [place] [id number] [place] [address] 72480- 3787 May, Well woman exam Z01.419 ; History of herpes simplex infection Z86.19 ; Papanicolaou smear Z12.4 ; History of depression Z86.59 ; History of anxiety Z86.59 ; Lipoma of other specified sites D17.79 ; Hidradenitis suppurativa L73.2 ; Routine screening for STI (sexually transmitted infection) Z11.3 and Tobacco use Z72.0 [place] [address] [place] [address] 01249- 7207 May, Hematuria R31.9 ; Essential hypertension I10 ; Pure hypercholesterolemia E78.0 and Hidradenitis L73.2 [place] [id number] [place] [address] 16799- 3496 May, Upper respiratory symptom R09.89 and Allergic rhinitis J30.9 [place] [id number] [place] [address] 82211- 6549 May, [facility] [address], [place] [address]- 3817 May, [facility] [id number] [place] [address] 183596- 9466 May, Bipolar disorder, unspecified F31.9 ; Posttraumatic stress disorder F43.10 and Major depression, recurrent F33.9 [facility] [id number] [place] [address] 44824- 7274 May, [facility] [id number] [place] [address] 382272- 4686 May, [facility] [id number] [place] [address] 30424- 9405 Apr, [facility] [id number] [place] [address] 94768- 0183 Apr, [facility] [id number] [place] [address] 26251- 6925 Mar, [facility] [id number] [place] [address] 78739- 6453 Mar, [facility] [id number] [place] [address] 47959- 7989 Mar, [facility] [address] [place] [address] 31575- 8279 18 Feb, 2015 Major depressive disorder, recurrent episode, moderate 296.32 and Post traumatic stress disorder (PTSD) 309.81 [facility] [address], [place] [address]- 9428 10 Feb, 2015 [facility] [id number] [place] [address] 829395- 8953 08 Feb, 2015 [facility] [address], [place] [address]- 7092 Jan, Cough 786.2 [facility] [id number] [place] [address] 48602- 5939 Jan, Depression, major, recurrent, moderate 296.32 and Post traumatic stress disorder (PTSD) 309.81 [facility] [address] 7729 Jan, [facility] [id number] [place] [address] 37096- 4121 Dec, [facility] [id number] [place] [address] 81516- 9174 Dec, Generalized anxiety disorder 300.02 and Depression, major, recurrent, moderate 296.32 [facility] [id number] [place] [address] 37395- 0074 Dec, [facility] [id number] [place] [address] 68864- 7882 Dec, High risk medication use V58.69 [facility] [id number] [place] [address] 56981- 1048 Dec, High risk medication use V58.69 [facility] [address] [place] [address] 51286- 5951 Dec, [facility] [id number] [place] [address] 69528- 2348 Nov, Generalized anxiety disorder 300.02 and Major depressive disorder, recurrent episode, moderate 296.32 [facility] [id number] [place] [address] [id number] Nov, Dental examination V72.2 [facility] [address] [place] [address] [id number] Nov, Dental examination V72.2 [facility] [address], [place] [address] 2546 Nov, [facility] [id number] [place] [address] [id number] Nov, Dental examination V72.2 [facility] [id number] [place] [address] [id number] Nov, Dental examination V72.2 [facility] [address], [place] [address]- 7396 October, Major depressive disorder, recurrent episode, moderate 296.32 and Generalized anxiety disorder 300.02 [facility] [address] [facility] [id number] [address]- 2546 October, [facility] [id number] [place] [address] 50075- 2126 October, [facility] [address] [facility] [id number] [address]- 2546 October, [facility] [id number] [place] [address] 20940- 4216 Sep, [facility] [address], [place] [address]- 2276 Sep, [facility] [id number] [place] [address] 50670- 8106 Aug, [facility] [address], [place] [address]- 0266 Aug, [facility] [address], [place] [address]- 9086 Aug, [facility] [address], [place] [address]- 2396 Aug, [facility] [address], [place] [address]- 2546 Aug, [facility] [id number] [address]- 2546 Aug, [facility] [id number] [address] Aug, [facility] [id number], [place] [address] 16 Jul, 2014 [facility] [id number] [address] Jul, 2014 [facility] [place] [facility] [address] [id number] [place] [address] Jul, 2014 [facility] [place] [facility] [address] [id number] [place] [address] Jul, 2014 [facility] [place] [facility] [address] [id number] [place] [address] Jul, 2014 [facility] [place] [facility] [address] [id number] [place] [address] Jul, 2014 [facility] [place] [facility] [address] [id number] [place] [address] Jul, 2014 [facility] [place] [facility] [address] [id number] [place] [address] Jul, 2014 [facility] [place] [facility] [address] [id number] [place] [address] Jul, [facility] [place] [facility] [address] [id number] [place] [address] Jun, [facility] [place] [facility] [address] [id number] [place] [address] 4[address] Jun, [facility] [place] [facility] [address] [facility] [id number] [place] [address] 1117 Jun, [facility] [place] [facility] [address] [id number] [place] [address] 6110 Jun, [facility] [place] [facility] [address] [id number], [place] [address] 267[address] Jun, [facility] [place] [facility] [address] [id number] [place] [address] 7516 Jun, [facility] [place] [facility] [address] [facility] [id number] [place] [address]- 2881 Jun, [facility] [place] [facility] [address] [id number] [place] [address]- 9373 Jun, [facility] [place] [facility] [address] [id number] [place] [address] 9160 Jun, [facility] [place] [facility] [address] [id number] [place] [address]- 0735 Jun, [facility] [place] [facility] [address] [id number] [place] [address]- 0159 Jun, [facility] [place] [facility] [address] [id number] [place] [address] 1895 Jun, [facility] [place] [facility] [address] [id number] [place] [address]- 2287 Jun, [facility] [place] [facility] [address] [id number] [place] [address]- 8075 Jun, [facility] [place] [facility] [address] [id number] [place] [address]- 4523 Jun, [facility] [place] [facility] [address] [id number] [place] [address]- 0493 Jun, [facility] [place] [facility] [address] [id number] [place] [address]- 1217 Jun, [facility] [place] [facility] [address] [id number] [place] [address]- 5398 Jun, [facility] [place] [facility] [address] [id number] [place] [address]- 3393 Jun, [facility] [place] [facility] [address] [id number] [place] [address]- 2552 Jun, [facility] [place] [facility] [address] [id number] [place] [address]- 1086 Jun, [facility] [place] [facility] [address] [id number] [place] [address]- 8821 Jun, [facility] [place] [facility] [address] [id number] [place] [address]- 0826 Jun, [facility] [place] [facility] [address] [id number] [place] [address]- 6927 Jun, [facility] [place] [facility] [address] [id number] [place] [address]- 8037 Jun, [facility] [place] [facility] [address] [id number] [place] [address] May, [facility] [place] [facility] [address] [id number] [place] [address]- 2266 May, [facility] [place] [facility] [address] [id number] [place] [address]- 7334 May, [facility] [place] [facility] [address] [id number] [place] [address]- 1863 May, [facility] [place] [facility] [address] [id number] [place] [address]- 9425 May, [facility] [place] [facility] [address] [id number] [place] [address]- 0488 May, [facility] [place] [facility] [address] [id number] [place] [address]- 0967 May, [facility] [place] [facility] [address] [id number] [place] [address]- 7581 May, [facility] [place] [facility] [address] [id number] [place] [address]- 2594 May, [facility] [place] [facility] [address] [id number] [place] [address]- 7787 May, [facility] [place] [facility] [address] [id number] [place] [address]- 5333 May, [facility] [place] [facility] [address] [id number] [place] [address]- 5406 May, [facility] [place] [facility] [address] [id number] [place] [address]- 6636 May, [facility] [place] [facility] [address] [id number] [place] [address]- 7306 May, [facility] [place] [facility] [address] [id number] [place] [address]- 7135 08 May, 2014 [facility] [place] [facility] [address] [id number] [place] [address]- 9320 May, [facility] [place] [facility] [address] [id number] [place] [address]- 4554 May, [facility] [place] [facility] [address] [id number] [place] [address]- 8446 May, [facility] [place] [facility] [address] [id number] [place] [address]- 7320 Apr, [facility] [place] [facility] [address] [id number] [place] [address]- 6545 Apr, [facility] [place] [facility] [address] [id number] [place] [address]- 7712 Apr, [facility] [place] [facility] [address] [id number] [place] [address]- 6549 Apr, [facility] [place] [facility] [address] [id number] [place] [address]- 3636 Apr, [facility] [place] [facility] [address] [id number] [place] [address]- 8457 Apr, [facility] [place] [facility] [address] [id number] [place] [address]- 7224 Apr, [facility] [place] [facility] [address] [id number] [place] [address]- 7856 Apr, [facility] [place] [facility] [address] [id number] [place] [address]- 0655 Mar, [facility] [place] [facility] [address] [id number] [place] [address]- 9463 Mar, [facility] [place] [facility] [address] [id number] [place] [address]- 7659 Feb, [facility] [place] [facility] [address] [id number] [place] [address]- 2800 Feb, [facility] [place] [facility] [address] [id number] [place] [address]- 2773 Feb, 2013 [facility] [place] [facility] [address] [id number] [place] [address]- 0742 Feb, [facility] [place] [facility] [address] [id number] [place] [address]- 3831 Feb, 2013 [facility] [place] [facility] [address] [id number] [place] [address]- 7554 Feb, 2013 [facility] [place] [facility] [address] [id number] [place] [address]- 4955 Feb, [facility] [place] [facility] [address] [id number] [place] [address]- 4823 Feb, [facility] [place] [facility] [address] [id number] [place] [address]- 2783 Feb, [facility] [place] [facility] [address] [id number] [place] [address]- 5672 Feb, [facility] [place] [facility] [address] [id number] [place] [address]- 4376 Jan, [facility] [place] [facility] [address] [id number] [place] [address]- 5198 Jan, [facility] [place] [facility] [address] [id number] [place] [address]- 0451 Jan, [facility] [place] [facility] [address] [id number] [place] [address]- 9469 Jan, [facility] [place] [facility] [address] [id number] [place] [address]- 5460 Jan, [facility] [place] [facility] [address] [id number] [place] [address]- 9377 Jan, [facility] [place] [facility] [address] [id number] [place] [address]- 6880 Jan, [facility] [place] [facility] [address] [id number] [place] [address]- 5414 Jan, [facility] [place] [facility] [address] [id number] [place] [address]- 1752 Jan, [facility] [place] [facility] [address] [id number] [place] [address]- 8720 Jan, [facility] [place] [facility] [address] [id number] [place] [address]- 4221 Jan, [facility] [place] [facility] [address] [id number] [place] [address]- 0758 Jan, [facility] [place] [facility] [address] [id number] [place] [address]- 9711 Jan, [facility] [place] [facility] [address] [id number] [place] [address]- 3822 Dec, [facility] [place] [facility] [address] [id number] [place] [address]- 6687 Dec, [facility] [place] [facility] [address] [id number] [place] [address]- 0750 Dec, [facility] [place] [facility] [address] [id number] [place] [address]- 9178 Dec, [facility] [place] [facility] [address] [id number] [place] [address]- 0258 Dec, [facility] [place] [facility] [address] [id number] [place] [address]- 9519 Dec, [facility] [place] [facility] [address] [id number] [place] [address]- 3588 Dec, [facility] [place] [facility] [address] [id number] [place] [address]- 4212 Dec, [facility] [place] [facility] [address] [id number] [place] [address]- 3296 Dec, [facility] [place] [facility] [address] [id number] [place] [address]- 8036 Dec, [facility] [place] [facility] [address] [id number] [place] [address]- 9590 Dec, [facility] [place] [facility] [address] [id number] [place] [address]- 1053 Dec, [facility] [place] [facility] [address] [id number] [place] [address]- 9928 Dec, [facility] [place] [facility] [address] [id number] [place] [address]- 8903 Dec, [facility] [place] [facility] [address] [id number] [place] [address]- 3246 Nov, [facility] [place] [facility] [address] [id number] [place] [address]- 8146 Nov, [facility] [place] [facility] [address] [id number] [place] [address]- 2280 Nov, [facility] [place] [facility] [address] [id number] [place] [address]- 2074 Nov, [facility] [place] [facility] [address] [id number] [place] [address]- 5370 Nov, [facility] [place] [facility] [address] [id number] [place] [address]- 6216 Nov, [facility] [place] [facility] [address] [id number] [place] [address]- 6275 Nov, [facility] [place] [facility] [address] [id number] [place] [address]- 5945 Nov, [facility] [place] [facility] [address] [id number] [place] [address]- 0518 October, [facility] [place] [facility] [address] [id number] [place] [address]- 0876 October, [facility] [place] [facility] [address] [id number] [place] [address]- 3837 October, [facility] [place] [facility] [address] [id number] [place] [address]- 6864 October, [facility] [address] [id number] [place] [address]- 0232 October, [facility] [place] [facility] [address] [id number] [place] [address]- 3320 October, [facility] [place] [facility] [address] [id number] [place] [address]- 2791 October, [facility] [place] [facility] [address] [id number] [place] [address]- 7789 October, [facility] [place] [facility] [address] [id number] [place] [address]- 8298 October, [facility] [place] [facility] [address] [id number] [place] [address]- 4967 October, [facility] [place] [facility] [address] [id number] [place] [address]- 8370 October, [facility] [place] [facility] [address] [id number] [place] [address]- 1517 October, [facility] [place] [facility] [address] [id number] [place] [address]- 7717 October, [facility] [place] [facility] [address] [id number] [place] [address]- 4160 October, [facility] [place] [facility] [address] [id number] [place] [address]- 5557 October, [facility] [place] [facility] [address] [id number] [place] [address]- 9970 October, [facility] [place] [facility] [address] [id number] [place] [address]- 8211 Sep, [facility] [place] [facility] [address] [id number] [place] [address]- 3785 Sep, [facility] [place] [facility] [address] [id number] [place] [address]- 2412 Sep, [facility] [place] [facility] [address] [id number] [place] [address]- 6328 Sep, [facility] [place] [facility] [address] [id number] [place] [address]- 7725 Sep, [facility] [place] [facility] [address] [id number] [place] [address]- 9382 Sep, [facility] [place] [facility] [address] [id number] [place] [address]- 2967 Sep, [facility] [place] [facility] [address] [id number] [place] [address]- 9475 Sep, [facility] [place] [facility] [address] [id number] [place] [address]- 9469 Sep, [facility] [place] [facility] [address] [id number] [place] [address]- 0752 Sep, [facility] [place] [facility] [address] [id number] [place] [address]- 3047 Sep, [facility] [place] [facility] [address] [id number] [place] [address]- 3105 Sep, [facility] [place] [facility] [address] [id number] [place] [address]- 3089 Sep, [facility] [place] [facility] [address] [id number] [place] [address]- 3411 Sep, [facility] [place] [facility] [address] [id number] [place] [address]- 2848 Sep, [facility] [place] [facility] [address] [id number] [place] [address]- 2924 Sep, [facility] [place] [facility] [address] [id number] [place] [address]- 9106 Sep, [facility] [place] [facility] [address] [id number] [place] [address]- 6261 Sep, [facility] [place] [facility] [address] [id number] [place] [address]- 1073 Sep, [facility] [place] [facility] [address] [id number] [place] [address]- 3797 Aug, [facility] [place] [facility] [address] [id number] [place] [address]- 8816 Aug, [facility] [place] [facility] [address] [id number] [place] [address]- 9355 Aug, [facility] [place] [facility] [address] [id number] [place] [address]- 8840 Aug, [facility] [place] [facility] [address] [id number] [place] [address]- 3971 Jul, [facility] [place] [facility] [address] [id number] [place] [address]- 9468 Jul, [facility] [place] [facility] [address] [id number] [place] [address]- 6895 Jul, [facility] [place] [facility] [address] [id number] [place] [address]- 9365 Jul, [facility] [place] [facility] [address] [id number] [place] [address]- 5263 Jul, [facility] [place] [facility] [address] [id number] [place] [address]- 0234 Jul, [facility] [place] [facility] [address] [id number] [place] [address]- 3081 Jul, [facility] [place] [facility] [address] [id number] [place] [address]- 9259 Jul, [facility] [place] [facility] [address] [id number] [place] [address]- 0811 Jul, [facility] [place] [facility] [address] [id number] [place] [address]- 8222 Jul, [facility] [place] [facility] [address] [id number] [place] [address]- 8196 Jul, [facility] [place] [facility] [address] [id number] [place] [address]- 9550 Jul, [facility] [address] [id number] [place] [address]- 8133 Jun, [facility] [place] [facility] [address] [id number] [place] [address]- 1184 Jun, [facility] [address] [id number] [place] [address]- 7156 Jun, [facility] [address] [id number] [place] [address]- 0948 Jun, [facility] [address] [id number] [place] [address]- 8155 Jun, [facility] [address] [id number] [place] [address]- 6785 Jun, [facility] [address] [id number] [place] [address]- 8339 May, [facility] [address] [id number] [place] [address]- 2235 May, [facility] [address] [id number] [place] [address]- 6864 Apr, [facility] [address] [id number] [place] [address]- 4070 Apr, [facility] [place] [facility] [address] [id number] [place] [address]- 2710 Apr, [facility] [address] [id number] [place] [address]- 9304 Apr, [facility] [place] [facility] [address] [id number] [place] [address]- 9384 Apr, [facility] [place] [facility] [address] [id number] [place] [address]- 6532 Apr, [facility] [place] [facility] [address] [id number] [place] [address]- 3286 17 Apr, 2013 [facility] [place] [facility] [address] [id number] [place] [address]- 9668 15 Apr, 2013 [facility] [place] [facility] [address] [id number] [place] [address]- 4347 15 Apr, 2013 [facility] [place] [facility] [address] [id number] [place] [address]- 2885 15 Apr, 2013 [facility] [place] [facility] [address] [id number] [place] [address]- 9573 15 Apr, 2013 [facility] [place] [facility] [address] [id number] [place] [address]- 7093 Apr, [facility] [place] [facility] [address] [id number] [place] [address]- 5098 Apr, [facility] [place] [facility] [address] [id number] [place] [address]- 0233 31 Mar, 2013 [facility] [place] [facility] [address] [id number] [place] [address]- 1648 31 Mar, 2013 [facility] [place] [facility] [address] [id number] [place] [address]- 7989 25 Mar, 2013 [facility] [place] [facility] [address] [id number], [place] [address]- 6251 25 Mar, 2013 [facility] [place] [facility] [address] [id number], [place] [address]- 8645 17 Mar, 2013 [facility] [place] [facility] [address] [id number], [place] [address]- 0150 17 Mar, 2013 [facility] [place] [facility] [address] [id number] [place] [address]- 1820 14 Mar, 2013 [facility] [place] [facility] [address] [id number], [place] [address]- 9724 14 Mar, 2013 [facility] [place] [facility] [address] [id number], [place] [address]- 1685 11 Mar, 2013 [facility] [place] [facility] [address] [id number] [place] [address]- 8615 11 Mar, 2013 [facility] [address] [id number] [place] [address]- 2438 02 Mar, 2013 [facility] [place] [facility] [address] [id number] [place] [address]- 0294 30 Feb, 2013 [facility] [place] [facility] [address] [id number] [place] [address]- 1521 28 Feb, 2013 [facility] [place] [facility] [address] [id number] [place] [address]- 9965 27 Feb, 2013 [facility] [place] [facility] [address] [id number] [place] [address]- 8220 27 Feb, 2013 [facility] [place] [facility] [address] [id number] [place] [address]- 6573 20 Feb, 2013 [facility] [address] [id number] [place] [address]- 2147 10 Feb, 2013 [facility] [place] [facility] [address] [id number] [place] [address]- 8371 Jan, [facility] [place] [facility] [address] [id number] [place] [address]- 2915 Jan, [facility] [place] [facility] [address] [id number] [place] [address]- 5174 Dec, [facility] [place] [facility] [address] [id number] [place] [address]- 4478 Dec, [facility] [place] [facility] [address] [id number] [place] [address]- 1078 15 Dec, 2012 [facility] [place] [facility] [address] [id number] [place] [address]- 5753 Dec, [facility] [place] [facility] [address] [id number] [place] [address]- 7795 Nov, [facility] [place] [facility] [address] [id number] [place] [address]- 2457 14 Nov, 2012 [facility] [place] [facility] [address] [id number] [place] [address]- 9017 Nov, [facility] [address] [id number] [place] [address]- 8733 October, [facility] [address] [id number] [place] [address]- 9026 October, [facility] [address] [id number] [place] [address] October, [facility] [address] [id number] [place] [address] October, [facility] [address] [id number] [place] [address] October, [facility] [address] [id number] [place] [address] Sep, [facility] [address] [id number] [place] [address] Sep, [facility] [address] [id number] [place] [address] Aug, [facility] [address] [id number] [place] [address] Aug, [facility] [address] [id number] [place] [address] Aug, [facility] [address] [id number] [place] [address] Aug, [facility] [address] [id number] [place] [address] Aug, [facility] [place] [facility] [address] [id number] [place] [address] Jul, [facility] [place] [facility] [address] [id number] [place] [address] Jul, [facility] [place] [facility] [address] [id number] [place] [address] 06 Jul, 2012 [facility] [address] [id number] [place] [address] Jul, [facility] [address] [id number] [place] [address] Jun, [facility] [address] [id number] [place] [address] Jun, [facility] [address] [id number] [place] [address] Jun, [facility] [address] [id number] [place] [address] Jun, [facility] [address] [id number] [place] [address] Jun, [facility] [address] [id number] [place] [address] Jun, [facility] [address] [id number] [place] [address] Jun, [facility] [address] [id number] [place] [address]- [address] Jun, [facility] [address] [id number] [place] [address] Jun, [facility] [address] [id number] [place] [address] Jun, [facility] [address] [id number] [place] [address]68 Jun, [facility] [address] [id number] [place] [address] May, [facility] [place] [facility] [address] [id number] [place] [address] May, [facility] [address] [id number] [place] [address] Apr, [facility] [place] [facility] [address] [id number] [place] [address] Apr, [facility] [place] [facility] [address] [id number] [place] [address] Mar, 2011 [facility] [place] [facility] [address] [id number] [place] [address] Mar, 2011 [facility] [place] [facility] [address] [id number] [place] [address] 25[address] Mar, [facility] [place] [facility] [address] [id number] [place] [address] Mar, [facility] [place] [facility] [address] [id number] [place] [address] Mar, [facility] [place] [facility] [address] [id number] [place] [address] Mar, [facility] [place] [facility] [address] [id number] [place] [address] Mar, [facility] [place] [facility] [address] [id number] [place] [address] 39[address] Mar, [facility] [place] [facility] [address] [id number] [place] [address] Mar, [facility] [place] [facility] [address] [id number] [place] [address] Feb, [facility] [place] [facility] [address] [id number] [place] [address] Jan, [facility] [place] [facility] [address] [id number] [place] [address] Jan, [facility] [place] [facility] [address] [id number] [place] [address] Dec, [facility] [place] [facility] [address] [id number] [place] [address] Dec, [facility] [place] [facility] [address] [id number] [place] [address] Dec, [facility] [place] [facility] [address] [id number] [place] [address] Nov, [facility] [place] [facility] [address] [id number] [place] [address] 39[address] Nov, [facility] [place] [facility] [address] [id number] [place] [address]- [address]37 Nov, [facility] [place] [facility] [address] [id number] [place] [address]- [address]686 Nov, [facility] [place] [facility] [address] [id number] [place] [address] 100[address] October, [facility] [place] [facility] [address] [id number] [place] [address] October, [facility] [place] [facility] [address] [id number] [place] [address] Sep, [facility] [place] [facility] [address] [id number] [place] [address]- [address] Sep, [facility] [place] [facility] [address] [id number] [place] [address] Aug, [facility] [place] [facility] [address] [id number] [place] [address] Jul, [facility] [place] [facility] [address] [id number] [place] [address] Jul, [facility] [place] [facility] [address] [id number] [place] [address]- 9280 Jul, [facility] [place] [facility] [address] [id number] [place] [address]- 8635 Jul, [facility] [place] [facility] [address] [id number] [place] [address]- 2497 Jun, [facility] [place] [facility] [address] [id number] [place] [address] May, [facility] [place] [facility] [address] [id number] [place] [address]- [address] 15 May, 2011 [facility] [place] [facility] [address] [id number] [place] [address]- 8432 15 May, 2011 [facility] [place] [facility] [address] [id number] [place] [address]- 6046 13 May, 2011 [facility] [place] [facility] [address] [id number] [place] [address]- 6096 08 May, 2011 [facility] [place] [facility] [address] [id number] [place] [address]- 46[address] 14 Apr, 2011 [facility] [place] [facility] [address] [id number] [place] [address]- 1872 14 Apr, 2011 [facility] [place] [facility] [address] [id number] [place] [address]- [address]109 14 Apr, 2011 [facility] [place] [facility] [address] [id number] [place] [address]- 0635 07 Apr, 2011 [facility] [place] [facility] [address] [id number] [place] [address]- 7190 02 Apr, 2011 [facility] [place] [facility] [address] [id number] [place] [address]- 5472 26 Mar, 2011 [facility] [place] [facility] [address] [id number] [place] [address]- 2008 25 Mar, 2011 [facility] [place] [facility] [address] [id number] [place] [address]- 5488 14 Mar, 2011 [facility] [place] [facility] [address] [id number] [place] [address]- 1215 14 Mar, 2011 [facility] [place] [facility] [address] [id number] [place] [address]- 8340 13 Mar, 2011 [facility] [place] [facility] [address] [id number] [place] [address]- 0736 11 Mar, 2011 [facility] [place] [facility] [address] [id number] [place] [address]- 1254 11 Mar, 2011 [facility] [address] [facility] [id number] [address] 11 Mar, 2011 [facility] [address] [id number] [address] 14 Feb, 2011 [facility] [address] [id number] [address] May, [facility] [id number] [address] May, [facility] [address] [id number] [address] May, [facility] [address] [id number], [place] [address] Apr, [facility] [address] [id number], [place] [address] Mar, IMMUNIZATIONS No Known Immunizations SOCIAL HISTORY Never Assessed REASON FOR VISIT Requests return call PLAN OF CARE VITAL SIGNS MEDICATIONS Medication Instructions Dosage Frequency Start Date End Date Duration Status Cholecalciferol 400 UNIT Orally Once a day 2 tablets 24h Sep, 30 day(s) Active Lovastatin 40 mg Orally Once a day 1 tablet with a meal 24h Sep, 30 day(s) Active RESULTS No Results PROCEDURES No Known [...]
--- OUTSIDE RECORDS SUMMARY | 2018-08-19 09:32 | XMS REPORT ---
Author Author CURTIS GLENN Organization [facility] Address [address] [place] [address] Care Team Providers Care Blood Splatter Analyst Name Role Phone HARSHSALVADOR GLENN Unavailable PROBLEMS Type Condition ICD9-CM Code [id number] Code Onset Dates Condition Status SNOMED Code Problem Mixed hyperlipidemia E78.2 Active 562606950 Problem Vitamin D deficiency E55.9 Active 15965558 Problem Essential hypertension I10 Active 62011182 Problem Mild intermittent asthma without complication J45.20 Active 395755317 Problem Generalized anxiety disorder F41.1 Active 72591656 Problem Gastroesophageal reflux disease, esophagitis presence not specified K21.9 Active 061100688 Problem Bipolar disorder, current episode mixed, moderate F31.62 Active 137736857 Problem Bipolar disorder F31.9 Active 00678498 Problem Panic disorder F41.0 Active 999902094 Problem Low back pain with sciatica, sciatica laterality unspecified, unspecified back pain laterality, unspecified chronicity M54.40 Active 939182123 Problem Acute right-sided low back pain with right-sided sciatica M54.41 Active 50952487 Problem Excessive thirst R63.1 Active 91242649 Problem Concussion without loss of consciousness, initial encounter S06.0X0A Active 16300448 Problem Primary insomnia F51.01 Active 494360420 Problem Anxiety F41.9 Active 39545999 Problem Hematuria R31.9 Active 99432523 Problem Hot flashes R23.2 Active 572478121 Problem Multiple fractures T07.XXXA Active 555895024 Problem Nausea R11.0 Active 633988781 Problem Hospital discharge follow-up Z09 Active 898731095 Problem Breast tenderness N64.4 Active 74061918 Problem Depression F32.9 Active 18156126 Problem Hidradenitis suppurativa L73.2 Active 49781081 Problem History of IBS Z87.19 Active 11152221010163 Problem Localized edema R60.0 Active 165367255 Problem Posttraumatic stress disorder F43.10 Active 64150536 Problem Genital herpes simplex, unspecified site A60.00 Active 29750260 Problem Tobacco use Z72.0 Active 235637171 ALLERGIES No Information ENCOUNTERS Encounter Location Date Diagnosis [place] [address], [place] [address] Jan, [place] [id number] [place] [address] 05216- 3200 Dec, Diaphoresis R61 and Excessive thirst R63.1 [place] [id number] [place] [address] 34104- 4938 Dec, Panic disorder F41.0 ; Bipolar disorder, current episode mixed, moderate F31.62 and Generalized anxiety disorder F41.1 [place] [id number] [place] [address] 87131- 9797 Dec, Panic disorder F41.0 [place] [id number] [place] [address] 75599- 4821 Nov, Panic disorder F41.0 [place] [id number] [place] [address] 84831- 4198 Nov, Panic disorder F41.0 ; Generalized anxiety disorder F41.1 and Bipolar disorder, current episode mixed, moderate F31.62 [place] [address], [place] [address] 4816 Nov, Panic disorder F41.0 [place] [id number] [place] [address] 11974- 2464 Nov, Panic disorder F41.0 [place] [id number] [place] [address] 08523- 3495 October, Panic disorder F41.0 [place] [id number] [place] [address] 98166- 3430 October, Panic disorder F41.0 ; Generalized anxiety disorder F41.1 and Bipolar disorder, current episode mixed, moderate F31.62 [place] [address] [place] [address] 1565 October, Panic disorder F41.0 [place] [address] 85961- 0375 Sep, Hospital discharge follow-up Z09 ; Concussion without loss of consciousness, initial encounter S06.0X0A and Nausea R11.0 [place] [address] 47708- 1849 Sep, [place] [address] 23381- 3334 Sep, Panic disorder F41.0 [place] [address] 36943- 4889 Sep, [place] [id number] [place] [address] 80890- 6550 Sep, Well woman exam with routine gynecological exam Z01.419 ; Multiple fractures T07.XXXA ; Hot flashes R23.2 ; Essential hypertension I10 ; Mixed hyperlipidemia E78.2 ; Genital herpes simplex, unspecified site A60.00 ; Alkaline phosphatase elevation R74.8 ; Dysuria R30.0 ; Vitamin D deficiency E55.9 ; Tobacco use Z72.0 ; High risk sexual behavior Z72.51 and Encounter for immunization Z23 [place] [id number] [place] [address] 47048- 9503 Aug, Panic disorder F41.0 ; Generalized anxiety disorder F41.1 and Bipolar disorder, current episode mixed, moderate F31.62 [place] [id number] [place] [address] 45262- 2389 Aug, [place] [address] 55818- 0963 Jul, Panic disorder F41.0 ; Generalized anxiety disorder F41.1 and Bipolar disorder, current episode mixed, moderate F31.62 [place] [id number] [place] [address] 22444- 2298 Jul, [facility] [id number] [place] [address] 44711- 8901 Jul, [facility] [address] [id number] [place] [address] 44519- 1387 Jul, Effusion, right knee M25.461 ; Acute pain of right knee M25.561 and Acute pain of left knee M25.562 [facility] [address] [id number] [place] [address] 65327- 1052 Jun, Bipolar disorder, current episode mixed, moderate F31.62 ; Generalized anxiety disorder F41.1 and Panic disorder F41.0 [place] [id number] [place] [address] 92854- 5578 May, Bipolar disorder, current episode mixed, moderate F31.62 ; Generalized anxiety disorder F41.1 and Panic disorder F41.0 [place] [address] [id number] [place] [address] 29547- 6443 May, Bipolar disorder, current episode mixed, moderate F31.62 [facility] [id number] [place] [address] 64546- 7114 May, Bipolar disorder, current episode mixed, moderate F31.62 [facility] [id number] [place] [address] 93306- 5311 Apr, Bipolar disorder, current episode mixed, moderate F31.62 ; Generalized anxiety disorder F41.1 and Panic disorder F41.0 [place] [id number] [place] [address] 00251- 1975 Mar, [facility] [address] [place] [address] 69544- 6623 Mar, Bipolar disorder, current episode mixed, moderate F31.62 ; Generalized anxiety disorder F41.1 and Panic disorder F41.0 [facility] [id number] [place] [address] 04583- 7395 Feb, [facility] [address] [id number] [place] [address] 86037- 8585 22 Feb, 2017 Posttraumatic stress disorder F43.10 [place] [address] 85759- 5397 20 Feb, 2017 Gastroesophageal reflux disease, esophagitis presence not specified K21.9 [facility] [address] 48945- 2220 13 Feb, 2017 [facility] [address] 82994- 9373 06 Feb, 2017 Knee pain, right anterior M25.561 [place] [address] 76006- 5869 05 Feb, 2017 HSV (herpes simplex virus) infection B00.9 [facility] [address] 67035- 9625 Feb, [facility] [address] 86489- 7917 Jan, [facility] [address] 92214- 0369 Jan, Posttraumatic stress disorder F43.10 [place] [address] 32739- 7111 Jan, Foot pain, left M79.672 [place] [address] [id number] [place] [address] 24906- 1013 Jan, [facility] [address] 30813- 5355 Jan, Lumbar radiculopathy, acute M54.16 ; Muscle spasm of back M62.830 and Right hip pain M25.551 [place] [address] 07841- 7443 Jan, Lumbar radiculopathy, acute M54.16 [place] [address] 00658- 0418 Jan, [facility] [id number] [place] [address] 06366- 9502 Jan, [facility] [address] [id number] [place] [address] 10334- 1799 Dec, Lumbar radiculopathy, acute M54.16 ; Acute renal insufficiency N28.9 and Muscle spasm of back M62.830 [facility] [address] [id number] [place] [address] 31367- 8877 Dec, [facility] [id number] [place] [address] 14261- 2865 Dec, [place] [address] [id number] [place] [address] 96511- 7572 Dec, [facility] [id number] [place] [address] 31664 -1935 Dec, Low back pain with sciatica, sciatica laterality unspecified, unspecified back pain laterality, unspecified chronicity M54.40 and Acute right-sided low back pain with right-sided sciatica M54.41 [place] [address] [id number] [place] [address] 55215- 4685 Dec, Posttraumatic stress disorder F43.10 [place] [address] [place] [id number] [place] [address] 63281- 2032 Dec, [facility] [address] [id number] [place] [address] 82626- 3919 Dec, Pain in right thigh M79.651 and Acute right-sided low back pain without sciatica M54.5 [facility] [address] [id number] [place] [address] 11635- 9485 Dec, Posttraumatic stress disorder F43.10 and Major depressive disorder, recurrent episode with anxious distress F33.9 [facility] [address] [id number] [place] [address] 02199 -9093 Dec, [facility] [address] [id number] [place] [address] 70508- 5086 Nov, [facility] [address], [place] [address]- 3782 October, [facility] [id number] [place] [address] 024141- 8094 October, [facility] [id number] [address]- 3790 October, Knee pain, right anterior M25.561 [facility] [address], [place] [address]- 7812 October, Knee pain, right anterior M25.561 [facility] [id number] [place] [address] 11039- 4911 October, [facility] [id number] [place] [address] 34981- 4749 October, [facility] [id number] [place] [address] 75898- 0574 October, [facility] [address], [place] [address] -7129 Sep, [facility] [id number] [place] [address] 95084- 5667 Sep, [facility] [address], [place] [address]- 8433 Sep, Essential hypertension I10 [facility] [address], [place] [address]- 2218 Sep, Essential hypertension I10 [facility] [address], [place] [address]- 8836 Sep, [facility] [id number] [place] [address] 22845- 9617 Sep, Posttraumatic stress disorder F43.10 and Major depressive disorder, recurrent episode with anxious distress F33.9 [facility] [address], [place] [address]- 8339 Sep, Multiple fractures T14.8 ; Alkaline phosphatase elevation R74.8 and Vitamin D deficiency E55.9 [place] [address] 60119- 4038 Sep, [place] [address] 61210- 9055 Sep, Elevated serum creatinine R79.89 ; Fracture of foot, left, closed, initial encounter S92.902A and Alkaline phosphatase elevation R74.8 [place] [address] 48117- 7671 Sep, Elevated serum creatinine R79.89 and Essential hypertension I10 [place] [address] 98995- 6925 Sep, [place] [address] 32970- 3393 Aug, Gastroesophageal reflux disease, esophagitis presence not specified K21.9 [place] [address] 40212- 3684 Aug, Essential hypertension I10 ; Fracture of foot, left, closed , initial encounter S92.902A and Alkaline phosphatase elevation R74.8 [place] [address] [place] [id number] [place] [address] 96437- 8439 Jul, Genital herpes simplex, unspecified site A60.00 [place] [address] 08995- 3138 Jul, Essential hypertension I10 [place] [address] 13852- 7313 Jun, Cough R05 and Wheezing R06.2 [place] [address] 24863- 6795 Jun, Essential hypertension I10 [place] [address] 21967- 5859 May, Essential hypertension I10 [facility] [id number] [place] [address] 11983- 4036 14 May, 2016 Posttraumatic stress disorder F43.10 and Major depressive disorder, recurrent episode with anxious distress F33.9 [facility] [id number] [place] [address] 06414- 4793 Apr, [facility] [address] [id number] [place] [address] 83961- 4805 Apr, [facility] [id number] [place] [address] 93976- 0816 Apr, [facility] [address] 77943- 3284 Mar, [facility] [address] [id number] [place] [address] 41381- 1234 Feb, [facility] [address] [id number] [place] [address] 19138- 1181 Jan, [facility] [id number] [place] [address] 68215- 7122 Jan, Essential hypertension I10 ; Mixed hyperlipidemia E78.2 ; Gastroesophageal reflux disease, esophagitis presence not specified K21.9 ; Mild intermittent asthma without complication J45.20 ; Hidradenitis suppurativa L73.2 ; Migraine without status migrainosus, not intractable, unspecified migraine type G43.909 ; Genital herpes simplex, unspecified site A60.00 and Closed traumatic minimally displaced fracture of metatarsal bone of left foot S92.302A [facility] [id number] [place] [address] 60061 -9759 Jan, Localized edema R60.0 [facility] [id number] [place] [address] 59967- 6046 Dec, [facility] [id number] [place] [address] 85933- 6474 Dec, [facility] [id number] [place] [address] 53045- 8888 Dec, [facility] [id number] [place] [address] 10060 -0871 Dec, Cough R05 ; Tobacco dependence F17.200 and Costochondritis , acute M94.0 [facility] [id number] [place] [address] 06687- 8852 Dec, Major depression, recurrent F33.9 ; Bipolar disorder, unspecified F31.9 and Posttraumatic stress disorder F43.10 [facility] [id number] [place] [address] 64084- 8442 Nov, [facility] [id number] [place] [address] 17105- 3850 Nov, [facility] [id number] [place] [address] 05946- 5196 October, [facility] [id number] [place] [address] 55702 -5124 October, Acute upper respiratory infection, unspecified J06.9 [facility] [id number] [place] [address] 59139- 7655 October, [facility] [id number] [place] [address] 92257- 5255 Sep, Bipolar affective disorder, remission status unspecified F31.9 and Post-traumatic stress disorder F43.10 [facility] [id number] [place] [address] 97211- 5328 Sep, Bipolar disorder, unspecified F31.9 ; Posttraumatic stress disorder F43.10 and Major depression, recurrent F33.9 [facility] [id number] [place] [address] 95170- 0780 16 Aug, 2015 Edema R60.9 ; Fatigue R53.83 and Polydipsia R63.1 [facility] [address] [id number] [place] [address] 97954- 8184 Aug, [facility] [address] [address]- 1996 Aug, [facility] [id number] [place] [address] 74666- 5065 Jul, [facility] [id number] [place] [address] 17633- 2385 Jul, [place] [address] [id number] [place] [address] 30714- 3981 Jun, [facility] [id number] [place] [address] 16116- 2302 Jun, [place] [id number] [place] [address] 05652- 9827 Jun, [place] [id number] [place] [address] 19144- 3460 Jun, [place] [address] [id number] [place] [address] 82107- 5790 May, Mixed hyperlipidemia E78.2 [place] [id number] [place] [address] 42921- 1590 May, Well woman exam Z01.419 ; History of herpes simplex infection Z86.19 ; Papanicolaou smear Z12.4 ; History of depression Z86.59 ; History of anxiety Z86.59 ; Lipoma of other specified sites D17.79 ; Hidradenitis suppurativa L73.2 ; Routine screening for STI (sexually transmitted infection) Z11.3 and Tobacco use Z72.0 [place] [address] [place] [address] 95801- 6535 May, Hematuria R31.9 ; Essential hypertension I10 ; Pure hypercholesterolemia E78.0 and Hidradenitis L73.2 [place] [id number] [place] [address] 58813- 1847 May, Upper respiratory symptom R09.89 and Allergic rhinitis J30.9 [place] [id number] [place] [address] 33468- 3400 May, [facility] [address], [place] [address]- 5288 May, [facility] [id number] [place] [address] 785838- 8106 May, Bipolar disorder, unspecified F31.9 ; Posttraumatic stress disorder F43.10 and Major depression, recurrent F33.9 [facility] [id number] [place] [address] 33746- 1914 May, [facility] [id number] [place] [address] 543148- 8926 May, [facility] [id number] [place] [address] 60264- 8585 Apr, [facility] [id number] [place] [address] 57067- 7953 Apr, [facility] [id number] [place] [address] 35578- 7820 Mar, [facility] [id number] [place] [address] 39243- 8092 Mar, [facility] [id number] [place] [address] 43251- 3191 Mar, [facility] [id number] [place] [address] 69500- 0801 18 Feb, 2015 Major depressive disorder, recurrent episode, moderate 296.32 and Post traumatic stress disorder (PTSD) 309.81 [facility] [address], [place] [address]- 9226 10 Feb, 2015 [facility] [id number] [place] [address] 378146- 7517 08 Feb, 2015 [facility] [address], [place] [address]- 0861 Jan, Cough 786.2 [facility] [id number] [place] [address] 72601- 8142 Jan, Depression, major, recurrent, moderate 296.32 and Post traumatic stress disorder (PTSD) 309.81 [facility] [address] 2935 Jan, [facility] [id number] [place] [address] 03563- 3218 Dec, [facility] [id number] [place] [address] 36272- 9653 Dec, Generalized anxiety disorder 300.02 and Depression, major, recurrent, moderate 296.32 [facility] [id number] [place] [address] 35577- 8313 Dec, [facility] [id number] [place] [address] 87951- 0080 Dec, High risk medication use V58.69 [facility] [id number] [place] [address] 25912- 8420 Dec, High risk medication use V58.69 [facility] [id number] [place] [address] 59255- 0471 Dec, [facility] [id number] [place] [address] 59199- 3501 Nov, Generalized anxiety disorder 300.02 and Major depressive disorder, recurrent episode, moderate 296.32 [facility] [id number] [place] [address] [id number] Nov, Dental examination V72.2 [facility] [id number] [place] [address] [id number] Nov, Dental examination V72.2 [facility] [address], [place] [address] 2546 Nov, [facility] [id number] [place] [address] [id number] Nov, Dental examination V72.2 [facility] [id number] [place] [address] [id number] Nov, Dental examination V72.2 [facility] [address], [place] [address]- 4486 October, Major depressive disorder, recurrent episode, moderate 296.32 and Generalized anxiety disorder 300.02 [facility] [address] [facility] [id number] [address]- 2546 October, [facility] [id number] [place] [address] 11463- 0636 October, [facility] [address] [facility] [id number] [address]- 2546 October, [facility] [id number] [place] [address] 98809- 0266 Sep, [facility] [address], [place] [address]- 7356 Sep, [facility] [id number] [place] [address] 13114- 7556 Aug, [facility] [address], [place] [address] Aug, [facility] [id number], [place] [address] Aug, [facility] [id number], [place] [address] Aug, [facility] [id number], [place] [address] Aug, [facility] [id number] [address] Aug, [facility] [id number] [address] Aug, [facility] [id number], [place] [address] 16 Jul, 2014 [facility] [id number] [address] Jul, 2014 [facility] [place] [facility] [address] [id number] [place] [address] Jul, 2014 [facility] [place] [facility] [address] [id number] [place] [address] Jul, 2014 [facility] [place] [facility] [address] [id number] [place] [address] Jul, 2014 [facility] [place] [facility] [address] [id number] [place] [address] Jul, 2014 [facility] [place] [facility] [address] [id number] [place] [address] Jul, 2014 [facility] [place] [facility] [address] [id number] [place] [address] Jul, 2014 [facility] [place] [facility] [address] [id number] [place] [address] Jul, [facility] [place] [facility] [address] [id number] [place] [address] Jun, [facility] [place] [facility] [address] [id number] [place] [address] Jun, [facility] [place] [facility] [address] [facility] [id number] [place] [address] Jun, [facility] [place] [facility] [address] [id number] [place] [address]- [address] Jun, [facility] [place] [facility] [address] [id number] [address] Jun, [facility] [place] [facility] [address] [id number] [place] [address] Jun, [facility] [place] [facility] [address] [facility] [id number] [place] [address] Jun, [facility] [place] [facility] [address] [id number] [place] [address] 49[address] Jun, [facility] [place] [facility] [address] [id number] [place] [address] 7618 Jun, [facility] [place] [facility] [address] [id number] [place] [address] 4771 Jun, [facility] [place] [facility] [address] [id number] [place] [address] 0467 Jun, [facility] [place] [facility] [address] [id number] [place] [address] 8131 Jun, [facility] [place] [facility] [address] [id number] [place] [address] 5017 Jun, [facility] [place] [facility] [address] [id number] [place] [address] 0010 Jun, [facility] [place] [facility] [address] [id number] [place] [address] 3930 Jun, [facility] [place] [facility] [address] [id number] [place] [address] 6307 Jun, [facility] [place] [facility] [address] [id number] [place] [address] 3431 Jun, [facility] [place] [facility] [address] [id number] [place] [address] 9261 Jun, [facility] [place] [facility] [address] [id number] [place] [address]- [address] Jun, [facility] [place] [facility] [address] [id number] [place] [address]- 2023 Jun, [facility] [place] [facility] [address] [id number] [place] [address]- 0065 Jun, [facility] [place] [facility] [address] [id number] [place] [address]- 7271 Jun, [facility] [place] [facility] [address] [id number] [place] [address]- 6284 Jun, [facility] [place] [facility] [address] [id number] [place] [address]- 4995 Jun, [facility] [place] [facility] [address] [id number] [place] [address]- 3304 Jun, [facility] [place] [facility] [address] [id number] [place] [address] May, [facility] [place] [facility] [address] [id number] [place] [address]- 7856 May, [facility] [place] [facility] [address] [id number] [place] [address]- 5580 May, [facility] [place] [facility] [address] [id number] [place] [address]- 3946 May, [facility] [place] [facility] [address] [id number] [place] [address]- 8675 May, [facility] [place] [facility] [address] [id number] [place] [address]- 7253 May, [facility] [place] [facility] [address] [id number] [place] [address]- 7005 May, [facility] [place] [facility] [address] [id number] [place] [address]- 7221 May, [facility] [place] [facility] [address] [id number] [place] [address]- 8202 May, [facility] [place] [facility] [address] [id number] [place] [address]- 2540 May, [facility] [place] [facility] [address] [id number] [place] [address]- 5601 May, [facility] [place] [facility] [address] [id number] [place] [address] 1867 May, [facility] [place] [facility] [address] [id number] [place] [address]- 8284 May, [facility] [place] [facility] [address] [id number] [place] [address]- 5079 May, [facility] [place] [facility] [address] [id number] [place] [address]- 1795 08 May, 2014 [facility] [place] [facility] [address] [id number] [place] [address]- 7193 May, [facility] [place] [facility] [address] [id number] [place] [address]- 8340 May, [facility] [place] [facility] [address] [id number] [place] [address]- 6068 May, [facility] [place] [facility] [address] [id number] [place] [address]- 6752 Apr, [facility] [place] [facility] [address] [id number] [place] [address]- 3868 Apr, [facility] [place] [facility] [address] [id number] [place] [address]- 1478 Apr, [facility] [place] [facility] [address] [id number] [place] [address]- 3750 Apr, [facility] [place] [facility] [address] [id number] [place] [address]- 5033 Apr, [facility] [place] [facility] [address] [id number] [place] [address]- 1842 Apr, [facility] [place] [facility] [address] [id number] [place] [address]- 0332 Apr, [facility] [place] [facility] [address] [id number] [place] [address]- 1315 Apr, [facility] [place] [facility] [address] [id number] [place] [address]- 6596 Mar, [facility] [place] [facility] [address] [id number] [place] [address]- 0120 Mar, [facility] [place] [facility] [address] [id number] [place] [address]- 7070 Feb, [facility] [place] [facility] [address] [id number] [place] [address]- 2178 Feb, [facility] [place] [facility] [address] [id number] [place] [address]- 2250 Feb, 2013 [facility] [place] [facility] [address] [id number] [place] [address]- 7505 Feb, [facility] [place] [facility] [address] [id number] [place] [address]- 2489 Feb, 2013 [facility] [place] [facility] [address] [id number] [place] [address]- 0750 Feb, 2013 [facility] [place] [facility] [address] [id number] [place] [address]- 3406 Feb, [facility] [place] [facility] [address] [id number] [place] [address]- 1158 Feb, [facility] [place] [facility] [address] [id number] [place] [address]- 5060 Feb, [facility] [place] [facility] [address] [id number] [place] [address]- 2806 Feb, [facility] [place] [facility] [address] [id number] [place] [address]- 0808 Jan, [facility] [place] [facility] [address] [id number] [place] [address]- 8961 Jan, [facility] [place] [facility] [address] [id number] [place] [address]- 0418 Jan, [facility] [place] [facility] [address] [id number] [place] [address]- 4801 Jan, [facility] [place] [facility] [address] [id number] [place] [address]- 8853 Jan, [facility] [place] [facility] [address] [id number] [place] [address]- 4192 Jan, [facility] [place] [facility] [address] [id number] [place] [address]- 4241 Jan, [facility] [place] [facility] [address] [id number] [place] [address]- 2330 Jan, [facility] [place] [facility] [address] [id number] [place] [address]- 0179 Jan, [facility] [place] [facility] [address] [id number] [place] [address]- 3288 Jan, [facility] [place] [facility] [address] [id number] [place] [address]- 9390 Jan, [facility] [place] [facility] [address] [id number] [place] [address]- 7370 Jan, [facility] [place] [facility] [address] [id number] [place] [address]- 6008 Jan, [facility] [place] [facility] [address] [id number] [place] [address]- 6190 Dec, [facility] [place] [facility] [address] [id number] [place] [address]- 4822 Dec, [facility] [place] [facility] [address] [id number] [place] [address]- 5121 Dec, [facility] [place] [facility] [address] [id number] [place] [address]- 9085 Dec, [facility] [place] [facility] [address] [id number] [place] [address]- 6750 Dec, [facility] [place] [facility] [address] [id number] [place] [address]- 8469 Dec, [facility] [place] [facility] [address] [id number] [place] [address]- 9249 Dec, [facility] [place] [facility] [address] [id number] [place] [address]- 2596 Dec, [facility] [place] [facility] [address] [id number] [place] [address]- 1980 Dec, [facility] [place] [facility] [address] [id number] [place] [address]- 3911 Dec, [facility] [place] [facility] [address] [id number] [place] [address]- 2320 Dec, [facility] [place] [facility] [address] [id number] [place] [address]- 7333 Dec, [facility] [place] [facility] [address] [id number] [place] [address]- 3767 Dec, [facility] [place] [facility] [address] [id number] [place] [address]- 1545 Dec, [facility] [place] [facility] [address] [id number] [place] [address]- 6300 Nov, [facility] [place] [facility] [address] [id number] [place] [address]- 2033 Nov, [facility] [place] [facility] [address] [id number] [place] [address]- 9351 Nov, [facility] [place] [facility] [address] [id number] [place] [address]- 6667 Nov, [facility] [place] [facility] [address] [id number] [place] [address]- 6565 Nov, [facility] [place] [facility] [address] [id number] [place] [address]- 6999 Nov, [facility] [place] [facility] [address] [id number] [place] [address]- 0545 Nov, [facility] [place] [facility] [address] [id number] [place] [address]- 6270 Nov, [facility] [place] [facility] [address] [id number] [place] [address]- 3187 October, [facility] [place] [facility] [address] [id number] [place] [address]- 9249 October, [facility] [place] [facility] [address] [id number] [place] [address]- 3542 October, [facility] [place] [facility] [address] [id number] [place] [address]- 4952 October, [facility] [address] [id number] [place] [address]- 5745 October, [facility] [place] [facility] [address] [id number] [place] [address]- 2314 October, [facility] [place] [facility] [address] [id number] [place] [address]- 7245 October, [facility] [place] [facility] [address] [id number] [place] [address]- 6454 October, [facility] [place] [facility] [address] [id number] [place] [address]- 7428 October, [facility] [place] [facility] [address] [id number] [place] [address]- 5970 October, [facility] [place] [facility] [address] [id number] [place] [address]- 6802 October, [facility] [place] [facility] [address] [id number] [place] [address]- 4258 October, [facility] [place] [facility] [address] [id number] [place] [address]- 4582 October, [facility] [place] [facility] [address] [id number] [place] [address]- 2943 October, [facility] [place] [facility] [address] [id number] [place] [address]- 1324 October, [facility] [place] [facility] [address] [id number] [place] [address]- 7677 October, [facility] [place] [facility] [address] [id number] [place] [address]- 2611 Sep, [facility] [place] [facility] [address] [id number] [place] [address]- 5341 Sep, [facility] [place] [facility] [address] [id number] [place] [address]- 9987 Sep, [facility] [place] [facility] [address] [id number] [place] [address]- 8398 Sep, [facility] [place] [facility] [address] [id number] [place] [address]- 7658 Sep, [facility] [place] [facility] [address] [id number] [place] [address]- 5357 Sep, [facility] [place] [facility] [address] [id number] [place] [address]- 5458 Sep, [facility] [place] [facility] [address] [id number] [place] [address]- 3321 Sep, [facility] [place] [facility] [address] [id number] [place] [address]- 6892 Sep, [facility] [place] [facility] [address] [id number] [place] [address]- 9407 Sep, [facility] [place] [facility] [address] [id number] [place] [address]- 4005 Sep, [facility] [place] [facility] [address] [id number] [place] [address]- 8592 Sep, [facility] [place] [facility] [address] [id number] [place] [address]- 0444 Sep, [facility] [place] [facility] [address] [id number] [place] [address]- 9954 Sep, [facility] [place] [facility] [address] [id number] [place] [address]- 1050 Sep, [facility] [place] [facility] [address] [id number] [place] [address]- 3737 Sep, [facility] [place] [facility] [address] [id number] [place] [address]- 4277 Sep, [facility] [place] [facility] [address] [id number] [place] [address]- 8795 Sep, [facility] [place] [facility] [address] [id number] [place] [address]- 1482 Sep, [facility] [place] [facility] [address] [id number] [place] [address]- 0152 Aug, [facility] [place] [facility] [address] [id number] [place] [address]- 5644 Aug, [facility] [place] [facility] [address] [id number] [place] [address]- 6201 Aug, [facility] [place] [facility] [address] [id number] [place] [address]- 2003 Aug, [facility] [place] [facility] [address] [id number] [place] [address]- 3236 Jul, [facility] [place] [facility] [address] [id number] [place] [address]- 6143 Jul, [facility] [place] [facility] [address] [id number] [place] [address]- 7640 Jul, [facility] [place] [facility] [address] [id number] [place] [address]- 2248 Jul, [facility] [place] [facility] [address] [id number] [place] [address]- 7632 Jul, [facility] [place] [facility] [address] [id number] [place] [address]- 4611 Jul, [facility] [place] [facility] [address] [id number] [place] [address]- 4281 Jul, [facility] [place] [facility] [address] [id number] [place] [address]- 5134 Jul, [facility] [place] [facility] [address] [id number] [place] [address]- 7640 Jul, [facility] [place] [facility] [address] [id number] [place] [address]- 6828 Jul, [facility] [place] [facility] [address] [id number] [place] [address]- 2818 Jul, [facility] [place] [facility] [address] [id number] [place] [address]- 5901 Jul, [facility] [address] [id number] [place] [address]- 8735 Jun, [facility] [place] [facility] [address] [id number] [place] [address]- 6079 Jun, [facility] [address] [id number] [place] [address]- 7894 Jun, [facility] [address] [id number] [place] [address]- 1195 Jun, [facility] [address] [id number] [place] [address]- 0135 Jun, [facility] [address] [id number] [place] [address]- 0007 Jun, [facility] [address] [id number] [place] [address]- 3783 May, [facility] [address] [id number] [place] [address]- 3955 May, [facility] [address] [id number] [place] [address]- 7470 Apr, [facility] [address] [id number] [place] [address]- 4768 Apr, [facility] [place] [facility] [address] [id number] [place] [address]- 9898 Apr, [facility] [address] [id number] [place] [address]- 0436 Apr, [facility] [place] [facility] [address] [id number] [place] [address]- 6598 Apr, [facility] [place] [facility] [address] [id number] [place] [address]- 0575 Apr, [facility] [place] [facility] [address] [id number] [place] [address]- 1311 17 Apr, 2013 [facility] [place] [facility] [address] [id number] [place] [address]- 8325 15 Apr, 2013 [facility] [place] [facility] [address] [id number] [place] [address]- 6814 15 Apr, 2013 [facility] [place] [facility] [address] [id number] [place] [address]- 0154 15 Apr, 2013 [facility] [place] [facility] [address] [id number] [place] [address]- 9354 15 Apr, 2013 [facility] [place] [facility] [address] [id number] [place] [address]- 6765 Apr, [facility] [place] [facility] [address] [id number] [place] [address]- 3235 Apr, [facility] [place] [facility] [address] [id number] [place] [address]- 2773 31 Mar, 2013 [facility] [place] [facility] [address] [id number] [place] [address]- 6739 31 Mar, 2013 [facility] [place] [facility] [address] [id number] [place] [address]- 7064 25 Mar, 2013 [facility] [place] [facility] [address] [id number], [place] [address]- 3833 25 Mar, 2013 [facility] [place] [facility] [address] [id number], [place] [address]- 0234 17 Mar, 2013 [facility] [place] [facility] [address] [id number], [place] [address]- 3569 17 Mar, 2013 [facility] [place] [facility] [address] [id number] [place] [address]- 2938 14 Mar, 2013 [facility] [place] [facility] [address] [id number], [place] [address]- 5551 14 Mar, 2013 [facility] [place] [facility] [address] [id number], [place] [address]- 8237 11 Mar, 2013 [facility] [place] [facility] [address] [id number] [place] [address]- 1201 11 Mar, 2013 [facility] [address] [id number] [place] [address]- 7292 02 Mar, 2013 [facility] [place] [facility] [address] [id number] [place] [address]- 2949 30 Feb, 2013 [facility] [place] [facility] [address] [id number] [place] [address]- 5544 28 Feb, 2013 [facility] [place] [facility] [address] [id number] [place] [address]- 2202 27 Feb, 2013 [facility] [place] [facility] [address] [id number] [place] [address]- 0784 27 Feb, 2013 [facility] [place] [facility] [address] [id number] [place] [address]- 3772 20 Feb, 2013 [facility] [address] [id number] [place] [address]- 1232 10 Feb, 2013 [facility] [place] [facility] [address] [id number] [place] [address]- 2163 Jan, [facility] [place] [facility] [address] [id number] [place] [address]- 2342 Jan, [facility] [place] [facility] [address] [id number] [place] [address]- 7615 Dec, [facility] [place] [facility] [address] [id number] [place] [address]- 3498 Dec, [facility] [place] [facility] [address] [id number] [place] [address]- 4668 15 Dec, 2012 [facility] [place] [facility] [address] [id number] [place] [address]- 8680 Dec, [facility] [place] [facility] [address] [id number] [place] [address]- 1145 Nov, [facility] [place] [facility] [address] [id number] [place] [address]- 4550 14 Nov, 2012 [facility] [place] [facility] [address] [id number] [place] [address]- 0805 Nov, [facility] [address] [id number] [place] [address]- 8048 October, [facility] [address] [id number] [place] [address]- 9666 October, [facility] [address] [id number] [place] [address]- 8690 October, [facility] [address] [id number] [place] [address]- 2241 October, [facility] [address] [id number] [place] [address]- 6850 October, [facility] [address] [id number] [place] [address]- 5840 Sep, [facility] [address] [id number] [place] [address]- 2121 Sep, [facility] [address] [id number] [place] [address]- 1715 Aug, [facility] [address] [id number] [place] [address]- 0421 Aug, [facility] [address] [id number] [place] [address]- 4826 Aug, [facility] [address] [id number] [place] [address]- 5891 Aug, [facility] [address] [id number] [place] [address]- 9234 Aug, [facility] [place] [facility] [address] [id number] [place] [address]- 3743 Jul, [facility] [place] [facility] [address] [id number] [place] [address] Jul, [facility] [place] [facility] [address] [id number] [place] [address] 06 Jul, 2012 [facility] [address] [id number] [place] [address] Jul, [facility] [address] [id number] [place] [address] Jun, [facility] [address] [id number] [place] [address] Jun, [facility] [address] [id number] [place] [address] Jun, [facility] [address] [id number] [place] [address] Jun, [facility] [address] [id number] [place] [address] Jun, [facility] [address] [id number] [place] [address] Jun, [facility] [address] [id number] [place] [address] Jun, [facility] [address] [id number] [place] [address] Jun, [facility] [address] [id number] [place] [address] Jun, [facility] [address] [id number] [place] [address] Jun, [facility] [address] [id number] [place] [address] Jun, [facility] [address] [id number] [place] [address] May, [facility] [place] [facility] [address] [id number] [place] [address] May, [facility] [address] [id number] [place] [address] Apr, [facility] [place] [facility] [address] [id number] [place] [address]- [address] Apr, [facility] [place] [facility] [address] [id number] [place] [address] Mar, 2011 [facility] [place] [facility] [address] [id number] [place] [address] Mar, 2011 [facility] [place] [facility] [address] [id number] [place] [address] 2546 Mar, [facility] [place] [facility] [address] [id number] [place] [address]- [address] Mar, [facility] [place] [facility] [address] [id number] [place] [address] Mar, [facility] [place] [facility] [address] [id number] [place] [address] Mar, [facility] [place] [facility] [address] [id number] [place] [address] Mar, [facility] [place] [facility] [address] [id number] [place] [address]- [address] Mar, [facility] [place] [facility] [address] [id number] [place] [address] Mar, [facility] [place] [facility] [address] [id number] [place] [address]- [address] Feb, [facility] [place] [facility] [address] [id number] [place] [address] Jan, [facility] [place] [facility] [address] [id number] [place] [address]- [address] Jan, [facility] [place] [facility] [address] [id number] [place] [address] Dec, [facility] [place] [facility] [address] [id number] [place] [address]- [address] Dec, [facility] [place] [facility] [address] [id number] [place] [address] Dec, [facility] [place] [facility] [address] [id number] [place] [address] 47[address] Nov, [facility] [place] [facility] [address] [id number] [place] [address] Nov, [facility] [place] [facility] [address] [id number] [place] [address] Nov, [facility] [place] [facility] [address] [id number] [place] [address] Nov, [facility] [place] [facility] [address] [id number] [place] [address] October, [facility] [place] [facility] [address] [id number] [place] [address] October, [facility] [place] [facility] [address] [id number] [place] [address]- [address] Sep, [facility] [place] [facility] [address] [id number] [place] [address] Sep, [facility] [place] [facility] [address] [id number] [place] [address]- [address] Aug, [facility] [place] [facility] [address] [id number] [place] [address] Jul, [facility] [place] [facility] [address] [id number] [place] [address] Jul, [facility] [place] [facility] [address] [id number] [place] [address]- [address] Jul, [facility] [place] [facility] [address] [id number] [place] [address] Jul, [facility] [place] [facility] [address] [id number] [place] [address]- [address] Jun, [facility] [place] [facility] [address] [id number] [place] [address] May, [facility] [place] [facility] [address] [id number] [place] [address]- [address] 15 May, 2011 [facility] [place] [facility] [address] [id number] [place] [address]- [address]36 15 May, 2011 [facility] [place] [facility] [address] [id number] [place] [address]- [address] 13 May, 2011 [facility] [place] [facility] [address] [id number] [place] [address]- [address] 08 May, 2011 [facility] [place] [facility] [address] [id number] [place] [address]- [address]656 14 Apr, 2011 [facility] [place] [facility] [address] [id number] [place] [address] 1187 14 Apr, 2011 [facility] [place] [facility] [address] [id number] [place] [address]- [address] 14 Apr, 2011 [facility] [place] [facility] [address] [id number] [place] [address]- 6[address] 07 Apr, 2011 [facility] [place] [facility] [address] [id number] [place] [address]- [address]66 02 Apr, 2011 [facility] [place] [facility] [address] [id number] [place] [address]207 26 Mar, 2011 [facility] [place] [facility] [address] [id number] [place] [address]- [address] 25 Mar, 2011 [facility] [place] [facility] [address] [id number] [place] [address]79 14 Mar, 2011 [facility] [place] [facility] [address] [id number] [place] [address]- 0[address] 14 Mar, 2011 [facility] [place] [facility] [address] [id number] [place] [address]- 73[address] 13 Mar, 2011 [facility] [place] [facility] [address] [id number] [place] [address]- 6[address] 11 Mar, 2011 [facility] [place] [facility] [address] [id number] [place] [address]- [address] Mar, [facility] [address] [facility] [id number] [address] Mar, [facility] [id number] [place] [address] Feb, [facility] [id number], [place] [address] May, [facility] [id number] [address] [address] May, [facility] [address] [id number], [place] [address] May, [facility] [id number], [place] [address] Apr, [facility] [id number], [place] [address] Mar, IMMUNIZATIONS No Known Immunizations SOCIAL HISTORY Never Assessed REASON FOR VISIT f/rose Ross RN, update contract PLAN OF CARE Activity Details Follow Up 2 Months Reason: VITAL SIGNS Height 69 in 2017-08-30 Weight 250.9 lbs 2017-08-30 BMI 37.05 kg/m2 2017-08-30 MEDICATIONS Medication Instructions Dosage Frequency Start Date End Date Duration Status Seroquel 50 MG Orally three times a day as needed for anxiety 1 tablet Mar, Active Hydrochlorothiazide 25 MG Orally Once a day 1/2 tablet 24h 180 days Active ProAir HFA 108 (90 Base) MCG/ACT Inhalation every 4 hrs 2 puffs as needed 4h Jun, 1 month Active Effexor XR 75 MG Orally Once a day 1 capsule every morning for one week then take 2 cap every morning 24h Aug, 30 day(s) Active Neurontin 300 MG Orally two times a day 3 capsules 12h Aug, 30 days Active Seroquel 300 MG Orally every bedtime 1 tablet May, Active Xanax 0.5 MG Orally daily (part of tapering dose) 1 tablets Apr, 30 days Active Lisinopril 40 MG TAKE ONE TABLET BY MOUTH ONCE DAILY 30 Active Acyclovir 400 MG TAKE ONE TABLET BY MOUTH TWICE DAILY 90 Active Ibuprofen 800 MG TAKE ONE TABLET BY MOUTH THREE TIMES DAILY WITH FOOD OR MILK 30 Active Omeprazole 20 MG TAKE ONE CAPSULE BY MOUTH ONCE DAILY 90 Active Quetiapine Fumarate 300 MG TAKE ONE (1) TABLET BY MOUTH ONCE DAILY AT BEDTIME 30 Active Sumatriptan Succinate 100 MG TAKE ONE TABLET BY MOUTH ONCE DAILY NEEDED MAY REPEAT IN 2 HOURS IF HEADACHE REOCCURS 14 Active Alprazolam 2 MG Orally Twice a [...]
--- OUTSIDE RECORDS SUMMARY | 2018-08-19 09:33 | XMS REPORT ---
Author Author SOFIA WENDI Organization [facility] Address [address] [place] [address] Care Team Providers Care Residential Treatment Staff Name Role Phone SOFIAMARIA EUGENIA ELIZABETHHANY Unavailable PROBLEMS Type Condition ICD9-CM Code [id number] Code Onset Dates Condition Status SNOMED Code Problem Mixed hyperlipidemia E78.2 Active 056138076 Problem Vitamin D deficiency E55.9 Active 38932727 Problem Essential hypertension I10 Active 36739057 Problem Posttraumatic stress disorder F43.10 Active 83068393 Problem Mild intermittent asthma without complication J45.20 Active 709860909 Problem Generalized anxiety disorder F41.1 Active 70222151 Problem Gastroesophageal reflux disease, esophagitis presence not specified K21.9 Active 067243061 Problem Bipolar disorder, current episode mixed, moderate F31.62 Active 955124218 Problem Low back pain with sciatica, sciatica laterality unspecified, unspecified back pain laterality, unspecified chronicity M54.40 Active 397804790 Problem Panic disorder F41.0 Active 581011910 Problem Concussion without loss of consciousness, initial encounter S06.0X0A Active 62145528 Problem Nausea R11.0 Active 567975557 Problem Anxiety F41.9 Active 97807913 Problem Hematuria R31.9 Active 02136627 Problem Bipolar disorder F31.9 Active 12058220 Problem Multiple fractures T07.XXXA Active 540821677 Problem Acute right-sided low back pain with right-sided sciatica M54.41 Active 43585013 Problem Hospital discharge follow-up Z09 Active 656976871 Problem Hot flashes R23.2 Active 665071209 Problem History of IBS Z87.19 Active 03248506481622 Problem Breast tenderness N64.4 Active 87890123 Problem Primary insomnia F51.01 Active 471515126 Problem Hidradenitis suppurativa L73.2 Active 90966459 Problem Tobacco use Z72.0 Active 339443167 Problem Localized edema R60.0 Active 007843029 Problem Depression F32.9 Active 28037788 Problem Genital herpes simplex, unspecified site A60.00 Active 58457328 ALLERGIES No Information ENCOUNTERS Encounter Location Date Diagnosis [facility] [id number] [place] [address] 43164- 5753 Jan, [facility] [id number] [place] [address] 42307- 1896 Dec, Panic disorder F41.0 ; Bipolar disorder, current episode mixed, moderate F31.62 and Generalized anxiety disorder F41.1 [facility] [id number] [place] [address] 11703- 3172 Dec, Panic disorder F41.0 [facility] [id number] [place] [address] 16632- 8840 Nov, Panic disorder F41.0 [facility] [id number] [place] [address] 72611- 1931 Nov, Panic disorder F41.0 ; Generalized anxiety disorder F41.1 and Bipolar disorder, current episode mixed, moderate F31.62 [facility] [id number] [place] [address] 59901- 0516 Nov, Panic disorder F41.0 [facility] [id number] [place] [address] 27490- 2972 Nov, Panic disorder F41.0 [facility] [id number] [place] [address] 02266- 1183 October, Panic disorder F41.0 [facility] [id number] [place] [address] 74588- 5286 October, Panic disorder F41.0 ; Generalized anxiety disorder F41.1 and Bipolar disorder, current episode mixed, moderate F31.62 [facility] [id number] [place] [address] 46466- 6399 October, Panic disorder F41.0 [facility] [id number] [place] [address] 01221- 3716 Sep, Hospital discharge follow-up Z09 ; Concussion without loss of consciousness, initial encounter S06.0X0A and Nausea R11.0 [facility] [address] 33080- 2919 Sep, [facility] [address] 10469- 7273 Sep, Panic disorder F41.0 [facility] [address] 08323- 5960 Sep, [facility] [address] 41014- 1509 Sep, Well woman exam with routine gynecological exam Z01.419 ; Multiple fractures T07.XXXA ; Hot flashes R23.2 ; Essential hypertension I10 ; Mixed hyperlipidemia E78.2 ; Genital herpes simplex, unspecified site A60.00 ; Alkaline phosphatase elevation R74.8 ; Dysuria R30.0 ; Vitamin D deficiency E55.9 ; Tobacco use Z72.0 ; High risk sexual behavior Z72.51 and Encounter for immunization Z23 [facility] [address] 12886- 4503 Aug, Panic disorder F41.0 ; Generalized anxiety disorder F41.1 and Bipolar disorder, current episode mixed, moderate F31.62 [facility] [address] 61997- 2430 Aug, [facility] [address] 21693- 2119 Jul, Panic disorder F41.0 ; Generalized anxiety disorder F41.1 and Bipolar disorder, current episode mixed, moderate F31.62 [facility] [address] 26342- 8962 Jul, [facility] [address] 02964- 4029 Jul, [facility] [address] 65273- 9117 Jul, Effusion, right knee M25.461 ; Acute pain of right knee M25.561 and Acute pain of left knee M25.562 [facility] [id number] [place] [address] 01186- 7072 Jun, Bipolar disorder, current episode mixed, moderate F31.62 ; Generalized anxiety disorder F41.1 and Panic disorder F41.0 [facility] [id number] [place] [address] 17630- 4651 May, Bipolar disorder, current episode mixed, moderate F31.62 ; Generalized anxiety disorder F41.1 and Panic disorder F41.0 [facility] [id number] [place] [address] 98216- 4838 May, Bipolar disorder, current episode mixed, moderate F31.62 [facility] [id number] [place] [address] 51617- 9556 May, Bipolar disorder, current episode mixed, moderate F31.62 [facility] [id number] [place] [address] 43319- 5304 Apr, Bipolar disorder, current episode mixed, moderate F31.62 ; Generalized anxiety disorder F41.1 and Panic disorder F41.0 [facility] [address] [place] [address] 57593- 9605 Mar, [facility] [id number] [place] [address] 29243- 6267 Mar, Bipolar disorder, current episode mixed, moderate F31.62 ; Generalized anxiety disorder F41.1 and Panic disorder F41.0 [facility] [id number] [place] [address] 25981- 9831 Feb, [facility] [id number] [place] [address] 59776- 9864 Feb, Posttraumatic stress disorder F43.10 [facility] [id number] [place] [address] 92943- 4300 Feb, Gastroesophageal reflux disease, esophagitis presence not specified K21.9 [facility] [id number] [place] [address] 83233- 1280 Feb, [facility] [id number] [place] [address] 13303 2541 06 Feb, 2017 Knee pain, right anterior M25.561 [facility] [address] 28748- 4784 Feb, HSV (herpes simplex virus) infection B00.9 [facility] [id number] [place] [address] 55311- 8660 Feb, [facility] [id number] [place] [address] 07266- 3512 Jan, [facility] [id number] [place] [address] 71482- 9317 Jan, Posttraumatic stress disorder F43.10 [facility] [id number] [place] [address] 28259- 8242 Jan, Foot pain, left M79.672 [facility] [id number] [place] [address] 98499- 6540 Jan, [facility] [id number] [place] [address] 76270- 8060 Jan, Lumbar radiculopathy, acute M54.16 ; Muscle spasm of back M62.830 and Right hip pain M25.551 [facility] [id number] [place] [address] 14339- 2549 Jan, Lumbar radiculopathy, acute M54.16 [facility] [id number] [place] [address] 65158- 0512 Jan, [facility] [id number] [place] [address] 02277- 254 Jan, [facility] [id number] [place] [address] 44129- 8955 Dec, Lumbar radiculopathy, acute M54.16 ; Acute renal insufficiency N28.9 and Muscle spasm of back M62.830 [facility] [id number] [place] [address] 09520- 7098 Dec, [facility] [id number] [place] [address] 39201- 6747 Dec, [facility] [id number] [place] [address] 69812- 8199 Dec, [facility] [id number] [place] [address] 53596 -9907 Dec, Low back pain with sciatica, sciatica laterality unspecified, unspecified back pain laterality, unspecified chronicity M54.40 and Acute right-sided low back pain with right-sided sciatica M54.41 [facility] [id number] [place] [address] 33600- 9918 Dec, Posttraumatic stress disorder F43.10 [facility] [id number] [place] [address] 06781- 4518 Dec, [facility] [id number] [place] [address] 61906- 2241 Dec, Pain in right thigh M79.651 and Acute right-sided low back pain without sciatica M54.5 [facility] [address] [place] [address] 88770- 2837 Dec, Posttraumatic stress disorder F43.10 and Major depressive disorder, recurrent episode with anxious distress F33.9 [facility] [address] [place] [address] 77613 -3685 Dec, [facility] [id number] [place] [address] 57040- 5106 Nov, [facility] [id number] [place] [address] 67547- 5454 October, [facility] [id number] [address]- 6807 17 Oct, 2016 [facility] [id number] [place] [address] 67843- 2920 October, Knee pain, right anterior M25.561 [facility] [id number] [place] [address] 14127- 8925 October, Knee pain, right anterior M25.561 [facility] [id number] [place] [address] 75179- 5182 October, [facility] [id number] [place] [address] 04250- 0488 October, [facility] [id number] [place] [address] 69224- 9075 October, [facility] [id number] [place] [address] 28092 -3429 Sep, [facility] [id number] [place] [address] 37317- 1460 Sep, [facility] [id number] [place] [address] 42718- 0076 Sep, Essential hypertension I10 [facility] [id number] [place] [address] 34435- 6149 11 Sep, 2016 Essential hypertension I10 [facility] [id number] [place] [address] 89197- 8990 Sep, [facility] [address] [place] [address] 36055- 8276 10 Sep, 2016 Posttraumatic stress disorder F43.10 and Major depressive disorder, recurrent episode with anxious distress F33.9 [facility] [id number] [place] [address] 54164- 4731 07 Sep, 2016 Multiple fractures T14.8 ; Alkaline phosphatase elevation R74.8 and Vitamin D deficiency E55.9 [facility] [id number] [place] [address] 08400- 0612 Sep, [facility] [id number] [place] [address] 69233- 9858 Sep, Elevated serum creatinine R79.89 ; Fracture of foot, left, closed, initial encounter S92.902A and Alkaline phosphatase elevation R74.8 [facility] [id number] [place] [address] 57574- 6835 Sep, Elevated serum creatinine R79.89 and Essential hypertension I10 [facility] [id number] [place] [address] 41989- 1288 Sep, [facility] [address] 16561- 9356 Aug, Gastroesophageal reflux disease, esophagitis presence not specified K21.9 [facility] [id number] [place] [address] 77333- 5505 Aug, Essential hypertension I10 ; Fracture of foot, left, closed , initial encounter S92.902A and Alkaline phosphatase elevation R74.8 [facility] [id number] [place] [address] 91939- 1674 17 Jul, 2016 Genital herpes simplex, unspecified site A60.00 [facility] [id number] [place] [address] 48444- 9669 Jul, Essential hypertension I10 [facility] [id number] [place] [address] 26061- 1547 Jun, Cough R05 and Wheezing R06.2 [facility] [id number] [place] [address] 75372- 8763 Jun, Essential hypertension I10 [facility] [id number] [place] [address] 50767- 3567 May, Essential hypertension I10 [facility] [id number] [place] [address] 48120- 9738 14 May, 2016 Posttraumatic stress disorder F43.10 and Major depressive disorder, recurrent episode with anxious distress F33.9 [facility] [address] [place] [address] 90460- 6400 Apr, [facility] [id number] [place] [address] 88202- 9694 Apr, [facility] [id number] [place] [address] 45390- 7871 Apr, [facility] [address] 40794- 1007 Mar, [facility] [id number] [place] [address] 96131- 5617 Feb, [facility] [address] 32275- 0130 Jan, [facility] [id number] [place] [address] 22146- 0966 Jan, Essential hypertension I10 ; Mixed hyperlipidemia E78.2 ; Gastroesophageal reflux disease, esophagitis presence not specified K21.9 ; Mild intermittent asthma without complication J45.20 ; Hidradenitis suppurativa L73.2 ; Migraine without status migrainosus, not intractable, unspecified migraine type G43.909 ; Genital herpes simplex, unspecified site A60.00 and Closed traumatic minimally displaced fracture of metatarsal bone of left foot S92.302A [facility] [id number] [place] [address] 12058 -7576 Jan, Localized edema R60.0 [facility] [id number] [place] [address] 94934- 2713 Dec, [facility] [id number] [place] [address] 38037- 9141 Dec, [facility] [id number] [place] [address] 78555- 4132 Dec, [facility] [id number] [place] [address] 91113 -9574 Dec, Cough R05 ; Tobacco dependence F17.200 and Costochondritis , acute M94.0 [facility] [id number] [place] [address] 99338- 3608 Dec, Major depression, recurrent F33.9 ; Bipolar disorder, unspecified F31.9 and Posttraumatic stress disorder F43.10 [facility] [address] [address]- 6952 Nov, [facility] [id number] [place] [address] 01397- 3102 Nov, [facility] [address] [place] [address] 19685- 2553 October, [facility] [id number] [place] [address] 42546 -0242 October, Acute upper respiratory infection, unspecified J06.9 [facility] [id number] [place] [address] 50498- 5022 October, [facility] [id number] [place] [address] 15139- 7392 Sep, Bipolar affective disorder, remission status unspecified F31.9 and Post-traumatic stress disorder F43.10 [facility] [address] [place] [address] 24226- 3493 Sep, Bipolar disorder, unspecified F31.9 ; Posttraumatic stress disorder F43.10 and Major depression, recurrent F33.9 [facility] [address] [place] [address] 69062- 4485 Aug, Edema R60.9 ; Fatigue R53.83 and Polydipsia R63.1 [facility] [id number] [place] [address] 90223- 7356 Aug, [facility] [id number] [place] [address] 13775- 8337 Aug, [facility] [id number] [place] [address] 43474- 2951 Jul, [facility] [address] [address]- 6609 Jul, [facility] [id number] [place] [address] 39756- 2294 Jun, [facility] [id number] [place] [address] 66180- 9652 Jun, [facility] [address] 98942- 7628 Jun, [facility] [id number] [place] [address] 06709- 3683 Jun, [facility] [address] 22409- 0556 May, Mixed hyperlipidemia E78.[address] 83689- 3644 May, Well woman exam Z01.419 ; History of herpes simplex infection Z86.19 ; Papanicolaou smear Z12.4 ; History of depression Z86.59 ; History of anxiety Z86.59 ; Lipoma of other specified sites D17.79 ; Hidradenitis suppurativa L73.2 ; Routine screening for STI (sexually transmitted infection) Z11.3 and Tobacco use Z72.0 [id number] [place] [address] 77528- 6346 May, Hematuria R31.9 ; Essential hypertension I10 ; Pure hypercholesterolemia E78.0 and Hidradenitis L73.2 [facility] [address] [place] [address] 49054- 8714 May, Upper respiratory symptom R09.89 and Allergic rhinitis J30.9 [address] [id number] [place] [address] 93389- 9681 May, [facility] [id number] [place] [address] 65334- 6175 May, [address]- 3295 May, Bipolar disorder, unspecified F31.9 ; Posttraumatic stress disorder F43.10 and Major depression, recurrent F33.9 [facility] [address] [address]- 8246 May, [facility] [address] [address]- 0646 May, [facility] [id number] [place] [address] 631734- 9764 Apr, [facility] [id number] [place] [address] 19424- 1881 Apr, [facility] [id number] [place] [address] 907009- 4392 Mar, [facility] [id number] [place] [address] 475875- 6963 Mar, [facility] [address] [address]- 1431 Mar, [facility] [id number] [place] [address] 961311- 2451 18 Feb, 2015 Major depressive disorder, recurrent episode, moderate 296.32 and Post traumatic stress disorder (PTSD) 309.81 [facility] [address] [address]- 0351 Feb, [facility] [address] [address]- 6022 08 Feb, 2015 [facility] [address]- 1698 Jan, Cough 786.2 [facility] [id number] [place] [address] 69398- 6456 Jan, Depression, major, recurrent, moderate 296.32 and Post traumatic stress disorder (PTSD) 309.81 [facility] [id number] [place] [address] 995110- 5761 Jan, [facility] [address] [address]- 2757 Dec, [facility] [address] [place] [address] 27424- 0086 Dec, Generalized anxiety disorder 300.02 and Depression, major, recurrent, moderate 296.32 [facility] [address] [address]- 9847 Dec, [facility] [address] [place] [address] 55801- 8108 Dec, High risk medication use V58.69 [facility] [id number] [place] [address] 17332- 4956 Dec, High risk medication use V58.69 [facility] [address] [place] [address] 45603- 0786 Dec, [facility] [address] [place] [address] 94495- 6377 Nov, Generalized anxiety disorder 300.02 and Major depressive disorder, recurrent episode, moderate 296.32 [facility] [address] [place] [address] [id number] Nov, Dental examination V72.2 [facility] [address] [place] [address] [id number] Nov, Dental examination V72.2 [facility] [id number] [place] [address] 31903- 2546 Nov, [facility] [address] [place] [address] [id number] Nov, Dental examination V72.2 [facility] [id number] [place] [address] [id number] Nov, Dental examination V72.2 [facility] [address] [address]- 2546 October, Major depressive disorder, recurrent episode, moderate 296.32 and Generalized anxiety disorder 300.02 [facility] [address] [facility] [id number] [place] [address]- 1402 October, [facility] [address] [facility] [id number] [place] [address]- 3316 October, [facility] [id number] [place] [address]- 7473 October, [facility] [address] [facility] [id number] [address] Sep, [facility] [address] [facility] [facility] [id number] [place] [address] Sep, [facility] [address] [id number] [address] Aug, [facility] [id number] [address] Aug, [facility] [address] [facility] [id number], [place] [address] Aug, [facility] [address] [id number] [address] Aug, [facility] [address] [id number] [address] Aug, [facility] [id number], [place] [address] Aug, [facility] [place] [facility] [address] [facility] [id number], [place] [address] Aug, [facility] [place] [facility] [address] [facility] [facility] [facility] [id number], [place] [address] Jul, [facility] [place] [facility] [address] [facility] [id number], [place] [address] Jul, [facility] [place] [facility] [address] [id number] [address] Jul, [facility] [id number] [place] [address] 16 Jul, 2014 [facility] [place] [facility] [address] [id number] [place] [address] Jul, 2014 [facility] [place] [facility] [address] [id number] [place] [address] Jul, 2014 [facility] [place] [facility] [address] [id number] [place] [address] Jul, 2014 [facility] [place] [facility] [address] [id number] [place] [address] Jul, [facility] [place] [facility] [address] [id number] [place] [address] Jul, [facility] [place] [facility] [address] [id number] [place] [address] Jun, [facility] [place] [facility] [address] [id number] [place] [address] Jun, [facility] [facility] [address] [id number] [place] [address] Jun, [facility] [place] [facility] [address] [id number] [place] [address] Jun, [facility] [place] [facility] [address] [id number] [place] [address]- 3911 Jun, [facility] [place] [facility] [address] [id number] [place] [address]- 8948 Jun, [facility] [place] [facility] [address] [id number] [place] [address]- 1770 Jun, [facility] [place] [facility] [address] [id number] [place] [address]- 3799 Jun, [facility] [place] [facility] [address] [id number] [place] [address] 2542 Jun, [facility] [place] [facility] [address] [id number] [place] [address]- 4199 Jun, [facility] [place] [facility] [address] [id number] [place] [address]- 8140 Jun, [facility] [place] [facility] [address] [id number] [place] [address]- 7018 Jun, [facility] [place] [facility] [address] [id number] [place] [address]- 4017 Jun, [facility] [place] [facility] [address] [id number] [place] [address]- 3869 Jun, [facility] [place] [facility] [address] [id number] [place] [address]- 6978 Jun, [facility] [place] [facility] [address] [id number] [place] [address]- 5396 Jun, [facility] [place] [address] [id number] [place] [address]- 7336 Jun, [facility] [place] [facility] [address] [id number], [place] [address]- 1516 Jun, [facility] [place] [address] [id number] [place] [address]- 1983 Jun, [facility] [address] [id number], [place] [address]- 6913 Jun, [facility] [place] [address] [id number], [place] [address]- 6833 Jun, [facility] [place] [address] [id number], [place] [address]- 6155 Jun, [facility] [place] [address] [id number], [place] [address]- 7420 Jun, [facility] [address] [id number], [place] [address]- 7518 Jun, [facility] [address] [id number], [place] [address]- 1838 Jun, [facility] [place] [facility] [address] [id number] [place] [address]- 9999 30 May, 2014 [facility] [place] [facility] [address] [id number] [place] [address]- 2146 May, [facility] [place] [facility] [address] [id number] [place] [address]- 6956 May, [facility] [place] [facility] [address] [id number] [place] [address]- 9746 May, [facility] [place] [facility] [address] [id number] [place] [address]- 2766 May, [facility] [place] [facility] [address] [id number] [place] [address]- 7553 May, [facility] [place] [facility] [address] [id number] [place] [address]- 6112 May, [facility] [place] [address] [id number] [place] [address]- 4098 May, [facility] [place] [address] [id number] [place] [address]- 3555 May, [facility] [place] [facility] [address] [id number] [place] [address]- 3852 May, [facility] [address] [id number] [place] [address]- 1303 May, [facility] [place] [facility] [address] [id number] [place] [address]- 3376 May, [facility] [place] [address] [id number] [place] [address]- 3418 May, [facility] [address] [id number] [place] [address]- 1426 May, [facility] [address] [id number] [place] [address]- 8214 May, [facility] [place] [address] [id number] [place] [address]- 7213 May, [facility] [facility] [address] [id number] [place] [address]- 1112 May, [facility] [place] [facility] [address] [id number] [place] 4098 May, [facility] [place] [facility] [address] [id number] [place] [address]- 4683 Apr, [facility] [address] [id number] [place] [address]- 6686 Apr, [facility] [address] [id number] [place] [address]- 1476 Apr, [facility] [address] [id number] [place] [address]- 4861 Apr, [facility] [address] [id number] [place] [address]- 8368 Apr, [facility] [address] [id number] [place] [address]- 0661 Apr, [facility] [address] [id number] [place] [address]- 6606 Apr, [facility] [address] [id number] [place] [address]- 9602 Apr, [facility] [address] [id number] [place] [address]- 2285 Mar, [facility] [address] [id number] [place] [address]- 1327 Mar, [facility] [address] [id number] [place] [address]- 0055 Feb, [facility] [address] [id number] [place] [address]- 8623 Feb, [facility] [address] [id number] [place] 9937 Feb, [facility] [place] [address] [id number] [place] [address]- 8527 Feb, [facility] [address] [id number] [place] [address]- 1210 Feb, [facility] [address] [id number] [place] [address]- 9222 Feb, [facility] [address] [id number] [place] [address]- 3480 Feb, [facility] [address] [id number] [place] [address]- 1864 Feb, [facility] [address] [id number] [place] [address]- 8676 Feb, [facility] [address] [id number] [place] [address]- 4489 Feb, [facility] [address] [id number] [place] [address]- 9649 Jan, [facility] [address] [id number] [place] [address]- 4009 Jan, [facility] [address] [id number] [place] [address]- 2149 Jan, [facility] [address] [id number] [place] [address]- 8488 Jan, [facility] [address] [id number] [place] [address]- 3411 Jan, [facility] [address] [id number] [place] [address]- 9558 Jan, [facility] [address] [id number] [place] [address]- 4861 Jan, [facility] [address] [id number] [place] [address]- 0059 Jan, [facility] [address] [id number] [place] [address]- 8410 Jan, [facility] [address] [id number] [place] [address]- 0700 Jan, [facility] [address] [id number] [place] [address]- 0071 Jan, [facility] [address] [id number] [place] [address]- 9099 Jan, [facility] [address] [id number] [place] [address]- 4343 Jan, [facility] [address] [id number] [place] [address]- 2205 Dec, [facility] [address] [id number] [place] [address]- 0372 Dec, [facility] [address] [id number] [place] [address]- 6330 Dec, [facility] [address] [id number] [place] [address]- 8302 Dec, [facility] [address] [id number] [place] [address]- 4632 Dec, [facility] [address] [id number] [place] [address]- 4040 Dec, [facility] [place] [place] [facility] [address] [id number] [place] [address]- 4047 Dec, [facility] [address] [id number] [place] [address]- 6484 Dec, [facility] [address] [id number] [place] [address]- 1441 Dec, [facility] [address] [id number] [place] [address]- 6406 Dec, [facility] [address] [id number] [place] [address]- 0801 Dec, [facility] [address] [id number] [place] [address]- 9384 Dec, [facility] [address] [id number] [place] [address]- 9881 Dec, [facility] [address] [id number] [place] [address]- 7973 Dec, [facility] [address] [id number] [place] [address]- 9140 Nov, [facility] [address] [id number] [place] [address]- 1000 Nov, [facility] [address] [id number] [place] [address]- 4494 Nov, [facility] [address] [id number] [place] [address]- 6508 Nov, [facility] [address] [id number] [place] [address]- 9266 Nov, [facility] [address] [id number] [place] [address]- 8050 Nov, [facility] [address] [id number] [place] [address]- 4960 Nov, [facility] [address] [id number] [place] [address]- 0111 Nov, [facility] [address] [id number] [place] [address]- 5717 October, [facility] [address] [id number] [place] [address]- 4495 October, [facility] [address] [id number] [place] [address]- 2432 October, [facility] [address] [id number] [place] [address]- 9668 October, [facility] [address] [id number] [place] [address]- 9790 October, [facility] [address] [id number] [place] [address]- 4810 October, [facility] [address] [id number] [place] [address]- 7394 October, [facility] [address] [id number] [place] [address]- 2562 October, [facility] [address] [id number] [place] [address]- 9457 October, [facility] [address] [id number] [place] [address]- 4443 October, [facility] [address] [id number] [place] [address]- 4613 October, [facility] [address] [id number] [place] [address]- 7176 October, [facility] [address] [id number] [place] [address]- 0879 October, [facility] [address] [id number] [place] [address]- 8569 October, [facility] [address] [id number] [place] [address]- 4694 October, [facility] [address] [id number] [place] [address]- 3347 October, [facility] [address] [id number] [place] [address]- 9044 Sep, [facility] [address] [id number] [place] [address]- 6615 Sep, [facility] [address] [id number] [place] [address]- 1061 Sep, [facility] [address] [id number] [place] [address]- 6766 Sep, [facility] [address] [id number] [place] [address]- 1097 Sep, [facility] [address] [id number] [place] [address]- 3462 Sep, [facility] [address] [id number] [place] [address]- 4452 Sep, [facility] [address] [id number] [place] [address]- 2323 Sep, [facility] [address] [id number] [place] [address]- 7374 Sep, [facility] [address] [id number] [place] [address]- 5014 Sep, [facility] [address] [id number] [place] [address]- 1994 Sep, [facility] [address] [id number] [place] [address]- 2730 Sep, [facility] [address] [id number] [place] [address]- 0073 Sep, [facility] [address] [id number] [place] [address]- 4504 Sep, [facility] [address] [id number] [place] [address]- 3083 Sep, [facility] [address] [id number] [place] [address]- 2141 Sep, [facility] [address] [id number] [place] [address]- 3077 Sep, [facility] [address] [id number] [place] [address]- 1879 Sep, [facility] [address] [id number] [place] [address]- 1524 Sep, [facility] [address] [id number] [place] [address]- 7857 Aug, [facility] [address] [id number] [place] [address]- 6466 Aug, [facility] [address] [id number] [place] [address]- 0711 Aug, [facility] [address] [id number] [place] [address]- 2272 Aug, [facility] [address] [facility] [id number] [place] [address]- 0512 Jul, [facility] [address] [id number] [place] [address]- 2509 Jul, [facility] [address] [id number] [place] [address]- 7362 Jul, [facility] [place] [facility] [address] [facility] [id number] [place] [address]- 8400 Jul, [facility] [place] [address] [facility] [id number] [place] [address]- 5409 Jul, [facility] [place] [facility] [address] [facility] [id number] [place] [address]- 8588 Jul, [facility] [place] [facility] [address] [facility] [id number] [place] [address]- 1722 Jul, [facility] [place] [address] [facility] [id number] [place] [address]- 4575 Jul, [facility] [place] [address] [facility] [id number] [place] [address]- 9961 Jul, [facility] [place] [address] [facility] [id number] [place] [address]- 3133 Jul, [facility] [place] [facility] [address] [id number] [place] [address]- 6132 Jul, [facility] [place] [address] [facility] [id number] [place] [address]- 6538 Jul, [facility] [place] [facility] [address] [facility] [id number] [place] [address]- 5916 Jun, [facility] [address] [id number] [place] [address]- 8601 Jun, [facility] [address] [id number] [place] [address]- 3950 Jun, [facility] [address] [id number] [place] [address]- 5595 Jun, [facility] [address] [id number] [place] [address]- 4126 Jun, [facility] [address] [id number] [place] [address]- 6245 Jun, [facility] [address] [id number] [place] [address]- 6519 May, [facility] [address] [id number] [place] [address]- 9716 May, [facility] [address] [id number] [place] [address]- 0239 Apr, [facility] [address] [id number] [place] [address]- 2863 Apr, [facility] [address] [id number] [place] [address]- 4143 Apr, [facility] [address] [id number] [place] [address]- 4782 Apr, [facility] [place] [facility] [address] [id number], [place] [address]- 8499 Apr, [facility] [place] [facility] [address] [id number] [place] [address]- 7536 18 Apr, 2013 [facility] [place] [facility] [address] [id number] [place] [address]- 0693 17 Apr, 2013 [facility] [place] [facility] [address] [id number] [place] [address]- 5291 15 Apr, 2013 [facility] [place] [facility] [address] [id number], [place] [address]- 3226 15 Apr, 2013 [facility] [place] [facility] [address] [id number] [place] [address]- 9433 15 Apr, 2013 [facility] [place] [facility] [address] [id number], [place] [address]- 7722 15 Apr, 2013 [facility] [place] [facility] [address] [id number] [place] [address]- 9109 Apr, [facility] [place] [facility] [address] [id number], [place] [address]- 2033 Apr, [facility] [place] [facility] [address] [id number] [place] [address]- 7064 31 Mar, 2013 [facility] [place] [facility] [address] [id number] [place] [address]- 1381 31 Mar, 2013 [facility] [place] [facility] [address] [id number], [place] [address]- 5939 25 Mar, 2013 [facility] [place] [facility] [address] [id number], [place] [address]- 9328 25 Mar, 2013 [facility] [place] [facility] [address] [id number], [place] [address]- 6140 17 Mar, 2013 [facility] [place] [facility] [address] [id number], [place] [address]- 8608 17 Mar, 2013 [facility] [place] [facility] [address] [id number], [place] [address]- 9873 14 Mar, 2013 [facility] [place] [facility] [address] [id number], [place] [address]- 4572 14 Mar, 2013 [facility] [place] [facility] [address] [id number], [place] [address]- 8609 11 Mar, 2013 [facility] [place] [facility] [address] [id number], [place] [address]- 8302 11 Mar, 2013 [facility] [place] [facility] [address] [id number], [place] [address]- 2269 02 Mar, 2013 [facility] [place] [facility] [address] [id number] [place] [address]- 4406 30 Feb, 2012 [facility] [address] [id number] [place] [address]- 5316 28 Feb, 2012 [facility] [place] [facility] [address] [id number] [place] [address]- 9676 27 Feb, 2012 [facility] [address] [id number] [place] [address]- 0116 27 Feb, 2012 [facility] [address] [id number] [place] [address]- 5831 20 Feb, 2012 [facility] [address] [id number] [place] [address]- 3063 10 Feb, 2013 [facility] [address] [id number] [place] [address]- 8971 Jan, [facility] [address] [id number] [place] [address]- 6663 Jan, [facility] [address] [id number] [place] [address]- 0687 Dec, [facility] [address] [id number] [place] [address]- 1057 Dec, [facility] [address] [id number] [place] [address]- 2502 Dec, [facility] [place] [place] [facility] [address] [id number] [place] [address]- 2327 Dec, [facility] [address] [id number] [place] [address]- 4750 Nov, [facility] [place] [facility] [address] [id number] [place] [address]- 1484 Nov, [facility] [place] [facility] [address] [id number] [place] [address]- 5636 Nov, [facility] [place] [facility] [address] [id number] [place] [address]- 8501 October, [facility] [address] [id number] [place] [address]- 7491 October, [facility] [place] [facility] [address] [id number] [place] [address]- 6147 October, [facility] [address] [id number] [place] [address]- 0769 October, [facility] [place] [facility] [address] [id number] [place] [address]- 4168 October, [facility] [address] [id number] [place] [address] Sep, [facility] [place] [facility] [address] [id number] [place] [address] Sep, [facility] [address] [id number] [place] [address] Aug, [facility] [address] [id number] [place] [address] Aug, [facility] [place] [facility] [address] [id number] [place] [address] Aug, [facility] [place] [facility] [address] [id number] [place] [address] Aug, [facility] [place] [facility] [address] [id number] [place] [address] Aug, [facility] [place] [facility] [address] [id number] [place] [address] Jul, [facility] [place] [facility] [address] [id number] [place] [address] Jul, [facility] [place] [facility] [address] [id number] [place] [address] Jul, [facility] [place] [facility] [address] [id number] [place] [address] Jul, [facility] [place] [facility] [address] [id number] [place] [address] 31 Jun, 2012 [facility] [address] [id number] [place] [address] 29 Jun, 2012 [facility] [place] [facility] [address] [id number] [place] [address]- [address] 23 Jun, 2012 [facility] [address] [id number] [place] [address] Jun, [facility] [address] [id number] [place] [address]- [address]71 11 Jun, 2012 [facility] [address] [id number] [place] [address] Jun, [facility] [address] [id number] [place] [address] Jun, [facility] [address] [id number] [place] [address]- 9[address] Jun, [facility] [address] [id number] [place] [address] Jun, [facility] [address] [id number] [place] [address]- 16[address] Jun, [facility] [address] [id number] [place] [address] 04 Jun, 2012 [facility] [address] [id number] [place] [address] May, [facility] [address] [id number] [place] [address] May, [facility] [place] [facility] [address] [id number] [place] [address] Apr, [facility] [place] [facility] [address] [id number] [place] [address]- [address] Apr, [facility] [address] [id number] [place] [address] Mar, [facility] [place] [facility] [address] [id number] [place] [address] Mar, 2011 [facility] [place] [facility] [address] [id number] [place] [address] 0[address] Mar, [facility] [place] [facility] [address] [id number] [place] [address] Mar, [facility] [place] [facility] [address] [id number] [place] [address] 2549 Mar, [facility] [place] [facility] [address] [id number] [place] [address] 25[address] Mar, [facility] [place] [facility] [address] [id number] [place] [address]- [address] Mar, [facility] [place] [facility] [address] [id number] [place] [address] Mar, [facility] [place] [facility] [address] [id number] [place] [address] Mar, [facility] [place] [facility] [address] [id number] [place] [address] 365[address] Feb, [facility] [place] [facility] [address] [id number] [place] [address] Jan, [facility] [place] [facility] [address] [id number] [place] [address]- [address] Jan, [facility] [place] [facility] [address] [id number], [place] [address]- [address] Dec, [facility] [place] [facility] [address] [id number] [place] [address] Dec, [facility] [place] [facility] [address] [id number] [place] [address]- [address]46 Dec, [facility] [place] [facility] [address] [id number] [place] [address] Nov, [facility] [place] [facility] [address] [id number], [place] [address] Nov, [facility] [address] [id number] [place] [address] 8768 Nov, [facility] [place] [facility] [address] [id number] [place] [address] 27[address] Nov, [facility] [address] [id number] [place] [address] 277[address] October, [facility] [address] [id number] [place] [address] 8[address] October, [facility] [address] [id number] [place] [address] 3074 Sep, [facility] [address] [id number] [place] [address] 0[address] Sep, [facility] [address] [facility] [id number] [place] [address]994 Aug, [facility] [place] [facility] [address] [id number] [place] [address]- 69[address] Jul, [facility] [address] [facility] [id number] [place] [address] Jul, [facility] [address] [facility] [id number] [place] [address]282 Jul, [facility] [address] [id number] [place] [address] 3[address] Jul, [facility] [place] [facility] [address] [id number] [place] [address] 3560 Jun, [facility] [place] [facility] [address] [id number] [place] [address]- 2484 May, [facility] [place] [facility] [address] [id number] [place] [address] May, [facility] [place] [facility] [address] [facility] [id number] [place] [address] May, [facility] [place] [facility] [address] [id number] [place] [address]- [address]125 13 May, 2011 [facility] [place] [facility] [address] [id number] [place] [address]- [address]387 08 May, 2011 [facility] [place] [facility] [address] [id number] [place] [address]- 4812 14 Apr, 2011 [facility] [place] [facility] [address] [id number] [place] [address]- 6246 14 Apr, 2011 [facility] [place] [facility] [address] [id number] [place] [address]- 7039 14 Apr, 2011 [facility] [place] [facility] [address] [id number] [place] [address]- 7199 07 Apr, 2011 [facility] [place] [facility] [address] [id number] [place] [address]- 0936 02 Apr, 2011 [facility] [place] [facility] [address] [id number] [place] [address]- 9790 26 Mar, 2011 [facility] [place] [facility] [address] [id number] [place] [address]- 8999 25 Mar, 2011 [facility] [place] [facility] [address] [id number] [place] [address]- 3515 14 Mar, 2011 [facility] [place] [facility] [address] [id number] [place] [address]- 3656 14 Mar, 2011 [facility] [place] [facility] [address] [id number] [place] [address]- 4435 13 Mar, 2011 [facility] [place] [facility] [address] [id number] [place] [address]- 2238 11 Mar, 2011 [facility] [place] [facility] [address] [id number] [place] [address]- 8549 11 Mar, 2011 [facility] [place] [facility] [address] [id number] [place] [address] 11 Mar, 2011 [facility] [place] [facility] [address] [id number] [place] [address] Feb, [facility] [address] [facility] [id number] [place] [address] May, [facility] [address] [id number] [address] May, [facility] [address] [id number] [address] May, [facility] [address] [id number], [place] [address] Apr, [facility] [address] [facility] [id number] [address] Mar, IMMUNIZATIONS No Known Immunizations SOCIAL HISTORY Never Assessed REASON FOR VISIT Refill Request PLAN OF CARE VITAL SIGNS MEDICATIONS Unknown [...]
--- OUTSIDE RECORDS SUMMARY | 2018-08-19 09:34 | XMS REPORT ---
Author Author CURTIS GLENN Organization [facility] Address [address] [place] [address] Care Team Providers Care Newsperson Name Role Phone HARSHSALVADOR GLENN Unavailable PROBLEMS Type Condition ICD9-CM Code IIJ68-GG Code Onset Dates Condition Status SNOMED Code Problem Mixed hyperlipidemia E78.2 Active 764817495 Problem Vitamin D deficiency E55.9 Active 24209157 Problem Essential hypertension I10 Active 88640295 Problem Posttraumatic stress disorder F43.10 Active 09326463 Problem Mild intermittent asthma without complication J45.20 Active 430046462 Problem Generalized anxiety disorder F41.1 Active 56222943 Problem Gastroesophageal reflux disease, esophagitis presence not specified K21.9 Active 079444946 Problem Bipolar disorder, current episode mixed, moderate F31.62 Active 320677825 Problem Low back pain with sciatica, sciatica laterality unspecified, unspecified back pain laterality, unspecified chronicity M54.40 Active 748781977 Problem Panic disorder F41.0 Active 839266342 Problem Concussion without loss of consciousness, initial encounter S06.0X0A Active 33542646 Problem Nausea R11.0 Active 516950856 Problem Anxiety F41.9 Active 52714543 Problem Hematuria R31.9 Active 30885142 Problem Bipolar disorder F31.9 Active 08944677 Problem Multiple fractures T07.XXXA Active 697333519 Problem Acute right-sided low back pain with right-sided sciatica M54.41 Active 74942216 Problem Hospital discharge follow-up Z09 Active 000734192 Problem Hot flashes R23.2 Active 687080070 Problem History of IBS Z87.19 Active 79357801042848 Problem Breast tenderness N64.4 Active 01381097 Problem Primary insomnia F51.01 Active 100963439 Problem Hidradenitis suppurativa L73.2 Active 57845065 Problem Tobacco use Z72.0 Active 514351267 Problem Localized edema R60.0 Active 711516300 Problem Depression F32.9 Active 99506527 Problem Genital herpes simplex, unspecified site A60.00 Active 19347627 ALLERGIES No Information ENCOUNTERS Encounter Location Date Diagnosis [facility] [id number] [place] [address] 21663- 6123 Dec, [place] [id number] [place] [address] 78820- 5941 Dec, Panic disorder F41.0 [place] [id number] [place] [address] 45226- 7585 Nov, Panic disorder F41.0 [place] [id number] [place] [address] 91857- 0959 Nov, Panic disorder F41.0 ; Generalized anxiety disorder F41.1 and Bipolar disorder, current episode mixed, moderate F31.62 [place] [id number] [place] [address] 87649- 5016 Nov, Panic disorder F41.0 [place] [id number] [place] [address] 38096- 3877 Nov, Panic disorder F41.0 [place] [id number] [place] [address] 54101- 0080 October, Panic disorder F41.0 [place] [id number] [place] [address] 15671- 6784 October, Panic disorder F41.0 ; Generalized anxiety disorder F41.1 and Bipolar disorder, current episode mixed, moderate F31.62 [place] [id number] [place] [address] 69235- 9791 October, Panic disorder F41.0 [place] [id number] [place] [address] 84658- 2639 Sep, Hospital discharge follow-up Z09 ; Concussion without loss of consciousness, initial encounter S06.0X0A and Nausea R11.0 [place] [id number] [place] [address] 26632- 0435 Sep, [place] [id number] [place] [address] 16922- 2357 Sep, Panic disorder F41.0 [place] [id number] [place] [address] 53035- 8929 Sep, [place] [id number] [place] [address] 43926- 2815 Sep, Well woman exam with routine gynecological exam Z01.419 ; Multiple fractures T07.XXXA ; Hot flashes R23.2 ; Essential hypertension I10 ; Mixed hyperlipidemia E78.2 ; Genital herpes simplex, unspecified site A60.00 ; Alkaline phosphatase elevation R74.8 ; Dysuria R30.0 ; Vitamin D deficiency E55.9 ; Tobacco use Z72.0 ; High risk sexual behavior Z72.51 and Encounter for immunization Z23 [place] [id number] [place] [address] 97786- 9813 Aug, Panic disorder F41.0 ; Generalized anxiety disorder F41.1 and Bipolar disorder, current episode mixed, moderate F31.62 [place] [id number] [place] [address] 98538- 7271 Aug, [place] [id number] [place] [address] 46116- 0470 Jul, Panic disorder F41.0 ; Generalized anxiety disorder F41.1 and Bipolar disorder, current episode mixed, moderate F31.62 [place] [id number] [place] [address] 32915- 8529 Jul, [place] [id number] [place] [address] 78088- 9090 Jul, [place] [id number] [place] [address] 40754- 7515 Jul, Effusion, right knee M25.461 ; Acute pain of right knee M25.561 and Acute pain of left knee M25.562 [place] [id number] [place] [address] 28931- 5169 Jun, Bipolar disorder, current episode mixed, moderate F31.62 ; Generalized anxiety disorder F41.1 and Panic disorder F41.0 [facility] [id number] [place] [address] 36628- 9738 May, Bipolar disorder, current episode mixed, moderate F31.62 ; Generalized anxiety disorder F41.1 and Panic disorder F41.0 [facility] [id number] [place] [address] 61590- 1490 May, Bipolar disorder, current episode mixed, moderate F31.62 [place] [id number] [place] [address] 343551- 8850 May, Bipolar disorder, current episode mixed, moderate F31.62 [place] [id number] [place] [address] 55545- 7125 Apr, Bipolar disorder, current episode mixed, moderate F31.62 ; Generalized anxiety disorder F41.1 and Panic disorder F41.0 [facility] [id number] [place] [address] 74671- 9274 Mar, [facility] [id number] [place] [address] 37254- 6755 Mar, Bipolar disorder, current episode mixed, moderate F31.62 ; Generalized anxiety disorder F41.1 and Panic disorder F41.0 [place] [id number] [place] [address] 04420- 7589 Feb, [facility] [id number] [place] [address] 71167- 3339 Feb, Posttraumatic stress disorder F43.10 [facility] [id number] [place] [address] 13624- 9065 Feb, Gastroesophageal reflux disease, esophagitis presence not specified K21.9 [facility] [id number] [place] [address] 54994- 9241 13 Feb, 2017 [facility] [address] [place] [address]- 6101 Feb, Knee pain, right anterior M25.561 [facility] [address] 45605- 7658 Feb, HSV (herpes simplex virus) infection B00.9 [facility] [id number] [place] [address] 73000- 1616 Feb, [facility] [address] 03376- 9887 Jan, [facility] [id number] [place] [address] 44391- 9459 Jan, Posttraumatic stress disorder F43.10 [facility] [id number] [place] [address] 35092- 0904 Jan, Foot pain, left M79.672 [place] [address] 04038- 2495 Jan, [facility] [id number] [place] [address] 82331- 5479 Jan, Lumbar radiculopathy, acute M54.16 ; Muscle spasm of back M62.830 and Right hip pain M25.551 [place] [id number] [place] [address] 25196- 8406 Jan, Lumbar radiculopathy, acute M54.16 [facility] [id number] [place] [address] 82681- 3626 Jan, [facility] [id number] [place] [address] 04238- 9827 Jan, [facility] [id number] [place] [address] 44890- 3188 Dec, Lumbar radiculopathy, acute M54.16 ; Acute renal insufficiency N28.9 and Muscle spasm of back M62.830 [facility] [id number] [place] [address] 39364- 7621 Dec, [facility] [address] [place] [address]- 3326 Dec, [facility] [id number] [place] [address] 32442- 0129 Dec, [facility] [address] [place] [address] Dec, Low back pain with sciatica, sciatica laterality unspecified, unspecified back pain laterality, unspecified chronicity M54.40 and Acute right-sided low back pain with right-sided sciatica M54.41 [facility] [id number] [place] [address] 35480- 3459 Dec, Posttraumatic stress disorder F43.10 [facility] [id number] [place] [address] 14900- 0842 Dec, [facility] [id number] [place] [address] 45344- 3919 Dec, Pain in right thigh M79.651 and Acute right-sided low back pain without sciatica M54.5 [facility] [id number] [place] [address] 82668- 3175 Dec, Posttraumatic stress disorder F43.10 and Major depressive disorder, recurrent episode with anxious distress F33.9 [facility] [address] [place] [address] Dec, [facility] [address] [place] [address]- 6864 Nov, [facility] [address] [place] [address]- 7948 October, [facility] [id number] [place] [address] 29617- 1019 October, [facility] [address] [place] [address]- 9791 October, Knee pain, right anterior M25.561 [facility] [address] [place] [address]- 1826 October, Knee pain, right anterior M25.561 [facility] [id number] [place] [address] 02754- 1563 October, [facility] [id number] [place] [address] 39297- 3133 October, [facility] [id number] [place] [address] 37815- 7213 October, [facility] [id number] [place] [address] 25507 -0719 Sep, [facility] [id number] [place] [address] 79990- 2074 Sep, [facility] [id number] [place] [address] 85846- 7265 Sep, Essential hypertension I10 [facility] [id number] [place] [address] 66308- 1380 11 Sep, 2016 Essential hypertension I10 [facility] [id number] [place] [address] 77784- 0279 Sep, [facility] [id number] [place] [address] 92515- 7831 Sep, Posttraumatic stress disorder F43.10 and Major depressive disorder, recurrent episode with anxious distress F33.9 [facility] [id number] [place] [address] 57939- 9344 Sep, Multiple fractures T14.8 ; Alkaline phosphatase elevation R74.8 and Vitamin D deficiency E55.9 [facility] [id number] [place] [address] 86011- 0684 Sep, [facility] [id number] [place] [address] 06132- 4310 Sep, Elevated serum creatinine R79.89 ; Fracture of foot, left, closed, initial encounter S92.902A and Alkaline phosphatase elevation R74.8 [facility] [id number] [place] [address] 02358- 3980 Sep, Elevated serum creatinine R79.89 and Essential hypertension I10 [place] [id number] [place] [address] 13589- 3686 Sep, [place] [address] 21437- 6580 Aug, Gastroesophageal reflux disease, esophagitis presence not specified K21.9 [place] [id number] [place] [address] 36650- 4727 Aug, Essential hypertension I10 ; Fracture of foot, left, closed , initial encounter S92.902A and Alkaline phosphatase elevation R74.8 [place] [id number] [place] [address] 35800- 9623 17 Jul, 2016 Genital herpes simplex, unspecified site A60.00 [place] [address] 73265- 1709 Jul, Essential hypertension I10 [place] [address] 82739- 6571 Jun, Cough R05 and Wheezing R06.2 [place] [id number] [place] [address] 29951- 6206 Jun, Essential hypertension I10 [place] [id number] [place] [address] 21015- 3323 May, Essential hypertension I10 [place] [id number] [place] [address] 39632- 1773 May, Posttraumatic stress disorder F43.10 and Major depressive disorder, recurrent episode with anxious distress F33.9 [place] [id number] [place] [address] 74497- 2035 Apr, [place] [address] 97445- 3404 Apr, [facility] [id number] [place] [address] 36372- 0524 Apr, [facility] [id number] [place] [address] 72496- 7353 Mar, [facility] [id number] [place] [address] 28908- 3664 Feb, [facility] [address] 84052- 1283 Jan, [facility] [id number] [place] [address] 00612- 3981 Jan, Essential hypertension I10 ; Mixed hyperlipidemia E78.2 ; Gastroesophageal reflux disease, esophagitis presence not specified K21.9 ; Mild intermittent asthma without complication J45.20 ; Hidradenitis suppurativa L73.2 ; Migraine without status migrainosus, not intractable, unspecified migraine type G43.909 ; Genital herpes simplex, unspecified site A60.00 and Closed traumatic minimally displaced fracture of metatarsal bone of left foot S92.302A [facility] [id number] [place] [address] 49718 -8342 Jan, Localized edema R60.0 [facility] [id number] [place] [address] 86963- 6483 Dec, [facility] [id number] [place] [address] 33623- 6593 Dec, [facility] [id number] [place] [address] 27804- 1206 Dec, [facility] [id number] [place] [address] 16326 -8374 Dec, Cough R05 ; Tobacco dependence F17.200 and Costochondritis , acute M94.0 [facility] [id number] [place] [address] 28233- 2730 Dec, Major depression, recurrent F33.9 ; Bipolar disorder, unspecified F31.9 and Posttraumatic stress disorder F43.10 [facility] [address], [place] [address]- 8424 Nov, [facility] [id number] [place] [address] 63113- 7653 Nov, [facility] [id number] [place] [address] 62482- 9095 October, [facility] [id number] [place] [address] 57121 -2224 October, Acute upper respiratory infection, unspecified J06.9 [facility] [id number] [place] [address] 35675- 4308 October, [facility] [id number] [place] [address] 56823- 3682 Sep, Bipolar affective disorder, remission status unspecified F31.9 and Post-traumatic stress disorder F43.10 [facility] [id number] [place] [address] 10520- 1816 Sep, Bipolar disorder, unspecified F31.9 ; Posttraumatic stress disorder F43.10 and Major depression, recurrent F33.9 [facility] [id number] [place] [address] 10123- 9404 16 Aug, 2015 Edema R60.9 ; Fatigue R53.83 and Polydipsia R63.1 [facility] [id number] [place] [address] 22077- 8060 Aug, [facility] [id number] [place] [address] 52595- 3377 Aug, [facility] [id number] [place] [address] 60720- 7472 Jul, [facility] [id number] [place] [address] 42088- 3059 Jul, [facility] [id number] [place] [address] 76387- 7027 Jun, [place] [id number] [place] [address] 81450- 9953 Jun, [place] [id number] [place] [address] 55800- 7517 Jun, [place] [id number] [place] [address] 46463- 8025 Jun, [place] [id number] [place] [address] 44740- 8177 May, Mixed hyperlipidemia E78.2 [place] [id number] [place] [address] 65896- 4947 May, Well woman exam Z01.419 ; History of herpes simplex infection Z86.19 ; Papanicolaou smear Z12.4 ; History of depression Z86.59 ; History of anxiety Z86.59 ; Lipoma of other specified sites D17.79 ; Hidradenitis suppurativa L73.2 ; Routine screening for STI (sexually transmitted infection) Z11.3 and Tobacco use Z72.0 [place] [id number] [place] [address] 10830- 5403 May, Hematuria R31.9 ; Essential hypertension I10 ; Pure hypercholesterolemia E78.0 and Hidradenitis L73.2 [place] [id number] [place] [address] 21622- 5499 May, Upper respiratory symptom R09.89 and Allergic rhinitis J30.9 [place] [id number] [place] [address] 91911- 9434 May, [place] [id number] [place] [address] 70793- 5579 May, [place] [id number] [place] [address] 84420- 3050 May, Bipolar disorder, unspecified F31.9 ; Posttraumatic stress disorder F43.10 and Major depression, recurrent F33.9 [place] [id number] [place] [address] 86286- 0436 May, [facility] [id number] [place] [address] 34859- 7076 May, [facility] [id number] [place] [address] 94651- 7896 Apr, [facility] [id number] [place] [address] 98381- 2395 Apr, [facility] [id number] [place] [address] 65512- 7206 Mar, [facility] [id number] [place] [address] 78366- 8194 Mar, [facility] [id number] [place] [address] 070818- 9945 Mar, [facility] [id number] [place] [address] 542407- 2664 Feb, Major depressive disorder, recurrent episode, moderate 296.32 and Post traumatic stress disorder (PTSD) 309.81 [facility] [id number] [place] [address] 944187- 4875 Feb, [facility] [id number] [place] [address] 457496- 7781 Feb, [facility] [id number] [place] [address] 20918- 1230 Jan, Cough 786.2 [facility] [id number] [place] [address] 120212- 6118 Jan, Depression, major, recurrent, moderate 296.32 and Post traumatic stress disorder (PTSD) 309.81 [facility] [id number] [place] [address] 57385- 6836 Jan, [facility] [id number] [place] [address] 02675- 3807 Dec, [facility] [id number] [place] [address] 37008- 3156 Dec, Generalized anxiety disorder 300.02 and Depression, major, recurrent, moderate 296.32 [facility] [id number] [place] [address] 50263- 8890 Dec, [facility] [id number] [place] [address] 19512- 3760 Dec, High risk medication use V58.69 [facility] [id number] [place] [address] 07049- 3934 Dec, High risk medication use V58.69 [facility] [id number] [place] [address] 77503- 3295 Dec, [facility] [id number] [place] [address] 03843- 0301 Nov, Generalized anxiety disorder 300.02 and Major depressive disorder, recurrent episode, moderate 296.32 [facility] [id number] [place] [address] [id number] Nov, Dental examination V72.2 [facility] [id number] [place] [address] [id number] Nov, Dental examination V72.2 [facility] [id number] [place] [address] 77860- 7613 Nov, [facility] [id number] [place] [address] [id number] Nov, Dental examination V72.2 [facility] [id number] [place] [address] [id number] Nov, Dental examination V72.2 [facility] [id number] [place] [id number] October, Major depressive disorder, recurrent episode, moderate 296.32 and Generalized anxiety disorder 300.02 [facility] [id number] [address] October, [facility] [id number] [place] [id number] October, [facility] [place] [facility] [address] [id number] [place] [address] October, [facility] [place] [facility] [address] [id number] [place] [address] Sep, [facility] [place] [facility] [address] [id number] [place] [address] Sep, [facility] [place] [facility] [address] [id number] [place] [address] Aug, [facility] [place] [facility] [address] [id number] [place] [address] Aug, [facility] [place] [facility] [address] [id number] [place] [address] Aug, [facility] [place] [facility] [address] [id number] [place] [address] Aug, [facility] [place] [facility] [address] [id number] [place] [address] Aug, [facility] [place] [facility] [address] [id number] [place] [address] Aug, [facility] [place] [facility] [address] [facility] [id number] [place] [address] Aug, [facility] [place] [facility] [address] [id number] [place] [address] Jul, 2014 [facility] [place] [facility] [address] [id number] [place] [address] Jul, [facility] [place] [facility] [address] [id number] [place] [address] 1149 Jul, [facility] [place] [facility] [address] [id number] [place] [address] 1234 Jul, [facility] [place] [facility] [address] [facility] [id number] [place] [address] 7069 Jul, [facility] [place] [facility] [address] [id number] [place] [address]119 Jul, [facility] [place] [facility] [address] [id number] [place] [address] 9125 Jul, [facility] [place] [facility] [address] [id number] [place] [address] 5612 Jul, [facility] [place] [facility] [address] [id number] [place] [address]- 1602 Jul, [facility] [place] [facility] [address] [id number] [place] [address]- 1006 Jun, [facility] [place] [facility] [address] [id number] [place] [address] 3841 Jun, [facility] [place] [facility] [address] [id number] [place] [address] 4549 Jun, [facility] [place] [facility] [address] [id number] [place] [address]- 0471 Jun, [facility] [place] [facility] [address] [id number] [place] [address]- 0827 Jun, [facility] [place] [facility] [address] [id number] [place] [address]- 5272 Jun, [facility] [place] [facility] [address] [id number] [place] [address]- 0409 Jun, [facility] [place] [facility] [address] [id number] [place] [address]- 5404 Jun, [facility] [place] [facility] [address] [id number] [place] [address]- 2236 Jun, [facility] [place] [facility] [address] [id number] [place] [address]- 0048 Jun, [facility] [place] [facility] [address] [id number] [place] [address]- 4766 Jun, [facility] [place] [facility] [address] [id number], [place] [address] 60[address] Jun, [facility] [place] [facility] [address] [id number] [place] [address]- 8824 Jun, [facility] [place] [facility] [address] [id number] [place] [address]- 2402 Jun, [facility] [place] [facility] [address] [id number] [place] [address]- 7608 Jun, [facility] [place] [facility] [address] [id number] [place] [address]- 5981 Jun, [facility] [place] [facility] [address] [id number] [place] [address]- 5731 Jun, [facility] [place] [facility] [address] [id number] [place] [address]- 5774 Jun, [facility] [place] [facility] [address] [id number] [place] [address]- 8766 Jun, [facility] [place] [facility] [address] [id number] [place] [address]- 9797 Jun, [facility] [place] [facility] [address] [id number] [place] [address]- 0448 Jun, [facility] [place] [facility] [address] [id number] [place] [address]- 1599 Jun, [facility] [place] [facility] [address] [id number], [place] [address] Jun, [facility] [place] [facility] [address] [id number] [place] [address]- 8080 Jun, [facility] [place] [facility] [address] [id number] [place] [address]- 8572 Jun, [facility] [place] [facility] [address] [id number] [place] [address] May, [facility] [place] [facility] [address] [id number] [place] [address]- 4853 May, [facility] [place] [facility] [address] [id number] [place] [address]- 5596 May, [facility] [place] [facility] [address] [id number] [place] [address]- 7066 May, [facility] [place] [facility] [address] [id number] [place] [address] May, [facility] [place] [facility] [address] [id number] [place] [address]- 9296 May, [facility] [place] [facility] [address] [id number] [place] [address] May, [facility] [place] [facility] [address] [id number] [place] May, [facility] [place] [facility] [address] [id number] [place] [address]- 7618 May, [facility] [place] [facility] [address] [id number] [place] [address]- 1072 May, [facility] [place] [facility] [address] [id number] [place] [address]- 9697 May, [facility] [place] [facility] [address] [id number] [place] [address]- 5629 May, [facility] [place] [facility] [address] [id number] [place] [address]- 2975 May, [facility] [place] [facility] [address] [id number] [place] [address]- 7084 May, [facility] [place] [facility] [address] [id number] [place] [address]- 2628 May, [facility] [place] [facility] [address] [id number] [place] [address]- 5064 May, [facility] [place] [facility] [address] [id number] [place] [address]- 4036 May, [facility] [place] [facility] [address] [id number] [place] [address]- 1186 May, [facility] [place] [facility] [address] [id number] [place] [address]- 0505 Apr, [facility] [place] [facility] [address] [id number] [place] [address]- 6248 Apr, [facility] [place] [facility] [address] [id number] [place] [address]- 0527 Apr, [facility] [place] [facility] [address] [id number] [place] [address]- 1609 Apr, [facility] [place] [facility] [address] [id number] [place] [address]- 6121 Apr, [facility] [place] [facility] [address] [id number] [place] [address]- 6996 Apr, [facility] [place] [facility] [address] [id number] [place] [address]- 3652 Apr, [facility] [place] [facility] [address] [id number] [place] [address]- 4337 Apr, [facility] [place] [facility] [address] [id number] [place] [address]- 0191 Mar, [facility] [place] [facility] [address] [id number] [place] [address]- 2169 Mar, [facility] [place] [facility] [address] [id number], [place] [address]- 1117 Feb, [facility] [place] [facility] [address] [id number], [place] [address]- 9099 Feb, [facility] [place] [facility] [address] [id number] [place] [address]- 7448 Feb, [facility] [place] [facility] [address] [id number] [place] [address]- 2617 Feb, [facility] [place] [facility] [address] [id number] [place] [address]- 8963 Feb, [facility] [place] [facility] [address] [id number] [place] [address]- 6663 12 Feb, 2014 [facility] [place] [facility] [address] [id number] [place] [address]- 7864 10 Feb, 2014 [facility] [place] [facility] [address] [id number] [place] [address]- 4343 Feb, [facility] [place] [facility] [address] [id number] [place] [address]- 7765 08 Feb, 2014 [facility] [place] [facility] [address] [id number] [place] [address]- 2379 Feb, [facility] [place] [facility] [address] [id number] [place] [address]- 9585 Jan, [facility] [place] [facility] [address] [id number] [place] [address]- 7484 Jan, [facility] [place] [facility] [address] [id number] [place] [address]- 8742 Jan, [facility] [place] [facility] [address] [id number] [place] [address]- 4972 Jan, [facility] [place] [facility] [address] [id number] [place] [address]- 4090 Jan, [facility] [place] [facility] [address] [id number] [place] [address]- 3684 Jan, [facility] [place] [facility] [address] [id number] [place] [address]- 2411 Jan, [facility] [place] [facility] [address] [id number] [place] [address]- 3061 Jan, [facility] [place] [facility] [address] [id number] [place] [address]- 0559 Jan, [facility] [place] [facility] [address] [id number] [place] [address]- 4912 Jan, [facility] [place] [facility] [address] [id number] [place] [address]- 6335 Jan, [facility] [place] [facility] [address] [id number] [place] [address]- 6280 Jan, [facility] [place] [facility] [address] [id number] [place] [address]- 5235 Jan, [facility] [place] [facility] [address] [id number] [place] [address]- 0743 Dec, [facility] [place] [facility] [address] [id number] [place] [address]- 3913 Dec, [facility] [place] [facility] [address] [id number] [place] [address]- 8716 Dec, [facility] [place] [facility] [address] [id number] [place] [address]- 1480 Dec, [facility] [place] [facility] [address] [id number] [place] [address]- 5840 Dec, [facility] [place] [facility] [address] [id number] [place] [address]- 5687 Dec, [facility] [place] [facility] [address] [id number] [place] [address]- 7178 Dec, [facility] [place] [facility] [address] [id number] [place] [address]- 3870 Dec, [facility] [place] [facility] [address] [id number] [place] [address]- 2471 Dec, [facility] [place] [facility] [address] [id number] [place] [address]- 9953 Dec, [facility] [place] [facility] [address] [id number] [place] [address]- 4379 Dec, [facility] [place] [facility] [address] [id number] [place] [address]- 4354 Dec, [facility] [place] [facility] [address] [id number] [place] Dec, [facility] [place] [facility] [address] [id number] [place] [address]- 5661 Dec, [facility] [place] [facility] [address] [id number] [place] [address]- 5351 Nov, [facility] [place] [facility] [address] [id number] [place] [address]- 5708 Nov, [facility] [place] [facility] [address] [id number] [place] [address]- 1167 Nov, [facility] [place] [facility] [address] [id number] [place] [address]- 1475 Nov, [facility] [place] [facility] [address] [id number] [place] [address]- 9201 Nov, [facility] [place] [facility] [address] [id number] [place] [address]- 5996 Nov, [facility] [place] [facility] [address] [id number] [place] [address]- 4901 Nov, [facility] [place] [facility] [address] [id number] [place] [address]- 6503 Nov, [facility] [place] [facility] [address] [id number] [place] [address]- 1414 October, [facility] [place] [facility] [address] [id number] [place] [address]- 9683 October, [facility] [place] [facility] [address] [id number] [place] [address]- 5993 October, [facility] [place] [facility] [address] [id number] [place] [address]- 7226 October, [facility] [place] [facility] [address] [id number] [place] [address]- 5289 October, [facility] [place] [facility] [address] [id number] [place] [address]- 6548 October, [facility] [place] [facility] [address] [id number] [place] [address]- 5535 October, [facility] [place] [facility] [address] [id number] [place] [address]- 2233 October, [facility] [address] [id number] [place] [address]- 8373 October, [facility] [address] [id number] [place] [address]- 2806 October, [facility] [address] [id number] [place] [address]- 2033 October, [facility] [address] [id number] [place] [address]- 7671 October, [facility] [address] [id number] [place] [address]- 3297 October, [facility] [address] [id number] [place] [address]- 3448 October, [facility] [address] [id number] [place] [address]- 8710 October, [facility] [address] [id number] [place] [address]- 6581 October, [facility] [address] [id number] [place] [address]- 5542 Sep, [facility] [address] [id number] [place] [address]- 9099 Sep, [facility] [address] [id number] [place] [address]- 4566 Sep, [facility] [address] [id number] [place] [address]- 1115 Sep, [facility] [place] [facility] [address] [id number] [place] [address]- 3948 Sep, [facility] [place] [facility] [address] [id number] [place] [address]- 1632 Sep, [facility] [place] [facility] [address] [id number] [place] [address]- 5193 Sep, [facility] [place] [facility] [address] [id number] [place] [address]- 2723 Sep, [facility] [place] [facility] [address] [id number] [place] [address]- 3009 Sep, [facility] [place] [facility] [address] [id number] [place] [address]- 5297 Sep, [facility] [place] [facility] [address] [id number] [place] [address]- 3775 Sep, [facility] [place] [facility] [address] [id number] [place] [address]- 4147 Sep, [facility] [place] [facility] [address] [id number] [place] [address]- 4537 Sep, [facility] [place] [facility] [address] [id number] [place] [address]- 5108 Sep, [facility] [place] [facility] [address] [id number] [place] [address]- 3649 Sep, [facility] [place] [facility] [address] [id number] [place] [address]- 4904 Sep, [facility] [place] [facility] [address] [id number] [place] [address]- 5385 Sep, [facility] [place] [facility] [address] [id number] [place] [address]- 3472 Sep, [facility] [place] [facility] [address] [id number] [place] [address]- 4200 Sep, [facility] [place] [facility] [address] [id number] [place] [address]- 5651 Aug, [facility] [place] [facility] [address] [id number] [place] [address]- 2898 Aug, [facility] [place] [facility] [address] [id number] [place] Aug, [facility] [place] [facility] [address] [id number] [place] [address]- 6962 Aug, [facility] [place] [facility] [address] [id number] [place] [address]- 8966 Jul, [facility] [place] [facility] [address] [id number] [place]26 Jul, [facility] [place] [facility] [address] [id number] [place] [address]- 4836 Jul, [facility] [place] [facility] [address] [id number] [place] [address]- 3837 Jul, [facility] [place] [facility] [address] [id number] [place] [address]- 3706 Jul, [facility] [place] [facility] [address] [id number] [place] [address]- 3430 Jul, [facility] [place] [facility] [address] [id number] [place] [address]- 6720 Jul, [facility] [place] [facility] [address] [id number] [place] [address]- 8965 Jul, [facility] [place] [facility] [address] [id number] [place] [address]- 5555 Jul, [facility] [place] [facility] [address] [id number] [place] [address]- 1094 Jul, [facility] [place] [facility] [address] [id number] [place] [address]- 9272 Jul, [facility] [place] [facility] [address] [id number] [place] [address]- 0123 Jul, [facility] [place] [facility] [address] [id number] [place] [address]- 3979 Jun, [facility] [place] [facility] [address] [id number] [place] [address]- 5013 Jun, [facility] [place] [facility] [address] [id number] [place] [address]- 0142 Jun, [facility] [place] [facility] [address] [id number] [place] [address]- 5850 Jun, [facility] [place] [facility] [address] [id number] [place] [address]- 6220 Jun, [facility] [place] [facility] [address] [id number] [place] [address]- 0828 Jun, [facility] [place] [facility] [address] [id number] [place] [address]- 4388 May, [facility] [place] [facility] [address] [id number] [place] [address]- 3056 May, [facility] [place] [facility] [address] [id number] [place] [address]- 0426 Apr, [facility] [place] [facility] [address] [id number] [place] [address]- 7261 Apr, [facility] [place] [facility] [address] [id number] [place] [address]- 7160 Apr, [facility] [place] [facility] [address] [id number] [place] [address]- 8365 Apr, [facility] [place] [facility] [address] [id number], [place] [address]- 9316 Apr, [facility] [place] [facility] [address] [id number], [place] [address]- 0869 18 Apr, 2013 [facility] [place] [facility] [address] [id number], [place] [address]- 4882 17 Apr, 2013 [facility] [place] [facility] [address] [id number] [place] [address]- 6201 15 Apr, 2013 [facility] [place] [facility] [address] [id number], [place] [address]- 0258 15 Apr, 2013 [facility] [place] [facility] [address] [id number] [place] [address]- 0016 15 Apr, 2013 [facility] [place] [facility] [address] [id number] [place] [address]- 5547 15 Apr, 2013 [facility] [place] [facility] [address] [id number] [place] [address]- 1659 13 Apr, 2013 [facility] [place] [facility] [address] [id number] [place] [address]- 9179 13 Apr, 2013 [facility] [place] [facility] [address] [id number] [place] [address]- 5063 31 Mar, 2012 [facility] [place] [facility] [address] [id number] [place] [address]- 3139 31 Mar, 2013 [facility] [place] [facility] [address] [id number] [place] [address]- 6453 25 Mar, 2013 [facility] [place] [facility] [address] [id number] [place] [address]- 0226 25 Mar, 2013 [facility] [place] [facility] [address] [id number] [place] [address]- 9156 17 Mar, 2013 [facility] [place] [facility] [address] [id number] [place] [address]- 5095 17 Mar, 2013 [facility] [place] [facility] [address] [id number] [place] [address]- 5287 14 Mar, 2013 [facility] [place] [facility] [address] [id number] [place] [address]- 6088 14 Mar, 2013 [facility] [place] [facility] [address] [id number] [place] [address]- 2290 11 Mar, 2013 [facility] [place] [facility] [address] [id number] [place] [address]- 4254 11 Mar, 2013 [facility] [place] [facility] [address] [id number] [place] [address]- 1480 02 Mar, 2013 [facility] [place] [facility] [address] [id number] [place] [address]- 5346 30 Feb, 2013 [facility] [place] [facility] [address] [id number] [place]04 28 Feb, 2013 [facility] [place] [facility] [address] [id number] [place] [address]- 6871 27 Feb, 2013 [facility] [place] [facility] [address] [id number] [place] [address]- 8956 27 Feb, 2013 [facility] [place] [facility] [address] [id number] [place] [address]- 8576 20 Feb, 2013 [facility] [place] [facility] [address] [id number] [place] [address]- 3389 Feb, [facility] [place] [facility] [address] [id number] [place] [address]- 8053 Jan, [facility] [place] [facility] [address] [id number] [place] [address]- 1486 Jan, [facility] [place] [facility] [address] [id number] [place] [address] Dec, [facility] [place] [facility] [address] [id number] [place] [address] Dec, [facility] [place] [facility] [address] [id number] [place] [address] Dec, [facility] [place] [facility] [address] [id number] [place] [address] Dec, [facility] [place] [facility] [address] [id number] [place] [address] Nov, [facility] [place] [facility] [address] [id number] [place] [address] Nov, [facility] [place] [facility] [address] [id number] [place] [address] Nov, [facility] [place] [facility] [address] [id number] [place] [address] October, [facility] [place] [facility] [address] [id number] [place] [address] October, [facility] [place] [facility] [address] [id number] [place] [address] October, [facility] [address] [id number] [place] [address] October, [facility] [address] [id number] [place] [address] October, [facility] [address] [id number] [place] [address] Sep, [facility] [place] [facility] [address] [id number] [place] [address] Sep, [facility] [address] [id number] [place] [address] Aug, [facility] [address] [id number] [place] [address] Aug, [facility] [address] [id number] [place] [address] Aug, [facility] [place] [facility] [address] [id number] [place] [address] Aug, [facility] [place] [facility] [address] [id number] [place] [address] Aug, [facility] [place] [facility] [address] [id number] [place] [address] Jul, [facility] [place] [facility] [address] [id number] [place] [address] Jul, [facility] [place] [facility] [address] [id number] [place] [address] Jul, [facility] [place] [facility] [address] [id number] [place] [address] Jul, [facility] [place] [facility] [address] [id number] [place] [address] Jun, [facility] [place] [facility] [address] [id number] [place] [address] Jun, [facility] [place] [facility] [address] [id number] [place] [address] Jun, [facility] [address] [id number] [place] [address] Jun, [facility] [place] [facility] [address] [id number] [place] [address] Jun, [facility] [address] [id number] [place] [address] Jun, [facility] [place] [facility] [address] [id number] [place] [address] Jun, [facility] [address] [id number] [place] [address] Jun, [facility] [address] [id number] [place] [address] Jun, [facility] [address] [id number] [place] [address] Jun, [facility] [address] [id number] [place] [address] Jun, [facility] [address] [id number] [place] [address] May, [facility] [address] [id number] [place] [address] May, [facility] [place] [facility] [address] [id number] [place] [address] Apr, [facility] [place] [facility] [address] [id number] [place] [address] Apr, [facility] [place] [facility] [address] [id number] [place] [address] Mar, [facility] [place] [facility] [address] [id number] [place] [address] Mar, [facility] [place] [facility] [address] [id number] [place] [address] Mar, [facility] [place] [facility] [address] [id number] [place] [address] Mar, [facility] [place] [facility] [address] [id number] [place] [address] Mar, [facility] [place] [facility] [address] [id number] [place] [address] Mar, [facility] [place] [facility] [address] [id number] [place] [address] Mar, [facility] [place] [facility] [address] [id number] [place] [address] Mar, [facility] [place] [facility] [address] [id number] [place] [address] Mar, [facility] [place] [facility] [address] [id number] [place] [address] Feb, [facility] [place] [facility] [address] [id number] [place] [address] Jan, [facility] [place] [facility] [address] [id number] [place] [address] Jan, [facility] [place] [facility] [address] [id number], [place] [address] Dec, [facility] [place] [facility] [address] [id number], [place] [address] Dec, [facility] [place] [facility] [address] [id number], [place] [address] Dec, [facility] [place] [facility] [address] [id number] [place] [address] Nov, [facility] [place] [facility] [address] [id number], [place] [address] Nov, [facility] [place] [facility] [address] [facility] [id number] [place] [address]359 Nov, [facility] [place] [facility] [address] [id number] [place] [address] Nov, [facility] [address] [id number] [place] [address]15 October, [facility] [place] [facility] [address] [id number] [place] [address] October, [facility] [address] [id number] [place] [address]- [address] Sep, [facility] [place] [facility] [address] [id number] [place] [address] Sep, [facility] [address] [id number] [place] [address] Aug, [facility] [place] [facility] [address] [id number] [place] [address] 4068 Jul, [facility] [address] [id number] [place] [address]- 245[address] Jul, [facility] [place] [facility] [address] [id number] [place] [address]- [address] Jul, [facility] [place] [facility] [address] [id number] [place] [address] Jul, [facility] [address] [facility] [id number] [place] [address] Jun, [facility] [place] [facility] [address] [id number] [place] [address] May, [facility] [place] [facility] [address] [id number] [place] [address] May, [facility] [place] [facility] [address] [id number] [place] [address] May, [facility] [place] [facility] [address] [id number] [place] [address] May, [facility] [place] [facility] [address] [facility] [id number] [place] [address] 08 May, 2011 [facility] [place] [facility] [address] [id number] [place] [address] 14 Apr, 2011 [facility] [place] [facility] [address] [id number] [place] [address] 14 Apr, 2011 [facility] [place] [facility] [address] [id number] [place] [address] 14 Apr, 2011 [facility] [place] [facility] [address] [id number] [place] [address] 07 Apr, 2011 [facility] [place] [facility] [address] [id number] [place] 02 Apr, 2011 [facility] [place] [facility] [address] [id number] [place] [address] 26 Mar, 2011 [facility] [place] [facility] [address] [id number] [place] [address] 25 Mar, 2011 [facility] [place] [facility] [address] [id number] [place] [address] 14 Mar, 2011 [facility] [place] [facility] [address] [id number] [place] [address] 14 Mar, 2011 [facility] [place] [facility] [address] [id number] [place] [address] 13 Mar, 2011 [facility] [place] [facility] [address] [id number], [place] [address] 11 Mar, 2011 [facility] [place] [facility] [address] [id number], [place] [address] 11 Mar, 2011 [facility] [place] [facility] [address] [id number] [place] [address] 11 Mar, 2011 [facility] [place] [facility] [address] [id number] [place] [address] 14 Feb, 2011 [facility] [place] [facility] [address] [id number], [place] [address] 16 May, 2010 [facility] [place] [facility] [address] [id number], [place] [address] May, [facility] [address] [facility] [id number], [place] [address] May, [facility] [address] [facility] [id number], [place] [address] Apr, [facility] [address] [facility] [id number], [place] [address] Mar, IMMUNIZATIONS No Known Immunizations SOCIAL HISTORY Never Assessed REASON FOR VISIT f/Robb DOMINGUEZ PLAN OF CARE Activity Details Follow Up 3 Months Reason: VITAL SIGNS Height 69 in 2017-08-02 Weight 254.2 lbs 2017-08-02 Heart Rate 96 bpm 2017-08-02 Respiratory Rate 20 2017-08-02 BMI 37.53 kg/m2 2017-08-02 Blood pressure systolic 118 mmHg 2017-08-02 Blood pressure diastolic 76 mmHg 2017-08-02 MEDICATIONS Medication Instructions Dosage Frequency Start Date End Date Duration Status Ibuprofen 800 MG Orally Three times a day 1 tablet with food or milk 8h October, Active Venlafaxine HCl 75 MG Orally two tablets in am and one tablet midday 1 tablet Dec, 30 days Active Seroquel 50 MG Orally three times a day as needed for anxiety 1 tablet Mar, 30 days Active Hydrochlorothiazide 25 MG Orally Once a day 1/2 tablet 24h 180 days Active Lisinopril 40 MG TAKE ONE TABLET BY MOUTH ONCE DAILY 30 Active Xanax 0.5 MG Orally daily (part of tapering dose) 1.5 tablets Apr, 30 days Active Neurontin 300 MG Orally two times a day 3 capsules 12h 13 Aug, 2014 30 days Active Omeprazole 20 mg Orally Once a day 1 capsule 24h 90 days Active ProAir HFA 108 (90 Base) MCG/ACT Inhalation every 4 hrs 2 puffs as needed 4h Jun, 1 month Active Quetiapine Fumarate 300 MG TAKE ONE (1) TABLET BY MOUTH ONCE DAILY AT BEDTIME 30 Active Alprazolam 2 MG Orally Twice a day (part of taper dose) 1 tablet 30 days Active Acyclovir 400 MG Orally Twice a day 1 tablet 12h 30 Active Seroquel 300 MG Orally every bedtime 1 tablet May, 30 days Active RESULTS No Results PROCEDURES [...]
--- OUTSIDE RECORDS SUMMARY | 2018-08-19 09:39 | XMS REPORT ---
Author Author SOFIA WENDI Organization [facility] Address [address] [place] [address] Care Team Providers Care Desk Clerk Name Role Phone SOFIAMARIA EUGENIA ELIZABETHHANY Unavailable PROBLEMS Type Condition ICD9-CM Code MOW27-OP Code Onset Dates Condition Status SNOMED Code Problem Mixed hyperlipidemia E78.2 Active 714477584 Problem Vitamin D deficiency E55.9 Active 78104519 Problem Essential hypertension I10 Active 16636773 Problem Posttraumatic stress disorder F43.10 Active 88811517 Problem Mild intermittent asthma without complication J45.20 Active 302919159 Problem Generalized anxiety disorder F41.1 Active 21650785 Problem Gastroesophageal reflux disease, esophagitis presence not specified K21.9 Active 920635952 Problem Bipolar disorder, current episode mixed, moderate F31.62 Active 113834503 Problem Low back pain with sciatica, sciatica laterality unspecified, unspecified back pain laterality, unspecified chronicity M54.40 Active 906261338 Problem Panic disorder F41.0 Active 320252900 Problem Concussion without loss of consciousness, initial encounter S06.0X0A Active 76771579 Problem Nausea R11.0 Active 925577814 Problem Anxiety F41.9 Active 42703948 Problem Hematuria R31.9 Active 46959128 Problem Bipolar disorder F31.9 Active 59380135 Problem Multiple fractures T07.XXXA Active 251914352 Problem Acute right-sided low back pain with right-sided sciatica M54.41 Active 14960712 Problem Hospital discharge follow-up Z09 Active 417735374 Problem Hot flashes R23.2 Active 399626901 Problem History of IBS Z87.19 Active 61534930289149 Problem Breast tenderness N64.4 Active 82726617 Problem Primary insomnia F51.01 Active 024497525 Problem Hidradenitis suppurativa L73.2 Active 10165777 Problem Tobacco use Z72.0 Active 648884905 Problem Localized edema R60.0 Active 574881867 Problem Depression F32.9 Active 67589742 Problem Genital herpes simplex, unspecified site A60.00 Active 40199447 ALLERGIES No Information ENCOUNTERS Encounter Location Date Diagnosis [place] [id number] [place] [address] 68562- 6544 Dec, [facility] [id number] [place] [address] 80585- 0351 Nov, Panic disorder F41.0 [place] [address] 49050- 0243 Nov, Panic disorder F41.0 ; Generalized anxiety disorder F41.1 and Bipolar disorder, current episode mixed, moderate F31.62 [place] [id number] [place] [address] 61956- 4055 Nov, Panic disorder F41.0 [place] [id number] [place] [address] 14787- 1997 Nov, Panic disorder F41.0 [place] [id number] [place] [address] 98164- 3111 October, Panic disorder F41.0 [place] [id number] [place] [address] 68756- 2943 October, Panic disorder F41.0 ; Generalized anxiety disorder F41.1 and Bipolar disorder, current episode mixed, moderate F31.62 [place] [id number] [place] [address] 80316- 1270 October, Panic disorder F41.0 [place] [id number] [place] [address] 06200- 5090 Sep, Hospital discharge follow-up Z09 ; Concussion without loss of consciousness, initial encounter S06.0X0A and Nausea R11.0 [facility] [address] [place] [address] 63074- 5089 Sep, [place] [id number] [place] [address] 41933- 6065 Sep, Panic disorder F41.0 [place] [address] [address]- 3226 Sep, [place] [id number] [place] [address] 24129- 3056 Sep, Well woman exam with routine gynecological exam Z01.419 ; Multiple fractures T07.XXXA ; Hot flashes R23.2 ; Essential hypertension I10 ; Mixed hyperlipidemia E78.2 ; Genital herpes simplex, unspecified site A60.00 ; Alkaline phosphatase elevation R74.8 ; Dysuria R30.0 ; Vitamin D deficiency E55.9 ; Tobacco use Z72.0 ; High risk sexual behavior Z72.51 and Encounter for immunization Z23 [place] [id number] [place] [address] 38001- 2526 Aug, Panic disorder F41.0 ; Generalized anxiety disorder F41.1 and Bipolar disorder, current episode mixed, moderate F31.62 [place] [id number] [place] [address] 90842- 8792 Aug, [place] [id number] [place] [address] 87911- 3143 Jul, Panic disorder F41.0 ; Generalized anxiety disorder F41.1 and Bipolar disorder, current episode mixed, moderate F31.62 [place] [address] [place] [address] 72925- 3128 Jul, [place] [id number] [place] [address] 07669- 8148 Jul, [place] [id number] [place] [address] 74980- 9294 Jul, Effusion, right knee M25.461 ; Acute pain of right knee M25.561 and Acute pain of left knee M25.562 [place] [address] [place] [address] 91706- 5152 Jun, Bipolar disorder, current episode mixed, moderate F31.62 ; Generalized anxiety disorder F41.1 and Panic disorder F41.0 [facility] [address] [place] [address] 55838- 4470 May, Bipolar disorder, current episode mixed, moderate F31.62 ; Generalized anxiety disorder F41.1 and Panic disorder F41.0 [facility] [address] [place] [address] 35065- 3304 11 May, 2017 Bipolar disorder, current episode mixed, moderate F31.62 [place] [id number] [place] [address] 498723- 4670 04 May, 2017 Bipolar disorder, current episode mixed, moderate F31.62 [place] [id number] [place] [address] 475419- 2148 Apr, Bipolar disorder, current episode mixed, moderate F31.62 ; Generalized anxiety disorder F41.1 and Panic disorder F41.0 [place] [id number] [place] [address] 01624- 4390 17 Mar, 2017 [place] [id number] [place] [address] 92320- 4458 Mar, Bipolar disorder, current episode mixed, moderate F31.62 ; Generalized anxiety disorder F41.1 and Panic disorder F41.0 [place] [address] [place] [address] 22150- 5243 27 Feb, 2017 [place] [id number] [place] [address] 51861- 7424 22 Feb, 2017 Posttraumatic stress disorder F43.10 [facility] [id number] [place] [address] 84210- 7809 20 Feb, 2017 Gastroesophageal reflux disease, esophagitis presence not specified K21.9 [place] [id number] [place] [address] 83844- 4120 13 Feb, 2017 [place] [id number] [place] [address] 45288- 2325 06 Feb, 2017 Knee pain, right anterior M25.561 [place] [address] [place] [address] 88725- 2762 Feb, HSV (herpes simplex virus) infection B00.9 [facility] [id number] [place] [address] 14762- 5476 Feb, [facility] [id number] [place] [address] 68529- 3338 Jan, [facility] [id number] [place] [address] 50319- 8736 Jan, Posttraumatic stress disorder F43.10 [facility] [id number] [place] [address] 55766- 6600 Jan, Foot pain, left M79.672 [facility] [id number] [place] [address] 59823- 9861 Jan, [facility] [address] [place] [address] 64710- 2273 Jan, Lumbar radiculopathy, acute M54.16 ; Muscle spasm of back M62.830 and Right hip pain M25.551 [facility] [address] [place] [address] 44757- 3505 Jan, Lumbar radiculopathy, acute M54.16 [facility] [id number] [place] [address] 83842- 5662 Jan, [facility] [id number] [place] [address] 26825- 3158 Jan, [facility] [address] [place] [address] 22106- 9626 Dec, Lumbar radiculopathy, acute M54.16 ; Acute renal insufficiency N28.9 and Muscle spasm of back M62.830 [facility] [address] [place] [address] 50294- 4017 Dec, [facility] [address] [place] [address] 75483- 1106 Dec, [facility] [address] [address]- 0284 Dec, [facility] [address] [address] Dec, Low back pain with sciatica, sciatica laterality unspecified, unspecified back pain laterality, unspecified chronicity M54.40 and Acute right-sided low back pain with right-sided sciatica M54.41 [facility] [address] [address]- 9890 Dec, Posttraumatic stress disorder F43.10 [place] [id number] [place] [address] 86555- 1805 Dec, [place] [address] [place] [address] 73602- 3650 Dec, Pain in right thigh M79.651 and Acute right-sided low back pain without sciatica M54.5 [facility] [address] [place] [address] 01366- 6456 Dec, Posttraumatic stress disorder F43.10 and Major depressive disorder, recurrent episode with anxious distress F33.9 [facility] [address] [address] -8786 Dec, [facility] [address] [address]- 6411 Nov, [facility] [address] [place] [address] 85573- 2017 October, [facility] [address] [address]- 3270 October, [place] [id number] [place] [address] 86379- 3374 October, Knee pain, right anterior M25.561 [facility] [address] [address]- 6298 October, Knee pain, right anterior M25.561 [facility] [address] [address]- 0978 October, [facility] [address] [place] [address] 01441- 8583 October, [facility] [address] [address]- 6007 October, [facility] [id number] [place] [address] 71670 -7614 Sep, [facility] [address] [place] [address] 27495- 8470 Sep, [facility] [id number] [place] [address] 41639- 2616 Sep, Essential hypertension I10 [facility] [id number] [place] [address] 04384- 8379 Sep, Essential hypertension I10 [facility] [id number] [place] [address] 23056- 2256 Sep, [facility] [id number] [place] [address] 12806- 5784 Sep, Posttraumatic stress disorder F43.10 and Major depressive disorder, recurrent episode with anxious distress F33.9 [facility] [address] [address]- 8490 Sep, Multiple fractures T14.8 ; Alkaline phosphatase elevation R74.8 and Vitamin D deficiency E55.9 [facility] [address] [address]- 1913 Sep, [facility] [id number] [place] [address] 89045- 4236 Sep, Elevated serum creatinine R79.89 ; Fracture of foot, left, closed, initial encounter S92.902A and Alkaline phosphatase elevation R74.8 [facility] [address] [place] [address] 78503- 9828 Sep, Elevated serum creatinine R79.89 and Essential hypertension I10 [facility] [id number] [place] [address] 67792- 3706 Sep, [facility] [address] 40628- 3632 Aug, Gastroesophageal reflux disease, esophagitis presence not specified K21.9 [facility] [address] 61930- 3665 Aug, Essential hypertension I10 ; Fracture of foot, left, closed , initial encounter S92.902A and Alkaline phosphatase elevation R74.8 [place] [address] 09238- 9533 Jul, Genital herpes simplex, unspecified site A60.00 [place] [address] 91565- 3589 Jul, Essential hypertension I10 [place] [address] 53046- 7319 Jun, Cough R05 and Wheezing R06.2 [place] [address] 40802- 0461 Jun, Essential hypertension I10 [place] [address] 58391- 4868 May, Essential hypertension I10 [place] [address] 88866- 7744 May, Posttraumatic stress disorder F43.10 and Major depressive disorder, recurrent episode with anxious distress F33.9 [place] [address] 62528- 8463 Apr, [place] [address] 64726- 1640 Apr, [place] [address] 30924- 7093 Apr, [place] [id number] [place] [address] 72135- 7728 Mar, [place] [address] 44246- 9643 Feb, [place] [address] 32474- 4026 Jan, [place] [address] 36871- 5319 Jan, Essential hypertension I10 ; Mixed hyperlipidemia [...] [facility] [address] 25494 -4975 Jan, Localized edema R60.0 [place] [address] 90701- 5539 Dec, [place] [address] 02378- 0166 Dec, [place] [address] 70631- 2016 Dec, [facility] [address] 21287 -4390 Dec, Cough R05 ; Tobacco dependence F17.200 and Costochondritis , acute M94.0 [place] [address] 79598- 0453 Dec, Major depression, recurrent F33.9 ; Bipolar disorder, unspecified F31.9 and Posttraumatic stress disorder F43.10 [place] [address] 88823- 4402 Nov, [facility] [address] [address]- 2530 Nov, [facility] [id number] [place] [address] 96351- 1296 October, [facility] [address] [address] -2763 October, Acute upper respiratory infection, unspecified J06.9 [facility] [id number] [place] [address] 45218- 1784 October, [facility] [id number] [place] [address] 25417- 2943 Sep, Bipolar affective disorder, remission status unspecified F31.9 and Post-traumatic stress disorder F43.10 [facility] [id number] [place] [address] 26667- 9805 Sep, Bipolar disorder, unspecified F31.9 ; Posttraumatic stress disorder F43.10 and Major depression, recurrent F33.9 [facility] [id number] [place] [address] 24696- 1977 Aug, Edema R60.9 ; Fatigue R53.83 and Polydipsia R63.1 [facility] [address] [address]- 0589 Aug, [facility] [address] [place] [address] 56932- 4748 Aug, [facility] [address] [address]- 4879 Jul, [facility] [id number] [place] [address] 69456- 0971 Jul, [facility] [address] [address]- 8446 Jun, [facility] [address] [place] [address] 96238- 0765 Jun, [place] [id number] [place] [address] 04636- 9341 Jun, [place] [id number] [place] [address] 45354- 6416 Jun, [place] [id number] [place] [address] 45773- 1539 May, Mixed hyperlipidemia E78.2 [place] [address] 05773- 0415 May, Well woman exam Z01.419 ; History of herpes simplex infection Z86.19 ; Papanicolaou smear Z12.4 ; History of depression Z86.59 ; History of anxiety Z86.59 ; Lipoma of other specified sites D17.79 ; Hidradenitis suppurativa L73.2 ; Routine screening for STI (sexually transmitted infection) Z11.3 and Tobacco use Z72.[address] 04401- 8729 May, Hematuria R31.9 ; Essential hypertension I10 ; Pure hypercholesterolemia E78.0 and Hidradenitis L73.[address] 53040- 5790 May, Upper respiratory symptom R09.89 and Allergic rhinitis J30.9 [place] [id number] [place] [address] 98769- 0181 May, [place] [id number] [place] [address] 75521- 7894 May, [place] [id number] [place] [address] 36925- 1038 May, Bipolar disorder, unspecified F31.9 ; Posttraumatic stress disorder F43.10 and Major depression, recurrent F33.9 [place] [id number] [place] [address] 68610- 4179 May, [place] [address] 84538- 3496 May, [facility] [id number] [address]- 7956 Apr, [facility] [address] [address]- 2546 Apr, [facility] [address] [address] 2546 Mar, [facility] [address] [place] [address] 48101- 2546 Mar, [facility] [address] [address]- 1576 Mar, [facility] [address] [place] [address] 68094- 1296 18 Feb, 2015 Major depressive disorder, recurrent episode, moderate 296.32 and Post traumatic stress disorder (PTSD) 309.81 [facility] [address] [place] [address] 38598- 0536 Feb, [facility] [address] [address]- 0076 Feb, [facility] [address] [address]- 5986 Jan, Cough 786.2 [facility] [address] [address]- 1106 Jan, Depression, major, recurrent, moderate 296.32 and Post traumatic stress disorder (PTSD) 309.81 [facility] [id number] [address]- 7276 Jan, [facility] [address] [address] 2546 Dec, [facility] [id number] [address]- 2546 Dec, Generalized anxiety disorder 300.02 and Depression, major, recurrent, moderate 296.32 [facility] [address] [address]- 7496 14 Dec, 2014 [facility] [id number] 8326 Dec, High risk medication use V58.69 [facility] [address] [address]- 3726 10 Dec, 2014 High risk medication use V58.69 [facility] [id number] [place] [address] 19641- 9796 Dec, [facility] [address] [place] [address] 38826- 0005 Nov, Generalized anxiety disorder 300.02 and Major depressive disorder, recurrent episode, moderate 296.32 [facility] [id number] [address] Nov, Dental examination V72.2 [facility] [id number] [place] [address] [id number] Nov, Dental examination V72.2 [facility] [id number] [address]- 6906 Nov, [facility] [address] [place] [address] [id number] Nov, Dental examination V72.2 [facility] [id number] [address] Nov, Dental examination V72.2 [facility] [id number] [address]- 6886 October, Major depressive disorder, recurrent episode, moderate 296.32 and Generalized anxiety disorder 300.02 [facility] [id number] [address]- 8176 October, [facility] [id number] 2566 October, [facility] [id number] [address]- 0503 October, [facility] [place] [facility] [address] [id number] [place] [address]- 9078 14 Sep, 2014 [facility] [place] [facility] [address] [id number] [place] [address]- 3528 Sep, [facility] [place] [facility] [address] [id number] [place] [address]- 1565 17 Aug, 2014 [facility] [place] [facility] [address] [id number] [place] [address]- 7709 17 Aug, 2014 [facility] [place] [facility] [address] [id number] [place] [address]- 1296 Aug, [facility] [place] [facility] [address] [id number] [place] [address]- 7652 Aug, [facility] [place] [facility] [address] [id number] [place] [address]- 9942 Aug, [facility] [place] [facility] [address] [id number] [place] [address]- 6384 Aug, [facility] [place] [facility] [address] [id number] [place] [address]- 3306 Aug, [facility] [place] [facility] [address] [id number] [place] [address]- 7261 Jul, [facility] [place] [facility] [address] [id number] [place] [address]- 8405 Jul, 2014 [facility] [place] [facility] [address] [id number] [place] [address]- 5095 Jul, 2014 [facility] [place] [facility] [address] [id number] [place] [address]- 3151 Jul, [facility] [place] [facility] [address] [id number] [place] [address]- 5299 06 Jul, 2014 [facility] [place] [facility] [address] [id number] [place] [address]- 5782 04 Jul, 2014 [facility] [place] [facility] [address] [id number] [place] [address]- 8634 Jul, [facility] [place] [facility] [address] [id number] [place] [address]- 2206 Jul, [facility] [place] [facility] [address] [id number] [place] [address]- 8026 Jul, [facility] [place] [facility] [address] [id number] [place] [address]- 8808 Jun, [facility] [place] [facility] [address] [id number] [place] [address]- 7057 Jun, [facility] [place] [facility] [address] [id number] [place] [address]- 7824 Jun, [facility] [place] [facility] [address] [id number] [place] [address]- 9907 Jun, [facility] [place] [facility] [address] [id number] [place] [address]- 7857 Jun, [facility] [place] [facility] [address] [id number] [place] [address] Jun, [facility] [place] [facility] [address] [id number] [place] [address] Jun, [facility] [place] [facility] [address] [id number] [place] [address] Jun, [facility] [place] [facility] [address] [id number] [place] [address] Jun, [facility] [place] [facility] [address] [id number] [place] [address] Jun, [facility] [place] [facility] [address] [id number] [place] [address] Jun, [facility] [place] [facility] [address] [id number] [place] [address] Jun, [facility] [place] [facility] [address] [id number] [place] [address] Jun, [facility] [place] [facility] [address] [id number] [place] [address] Jun, [facility] [place] [facility] [address] [id number] [place] [address] Jun, [facility] [place] [facility] [address] [id number] [place] [address] Jun, [facility] [place] [facility] [address] [id number] [place] [address] Jun, [facility] [place] [facility] [address] [id number] [place] [address] Jun, [facility] [place] [facility] [address] [id number] [place] [address] Jun, [facility] [place] [facility] [address] [id number] [place] [address] 7[address] Jun, [facility] [place] [facility] [address] [id number] [place] [address] 0398 Jun, [facility] [place] [facility] [address] [id number] [place] [address] 2[address] Jun, [facility] [place] [facility] [address] [id number] [place] [address]- 6777 Jun, [facility] [place] [facility] [address] [id number] [address] 88[address] Jun, [facility] [place] [facility] [address] [id number] [address] 6029 Jun, [facility] [place] [facility] [address] [id number] [place] [address] 5597 May, [facility] [place] [facility] [address] [id number] [place] [address]- 2707 May, [facility] [place] [facility] [address] [id number] [place] [address]- 9713 May, [facility] [place] [facility] [address] [id number] [place] [address]- 1200 May, [facility] [place] [facility] [address] [id number] [place] [address] May, [facility] [place] [facility] [address] [id number] [place] [address]- 3066 May, [facility] [place] [facility] [address] [id number] [place] [address]- 4976 May, [facility] [place] [facility] [address] [id number] [place] [address]- 4946 May, [facility] [place] [facility] [address] [id number] [place] [address]- 2840 May, [facility] [place] [facility] [address] [id number] [place] [address]- 0633 May, [facility] [place] [facility] [address] [id number] [place] [address]- 4914 May, [facility] [place] [facility] [address] [id number] [place] [address]- 6672 May, [facility] [place] [facility] [address] [id number] [place] [address]- 2022 May, [facility] [place] [facility] [address] [facility] [id number] [place] [address]- 3339 May, [facility] [place] [facility] [address] [id number] [place] [address]- 8218 May, [facility] [place] [facility] [address] [id number] [place] [address]- 3263 May, [facility] [place] [facility] [address] [id number] [place] [address]- 9752 May, [facility] [place] [facility] [address] [id number] [place] [address]- 9827 May, [facility] [place] [facility] [address] [id number] [place] [address]- 3440 Apr, [facility] [place] [facility] [address] [id number] [place] [address]- 7654 Apr, [facility] [place] [facility] [address] [id number] [place] [address]- 7361 Apr, [facility] [place] [facility] [address] [id number] [place] [address]- 2557 Apr, [facility] [place] [facility] [address] [id number] [place] [address]- 0130 Apr, [facility] [place] [facility] [address] [id number] [place] [address]- 9268 Apr, [facility] [place] [facility] [address] [id number] [place] [address]- 3961 Apr, [facility] [place] [facility] [address] [id number] [place] [address]- 2389 Apr, [facility] [place] [facility] [address] [id number] [place] [address]- 8573 Mar, [facility] [place] [facility] [address] [id number] [place] [address]- 9725 Mar, [facility] [place] [facility] [address] [id number] [place] [address]- 1175 Feb, [facility] [place] [facility] [address] [id number] [place] [address]- 1484 Feb, [facility] [place] [facility] [address] [id number] [place] [address]- 9388 Feb, [facility] [place] [facility] [address] [id number] [place] [address]- 6459 Feb, [facility] [place] [facility] [address] [id number] [place] [address]- 9463 Feb, [facility] [place] [facility] [address] [id number] [place] [address]- 8491 Feb, [facility] [place] [facility] [address] [id number] [place] [address]- 1592 Feb, [facility] [place] [facility] [address] [id number] [place] [address]- 8002 Feb, [facility] [place] [facility] [address] [id number] [place] [address]- 1754 Feb, [facility] [place] [facility] [address] [id number] [place] [address]- 8561 Feb, [facility] [place] [facility] [address] [id number] [place] [address]- 4241 Jan, [facility] [place] [facility] [address] [id number] [place] [address]- 3424 Jan, [facility] [place] [facility] [address] [id number] [place] [address]- 6548 Jan, [facility] [place] [facility] [address] [id number] [place] [address]- 9351 Jan, [facility] [place] [facility] [address] [id number] [place] [address]- 5780 Jan, [facility] [place] [facility] [address] [id number] [place] [address]- 2933 Jan, [facility] [place] [facility] [address] [id number] [place] [address]- 3756 Jan, [facility] [place] [facility] [address] [id number] [place] [address]- 6776 Jan, [facility] [place] [facility] [address] [id number] [place] [address]- 2820 Jan, [facility] [place] [facility] [address] [id number] [place] [address]- 6000 Jan, [facility] [place] [facility] [address] [id number] [place] [address]- 7503 Jan, [facility] [place] [facility] [address] [id number] [place] [address]- 0592 Jan, [facility] [place] [facility] [address] [id number] [place] [address]- 1351 Jan, [facility] [place] [facility] [address] [id number] [place] [address]- 4831 Dec, [facility] [place] [facility] [address] [id number] [place] [address]- 7980 Dec, [facility] [place] [facility] [address] [id number] [place] [address]- 4234 Dec, [facility] [place] [facility] [address] [id number] [place] [address]- 2029 Dec, [facility] [place] [facility] [address] [id number] [place] [address]- 1296 Dec, [facility] [place] [facility] [address] [id number] [place] [address]- 0265 Dec, [facility] [place] [facility] [address] [id number] [place] [address]- 6008 Dec, [facility] [place] [facility] [address] [id number] [place] [address]- 0906 Dec, [facility] [place] [facility] [address] [id number] [place] [address]- 6150 Dec, [facility] [place] [facility] [address] [id number] [place] [address]- 5094 Dec, [facility] [place] [facility] [address] [id number] [place] [address]- 7993 Dec, [facility] [place] [facility] [address] [id number] [place] [address]- 6461 Dec, [facility] [place] [facility] [address] [id number] [place] [address]- 3337 Dec, [facility] [place] [facility] [address] [id number] [place] [address]- 6461 Dec, [facility] [place] [facility] [address] [id number] [place] [address] Nov, [facility] [place] [facility] [address] [id number] [place] [address]- 0633 Nov, [facility] [place] [facility] [address] [id number] [place] [address]- 7115 Nov, [facility] [place] [facility] [address] [id number] [place] [address]- 6550 Nov, [facility] [place] [facility] [address] [id number] [place] [address]- 5501 Nov, [facility] [place] [facility] [address] [id number] [place] [address]- 9963 Nov, [facility] [place] [facility] [address] [id number] [place] [address]- 0224 Nov, [facility] [place] [facility] [address] [id number] [place] [address]- 2585 Nov, [facility] [place] [facility] [address] [id number] [place] [address]- 1088 October, [facility] [place] [facility] [address] [id number] [place] [address]- 1606 October, [facility] [place] [facility] [address] [id number] [place] [address]- 8296 October, [facility] [place] [facility] [address] [id number] [place] [address]- 4568 October, [facility] [place] [facility] [address] [id number] [place] [address]- 1603 October, [facility] [place] [facility] [address] [id number] [place] [address]- 8630 October, [facility] [place] [facility] [address] [id number] [place] [address]- 3595 October, [facility] [place] [facility] [address] [id number] [place] [address]- 1536 October, [facility] [place] [facility] [address] [id number] [place] [address]- 8606 October, [facility] [address] [id number] [place] [address]- 9938 October, [facility] [place] [facility] [address] [id number] [place] [address]- 3381 October, [facility] [place] [facility] [address] [id number] [place] [address]- 5816 October, [facility] [place] [facility] [address] [id number] [place] [address]- 3781 October, [facility] [place] [facility] [address] [id number] [place] [address]- 4310 October, [facility] [place] [facility] [address] [id number] [place] [address]- 7136 October, [facility] [address] [id number] [place] [address]- 5935 October, [facility] [place] [facility] [address] [id number] [place] [address]- 3942 Sep, [facility] [place] [facility] [address] [id number] [place] [address]- 9936 Sep, [facility] [place] [facility] [address] [id number] [place] [address]- 1512 Sep, [facility] [place] [facility] [address] [id number] [place] [address]- 6670 Sep, [facility] [place] [facility] [address] [id number] [place] [address]- 6406 Sep, [facility] [place] [facility] [address] [id number] [place] [address]- 2348 Sep, [facility] [place] [facility] [address] [id number] [place] [address]- 0694 Sep, [facility] [place] [facility] [address] [id number] [place] [address]- 7053 Sep, [facility] [place] [facility] [address] [id number] [place] [address]- 5527 Sep, [facility] [place] [facility] [address] [id number] [place] [address]- 6751 Sep, [facility] [place] [facility] [address] [id number] [place] [address]- 0620 Sep, [facility] [place] [facility] [address] [id number] [place] [address]- 9201 Sep, [facility] [place] [facility] [address] [id number] [place] [address]- 5105 Sep, [facility] [place] [facility] [address] [id number] [place] [address]- 5907 Sep, [facility] [place] [facility] [address] [id number] [place] [address]- 5859 Sep, [facility] [place] [facility] [address] [id number] [place] [address]- 7029 Sep, [facility] [place] [facility] [address] [id number] [place] [address]- 8597 Sep, [facility] [place] [facility] [address] [id number] [place] [address]- 6170 Sep, [facility] [place] [facility] [address] [id number] [place] [address]- 6230 Sep, [facility] [place] [facility] [address] [id number] [place] [address]- 2446 Aug, [facility] [place] [facility] [address] [id number] [place] [address]- 1328 Aug, [facility] [place] [facility] [address] [id number] [place] [address]- 7873 05 Aug, 2013 [facility] [place] [facility] [address] [id number] [place] [address]- 3866 05 Aug, 2013 [facility] [place] [facility] [address] [id number] [place] [address]- 1821 Jul, [facility] [place] [facility] [address] [id number] [place] [address]- 5496 Jul, [facility] [place] [facility] [address] [id number] [place] [address]- 8616 Jul, [facility] [place] [facility] [address] [facility] [id number] [place] [address]- 7866 Jul, [facility] [place] [facility] [address] [id number] [place] [address]- 6891 Jul, [facility] [place] [facility] [address] [id number] [place] [address]- 4724 Jul, [facility] [place] [facility] [address] [facility] [id number] [place] [address]- 6778 Jul, [facility] [place] [facility] [address] [facility] [id number] [place] [address]- 7633 Jul, [facility] [place] [facility] [address] [facility] [id number] [place] [address]- 2812 Jul, [facility] [place] [facility] [address] [facility] [id number] [place] [address]- 3201 Jul, [facility] [place] [facility] [address] [facility] [id number] [place] [address]- 8935 Jul, [facility] [place] [facility] [address] [facility] [id number] [place] [address]- 9168 Jul, [facility] [place] [facility] [address] [facility] [id number] [place] [address]- 0097 Jun, [facility] [place] [facility] [address] [facility] [id number] [place] [address]- 4366 Jun, [facility] [place] [facility] [address] [facility] [id number] [place] [address]- 6317 Jun, [facility] [place] [facility] [address] [facility] [id number] [place] [address]- 6008 Jun, [facility] [place] [facility] [address] [id number] [place] [address]- 6431 Jun, [facility] [address] [id number] [place] [address]- 6689 Jun, [facility] [place] [facility] [address] [id number] [place] [address]- 3121 May, [facility] [place] [facility] [address] [id number] [place] [address]- 1849 May, [facility] [address] [id number] [place] [address]- 6953 Apr, [facility] [place] [facility] [address] [id number] [place] [address]- 9308 Apr, [facility] [address] [id number] [place] [address]- 7768 Apr, [facility] [address] [id number] [place] [address]- 7662 19 Apr, 2013 [facility] [address] [id number] [place] [address]- 8104 18 Apr, 2013 [facility] [address] [id number] [place] [address]- 5583 18 Apr, 2013 [facility] [place] [facility] [address] [id number] [place] [address]- 5660 17 Apr, 2013 [facility] [place] [facility] [address] [id number] [address]- 5018 15 Apr, 2013 [facility] [place] [facility] [address] [id number] [place] [address]- 5349 15 Apr, 2013 [facility] [place] [facility] [address] [id number] [place] [address]- 3144 15 Apr, 2013 [facility] [place] [facility] [address] [id number] [place] [address]- 8159 15 Apr, 2013 [facility] [place] [facility] [address] [id number] [place] [address]- 2546 Apr, [facility] [place] [facility] [address] [id number] [place] [address]- 9566 Apr, [facility] [place] [facility] [address] [id number] [place] [address]- 5487 31 Mar, 2013 [facility] [place] [facility] [address] [id number] [place] 9630 Mar, [facility] [place] [facility] [address] [id number] [place] [address]40 Mar, [facility] [place] [facility] [address] [id number] [place]35 25 Mar, 2013 [facility] [place] [facility] [address] [id number] [place] [address]- 0183 Mar, [facility] [place] [facility] [address] [id number] [place]809 17 Mar, 2013 [facility] [place] [facility] [address] [id number] [place] [address]- 1617 14 Mar, 2013 [facility] [place] [facility] [address] [id number] [place] [address]- 9288 14 Mar, 2013 [facility] [place] [facility] [address] [id number] [place] [address]- 3653 Mar, [facility] [place] [facility] [address] [id number] [address]- 8996 Mar, [facility] [place] [facility] [address] [id number] [address]- 1941 02 Mar, 2013 [facility] [place] [facility] [address] [id number] [place] [address]- 4656 30 Feb, 2013 [facility] [place] [facility] [address] [id number] [place] 3802 28 Feb, 2013 [facility] [place] [facility] [address] [id number] [place]593 27 Feb, 2012 [facility] [place] [facility] [address] [id number] [place] [address]- 4481 27 Feb, 2013 [facility] [address] [id number] [place] [address]- 5095 20 Feb, 2013 [facility] [address] [id number] [place] [address]- 2836 10 Feb, 2013 [facility] [address] [id number] [place] [address]- 2894 Jan, [facility] [address] [id number] [place] [address]- 9851 Jan, [facility] [address] [id number] [place] [address]- 1676 Dec, [facility] [address] [id number] [place] [address]- 3921 Dec, [facility] [address] [id number] [place] [address]- 6836 Dec, [facility] [address] [id number] [place] [address]- 0289 Dec, [facility] [address] [id number] [place] [address]- 9325 Nov, [facility] [address] [id number] [place] [address]- 5980 Nov, [facility] [address] [id number] [place] [address]- 5105 Nov, [facility] [address] [id number] [place] [address]- 6120 October, [facility] [place] [facility] [address] [id number] [place] [address]- 4322 October, [facility] [address] [id number] [place] [address]- 2546 October, [facility] [address] [id number] [place] [address]- 4290 October, [facility] [address] [id number] [place] [address]- 3313 October, [facility] [place] [facility] [address] [id number] [place] [address]- 7897 Sep, [facility] [address] [id number] [place] 8185 Sep, [facility] [place] [facility] [address] [id number] [place] [address]- 3527 Aug, [facility] [address] [id number] [place] [address]- 0394 Aug, [facility] [place] [facility] [address] [id number] [place] [address]- 8527 Aug, [facility] [address] [id number] [place] [address] Aug, [facility] [place] [facility] [address] [id number] [place] [address] Aug, [facility] [place] [facility] [address] [id number] [place] [address] Jul, [facility] [place] [facility] [address] [id number] [place] [address] Jul, [facility] [place] [facility] [address] [id number] [place] [address] Jul, [facility] [place] [facility] [address] [id number] [address] Jul, [facility] [place] [facility] [address] [id number] [place] [address] Jun, [facility] [place] [facility] [address] [id number] [place] [address] Jun, [facility] [place] [facility] [address] [id number] [place] [address] Jun, [facility] [place] [facility] [address] [id number] [place] [address] 18 Jun, 2012 [facility] [place] [facility] [address] [id number] [place] [address] Jun, [facility] [place] [facility] [address] [id number] [place] [address] Jun, [facility] [place] [facility] [address] [id number] [place] [address] Jun, [facility] [place] [facility] [address] [id number] [place] [address] Jun, [facility] [place] [facility] [address] [id number] [place] [address] Jun, [facility] [place] [facility] [address] [id number] [place] [address] Jun, [facility] [place] [facility] [address] [id number] [place] [address] Jun, [facility] [place] [facility] [address] [id number] [place] [address] May, [facility] [place] [facility] [address] [id number] [place] [address] May, [facility] [place] [facility] [address] [facility] [id number] [place] [address] Apr, [facility] [place] [facility] [address] [id number] [place] [address] Apr, [facility] [place] [facility] [address] [id number] [place] [address] Mar, [facility] [place] [facility] [address] [id number] [place] [address]609 Mar, [facility] [place] [facility] [address] [id number] [place] [id number] Mar, [facility] [place] [facility] [address] [id number] [place] [address] Mar, [facility] [place] [facility] [address] [id number] [place] [address] Mar, [facility] [place] [facility] [address] [id number] [place] [address] Mar, [facility] [place] [facility] [address] [id number] [place] [address] Mar, [facility] [place] [facility] [address] [id number] [place] [address] 254 Mar, [facility] [place] [facility] [address] [id number] [place] [address] Mar, [facility] [place] [facility] [address] [id number] [place] [address] Feb, [facility] [place] [facility] [address] [id number] [place] [address] Jan, [facility] [place] [facility] [address] [id number] [place] [address] Jan, [facility] [place] [facility] [address] [id number] [place] [address] Dec, [facility] [place] [facility] [address] [id number] [place] [address] Dec, [facility] [place] [facility] [address] [id number] [place] [address]247 Dec, [facility] [place] [facility] [address] [id number] [place] [address]41 Nov, [facility] [place] [facility] [address] [id number] [place] [address] Nov, [facility] [place] [facility] [address] [id number] [place] [address] Nov, [facility] [place] [facility] [address] [id number] [place] [address]47 Nov, [facility] [place] [facility] [address] [id number] [place] [address] October, [facility] [address] [id number] [place] [address] October, [facility] [place] [facility] [address] [id number] [place] [address] Sep, [facility] [place] [facility] [address] [facility] [id number] [place] [address] Sep, [facility] [address] [id number] [place] [address] Aug, [facility] [address] [id number] [place] [address] Jul, [facility] [place] [facility] [address] [id number] [place] [address] Jul, [facility] [address] [facility] [id number] [place] [address] 37[address] Jul, [facility] [place] [facility] [address] [facility] [id number] [place] [address] 40[address] Jul, [facility] [address] [facility] [id number] [place] [address] Jun, [facility] [address] [facility] [id number] [place] [address] May, [facility] [address] [id number] [place] [address]- [address] 15 May, 2011 [facility] [place] [facility] [address] [id number] [place] [address] 15 May, 2011 [facility] [place] [facility] [address] [id number] [place] [address] 13 May, 2011 [facility] [place] [facility] [address] [facility] [id number] [place] [address] 08 May, 2011 [facility] [place] [facility] [address] [facility] [id number] [place] [address] 14 Apr, 2011 [facility] [place] [facility] [address] [id number] [place] [address]- [address] 14 Apr, 2011 [facility] [place] [facility] [address] [id number] [place] [address]- 280[address] 14 Apr, 2011 [facility] [place] [facility] [address] [id number] [place] [address]- [address]178 07 Apr, 2011 [facility] [place] [facility] [address] [id number] [place] [address]- [address] 02 Apr, 2011 [facility] [place] [facility] [address] [id number] [place] [address] 26 Mar, 2011 [facility] [place] [facility] [address] [id number] [place] [address] 25 Mar, 2011 [facility] [place] [facility] [address] [id number] [place] [address]- 3990 14 Mar, 2011 [facility] [place] [facility] [address] [id number] [place] [address] 6708 14 Mar, 2011 [facility] [place] [facility] [address] [id number] [place] [address]- 6882 13 Mar, 2011 [facility] [place] [facility] [address] [id number] [place] [address]- 5619 11 Mar, 2011 [facility] [place] [facility] [address] [id number] [place] [address]- 8390 11 Mar, 2011 [facility] [place] [facility] [address] [id number] [place] [address]- 2704 11 Mar, 2011 [facility] [place] [facility] [address] [id number] [place] [address]- 1795 14 Feb, 2011 [facility] [place] [facility] [address] [id number] [place] [address]- [address] 16 May, 2010 [facility] [place] [facility] [address] [id number] [place] [address]- 4476 16 May, 2010 [facility] [place] [facility] [address] [id number] [place] [address] May, [facility] [address] [facility] [place] [id number] [place] [address] Apr, [facility] [address] [facility] [place] [id number] [place] [address] Mar, IMMUNIZATIONS No Known Immunizations SOCIAL HISTORY Never Assessed REASON FOR VISIT FYI only PLAN OF CARE VITAL SIGNS MEDICATIONS Unknown [...]
[2018-08-19] MEDS ORDERED: LISI-552 PO (09:40)
[2018-08-19 09:45] LABS: HEMATOCRIT 42 % (35-52); HEMOGLOBIN 14.7 G/DL (11.5-16.0); MEAN CORPUSCULAR HEMOGLOBIN 31 PG (25-34); MEAN CORPUSCULAR HGB CONC 35 G/DL (32-36); MEAN CORPUSCULAR VOLUME 89 FL (80-99); MEAN PLATELET VOLUME 9.3 FL (7.4-10.4); PLATELET COUNT 360 10^3/uL (130-400); RED CELL DISTRIBUTION WIDTH 12.2 % (10.0-14.5); WHITE BLOOD COUNT 11.7 10^3/uL (4.3-11.0)
[2018-08-19] MEDS ORDERED: RECEIVED CONTRAST 20 ML VIAL IV SCH (09:45)
[2018-08-19] MEDS ORDERED: IOHEXOL 350 MG/ML 100 ML (OMNIPAQUE 350) VIAL IV ONE (09:45)
[2018-08-19] MEDS ORDERED: NS 50 ML (IVPB) BAG IV ONE (09:45)
--- NOTE | 2018-08-19 09:46 | ED Abdominal Pain ---
General Chief Complaint: Abdominal/GI Problems Stated Complaint: VOMITING,DIARRHEA,HOT FLASHES Nursing Triage Note: Patient states she began having nausea and vomiting last evening around 8 pm, states she vomited all night and began having diarrhea as well this morning. Describes abdominal cramping associated with nausea and diarrhea, also states she has been chilling. Sepsis Screen: Possible Sepsis Risk Source of Information: Patient History of Present Illness Date Seen by Provider: Aug 19, 2018 Time Seen by Provider: 09:43 Initial Comments Patient presents emergency department for evaluation of abdominal pain nausea vomiting and diarrhea started last night around 8 PM after eating some chicken fajitas. She says that the pain has persisted any bowel pain is throughout her entire abdomen feels like a twisting sensation. The emesis is nonbloody nonbilious and diarrhea is soft brown stools but not watery. She says that she has had a cholecystectomy but no other abdominal surgeries. She appears uncomfortable but is nontoxic. Allergies and Home Medications Allergies Coded Allergies: Sulfa (Sulfonamide Antibiotics) (Unverified Allergy, Unknown, 07/31/14) amoxicillin (Unverified Allergy, Unknown, 07/31/14) cyclobenzaprine (Unverified Allergy, Unknown, 01/15/17) morphine (Unverified Allergy, Unknown, 07/31/14) paroxetine (Unverified Allergy, Unknown, 07/31/14) sulfamethoxazole (Unverified Allergy, Unknown, 07/31/14) tramadol (Verified Allergy, Unknown, itching, 12/21/16) trimethoprim (Unverified Allergy, Unknown, 07/31/14) acetaminophen (Verified Adverse Reaction, Intermediate, nausea, 12/21/16) codeine (Verified Adverse Reaction, Intermediate, nausea, 12/21/16) hydrocodone (Unverified Adverse Reaction, Intermediate, nausea, 12/21/16) Home Medications Alprazolam 2 Mg Tablet, 2 MG PO TID PRN for ANXIETY, (Reported) Gabapentin 300 Mg Tablet, 900 MG PO BID, (Reported) Ketorolac Tromethamine 10 Mg Tablet, 10 MG PO Q6H Prescribed by: GUY XIAO on 10/15/178 Lisinopril 20 Mg Tablet, 20 MG PO DAILY, (Reported) Methocarbamol 500 Mg Tablet, 500 MG PO QID Prescribed by: GUY XIAO on 10/15/17 0248 Patient Home Medication List Home Medication List Reviewed: Yes Review of Systems Review of Systems Constitutional: chills; No fever Respiratory: Denies Cough Cardiovascular: Denies Chest Pain Gastrointestinal: Abdominal Pain, Diarrhea, Nausea, Vomiting Genitourinary: Denies Burning Musculoskeletal: No back pain Skin: No rash All Other Systems Reviewed Negative Unless Noted: Yes Past Bopihhs-Hfrfok-Eimtym Hx Patient Social History Alcohol Use: Denies Use Recreational Drug Use: No Smoking Status: Former Smoker Type Used: Cigarettes Former Smoker, Quit: Jun 21, 2018 2nd Hand Smoke Exposure: Yes Recent Foreign Travel: No Contact w/Someone Who Travel: No Recent Infectious Disease Expo: No Recent Hopitalizations: No Physical Abuse: No Sexual Abuse: No Mistreated: No Fear: No Immunizations Up To Date Tetanus Booster (TDap): Less than 5yrs Seasonal Allergies Seasonal Allergies: No Past Medical History Surgeries: Yes Breast, Gallbladder, Hysterectomy, Nose Respiratory: Yes Asthma Cardiac: Yes High Cholesterol, Hypertension Neurological: Yes (OCCASIONAL HEADACHES) Headaches /Migraines 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 Sexually Transmitted Disease: No HIV/AIDS: No Genitourinary: Yes Kidney Stones, UTI-Chronic Gastrointestinal: No Musculoskeletal: Yes (LEFT FOOT FRACTURE) Chronic Back Pain, Fractures Endocrine: No HEENT: No Cancer: No Psychosocial: Yes (SUICIDAL IDEATION) Anxiety, Depression Integumentary: No Blood Disorders: No Adverse Reaction/Blood Tranf: No Family Medical History No Pertinent Family Hx Physical Exam Vital Signs Vital Signs - First Documented 08/19/18 09:10 Temp 99.1 Pulse 114 Resp 14 B/P (MAP) 140/64 (89) Pulse Ox 96 O2 Delivery Room Air Capillary Refill : Less Than 3 Seconds Height/Weight/BMI Height: 5'8.00" Weight: 275lbs. oz. 124.534479qy; 31.01 BMI Method:Stated General Appearance: WD/WN, no apparent distress HEENT: PERRL/EOMI, normal ENT inspection Neck: supple Respiratory: lungs clear Cardiovascular: no murmur, tachycardia Gastrointestinal: soft; No guarding, No rebound; tenderness (in all quardrants) Extremities: normal capillary refill Back: normal inspection Skin: normal color, warm/dry Progress/Results/Core Measures Results/Orders Lab Results Laboratory Tests Test 08/19/18 09:24 Range/Units White Blood Count 11.7 H 4.3-11.0 10^3/uL Red Blood Count 4.68 4.35-5.85 10^6/uL Hemoglobin 14.7 11.5-16.0 G/DL Hematocrit 42 35-52 % Mean Corpuscular Volume 89 80-99 FL Mean Corpuscular Hemoglobin 31 25-34 PG Mean Corpuscular Hemoglobin Concent 35 32-36 G/DL Red Cell Distribution Width 12.2 10.0-14.5 % Platelet Count 360 130-400 10^3/uL Mean Platelet Volume 9.3 7.4-10.4 FL Neutrophils (%) (Auto) 90 H 42-75 % Lymphocytes (%) (Auto) 6 L 12-44 % Monocytes (%) (Auto) 3 0-12 % Eosinophils (%) (Auto) 1 0-10 % Basophils (%) (Auto) 0 0-10 % Neutrophils # (Auto) 10.6 H 1.8-7.8 X 10^3 Lymphocytes # (Auto) 0.7 L 1.0-4.0 X 10^3 Monocytes # (Auto) 0.4 0.0-1.0 X 10^3 Eosinophils # (Auto) 0.1 0.0-0.3 10^3/uL Basophils # (Auto) 0.0 0.0-0.1 10^3/uL Neutrophils % (Manual) 78 % Lymphocytes % (Manual) 5 % Monocytes % (Manual) 5 % Band Neutrophils 10 % Atypical Lymphocytes 2 % Sodium Level 135 135-145 MMOL/L Potassium Level 4.3 3.6-5.0 MMOL/L Chloride Level 99 98-107 MMOL/L Carbon Dioxide Level 16 L 21-32 MMOL/L Anion Gap 20 H 5-14 MMOL/L Blood Urea Nitrogen 16 7-18 MG/DL Creatinine 0.59 L 0.60-1.30 MG/DL Estimat Glomerular Filtration Rate > 60 BUN/Creatinine Ratio 27 Glucose Level 129 H 70-105 MG/DL Calcium Level 8.9 8.5-10.1 MG/DL Corrected Calcium 8.5 8.5-10.1 MG/DL Total Bilirubin 0.4 0.1-1.0 MG/DL Aspartate Amino Transf (AST/SGOT) 26 5-34 U/L Alanine Aminotransferase (ALT/SGPT) 30 0-55 U/L Alkaline Phosphatase 114 40-136 U/L Total Protein 8.0 6.4-8.2 GM/DL Albumin 4.5 3.2-4.5 GM/DL Lipase 12 8-78 U/L My Orders Orders - GOMEZ MELGOZA DO Ondansetron Oral Dissolve Tab (Zofran (08/19/18 09:14) Ondansetron Oral Dissolve Tab (Zofran (08/19/18 09:28) Cbc With Automated Diff (08/19/18 09:30) Comprehensive Metabolic Panel (08/19/18 09:30) Lipase (08/19/18 09:30) Ct Abdomen/Pelvis W (08/19/18 09:30) Ondansetron Injection (Zofran Injectio (08/19/18 09:30) Fentanyl Injection (Sublimaze Injection (08/19/18 09:30) Ns Iv 1000 Ml (Sodium Chloride 0.9%) (08/19/18 09:30) Iohexol Injection (Omnipaque 350 Mg/Ml 1 (08/19/18 09:45) Received Contrast (Contrast Received) (08/19/18 09:45) Ns (Ivpb) (Sodium Chloride 0.9% Ivpb Bag (08/19/18 09:45) Manual Differential (08/19/18 09:24) Promethazine Injection (Phenergan Injec (08/19/18 10:45) Fentanyl Injection (Sublimaze Injection (08/19/18 10:45) Dicyclomine Capsule (Bentyl Capsule) (08/19/18 10:45) Hyoscyamine Sl Tablet (Levsin Sl Tablet) (08/19/18 11:15) Medications Given in ED Current Medications Medications Dose Ordered Sig/Brandon Route Start Time Stop Time Status Last Admin Dose Admin Fentanyl Citrate 100 mcg ONCE ONCE IVP 08/19/18 09:30 08/19/18 09:33 DC 08/19/18 09:40 100 MCG Fentanyl Citrate 100 mcg ONCE ONCE IVP 08/19/18 10:45 08/19/18 10:46 DC 08/19/18 11:00 100 MCG Hyoscyamine Sulfate 0.125 mg ONCE ONCE PO 08/19/18 11:15 08/19/18 11:16 DC 08/19/18 11:07 0.125 MG Iohexol 100 ml ONCE ONCE IV 08/19/18 09:45 08/19/18 09:46 DC 08/19/18 09:53 100 ML Ondansetron HCl 4 mg ONCE ONCE IVP 08/19/18 09:30 08/19/18 09:33 DC 08/19/18 09:43 4 MG Promethazine HCl 12.5 mg ONCE ONCE IVP 08/19/18 10:45 08/19/18 10:46 DC 08/19/18 11:00 12.5 MG Sodium Chloride 50 ml ONCE ONCE IV 08/19/18 09:45 08/19/18 09:46 DC 08/19/18 09:53 50 ML Sodium Chloride 1,000 ml ONCE ONCE IV 08/19/18 09:30 08/19/18 09:33 DC 08/19/18 09:38 1,000 ML Vital Signs/I&O 08/19/18 09:10 Temp 99.1 Pulse 114 Resp 14 B/P (MAP) 140/64 (89) Pulse Ox 96 O2 Delivery Room Air Blood Pressure Mean: 89 Progress Progress Note : Time: 11:22 Progress Note Patient is feeling much better after initial fluids and fentanyl Zofran however she still has some pain and nausea. Patient given additional fentanyl and Phenergan for pain and nausea is resolved and she can tolerate fluids with no difficulty. On workup there is no acute surgical process however she does have mild leukocytosis and decreased CO2 indicating that she has dehydrated and acidotic. Given patient can tolerate fluids by mouth and complaining ago and I told her she needs to drink plenty of fluids we'll prescribe her medication for pain and nausea. She was told to follow with primary care provider within 2 days and come back to the ED sooner with worsening pain fevers vomiting vaginal concerns. Patient aware and agreeable with plan and verbalized understanding of the above instructions. Departure Impression Primary Impression: Nausea and vomiting Additional Impressions: Diarrhea Blood CO2 decreased Leukocytosis Abdominal pain Disposition: 01 HOME, SELF-CARE Condition: Stable Departure-Patient Inst. Decision time for Depature: 11:26 Referrals: WENDI BLACK MD (PCP/Family) Primary Care Physician Scripts Hyoscyamine Sulfate (Levsin-Sl) 0.125 Mg Tab.subl 0.125 MG SL Q4H PRN for ABDOMINAL PAIN, #10 TAB Prov: GOMEZ MELGOZA DO 08/19/18 Ondansetron (Ondansetron Odt) 8 Mg Tab.rapdis 8 MG PO Q6H PRN for NAUSEA/VOMITING-1ST LINE, #15 TAB Prov: GOMEZ MELGOZA DO 08/19/18 GOMEZ MELGOZA DO Aug 19, 2018 09:46
[2018-08-19 09:47] LABS: BASOPHILS % (AUTO) 0 % (0-10); EOSINOPHILS # (AUTO) 0.1 10^3/uL (0.0-0.3); LYMPHOCYTES # (AUTO) 0.7 X 10^3 (1.0-4.0); LYMPHOCYTES % (AUTO) 6 % (12-44); MONOCYTES # (AUTO) 0.4 X 10^3 (0.0-1.0); MONOCYTES % (AUTO) 3 % (0-12); NEUTROPHILS # (AUTO) 10.6 X 10^3 (1.8-7.8)
[2018-08-19 09:48] LABS: EOSINOPHILS % (AUTO) 1 % (0-10); NEUTROPHILS % (AUTO) 90 % (42-75)
--- OUTSIDE RECORDS SUMMARY | 2018-08-19 09:48 | XMS REPORT ---
Author Author CURTIS GLENN Organization [facility] Address [address] [place] [address] Care Team Providers Care Rand Cementer Name Role Phone HARSHSALVADOR GLENN Unavailable PROBLEMS Type Condition ICD9-CM Code HXB90-SO Code Onset Dates Condition Status SNOMED Code Problem Mixed hyperlipidemia E78.2 Active 653046183 Problem Vitamin D deficiency E55.9 Active 32816140 Problem Essential hypertension I10 Active 84080865 Problem Posttraumatic stress disorder F43.10 Active 09927554 Problem Mild intermittent asthma without complication J45.20 Active 472624677 Problem Generalized anxiety disorder F41.1 Active 45403297 Problem Gastroesophageal reflux disease, esophagitis presence not specified K21.9 Active 729013008 Problem Bipolar disorder, current episode mixed, moderate F31.62 Active 363244546 Problem Low back pain with sciatica, sciatica laterality unspecified, unspecified back pain laterality, unspecified chronicity M54.40 Active 379101608 Problem Panic disorder F41.0 Active 584649814 Problem Concussion without loss of consciousness, initial encounter S06.0X0A Active 79726617 Problem Nausea R11.0 Active 759396680 Problem Anxiety F41.9 Active 35264926 Problem Hematuria R31.9 Active 85195121 Problem Bipolar disorder F31.9 Active 27360007 Problem Multiple fractures T07.XXXA Active 414198354 Problem Acute right-sided low back pain with right-sided sciatica M54.41 Active 55650505 Problem Hospital discharge follow-up Z09 Active 619735824 Problem Hot flashes R23.2 Active 204580249 Problem History of IBS Z87.19 Active 52454276887701 Problem Breast tenderness N64.4 Active 10763656 Problem Primary insomnia F51.01 Active 270572917 Problem Hidradenitis suppurativa L73.2 Active 20421196 Problem Tobacco use Z72.0 Active 501232524 Problem Localized edema R60.0 Active 652483174 Problem Depression F32.9 Active 01619579 Problem Genital herpes simplex, unspecified site A60.00 Active 01650371 ALLERGIES No Information ENCOUNTERS Encounter Location Date Diagnosis [facility] [id number] [place] [address] 98126- 0740 Dec, [facility] [id number] [place] [address] 15207- 8371 Nov, [facility] [address] 92219- 5372 Nov, Panic disorder F41.0 ; Generalized anxiety disorder F41.1 and Bipolar disorder, current episode mixed, moderate F31.62 [place] [id number] [place] [address] 92500- 1853 Nov, Panic disorder F41.0 [place] [id number] [place] [address] 40205- 6323 Nov, Panic disorder F41.0 [facility] [id number] [place] [address] 74490- 2252 October, Panic disorder F41.0 [facility] [id number] [place] [address] 57782- 8044 October, Panic disorder F41.0 ; Generalized anxiety disorder F41.1 and Bipolar disorder, current episode mixed, moderate F31.62 [place] [id number] [place] [address] 22112- 1200 October, Panic disorder F41.0 [facility] [id number] [place] [address] 02094- 6791 Sep, Hospital discharge follow-up Z09 ; Concussion without loss of consciousness, initial encounter S06.0X0A and Nausea R11.0 [facility] [id number] [place] [address] 41840- 1371 Sep, [facility] [id number] [place] [address] 38602- 4603 Sep, Panic disorder F41.0 [place] [address] [address] 9492 Sep, [place] [id number] [place] [address] 16619- 8491 Sep, Well woman exam with routine gynecological exam Z01.419 ; Multiple fractures T07.XXXA ; Hot flashes R23.2 ; Essential hypertension I10 ; Mixed hyperlipidemia E78.2 ; Genital herpes simplex, unspecified site A60.00 ; Alkaline phosphatase elevation R74.8 ; Dysuria R30.0 ; Vitamin D deficiency E55.9 ; Tobacco use Z72.0 ; High risk sexual behavior Z72.51 and Encounter for immunization Z23 [place] [id number] [place] [address] 78587- 8982 Aug, Panic disorder F41.0 ; Generalized anxiety disorder F41.1 and Bipolar disorder, current episode mixed, moderate F31.62 [place] [id number] [place] [address] 06971- 7897 Aug, [place] [id number] [place] [address] 96884- 9735 Jul, Panic disorder F41.0 ; Generalized anxiety disorder F41.1 and Bipolar disorder, current episode mixed, moderate F31.62 [place] [id number] [place] [address] 94553- 0440 Jul, [place] [id number] [place] [address] 85667- 7974 Jul, [place] [id number] [place] [address] 80920- 1953 Jul, Effusion, right knee M25.461 ; Acute pain of right knee M25.561 and Acute pain of left knee M25.562 [place] [id number] [place] [address] 99499- 7876 Jun, Bipolar disorder, current episode mixed, moderate F31.62 ; Generalized anxiety disorder F41.1 and Panic disorder F41.0 [place] [id number] [place] [address] 72640- 8419 May, Bipolar disorder, current episode mixed, moderate F31.62 ; Generalized anxiety disorder F41.1 and Panic disorder F41.0 [facility] [id number] [place] [address] 92779- 6106 May, Bipolar disorder, current episode mixed, moderate F31.62 [place] [address] 02250- 0772 May, Bipolar disorder, current episode mixed, moderate F31.62 [place] [address] 799472- 2475 Apr, Bipolar disorder, current episode mixed, moderate F31.62 ; Generalized anxiety disorder F41.1 and Panic disorder F41.0 [place] [address] 80766- 0265 Mar, [place] [address] 25142- 3495 Mar, Bipolar disorder, current episode mixed, moderate F31.62 ; Generalized anxiety disorder F41.1 and Panic disorder F41.0 [place] [id number] [place] [address] 20787- 0438 27 Feb, 2017 [place] [id number] [place] [address] 03796- 1053 22 Feb, 2017 Posttraumatic stress disorder F43.10 [place] [id number] [place] [address] 86545- 8575 20 Feb, 2017 Gastroesophageal reflux disease, esophagitis presence not specified K21.9 [place] [address] 85974- 4190 13 Feb, 2017 [place] [id number] [place] [address] 12334- 3148 06 Feb, 2017 Knee pain, right anterior M25.561 [place] [address] 56280- 5116 05 Feb, 2017 HSV (herpes simplex virus) infection B00.9 [facility] [id number] [place] [address] 41351- 8521 Feb, [facility] [id number] [place] [address] 22961- 4541 Jan, [facility] [id number] [place] [address] 56180- 1756 Jan, Posttraumatic stress disorder F43.10 [facility] [id number] [place] [address] 15379- 8457 Jan, Foot pain, left M79.672 [facility] [id number] [place] [address] 54897- 8813 Jan, [facility] [id number] [place] [address] 65466- 5183 Jan, Lumbar radiculopathy, acute M54.16 ; Muscle spasm of back M62.830 and Right hip pain M25.551 [facility] [id number] [place] [address] 51161- 8857 Jan, Lumbar radiculopathy, acute M54.16 [facility] [id number] [place] [address] 46255- 3361 Jan, [facility] [id number] [place] [address] 76262- 0337 Jan, [facility] [id number] [place] [address] 30922- 2475 Dec, Lumbar radiculopathy, acute M54.16 ; Acute renal insufficiency N28.9 and Muscle spasm of back M62.830 [facility] [address] [address]- 1535 Dec, [facility] [id number] [place] [address] 51346- 4414 Dec, [facility] [address] [address]- 6617 Dec, [facility] [id number] [place] [address] 33665 -6775 Dec, Low back pain with sciatica, sciatica laterality unspecified, unspecified back pain laterality, unspecified chronicity M54.40 and Acute right-sided low back pain with right-sided sciatica M54.41 [place] [id number] [place] [address] 59021- 5812 Dec, Posttraumatic stress disorder F43.10 [place] [id number] [place] [address] 20044- 1911 Dec, [place] [id number] [place] [address] 86705- 3300 Dec, Pain in right thigh M79.651 and Acute right-sided low back pain without sciatica M54.5 [facility] [id number] [place] [address] 32292- 3180 Dec, Posttraumatic stress disorder F43.10 and Major depressive disorder, recurrent episode with anxious distress F33.9 [facility] [id number] [address]7016 Dec, [facility] [id number] [address]- 9132 Nov, [place] [id number] [place] [address] 32567- 0147 October, [facility] [id number] [place] [address] 71502- 4137 October, [place] [id number] [place] [address] 83449- 3183 October, Knee pain, right anterior M25.561 [facility] [address] [address]- 6815 October, Knee pain, right anterior M25.561 [facility] [id number] [address]- 7125 October, [facility] [id number] [place] [address] 57003- 7496 October, [facility] [id number] [address]- 1982 October, [facility] [id number] [place] [address] 94255 -0265 Sep, [facility] [id number] [place] [address] 62736- 5801 Sep, [facility] [id number] [place] [address] 10803- 5306 Sep, Essential hypertension I10 [facility] [id number] [place] [address] 94032- 3043 Sep, Essential hypertension I10 [facility] [id number] [place] [address] 81321- 7557 Sep, [facility] [id number] [place] [address] 49704- 5488 Sep, Posttraumatic stress disorder F43.10 and Major depressive disorder, recurrent episode with anxious distress F33.9 [facility] [id number] [place] [address] 41687- 5334 Sep, Multiple fractures T14.8 ; Alkaline phosphatase elevation R74.8 and Vitamin D deficiency E55.9 [facility] [address] [address]- 4805 Sep, [facility] [id number] [place] [address] 36557- 7884 Sep, Elevated serum creatinine R79.89 ; Fracture of foot, left, closed, initial encounter S92.902A and Alkaline phosphatase elevation R74.8 [facility] [address] [place] [address] 58896- 7102 Sep, Elevated serum creatinine R79.89 and Essential hypertension I10 [facility] [id number] [place] [address] 45153- 2967 Sep, [facility] [id number] [place] [address] 39537- 2504 Aug, Gastroesophageal reflux disease, esophagitis presence not specified K21.9 [facility] [id number] [place] [address] 08504- 7527 Aug, Essential hypertension I10 ; Fracture of foot, left, closed , initial encounter S92.902A and Alkaline phosphatase elevation R74.8 [facility] [address] 77372- 7363 Jul, Genital herpes simplex, unspecified site A60.00 [facility] [id number] [place] [address] 75004- 0643 Jul, Essential hypertension I10 [facility] [address] 65642- 3398 Jun, Cough R05 and Wheezing R06.2 [place] [id number] [place] [address] 33016- 1545 Jun, Essential hypertension I10 [facility] [id number] [place] [address] 12311- 4083 May, Essential hypertension I10 [facility] [id number] [place] [address] 06553- 5004 May, Posttraumatic stress disorder F43.10 and Major depressive disorder, recurrent episode with anxious distress F33.9 [facility] [id number] [place] [address] 47236- 3610 Apr, [facility] [id number] [place] [address] 42950- 0146 Apr, [facility] [id number] [place] [address] 07422- 0811 Apr, [facility] [address] 08562- 3142 Mar, [place] [address] 52902- 7203 Feb, [place] [address] 75142- 1576 Jan, [place] [address] 61601- 7375 Jan, Essential hypertension I10 ; Mixed hyperlipidemia [...] foot S92.302A [facility] [place] [address] 62733 -6831 Jan, Localized edema R60.0 [place] [address] 09773- 1811 Dec, [place] [address] 21824- 2463 Dec, [place] [address] 48409- 5868 Dec, [facility] [place] [address] 95345 -7688 Dec, Cough R05 ; Tobacco dependence F17.200 and Costochondritis , acute M94.0 [place] [address] 91292- 5239 Dec, Major depression, recurrent F33.9 ; Bipolar disorder, unspecified F31.9 and Posttraumatic stress disorder F43.10 [place] [address] 28092- 9136 Nov, [place] [address] [address]- 1561 Nov, [facility] [id number] [address]- 1410 October, [facility] [id number] [address]62 October, Acute upper respiratory infection, unspecified J06.9 [facility] [id number] [place] [address] 15346- 6279 October, [facility] [id number] [place] [address] 01217- 3213 Sep, Bipolar affective disorder, remission status unspecified F31.9 and Post-traumatic stress disorder F43.10 [facility] [id number] [address]- 1425 Sep, Bipolar disorder, unspecified F31.9 ; Posttraumatic stress disorder F43.10 and Major depression, recurrent F33.9 [facility] [address] [address]- 0776 Aug, Edema R60.9 ; Fatigue R53.83 and Polydipsia R63.1 [facility] [address] [address]- 7067 Aug, [facility] [id number] [address]- 0061 Aug, [facility] [id number] [address]- 3279 15 Jul, 2015 [facility] [id number] [address]- 3074 Jul, [facility] [id number] [address]- 7520 Jun, [facility] [id number] [address]- 2411 Jun, [facility] [id number] [place] [address] 31896- 8829 Jun, [place] [address] 67545- 2051 Jun, [place] [id number] [place] [address] 68832- 3589 May, Mixed hyperlipidemia E78.2 [place] [address] 12677- 0090 May, Well woman exam Z01.419 ; History of herpes simplex infection Z86.19 ; Papanicolaou smear Z12.4 ; History of depression Z86.59 ; History of anxiety Z86.59 ; Lipoma of other specified sites D17.79 ; Hidradenitis suppurativa L73.2 ; Routine screening for STI (sexually transmitted infection) Z11.3 and Tobacco use Z72.0 [place] [address] 32874- 1366 May, Hematuria R31.9 ; Essential hypertension I10 ; Pure hypercholesterolemia E78.0 and Hidradenitis L73.2 [place] [address] 62462- 0700 May, Upper respiratory symptom R09.89 and Allergic rhinitis J30.9 [place] [id number] [place] [address] 35163- 1478 May, [place] [id number] [place] [address] 11619- 8292 May, [place] [id number] [place] [address] 13002- 7720 May, Bipolar disorder, unspecified F31.9 ; Posttraumatic stress disorder F43.10 and Major depression, recurrent F33.9 [place] [id number] [place] [address] 45247- 5025 May, [place] [id number] [place] [address] 03099- 2182 May, [facility] [id number] [address]- 4076 Apr, [facility] [id number] [address]- 5756 Apr, [facility] [id number] [address]- 7586 Mar, [facility] [id number] [place] [address] 22533- 1586 Mar, [facility] [id number] [address]- 2996 Mar, [facility] [id number] [place] [address] 96535- 0866 Feb, Major depressive disorder, recurrent episode, moderate 296.32 and Post traumatic stress disorder (PTSD) 309.81 [facility] [id number] [place] [address] 33360- 6426 Feb, [facility] [id number] [address]- 5240 Feb, [facility] [id number] [place] [address] 76226- 0396 Jan, Cough 786.2 [facility] [id number] [place] [address] 86478- 4046 Jan, Depression, major, recurrent, moderate 296.32 and Post traumatic stress disorder (PTSD) 309.81 [facility] [id number] [address]- 1176 Jan, [facility] [id number] [address]- 5516 Dec, [facility] [id number] [address]- 0726 Dec, Generalized anxiety disorder 300.02 and Depression, major, recurrent, moderate 296.32 [facility] [id number] [address]- 7256 14 Dec, 2014 [facility] [id number] [address]- 7343 Dec, High risk medication use V58.69 [facility] [id number] [address] 2546 Dec, High risk medication use V58.69 [facility] [id number] [place] [address] 93723- 8606 Dec, [facility] [id number] [place] [address] 17931- 5880 Nov, Generalized anxiety disorder 300.02 and Major depressive disorder, recurrent episode, moderate 296.32 [facility] [id number] [id number] Nov, Dental examination V72.2 [facility] [id number] [place] [address] [id number] Nov, Dental examination V72.2 [facility] [id number] [address]- 5686 Nov, [facility] [id number] [place] [address] [id number] Nov, Dental examination V72.2 [facility] [address] [place] [address] [id number] Nov, Dental examination V72.2 [facility] [id number] [address]- 6575 October, Major depressive disorder, recurrent episode, moderate 296.32 and Generalized anxiety disorder 300.02 [facility] [id number] [address]- 5716 October, [facility] [id number] October, [facility] [id number] [address] October, [facility] [place] [facility] [address] [id number] [place] [address] Sep, [facility] [place] [facility] [address] [id number] [place] [address] Sep, [facility] [place] [facility] [address] [id number] [place] [address] Aug, [facility] [place] [facility] [address] [id number] [place] [address] Aug, [facility] [place] [facility] [address] [id number] [place] [address] Aug, [facility] [place] [facility] [address] [id number] [place] [address] Aug, [facility] [place] [facility] [address] [id number] [place] [address] Aug, [facility] [place] [facility] [address] [id number] [place] [address] Aug, [facility] [place] [facility] [address] [id number] [place] [address] Aug, [facility] [place] [facility] [address] [id number] [place] [address] Jul, [facility] [place] [facility] [address] [id number] [place] [address] Jul, [facility] [place] [facility] [address] [id number] [place] [address] Jul, 2014 [facility] [place] [facility] [address] [id number] [place] [address] Jul, [facility] [place] [facility] [address] [id number] [place] [address] Jul, [facility] [place] [facility] [address] [id number] [place] [address] Jul, [facility] [place] [facility] [address] [id number] [place] [address] Jul, [facility] [address] [id number] [place] [address] Jul, [facility] [place] [facility] [address] [id number] [place] [address] Jul, [facility] [place] [facility] [address] [id number] [place] [address] Jun, [facility] [place] [facility] [address] [id number] [place] [address] Jun, [facility] [place] [facility] [address] [id number] [place] [address] Jun, [facility] [place] [facility] [address] [id number] [place] [address] Jun, [facility] [place] [facility] [address] [id number] [place] [address] Jun, [facility] [place] [facility] [address] [id number] [place] [address] Jun, [facility] [place] [facility] [address] [id number] [place] [address] Jun, [facility] [place] [facility] [address] [id number] [place] [address] Jun, [facility] [place] [facility] [address] [id number] [place] [address] Jun, [facility] [place] [facility] [address] [id number] [place] [address] Jun, [facility] [place] [facility] [address] [id number] [place] [address] 3538 Jun, [facility] [place] [facility] [address] [id number] [place] [address] 3536 Jun, [facility] [place] [facility] [address] [id number] [place] [address] 9[address] Jun, [facility] [place] [facility] [address] [id number] [place] [address]- 0061 Jun, [facility] [place] [facility] [address] [id number] [place] [address] 0037 Jun, [facility] [place] [facility] [address] [id number] [place] [address] 7019 Jun, [facility] [place] [facility] [address] [id number] [place] [address] 3446 Jun, [facility] [place] [facility] [address] [id number] [place] [address] 4134 Jun, [facility] [place] [facility] [address] [id number] [place] [address] 1530 Jun, [facility] [place] [facility] [address] [id number] [place] [address] 6086 Jun, [facility] [place] [facility] [address] [id number] [place] [address] 4617 Jun, [facility] [place] [facility] [address] [id number] [place] [address]- 6148 Jun, [facility] [place] [facility] [address] [id number] [place] [address]- 6478 Jun, [facility] [place] [facility] [address] [id number] [place] [address]- 4300 Jun, [facility] [place] [facility] [address] [id number] [place] [address]- 7994 Jun, [facility] [place] [facility] [address] [id number] [place] [address]- 2239 May, [facility] [place] [facility] [address] [id number] [place] [address]- 9068 May, [facility] [place] [facility] [address] [id number] [place] [address]- 4586 May, [facility] [place] [facility] [address] [id number] [place] [address]- 4500 May, [facility] [place] [facility] [address] [id number] [place] [address]- 2189 May, [facility] [place] [facility] [address] [id number] [place] [address] May, [facility] [place] [facility] [address] [id number] [place] [address]- 2766 May, [facility] [place] [facility] [address] [id number] [place] [address]- 8681 May, [facility] [place] [facility] [address] [id number] [place] [address]- 3346 May, [facility] [place] [facility] [address] [id number] [place] [address]- 8495 May, [facility] [place] [facility] [address] [id number] [place] [address]- 2004 May, [facility] [place] [facility] [address] [id number] [place] [address]- 0543 May, [facility] [place] [facility] [address] [id number] [place] [address]- 2959 May, [facility] [place] [facility] [address] [id number] [place] [address]- 5580 May, [facility] [place] [facility] [address] [id number] [place] [address]- 0347 May, [facility] [place] [facility] [address] [id number] [place] [address]- 2516 May, [facility] [place] [facility] [address] [id number] [place] [address] May, [facility] [place] [facility] [address] [id number] [place] [address] May, [facility] [place] [facility] [address] [id number] [place] [address]- 5959 Apr, [facility] [place] [facility] [address] [id number] [place] [address]- 5933 Apr, [facility] [place] [facility] [address] [id number] [place] [address]- 5303 Apr, [facility] [place] [facility] [address] [id number] [place] [address]- 8614 Apr, [facility] [place] [facility] [address] [id number] [place] [address]- 8789 Apr, [facility] [place] [facility] [address] [id number] [place] [address]- 7470 Apr, [facility] [place] [facility] [address] [id number] [place] [address]- 5925 Apr, [facility] [place] [facility] [address] [id number] [place] [address]- 1222 Apr, [facility] [place] [facility] [address] [id number] [place] [address]- 6550 Mar, [facility] [place] [facility] [address] [id number] [place] [address]- 4625 Mar, [facility] [place] [facility] [address] [id number] [place] [address]- 7338 Feb, [facility] [place] [facility] [address] [id number] [place] [address]- 3504 Feb, [facility] [place] [facility] [address] [id number] [place] [address]- 6423 12 Feb, 2014 [facility] [place] [facility] [address] [id number] [place] [address]- 2549 12 Feb, 2014 [facility] [place] [facility] [address] [id number] [place] [address]- 8378 Feb, [facility] [place] [facility] [address] [id number] [place] [address]- 7519 12 Feb, 2014 [facility] [place] [facility] [address] [id number] [place] [address]- 8501 Feb, [facility] [place] [facility] [address] [id number] [place] [address]- 4103 Feb, [facility] [place] [facility] [address] [id number] [place] [address]- 2461 Feb, [facility] [place] [facility] [address] [id number] [place] [address]- 5152 Feb, [facility] [place] [facility] [address] [id number] [place] [address]- 7516 Jan, [facility] [place] [facility] [address] [id number] [place] [address]- 2384 Jan, [facility] [place] [facility] [address] [id number] [place] [address]- 4091 Jan, [facility] [place] [facility] [address] [id number] [place] [address]- 1663 Jan, [facility] [place] [facility] [address] [id number] [place] [address]- 0878 Jan, [facility] [place] [facility] [address] [id number] [place] [address]- 8726 Jan, [facility] [place] [facility] [address] [id number] [place] [address]- 5057 Jan, [facility] [place] [facility] [address] [id number] [place] [address]- 4048 Jan, [facility] [place] [facility] [address] [id number] [place] [address]- 2028 Jan, [facility] [place] [facility] [address] [id number] [place] [address]- 4019 Jan, [facility] [place] [facility] [address] [id number] [place] [address]- 0413 Jan, [facility] [place] [facility] [address] [id number] [place] [address]- 6260 Jan, [facility] [place] [facility] [address] [id number] [place] [address]- 2226 Jan, [facility] [place] [facility] [address] [id number] [place] [address]- 8242 Dec, [facility] [place] [facility] [address] [id number] [place] [address]- 4875 Dec, [facility] [place] [facility] [address] [id number] [place] [address]- 7347 Dec, [facility] [place] [facility] [address] [id number] [place] [address]- 2134 Dec, [facility] [place] [facility] [address] [id number] [place] [address]- 6863 Dec, [facility] [place] [facility] [address] [id number] [place] [address]- 1553 Dec, [facility] [place] [facility] [address] [id number] [place] [address]- 5001 Dec, [facility] [place] [facility] [address] [id number] [place] [address]- 8003 Dec, [facility] [place] [facility] [address] [id number] [place] [address]- 4693 Dec, [facility] [place] [facility] [address] [id number] [place] [address]- 3696 Dec, [facility] [place] [facility] [address] [id number] [place] [address]- 0998 Dec, [facility] [place] [facility] [address] [id number] [place] [address]- 2215 Dec, [facility] [place] [facility] [address] [id number] [place] [address]- 9076 Dec, [facility] [place] [facility] [address] [id number] [place] [address]- 6170 Dec, [facility] [place] [facility] [address] [id number] [place] [address]- 8485 Nov, [facility] [place] [facility] [address] [id number] [place] [address]- 0981 Nov, [facility] [place] [facility] [address] [id number] [place] [address]- 3832 Nov, [facility] [place] [facility] [address] [id number] [place] [address]- 3705 Nov, [facility] [place] [facility] [address] [id number] [place] [address]- 0552 Nov, [facility] [place] [facility] [address] [id number] [place] [address]- 2400 Nov, [facility] [place] [facility] [address] [id number] [place] [address]- 6518 Nov, [facility] [place] [facility] [address] [id number] [place] [address]- 3514 Nov, [facility] [place] [facility] [address] [id number] [place] [address]- 7249 October, [facility] [place] [facility] [address] [id number] [place] [address]- 3599 October, [facility] [place] [facility] [address] [id number] [place] [address]- 9128 October, [facility] [place] [facility] [address] [id number] [place] [address]- 0809 October, [facility] [place] [facility] [address] [id number] [place] [address]- 9164 October, [facility] [place] [facility] [address] [id number] [place] [address]- 3541 October, [facility] [place] [facility] [address] [id number] [place] [address]- 4613 October, [facility] [place] [facility] [address] [id number] [place] [address]- 0102 October, [facility] [place] [facility] [address] [id number] [place] [address]- 9928 October, [facility] [place] [facility] [address] [id number] [place] [address]- 2416 October, [facility] [place] [facility] [address] [id number] [place] [address]- 3796 October, [facility] [place] [facility] [address] [id number] [place] [address]- 5886 October, [facility] [place] [facility] [address] [id number] [place] [address]- 4288 October, [facility] [place] [facility] [address] [id number] [place] [address]- 9379 October, [facility] [place] [facility] [address] [id number] [place] [address]- 5321 October, [facility] [place] [facility] [address] [id number] [place] [address]- 1045 October, [facility] [place] [facility] [address] [id number] [place] [address]- 9274 Sep, [facility] [place] [facility] [address] [id number] [place] [address]- 7163 Sep, [facility] [place] [facility] [address] [id number] [place] [address]- 5982 Sep, [facility] [place] [facility] [address] [id number] [place] [address]- 0341 Sep, [facility] [place] [facility] [address] [id number] [place] [address]- 0136 Sep, [facility] [place] [facility] [address] [id number] [place] [address]- 6448 Sep, [facility] [place] [facility] [address] [id number] [place] [address]- 8542 Sep, [facility] [place] [facility] [address] [id number] [place] [address]- 5172 Sep, [facility] [place] [facility] [address] [id number] [place] [address]- 7529 Sep, [facility] [address] [id number] [place] [address]- 7990 Sep, [facility] [place] [facility] [address] [id number] [place] [address]- 8181 Sep, [facility] [address] [id number] [place] [address]- 0960 Sep, [facility] [place] [facility] [address] [id number] [place] [address]- 9615 Sep, [facility] [place] [facility] [address] [id number] [place] [address]- 8998 Sep, [facility] [place] [facility] [address] [id number] [place] [address]- 8535 Sep, [facility] [place] [facility] [address] [id number] [place] [address]- 9602 Sep, [facility] [address] [id number] [place] [address]- 4957 Sep, [facility] [place] [facility] [address] [id number] [place] [address]- 2595 Sep, [facility] [address] [id number] [place] [address]- 7883 Sep, [facility] [place] [facility] [address] [id number] [place] [address]- 8215 Aug, [facility] [place] [facility] [address] [id number] [place] [address]- 2395 Aug, [facility] [place] [facility] [address] [id number] [place] [address]- 9672 Aug, [facility] [place] [facility] [address] [id number] [place] [address]- 3047 Aug, [facility] [place] [facility] [address] [id number] [place] [address]- 8097 Jul, [facility] [place] [facility] [address] [id number] [place] [address]- 4766 Jul, [facility] [place] [facility] [address] [id number] [place] [address]- 4366 Jul, [facility] [place] [facility] [address] [id number] [place] [address]- 2982 Jul, [facility] [place] [facility] [address] [id number] [place] [address]- 8744 Jul, [facility] [place] [facility] [address] [id number] [place] [address]- 0218 Jul, [facility] [place] [facility] [address] [id number] [place] [address]- 3978 Jul, [facility] [place] [facility] [address] [id number] [place] [address]- 2224 Jul, [facility] [place] [facility] [address] [id number] [place] [address]- 5520 Jul, [facility] [place] [facility] [address] [id number] [place] [address]- 0436 Jul, [facility] [place] [facility] [address] [id number] [place] [address]- 6404 Jul, [facility] [place] [facility] [address] [id number] [place] [address]- 7671 Jul, [facility] [place] [facility] [address] [id number] [place] [address]- 7799 Jun, [facility] [place] [facility] [address] [id number] [place] [address]- 7744 Jun, [facility] [place] [facility] [address] [id number] [place] [address]- 4260 Jun, [facility] [place] [facility] [address] [id number] [place] [address]- 5554 Jun, [facility] [place] [facility] [address] [id number] [place] [address]- 2010 16 Jun, 2013 [facility] [address] [id number] [place] [address]- 0358 Jun, [facility] [place] [facility] [address] [id number] [place] [address]- 3674 May, [facility] [address] [id number] [place] [address]- 4065 May, [facility] [place] [facility] [address] [id number] [place] [address]- 0594 Apr, [facility] [address] [id number] [place] [address]- 9755 Apr, [facility] [address] [id number] [place] [address]- 7539 19 Apr, 2013 [facility] [place] [facility] [address] [id number] [place] [address]- 7792 19 Apr, 2013 [facility] [address] [id number] [place] [address]- 5629 18 Apr, 2013 [facility] [place] [facility] [address] [id number] [place] [address]- 0549 18 Apr, 2013 [facility] [address] [id number] [place] [address]- 0734 17 Apr, 2013 [facility] [place] [facility] [address] [id number] [place] [address]- 8241 15 Apr, 2013 [facility] [place] [facility] [address] [id number] [place] [address]- 0402 15 Apr, 2013 [facility] [place] [facility] [address] [id number] [place] [address]- 6141 15 Apr, 2013 [facility] [place] [facility] [address] [id number] [place] [address]- 7708 15 Apr, 2013 [facility] [place] [facility] [address] [id number] [place] [address]- 2475 Apr, [facility] [place] [facility] [address] [id number] [place] [address]- 4901 13 Apr, 2013 [facility] [place] [facility] [address] [id number] [place] [address]- 0394 31 Mar, 2013 [facility] [place] [facility] [address] [id number] [place] [address]- 5170 31 Mar, 2013 [facility] [place] [facility] [address] [id number] [place] [address]- 3511 Mar, [facility] [place] [facility] [address] [id number] [place] [address]- 3818 25 Mar, 2013 [facility] [place] [facility] [address] [id number] [place] [address]- 8972 Mar, [facility] [place] [facility] [address] [id number] [place] [address]- 1088 17 Mar, 2013 [facility] [place] [facility] [address] [id number] [address]- 9199 14 Mar, 2013 [facility] [place] [facility] [address] [id number] [place] [address]- 3409 14 Mar, 2013 [facility] [place] [facility] [address] [id number] [address]- 9677 Mar, [facility] [place] [facility] [address] [id number] [place] [address]- 5847 Mar, [facility] [place] [facility] [address] [id number] [place] [address]- 1857 02 Mar, 2013 [facility] [place] [facility] [address] [id number] [place] [address]- 8904 30 Feb, 2013 [facility] [place] [facility] [address] [id number] [place] [address]- 0975 28 Feb, 2013 [facility] [place] [facility] [address] [id number] [place] [address]- 2799 27 Feb, 2013 [facility] [place] [facility] [address] [id number] [place] [address]- 6150 27 Feb, 2013 [facility] [address] [id number] [place] [address]- 5014 20 Feb, 2013 [facility] [place] [facility] [address] [id number] [place] [address]- 0570 10 Feb, 2013 [facility] [address] [id number] [place] [address]- 9076 Jan, [facility] [place] [facility] [address] [id number] [place] [address]- 5302 Jan, [facility] [place] [facility] [address] [id number] [place] [address]- 8330 Dec, [facility] [place] [facility] [address] [id number] [place] [address]- 2588 Dec, [facility] [address] [id number] [place] [address]- 9848 Dec, [facility] [place] [facility] [address] [id number] [place] [address]- 2714 Dec, [facility] [place] [facility] [address] [id number] [place] [address]- 2405 Nov, [facility] [place] [facility] [address] [id number] [place] [address]- 0485 Nov, [facility] [place] [facility] [address] [id number] [place] [address]- 6769 Nov, [facility] [place] [facility] [address] [id number] [place] [address]- 6512 October, [facility] [place] [facility] [address] [id number] [place] [address]- 3673 October, [facility] [place] [facility] [address] [id number] [place] [address]- 1674 October, [facility] [place] [facility] [address] [id number] [place] [address]- 1499 October, [facility] [place] [facility] [address] [id number] [place] [address]- 3019 October, [facility] [address] [id number] [place] [address] Sep, [facility] [place] [facility] [address] [id number] [place] [address] Sep, [facility] [place] [facility] [address] [id number] [place] [address] Aug, [facility] [place] [facility] [address] [id number] [place] [address] Aug, [facility] [place] [facility] [address] [id number] [place] [address] Aug, [facility] [address] [id number] [place] [address] Aug, [facility] [address] [id number] [place] [address] Aug, [facility] [address] [id number] [place] [address] Jul, [facility] [address] [id number] [place] [address] Jul, [facility] [place] [facility] [address] [id number] [place] [address] Jul, [facility] [place] [facility] [address] [id number] [place] [address] Jul, [facility] [place] [facility] [address] [id number] [place] [address] Jun, [facility] [place] [facility] [address] [id number] [place] [address] Jun, [facility] [place] [facility] [address] [id number] [place] [address] Jun, [facility] [place] [facility] [address] [id number] [address] Jun, [facility] [place] [facility] [address] [id number] [place] [address] Jun, [facility] [place] [facility] [address] [id number] [place] [address]- [address] Jun, [facility] [place] [facility] [address] [id number] [place] [address] Jun, [facility] [place] [facility] [address] [id number] [place] [address] 65[address] Jun, [facility] [place] [facility] [address] [id number] [place] [address] Jun, [facility] [place] [facility] [address] [id number] [place] [address]697 Jun, [facility] [place] [facility] [address] [id number] [place] [address] Jun, [facility] [place] [facility] [address] [id number] [place] [address] May, [facility] [place] [facility] [address] [id number] [place] [address] May, [facility] [place] [facility] [address] [id number] [place] [address] Apr, [facility] [place] [facility] [address] [id number] [address] Apr, [facility] [place] [facility] [address] [id number] [address] Mar, [facility] [place] [facility] [address] [id number] [place] [address] Mar, [facility] [place] [facility] [address] [id number] [place] [address] Mar, [facility] [place] [facility] [address] [id number] [place] [address] Mar, [facility] [place] [facility] [address] [id number] [place] [address] 17 Mar, 2012 [facility] [place] [facility] [address] [id number] [place] [address] Mar, [facility] [place] [facility] [address] [id number] [place] [address] Mar, [facility] [place] [facility] [address] [id number] [place] [address]- [address] Mar, [facility] [place] [facility] [address] [id number] [place] [address] Mar, [facility] [place] [facility] [address] [id number] [place] [address] Feb, [facility] [place] [facility] [address] [id number] [place] [address] Jan, [facility] [place] [facility] [address] [id number] [place] [address] Jan, [facility] [place] [facility] [address] [id number] [place] [address] Dec, [facility] [place] [facility] [address] [id number] [place] [address] 93[address] Dec, [facility] [place] [facility] [address] [id number] [place] [address] Dec, [facility] [place] [facility] [address] [id number] [place] [address] Nov, [facility] [place] [facility] [address] [id number] [place] [address] Nov, [facility] [place] [facility] [address] [id number] [place] [address]- [address] Nov, [facility] [place] [facility] [address] [id number] [place] [address]- [address] Nov, [facility] [place] [facility] [address] [id number] [place] [address] October, [facility] [address] [id number] [place] [address] October, [facility] [place] [facility] [address] [id number] [place] [address] Sep, [facility] [place] [facility] [address] [id number] [place] [address] Sep, [facility] [place] [facility] [address] [id number] [place] [address]- 2049 Aug, [facility] [place] [facility] [address] [id number] [place] [address]- 2571 Jul, [facility] [place] [facility] [address] [id number] [place] [address]- 1741 Jul, [facility] [place] [facility] [address] [id number] [place] [address]- [address] Jul, [facility] [place] [facility] [address] [id number] [place] [address] Jul, [facility] [place] [facility] [address] [id number] [place] [address]107 Jun, [facility] [place] [facility] [address] [id number] [place] [address]- 1698 May, [facility] [place] [facility] [address] [id number] [place] [address]65 15 May, 2011 [facility] [place] [facility] [address] [id number] [place] [address]- 269[address] 15 May, 2011 [facility] [place] [facility] [address] [id number] [place] [address]- [address] 13 May, 2011 [facility] [place] [facility] [address] [id number] [place] [address]- 7983 08 May, 2011 [facility] [place] [facility] [address] [facility] [id number] [place] [address]- [address] 14 Apr, 2011 [facility] [place] [facility] [address] [id number] [place] [address]- [address]77 14 Apr, 2011 [facility] [address] [id number] [place] [address]- [address] 14 Apr, 2011 [facility] [place] [facility] [address] [id number] [place] [address]- 9875 07 Apr, 2011 [facility] [place] [facility] [address] [id number] [place] [address]- 9446 02 Apr, 2011 [facility] [place] [facility] [address] [id number] [place] [address]- 4660 26 Mar, 2011 [facility] [place] [facility] [address] [id number] [place] [address]- [address]326 25 Mar, 2011 [facility] [place] [facility] [address] [id number] [place] [address]- 5980 14 Mar, 2011 [facility] [place] [facility] [address] [id number] [place] [address]- 7611 14 Mar, 2011 [facility] [place] [facility] [address] [id number] [place] [address]- [id number] 13 Mar, 2011 [facility] [place] [facility] [address] [id number] [place] [address] 11 Mar, 2011 [facility] [place] [facility] [address] [id number] [place] [address] 11 Mar, 2011 [facility] [place] [facility] [address] [id number] [place] [address] 11 Mar, 2011 [facility] [place] [facility] [address] [id number] [place] [address] 14 Feb, 2011 [facility] [place] [facility] [address] [id number] [place] [address] 16 May, 2010 [facility] [place] [facility] [address] [id number] [place] [address] 16 May, 2010 [facility] [place] [facility] [address] [id number] [place] [id number] May, [facility] [address] [facility] [id number] [place] [address] Apr, [facility] [address] [facility] [id number] [place] [address] Mar, IMMUNIZATIONS No Known Immunizations SOCIAL HISTORY Never Assessed REASON FOR VISIT f/Robb DOMINGUEZ PLAN OF CARE Activity Details Follow Up 4 Weeks Reason: VITAL SIGNS Height 69 in 2017-06-07 Weight 253.9 lbs 2017-06-07 Heart Rate 76 bpm 2017-06-07 Respiratory Rate 20 2017-06-07 BMI 37.49 kg/m2 2017-06-07 Blood pressure systolic 110 mmHg 2017-06-07 Blood pressure diastolic 72 mmHg 2017-06-07 MEDICATIONS Medication Instructions Dosage Frequency Start Date End Date Duration Status Hydrochlorothiazide 25 MG Orally Once a day 1/2 tablet 24h 180 days Active Xanax 0.5 MG Orally daily (part of tapering dose) 2.5 tablets Apr, 30 days Active Lisinopril 40 mg Orally Once a day 1 tablet 24h 90 days Active Ibuprofen 800 MG Orally Three times a day 1 tablet with food or milk 8h October, Active Neurontin 300 MG Orally two times a day 3 capsules 12h Aug, 30 days Active Alprazolam 2 MG Orally Twice a day (part of taper dose) 1 tablet 30 days Active Tizanidine HCl 4 MG Orally Three times a day 1 tablet as needed 8h Dec, Not-Taking Acyclovir 400 MG Orally Twice a day 1 tablet 12h 30 Active Seroquel 200 MG Orally every bedtime 1 tablet May, 30 days Active Amitriptyline HCl 25 MG Orally at night 1 tablet Dec, 30 days Active Venlafaxine HCl 75 MG Orally two tablets in am and one tablet midday 1 tablet Dec, 30 days Active ProAir HFA 108 (90 Base) MCG/ACT Inhalation every 4 hrs 2 puffs as needed 4h Jun, 1 month Active Omeprazole 20 mg Orally Once a day 1 capsule 24h 90 days Active Norvasc 5 mg Orally Once a day 1 tablet 24h Sep, 30 day(s) Not -Taking Seroquel 25 MG Orally three times a day as [...]
--- OUTSIDE RECORDS SUMMARY | 2018-08-19 09:50 | XMS REPORT ---
Author Author CURTIS GLENN Organization [facility] Address [address] [place] [address] Care Team Providers Care Supervisor Tan Room Name Role Phone HARSHSALVADOR GLENN Unavailable PROBLEMS Type Condition ICD9-CM Code HTW30-BO Code Onset Dates Condition Status SNOMED Code Problem Mixed hyperlipidemia E78.2 Active 898544884 Problem Vitamin D deficiency E55.9 Active 74159554 Problem Essential hypertension I10 Active 91146265 Problem Posttraumatic stress disorder F43.10 Active 09988822 Problem Mild intermittent asthma without complication J45.20 Active 921342191 Problem Generalized anxiety disorder F41.1 Active 30316906 Problem Gastroesophageal reflux disease, esophagitis presence not specified K21.9 Active 475661819 Problem Bipolar disorder, current episode mixed, moderate F31.62 Active 544104572 Problem Low back pain with sciatica, sciatica laterality unspecified, unspecified back pain laterality, unspecified chronicity M54.40 Active 423063631 Problem Panic disorder F41.0 Active 911240235 Problem Concussion without loss of consciousness, initial encounter S06.0X0A Active 00582926 Problem Nausea R11.0 Active 059133951 Problem Anxiety F41.9 Active 60945602 Problem Hematuria R31.9 Active 62827533 Problem Bipolar disorder F31.9 Active 09241213 Problem Multiple fractures T07.XXXA Active 662491965 Problem Acute right-sided low back pain with right-sided sciatica M54.41 Active 48555787 Problem Hospital discharge follow-up Z09 Active 887556145 Problem Hot flashes R23.2 Active 761589424 Problem History of IBS Z87.19 Active 93868241069333 Problem Breast tenderness N64.4 Active 34753429 Problem Primary insomnia F51.01 Active 276515190 Problem Hidradenitis suppurativa L73.2 Active 52920055 Problem Tobacco use Z72.0 Active 691460743 Problem Localized edema R60.0 Active 787618629 Problem Depression F32.9 Active 34489457 Problem Genital herpes simplex, unspecified site A60.00 Active 73840688 ALLERGIES No Information ENCOUNTERS Encounter Location Date Diagnosis [place] [address] [address] Nov, [place] [address] [address] Nov, [place] [address] [address] Nov, Panic disorder F41.0 [place] [address] [address]- 8450 October, Panic disorder F41.0 [place] [address] 87[address]- 7548 October, Panic disorder F41.0 ; Generalized anxiety disorder F41.1 and Bipolar disorder, current episode mixed, moderate F31.62 [place] [address] [place] [id number] [place] [address] 76452- 1635 October, Panic disorder F41.0 [place] [address] 31599- 1647 Sep, Hospital discharge follow-up Z09 ; Concussion without loss of consciousness, initial encounter S06.0X0A and Nausea R11.0 [place] [address] [place] [id number] [place] [address] 80099- 9946 Sep, [place] [address] 86275- 4236 Sep, Panic disorder F41.0 [place] [address] [place] [id number] [place] [address] 42960- 7138 Sep, [place] [address] 7[address]75- [address] Sep, Well woman exam with routine gynecological exam Z01.419 ; Multiple fractures T07.XXXA ; Hot flashes R23.2 ; Essential hypertension I10 ; Mixed hyperlipidemia E78.2 ; Genital herpes simplex, unspecified site A60.00 ; Alkaline phosphatase elevation R74.8 ; Dysuria R30.0 ; Vitamin D deficiency E55.9 ; Tobacco use Z72.0 ; High risk sexual behavior Z72.51 and Encounter for immunization Z23 [place] [id number] [place] [address] 56603- 2612 Aug, Panic disorder F41.0 ; Generalized anxiety disorder F41.1 and Bipolar disorder, current episode mixed, moderate F31.62 [place] [address] [place] [id number] [place] [address] 94765- 4389 Aug, [place] [address] 59386- 8416 Jul, Panic disorder F41.0 ; Generalized anxiety disorder F41.1 and Bipolar disorder, current episode mixed, moderate F31.62 [place] [address] [place] [id number] [place] [address] 63410- 5204 Jul, [place] [address] [place] [id number] [place] [address] 43717- 1728 Jul, [place] [address] 21672- 1870 Jul, Effusion, right knee M25.461 ; Acute pain of right knee M25.561 and Acute pain of left knee M25.562 [place] [address] [place] [id number] [place] [address] 82066- 9834 Jun, Bipolar disorder, current episode mixed, moderate F31.62 ; Generalized anxiety disorder F41.1 and Panic disorder F41.0 [place] [address] [place] [id number] [place] [address] 57398- 4685 May, Bipolar disorder, current episode mixed, moderate F31.62 ; Generalized anxiety disorder F41.1 and Panic disorder F41.0 [place] [id number] [place] [address] 54303- 2304 May, Bipolar disorder, current episode mixed, moderate F31.62 [facility] [id number] [place] [address] 25898- 3967 04 May, 2017 Bipolar disorder, current episode mixed, moderate F31.62 [facility] [address] [place] [id number] [place] [address] 87100- 3944 Apr, Bipolar disorder, current episode mixed, moderate F31.62 ; Generalized anxiety disorder F41.1 and Panic disorder F41.0 [place] [address] [place] [id number] [place] [address] 68020- 0470 Mar, [place] [address] [place] [id number] [place] [address] 50639- 5142 Mar, Bipolar disorder, current episode mixed, moderate F31.62 ; Generalized anxiety disorder F41.1 and Panic disorder F41.0 [place] [address] [place] [id number] [place] [address] 17385- 5443 Feb, [place] [address] 47084- 6189 Feb, Posttraumatic stress disorder F43.10 [place] [address] [place] [id number] [place] [address] 11145- 1139 20 Feb, 2017 Gastroesophageal reflux disease, esophagitis presence not specified K21.9 [place] [address] [place] [id number] [place] [address] 00713- 0507 Feb, [place] [address] [place] [id number] [place] [address] 12713- 7718 06 Feb, 2017 Knee pain, right anterior M25.561 [place] [address] [place] [id number] [place] [address] 67614- 2910 Feb, HSV (herpes simplex virus) infection B00.9 [facility] [address] [place] [id number] [place] [address] 62158- 7340 Feb, [facility] [address] [place] [id number] [place] [address] 32710- 2777 Jan, [facility] [address] [place] [id number] [place] [address] 49745- 3548 Jan, Posttraumatic stress disorder F43.10 [facility] [address] [place] [id number] [place] [address] 49406- 2801 Jan, Foot pain, left M79.672 [facility] [address] [place] [id number] [place] [address] 31914- 9711 Jan, [facility] [address] [place] [id number] [place] [address] 21245- 8428 Jan, Lumbar radiculopathy, acute M54.16 ; Muscle spasm of back M62.830 and Right hip pain M25.551 [facility] [address] [place] [id number] [place] [address] 82277- 8081 Jan, Lumbar radiculopathy, acute M54.16 [place] [address] [place] [id number] [place] [address] 22035- 6028 Jan, [facility] [address] [place] [id number] [place] [address] 40285- 2341 Jan, [facility] [address] [place] [id number] [place] [address] 92149- 5049 Dec, Lumbar radiculopathy, acute M54.16 ; Acute renal insufficiency N28.9 and Muscle spasm of back M62.830 [facility] [address] [place] [id number] [place] [address] 52724- 3485 Dec, [facility] [address] [place] [id number] [place] [address] 79291- 1178 Dec, [facility] [address] [place] [id number] [place] [address] 52616- 7973 Dec, [facility] [id number] [place] [address] 06946 -9629 Dec, Low back pain with sciatica, sciatica laterality unspecified, unspecified back pain laterality, unspecified chronicity M54.40 and Acute right-sided low back pain with right-sided sciatica M54.41 [facility] [address] [address]- 3231 12 Dec, 2016 Posttraumatic stress disorder F43.10 [facility] [address] [address]- 4388 11 Dec, 2016 [facility] [address] [address]- 5869 Dec, Pain in right thigh M79.651 and Acute right-sided low back pain without sciatica M54.5 [facility] [address] [address]- 1590 Dec, Posttraumatic stress disorder F43.10 and Major depressive disorder, recurrent episode with anxious distress F33.9 [facility] [address] [address] Dec, [facility] [address] [address]- 3838 Nov, [facility] [address] [address]- 1197 October, [facility] [id number] [place] [address] 09530- 1466 October, [facility] [address] [address]- 4045 October, Knee pain, right anterior M25.561 [facility] [address] [address]- 8639 October, Knee pain, right anterior M25.561 [facility] [address] [address]- 5505 October, [facility] [address] [address]- 7637 October, [facility] [address] [address]- 6289 October, [facility] [id number] [place] [address] 73303 -6515 Sep, [facility] [address] [place] [id number] [place] [address] 69987- 1476 Sep, [facility] [address] [place] [id number] [place] [address] 61807- 6507 Sep, Essential hypertension I10 [facility] [address] 23777- 3354 Sep, Essential hypertension I10 [facility] [address] [place] [id number] [place] [address] 20045- 3627 Sep, [facility] [address] [place] [id number] [place] [address] 55301- 6645 Sep, Posttraumatic stress disorder F43.10 and Major depressive disorder, recurrent episode with anxious distress F33.9 [facility] [address] [place] [id number] [place] [address] 68882- 5590 Sep, Multiple fractures T14.8 ; Alkaline phosphatase elevation R74.8 and Vitamin D deficiency E55.9 [facility] [address] [place] [id number] [place] [address] 92763- 6389 Sep, [facility] [address] [place] [id number] [place] [address] 23908- 7617 Sep, Elevated serum creatinine R79.89 ; Fracture of foot, left, closed, initial encounter S92.902A and Alkaline phosphatase elevation R74.8 [facility] [address] [place] [id number] [place] [address] 33136- 9157 Sep, Elevated serum creatinine R79.89 and Essential hypertension I10 [facility] [address] [place] [id number] [place] [address] 16242- 9606 Sep, [facility] [address] [place] [id number] [place] [address] 77366- 0678 Aug, Gastroesophageal reflux disease, esophagitis presence not specified K21.9 [facility] [id number] [place] [address] 40157- 3316 Aug, Essential hypertension I10 ; Fracture of foot, left, closed , initial encounter S92.902A and Alkaline phosphatase elevation R74.8 [facility] [address] [place] [id number] [place] [address] 05321- 2730 Jul, Genital herpes simplex, unspecified site A60.00 [place] [address] [place] [id number] [place] [address] 42754- 6428 Jul, Essential hypertension I10 [place] [address] [place] [id number] [place] [address] 55816- 8629 Jun, Cough R05 and Wheezing R06.2 [place] [address] [place] [id number] [place] [address] 05995- 2130 Jun, Essential hypertension I10 [place] [address] [place] [id number] [place] [address] 13605- 1243 May, Essential hypertension I10 [place] [address] [place] [id number] [place] [address] 67607- 2656 May, Posttraumatic stress disorder F43.10 and Major depressive disorder, recurrent episode with anxious distress F33.9 [place] [id number] [place] [address] 41346- 0343 Apr, [place] [id number] [place] [address] 77090- 2992 Apr, [place] [address] [place] [id number] [place] [address] 87658- 9189 Apr, [facility] [address] [place] [id number] [place] [address] 45328- 8825 Mar, [place] [address] [place] [id number] [place] [address] 12230- 9522 Feb, [facility] [address] [address]- 8031 Jan, [facility] [place] [id number] [place] [address] 26541- 9827 Jan, Essential hypertension I10 ; Mixed hyperlipidemia E78.2 ; Gastroesophageal reflux disease, esophagitis presence not specified K21.9 ; Mild intermittent asthma without complication J45.20 ; Hidradenitis suppurativa L73.2 ; Migraine without status migrainosus, not intractable, unspecified migraine type G43.909 ; Genital herpes simplex, unspecified site A60.00 and Closed traumatic minimally displaced fracture of metatarsal bone of left foot S92.302A [facility] [address] 5[address] -0227 Jan, Localized edema R60.[address] 46815- 8509 Dec, [address] 37988- 5662 Dec, [address] 41509- 2111 Dec, [facility] [address] 75[address] -6758 Dec, Cough R05 ; Tobacco dependence F17.200 and Costochondritis , acute M94.0 [place] [id number] [place] [address] 90415- 2148 Dec, Major depression, recurrent F33.9 ; Bipolar disorder, unspecified F31.9 and Posttraumatic stress disorder F43.10 [place] [address] [place] [id number] [place] [address] 49987- 3557 Nov, [address] 46491- 9148 Nov, [place] [address] 38668- 3679 October, [facility] [address] [place] [address] 61095 -0672 October, Acute upper respiratory infection, unspecified J06.9 [facility] [address] [address]- 1745 October, [facility] [address] [place] [id number] [place] [address] 35115- 8687 Sep, Bipolar affective disorder, remission status unspecified F31.9 and Post-traumatic stress disorder F43.10 [facility] [address] [place] [id number] [place] [address] 57405- 1756 Sep, Bipolar disorder, unspecified F31.9 ; Posttraumatic stress disorder F43.10 and Major depression, recurrent F33.9 [facility] [address] [place] [id number] [place] [address] 87119- 7638 Aug, Edema R60.9 ; Fatigue R53.83 and Polydipsia R63.1 [facility] [address] [place] [id number] [place] [address] 48993- 0213 Aug, [facility] [address] [place] [id number] [place] [address] 63108- 5235 Aug, [facility] [id number] [place] [address] 35475- 9686 Jul, [facility] [address] [place] [id number] [place] [address] 04905- 3352 Jul, [facility] [address] [address]- 8941 Jun, [facility] [address] [place] [id number] [place] [address] 55286- 9235 Jun, [facility] [id number] [place] [address] 54921- 6227 Jun, [facility] [id number] [place] [address] 28926- 8303 Jun, [facility] [address], [place] [address]- 3165 May, Mixed hyperlipidemia E78.2 [place] [id number] [place] [address] 52605- 9043 May, Well woman exam Z01.419 ; History of herpes simplex infection Z86.19 ; Papanicolaou smear Z12.4 ; History of depression Z86.59 ; History of anxiety Z86.59 ; Lipoma of other specified sites D17.79 ; Hidradenitis suppurativa L73.2 ; Routine screening for STI (sexually transmitted infection) Z11.3 and Tobacco use Z72.[address] 51589- 3217 May, Hematuria R31.9 ; Essential hypertension I10 ; Pure hypercholesterolemia E78.0 and Hidradenitis L73.[address] 69225- 2059 May, Upper respiratory symptom R09.89 and Allergic rhinitis J30.[address] 79142- 9233 May, [address] 19945- 5736 May, [address] 43696- 8569 May, Bipolar disorder, unspecified F31.9 ; Posttraumatic stress disorder F43.10 and Major depression, recurrent F33.9 [place] [id number] [place] [address] 06061- 1650 May, [place] [id number] [place] [address] 42312- 0230 May, [address] 43769- 9307 Apr, [address] 12368- 6710 Apr, [address] 65587- 8436 Mar, [facility] [address] [place] [id number] [address]- 8456 Mar, [facility] [address], [place] [address]- 4428 Mar, [facility] [address] [address]328 18 Feb, 2015 Major depressive disorder, recurrent episode, moderate 296.32 and Post traumatic stress disorder (PTSD) 309.81 [facility] [address] 8334 Feb, [facility] [address] 5280 Feb, [facility] [address] 9357 Jan, Cough 786.2 [facility] [address] 1512 Jan, Depression, major, recurrent, moderate 296.32 and Post traumatic stress disorder (PTSD) 309.81 [facility] [address] 0144 Jan, [facility] [address], [place] [address]- 4433 Dec, [facility] [address] 6609 Dec, Generalized anxiety disorder 300.02 and Depression, major, recurrent, moderate 296.32 [facility] [address] [place] [id number] [address]- 8706 Dec, [facility] [address] 1128 Dec, High risk medication use V58.69 [facility] [address] [place] [id number] [address]- 4992 Dec, High risk medication use V58.69 [facility] [address] [facility] [id number] [address] 2546 Dec, [facility] [id number] [place] [address] 08947- 1536 Nov, Generalized anxiety disorder 300.02 and Major depressive disorder, recurrent episode, moderate 296.32 [facility] [address] [id number] [id number] Nov, Dental examination V72.2 [facility] [address] [id number] [address] Nov, Dental examination V72.2 [facility] [address] [place] [id number] [place] [address] 62666 2546 Nov, [facility] [address] [address] Nov, Dental examination V72.2 [facility] [address] [address] Nov, Dental examination V72.2 [facility] [address], [place] [address]- 3186 October, Major depressive disorder, recurrent episode, moderate 296.32 and Generalized anxiety disorder 300.02 [facility] [address], [place] [address]- 7476 October, [facility] [address], [place] [address]- 0006 October, [facility] [address], [place] [address] 2546 October, [facility] [address] [place] [id number], [place] [address]- 6121 Sep, [facility] [address], [place] [address]- 4076 Sep, [facility] [address] [address]- 1336 Aug, [facility] [place] [facility] [address] [id number] [address]- 1314 17 Aug, 2014 [facility] [place] [facility] [address] [id number] [place] [address]- 2696 Aug, 2014 [facility] [place] [facility] [address] [id number] [place] [address]- 4373 13 Aug, 2014 [facility] [place] [facility] [address] [id number] [place] [address]- 1218 10 Aug, 2014 [facility] [place] [facility] [address] [id number] [place] [address]- 1144 Aug, [facility] [place] [facility] [address] [id number] [place] [address]- 1155 Aug, [facility] [place] [facility] [address] [id number] [place] [address]- 6999 16 Jul, 2014 [facility] [place] [facility] [address] [id number] [place] [address]- 6664 16 Jul, 2014 [facility] [place] [facility] [address] [id number] [place] [address]- 8782 16 Jul, 2014 [facility] [place] [facility] [address] [id number] [place] [address]- 7452 16 Jul, 2014 [facility] [place] [facility] [address] [id number] [place] [address]- 1993 Jul, 2014 [facility] [place] [facility] [address] [id number] [place] [address]- 0272 Jul, 2014 [facility] [place] [facility] [address] [id number] [place] [address]- 1478 04 Jul, 2014 [facility] [place] [facility] [address] [id number] [place] [address]- 9512 03 Jul, 2014 [facility] [place] [facility] [address] [id number] [place] [address] Jul, 2014 [facility] [place] [facility] [address] [id number] [place] [address] 30 Jun, 2014 [facility] [place] [facility] [address] [id number] [place] [address] Jun, [facility] [place] [facility] [address] [id number] [place] [address] Jun, [facility] [place] [facility] [address] [id number] [place] [address] Jun, [facility] [place] [facility] [address] [id number] [place] [address] Jun, [facility] [place] [facility] [address] [id number] [place] [address] Jun, [facility] [place] [facility] [address] [id number] [place] [address] Jun, [facility] [place] [facility] [address] [id number] [place] [address] Jun, [facility] [place] [facility] [address] [id number] [place] [address] Jun, [facility] [place] [facility] [address] [id number] [place] [address] Jun, [facility] [place] [facility] [address] [id number] [place] [address] Jun, [facility] [place] [facility] [address] [id number] [place] [address] Jun, [facility] [place] [facility] [address] [id number] [place] [address] Jun, [facility] [place] [facility] [address] [id number] [place] [address] Jun, [facility] [place] [facility] [address] [id number] [place] [address] Jun, [facility] [place] [facility] [address] [id number] [place] [address] Jun, [facility] [place] [facility] [address] [id number] [place] [address] Jun, [facility] [place] [facility] [address] [id number] [place] [address] Jun, [facility] [place] [facility] [address] [id number] [place] [address] Jun, [facility] [place] [facility] [address] [id number] [place] [address] Jun, [facility] [place] [facility] [address] [id number] [place] [address] Jun, [facility] [place] [facility] [address] [id number] [place] [address] Jun, [facility] [facility] [address] [id number] [place] [address] Jun, [facility] [place] [facility] [address] [id number] [place] [address] 6[address] Jun, [facility] [facility] [address] [id number] [place] [address] Jun, [facility] [place] [facility] [address] [id number] [place] [address]- 1418 May, [facility] [address] [id number] [place] [address] May, [facility] [place] [facility] [address] [id number] [place] [address]- 5643 May, [facility] [place] [facility] [address] [id number] [place] [address]- 3785 May, [facility] [address] [id number] [place] [address]- [address]45 May, [facility] [address] [id number] [place] [address]- 6362 May, [facility] [facility] [address] [id number] [place] [address]- 4079 May, [facility] [place] [address] [id number] [place] [address]- 5189 May, [facility] [place] [facility] [address] [id number] [place] [address]- 5896 May, [facility] [place] [facility] [address] [id number] [place] [address]- 3276 May, [facility] [place] [address] [id number] [place] [address]- 1434 May, [facility] [place] [facility] [address] [id number] [place] [address]- 9339 May, [facility] [place] [facility] [address] [id number] [place] [address]- 9397 May, [facility] [address] [id number] [place] [address]- 7202 May, [facility] [place] [facility] [address] [id number] [place] [address]- 1233 May, [facility] [place] [facility] [address] [id number] [place] [address]- 0733 May, [facility] [address] [id number] [place] [address]- 5707 May, [facility] [place] [address] [id number] [place] [address]- 3479 May, [facility] [place] [facility] [address] [id number] [place] [address]- 9523 Apr, [facility] [facility] [address] [id number] [place] [address]- 8133 Apr, [facility] [address] [id number] [place] [address]- 5608 Apr, [facility] [place] [facility] [address] [id number] [place] [address]- 4964 Apr, [facility] [facility] [address] [id number] [place] [address]- 6135 07 Apr, 2014 [facility] [address] [id number] [place] [address]- 4812 Apr, [facility] [address] [id number] [place] [address]- 2671 Apr, [facility] [address] [id number] [place] [address]- 7020 Apr, [facility] [place] [facility] [address] [id number] [place] [address]- 9314 Mar, [facility] [place] [address] [id number] [place] [address]- 5168 Mar, [facility] [address] [id number] [place] [address]- 8032 Feb, [facility] [place] [facility] [address] [id number] [place] [address]- 0099 26 Feb, 2013 [facility] [address] [id number] [place] [address]- 1585 12 Feb, 2013 [facility] [address] [id number] [place] [address]- 2544 12 Feb, 2013 [facility] [place] [address] [id number] [place] [address]- 5323 12 Feb, 2014 [facility] [address] [id number] [place] [address]- 2544 12 Feb, 2013 [facility] [address] [id number] [place] [address]- 2540 10 Feb, 2013 [facility] [address] [id number] [place] [address]- 2546 10 Feb, 2013 [facility] [address] [id number] [place] [address]- 254 08 Feb, 2013 [facility] [address] [id number] [place] [address] Feb, [facility] [address] [id number] [place] [address]- 7459 Jan, [facility] [address] [id number] [place] [address]- 6845 Jan, [facility] [address] [id number] [place] [address]- 3614 Jan, [facility] [address] [id number] [place] [address]- 4190 Jan, [facility] [address] [id number] [place] [address]- 0996 Jan, [facility] [address] [id number] [place] [address]- 7556 Jan, [facility] [address] [id number] [place] [address]- 1369 Jan, [facility] [address] [id number] [place] [address]- 3345 Jan, [facility] [address] [id number] [place] [address]- 9215 Jan, [facility] [address] [id number] [place] [address]- 4994 Jan, [facility] [address] [id number] [place] [address]- 6499 Jan, [facility] [address] [id number] [place] [address]- 2424 Jan, [facility] [address] [id number] [place] [address]- 1199 Jan, [facility] [address] [id number] [place] [address]- 7733 Dec, [facility] [address] [id number] [place] [address]- 8339 Dec, [facility] [address] [id number] [place] [address]- 2817 Dec, [facility] [address] [id number] [place] [address]- 4146 Dec, [facility] [address] [id number] [place] [address]- 7787 Dec, [facility] [address] [id number] [place] [address]- 8642 Dec, [facility] [address] [id number] [place] [address]- 5648 Dec, [facility] [address] [id number] [place] [address]- 5214 Dec, [facility] [address] [id number] [place] [address]- 7089 Dec, [facility] [address] [id number] [place] [address]- 9891 Dec, [facility] [address] [id number] [place] [address]- 8633 Dec, [facility] [address] [id number] [place] [address]- 5002 Dec, [facility] [address] [id number] [place] [address]- 5580 Dec, [facility] [address] [id number] [place] [address]- 6314 Dec, [facility] [address] [id number] [place] [address]- 9293 Nov, [facility] [address] [id number] [place] [address]- 8181 Nov, [facility] [address] [id number] [place] [address]- 0376 Nov, [facility] [address] [id number] [place] [address]- 6671 Nov, [facility] [address] [id number] [place] [address]- 4405 Nov, [facility] [address] [id number] [place] [address]- 4626 Nov, [facility] [address] [id number] [place] [address]- 2686 Nov, [facility] [address] [id number] [place] [address]- 6950 Nov, [facility] [address] [id number] [place] [address]- 3730 October, [facility] [address] [id number] [place] [address]- 6138 October, [facility] [address] [id number] [place] [address]- 7042 October, [facility] [address] [id number] [place] [address]- 5069 October, [facility] [address] [id number] [place] [address]- 2889 October, [facility] [address] [id number] [place] [address]- 4654 October, [facility] [address] [id number] [place] [address]- 9098 October, [facility] [address] [id number] [place] [address]- 8660 October, [facility] [address] [id number] [place] [address]- 7668 October, [facility] [address] [id number] [place] [address]- 6592 October, [facility] [address] [id number] [place] [address]- 2938 October, [facility] [address] [id number] [place] [address]- 7896 October, [facility] [address] [id number] [place] [address]- 3780 October, [facility] [address] [id number] [place] [address]- 4387 October, [facility] [address] [id number] [place] [address]- 0436 October, [facility] [address] [id number] [place] [address]- 4437 October, [facility] [address] [id number] [place] [address]- 4422 Sep, [facility] [address] [id number] [place] [address]- 2592 Sep, [facility] [address] [id number] [place] [address]- 2310 Sep, [facility] [address] [id number] [place] [address]- 7418 Sep, [facility] [address] [id number] [place] [address]- 7749 Sep, [facility] [address] [id number] [place] [address]- 8987 Sep, [facility] [address] [id number] [place] [address]- 3729 Sep, [facility] [address] [id number] [address]- 6681 Sep, [facility] [address] [id number] [place] [address]- 3462 Sep, [facility] [address] [id number] [place] [address]- 5905 Sep, [facility] [address] [id number] [place] [address]- 2750 Sep, [facility] [address] [id number] [place] [address]- 7242 Sep, [facility] [address] [id number] [place] [address]- 5471 Sep, [facility] [address] [id number] [place] [address]- 3311 Sep, [facility] [address] [id number] [place] [address]- 9267 Sep, [facility] [address] [id number] [place] [address]- 0989 Sep, [facility] [address] [id number] [place] [address]- 0081 Sep, [facility] [address] [id number] [place] [address]- 0251 Sep, [facility] [address] [id number] [place] [address]- 7912 Sep, [facility] [address] [id number] [place] [address]- 3216 Aug, [facility] [address] [id number] [place] [address]- 5182 Aug, [facility] [address] [facility] [id number] [place] [address]- 9867 Aug, [facility] [address] [id number] [place] [address]- 2783 Aug, [facility] [address] [facility] [id number] [place] [address]- 0641 Jul, [facility] [address] [id number] [place] [address]- 4658 Jul, [facility] [address] [id number] [place] [address]- 5339 Jul, [facility] [address] [id number] [place] [address]- 4318 Jul, [facility] [address] [id number] [place] [address]- 3539 Jul, [facility] [address] [id number] [place] [address]- 0406 Jul, [facility] [address] [id number] [place] [address]- 8283 Jul, [facility] [address] [id number] [place] [address]- 7360 Jul, [facility] [address] [id number] [place] [address]- 8261 Jul, [facility] [address] [id number] [place] [address]- 7591 Jul, [facility] [address] [id number] [place] [address]- 9139 Jul, [facility] [address] [id number] [place] [address]- 7397 Jul, [facility] [address] [id number] [place] [address]- 6919 Jun, [facility] [address] [id number] [place] [address]- 6106 Jun, [facility] [address] [id number] [place] [address]- 2242 Jun, [facility] [address] [id number] [place] [address]- 7917 Jun, [facility] [address] [id number] [place] [address]- 4367 Jun, [facility] [facility] [address] [id number] [place] [address]- 3673 Jun, [facility] [address] [id number] [place] [address]- 2966 May, [facility] [address] [id number] [place] [address]- 1650 12 May, 2013 [facility] [address] [id number] [place] [address]- 8953 Apr, [facility] [address] [id number] [place] [address]- 1782 21 Apr, 2013 [facility] [address] [id number] [place] [address]- 3194 19 Apr, 2013 [facility] [address] [id number] [place] [address]- 1426 19 Apr, 2013 [facility] [address] [id number] [place] [address]- 4453 18 Apr, 2013 [facility] [address] [id number] [place] [address]- 2090 18 Apr, 2013 [facility] [address] [id number] [place] [address]- 6493 17 Apr, 2013 [facility] [address] [id number] [place] [address]- 2704 15 Apr, 2013 [facility] [address] [id number] [place] [address]- 4791 15 Apr, 2013 [facility] [address] [id number] [place] [address]- 9289 15 Apr, 2013 [facility] [address] [id number] [place] [address]- 8853 15 Apr, 2013 [facility] [address] [id number], [place] [address]- 0535 13 Apr, 2013 [facility] [place] [facility] [address] [id number] [place] [address]- 5873 13 Apr, 2013 [facility] [place] [facility] [address] [id number] [place] [address]- 1210 Mar, [facility] [place] [facility] [address] [id number] [place] [address]- 0626 Mar, [facility] [place] [facility] [address] [id number] [place] [address]- 8998 25 Mar, 2012 [facility] [place] [facility] [address] [id number] [place] [address]- 6784 25 Mar, 2012 [facility] [place] [facility] [address] [id number] [place] [address]- 2384 17 Mar, 2012 [facility] [place] [facility] [address] [id number] [place] [address]- 2194 17 Mar, 2012 [facility] [place] [facility] [address] [id number] [place] [address]- 7368 14 Mar, 2013 [facility] [place] [facility] [address] [id number] [place] [address]- 8877 14 Mar, 2013 [facility] [place] [facility] [address] [id number] [place] [address]- 8622 11 Mar, 2013 [facility] [place] [facility] [address] [id number] [place] [address]- 3395 11 Mar, 2013 [facility] [place] [facility] [address] [id number] [place] [address]- 4092 02 Mar, 2013 [facility] [place] [facility] [address] [id number] [place] [address]- 1355 30 Feb, 2012 [facility] [place] [facility] [address] [id number], [place] [address]- 4660 28 Sep, 2012 [facility] [place] [facility] [address] [id number] [address]- 0228 27 Sep, 2012 [facility] [place] [facility] [address] [id number] [place] [address] 2549 27 Sep, 2012 [facility] [place] [facility] [address] [id number] [place] [address]- 8303 20 Sep, 2012 [facility] [place] [facility] [address] [id number] [place] [address]- 3219 10 Sep, 2012 [facility] [place] [facility] [address] [id number] [place] [address]- 2639 Jan, [facility] [address] [id number] [place] [address]- 0406 Jan, [facility] [address] [id number] [place] [address]- 6406 Dec, [facility] [address] [id number] [place] [address]- 1801 Dec, [facility] [address] [id number] [place] [address]- 5480 Dec, [facility] [address] [id number] [place] [address]- 6817 Dec, [facility] [address] [id number] [place] [address]- 1227 Nov, [facility] [address] [id number] [place] [address]- 5362 Nov, [facility] [address] [id number] [place] [address]- 7729 Nov, [facility] [address] [id number] [place] [address]- 0081 October, [facility] [address] [id number] [place] [address]- 8610 October, [facility] [address] [id number] [place] [address]- 5716 October, [facility] [address] [id number] [place] [address]- 1685 October, [facility] [address] [id number] [place] [address]- 7028 October, [facility] [address] [id number] [place] [address]- 5500 Sep, [facility] [address] [id number] [place] [address]- 2309 Sep, [facility] [address] [id number] [place] [address]- 3322 26 Aug, 2012 [facility] [place] [facility] [address] [id number] [place] [address]- 8643 15 Aug, 2012 [facility] [place] [facility] [address] [id number] [place] [address]- 6022 Aug, [facility] [place] [facility] [address] [id number] [place] [address]- 4576 08 Aug, 2012 [facility] [place] [facility] [address] [id number] [place] [address]- 1161 Aug, [facility] [place] [facility] [address] [id number] [place] [address]- 7118 Jul, [facility] [place] [facility] [address] [id number] [place] [address]- 3682 Jul, [facility] [place] [facility] [address] [id number] [place] [address]- 3708 Jul, [facility] [place] [facility] [address] [id number] [place] [address] Jul, [facility] [place] [facility] [address] [id number] [place] [address] Jun, [facility] [place] [facility] [address] [id number] [place] [address] Jun, [facility] [place] [facility] [address] [id number] [place] [address] Jun, [facility] [place] [facility] [address] [id number] [place] [address] Jun, [facility] [place] [facility] [address] [id number] [place] [address] Jun, [facility] [place] [facility] [address] [id number] [place] [address] 7911 Jun, [facility] [place] [facility] [address] [id number], [place] [address] Jun, [facility] [place] [facility] [address] [id number] [place] [address] Jun, [facility] [place] [facility] [address] [id number] [place] [address] Jun, [facility] [place] [facility] [address] [id number] [place] [address] Jun, [facility] [place] [facility] [address] [id number] [place] [address]703 Jun, [facility] [place] [facility] [address] [id number] [place] [address] May, [facility] [place] [facility] [address] [id number] [place] [address]47 May, [facility] [place] [facility] [address] [id number] [place] [address] Apr, [facility] [place] [facility] [address] [id number] [place] [address] Apr, [facility] [place] [facility] [address] [id number] [place] [address] 31 Mar, 2012 [facility] [place] [facility] [address] [id number] [place] [address] 31 Mar, 2012 [facility] [place] [facility] [address] [id number], [place] [address] 30 Mar, 2012 [facility] [place] [facility] [address] [id number] [place] [address] 1784 30 Mar, 2012 [facility] [place] [facility] [address] [id number] [place] [address] 17 Mar, 2012 [facility] [place] [facility] [address] [id number] [place] [address]70 17 Mar, 2012 [facility] [place] [facility] [address] [id number] [place] [address] 16 Mar, 2012 [facility] [place] [facility] [address] [id number] [place] [address]46 Mar, [facility] [address] [id number] [place] [address] Mar, [facility] [place] [facility] [address] [id number] [place] [address] Feb, [facility] [address] [id number] [place] [address] Jan, [facility] [place] [facility] [address] [id number] [place] [address] Jan, [facility] [address] [id number] [place] [address] Dec, [facility] [address] [id number] [place] [address] 4036 Dec, [facility] [address] [id number] [place] [address] Dec, [facility] [address] [id number] [place] [address]658 Nov, [facility] [place] [facility] [address] [id number] [place] [address] Nov, [facility] [address] [id number] [place] [address] Nov, [facility] [place] [facility] [address] [id number] [place] [address] Nov, [facility] [place] [facility] [address] [id number] [place] [address] October, [facility] [place] [facility] [address] [id number] [place] [address] October, [facility] [place] [facility] [address] [id number] [place] [address] Sep, [facility] [place] [facility] [address] [id number] [place] [address] Sep, [facility] [place] [facility] [address] [id number] [place] [address] Aug, [facility] [place] [facility] [address] [id number] [place] [address] 10 Jul, 2011 [facility] [place] [facility] [address] [id number] [place] [address]- [address] 04 Jul, 2011 [facility] [place] [facility] [address] [id number] [place] [address] Jul, [facility] [place] [facility] [address] [id number] [place] [address] Jul, [facility] [place] [facility] [address] [id number] [place] [address]201 Jun, [facility] [place] [facility] [address] [id number] [place] [address]657 15 May, 2011 [facility] [place] [facility] [address] [id number] [place] [address]- [address]129 15 May, 2011 [facility] [place] [facility] [address] [id number] [place] [address]- 69[address] 15 May, 2011 [facility] [place] [facility] [address] [id number] [place] [address]- 3294 13 May, 2011 [facility] [place] [facility] [address] [id number] [place] [address] 3930 08 May, 2011 [facility] [place] [facility] [address] [id number], [place] [address] 14 Apr, 2011 [facility] [place] [facility] [address] [id number] [place] [address]- 1345 14 Apr, 2011 [facility] [place] [facility] [address] [id number] [place] [address]- [address]874 14 Apr, 2011 [facility] [place] [facility] [address] [id number] [place] [address]- [address]18 07 Apr, 2011 [facility] [place] [facility] [address] [facility] [id number], [place] [address] Apr, [facility] [address] [facility] [id number], [place] [address] Mar, [facility] [address] [facility] [id number] [address] Mar, [facility] [address] [facility] [id number] [address] 14 Mar, 2011 [facility] [address] [facility] [id number], [place] [address]- 84[address] 14 Mar, 2011 [facility] [address] [facility] [id number] [address] Mar, [facility] [address] [facility] [id number], [place] [address]- 7046 Mar, [facility] [id number], [place] [address] Mar, [facility] [address] [id number], [place] [address]- 4283 Mar, [facility] [id number], [place] [address]31 Feb, [facility] [address] [facility] [id number][place] [address]- 7544 May, [facility] [id number] May, [facility] [address] [id number] [address] May, [facility] [address] [facility] [id number] [address] Apr, [facility] [id number] [address] Mar, IMMUNIZATIONS No Known Immunizations SOCIAL HISTORY Never Assessed REASON FOR VISIT PLAN OF CARE VITAL SIGNS MEDICATIONS Medication Instructions Dosage Frequency Start Date End Date Duration Status Venlafaxine HCl 75 MG Orally two tablets in am and one tablet midday 1 tablet Dec, 30 days Active RESULTS No Results PROCEDURES [...]
--- OUTSIDE RECORDS SUMMARY | 2018-08-19 09:52 | XMS REPORT ---
Author Author CURTIS GLENN Organization [facility] Address [address] [place] [address] Care Team Providers Care Youth Liaison Officer Name Role Phone HARSHSALVADOR GLENN Unavailable PROBLEMS Type Condition ICD9-CM Code UEN91-YL Code Onset Dates Condition Status SNOMED Code Problem Mixed hyperlipidemia E78.2 Active 457846709 Problem Vitamin D deficiency E55.9 Active 81298229 Problem Essential hypertension I10 Active 50560573 Problem Posttraumatic stress disorder F43.10 Active 46469635 Problem Mild intermittent asthma without complication J45.20 Active 008846179 Problem Generalized anxiety disorder F41.1 Active 94930669 Problem Gastroesophageal reflux disease, esophagitis presence not specified K21.9 Active 541548612 Problem Bipolar disorder, current episode mixed, moderate F31.62 Active 032605876 Problem Low back pain with sciatica, sciatica laterality unspecified, unspecified back pain laterality, unspecified chronicity M54.40 Active 830650812 Problem Panic disorder F41.0 Active 799629713 Problem Concussion without loss of consciousness, initial encounter S06.0X0A Active 22283609 Problem Nausea R11.0 Active 328367770 Problem Anxiety F41.9 Active 04820891 Problem Hematuria R31.9 Active 18135887 Problem Bipolar disorder F31.9 Active 91730503 Problem Multiple fractures T07.XXXA Active 224976458 Problem Acute right-sided low back pain with right-sided sciatica M54.41 Active 14678006 Problem Hospital discharge follow-up Z09 Active 233933687 Problem Hot flashes R23.2 Active 940541223 Problem History of IBS Z87.19 Active 42247771002606 Problem Breast tenderness N64.4 Active 85487567 Problem Primary insomnia F51.01 Active 328222992 Problem Hidradenitis suppurativa L73.2 Active 96048784 Problem Tobacco use Z72.0 Active 384688681 Problem Localized edema R60.0 Active 922008895 Problem Depression F32.9 Active 72807565 Problem Genital herpes simplex, unspecified site A60.00 Active 28240465 ALLERGIES No Information ENCOUNTERS Encounter Location Date Diagnosis [place] [address] [address] Nov, [place] [address] [address] Nov, [place] [address] 48874- 5091 Nov, Panic disorder F41.0 [place] [address] 43552- 2276 October, Panic disorder F41.0 [place] [address] 36343- 4996 October, Panic disorder F41.0 ; Generalized anxiety disorder F41.1 and Bipolar disorder, current episode mixed, moderate F31.62 [place] [address] [place] [id number] [place] [address] 95359- 6426 October, Panic disorder F41.0 [place] [address] [address]- [address]8 Sep, Hospital discharge follow-up Z09 ; Concussion without loss of consciousness, initial encounter S06.0X0A and Nausea R11.0 [place] [address] [place] [id number] [place] [address] 56391- 5499 Sep, [place] [address] 86997- 6967 Sep, Panic disorder F41.0 [place] [address] [place] [id number] [place] [address] 51860- 1662 Sep, [place] [address] 06070- 5116 Sep, Well woman exam with routine gynecological exam Z01.419 ; Multiple fractures T07.XXXA ; Hot flashes R23.2 ; Essential hypertension I10 ; Mixed hyperlipidemia E78.2 ; Genital herpes simplex, unspecified site A60.00 ; Alkaline phosphatase elevation R74.8 ; Dysuria R30.0 ; Vitamin D deficiency E55.9 ; Tobacco use Z72.0 ; High risk sexual behavior Z72.51 and Encounter for immunization Z23 [place] [id number] [place] [address] 10074- 8263 Aug, Panic disorder F41.0 ; Generalized anxiety disorder F41.1 and Bipolar disorder, current episode mixed, moderate F31.62 [place] [address] [place] [id number] [place] [address] 59741- 1039 Aug, [place] [address] 88374- 6361 Jul, Panic disorder F41.0 ; Generalized anxiety disorder F41.1 and Bipolar disorder, current episode mixed, moderate F31.62 [place] [address] [place] [id number] [place] [address] 95209- 0619 Jul, [place] [address] [place] [id number] [place] [address] 97317- 8141 Jul, [place] [address] 52742- 9638 Jul, Effusion, right knee M25.461 ; Acute pain of right knee M25.561 and Acute pain of left knee M25.562 [place] [address] [place] [id number] [place] [address] 73315- 4100 Jun, Bipolar disorder, current episode mixed, moderate F31.62 ; Generalized anxiety disorder F41.1 and Panic disorder F41.0 [place] [address] [place] [id number] [place] [address] 05363- 8754 May, Bipolar disorder, current episode mixed, moderate F31.62 ; Generalized anxiety disorder F41.1 and Panic disorder F41.0 [place] [id number] [place] [address] 67887- 1221 May, Bipolar disorder, current episode mixed, moderate F31.62 [facility] [id number] [place] [address] 92818- 7979 04 May, 2017 Bipolar disorder, current episode mixed, moderate F31.62 [facility] [address] [place] [id number] [place] [address] 74910- 4488 Apr, Bipolar disorder, current episode mixed, moderate F31.62 ; Generalized anxiety disorder F41.1 and Panic disorder F41.0 [place] [address] [place] [id number] [place] [address] 26503- 9761 Mar, [place] [address] [place] [id number] [place] [address] 47932- 2138 Mar, Bipolar disorder, current episode mixed, moderate F31.62 ; Generalized anxiety disorder F41.1 and Panic disorder F41.0 [place] [address] [place] [id number] [place] [address] 29701- 3056 Feb, [place] [address] 23974- 2763 Feb, Posttraumatic stress disorder F43.10 [place] [address] [place] [id number] [place] [address] 38277- 5706 20 Feb, 2017 Gastroesophageal reflux disease, esophagitis presence not specified K21.9 [place] [address] [place] [id number] [place] [address] 29024- 7033 Feb, [place] [address] [place] [id number] [place] [address] 80101- 3811 06 Feb, 2017 Knee pain, right anterior M25.561 [place] [address] [place] [id number] [place] [address] 10418- 4019 Feb, HSV (herpes simplex virus) infection B00.9 [facility] [address] [place] [id number] [place] [address] 89645- 0044 Feb, [facility] [address] [place] [id number] [place] [address] 14250- 3678 Jan, [facility] [address] [place] [id number] [place] [address] 38936- 7372 Jan, Posttraumatic stress disorder F43.10 [facility] [address] [place] [id number] [place] [address] 76316- 5889 Jan, Foot pain, left M79.672 [facility] [address] [place] [id number] [place] [address] 92999- 1439 Jan, [facility] [address] [place] [id number] [place] [address] 35717- 0355 Jan, Lumbar radiculopathy, acute M54.16 ; Muscle spasm of back M62.830 and Right hip pain M25.551 [facility] [address] [place] [id number] [place] [address] 43936- 6055 Jan, Lumbar radiculopathy, acute M54.16 [place] [address] [place] [id number] [place] [address] 82961- 0907 Jan, [facility] [address] [place] [id number] [place] [address] 65501- 6834 Jan, [facility] [address] [place] [id number] [place] [address] 63334- 6509 Dec, Lumbar radiculopathy, acute M54.16 ; Acute renal insufficiency N28.9 and Muscle spasm of back M62.830 [facility] [address] [place] [id number] [place] [address] 61084- 3593 Dec, [facility] [address] [place] [id number] [place] [address] 42754- 1453 Dec, [facility] [address] [place] [id number] [place] [address] 18535- 5210 Dec, [facility] [id number] [place] [address] 06195 -1177 Dec, Low back pain with sciatica, sciatica laterality unspecified, unspecified back pain laterality, unspecified chronicity M54.40 and Acute right-sided low back pain with right-sided sciatica M54.41 [facility] [address] [address]- 3893 12 Dec, 2016 Posttraumatic stress disorder F43.10 [facility] [address] [address]- 7334 11 Dec, 2016 [facility] [address] [address]- 4734 Dec, Pain in right thigh M79.651 and Acute right-sided low back pain without sciatica M54.5 [facility] [address] [address]- 0679 Dec, Posttraumatic stress disorder F43.10 and Major depressive disorder, recurrent episode with anxious distress F33.9 [facility] [address] [address] Dec, [facility] [address] [address]- 8725 Nov, [facility] [address] [address]- 3577 October, [facility] [id number] [place] [address] 55222- 6629 October, [facility] [address] [address]- 8286 October, Knee pain, right anterior M25.561 [facility] [address] [address]- 4341 October, Knee pain, right anterior M25.561 [facility] [address] [address]- 4178 October, [facility] [address] [address]- 8694 October, [facility] [address] [address]- 0038 October, [facility] [id number] [place] [address] 07069 -4637 Sep, [facility] [address] [place] [id number] [place] [address] 29974- 1926 Sep, [facility] [address] [place] [id number] [place] [address] 78034- 1074 Sep, Essential hypertension I10 [facility] [address] 57323- 5388 Sep, Essential hypertension I10 [facility] [address] [place] [id number] [place] [address] 90753- 0648 Sep, [facility] [address] [place] [id number] [place] [address] 39570- 0625 Sep, Posttraumatic stress disorder F43.10 and Major depressive disorder, recurrent episode with anxious distress F33.9 [facility] [address] [place] [id number] [place] [address] 24830- 8063 Sep, Multiple fractures T14.8 ; Alkaline phosphatase elevation R74.8 and Vitamin D deficiency E55.9 [facility] [address] [place] [id number] [place] [address] 56709- 8205 Sep, [facility] [address] [place] [id number] [place] [address] 25216- 8405 Sep, Elevated serum creatinine R79.89 ; Fracture of foot, left, closed, initial encounter S92.902A and Alkaline phosphatase elevation R74.8 [facility] [address] [place] [id number] [place] [address] 96404- 2253 Sep, Elevated serum creatinine R79.89 and Essential hypertension I10 [facility] [address] [place] [id number] [place] [address] 10328- 9867 Sep, [facility] [address] [place] [id number] [place] [address] 52439- 3307 Aug, Gastroesophageal reflux disease, esophagitis presence not specified K21.9 [facility] [address] [place] [address] 97905- 3449 Aug, Essential hypertension I10 ; Fracture of foot, left, closed , initial encounter S92.902A and Alkaline phosphatase elevation R74.8 [facility] [address] [place] [id number] [place] [address] 70417- 0094 Jul, Genital herpes simplex, unspecified site A60.00 [place] [address] [place] [id number] [place] [address] 11422- 9305 Jul, Essential hypertension I10 [place] [address] [place] [id number] [place] [address] 07208- 5321 Jun, Cough R05 and Wheezing R06.2 [place] [address] [place] [id number] [place] [address] 06814- 2529 Jun, Essential hypertension I10 [place] [address] [place] [id number] [place] [address] 53556- 3660 May, Essential hypertension I10 [place] [address] [place] [id number] [place] [address] 97871- 0542 May, Posttraumatic stress disorder F43.10 and Major depressive disorder, recurrent episode with anxious distress F33.9 [place] [address] [place] [address] 80130- 4609 Apr, [place] [id number] [place] [address] 92477- 3876 Apr, [place] [address] [place] [id number] [place] [address] 05433- 3689 Apr, [facility] [address] [place] [id number] [place] [address] 17272- 2480 Mar, [place] [address] [place] [id number] [place] [address] 08592- 0802 Feb, [facility] [address] [address]- 2060 Jan, [facility] [place] [id number] [place] [address] 64051- 7003 Jan, Essential hypertension I10 ; Mixed hyperlipidemia E78.2 ; Gastroesophageal reflux disease, esophagitis presence not specified K21.9 ; Mild intermittent asthma without complication J45.20 ; Hidradenitis suppurativa L73.2 ; Migraine without status migrainosus, not intractable, unspecified migraine type G43.909 ; Genital herpes simplex, unspecified site A60.00 and Closed traumatic minimally displaced fracture of metatarsal bone of left foot S92.302A [facility] [address] 37067 -9247 Jan, Localized edema R60.[address] 75278- 3327 Dec, [address] 26249- 0887 Dec, [address] 67379- 7949 Dec, [facility] [address] [address]39 -4514 Dec, Cough R05 ; Tobacco dependence F17.200 and Costochondritis , acute M94.0 [place] [id number] [place] [address] 76466- 8296 Dec, Major depression, recurrent F33.9 ; Bipolar disorder, unspecified F31.9 and Posttraumatic stress disorder F43.10 [place] [address] [place] [id number] [place] [address] 12714- 3998 Nov, [address] 78410- 4976 Nov, [place] [address] 31185- 8674 October, [facility] [address] [place] [address] 45720 -7455 October, Acute upper respiratory infection, unspecified J06.9 [facility] [address] [address]- 9700 October, [facility] [address] [place] [id number] [place] [address] 68063- 0117 Sep, Bipolar affective disorder, remission status unspecified F31.9 and Post-traumatic stress disorder F43.10 [facility] [address] [place] [id number] [place] [address] 73051- 2852 Sep, Bipolar disorder, unspecified F31.9 ; Posttraumatic stress disorder F43.10 and Major depression, recurrent F33.9 [facility] [address] [place] [id number] [place] [address] 82449- 1713 Aug, Edema R60.9 ; Fatigue R53.83 and Polydipsia R63.1 [facility] [address] [place] [id number] [place] [address] 03439- 0933 Aug, [facility] [address] [place] [id number] [place] [address] 93408- 6775 Aug, [facility] [address] [place] [address] 32684- 3540 Jul, [facility] [address] [place] [id number] [place] [address] 22876- 9973 Jul, [facility] [address] [address]- 8070 Jun, [facility] [address] [place] [id number] [place] [address] 98172- 4811 Jun, [facility] [address] [place] [address] 97918- 0852 Jun, [facility] [address] [place] [address] 93422- 0201 Jun, [facility] [address] [address]- 5282 May, Mixed hyperlipidemia E78.2 [place] [id number] [place] [address] 76042- 8690 May, Well woman exam Z01.419 ; History of herpes simplex infection Z86.19 ; Papanicolaou smear Z12.4 ; History of depression Z86.59 ; History of anxiety Z86.59 ; Lipoma of other specified sites D17.79 ; Hidradenitis suppurativa L73.2 ; Routine screening for STI (sexually transmitted infection) Z11.3 and Tobacco use Z72.[address] 39332- 4746 May, Hematuria R31.9 ; Essential hypertension I10 ; Pure hypercholesterolemia E78.0 and Hidradenitis L73.[address] 44893- 7900 May, Upper respiratory symptom R09.89 and Allergic rhinitis J30.[address] 76011- 0135 May, [address] 60479- 6762 May, [address] 93856- 5491 May, Bipolar disorder, unspecified F31.9 ; Posttraumatic stress disorder F43.10 and Major depression, recurrent F33.9 [place] [id number] [place] [address] 84252- 3178 May, [place] [id number] [place] [address] 27728- 5851 May, [address] 66245- 4756 Apr, [address] 05464- 1605 Apr, [address] 86341- 7260 Mar, [facility] [address] [place] [id number] [address]- 1183 Mar, [facility] [address] [address]- 3343 Mar, [facility] [address] 4804 18 Feb, 2015 Major depressive disorder, recurrent episode, moderate 296.32 and Post traumatic stress disorder (PTSD) 309.81 [facility] [address] 7410 Feb, [facility] [address] 0710 Feb, [facility] [address] [address] Jan, Cough 786.2 [facility] [address] 0314 Jan, Depression, major, recurrent, moderate 296.32 and Post traumatic stress disorder (PTSD) 309.81 [facility] [address] 7939 Jan, [facility] [address] [address]- 0216 Dec, [facility] [address] 4125 Dec, Generalized anxiety disorder 300.02 and Depression, major, recurrent, moderate 296.32 [facility] [address] [place] [id number] [address]- 9502 Dec, [facility] [address] 2578 Dec, High risk medication use V58.69 [facility] [address] [place] [id number] [address]- 1178 Dec, High risk medication use V58.69 [facility] [address] [facility] [id number] [address] 2546 Dec, [facility] [id number] [place] [address] 32364- 7006 Nov, Generalized anxiety disorder 300.02 and Major depressive disorder, recurrent episode, moderate 296.32 [facility] [address] [id number] [id number] Nov, Dental examination V72.2 [facility] [address] [id number] [id number] Nov, Dental examination V72.2 [facility] [address] [place] [id number] [place] [address] 04877 2546 Nov, [facility] [address] [id number] Nov, Dental examination V72.2 [facility] [address] [address] Nov, Dental examination V72.2 [facility] [address] [address]- 1266 October, Major depressive disorder, recurrent episode, moderate 296.32 and Generalized anxiety disorder 300.02 [facility] [address] [address]- 4246 October, [facility] [address] [address]- 3066 October, [facility] [address] [address] 2546 October, [facility] [address] [place] [id number] [address]- 7224 Sep, [facility] [address] [address]- 9846 Sep, [facility] [address] [address]- 5416 Aug, [facility] [place] [facility] [address] [id number] [place] [address]- 8366 17 Aug, 2014 [facility] [place] [facility] [address] [id number] [place] [address]- 5616 Aug, 2014 [facility] [place] [facility] [address] [id number] [place] [address]- 2004 13 Aug, 2014 [facility] [place] [facility] [address] [id number] [place] [address]- 0811 10 Aug, 2014 [facility] [place] [facility] [address] [id number] [place] [address]- 7054 Aug, [facility] [place] [facility] [address] [id number] [place] [address]- 2034 Aug, [facility] [place] [facility] [address] [id number] [place] [address]- 1799 16 Jul, 2014 [facility] [place] [facility] [address] [id number] [place] [address]- 6071 16 Jul, 2014 [facility] [place] [facility] [address] [id number] [place] [address]- 8007 16 Jul, 2014 [facility] [place] [facility] [address] [id number] [place] [address]- 7003 16 Jul, 2014 [facility] [place] [facility] [address] [id number] [place] [address]- 8526 Jul, 2014 [facility] [place] [facility] [address] [id number] [place] [address]- 0086 Jul, 2014 [facility] [place] [facility] [address] [id number] [place] [address]- 6088 04 Jul, 2014 [facility] [place] [facility] [address] [id number] [place] [address]- 6737 03 Jul, 2014 [facility] [place] [facility] [address] [id number] [place] [address]- 8919 Jul, 2014 [facility] [place] [facility] [address] [id number] [place] [address]- 4892 30 Jun, 2014 [facility] [place] [facility] [address] [id number] [place] [address]- 2403 Jun, [facility] [place] [facility] [address] [id number] [place] [address]- 0571 Jun, [facility] [place] [facility] [address] [id number] [place] [address] Jun, [facility] [place] [facility] [address] [id number] [place] [address] Jun, [facility] [place] [facility] [address] [id number] [place] [address] Jun, [facility] [place] [facility] [address] [id number] [place] [address] Jun, [facility] [place] [facility] [address] [id number] [place] [address] Jun, [facility] [place] [facility] [address] [id number] [place] [address] Jun, [facility] [place] [facility] [address] [id number] [place] [address] Jun, [facility] [place] [facility] [address] [id number] [place] [address] Jun, [facility] [place] [facility] [address] [id number] [place] [address] Jun, [facility] [place] [facility] [address] [id number] [place] [address] Jun, [facility] [place] [facility] [address] [id number] [place] [address] Jun, [facility] [place] [facility] [address] [id number] [place] [address] Jun, [facility] [place] [facility] [address] [id number] [place] [address] Jun, [facility] [place] [facility] [address] [id number] [place] [address] Jun, [facility] [place] [facility] [address] [id number] [place] [address] Jun, [facility] [place] [facility] [address] [id number] [place] [address] Jun, [facility] [place] [facility] [address] [id number] [place] [address] Jun, [facility] [place] [facility] [address] [id number] [place] [address] Jun, [facility] [place] [facility] [address] [id number] [place] [address] Jun, [facility] [place] [facility] [address] [id number] [place] [address] Jun, [facility] [place] [facility] [address] [id number] [place] [address] Jun, [facility] [place] [facility] [address] [id number] [place] [address] Jun, [facility] [place] [facility] [address] [id number] [place] [address] May, [facility] [place] [facility] [address] [id number] [place] [address] May, [facility] [place] [facility] [address] [id number] [place] [address] May, [facility] [place] [facility] [address] [id number] [place] [address] 164[address] May, [facility] [place] [facility] [address] [id number] [place] [address] 9[address] May, [facility] [place] [facility] [address] [id number] [place] [address] 8530 May, [facility] [place] [facility] [address] [id number] [place] [address]- 0154 May, [facility] [place] [facility] [address] [id number] [place] [address]- 5862 May, [facility] [place] [facility] [address] [id number] [place] [address]- 2646 May, [facility] [place] [facility] [address] [id number] [place] [address]- 0516 May, [facility] [place] [facility] [address] [id number] [place] [address]- 2934 May, [facility] [place] [facility] [address] [id number] [place] [address]- 8139 May, [facility] [place] [facility] [address] [id number] [place] [address]- 8441 May, [facility] [place] [facility] [address] [id number] [place] [address]- 8119 May, [facility] [place] [facility] [address] [id number] [place] [address]- 6244 May, [facility] [place] [facility] [address] [id number] [place] [address]- 5157 May, [facility] [place] [facility] [address] [id number] [place] [address]- 3952 May, [facility] [place] [facility] [address] [id number] [place] [address]- 0280 May, [facility] [place] [facility] [address] [id number] [place] [address]- 6554 Apr, [facility] [place] [facility] [address] [id number] [place] [address]- 3964 Apr, [facility] [place] [facility] [address] [id number] [place] [address]- 7850 Apr, [facility] [place] [facility] [address] [id number] [place] [address]- 4600 Apr, [facility] [place] [facility] [address] [id number] [place] [address]- 3263 07 Apr, 2014 [facility] [place] [facility] [address] [id number] [place] [address]- 8117 Apr, [facility] [place] [facility] [address] [id number] [place] [address]- 5777 Apr, [facility] [place] [facility] [address] [id number] [place] [address]- 1690 Apr, [facility] [place] [facility] [address] [id number] [place] [address]- 8185 Mar, [facility] [place] [facility] [address] [id number] [place] [address]- 1616 Mar, [facility] [place] [facility] [address] [id number] [place] [address]- 4992 Feb, [facility] [place] [facility] [address] [id number] [place] [address]- 7234 26 Feb, 2013 [facility] [place] [facility] [address] [id number] [place] [address]- 3221 12 Feb, 2013 [facility] [place] [facility] [address] [id number] [place] [address]- 2544 12 Feb, 2013 [facility] [place] [facility] [address] [id number] [place] [address]- 9664 12 Feb, 2014 [facility] [place] [facility] [address] [id number] [place] [address]- 2543 12 Feb, 2013 [facility] [place] [facility] [address] [id number] [place] [address]- 2542 10 Feb, 2013 [facility] [place] [facility] [address] [id number] [place] [address]- 2546 10 Feb, 2013 [facility] [place] [facility] [address] [id number] [place] [address]- 2548 08 Feb, 2013 [facility] [place] [facility] [address] [id number] [place] [id number] [address] Feb, [facility] [place] [facility] [address] [id number] [place] [address]- 3759 Jan, [facility] [place] [facility] [address] [id number] [place] [address]- 9228 Jan, [facility] [place] [facility] [address] [id number] [place] [address]- 3510 Jan, [facility] [place] [facility] [address] [id number] [place] [address]- 0065 Jan, [facility] [place] [facility] [address] [id number] [place] [address]- 7042 Jan, [facility] [place] [facility] [address] [id number] [place] [address]- 8897 Jan, [facility] [place] [facility] [address] [id number] [place] [address]- 5935 Jan, [facility] [place] [facility] [address] [id number] [place] [address]- 2606 Jan, [facility] [place] [facility] [address] [id number] [place] [address]- 2611 Jan, [facility] [place] [facility] [address] [id number] [place] [address]- 7072 Jan, [facility] [place] [facility] [address] [id number] [place] [address]- 4770 Jan, [facility] [place] [facility] [address] [id number] [place] [address]- 9918 Jan, [facility] [place] [facility] [address] [id number] [place] [address]- 8189 Jan, [facility] [place] [facility] [address] [id number] [place] [address]- 4739 Dec, [facility] [place] [facility] [address] [id number] [place] [address]- 5833 Dec, [facility] [place] [facility] [address] [id number] [place] [address]- 9007 Dec, [facility] [place] [facility] [address] [id number] [place] [address]- 1116 Dec, [facility] [place] [facility] [address] [id number] [place] [address]- 6908 Dec, [facility] [place] [facility] [address] [id number] [place] [address]- 4151 Dec, [facility] [place] [facility] [address] [id number] [place] [address]- 4038 Dec, [facility] [place] [facility] [address] [id number] [place] [address]- 2622 Dec, [facility] [place] [facility] [address] [id number] [place] [address]- 9790 Dec, [facility] [place] [facility] [address] [id number] [place] [address]- 5019 Dec, [facility] [place] [facility] [address] [id number] [place] [address]- 8611 Dec, [facility] [place] [facility] [address] [id number] [place] [address]- 4792 Dec, [facility] [place] [facility] [address] [id number] [place] [address]- 1784 Dec, [facility] [place] [facility] [address] [id number] [place] [address]- 1815 Dec, [facility] [place] [facility] [address] [id number] [place] [address]- 9943 Nov, [facility] [place] [facility] [address] [id number] [place] [address]- 4007 Nov, [facility] [place] [facility] [address] [id number] [place] [address]- 7357 Nov, [facility] [place] [facility] [address] [id number] [place] [address]- 7617 Nov, [facility] [place] [facility] [address] [id number] [place] [address]- 6481 Nov, [facility] [place] [facility] [address] [id number] [place] [address]- 2706 Nov, [facility] [place] [facility] [address] [id number] [place] [address]- 9636 Nov, [facility] [place] [facility] [address] [id number] [place] [address]- 9338 Nov, [facility] [place] [facility] [address] [id number] [place] [address]- 9692 October, [facility] [place] [facility] [address] [id number] [place] [address]- 9396 October, [facility] [place] [facility] [address] [id number] [place] [address]- 8781 October, [facility] [place] [facility] [address] [id number] [place] [address]- 2012 October, [facility] [place] [facility] [address] [id number] [place] [address]- 3018 October, [facility] [place] [facility] [address] [id number] [place] [address]- 0266 October, [facility] [place] [facility] [address] [id number] [place] [address]- 6947 October, [facility] [place] [facility] [address] [id number] [place] [address]- 1329 October, [facility] [place] [facility] [address] [id number] [place] [address]- 2849 October, [facility] [place] [facility] [address] [id number] [place] [address]- 9085 October, [facility] [place] [facility] [address] [id number] [place] [address]- 7184 October, [facility] [place] [facility] [address] [id number] [place] [address]- 8595 October, [facility] [address] [id number] [place] [address]- 8368 October, [facility] [place] [facility] [address] [id number] [place] [address]- 1041 October, [facility] [place] [facility] [address] [id number] [place] [address]- 4139 October, [facility] [place] [facility] [address] [id number] [place] [address]- 1692 October, [facility] [place] [facility] [address] [id number] [place] [address]- 0347 Sep, [facility] [place] [facility] [address] [id number] [place] [address]- 5532 Sep, [facility] [place] [facility] [address] [id number] [place] [address]- 1864 Sep, [facility] [place] [facility] [address] [id number] [place] [address]- 7188 Sep, [facility] [place] [facility] [address] [id number] [place] [address]- 8474 Sep, [facility] [place] [facility] [address] [id number] [place] [address]- 4354 Sep, [facility] [place] [facility] [address] [id number] [place] [address]- 9863 Sep, [facility] [place] [facility] [address] [id number] [place] [address]- 3298 Sep, [facility] [place] [facility] [address] [id number] [place] [address]- 0147 Sep, [facility] [place] [facility] [address] [id number] [place] [address]- 4785 Sep, [facility] [place] [facility] [address] [id number] [place] [address]- 1967 Sep, [facility] [place] [facility] [address] [id number] [place] [address]- 9406 Sep, [facility] [place] [facility] [address] [id number] [place] [address]- 7971 Sep, [facility] [place] [facility] [address] [id number] [place] [address]- 0402 Sep, [facility] [place] [facility] [address] [id number] [place] [address]- 7640 Sep, [facility] [place] [facility] [address] [id number] [place] [address]- 1261 Sep, [facility] [place] [facility] [address] [id number] [place] [address]- 7488 Sep, [facility] [place] [facility] [address] [id number] [place] [address]- 5406 Sep, [facility] [place] [facility] [address] [id number] [place] [address]- 1868 Sep, [facility] [place] [facility] [address] [id number] [place] [address]- 4310 Aug, [facility] [place] [facility] [address] [id number] [place] [address]- 2376 Aug, [facility] [place] [facility] [address] [facility] [id number] [place] [address]- 3463 Aug, [facility] [place] [facility] [address] [id number] [place] [address]- 8350 Aug, [facility] [place] [facility] [address] [facility] [id number] [place] [address]- 6227 Jul, [facility] [place] [facility] [address] [id number] [place] [address]- 4739 Jul, [facility] [place] [facility] [address] [id number] [place] [address]- 3071 Jul, [facility] [place] [facility] [address] [id number] [place] [address]- 6255 Jul, [facility] [place] [facility] [address] [id number] [place] [address]- 5427 Jul, [facility] [place] [facility] [address] [id number] [place] [address]- 6676 Jul, [facility] [place] [facility] [address] [id number] [place] [address]- 7623 Jul, [facility] [place] [facility] [address] [id number] [place] [address]- 1952 Jul, [facility] [place] [facility] [address] [id number] [place] [address]- 8681 Jul, [facility] [place] [facility] [address] [id number] [place] [address]- 9969 Jul, [facility] [place] [facility] [address] [id number] [place] [address]- 3339 Jul, [facility] [place] [facility] [address] [id number] [place] [address]- 4983 Jul, [facility] [place] [facility] [address] [id number] [place] [address]- 2412 Jun, [facility] [place] [facility] [address] [id number] [place] [address]- 1394 Jun, [facility] [place] [facility] [address] [id number] [place] [address]- 8079 Jun, [facility] [place] [facility] [address] [id number] [place] [address]- 9583 Jun, [facility] [place] [facility] [address] [id number] [place] [address]- 4399 Jun, [facility] [place] [facility] [address] [id number] [place] [address]- 8497 Jun, [facility] [place] [facility] [address] [id number] [place] [address]- 1585 May, [facility] [place] [facility] [address] [id number] [place] [address]- 1660 12 May, 2013 [facility] [address] [id number] [place] [address]- 6293 Apr, [facility] [place] [facility] [address] [id number] [place] [address]- 7636 21 Apr, 2013 [facility] [address] [id number] [place] [address]- 9241 19 Apr, 2013 [facility] [place] [facility] [address] [id number] [place] [address]- 8386 19 Apr, 2013 [facility] [address] [id number] [place] [address]- 8284 18 Apr, 2013 [facility] [address] [id number] [place] [address]- 6461 18 Apr, 2013 [facility] [address] [id number] [place] [address]- 5601 17 Apr, 2013 [facility] [address] [id number] [place] [address]- 6602 15 Apr, 2013 [facility] [address] [id number] [place] [address]- 8145 15 Apr, 2013 [facility] [address] [id number] [place] [address]- 8654 15 Apr, 2013 [facility] [place] [facility] [address] [id number] [place] [address]- 5627 15 Apr, 2013 [facility] [place] [facility] [address] [id number] [place] [address]- 5039 13 Apr, 2013 [facility] [place] [facility] [address] [id number] [place] [address]- 2131 13 Apr, 2013 [facility] [place] [facility] [address] [id number] [place] [address]- 2620 Mar, [facility] [place] [facility] [address] [id number] [place] [address]- 0927 Mar, [facility] [place] [facility] [address] [id number] [place] [address]- 5359 25 Mar, 2012 [facility] [place] [facility] [address] [id number] [place] [address]- 8093 25 Mar, 2012 [facility] [place] [facility] [address] [id number] [place] [address]- 5161 17 Mar, 2012 [facility] [place] [facility] [address] [id number] [place] [address]- 0161 17 Mar, 2012 [facility] [place] [facility] [address] [id number] [place] [address]- 1872 14 Mar, 2013 [facility] [place] [facility] [address] [id number] [place] [address]- 2727 14 Mar, 2013 [facility] [place] [facility] [address] [id number] [place] [address]- 0134 11 Mar, 2013 [facility] [place] [facility] [address] [id number] [place] [address]- 2885 11 Mar, 2013 [facility] [place] [facility] [address] [id number] [place] [address]- 0442 02 Mar, 2013 [facility] [place] [facility] [address] [id number] [place] [address]- 3915 30 Feb, 2012 [facility] [place] [facility] [address] [id number] [place] [address]- 4978 28 Sep, 2012 [facility] [place] [facility] [address] [id number] [place] [address]- 2171 27 Sep, 2012 [facility] [place] [facility] [address] [id number] [place] [address] 254 27 Sep, 2012 [facility] [place] [facility] [address] [id number] [place] [address]- 1161 20 Sep, 2012 [facility] [place] [facility] [address] [id number] [place] [address]- 3682 10 Sep, 2012 [facility] [place] [facility] [address] [id number] [place] [address]- 5262 Jan, [facility] [address] [id number] [place] [address]- 9666 Jan, [facility] [address] [id number] [place] [address]- 5366 Dec, [facility] [address] [id number] [place] [address]- 6102 Dec, [facility] [address] [id number] [place] [address]- 1314 Dec, [facility] [address] [id number] [place] [address]- 3402 Dec, [facility] [address] [id number] [place] [address]- 8272 Nov, [facility] [address] [id number] [place] [address]- 8985 Nov, [facility] [address] [id number] [place] [address]- 5596 Nov, [facility] [address] [id number] [place] [address]- 8092 October, [facility] [address] [id number] [place] [address]- 7957 October, [facility] [address] [id number] [place] [address]- 9363 October, [facility] [address] [id number] [place] [address]- 6572 October, [facility] [address] [id number] [place] [address]- 5442 October, [facility] [address] [id number] [place] [address]- 4607 Sep, [facility] [address] [id number] [place] [address]- 3639 Sep, [facility] [address] [id number] [place] [address]- 3662 26 Aug, 2012 [facility] [place] [facility] [address] [id number] [place] [address]- 4289 15 Aug, 2012 [facility] [place] [facility] [address] [id number] [place] [address]- 3889 Aug, [facility] [place] [facility] [address] [id number] [place] [address]- 0212 08 Aug, 2012 [facility] [place] [facility] [address] [id number] [place] [address]- 2599 Aug, [facility] [place] [facility] [address] [id number] [place] [address]- 3790 Jul, [facility] [place] [facility] [address] [id number] [place] [address]- 3875 Jul, [facility] [place] [facility] [address] [id number] [place] [address]- 4778 Jul, [facility] [place] [facility] [address] [id number] [place] [address]- 5423 Jul, [facility] [place] [facility] [address] [id number] [place] [address]- 1844 Jun, [facility] [place] [facility] [address] [id number] [place] [address]- 6310 Jun, [facility] [place] [facility] [address] [id number] [place] [address]- 3485 Jun, [facility] [place] [facility] [address] [id number] [place] [address]- 6184 Jun, [facility] [place] [facility] [address] [id number] [place] [address]- 8886 Jun, [facility] [place] [facility] [address] [id number] [place] [address]- 6236 Jun, [facility] [place] [facility] [address] [id number] [place] [address]- 1362 Jun, [facility] [place] [facility] [address] [id number] [place] [address]- 4984 Jun, [facility] [place] [facility] [address] [id number] [place] 7280 Jun, [facility] [place] [facility] [address] [id number] [place] [address] Jun, [facility] [place] [facility] [address] [id number] [place] [address] Jun, [facility] [place] [facility] [address] [id number] [place] [address] May, [facility] [place] [facility] [address] [id number] [place] [address] May, [facility] [place] [facility] [address] [id number] [place] [address] Apr, [facility] [place] [facility] [address] [id number] [place] [address] Apr, [facility] [place] [facility] [address] [id number] [place] [address] 31 Mar, 2012 [facility] [place] [facility] [address] [id number] [place] [address] 31 Mar, 2012 [facility] [place] [facility] [address] [id number] [place] [address] 30 Mar, 2012 [facility] [place] [facility] [address] [id number] [place] [address] 30 Mar, 2012 [facility] [place] [facility] [address] [id number] [place] [address] 17 Mar, 2012 [facility] [place] [facility] [address] [id number] [place] [address] 17 Mar, 2012 [facility] [place] [facility] [address] [id number] [place] [address] 4069 16 Mar, 2012 [facility] [place] [facility] [address] [id number] [place] [address] Mar, [facility] [address] [id number] [place] [address] Mar, [facility] [place] [facility] [address] [id number] [place] [address] Feb, [facility] [address] [id number] [place] [address] Jan, [facility] [place] [facility] [address] [id number] [place] [address] Jan, [facility] [address] [id number] [place] [address] Dec, [facility] [address] [id number] [place] [address] Dec, [facility] [address] [id number] [place] [address] Dec, [facility] [address] [id number] [place] [address] Nov, [facility] [place] [facility] [address] [id number] [place] [address] Nov, [facility] [address] [id number] [place] [address] Nov, [facility] [place] [facility] [address] [id number] [place] [address] Nov, [facility] [place] [facility] [address] [id number] [place] [address] October, [facility] [place] [facility] [address] [id number] [place] [address] October, [facility] [place] [facility] [address] [id number] [place] [address] Sep, [facility] [place] [facility] [address] [id number] [place] [address] Sep, [facility] [place] [facility] [address] [id number] [place] [address] Aug, [facility] [place] [facility] [address] [id number] [place] [address] 224[address] 10 Jul, 2011 [facility] [place] [facility] [address] [id number] [place] [address] 04 Jul, 2011 [facility] [place] [facility] [address] [id number] [place] [address] Jul, [facility] [place] [facility] [address] [id number] [place] [address] Jul, [facility] [place] [facility] [address] [id number] [place] [address] Jun, [facility] [place] [facility] [address] [id number] [place] [address] 15 May, 2011 [facility] [place] [facility] [address] [id number] [place] [address] 15 May, 2011 [facility] [place] [facility] [address] [id number] [place] [address] 1446 15 May, 2011 [facility] [place] [facility] [address] [id number] [place] [address] 7827 13 May, 2011 [facility] [place] [facility] [address] [id number] [place] [address]- [address] 08 May, 2011 [facility] [place] [facility] [address] [id number] [place] [address] 14 Apr, 2011 [facility] [place] [facility] [address] [id number] [place] [address]- [address] 14 Apr, 2011 [facility] [place] [facility] [address] [id number] [place] [address]- 17[address] 14 Apr, 2011 [facility] [place] [facility] [address] [id number] [place] [address]- [address]37 07 Apr, 2011 [facility] [place] [facility] [address] [facility] [id number] [place] [address] Apr, [facility] [address] [facility] [id number] [place] [address] Mar, [facility] [address] [facility] [id number] [place] [address] Mar, [facility] [address] [facility] [id number] [place] [address] 14 Mar, 2011 [facility] [address] [facility] [id number] [place] [address]- [address] 14 Mar, 2011 [facility] [address] [facility] [id number] [place] [address] Mar, [facility] [address] [facility] [id number] [place] [address] Mar, [facility] [id number] [place] [address] Mar, [facility] [address] [facility] [id number] [place] [address] Mar, [facility] [id number] [place] [address] Feb, [facility] [address] [facility] [id number] [place] [address] May, [facility] [id number] [place] [address] May, [facility] [address] [facility] [id number] [place] [address] May, [facility] [address] [facility] [id number] [place] [address] Apr, [facility] [address] [facility] [id number] [place] [address] Mar, IMMUNIZATIONS No Known Immunizations SOCIAL HISTORY Never Assessed REASON FOR VISIT xanax refill PLAN OF CARE VITAL SIGNS MEDICATIONS Medication Instructions Dosage Frequency Start Date End Date Duration Status Alprazolam 2 MG Orally Twice a day (part of taper dose) 1 tablet 30 days Active Xanax 0.5 MG Orally daily (part of tapering dose) 3 tablets Apr, 30 days Active RESULTS No [...]
--- OUTSIDE RECORDS SUMMARY | 2018-08-19 09:55 | XMS REPORT ---
Author Author GLENN AC Organization [facility] Address [address] [place] [address] Care Team Providers Care Board Filler Name Role Phone GLENN AC Unavailable PROBLEMS Type Condition ICD9-CM Code VLH69-LD Code Onset Dates Condition Status SNOMED Code Problem Posttraumatic stress disorder F43.10 Active 37205843 Problem Generalized anxiety disorder F41.1 Active 26390720 Problem Panic disorder F41.0 Active 607055933 Problem Nausea R11.0 Active 374663413 Problem Mild intermittent asthma without complication J45.20 Active 914241429 Problem Hot flashes R23.2 Active 716034790 Problem Vitamin D deficiency E55.9 Active 01253575 Problem Mixed hyperlipidemia E78.2 Active 156902074 Problem Low back pain with sciatica, sciatica laterality unspecified, unspecified back pain laterality, unspecified chronicity M54.40 Active 424091550 Problem Bipolar disorder, current episode mixed, moderate F31.62 Active 951976987 Problem Multiple fractures T07.XXXA Active 981840383 Problem Acute right-sided low back pain with right-sided sciatica M54.41 Active 65272091 Problem Essential hypertension I10 Active 58651030 Problem Anxiety F41.9 Active 02243461 Problem Gastroesophageal reflux disease, esophagitis presence not specified K21.9 Active 744805654 Problem Bipolar disorder F31.9 Active 75754404 Problem Depression F32.9 Active 03716615 Problem History of IBS Z87.19 Active [id number] Problem Primary insomnia F51.01 Active 344854276 Problem Genital herpes simplex, unspecified site A60.00 Active 33117000 Problem Hidradenitis suppurativa L73.2 Active 58132389 Problem Tobacco use Z72.0 Active 844441756 ALLERGIES No Information ENCOUNTERS Encounter Location Date Diagnosis [facility] [address] [facility] [id number] [address] Jun, [facility] [address] [address] May, [facility] [id number] [place] [address] 900847- 0200 May, Vulvar irritation N90.89 ; Low back pain M54.5 ; Other specified bacterial agents as the cause of diseases classified elsewhere B96.89 and Acute vaginitis N76.0 [facility] [address] [address] Apr, [facility] [address], [place] [address] 17[address] Apr, [facility] [id number] [place] [address] 92654- 3559 Apr, Genital herpes simplex, unspecified site A60.00 [facility] [id number] [place] [address] 757843- 3320 Apr, [facility] [id number] [place] [address] 57589- 6459 Apr, [facility] [id number] [place] [address] 42411- 7592 Mar, [facility] [id number] [place] [address] 83486- 6905 Mar, Genital herpes simplex, unspecified site A60.00 [facility] [address], [place] [address] 7880 Mar, [facility] [address] 95[address] Mar, [facility] [id number] [place] [address] 506894- 1447 Mar, Panic disorder F41.0 [facility] [address] [address] Mar, [facility] [address] [place] [address] 7933 Mar, Genital herpes simplex, unspecified site A60.00 and Hidradenitis L73.2 [facility] [address] [place] [address] 28065- 9783 Feb, Panic disorder F41.0 ; Bipolar disorder, current episode mixed, moderate F31.62 and Generalized anxiety disorder F41.1 [facility] [id number] [place] [address] 88873- 1891 Feb, Panic disorder F41.0 [facility] [id number] [place] [address] 26873- 1017 Jan, Genital herpes simplex, unspecified site A60.00 [facility] [id number] [place] [address] 25713- 9415 Jan, Panic disorder F41.0 [facility] [id number] [place] [address] 53244- 9183 Dec, Diaphoresis R61 and Excessive thirst R63.1 [facility] [address] [place] [address] 04056- 2205 Dec, Panic disorder F41.0 ; Bipolar disorder, current episode mixed, moderate F31.62 and Generalized anxiety disorder F41.1 [facility] [id number] [place] [address] 33479- 6986 Dec, Panic disorder F41.0 [facility] [id number] [place] [address] 94735- 2497 Nov, Panic disorder F41.0 [facility] [id number] [place] [address] 80765- 5067 Nov, Panic disorder F41.0 ; Generalized anxiety disorder F41.1 and Bipolar disorder, current episode mixed, moderate F31.62 [facility] [address] [place] [address] 93808- 0938 Nov, Panic disorder F41.0 [facility] [address] [place] [address] 31727- 2681 Nov, Panic disorder F41.0 [facility] [id number] [place] [address] 95280- 2751 October, Panic disorder F41.0 [facility] [id number] [place] [address] 60919- 2269 October, Panic disorder F41.0 ; Generalized anxiety disorder F41.1 and Bipolar disorder, current episode mixed, moderate F31.62 [facility] [id number] [place] [address] 40246- 7907 October, Panic disorder F41.0 [facility] [address] 47365- 4282 Sep, Hospital discharge follow-up Z09 ; Concussion without loss of consciousness, initial encounter S06.0X0A and Nausea R11.0 [facility] [id number] [place] [address] 69763- 4221 Sep, [facility] [id number] [place] [address] 08128- 6501 Sep, Panic disorder F41.0 [facility] [id number] [place] [address] 41919- 1714 Sep, [facility] [id number] [place] [address] 77331- 4106 Sep, Well woman exam with routine gynecological exam Z01.419 ; Multiple fractures T07.XXXA ; Hot flashes R23.2 ; Essential hypertension I10 ; Mixed hyperlipidemia E78.2 ; Genital herpes simplex, unspecified site A60.00 ; Alkaline phosphatase elevation R74.8 ; Dysuria R30.0 ; Vitamin D deficiency E55.9 ; Tobacco use Z72.0 ; High risk sexual behavior Z72.51 and Encounter for immunization Z23 [facility] [address] [place] [address] 83242- 5049 Aug, Panic disorder F41.0 ; Generalized anxiety disorder F41.1 and Bipolar disorder, current episode mixed, moderate F31.62 [facility] [address], [place] [address] 2427 Aug, [facility] [address] [place] [address] 01796- 9242 Jul, Panic disorder F41.0 ; Generalized anxiety disorder F41.1 and Bipolar disorder, current episode mixed, moderate F31.62 [facility] [address] [place] [address] 82069- 4530 Jul, [facility] [address] [place] [address] 47212- 6698 Jul, [facility] [id number] [place] [address] 79325- 1641 Jul, Effusion, right knee M25.461 ; Acute pain of right knee M25.561 and Acute pain of left knee M25.562 [facility] [address] [place] [address] 78201- 8546 Jun, Bipolar disorder, current episode mixed, moderate F31.62 ; Generalized anxiety disorder F41.1 and Panic disorder F41.0 [facility] [address] [place] [address] 50835- 2643 May, Bipolar disorder, current episode mixed, moderate F31.62 ; Generalized anxiety disorder F41.1 and Panic disorder F41.0 [facility] [address] [place] [address] 12463- 3497 May, Bipolar disorder, current episode mixed, moderate F31.62 [facility] [address] [place] [address] 33395- 3224 May, Bipolar disorder, current episode mixed, moderate F31.62 [facility] [address] [place] [address] 99892- 4211 Apr, Bipolar disorder, current episode mixed, moderate F31.62 ; Generalized anxiety disorder F41.1 and Panic disorder F41.0 [facility] [id number] [place] [address] 71511- 3766 17 Mar, 2017 [facility] [address] 76940- 5333 Mar, Bipolar disorder, current episode mixed, moderate F31.62 ; Generalized anxiety disorder F41.1 and Panic disorder F41.0 [facility] [address] 57134- 9029 27 Feb, 2017 [facility] [address] 62848- 0569 22 Feb, 2017 Posttraumatic stress disorder F43.10 [facility] [address] 74270- 7824 20 Feb, 2017 Gastroesophageal reflux disease, esophagitis presence not specified K21.9 [facility] [address] 62826- 4491 Feb, [facility] [address] 02107- 7292 06 Feb, 2017 Knee pain, right anterior M25.561 [facility] [address] 61539- 9304 05 Feb, 2017 HSV (herpes simplex virus) infection B00.9 [facility] [id number] [place] [address] 11301- 2390 Feb, [facility] [id number] [place] [address] 58038- 0389 Jan, [facility] [id number] [place] [address] 67477- 3555 Jan, Posttraumatic stress disorder F43.10 [facility] [id number] [place] [address] 37867- 4939 Jan, Foot pain, left M79.672 [facility] [id number] [place] [address] 26856- 9458 Jan, [facility] [id number] [place] [address] 94772- 6359 Jan, Lumbar radiculopathy, acute M54.16 ; Muscle spasm of back M62.830 and Right hip pain M25.551 [facility] [id number] [place] [address] 26646- 8155 Jan, Lumbar radiculopathy, acute M54.16 [facility] [id number] [place] [address] 07917- 6188 Jan, [facility] [id number] [place] [address] 11953- 1483 Jan, [facility] [id number] [place] [address] 51586- 6679 Dec, Lumbar radiculopathy, acute M54.16 ; Acute renal insufficiency N28.9 and Muscle spasm of back M62.830 [facility] [id number] [place] [address] 72016- 9012 Dec, [facility] [id number] [place] [address] 70895- 6263 Dec, [facility] [id number] [place] [address] 42735- 2203 Dec, [facility] [id number] [place] [address] 82065 -8046 Dec, Low back pain with sciatica, sciatica laterality unspecified, unspecified back pain laterality, unspecified chronicity M54.40 and Acute right-sided low back pain with right-sided sciatica M54.41 [facility] [id number] [place] [address] 77877- 3733 Dec, Posttraumatic stress disorder F43.10 [facility] [id number] [place] [address] 61045- 2246 Dec, [facility] [address] 65923- 5520 Dec, Pain in right thigh M79.651 and Acute right-sided low back pain without sciatica M54.5 [facility] [id number] [place] [address] 32547- 8030 Dec, Posttraumatic stress disorder F43.10 and Major depressive disorder, recurrent episode with anxious distress F33.9 [facility] [id number] [place] [address] 28593 -3174 Dec, [facility] [id number] [place] [address] 05904- 5965 Nov, [facility] [id number] [place] [address] 99876- 6675 October, [facility] [id number] [place] [address] 47193- 5170 October, [facility] [id number] [place] [address] 11390- 2413 October, Knee pain, right anterior M25.561 [facility] [id number] [place] [address] 78493- 4515 October, Knee pain, right anterior M25.561 [facility] [id number] [place] [address] 80959- 9640 October, [facility] [address] [place] [address] 45080- 2691 October, [facility] [id number] [place] [address] 74452- 6199 October, [facility] [id number] [place] [address] 44719 -4883 Sep, [facility] [id number] [place] [address] 52399- 3138 Sep, [facility] [address], [place] [address]- 6770 Sep, Essential hypertension I10 [facility] [address], [place] [address]- 2484 11 Sep, 2016 Essential hypertension I10 [facility] [id number] [place] [address] 90965- 3423 Sep, [facility] [id number] [place] [address] 79416- 3586 Sep, Posttraumatic stress disorder F43.10 and Major depressive disorder, recurrent episode with anxious distress F33.9 [facility] [id number] [place] [address] 44124- 0150 Sep, Multiple fractures T14.8 ; Alkaline phosphatase elevation R74.8 and Vitamin D deficiency E55.9 [facility] [id number] [place] [address] 41395- 5840 Sep, [facility] [id number] [place] [address] 77311- 5274 Sep, Elevated serum creatinine R79.89 ; Fracture of foot, left, closed, initial encounter S92.902A and Alkaline phosphatase elevation R74.8 [facility] [address] [place] [address] 40036- 8311 Sep, Elevated serum creatinine R79.89 and Essential hypertension I10 [facility] [address] [place] [address] 38998- 9068 Sep, [facility] [id number] [place] [address] 02489- 8314 Aug, Gastroesophageal reflux disease, esophagitis presence not specified K21.9 [facility] [address] [place] [address] 51890- 1380 Aug, Essential hypertension I10 ; Fracture of foot, left, closed , initial encounter S92.902A and Alkaline phosphatase elevation R74.8 [facility] [address] [place] [address] 97086- 4599 17 Jul, 2016 Genital herpes simplex, unspecified site A60.00 [facility] [id number] [place] [address] 53196- 7024 Jul, Essential hypertension I10 [facility] [id number] [place] [address] 77395- 6809 Jun, Cough R05 and Wheezing R06.2 [facility] [address] [place] [address] 92149- 5818 Jun, Essential hypertension I10 [facility] [id number] [place] [address] 08552- 7243 May, Essential hypertension I10 [facility] [id number] [place] [address] 48046- 5760 May, Posttraumatic stress disorder F43.10 and Major depressive disorder, recurrent episode with anxious distress F33.9 [facility] [id number] [place] [address] 48537- 2950 Apr, [facility] [id number] [place] [address] 12239- 4855 Apr, [facility] [id number] [place] [address] 73613- 1773 Apr, [facility] [id number] [place] [address] 35496- 0746 Mar, [facility] [id number] [place] [address] 03454- 4534 Feb, [facility] [id number] [place] [address] 87810- 2434 Jan, [facility] [address] [place] [address] 62146- 5163 Jan, Essential hypertension I10 ; Mixed hyperlipidemia E78.2 ; Gastroesophageal reflux disease, esophagitis presence not specified K21.9 ; Mild intermittent asthma without complication J45.20 ; Hidradenitis suppurativa L73.2 ; Migraine without status migrainosus, not intractable, unspecified migraine type G43.909 ; Genital herpes simplex, unspecified site A60.00 and Closed traumatic minimally displaced fracture of metatarsal bone of left foot S92.302A [facility] [id number] [place] [address] 99837 -1520 Jan, Localized edema R60.0 [facility] [id number] [place] [address] 17009- 1719 Dec, [facility] [id number] [place] [address] 29751- 6352 Dec, [facility] [id number] [place] [address] 04645- 6344 Dec, [facility] [id number] [place] [address] 42893 -0234 Dec, Cough R05 ; Tobacco dependence F17.200 and Costochondritis , acute M94.0 [facility] [id number] [place] [address] 06095- 0347 Dec, Major depression, recurrent F33.9 ; Bipolar disorder, unspecified F31.9 and Posttraumatic stress disorder F43.10 [facility] [id number] [place] [address] 87759- 1652 Nov, [facility] [id number] [place] [address] 86967- 2956 Nov, [facility] [id number] [place] [address] 84716- 1832 October, [facility] [id number] [place] [address] 26551 -5750 October, Acute upper respiratory infection, unspecified J06.9 [facility] [id number] [place] [address] 62060- 3418 October, [facility] [id number] [place] [address] 81859- 8213 Sep, Bipolar affective disorder, remission status unspecified F31.9 and Post-traumatic stress disorder F43.10 [facility] [address] [place] [address]- 2689 06 Sep, 2015 Bipolar disorder, unspecified F31.9 ; Posttraumatic stress disorder F43.10 and Major depression, recurrent F33.9 [facility] [id number] [place] [address] 53699- 9318 16 Aug, 2015 Edema R60.9 ; Fatigue R53.83 and Polydipsia R63.1 [facility] [id number] [place] [address] 80600- 6286 Aug, [facility] [id number] [place] [address] 96973- 9252 Aug, [facility] [id number] [place] [address] 43328- 4070 Jul, [facility] [id number] [place] [address] 63738- 3230 Jul, [facility] [id number] [place] [address] 62152- 8397 Jun, [facility] [id number] [place] [address] 59712- 1491 Jun, [facility] [id number] [place] [address] 52071- 1766 Jun, [facility] [address], [place] [address]- 2712 Jun, [facility] [address] [place] [address] 05165- 0141 May, Mixed hyperlipidemia E78.2 [facility] [id number] [address]- 0689 May, Well woman exam Z01.419 ; History of herpes simplex infection Z86.19 ; Papanicolaou smear Z12.4 ; History of depression Z86.59 ; History of anxiety Z86.59 ; Lipoma of other specified sites D17.79 ; Hidradenitis suppurativa L73.2 ; Routine screening for STI (sexually transmitted infection) Z11.3 and Tobacco use Z72.0 [facility] [id number] [place] [address] 17160- 6079 May, Hematuria R31.9 ; Essential hypertension I10 ; Pure hypercholesterolemia E78.0 and Hidradenitis L73.2 [facility] [address] 01860- 4439 May, Upper respiratory symptom R09.89 and Allergic rhinitis J30.9 [facility] [address] 20036- 1723 May, [facility] [address] 27452- 7559 May, [facility] [address] 98496- 0289 May, Bipolar disorder, unspecified F31.9 ; Posttraumatic stress disorder F43.10 and Major depression, recurrent F33.9 [facility] [address] 67914- 6695 May, [facility] [address] 67379- 6110 May, [facility] [id number] [place] [address] 19047- 8264 Apr, [facility] [id number] [place] [address] 93860- 0460 Apr, [facility] [id number] [place] [address] 07404- 5144 Mar, [facility] [address] 16787- 9282 Mar, [facility] [address] 09908- 1719 Mar, [facility] [id number] [place] [address] 08122- 1779 18 Feb, 2015 Major depressive disorder, recurrent episode, moderate 296.32 and Post traumatic stress disorder (PTSD) 309.81 [facility] [address] [address]- 4864 Feb, [facility] [id number] [place] [address] 814223- 3602 Feb, [facility] [id number] [place] [address] 410536- 0207 Jan, Cough 786.2 [facility] [id number] [place] [address] 14464- 3079 Jan, Depression, major, recurrent, moderate 296.32 and Post traumatic stress disorder (PTSD) 309.81 [facility] [id number] [place] [address] 25558- 1315 Jan, [facility] [id number] [place] [address] 35489- 9141 Dec, [facility] [address] [id number] [place] [address] [id number] Dec, Generalized anxiety disorder 300.02 and Depression, major, recurrent, moderate 296.32 [place] [id number] [place] [address] 72709- 9662 Dec, [facility] [id number] [address] Dec, High risk medication use V58.69 [place] [address] [id number] [place] [address] 07914- 7809 Dec, High risk medication use V58.69 [facility] [id number], [place] [address] Dec, [place] [id number] [place] [address] 34323- 7646 Nov, Generalized anxiety disorder 300.02 and Major depressive disorder, recurrent episode, moderate 296.32 [facility] [id number] [place] [address] [id number] Nov, Dental examination V72.2 [facility] [id number] [id number] Nov, Dental examination V72.2 [facility] [address] [facility] [id number] [address] 15 Nov, 2014 [facility] [address] [id number] Nov, Dental examination V72.2 [facility] [id number] [place] [address] [id number] Nov, Dental examination V72.2 [facility] [id number] [place] [address] [id number] October, Major depressive disorder, recurrent episode, moderate 296.32 and Generalized anxiety disorder 300.02 [facility] [id number] [address] October, [facility] [address] [id number], [place] [address] October, [facility] [address] [id number], [place] [address] October, [facility] [address] [id number], [place] [address] Sep, [facility] [id number], [place] [address] Sep, [facility] [address] [facility] [id number], [place] [address] Aug, [facility] [address] [facility] [place] [id number], [place] [address] Aug, [facility] [address] [facility] [place] [id number], [place] [address] 2546 Aug, [facility] [address] [id number], [place] [address] Aug, [facility] [id number] [address] Aug, [facility] [place] [facility] [address] [id number] [place] [address]- [address] Aug, [facility] [place] [facility] [address] [id number] [place] [address]- 5684 Aug, [facility] [place] [facility] [address] [id number] [place] [address]- 9477 Jul, 2014 [facility] [place] [facility] [address] [id number] [place] [address]- 3947 Jul, 2014 [facility] [place] [facility] [address] [id number] [place] [address]- 4724 Jul, 2014 [facility] [place] [facility] [address] [facility] [place] [id number] [place] [address]- 3069 Jul, 2014 [facility] [place] [facility] [address] [id number] [place] [address]- 0529 Jul, 2014 [facility] [place] [facility] [address] [id number] [place] [address]- 3076 Jul, [facility] [place] [facility] [address] [facility] [place] [id number] [place] [address]- 1291 Jul, [facility] [place] [facility] [address] [facility] [place] [id number] [place] [address]- 8657 Jul, [facility] [place] [facility] [address] [facility] [place] [id number] [place] [address]- 6517 Jul, [facility] [place] [facility] [address] [id number] [place] [address]- 1278 Jun, [facility] [place] [facility] [address] [id number] [place] [address]- 6437 Jun, [facility] [place] [facility] [address] [facility] [place] [id number] [place] [address]- 7531 Jun, [facility] [place] [facility] [address] [facility] [place] [id number] [place] [address]- 8468 Jun, [facility] [place] [facility] [address] [id number] [place] [address]- 9588 Jun, [facility] [place] [facility] [address] [id number] [place] [address]- 9900 Jun, [facility] [place] [facility] [address] [id number] [place] [address]- 6365 Jun, [facility] [place] [facility] [address] [id number] [place] [address]- 1878 Jun, [facility] [place] [facility] [address] [id number] [place] [address]- 9304 Jun, [facility] [place] [facility] [address] [id number] [place] [address]- 0535 Jun, [facility] [place] [facility] [address] [id number] [place] [address]- 5417 Jun, [facility] [place] [facility] [address] [id number] [place] [address]- 5427 Jun, [facility] [place] [facility] [address] [id number] [place] [address]- 6368 Jun, [facility] [place] [facility] [address] [id number] [place] [address]- 5616 Jun, [facility] [place] [facility] [address] [id number] [place] [address]- 6010 Jun, [facility] [place] [facility] [address] [id number] [place] [address]- 5318 Jun, [facility] [place] [facility] [address] [id number] [place] [address]- 7286 Jun, [facility] [place] [facility] [address] [id number] [place] [address]- 8853 Jun, [facility] [place] [facility] [address] [id number] [place] [address]- 0865 Jun, [facility] [place] [facility] [address] [id number] [place] [address]- 1941 Jun, [facility] [address] [id number] [place] [address]- 5992 Jun, [facility] [place] [facility] [address] [id number] [place] [address]- 5342 Jun, [facility] [address] [id number] [place] [address]- 6514 Jun, [facility] [address] [id number] [place] [address]- 9098 Jun, [facility] [address] [id number] [place] [address]- 1087 Jun, [facility] [address] [id number] [place] [address]- 3134 May, [facility] [address] [id number] [place] [address]- 4986 May, [facility] [address] [id number] [place] [address]- 1154 May, [facility] [address] [id number] [place] [address]- 5801 May, [facility] [address] [id number] [place] [address]- 8693 May, [facility] [address] [id number] [place] [address]- 5941 May, [facility] [address] [id number] [place] [address]- 2538 May, [facility] [place] [facility] [address] [id number] [place] [address]44 May, [facility] [place] [facility] [address] [id number] [place] [address]- 9528 May, [facility] [place] [facility] [address] [id number] [place] [address] May, [facility] [place] [facility] [address] [id number] [place] [address]- 1497 May, [facility] [place] [facility] [address] [id number] [place] [address]- 9905 May, [facility] [place] [facility] [address] [id number] [place] [address]- 4909 May, [facility] [place] [facility] [address] [id number] [place] [address]- 8885 May, [facility] [place] [facility] [address] [id number] [place] [address]- 8175 May, [facility] [place] [facility] [address] [id number] [place] [address]- 5712 May, [facility] [place] [facility] [address] [id number] [place] [address]- 6890 May, [facility] [place] [facility] [address] [id number] [place] [address]- 6683 May, [facility] [place] [facility] [address] [id number] [place] [address]- 7358 Apr, [facility] [place] [facility] [address] [id number] [place] [address]- 3559 Apr, [facility] [place] [facility] [address] [id number], [place] [address]- 6076 Apr, [facility] [place] [facility] [address] [id number], [place] [address]- 3667 Apr, [facility] [place] [facility] [address] [id number] [place] [address]- 8263 Apr, [facility] [place] [facility] [address] [id number] [place] [address]- 1128 Apr, [facility] [place] [facility] [address] [id number], [place] [address]- 6563 Apr, [facility] [place] [facility] [address] [id number], [place] [address]- 4698 Apr, [facility] [place] [facility] [address] [id number] [place] [address]- 1691 Mar, [facility] [place] [facility] [address] [id number] [place] [address]- 1192 Mar, [facility] [place] [facility] [address] [id number] [place] [address]- 5852 Feb, [facility] [place] [facility] [address] [id number] [place] [address]- 1217 Feb, [facility] [place] [facility] [address] [id number] [place] [address]- 4913 Feb, [facility] [place] [facility] [address] [id number] [place] [address]- 2273 Feb, [facility] [place] [facility] [address] [id number] [place] [address]- 3843 Feb, [facility] [place] [facility] [address] [id number] [place] [address]- 4303 Feb, [facility] [place] [facility] [address] [id number] [place] [address]- 3593 Feb, [facility] [place] [facility] [address] [id number] [place] [address]- 2563 Feb, [facility] [place] [facility] [address] [id number] [place] [address]- 6030 Feb, [facility] [place] [facility] [address] [id number] [place] [address]- 1010 Feb, [facility] [place] [facility] [address] [id number] [place] [address]- 4749 Jan, [facility] [place] [facility] [address] [id number] [place] [address]- 2108 Jan, [facility] [place] [facility] [address] [id number] [place] [address]- 0524 Jan, [facility] [place] [facility] [address] [id number] [place] [address]- 3106 Jan, [facility] [place] [facility] [address] [id number] [place] [address]- 3931 Jan, [facility] [place] [facility] [address] [id number] [place] [address]- 3033 Jan, [facility] [place] [facility] [address] [id number] [place] [address]- 2569 Jan, [facility] [place] [facility] [address] [id number] [place] [address]- 9422 Jan, [facility] [place] [facility] [address] [id number] [place] [address]- 6161 Jan, [facility] [place] [facility] [address] [id number] [place] [address]- 7585 Jan, [facility] [place] [facility] [address] [id number] [place] [address]- 8917 Jan, [facility] [place] [facility] [address] [id number] [place] [address]- 5908 Jan, [facility] [place] [facility] [address] [id number] [place] [address]- 2833 Jan, [facility] [place] [facility] [address] [id number] [place] [address]- 2575 Dec, [facility] [place] [facility] [address] [id number] [place] [address]- 5921 Dec, [facility] [place] [facility] [address] [id number] [place] [address]- 3970 Dec, [facility] [place] [facility] [address] [id number] [place] [address]- 8879 Dec, [facility] [place] [facility] [address] [id number] [place] [address]- 7269 Dec, [facility] [place] [facility] [address] [id number] [place] [address]- 5511 Dec, [facility] [place] [facility] [address] [id number] [place] [address]- 4852 Dec, [facility] [place] [facility] [address] [id number] [place] [address]- 6390 Dec, [facility] [place] [facility] [address] [id number] [place] [address]- 0626 Dec, [facility] [place] [facility] [address] [id number] [place] [address]- 2364 Dec, [facility] [place] [facility] [address] [id number] [place] [address]- 0691 Dec, [facility] [place] [facility] [address] [id number] [place] [address]- 3087 Dec, [facility] [place] [facility] [address] [id number] [place] [address]- 5595 Dec, [facility] [place] [facility] [address] [id number] [place] [address]- 4345 Dec, [facility] [place] [facility] [address] [id number] [place] [address]- 0580 Nov, [facility] [place] [facility] [address] [id number] [place] [address]- 2448 Nov, [facility] [place] [facility] [address] [id number] [place] [address]- 0259 Nov, [facility] [place] [facility] [address] [id number], [place] [address]- 6660 Nov, [facility] [place] [facility] [address] [id number] [place] [address]- 5913 Nov, [facility] [place] [facility] [address] [id number] [place] [address]- 4012 Nov, [facility] [place] [facility] [address] [id number] [place] [address]- 8653 Nov, [facility] [place] [facility] [address] [id number] [place] [address]- 9865 Nov, [facility] [place] [facility] [address] [id number] [place] [address]- 3629 October, [facility] [place] [facility] [address] [id number] [place] [address]- 6066 October, [facility] [place] [facility] [address] [id number] [place] [address]- 3836 October, [facility] [place] [facility] [address] [id number] [place] [address]- 9216 October, [facility] [place] [facility] [address] [id number] [place] [address]- 7929 October, [facility] [place] [facility] [address] [id number] [place] [address]- 3877 October, [facility] [place] [facility] [address] [id number] [place] [address]- 4589 October, [facility] [place] [facility] [address] [id number] [place] [address]- 4961 October, [facility] [place] [facility] [address] [id number] [place] [address]- 7239 October, [facility] [place] [facility] [address] [id number] [place] [address]- 3961 October, [facility] [place] [facility] [address] [id number] [place] [address]- 8757 October, [facility] [place] [facility] [address] [id number] [place] [address]- 6522 October, [facility] [place] [facility] [address] [id number] [place] [address]- 6004 October, [facility] [place] [facility] [address] [id number] [place] [address]- 2595 October, [facility] [place] [facility] [address] [id number] [place] [address]- 6757 October, [facility] [place] [facility] [address] [id number] [place] [address]- 5306 October, [facility] [place] [facility] [address] [id number] [place] [address]- 8653 Sep, [facility] [place] [facility] [address] [id number] [place] [address]- 5522 Sep, [facility] [place] [facility] [address] [id number] [place] [address]- 6937 Sep, [facility] [place] [facility] [address] [id number] [place] [address]- 3486 Sep, [facility] [place] [facility] [address] [id number] [place] [address]- 7281 Sep, [facility] [place] [facility] [address] [id number] [place] [address]- 8583 Sep, [facility] [place] [facility] [address] [id number] [place] [address]- 7743 Sep, [facility] [place] [facility] [address] [id number] [place] [address]- 9599 Sep, [facility] [place] [facility] [address] [id number] [place] [address]- 6184 Sep, [facility] [place] [facility] [address] [id number] [place] [address]- 6417 Sep, [facility] [place] [facility] [address] [id number] [place] [address]- 3324 Sep, [facility] [place] [facility] [address] [id number] [place] [address]- 9296 Sep, [facility] [place] [facility] [address] [id number] [place] [address]- 9503 Sep, [facility] [place] [facility] [address] [id number] [place] [address]- 6670 Sep, [facility] [place] [facility] [address] [id number] [place] [address]- 0047 Sep, [facility] [place] [facility] [address] [id number] [place] [address]- 5715 Sep, [facility] [place] [facility] [address] [id number] [place] [address]- 2879 Sep, [facility] [place] [facility] [address] [id number] [place] [address]- 0382 Sep, [facility] [place] [facility] [address] [id number] [place] [address]- 4327 Sep, [facility] [place] [facility] [address] [id number] [place] [address]- 3014 Aug, [facility] [place] [facility] [address] [id number] [place] [address]- 4235 Aug, [facility] [place] [facility] [address] [facility] [id number] [place] [address]- 4800 Aug, [facility] [place] [facility] [address] [id number] [place] [address]- 9148 Aug, [facility] [place] [facility] [address] [id number] [place] [address]- 6392 Jul, [facility] [place] [facility] [address] [facility] [id number] [place] [address]- 1956 Jul, [facility] [place] [facility] [address] [id number] [place] [address]- 2131 Jul, [facility] [place] [facility] [address] [id number] [place] [address]- 2400 Jul, [facility] [place] [facility] [address] [id number] [place] [address]- 3980 Jul, [facility] [place] [facility] [address] [id number] [place] [address]- 0810 Jul, [facility] [place] [facility] [address] [facility] [id number] [place]135 Jul, [facility] [place] [facility] [address] [id number] [place] [address]- 4699 Jul, [facility] [place] [facility] [address] [id number] [place] [address]- 6449 Jul, [facility] [place] [facility] [address] [id number] [place] [address]- 4543 Jul, [facility] [place] [facility] [address] [id number] [place] [address]- 7676 Jul, [facility] [place] [facility] [address] [id number] [place] [address]- 6706 Jul, [facility] [place] [facility] [address] [id number] [place] [address]- 3577 Jun, [facility] [place] [facility] [address] [id number] [place] [address]- 1729 Jun, [facility] [place] [facility] [address] [id number] [place] [address]- 5557 Jun, [facility] [place] [facility] [address] [id number] [place] [address]- 9597 Jun, [facility] [place] [facility] [address] [id number] [place] [address]- 2049 Jun, [facility] [place] [facility] [address] [id number] [place] [address]- 0310 Jun, [facility] [place] [facility] [address] [id number], [place] [address]- 7414 May, [facility] [place] [facility] [address] [id number] [place] [address]- 7977 May, [facility] [place] [facility] [address] [id number] [place] [address]- 2763 Apr, [facility] [place] [facility] [address] [id number] [place] [address]- 3614 Apr, [facility] [place] [facility] [address] [id number], [place] [address]- 2699 19 Apr, 2013 [facility] [place] [facility] [address] [id number], [place] [address]- 3424 19 Apr, 2013 [facility] [place] [facility] [address] [id number], [place] [address]- 2052 18 Apr, 2013 [facility] [place] [facility] [address] [facility] [id number], [place] [address]- 7212 18 Apr, 2013 [facility] [place] [facility] [address] [id number], [place] [address]- 2306 17 Apr, 2013 [facility] [place] [facility] [address] [id number], [place] [address]- 3742 15 Apr, 2013 [facility] [place] [facility] [address] [id number], [place] [address]- 6539 15 Apr, 2013 [facility] [place] [facility] [address] [facility] [place] [id number], [place] [address] 15 Apr, 2013 [facility] [place] [facility] [address] [id number], [place] [address] 15 Apr, 2013 [facility] [place] [facility] [address] [facility] [place] [id number], [place] [address] Apr, [facility] [place] [facility] [address] [facility] [place] [id number], [place] [address] Apr, [facility] [place] [facility] [address] [id number], [place] [address] 31 Mar, 2013 [facility] [place] [facility] [address] [id number], [place] [address] 9565 31 Mar, 2013 [facility] [place] [facility] [address] [id number], [place] [address] Mar, [facility] [place] [facility] [address] [facility] [place] [id number], [place] [address] Mar, [facility] [place] [facility] [address] [facility] [place] [id number], [place] [address] 6544 17 Mar, 2013 [facility] [place] [facility] [address] [id number] [place] [address] 8419 17 Mar, 2013 [facility] [place] [facility] [address] [id number] [place] [address]- 2298 14 Mar, 2013 [facility] [place] [facility] [address] [id number] [place] [address]- 2546 14 Mar, 2013 [facility] [place] [facility] [address] [id number] [place] [address]- 5940 11 Mar, 2013 [facility] [place] [facility] [address] [id number] [place] [address]- 6279 11 Mar, 2013 [facility] [place] [facility] [address] [id number] [place] [address]- 5175 02 Mar, 2013 [facility] [place] [facility] [address] [id number] [place] [address]- 6823 30 Feb, 2013 [facility] [place] [facility] [address] [id number] [place] [address]- 3672 28 Feb, 2013 [facility] [place] [facility] [address] [id number] [place] [address]- 9576 27 Feb, 2013 [facility] [place] [facility] [address] [id number] [place] [address]- 2548 27 Feb, 2013 [facility] [place] [facility] [address] [id number] [place] [address]- 6[address] 20 Feb, 2013 [facility] [place] [facility] [address] [id number] [place] [address]- 9859 10 Feb, 2013 [facility] [place] [facility] [address] [id number] [place] [address] 2545 Jan, [facility] [place] [facility] [address] [id number] [place] [address] 254 Jan, [facility] [place] [facility] [address] [id number] [place] [address] 2549 31 Dec, 2012 [facility] [place] [facility] [address] [id number] [place] [address]- 4236 Dec, [facility] [address] [id number] [place] [address]- 6406 Dec, [facility] [address] [id number] [place] [address]- 7098 Dec, [facility] [address] [id number] [place] [address] 7103 Nov, [facility] [place] [facility] [address] [id number] [place] [address]- 4828 Nov, [facility] [address] [id number] [place] [address]249 Nov, [facility] [address] [id number] [place] [address]- 4559 October, [facility] [address] [id number] [place] [address]- 4489 October, [facility] [address] [id number] [place] [address]- 1750 October, [facility] [address] [id number] [place] [address]- 6983 October, [facility] [address] [id number] [place] [address]- 5274 October, [facility] [address] [id number] [place] [address]- 5786 Sep, [facility] [place] [facility] [address] [id number], [place] [address]- [address] Sep, [facility] [place] [facility] [address] [id number] [place] [address]- 3080 Aug, [facility] [place] [facility] [address] [id number] [place] [address]- 5360 Aug, [facility] [place] [facility] [address] [id number] [place] [address]- 2957 Aug, [facility] [place] [facility] [address] [id number] [place] [address]- 7836 08 Aug, 2012 [facility] [address] [id number] [place] [address]- 4387 Aug, [facility] [address] [id number] [place] [address]- 0294 18 Jul, 2012 [facility] [address] [id number] [place] [address]- 8169 Jul, [facility] [address] [id number] [place] [address]- [address] Jul, [facility] [address] [id number] [place] [address]- 9439 Jul, [facility] [address] [id number] [place] [address]- 0865 Jun, [facility] [address] [id number] [place] [address]- 8258 Jun, [facility] [address] [id number] [place] [address]- 7988 Jun, [facility] [address] [id number] [place] [address]- 0852 Jun, [facility] [address] [id number] [place] [address]- 4320 Jun, [facility] [address] [id number] [place] [address]- 2275 Jun, [facility] [address] [id number] [place] [address]- 8866 Jun, [facility] [place] [facility] [address] [id number] [place] [address]- 0031 Jun, [facility] [address] [id number] [place] [address]- 2126 08 Jun, 2012 [facility] [address] [id number] [place] [address]- 8123 Jun, [facility] [place] [facility] [address] [id number] [place] [address]- 3242 Jun, [facility] [place] [facility] [address] [id number] [place] [address] May, [facility] [place] [facility] [address] [id number] [place] [address] May, [facility] [place] [facility] [address] [id number] [place] [address] Apr, [facility] [place] [facility] [address] [id number] [place] [address]- 2020 Apr, [facility] [place] [facility] [address] [id number] [place] [address]- 1584 Mar, [facility] [place] [facility] [address] [id number] [place] [address]- 7779 Mar, [facility] [place] [facility] [address] [id number], [place] [address]- 1576 Mar, [facility] [place] [facility] [address] [id number] [place] [address]- 6806 Mar, [facility] [place] [facility] [address] [id number], [place] [address]- 2539 Mar, [facility] [place] [facility] [address] [id number], [place] [address]- 9348 Mar, [facility] [place] [facility] [address] [id number], [place] [address]- 2075 Mar, [facility] [place] [facility] [address] [id number] [address] Mar, [facility] [place] [facility] [address] [id number], [place] [address]- 3996 Mar, [facility] [place] [facility] [address] [id number], [place] [address]- 2933 18 Feb, 2012 [facility] [place] [facility] [address] [id number], [place] [address]- 1152 Jan, [facility] [address] [id number] [place] [address]- 9034 Jan, [facility] [place] [facility] [address] [id number] [place] [address] Dec, [facility] [place] [facility] [address] [id number] [place] [address] Dec, [facility] [place] [facility] [address] [id number] [place] [address] Dec, [facility] [place] [facility] [address] [id number] [place] [address] Nov, [facility] [place] [facility] [address] [id number] [place] [address] Nov, [facility] [address] [id number] [place] [address] Nov, [facility] [place] [facility] [address] [id number] [place] [address] Nov, [facility] [place] [facility] [address] [id number] [place] [address] October, [facility] [place] [facility] [address] [facility] [place] [id number] [place] [address] October, [facility] [place] [facility] [address] [id number] [place] [address] Sep, [facility] [place] [facility] [address] [id number] [place] [address] Sep, [facility] [place] [facility] [address] [id number] [place] [address] Aug, [facility] [place] [facility] [address] [id number] [place] [address] Jul, [facility] [place] [facility] [address] [facility] [place] [id number] [place] [address] Jul, [facility] [place] [facility] [address] [id number] [place] [address] Jul, [facility] [place] [facility] [address] [id number] [place] [address] Jul, [facility] [place] [facility] [address] [id number] [place] [address] Jun, [facility] [place] [facility] [address] [id number] [place] [address] 15 May, 2011 [facility] [place] [facility] [address] [id number] [place] [address] 15 May, 2011 [facility] [place] [facility] [address] [id number] [place] [address] 15 May, 2011 [facility] [place] [facility] [address] [id number] [place] [address] May, [facility] [place] [facility] [address] [id number] [place] [address] 08 May, 2011 [facility] [place] [facility] [address] [id number] [place] [address] 14 Apr, 2011 [facility] [place] [facility] [address] [id number] [place] [address] 14 Apr, 2011 [facility] [place] [facility] [address] [id number] [place] [address] 14 Apr, 2011 [facility] [place] [facility] [address] [id number] [place] [address] 07 Apr, 2011 [facility] [place] [facility] [address] [id number] [place] [address] Apr, [facility] [place] [facility] [address] [id number] [place] [address] Mar, [facility] [place] [facility] [address] [id number] [place] [address] Mar, [facility] [place] [facility] [address] [id number], [place] [address] 14 Mar, 2011 [facility] [id number] [place] [address] 14 Mar, 2011 [facility] [id number] [address] [address] Mar, [facility] [id number] [place] [address] Mar, [facility] [id number] [address] Mar, [facility] [id number] [place] [address] Mar, [facility] [id number] [place] [address] Feb, [facility] [id number] [address] May, [facility] [id number] [place] [address] May, [facility] [id number] [place] [address] May, [facility] [id number], [place] [address] Apr, [facility] [id number], [place] [address] Mar, IMMUNIZATIONS No Known Immunizations SOCIAL HISTORY Never Assessed REASON FOR VISIT xanax refill PLAN OF CARE VITAL SIGNS MEDICATIONS Medication Instructions Dosage Frequency Start Date End Date Duration Status Alprazolam 2 MG Orally daily, part of taper 1 tablet 30 days Active Xanax 0.25 MG Orally daily 1 tablet 24h Mar, 30 days Active RESULTS No Results PROCEDURES No Known procedures INSTRUCTIONS MEDICATIONS ADMINISTERED No Known Medications MEDICAL (GENERAL) HISTORY Type Description Date Medical History mycoplasma Medical History Essential hypertension, benign Medical History Other and unspecified hyperlipidemia Medical History Chest pain, unspecified- referred to nirav Lopezl echo 2014 Medical History Muscle weakness (generalized)- [...]
--- OUTSIDE RECORDS SUMMARY | 2018-08-19 09:56 | XMS REPORT ---
Author Author JIMENEZ VELASQUEZ [facility] Address [address] [place] [address] Care Team Providers Care Office Associate Name Role Phone JIMENEZ VELASQUEZ Unavailable PROBLEMS Type Condition ICD9-CM Code FLD15-PT Code Onset Dates Condition Status SNOMED Code Problem Posttraumatic stress disorder F43.10 Active 32450922 Problem Generalized anxiety disorder F41.1 Active 23176688 Problem Panic disorder F41.0 Active 014672394 Problem Nausea R11.0 Active 114096924 Problem Mild intermittent asthma without complication J45.20 Active 574980979 Problem Hot flashes R23.2 Active 262123621 Problem Vitamin D deficiency E55.9 Active 26587988 Problem Mixed hyperlipidemia E78.2 Active 261588651 Problem Low back pain with sciatica, sciatica laterality unspecified, unspecified back pain laterality, unspecified chronicity M54.40 Active 013406588 Problem Bipolar disorder, current episode mixed, moderate F31.62 Active 377415491 Problem Multiple fractures T07.XXXA Active 739017364 Problem Acute right-sided low back pain with right-sided sciatica M54.41 Active 43158745 Problem Essential hypertension I10 Active 05195865 Problem Anxiety F41.9 Active 61201339 Problem Gastroesophageal reflux disease, esophagitis presence not specified K21.9 Active 361699182 Problem Bipolar disorder F31.9 Active 83827379 Problem Depression F32.9 Active 08448152 Problem History of IBS Z87.19 Active 61079982406140 Problem Primary insomnia F51.01 Active 047913162 Problem Genital herpes simplex, unspecified site A60.00 Active 90492624 Problem Hidradenitis suppurativa L73.2 Active 98905554 Problem Tobacco use Z72.0 Active 123290917 ALLERGIES Substance Reaction Event Type Date Status Paxil suicidal Drug Allergy May, Active Morphine Sulfate hives Drug Allergy May, Active Hydrocodone-Acetaminophen rash Drug Allergy May, Active Bactrim DS break out in blisters Drug Allergy May, Active Amoxicillin hives Drug Allergy May, Active Latex rash Non Drug Allergy May, Active Abilify 2 Mg Tablet anger Non Drug Allergy May, Active ENCOUNTERS Encounter Location Date Diagnosis [facility] [address] [address] May, [facility] [id number] [place] [address] 56466- 3954 May, Vulvar irritation N90.89 ; Low back pain M54.5 ; Other specified bacterial agents as the cause of diseases classified elsewhere B96.89 and Acute vaginitis N76.0 [facility] [id number] [place] [address] 49342- 4199 Apr, [facility] [id number] [place] [address] 40644- 7523 Apr, [facility] [id number] [place] [address] 80938- 2396 Apr, Genital herpes simplex, unspecified site A60.00 [facility] [id number] [place] [address] 49951- 0147 Apr, [facility] [id number] [place] [address] 95359- 7550 Apr, [facility] [id number] [place] [address] 96348- 5470 Mar, [facility] [id number] [place] [address] 14411- 3430 Mar, Genital herpes simplex, unspecified site A60.00 [facility] [id number] [place] [address] 17515- 9540 Mar, [facility] [id number] [place] [address] 32791- 1691 Mar, [facility] [id number] [place] [address] 33922- 5709 Mar, Panic disorder F41.0 [facility] [address] [address] Mar, [facility] [id number] [place] [address] 648223- 1426 Mar, Genital herpes simplex, unspecified site A60.00 and Hidradenitis L73.2 [facility] [id number] [place] [address] 45265- 3928 Feb, Panic disorder F41.0 ; Bipolar disorder, current episode mixed, moderate F31.62 and Generalized anxiety disorder F41.1 [facility] [address] [place] [address] 13811- 1414 Feb, Panic disorder F41.0 [facility] [id number] [place] [address] 65658- 8497 Jan, Genital herpes simplex, unspecified site A60.00 [facility] [id number] [place] [address] 48752- 5485 Jan, Panic disorder F41.0 [facility] [address] [place] [address] 87303- 7625 Dec, Diaphoresis R61 and Excessive thirst R63.1 [facility] [address] [place] [address] 54967- 8223 Dec, Panic disorder F41.0 ; Bipolar disorder, current episode mixed, moderate F31.62 and Generalized anxiety disorder F41.1 [facility] [address] [address] 2690 Dec, Panic disorder F41.0 [facility] [id number] [place] [address] 47079- 1677 Nov, Panic disorder F41.0 [facility] [address] [place] [address] 47285- 0975 Nov, Panic disorder F41.0 ; Generalized anxiety disorder F41.1 and Bipolar disorder, current episode mixed, moderate F31.62 [facility] [id number] [place] [address] 70191- 9739 Nov, Panic disorder F41.0 [facility] [id number] [place] [address] 57300- 7349 Nov, Panic disorder F41.0 [facility] [address] 95396- 6621 October, Panic disorder F41.0 [facility] [address] 59289- 7993 October, Panic disorder F41.0 ; Generalized anxiety disorder F41.1 and Bipolar disorder, current episode mixed, moderate F31.62 [facility] [id number] [place] [address] 90042- 0499 October, Panic disorder F41.0 [facility] [id number] [place] [address] 28923- 8857 Sep, Hospital discharge follow-up Z09 ; Concussion without loss of consciousness, initial encounter S06.0X0A and Nausea R11.0 [facility] [id number] [place] [address] 34496- 0944 Sep, [facility] [id number] [place] [address] 82473- 1487 Sep, Panic disorder F41.0 [facility] [id number] [place] [address] 44129- 1413 Sep, [facility] [id number] [place] [address] 56788- 3682 Sep, Well woman exam with routine gynecological exam Z01.419 ; Multiple fractures T07.XXXA ; Hot flashes R23.2 ; Essential hypertension I10 ; Mixed hyperlipidemia E78.2 ; Genital herpes simplex, unspecified site A60.00 ; Alkaline phosphatase elevation R74.8 ; Dysuria R30.0 ; Vitamin D deficiency E55.9 ; Tobacco use Z72.0 ; High risk sexual behavior Z72.51 and Encounter for immunization Z23 [place] [address] [place] [address] 45370- 5719 Aug, Panic disorder F41.0 ; Generalized anxiety disorder F41.1 and Bipolar disorder, current episode mixed, moderate F31.62 [facility] [id number] [place] [address] 41174- 4428 Aug, [facility] [id number] [place] [address] 165421- 0832 Jul, Panic disorder F41.0 ; Generalized anxiety disorder F41.1 and Bipolar disorder, current episode mixed, moderate F31.62 [facility] [id number] [place] [address] 15782- 6738 Jul, [facility] [id number] [place] [address] 03788- 0970 Jul, [facility] [address] [place] [address] 19687- 7675 Jul, Effusion, right knee M25.461 ; Acute pain of right knee M25.561 and Acute pain of left knee M25.562 [facility] [address] [place] [address] 49175- 4140 Jun, Bipolar disorder, current episode mixed, moderate F31.62 ; Generalized anxiety disorder F41.1 and Panic disorder F41.0 [facility] [id number] [place] [address] 87281- 9170 May, Bipolar disorder, current episode mixed, moderate F31.62 ; Generalized anxiety disorder F41.1 and Panic disorder F41.0 [facility] [id number] [place] [address] 48703- 9575 May, Bipolar disorder, current episode mixed, moderate F31.62 [facility] [address] [place] [address] 59745- 0206 May, Bipolar disorder, current episode mixed, moderate F31.62 [facility] [address] [place] [address] 86101- 5328 07 Apr, 2017 Bipolar disorder, current episode mixed, moderate F31.62 ; Generalized anxiety disorder F41.1 and Panic disorder F41.0 [facility] [id number] [place] [address] 88690- 8146 17 Mar, 2017 [facility] [id number] [place] [address] 75776- 6930 10 Mar, 2017 Bipolar disorder, current episode mixed, moderate F31.62 ; Generalized anxiety disorder F41.1 and Panic disorder F41.0 [facility] [id number] [place] [address] 45717- 0741 27 Feb, 2017 [facility] [id number] [place] [address] 19091- 3599 Feb, Posttraumatic stress disorder F43.10 [facility] [id number] [place] [address] 04658- 7596 20 Feb, 2017 Gastroesophageal reflux disease, esophagitis presence not specified K21.9 [facility] [id number] [place] [address] 04706- 1068 13 Feb, 2017 [facility] [id number] [place] [address] 59173- 6577 06 Feb, 2017 Knee pain, right anterior M25.561 [facility] [id number] [place] [address] 15604- 2068 05 Feb, 2017 HSV (herpes simplex virus) infection B00.9 [facility] [id number] [place] [address] 99182- 2073 05 Feb, 2017 [facility] [id number] [place] [address] 04206- 8587 Jan, [facility] [id number] [place] [address] 37608- 3908 Jan, Posttraumatic stress disorder F43.10 [facility] [address] [place] [address]- 1893 Jan, Foot pain, left M79.672 [facility] [id number] [place] [address] 84115- 5665 Jan, [facility] [id number] [place] [address] 13479- 5224 Jan, Lumbar radiculopathy, acute M54.16 ; Muscle spasm of back M62.830 and Right hip pain M25.551 [facility] [id number] [place] [address] 02171- 8823 Jan, Lumbar radiculopathy, acute M54.16 [facility] [id number] [place] [address] 56888- 2845 Jan, [facility] [id number] [place] [address] 03118- 3095 Jan, [facility] [id number] [place] [address] 72242- 9261 Dec, Lumbar radiculopathy, acute M54.16 ; Acute renal insufficiency N28.9 and Muscle spasm of back M62.830 [facility] [id number] [place] [address] 08620- 7873 Dec, [facility] [id number] [place] [address] 94052- 9745 Dec, [facility] [id number] [place] [address] 52382- 9753 Dec, [facility] [address] [place] [address] 76820 -7830 Dec, Low back pain with sciatica, sciatica laterality unspecified, unspecified back pain laterality, unspecified chronicity M54.40 and Acute right-sided low back pain with right-sided sciatica M54.41 [facility] [id number] [place] [address] 72896- 9795 Dec, Posttraumatic stress disorder F43.10 [facility] [address] [address]- 5594 Dec, [facility] [id number] [place] [address] 68167- 9549 Dec, Pain in right thigh M79.651 and Acute right-sided low back pain without sciatica M54.5 [facility] [address] [place] [address] 77764- 9778 Dec, Posttraumatic stress disorder F43.10 and Major depressive disorder, recurrent episode with anxious distress F33.9 [facility] [address] [place] [address] 35026 -1087 Dec, [facility] [id number] [place] [address] 72037- 0531 Nov, [facility] [id number] [place] [address] 16335- 7563 October, [facility] [address] [address]- 8126 October, [facility] [id number] [place] [address] 59170- 5287 October, Knee pain, right anterior M25.561 [facility] [address] [address]- 8691 October, Knee pain, right anterior M25.561 [facility] [address] [address]- 2811 October, [facility] [address] [address]- 0686 October, [facility] [id number] [place] [address] 20602- 2733 October, [facility] [address] [address] -3449 Sep, [facility] [id number] [place] [address] 96468- 7474 18 Sep, 2016 [facility] [id number] [place] [address] 82983- 2921 Sep, Essential hypertension I10 [facility] [id number] [place] [address] 90128- 9942 11 Sep, 2016 Essential hypertension I10 [facility] [id number] [place] [address] 39384- 1663 Sep, [facility] [id number] [place] [address] 96449- 6267 Sep, Posttraumatic stress disorder F43.10 and Major depressive disorder, recurrent episode with anxious distress F33.9 [facility] [address] [place] [address] 97344- 1947 Sep, Multiple fractures T14.8 ; Alkaline phosphatase elevation R74.8 and Vitamin D deficiency E55.9 [facility] [address] [place] [address] 66066- 2939 Sep, [facility] [address] [place] [address] 47251- 4396 Sep, Elevated serum creatinine R79.89 ; Fracture of foot, left, closed, initial encounter S92.902A and Alkaline phosphatase elevation R74.8 [facility] [address] [place] [address] 08263- 9231 Sep, Elevated serum creatinine R79.89 and Essential hypertension I10 [facility] [id number] [place] [address] 16292- 4704 Sep, [facility] [id number] [place] [address] 73091- 9323 Aug, Gastroesophageal reflux disease, esophagitis presence not specified K21.9 [facility] [address] [place] [address] 30595- 9026 Aug, Essential hypertension I10 ; Fracture of foot, left, closed , initial encounter S92.902A and Alkaline phosphatase elevation R74.8 [facility] [id number] [place] [address] 68983- 0526 17 Jul, 2016 Genital herpes simplex, unspecified site A60.00 [facility] [id number] [place] [address] 09585- 3379 06 Jul, 2016 Essential hypertension I10 [facility] [id number] [place] [address] 78394- 8073 Jun, Cough R05 and Wheezing R06.2 [facility] [id number] [place] [address] 92987- 2484 Jun, Essential hypertension I10 [facility] [id number] [place] [address] 85368- 2645 May, Essential hypertension I10 [facility] [id number] [place] [address] 81838- 6801 May, Posttraumatic stress disorder F43.10 and Major depressive disorder, recurrent episode with anxious distress F33.9 [facility] [address] [place] [address] 51900- 7418 Apr, [facility] [id number] [place] [address] 01021- 8439 Apr, [facility] [address] [place] [address] 62629- 5383 Apr, [facility] [id number] [place] [address] 63876- 9135 Mar, [facility] [id number] [place] [address] 87900- 0439 Feb, [facility] [id number] [place] [address] 69103- 3298 Jan, [facility] [id number] [place] [address] 94765- 9849 Jan, Essential hypertension I10 ; Mixed hyperlipidemia [...] S92.302A [facility] [id number] [place] [address] 49709 -8777 Jan, Localized edema R60.0 [facility] [address] 06761- 1994 Dec, [facility] [address] 70474- 6851 Dec, [facility] [id number] [place] [address] 90189- 2683 Dec, [facility] [id number] [place] [address] 44259 -7745 Dec, Cough R05 ; Tobacco dependence F17.200 and Costochondritis , acute M94.0 [facility] [id number] [place] [address] 97852- 0195 Dec, Major depression, recurrent F33.9 ; Bipolar disorder, unspecified F31.9 and Posttraumatic stress disorder F43.10 [facility] [id number] [place] [address] 51592- 9947 Nov, [facility] [id number] [place] [address] 64549- 8289 Nov, [facility] [id number] [place] [address] 95885- 7665 October, [facility] [id number] [place] [address] 57906 -1224 October, Acute upper respiratory infection, unspecified J06.9 [facility] [address] [place] [address] 30940- 2133 October, [facility] [address] [place] [address] 61259- 8477 Sep, Bipolar affective disorder, remission status unspecified F31.9 and Post-traumatic stress disorder F43.10 [facility] [id number] [place] [address] 54824- 7911 Sep, Bipolar disorder, unspecified F31.9 ; Posttraumatic stress disorder F43.10 and Major depression, recurrent F33.9 [facility] [id number] [place] [address] 95739- 1537 16 Aug, 2015 Edema R60.9 ; Fatigue R53.83 and Polydipsia R63.1 [facility] [id number] [place] [address] 57462- 7846 Aug, [facility] [id number] [place] [address] 07203- 8243 Aug, [facility] [id number] [place] [address] 74747- 3850 Jul, [facility] [id number] [place] [address] 64308- 0130 Jul, [facility] [id number] [place] [address] 41747- 9129 Jun, [facility] [id number] [place] [address] 55591- 8431 Jun, [facility] [id number] [place] [address] 46239- 9623 Jun, [facility] [address] [place] [address] 95988- 7622 Jun, [facility] [id number] [place] [address] 76593- 7994 May, Mixed hyperlipidemia E78.2 [facility] [address] [address]- 3755 May, Well woman exam Z01.419 ; History of herpes simplex infection Z86.19 ; Papanicolaou smear Z12.4 ; History of depression Z86.59 ; History of anxiety Z86.59 ; Lipoma of other specified sites D17.79 ; Hidradenitis suppurativa L73.2 ; Routine screening for STI (sexually transmitted infection) Z11.3 and Tobacco use Z72.0 [facility] [address] [place] [address] 30707- 4629 May, Hematuria R31.9 ; Essential hypertension I10 ; Pure hypercholesterolemia E78.0 and Hidradenitis L73.2 [facility] [address] 08868- 7642 May, Upper respiratory symptom R09.89 and Allergic rhinitis J30.[address] 88833- 8170 May, [address] 89143- 3302 May, [facility] [address] 94759- 4279 May, Bipolar disorder, unspecified F31.9 ; Posttraumatic stress disorder F43.10 and Major depression, recurrent F33.9 [place] [id number] [place] [address] 20247- 7638 May, [facility] [id number] [place] [address] 04512- 5509 May, [facility] [id number] [place] [address] 62994- 8033 Apr, [facility] [address] [place] [address] 17845- 3229 Apr, [facility] [address] 34988- 9520 Mar, [facility] [id number] [place] [address] 39669- 2673 Mar, [facility] [address] [place] [address] [address]- 8885 Mar, [facility] [address] [address]- 1052 18 Feb, 2015 Major depressive disorder, recurrent episode, moderate 296.32 and Post traumatic stress disorder (PTSD) 309.81 [facility] [address] [id number] 10 Feb, 2015 [facility] [id number] [place] [address] [phone] 08 Feb, 2015 [facility] [id number] [place] [address] [phone] Jan, Cough 786.2 [facility] [id number] [place] [address] [phone] Jan, Depression, major, recurrent, moderate 296.32 and Post traumatic stress disorder (PTSD) 309.81 [facility] [id number] [place] [address] [phone] Jan, [facility] [id number] [place] [address] [phone] Dec, [facility] [id number] [place] [address] 40914- [phone] Dec, Generalized anxiety disorder 300.02 and Depression, major, recurrent, moderate 296.32 [facility] [address] [address] Dec, [facility] [address] [address] Dec, High risk medication use V58.69 [facility] [id number] [place] [address] [phone]- [phone] Dec, High risk medication use V58.69 [facility] [address] [address] Dec, [facility] [id number] [address] 2546 Nov, Generalized anxiety disorder 300.02 and Major depressive disorder, recurrent episode, moderate 296.32 [facility] [address] [id number] [id number] Nov, Dental examination V72.2 [facility] [address] [id number] Nov, Dental examination V72.2 [facility] [id number] [place] [address] 2546 Nov, [facility] [address] [id number] Nov, Dental examination V72.2 [facility] [id number] [place] [id number] Nov, Dental examination V72.2 [facility] [id number] [place] [address]- 3946 October, Major depressive disorder, recurrent episode, moderate 296.32 and Generalized anxiety disorder 300.02 [facility] [id number] [address] 9[address] October, [facility] [id number] [address] 2874 October, [facility] [address] [address] 8066 October, [facility] [id number] [address] Sep, [facility] [address] [address] Sep, [facility] [id number] [address] 2546 Aug, [facility] [address] [address] 4396 Aug, [facility] [id number] [place] [address] [place] [address]69 13 Aug, 2014 [facility] [place] [facility] [address] [id number] [place] [address] 3874 13 Aug, 2014 [facility] [place] [facility] [address] [id number] [place] [address]- 0680 10 Aug, 2014 [facility] [place] [facility] [address] [id number] [place] [address]- 8681 03 Aug, 2014 [facility] [place] [facility] [address] [id number] [place] [address]- 8448 03 Aug, 2014 [facility] [place] [facility] [address] [id number] [place] [address]- 9670 16 Jul, 2014 [facility] [place] [facility] [address] [id number] [place] [address]- 7358 16 Jul, 2014 [facility] [place] [facility] [address] [id number] [place] [address]- 5880 16 Jul, 2014 [facility] [place] [facility] [address] [id number] [place] [address]- 6354 16 Jul, 2014 [facility] [place] [facility] [address] [id number] [place] [address]- 4949 Jul, 2014 [facility] [place] [facility] [address] [id number] [place] [address]- 0716 Jul, 2014 [facility] [place] [facility] [address] [id number] [place] [address]- 3211 Jul, 2014 [facility] [place] [facility] [address] [id number] [place] [address]- 8623 Jul, [facility] [place] [facility] [address] [id number] [place] [address]- 1008 Jul, [facility] [place] [facility] [address] [id number] [place] [address]- 7700 Jun, [facility] [place] [facility] [address] [id number] [place] [address]- 4724 Jun, [facility] [place] [facility] [address] [id number] [place] [address]- 4838 Jun, [facility] [place] [facility] [address] [id number] [place] [address]- 5806 Jun, [facility] [place] [facility] [address] [id number] [place] [address]- 4596 Jun, [facility] [place] [facility] [address] [id number] [place] [address]- 1008 Jun, [facility] [place] [facility] [address] [id number] [place] [address]- 1816 Jun, [facility] [place] [facility] [address] [id number] [place] [address]- 2018 Jun, [facility] [place] [facility] [address] [id number] [place] [address]- 0145 Jun, [facility] [place] [facility] [address] [id number] [place] [address]- 3033 Jun, [facility] [place] [facility] [address] [id number] [place] [address]- 8280 Jun, [facility] [place] [facility] [address] [id number] [place] [address]- 8551 Jun, [facility] [place] [facility] [address] [id number] [place] [address]- 9685 Jun, [facility] [place] [facility] [address] [id number] [address]- 7120 Jun, [facility] [place] [facility] [address] [id number] [place] [address]- 7450 Jun, [facility] [place] [facility] [address] [id number] [place] [address]- 6535 Jun, [facility] [place] [facility] [address] [id number] [place] [address]- 6091 Jun, [facility] [place] [facility] [address] [id number] [place] [address]- 9841 Jun, [facility] [place] [facility] [address] [id number] [place] [address]- 9461 Jun, [facility] [place] [facility] [address] [id number] [place] [address]- 6810 Jun, [facility] [place] [facility] [address] [id number] [place] [address]- 3403 Jun, [facility] [place] [facility] [address] [id number] [place] [address]- 9540 Jun, [facility] [place] [facility] [address] [id number] [place] [address]- 0231 Jun, [facility] [place] [facility] [address] [id number] [place] [address]- 3495 Jun, [facility] [place] [facility] [address] [id number] [place] [address]- 8230 Jun, [facility] [place] [facility] [address] [id number] [place] [address]- 0404 May, [facility] [place] [facility] [address] [id number] [place] [address]- 1139 May, [facility] [place] [facility] [address] [id number] [place] [address]- 1311 May, [facility] [place] [facility] [address] [id number] [place] [address]- 1826 May, [facility] [place] [facility] [address] [id number] [place] [address]- 2452 May, [facility] [place] [facility] [address] [id number] [place] [address]- 2136 May, [facility] [place] [facility] [address] [id number] [place] [address]- 0759 May, [facility] [place] [facility] [address] [id number] [place] [address]- 5532 May, [facility] [place] [facility] [address] [id number] [place] [address]- 0539 May, [facility] [place] [facility] [address] [id number] [place] [address]- 8900 May, [facility] [place] [facility] [address] [id number] [place] [address]- 1758 May, [facility] [place] [facility] [address] [id number] [place] [address]- 3668 May, [facility] [place] [facility] [address] [id number] [place] [address]- 6423 May, [facility] [place] [facility] [address] [id number] [place] [address]- 7625 May, [facility] [place] [facility] [address] [id number] [place] [address]- 0575 May, [facility] [place] [facility] [address] [id number] [place] [address]- 9339 May, [facility] [place] [facility] [address] [id number] [place] [address]- 4050 May, [facility] [place] [facility] [address] [id number] [place] [address]- 2636 May, [facility] [place] [facility] [address] [id number] [place] [address]- 4660 Apr, [facility] [place] [facility] [address] [id number] [place] [address]- 3165 Apr, [facility] [place] [facility] [address] [id number] [place] [address]- 0464 Apr, [facility] [place] [facility] [address] [id number] [place] [address]- 9481 Apr, [facility] [place] [facility] [address] [id number] [place] [address]- 8530 Apr, [facility] [place] [facility] [address] [id number] [place] [address]- 9427 Apr, [facility] [place] [facility] [address] [id number] [place] [address]- 3267 Apr, [facility] [place] [facility] [address] [id number] [place] [address]- 9050 Apr, [facility] [place] [facility] [address] [id number] [place] [address]- 6185 Mar, [facility] [place] [facility] [address] [id number] [place] [address]- 2426 Mar, [facility] [place] [facility] [address] [id number] [place] [address]- 8197 Feb, [facility] [place] [facility] [address] [id number] [place] [address]- 2917 Feb, [facility] [place] [facility] [address] [id number] [place] [address]- 6631 Feb, [facility] [place] [facility] [address] [id number] [place] [address]- 3145 12 Feb, 2014 [facility] [place] [facility] [address] [id number] [place] [address]- 2832 Feb, [facility] [place] [facility] [address] [id number] [place] [address]- 0943 12 Feb, 2014 [facility] [place] [facility] [address] [id number] [place] [address]- 7850 10 Feb, 2014 [facility] [place] [facility] [address] [id number] [address]- 5014 10 Feb, 2014 [facility] [place] [facility] [address] [id number] [place] [address]- 2115 08 Feb, 2014 [facility] [place] [facility] [address] [id number] [place] [address]- 8588 08 Feb, 2014 [facility] [place] [facility] [address] [id number] [place] [address]- 1108 Jan, [facility] [place] [facility] [address] [id number] [place] [address]- 3989 Jan, [facility] [place] [facility] [address] [id number] [place] [address]- 9704 Jan, [facility] [place] [facility] [address] [id number] [place] [address]- 4233 Jan, [facility] [place] [facility] [address] [id number] [place] [address]- 2109 Jan, [facility] [place] [facility] [address] [id number] [place] [address]- 5415 Jan, [facility] [place] [facility] [address] [id number] [place] [address]- 4783 Jan, [facility] [place] [facility] [address] [id number] [place] [address]- 6722 Jan, [facility] [place] [facility] [address] [id number] [place] [address]- 1080 Jan, [facility] [place] [facility] [address] [id number] [place] [address]- 0774 Jan, [facility] [place] [facility] [address] [id number] [place] [address]- 4906 Jan, [facility] [place] [facility] [address] [id number] [place] [address]- 8132 Jan, [facility] [place] [facility] [address] [id number] [place] [address]- 9409 Jan, [facility] [place] [facility] [address] [id number] [place] [address]- 9216 Dec, [facility] [place] [facility] [address] [id number] [place] [address]- 9973 Dec, [facility] [place] [facility] [address] [id number] [place] [address]- 8574 Dec, [facility] [place] [facility] [address] [id number] [place] [address]- 1514 Dec, [facility] [place] [facility] [address] [id number] [place] [address]- 8260 Dec, [facility] [place] [facility] [address] [id number] [place] [address]- 9897 Dec, [facility] [place] [facility] [address] [id number] [place] [address]- 4805 Dec, [facility] [place] [facility] [address] [id number] [place] [address]- 2966 Dec, [facility] [place] [facility] [address] [id number] [place] [address]- 3794 Dec, [facility] [place] [facility] [address] [id number] [place] [address]- 3397 Dec, [facility] [place] [facility] [address] [id number] [place] [address]- 1678 Dec, [facility] [place] [facility] [address] [id number] [place] [address]- 8666 Dec, [facility] [place] [facility] [address] [id number] [place] [address]- 1714 Dec, [facility] [place] [facility] [address] [id number] [place] [address]- 3152 Dec, [facility] [place] [facility] [address] [id number] [place] [address]- 8354 Nov, [facility] [place] [facility] [address] [id number] [place] [address]- 8107 Nov, [facility] [place] [facility] [address] [id number] [place] [address]- 4421 Nov, [facility] [place] [facility] [address] [id number] [place] [address]- 9757 Nov, [facility] [place] [facility] [address] [id number] [place] [address]- 4713 Nov, [facility] [place] [facility] [address] [id number] [place] [address]- 8383 Nov, [facility] [place] [facility] [address] [id number] [place] [address]- 7504 Nov, [facility] [place] [facility] [address] [id number] [place] [address]- 5402 Nov, [facility] [place] [facility] [address] [id number] [place] [address]- 2198 October, [facility] [place] [facility] [address] [id number] [place] [address]- 1074 October, [facility] [place] [facility] [address] [id number] [place] [address]- 7359 October, [facility] [place] [facility] [address] [id number] [place] [address]- 6253 October, [facility] [place] [facility] [address] [id number] [place] [address]- 6102 October, [facility] [place] [facility] [address] [id number] [place] [address]- 0309 October, [facility] [place] [facility] [address] [id number] [place] [address]- 0972 October, [facility] [place] [facility] [address] [id number] [place] [address]- 3885 October, [facility] [place] [facility] [address] [id number] [place] [address]- 0455 October, [facility] [place] [facility] [address] [id number] [place] [address]- 5019 October, [facility] [place] [facility] [address] [id number] [place] 1427 October, [facility] [place] [facility] [address] [id number] [place] [address]- 0343 October, [facility] [place] [facility] [address] [id number] [place] [address]- 5465 October, [facility] [place] [facility] [address] [id number] [place] [address]- 5007 October, [facility] [address] [id number] [place] [address]- 1324 October, [facility] [place] [facility] [address] [id number] [place] [address]- 2131 October, [facility] [address] [id number] [place] [address]- 4650 Sep, [facility] [place] [facility] [address] [id number] [place] [address]- 0501 Sep, [facility] [place] [facility] [address] [id number] [place] [address]- 1831 Sep, [facility] [place] [facility] [address] [id number] [place] [address]- 1992 Sep, [facility] [place] [facility] [address] [id number] [place] [address]- 0099 Sep, [facility] [address] [id number] [place] [address]- 1222 Sep, [facility] [place] [facility] [address] [id number] [place] [address]- 3824 Sep, [facility] [place] [facility] [address] [id number] [place] [address]- 6404 Sep, [facility] [place] [facility] [address] [id number] [place] [address]- 6786 Sep, [facility] [place] [facility] [address] [id number] [place] [address]- 8206 Sep, [facility] [place] [facility] [address] [id number] [place] [address]- 1564 Sep, [facility] [place] [facility] [address] [id number] [place] [address]- 1180 Sep, [facility] [place] [facility] [address] [id number] [place] [address]- 9436 Sep, [facility] [place] [facility] [address] [id number] [place] [address]- 3262 Sep, [facility] [place] [facility] [address] [id number] [place] [address]- 4154 Sep, [facility] [place] [facility] [address] [id number] [place] [address]- 2684 Sep, [facility] [place] [facility] [address] [id number] [place] [address]- 5471 Sep, [facility] [place] [facility] [address] [id number] [place] [address]- 5512 Sep, [facility] [place] [facility] [address] [id number] [place] [address]- 4652 Sep, [facility] [place] [facility] [address] [id number] [place] [address]- 4760 Aug, [facility] [place] [facility] [address] [id number] [place] [address]- 9720 Aug, [facility] [place] [facility] [address] [id number] [place] [address]- 4118 Aug, [facility] [place] [facility] [address] [id number] [place] [address]- 4872 Aug, [facility] [place] [facility] [address] [id number] [place] [address]- 8177 Jul, [facility] [place] [facility] [address] [id number] [place] [address]- 6634 Jul, [facility] [place] [facility] [address] [id number] [place] [address]- 2194 Jul, [facility] [place] [facility] [address] [id number] [place] [address]- 8000 Jul, [facility] [place] [facility] [address] [id number] [place] [address]- 9805 Jul, [facility] [place] [facility] [address] [id number] [place] [address]- 1343 14 Jul, 2013 [facility] [place] [facility] [address] [id number] [place] [address]- 1297 07 Jul, 2013 [facility] [place] [facility] [address] [id number] [place] [address]- 9026 07 Jul, 2013 [facility] [place] [facility] [address] [id number] [place] [address]- 9352 Jul, [facility] [place] [facility] [address] [id number] [place] [address]- 3463 Jul, [facility] [place] [facility] [address] [id number] [place] [address]- 5949 Jul, [facility] [place] [facility] [address] [id number] [place] [address]- 0873 Jul, [facility] [place] [facility] [address] [id number] [place] [address]- 3689 Jun, [facility] [place] [facility] [address] [id number] [place] [address]- 9371 Jun, [facility] [place] [facility] [address] [id number] [place] [address]- 2169 Jun, [facility] [place] [facility] [address] [id number] [place] [address]- 1157 Jun, [facility] [place] [facility] [address] [id number] [place] [address]- 2929 Jun, [facility] [place] [facility] [address] [id number] [place] [address]- 1936 Jun, [facility] [place] [facility] [address] [id number] [place] [address]- 3207 May, [facility] [place] [facility] [address] [id number] [place] [address]- 2230 May, [facility] [place] [facility] [address] [id number] [place] [address]- 8954 Apr, [facility] [place] [facility] [address] [id number] [place] [address]- 2586 21 Apr, 2013 [facility] [place] [facility] [address] [id number] [place] [address]- 5216 19 Apr, 2013 [facility] [place] [facility] [address] [id number] [place] [address]- 0566 19 Apr, 2013 [facility] [place] [facility] [address] [id number] [place] [address]- 6378 18 Apr, 2013 [facility] [place] [facility] [address] [id number] [place] [address]- 8361 18 Apr, 2013 [facility] [place] [facility] [address] [id number] [place] [address]- 5799 17 Apr, 2013 [facility] [place] [facility] [address] [id number] [place] [address]- 0746 15 Apr, 2013 [facility] [place] [facility] [address] [id number] [place] [address]- 8611 15 Apr, 2013 [facility] [place] [facility] [address] [id number] [place] [address]- 1471 15 Apr, 2013 [facility] [place] [facility] [address] [id number] [place] [address]- 3359 15 Apr, 2013 [facility] [place] [facility] [address] [id number] [place] [address]- 9829 13 Apr, 2013 [facility] [place] [facility] [address] [id number] [place] [address]- 5262 Apr, [facility] [place] [facility] [address] [id number] [place] [address]- 8352 Mar, [facility] [place] [facility] [address] [id number] [place] [address]- 7037 Mar, [facility] [place] [facility] [address] [id number] [place] [address] Mar, [facility] [place] [facility] [address] [id number] [place] [address]79 25 Mar, 2012 [facility] [address] [id number] [place] [address] 8440 17 Mar, 2013 [facility] [place] [facility] [address] [id number] [place] [address] 7836 17 Mar, 2013 [facility] [address] [id number] [place] [address] 8922 14 Mar, 2013 [facility] [place] [facility] [address] [id number] [place] [address]- 5772 14 Mar, 2013 [facility] [address] [id number] [place] [address] 11 Mar, 2013 [facility] [place] [facility] [address] [id number] [place] [address]- 2361 11 Mar, 2013 [facility] [address] [id number] [place] [address] 02 Mar, 2013 [facility] [address] [id number] [place] [address] 3495 30 Feb, 2012 [facility] [place] [facility] [address] [id number] [place] [address] 2542 28 Feb, 2012 [facility] [place] [facility] [address] [id number] [place] [address]- 2545 27 Feb, 2012 [facility] [place] [facility] [address] [id number] [place] [address] 2546 27 Feb, 2012 [facility] [place] [facility] [address] [id number] [place] [address]- 2543 20 Feb, 2012 [facility] [place] [facility] [address] [id number] [place] [address] 254 10 Feb, 2013 [facility] [place] [facility] [address] [id number] [place] [address]- [address]40 29 Jan, 2013 [facility] [place] [facility] [address] [id number] [place] [address]- 285[address] Jan, [facility] [place] [facility] [address] [id number] [place] [address] 8563 Dec, [facility] [address] [id number] [place] [address]- [address] Dec, [facility] [address] [id number] [place] [address] 46[address] Dec, [facility] [place] [facility] [address] [id number] [place] [address]- 9108 Dec, [facility] [address] [id number] [place] [address]- 7708 Nov, [facility] [address] [id number] [place] [address] 4156 Nov, [facility] [address] [id number] [place] [address]- 0269 Nov, [facility] [address] [id number] [place] [address]- [address]286 October, [facility] [address] [id number] [place] [address]- 1405 October, [facility] [address] [id number] [place] [address]- 9970 October, [facility] [address] [id number] [place] [address]695 October, [facility] [place] [facility] [address] [id number] [place] [address]- 3504 October, [facility] [place] [facility] [address] [id number] [place] [address]- 6538 Sep, [facility] [place] [facility] [address] [id number] [place] [address]- 5471 Sep, [facility] [place] [facility] [address] [id number] [place] [address]242 Aug, [facility] [place] [facility] [address] [id number] [place] [address]- 8025 15 Aug, 2012 [facility] [address] [id number] [place] [address]- 8569 Aug, [facility] [place] [facility] [address] [id number] [place] [address]- 8257 08 Aug, 2012 [facility] [place] [facility] [address] [id number] [place] [address]- 6672 Aug, [facility] [place] [facility] [address] [id number] [place] [address]- 8928 18 Jul, 2012 [facility] [place] [facility] [address] [id number] [place] [address]- 0911 Jul, [facility] [place] [facility] [address] [id number] [place] [address]- 6[address] Jul, [facility] [address] [id number] [place] [address]- 9380 Jul, [facility] [place] [facility] [address] [id number] [place] [address]- [address]862 Jun, [facility] [address] [id number] [place] [address]- 5513 Jun, [facility] [place] [facility] [address] [id number] [place] [address]- 2431 Jun, [facility] [address] [id number] [place] [address]- 9006 Jun, [facility] [place] [facility] [address] [id number] [place] [address]- 1274 Jun, [facility] [place] [facility] [address] [id number] [place] [address]- 3660 Jun, [facility] [place] [facility] [address] [id number] [place] [address]- 5680 Jun, [facility] [place] [facility] [address] [id number] [place] [address] 09 Jun, 2012 [facility] [place] [facility] [address] [id number] [place] [address]- 8749 Jun, [facility] [place] [facility] [address] [id number] [place] [address]- 6324 Jun, [facility] [place] [facility] [address] [id number] [place] [address]- 2773 Jun, [facility] [place] [facility] [address] [id number] [place] [address]- [address]184 May, [facility] [place] [facility] [address] [id number] [place] [address]- 8477 May, [facility] [place] [facility] [address] [id number] [place] [address]- 4576 Apr, [facility] [place] [facility] [address] [id number] [place] [address]- 9167 Apr, [facility] [place] [facility] [address] [id number] [place] [address]- 7486 Mar, [facility] [place] [facility] [address] [id number] [place] [address]- 5074 Mar, [facility] [place] [facility] [address] [id number] [place] [address]- 9790 30 Mar, 2012 [facility] [place] [facility] [address] [id number] [place] [address]- 4591 30 Mar, 2012 [facility] [place] [facility] [address] [id number] [place] [address]- 0831 Mar, [facility] [place] [facility] [address] [id number] [place] [address] Mar, [facility] [place] [facility] [address] [id number] [place] [address]- 1680 Mar, [facility] [facility] [address] [id number] [place] [address] 16 Mar, 2012 [facility] [place] [facility] [address] [id number] [place] [address] Mar, [facility] [place] [facility] [address] [id number] [place] [address] Feb, [facility] [place] [facility] [address] [id number] [place] [address] Jan, [facility] [place] [facility] [address] [id number] [place] [address] Jan, [facility] [place] [facility] [address] [id number] [place] [address] Dec, [facility] [place] [facility] [address] [id number] [place] [address] Dec, [facility] [place] [facility] [address] [id number] [place] [address] Dec, [facility] [place] [facility] [address] [id number] [place] [address] Nov, [facility] [place] [facility] [address] [id number] [place] [address] Nov, [facility] [place] [facility] [address] [id number] [place] [address] Nov, [facility] [place] [facility] [address] [id number] [place] [address] Nov, [facility] [place] [facility] [address] [id number] [place] [address] October, [facility] [place] [facility] [address] [id number] [place] [address] October, [facility] [address] [id number] [place] [address] Sep, [facility] [place] [facility] [address] [id number] [place] [address] 2006 Sep, [facility] [address] [id number] [place] [address] Aug, [facility] [address] [id number] [place] [address] 10 Jul, 2011 [facility] [address] [id number] [place] [address] 04 Jul, 2011 [facility] [place] [facility] [address] [id number] [place] [address] 02 Jul, 2011 [facility] [address] [id number] [place] [address] Jul, [facility] [address] [id number] [place] [address] Jun, [facility] [place] [facility] [address] [id number] [place] [address] 15 May, 2011 [facility] [address] [id number] [place] [address] 15 May, 2011 [facility] [address] [id number] [place] [address] 15 May, 2011 [facility] [address] [id number] [place] [address] 7966 13 May, 2011 [facility] [address] [id number] [place] [address] 08 May, 2011 [facility] [address] [facility] [id number] [place] [address] 14 Apr, 2011 [facility] [address] [id number] [place] [address] 14 Apr, 2011 [facility] [address] [id number] [place] [address] 14 Apr, 2011 [facility] [facility] [address] [id number] [place] [address] 07 Apr, 2011 [facility] [address] [id number] [place] [address] 02 Apr, 2011 [facility] [address] [id number] [place] [address] Mar, [facility] [address] [id number] [place] [address] Mar, [facility] [address] [id number] [place] [address] Mar, [facility] [address] [facility] [id number] [place] [address] Mar, [facility] [address] [id number] [place] [address] Mar, [facility] [address] [facility] [id number] [place] [address] Mar, [facility] [address] [facility] [id number] [place] [address] Mar, [facility] [address] [facility] [id number] [place] [address] Mar, [facility] [address] [facility] [id number] [place] [address] Feb, [facility] [address] [facility] [id number] [place] [address] May, [facility] [address] [facility] [id number] [place] [address] May, [facility] [address] [facility] [id number] [place] [address] May, [facility] [address] [facility] [id number] [place] [address] Apr, [facility] [address] [facility] [id number] [place] [address] Mar, IMMUNIZATIONS No Known Immunizations SOCIAL HISTORY Never Assessed REASON FOR VISIT pt c/o sores on vagina, she states that the sore has gotten worse since we seen her last- ANGELICA Kiran PLAN OF CARE Activity Details Follow Up prn. if not improving with PCP or reg follow up Reason: Pending Test BACTERIAL VAGINOSIS (IN HOUSE) VITAL SIGNS Height 69 in 2018-05-18 Weight 265.0 lbs 2018-05-18 Temperature 96.8 degrees Fahrenheit 2018-05-18 Heart Rate 121 bpm 2018-05-18 Respiratory Rate 18 2018-05-18 BMI 39.13 kg/m2 2018-05-18 Blood pressure systolic 128 mmHg 2018-05-18 Blood pressure diastolic 70 mmHg 2018-05-18 MEDICATIONS Medication Instructions Dosage Frequency Start Date End Date Duration Status Silvadene 1 % Externally Once a day 1 application to affected area 24h Mar, Active Ibuprofen 800 mg TAKE ONE TABLET BY MOUTH THREE TIMES DAILY WITH FOOD OR MILK 30 Active Omeprazole 20 mg TAKE ONE CAPSULE BY MOUTH ONCE DAILY 30 Not- Taking Acyclovir 400 mg Orally 2 times a day TAKE ONE TABLET 12h 30 Not- Taking Gabapentin 300 MG TAKE THREE CAPSULES BY MOUTH TWICE DAILY 30 Active Hydrochlorothiazide 25 MG Orally Once a day MUST COME IN FOR BP CHECK take 1/ 2 tablet Active Alprazolam 2 MG Orally daily, part of taper 1 tablet 30 days Active Metronidazole 500 mg Orally Twice a day 1 tablet 12h May, 10 day(s) Active Neurontin 300 MG Orally two times a day 3 capsules 12h 13 Aug, 2014 30 days Not-Taking Effexor XR 150 MG Orally Once a day 1 capsule 24h 30 Active Xanax 0.25 MG Orally daily 3 tablet 24h Mar, 30 days Active Hydrochlorothiazide 25 MG Orally Once a day MUST COME IN FOR BP CHECK take 1/ 2 tablet 30 Not-Taking Valacyclovir HCl 500 mg Orally Once a day 2 tablets 24h Apr, 90 days Active Lisinopril 40 mg TAKE ONE TABLET BY MOUTH ONCE DAILY 30 Active Omeprazole 20 mg TAKE ONE CAPSULE BY MOUTH ONCE DAILY 30 days Active RESULTS No Results PROCEDURES Procedure Date Ordered Result Body Site Bacterial Vaginosis In House May 18, 2018 INSTRUCTIONS MEDICATIONS ADMINISTERED No Known Medications MEDICAL [...]
--- OUTSIDE RECORDS SUMMARY | 2018-08-19 09:57 | XMS REPORT ---
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 Name Role Phone JIMENEZ VELASQUEZ Unavailable PROBLEMS Type Condition ICD9-CM Code [id number] Code Onset Dates Condition Status SNOMED Code Problem Posttraumatic stress disorder F43.10 Active 66601128 Problem Generalized anxiety disorder F41.1 Active 10379737 Problem Panic disorder F41.0 Active 761434232 Problem Nausea R11.0 Active 021808563 Problem Mild intermittent asthma without complication J45.20 Active 674237320 Problem Hot flashes R23.2 Active 499508734 Problem Vitamin D deficiency E55.9 Active 06262525 Problem Mixed hyperlipidemia E78.2 Active 626098179 Problem Low back pain with sciatica, sciatica laterality unspecified, unspecified back pain laterality, unspecified chronicity M54.40 Active 334642775 Problem Bipolar disorder, current episode mixed, moderate F31.62 Active 030304253 Problem Multiple fractures T07.XXXA Active 771810593 Problem Acute right-sided low back pain with right-sided sciatica M54.41 Active 31620746 Problem Essential hypertension I10 Active 65582706 Problem Anxiety F41.9 Active 97291200 Problem Gastroesophageal reflux disease, esophagitis presence not specified K21.9 Active 590547391 Problem Bipolar disorder F31.9 Active 00260561 Problem Depression F32.9 Active 75876651 Problem History of IBS Z87.19 Active 41574075619302 Problem Primary insomnia F51.01 Active 305014752 Problem Genital herpes simplex, unspecified site A60.00 Active 33280430 Problem Hidradenitis suppurativa L73.2 Active 79164481 Problem Tobacco use Z72.0 Active 820466067 ALLERGIES Substance Reaction Event Type Date Status Paxil suicidal Drug Allergy Apr, Active Morphine Sulfate hives Drug Allergy Apr, Active Hydrocodone-Acetaminophen rash Drug Allergy Apr, Active Bactrim DS break out in blisters Drug Allergy Apr, Active Amoxicillin hives Drug Allergy Apr, Active Latex rash Non Drug Allergy Apr, Active Abilify 2 Mg Tablet anger Non Drug Allergy Apr, Active ENCOUNTERS Encounter Location Date Diagnosis [facility] [address], [place] [address] May, [facility] [id number] [place] [address] 84885- 8678 Apr, [facility] [id number] [place] [address] 54924- 1504 Apr, [facility] [id number] [place] [address] 38334- 1521 Apr, Genital herpes simplex, unspecified site A60.00 [facility] [id number] [place] [address] 65110- 3840 Apr, [facility] [id number] [place] [address] 71408- 6335 Apr, [facility] [id number] [place] [address] 63625- 7316 Mar, [facility] [id number] [place] [address] 55708- 0096 Mar, Genital herpes simplex, unspecified site A60.00 [facility] [id number] [place] [address] 00259- 9923 Mar, [facility] [address], [place] [address] 4027 Mar, [facility] [id number] [place] [address] 49345- 3881 Mar, Panic disorder F41.0 [facility] [address], [place] [address] 4984 Mar, [facility] [id number] [place] [address] 18200- 3034 Mar, Genital herpes simplex, unspecified site A60.00 and Hidradenitis L73.2 [facility] [id number] [place] [address] 95159- 5477 Feb, Panic disorder F41.0 ; Bipolar disorder, current episode mixed, moderate F31.62 and Generalized anxiety disorder F41.1 [facility] [id number] [place] [address] 08667- 8786 Feb, Panic disorder F41.0 [facility] [id number] [place] [address] 49642- 4072 Jan, Genital herpes simplex, unspecified site A60.00 [facility] [id number] [place] [address] 57889- 3129 Jan, Panic disorder F41.0 [facility] [id number] [place] [address] 25006- 4108 Dec, Diaphoresis R61 and Excessive thirst R63.1 [facility] [id number] [place] [address] 33974- 5323 Dec, Panic disorder F41.0 ; Bipolar disorder, current episode mixed, moderate F31.62 and Generalized anxiety disorder F41.1 [facility] [id number] [place] [address] 33260- 5121 Dec, Panic disorder F41.0 [facility] [id number] [place] [address] 01766- 1825 Nov, Panic disorder F41.0 [facility] [id number] [place] [address] 51911- 4960 Nov, Panic disorder F41.0 ; Generalized anxiety disorder F41.1 and Bipolar disorder, current episode mixed, moderate F31.62 [facility] [id number] [place] [address] 95628- 5467 Nov, Panic disorder F41.0 [facility] [id number] [place] [address] 67147- 8039 Nov, Panic disorder F41.0 [facility] [id number] [place] [address] 72737- 7649 October, Panic disorder F41.0 [facility] [address] 65434- 4793 October, Panic disorder F41.0 ; Generalized anxiety disorder F41.1 and Bipolar disorder, current episode mixed, moderate F31.62 [place] [address] 72106- 2806 October, Panic disorder F41.0 [facility] [address] 94003- 6794 Sep, Hospital discharge follow-up Z09 ; Concussion without loss of consciousness, initial encounter S06.0X0A and Nausea R11.0 [place] [facility] [address] 20822- 8262 Sep, [facility] [address] 33534- 0267 Sep, Panic disorder F41.0 [facility] [address] 29702- 1934 Sep, [facility] [id number] [place] [address] 03700- 5732 Sep, Well woman exam with routine gynecological exam Z01.419 ; Multiple fractures T07.XXXA ; Hot flashes R23.2 ; Essential hypertension I10 ; Mixed hyperlipidemia E78.2 ; Genital herpes simplex, unspecified site A60.00 ; Alkaline phosphatase elevation R74.8 ; Dysuria R30.0 ; Vitamin D deficiency E55.9 ; Tobacco use Z72.0 ; High risk sexual behavior Z72.51 and Encounter for immunization Z23 [facility] [id number] [place] [address] 25076- 1426 Aug, Panic disorder F41.0 ; Generalized anxiety disorder F41.1 and Bipolar disorder, current episode mixed, moderate F31.62 [facility] [id number] [address] 8025 Aug, [facility] [id number] [place] [address] 631591- 0866 Jul, Panic disorder F41.0 ; Generalized anxiety disorder F41.1 and Bipolar disorder, current episode mixed, moderate F31.62 [facility] [id number] [place] [address] 17535- 6526 Jul, [facility] [id number] [place] [address] 47125- 2036 Jul, [facility] [id number] [place] [address] 68434- 8016 Jul, Effusion, right knee M25.461 ; Acute pain of right knee M25.561 and Acute pain of left knee M25.562 [facility] [address] [place] [address] 22723- 2290 Jun, Bipolar disorder, current episode mixed, moderate F31.62 ; Generalized anxiety disorder F41.1 and Panic disorder F41.0 [facility] [address] [address]- 0316 May, Bipolar disorder, current episode mixed, moderate F31.62 ; Generalized anxiety disorder F41.1 and Panic disorder F41.0 [facility] [address], [place] [address]- 2176 May, Bipolar disorder, current episode mixed, moderate F31.62 [facility] [address], [place] [address]- 9762 May, Bipolar disorder, current episode mixed, moderate F31.62 [facility] [address] [place] [address] 199331- 8310 Apr, Bipolar disorder, current episode mixed, moderate F31.62 ; Generalized anxiety disorder F41.1 and Panic disorder F41.0 [place] [address] 28312- 9656 Mar, [facility] [address] 66617- 4561 Mar, Bipolar disorder, current episode mixed, moderate F31.62 ; Generalized anxiety disorder F41.1 and Panic disorder F41.0 [facility] [address] 65231- 1853 Feb, [facility] [address] 15863- 0542 Feb, Posttraumatic stress disorder F43.10 [facility] [address] 77517- 7803 Feb, Gastroesophageal reflux disease, esophagitis presence not specified K21.9 [facility] [address] 55086- 0650 Feb, [facility] [address] 07680- 2279 06 Feb, 2017 Knee pain, right anterior M25.561 [facility] [address] 68263- 9033 05 Feb, 2017 HSV (herpes simplex virus) infection B00.9 [facility] [id number] [place] [address] 91015- 7707 Feb, [facility] [address] 71387- 4457 Jan, [facility] [id number] [place] [address] 95730- 2771 Jan, Posttraumatic stress disorder F43.10 [facility] [address] 08653- 2415 Jan, Foot pain, left M79.672 [facility] [id number] [place] [address] 64080- 4590 Jan, [facility] [address] [place] [address]- 2833 Jan, Lumbar radiculopathy, acute M54.16 ; Muscle spasm of back M62.830 and Right hip pain M25.551 [facility] [id number] [place] [address] 05848- 5892 Jan, Lumbar radiculopathy, acute M54.16 [facility] [address] 64738- 8162 Jan, [facility] [address] 20471- 8881 Jan, [facility] [address] 33160- 9904 Dec, Lumbar radiculopathy, acute M54.16 ; Acute renal insufficiency N28.9 and Muscle spasm of back M62.830 [facility] [address] 95298- 5495 Dec, [facility] [id number] [place] [address] 05427- 3346 Dec, [facility] [id number] [place] [address] 38481- 9255 Dec, [facility] [id number] [place] [address] 39542 -0192 Dec, Low back pain with sciatica, sciatica laterality unspecified, unspecified back pain laterality, unspecified chronicity M54.40 and Acute right-sided low back pain with right-sided sciatica M54.41 [facility] [id number] [place] [address] 57272- 9417 Dec, Posttraumatic stress disorder F43.10 [facility] [id number] [place] [address] 96141- 5666 Dec, [facility] [id number] [place] [address] 63527- 9518 10 Rocky, 2017 Pain in right thigh M79.651 and Acute right-sided low back pain without sciatica M54.5 [facility] [address], [place] [address]- 1610 Dec, Posttraumatic stress disorder F43.10 and Major depressive disorder, recurrent episode with anxious distress F33.9 [facility] [address], [place] [address]261 Dec, [facility] [address] [facility] [id number] [place] [address] 84368- 0989 Nov, [facility] [id number] [place] [address] 05867- 9649 October, [facility] [id number] [place] [address] 95934- 6866 October, [facility] [id number] [place] [address] 47148- 9790 October, Knee pain, right anterior M25.561 [facility] [id number] [place] [address] 54336- 8897 October, Knee pain, right anterior M25.561 [facility] [id number] [place] [address] 84728- 8466 October, [facility] [id number] [place] [address] 28677- 9874 October, [facility] [address], [place] [address]- 1355 October, [facility] [id number], [place] [address]5774 Sep, [facility] [id number] [place] [address] 40066- 7886 Sep, [facility] [id number] [place] [address] 10109- 8501 Sep, Essential hypertension I10 [facility] [id number] [place] [address] 30504- 9066 Sep, Essential hypertension I10 [facility] [id number] [place] [address] 03482- 6898 Sep, [place] [address] 49733- 3738 Sep, Posttraumatic stress disorder F43.10 and Major depressive disorder, recurrent episode with anxious distress F33.9 [place] [address] 20094- 1155 Sep, Multiple fractures T14.8 ; Alkaline phosphatase elevation R74.8 and Vitamin D deficiency E55.9 [place] [address] 58234- 2485 Sep, [place] [address] 95065- 5120 Sep, Elevated serum creatinine R79.89 ; Fracture of foot, left, closed, initial encounter S92.902A and Alkaline phosphatase elevation R74.8 [facility] [id number] [place] [address] 99072- 4237 Sep, Elevated serum creatinine R79.89 and Essential hypertension I10 [place] [id number] [place] [address] 86928- 8283 Sep, [facility] [id number] [place] [address] 57990- 8931 Aug, Gastroesophageal reflux disease, esophagitis presence not specified K21.9 [place] [place] [id number] [place] [address] 38342- 1713 Aug, Essential hypertension I10 ; Fracture of foot, left, closed , initial encounter S92.902A and Alkaline phosphatase elevation R74.8 [place] [id number] [place] [address] 63289- 0191 17 Jul, 2016 Genital herpes simplex, unspecified site A60.00 [place] [address] 68040- 6588 Jul, Essential hypertension I10 [place] [id number] [place] [address] 75602- 5074 Jun, Cough R05 and Wheezing R06.2 [place] [place] [id number] [place] [address] 48697- 7419 Jun, Essential hypertension I10 [place] [id number] [place] [address] 05007- 2443 May, Essential hypertension I10 [place] [place] [id number] [place] [address] 64357- 7380 14 May, 2016 Posttraumatic stress disorder F43.10 and Major depressive disorder, recurrent episode with anxious distress F33.9 [place] [id number] [place] [address] 91323- 0208 Apr, [facility] [id number] [place] [address] 01899- 6231 Apr, [place] [place] [id number] [place] [address] 27274- 2969 Apr, [place] [place] [id number] [place] [address] 07957- 4432 Mar, [place] [place] [id number] [place] [address] 26668- 4877 Feb, [place] [place] [id number] [place] [address] 26086- 8256 Jan, [place] [id number] [place] [address] 03297- 4188 Jan, Essential hypertension I10 ; Mixed hyperlipidemia E78.2 ; Gastroesophageal reflux disease, esophagitis presence not specified K21.9 ; Mild intermittent asthma without complication J45.20 ; Hidradenitis suppurativa L73.2 ; Migraine without status migrainosus, not intractable, unspecified migraine type G43.909 ; Genital herpes simplex, unspecified site A60.00 and Closed traumatic minimally displaced fracture of metatarsal bone of left foot S92.302A [facility] [address], [place] [address]293 Jan, Localized edema R60.0 [facility] [id number] [place] [address] 77696- 9389 Dec, [facility] [id number] [place] [address] 79928- 0199 Dec, [facility] [id number] [place] [address] 93962- 8196 Dec, [facility] [id number] [place] [address] 52668 -0242 Dec, Cough R05 ; Tobacco dependence F17.200 and Costochondritis , acute M94.0 [facility] [id number] [place] [address] 25951- 9769 Dec, Major depression, recurrent F33.9 ; Bipolar disorder, unspecified F31.9 and Posttraumatic stress disorder F43.10 [facility] [id number] [place] [address] 23676- 0755 Nov, [facility] [id number] [place] [address] 24966- 5874 Nov, [facility] [id number] [place] [address] 97785- 0422 October, [facility] [id number] [place] [address] 99465 -7896 October, Acute upper respiratory infection, unspecified J06.9 [facility] [id number] [place] [address] 15061- 7279 October, [facility] [id number] [place] [address] 35060- 7481 Sep, Bipolar affective disorder, remission status unspecified F31.9 and Post-traumatic stress disorder F43.10 [facility] [id number] [place] [address] 55757- 8115 Sep, Bipolar disorder, unspecified F31.9 ; Posttraumatic stress disorder F43.10 and Major depression, recurrent F33.9 [facility] [id number] [place] [address] 22212- 2943 16 Aug, 2015 Edema R60.9 ; Fatigue R53.83 and Polydipsia R63.1 [facility] [id number] [place] [address] 52165- 5876 Aug, [facility] [id number] [place] [address] 51173- 9305 Aug, [facility] [id number] [place] [address] 31422- 5129 Jul, [facility] [id number] [place] [address] 33469- 4231 Jul, [facility] [id number] [place] [address] 79585- 8407 Jun, [facility] [id number] [place] [address] 33493- 7255 Jun, [facility] [id number] [place] [address] 87523- 6073 Jun, [facility] [address], [place] [address]- 8026 Jun, [facility] [id number] [place] [address] 92770- 8802 May, Mixed hyperlipidemia E78.2 [facility] [address], [place] [address]- 9221 23 May, 2015 Well woman exam Z01.419 ; History of herpes simplex infection Z86.19 ; Papanicolaou smear Z12.4 ; History of depression Z86.59 ; History of anxiety Z86.59 ; Lipoma of other specified sites D17.79 ; Hidradenitis suppurativa L73.2 ; Routine screening for STI (sexually transmitted infection) Z11.3 and Tobacco use Z72.0 [facility] [id number] [place] [address] 81884- 5821 May, Hematuria R31.9 ; Essential hypertension I10 ; Pure hypercholesterolemia E78.0 and Hidradenitis L73.2 [facility] [address] 04148- 9615 May, Upper respiratory symptom R09.89 and Allergic rhinitis J30.9 [facility] [address] 27956- 9846 May, [facility] [address] 06950- 5090 May, [facility] [address] 94001- 7407 May, Bipolar disorder, unspecified F31.9 ; Posttraumatic stress disorder F43.10 and Major depression, recurrent F33.9 [place] [address] 41698- 0310 May, [facility] [address] 24883- 2143 May, [facility] [address] 78021- 7043 Apr, [facility] [address] 04765- 2585 Apr, [facility] [address] 39983- 9446 Mar, [facility] [address] 07699- 0221 Mar, [facility] [address] 64152- 0488 Mar, [facility] [id number] [place] [address] 63090- 7038 18 Feb, 2015 Major depressive disorder, recurrent episode, moderate 296.32 and Post traumatic stress disorder (PTSD) 309.81 [facility] [address], [place] [address]- 4833 10 Feb, 2015 [facility] [id number] [place] [address] 43220- 3590 08 Feb, 2015 [facility] [id number] [place] [address] 86512- 8497 Jan, Cough 786.2 [facility] [id number] [place] [address] 77039- 9209 Jan, Depression, major, recurrent, moderate 296.32 and Post traumatic stress disorder (PTSD) 309.81 [facility] [id number] [place] [address] [phone]- [phone] Jan, [facility] [id number] [place] [address] [phone]- [phone] Dec, [facility] [id number] [place] [address] 42075- 1245 Dec, Generalized anxiety disorder 300.02 and Depression, major, recurrent, moderate 296.32 [facility] [id number] [place] [address] [id number]- [phone] Dec, [facility] [id number] [place] [address] 19865- 6932 Dec, High risk medication use V58.69 [facility] [id number] [place] [address] [phone]- [phone] Dec, High risk medication use V58.69 [facility] [id number] [address] Dec, [facility] [id number] [place] [address] 88135- 2591 Nov, Generalized anxiety disorder 300.02 and Major depressive disorder, recurrent episode, moderate 296.32 [facility] [id number] [place] [address] [id number] Nov, Dental examination V72.2 [facility] [address] [id number] [id number] 17 Nov, 2014 [facility] examination V72.2 [facility] [address] [id number] [address] 15 Nov, 2014 [facility] [id number] [id number] Nov, Dental examination V72.2 [facility] [id number] [place] [address] [id number] 09 Nov, 2014 Dental examination V72.2 [facility] [address] [facility] [id number] [place] [address] [id number]- [phone] October, Major depressive disorder, recurrent episode, moderate 296.32 and Generalized anxiety disorder 300.02 [facility] [address] [facility] [id number], [place] [address] October, [facility] [address] [facility] [id number], [place] [address] 8456 October, [facility] [address] [id number], [place] [address] 28[address] October, [facility] [address] [id number], [place] [address] 14 Sep, 2014 [facility] [address] [id number], [place] [address] Sep, [facility] [address] [facility] [id number], [place] [address] 9[address] Aug, [facility] [address] [facility] [id number], [place] [address] 2546 17 Aug, 2014 [facility] [address] [facility] [id number], [place] [address] 4466 Aug, [facility] [address] [facility] [id number], [place] [address] 2546 Aug, [facility] [address] [facility] [id number], [place] [address] Aug, [facility] [place] [facility] [address] [id number] [place] [address] 2400 Aug, [facility] [place] [facility] [address] [id number] [place] [address]- 9263 Aug, [facility] [place] [facility] [address] [facility] [id number] [place] [address]- 2893 Jul, 2014 [facility] [place] [facility] [address] [id number] [place] [address]- 6809 Jul, 2014 [facility] [place] [facility] [address] [id number] [place] [address]- 3373 Jul, 2014 [facility] [place] [facility] [address] [facility] [id number] [place] [address]- 7413 Jul, 2014 [facility] [place] [facility] [address] [facility] [id number] [place] [address]- 4697 Jul, 2014 [facility] [place] [facility] [address] [facility] [id number] [place] [address]- 8118 Jul, [facility] [place] [facility] [address] [facility] [id number] [place] [address]- 5203 Jul, 2014 [facility] [place] [facility] [address] [facility] [id number] [place] [address]- 6285 Jul, [facility] [place] [facility] [address] [facility] [id number] [place] [address]- 4896 Jul, [facility] [place] [facility] [address] [facility] [id number], [place] [address]- 4574 Jun, [facility] [place] [facility] [address] [facility] [id number] [place] [address]- 0030 Jun, [facility] [place] [facility] [address] [facility] [id number], [place] [address]- 7128 Jun, [facility] [place] [facility] [address] [facility] [id number], [place] [address]- 4832 Jun, [facility] [place] [facility] [address] [id number] [place] [address]- 4350 Jun, [facility] [place] [facility] [address] [id number] [place] [address]- 0176 Jun, [facility] [place] [facility] [address] [id number] [place] [address]- 0587 Jun, [facility] [place] [facility] [address] [id number] [place] [address]- 4171 Jun, [facility] [place] [facility] [address] [id number] [place] [address]- 2354 Jun, [facility] [place] [facility] [address] [id number] [place] [address]- 2688 Jun, [facility] [place] [facility] [address] [id number] [place] [address]- 2648 Jun, [facility] [place] [facility] [address] [id number] [place] [address]- 5377 Jun, [facility] [place] [facility] [address] [id number] [place] [address]- 9270 Jun, [facility] [place] [facility] [address] [id number] [place] [address]- 3779 Jun, [facility] [place] [facility] [address] [id number] [place] [address]- 2383 Jun, [facility] [place] [facility] [address] [id number] [place] [address]- 3025 Jun, [facility] [place] [facility] [address] [id number] [place] [address]- 3126 Jun, [facility] [place] [facility] [address] [id number] [place] [address]- 0693 Jun, [facility] [place] [facility] [address] [id number] [place] [address]- 7682 Jun, [facility] [place] [facility] [address] [id number] [place] [address]- 3065 Jun, [facility] [place] [facility] [address] [id number] [place] [address]- 7094 Jun, [facility] [place] [facility] [address] [id number] [place] [address]- 2145 Jun, [facility] [place] [facility] [address] [id number] [place] [address]- 3565 Jun, [facility] [place] [facility] [address] [id number] [place] [address]- 1750 Jun, [facility] [place] [facility] [address] [id number] [place] [address]- 3765 Jun, [facility] [place] [facility] [address] [id number] [place] [address]- 9994 May, [facility] [place] [facility] [address] [id number] [place] [address]- 6902 May, [facility] [place] [facility] [address] [id number] [place] [address]- 5149 May, [facility] [place] [facility] [address] [id number] [place] [address]- 9857 May, [facility] [place] [facility] [address] [id number] [place] [address]- 3306 May, [facility] [place] [facility] [address] [id number] [place] [address]- 8319 May, [facility] [place] [facility] [address] [id number] [place] [address]- 4591 May, [facility] [place] [facility] [address] [id number] [place] [address]- 3754 May, [facility] [place] [facility] [address] [id number] [place] [address]- 0717 May, [facility] [place] [facility] [address] [id number] [place] [address]- 2506 May, [facility] [place] [facility] [address] [id number] [place] [address]- 5092 May, [facility] [address] [id number] [place] [address]- 0565 May, [facility] [place] [facility] [address] [id number] [place] [address]- 0921 May, [facility] [place] [facility] [address] [id number] [place] [address]- 1162 May, [facility] [place] [facility] [address] [id number] [place] [address]- 8208 May, [facility] [place] [facility] [address] [id number] [place] [address]- 7645 May, [facility] [place] [facility] [address] [id number] [place] [address]- 0476 May, [facility] [place] [facility] [address] [id number] [place] [address]- 3331 May, [facility] [place] [facility] [address] [id number] [place] [address]- 8943 Apr, [facility] [place] [facility] [address] [id number] [place] [address]- 9560 Apr, [facility] [place] [facility] [address] [id number] [place] [address]- 7907 Apr, [facility] [place] [facility] [address] [id number] [place] [address]- 7526 Apr, [facility] [place] [facility] [address] [id number] [place] [address]- 7004 Apr, [facility] [place] [facility] [address] [id number] [place] [address]- 0236 Apr, [facility] [place] [facility] [address] [id number] [place] [address]- 9221 Apr, [facility] [place] [facility] [address] [id number] [place] [address]- 6288 Apr, [facility] [place] [facility] [address] [id number] [place] [address]- 4314 Mar, [facility] [place] [facility] [address] [id number] [place] [address]- 9530 Mar, [facility] [place] [facility] [address] [id number] [place] [address]- 6411 Feb, [facility] [place] [facility] [address] [id number] [place] [address]- 6606 Feb, [facility] [place] [facility] [address] [id number] [place] [address]- 5406 Feb, [facility] [place] [facility] [address] [id number] [place] [address]- 5731 Feb, [facility] [place] [facility] [address] [id number] [place] [address]- 4066 Feb, [facility] [place] [facility] [address] [id number] [place] [address]- 1587 Feb, [facility] [place] [facility] [address] [id number] [place] [address]- 2128 Feb, [facility] [place] [facility] [address] [id number] [place] [address]- 9926 Feb, [facility] [place] [facility] [address] [id number] [place] [address]- 6920 Feb, [facility] [place] [facility] [address] [id number] [place] [address]- 1773 Feb, [facility] [place] [facility] [address] [id number] [place] [address]- 3698 Jan, [facility] [place] [facility] [address] [id number] [place] [address]- 4893 Jan, [facility] [place] [facility] [address] [id number] [place] [address]- 7334 Jan, [facility] [place] [facility] [address] [id number] [place] [address]- 2943 Jan, [facility] [place] [facility] [address] [id number] [place] [address]- 4042 Jan, [facility] [place] [facility] [address] [id number] [place] [address]- 6347 Jan, [facility] [place] [facility] [address] [id number] [place] [address]- 6570 Jan, [facility] [place] [facility] [address] [id number] [place] [address]- 9630 Jan, [facility] [place] [facility] [address] [id number] [place] [address]- 2820 Jan, [facility] [place] [facility] [address] [id number] [place] [address]- 1033 Jan, [facility] [place] [facility] [address] [id number] [place] [address]- 4144 Jan, [facility] [place] [facility] [address] [id number] [place] [address]- 2883 Jan, [facility] [place] [facility] [address] [id number] [place] [address]- 6736 Jan, [facility] [place] [facility] [address] [id number] [place] [address]- 0127 Dec, [facility] [place] [facility] [address] [id number] [place] [address]- 6162 Dec, [facility] [place] [facility] [address] [id number] [place] [address]- 9049 Dec, [facility] [place] [facility] [address] [id number] [place] [address]- 9879 Dec, [facility] [place] [facility] [address] [id number] [place] [address]- 5755 Dec, [facility] [place] [facility] [address] [id number] [place] [address]- 6524 Dec, [facility] [place] [facility] [address] [id number] [place] [address]- 9783 Dec, [facility] [place] [facility] [address] [id number] [place] [address]- 6814 Dec, [facility] [place] [facility] [address] [id number] [place] [address]- 6875 Dec, [facility] [place] [facility] [address] [id number] [place] [address]- 4369 Dec, [facility] [place] [facility] [address] [id number] [place] [address]- 8608 Dec, [facility] [place] [facility] [address] [id number] [place] [address]- 1375 Dec, [facility] [place] [facility] [address] [id number] [place] [address]- 6231 Dec, [facility] [place] [facility] [address] [id number] [place] [address]- 7111 Dec, [facility] [place] [facility] [address] [id number] [place] [address]- 6332 Nov, [facility] [place] [facility] [address] [id number] [place] [address]- 4682 Nov, [facility] [place] [facility] [address] [id number] [place] [address]- 7531 Nov, [facility] [place] [facility] [address] [id number] [place] [address]- 3352 Nov, [facility] [place] [facility] [address] [id number] [place] [address]- 6024 Nov, [facility] [place] [facility] [address] [id number] [place] [address]- 2119 Nov, [facility] [place] [facility] [address] [id number] [place] [address]- 7174 Nov, [facility] [place] [facility] [address] [id number] [place] [address]- 0580 Nov, [facility] [place] [facility] [address] [id number] [place] [address]- 3799 October, [facility] [place] [facility] [address] [id number] [place] [address]- 9070 October, [facility] [place] [facility] [address] [id number] [place] [address]- 5658 October, [facility] [place] [facility] [address] [id number] [place] [address]- 4804 October, [facility] [place] [facility] [address] [id number] [place] [address]- 8013 October, [facility] [place] [facility] [address] [id number] [place] [address]- 4504 October, [facility] [place] [facility] [address] [id number] [place] [address]- 1822 October, [facility] [place] [facility] [address] [id number] [place] [address]- 7064 October, [facility] [place] [facility] [address] [id number] [place] [address]- 1963 October, [facility] [place] [facility] [address] [id number] [place] [address]- 8032 October, [facility] [place] [facility] [address] [id number] [place] [address]- 5276 October, [facility] [place] [facility] [address] [id number] [place] [address]- 5108 October, [facility] [place] [facility] [address] [id number] [place] [address]- 2445 October, [facility] [place] [facility] [address] [id number] [place] [address]- 4147 October, [facility] [place] [facility] [address] [id number] [place] [address]- 8730 October, [facility] [place] [facility] [address] [id number] [place] [address]- 3697 October, [facility] [place] [facility] [address] [id number] [place] [address]- 5002 Sep, [facility] [place] [facility] [address] [id number] [place] [address]- 3907 Sep, [facility] [place] [facility] [address] [id number] [place] [address]- 6070 Sep, [facility] [place] [facility] [address] [id number] [place] [address]- 7465 Sep, [facility] [place] [facility] [address] [id number] [place] [address]- 3891 Sep, [facility] [place] [facility] [address] [id number] [place] [address]- 2839 Sep, [facility] [place] [facility] [address] [id number] [place] [address]- 2325 Sep, [facility] [place] [facility] [address] [id number] [place] [address]- 7203 Sep, [facility] [place] [facility] [address] [id number] [place] [address]- 6445 Sep, [facility] [place] [facility] [address] [id number] [place] [address]- 5735 Sep, [facility] [place] [facility] [address] [id number] [place] [address]- 8854 Sep, [facility] [place] [facility] [address] [id number] [place] [address]- 3855 Sep, [facility] [place] [facility] [address] [id number] [place] [address]- 3547 Sep, [facility] [place] [facility] [address] [id number] [place] [address]- 4498 Sep, [facility] [place] [facility] [address] [id number] [place] [address]- 0791 Sep, [facility] [place] [facility] [address] [id number] [place] [address]- 5838 Sep, [facility] [place] [facility] [address] [id number] [place] [address]- 8738 Sep, [facility] [place] [facility] [address] [id number] [place] [address]- 3498 Sep, [facility] [place] [facility] [address] [id number] [place] [address]- 7319 Sep, [facility] [place] [facility] [address] [id number] [place] [address]- 1974 Aug, [facility] [place] [facility] [address] [id number] [place] [address]- 4843 Aug, [facility] [place] [facility] [address] [id number] [place] [address]- 1468 Aug, [facility] [place] [facility] [address] [id number] [place] [address]- 6996 Aug, [facility] [place] [facility] [address] [id number] [place] [address]- 5909 Jul, [facility] [place] [facility] [address] [id number] [place] [address]- 4973 Jul, [facility] [place] [facility] [address] [id number] [place] [address]- 6019 Jul, [facility] [place] [facility] [address] [id number] [place] [address]- 9682 Jul, [facility] [place] [facility] [address] [id number] [place] [address]- 0826 Jul, [facility] [place] [facility] [address] [id number] [place] [address]- 3924 Jul, [facility] [place] [facility] [address] [id number] [place] 6022 Jul, [facility] [place] [facility] [address] [id number] [place] [address]- 2651 Jul, [facility] [address] [id number] [place] [address]- 8395 Jul, [facility] [place] [facility] [address] [id number] [place] 9146 Jul, [facility] [address] [id number] [place] [address]- 1928 Jul, [facility] [place] [facility] [address] [id number] [place] [address]- 8012 Jul, [facility] [place] [facility] [address] [id number] [place] [address]- 3796 Jun, [facility] [place] [facility] [address] [id number] [place] [address]- 7373 Jun, [facility] [address] [id number] [place] [address]- 3296 Jun, [facility] [address] [id number] [place] [address]- 6844 Jun, [facility] [place] [facility] [address] [id number] [place] [address]- 4909 Jun, [facility] [address] [id number] [place] [address]- 8925 Jun, [facility] [address] [id number] [place] [address]- 0771 May, [facility] [place] [facility] [address] [id number] [place] [address]- 9732 May, [facility] [place] [facility] [address] [id number] [place] [address]- 7346 Apr, [facility] [place] [facility] [address] [id number] [place] [address]- 9410 Apr, [facility] [place] [facility] [address] [id number] [place] [address]- 3634 Apr, [facility] [place] [facility] [address] [id number] [place] [address]- 4596 19 Apr, 2013 [facility] [place] [facility] [address] [id number] [place] [address]- 3820 18 Apr, 2013 [facility] [place] [facility] [address] [id number] [place] [address]- 7825 18 Apr, 2013 [facility] [place] [facility] [address] [id number] [place] [address]- 3069 17 Apr, 2013 [facility] [place] [facility] [address] [id number] [place] [address]- 5559 15 Apr, 2013 [facility] [place] [facility] [address] [id number] [place] [address]- 9287 15 Apr, 2013 [facility] [place] [facility] [address] [id number] [place] [address]- 8553 15 Apr, 2013 [facility] [place] [facility] [address] [id number], [place] [address]- 0046 15 Apr, 2013 [facility] [place] [facility] [address] [id number] [place] [address]- 3670 Apr, [facility] [place] [facility] [address] [id number], [place] [address]- 7988 Apr, [facility] [place] [facility] [address] [id number], [place] [address]- 1313 Mar, [facility] [place] [facility] [address] [id number], [place] [address]- 4626 31 Mar, 2013 [facility] [place] [facility] [address] [id number], [place] [address]- 4125 Mar, [facility] [place] [facility] [address] [id number], [place] [address]- 3131 Mar, [facility] [place] [facility] [address] [id number], [place] [address] 17 Mar, 2013 [facility] [place] [facility] [address] [id number], [place] [address] 17 Mar, 2013 [facility] [place] [facility] [address] [id number] [place] [address] 14 Mar, 2013 [facility] [place] [facility] [address] [id number] [place] [address]- [address] 14 Mar, 2013 [facility] [place] [facility] [address] [id number] [place] [address] 11 Mar, 2013 [facility] [place] [facility] [address] [id number] [place] [address]268 11 Mar, 2013 [facility] [place] [facility] [address] [id number] [place] [address]- [address]367 02 Mar, 2013 [facility] [place] [facility] [address] [id number] [place] [address]- 48[address] 30 Feb, 2013 [facility] [place] [facility] [address] [id number] [place] [address] 28 Feb, 2013 [facility] [place] [facility] [address] [id number] [place] [address]- [address] 27 Feb, 2013 [facility] [place] [facility] [address] [id number] [place] [address]- 62[address] 27 Feb, 2013 [facility] [place] [facility] [address] [id number] [place] [address]- 4768 20 Feb, 2013 [facility] [place] [facility] [address] [id number] [place] [address]- 9256 10 Feb, 2013 [facility] [place] [facility] [address] [id number] [place] [address] Jan, [facility] [place] [facility] [address] [id number] [place] [address]- [address] Jan, [facility] [place] [facility] [address] [id number] [place] [address] Dec, [facility] [place] [facility] [address] [id number] [place] [address] Dec, [facility] [place] [facility] [address] [id number] [place] [address] 15 Dec, [address] [facility] [address] [id number] [place] [address] Dec, [facility] [address] [id number] [place] [address] [address] Nov, [facility] [address] [id number] [place] [address] Nov, [facility] [address] [id number] [place] [address] Nov, [facility] [address] [id number] [place] [address] October, [facility] [address] [id number] [place] [address] October, [facility] [address] [id number] [place] [address] October, [facility] [address] [id number] [place] [address] October, [facility] [address] [id number] [place] [address]96 October, [facility] [address] [id number] [place] [address] Sep, [facility] [address] [id number] [place] [address] Sep, [facility] [address] [id number] [place] [address] Aug, [facility] [place] [facility] [address] [id number] [place] [address]266 15 Aug, 2012 [facility] [address] [id number] [place] [address] Aug, [facility] [address] [id number] [place] [address]- [address] Aug, [facility] [place] [facility] [address] [id number] [place] [address]- 5[address] Aug, [facility] [place] [facility] [address] [id number] [place] [address]- 113[address] Jul, [facility] [place] [facility] [address] [id number] [place] [address]- 73[address] Jul, [facility] [place] [facility] [address] [id number] [place] [address]- [address]489 Jul, [facility] [place] [facility] [address] [id number] [place] [address]- [address] Jul, [facility] [place] [facility] [address] [id number] [place] [address]- [address] Jun, [facility] [place] [facility] [address] [id number] [place] [address]- 1540 Jun, [facility] [place] [facility] [address] [id number] [place] [address]- 1771 Jun, [facility] [place] [facility] [address] [id number] [place] [address]- 60[address] Jun, [facility] [place] [facility] [address] [id number] [place] [address]- 3317 Jun, [facility] [place] [facility] [address] [id number] [place] [address]- [address] Jun, [facility] [place] [facility] [address] [id number] [place] [address]- [address] Jun, [facility] [place] [facility] [address] [id number] [place] [address]- 7073 Jun, [facility] [place] [facility] [address] [id number] [place] [address]- [address] Jun, [facility] [place] [facility] [address] [id number] [place] [address]- 3867 Jun, [facility] [place] [facility] [address] [id number] [place] [address]- 9319 Jun, [facility] [place] [facility] [address] [id number] [place] [address]- 8318 May, [facility] [place] [facility] [address] [id number] [place] [address]- 9825 May, [facility] [place] [facility] [address] [id number] [place] [address]- [address]96 Apr, [facility] [place] [facility] [address] [id number] [place] [address]- 9549 Apr, [facility] [place] [facility] [address] [id number] [place] [address] Mar, [facility] [place] [facility] [address] [id number] [place] [address]- 5528 Mar, [facility] [place] [facility] [address] [id number] [place] [address]- 6269 Mar, [facility] [place] [facility] [address] [id number] [place] [address]- [address] Mar, [facility] [place] [facility] [address] [id number] [place] [address]- 4499 Mar, [facility] [place] [facility] [address] [id number] [place] [address]- 5345 Mar, [facility] [place] [facility] [address] [id number] [place] [address]- 0815 Mar, [facility] [place] [facility] [address] [id number] [place] [address]- 9099 Mar, [facility] [place] [facility] [address] [id number] [place] [address]- 9482 Mar, [facility] [place] [facility] [address] [id number] [place] [address]- 6926 Feb, [facility] [place] [facility] [address] [id number] [place] [address]- 1238 Jan, [facility] [place] [facility] [address] [id number] [place] [address]- 7076 Jan, [facility] [place] [facility] [address] [id number] [place] [address]- 1140 Dec, [facility] [place] [facility] [address] [id number] [place] [address]- 1315 Dec, [facility] [place] [facility] [address] [id number] [place] [place] [address] Dec, [facility] [place] [facility] [address] [id number] [place] [address] Nov, [facility] [place] [facility] [address] [id number] [place] [address] Nov, [facility] [place] [facility] [address] [id number] [place] [address] Nov, [facility] [place] [facility] [address] [id number] [place] [address] Nov, [facility] [place] [facility] [address] [id number] [place] [address] October, [facility] [place] [facility] [address] [id number] [place] [address] October, [facility] [place] [facility] [address] [id number] [place] [address] Sep, [facility] [place] [facility] [address] [id number], [place] [address] Sep, [facility] [place] [facility] [address] [id number] [place] [address] Aug, [facility] [place] [facility] [address] [id number] [place] [address] Jul, [facility] [place] [facility] [address] [id number] [place] [address] Jul, [facility] [place] [facility] [address] [id number], [place] [address] Jul, [facility] [address] [id number] [place] [address] Jul, [facility] [place] [facility] [address] [facility] [id number] [place] [address] Jun, [facility] [address] [facility] [id number] [place] [address] 15 May, 2011 [facility] [place] [facility] [address] [id number] [place] [address] 15 May, 2011 [facility] [place] [facility] [address] [id number] [place] [address] 15 May, 2011 [facility] [place] [facility] [address] [facility] [id number] [place] [address] May, [facility] [place] [facility] [address] [facility] [id number] [place] [address] 08 May, 2011 [facility] [place] [facility] [address] [facility] [id number] [place] [address] 14 Apr, 2011 [facility] [place] [facility] [address] [facility] [id number] [place] [address] 14 Apr, 2011 [facility] [place] [facility] [address] [facility] [id number] [place] [address] 14 Apr, 2011 [facility] [place] [facility] [address] [facility] [id number] [place] [address] 07 Apr, 2011 [facility] [place] [facility] [address] [facility] [id number], [place] [address] 02 Apr, 2011 [facility] [place] [facility] [address] [facility] [id number] [place] [address] Mar, [facility] [place] [facility] [address] [facility] [id number] [place] [address] Mar, [facility] [place] [facility] [address] [facility] [id number], [place] [address] 14 Mar, 2011 [facility] [place] [facility] [id number] [address] 14 Mar, 2011 [facility] [address] [facility] [id number], [place] [address] 13 Mar, 2011 [facility] [address] [facility] [id number], [place] [address] Mar, [facility] [address] [facility] [id number], [place] [address] Mar, [facility] [address] [facility] [id number], [place] [address] Mar, [facility] [id number], [place] [address] Feb, [facility] [address] [id number], [place] [address] May, [facility] [address] [id number], [place] [address] May, [facility] [id number], [place] [address] May, [facility] [id number], [place] [address] Apr, [facility] [address] [id number], [place] [address] Mar, IMMUNIZATIONS No Known Immunizations SOCIAL HISTORY Never Assessed REASON FOR VISIT pt states she thinks she is having an outbreak of her genital herpes. Seen [facility] for this the end of march. ANGELICA Kiran PLAN OF CARE Activity Details Follow Up if not improving with PCP or reg follow up Reason: VITAL SIGNS Height 69 in 2018-05-02 Weight 269.0 lbs 2018-05-02 Temperature 98.2 degrees Fahrenheit 2018-05-02 Heart Rate 120 bpm 2018-05-02 Respiratory Rate 20 2018-05-02 BMI 39.72 kg/m2 2018-05-02 Blood pressure systolic 114 mmHg 2018-05-02 Blood pressure diastolic 74 mmHg 2018-05-02 MEDICATIONS Medication Instructions Dosage Frequency Start Date End Date Duration Status Alprazolam 2 MG Orally daily, part of taper 1 tablet 30 days Active Ibuprofen 800 MG TAKE ONE TABLET BY MOUTH THREE TIMES DAILY WITH FOOD OR MILK 30 Active Neurontin 300 MG Orally two times a day 3 capsules 12h Aug, 30 days Active Xanax 0.25 MG Orally daily 3 tablet 24h Mar, 30 days Active Silvadene 1 % Externally Once a day 1 application to affected area 24h Mar, Active Gabapentin 300 MG TAKE THREE CAPSULES BY MOUTH TWICE DAILY 30 Active Valacyclovir HCl 500 mg Orally Once a day 2 tablets 24h Apr, 90 days Active Hydrochlorothiazide 25 MG Orally Once a day MUST COME IN FOR BP CHECK take 1/ 2 tablet Active Effexor XR 150 MG Orally Once a day 1 capsule 24h 30 Active Lisinopril 40 mg TAKE ONE TABLET [...]
--- OUTSIDE RECORDS SUMMARY | 2018-08-19 09:58 | XMS REPORT ---
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 Name Role Phone SOFIAMARIA EUGENIA ELIZABETHHANY Unavailable PROBLEMS Type Condition ICD9-CM Code GRV39-AG Code Onset Dates Condition Status SNOMED Code Problem Posttraumatic stress disorder F43.10 Active 27525031 Problem Generalized anxiety disorder F41.1 Active 03621993 Problem Panic disorder F41.0 Active 033910075 Problem Nausea R11.0 Active 268796486 Problem Mild intermittent asthma without complication J45.20 Active 431813537 Problem Hot flashes R23.2 Active 166271219 Problem Vitamin D deficiency E55.9 Active 72343348 Problem Mixed hyperlipidemia E78.2 Active 107654562 Problem Low back pain with sciatica, sciatica laterality unspecified, unspecified back pain laterality, unspecified chronicity M54.40 Active 963306651 Problem Bipolar disorder, current episode mixed, moderate F31.62 Active 788418709 Problem Multiple fractures T07.XXXA Active 906997264 Problem Acute right-sided low back pain with right-sided sciatica M54.41 Active 44353207 Problem Essential hypertension I10 Active 12028256 Problem Anxiety F41.9 Active 52856090 Problem Gastroesophageal reflux disease, esophagitis presence not specified K21.9 Active 181602724 Problem Bipolar disorder F31.9 Active 96520540 Problem Depression F32.9 Active 70878193 Problem History of IBS Z87.19 Active 24329477975439 Problem Primary insomnia F51.01 Active 242732363 Problem Genital herpes simplex, unspecified site A60.00 Active 33617669 Problem Hidradenitis suppurativa L73.2 Active 05692716 Problem Tobacco use Z72.0 Active 904707674 ALLERGIES No Information ENCOUNTERS Encounter Location Date Diagnosis [facility] [address] [facility] [id number] [address] May, [facility] [address] [address] 8[address] Apr, [facility] [id number] [place] [address] 44400- 0702 Apr, [facility] [address], [place] [address] 8155 Apr, Genital herpes simplex, unspecified site A60.00 [facility] [id number] [place] [address] 10286- 2506 Apr, [facility] [id number] [place] [address] 07755- 0327 Apr, [facility] [address] [address] 9800 Mar, [facility] [id number] [place] [address] 42318- 9500 Mar, Genital herpes simplex, unspecified site A60.00 [facility] [address] [address] 7853 Mar, [facility] [id number] [place] [address] 86136- 4101 Mar, [facility] [address] [address] 3511 Mar, Panic disorder F41.0 [facility] [address] [address] 7872 Mar, [facility] [address] [address] 2855 Mar, Genital herpes simplex, unspecified site A60.00 and Hidradenitis L73.2 [facility] [address] [address] 9004 Feb, Panic disorder F41.0 ; Bipolar disorder, current episode mixed, moderate F31.62 and Generalized anxiety disorder F41.1 [facility] [id number] [place] [address] 46487- 0579 Feb, Panic disorder F41.0 [facility] [id number] [place] [address] 56934- 2860 Jan, Genital herpes simplex, unspecified site A60.00 [facility] [id number] [place] [address] 95094- 5713 Jan, Panic disorder F41.0 [facility] [id number] [place] [address] 45608- 2905 Dec, Diaphoresis R61 and Excessive thirst R63.1 [place] [id number] [place] [address] 29756- 0998 Dec, Panic disorder F41.0 ; Bipolar disorder, current episode mixed, moderate F31.62 and Generalized anxiety disorder F41.1 [facility] [facility] [id number] [place] [address] 92542- 6895 Dec, Panic disorder F41.0 [facility] [id number] [place] [address] 24033- 8085 Nov, Panic disorder F41.0 [facility] [facility] [id number] [place] [address] 38848- 8234 Nov, Panic disorder F41.0 ; Generalized anxiety disorder F41.1 and Bipolar disorder, current episode mixed, moderate F31.62 [facility] [id number] [place] [address] 62719- 3833 Nov, Panic disorder F41.0 [facility] [id number] [place] [address] 03997- 8932 Nov, Panic disorder F41.0 [facility] [id number] [place] [address] 70169- 6036 October, Panic disorder F41.0 [facility] [id number] [place] [address] 10439- 0375 October, Panic disorder F41.0 ; Generalized anxiety disorder F41.1 and Bipolar disorder, current episode mixed, moderate F31.62 [facility] [address] [place] [address] 36613- 4863 October, Panic disorder F41.0 [facility] [facility] [id number] [place] [address] 31777- 0690 Sep, Hospital discharge follow-up Z09 ; Concussion without loss of consciousness, initial encounter S06.0X0A and Nausea R11.0 [facility] [facility] [id number] [place] [address] 12937- 3704 Sep, [facility] [facility] [address] 26524- 2428 Sep, Panic disorder F41.0 [facility] [facility] [id number] [place] [address] 71756- 5467 Sep, [facility] [facility] [id number] [place] [address] 66450- 4181 Sep, Well woman exam with routine gynecological exam Z01.419 ; Multiple fractures T07.XXXA ; Hot flashes R23.2 ; Essential hypertension I10 ; Mixed hyperlipidemia E78.2 ; Genital herpes simplex, unspecified site A60.00 ; Alkaline phosphatase elevation R74.8 ; Dysuria R30.0 ; Vitamin D deficiency E55.9 ; Tobacco use Z72.0 ; High risk sexual behavior Z72.51 and Encounter for immunization Z23 [facility] [facility] [id number] [place] [address] 88798- 4093 Aug, Panic disorder F41.0 ; Generalized anxiety disorder F41.1 and Bipolar disorder, current episode mixed, moderate F31.62 [facility] [id number] [place] [address] 55966- 9035 Aug, [place] [id number] [place] [address] 52390- 8181 Jul, Panic disorder F41.0 ; Generalized anxiety disorder F41.1 and Bipolar disorder, current episode mixed, moderate F31.62 [facility] [address] [address] 4154 Jul, [facility] [id number] [place] [address] 36237- 4175 Jul, [facility] [address] [place] [address] 34646- 5529 Jul, Effusion, right knee M25.461 ; Acute pain of right knee M25.561 and Acute pain of left knee M25.562 [facility] [id number] [place] [address] 50606- 8472 Jun, Bipolar disorder, current episode mixed, moderate F31.62 ; Generalized anxiety disorder F41.1 and Panic disorder F41.0 [facility] [address] [place] [address] 39095- 6438 May, Bipolar disorder, current episode mixed, moderate F31.62 ; Generalized anxiety disorder F41.1 and Panic disorder F41.0 [facility] [id number] [place] [address] 40716- 1562 May, Bipolar disorder, current episode mixed, moderate F31.62 [facility] [address] [place] [address] 23066- 6099 May, Bipolar disorder, current episode mixed, moderate F31.62 [facility] [address] [place] [address] 48030- 0762 Apr, Bipolar disorder, current episode mixed, moderate F31.62 ; Generalized anxiety disorder F41.1 and Panic disorder F41.0 [facility] [address] [place] [address] 76670- 6706 Mar, [facility] [id number] [place] [address] 51403- 3629 Mar, Bipolar disorder, current episode mixed, moderate F31.62 ; Generalized anxiety disorder F41.1 and Panic disorder F41.0 [facility] [id number] [place] [address] 09549- 4079 27 Feb, 2017 [facility] [address] 64704- 7280 22 Feb, 2017 Posttraumatic stress disorder F43.10 [facility] [address] 61381- 9137 20 Feb, 2017 Gastroesophageal reflux disease, esophagitis presence not specified K21.9 [facility] [address] 64297- 7763 13 Feb, 2017 [facility] [address] 21735- 9594 06 Feb, 2017 Knee pain, right anterior M25.561 [place] [address] 65065- 5495 05 Feb, 2017 HSV (herpes simplex virus) infection B00.9 [facility] [address] 17927- 0059 05 Feb, 2017 [facility] [address] 19716- 6851 Jan, [place] [address] 22406- 3903 Jan, Posttraumatic stress disorder F43.10 [facility] [address] 24866- 4140 Jan, Foot pain, left M79.672 [facility] [address] 72958- 5968 Jan, [facility] [address] 66684- 2856 Jan, Lumbar radiculopathy, acute M54.16 ; Muscle spasm of back M62.830 and Right hip pain M25.551 [facility] [id number] [place] [address] 19440- 0833 Jan, Lumbar radiculopathy, acute M54.16 [facility] [id number] [place] [address] 71650- 2156 Jan, [facility] [id number] [place] [address] 21750- 8672 Jan, [facility] [id number] [place] [address] 00720- 5203 Dec, Lumbar radiculopathy, acute M54.16 ; Acute renal insufficiency N28.9 and Muscle spasm of back M62.830 [facility] [id number] [place] [address] 62517- 9000 Dec, [facility] [id number] [place] [address] 61734- 6747 Dec, [place] [id number] [place] [address] 76136- 8984 Dec, [facility] [id number] [place] [address] 25732 -2108 Dec, Low back pain with sciatica, sciatica laterality unspecified, unspecified back pain laterality, unspecified chronicity M54.40 and Acute right-sided low back pain with right-sided sciatica M54.41 [facility] [id number] [place] [address] 76231- 6854 Dec, Posttraumatic stress disorder F43.10 [place] [id number] [place] [address] 67773- 7173 Dec, [place] [id number] [place] [address] 15509- 6325 Dec, Pain in right thigh M79.651 and Acute right-sided low back pain without sciatica M54.5 [facility] [id number] [place] [address] 70090- 4261 Dec, Posttraumatic stress disorder F43.10 and Major depressive disorder, recurrent episode with anxious distress F33.9 [facility] [id number] [place] [address] 37052 -8453 Dec, [facility] [address], [place] [address]- 9677 Nov, [facility] [address] [address]- 4768 October, [facility] [address], [place] [address]- 2812 October, [facility] [id number] 8370 October, Knee pain, right anterior M25.561 [facility] [id number] 7250 October, Knee pain, right anterior M25.561 [facility] [address] [address]- 7164 October, [facility] [address], [place] [address]- 4575 October, [facility] [address], [place] [address]- 6148 October, [facility] [address], [place] [address] -3069 Sep, [facility] [address] [address]- 9211 Sep, [facility] [address] [address]- 5772 Sep, Essential hypertension I10 [facility] [id number] [address]- 2262 Sep, Essential hypertension I10 [facility] [address] 8693 Sep, [facility] [id number] [address]- 4885 Sep, Posttraumatic stress disorder F43.10 and Major depressive disorder, recurrent episode with anxious distress F33.9 [place] [id number] [place] [address] 28631- 6093 Sep, Multiple fractures T14.8 ; Alkaline phosphatase elevation R74.8 and Vitamin D deficiency E55.9 [place] [address] 28644- 7834 Sep, [place] [address] 14589- 0013 Sep, Elevated serum creatinine R79.89 ; Fracture of foot, left, closed, initial encounter S92.902A and Alkaline phosphatase elevation R74.8 [place] [address] 89551- 7909 Sep, Elevated serum creatinine R79.89 and Essential hypertension I10 [address] 97555- 1483 Sep, [facility] [address] 46475- 8995 Aug, Gastroesophageal reflux disease, esophagitis presence not specified K21.9 [place] [address] 82651- 6212 Aug, Essential hypertension I10 ; Fracture of foot, left, closed , initial encounter S92.902A and Alkaline phosphatase elevation R74.8 [place] [id number] [place] [address] 62487- 0135 Jul, Genital herpes simplex, unspecified site A60.00 [place] [id number] [place] [address] 46645- 1239 Jul, Essential hypertension I10 [address] 02772- 9907 Jun, Cough R05 and Wheezing R06.[address] 17746- 3983 Jun, Essential hypertension I10 [facility] [id number] [place] [address] 17988- 5958 May, Essential hypertension I10 [facility] [id number] [place] [address] 05109- 4065 May, Posttraumatic stress disorder F43.10 and Major depressive disorder, recurrent episode with anxious distress F33.9 [facility] [id number] [place] [address] 29526- 8720 Apr, [facility] [id number] [place] [address] 22922- 0699 Apr, [facility] [id number] [place] [address] 99696- 6226 Apr, [facility] [id number] [place] [address] 94356- 5800 Mar, [facility] [id number] [place] [address] 17648- 9657 Feb, [facility] [id number] [place] [address] 52398- 2520 Jan, [facility] [id number] [place] [address] 00838- 2936 Jan, Essential hypertension I10 ; Mixed hyperlipidemia E78.2 ; Gastroesophageal reflux disease, esophagitis presence not specified K21.9 ; Mild intermittent asthma without complication J45.20 ; Hidradenitis suppurativa L73.2 ; Migraine without status migrainosus, not intractable, unspecified migraine type G43.909 ; Genital herpes simplex, unspecified site A60.00 and Closed traumatic minimally displaced fracture of metatarsal bone of left foot S92.302A [facility] [id number] [place] [address] 00735 -8613 Jan, Localized edema R60.0 [facility] [id number] [place] [address] 53923- 1808 Dec, [facility] [id number] [place] [address] 31298- 6759 Dec, [facility] [id number] [place] [address] 57800- 7298 Dec, [facility] [id number] [place] [address] 81757 -7994 Dec, Cough R05 ; Tobacco dependence F17.200 and Costochondritis , acute M94.0 [facility] [id number] [place] [address] 69414- 0944 Dec, Major depression, recurrent F33.9 ; Bipolar disorder, unspecified F31.9 and Posttraumatic stress disorder F43.10 [place] [id number] [place] [address] 44588- 7432 Nov, [place] [id number] [place] [address] 21941- 0255 Nov, [facility] [id number] [place] [address] 45532- 6132 October, [facility] [id number] [place] [address] 60187 -5060 October, Acute upper respiratory infection, unspecified J06.9 [facility] [id number] [place] [address] 90657- 2621 October, [facility] [id number] [place] [address] 46814- 3924 Sep, Bipolar affective disorder, remission status unspecified F31.9 and Post-traumatic stress disorder F43.10 [facility] [id number] [place] [address] 74390- 1372 Sep, Bipolar disorder, unspecified F31.9 ; Posttraumatic stress disorder F43.10 and Major depression, recurrent F33.9 [facility] [id number] [place] [address] 96171- 9018 Aug, Edema R60.9 ; Fatigue R53.83 and Polydipsia R63.1 [place] [id number] [address]- 4166 Aug, [facility] [address], [place] [address]- 8422 Aug, [facility] [address], [place] [address]- 6831 Jul, [facility] [id number] [place] [address] 64761- 8973 Jul, [facility] [id number] [place] [address] 93570- 1823 Jun, [facility] [id number] [place] [address] 982256- 7419 Jun, [facility] [id number] [place] [address] 96929- 4061 Jun, [facility] [id number] [place] [address] 07449- 9089 Jun, [facility] [address] [address]- 3679 May, Mixed hyperlipidemia E78.2 [place] [address] [place] [address] 65167- 5847 May, Well woman exam Z01.419 ; History of herpes simplex infection Z86.19 ; Papanicolaou smear Z12.4 ; History of depression Z86.59 ; History of anxiety Z86.59 ; Lipoma of other specified sites D17.79 ; Hidradenitis suppurativa L73.2 ; Routine screening for STI (sexually transmitted infection) Z11.3 and Tobacco use Z72.0 [place] [id number] [place] [address] 96196- 8678 May, Hematuria R31.9 ; Essential hypertension I10 ; Pure hypercholesterolemia E78.0 and Hidradenitis L73.2 [place] [address] [address]- 9699 16 Dec, 2015 Upper respiratory symptom R09.89 and Allergic rhinitis J30.9 [facility] [address] [place] [address]- 3224 16 May, 2015 [facility] [id number] [place] [address] 097555- 3126 May, [facility] [id number] [place] [address] 89113- 9370 May, Bipolar disorder, unspecified F31.9 ; Posttraumatic stress disorder F43.10 and Major depression, recurrent F33.9 [facility] [id number] [place] [address] 65708- 3581 May, [facility] [id number] [place] [address] 64613- 8239 May, [facility] [id number] [place] [address] 10491- 7293 Apr, [facility] [id number] [place] [address] 41316- 5483 Apr, [facility] [id number] [place] [address] 14825- 1016 Mar, [facility] [id number] [place] [address] 62371- 5233 Mar, [facility] [id number] [place] [address] 44719- 0571 Mar, [facility] [id number] [place] [address] 29170- 1602 18 Feb, 2015 Major depressive disorder, recurrent episode, moderate 296.32 and Post traumatic stress disorder (PTSD) 309.81 [facility] [id number] [place] [address] 812464- 9216 10 Feb, 2015 [facility] [id number] [place] [address] 79862- 4742 08 Feb, 2015 [facility] [id number] [place] [address] 30215- 5473 Jan, Cough 786.2 [facility] [address] 7476 Jan, Depression, major, recurrent, moderate 296.32 and Post traumatic stress disorder (PTSD) 309.81 [facility] [address]- 2091 Jan, [facility] [id number] [place] [address] 62904- 9742 Dec, [facility] [id number] [place] [address] 594028- 4838 Dec, Generalized anxiety disorder 300.02 and Depression, major, recurrent, moderate 296.32 [facility] [address] [place] [address] [phone] Dec, [facility] [id number] [place] [address] [phone] Dec, High risk medication use V58.69 [facility] [id number] [place] [address] [phone] Dec, High risk medication use V58.69 [facility] [id number] [place] [address] [phone] Dec, [facility] [id number] [place] [address] [phone] Nov, Generalized anxiety disorder 300.02 and Major depressive disorder, recurrent episode, moderate 296.32 [facility] [id number] [place] [address] [id number] Nov, Dental examination V72.2 [facility] [id number] [place] [address] [id number] Nov, Dental examination V72.2 [facility] [id number] [address] 2546 Nov, [facility] [id number] [place] [address] [id number] Nov, Dental examination V72.2 [facility] [address] [id number] [id number] Nov, Dental examination V72.2 [facility] [address] [id number] [address] October, Major depressive disorder, recurrent episode, moderate 296.32 and Generalized anxiety disorder 300.02 [facility] [address] [id number], [place] [address] 2546 October, [facility] [address] [id number], [place] [address] 97[address] October, [facility] [id number], [place] [address] 2546 October, [facility] [id number], [place] [address] Sep, [facility] [id number], [place] [address] 47[address] Sep, [facility] [address] [id number] [address] Aug, [facility] [address] [id number] [address] 32[address] 17 Aug, 2014 [facility] [address] [id number] [address] 8106 Aug, [facility] [address] [facility] [id number], [place] [address] 2546 Aug, [facility] [address] [facility] [id number], [place] [address] 7[address] Aug, [facility] [address] [facility] [id number], [place] [address]- 2546 Aug, [facility] [address] [facility] [id number], [place] [address]- 2546 Aug, [facility] [address], [place] [address]- 4813 Jul, 2014 [facility] [place] [facility] [address] [id number] [place] [address]- 8209 Jul, 2014 [facility] [place] [facility] [address] [id number] [place] [address]- 6435 Jul, 2014 [facility] [place] [facility] [address] [id number] [place] [address]- 3548 Jul, 2014 [facility] [place] [facility] [address] [id number] [place] [address]- 6474 Jul, 2014 [facility] [place] [facility] [address] [id number] [place] [address]- 0970 Jul, 2014 [facility] [place] [facility] [address] [id number] [place] [address]- 4952 Jul, 2014 [facility] [place] [facility] [address] [facility] [id number] [place] [address]- 6395 Jul, 2014 [facility] [place] [facility] [address] [facility] [id number] [place] [address]- 8115 Jul, [facility] [place] [facility] [address] [facility] [id number] [place] [address]- 6096 Jun, [facility] [place] [facility] [address] [facility] [id number] [place] [address]- 5431 Jun, [facility] [place] [facility] [address] [id number] [place] [address]- 9588 Jun, [facility] [place] [facility] [address] [id number] [place] [address]- 3100 Jun, [facility] [place] [facility] [address] [id number] [place] [address]- 9081 Jun, [facility] [place] [facility] [address] [facility] [id number] [place] [address]- 4746 Jun, [facility] [place] [facility] [address] [facility] [id number] [place] [address]- 5007 Jun, [facility] [place] [facility] [address] [id number] [place] [address]- 4601 Jun, [facility] [place] [facility] [address] [id number] [place] [address]- 7236 Jun, [facility] [place] [facility] [address] [id number] [place] [address]- 9753 Jun, [facility] [place] [facility] [address] [id number] [place] [address]- 1148 Jun, [facility] [place] [facility] [address] [id number] [place] [address]- 2961 Jun, [facility] [place] [facility] [address] [id number] [place] [address]- 5998 Jun, [facility] [place] [facility] [address] [id number] [place] [address]- 4625 Jun, [facility] [place] [facility] [address] [id number] [place] [address]- 3785 Jun, [facility] [place] [facility] [address] [id number] [place] [address]- 9197 Jun, [facility] [place] [facility] [address] [id number] [place] [address]- 0053 Jun, [facility] [place] [facility] [address] [id number] [place] [address]- 5579 Jun, [facility] [place] [facility] [address] [id number] [place] [address]- 7996 Jun, [facility] [place] [facility] [address] [id number] [place] [address]- 4441 Jun, [facility] [place] [facility] [address] [id number] [place] [address]- 3424 Jun, [facility] [place] [facility] [address] [id number] [place] [address]- 5880 Jun, [facility] [place] [facility] [address] [id number], [place] [address]- 9039 Jun, [facility] [place] [facility] [address] [id number] [place] [address]- 4150 Jun, [facility] [place] [facility] [address] [id number] [place] [address]- 9018 Jun, [facility] [place] [facility] [address] [id number] [place] [address]- 2168 May, [facility] [place] [facility] [address] [id number] [place] [address]- 5480 May, [facility] [place] [facility] [address] [id number] [place] [address]- 9106 May, [facility] [place] [facility] [address] [id number] [place] [address]- 1450 May, [facility] [place] [facility] [address] [id number] [place] [address]- 8146 May, [facility] [place] [facility] [address] [id number] [place] [address]- 7556 May, [facility] [place] [facility] [address] [id number] [place] [address]- 8890 May, [facility] [place] [facility] [address] [id number] [place] [address]- 1401 May, [facility] [place] [facility] [address] [id number] [place] [address]- 8282 May, [facility] [place] [facility] [address] [id number] [place] [address]- 4776 May, [facility] [place] [facility] [address] [id number] [place] [address]- 7829 May, [facility] [place] [facility] [address] [id number] [place] [address]- 5458 May, [facility] [place] [facility] [address] [id number] [place] [address]- 0031 May, [facility] [place] [facility] [address] [id number] [place] [address]- 5634 08 May, 2014 [facility] [place] [facility] [address] [id number] [place] [address]- 4080 May, [facility] [place] [facility] [address] [id number] [place] [address]- 2746 May, [facility] [place] [facility] [address] [id number] [place] [address]- 3500 May, [facility] [place] [facility] [address] [id number] [place] [address]- 6114 May, [facility] [place] [facility] [address] [id number] [place] [address]- 5442 Apr, [facility] [place] [facility] [address] [id number] [place] [address]- 2871 Apr, [facility] [place] [facility] [address] [id number] [place] [address]- 4654 Apr, [facility] [place] [facility] [address] [id number] [place] [address]- 3797 Apr, [facility] [place] [facility] [address] [id number] [place] [address]- 9999 Apr, [facility] [place] [facility] [address] [facility] [id number] [place] [address]- 0297 Apr, [facility] [place] [facility] [address] [id number] [place] [address]- 5399 Apr, [facility] [place] [facility] [address] [id number] [place] [address]- 6752 Apr, [facility] [place] [facility] [address] [id number] [place] [address]- 8657 Mar, [facility] [place] [facility] [address] [id number] [place] [address]- 7297 Mar, [facility] [place] [facility] [address] [id number] [place] [address]- 4416 Feb, [facility] [place] [facility] [address] [id number] [place] [address]- 7219 Feb, 2013 [facility] [place] [facility] [address] [id number] [place] [address]- 3096 Feb, [facility] [place] [facility] [address] [id number] [place] [address]- 0581 Feb, [facility] [place] [facility] [address] [id number] [place] [address]- 2567 Feb, 2013 [facility] [place] [facility] [address] [id number] [place] [address]- 1929 Feb, [facility] [place] [facility] [address] [id number] [place] [address]- 8302 Feb, [facility] [place] [facility] [address] [id number] [place] [address]- 9809 Feb, [facility] [place] [facility] [address] [id number] [place] [address]- 1780 Feb, [facility] [place] [facility] [address] [id number] [place] [address]- 9727 Feb, [facility] [place] [facility] [address] [id number] [place] [address]- 3728 Jan, [facility] [place] [facility] [address] [id number] [place] [address]- 8035 Jan, [facility] [place] [facility] [address] [id number] [place] [address]- 1070 Jan, [facility] [place] [facility] [address] [id number] [place] [address]- 2957 Jan, [facility] [place] [facility] [address] [id number] [place] [address]- 7721 Jan, [facility] [place] [facility] [address] [id number] [place] [address]- 1937 Jan, [facility] [place] [facility] [address] [id number] [place] [address]- 7411 Jan, [facility] [place] [facility] [address] [id number] [place] [address]- 9805 Jan, [facility] [place] [facility] [address] [id number] [place] [address]- 0755 Jan, [facility] [place] [facility] [address] [id number] [place] [address]- 4405 Jan, [facility] [place] [facility] [address] [id number] [place] [address]- 1246 Jan, [facility] [place] [facility] [address] [id number] [place] [address]- 9296 Jan, [facility] [place] [facility] [address] [id number] [place] [address]- 4950 Jan, [facility] [place] [facility] [address] [id number] [place] [address]- 1287 Dec, [facility] [place] [facility] [address] [id number] [place] [address]- 8192 Dec, [facility] [place] [facility] [address] [id number] [place] [address]- 7395 Dec, [facility] [place] [facility] [address] [id number] [place] [address]- 3001 Dec, [facility] [place] [facility] [address] [id number] [place] [address]- 6173 Dec, [facility] [place] [facility] [address] [id number] [place] [address]- 6289 Dec, [facility] [place] [facility] [address] [id number] [place] [address]- 7608 Dec, [facility] [place] [facility] [address] [id number] [place] [address]- 3195 Dec, [facility] [place] [facility] [address] [id number] [place] [address]- 4982 Dec, [facility] [place] [facility] [address] [id number] [place] [address]- 5974 Dec, [facility] [place] [facility] [address] [id number] [place] [address]- 7754 Dec, [facility] [place] [facility] [address] [id number] [place] [address]- 0755 Dec, [facility] [place] [facility] [address] [id number] [place] [address]- 7458 Dec, [facility] [place] [facility] [address] [id number] [place] [address]- 7312 Dec, [facility] [place] [facility] [address] [id number] [place] [address]- 6486 Nov, [facility] [place] [facility] [address] [id number] [place] [address]- 6952 Nov, [facility] [place] [facility] [address] [id number] [place] [address]- 7984 Nov, [facility] [place] [facility] [address] [id number] [place] [address]- 9964 Nov, [facility] [place] [facility] [address] [id number] [place] [address]- 8165 Nov, [facility] [place] [facility] [address] [id number] [place] [address]- 1637 Nov, [facility] [place] [facility] [address] [id number] [place] [address]- 5979 Nov, [facility] [place] [facility] [address] [id number] [place] [address]- 6879 Nov, [facility] [place] [facility] [address] [id number] [place] [address]- 5229 October, [facility] [place] [facility] [address] [id number] [place] [address]- 4263 October, [facility] [place] [facility] [address] [id number] [place] [address]- 0444 October, [facility] [place] [facility] [address] [id number] [id number] 6856 October, [facility] [place] [facility] [address] [id number] [place] [address]- 5352 October, [facility] [place] [facility] [address] [id number] [place] [address]- 3619 October, [facility] [place] [facility] [address] [id number] [place] [address]- 0131 October, [facility] [place] [facility] [address] [id number] [place] [address]- 4980 October, [facility] [place] [facility] [address] [id number] [place] [address]- 8032 October, [facility] [place] [facility] [address] [id number] [place] [address]- 5797 October, [facility] [place] [facility] [address] [id number] [place] [address]- 0700 October, [facility] [place] [facility] [address] [id number] [place] [address]- 4692 October, [facility] [place] [facility] [address] [id number] [place] [address]- 7850 October, [facility] [place] [facility] [address] [id number] [place] [address]- 1924 October, [facility] [place] [facility] [address] [id number] [place] [address]- 5391 October, [facility] [place] [facility] [address] [id number] [place] [address]- 1982 October, [facility] [place] [facility] [address] [id number] [place] [address]- 3997 Sep, [facility] [place] [facility] [address] [id number] [place] [address]- 1702 Sep, [facility] [place] [facility] [address] [id number] [place] [address]- 5177 Sep, [facility] [address] [id number] [place] [address]- 7566 Sep, [facility] [address] [id number] [place] [address]- 2968 Sep, [facility] [address] [id number] [place] [address]- 1774 Sep, [facility] [address] [id number] [place] [address]- 0323 Sep, [facility] [address] [id number] [place] [address]- 9244 Sep, [facility] [address] [id number] [place] [address]- 8072 Sep, [facility] [address] [id number] [place] [address]- 2933 Sep, [facility] [address] [id number] [place] [address]- 5792 Sep, [facility] [address] [id number] [place] [address]- 9549 Sep, [facility] [address] [id number] [place] [address]- 3030 Sep, [facility] [place] [facility] [address] [id number] [place] [address]- 3541 Sep, [facility] [place] [facility] [address] [id number] [place] [address]- 6244 Sep, [facility] [place] [facility] [address] [id number] [place] [address]- 0257 Sep, [facility] [place] [facility] [address] [id number] [place] [address]- 2582 Sep, [facility] [place] [facility] [address] [id number] [place] [address]- 8282 Sep, [facility] [place] [facility] [address] [id number] [place] [address]- 0415 Sep, [facility] [place] [facility] [address] [id number] [place] [address]- 3493 Aug, [facility] [place] [facility] [address] [id number] [place] [address]- 6137 Aug, [facility] [place] [facility] [address] [id number] [place] [address]- 3141 Aug, [facility] [place] [facility] [address] [id number] [place] [address]- 3436 Aug, [facility] [place] [facility] [address] [id number] [place] [address]- 3373 Jul, [facility] [place] [facility] [address] [id number] [place] [address]- 2567 Jul, [facility] [place] [facility] [address] [id number] [place] [address]- 6422 Jul, [facility] [place] [facility] [address] [id number] [place] [address]- 9104 Jul, [facility] [place] [facility] [address] [id number] [place] [address]- 2771 Jul, [facility] [place] [facility] [address] [id number] [place] [address]- 0956 Jul, [facility] [place] [facility] [address] [id number] [place] [address]- 3388 Jul, [facility] [place] [facility] [address] [id number] [place] [address]- 7004 Jul, [facility] [place] [facility] [address] [id number] [place] [address]- 6101 Jul, [facility] [place] [facility] [address] [id number] [place] [address]- 7571 Jul, [facility] [place] [facility] [address] [id number] [place] [address]- 0373 Jul, [facility] [address] [id number] [place] [address]- 2076 Jul, [facility] [address] [id number] [place] [address]- 1095 Jun, [facility] [address] [id number] [place] [address]- 2890 Jun, [facility] [place] [facility] [address] [id number] [place] [address]- 4817 Jun, [facility] [address] [id number] [place] [address]- 9088 Jun, [facility] [address] [id number] [place] [address]- 6046 Jun, [facility] [address] [id number] [place] [address]- 8547 Jun, [facility] [address] [id number] [place] [address]- 4246 May, [facility] [address] [id number] [place] [address]- 6902 May, [facility] [address] [id number] [place] [address]- 8978 Apr, [facility] [place] [facility] [address] [id number] [place] [address]- 0502 Apr, [facility] [place] [facility] [address] [id number] [place] [address]- 4879 Apr, [facility] [place] [facility] [address] [id number] [place] [address]- 2332 Apr, [facility] [place] [facility] [address] [id number] [place] [address]- 8343 Apr, [facility] [place] [facility] [address] [id number] [place] [address]- 3437 Apr, [facility] [place] [facility] [address] [id number] [place] [address]- 3754 17 Apr, 2013 [facility] [place] [facility] [address] [id number] [place] [address]- 7253 15 Apr, 2013 [facility] [place] [facility] [address] [id number] [place] [address]- 2403 15 Apr, 2013 [facility] [place] [facility] [address] [id number] [place] [address]- 2949 15 Apr, 2013 [facility] [place] [facility] [address] [id number] [place] [address]- 1034 15 Apr, 2013 [facility] [place] [facility] [address] [id number], [place] [address]- 4544 Apr, [facility] [place] [facility] [address] [id number] [place] [address]- 9923 Apr, [facility] [place] [facility] [address] [id number], [place] [address]- 8053 31 Mar, 2013 [facility] [place] [facility] [address] [id number] [place] [address]- 9816 31 Mar, 2013 [facility] [place] [facility] [address] [id number], [place] [address]- 1939 25 Mar, 2013 [facility] [place] [facility] [address] [id number], [place] [address]- 5069 25 Mar, 2013 [facility] [place] [facility] [address] [id number], [place] [address] 17 Mar, 2013 [facility] [place] [facility] [address] [id number], [place] [address] 17 Mar, 2013 [facility] [place] [facility] [address] [id number], [place] [address] 14 Mar, 2013 [facility] [place] [facility] [address] [id number], [place] [address] 14 Mar, 2013 [facility] [place] [facility] [address] [id number] [place] [address] 11 Mar, 2013 [facility] [place] [facility] [address] [id number] [place] [address] 11 Mar, 2013 [facility] [place] [facility] [address] [id number] [place] [address] 02 Mar, 2013 [facility] [place] [facility] [address] [id number] [place] [address] 30 Feb, 2013 [facility] [place] [facility] [address] [id number] [place] [address] 28 Feb, 2013 [facility] [place] [facility] [address] [id number] [place] [address] 27 Feb, 2013 [facility] [place] [facility] [address] [id number] [place] [address] 27 Feb, 2013 [facility] [place] [facility] [address] [id number] [place] [address] 20 Feb, 2013 [facility] [place] [facility] [address] [id number] [place] [address] 10 Feb, 2013 [facility] [place] [facility] [address] [id number] [place] [address] Jan, [facility] [place] [facility] [address] [id number] [place] [address] Jan, [facility] [place] [facility] [address] [id number] [place] [address] Dec, [facility] [place] [facility] [address] [id number] [place] [address] Dec, [facility] [place] [facility] [address] [id number] [place] [address] 15 Dec, 2012 [facility] [place] [facility] [address] [id number] [place] [address] Dec, [facility] [place] [facility] [address] [id number] [place] [address] Nov, [facility] [place] [facility] [address] [id number] [place] [address] Nov, [facility] [address] [id number] [place] [address] Nov, [facility] [address] [id number] [place] [address] October, [facility] [address] [id number] [place] [address] October, [facility] [address] [id number] [place] [address] October, [facility] [address] [id number] [place] [address] October, [facility] [address] [id number] [place] [address] October, [facility] [address] [id number] [place] [address] Sep, [facility] [address] [id number] [place] [address] Sep, [facility] [address] [id number] [place] [address] Aug, [facility] [address] [id number] [place] [address] Aug, [facility] [address] [id number] [place] [address] Aug, [facility] [address] [id number] [place] [address] Aug, [facility] [place] [facility] [address] [id number] [place] [address] Aug, [facility] [facility] [address] [id number] [place] [address] Jul, [facility] [place] [facility] [address] [id number] [place] [address] Jul, [facility] [address] [id number] [place] [address] Jul, [facility] [address] [id number] [place] [address] Jul, [facility] [address] [id number] [place] [address] Jun, [facility] [address] [id number] [place] [address] Jun, [facility] [address] [id number] [place] [address]- [address] Jun, [facility] [address] [id number] [place] [address]- [address] Jun, [facility] [address] [id number] [place] [address]- [address] Jun, [facility] [address] [id number] [place] [address] Jun, [facility] [address] [id number] [place] [address]- [address] Jun, [facility] [address] [id number] [place] [address] Jun, [facility] [address] [id number], [place] [address] Jun, [facility] [address] [id number] [place] [address] 34[address] Jun, [facility] [address] [id number] [place] [address]- [address]266 Jun, [facility] [facility] [address] [id number] [place] [address] May, [facility] [address] [id number] [place] [address] May, [facility] [facility] [address] [id number] [place] [address] Apr, [facility] [place] [facility] [address] [id number] [place] [address] Apr, [facility] [place] [facility] [address] [id number] [place] [address] Mar, [facility] [place] [facility] [address] [id number] [place] [address] 407[address] Mar, [facility] [place] [facility] [address] [id number] [place] [address] Mar, [facility] [place] [facility] [address] [id number] [place] [address] Mar, [facility] [address] [id number] [place] [address] Mar, [facility] [place] [facility] [address] [id number] [place] [address] Mar, [facility] [place] [facility] [address] [id number] [place] [address] Mar, [facility] [place] [facility] [address] [id number] [place] [address] Mar, [facility] [place] [facility] [address] [id number] [place] [address] Mar, [facility] [place] [facility] [address] [id number] [place] [address] Feb, [facility] [place] [facility] [address] [id number] [place] [address] Jan, [facility] [place] [facility] [address] [id number] [place] [address] Jan, [facility] [place] [facility] [address] [id number] [place] [address] Dec, [facility] [place] [facility] [address] [id number] [place] [address] Dec, [facility] [place] [facility] [address] [id number] [place] [address] Dec, [facility] [place] [facility] [address] [id number] [place] [address] Nov, [facility] [place] [facility] [address] [id number] [place] [address] Nov, [facility] [place] [facility] [address] [id number] [place] [address] Nov, [facility] [place] [facility] [address] [id number] [place] [address] Nov, [facility] [place] [facility] [address] [id number] [place] [address] October, [facility] [place] [facility] [address] [id number] [place] [address] October, [facility] [place] [facility] [address] [id number] [place] [address] Sep, [facility] [place] [facility] [address] [id number] [place] [address] Sep, [facility] [place] [facility] [address] [id number] [place] [address] Aug, [facility] [place] [facility] [address] [id number] [place] [address] Jul, [facility] [place] [facility] [address] [id number], [place] [address] Jul, [facility] [place] [facility] [address] [id number] [place] [address] Jul, [facility] [place] [facility] [address] [id number] [place] [address] Jul, [facility] [place] [facility] [address] [id number] [place] [address] Jun, [facility] [place] [facility] [address] [id number] [place] [address] 15 May, 2011 [facility] [address] [id number] [place] [address] 15 May, 2011 [facility] [place] [facility] [address] [id number] [place] [address] 15 May, 2011 [facility] [place] [facility] [address] [id number] [place] [address] 13 May, 2011 [facility] [place] [facility] [address] [id number] [place] [address] 08 May, 2011 [facility] [place] [facility] [address] [id number] [place] [address] 14 Apr, 2011 [facility] [place] [facility] [address] [id number] [place] [address] 14 Apr, 2011 [facility] [place] [facility] [address] [id number] [place] [address] 14 Apr, 2011 [facility] [place] [facility] [address] [id number] [place] [address] 07 Apr, 2011 [facility] [place] [facility] [address] [id number] [place] [address] 02 Apr, 2011 [facility] [place] [facility] [address] [id number] [place] [address] 26 Mar, 2011 [facility] [place] [facility] [address] [id number] [place] [address] 25 Mar, 2011 [facility] [place] [facility] [address] [id number] [place] [address] 14 Mar, 2011 [facility] [place] [facility] [address] [id number] [place] [address] 14 Mar, 2011 [facility] [place] [facility] [address] [id number] [place] [address] 13 Mar, 2011 [facility] [place] [facility] [address] [id number] [place] [address] 11 Mar, 2011 [facility] [address] [id number] [address] Mar, [facility] [address] [id number] [address] Mar, [facility] [id number], [place] [address] 14 Feb, 2011 [facility] [id number], [place] [address] May, [facility] [id number], [place] [address] 254 May, [facility] [id number], [place] [address] May, [facility] [id number], [place] [address] Apr, [facility] [address] [id number], [place] [address] Mar, IMMUNIZATIONS No Known Immunizations SOCIAL HISTORY Never Assessed REASON FOR VISIT Refill request PLAN OF CARE VITAL SIGNS MEDICATIONS Unknown [...]
--- OUTSIDE RECORDS SUMMARY | 2018-08-19 10:00 | XMS REPORT ---
Author Author WENDI BLACK Organization [facility] Address [address] [place] [address] Care Team Providers Care Stockbroker Name Role Phone SOFIAMARIA EUGENIA ELIZABETHHANY Unavailable PROBLEMS Type Condition ICD9-CM Code [id number] Code Onset Dates Condition Status SNOMED Code Problem Posttraumatic stress disorder F43.10 Active 05497954 Problem Generalized anxiety disorder F41.1 Active 51619730 Problem Panic disorder F41.0 Active 031637225 Problem Nausea R11.0 Active 786739966 Problem Mild intermittent asthma without complication J45.20 Active 238022754 Problem Hot flashes R23.2 Active 589888916 Problem Vitamin D deficiency E55.9 Active 08998079 Problem Mixed hyperlipidemia E78.2 Active 276882203 Problem Low back pain with sciatica, sciatica laterality unspecified, unspecified back pain laterality, unspecified chronicity M54.40 Active 351077158 Problem Bipolar disorder, current episode mixed, moderate F31.62 Active 350178546 Problem Multiple fractures T07.XXXA Active 890398139 Problem Acute right-sided low back pain with right-sided sciatica M54.41 Active 40259611 Problem Essential hypertension I10 Active 12326141 Problem Anxiety F41.9 Active 18178289 Problem Gastroesophageal reflux disease, esophagitis presence not specified K21.9 Active 446208199 Problem Bipolar disorder F31.9 Active 07194066 Problem Depression F32.9 Active 12741166 Problem History of IBS Z87.19 Active 47833796797697 Problem Primary insomnia F51.01 Active 233939177 Problem Genital herpes simplex, unspecified site A60.00 Active 60244671 Problem Hidradenitis suppurativa L73.2 Active 18500082 Problem Tobacco use Z72.0 Active 177497643 ALLERGIES No Information ENCOUNTERS Encounter Location Date Diagnosis [facility] [address] [facility] [id number] [address] May, [facility] [address] [address] Apr, [facility] [id number] [place] [address] 017781- 1261 Apr, [facility] [id number] [address] 78[address] Mar, [facility] [id number] [place] [address] 17225- 9296 Mar, Genital herpes simplex, unspecified site A60.00 [facility] [address] [address] 1353 Mar, [facility] [id number] [place] [address] 44297- 1990 Mar, [facility] [id number] [place] [address] 30901- 2757 Mar, Panic disorder F41.0 [facility] [address] [address] 6[address] Mar, [facility] [id number] [place] [address] 18376- 7951 Mar, Genital herpes simplex, unspecified site A60.00 and Hidradenitis L73.2 [facility] [address] [address] 0[address] Feb, Panic disorder F41.0 ; Bipolar disorder, current episode mixed, moderate F31.62 and Generalized anxiety disorder F41.1 [facility] [address] [address] 0516 Feb, Panic disorder F41.0 [facility] [id number] [place] [address] 544113- 2554 Jan, Genital herpes simplex, unspecified site A60.00 [facility] [address], [place] [address] 4856 Jan, Panic disorder F41.0 [facility] [id number] [place] [address] 47189- 8893 Dec, Diaphoresis R61 and Excessive thirst R63.1 [facility] [id number] [place] [address] 13358- 7268 Dec, Panic disorder F41.0 ; Bipolar disorder, current episode mixed, moderate F31.62 and Generalized anxiety disorder F41.1 [facility] [id number] [place] [address] 90687- 7752 Dec, Panic disorder F41.0 [facility] [id number] [place] [address] 50692- 4912 Nov, Panic disorder F41.0 [facility] [id number] [place] [address] 91896- 8565 Nov, Panic disorder F41.0 ; Generalized anxiety disorder F41.1 and Bipolar disorder, current episode mixed, moderate F31.62 [facility] [id number] [place] [address] 57593- 0389 Nov, Panic disorder F41.0 [facility] [id number] [place] [address] 79101- 6309 Nov, Panic disorder F41.0 [facility] [id number] [place] [address] 00016- 9276 October, Panic disorder F41.0 [facility] [id number] [place] [address] 32525- 9415 October, Panic disorder F41.0 ; Generalized anxiety disorder F41.1 and Bipolar disorder, current episode mixed, moderate F31.62 [facility] [id number] [place] [address] 68675- 2222 October, Panic disorder F41.0 [facility] [id number] [place] [address] 65961- 2827 Sep, Hospital discharge follow-up Z09 ; Concussion without loss of consciousness, initial encounter S06.0X0A and Nausea R11.0 [facility] [id number] [place] [address] 67162- 8708 Sep, [facility] [id number] [place] [address] 17993- 8432 Sep, Panic disorder F41.0 [place] [id number] [place] [address] 96292- 3520 Sep, [facility] [id number] [place] [address] 04843- 6053 Sep, Well woman exam with routine gynecological exam Z01.419 ; Multiple fractures T07.XXXA ; Hot flashes R23.2 ; Essential hypertension I10 ; Mixed hyperlipidemia E78.2 ; Genital herpes simplex, unspecified site A60.00 ; Alkaline phosphatase elevation R74.8 ; Dysuria R30.0 ; Vitamin D deficiency E55.9 ; Tobacco use Z72.0 ; High risk sexual behavior Z72.51 and Encounter for immunization Z23 [facility] [id number] [place] [address] 72470- 7203 Aug, Panic disorder F41.0 ; Generalized anxiety disorder F41.1 and Bipolar disorder, current episode mixed, moderate F31.62 [facility] [id number] [place] [address] 27992- 7350 Aug, [facility] [id number] [place] [address] 61332- 3909 Jul, Panic disorder F41.0 ; Generalized anxiety disorder F41.1 and Bipolar disorder, current episode mixed, moderate F31.62 [facility] [id number] [place] [address] 72221- 9460 Jul, [facility] [id number] [place] [address] 87443- 0266 Jul, [facility] [id number] [place] [address] 09622- 6855 Jul, Effusion, right knee M25.461 ; Acute pain of right knee M25.561 and Acute pain of left knee M25.562 [place] [id number] [place] [address] 65086- 7969 Jun, Bipolar disorder, current episode mixed, moderate F31.62 ; Generalized anxiety disorder F41.1 and Panic disorder F41.0 [facility] [id number] [place] [address] 37178- 5980 May, Bipolar disorder, current episode mixed, moderate F31.62 ; Generalized anxiety disorder F41.1 and Panic disorder F41.0 [facility] [facility] [id number] [place] [address] 56173- 3648 May, Bipolar disorder, current episode mixed, moderate F31.62 [facility] [id number] [place] [address] 79591- 5448 May, Bipolar disorder, current episode mixed, moderate F31.62 [facility] [id number] [place] [address] 91184- 1712 Apr, Bipolar disorder, current episode mixed, moderate F31.62 ; Generalized anxiety disorder F41.1 and Panic disorder F41.0 [place] [id number] [place] [address] 41514- 2139 Mar, [facility] [id number] [place] [address] 23575- 2958 Mar, Bipolar disorder, current episode mixed, moderate F31.62 ; Generalized anxiety disorder F41.1 and Panic disorder F41.0 [facility] [facility] [id number] [place] [address] 14410- 6886 Feb, [facility] [id number] [place] [address] 79009- 2386 22 Feb, 2017 Posttraumatic stress disorder F43.10 [facility] [id number] [place] [address] 13212- 1502 Feb, Gastroesophageal reflux disease, esophagitis presence not specified K21.9 [facility] [address], [place] [address]- 8575 13 Feb, 2017 [facility] [id number] [place] [address] 36203- 1171 06 Feb, 2017 Knee pain, right anterior M25.561 [facility] [id number] [place] [address] 81265- 1016 05 Feb, 2017 HSV (herpes simplex virus) infection B00.9 [facility] [id number] [place] [address] 46694- 2935 Feb, [facility] [id number] [place] [address] 53355- 4718 Jan, [facility] [id number] [place] [address] 69109- 4761 Jan, Posttraumatic stress disorder F43.10 [facility] [id number] [place] [address] 88766- 9121 Jan, Foot pain, left M79.672 [facility] [id number] [place] [address] 20595- 0057 Jan, [facility] [id number] [place] [address] 83030- 3356 Jan, Lumbar radiculopathy, acute M54.16 ; Muscle spasm of back M62.830 and Right hip pain M25.551 [facility] [id number] [place] [address] 70510- 1260 Jan, Lumbar radiculopathy, acute M54.16 [facility] [id number] [place] [address] 79714- 3331 Jan, [facility] [id number] [place] [address] 26638- 2039 Jan, [facility] [id number] [place] [address] 42883- 0357 Dec, Lumbar radiculopathy, acute M54.16 ; Acute renal insufficiency N28.9 and Muscle spasm of back M62.830 [facility] [id number] [address]- 8441 Dec, [facility] [id number] [place] [address] 90776- 4930 Dec, [facility] [id number] [place] [address] 41825- 1702 Dec, [facility] [id number] [place] [address] 32203 -9220 Dec, Low back pain with sciatica, sciatica laterality unspecified, unspecified back pain laterality, unspecified chronicity M54.40 and Acute right-sided low back pain with right-sided sciatica M54.41 [facility] [id number] [place] [address] 49941- 6013 Dec, Posttraumatic stress disorder F43.10 [facility] [id number] [place] [address] 01927- 6271 Dec, [facility] [id number] [place] [address] 83200- 4233 Dec, Pain in right thigh M79.651 and Acute right-sided low back pain without sciatica M54.5 [facility] [id number] [place] [address] 98725- 2385 Dec, Posttraumatic stress disorder F43.10 and Major depressive disorder, recurrent episode with anxious distress F33.9 [facility] [address], [place] [address]7570 Dec, [facility] [id number] [place] [address] 00792- 9087 Nov, [facility] [id number] [place] [address] 50980- 4909 October, [facility] [id number] [place] [address] 95681- 1243 October, [facility] [address], [place] [address]- 4056 October, Knee pain, right anterior M25.561 [facility] [id number] [place] [address] 32066- 3281 October, Knee pain, right anterior M25.561 [facility] [id number] [place] [address] 86229- 1729 October, [facility] [id number] [place] [address] 88781- 1260 October, [facility] [id number] [place] [address] 42190- 4152 October, [facility] [id number] [place] [address] 46017 -0275 Sep, [facility] [id number] [place] [address] 95681- 7877 Sep, [facility] [id number] [place] [address] 45772- 4556 Sep, Essential hypertension I10 [facility] [id number] [place] [address] 46899- 9556 11 Sep, 2016 Essential hypertension I10 [facility] [address], [place] [address]- 5230 Sep, [facility] [id number] [place] [address] 45296- 8630 Sep, Posttraumatic stress disorder F43.10 and Major depressive disorder, recurrent episode with anxious distress F33.9 [facility] [id number] [place] [address] 74240- 2487 07 Sep, 2016 Multiple fractures T14.8 ; Alkaline phosphatase elevation R74.8 and Vitamin D deficiency E55.9 [facility] [address], [place] [address]- 0271 Sep, [facility] [id number] [place] [address] 08648- 4117 Sep, Elevated serum creatinine R79.89 ; Fracture of foot, left, closed, initial encounter S92.902A and Alkaline phosphatase elevation R74.8 [facility] [id number] [place] [address] 09089- 8487 Sep, Elevated serum creatinine R79.89 and Essential hypertension I10 [facility] [address] 11944- 4150 Sep, [place] [address] 00394- 4779 Aug, Gastroesophageal reflux disease, esophagitis presence not specified K21.9 [place] [address] 93314- 0792 Aug, Essential hypertension I10 ; Fracture of foot, left, closed , initial encounter S92.902A and Alkaline phosphatase elevation R74.8 [place] [address] 82693- 9454 Jul, Genital herpes simplex, unspecified site A60.00 [place] [address] 58687- 3032 Jul, Essential hypertension I10 [place] [address] 87354- 4838 Jun, Cough R05 and Wheezing R06.2 [place] [address] 61390- 0446 Jun, Essential hypertension I10 [place] [address] 95040- 9360 May, Essential hypertension I10 [place] [address] 50089- 9013 May, Posttraumatic stress disorder F43.10 and Major depressive disorder, recurrent episode with anxious distress F33.9 [place] [address] 20543- 7607 Apr, [facility] [address], [place] [address]- 1229 Apr, [facility] [id number] [place] [address] 31280- 7596 Apr, [facility] [id number] [place] [address] 96299- 6241 Mar, [facility] [id number] [place] [address] 53456- 3619 Feb, [facility] [id number] [place] [address] 68711- 8892 Jan, [facility] [address] [place] [id number] [place] [address] 45817- 3697 Jan, Essential hypertension I10 ; Mixed hyperlipidemia E78.2 ; Gastroesophageal reflux disease, esophagitis presence not specified K21.9 ; Mild intermittent asthma without complication J45.20 ; Hidradenitis suppurativa L73.2 ; Migraine without status migrainosus, not intractable, unspecified migraine type G43.909 ; Genital herpes simplex, unspecified site A60.00 and Closed traumatic minimally displaced fracture of metatarsal bone of left foot S92.302A [facility] [id number] [place] [address] 70814 -5507 Jan, Localized edema R60.0 [facility] [id number] [place] [address] 54478- 1542 Dec, [facility] [id number] [place] [address] 39403- 3553 Dec, [facility] [id number] [place] [address] 62259- 8248 Dec, [facility] [id number] [place] [address] 16592 -8052 Dec, Cough R05 ; Tobacco dependence F17.200 and Costochondritis , acute M94.0 [facility] [id number] [address]- 9918 Dec, Major depression, recurrent F33.9 ; Bipolar disorder, unspecified F31.9 and Posttraumatic stress disorder F43.10 [facility] [id number] [place] [address] 49544- 2236 Nov, [facility] [id number] [place] [address] 71170- 7591 Nov, [facility] [id number] [place] [address] 24946- 2735 October, [facility] [id number] [place] [address] 13666 -3852 October, Acute upper respiratory infection, unspecified J06.9 [facility] [id number] [place] [address] 79722- 0462 October, [facility] [id number] [place] [address] 91219- 6980 Sep, Bipolar affective disorder, remission status unspecified F31.9 and Post-traumatic stress disorder F43.10 [facility] [id number] [place] [address] 98027- 7941 Sep, Bipolar disorder, unspecified F31.9 ; Posttraumatic stress disorder F43.10 and Major depression, recurrent F33.9 [facility] [id number] [place] [address] 47765- 8606 Aug, Edema R60.9 ; Fatigue R53.83 and Polydipsia R63.1 [facility] [address] [address]- 5729 Aug, [facility] [id number] [place] [address] 68163- 9394 Aug, [facility] [id number] [place] [address] 68882- 6990 Jul, [facility] [id number] [place] [address] 18679- 4353 Jul, [facility] [address], [place] [address]- 5103 Jun, [facility] [id number] [place] [address] 20035- 8483 Jun, [facility] [id number] [place] [address] 63857- 1453 Jun, [facility] [id number] [place] [address] 68606- 8895 Jun, [facility] [id number] [place] [address] 28393- 0611 May, Mixed hyperlipidemia E78.2 [facility] [facility] [address] [place] [address] [id number] [place] [address] 46287- 9949 May, Well woman exam Z01.419 ; History of herpes simplex infection Z86.19 ; Papanicolaou smear Z12.4 ; History of depression Z86.59 ; History of anxiety Z86.59 ; Lipoma of other specified sites D17.79 ; Hidradenitis suppurativa L73.2 ; Routine screening for STI (sexually transmitted infection) Z11.3 and Tobacco use Z72.0 [facility] [id number] [place] [address] 82448- 1010 May, Hematuria R31.9 ; Essential hypertension I10 ; Pure hypercholesterolemia E78.0 and Hidradenitis L73.2 [place] [id number] [place] [address] 45446- 2217 May, Upper respiratory symptom R09.89 and Allergic rhinitis J30.9 [facility] [address] [place] [id number] [place] [address] 46887- 2229 May, [facility] [address] [place] [address] [id number] [place] [address] 35731- 4632 May, [facility] [address] [place] [id number] [place] [address] 66409- 4768 May, Bipolar disorder, unspecified F31.9 ; Posttraumatic stress disorder F43.10 and Major depression, recurrent F33.9 [facility] [address] [address]- 2216 May, [facility] [address] [address]- 5560 May, [facility] [id number] [place] [address] 431919- 6872 Apr, [facility] [id number] [place] [address] 02009- 4125 Apr, [facility] [id number] [place] [address] 873141- 6696 Mar, [facility] [id number] [place] [phone] [phone] Mar, [facility] [id number] [place] [address] [phone] Mar, [facility] [id number] [address] 18 Feb, 2015 Major depressive disorder, recurrent episode, moderate 296.32 and Post traumatic stress disorder (PTSD) 309.81 [facility] [id number] [address] Feb, [facility] [id number] [address] Feb, [facility] [id number] [address] Jan, Cough 786.2 [facility] [id number] [place] [address] [phone] Jan, Depression, major, recurrent, moderate 296.32 and Post traumatic stress disorder (PTSD) 309.81 [facility] [id number] [address] Jan, [facility] [address] [address] [address] Dec, [facility] [id number] [address] Dec, Generalized anxiety disorder 300.02 and Depression, major, recurrent, moderate 296.32 [facility] [id number], [place] [address] 14 Dec, 2014 [facility] [id number] [address] Dec, High risk medication use V58.69 [facility] [id number] [place] [address] [phone] 4362 Dec, High risk medication use V58.69 [facility] [id number] [address] Dec, [facility] [id number] [place] [address]60- [address]24 Nov, Generalized anxiety disorder 300.02 and Major depressive disorder, recurrent episode, moderate 296.32 [facility] [id number] [place] [address] [id number] Nov, Dental examination V72.2 [facility] [id number] [id number] Nov, Dental examination V72.2 [facility] [id number] [address] Nov, [facility] [id number] [place] [address] [id number] Nov, Dental examination V72.2 [facility] [id number] [place] [address] [id number] Nov, Dental examination V72.2 [facility] [id number] [address] October, Major depressive disorder, recurrent episode, moderate 296.32 and Generalized anxiety disorder 300.02 [facility] [id number] [place] [address] October, [facility] [facility] [address] [id number] [place] [address] October, [facility] [place] [facility] [address] [id number] [place] [address] 45[address] October, [facility] [place] [facility] [address] [id number] [place] [address] 6[address] Sep, [facility] [place] [facility] [address] [id number] [place] [address] 5971 Sep, [facility] [place] [facility] [address] [id number] [place] [address] 3[address] Aug, [facility] [place] [facility] [address] [id number] [place] [address] 2646 Aug, [facility] [place] [facility] [address] [id number] [place] [address] 9992 Aug, [facility] [place] [facility] [address] [id number] [place] [address] 4444 Aug, [facility] [place] [facility] [address] [id number] [place] [address] 65[address] Aug, [facility] [place] [facility] [address] [id number] [place] [address]46 Aug, [facility] [place] [facility] [address] [id number] [place] [address] 3857 Aug, [facility] [place] [facility] [address] [id number] [place] [address] 7597 Jul, [facility] [place] [facility] [address] [id number] [place] [address]- 8261 Jul, [facility] [place] [facility] [address] [id number] [place] [address]- 4446 Jul, [facility] [place] [facility] [address] [id number] [place] [address]- 7132 Jul, [facility] [place] [facility] [address] [id number] [place] [address]- 0138 Jul, [facility] [place] [facility] [address] [id number] [place] [address] 6755 Jul, [facility] [place] [facility] [address] [id number] [place] [address]- 1659 Jul, [facility] [place] [facility] [address] [id number] [place] [address]- 6375 Jul, [facility] [place] [facility] [address] [id number] [place] [address] 3909 Jul, [facility] [place] [facility] [address] [id number] [place] [address]- 6392 Jun, [facility] [place] [facility] [address] [id number] [place] [address]- 0995 Jun, [facility] [place] [facility] [address] [id number] [place] [address]- 5842 Jun, [facility] [place] [facility] [address] [id number] [place] [address]- 9745 Jun, [facility] [place] [facility] [address] [id number] [place] [address]- 2208 Jun, [facility] [place] [facility] [address] [id number] [place] [address]- 9967 Jun, [facility] [place] [facility] [address] [id number] [place] [address]- 2451 Jun, [facility] [place] [facility] [address] [id number] [place] [address]- 3889 Jun, [facility] [place] [facility] [address] [id number] [place] [address]- 6988 Jun, [facility] [place] [facility] [address] [id number] [place] [address]- 7193 Jun, [facility] [place] [facility] [address] [id number] [place] [address]- 6045 Jun, [facility] [address] [id number] [place] [address]- 9821 Jun, [facility] [place] [facility] [address] [id number] [place] [address]- 2844 Jun, [facility] [address] [id number] [place] [address]- 4336 Jun, [facility] [place] [facility] [address] [id number] [place] [address]- 8363 Jun, [facility] [address] [id number] [place] [address]- 7811 Jun, [facility] [address] [id number] [place] [address] 1900 Jun, [facility] [address] [id number] [place] [address]- 1550 Jun, [facility] [address] [id number] [place] [address]- 5964 Jun, [facility] [address] [id number] [place] [address]- 3331 Jun, [facility] [address] [id number] [place] [address]- 0192 Jun, [facility] [place] [facility] [address] [id number] [place] [address]- 7280 Jun, [facility] [place] [facility] [address] [id number] [place] [address]- 9148 Jun, [facility] [place] [facility] [address] [id number] [place] [address]- 6769 Jun, [facility] [place] [facility] [address] [id number] [place] [address]- 7688 Jun, [facility] [place] [facility] [address] [id number] [place] [address] 1985 May, [facility] [place] [facility] [address] [id number] [place] [address]- 7295 May, [facility] [place] [facility] [address] [id number] [place] [address]- 0481 May, [facility] [place] [facility] [address] [id number] [place] [address]- 7972 May, [facility] [place] [facility] [address] [id number] [place] [address]- 9138 May, [facility] [place] [facility] [address] [id number] [place] [address]- 2711 May, [facility] [place] [facility] [address] [id number] [place] [address]- 9710 May, [facility] [place] [facility] [address] [id number] [place] [address]- 8279 May, [facility] [place] [facility] [address] [id number] [place] [address]- 5947 May, [facility] [place] [facility] [address] [id number] [place] [address]- 2464 May, [facility] [place] [facility] [address] [id number] [place] [address]- 7743 May, [facility] [place] [facility] [address] [id number] [place] [address]- 9310 May, [facility] [place] [facility] [address] [id number] [place] [address]- 0125 May, [facility] [place] [facility] [address] [id number] [place] [address]- 7419 May, [facility] [place] [facility] [address] [id number] [place] [address]- 9742 May, [facility] [place] [facility] [address] [id number] [place] [address] May, [facility] [place] [facility] [address] [id number], [place] [address]- 9051 May, [facility] [place] [facility] [address] [id number] [place] [address]- 0309 May, [facility] [place] [facility] [address] [id number] [place] [address]- 0854 Apr, [facility] [place] [facility] [address] [facility] [id number] [place] [address]- 9596 Apr, [facility] [place] [facility] [address] [id number] [place] [address]- 5084 Apr, [facility] [place] [facility] [address] [id number] [place] [address]- 9114 Apr, [facility] [place] [facility] [address] [facility] [id number] [place] [address]- 6471 Apr, [facility] [place] [facility] [address] [facility] [id number] [place] [address]- 2480 Apr, [facility] [place] [facility] [address] [facility] [id number] [place] [address]- 4241 Apr, [facility] [place] [facility] [address] [facility] [id number] [place] [address]- 7291 Apr, [facility] [place] [facility] [address] [facility] [id number] [place] [address]- 9597 Mar, [facility] [place] [facility] [address] [id number] [place] [address]- 4665 Mar, [facility] [place] [facility] [address] [id number], [place] [address]- 8992 Feb, [facility] [place] [facility] [address] [id number] [place] [address]- 0656 Feb, [facility] [place] [facility] [address] [facility] [id number] [place] [address]- 4892 Feb, [facility] [place] [facility] [address] [facility] [id number] [place] [address]- 6690 Feb, [facility] [place] [facility] [address] [id number] [place] [address]- 6375 12 Feb, 2013 [facility] [place] [facility] [address] [id number] [place] [address]- 3569 12 Feb, 2014 [facility] [place] [facility] [address] [id number] [place] [address]- 4836 Feb, [facility] [place] [facility] [address] [id number] [place] [address]- 1086 Feb, [facility] [place] [facility] [address] [id number] [place] [address]- 9207 Feb, [facility] [place] [facility] [address] [id number] [place] [address]- 3735 Feb, [facility] [place] [facility] [address] [id number] [place] [address]- 8009 Jan, [facility] [place] [facility] [address] [id number] [place] [address]- 6244 Jan, [facility] [place] [facility] [address] [id number] [place] [address]- 3856 Jan, [facility] [place] [facility] [address] [id number] [place] [address]- 2846 Jan, [facility] [place] [facility] [address] [id number] [place] [address]- 5694 Jan, [facility] [place] [facility] [address] [id number] [place] [address]- 4911 Jan, [facility] [place] [facility] [address] [id number] [place] [address]- 3192 Jan, [facility] [place] [facility] [address] [id number] [place] [address]- 2505 Jan, [facility] [place] [facility] [address] [id number] [place] [address]- 2761 Jan, [facility] [place] [facility] [address] [id number] [place] [address]- 5463 Jan, [facility] [place] [facility] [address] [id number] [place] [address]- 7262 Jan, [facility] [place] [facility] [address] [id number] [place] [address]- 6868 Jan, [facility] [place] [facility] [address] [id number] [place] [address]- 6189 Jan, [facility] [place] [facility] [address] [id number] [place] [address]- 8937 Dec, [facility] [place] [facility] [address] [id number] [place] [address]- 5681 Dec, [facility] [place] [facility] [address] [id number] [place] [address]- 3340 Dec, [facility] [place] [facility] [address] [id number] [place] [address]- 7496 Dec, [facility] [place] [facility] [address] [id number] [place] [address]- 9608 Dec, [facility] [place] [facility] [address] [id number] [place] [address]- 6143 Dec, [facility] [place] [facility] [address] [id number] [place] [address]- 1601 Dec, [facility] [place] [facility] [address] [id number] [place] [address]- 2861 Dec, [facility] [place] [facility] [address] [id number] [place] [address]- 9853 Dec, [facility] [place] [facility] [address] [id number] [place] [address]- 6030 Dec, [facility] [place] [facility] [address] [id number] [place] [address]- 9454 Dec, [facility] [place] [facility] [address] [id number] [place] [address]- 3039 Dec, [facility] [place] [facility] [address] [id number] [place] [address]- 9056 Dec, [facility] [place] [facility] [address] [id number] [place] [address]- 0793 Dec, [facility] [place] [facility] [address] [id number] [place] [address]- 8313 Nov, [facility] [place] [facility] [address] [id number] [place] [address]- 7035 Nov, [facility] [place] [facility] [address] [id number] [place] [address]- 2039 Nov, [facility] [place] [facility] [address] [id number] [place] [address]- 6568 Nov, [facility] [place] [facility] [address] [id number] [place] [address]- 9755 Nov, [facility] [place] [facility] [address] [id number] [place] [address]- 9204 Nov, [facility] [place] [facility] [address] [id number] [place] [address]- 8380 Nov, [facility] [place] [facility] [address] [id number] [place] [address]- 5745 Nov, [facility] [place] [facility] [address] [id number] [place] [address]- 4476 October, [facility] [place] [facility] [address] [id number] [place] [address]- 4412 October, [facility] [place] [facility] [address] [id number] [place] [address]- 9195 October, [facility] [place] [facility] [address] [id number] [place] [address]- 7841 October, [facility] [place] [facility] [address] [id number] [place] [address]- 7998 October, [facility] [place] [facility] [address] [id number] [place] [address]- 9164 October, [facility] [place] [facility] [address] [id number] [place] [address]- 2642 October, [facility] [place] [facility] [address] [id number] [place] [address]- 0698 October, [facility] [place] [facility] [address] [id number] [place] [address]- 4729 October, [facility] [place] [facility] [address] [id number] [place] [address]- 7170 October, [facility] [place] [facility] [address] [id number] [place] [address]- 8648 October, [facility] [place] [facility] [address] [id number] [place] [address]- 3961 October, [facility] [place] [facility] [address] [id number] [place] [address]- 8352 October, [facility] [place] [facility] [address] [id number] [place] [address]- 3026 October, [facility] [place] [facility] [address] [id number] [place] [address]- 9863 October, [facility] [place] [facility] [address] [id number] [place] [address]- 2028 October, [facility] [place] [facility] [address] [id number] [place] [address]- 6992 Sep, [facility] [place] [facility] [address] [id number] [place] [address]- 5376 Sep, [facility] [place] [facility] [address] [id number] [place] [address]- 9147 Sep, [facility] [place] [facility] [address] [id number] [place] [address]- 7071 Sep, [facility] [place] [facility] [address] [id number] [place] [address]- 6126 Sep, [facility] [place] [facility] [address] [id number] [place] [address]- 0240 Sep, [facility] [place] [facility] [address] [id number] [place] [address]- 2657 Sep, [facility] [place] [facility] [address] [id number] [place] [address]- 9087 Sep, [facility] [place] [facility] [address] [id number] [place] [address]- 5862 Sep, [facility] [place] [facility] [address] [id number] [place] [address]- 1061 Sep, [facility] [place] [facility] [address] [id number] [place] [address]- 1897 Sep, [facility] [place] [facility] [address] [id number] [place] [address]- 5935 Sep, [facility] [place] [facility] [address] [id number] [place] [address]- 9541 Sep, [facility] [place] [facility] [address] [id number] [place] [address]- 5297 Sep, [facility] [place] [facility] [address] [id number] [place] [address]- 2018 Sep, [facility] [place] [facility] [address] [id number] [place] [address]- 4167 Sep, [facility] [place] [facility] [address] [id number] [place] [address]- 3848 Sep, [facility] [place] [facility] [address] [id number] [place] [address]- 9418 Sep, [facility] [place] [facility] [address] [id number] [place] [address]- 6807 Sep, [facility] [place] [facility] [address] [id number] [place] [address]- 3066 Aug, [facility] [place] [facility] [address] [id number] [place] [address]- 1002 Aug, [facility] [place] [facility] [address] [id number] [place] [address]- 7177 Aug, [facility] [place] [facility] [address] [id number] [place] [address]- 8944 Aug, [facility] [place] [facility] [address] [id number] [place] [address]- 8691 Jul, [facility] [place] [facility] [address] [id number] [place] [address]- 4136 Jul, [facility] [place] [facility] [address] [id number] [place] [address]- 4189 Jul, [facility] [place] [facility] [address] [id number] [place] [address]- 1069 Jul, [facility] [place] [facility] [address] [facility] [id number] [place] [address]- 4468 Jul, [facility] [place] [facility] [address] [facility] [id number] [place] [address]- 3152 Jul, [facility] [place] [facility] [address] [id number] [place] [address]- 5604 Jul, [facility] [place] [facility] [address] [facility] [id number] [place] [address]- 3371 Jul, [facility] [place] [facility] [address] [facility] [id number] [place] [address]- 9872 Jul, [facility] [place] [facility] [address] [facility] [id number], [place] [address]- 4614 Jul, [facility] [place] [facility] [address] [facility] [id number] [place] [address]- 2480 Jul, [facility] [place] [facility] [address] [id number] [place] [address]- 6176 Jul, [facility] [place] [facility] [address] [facility] [id number] [place] [address]- 3310 Jun, [facility] [place] [facility] [address] [facility] [id number], [place] [address]- 4239 Jun, [facility] [address] [id number] [place] [address]- 9037 Jun, [facility] [place] [facility] [address] [id number] [place] [address]- 7009 Jun, [facility] [place] [facility] [address] [id number] [place] [address]- 1462 Jun, [facility] [place] [facility] [address] [id number] [place] [address]- 9882 Jun, [facility] [place] [facility] [address] [id number] [place] [address]- 9086 May, [facility] [place] [facility] [address] [id number] [place] [address]- 5918 May, [facility] [place] [facility] [address] [facility] [id number] [place] [address]- 3689 Apr, [facility] [place] [facility] [address] [id number] [place] [address]- 2733 Apr, [facility] [place] [facility] [address] [id number] [place] [address]- 2546 Apr, [facility] [place] [facility] [address] [facility] [id number] [place] [address]- 0115 Apr, [facility] [place] [facility] [address] [id number], [place] [address]- 0340 Apr, [facility] [place] [facility] [address] [id number], [place] [address]- 0036 18 Apr, 2013 [facility] [place] [facility] [address] [id number] [place] [address]- 5557 17 Apr, 2013 [facility] [place] [facility] [address] [id number] [place] [address]- 3154 15 Apr, 2013 [facility] [place] [facility] [address] [facility] [id number] [place] [address]- 3412 15 Apr, 2013 [facility] [place] [facility] [address] [id number] [place] [address]- 0388 15 Apr, 2013 [facility] [place] [facility] [address] [id number] [place] 9637 15 Apr, 2013 [facility] [place] [facility] [address] [id number] [place] [address] 13 Apr, 2013 [facility] [place] [facility] [address] [id number] [place] [address] Apr, [facility] [place] [facility] [address] [id number] [place] [address] 31 Mar, 2013 [facility] [place] [facility] [address] [id number] [place] [address] 31 Mar, 2013 [facility] [place] [facility] [address] [id number] [place] [address] Mar, [facility] [place] [facility] [address] [id number] [place] [address] 25 Mar, 2013 [facility] [place] [facility] [address] [id number] [place] [address] 17 Mar, 2013 [facility] [place] [facility] [address] [id number] [place] [address] 17 Mar, 2013 [facility] [place] [facility] [address] [id number] [place] [address] 14 Mar, 2013 [facility] [place] [facility] [address] [id number] [place] [address] 14 Mar, 2013 [facility] [place] [facility] [address] [id number] [place] [address] Mar, [facility] [place] [facility] [address] [id number] [place] [address] 95[address] 11 Mar, 2013 [facility] [place] [facility] [address] [id number] [place] [address] 02 Mar, 2013 [facility] [place] [facility] [address] [id number] [place] [address] 30 Feb, 2013 [facility] [place] [facility] [address] [id number] [place] [address] 28 Feb, 2013 [facility] [place] [facility] [address] [id number] [place] [address] 27 Feb, 2013 [facility] [place] [facility] [address] [id number] [place] [address] 27 Feb, 2013 [facility] [place] [facility] [address] [id number] [place] [address] 6[address] 20 Feb, 2013 [facility] [place] [facility] [address] [id number] [place] [address] 10 Feb, 2013 [facility] [place] [facility] [address] [id number] [place] [address] Jan, [facility] [place] [facility] [address] [id number] [place] [address] Jan, [facility] [place] [facility] [address] [id number] [place] [address] Dec, [facility] [place] [facility] [address] [id number] [place] [address]38 Dec, [facility] [place] [facility] [address] [id number] [place] [address] 69[address] Dec, [facility] [place] [facility] [address] [id number] [place] [address] 8984 Dec, [facility] [place] [facility] [address] [id number], [place] [address] Nov, [facility] [place] [facility] [address] [id number] [place] [address]757 Nov, [facility] [place] [facility] [address] [id number] [place] [address] 7988 Nov, [facility] [place] [facility] [address] [id number] [place] [address] 1536 October, [facility] [place] [facility] [address] [id number] [place] [address] October, [facility] [address] [id number] [place] [address] October, [facility] [address] [id number] [place] [address] 8180 October, [facility] [address] [id number] [place] [address] 8210 October, [facility] [address] [id number] [place] [address] Sep, [facility] [address] [id number] [place] [address] Sep, [facility] [address] [id number] [place] [address] Aug, [facility] [address] [id number] [place] [address] Aug, [facility] [address] [id number] [place] [address] 2424 Aug, [facility] [address] [id number] [place] [address] 1597 Aug, [facility] [address] [id number] [place] [address] 130[address] Aug, [facility] [address] [id number] [place] [address] Jul, [facility] [place] [facility] [address] [id number] [place] [address]807 Jul, [facility] [place] [facility] [address] [id number] [place] [address] 4294 Jul, [facility] [place] [facility] [address] [id number] [place] [address] 2546 Jul, [facility] [place] [facility] [address] [id number] [place] [address]- 6633 Jun, [facility] [address] [id number] [place] [address]- 2514 Jun, [facility] [place] [facility] [address] [id number] [place] [address]- 7274 Jun, [facility] [place] [facility] [address] [id number] [place] [address]- 6176 Jun, [facility] [place] [facility] [address] [id number] [place] [address] 3418 Jun, [facility] [address] [id number] [place] [address]- 4889 Jun, [facility] [place] [facility] [address] [id number] [place] [address]- 2787 Jun, [facility] [place] [facility] [address] [id number] [place] [address]- 0159 Jun, [facility] [address] [id number] [place] [address]- 5287 Jun, [facility] [place] [facility] [address] [id number] [place] [address]- 6747 Jun, [facility] [place] [facility] [address] [id number], [place] [address] Jun, [facility] [place] [facility] [address] [id number], [place] [address] May, [facility] [place] [facility] [address] [id number], [place] [address] May, [facility] [place] [facility] [address] [id number] [place] [address] 8936 Apr, [facility] [place] [facility] [address] [id number] [place] [address] 1446 Apr, [facility] [place] [facility] [address] [id number], [place] [address] 31 Mar, 2012 [facility] [place] [facility] [address] [id number], [place] [address] Mar, [facility] [place] [facility] [address] [id number] [place] [address]- 5574 Mar, [facility] [place] [facility] [address] [id number] [place] [address]- 1719 Mar, [facility] [place] [facility] [address] [id number] [place] [address]- 8251 Mar, [facility] [place] [facility] [address] [id number] [place] [address]- 8558 Mar, [facility] [place] [facility] [address] [id number] [place] [address]- 1857 Mar, [facility] [place] [facility] [address] [id number] [place] [address]- [address]404 Mar, [facility] [place] [facility] [address] [facility] [id number] [place] [address]- 5114 Mar, [facility] [place] [facility] [address] [facility] [id number] [place] [address] 8289 Feb, [facility] [place] [facility] [address] [facility] [id number] [place] [address]- 4547 Jan, [facility] [place] [facility] [address] [facility] [id number] [place] [address] Jan, [facility] [place] [facility] [address] [facility] [id number], [place] [address] Dec, [facility] [place] [facility] [address] [facility] [id number] [place] [address] Dec, [facility] [place] [facility] [address] [id number] [place] [address] Dec, [facility] [place] [facility] [address] [facility] [id number] [place] [address] Nov, [facility] [place] [facility] [address] [facility] [id number] [place] [address] Nov, [facility] [place] [facility] [address] [id number] [place] [address] Nov, [facility] [place] [facility] [address] [id number] [place] [address] Nov, [facility] [place] [facility] [address] [id number] [place] [address] October, [facility] [place] [facility] [address] [id number] [place] [address] October, [facility] [place] [facility] [address] [id number] [place] [address] Sep, [facility] [place] [facility] [address] [id number] [place] [address] Sep, [facility] [place] [facility] [address] [id number] [place] [address] Aug, [facility] [place] [facility] [address] [id number] [place] [address] Jul, [facility] [place] [facility] [address] [id number] [place] [address] Jul, [facility] [place] [facility] [address] [id number] [place] [address] Jul, [facility] [place] [facility] [address] [id number] [place] [address] Jul, [facility] [place] [facility] [address] [id number] [place] [address] Jun, [facility] [place] [facility] [address] [id number] [place] [address] May, [facility] [place] [facility] [address] [id number] [place] [address] May, [facility] [place] [facility] [address] [id number] [place] [address] May, [facility] [place] [facility] [address] [id number], [place] [address] 13 May, 2011 [facility] [place] [facility] [address] [id number] [place] [address] 08 May, 2011 [facility] [place] [facility] [address] [id number] [place] [address] 14 Apr, 2011 [facility] [place] [facility] [address] [id number] [place] [address] 14 Apr, 2011 [facility] [place] [facility] [address] [id number] [place] [address] 14 Apr, 2011 [facility] [place] [facility] [address] [id number] [place] [address] 07 Apr, 2011 [facility] [place] [facility] [address] [id number] [place] [address] 02 Apr, 2011 [facility] [place] [facility] [address] [id number] [place] [address] 26 Mar, 2011 [facility] [place] [facility] [address] [id number], [place] [address] 25 Mar, 2011 [facility] [place] [facility] [address] [id number], [place] [address] 14 Mar, 2011 [facility] [place] [facility] [address] [id number], [place] [address] 14 Mar, 2011 [facility] [place] [facility] [address] [id number], [place] [address] 13 Mar, 2011 [facility] [place] [facility] [address] [id number], [place] [address] 11 Mar, 2011 [facility] [place] [facility] [address] [id number] [place] [address] 11 Mar, 2011 [facility] [place] [facility] [address] [id number], [place] [address] 11 Mar, 2011 [facility] [place] [facility] [address] [id number], [place] [address] 14 Feb, 2011 [facility] [place] [facility] [address] [facility] [id number] [place] [address] May, [facility] [address] [facility] [id number], [place] [address] May, [facility] [address] [id number], [place] [address] May, [facility] [address] [facility] [id number], [place] [address] Apr, [facility] [address] [facility] [id number], [place] [address] Mar, IMMUNIZATIONS No Known Immunizations SOCIAL HISTORY Never Assessed REASON FOR VISIT Refill request PLAN OF CARE VITAL SIGNS MEDICATIONS Medication Instructions Dosage Frequency Start Date End Date Duration Status Lisinopril 40 mg TAKE ONE TABLET BY MOUTH ONCE DAILY 30 Active RESULTS No Results PROCEDURES [...]
--- OUTSIDE RECORDS SUMMARY | 2018-08-19 10:00 | XMS REPORT ---
Author Author CURTIS GLENN Organization [facility] Address [address] [place] [address] Care Team Providers Care Cupboard Builder Name Role Phone CURTIS GLENN Unavailable PROBLEMS Type Condition ICD9-CM Code [id number] Code Onset Dates Condition Status SNOMED Code Problem Posttraumatic stress disorder F43.10 Active 04703012 Problem Generalized anxiety disorder F41.1 Active 11831330 Problem Panic disorder F41.0 Active 640838064 Problem Nausea R11.0 Active 728935428 Problem Mild intermittent asthma without complication J45.20 Active 822338516 Problem Hot flashes R23.2 Active 192217593 Problem Vitamin D deficiency E55.9 Active 51707556 Problem Mixed hyperlipidemia E78.2 Active 306204455 Problem Low back pain with sciatica, sciatica laterality unspecified, unspecified back pain laterality, unspecified chronicity M54.40 Active 213968082 Problem Bipolar disorder, current episode mixed, moderate F31.62 Active 082611507 Problem Multiple fractures T07.XXXA Active 288004417 Problem Acute right-sided low back pain with right-sided sciatica M54.41 Active 94433482 Problem Essential hypertension I10 Active 06781787 Problem Anxiety F41.9 Active 97645306 Problem Gastroesophageal reflux disease, esophagitis presence not specified K21.9 Active 039541824 Problem Bipolar disorder F31.9 Active 58789177 Problem Depression F32.9 Active 27581023 Problem History of IBS Z87.19 Active 18774279965782 Problem Primary insomnia F51.01 Active 212731474 Problem Genital herpes simplex, unspecified site A60.00 Active 59339176 Problem Hidradenitis suppurativa L73.2 Active 75787272 Problem Tobacco use Z72.0 Active 197489128 ALLERGIES No Information ENCOUNTERS Encounter Location Date Diagnosis [facility] [address] [facility] [id number] [address] May, [facility] [address], [place] [address] Apr, [facility] [id number] [place] [address] 83068- 9247 Apr, Genital herpes simplex, unspecified site A60.00 [facility] [address], [place] [address] 6106 Apr, [facility] [id number] [place] [address] 45755- 3271 Apr, [facility] [id number] [address] 6104 Mar, [facility] [id number] [place] [address] 31093- 7737 Mar, Genital herpes simplex, unspecified site A60.00 [facility] [id number] [place] [address] 50831- 1881 Mar, [facility] [address], [place] [address] 28[address] Mar, [facility] [address] [address] 3135 Mar, Panic disorder F41.0 [facility] [address], [place] [address] 0995 Mar, [facility] [address], [place] [address] 8262 Mar, Genital herpes simplex, unspecified site A60.00 and Hidradenitis L73.2 [facility] [address], [place] [address] 4716 Feb, Panic disorder F41.0 ; Bipolar disorder, current episode mixed, moderate F31.62 and Generalized anxiety disorder F41.1 [facility] [address], [place] [address] 1801 Feb, Panic disorder F41.0 [facility] [address], [place] [address] 1325 Jan, Genital herpes simplex, unspecified site A60.00 [place] [id number] [place] [address] 54768- 4830 Jan, Panic disorder F41.0 [place] [id number] [place] [address] 43878- 1234 Dec, Diaphoresis R61 and Excessive thirst R63.1 [place] [id number] [place] [address] 24211- 0257 Dec, Panic disorder F41.0 ; Bipolar disorder, current episode mixed, moderate F31.62 and Generalized anxiety disorder F41.1 [place] [address], [place] [address] 2698 Dec, Panic disorder F41.0 [facility] [id number] [place] [address] 68887- 6990 Nov, Panic disorder F41.0 [place] [id number] [place] [address] 94910- 9825 Nov, Panic disorder F41.0 ; Generalized anxiety disorder F41.1 and Bipolar disorder, current episode mixed, moderate F31.62 [place] [address], [place] [address]- 2754 Nov, Panic disorder F41.0 [place] [id number] [place] [address] 65511- 4062 Nov, Panic disorder F41.0 [place] [id number] [place] [address] 71661- 1617 October, Panic disorder F41.0 [place] [id number] [place] [address] 27466- 6490 October, Panic disorder F41.0 ; Generalized anxiety disorder F41.1 and Bipolar disorder, current episode mixed, moderate F31.62 [place] [id number] [place] [address] 47343- 1414 October, Panic disorder F41.0 [place] [address] 49807- 6203 Sep, Hospital discharge follow-up Z09 ; Concussion without loss of consciousness, initial encounter S06.0X0A and Nausea R11.[address] 92455- 1284 Sep, [place] [address] 93425- 1306 Sep, Panic disorder F41.[address] 74898- 3414 Sep, [place] [id number] [place] [address] 07321- 6483 Sep, Well woman exam with routine gynecological exam Z01.419 ; Multiple fractures T07.XXXA ; Hot flashes R23.2 ; Essential hypertension I10 ; Mixed hyperlipidemia E78.2 ; Genital herpes simplex, unspecified site A60.00 ; Alkaline phosphatase elevation R74.8 ; Dysuria R30.0 ; Vitamin D deficiency E55.9 ; Tobacco use Z72.0 ; High risk sexual behavior Z72.51 and Encounter for immunization Z23 [place] [id number] [place] [address] 09559- 9133 Aug, Panic disorder F41.0 ; Generalized anxiety disorder F41.1 and Bipolar disorder, current episode mixed, moderate F31.62 [place] [id number] [place] [address] 56605- 7479 Aug, [address] 78076- 7214 Jul, Panic disorder F41.0 ; Generalized anxiety disorder F41.1 and Bipolar disorder, current episode mixed, moderate F31.62 [place] [id number] [place] [address] 79284- 8521 Jul, [facility] [id number] [place] [address] 69762- 9639 Jul, [facility] [id number] [place] [address] 30986- 2351 Jul, Effusion, right knee M25.461 ; Acute pain of right knee M25.561 and Acute pain of left knee M25.562 [facility] [id number] [place] [address] 56538- 0718 Jun, Bipolar disorder, current episode mixed, moderate F31.62 ; Generalized anxiety disorder F41.1 and Panic disorder F41.0 [place] [id number] [place] [address] 48844- 5833 May, Bipolar disorder, current episode mixed, moderate F31.62 ; Generalized anxiety disorder F41.1 and Panic disorder F41.0 [place] [id number] [place] [address] 43719- 7120 May, Bipolar disorder, current episode mixed, moderate F31.62 [facility] [id number] [place] [address] 59931- 5080 May, Bipolar disorder, current episode mixed, moderate F31.62 [place] [id number] [place] [address] 04279- 5034 Apr, Bipolar disorder, current episode mixed, moderate F31.62 ; Generalized anxiety disorder F41.1 and Panic disorder F41.0 [facility] [id number] [place] [address] 62572- 0112 Mar, [facility] [id number] [place] [address] 79570- 4901 Mar, Bipolar disorder, current episode mixed, moderate F31.62 ; Generalized anxiety disorder F41.1 and Panic disorder F41.0 [facility] [address] [place] [address] 84495- 8073 Feb, [facility] [id number] [place] [address] 74840- 4805 22 Feb, 2017 Posttraumatic stress disorder F43.10 [facility] [address] 49656- 8451 20 Feb, 2017 Gastroesophageal reflux disease, esophagitis presence not specified K21.9 [facility] [address] 25214- 7964 13 Feb, 2017 [facility] [address] 02940- 7468 06 Feb, 2017 Knee pain, right anterior M25.561 [place] [address] 41445- 1838 05 Feb, 2017 HSV (herpes simplex virus) infection B00.9 [facility] [address] 42266- 5233 Feb, [facility] [address] 23653- 3666 Jan, [facility] [address] 58221- 1130 Jan, Posttraumatic stress disorder F43.10 [place] [address] 84433- 1632 Jan, Foot pain, left M79.672 [place] [id number] [place] [address] 28173- 0213 Jan, [facility] [address] 85611- 6522 Jan, Lumbar radiculopathy, acute M54.16 ; Muscle spasm of back M62.830 and Right hip pain M25.551 [place] [id number] [place] [address] 06494- 1896 Jan, Lumbar radiculopathy, acute M54.16 [place] [address] 09718- 6436 Jan, [facility] [id number] [place] [address] 86817- 2745 Jan, [facility] [id number] [place] [address] 08124- 7678 Dec, Lumbar radiculopathy, acute M54.16 ; Acute renal insufficiency N28.9 and Muscle spasm of back M62.830 [facility] [id number] [place] [address] 76850- 9199 Dec, [facility] [id number] [place] [address] 07287- 2357 Dec, [facility] [id number] [place] [address] 70059- 7161 Dec, [facility] [id number] [place] [address] 01086 -7176 Dec, Low back pain with sciatica, sciatica laterality unspecified, unspecified back pain laterality, unspecified chronicity M54.40 and Acute right-sided low back pain with right-sided sciatica M54.41 [place] [id number] [place] [address] 61896- 7404 Dec, Posttraumatic stress disorder F43.10 [place] [id number] [place] [address] 22222- 8053 Dec, [facility] [id number] [place] [address] 93744- 4570 Dec, Pain in right thigh M79.651 and Acute right-sided low back pain without sciatica M54.5 [facility] [id number] [place] [address] 31473- 4182 Dec, Posttraumatic stress disorder F43.10 and Major depressive disorder, recurrent episode with anxious distress F33.9 [facility] [address] [place] [address] 23165 -7548 Dec, [facility] [id number] [place] [address] 52559- 9890 Nov, [facility] [address], [place] [address]- 3875 October, [facility] [address] [place] [address] 050228- 2244 October, [facility] [address], [place] [address]- 0289 October, Knee pain, right anterior M25.561 [facility] [address], [place] [address]- 9546 October, Knee pain, right anterior M25.561 [facility] [id number] [place] [address] 53176- 9441 October, [facility] [id number] [place] [address] 81434- 7104 October, [facility] [address] [place] [address] 59277- 9646 October, [facility] [address], [place] [address] -0500 Sep, [facility] [address], [place] [address]- 9024 Sep, [facility] [address], [place] [address]- 2116 Sep, Essential hypertension I10 [facility] [address], [place] [address]- 2435 Sep, Essential hypertension I10 [facility] [address], [place] [address]- 6778 Sep, [facility] [id number] [place] [address] 48598- 4588 Sep, Posttraumatic stress disorder F43.10 and Major depressive disorder, recurrent episode with anxious distress F33.9 [facility] [address], [place] [address]- 4877 Sep, Multiple fractures T14.8 ; Alkaline phosphatase elevation R74.8 and Vitamin D deficiency E55.9 [place] [address] 84848- 0962 Sep, [place] [address] 99188- 5593 Sep, Elevated serum creatinine R79.89 ; Fracture of foot, left, closed, initial encounter S92.902A and Alkaline phosphatase elevation R74.8 [place] [address] 96089- 0574 Sep, Elevated serum creatinine R79.89 and Essential hypertension I10 [place] [address] 12832- 5350 Sep, [place] [address] 69730- 7828 Aug, Gastroesophageal reflux disease, esophagitis presence not specified K21.9 [place] [address] 52646- 4449 Aug, Essential hypertension I10 ; Fracture of foot, left, closed , initial encounter S92.902A and Alkaline phosphatase elevation R74.8 [place] [id number] [place] [address] 84014- 9982 Jul, Genital herpes simplex, unspecified site A60.00 [place] [address] 67678- 1676 Jul, Essential hypertension I10 [place] [address] 55879- 5324 Jun, Cough R05 and Wheezing R06.2 [place] [address] 14089- 0534 Jun, Essential hypertension I10 [place] [address] 17900- 7892 May, Essential hypertension I10 [facility] [address] [place] [address] 91901- 3192 14 May, 2016 Posttraumatic stress disorder F43.10 and Major depressive disorder, recurrent episode with anxious distress F33.9 [facility] [id number] [place] [address] 40490- 5280 Apr, [facility] [id number] [place] [address] 26297- 4894 Apr, [facility] [id number] [place] [address] 42631- 0517 Apr, [facility] [address] 62637- 1511 Mar, [facility] [id number] [place] [address] 85293- 6304 Feb, [facility] [id number] [place] [address] 48167- 7105 Jan, [facility] [id number] [place] [address] 08497- 0045 Jan, Essential hypertension I10 ; Mixed hyperlipidemia [...] foot S92.302A [facility] [address] [place] [address] 14845 -7144 Jan, Localized edema R60.0 [facility] [id number] [place] [address] 25009- 7458 Dec, [facility] [id number] [place] [address] 92487- 3318 Dec, [facility] [id number] [place] [address] 92323- 1050 Dec, [facility] [address] [place] [address] 91168 -7761 Dec, Cough R05 ; Tobacco dependence F17.200 and Costochondritis , acute M94.0 [facility] [address] [place] [address] 53431- 6101 Dec, Major depression, recurrent F33.9 ; Bipolar disorder, unspecified F31.9 and Posttraumatic stress disorder F43.10 [facility] [address] [place] [address] 10526- 6799 Nov, [facility] [id number] [place] [address] 16715- 6784 Nov, [facility] [id number] [place] [address] 01595- 6611 October, [facility] [id number] [place] [address] 43513 -4732 October, Acute upper respiratory infection, unspecified J06.9 [facility] [id number] [place] [address] 43988- 8957 October, [facility] [id number] [place] [address] 96877- 5602 Sep, Bipolar affective disorder, remission status unspecified F31.9 and Post-traumatic stress disorder F43.10 [facility] [address] [place] [address] 07979- 8423 Sep, Bipolar disorder, unspecified F31.9 ; Posttraumatic stress disorder F43.10 and Major depression, recurrent F33.9 [facility] [id number] [place] [address] 13030- 8026 16 Aug, 2015 Edema R60.9 ; Fatigue R53.83 and Polydipsia R63.1 [facility] [address] [place] [address] 82364- 1007 Aug, [facility] [id number] [address] 0194 Aug, [facility] [address], [place] [address]- 5606 Jul, [facility] [address] [place] [address] 39214- 8878 Jul, [facility] [address] [place] [address] 74917- 9905 Jun, [facility] [id number] [place] [address] 38757- 8476 Jun, [place] [id number] [place] [address] 345407- 3206 Jun, [facility] [address] [place] [address] 05134- 7782 Jun, [place] [id number] [place] [address] 91470- 9695 May, Mixed hyperlipidemia E78.[address] [place] [address] 29224- 3599 May, Well woman exam Z01.419 ; History of herpes simplex infection Z86.19 ; Papanicolaou smear Z12.4 ; History of depression Z86.59 ; History of anxiety Z86.59 ; Lipoma of other specified sites D17.79 ; Hidradenitis suppurativa L73.2 ; Routine screening for STI (sexually transmitted infection) Z11.3 and Tobacco use Z72.0 [place] [address] [place] [address] 25455- 6270 May, Hematuria R31.9 ; Essential hypertension I10 ; Pure hypercholesterolemia E78.0 and Hidradenitis L73.2 [place] [address] [place] [address] 42729- 1825 May, Upper respiratory symptom R09.89 and Allergic rhinitis J30.9 [place] [id number] [place] [address] 40562- 2674 May, [facility] [id number] [place] [address] 61452- 5475 May, [facility] [id number] [place] [address] 192824- 1685 May, Bipolar disorder, unspecified F31.9 ; Posttraumatic stress disorder F43.10 and Major depression, recurrent F33.9 [facility] [id number] [place] [address] 12054- 9743 May, [facility] [id number] [place] [address] 579884- 8608 May, [facility] [id number] [place] [address] 197505- 6317 Apr, [facility] [id number] [place] [address] 18548- 1513 Apr, [facility] [id number] [place] [address] 96959- 9455 Mar, [facility] [id number] [place] [address] 81622- 1467 Mar, [facility] [id number] [place] [address] 10376- 6099 Mar, [facility] [id number] [place] [address] 26880- 9182 18 Feb, 2015 Major depressive disorder, recurrent episode, moderate 296.32 and Post traumatic stress disorder (PTSD) 309.81 [facility] [address] [place] [address] 34598- 3734 10 Feb, 2015 [facility] [id number] [place] [address] 97884- 5045 08 Feb, 2015 [facility] [address] [place] [address] 75709- 1955 Jan, Cough 786.2 [facility] [id number] [place] [address] 76679- 3446 Jan, Depression, major, recurrent, moderate 296.32 and Post traumatic stress disorder (PTSD) 309.81 [facility] [address] 3661 Jan, [facility] [address] [place] [address] 074945- 9625 Dec, [facility] [id number] [place] [address] 29476- 7872 Dec, Generalized anxiety disorder 300.02 and Depression, major, recurrent, moderate 296.32 [facility] [id number] [place] [address] [phone] Dec, [facility] [id number] [place] [address] [phone] Dec, High risk medication use V58.69 [facility] [id number] [place] [address] [phone] Dec, High risk medication use V58.69 [facility] [id number] [address] Dec, [facility] [id number] [place] [address] [phone] Nov, Generalized anxiety disorder 300.02 and Major depressive disorder, recurrent episode, moderate 296.32 [facility] [id number] [id number] Nov, Dental examination V72.2 [facility] [id number] [place] [address] [id number] Nov, Dental examination V72.2 [facility] [id number], [place] [address]46 Nov, [facility] [id number] [place] [address] [id number] Nov, Dental examination V72.2 [facility] [id number] [place] [address] [id number] Nov, Dental examination V72.2 [facility] [address] [id number], [place] [address] October, Major depressive disorder, recurrent episode, moderate 296.32 and Generalized anxiety disorder 300.02 [facility] [address] [facility] [id number], [place] [address] 2546 October, [facility] [address] [facility] [id number] [place] [address] [phone] October, [facility] [address] [facility] [id number], [place] [address] October, [facility] [id number] [place] [address] [phone] Sep, [facility] [id number], [place] [address] Sep, [facility] [id number] [place] [address] [phone] Aug, [facility] [address] [id number] [address] Aug, [facility] [id number], [place] [address] Aug, [facility] [id number], [place] [address] 76[address] Aug, [facility] [address] [id number], [place] [address] Aug, [facility] [address] [facility] [id number], [place] [address] Aug, [facility] [address] [id number], [place] [address] Aug, [facility] [address] [id number], [place] [address]46 16 Jul, 2014 [facility] [id number], [place] [address] 46[address] Jul, 2014 [facility] [place] [facility] [address] [id number] [place] [address] 9096 Jul, 2014 [facility] [place] [facility] [address] [id number] [place] [address]- 1546 Jul, 2014 [facility] [place] [facility] [address] [id number] [place] [address]- 5096 Jul, 2014 [facility] [place] [facility] [address] [id number] [place] [address]- 7587 Jul, 2014 [facility] [place] [facility] [address] [id number] [place] [address]- 3408 Jul, 2014 [facility] [place] [facility] [address] [facility] [id number] [place] [address]- 9489 Jul, 2014 [facility] [place] [facility] [address] [facility] [id number] [place] [address]- 1661 Jul, [facility] [place] [facility] [address] [facility] [id number] [place] [address]- 0617 Jun, [facility] [place] [facility] [address] [id number] [place] [address]- 2417 Jun, [facility] [place] [facility] [address] [facility] [id number] [place] [address]- 0899 Jun, [facility] [place] [facility] [address] [id number] [place] [address]- 4952 Jun, [facility] [place] [facility] [address] [id number] [place] [address]- 9803 Jun, [facility] [place] [facility] [address] [id number] [place] [address]- 4341 Jun, [facility] [place] [facility] [address] [facility] [id number] [place] [address]- 5075 Jun, [facility] [place] [facility] [address] [id number] [place] [address]- 0334 Jun, [facility] [place] [facility] [address] [id number] [place] [address]- 6435 Jun, [facility] [place] [facility] [address] [id number] [place] [address]- 8757 Jun, [facility] [place] [facility] [address] [id number] [place] [address]- 4882 Jun, [facility] [place] [facility] [address] [id number] [place] [address]- 1287 Jun, [facility] [place] [facility] [address] [id number] [place] [address]- 2587 Jun, [facility] [place] [facility] [address] [id number] [place] [address]- 4849 Jun, [facility] [place] [facility] [address] [id number] [place] [address]- 9264 Jun, [facility] [place] [facility] [address] [id number] [place] [address]- 9864 Jun, [facility] [place] [facility] [address] [id number] [place] [address]- 7462 Jun, [facility] [place] [facility] [address] [id number] [place] [address]- 7346 Jun, [facility] [place] [facility] [address] [id number] [place] [address]- 4544 Jun, [facility] [place] [facility] [address] [id number], [place] [address] 1047 Jun, [facility] [place] [facility] [address] [id number] [place] [address]- 4582 Jun, [facility] [place] [facility] [address] [id number] [place] [address]- 6470 Jun, [facility] [place] [facility] [address] [id number] [place] [address] Jun, [facility] [place] [facility] [address] [id number], [place] [address]- 1599 Jun, [facility] [place] [facility] [address] [id number] [place] [address]- 1840 Jun, [facility] [place] [facility] [address] [id number] [place] [address]193 May, [facility] [place] [facility] [address] [id number] [place] [address]- 2576 May, [facility] [place] [facility] [address] [id number] [place] [address]- 6402 May, [facility] [place] [facility] [address] [id number] [place] [address]- 9810 May, [facility] [place] [facility] [address] [id number] [place] [address]- 1559 May, [facility] [place] [facility] [address] [id number] [place] [address]- 7652 May, [facility] [place] [facility] [address] [id number] [place] [address]- 0401 May, [facility] [place] [facility] [address] [id number] [place] [address]- 3033 May, [facility] [place] [facility] [address] [id number] [place] [address]- 2449 May, [facility] [place] [facility] [address] [id number] [place] [address]- 2805 May, [facility] [place] [facility] [address] [id number] [place] [address]- 1406 May, [facility] [place] [facility] [address] [id number] [place] [address]- 7276 May, [facility] [place] [facility] [address] [id number] [place] [address]- 2208 May, [facility] [place] [facility] [address] [id number] [place] [address]- 1561 May, [facility] [place] [facility] [address] [id number] [place] [address]- 1724 08 May, 2014 [facility] [place] [facility] [address] [id number] [place] [address]- 4886 May, [facility] [place] [facility] [address] [id number] [place] 2319 May, [facility] [place] [facility] [address] [id number] [place] [address]- 8088 May, [facility] [place] [facility] [address] [id number] [place] [address]- 9163 Apr, [facility] [place] [facility] [address] [id number] [place] [address]- 2308 Apr, [facility] [place] [facility] [address] [id number] [place] [address]- 2915 Apr, [facility] [place] [facility] [address] [id number] [place] [address]- 5622 Apr, [facility] [place] [facility] [address] [id number] [place] [address]- 6780 Apr, [facility] [place] [facility] [address] [id number] [place] [address]- 8631 Apr, [facility] [place] [facility] [address] [id number] [place] [address]- 7082 Apr, [facility] [place] [facility] [address] [id number] [place] [address]- 6808 Apr, [facility] [place] [facility] [address] [id number] [place] [address]- 3044 Mar, [facility] [place] [facility] [address] [id number] [place] [address]- 4269 Mar, [facility] [place] [facility] [address] [id number] [place] [address]- 3034 Feb, [facility] [place] [facility] [address] [id number] [place] [address]- 7991 Feb, [facility] [place] [facility] [address] [id number] [place] [address]- 4142 Feb, 2013 [facility] [place] [facility] [address] [id number] [place] [address]- 9140 Feb, [facility] [place] [facility] [address] [id number] [place] [address]- 9110 Feb, [facility] [place] [facility] [address] [id number] [place] [address]- 4320 Feb, [facility] [place] [facility] [address] [id number] [place] [address]- 7009 Feb, [facility] [place] [facility] [address] [id number] [place] [address]- 2219 Feb, [facility] [place] [facility] [address] [id number] [place] [address]- 7238 Feb, [facility] [place] [facility] [address] [id number] [place] [address]- 9895 Feb, [facility] [place] [facility] [address] [id number] [place] [address]- 4577 Jan, [facility] [place] [facility] [address] [id number] [place] [address]- 9564 Jan, [facility] [place] [facility] [address] [id number] [place] [address]- 1458 Jan, [facility] [place] [facility] [address] [id number] [place] [address]- 1140 Jan, [facility] [place] [facility] [address] [id number] [place] [address]- 9812 Jan, [facility] [place] [facility] [address] [id number] [place] [address]- 8513 Jan, [facility] [place] [facility] [address] [id number] [place] [address]- 0987 Jan, [facility] [place] [facility] [address] [id number] [place] [address]- 0452 Jan, [facility] [place] [facility] [address] [id number] [place] [address]- 5202 Jan, [facility] [place] [facility] [address] [id number] [place] [address]- 3096 Jan, [facility] [place] [facility] [address] [id number] [place] [address]- 8558 Jan, [facility] [place] [facility] [address] [id number] [place] [address]- 5576 Jan, [facility] [place] [facility] [address] [id number] [place] [address]- 7278 Jan, [facility] [place] [facility] [address] [id number] [place] [address]- 3481 Dec, [facility] [place] [facility] [address] [id number] [place] [address]- 7803 Dec, [facility] [place] [facility] [address] [id number] [place] [address]- 6195 Dec, [facility] [place] [facility] [address] [id number] [place] [address]- 1042 Dec, [facility] [place] [facility] [address] [id number] [place] [address]- 0852 Dec, [facility] [place] [facility] [address] [id number] [place] [address]- 2966 Dec, [facility] [place] [facility] [address] [id number] [place] [address]- 7841 Dec, [facility] [place] [facility] [address] [id number] [place] [address]- 1340 Dec, [facility] [place] [facility] [address] [id number] [place] [address]- 7171 Dec, [facility] [place] [facility] [address] [id number] [place] [address]- 3998 Dec, [facility] [place] [facility] [address] [id number] [place] [address]- 6788 Dec, [facility] [place] [facility] [address] [id number] [place] [address]- 8756 Dec, [facility] [place] [facility] [address] [id number] [place] [address]- 2258 Dec, [facility] [place] [facility] [address] [id number] [place] [address]- 8250 Dec, [facility] [place] [facility] [address] [id number] [place] [address]- 8793 Nov, [facility] [place] [facility] [address] [id number] [place] [address]- 8112 Nov, [facility] [place] [facility] [address] [id number] [place] [address]- 3630 Nov, [facility] [place] [facility] [address] [id number] [place] [address]- 8516 Nov, [facility] [place] [facility] [address] [id number] [place] [address]- 7962 Nov, [facility] [place] [facility] [address] [id number] [place] [address]- 4425 Nov, [facility] [place] [facility] [address] [id number] [place] [address]- 8803 Nov, [facility] [place] [facility] [address] [id number] [place] [address]- 4752 Nov, [facility] [place] [facility] [address] [id number] [place] [address]- 7130 October, [facility] [place] [facility] [address] [id number] [place] [address]- 1849 October, [facility] [place] [facility] [address] [id number] [place] [address]- 2761 October, [facility] [place] [facility] [address] [id number] [place] [address]- 2582 October, [facility] [place] [facility] [address] [id number] [place] [address]- 8891 October, [facility] [place] [facility] [address] [id number] [place] [address]- 5485 October, [facility] [place] [facility] [address] [id number] [place] [address]- 6325 October, [facility] [place] [facility] [address] [id number] [place] [address]- 6923 October, [facility] [place] [facility] [address] [id number] [place] [address]- 7790 October, [facility] [place] [facility] [address] [id number] [place] [address]- 1299 October, [facility] [place] [facility] [address] [id number] [place] [address]- 4669 October, [facility] [place] [facility] [address] [id number] [place] [address]- 0655 October, [facility] [place] [facility] [address] [id number] [place] [address]- 2425 October, [facility] [place] [facility] [address] [id number] [place] [address]- 8916 October, [facility] [place] [facility] [address] [id number] [place] [address]- 6450 October, [facility] [place] [facility] [address] [id number] [place] [address]- 6078 October, [facility] [place] [facility] [address] [id number] [place] [address]- 3494 Sep, [facility] [place] [facility] [address] [id number] [place] [address]- 8031 Sep, [facility] [place] [facility] [address] [id number] [place] [address]- 3920 Sep, [facility] [place] [facility] [address] [id number] [place] [address]- 5639 Sep, [facility] [address] [id number] [place] [address]- 6297 Sep, [facility] [address] [id number] [place] [address]- 6864 Sep, [facility] [address] [id number] [place] [address]- 6136 Sep, [facility] [address] [id number] [place] [address]- 2482 Sep, [facility] [address] [id number] [place] [address]- 3710 Sep, [facility] [address] [id number] [place] [address]- 4865 Sep, [facility] [address] [id number] [place] [address]- 4176 Sep, [facility] [address] [id number] [place] [address]- 6819 Sep, [facility] [address] [id number] [place] [address]- 9373 Sep, [facility] [address] [id number] [place] [address]- 7391 Sep, [facility] [place] [place] [facility] [address] [id number] [place] [address]- 0228 Sep, [facility] [address] [id number] [place] [address]- 6410 Sep, [facility] [place] [facility] [address] [id number] [place] [address]- 0102 Sep, [facility] [place] [facility] [address] [id number] [place] [address]- 2111 Sep, [facility] [place] [facility] [address] [id number] [place] [address]- 2550 Sep, [facility] [place] [facility] [address] [id number] [place] [address]- 5015 Aug, [facility] [place] [facility] [address] [id number] [place] [address]- 5215 Aug, [facility] [place] [facility] [address] [id number] [place] [address]- 2766 Aug, [facility] [place] [facility] [address] [id number] [place] [address]- 0629 Aug, [facility] [place] [facility] [address] [id number] [place] [address]- 7541 Jul, [facility] [place] [facility] [address] [id number] [place] [address]- 4061 Jul, [facility] [place] [facility] [address] [id number] [place] [address]- 2877 Jul, [facility] [place] [facility] [address] [id number] [place] [address]- 6590 Jul, [facility] [place] [facility] [address] [id number] [place] [address]- 9419 Jul, [facility] [place] [facility] [address] [id number] [place] [address]- 9382 Jul, [facility] [place] [facility] [address] [id number] [place] [address]- 7493 Jul, [facility] [place] [facility] [address] [id number] [place] [address]- 7019 Jul, [facility] [place] [facility] [address] [id number] [place] [address]- 7007 Jul, [facility] [place] [facility] [address] [id number] [place] [address]- 0686 Jul, [facility] [place] [facility] [address] [id number] [place] [address]- 5830 Jul, [facility] [place] [facility] [address] [id number] [place] [address]- 4633 Jul, [facility] [address] [id number] [place] [address]- 8065 Jun, [facility] [place] [facility] [address] [id number] [place] [address]- 3640 Jun, [facility] [address] [id number] [place] [address]- 0298 Jun, [facility] [place] [facility] [address] [id number] [place] [address]- 0430 Jun, [facility] [address] [id number] [place] [address]- 6093 Jun, [facility] [address] [id number] [place] [address]- 9029 Jun, [facility] [address] [id number] [place] [address]- 3713 May, [facility] [address] [id number] [place] [address]- 6306 May, [facility] [address] [id number] [place] [address]- 6019 Apr, [facility] [address] [id number] [place] [address]- 5427 Apr, [facility] [place] [facility] [address] [id number] [place] [address]- 9317 Apr, [facility] [place] [facility] [address] [id number] [place] [address]- 2102 Apr, [facility] [place] [facility] [address] [id number] [place] [address]- 3659 Apr, [facility] [place] [facility] [address] [id number] [place] [address]- 8050 Apr, [facility] [place] [facility] [address] [id number] [place] [address]- 3969 Apr, [facility] [place] [facility] [address] [id number] [place] [address]- 6419 15 Apr, 2013 [facility] [place] [facility] [address] [id number] [place] [address]- 5825 15 Apr, 2013 [facility] [place] [facility] [address] [id number] [place] [address]- 4177 15 Apr, 2013 [facility] [place] [facility] [address] [id number] [place] [address]- 9016 15 Apr, 2013 [facility] [place] [facility] [address] [id number] [place] [address]- 5673 Apr, [facility] [place] [facility] [address] [id number] [place] [address]- 5758 Apr, [facility] [place] [facility] [address] [id number] [place] [address]- 5585 31 Mar, 2013 [facility] [place] [facility] [address] [id number], [place] [address]- 6497 31 Mar, 2013 [facility] [place] [facility] [address] [id number] [place] [address]- 1611 25 Mar, 2013 [facility] [place] [facility] [address] [id number], [place] [address]- 7904 Mar, [facility] [place] [facility] [address] [id number], [place] [address]- 0207 17 Mar, 2013 [facility] [place] [facility] [address] [id number], [place] [address]- 6578 17 Mar, 2013 [facility] [place] [facility] [address] [id number] [place] [address]- 3649 14 Mar, 2013 [facility] [place] [facility] [address] [id number], [place] [address]- 0775 14 Mar, 2013 [facility] [place] [facility] [address] [id number], [place] [address]- 4956 11 Mar, 2013 [facility] [place] [facility] [address] [id number] [place] [address]- 2982 11 Mar, 2013 [facility] [place] [facility] [address] [id number] [place] [address]- 0599 02 Mar, 2013 [facility] [place] [facility] [address] [id number] [place] [address]- 4107 30 Feb, 2013 [facility] [place] [facility] [address] [id number] [place] [address]- 6068 28 Feb, 2013 [facility] [place] [facility] [address] [id number] [place] [address] 27 Feb, 2013 [facility] [place] [facility] [address] [id number] [place] [address] 27 Feb, 2013 [facility] [place] [facility] [address] [id number] [place] [address] 20 Feb, 2013 [facility] [place] [facility] [address] [id number] [place] [address] 10 Feb, 2013 [facility] [place] [facility] [address] [id number] [place] [address] Jan, [facility] [place] [facility] [address] [id number] [place] [address] Jan, [facility] [place] [facility] [address] [id number] [place] [address] Dec, [facility] [place] [facility] [address] [id number] [place] [address]497 Dec, [facility] [place] [facility] [address] [id number] [place] [address] 15 Dec, 2012 [facility] [place] [facility] [address] [id number] [place] [address] Dec, [facility] [place] [facility] [address] [id number] [place] [address] Nov, [facility] [place] [facility] [address] [id number] [place] [address] 14 Nov, 2012 [facility] [place] [facility] [address] [id number] [place] [address] Nov, [facility] [address] [id number] [place] [address] October, [facility] [address] [id number] [place] [address] October, [facility] [address] [id number] [place] [address] 136[address] October, [facility] [address] [id number] [place] [address]162 October, [facility] [address] [id number] [place] [address]472 October, [facility] [address] [id number] [place] [address] Sep, [facility] [address] [id number] [place] [address] 9735 Sep, [facility] [address] [id number] [place] [address] Aug, [facility] [address] [id number] [place] [address]007 Aug, [facility] [address] [id number] [place] [address] 2945 Aug, [facility] [address] [id number] [place] [address] 8995 Aug, [facility] [address] [id number] [place] [address] Aug, [facility] [place] [facility] [address] [id number] [place] [address] Jul, [facility] [address] [id number] [place] [address] 1498 Jul, [facility] [address] [id number] [place] [address]162 06 Jul, 2012 [facility] [address] [id number] [place] [address] Jul, [facility] [address] [id number] [place] [address] Jun, [facility] [address] [id number] [place] [address]77 Jun, [facility] [address] [id number] [place] [address]75 Jun, [facility] [address] [id number] [place] [address] 9672 Jun, [facility] [address] [id number] [place] [address]608 Jun, [facility] [address] [id number] [place] [address] 8319 Jun, [facility] [address] [id number] [place] [address] Jun, [facility] [address] [id number] [place] [address] Jun, [facility] [address] [id number] [place] [address]385 Jun, [facility] [address] [id number] [place] [address]368 Jun, [facility] [address] [id number] [place] [address] Jun, [facility] [place] [facility] [address] [id number] [place] [address]75 May, [facility] [place] [facility] [address] [id number] [place] [address] May, [facility] [place] [facility] [address] [id number] [place] [address] Apr, [facility] [place] [facility] [address] [id number] [place] [address]46 Apr, [facility] [place] [facility] [address] [id number] [place] [address] Mar, [facility] [place] [facility] [address] [id number] [place] [address]- 2546 Mar, [facility] [place] [facility] [address] [id number] [place] [address] 2546 Mar, [facility] [place] [facility] [address] [id number] [place] [address]- 2547 Mar, [facility] [place] [facility] [address] [id number] [place] [address]- [address]277 Mar, [facility] [place] [facility] [address] [id number] [place] [address] 3426 Mar, [facility] [place] [facility] [address] [id number] [place] [address]687 Mar, [facility] [place] [facility] [address] [id number] [place] [address] 45[address] Mar, [facility] [place] [facility] [address] [id number] [place] [address] 2546 Mar, [facility] [place] [facility] [address] [id number] [place] [address]- [address]46 Feb, [facility] [place] [facility] [address] [id number] [place] [address] 2546 Jan, [facility] [place] [facility] [address] [id number] [place] [address]46 Jan, [facility] [place] [facility] [address] [id number] [place] [address] 2546 Dec, [facility] [place] [facility] [address] [id number] [place] [address]46 Dec, [facility] [place] [facility] [address] [id number] [place] [address]- [address]97 Dec, [facility] [place] [facility] [address] [id number] [place] [address]447 Nov, [facility] [place] [facility] [address] [id number] [place] [address] 0216 Nov, [facility] [place] [facility] [address] [id number] [place] [address]176 Nov, [facility] [place] [facility] [address] [id number] [place] [address]- 3685 Nov, [facility] [place] [facility] [address] [id number] [place] [address] October, [facility] [place] [facility] [address] [id number] [place] [address] October, [facility] [place] [facility] [address] [id number] [place] [address] Sep, [facility] [place] [facility] [address] [id number] [place] [address] Sep, [facility] [place] [facility] [address] [id number] [place] [address] Aug, [facility] [place] [facility] [address] [id number] [place] [address] Jul, [facility] [place] [facility] [address] [id number] [place] [address] Jul, [facility] [place] [facility] [address] [id number], [place] [address] Jul, [facility] [place] [facility] [address] [id number] [place] [address] Jul, [facility] [place] [facility] [address] [id number] [place] [address] Jun, [facility] [place] [facility] [address] [id number] [place] [address] May, [facility] [place] [facility] [address] [id number] [place] [address] 15 May, 2011 [facility] [address] [id number] [place] [address] 15 May, 2011 [facility] [place] [facility] [address] [id number] [place] [address] 13 May, 2011 [facility] [place] [facility] [address] [id number] [place] [address] 08 May, 2011 [facility] [place] [facility] [address] [id number] [place] [address] 14 Apr, 2011 [facility] [place] [facility] [address] [id number] [place] [address] 14 Apr, 2011 [facility] [place] [facility] [address] [id number] [place] [address] 14 Apr, 2011 [facility] [place] [facility] [address] [id number] [place] [address] 07 Apr, 2011 [facility] [place] [facility] [address] [id number] [place] [address] 02 Apr, 2011 [facility] [place] [facility] [address] [id number] [place] [address] 26 Mar, 2011 [facility] [place] [facility] [address] [id number] [place] [address] 25 Mar, 2011 [facility] [place] [facility] [address] [id number] [place] [address] 14 Mar, 2011 [facility] [place] [facility] [address] [id number] [place] [address] 14 Mar, 2011 [facility] [place] [facility] [address] [id number] [place] [address] 13 Mar, 2011 [facility] [place] [facility] [address] [id number] [place] [address] 11 Mar, 2011 [facility] [place] [facility] [address] [id number] [place] [address] 11 Mar, 2011 [facility] [address] [id number] [address] 11 Mar, 2011 [facility] [address] [id number], [place] [address] 14 Feb, 2011 [facility] [address] [id number], [place] [address] May, [facility] [address] [id number], [place] [address] May, [facility] [address] [id number], [place] [address] May, [facility] [address] [id number], [place] [address] Apr, [facility] [address] [id number], [place] [address] Mar, IMMUNIZATIONS No Known Immunizations SOCIAL HISTORY Never Assessed REASON FOR VISIT xanax refill PLAN OF CARE VITAL SIGNS MEDICATIONS Medication Instructions Dosage Frequency Start Date End Date Duration Status Alprazolam 2 MG Orally take half tab twice a day 1 tablet 30 days Active Xanax 0.5 MG Orally daily 1 tablet 24h Mar, [...]
--- OUTSIDE RECORDS SUMMARY | 2018-08-19 10:01 | XMS REPORT ---
Author Author SOFIA WENDI Organization [facility] Address [address] [place] [address] Care Team Providers Care Vegetable Preparer Name Role Phone SOFIAMARIA EUGENIA ELIZABETHHANY Unavailable PROBLEMS Type Condition ICD9-CM Code [id number] Code Onset Dates Condition Status SNOMED Code Problem Posttraumatic stress disorder F43.10 Active 40780064 Problem Generalized anxiety disorder F41.1 Active 19688812 Problem Panic disorder F41.0 Active 159495572 Problem Nausea R11.0 Active 814694437 Problem Anxiety F41.9 Active 67415027 Problem Hot flashes R23.2 Active 669069856 Problem Hematuria R31.9 Active 66375956 Problem Mixed hyperlipidemia E78.2 Active 584907439 Problem Low back pain with sciatica, sciatica laterality unspecified, unspecified back pain laterality, unspecified chronicity M54.40 Active 796116445 Problem Bipolar disorder, current episode mixed, moderate F31.62 Active 420353951 Problem Multiple fractures T07.XXXA Active 149685827 Problem Acute right-sided low back pain with right-sided sciatica M54.41 Active 51429682 Problem Gastroesophageal reflux disease, esophagitis presence not specified K21.9 Active 280623276 Problem Bipolar disorder F31.9 Active 46919835 Problem Primary insomnia F51.01 Active 093975021 Problem Mild intermittent asthma without complication J45.20 Active 972799778 Problem Hidradenitis suppurativa L73.2 Active 95532104 Problem History of IBS Z87.19 Active 53258847276105 Problem Essential hypertension I10 Active 70762573 Problem Genital herpes simplex, unspecified site A60.00 Active 22331686 Problem Vitamin D deficiency E55.9 Active 73969366 Problem Depression F32.9 Active 40713851 Problem Tobacco use Z72.0 Active 354271837 ALLERGIES No Information ENCOUNTERS Encounter Location Date Diagnosis [facility] [address], [place] [address] Apr, [facility] [address], [place] [address] Apr, [facility] [id number] [place] [address] 65403- 4959 Mar, [facility] [id number] [place] [address] 55641- 6470 Mar, Genital herpes simplex, unspecified site A60.00 [facility] [id number] [place] [address] 77404- 6160 Mar, [facility] [id number] [place] [address] 300324- 0429 Mar, [facility] [id number] [place] [address] 91405- 4929 Mar, Panic disorder F41.0 [facility] [id number] [place] [address] 10593- 3476 Mar, [facility] [id number] [place] [address] 54420- 8434 Mar, Genital herpes simplex, unspecified site A60.00 and Hidradenitis L73.2 [facility] [id number] [place] [address] 30681- 8273 Feb, Panic disorder F41.0 ; Bipolar disorder, current episode mixed, moderate F31.62 and Generalized anxiety disorder F41.1 [facility] [address], [place] [address] Feb, Panic disorder F41.0 [facility] [id number] [place] [address] 28525- 5348 Jan, Genital herpes simplex, unspecified site A60.00 [facility] [id number] [place] [address] 35764- 1530 Jan, Panic disorder F41.0 [facility] [id number] [place] [address] 25195- 9963 Dec, Diaphoresis R61 and Excessive thirst R63.1 [facility] [id number] [place] [address] 98572- 3133 Dec, Panic disorder F41.0 ; Bipolar disorder, current episode mixed, moderate F31.62 and Generalized anxiety disorder F41.1 [facility] [address] 86714- 4140 Dec, Panic disorder F41.0 [facility] [id number] [place] [address] 65911- 2748 Nov, Panic disorder F41.0 [facility] [id number] [place] [address] 79694- 7502 Nov, Panic disorder F41.0 ; Generalized anxiety disorder F41.1 and Bipolar disorder, current episode mixed, moderate F31.62 [facility] [id number] [place] [address] 29620- 0494 Nov, Panic disorder F41.0 [facility] [id number] [place] [address] 61756- 3152 Nov, Panic disorder F41.0 [facility] [id number] [place] [address] 87839- 3232 October, Panic disorder F41.0 [facility] [id number] [place] [address] 02582- 8731 October, Panic disorder F41.0 ; Generalized anxiety disorder F41.1 and Bipolar disorder, current episode mixed, moderate F31.62 [facility] [id number] [place] [address] 49642- 5962 October, Panic disorder F41.0 [facility] [id number] [place] [address] 62642- 2441 Sep, Hospital discharge follow-up Z09 ; Concussion without loss of consciousness, initial encounter S06.0X0A and Nausea R11.0 [facility] [id number] [place] [address] 83449- 5866 Sep, [facility] [address] 92340- 9899 Sep, Panic disorder F41.0 [facility] [id number] [place] [address] 82289- 6264 Sep, [facility] [address] 48014- 5428 Sep, Well woman exam with routine gynecological exam Z01.419 ; Multiple fractures T07.XXXA ; Hot flashes R23.2 ; Essential hypertension I10 ; Mixed hyperlipidemia E78.2 ; Genital herpes simplex, unspecified site A60.00 ; Alkaline phosphatase elevation R74.8 ; Dysuria R30.0 ; Vitamin D deficiency E55.9 ; Tobacco use Z72.0 ; High risk sexual behavior Z72.51 and Encounter for immunization Z23 [facility] [address] 64246- 4746 Aug, Panic disorder F41.0 ; Generalized anxiety disorder F41.1 and Bipolar disorder, current episode mixed, moderate F31.62 [facility] [id number] [place] [address] 64928- 8097 Aug, [facility] [id number] [place] [address] 09656- 4950 Jul, Panic disorder F41.0 ; Generalized anxiety disorder F41.1 and Bipolar disorder, current episode mixed, moderate F31.62 [facility] [id number] [place] [address] 77661- 2383 Jul, [facility] [address] 69090- 5321 Jul, [facility] [id number] [place] [address] 86505- 0919 Jul, Effusion, right knee M25.461 ; Acute pain of right knee M25.561 and Acute pain of left knee M25.562 [facility] [id number] [place] [address] 94347- 4925 Jun, Bipolar disorder, current episode mixed, moderate F31.62 ; Generalized anxiety disorder F41.1 and Panic disorder F41.0 [facility] [id number] [place] [address] 02778- 4572 May, Bipolar disorder, current episode mixed, moderate F31.62 ; Generalized anxiety disorder F41.1 and Panic disorder F41.0 [facility] [id number] [place] [address] 93641- 8237 May, Bipolar disorder, current episode mixed, moderate F31.62 [facility] [id number] [place] [address] 93553- 5010 May, Bipolar disorder, current episode mixed, moderate F31.62 [facility] [id number] [place] [address] 46028- 7348 Apr, Bipolar disorder, current episode mixed, moderate F31.62 ; Generalized anxiety disorder F41.1 and Panic disorder F41.0 [facility] [id number] [place] [address] 61315- 7638 Mar, [facility] [id number] [place] [address] 41816- 3773 Mar, Bipolar disorder, current episode mixed, moderate F31.62 ; Generalized anxiety disorder F41.1 and Panic disorder F41.0 [facility] [id number] [place] [address] 78163- 8311 Feb, [facility] [id number] [place] [address] 21956- 6364 22 Feb, 2017 Posttraumatic stress disorder F43.10 [facility] [id number] [place] [address] 24945- 4387 20 Feb, 2017 Gastroesophageal reflux disease, esophagitis presence not specified K21.9 [facility] [id number] [place] [address] 22479- 5211 13 Feb, 2017 [facility] [id number] [place] [address] 00902- 0587 06 Feb, 2017 Knee pain, right anterior M25.561 [facility] [id number] [place] [address] 09756- 9448 05 Feb, 2017 HSV (herpes simplex virus) infection B00.9 [facility] [id number] [place] [address] 20353- 9724 Feb, [facility] [id number] [place] [address] 34091- 4089 Jan, [facility] [id number] [place] [address] 26304- 3508 Jan, Posttraumatic stress disorder F43.10 [facility] [id number] [place] [address] 55406- 2361 Jan, Foot pain, left M79.672 [facility] [id number] [place] [address] 74959- 3396 Jan, [facility] [id number] [place] [address] 19217- 7109 Jan, Lumbar radiculopathy, acute M54.16 ; Muscle spasm of back M62.830 and Right hip pain M25.551 [facility] [id number] [place] [address] 74340- 5632 Jan, Lumbar radiculopathy, acute M54.16 [facility] [id number] [place] [address] 16345- 2293 Jan, [facility] [id number] [place] [address] 12564- 8037 Jan, [facility] [id number] [place] [address] 45938- 4584 Dec, Lumbar radiculopathy, acute M54.16 ; Acute renal insufficiency N28.9 and Muscle spasm of back M62.830 [facility] [address], [place] [address]- 7204 Dec, [facility] [id number] [place] [address] 80198- 6779 Dec, [facility] [id number] [place] [address] 20085- 6151 Dec, [facility] [id number] [place] [address] 17958 -9417 Dec, Low back pain with sciatica, sciatica laterality unspecified, unspecified back pain laterality, unspecified chronicity M54.40 and Acute right-sided low back pain with right-sided sciatica M54.41 [facility] [id number] [place] [address] 55101- 1168 Dec, Posttraumatic stress disorder F43.10 [facility] [id number] [place] [address] 70251- 0608 Dec, [facility] [id number] [place] [address] 86030- 1426 Dec, Pain in right thigh M79.651 and Acute right-sided low back pain without sciatica M54.5 [facility] [id number] [place] [address] 33657- 5708 Dec, Posttraumatic stress disorder F43.10 and Major depressive disorder, recurrent episode with anxious distress F33.9 [facility] [address], [place] [address]5755 Dec, [facility] [id number] [place] [address] 62347- 3528 Nov, [facility] [id number] [place] [address] 02820- 5265 October, [facility] [id number] [place] [address] 17961- 5888 October, [facility] [id number] [place] [address] 37759- 0245 October, Knee pain, right anterior M25.561 [facility] [id number] [place] [address] 72524- 5448 October, Knee pain, right anterior M25.561 [facility] [id number] [place] [address] 27421- 1071 October, [facility] [id number] [place] [address] 61091- 4575 October, [facility] [id number] [place] [address] 21767- 6945 October, [facility] [id number] [place] [address] 37003 -5171 Sep, [facility] [id number] [place] [address] 61158- 2444 Sep, [facility] [id number] [place] [address] 92676- 7428 Sep, Essential hypertension I10 [facility] [id number] [place] [address] 63256- 8841 11 Sep, 2016 Essential hypertension I10 [facility] [id number] [place] [address] 94912- 6821 Sep, [facility] [id number] [place] [address] 73175- 3931 Sep, Posttraumatic stress disorder F43.10 and Major depressive disorder, recurrent episode with anxious distress F33.9 [facility] [id number] [place] [address] 10903- 2734 Sep, Multiple fractures T14.8 ; Alkaline phosphatase elevation R74.8 and Vitamin D deficiency E55.9 [facility] [address], [place] [address]- 9444 Sep, [facility] [id number] [place] [address] 21883- 0273 Sep, Elevated serum creatinine R79.89 ; Fracture of foot, left, closed, initial encounter S92.902A and Alkaline phosphatase elevation R74.8 [facility] [id number] [place] [address] 61029- 1776 Sep, Elevated serum creatinine R79.89 and Essential hypertension I10 [facility] [id number] [place] [address] 33760- 9361 Sep, [facility] [address] 13923- 3704 Aug, Gastroesophageal reflux disease, esophagitis presence not specified K21.9 [facility] [address] 914734- 4644 Aug, Essential hypertension I10 ; Fracture of foot, left, closed , initial encounter S92.902A and Alkaline phosphatase elevation R74.8 [facility] [address] 89450- 2943 Jul, Genital herpes simplex, unspecified site A60.00 [facility] [address] 82459- 2716 Jul, Essential hypertension I10 [facility] [address] 40149- 8289 Jun, Cough R05 and Wheezing R06.2 [facility] [id number] [place] [address] 55524- 5902 Jun, Essential hypertension I10 [facility] [id number] [place] [address] 38902- 6693 May, Essential hypertension I10 [facility] [address] 13386- 5308 May, Posttraumatic stress disorder F43.10 and Major depressive disorder, recurrent episode with anxious distress F33.9 [facility] [id number] [place] [address] 25385- 7642 Apr, [facility] [id number] [place] [address] 91680- 8838 Apr, [facility] [address] 18381- 9169 Apr, [facility] [address] 05929- 2503 Mar, [facility] [address] 08971- 8298 Feb, [facility] [address] 58424- 4963 Jan, [facility] [address] 63034- 6417 Jan, Essential hypertension I10 ; Mixed hyperlipidemia E78.2 ; Gastroesophageal reflux disease, esophagitis presence not specified K21.9 ; Mild intermittent asthma without complication J45.20 ; Hidradenitis suppurativa L73.2 ; Migraine without status migrainosus, not intractable, unspecified migraine type G43.909 ; Genital herpes simplex, unspecified site A60.00 and Closed traumatic minimally displaced fracture of metatarsal bone of left foot S92.302A [facility] [address] 07684 -2372 Jan, Localized edema R60.0 [facility] [address] 92209- 5522 Dec, [facility] [address] 69440- 1639 Dec, [facility] [id number] [place] [address] 95856- 4293 Dec, [facility] [address] 58036 -6700 Dec, Cough R05 ; Tobacco dependence F17.200 and Costochondritis , acute M94.0 [facility] [address] 76032- 8575 Dec, Major depression, recurrent F33.9 ; Bipolar disorder, unspecified F31.9 and Posttraumatic stress disorder F43.10 [facility] [id number] [place] [address] 79421- 8299 Nov, [facility] [id number] [address]- 1514 Nov, [facility] [id number] [place] [address] 33272- 2098 October, [facility] [address], [place] [address] -[address] October, Acute upper respiratory infection, unspecified J06.9 [facility] [id number] [place] [address] 13403- 7232 October, [facility] [id number] [place] [address] 09402- 5503 Sep, Bipolar affective disorder, remission status unspecified F31.9 and Post-traumatic stress disorder F43.10 [facility] [id number] [place] [address] 38246- 4778 Sep, Bipolar disorder, unspecified F31.9 ; Posttraumatic stress disorder F43.10 and Major depression, recurrent F33.9 [facility] [id number] [place] [address] 02556- 6936 Aug, Edema R60.9 ; Fatigue R53.83 and Polydipsia R63.1 [facility] [address], [place] [address]- 2494 Aug, [facility] [address] [place] [address]- 1143 Aug, [facility] [id number] [place] [address] 01293- 5882 Jul, [facility] [address] [address]- 4301 Jul, [facility] [id number] [place] [address] 18082- 1274 Jun, [facility] [id number] [place] [address] 01226- 8513 Jun, [facility] [id number] [place] [address] 27863- 9826 Jun, [facility] [address] 56277- 6028 Jun, [facility] [address] 55141- 2139 May, Mixed hyperlipidemia E78.2 [facility] [address] 40603- 4137 May, Well woman exam Z01.419 ; History of herpes simplex infection Z86.19 ; Papanicolaou smear Z12.4 ; History of depression Z86.59 ; History of anxiety Z86.59 ; Lipoma of other specified sites D17.79 ; Hidradenitis suppurativa L73.2 ; Routine screening for STI (sexually transmitted infection) Z11.3 and Tobacco use Z72.0 [facility] [address] 69103- 6562 May, Hematuria R31.9 ; Essential hypertension I10 ; Pure hypercholesterolemia E78.0 and Hidradenitis L73.2 [facility] [id number] [place] [address] 36861- 2352 May, Upper respiratory symptom R09.89 and Allergic rhinitis J30.9 [facility] [id number] [place] [address] 76045- 8302 May, [facility] [address] 95880- 7182 May, [facility] [id number] [place] [address] 98338- 0261 May, Bipolar disorder, unspecified F31.9 ; Posttraumatic stress disorder F43.10 and Major depression, recurrent F33.9 [facility] [address] [place] [address]- 2787 May, [facility] [address] [place] [address]- 5606 May, [facility] [address], [place] [address]- 6471 Apr, [facility] [id number] [place] [address] 30601- 0392 Apr, [facility] [id number] [place] [address] 49251- 0156 Mar, [facility] [id number] [place] [address] 46433- 2920 Mar, [facility] [id number]- 5271 Mar, [facility] [id number] [place] [address] 700709- 4397 Feb, Major depressive disorder, recurrent episode, moderate 296.32 and Post traumatic stress disorder (PTSD) 309.81 [facility] [id number] [address]- 2245 Feb, [facility] [address] 6137 Feb, [facility] [id number] [address]11 Jan, Cough 786.2 [facility] [id number] 5279 Jan, Depression, major, recurrent, moderate 296.32 and Post traumatic stress disorder (PTSD) 309.81 [facility] [address] [place] [address]- 9726 Jan, [facility] [id number] [address] Dec, [facility] [id number] [place] [address] Dec, Generalized anxiety disorder 300.02 and Depression, major, recurrent, moderate 296.32 [facility] [address] [place] [address] Dec, [facility] [address] [place] [address] Dec, High risk medication use V58.69 [facility] [id number] [address] Dec, High risk medication use V58.69 [facility] [id number] [place] [address] Dec, [facility] [address] [address] Nov, Generalized anxiety disorder 300.02 and Major depressive disorder, recurrent episode, moderate 296.32 [facility] [id number] [place] [id number] Nov, Dental examination V72.2 [facility] [id number] [place] [address] [id number] Nov, Dental examination V72.2 [facility] [address], [place] [address] Nov, [facility] [id number] [place] [address] [id number] Nov, Dental examination V72.2 [facility] [id number] [place] [id number] Nov, Dental examination V72.2 [facility] [id number], [place] [address] October, Major depressive disorder, recurrent episode, moderate 296.32 and Generalized anxiety disorder 300.02 [facility] [id number] [address] October, [facility] [place] [facility] [address] [id number] [address] October, [facility] [place] [facility] [address] [id number] [place] [address] October, [facility] [place] [facility] [address] [id number] [place] [address] Sep, [facility] [place] [facility] [address] [id number] [place] [address]7 Sep, [facility] [place] [facility] [address] [id number] [place] [address] Aug, [facility] [place] [facility] [address] [id number] [place] [address] 2810 Aug, [facility] [place] [facility] [address] [id number] [place] [address]- 0946 Aug, [facility] [place] [facility] [address] [id number] [place] [address]- 9144 Aug, [facility] [place] [facility] [address] [id number] [place] [address] 3559 Aug, [facility] [place] [facility] [address] [id number] [place] [address] 3213 Aug, [facility] [place] [facility] [address] [id number] [place] [address] 4798 Aug, [facility] [place] [facility] [address] [id number] [place] [address] 6138 Jul, [facility] [place] [facility] [address] [id number] [place] [address]- 1188 Jul, [facility] [place] [facility] [address] [id number] [place] [address] 6496 Jul, [facility] [place] [facility] [address] [id number] [place] [address]- 8570 Jul, [facility] [place] [facility] [address] [id number], [place] [address] 06 Jul, 2014 [facility] [place] [facility] [address] [id number] [place] [address]- 9524 Jul, [facility] [place] [facility] [address] [id number] [place] [address] Jul, [facility] [place] [facility] [address] [id number] [place] [address]- 2186 Jul, [facility] [place] [facility] [address] [id number] [place] [address]- 5264 Jul, [facility] [place] [facility] [address] [id number] [place] [address]- 3834 Jun, [facility] [place] [facility] [address] [id number] [place] [address]- 6430 Jun, [facility] [place] [facility] [address] [id number] [place] [address]- 0184 Jun, [facility] [place] [facility] [address] [id number] [place] [address]- 1035 Jun, [facility] [place] [facility] [address] [id number] [place] [address]- 2705 Jun, [facility] [place] [facility] [address] [facility] [id number] [place] [address]- 0709 Jun, [facility] [place] [facility] [address] [id number] [place] [address]- 2404 Jun, [facility] [place] [facility] [address] [id number] [place] [address]- 0832 Jun, [facility] [place] [facility] [address] [id number] [place] [address]- 5342 Jun, [facility] [place] [facility] [address] [id number] [place] [address]- 5459 Jun, [facility] [place] [facility] [address] [id number] [place] [address]- 6548 Jun, [facility] [place] [facility] [address] [id number] [place] [address]- 9574 Jun, [facility] [place] [facility] [address] [id number] [place] [address]- 3091 Jun, [facility] [place] [facility] [address] [id number] [place] [address]- 2592 Jun, [facility] [place] [facility] [address] [id number] [place] [address]- 1762 Jun, [facility] [place] [facility] [address] [id number] [place] [address]- 2518 Jun, [facility] [place] [facility] [address] [id number] [place] [address]- 9016 Jun, [facility] [place] [facility] [address] [id number] [place] [address]- 0871 Jun, [facility] [place] [facility] [address] [id number] [place] [address]- 5821 Jun, [facility] [place] [facility] [address] [id number] [place] [address]- 7170 Jun, [facility] [place] [facility] [address] [id number] [place] [address]- 7967 Jun, [facility] [place] [facility] [address] [id number] [place] [address]- 5920 Jun, [facility] [place] [facility] [address] [id number] [place] [address]- 7021 Jun, [facility] [place] [facility] [address] [id number] [place] [address]- 6042 Jun, [facility] [place] [facility] [address] [id number] [place] [address]- 6935 Jun, [facility] [place] [facility] [address] [id number] [place] [address]- 8843 May, [facility] [place] [facility] [address] [id number] [place] [address]- 4768 May, [facility] [place] [facility] [address] [id number] [place] [address]- 2456 May, [facility] [place] [facility] [address] [id number] [place] [address] May, [facility] [place] [facility] [address] [id number] [place] [address]- 5856 May, [facility] [place] [facility] [address] [id number] [place] [address]- 2559 May, [facility] [place] [facility] [address] [id number] [place] [address]- 8732 May, [facility] [place] [facility] [address] [id number] [place] [address]- 8550 May, [facility] [place] [facility] [address] [id number] [place] [address]- 6403 May, [facility] [place] [facility] [address] [id number] [place] [address]- 1349 May, [facility] [place] [facility] [address] [id number] [place] [address]- 5409 May, [facility] [place] [facility] [address] [id number] [place] [address]- 1316 May, [facility] [place] [facility] [address] [id number] [place] [address]- 1877 May, [facility] [place] [facility] [address] [id number] [place] [address]- 9252 May, [facility] [place] [facility] [address] [id number] [place] [address]- 4019 May, [facility] [place] [facility] [address] [id number] [place] [address]- 9806 May, [facility] [place] [facility] [address] [id number] [place] [address] May, [facility] [place] [facility] [address] [id number] [place] [address]- 4292 May, [facility] [place] [facility] [address] [id number] [place] [address]- 8266 Apr, [facility] [place] [facility] [address] [id number] [place] [address]- 4479 Apr, [facility] [place] [facility] [address] [id number] [place] [address]- 5302 Apr, [facility] [place] [facility] [address] [id number] [place] [address]- 9883 Apr, [facility] [place] [facility] [address] [id number] [place] [address]- 7876 Apr, [facility] [place] [facility] [address] [id number] [place] [address]- 9071 Apr, [facility] [place] [facility] [address] [id number] [place] [address]- 0195 Apr, [facility] [place] [facility] [address] [id number] [place] [address]- 4215 Apr, [facility] [place] [facility] [address] [id number] [place] [address]- 4758 Mar, [facility] [place] [facility] [address] [id number] [place] [address]- 9183 Mar, [facility] [place] [facility] [address] [id number] [place] [address]- 3157 Feb, [facility] [place] [facility] [address] [id number] [place] [address]- 6096 Feb, [facility] [place] [facility] [address] [id number] [place] [address]- 1846 Feb, [facility] [place] [facility] [address] [id number] [place] [address]- 7370 Feb, [facility] [place] [facility] [address] [id number] [place] [address]- 3288 Feb, [facility] [place] [facility] [address] [id number] [place] [address]- 9710 Feb, [facility] [place] [facility] [address] [id number] [place] [address]- 0918 Feb, [facility] [place] [facility] [address] [id number] [place] [address]- 1177 Feb, [facility] [place] [facility] [address] [id number] [place] [address]- 4586 Feb, [facility] [place] [facility] [address] [id number] [place] [address]- 1564 Feb, [facility] [place] [facility] [address] [id number] [place] [address]- 2047 Jan, [facility] [place] [facility] [address] [id number] [place] [address]- 1358 Jan, [facility] [place] [facility] [address] [id number] [place] [address]- 6846 Jan, [facility] [place] [facility] [address] [id number] [place] [address]- 0294 Jan, [facility] [place] [facility] [address] [id number] [place] [address]- 5710 Jan, [facility] [place] [facility] [address] [id number] [place] [address]- 5663 Jan, [facility] [place] [facility] [address] [id number] [place] [address]- 1257 Jan, [facility] [place] [facility] [address] [id number] [place] [address]- 2028 Jan, [facility] [place] [facility] [address] [id number] [place] [address]- 5176 Jan, [facility] [place] [facility] [address] [id number] [place] [address]- 7335 Jan, [facility] [place] [facility] [address] [id number] [place] [address]- 4142 Jan, [facility] [place] [facility] [address] [id number] [place] [address]- 3681 Jan, [facility] [place] [facility] [address] [id number] [place] [address]- 8172 Jan, [facility] [place] [facility] [address] [id number] [place] [address]- 4972 Dec, [facility] [place] [facility] [address] [id number] [place] [address]- 6729 Dec, [facility] [place] [facility] [address] [id number] [place] [address]- 9451 Dec, [facility] [place] [facility] [address] [id number] [place] [address]- 1499 Dec, [facility] [place] [facility] [address] [id number] [place] [address]- 0752 Dec, [facility] [place] [facility] [address] [id number] [place] [address]- 2123 Dec, [facility] [place] [facility] [address] [id number] [place] [address]- 7896 Dec, [facility] [place] [facility] [address] [id number] [place] [address]- 1402 Dec, [facility] [place] [facility] [address] [id number] [place] [address]- 3637 Dec, [facility] [place] [facility] [address] [id number] [place] [address]- 2595 Dec, [facility] [place] [facility] [address] [id number] [place] [address]- 6612 Dec, [facility] [place] [facility] [address] [id number] [place] [address]- 6487 Dec, [facility] [place] [facility] [address] [id number] [place] [address]- 3140 Dec, [facility] [place] [facility] [address] [id number] [place] [address]- 9194 Dec, [facility] [place] [facility] [address] [id number] [place] [address]- 0110 Nov, [facility] [place] [facility] [address] [id number] [place] [address]- 5362 Nov, [facility] [place] [facility] [address] [id number] [place] [address]- 6216 Nov, [facility] [place] [facility] [address] [id number] [place] [address]- 2668 Nov, [facility] [place] [facility] [address] [id number] [place] [address]- 7472 Nov, [facility] [place] [facility] [address] [id number] [place] [address]- 0027 Nov, [facility] [place] [facility] [address] [id number] [place] [address]- 7385 Nov, [facility] [place] [facility] [address] [id number] [place] [address]- 0664 Nov, [facility] [place] [facility] [address] [id number] [place] [address]- 0099 October, [facility] [place] [facility] [address] [id number] [place] [address]- 2172 October, [facility] [place] [facility] [address] [id number] [place] [address]- 7150 October, [facility] [place] [facility] [address] [id number] [place] [address]- 7316 October, [facility] [place] [facility] [address] [id number] [place] [address]- 3176 October, [facility] [place] [facility] [address] [id number] [place] [address]- 8443 October, [facility] [place] [facility] [address] [id number] [place] [address]- 3340 October, [facility] [place] [facility] [address] [id number] [place] [address]- 4130 October, [facility] [place] [facility] [address] [id number] [place] [address]- 6883 October, [facility] [place] [facility] [address] [id number] [place] [address]- 0208 October, [facility] [place] [facility] [address] [id number] [place] [address]- 6188 October, [facility] [place] [facility] [address] [id number] [place] [address]- 1535 October, [facility] [place] [facility] [address] [id number] [place] [address]- 7475 October, [facility] [place] [facility] [address] [id number] [place] [address]- 6708 October, [facility] [place] [facility] [address] [id number] [place] [address]- 3388 October, [facility] [place] [facility] [address] [id number] [place] [address]- 5733 October, [facility] [place] [facility] [address] [id number] [place] [address]- 4293 Sep, [facility] [place] [facility] [address] [id number] [place] [address]- 2591 Sep, [facility] [place] [facility] [address] [id number], [place] [address]- 0350 Sep, [facility] [place] [facility] [address] [id number] [place] [address]- 0006 Sep, [facility] [place] [facility] [address] [id number] [place] [address]- 5113 Sep, [facility] [place] [facility] [address] [id number] [place] [address]- 8225 Sep, [facility] [place] [facility] [address] [id number] [place] [address]- 8320 Sep, [facility] [place] [facility] [address] [id number] [place] [address]- 5473 Sep, [facility] [place] [facility] [address] [id number] [place] [address]- 9659 Sep, [facility] [place] [facility] [address] [id number] [place] [address]- 7749 Sep, [facility] [place] [facility] [address] [id number] [place] [address]- 4939 Sep, [facility] [place] [facility] [address] [id number] [place] [address]- 1722 Sep, [facility] [place] [facility] [address] [id number] [place] [address]- 0607 Sep, [facility] [place] [facility] [address] [id number] [place] [address]- 7792 Sep, [facility] [place] [facility] [address] [id number] [place] [address]- 9433 Sep, [facility] [place] [facility] [address] [id number] [place] [address]- 6460 Sep, [facility] [place] [facility] [address] [id number] [place] [address]- 0702 Sep, [facility] [place] [facility] [address] [id number] [place] [address]- 5828 Sep, [facility] [place] [facility] [address] [id number] [place] [address]- 6752 Sep, [facility] [place] [facility] [address] [id number] [place] [address]- 2356 Aug, [facility] [place] [facility] [address] [id number] [place] [address]- 3078 Aug, [facility] [place] [facility] [address] [id number] [place] [address]- 5470 Aug, [facility] [place] [facility] [address] [id number] [place] [address]- 7926 Aug, [facility] [place] [facility] [address] [id number] [place] [address]- 6908 Jul, [facility] [place] [facility] [address] [id number] [place] [address]- 3017 Jul, [facility] [place] [facility] [address] [id number] [place] [address]- 1076 Jul, [facility] [place] [facility] [address] [id number] [place] [address]- 1004 Jul, [facility] [place] [facility] [address] [id number] [place] [address]- 8564 Jul, [facility] [place] [facility] [address] [id number] [place] [address]- 0237 Jul, [facility] [place] [facility] [address] [id number] [place] [address]- 9821 Jul, [facility] [place] [facility] [address] [id number] [place] [address]- 6071 Jul, [facility] [place] [facility] [address] [id number] [place] [address]- 6279 Jul, [facility] [place] [facility] [address] [id number] [place] [address]- 1678 Jul, [facility] [place] [facility] [address] [id number] [place] [address]- 5457 Jul, [facility] [place] [facility] [address] [id number] [place] [address]- 8211 Jul, [facility] [place] [facility] [address] [id number] [place] [address]- 4536 Jun, [facility] [place] [facility] [address] [id number] [place] [address]- 5743 Jun, [facility] [place] [facility] [address] [id number] [place] [address]- 5369 Jun, [facility] [address] [id number] [place] [address]- 0138 Jun, [facility] [address] [id number] [place] [address]- 9378 Jun, [facility] [address] [id number] [place] [address]- 3613 Jun, [facility] [address] [id number] [place] [address]- 2962 May, [facility] [address] [id number] [place] [address]- 1448 May, [facility] [address] [id number] [place] [address]- 1073 Apr, [facility] [address] [id number] [place] [address]- 4247 Apr, [facility] [address] [id number] [place] [address]- 0890 Apr, [facility] [address] [id number] [place] [address]- 4112 19 Apr, 2013 [facility] [address] [id number] [place] [address]- 0355 18 Apr, 2013 [facility] [address] [id number] [place] [address]- 9824 18 Apr, 2013 [facility] [address] [id number] [place] [address]- 4615 17 Apr, 2013 [facility] [place] [facility] [address] [id number] [place] [address]- 3063 15 Apr, 2013 [facility] [address] [id number] [place] [address]- 6782 15 Apr, 2013 [facility] [address] [id number] [place] [address]- 4604 15 Apr, 2013 [facility] [place] [facility] [address] [id number] [place] [address]- 5326 15 Apr, 2013 [facility] [place] [facility] [address] [id number] [place] [address]- 9359 Apr, [facility] [place] [facility] [address] [id number] [place] [address]- 1383 Apr, [facility] [place] [facility] [address] [id number] [place] [address]- 1401 31 Mar, 2013 [facility] [place] [facility] [address] [id number] [place] [address]- 0148 31 Mar, 2013 [facility] [place] [facility] [address] [id number] [place] [address] Mar, [facility] [place] [facility] [address] [id number] [place] [address] 25 Mar, 2013 [facility] [place] [facility] [address] [id number], [place] [address] Mar, [facility] [place] [facility] [address] [id number] [place] [address] 17 Mar, 2013 [facility] [place] [facility] [address] [id number], [place] [address] 14 Mar, 2013 [facility] [place] [facility] [address] [id number], [place] [address] 14 Mar, 2013 [facility] [place] [facility] [address] [id number], [place] [address] 11 Mar, 2013 [facility] [place] [facility] [address] [id number] [place] [address] Mar, [facility] [place] [facility] [address] [id number], [place] [address] 02 Mar, 2013 [facility] [place] [facility] [address] [id number], [place] [address] 30 Feb, 2013 [facility] [place] [facility] [address] [id number] [place] [address] 28 Feb, 2013 [facility] [address] [id number] [place] [address] 27 Feb, 2013 [facility] [place] [facility] [address] [id number] [place] [address] 27 Feb, 2013 [facility] [address] [id number] [place] [address]296 20 Feb, 2013 [facility] [place] [facility] [address] [id number] [place] [address] 236[address] 10 Feb, 2013 [facility] [address] [id number] [place] [address] Jan, [facility] [place] [facility] [address] [id number] [place] [address] Jan, [facility] [address] [id number] [place] [address] Dec, [facility] [place] [facility] [address] [id number] [place] [address]272 Dec, [facility] [address] [id number] [place] [address] 2015 Dec, [facility] [place] [facility] [address] [id number] [place] [address] Dec, [facility] [address] [id number] [place] [address] Nov, [facility] [place] [facility] [address] [id number] [place] [address] Nov, [facility] [place] [facility] [address] [id number] [place] [address] 4[address] Nov, [facility] [place] [facility] [address] [id number] [place] [address] 119[address] October, [facility] [place] [facility] [address] [id number] [place] [address] October, [facility] [place] [facility] [address] [id number] [place] [address] October, [facility] [address] [id number] [place] [address] 3598 October, [facility] [place] [facility] [address] [id number] [place] [address] 1544 October, [facility] [place] [facility] [address] [id number] [place] [address]- 1569 Sep, [facility] [place] [facility] [address] [id number] [place] [address] 9[address] Sep, [facility] [place] [facility] [address] [id number] [place] [address] 38[address] Aug, [facility] [place] [facility] [address] [id number] [place] [address]44 Aug, [facility] [place] [facility] [address] [id number] [place] [address] Aug, [facility] [address] [id number] [place] [address] Aug, [facility] [place] [facility] [address] [id number] [place] [address] Aug, [facility] [place] [facility] [address] [id number] [place] [address] Jul, [facility] [place] [facility] [address] [id number] [place] [address] 1534 Jul, [facility] [place] [facility] [address] [id number] [place] [address] Jul, [facility] [place] [facility] [address] [id number] [place] [address] 8[address] Jul, [facility] [place] [facility] [address] [id number] [place] [address] Jun, [facility] [place] [facility] [address] [id number], [place] [address] Jun, [facility] [address] [id number] [place] [address] 9853 Jun, [facility] [place] [facility] [address] [id number] [place] [address]- 1550 Jun, [facility] [place] [facility] [address] [id number] [place] [address]- 8461 Jun, [facility] [place] [facility] [address] [id number] [place] [address] 46[address] Jun, [facility] [place] [facility] [address] [id number] [place] [address]- [address]321 Jun, [facility] [place] [facility] [address] [id number] [place] [address]- 1487 Jun, [facility] [place] [facility] [address] [id number] [place] [address]- 9358 Jun, [facility] [place] [facility] [address] [id number] [place] [address]- 9474 Jun, [facility] [place] [facility] [address] [id number] [place] [address]- 2874 Jun, [facility] [place] [facility] [address] [id number] [place] [address] 7510 May, [facility] [place] [facility] [address] [id number], [place] [address] May, [facility] [place] [facility] [address] [id number], [place] [address] Apr, [facility] [place] [facility] [address] [id number] [place] [address]60 Apr, [facility] [place] [facility] [address] [id number] [place] [address] Mar, [facility] [place] [facility] [address] [id number] [place] [address]- 1420 Mar, [facility] [place] [facility] [address] [id number] [place] [address]- 2546 Mar, 2011 [facility] [place] [facility] [address] [id number] [place] [address] 30 Mar, 2012 [facility] [place] [facility] [address] [id number] [place] [address] 2546 Mar, 2011 [facility] [place] [facility] [address] [id number] [place] [address]- 2546 Mar, [facility] [place] [facility] [address] [id number] [place] [address] 2546 Mar, [facility] [place] [facility] [address] [id number] [place] [address]- 2546 Mar, [facility] [place] [facility] [address] [id number] [place] [address]- 1296 Mar, [facility] [place] [facility] [address] [id number] [place] [address]40 Feb, [facility] [place] [facility] [address] [id number] [place] [address]- 1469 Jan, [facility] [place] [facility] [address] [id number] [place] [address]- 4250 Jan, [facility] [place] [facility] [address] [id number] [place] [address]- 1727 Dec, [facility] [place] [facility] [address] [id number] [place] [address]- 2546 Dec, [facility] [place] [facility] [address] [id number] [place] [address]- 2546 Dec, [facility] [place] [facility] [address] [id number] [place] [address]- 2546 Nov, [facility] [place] [facility] [address] [id number] [place] [address]- 2546 Nov, [facility] [place] [facility] [address] [id number] [place] [address]- 2545 Nov, [facility] [address] [id number] [place] [address]- 4595 Nov, [facility] [place] [facility] [address] [id number] [place] [address]- 4816 October, [facility] [place] [facility] [address] [id number] [place] [address]- 3079 October, [facility] [place] [facility] [address] [address] [id number] [place] [address] Sep, [facility] [place] [facility] [address] [id number] [place] [address] Sep, [facility] [place] [facility] [address] [id number] [place] [address] Aug, [facility] [place] [facility] [address] [id number] [place] [address] Jul, [facility] [place] [facility] [address] [id number] [place] [address] Jul, [facility] [place] [facility] [address] [id number] [place] [address] Jul, [facility] [place] [facility] [address] [id number] [place] [address] Jul, [facility] [place] [facility] [address] [id number] [place] [address] Jun, [facility] [place] [facility] [address] [id number], [place] [address] May, [facility] [place] [facility] [address] [id number] [place] [address] May, [facility] [place] [facility] [address] [id number] [place] [address] May, [facility] [place] [facility] [address] [id number] [place] [address] May, [facility] [place] [facility] [address] [id number] [place] [address] 08 May, 2011 [facility] [place] [facility] [address] [id number] [place] [address] 14 Apr, 2011 [facility] [place] [facility] [address] [id number] [place] [address] 14 Apr, 2011 [facility] [place] [facility] [address] [id number] [place] [address] 14 Apr, 2011 [facility] [place] [facility] [address] [id number] [place] [address] 07 Apr, 2011 [facility] [place] [facility] [address] [id number] [place] [address] 02 Apr, 2011 [facility] [place] [facility] [address] [id number] [place] [address] 26 Mar, 2011 [facility] [place] [facility] [address] [id number] [place] [address] 25 Mar, 2011 [facility] [place] [facility] [address] [id number] [place] [address] 14 Mar, 2011 [facility] [place] [facility] [address] [id number] [place] [address] 14 Mar, 2011 [facility] [place] [facility] [address] [id number] [place] [address] 13 Mar, 2011 [facility] [place] [facility] [address] [id number] [place] [address] 11 Mar, 2011 [facility] [place] [facility] [address] [id number] [place] [address] 11 Mar, 2011 [facility] [place] [facility] [address] [id number] [place] [address]- [address] 11 Mar, 2011 [facility] [place] [facility] [address] [id number] [place] [address] 14 Feb, 2011 [facility] [place] [facility] [address] [id number] [place] [address] May, [facility] [address] [facility] [id number] [place] [address] May, [facility] [address] [facility] [id number], [place] [address] May, [facility] [address] [id number], [place] [address] Apr, [facility] [address] [facility] [id number], [place] [address] Mar, IMMUNIZATIONS No Known Immunizations SOCIAL HISTORY [...]
--- OUTSIDE RECORDS SUMMARY | 2018-08-19 10:02 | XMS REPORT ---
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 Name Role Phone ROS WASHINGTONTA Unavailable PROBLEMS Type Condition ICD9-CM Code [id number] Code Onset Dates Condition Status SNOMED Code Problem Posttraumatic stress disorder F43.10 Active 28429209 Problem Generalized anxiety disorder F41.1 Active 04915808 Problem Panic disorder F41.0 Active 079196530 Problem Nausea R11.0 Active 136133061 Problem Anxiety F41.9 Active 38166533 Problem Hot flashes R23.2 Active 241915670 Problem Hematuria R31.9 Active 19946716 Problem Mixed hyperlipidemia E78.2 Active 156030919 Problem Low back pain with sciatica, sciatica laterality unspecified, unspecified back pain laterality, unspecified chronicity M54.40 Active 068162030 Problem Bipolar disorder, current episode mixed, moderate F31.62 Active 479182291 Problem Multiple fractures T07.XXXA Active 600230669 Problem Acute right-sided low back pain with right-sided sciatica M54.41 Active 68079981 Problem Gastroesophageal reflux disease, esophagitis presence not specified K21.9 Active 178043723 Problem Bipolar disorder F31.9 Active 74660729 Problem Primary insomnia F51.01 Active 235371341 Problem Mild intermittent asthma without complication J45.20 Active 138296855 Problem Hidradenitis suppurativa L73.2 Active 30174474 Problem History of IBS Z87.19 Active 35021544194239 Problem Essential hypertension I10 Active 05544098 Problem Genital herpes simplex, unspecified site A60.00 Active 65098169 Problem Vitamin D deficiency E55.9 Active 27670621 Problem Depression F32.9 Active 72707577 Problem Tobacco use Z72.0 Active 824238614 ALLERGIES Substance Reaction Event Type Date Status Paxil suicidal Drug Allergy Mar, Active Morphine Sulfate hives Drug Allergy Mar, Active Hydrocodone-Acetaminophen rash Drug Allergy Mar, Active Bactrim DS break out in blisters Drug Allergy Mar, Active Amoxicillin hives Drug Allergy Mar, Active Latex rash Non Drug Allergy Mar, Active Abilify 2 Mg Tablet anger Non Drug Allergy Mar, Active ENCOUNTERS Encounter Location Date Diagnosis [facility] [address] [address] Apr, [facility] [id number] [place] [address] 90970- 0324 Apr, [facility] [id number] [place] [address] 05542- 5470 Mar, [facility] [id number] [place] [address] 23796- 0034 Mar, Genital herpes simplex, unspecified site A60.00 [facility] [id number] [place] [address] 90026- 2877 Mar, [facility] [id number] [place] [address] 49613- 1960 Mar, [facility] [id number] [place] [address] 49138- 0942 Mar, Panic disorder F41.0 [facility] [id number] [place] [address] 60396- 5976 Mar, [facility] [id number] [place] [address] 78765- 5660 Mar, Genital herpes simplex, unspecified site A60.00 and Hidradenitis L73.2 [facility] [id number] [place] [address] 29640- 4866 13 Feb, 2018 Panic disorder F41.0 ; Bipolar disorder, current episode mixed, moderate F31.62 and Generalized anxiety disorder F41.1 [facility] [address], [place] [address] 06 Feb, 2018 Panic disorder F41.0 [facility] [id number] [place] [address] 17776- 4951 Jan, Genital herpes simplex, unspecified site A60.00 [facility] [id number] [place] [address] 48786- 1923 Jan, Panic disorder F41.0 [facility] [id number] [place] [address] 33212- 2503 Dec, Diaphoresis R61 and Excessive thirst R63.1 [facility] [id number] [place] [address] 83101- 7750 Dec, Panic disorder F41.0 ; Bipolar disorder, current episode mixed, moderate F31.62 and Generalized anxiety disorder F41.1 [facility] [id number] [place] [address] 30879- 4153 Dec, Panic disorder F41.0 [facility] [id number] [place] [address] 82743- 6992 Nov, Panic disorder F41.0 [facility] [id number] [place] [address] 96851- 5335 Nov, Panic disorder F41.0 ; Generalized anxiety disorder F41.1 and Bipolar disorder, current episode mixed, moderate F31.62 [facility] [id number] [place] [address] 41802- 0969 Nov, Panic disorder F41.0 [facility] [id number] [place] [address] 51960- 7278 Nov, Panic disorder F41.0 [facility] [id number] [place] [address] 77541- 1920 October, Panic disorder F41.0 [facility] [id number] [place] [address] 02856- 4247 October, Panic disorder F41.0 ; Generalized anxiety disorder F41.1 and Bipolar disorder, current episode mixed, moderate F31.62 [facility] [id number] [place] [address] 18533- 9514 October, Panic disorder F41.0 [facility] [id number] [place] [address] 90454- 3165 Sep, Hospital discharge follow-up Z09 ; Concussion without loss of consciousness, initial encounter S06.0X0A and Nausea R11.0 [facility] [id number] [place] [address] 09572- 9576 Sep, [facility] [id number] [place] [address] 59544- 1566 Sep, Panic disorder F41.0 [facility] [facility] [address] 75005- 4522 Sep, [facility] [id number] [place] [address] 65775- 3523 Sep, Well woman exam with routine gynecological exam Z01.419 ; Multiple fractures T07.XXXA ; Hot flashes R23.2 ; Essential hypertension I10 ; Mixed hyperlipidemia E78.2 ; Genital herpes simplex, unspecified site A60.00 ; Alkaline phosphatase elevation R74.8 ; Dysuria R30.0 ; Vitamin D deficiency E55.9 ; Tobacco use Z72.0 ; High risk sexual behavior Z72.51 and Encounter for immunization Z23 [facility] [id number] [place] [address] 86382- 5798 Aug, Panic disorder F41.0 ; Generalized anxiety disorder F41.1 and Bipolar disorder, current episode mixed, moderate F31.62 [facility] [id number] [place] [address] 04230- 5506 Aug, [facility] [id number] [place] [address] 35291- 8662 Jul, Panic disorder F41.0 ; Generalized anxiety disorder F41.1 and Bipolar disorder, current episode mixed, moderate F31.62 [facility] [id number] [place] [address] 41658- 1062 Jul, [facility] [id number] [place] [address] 25648- 4949 Jul, [facility] [id number] [place] [address] 51769- 3400 Jul, Effusion, right knee M25.461 ; Acute pain of right knee M25.561 and Acute pain of left knee M25.562 [facility] [id number] [place] [address] 34790- 7884 Jun, Bipolar disorder, current episode mixed, moderate F31.62 ; Generalized anxiety disorder F41.1 and Panic disorder F41.0 [facility] [id number] [place] [address] 00371- 2333 May, Bipolar disorder, current episode mixed, moderate F31.62 ; Generalized anxiety disorder F41.1 and Panic disorder F41.0 [facility] [id number] [place] [address] 42925- 0999 May, Bipolar disorder, current episode mixed, moderate F31.62 [facility] [id number] [place] [address] 03690- 0379 May, Bipolar disorder, current episode mixed, moderate F31.62 [facility] [id number] [place] [address] 08210- 6935 Apr, Bipolar disorder, current episode mixed, moderate F31.62 ; Generalized anxiety disorder F41.1 and Panic disorder F41.0 [facility] [id number] [place] [address] 02246- 8324 Mar, [facility] [id number] [place] [address] 18939- 8378 Mar, Bipolar disorder, current episode mixed, moderate F31.62 ; Generalized anxiety disorder F41.1 and Panic disorder F41.0 [facility] [id number] [place] [address] 06245- 5624 Feb, [facility] [id number] [place] [address] 46189- 3528 Feb, Posttraumatic stress disorder F43.10 [facility] [id number] [place] [address] 87237- 2256 20 Feb, 2017 Gastroesophageal reflux disease, esophagitis presence not specified K21.9 [facility] [id number] [place] [address] 89990- 2009 13 Feb, 2017 [facility] [address] 11556- 4997 06 Feb, 2017 Knee pain, right anterior M25.561 [facility] [id number] [place] [address] 77752- 6757 05 Feb, 2017 HSV (herpes simplex virus) infection B00.9 [facility] [id number] [place] [address] 88824- 0126 Feb, [facility] [id number] [place] [address] 05596- 0532 Jan, [facility] [id number] [place] [address] 51050- 5162 Jan, Posttraumatic stress disorder F43.10 [facility] [id number] [place] [address] 44366- 4355 Jan, Foot pain, left M79.672 [facility] [id number] [place] [address] 20655- 6939 Jan, [facility] [id number] [place] [address] 16766- 8239 Jan, Lumbar radiculopathy, acute M54.16 ; Muscle spasm of back M62.830 and Right hip pain M25.551 [facility] [id number] [place] [address] 60685- 6919 Jan, Lumbar radiculopathy, acute M54.16 [facility] [id number] [place] [address] 11947- 1271 Jan, [facility] [id number] [address]- 1381 Jan, [facility] [id number] [place] [address] 33495- 3324 Dec, Lumbar radiculopathy, acute M54.16 ; Acute renal insufficiency N28.9 and Muscle spasm of back M62.830 [facility] [id number] [place] [address] 65340- 9853 Dec, [facility] [id number] [place] [address] 72215- 6345 Dec, [facility] [id number] [place] [address] 46703- 7771 Dec, [facility] [id number] [place] [address] 39822 -5601 Dec, Low back pain with sciatica, sciatica laterality unspecified, unspecified back pain laterality, unspecified chronicity M54.40 and Acute right-sided low back pain with right-sided sciatica M54.41 [facility] [id number] [place] [address] 34621- 0450 Dec, Posttraumatic stress disorder F43.10 [facility] [id number] [place] [address] 71303- 3267 Dec, [facility] [id number] [place] [address] 76482- 0948 Dec, Pain in right thigh M79.651 and Acute right-sided low back pain without sciatica M54.5 [facility] [id number] [place] [address] 50251- 0763 Dec, Posttraumatic stress disorder F43.10 and Major depressive disorder, recurrent episode with anxious distress F33.9 [facility] [address], [place] [address]7216 Dec, [facility] [id number] [place] [address] 39824- 2876 Nov, [facility] [address], [place] [address]- 2994 October, [facility] [id number] [place] [address] 50611- 2713 October, [facility] [address], [place] [address]- 9637 October, Knee pain, right anterior M25.561 [facility] [id number] [place] [address] 73375- 0430 October, Knee pain, right anterior M25.561 [facility] [id number] [place] [address] 07048- 7385 October, [facility] [id number] [place] [address] 46636- 7120 October, [facility] [id number] [place] [address] 16342- 8442 October, [facility] [address], [place] [address]0719 Sep, [facility] [id number] [place] [address] 29067- 1825 Sep, [facility] [address], [place] [address]- 6259 Sep, Essential hypertension I10 [facility] [id number] [address]- 6259 Sep, Essential hypertension I10 [facility] [address], [place] [address]- 6294 Sep, [facility] [id number] [place] [address] 86293- 1498 10 Sep, 2016 Posttraumatic stress disorder F43.10 and Major depressive disorder, recurrent episode with anxious distress F33.9 [facility] [address], [place] [address]- 3735 07 Sep, 2016 Multiple fractures T14.8 ; Alkaline phosphatase elevation R74.8 and Vitamin D deficiency E55.9 [facility] [id number] [place] [address] 23402- 2621 Sep, [facility] [id number] [place] [address] 66179- 5277 Sep, Elevated serum creatinine R79.89 ; Fracture of foot, left, closed, initial encounter S92.902A and Alkaline phosphatase elevation R74.8 [facility] [id number] [place] [address] 14079- 0623 Sep, Elevated serum creatinine R79.89 and Essential hypertension I10 [place] [facility] [address] 07723- 1019 Sep, [facility] [address] 23201- 9381 Aug, Gastroesophageal reflux disease, esophagitis presence not specified K21.9 [facility] [address] 18815- 3957 Aug, Essential hypertension I10 ; Fracture of foot, left, closed , initial encounter S92.902A and Alkaline phosphatase elevation R74.8 [facility] [id number] [place] [address] 71028- 3818 Jul, Genital herpes simplex, unspecified site A60.00 [facility] [id number] [place] [address] 48658- 8183 Jul, Essential hypertension I10 [facility] [id number] [place] [address] 72732- 3130 Jun, Cough R05 and Wheezing R06.2 [facility] [address] 97621- 3975 Jun, Essential hypertension I10 [facility] [id number] [place] [address] 43039- 7661 May, Essential hypertension I10 [facility] [address] [place] [address] 41502- 2165 14 May, 2016 Posttraumatic stress disorder F43.10 and Major depressive disorder, recurrent episode with anxious distress F33.9 [facility] [address] [place] [address] 65444- 5278 Apr, [facility] [address] [place] [address] 14605- 4023 Apr, [facility] [id number] [place] [address] 45908- 3862 Apr, [facility] [id number] [place] [address] 76262- 9920 Mar, [facility] [id number] [place] [address] 23941- 5234 Feb, [facility] [id number] [place] [address] 54853- 3876 Jan, [facility] [id number] [place] [address] 29964- 9780 Jan, Essential hypertension I10 ; Mixed hyperlipidemia [...] foot S92.302A [facility] [address], [place] [address] -2768 Jan, Localized edema R60.0 [facility] [id number] [place] [address] 60518- 3818 Dec, [facility] [id number] [place] [address] 51088- 1924 Dec, [facility] [id number] [place] [address] 65849- 7831 Dec, [facility] [address] [place] [address] 93955 -5625 Dec, Cough R05 ; Tobacco dependence F17.200 and Costochondritis , acute M94.0 [facility] [id number] [place] [address] 89152- 4843 Dec, Major depression, recurrent F33.9 ; Bipolar disorder, unspecified F31.9 and Posttraumatic stress disorder F43.10 [facility] [id number] [place] [address] 19555- 2457 Nov, [facility] [id number] [place] [address] 92430- 6867 Nov, [facility] [id number] [place] [address] 40642- 5932 October, [facility] [id number] [place] [address] 88920 -9141 October, Acute upper respiratory infection, unspecified J06.9 [facility] [id number] [place] [address] 54159- 1668 October, [facility] [id number] [place] [address] 01576- 4108 Sep, Bipolar affective disorder, remission status unspecified F31.9 and Post-traumatic stress disorder F43.10 [facility] [id number] [place] [address] 83367- 1048 Sep, Bipolar disorder, unspecified F31.9 ; Posttraumatic stress disorder F43.10 and Major depression, recurrent F33.9 [facility] [id number] [place] [address] 21882- 3735 16 Aug, 2015 Edema R60.9 ; Fatigue R53.83 and Polydipsia R63.1 [facility] [id number] [place] [address] 14815- 1408 Aug, [facility] [address] 67471- 7733 Aug, [facility] [address], [place] [address]- 8261 Jul, [facility] [id number] [place] [address] 15049- 0323 Jul, [facility] [address] [place] [address] 52258- 5131 Jun, [facility] [id number] [place] [address] 80646- 4958 Jun, [facility] [id number] [place] [address] 73386- 4828 Jun, [facility] [id number] [place] [address] 70254- 0347 Jun, [facility] [id number] [place] [address] 14202- 5206 May, Mixed hyperlipidemia E78.2 [place] [id number] [place] [address] 26196- 9306 May, Well woman exam Z01.419 ; History of herpes simplex infection Z86.19 ; Papanicolaou smear Z12.4 ; History of depression Z86.59 ; History of anxiety Z86.59 ; Lipoma of other specified sites D17.79 ; Hidradenitis suppurativa L73.2 ; Routine screening for STI (sexually transmitted infection) Z11.3 and Tobacco use Z72.0 [facility] [id number] [place] [address] 21710- 9690 May, Hematuria R31.9 ; Essential hypertension I10 ; Pure hypercholesterolemia E78.0 and Hidradenitis L73.2 [place] [id number] [place] [address] 86249- 7229 May, Upper respiratory symptom R09.89 and Allergic rhinitis J30.9 [place] [id number] [place] [address] 61891- 0297 May, [facility] [address], [place] [address]- 9819 May, [facility] [id number] [place] [address] 03606- 7070 May, Bipolar disorder, unspecified F31.9 ; Posttraumatic stress disorder F43.10 and Major depression, recurrent F33.9 [facility] [id number] [place] [address] 35779- 3540 May, [facility] [id number] [place] [address] 49220- 0310 May, [facility] [id number] [place] [address] 18670- 1257 Apr, [facility] [id number] [place] [address] 59072- 6562 Apr, [facility] [id number] [place] [address] 96038- 2255 Mar, [facility] [address] [place] [address] 44784- 2476 Mar, [facility] [id number] [place] [address] 93115- 3731 Mar, [facility] [address], [place] [address]- 3808 18 Feb, 2015 Major depressive disorder, recurrent episode, moderate 296.32 and Post traumatic stress disorder (PTSD) 309.81 [facility] [address], [place] [address]- 1568 10 Feb, 2015 [facility] [id number] [place] [address] 55667- 3585 08 Feb, 2015 [facility] [id number] [place] [address] 17727- 0210 Jan, Cough 786.2 [facility] [id number] [place] [address] 68799- 3186 Jan, Depression, major, recurrent, moderate 296.32 and Post traumatic stress disorder (PTSD) 309.81 [facility] [address], [place] [address]- 7498 Jan, [facility] [id number] [place] [address] 88759- 3083 Dec, [facility] [address] [place] [address] 62535- 8707 Dec, Generalized anxiety disorder 300.02 and Depression, major, recurrent, moderate 296.32 [facility] [address] [place] [address] 24661- 2439 Dec, [facility] [id number] [place] [address] 70269- 5714 Dec, High risk medication use V58.69 [facility] [id number] [place] [address] 63988- 2920 Dec, High risk medication use V58.69 [facility] [address] [place] [address] 81983- 3566 Dec, [facility] [id number] [place] [address] 60736- 9602 Nov, Generalized anxiety disorder 300.02 and Major depressive disorder, recurrent episode, moderate 296.32 [facility] [id number] [place] [address] [id number] Nov, Dental examination V72.2 [facility] [id number] [place] [address] [id number] Nov, Dental examination V72.2 [facility] [address], [place] [address]- 5216 Nov, [facility] [id number] [place] [address] [id number] Nov, Dental examination V72.2 [facility] [id number] [place] [address] [id number] Nov, Dental examination V72.2 [facility] [address] 0635 October, Major depressive disorder, recurrent episode, moderate 296.32 and Generalized anxiety disorder 300.02 [facility] [address] [id number] [place] [address] October, [facility] [address] [facility] [id number] [address] October, [facility] [address] [facility] [id number] [address] October, [facility] [id number] [place] [address], [place] [address] Sep, [facility] [id number] [address] Sep, [facility] [id number], [place] [address] Aug, [facility] [id number] [address] Aug, [facility] [id number] [place] [address] Aug, [facility] [address] [id number], [place] [address] Aug, [facility] [facility] [id number] [address] Aug, [facility] [address] [id number], [place] [address] Aug, [facility] [id number], [place] [address] Aug, [facility] [address] [facility] [id number] [address] 16 Jul, 2014 [facility] [id number], [place] [address] Jul, [facility] [place] [facility] [address] [id number] [place] [address] Jul, 2014 [facility] [place] [facility] [address] [id number] [place] [address] Jul, 2014 [facility] [place] [facility] [address] [id number] [place] [address]226 Jul, 2014 [facility] [place] [facility] [address] [id number] [place] [address]- 6[address] Jul, 2014 [facility] [place] [facility] [address] [id number] [place] [address] Jul, [facility] [place] [facility] [address] [id number] [place] [address]66 Jul, [facility] [place] [facility] [address] [id number] [place] [address]- 1322 Jul, [facility] [place] [facility] [address] [id number] [place] [address]- 1572 Jun, [facility] [place] [facility] [address] [id number] [place] [address]- 9664 Jun, [facility] [place] [facility] [address] [id number] [place] [address]- 8394 Jun, [facility] [place] [facility] [address] [id number] [place] [address]- 1275 Jun, [facility] [place] [facility] [address] [id number] [place] [address]- 4894 Jun, [facility] [place] [facility] [address] [id number] [place] [address]- 1297 Jun, [facility] [place] [facility] [address] [facility] [id number] [place] [address]- 6877 Jun, [facility] [place] [facility] [address] [facility] [id number] [place] [address]- 1560 Jun, [facility] [place] [facility] [address] [id number] [place] [address]- 1003 Jun, [facility] [address] [id number] [place] [address]- 1841 Jun, [facility] [place] [facility] [address] [id number] [place] [address]- 2697 Jun, [facility] [address] [id number] [place] [address]- 1313 Jun, [facility] [address] [id number] [place] [address]- 3976 Jun, [facility] [address] [id number] [place] [address]- 7020 Jun, [facility] [address] [id number] [place] [address]- 5006 Jun, [facility] [address] [id number] [place] [address]- 3641 Jun, [facility] [address] [id number] [place] [address]- 6339 Jun, [facility] [address] [id number] [place] [address]- 4198 Jun, [facility] [address] [id number] [place] [address]- 4446 Jun, [facility] [place] [facility] [address] [id number] [place] [address]- 8762 Jun, [facility] [place] [facility] [address] [id number] [place] [address]- 1000 Jun, [facility] [place] [facility] [address] [id number] [place] [address]- 5050 Jun, [facility] [place] [facility] [address] [id number] [place] [address]- 7539 Jun, [facility] [place] [facility] [address] [id number] [place] [address]- 6849 Jun, [facility] [place] [facility] [address] [id number] [place] [address]- 5596 Jun, [facility] [place] [facility] [address] [id number] [place] [address]- 2034 May, [facility] [place] [facility] [address] [id number] [place] [address]- 1335 May, [facility] [place] [facility] [address] [id number] [place] [address]- 5429 May, [facility] [place] [facility] [address] [id number] [place] [address]- 8624 May, [facility] [place] [facility] [address] [id number] [place] [address]- 7836 May, [facility] [place] [facility] [address] [id number] [place] [address]- 5510 May, [facility] [place] [facility] [address] [id number] [place] [address]- 2972 May, [facility] [place] [facility] [address] [id number] [place] [address]- 1347 May, [facility] [place] [facility] [address] [id number] [place] [address]- 2228 May, [facility] [place] [facility] [address] [id number] [place] [address]- 7248 May, [facility] [place] [facility] [address] [id number] [place] [address]- 6612 May, [facility] [place] [facility] [address] [id number] [place] [address]- 8362 May, [facility] [place] [facility] [address] [id number] [place] [address] May, [facility] [place] [facility] [address] [id number] [place] [address]- 4152 May, [facility] [place] [facility] [address] [id number], [place] [address]- 2174 May, [facility] [place] [facility] [address] [id number] [place] [address]- 2021 May, [facility] [place] [facility] [address] [id number] [place] [address]- 7182 May, [facility] [place] [facility] [address] [facility] [id number] [place] [address]- 5056 May, [facility] [place] [facility] [address] [id number] [place] [address]- 8202 Apr, [facility] [place] [facility] [address] [id number] [place] [address]- 5728 Apr, [facility] [place] [facility] [address] [id number] [place] [address]- 1513 Apr, [facility] [place] [facility] [address] [facility] [id number] [place] [address]- 2020 Apr, [facility] [place] [facility] [address] [facility] [id number] [place] [address]- 6194 Apr, [facility] [place] [facility] [address] [facility] [id number] [place] [address]- 3823 Apr, [facility] [place] [facility] [address] [facility] [id number] [place] [address]- 1036 Apr, [facility] [place] [facility] [address] [facility] [id number], [place] [address]- 8177 Apr, [facility] [place] [facility] [address] [id number], [place] [address]- 8870 Mar, [facility] [place] [facility] [address] [id number] [place] [address]- 5689 Mar, [facility] [place] [facility] [address] [facility] [id number] [place] [address]- 2376 Feb, [facility] [place] [facility] [address] [facility] [id number] [place] [address]- 4429 Feb, [facility] [place] [facility] [address] [id number] [place] [address]- 2391 12 Feb, 2013 [facility] [place] [facility] [address] [id number] [place] [address]- 2926 12 Feb, 2013 [facility] [place] [facility] [address] [id number] [place] [address]- 2976 12 Feb, 2013 [facility] [place] [facility] [address] [id number] [place] [address]- 9894 12 Feb, 2013 [facility] [place] [facility] [address] [id number] [place] [address]- 5537 Feb, 2013 [facility] [place] [facility] [address] [id number] [place] [address]- 0302 Feb, 2013 [facility] [place] [facility] [address] [id number] [place] [address]- 2963 08 Feb, 2014 [facility] [place] [facility] [address] [id number] [place] [address]- 1205 Feb, 2013 [facility] [place] [facility] [address] [id number] [place] [address]- 5817 Jan, [facility] [place] [facility] [address] [id number] [place] [address]- 0380 Jan, [facility] [place] [facility] [address] [id number] [place] [address]- 3629 Jan, [facility] [place] [facility] [address] [id number] [place] [address]- 8398 Jan, [facility] [place] [facility] [address] [id number] [place] [address]- 2544 Jan, [facility] [place] [facility] [address] [id number] [place] [address]- 3149 Jan, [facility] [place] [facility] [address] [id number] [place] [address]- 3026 Jan, [facility] [place] [facility] [address] [id number] [place] [address]- 8656 Jan, [facility] [place] [facility] [address] [id number] [place] [address]- 7356 Jan, [facility] [place] [facility] [address] [id number] [place] [address]- 3677 Jan, [facility] [place] [facility] [address] [id number] [place] [address]- 9688 Jan, [facility] [place] [facility] [address] [id number] [place] [address]- 5959 Jan, [facility] [place] [facility] [address] [id number] [place] [address]- 4858 Jan, [facility] [place] [facility] [address] [id number] [place] [address]- 3124 Dec, [facility] [place] [facility] [address] [id number] [place] [address]- 5398 Dec, [facility] [place] [facility] [address] [id number] [place] [address]- 1299 Dec, [facility] [place] [facility] [address] [id number] [place] [address]- 6731 Dec, [facility] [place] [facility] [address] [id number] [place] [address]- 9020 Dec, [facility] [place] [facility] [address] [id number] [place] [address]- 5560 Dec, [facility] [place] [facility] [address] [id number] [place] [address]- 6615 Dec, [facility] [place] [facility] [address] [id number] [place] [address]- 7035 Dec, [facility] [place] [facility] [address] [id number] [place] [address]- 0102 Dec, [facility] [place] [facility] [address] [id number] [place] [address]- 9699 Dec, [facility] [place] [facility] [address] [id number] [place] [address]- 0154 Dec, [facility] [place] [facility] [address] [id number] [place] [address]- 9415 Dec, [facility] [place] [facility] [address] [id number] [place] [address]- 1341 Dec, [facility] [place] [facility] [address] [id number] [place] [address]- 9516 Dec, [facility] [place] [facility] [address] [id number] [place] [address]- 9585 Nov, [facility] [place] [facility] [address] [id number] [place] [address]- 7544 Nov, [facility] [place] [facility] [address] [id number] [place] [address]- 0145 Nov, [facility] [place] [facility] [address] [id number] [place] [address]- 4427 Nov, [facility] [place] [facility] [address] [id number] [place] [address]- 4518 Nov, [facility] [place] [facility] [address] [id number] [place] [address]- 8812 Nov, [facility] [place] [facility] [address] [id number] [place] [address]- 9981 Nov, [facility] [place] [facility] [address] [id number] [place] [address]- 5499 Nov, [facility] [place] [facility] [address] [id number] [place] [address]- 5095 October, [facility] [place] [facility] [address] [id number] [place] [address]- 0430 October, [facility] [place] [facility] [address] [id number] [place] [address]- 5813 October, [facility] [place] [facility] [address] [id number] [place] [address]- 9823 October, [facility] [place] [facility] [address] [id number] [place] [address]- 2179 October, [facility] [place] [facility] [address] [id number] [place] [address]- 8237 October, [facility] [place] [facility] [address] [id number] [place] [address]- 8346 October, [facility] [place] [facility] [address] [id number] [place] [address]- 3412 October, [facility] [place] [facility] [address] [id number] [place] [address]- 5329 October, [facility] [place] [facility] [address] [id number] [place] [address]- 9344 October, [facility] [place] [facility] [address] [id number] [place] [address]- 1734 October, [facility] [place] [facility] [address] [id number] [place] [address]- 3982 October, [facility] [place] [facility] [address] [id number] [place] [address]- 1790 October, [facility] [place] [facility] [address] [id number] [place] [address]- 4953 October, [facility] [place] [facility] [address] [id number] [place] [address]- 2087 October, [facility] [place] [facility] [address] [id number] [place] [address]- 6145 October, [facility] [place] [facility] [address] [id number] [place] [address]- 1426 Sep, [facility] [place] [facility] [address] [id number] [place] [address]- 6823 Sep, [facility] [place] [facility] [address] [id number] [place] [address]- 9910 Sep, [facility] [place] [facility] [address] [id number] [place] [address]- 8249 Sep, [facility] [place] [facility] [address] [id number] [place] [address]- 7192 Sep, [facility] [place] [facility] [address] [id number] [place] [address]- 4858 Sep, [facility] [place] [facility] [address] [id number] [place] [address]- 0886 Sep, [facility] [place] [facility] [address] [id number] [place] [address]- 9692 Sep, [facility] [place] [facility] [address] [id number] [place] [address]- 9545 Sep, [facility] [place] [facility] [address] [id number] [place] [address]- 5092 Sep, [facility] [place] [facility] [address] [id number] [place] [address]- 3278 Sep, [facility] [place] [facility] [address] [id number] [place] [address]- 1173 Sep, [facility] [place] [facility] [address] [id number] [place] [address]- 1305 Sep, [facility] [place] [facility] [address] [id number] [place] [address]- 8284 Sep, [facility] [place] [facility] [address] [id number] [place] [address]- 9649 Sep, [facility] [place] [facility] [address] [id number] [place] [address]- 6330 Sep, [facility] [place] [facility] [address] [id number] [place] [address]- 4937 Sep, [facility] [place] [facility] [address] [id number] [place] [address]- 7586 Sep, [facility] [place] [facility] [address] [id number] [place] [address]- 5683 Sep, [facility] [place] [facility] [address] [id number] [place] [address]- 2563 Aug, [facility] [place] [facility] [address] [id number] [place] [address]- 3520 Aug, [facility] [place] [facility] [address] [id number] [place] [address]- 4536 Aug, [facility] [place] [facility] [address] [id number] [place] [address]- 6570 Aug, [facility] [place] [facility] [address] [id number] [place] [address]- 5878 Jul, [facility] [place] [facility] [address] [id number] [place] [address]- 5345 Jul, [facility] [place] [facility] [address] [facility] [id number] [place] [address]- 3783 Jul, [facility] [place] [facility] [address] [id number] [place] [address]- 1425 Jul, [facility] [place] [facility] [address] [id number] [place] [address]- 0875 Jul, [facility] [place] [facility] [address] [facility] [id number] [place] [address]- 6066 Jul, [facility] [place] [facility] [address] [facility] [id number] [place] [address]- 0935 Jul, [facility] [place] [facility] [address] [facility] [id number] [place] [address]- 7444 Jul, [facility] [place] [facility] [address] [id number] [place] [address]- 6740 Jul, [facility] [place] [facility] [address] [id number] [place] [address]- 0896 Jul, [facility] [place] [facility] [address] [facility] [id number] [place] [address]- 0312 Jul, [facility] [place] [facility] [address] [facility] [id number], [place] [address]- 6442 Jul, [facility] [address] [id number] [place] [address]- 9387 Jun, [facility] [place] [facility] [address] [id number] [place] [address]- 6382 Jun, [facility] [place] [facility] [address] [id number] [place] [address]- 8059 Jun, [facility] [place] [facility] [address] [id number] [place] [address]- 3375 Jun, [facility] [place] [facility] [address] [id number] [place] [address]- 5512 Jun, [facility] [place] [facility] [address] [id number] [place] [address]- 6802 Jun, [facility] [place] [facility] [address] [facility] [id number] [place] [address]- 0922 May, [facility] [place] [facility] [address] [id number] [place] [address]- 1412 May, [facility] [place] [facility] [address] [id number] [place] [address]- 3897 Apr, [facility] [place] [facility] [address] [facility] [id number] [place] [address]- 1428 Apr, [facility] [place] [facility] [address] [id number], [place] [address]- 1499 Apr, [facility] [place] [facility] [address] [id number], [place] [address]- 0759 Apr, [facility] [place] [facility] [address] [id number] [place] [address]- 6329 Apr, [facility] [place] [facility] [address] [id number] [place] [address]- 1729 Apr, [facility] [place] [facility] [address] [facility] [id number] [place] [address]- 4162 17 Apr, 2013 [facility] [place] [facility] [address] [id number] [place] [address]- 9308 15 Apr, 2013 [facility] [place] [facility] [address] [id number] [place] [address]- 2857 15 Apr, 2013 [facility] [place] [facility] [address] [id number] [place] [address]- 7554 15 Apr, 2013 [facility] [place] [facility] [address] [id number] [place] [address]- 2375 15 Apr, 2013 [facility] [place] [facility] [address] [id number] [place] [address]- 9905 13 Apr, 2013 [facility] [place] [facility] [address] [id number] [place] [address]- 9348 Apr, [facility] [place] [facility] [address] [id number] [place] [address]- 1705 31 Mar, 2013 [facility] [place] [facility] [address] [id number] [place] [address]- 4588 31 Mar, 2013 [facility] [place] [facility] [address] [id number] [place] [address]- 9140 25 Mar, 2013 [facility] [place] [facility] [address] [id number] [place] [address]- 5335 25 Mar, 2013 [facility] [place] [facility] [address] [id number] [place] [address]- 3950 17 Mar, 2013 [facility] [place] [facility] [address] [id number] [place] [address] 17 Mar, 2013 [facility] [place] [facility] [address] [id number] [place] [address] 14 Mar, 2013 [facility] [place] [facility] [address] [id number] [place] [address]70 14 Mar, 2013 [facility] [place] [facility] [address] [id number] [place] [address] 11 Mar, 2013 [facility] [place] [facility] [address] [id number] [place] [address] Mar, [facility] [place] [facility] [address] [id number] [place] [address] 02 Mar, 2013 [facility] [place] [facility] [address] [id number] [place] [address] 30 Feb, 2013 [facility] [place] [facility] [address] [id number] [place] [address] 28 Feb, 2013 [facility] [place] [facility] [address] [id number] [place] [address] 27 Feb, 2013 [facility] [place] [facility] [address] [id number] [place] [address] 27 Feb, 2013 [facility] [place] [facility] [address] [id number] [place] [address] 20 Feb, 2013 [facility] [place] [facility] [address] [id number] [place] [address] 10 Feb, 2013 [facility] [place] [facility] [address] [id number] [place] [address] Jan, [facility] [place] [facility] [address] [id number] [place] [address] 39[address] Jan, [facility] [place] [facility] [address] [id number] [place] [address] Dec, [facility] [place] [facility] [address] [id number] [address] Dec, [facility] [place] [facility] [address] [id number], [place] [address] 15 Dec, 2012 [facility] [place] [facility] [address] [id number] [place] [address] Dec, [facility] [place] [facility] [address] [id number], [place] [address] Nov, [facility] [place] [facility] [address] [id number] [place] [address] 8814 14 Nov, 2012 [facility] [place] [facility] [address] [id number] [place] [address]- 3651 13 Nov, 2012 [facility] [address] [id number] [place] [address] October, [facility] [address] [id number] [place] [address] October, [facility] [address] [id number] [place] [address] October, [facility] [address] [id number] [place] [address] October, [facility] [address] [id number] [place] [address] October, [facility] [address] [id number] [place] [address] 359[address] Sep, [facility] [address] [id number] [place] [address] Sep, [facility] [address] [id number] [place] [address] Aug, [facility] [address] [id number] [place] [address] 3514 Aug, [facility] [address] [id number] [place] [address] 4296 Aug, [facility] [address] [id number] [place] [address] 2770 Aug, [facility] [address] [id number] [place] [address] 2549 Aug, [facility] [address] [id number] [place] [address] 4567 Jul, [facility] [place] [facility] [address] [id number] [place] [address] Jul, [facility] [address] [id number] [place] [address]- [address] Jul, [facility] [place] [facility] [address] [id number] [place] [address]- 6569 04 Jul, 2012 [facility] [place] [facility] [address] [id number] [place] [address] Jun, [facility] [place] [facility] [address] [id number] [place] [address] Jun, [facility] [place] [facility] [address] [id number] [place] [address] Jun, [facility] [address] [id number] [place] [address] 9690 Jun, [facility] [place] [facility] [address] [id number] [place] [address]- 4035 Jun, [facility] [place] [facility] [address] [id number] [place] [address]- 3507 Jun, [facility] [address] [id number] [place] [address] 6099 Jun, [facility] [place] [facility] [address] [id number] [place] [address]- [address]28 Jun, [facility] [address] [id number] [place] [address]- 0204 Jun, [facility] [place] [facility] [address] [id number] [place] [address] 8821 Jun, [facility] [place] [facility] [address] [id number], [place] [address] Jun, [facility] [place] [facility] [address] [id number] [place] [address] 6671 May, [facility] [place] [facility] [address] [id number] [place] [address]300 May, [facility] [place] [facility] [address] [id number] [place] [address]- 26[address] Apr, [facility] [place] [facility] [address] [id number] [place] [address] 2053 Apr, [facility] [place] [facility] [address] [id number] [place] [address] Mar, [facility] [place] [facility] [address] [id number] [place] [address] 46[address] Mar, [facility] [place] [facility] [address] [id number] [place] [address] 6147 Mar, [facility] [place] [facility] [address] [id number] [place] [address] 9790 Mar, [facility] [place] [facility] [address] [id number] [place] [address] 2517 Mar, [facility] [place] [facility] [address] [id number] [place] [address] 6454 Mar, [facility] [place] [facility] [address] [facility] [id number] [place] [address] 9062 Mar, [facility] [place] [facility] [address] [facility] [id number] [place] [address] 0458 Mar, [facility] [place] [facility] [address] [facility] [id number] [place] [address]- 9713 Mar, [facility] [place] [facility] [address] [facility] [id number] [place] [address]- 7274 Feb, [facility] [place] [facility] [address] [facility] [id number] [place] [address]- 6163 Jan, [facility] [place] [facility] [address] [facility] [id number] [place] [address] 2547 Jan, [facility] [place] [facility] [address] [id number] [place] [address]- 7987 Dec, [facility] [place] [facility] [address] [facility] [id number] [place] [address] 2546 Dec, [facility] [place] [facility] [address] [facility] [id number] [place] [address]- 2546 Dec, [facility] [place] [facility] [address] [id number] [place] [address]- 75[address] 08 Nov, 2011 [facility] [facility] [address] [id number] [place] [address] Nov, [facility] [place] [facility] [address] [id number] [place] [address] Nov, [facility] [place] [facility] [address] [id number] [place] [address] Nov, [facility] [place] [facility] [address] [id number] [place] [address] October, [facility] [place] [facility] [address] [id number] [place] [address] October, [facility] [place] [facility] [address] [facility] [id number] [place] [address] Sep, [facility] [place] [facility] [address] [id number] [place] [address] Sep, [facility] [place] [facility] [address] [id number] [place] [address] Aug, [facility] [place] [facility] [address] [id number] [place] [address] Jul, [facility] [address] [facility] [id number] [place] [address] Jul, [facility] [place] [facility] [address] [id number] [place] [address] Jul, [facility] [place] [facility] [address] [id number] [place] [address] Jul, [facility] [place] [facility] [address] [id number] [place] [address] Jun, [facility] [place] [facility] [address] [id number] [place] [address] May, [facility] [place] [facility] [address] [id number], [place] [address] 15 May, 2011 [facility] [place] [facility] [address] [id number] [place] [address] 15 May, 2011 [facility] [place] [facility] [address] [id number] [place] [address] 13 May, 2011 [facility] [place] [facility] [address] [id number] [place] [address] 08 May, 2011 [facility] [place] [facility] [address] [id number], [place] [address] 14 Apr, 2011 [facility] [place] [facility] [address] [id number] [place] [address] 14 Apr, 2011 [facility] [place] [facility] [address] [id number] [place] [address] 14 Apr, 2011 [facility] [facility] [address] [id number] [place] [address] 07 Apr, 2011 [facility] [facility] [address] [id number], [place] [address] 02 Apr, 2011 [facility] [facility] [address] [id number], [place] [address] 26 Mar, 2011 [facility] [facility] [address] [id number], [place] [address] 25 Mar, 2011 [facility] [address] [id number], [place] [address] 14 Mar, 2011 [facility] [facility] [address] [id number], [place] [address] 14 Mar, 2011 [facility] [facility] [address] [id number], [place] [address] 13 Mar, 2011 [facility] [address] [id number], [place] [address] 11 Mar, 2011 [facility] [facility] [address] [id number], [place] [address] 11 Mar, 2011 [facility] [address] [id number] [address] Mar, [facility] [address] [id number], [place] [address] Feb, [facility] [id number] [id number] May, [facility] [address] [id number], [place] [address] May, [facility] [id number], [place] [address] May, [facility] [id number] [address] Apr, [facility] [address] [id number], [place] [address] Mar, IMMUNIZATIONS No Known Immunizations SOCIAL HISTORY Never Assessed REASON FOR VISIT Herpes outbreak check up Kari DOMINGUEZ PLAN OF CARE Activity Details Follow Up if not improving with PCP or reg follow up Reason: VITAL SIGNS Height 69 in 2018-04-06 Weight 261.0 lbs 2018-04-06 Temperature 97.1 degrees Fahrenheit 2018-04-06 Heart Rate 83 bpm 2018-04-06 Respiratory Rate 18 2018-04-06 BMI 38.54 kg/m2 2018-04-06 Blood pressure systolic 136 mmHg 2018-04-06 Blood pressure diastolic 82 mmHg 2018-04-06 MEDICATIONS Medication Instructions Dosage Frequency Start Date End Date Duration Status Ibuprofen 800 MG TAKE ONE TABLET BY MOUTH THREE TIMES DAILY WITH FOOD OR MILK 30 Active Neurontin 300 MG Orally two times a day 3 capsules 12h Aug, 30 days Active Effexor XR 150 MG Orally Once a day 1 capsule 24h 30 Active Alprazolam 2 MG Orally daily, part of taper 1 tablet 30 days Active Hydrochlorothiazide 25 MG Orally Once a day MUST COME IN FOR BP CHECK take 1/ 2 tablet Active Silvadene 1 % Externally Once a day 1 application to affected area 24h Mar, Active Omeprazole 20 mg TAKE ONE CAPSULE BY MOUTH ONCE DAILY 30 days Active Xanax 0.25 MG Orally daily 3 tablet 24h Mar, 30 days Active Acyclovir 400 mg Orally 2 times a day TAKE ONE TABLET 12h 30 Active Lisinopril 40 mg TAKE ONE [...]
[2018-08-19 10:03] LABS: ALKALINE PHOSPHATASE 114 U/L (40-136); BILIRUBIN,TOTAL 0.4 MG/DL (0.1-1.0); BUN/CREATININE RATIO 27; CALCIUM 8.9 MG/DL (8.5-10.1); CARBON DIOXIDE 16 MMOL/L (21-32); CHLORIDE 99 MMOL/L (98-107); CREATININE SERUM 0.59 MG/DL (0.60-1.30); GFR ESTIMATED > 60; GLUCOSE 129 MG/DL (70-105); POTASSIUM 4.3 MMOL/L (3.6-5.0); SODIUM 135 MMOL/L (135-145)
[2018-08-19 10:04] LABS: ALANINE AMINOTRANSFERASE 30 U/L (0-55); ALBUMIN 4.5 GM/DL (3.2-4.5); LIPASE 12 U/L (8-78)
[2018-08-19 10:05] LABS: ATYPICAL LYMPHOCYTES 2 %; BAND NEUTROPHILS 10 %; LYMPHOCYTES % (MANUAL) 5 %; MONOCYTES % (MANUAL) 5 %; NEUTROPHILS % (MANUAL) 78 %
--- OUTSIDE RECORDS SUMMARY | 2018-08-19 10:09 | XMS REPORT | Continuity of Care Document ---
Author Author [facility] Address Unknown Phone Unavailable Allergies Active [...] Latex OA N/A N/A 04/26/2013 Yes amoxicillin [id number] Drug Allergy Unknown N/A 07/31/2014 Yes hydrocodone [id number] Drug Allergy Unknown N/A 07/31/2014 Yes morphine [id number] Drug Allergy Unknown N/A 07/31/2014 Yes paroxetine [id number] Drug Allergy Unknown N/A 07/31/2014 Yes Sulfa (Sulfonamide Antibiotics) [id number] Drug Allergy Unknown N/A 2014 Yes sulfamethoxazole [id number] Drug Allergy Unknown N/A 07/31/2014 Yes trimethoprim [id number] Drug Allergy Unknown N/A 07/31/2014 Yes Abilify 2 mg tablet Drug Allergy N/A N/A 08/22/2014 Yes acetaminophen [id number] Drug Allergy Moderate nausea 12/21/2016 Yes codeine [id number] Drug Allergy Moderate nausea 12/21/2016 Yes hydrocodone [id number] Drug Allergy Moderate nausea 12/21/2016 Yes tramadol [id number] Drug Allergy Unknown itching 12/21/2016 Yes cyclobenzaprine [id number] Drug Allergy Unknown N/A 01/15/2017 Medications There [...] 884.0 WOUND OPEN UPPER LIMB 12/25/2007 GIBSON BAILING MACHINE OPERATOR, MANAV WHITEH 682.9 CELLULITIS AND ABSCESS OF UNSPECIFIED SITES 12/25/2007 GIBSON BAILING MACHINE OPERATOR, MANAV LONG 884.0 WOUND OPEN UPPER LIMB 12/25/2007 GIBSON BAILING MACHINE OPERATOR, MANAV LONG 682.9 CELLULITIS AND ABSCESS OF UNSPECIFIED SITES 12/25/2007 GIBSON BAILING MACHINE OPERATOR, MANAV WHITEH 884.0 WOUND OPEN UPPER LIMB [...] K 884.0 WOUND OPEN UPPER LIMB 12/25/2007 TEOFIOL FELICIANO MD 682.9 CELLULITIS AND ABSCESS OF UNSPECIFIED SITES 12/25/2007 TEOFILO FELICIANO MD 884.0 Wound Open Upper Limb 12/25/2007 DIMPLE PEÑALOZA DO 682.9 CELLULITIS AND ABSCESS OF UNSPECIFIED SITES 12/25/2007 DIMPLE PEÑALOZA DO K 884.0 Wound Open Upper Limb 12/25/2007 PAIGE HECK MANAV WHITEH 682.9 CELLULITIS AND ABSCESS OF UNSPECIFIED SITES 12/25/2007 GIBSON APRN, MANAV ALVES 884.0 Wound Open Upper Limb 12/25/2007 RAMONMAU Duopnt APRN A 682.9 CELLULITIS AND ABSCESS OF UNSPECIFIED SITES 12/25/2007 RAMONMILADY Dupont APRNIDI A 884.0 Wound Open Upper Limb 12/25/2007 PAIGE FARRELLCresencio MANAV ALEVS 682.9 CELLULITIS AND ABSCESS OF UNSPECIFIED SITES [...] 884.0 Wound Open Upper Limb 12/25/2007 CHRISTEL GUIDE RAIL CLEANER, CARLOS M 682.9 CELLULITIS AND ABSCESS OF UNSPECIFIED SITES 12/25/2007 CHRISTEL GUIDE RAIL CLEANER, CARLOS M 884.0 Wound Open Upper Limb 12/25/2007 CHRISTEL GUIDE RAIL CLEANER, CARLOS M 682.9 CELLULITIS AND ABSCESS OF UNSPECIFIED SITES 12/25/2007 CHRISTEL GUIDE RAIL CLEANER, CARLOS M 884.0 Wound Open Upper Limb 12/25/2007 CHRISTEL GUIDE RAIL CLEANER, CARLOS M 682.9 CELLULITIS AND ABSCESS OF UNSPECIFIED SITES 12/25/2007 CHRISTEL GUIDE RAIL CLEANER, CARLOS M 884.0 Wound Open Upper Limb 12/25/2007 CHRISTEL GUIDE RAIL CLEANER, CARLOS M 682.9 CELLULITIS AND ABSCESS OF UNSPECIFIED SITES 12/25/2007 CHRISTEL GUIDE RAIL CLEANER, CARLOS M 884.0 Wound Open Upper Limb 02/10/2010 Ot 724.2 LUMBAGO 05/27/2010 296.90 MO MOOD DIS NOS 05/27/2010 301.83 PD BORDERLINE 05/27/2010 296.90 MO MOOD DIS NOS 05/27/2010 301.83 PD BORDERLINE 05/27/2010 296.90 MO MOOD DIS NOS 05/27/2010 301.83 PD BORDERLINE 05/27/2010 MANAV GIBSON APRN 296.90 MO MOOD DIS NOS 05/27/2010 MANAV GIBSON APRN 301.83 PD BORDERLINE 05/27/2010 MANAV GIBSON APRN LONG 296.90 MO MOOD DIS NOS 05/27/2010 MANAV GIBSON APRN LONG 301.83 PD BORDERLINE 05/27/2010 296.90 MO [...] DIMPLE K 301.83 PD BORDERLINE 05/27/2010 GIBSON BAILING MACHINE OPERATOR, MANAV WHITEH 296.90 MO MOOD DIS NOS 05/27/2010 GIBSON BAILING MACHINE OPERATOR, MANAV WHITEH 301.83 PD BORDERLINE 05/27/2010 RAMON BAILING MACHINE OPERATOR, MAU A 296.90 MO MOOD DIS NOS 05/27/2010 RAMON BAILING MACHINE OPERATOR, MAU A 301.83 PD BORDERLINE 05/27/2010 GIBSON BAILING MACHINE OPERATOR, MANAV ALVES 296.90 MO MOOD DIS NOS 05/27/2010 GIBSON BAILING MACHINE OPERATOR, MANAV ALVES 301.83 PD BORDERLINE 05/27/2010 WENDI BLACK MD N 296.90 MO MOOD DIS NOS 05/27/2010 WENDI BLACK MD N 301.83 PD BORDERLINE 05/27/2010 WENDI BLACK MD N 296.90 MO MOOD DIS NOS 05/27/2010 WENDI BLACK MD 301.83 PD BORDERLINE 05/27/2010 PEÑALOZA DO, DIMPLE K 296.90 MO MOOD DIS NOS 05/27/2010 PEÑALOZA DO, DIMPLE K 301.83 PD BORDERLINE 05/27/2010 GIBSON BAILING MACHINE OPERATOR, MANAV LONG 296.90 MO MOOD DIS NOS 05/27/2010 GIBSON BAILING MACHINE OPERATOR, MANAV LONG 301.83 PD BORDERLINE 05/27/2010 PEÑALOZA [...] L 296.90 MO MOOD DIS NOS 05/27/2010 ITN HEREDIA PSYD L 301.83 PD BORDERLINE 05/27/2010 SOFIA RICE, WENDI N 296.90 MO MOOD DIS NOS 05/27/2010 SOFIA RICE, WENDI N 301.83 PD BORDERLINE 05/27/2010 WENDI BLACK MD N 296.90 MO MOOD DIS NOS 05/27/2010 SOFIA RICE, WENDI N 301.83 PD BORDERLINE 05/27/2010 CHRISTEL GUIDE RAIL CLEANER, CARLOS M 296.90 MO MOOD DIS NOS 05/27/2010 CHRISTEL GUIDE RAIL CLEANER, CARLOS M 301.83 PD BORDERLINE 05/27/2010 CHRISTEL GUIDE RAIL CLEANER, CARLOS M 296.90 MO MOOD DIS NOS 05/27/2010 CHRISTEL GUIDE RAIL CLEANER, CARLOS M 301.83 PD BORDERLINE 05/27/2010 CHRISTEL GUIDE RAIL CLEANER, CARLOS M 296.90 MO MOOD DIS NOS 05/27/2010 CHRISTEL GUIDE RAIL CLEANER, CARLOS M 301.83 PD BORDERLINE 05/27/2010 CHRISTEL GUIDE RAIL CLEANER, CARLOS M 296.90 MO MOOD DIS NOS 05/27/2010 CHRISTEL GUIDE RAIL CLEANER, CARLOS M 301.83 PD BORDERLINE 06/17/2010 296.80 [...] K 300.02 AN GEN ANXIETY 06/17/2010 PAIGE HECK MANAV ALVES 296.80 MO BIPOLAR NOS 06/17/2010 PAIGE HECK, MANAV ALVES 300.02 AN GEN ANXIETY 06/17/2010 RAMON APRN, MAU A 296.80 MO BIPOLAR NOS 06/17/2010 RAMON APRN, MAU A 300.02 AN GEN ANXIETY 06/17/2010 PAIGE HECK MANAV ALVES 296.80 MO BIPOLAR NOS 06/17/2010 PAIGE HECK MANAV ALVES 300.02 AN GEN ANXIETY 06/17/2010 WENDI BLACK MD 296.80 MO BIPOLAR NOS 06/17/2010 WENDI BLACK MD 300.02 AN GEN ANXIETY 06/17/2010 WENDI BLACK MD 296.80 MO BIPOLAR NOS 06/17/2010 WENDI BLACK MD 300.02 AN GEN ANXIETY 06/17/2010 PEÑALOZA DO, DIMPLE K 296.80 MO BIPOLAR NOS 06/17/2010 PEÑALOZA DO, DIMPLE K 300.02 AN GEN ANXIETY 06/17/2010 PAIGE HECK MANAV ALVES 296.80 MO BIPOLAR NOS 06/17/2010 PAIGE HECK MANAV WHITEH 300.02 AN GEN ANXIETY 06/17/2010 [...] N 300.02 AN GEN ANXIETY 06/17/2010 CHRISTEL GUIDE RAIL CLEANER, CARLOS M 296.80 MO BIPOLAR NOS 06/17/2010 CHRISTEL GUIDE RAIL CLEANER, CARLOS M 300.02 AN GEN ANXIETY 06/17/2010 CHRISTEL GUIDE RAIL CLEANER, CARLOS M 296.80 MO BIPOLAR NOS 06/17/2010 CHRISTEL GUIDE RAIL CLEANER, CARLOS M 300.02 AN GEN ANXIETY 06/17/2010 CHRISTEL GUIDE RAIL CLEANER, CARLOS M 296.80 MO BIPOLAR NOS 06/17/2010 CHRISTEL GUIDE RAIL CLEANER, CARLOS M 300.02 AN GEN ANXIETY 06/17/2010 CHRISTEL GUIDE RAIL CLEANER, CARLOS M 296.80 MO BIPOLAR NOS 06/17/2010 CHRISTEL GUIDE RAIL CLEANER, CARLOS M 300.02 AN GEN ANXIETY 10/14/2010 [...] MO BIPOLAR II 10/14/2010 MAU NAVARRO APRN A 296.89 MO BIPOLAR II 10/14/2010 PAIGE [...] N 296.89 MO BIPOLAR II 10/14/2010 CHRISTEL SALAZAR, CARLOS M 296.89 MO BIPOLAR II 10/14/2010 CHRISTEL GUIDE RAIL CLEANER, CARLOS M 296.89 MO BIPOLAR II 10/14/2010 CHRISTEL GUIDE RAIL CLEANER, CARLOS M 296.89 MO BIPOLAR II 10/14/2010 CHRISTEL GUIDE RAIL CLEANER, CARLOS M 296.89 MO BIPOLAR II 03/22/2011 V72.31 TORCH OPERATOR EXAM, ROUTINE 03/22/2011 V72.31 TORCH OPERATOR EXAM, ROUTINE 03/22/2011 V72.31 TORCH OPERATOR EXAM, ROUTINE 03/22/2011 PAIGE HECK MANAV LONG V72.31 TORCH OPERATOR EXAM, ROUTINE 03/22/2011 PAIGE HECK MANAV LONG V72.31 TORCH OPERATOR EXAM, ROUTINE 03/22/2011 V72.31 TORCH OPERATOR EXAM, ROUTINE 03/22/2011 DIMPLE PEÑALOZA DO V72.31 TORCH OPERATOR EXAM, ROUTINE 03/22/2011 V72.31 TORCH OPERATOR EXAM, ROUTINE 03/22/2011 V72.31 TORCH OPERATOR EXAM, ROUTINE 03/22/2011 V72.31 TORCH OPERATOR EXAM, ROUTINE 03/22/2011 DIMPLE PEÑALOZA DO V72.31 TORCH OPERATOR EXAM, ROUTINE 03/22/2011 TEOFILO FELICIANO MD V72.31 TORCH OPERATOR EXAM, ROUTINE 03/22/2011 DIMPLE PEÑALOZA DO V72.31 TORCH OPERATOR EXAM, ROUTINE 03/22/2011 PAIGE HECK MANAV WHITEH V72.31 TORCH OPERATOR EXAM, ROUTINE 03/22/2011 MAU NAVARRO APRN V72.31 TORCH OPERATOR EXAM, ROUTINE 03/22/2011 PAIGE HECK, MANAV ALVES V72.31 TORCH OPERATOR EXAM, ROUTINE 03/22/2011 SOFIA RICE, WENDI Dupont V72.31 TORCH OPERATOR EXAM, ROUTINE 03/22/2011 SOFIA RICE, WENDI Dupont V72.31 TORCH OPERATOR EXAM, ROUTINE 03/22/2011 DIMPLE PEÑALOZA DO V72.31 TORCH OPERATOR EXAM, ROUTINE 03/22/2011 PAIGE HECK MANAV LONG V72.31 TORCH OPERATOR EXAM, ROUTINE 03/22/2011 DIMPLE PEÑALOZA DO V72.31 TORCH OPERATOR EXAM, ROUTINE 03/22/2011 SOFIA RICE, WENDI Dupont V72.31 TORCH OPERATOR EXAM, ROUTINE 03/22/2011 SOFIA RICE, WENDI Dupont V72.31 TORCH OPERATOR EXAM, ROUTINE 03/22/2011 TIN HEREDIA PSYD V72.31 TORCH OPERATOR EXAM, ROUTINE 03/22/2011 SOFIA RICE, WENDI N V72.31 TORCH OPERATOR EXAM, ROUTINE 03/22/2011 SOFIA RICE, WENDI N V72.31 TORCH OPERATOR EXAM, ROUTINE 03/22/2011 ALBERTO AHUJAISTIN M V72.31 TORCH OPERATOR EXAM, ROUTINE 03/22/2011 CHRISTEL GUIDE RAIL CLEANER, CARLOS M V72.31 TORCH OPERATOR EXAM, ROUTINE 03/22/2011 CHRISTEL GUIDE RAIL CLEANER, CARLOS M V72.31 TORCH OPERATOR EXAM, ROUTINE 03/22/2011 CHRISTEL GUIDE RAIL CLEANER, CARLOS M V72.31 TORCH OPERATOR EXAM, ROUTINE 05/26/2011 465.9 UPPER RESPIRATORY INFECTION 05/26/2011 465.9 UPPER RESPIRATORY INFECTION 05/26/2011 465.9 UPPER RESPIRATORY INFECTION 05/26/2011 PAIGE HECK MANAV LONG 465.9 UPPER RESPIRATORY INFECTION 05/26/2011 MANAV GIBSON APRN 465.9 UPPER RESPIRATORY INFECTION 05/26/2011 465.9 UPPER RESPIRATORY INFECTION 05/26/2011 DIMPLE PEÑALOZA DO 465.9 UPPER RESPIRATORY INFECTION 05/26/2011 465.9 UPPER RESPIRATORY INFECTION 05/26/2011 465.9 UPPER RESPIRATORY INFECTION 05/26/2011 465.9 UPPER RESPIRATORY INFECTION 05/26/2011 PEÑALOZA DO, DIMPLE K 465.9 UPPER RESPIRATORY INFECTION 05/26/2011 TEOFILO FELICIANO MD M 465.9 UPPER RESPIRATORY INFECTION 05/26/2011 PEÑALOZA DO DIMPLE K 465.9 UPPER RESPIRATORY INFECTION 05/26/2011 PAIGE HECK MANAV WHITEH 465.9 UPPER RESPIRATORY INFECTION 05/26/2011 MILADY NAVARRO APRNIDI A 465.9 UPPER RESPIRATORY INFECTION 05/26/2011 PAIGE HECK MANAV LONG 465.9 UPPER RESPIRATORY INFECTION 05/26/2011 WENDI BLACK MD N 465.9 UPPER RESPIRATORY INFECTION 05/26/2011 WENDI BLACK MD N 465.9 UPPER RESPIRATORY INFECTION 05/26/2011 PEÑALOZA AQUILES YEPEZA K 465.9 UPPER RESPIRATORY INFECTION 05/26/2011 PAIGE HECK MANAV LONG 465.9 UPPER RESPIRATORY INFECTION 05/26/2011 PEÑALOZA AQUILES YEPEZA K 465.9 UPPER RESPIRATORY INFECTION 05/26/2011 WENDI [...] SALAZAR, CARLOS M 465.9 UPPER RESPIRATORY INFECTION 07/14/2011 [...] PAIGE HECK, MANAV ALVES 783.5 POLYDIPSIA 07/14/2011 PAIGE HECK, MANAV ALVES V18.0 FAMILY HISTORY OF DIABETES MELLITUS 07/14/2011 PAIGE HECK, MANAV ALVES 401.1 HYPERTENSION, BENIGN ESSENTIAL 07/14/2011 PAIGE HECK, MANAV ALVES 783.5 POLYDIPSIA 07/14/2011 PAIGE HECK, MANAV ALVES V18.0 FAMILY HISTORY OF DIABETES [...] PAIGE HECK MANAV ALVES 783.5 Polydipsia 07/14/2011 MANAV GIBSON APRN V18.0 FAMILY HISTORY OF DIABETES MELLITUS 07/14/2011 RAMON FARRELLCresencio MAU A 401.1 HYPERTENSION, BENIGN ESSENTIAL 07/14/2011 RAMON FARRELLCresencio MAU A 783.5 Polydipsia 07/14/2011 RAMON FARRELLN, MAU A V18.0 FAMILY HISTORY OF DIABETES [...] DOA K 401.1 HYPERTENSION, BENIGN ESSENTIAL 07/14/2011 AQUILES PEÑALOZA DOA K 783.5 Polydipsia 07/14/2011 AQUILES PEÑALOZA DOA K V18.0 FAMILY HISTORY OF DIABETES MELLITUS 07/14/2011 GIBSONERIN FARRELLCresencio MANAV WHITEH 401.1 HYPERTENSION, BENIGN ESSENTIAL 07/14/2011 GIBSONERIN FARRELLCresencio MANAV WHITEH 783.5 Polydipsia 07/14/2011 PAIGE FARRELLCresencio MANAV ALVES V18.0 FAMILY HISTORY OF DIABETES MELLITUS 07/14/2011 JH YEPEZ DIMPLE K 401.1 HYPERTENSION, BENIGN ESSENTIAL 07/14/2011 PEÑALOZA [...] FAMILY HISTORY OF DIABETES MELLITUS 07/14/2011 CHRISTEL GUIDE RAIL CLEANER, CARLOS M 401.1 HYPERTENSION, BENIGN ESSENTIAL 07/14/2011 CHRISTEL GUIDE RAIL CLEANER, CARLOS M 783.5 Polydipsia 07/14/2011 CHRISTEL GUIDE RAIL CLEANER, CARLOS M V18.0 FAMILY HISTORY OF DIABETES MELLITUS 07/14/2011 CHRISTEL GUIDE RAIL CLEANER, CARLOS M 401.1 HYPERTENSION, BENIGN ESSENTIAL 07/14/2011 CHRISTEL GUIDE RAIL CLEANER, CARLOS M 783.5 Polydipsia 07/14/2011 CHRISTEL GUIDE RAIL CLEANER, CARLOS M V18.0 FAMILY HISTORY OF DIABETES MELLITUS 07/14/2011 CHRISTEL GUIDE RAIL CLEANER, CARLOS M 401.1 HYPERTENSION, BENIGN ESSENTIAL 07/14/2011 CHRISTEL GUIDE RAIL CLEANER, CARLOS M 783.5 Polydipsia 07/14/2011 CHRISTEL GUIDE RAIL CLEANER, CARLOS M V18.0 FAMILY HISTORY OF DIABETES MELLITUS 07/14/2011 CHRISTEL GUIDE RAIL CLEANER, CARLOS M 401.1 HYPERTENSION, BENIGN ESSENTIAL 07/14/2011 CHRISTEL SALAZAR, CARLOS M 783.5 Polydipsia 07/14/2011 CARLOS AHUJA M V18.0 FAMILY HISTORY OF DIABETES MELLITUS 07/16/2011 272.4 HYPERLIPIDEMIA 07/16/2011 272.4 HYPERLIPIDEMIA 07/16/2011 272.4 HYPERLIPIDEMIA 07/16/2011 GIBSON BAILING MACHINE OPERATOR, MANAV ALVES 272.4 HYPERLIPIDEMIA 07/16/2011 GIBSONERIN HECK, MANAV ALVES 272.4 HYPERLIPIDEMIA 07/16/2011 272.4 HYPERLIPIDEMIA 07/16/2011 PEÑALOZA DO, DIMPLE K 272.4 HYPERLIPIDEMIA 07/16/2011 272.4 HYPERLIPIDEMIA 07/16/2011 272.4 HYPERLIPIDEMIA 07/16/2011 272.4 HYPERLIPIDEMIA 07/16/2011 PEÑALOZA DO DIMPLE K 272.4 HYPERLIPIDEMIA 07/16/2011 BRADEN RICE, TEOFILO M 272.4 HYPERLIPIDEMIA 07/16/2011 PEÑALOZA DO DIMPLE K 272.4 HYPERLIPIDEMIA 07/16/2011 PAIGE HECK MANAV ALVES 272.4 HYPERLIPIDEMIA 07/16/2011 RAMON HECK MAU A 272.4 HYPERLIPIDEMIA 07/16/2011 GIBSON BAILING MACHINE OPERATOR, MANAV ALVES 272.4 HYPERLIPIDEMIA 07/16/2011 WENDI BLACK MD N 272.4 HYPERLIPIDEMIA 07/16/2011 WENDI BLACK MD 272.4 HYPERLIPIDEMIA 07/16/2011 PEÑALOZA DO DIMPLE K 272.4 HYPERLIPIDEMIA 07/16/2011 PAIGE HECK MANAV ALVES 272.4 HYPERLIPIDEMIA 07/16/2011 PEÑALOZA DO [...] GENITAL HERPES UNSPECIFIED 11/15/2011 PAIGE HECK MANAV ALVES 054.10 GENITAL HERPES UNSPECIFIED 11/15/2011 GIBSON APRN, MANAV ALVES 054.10 GENITAL HERPES UNSPECIFIED 11/15/2011 054.10 GENITAL HERPES UNSPECIFIED 11/15/2011 PEÑALOZA DIMPLE K 054.10 GENITAL HERPES UNSPECIFIED 11/15/2011 054.10 GENITAL HERPES UNSPECIFIED 11/15/2011 054.10 GENITAL HERPES UNSPECIFIED 11/15/2011 054.10 GENITAL HERPES UNSPECIFIED 11/15/2011 PEÑALOZA AQUILESA K 054.10 GENITAL HERPES UNSPECIFIED 11/15/2011 TEOFILO FELICIANO MD 054.10 GENITAL HERPES UNSPECIFIED 11/15/2011 JH YEPEZDIMPLE K 054.10 GENITAL HERPES UNSPECIFIED 11/15/2011 PAIGE HECK MANAV ALVES 054.10 GENITAL HERPES UNSPECIFIED 11/15/2011 MAU NAVARRO APRN 054.10 GENITAL HERPES UNSPECIFIED 11/15/2011 GIBSONERIN HECK MANAV ALVES 054.10 GENITAL HERPES UNSPECIFIED 11/15/2011 WENDI BLACK MD N 054.10 GENITAL HERPES UNSPECIFIED 11/15/2011 WENDI BLACK MD N 054.10 GENITAL HERPES UNSPECIFIED 11/15/2011 JH YEPEZDIMPLE [...] MD N 054.10 GENITAL HERPES UNSPECIFIED 11/15/2011 ACRLOS AHUJA 054.10 GENITAL HERPES UNSPECIFIED 11/15/2011 CARLOS [...] CHEST PAIN 03/27/2012 787.02 NAUSEA ALONE 03/27/2012 GIBSONERIN HECK MANAV ALVES 786.05 SHORTNESS OF BREATH 03/27/2012 GIBSON BAILING MACHINE OPERATOR, MANAV ALVES 786.50 CHEST PAIN 03/27/2012 GIBSONERIN HECK MANAV ALVES 787.02 NAUSEA ALONE 03/27/2012 GIBSONERIN HECK MANAV ALVES 786.05 SHORTNESS OF BREATH 03/27/2012 GIBSON BAILING MACHINE OPERATOR, MANAV ALVES 786.50 CHEST PAIN 03/27/2012 PAIGE FARRELLCresencio MANAV ALVES 787.02 NAUSEA ALONE 03/27/2012 786.05 Shortness Of Breath 03/27/2012 786.50 Chest Pain 03/27/2012 787.02 Nausea Alone 03/27/2012 PEÑALOZA DOAQUILESA K 786.05 Shortness Of Breath 03/27/2012 PEÑALOZA AQUILES YEPEZA K 786.50 Chest Pain 03/27/2012 AQUILES PEÑALOZA [...] DIMPLE K 787.02 Nausea Alone 03/27/2012 GIBSON BAILING MACHINE OPERATOR, MANAV ALVES 786.05 Shortness Of Breath 03/27/2012 GIBSON BAILING MACHINE OPERATOR, MANAV ALVES 786.50 Chest Pain 03/27/2012 GIBSON BAILING MACHINE OPERATOR, MANAV ALVES 787.02 Nausea Alone 03/27/2012 RAMONMILADY Duopnt APRNIDI A 786.05 Shortness Of Breath 03/27/2012 RAMONMILADY Dupont APRNIDI A 786.50 Chest Pain 03/27/2012 RAMON UMANG MAU A 787.02 Nausea Alone 03/27/2012 GIBSON UMANG MANAV ALVES 786.05 Shortness Of Breath 03/27/2012 GIBSON BAILING MACHINE OPERATOR, MANAV ALVES 786.50 Chest Pain 03/27/2012 GIBSON UMANG MANAV ALVES 787.02 Nausea Alone 03/27/2012 WNEDI BLACK MD N 786.05 Shortness Of Breath [...] DIMPLE K 787.02 Nausea Alone 03/27/2012 GIBSON BAILING MACHINE OPERATOR, MANAV ALVES 786.05 Shortness Of Breath 03/27/2012 GIBSON MANAV HECK 786.50 Chest Pain 03/27/2012 MANAV GIBSON APRN [...] N 787.02 Nausea Alone 03/27/2012 CARLOS AHUJA 786.05 Shortness Of Breath 03/27/2012 CARLOS AHUJA M 786.50 Chest Pain 03/27/2012 CARLOS AHUJA M 787.02 Nausea Alone 03/27/2012 CARLOS AHUJA M 786.05 Shortness Of Breath 03/27/2012 CARLOS AHUJA M 786.50 Chest Pain 03/27/2012 CARLOS AHUJA M 787.02 Nausea Alone 03/27/2012 CARLOS AHUJA M 786.05 Shortness Of Breath 03/27/2012 ALBERTO AHUJAISTIN M 786.50 Chest Pain 03/27/2012 CARLOS AHUJA 787.02 Nausea Alone 03/27/2012 CARLOS AHUJA 786.05 Shortness Of Breath 03/27/2012 CARLOS AHUJA M 786.50 Chest Pain 03/27/2012 CARLOS AHUJA 787.02 Nausea Alone 06/21/2012 PAIGE HECK MANAV ALVES 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 06/21/2012 PAIGE HCEK MANAV LONG 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 [...] ALVES 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 06/21/2012 RAMON HECK MAU A 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 RECURRENT [...] 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 06/21/2012 CHRISTEL GUIDE RAIL CLEANER CARLOS M 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 06/21/2012 CHRISTEL ALBERTO SALAZARISTIN M 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 06/21/2012 CHRISTEL GUIDE RAIL CLEANER, CARLOS M 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 [...] 466.0 BRONCHITIS, ACUTE 09/04/2012 PAIGE HECK, MANAV WHITEH 466.0 BRONCHITIS, ACUTE 09/04/2012 MAU NAVARRO APRN 466.0 BRONCHITIS, ACUTE 09/04/2012 PAIGE HECK, MANAV WHITEH 466.0 BRONCHITIS, ACUTE 09/04/2012 WENDI BLACK MD N 466.0 BRONCHITIS, ACUTE 09/04/2012 WENDI BLACK MD N 466.0 BRONCHITIS, ACUTE 09/04/2012 DIMPLE PEÑALOZA DO K 466.0 BRONCHITIS, ACUTE 09/04/2012 PAIGE HECK, MANAV WHITEH 466.0 BRONCHITIS, ACUTE 09/04/2012 DIMPLE PEÑALOZA DO [...] 09/04/2012 CARLOS AHUJA 466.0 BRONCHITIS, ACUTE 09/04/2012 ALBERTO AHUJAISTIN M 466.0 BRONCHITIS, ACUTE 10/30/2012 782.3 EDEMA 10/30/2012 782.3 EDEMA 10/30/2012 BRADEN RICE, TEOFILO Deras 782.3 EDEMA 10/30/2012 PEÑALOZA , DIMPLE K 782.3 EDEMA 10/30/2012 PAIGE BAILING MACHINE OPERATOR, MANAV WHITEH 782.3 EDEMA 10/30/2012 RAMONMARGARETH HECK, MAU A 782.3 EDEMA 10/30/2012 PAIGE HECK, MANAV WHITEH 782.3 EDEMA 10/30/2012 SOFIA RICE, WENDI N 782.3 EDEMA 10/30/2012 SOFIA RICE, WENDI N 782.3 EDEMA 10/30/2012 PEÑALOZA DO, DIMPLE K 782.3 EDEMA 10/30/2012 PAIGE HECK, MANAV WHITEH 782.3 EDEMA 10/30/2012 PEÑALOZA , DIMPLE K 782.3 EDEMA 10/30/2012 SOFIA RICE, WENDI N 782.3 EDEMA 10/30/2012 SOFIA RICE, WENDI N 782.3 EDEMA 10/30/2012 TIN HEREDIA PSYD L 782.3 EDEMA 10/30/2012 SOFIA RICE, WENDI N 782.3 EDEMA 10/30/2012 SOFIA RICE, WENDI N 782.3 EDEMA 10/30/2012 CHRISTEL GUIDE RAIL CLEANER, CARLOS M 782.3 EDEMA 10/30/2012 CHRISTEL GUIDE RAIL CLEANER, CARLOS M 782.3 EDEMA 10/30/2012 CHRISTEL GUIDE RAIL CLEANER, CARLOS M 782.3 EDEMA 10/30/2012 CHRISTEL GUIDE RAIL CLEANER, CARLOS M 782.3 EDEMA 11/07/2012 008.8 GASTROENTERITIS, VIRAL 11/07/2012 TEOFILO FELICIANO MD 008.8 GASTROENTERITIS, VIRAL 11/07/2012 PEÑALOZA DIMPLE YEPEZ K 008.8 GASTROENTERITIS, VIRAL 11/07/2012 PAIGE HECK [...] WENDI BLACK MD 008.8 GASTROENTERITIS, VIRAL 11/07/2012 CARLOS AHUJA M 008.8 GASTROENTERITIS, VIRAL 11/07/2012 CHRISTEL SALAZAR, CARLOS M 008.8 GASTROENTERITIS, VIRAL 11/07/2012 CHRISTEL GUIDE RAIL CLEANER, CARLOS M 008.8 GASTROENTERITIS, VIRAL 11/07/2012 CHRISTEL [...] M 728.87 MUSCLE WEAKNESS (GENERALIZED) 03/08/2013 CHRISTEL GUIDE RAIL CLEANER, CARLOS M 728.87 MUSCLE WEAKNESS (GENERALIZED) 03/08/2013 CHRISTEL SALAZAR, CARLOS M 728.87 MUSCLE WEAKNESS (GENERALIZED) 04/26/2013 PEÑALOZA DO, DIMPLE K 599.0 URINARY TRACT INFECTION 04/26/2013 PAIGE HECK MANAV LONG 599.0 URINARY TRACT INFECTION 04/26/2013 RAMON HECK, MAU A 599.0 URINARY TRACT INFECTION 04/26/2013 PAIGE HECK MANAV LONG 599.0 URINARY TRACT INFECTION 04/26/2013 WENDI BLACK MD N 599.0 URINARY TRACT INFECTION 04/26/2013 WENDI BLACK MD N 599.0 URINARY TRACT INFECTION 04/26/2013 PEÑALOZA DO, DIMPLE K 599.0 URINARY TRACT INFECTION 04/26/2013 PAIGE HECK MANAV ALVES 599.0 URINARY TRACT INFECTION 04/26/2013 PEÑALOZA DO, [...] 599.0 URINARY TRACT INFECTION 04/26/2013 CARLOS AHUJA 599.0 URINARY TRACT INFECTION 09/27/2013 RAMON APRN, MAU A 388.70 OTALGIA UNSPECIFIED 09/27/2013 RAMONMAU Dupont APRN A 786.2 COUGH 09/27/2013 PAIGE FARRELLCresencio MANAV ALVES 388.70 OTALGIA UNSPECIFIED 09/27/2013 GIBSON APRN, MANAV ALVES 786.2 COUGH 09/27/2013 WENDI BLACK MD N 388.70 OTALGIA UNSPECIFIED 09/27/2013 WENDI BLACK MD N 786.2 COUGH 09/27/2013 WENDI BLACK MD N 388.70 OTALGIA UNSPECIFIED 09/27/2013 WENDI BLACK MD 786.2 COUGH 09/27/2013 PEÑALOZA DO, DIMPLE K [...] N 786.2 COUGH 09/27/2013 TIN HEREDIA PSYD L 388.70 OTALGIA UNSPECIFIED 09/27/2013 TIN HEREDIA PSYD L 786.2 COUGH 09/27/2013 WENDI BLACK MD N [...] AHUJA M 786.2 COUGH 09/27/2013 CARLOS AHUJA 388.70 OTALGIA UNSPECIFIED 09/27/2013 CARLOS AHUJA 786.2 COUGH 10/02/2013 MAU NAVARRO APRN A V65.42 COUNSELING - SMOKING CESSATION 10/02/2013 MAU NAVARRO APRN A V74.5 STD SCREEN 10/02/2013 MAU NAVARRO APRN A V76.10 BREAST CANCER SCREENING 10/02/2013 MANAV [...] K V65.42 COUNSELING - SMOKING CESSATION 10/02/2013 DIMPLE PEÑALOZA DO K V74.5 STD SCREEN 10/02/2013 DIMPLE PEÑALOZA [...] V74.5 STD SCREEN 10/02/2013 TIN HEREDIA PSYD V76.10 BREAST CANCER SCREENING 10/02/2013 WENDI BLACK [...] SALAZAR CARLOS M V74.5 STD SCREEN 10/02/2013 ALBERTO AHUJAISTIN M V76.10 BREAST CANCER SCREENING 10/02/2013 CHRISTEL [...] MD 724.2 LUMBAGO 01/01/2014 WENDI BLACK MD 307.42 [...] 01/01/2014 WENDI BLACK MD 724.2 LUMBAGO 01/01/2014 TIN HEREDIA PSYD L 307.42 PERSISTENT DISORDER OF INITIATING OR MAINTAINING SLEEP 01/01/2014 TIN HEREDIA PSYD ANN L 599.70 HEMATURIA UNSPECIFIED 01/01/2014 TIN HEREDIA PSYD ANN L 724.2 LUMBAGO 01/01/2014 WENDI BLACK MD [...] MANAV GIBSON APRN 466.0 BRONCHITIS, ACUTE 02/17/2014 AQUILES PEÑALOZA DOA K 466.0 BRONCHITIS, ACUTE 02/17/2014 SOFIA MD, WENDI N 466.0 BRONCHITIS, ACUTE 02/17/2014 WENDI BLACK MD N 466.0 BRONCHITIS, ACUTE 02/17/2014 TIN HEREDIA PSYD L 466.0 BRONCHITIS, ACUTE 02/17/2014 WENDI BLACK MD N 466.0 BRONCHITIS, ACUTE 02/17/2014 WENDI BLACK MD N 466.0 BRONCHITIS, ACUTE 02/17/2014 CHRISTEL GUIDE RAIL CLEANER, CARLOS M 466.0 BRONCHITIS, ACUTE 02/17/2014 CHRISTEL GUIDE RAIL CLEANER, CARLOS M 466.0 BRONCHITIS, ACUTE 02/17/2014 CHRISTEL GUIDE RAIL CLEANER, CARLOS M 466.0 BRONCHITIS, ACUTE 02/17/2014 CHRISTEL GUIDE RAIL CLEANER, CARLOS M 466.0 BRONCHITIS, ACUTE 05/21/2014 WENDI BLACK MD N 388.70 OTALGIA UNSPECIFIED 05/21/2014 WENDI BLACK MD N 388.70 OTALGIA UNSPECIFIED 05/21/2014 TIN HEREDIA PSYD L 388.70 OTALGIA UNSPECIFIED 05/21/2014 WENDI BLACK MD N 388.70 OTALGIA UNSPECIFIED 05/21/2014 WENDI BLACK MD N 388.70 OTALGIA UNSPECIFIED 05/21/2014 CHRISTEL GUIDE RAIL CLEANER, CARLOS M 388.70 OTALGIA UNSPECIFIED 05/21/2014 CHRISTEL GUIDE RAIL CLEANER, CARLOS M 388.70 OTALGIA UNSPECIFIED 05/21/2014 CHRISTEL GUIDE RAIL CLEANER, CARLOS M 388.70 OTALGIA UNSPECIFIED 05/21/2014 CHRISTEL GUIDE RAIL CLEANER, CARLOS M 388.70 OTALGIA UNSPECIFIED 06/26/2014 WENDI [...] CARLOS AHUJA M 786.50 CHEST PAIN 06/26/2014 CHRISTEL GUIDE RAIL CLEANERCARLOS M 346.80 OTHER FORMS OF MIGRAINE WITHOUT INTRACTABLE MIGRAINE WITHOUT MENTION OF STATUS MIGRAINOSUS 06/26/2014 CARLOS AHUJA M 786.50 CHEST PAIN 06/26/2014 CARLOS AHUJA M 346.80 OTHER FORMS OF MIGRAINE WITHOUT INTRACTABLE MIGRAINE WITHOUT MENTION OF STATUS MIGRAINOSUS 06/26/2014 CARLOS AHUJA M 786.50 CHEST PAIN 07/16/2014 CHRISTEL GUIDE RAIL CLEANERCARLOS M 578.1 BLOOD IN STOOL 07/16/2014 CARLOS [...] 786.50 12/02/2014 Ot V88.01 12/02/2014 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 Ot 305.1 TOBACCO USE DISORDER 12/02/2014 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 Ot 525.9 DENTAL DISORDER NOS 12/02/2014 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 Ot 526.5 ALVEOLITIS OF JAW 12/02/2014 BRAYDEN RICE FACC, DIANE FACP CCDS Ot 272.4 12/02/2014 BRAYDEN RICE FACC, ALI FACP CCDS Ot 278.00 12/02/2014 BRAYDEN RICE FACC, ALI FACP CCDS Ot 305.1 12/02/2014 BRAYDEN RICE FACC, ALI FACP CCDS Ot 401.9 12/02/2014 BRAYDEN RICE FACC, ALI FACP CCDS Ot 786.50 12/02/2014 BRAYDEN MD FACC, ALI FACP CCDS Ot V88.01 12/02/2014 [...] Ot 786.50 12/28/2014 Ot V88.01 12/28/2014 ALVARO CBARERA MD Ot 723.1 CERVICALGIA 12/28/2014 ALVARO CABRERA MD Ot E000.8 OTHER EXTERNAL CAUSE STATUS 12/28/2014 ALVARO CABRERA MD Ot E816.0 LOSS CONTROL MV ACC-DRIV 12/28/2014 BRAYDEN DILLONC, ALI FACP CCDS Ot [...] Ot 786.50 01/02/2015 Ot V88.01 06/02/2015 BRAYDEN RICE FACC, ALI FACP CCDS Ot 272.4 06/02/2015 BRAYDEN RICE FACC, ALI FACP CCDS Ot 278.00 06/02/2015 BRAYDEN RICE FACC, ALI FACP CCDS Ot 305.1 06/02/2015 BRAYDEN RICE FACC, ALI FACP CCDS Ot 401.9 06/02/2015 BRAYDEN RICE FACC, ALI FACP CCDS Ot 786.50 06/02/2015 BRAYDEN RICE FACC, ALI FACP CCDS Ot V88.01 06/02/2015 Ot 272.4 06/02/2015 Ot 278.00 06/02/2015 Ot 305.1 06/02/2015 Ot 401.9 06/02/2015 Ot 786.50 06/02/2015 Ot V88.01 06/02/2015 KINGA RICE, MARCELLUS Lacey Ot K52.9 NONINFECTIVE GASTROENTERITIS AND COLITIS 06/02/2015 BRAYDEN RICE FAC, ALI FACP CCDS Ot 272.4 06/02/2015 BRAYDEN RICE FAC, ALI FACP CCDS Ot 278.00 06/02/2015 BRAYDEN RICE FAC, ALI FACP CCDS Ot 305.1 06/02/2015 BRAYDEN RICE FAC, ALI FACP CCDS Ot 401.9 06/02/2015 BRAYDEN RICE FAC, ALI FACP CCDS Ot 786.50 06/02/2015 BRAYDEN RICE [facility], ALI FACP CCDS Ot V88.01 06/02/2015 Ot [...] 03/01/2016 SOCORRO KEATING APRN Ot Z79.899 OTHER IMAGING SYSTEM ADMINISTRATOR (CURRENT) DRUG THERAPY 03/02/2016 SOCORRO KEATING APRN Ot I10 ESSENTIAL (PRIMARY) HYPERTENSION 03/02/2016 SOCORRO KEATING APRN Ot K52.9 NONINFECTIVE GASTROENTERITIS AND COLITIS 03/02/2016 SOCORRO KEATING APRN Ot R11.2 NAUSEA WITH VOMITING, UNSPECIFIED 03/02/2016 SOCORRO KEATING APRN Ot Z79.899 OTHER ASSISTED (CURRENT) DRUG THERAPY 03/02/2016 SOCORRO KEATING APRN Ot I10 ESSENTIAL (PRIMARY) HYPERTENSION 03/02/2016 SOCORRO KEATING APRN Ot K52.9 NONINFECTIVE GASTROENTERITIS AND COLITIS 03/02/2016 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 Ot R11.2 NAUSEA WITH VOMITING, UNSPECIFIED 03/02/2016 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 Ot Z79.899 OTHER ASSISTED (CURRENT) DRUG THERAPY 03/05/2016 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 Ot I10 ESSENTIAL (PRIMARY) HYPERTENSION 03/05/2016 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 Ot K52.9 NONINFECTIVE GASTROENTERITIS AND COLITIS 03/05/2016 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 Ot R11.2 NAUSEA WITH VOMITING, UNSPECIFIED 03/05/2016 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 Ot Z79.899 OTHER IMAGING SYSTEM ADMINISTRATOR (CURRENT) DRUG THERAPY 03/08/2016 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 Ot I10 ESSENTIAL (PRIMARY) HYPERTENSION 03/08/2016 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 Ot K52.9 NONINFECTIVE GASTROENTERITIS AND COLITIS 03/08/2016 SOCORRO KEATING APRN Ot R11.2 NAUSEA WITH VOMITING, UNSPECIFIED 03/08/2016 SOCORRO KEATING APRN Ot Z79.899 OTHER IMAGING SYSTEM ADMINISTRATOR (CURRENT) DRUG THERAPY 03/14/2016 SOCORRO KEATING APRN Ot I10 ESSENTIAL (PRIMARY) HYPERTENSION 03/14/2016 SOCORRO KEATING APRN Ot K52.9 NONINFECTIVE GASTROENTERITIS AND COLITIS 03/14/2016 SOCORRO KEATING APRN Ot R11.2 NAUSEA WITH VOMITING, UNSPECIFIED 03/14/2016 SOCORRO KEATING APRN Ot Z79.899 OTHER IMAGING SYSTEM ADMINISTRATOR (CURRENT) DRUG THERAPY 06/30/2016 ALVARO CABRERA MD [...] X50.0XXA OVEREXERTION FROM STRENUOUS MOVEMENT OR 08/17/2016 GYU XIAO DO Ot Y99.8 OTHER EXTERNAL CAUSE STATUS 08/17/2016 GUY XIAO DO Ot Z79.899 OTHER ASSISTED (CURRENT) DRUG THERAPY 09/11/2016 ANKIT BE MD Ot F17.210 NICOTINE DEPENDENCE, CIGARETTES, UNCOMPL 09/11/2016 ANKIT BE MD Ot I10 ESSENTIAL (PRIMARY) HYPERTENSION 09/11/2016 ANKIT BE MD Ot N17.9 ACUTE KIDNEY FAILURE, UNSPECIFIED 09/11/2016 [place] RICE ANKIT Tristan Ot R39.15 URGENCY OF URINATION 09/17/2016 ANKIT [...] LOW BACK PAIN 09/25/2016 CRYSTAL SINGLETON MD J Ot R11.0 NAUSEA 09/25/2016 CRYSTAL SINGLETON MD Ot R53.83 OTHER FATIGUE 09/25/2016 CRYSTAL SINGLETON MD Ot Z79.899 OTHER IMAGING SYSTEM ADMINISTRATOR (CURRENT) DRUG THERAPY 09/27/2016 CRYSTAL SINGLETON MD Ot F17.210 NICOTINE DEPENDENCE, CIGARETTES, UNCOMPL 09/27/2016 CRYSTAL SINGLETON MD Ot I10 ESSENTIAL (PRIMARY) HYPERTENSION 09/27/2016 CRYSTAL SINGLETON MD Ot M54.5 LOW BACK PAIN 09/27/2016 CRYSTAL SINGLETON MD Ot R11.0 NAUSEA 09/27/2016 CRYSTAL SINGLETON MD Ot R53.83 OTHER FATIGUE 09/27/2016 CRYSTAL SINGLETON MD Ot Z79.899 OTHER IMAGING SYSTEM ADMINISTRATOR (CURRENT) DRUG THERAPY 10/01/2016 CRYSTAL SINGLETON MD Ot F17.210 NICOTINE DEPENDENCE, CIGARETTES, UNCOMPL 10/01/2016 CRYSTAL SINGLETON MD Ot I10 ESSENTIAL (PRIMARY) HYPERTENSION 10/01/2016 CRYSTAL SINGLETON MD Ot M54.5 LOW BACK PAIN 10/01/2016 CRYSTAL SINGLETON MD Ot R11.0 NAUSEA 10/01/2016 MANI RICE, CRYSTAL Bernal Ot R53.83 OTHER FATIGUE 10/01/2016 MANI RICE, CRYSTAL Bernal Ot Z79.899 OTHER ASSISTED (CURRENT) DRUG THERAPY 12/06/2016 DAMEON GUY YEPEZ Everette Ot E78.00 PURE HYPERCHOLESTEROLEMIA, UNSPECIFIED 12/06/2016 DAMEON , GUY K Ot E86.0 DEHYDRATION 12/06/2016 DAMEON GUY Everette Ot F17.210 NICOTINE DEPENDENCE, CIGARETTES, UNCOMPL 12/06/2016 DAMEON DO GUY K Ot F32.9 MAJOR DEPRESSIVE DISORDER, SINGLE EPISOD 12/06/2016 DAMEON DO GUY K Ot F41.9 ANXIETY DISORDER, UNSPECIFIED 12/06/2016 DAMEON DO GUY K Ot I10 ESSENTIAL (PRIMARY) HYPERTENSION 12/06/2016 DAMEON DO GUY K Ot J45.909 UNSPECIFIED ASTHMA, UNCOMPLICATED 12/06/2016 DAMEON DO GUY K Ot K52.9 NONINFECTIVE GASTROENTERITIS AND COLITIS 12/06/2016 DAMEON GUY K Ot N28.9 DISORDER OF KIDNEY AND URETER, UNSPECIFI 12/06/2016 DAMEON GUY Everette Ot N39.0 URINARY TRACT INFECTION, SITE NOT SPECIF 12/06/2016 DAMEON GUY K Ot R10.84 GENERALIZED ABDOMINAL PAIN 12/06/2016 DAMEON GUY K Ot Z90.49 ACQUIRED ABSENCE OF OTHER SPECIFIED PART 12/06/2016 DAMEON GUY K Ot Z90.710 ACQUIRED ABSENCE OF BOTH CERVIX AND UTER 12/09/2016 DAMEON GUY K Ot E78.00 PURE HYPERCHOLESTEROLEMIA, UNSPECIFIED 12/09/2016 DAMEON DO, GUY K Ot E86.0 DEHYDRATION 12/09/2016 DAMEON GUY K Ot F17.210 NICOTINE DEPENDENCE, CIGARETTES, UNCOMPL 12/09/2016 DAMEON GUY K Ot F32.9 MAJOR DEPRESSIVE DISORDER, SINGLE EPISOD 12/09/2016 DAMEON GUY K Ot F41.9 ANXIETY DISORDER, UNSPECIFIED 12/09/2016 DAMEON DO GUY K Ot I10 ESSENTIAL (PRIMARY) HYPERTENSION 12/09/2016 DAMEON DO GUY K Ot J45.909 UNSPECIFIED ASTHMA, UNCOMPLICATED 12/09/2016 DAMEON GUY YEPEZ Ot K52.9 NONINFECTIVE GASTROENTERITIS AND COLITIS 12/09/2016 DAMEON GUY YEPEZ Ot N28.9 DISORDER OF KIDNEY AND URETER, UNSPECIFI 12/09/2016 GUY XIAO DO Ot N39.0 URINARY TRACT INFECTION, SITE NOT SPECIF 12/09/2016 GUY XIAO DO Ot R10.84 GENERALIZED ABDOMINAL PAIN 12/09/2016 GUY XIAO DO Ot Z90.49 ACQUIRED ABSENCE OF OTHER SPECIFIED PART 12/09/2016 DAMEON GUY YEPEZ Ot Z90.710 ACQUIRED ABSENCE [...] OF BOTH CERVIX AND UTER 12/28/2016 WINSTONJASMINA Corrigan RECREATION DIRECTOR Ot E78.00 PURE HYPERCHOLESTEROLEMIA, UNSPECIFIED 12/28/2016 WINSTON JASMINA RECREATION DIRECTOR Ot F32.9 MAJOR DEPRESSIVE DISORDER, SINGLE EPISOD 12/28/2016 WINSTON JASMINA RECREATION DIRECTOR Ot F41.9 ANXIETY DISORDER, UNSPECIFIED 12/28/2016 WINSTON JASMINA RECREATION DIRECTOR Ot I10 ESSENTIAL (PRIMARY) HYPERTENSION 12/28/2016 WINSTON JASMINA RECREATION DIRECTOR Ot J45.909 UNSPECIFIED ASTHMA, UNCOMPLICATED 12/28/2016 WINSTON JASMINA RECREATION DIRECTOR Ot M54.16 RADICULOPATHY, LUMBAR REGION 12/28/2016 WINSTON JASMINA RECREATION DIRECTOR Ot M54.5 LOW BACK PAIN 12/28/2016 WINSTON, JASMINA RECREATION DIRECTOR Ot Z87.81 PERSONAL HISTORY OF (HEALED) TRAUMATIC F 12/28/2016 WINSTON, JASMINA RECREATION DIRECTOR Ot Z90.710 ACQUIRED ABSENCE OF BOTH CERVIX AND UTER 12/28/2016 WINSTON JASMINA RECREATION DIRECTOR Ot Z98.890 OTHER SPECIFIED POSTPROCEDURAL STATES 12/31/2016 SOCORRO KEATING APRN Ot E78.00 PURE HYPERCHOLESTEROLEMIA, UNSPECIFIED 12/31/2016 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 Ot F17.210 NICOTINE DEPENDENCE, CIGARETTES, UNCOMPL 12/31/2016 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 Ot I10 ESSENTIAL (PRIMARY) HYPERTENSION 12/31/2016 SOCORRO KEATING APRN Ot J45.909 UNSPECIFIED ASTHMA, UNCOMPLICATED 12/31/2016 SOCORRO KEATING APRN Ot M54.5 LOW BACK PAIN 12/31/2016 SOCORRO KEATING APRN Ot Z87.81 PERSONAL HISTORY OF (HEALED) TRAUMATIC F 12/31/2016 SOCORRO KEATING APRN Ot Z90.710 ACQUIRED ABSENCE OF BOTH CERVIX AND UTER 12/31/2016 SOCORRO KEATING APRN Ot Z98.890 OTHER SPECIFIED POSTPROCEDURAL STATES 01/03/2017 JASMINA MONTEROP Ot E78.00 PURE HYPERCHOLESTEROLEMIA, UNSPECIFIED 01/03/2017 WINSTON JASMINA RECREATION DIRECTOR Ot F32.9 MAJOR DEPRESSIVE DISORDER, SINGLE EPISOD 01/03/2017 WINSTON, JASMINA RECREATION DIRECTOR Ot F41.9 ANXIETY DISORDER, UNSPECIFIED 01/03/2017 WINSTON, JASMINA RECREATION DIRECTOR Ot I10 ESSENTIAL (PRIMARY) HYPERTENSION 01/03/2017 WINSTON JASMINA RECREATION DIRECTOR Ot J45.909 UNSPECIFIED ASTHMA, UNCOMPLICATED 01/03/2017 WINSTON JASMINA RECREATION DIRECTOR Ot M54.16 RADICULOPATHY, LUMBAR REGION 01/03/2017 WINSTON JASMINA RECREATION DIRECTOR Ot M54.5 LOW BACK PAIN 01/03/2017 WINSTON, JASMINA RECREATION DIRECTOR Ot Z87.81 PERSONAL HISTORY OF (HEALED) TRAUMATIC F 01/03/2017 WINSTON JASMINA RECREATION DIRECTOR Ot Z90.710 ACQUIRED ABSENCE OF BOTH CERVIX AND UTER 01/03/2017 WINSTON JASMINA RECREATION DIRECTOR Ot Z98.890 OTHER SPECIFIED POSTPROCEDURAL STATES 01/03/2017 SOCORRO KEATING APRN Ot E78.00 PURE HYPERCHOLESTEROLEMIA, UNSPECIFIED 01/03/2017 SOCORRO KEATING APRN Ot F17.210 NICOTINE DEPENDENCE, CIGARETTES, UNCOMPL 01/03/2017 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 Ot I10 ESSENTIAL (PRIMARY) HYPERTENSION 01/03/2017 SOCORRO [...] Ot E78.00 PURE HYPERCHOLESTEROLEMIA, UNSPECIFIED 01/15/2017 DAMEON DO, GUY K Ot F17.210 NICOTINE [...] Ot R20.0 ANESTHESIA OF SKIN 01/15/2017 DAMEON YEPEZ GUY K Ot Z87.81 PERSONAL HISTORY OF (HEALED) TRAUMATIC F 01/15/2017 DAMEON DO GUY K Ot Z90.710 ACQUIRED ABSENCE OF BOTH CERVIX AND UTER 01/15/2017 WENDI BLACK MD Ot M12.88 OTH SPECIFIC ARTHROPATHIES, NEC, OTH SIT 02/06/2017 WENDI BLACK MD Ot M12.88 OTH SPECIFIC ARTHROPATHIES, NEC, OTH SIT 02/07/2017 DAMEON KINGSTON YEPEZA K Ot F17.210 NICOTINE DEPENDENCE, CIGARETTES, UNCOMPL 02/07/2017 DAMEON DO, GUY K Ot I10 ESSENTIAL (PRIMARY) HYPERTENSION 02/07/2017 DAMEON DO, GUY K Ot S92.325D NONDISP FX OF 2ND METATARSAL BONE, L FT, 02/07/2017 DAMEON DO, GUY K Ot S92.335A NONDISP FX OF THIRD METATARSAL BONE, LEF 02/07/2017 DAMEON , GUY K Ot S99.922A UNSPECIFIED INJURY OF LEFT FOOT, INITIAL 02/07/2017 DAMEON GUY K Ot X50.0XXA OVEREXERTION FROM STRENUOUS MOVEMENT OR 02/07/2017 DAMEON GUY K Ot Y99.8 OTHER EXTERNAL CAUSE STATUS 02/07/2017 DAMEON GUY K Ot Z79.899 OTHER IMAGING SYSTEM ADMINISTRATOR (CURRENT) DRUG THERAPY 02/07/2017 UZMA IRVING Ot [...] DEPRESSIVE DISORDER, SINGLE EPISOD 04/02/2017 BOBY DANIELLE MD Ot F41.9 ANXIETY DISORDER, UNSPECIFIED 04/02/2017 BOBY DANIELLE MD Ot I10 ESSENTIAL (PRIMARY) HYPERTENSION 04/02/2017 BOBY DANIELLE MD Ot J45.909 UNSPECIFIED ASTHMA, UNCOMPLICATED 04/02/2017 BOBY DANIELLE MD Ot M48.061 SPINAL STENOSIS, LUMBAR REGION WITHOUT N 04/02/2017 BOBY DANIELLE MD Ot M54.16 RADICULOPATHY, LUMBAR REGION 04/02/2017 BOBY DAINELLE MD Ot M54.5 LOW BACK PAIN 04/02/2017 BOBY DANIELLE MD Ot Z87.81 PERSONAL HISTORY OF (HEALED) TRAUMATIC F 04/02/2017 BOBY DANIELLE MD Ot Z90.710 ACQUIRED ABSENCE OF BOTH CERVIX AND UTER 04/10/2017 CRYSTAL SINGLETON MD Ot F17.210 NICOTINE DEPENDENCE, CIGARETTES, UNCOMPL 04/10/2017 CRYSTAL SINGLETON MD Ot F31.9 BIPOLAR DISORDER, UNSPECIFIED 04/10/2017 CRYSTAL SINGLETON MD Ot F41.9 ANXIETY DISORDER, UNSPECIFIED 04/10/2017 CRYSTAL SINGLETON MD Ot J45.909 UNSPECIFIED ASTHMA, UNCOMPLICATED 04/10/2017 CRYSTAL SINGLETON MD Ot R10.31 RIGHT LOWER QUADRANT PAIN 04/10/2017 CRYSTAL SINGLETON MD Ot Z90.710 ACQUIRED ABSENCE OF BOTH CERVIX AND UTER 04/12/2017 MANI RICE, CRYSTAL Bernal Ot F17.210 NICOTINE DEPENDENCE, CIGARETTES, UNCOMPL 04/12/2017 MANI RICE, CRYSTAL Bernal Ot F31.9 BIPOLAR DISORDER, UNSPECIFIED 04/12/2017 MANI RICE, CRYSTAL Bernal Ot F41.9 ANXIETY DISORDER, UNSPECIFIED 04/12/2017 MANI RICE, CRYSTAL Bernal Ot J45.909 UNSPECIFIED ASTHMA, UNCOMPLICATED 04/12/2017 MANI RICE, CRYSTAL Bernal Ot R10.31 RIGHT LOWER QUADRANT PAIN 04/12/2017 MANI RICE, CRYSTAL Bernal Ot Z90.710 ACQUIRED ABSENCE OF BOTH CERVIX AND UTER 10/02/2017 DAMEON GUY YEPEZ Ot E78.00 PURE HYPERCHOLESTEROLEMIA, UNSPECIFIED 10/02/2017 DAMEON GUY YEPEZ Ot F17.210 NICOTINE DEPENDENCE, CIGARETTES, UNCOMPL 10/02/2017 GUY XIAO DO Ot F32.9 MAJOR DEPRESSIVE DISORDER, SINGLE EPISOD 10/02/2017 GUY XIAO DO Ot F41.9 ANXIETY DISORDER, UNSPECIFIED 10/02/2017 GUY XIAO DO Ot G43.909 MIGRAINE, UNSP, NOT INTRACTABLE, WITHOUT 10/02/2017 GUY XIAO DO Ot I10 ESSENTIAL (PRIMARY) HYPERTENSION 10/02/2017 GUY XIAO DO Ot J45.909 UNSPECIFIED ASTHMA, UNCOMPLICATED 10/02/2017 GUY XIAO DO Ot R40.2142 COMA SCALE, EYES OPEN, SPONTANEOUS, EMR 10/02/2017 GUY XIAO DO Ot R40.2252 COMA SCALE, BEST VERBAL RESPONSE, ORIENT 10/02/2017 GUY XIAO DO Ot R40.2362 COMA SCALE, BEST MOTOR RESPONSE, OBEYS C 10/02/2017 GUY XIAO DO Ot R51 HEADACHE 10/02/2017 GUY XIAO DO Ot S00.93XA CONTUSION OF UNSPECIFIED PART OF HEAD, I 10/02/2017 GUY XIAO DO Ot W20.8XXA OTH CAUSE OF STRIKE BY THROWN, PROJECTED 10/02/2017 GUY XIAO DO Ot Y92.[address] OF OCCURRENCE OF THE EX 10/02/2017 GUY XIAO DO Ot Z87.440 PERSONAL HISTORY OF URINARY (TRACT) INFE 10/02/2017 DAMEON YEPEZ GUY Everette Ot Z87.81 PERSONAL HISTORY OF (HEALED) TRAUMATIC F 10/02/2017 GUY XIAO DO Ot Z88.1 ALLERGY STATUS TO OTHER ANTIBIOTIC AGENT 10/02/2017 GUY XIAO DO Ot Z88.2 ALLERGY STATUS TO SULFONAMIDES STATUS 10/02/2017 DAMEON GUY YEPEZ Ot Z88.5 ALLERGY STATUS TO NARCOTIC AGENT STATUS 10/02/2017 DAMEON GUY YEPEZ Ot Z88.6 ALLERGY STATUS TO ANALGESIC AGENT STATUS 10/02/2017 DAMEON GUY YEPEZ Ot Z88.8 ALLERGY STATUS TO OTH DRUG/MEDS/BIOL SUB 10/02/2017 GUY XIAO DO Ot Z90.49 ACQUIRED ABSENCE OF OTHER SPECIFIED PART 10/02/2017 GUY XIAO DO Ot Z90.710 ACQUIRED ABSENCE OF BOTH CERVIX AND UTER 10/02/2017 DAMEON GUY YEPEZ Ot Z98.890 OTHER SPECIFIED POSTPROCEDURAL STATES 10/03/2017 GUY XIAO DO Ot E78.00 PURE HYPERCHOLESTEROLEMIA, UNSPECIFIED 10/03/2017 DAMEON DO GUY K Ot F17.210 NICOTINE DEPENDENCE, CIGARETTES, UNCOMPL 10/03/2017 GUY XIAO DO Ot F32.9 MAJOR DEPRESSIVE DISORDER, SINGLE EPISOD 10/03/2017 GUY XIAO DO Ot F41.9 ANXIETY DISORDER, UNSPECIFIED 10/03/2017 DAMEON GUY YEPEZ Ot G43.909 MIGRAINE, UNSP, NOT INTRACTABLE, WITHOUT 10/03/2017 GUY XIAO DO Ot I10 ESSENTIAL (PRIMARY) HYPERTENSION 10/03/2017 GUY XIAO DO Ot J45.909 UNSPECIFIED ASTHMA, UNCOMPLICATED 10/03/2017 GUY XIAO DO Ot R40.2142 COMA SCALE, EYES OPEN, SPONTANEOUS, EMR 10/03/2017 GUY XIAO DO Ot R40.2252 COMA SCALE, BEST VERBAL RESPONSE, ORIENT 10/03/2017 GUY XIAO DO Ot R40.2362 COMA SCALE, BEST MOTOR RESPONSE, OBEYS C 10/03/2017 GUY XIAO DO Ot R51 HEADACHE 10/03/2017 GUY XIAO DO Ot S00.93XA CONTUSION OF UNSPECIFIED PART OF HEAD, I 10/03/2017 GUY XIAO DO Ot W20.8XXA OTH CAUSE OF STRIKE BY THROWN, PROJECTED 10/03/2017 DAMEON YEPEZ GUY K Ot Y92.[address] OF OCCURRENCE OF THE EX 10/03/2017 GUY XIAO DO Ot Z87.440 PERSONAL HISTORY OF URINARY (TRACT) INFE 10/03/2017 GUY XIAO DO Ot Z87.81 PERSONAL HISTORY OF (HEALED) TRAUMATIC F 10/03/2017 DAMEON GUY YEPEZ Ot Z88.1 ALLERGY STATUS TO OTHER ANTIBIOTIC AGENT 10/03/2017 DAMEON GUY YEPEZ Ot Z88.2 ALLERGY STATUS TO SULFONAMIDES STATUS 10/03/2017 DAMEON GUY YEPEZ Ot Z88.5 ALLERGY STATUS TO NARCOTIC AGENT STATUS 10/03/2017 ADMEON GUY YEPEZ Ot Z88.6 ALLERGY STATUS TO ANALGESIC AGENT STATUS 10/03/2017 DAMEON GUY YEPEZ Ot Z88.8 ALLERGY STATUS TO OTH DRUG/MEDS/BIOL SUB 10/03/2017 DAMEON GUY YEPEZ Ot Z90.49 ACQUIRED ABSENCE OF OTHER SPECIFIED PART 10/03/2017 GUY XIAO DO Ot Z90.710 ACQUIRED ABSENCE OF BOTH CERVIX AND UTER 10/03/2017 DAMEON GUY YEPEZ Ot Z98.890 OTHER SPECIFIED POSTPROCEDURAL STATES 10/15/2017 GUY XIAO DO Ot E78.00 PURE HYPERCHOLESTEROLEMIA, UNSPECIFIED 10/15/2017 GUY XIAO DO Ot F17.210 NICOTINE DEPENDENCE, CIGARETTES, UNCOMPL 10/15/2017 DAMEON GUY YEPEZ Ot F32.9 MAJOR DEPRESSIVE DISORDER, SINGLE EPISOD 10/15/2017 DAMEON GUY YEPEZ Ot F41.9 ANXIETY DISORDER, UNSPECIFIED 10/15/2017 DAMEON GUY YEPEZ Ot G43.909 MIGRAINE, UNSP, NOT INTRACTABLE, WITHOUT 10/15/2017 GUY XIAO DO Ot I10 ESSENTIAL (PRIMARY) HYPERTENSION 10/15/2017 DAMEON GUY YEPEZ Ot J45.909 UNSPECIFIED ASTHMA, UNCOMPLICATED 10/15/2017 DAMEON GUY YEPEZ Ot R10.32 LEFT LOWER QUADRANT PAIN 10/15/2017 GUY XIAO DO Ot Z87.440 PERSONAL HISTORY OF URINARY (TRACT) INFE 10/15/2017 GUY XIAO DO Ot Z87.442 PERSONAL HISTORY OF URINARY CALCULI 10/15/2017 GUY XIAO DO Ot Z87.81 PERSONAL HISTORY OF (HEALED) TRAUMATIC F 10/15/2017 GUY XIAO DO Ot Z88.1 ALLERGY STATUS TO OTHER ANTIBIOTIC AGENT 10/15/2017 GUY XIAO DO Ot Z88.2 ALLERGY STATUS TO SULFONAMIDES STATUS 10/15/2017 GUY XIAO DO Ot Z88.5 ALLERGY STATUS TO NARCOTIC AGENT STATUS 10/15/2017 GUY XIAO DO Ot Z88.8 ALLERGY STATUS TO OTH DRUG/MEDS/BIOL SUB 10/15/2017 GUY XIAO DO Ot Z90.710 ACQUIRED ABSENCE OF BOTH CERVIX AND UTER 12/22/2017 BRAYDEN RICE FACC, ALI FACP CCDS Ot 272.4 HYPERLIPIDEMIA NEC/NOS 12/22/2017 BRAYDEN DILLONC, ALI FACP CCDS Ot 278.00 OBESITY, NOS 12/22/2017 BRAYDEN RICE FACC, ALI FACP CCDS Ot 305.1 TOBACCO USE DISORDER 12/22/2017 BRAYDEN RICE FACC, ALI FACP CCDS Ot 401.9 HYPERTENSION NOS 12/22/2017 BRAYDEN RICE FACC, ALI FACP CCDS Ot 786.50 CHEST PAIN NOS 12/22/2017 BRAYDEN RICE FACC, ALI FACP CCDS Ot V88.01 ACQUIRED ABSENCE OF BOTH CERVIX AND UTER 12/22/2017 Ot 272.4 HYPERLIPIDEMIA NEC/NOS 12/22/2017 Ot 278.00 OBESITY, NOS 12/22/2017 Ot 305.1 TOBACCO USE DISORDER 12/22/2017 Ot 401.9 HYPERTENSION NOS 12/22/2017 Ot 786.50 CHEST PAIN NOS 12/22/2017 Ot V88.01 ACQUIRED ABSENCE OF BOTH CERVIX AND UTER 12/22/2017 SOFIA RICE, WENDI Dupont Ot M12.88 OTH SPECIFIC ARTHROPATHIES, NEC, OTH SIT Procedures Code Description [place] [address] UA W/ CULTURE IF INDICATED 06/15/2012 50949 PSYCH IND W/MED CK 20 08/10/2012 33658 ROUTINE VENIPUNCTURE 10/30/2012 54554 BNP 10/30/2012 51793 CMP 10/30/2012 [id number] GFR CALC (RESULT ONLY) 10/30/2012 70866 H PYLORI (IN-HOUSE) 11/07/2012 06595 ROUTINE VENIPUNCTURE 03/08/2013 62723 A1C (IN-HOUSE) 03/08/2013 87860 ESR/SED RATE 03/08/2013 18833 CBC 03/08/2013 77589 CRP 03/08/2013 36272 TSH 03/08/2013 18664 CPK 03/08/2013 06478 CMP 03/08/2013 [id number] GFR CALC (RESULT ONLY) 03/08/2013 ANAANA CALLUM ANALYZER (SCREEN) 03/09/2013 GRAVSPANL MYASTHENIA GRAVIS PANEL 03/18/2013 46285 UA W/ CULTURE IF INDICATED 04/26/2013 65394 CULTURE URINE 04/26/2013 06064 ROUTINE VENIPUNCTURE 10/02/2013 19059 TRICHOMONAS (IN-HOUSE) 10/02/2013 68707 SYPHILLIS-[facility] 10/02/2013 21118 HIV ([facility]) 10/02/2013 34160 GC/CHLAM PROBE (STATE) 10/02/2013 25191 CULTURE UROGENITAL 10/03/2013 48539 UA W/ CULTURE IF INDICATED 01/01/2014 35764 UA LONG DIP 02/17/2014 12927 ROUTINE VENIPUNCTURE 05/21/2014 30050 SED/ESR RATE (IN HOUSE) 05/21/2014 04110 LIPID PANEL 05/21/2014 21268 PSYCH DIAGNOSTIC EVALUATION 06/25/2014 17454 ROUTINE VENIPUNCTURE 06/26/2014 94678 EKG, TRACING (IN-HOUSE) 06/26/2014 50717 CMP 06/26/2014 13271 MAGNESIUM 06/26/2014 63851 TSH 06/26/2014 CARDIOLOG LIN POWERS 06/26/2014 20047 CBC 06/26/2014 84400 PSYTX PT&/FAMILY 45 MINUTES 07/28/2014 Results Test [...] Serum or plasma lithium measurement (moles/volume) - 08/17/16 14:53 BNP level < pg/mL <100.0 Comprehensive [...] NRG Blood erythrocyte morphology finding identification [facility] Comprehensive metabolic panel - 03/01/16 [...] culture - 12/06/16 21:42 Bacterial urine culture [id number] NRG COLONY COUNT 10,000/ML - 100,000/ML NRG [...] culture - 12/28/16 17:00 Bacterial urine culture [id number] NRG COLONY COUNT 10,000/ML - 100,000/ML NRG [...] protein measurement (mass/volume) 0.56 mg /dL 0.00-0.50 Complete urinalysis with reflex to culture - 10/15/17 01:20 Urine color determination YELLOW NRG Urine clarity determination CLEAR NRG Urine pH measurement by test strip 6 5-9 Specific gravity of urine by test strip 1.020 1.016- 1.022 Urine protein assay by test strip, semi-quantitative 1+ NEGATIVE Urine glucose detection by automated test [...] count by microscopy (number/high power field ) RARE NRG Bacteria detection in urine sediment by light microscopy TRACE NRG Squamous epithelial cells detection in urine sediment by light microscopy 25-50 NRG Crystals detection in urine sediment by light microscopy NONE NRG Casts detection in urine sediment by light microscopy NONE NRG Mucus detection in urine sediment by light microscopy MODERATE NRG Complete urinalysis with reflex to culture NO NRG Complete blood count (CBC) with automated white blood cell (WBC) differential - 10/15/17 01:45 Blood leukocytes automated count (number/volume) 7.7 10*3/uL 4.3-11.0 Blood erythrocytes automated count (number/volume) 3.91 10*6/uL 4.35-5.85 Venous blood hemoglobin measurement (mass/volume) 12.5 g/dL 11.5-16.0 Blood hematocrit (volume fraction) 35 % 35-52 Automated erythrocyte mean corpuscular volume 91 [foz_us] 80-99 Automated erythrocyte mean corpuscular hemoglobin (mass per erythrocyte) 32 pg 25-34 Automated erythrocyte mean corpuscular hemoglobin concentration measurement ( mass/volume) 35 g/dL 32-36 Automated erythrocyte distribution width ratio 12.9 % 10.0-14.5 Automated blood platelet count (count/volume) 327 10*3/uL 130-400 Automated blood platelet mean volume measurement 9.2 [foz_us] 7.4-10.4 Automated blood neutrophils/100 leukocytes 53 % 42-75 Automated blood lymphocytes/100 leukocytes 36 % 12-44 Blood monocytes/100 leukocytes 11 % 0-12 Automated blood eosinophils/100 leukocytes 0 % 0-10 Automated blood basophils/100 leukocytes 0 % 0-10 Blood neutrophils automated count (number/volume) 4.0 10*3 1.8-7.8 Blood lymphocytes automated count (number/volume) 2.7 10*3 1.0-4.0 Blood monocytes automated count (number/volume) 0.9 10*3 0.0-1.0 Automated eosinophil count 0.0 10*3/uL 0.0-0.3 Automated blood basophil count (count/volume) 0.0 10*3/uL 0.0-0.1 Comprehensive metabolic panel - 10/15/17 01:45 Serum or plasma sodium measurement (moles/volume) 138 mmol/L 135-145 Serum or plasma potassium measurement (moles/volume) 3.5 mmol/L 3.6-5.0 Serum or plasma chloride measurement (moles/volume) 106 mmol/L 98-107 Carbon dioxide 20 mmol/L 21-32 Serum or plasma anion gap determination (moles/volume) 12 mmol/L 5-14 Serum or plasma urea nitrogen measurement (mass/volume) 11 mg/dL 7-18 Serum or plasma creatinine measurement (mass/volume) 0.74 mg/dL 0.60-1.30 Serum or plasma urea nitrogen/creatinine mass ratio 15 NRG Serum or plasma creatinine measurement with calculation of estimated glomerular filtration rate > NRG Serum or plasma glucose measurement (mass/volume) 91 mg/dL 70-105 Serum or plasma calcium measurement (mass/volume) 9.2 mg/dL 8.5-10.1 Serum or plasma total bilirubin measurement (mass/volume) 0.2 mg/dL 0.1-1.0 Serum or plasma alkaline phosphatase measurement (enzymatic activity/volume) 104 U/L 40-136 Serum or plasma aspartate aminotransferase measurement (enzymatic activity/ volume) 17 U/L 5-34 Serum or plasma alanine aminotransferase measurement (enzymatic activity/volume ) 18 U/L 0-55 Serum or plasma protein measurement (mass/volume) 7.0 g/dL 6.4-8.2 Serum or plasma albumin measurement (mass/volume) 4.3 g/dL 3.2-4.5 Serum or plasma amylase measurement (enzymatic activity/volume) - 10/15/17 01: 45 Serum or plasma amylase measurement (enzymatic activity/volume) 49 U /L 25-125 Lipase - 10/15/17 01:45 Lipase 113 U/L 8-78 Encounters ACCT No. Visit Date/Time Discharge Status Pt. Type Provider Facility Loc./Unit Complaint [id number] 08/22/2014 13:09:00 08/22/2014 23:59:59 CLS Outpatient CARLOS AHUJA [id number] 07/28/2014 09:24:00 07/28/2014 23:59:59 CLS Outpatient CARLOS AHUJA [id number] 07/28/2014 09:24:00 07/28/2014 23:59:59 CLS Outpatient CARLOS AHUJA [id number] 07/16/2014 09:41:00 07/16/2014 23:59:59 CLS Outpatient WENDI BLACK MD [id number] 06/26/2014 13:30:00 06/26/2014 23:59:59 CLS Outpatient WENDI BLACK MD [id number] 06/26/2014 13:30:00 06/26/2014 23:59:59 CLS Outpatient WENDI BLACK MD [id number] 06/25/2014 10:06:00 06/25/2014 23:59:59 CLS Outpatient TIN HEREDIA PSYD [id number] 06/23/2014 08:04:00 06/23/2014 23:59:59 CLS Outpatient CARLOS AHUJA [id number] 05/21/2014 11:37:00 05/21/2014 23:59:59 CLS Outpatient WENDI BLACK MD [id number] 05/21/2014 11:37:00 05/21/2014 23:59:59 CLS Outpatient WENDI BLACK MD [id number] 02/21/2014 16:26:00 02/21/2014 23:59:59 CLS Outpatient PAIGE HECKMANAV [id number] 02/17/2014 14:00:00 02/17/2014 23:59:59 CLS Outpatient DIMPLE PEÑALOZA DO [id number] 02/17/2014 14:00:00 02/17/2014 23:59:59 CLS Outpatient DIMPLE PEÑALOZA DO [id number] 01/01/2014 10:30:00 01/01/2014 23:59:59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
--- NOTE | 2018-08-19 10:25 | Diagnostic Imaging Report ---
PROCEDURE: CT abdomen and pelvis with contrast. TECHNIQUE: Multiple contiguous axial images were obtained through the abdomen and pelvis after administration of intravenous contrast. INDICATION: Nausea, vomiting and diarrhea. COMPARISON is made with prior CT from 10/15/2017. FINDINGS: The lung bases are clear. No discrete liver mass is identified. Gallbladder is surgically absent. No biliary ductal dilatation is seen. The pancreas and spleen are unremarkable. No adrenal mass is detected. The kidneys are unremarkable. Aorta is non-aneurysmal. Bowel loops appear to be normal. No definite obstruction is seen. The appendix is visualized in the right lower quadrant and appears unremarkable. There is no free fluid identified. The bladder is unremarkable. Uterus appears to be absent or atrophic. No inflammatory changes are seen. IMPRESSION: Essentially unremarkable CT of the abdomen and pelvis. No acute abnormality is detected. Dictated by: Dictated on workstation # [id number]
[2018-08-19] MEDS ORDERED: DICYCLOMINE 10 MG (BENTYL) CAP PO SCH (10:45)
[2018-08-19] MEDS ORDERED: PROMETHAZINE INJ 25 MG/ML (PHENERGAN) AMP IVP ONE (10:45)
[2018-08-19] MEDS: NS IV 1000 ML 1,000 ML IV SCH ×4 (11:00→14:36)
[2018-08-19] MEDS ORDERED: HYOSCYAMINE 0.125 MG (LEVSIN) TAB PO ONE (11:15)
[2018-08-19] MEDS ORDERED: HYOS0.1283 SL (11:28)
[2018-08-19] MEDS ORDERED: ONDA8TAB13 PO (11:28)
[2018-08-19 12:28] VITALS: BP 132/68
== END 2018-08-19 12:28 | disposition home or self-care (01) ==
LOC: EDUNIT# 09:05 → ER FS 09:07
DX: R11.2 Nausea with vomiting, unspecified (principal); R19.7 Diarrhea, unspecified; D72.829 Elevated white blood cell count, unspecified; R79.81 Abnormal blood-gas level; R10.84 Generalized abdominal pain; J45.909 Unspecified asthma, uncomplicated; E78.00 Pure hypercholesterolemia, unspecified; I10 Essential (primary) hypertension; G43.909 Migraine, unspecified, not intractable, without status migrainosus; F41.9 Anxiety disorder, unspecified; F32.9 Major depressive disorder, single episode, unspecified; Z87.442 Personal history of urinary calculi; Z87.440 Personal history of urinary (tract) infections; Z88.2 Allergy status to sulfonamides; Z88.0 Allergy status to penicillin; Z88.8 Allergy status to other drugs, medicaments and biological substances; Z88.5 Allergy status to narcotic agent; Z88.6 Allergy status to analgesic agent; Z90.49 Acquired absence of other specified parts of digestive tract; Z87.891 Personal history of nicotine dependence; Z90.710 Acquired absence of both cervix and uterus; Z98.890 Other specified postprocedural states
CPT/HCPCS: 36415; 74177; 80053; 83690; 85007; 85027

== ENCOUNTER 2018-12-05 10:22 | Emergency (ER) | payer SELFPAY ==
[~2018-12-05] VITALS: Ht 172.7 cm; Wt 121.1 kg
[~2018-12-05 10:22] MED LIST changes: +LISI-552 PO; +ONDA8TAB13 PO
--- NOTE | 2018-12-05 10:34 | ED GI ---
General Stated Complaint: LOWER ABD PAIN;RECTAL PAIN Source of Information: Patient Exam Limitations: No Limitations History of Present Illness Date Seen by Provider: Dec 05, 2018 Time Seen by Provider: 10:22 Initial Comments The patient presents to the ER by private conveyance with chief complaint that last night she was sitting down on the toilet trying to have a bowel movement and she said she felt very constipated and could not go. She then felt something protruding from her rectum and she pushed it back up with her finger. She does have a history of constipation chronically and hemorrhoids. She's not seeing any blood in the stool. She has had a hysterectomy and cholecystectomy in the past. She's had colonoscopies in the past when she was a teenager for chronic constipation. She still takes fiber dummies and took some Colace recently. Last night everything she ate or drank she said she vomited back up. She's having some pain in her lower abdomen. No fevers chills or nausea presently. She called trying get an appointment with her doctor at [facility] today but they did not have availability so she came here instead. Allergies and Home Medications Allergies Coded Allergies: Sulfa (Sulfonamide Antibiotics) (Unverified Allergy, Unknown, 07/31/14) amoxicillin (Unverified Allergy, Unknown, 07/31/14) cyclobenzaprine (Unverified Allergy, Unknown, 01/15/17) morphine (Unverified Allergy, Unknown, 07/31/14) paroxetine (Unverified Allergy, Unknown, 07/31/14) sulfamethoxazole (Unverified Allergy, Unknown, 07/31/14) tramadol (Verified Allergy, Unknown, itching, 12/21/16) trimethoprim (Unverified Allergy, Unknown, 07/31/14) acetaminophen (Verified Adverse Reaction, Intermediate, nausea, 12/21/16) codeine (Verified Adverse Reaction, Intermediate, nausea, 12/21/16) hydrocodone (Unverified Adverse Reaction, Intermediate, nausea, 12/21/16) Home Medications Alprazolam 2 Mg Tablet, 2 MG PO TID PRN for ANXIETY, (Reported) Gabapentin 300 Mg Tablet, 900 MG PO BID, (Reported) Hyoscyamine Sulfate 0.125 Mg Tab.subl, 0.125 MG SL Q4H PRN for ABDOMINAL PAIN Prescribed by: GOMEZ MELGOZA on 08/19/181127 Ketorolac Tromethamine 10 Mg Tablet, 10 MG PO Q6H Prescribed by: GUY XIAO on 10/15/17247 Lisinopril 20 Mg Tablet, 20 MG PO DAILY, (Reported) Methocarbamol 500 Mg Tablet, 500 MG PO QID Prescribed by: GUY XIAO on 10/15/17247 Ondansetron 8 Mg Tab.rapdis, 8 MG PO Q6H PRN for NAUSEA/VOMITING-1ST LINE Prescribed by: GOMEZ MELGOZA on 08/19/181127 Patient Home Medication List Home Medication List Reviewed: Yes Review of Systems Review of Systems Constitutional: No chills, No diaphoresis EENTM: No Blurred Vision, No Double Vision Respiratory: Denies Cough, Denies Shortness of Air Cardiovascular: Denies Chest Pain, Denies Edema Gastrointestinal: See HPI, Abdomen Distended, Abdominal Pain, Constipated; Denies Diarrhea; Nausea Genitourinary: Denies Burning, Denies Discharge Musculoskeletal: No back pain, No joint pain Past Yfipwdy-Gmjpfh-Dqbzrl Hx Patient Social History Alcohol Use: Denies Use Recreational Drug Use: No Smoking Status: Former Smoker Type Used: Cigarettes Former Smoker, Quit: Jun 21, 2018 2nd Hand Smoke Exposure: Yes Recent Foreign Travel: No Contact w/Someone Who Travel: No Recent Hopitalizations: No Immunizations Up To Date Tetanus Booster (TDap): Less than 5yrs Seasonal Allergies Seasonal Allergies: No Past Medical History Surgeries: Yes Breast, Gallbladder, Hysterectomy, Nose Respiratory: Yes Asthma Cardiac: Yes High Cholesterol, Hypertension Neurological: Yes (OCCASIONAL HEADACHES) Headaches /Migraines 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) 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00" Weight: 275lbs. oz. 124.634079gq; 31.01 BMI Method:Stated General Appearance: WD/WN, mild distress Respiratory: no respiratory distress, no accessory muscle use Cardiovascular: normal peripheral pulses, regular rate, rhythm, no edema, tachycardia (110) Gastrointestinal: normal bowel sounds, soft, tenderness (left lower quadrant) Rectal: normal exam, normal rectal tone, hemorrhoids (mild, subcentimeter, internal without protrusion, rectal prolapse or evidence of acute abscess); No mass; tenderness Neurologic/Psychiatric: alert, normal mood/affect, oriented x 3 Skin: normal color, warm/dry Progress/Results/Core Measures Results/Orders My Orders Orders - CRYSTAL SINGLETON Ondansetron Oral Dissolve Tab (Zofran (12/05/18 11:00) Vital Signs/I&O 12/05/18 10:25 Temp 97.3 Pulse 109 Resp 16 B/P (MAP) 166/92 (116) Pulse Ox 96 O2 Delivery Room Air Progress Progress Note #1: Time: 10:34 Progress Note Urinalysis, rectal exam. She has mild tachycardia however she is also very anxious and having some abdominal discomfort. After our exam if we do not discover hemorrhoids or prolapsed rectum then we may choose to treat conservatively for her obstipation versus basic labs. Progress Note #2: Time: 10:48 Progress Note She has a mild nonacute abdomen so we offered to do some blood work versus just conservative management with laxatives, enema and follow up with general surgery consider reexamination outpatient for hemorrhoids versus prolapse. Patient would prefer the second option so were going to provide her with some scripts. Marleny eled the urinalysis. Departure Impression Primary Impression: Obstipation Additional Impression: Internal hemorrhoids without complication Disposition: HOME, SELF-CARE Condition: Stable Departure-Patient Inst. Decision time for Depature: 10:50 Referrals: WENDI BLACK MD (PCP/Family) Primary Care Physician JORGE L BATISTA MD Patient Instructions: Constipation, Adult (DC) Add. Discharge Instructions: Obtain a bottle of MiraLAX and take one capful in 6-8 ounces of fluid 3 times a day until you're having copious loose stools. Obtain Fleet enema once or twice a day until you're having copious loose stools. You may continue the Colace and resume the fiber once your stools are loose and watery. If your pain gets worse you can try Tylenol 1000 g every 8 hours as needed in addition to ibuprofen 800 mg every 8 hours as necessary. You may also do Sitz baths with Epson salts for rectal discomfort. Call Dr. Batista's office and get an appointment for reexamination for your rectal pain. If you have nausea use Zofran 1 tablet every 6 hours as needed. Return to the ER if you are unable to control your pain or nausea or if you develop a fever. Scripts Ondansetron (Ondansetron Odt) 4 Mg Tab.rapdis 4 MG PO Q6H PRN for NAUSEA/VOMITING-1ST LINE, #10 TAB 0 Refills Prov: CRYSTAL SINGLETON 12/05/18 Na MarkellM-B/Cheli PhoNabor matos (Fleet Enema) 133 Ml Enema 133 ML RC DAILY for 3 Days, #3 EA 0 Refills Prov: CRYSTAL SINGLETON 12/05/18 Polyethylene Glycol 3350 (Miralax) 17 Gm Powd.pack 17 GM PO BID PRN for 7 Days, #1 EACH 0 Refills Prov: CRYSTAL SINGLETON 12/05/18 Work/School Note: Work Release Form Date Seen in the Emergency Department: Dec 05, 2018 Return to Work: Dec 05, 2018 Restrictions: No Restrictions CRYSTAL SINGLETON Dec 05, 2018 10:34
[2018-12-05] MEDS ORDERED: ONDANSETRON 4 MG (ZOFRAN) ORAL DISSOLVE TAB PO ONE (11:00)
[2018-12-05] MEDS ORDERED: POLY17PO6 PO ×2 (11:02→11:03)
[2018-12-05] MEDS ORDERED: NA P133E22 RC ×2 (11:02→11:03)
[2018-12-05] MEDS ORDERED: ONDA4TAB11 PO ×2 (11:02→11:03)
[2018-12-05 11:07] VITALS: BP 166/92
== END 2018-12-05 11:07 | disposition home or self-care (01) ==
LOC: EDUNIT# 10:22 → ER 10:23
DX: K64.8 Other hemorrhoids (principal); K59.00 Constipation, unspecified; J45.909 Unspecified asthma, uncomplicated; I10 Essential (primary) hypertension; E78.00 Pure hypercholesterolemia, unspecified; G43.909 Migraine, unspecified, not intractable, without status migrainosus; F41.9 Anxiety disorder, unspecified; F32.9 Major depressive disorder, single episode, unspecified; Z87.440 Personal history of urinary (tract) infections; Z87.442 Personal history of urinary calculi; Z90.710 Acquired absence of both cervix and uterus; Z90.49 Acquired absence of other specified parts of digestive tract; Z88.2 Allergy status to sulfonamides; Z88.1 Allergy status to other antibiotic agents; Z88.5 Allergy status to narcotic agent; Z88.8 Allergy status to other drugs, medicaments and biological substances; Z87.891 Personal history of nicotine dependence
CPT/HCPCS: 99284

== ENCOUNTER 2019-02-24 16:22 | Emergency (ER) | payer SELFPAY ==
[~2019-02-24] VITALS: Ht 172 cm; Wt 118.0 kg
[~2019-02-24 16:22] MED LIST changes: +NA P133E22 RC
[2019-02-24] MEDS ORDERED: LORazepam INJ 2 MG/ML (ATIVAN) VIAL IVP ONE (16:30)
[2019-02-24] MEDS ORDERED: KETOROLAC 30 MG/ML VIAL IVP ONE (16:30)
--- NOTE | 2019-02-24 16:30 | ED General ---
General Stated Complaint: CP/SOB Source of Information: Patient Exam Limitations: No Limitations History of Present Illness Date Seen by Provider: Feb 24, 2019 Time Seen by Provider: 16:28 Initial Comments ER with complaints of chest pain She's been having pain to the right posterior chest for about the past week. She got up off of the couch and had a sudden shooting pain through the anterior chest that radiates up into her face. She now has tingling of her lips and hands. Timing/Duration: Intermittent Severity: Moderate Associated Systoms: Chest Pain Allergies and Home Medications Allergies Coded Allergies: Sulfa (Sulfonamide Antibiotics) (Unverified Allergy, Unknown, 07/31/14) amoxicillin (Unverified Allergy, Unknown, 07/31/14) cyclobenzaprine (Unverified Allergy, Unknown, 01/15/17) morphine (Unverified Allergy, Unknown, 07/31/14) paroxetine (Unverified Allergy, Unknown, 07/31/14) sulfamethoxazole (Unverified Allergy, Unknown, 07/31/14) tramadol (Verified Allergy, Unknown, itching, 12/21/16) trimethoprim (Unverified Allergy, Unknown, 07/31/14) acetaminophen (Verified Adverse Reaction, Intermediate, nausea, 12/21/16) codeine (Verified Adverse Reaction, Intermediate, nausea, 12/21/16) hydrocodone (Unverified Adverse Reaction, Intermediate, nausea, 12/21/16) Home Medications Alprazolam 2 Mg Tablet, 2 MG PO TID PRN for ANXIETY, (Reported) Gabapentin 300 Mg Tablet, 900 MG PO BID, (Reported) Hyoscyamine Sulfate 0.125 Mg Tab.subl, 0.125 MG SL Q4H PRN for ABDOMINAL PAIN Prescribed by: GOMEZ MELGOZA on 08/19/18 1128 Ketorolac Tromethamine 10 Mg Tablet, 10 MG PO Q6H Prescribed by: GUY XIAO on 10/15/17 0248 Lisinopril 20 Mg Tablet, 20 MG PO DAILY, (Reported) Methocarbamol 500 Mg Tablet, 500 MG PO QID Prescribed by: GUY XIAO on 10/15/17 0248 Na Phos,M-B/Na Phos,Di-Ba 133 Ml Enema, 133 ML RC DAILY Prescribed by: CRYSTAL SINGLETON on 12/05/18 1103 Ondansetron 8 Mg Tab.rapdis, 8 MG PO Q6H PRN for NAUSEA/VOMITING-1ST LINE Prescribed by: GOMEZ MELGOZA on 08/19/18 1128 Ondansetron 4 Mg Tab.rapdis, 4 MG PO Q6H PRN for NAUSEA/VOMITING-1ST LINE Prescribed by: CRYSTAL SINGLETON on 12/05/18 110 Polyethylene Glycol 3350 17 Gm Powd.pack, 17 GM PO BID PRN Prescribed by: CRYSTAL SINGLETON on 12/05/18 1103 Patient Home Medication List Home Medication List Reviewed: Yes Review of Systems Review of Systems Constitutional: see HPI EENTM: see HPI Respiratory: no symptoms reported Cardiovascular: see HPI, chest pain Genitourinary: no symptoms reported Musculoskeletal: no symptoms reported Skin: no symptoms reported Psychiatric/Neurological: No Symptoms Reported Hematologic/Lymphatic: No Symptoms Reported Past Wpolgew-Hzjsmi-Nloqsl Hx Patient Social History Type Used: Cigarettes Former Smoker, Quit: Jun 21, 2018 2nd Hand Smoke Exposure: Yes Recent Foreign Travel: No Contact w/Someone Who Travel: No Recent Hopitalizations: No Immunizations Up To Date Tetanus Booster (TDap): Less than 5yrs Seasonal Allergies Seasonal Allergies: No Past Medical History Surgeries: Yes Breast, Gallbladder, Hysterectomy, Nose Respiratory: Yes Asthma Cardiac: Yes High Cholesterol, Hypertension Neurological: Yes (OCCASIONAL HEADACHES) Headaches /Migraines 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00" Weight: 267lbs. oz. 121.170278kd; 31.01 BMI Method:Stated General Appearance: No Apparent Distress, WD/WN, Anxious (hyperventilating, tearful, breathing slows when she is conversing or distracted) Eyes: Bilateral Eye Normal Inspection, Bilateral Eye PERRL, Bilateral Eye EOMI HEENT: PERRL/EOMI, TMs Normal Respiratory: No Accessory Muscle Use, No Respiratory Distress Cardiovascular: Normal Peripheral Pulses, Tachycardia Gastrointestinal: Normal Bowel Sounds, Non Tender, Soft Extremity: Normal Capillary Refill, Normal Inspection Neurologic/Psychiatric: Alert, Oriented x3 Skin: Normal Color, Warm/Dry Progress/Results/Core Measures Suspected Sepsis SIRS Temperature: Pulse: Respiratory Rate: Laboratory Tests 02/24/19 16:26: White Blood Count 10.2 Blood Pressure / Mean: Laboratory Tests 02/24/19 16:26: Creatinine 0.98, Platelet Count 415H, Total Bilirubin 0.3 Results/Orders Lab Results Laboratory Tests Test 02/24/19 16:26 Range/Units White Blood Count 10.2 4.3-11.0 10^3/uL Red Blood Count 4.44 4.35-5.85 10^6/uL Hemoglobin 13.7 11.5-16.0 G/DL Hematocrit 40 35-52 % Mean Corpuscular Volume 89 80-99 FL Mean Corpuscular Hemoglobin 31 25-34 PG Mean Corpuscular Hemoglobin Concent 35 32-36 G/DL Red Cell Distribution Width 13.0 10.0-14.5 % Platelet Count 415 H 130-400 10^3/uL Mean Platelet Volume 9.4 7.4-10.4 FL Neutrophils (%) (Auto) 57 42-75 % Lymphocytes (%) (Auto) 33 12-44 % Monocytes (%) (Auto) 9 0-12 % Eosinophils (%) (Auto) 1 0-10 % Basophils (%) (Auto) 0 0-10 % Neutrophils # (Auto) 5.8 1.8-7.8 X 10^3 Lymphocytes # (Auto) 3.4 1.0-4.0 X 10^3 Monocytes # (Auto) 0.9 0.0-1.0 X 10^3 Eosinophils # (Auto) 0.1 0.0-0.3 10^3/uL Basophils # (Auto) 0.0 0.0-0.1 10^3/uL Sodium Level 135 135-145 MMOL/L Potassium Level 3.8 3.6-5.0 MMOL/L Chloride Level 105 98-107 MMOL/L Carbon Dioxide Level 18 L 21-32 MMOL/L Anion Gap 12 5-14 MMOL/L Blood Urea Nitrogen 9 7-18 MG/DL Creatinine 0.98 0.60-1.30 MG/DL Estimat Glomerular Filtration Rate > 60 BUN/Creatinine Ratio 9 Glucose Level 103 70-105 MG/DL Calcium Level 9.1 8.5-10.1 MG/DL Corrected Calcium 8.5-10.1 MG/DL Total Bilirubin 0.3 0.1-1.0 MG/DL Aspartate Amino Transf (AST/SGOT) 18 5-34 U/L Alanine Aminotransferase (ALT/SGPT) 20 0-55 U/L Alkaline Phosphatase 123 40-136 U/L Troponin I < 0.028 <0.028 NG/ML Total Protein 8.2 6.4-8.2 GM/DL Albumin 4.6 H 3.2-4.5 GM/DL Lipase 15 8-78 U/L My Orders Orders - SOCORRO KEATING CRAB BUTCHER Cbc With Automated Diff (02/24/19 16:27) Comprehensive Metabolic Panel (02/24/19 16:27) Lipase (02/24/19 16:27) Troponin I (02/24/19 16:27) Ed Iv/Invasive Line Start (02/24/19 16:27) Ekg Tracing (02/24/19 16:27) Chest 1 View, Ap/Pa Only (02/24/19 16:27) Ct Angio Chest W (02/24/19 16:27) Ketorolac Injection (Toradol Injection) (02/24/19 16:30) Lorazepam Injection (Ativan Injection) (02/24/19 16:30) Iohexol Injection (Omnipaque 350 Mg/Ml 1 (02/24/19 16:45) Received Contrast (Hold Metformin- Contr (02/24/19 16:45) Sodium Chloride Flush (Catheter Flush Sy (02/24/19 16:45) Ns (Ivpb) (Sodium Chloride 0.9% Ivpb Bag (02/24/19 16:45) Fentanyl Injection (Sublimaze Injection (02/24/19 17:30) Antacid Suspension (Mylanta Suspension (02/24/19 17:30) Lidocaine 2% Viscous 15 Ml (Xylocaine Vi (02/24/19 17:30) Medications Given in ED Current Medications Medications Dose Ordered Sig/Brandon Route Start Time Stop Time Status Last Admin Dose Admin Al Hydrox/Mg Hydrox/Simethicone 30 ml ONCE ONCE PO 02/24/19 17:30 02/24/19 17:31 DC 02/24/19 17:42 30 ML Fentanyl Citrate 50 mcg ONCE ONCE IVP 02/24/19 17:30 02/24/19 17:31 DC 02/24/19 17:40 50 MCG Iohexol 100 ml ONCE ONCE IV 02/24/19 16:45 02/24/19 16:46 DC 02/24/19 16:58 85 ML Ketorolac Tromethamine 15 mg ONCE ONCE IVP 02/24/19 16:30 02/24/19 16:31 DC 02/24/19 16:39 15 MG Lidocaine HCl 15 ml ONCE ONCE PO 02/24/19 17:30 02/24/19 17:31 DC 02/24/19 17:42 15 ML Lorazepam 1 mg ONCE ONCE IVP 02/24/19 16:30 02/24/19 16:31 DC 02/24/19 16:40 1 MG Sodium Chloride 10 ml NEEDED PRN IV 02/24/19 16:45 02/24/19 16:58 10 ML Sodium Chloride 100 ml ONCE ONCE IV 02/24/19 16:45 02/24/19 16:46 DC 02/24/19 16:58 80 ML Vital Signs/I&O 02/24/19 16:22 Temp 36.4 Pulse 68 Resp 28 B/P (MAP) Pulse Ox 96 O2 Delivery Room Air Capillary Refill : Departure Impression Primary Impression: Right-sided chest pain Disposition: 01 HOME, SELF-CARE Condition: Stable Departure-Patient Inst. Decision time for Depature: 18:07 Referrals: WENDI BLACK MD (PCP/Family) Primary Care Physician Patient Instructions: Chest Pain Add. Discharge Instructions: 1. Return to ER for any concerns follow-up with your doctor this week Images Torso/Trunk 1 - 1 - SOCORRO KEATING CRAB BUTCHER Feb 24, 2019 16:30
[2019-02-24 16:39] LABS: BASOPHILS % (AUTO) 0 % (0-10); EOSINOPHILS # (AUTO) 0.1 10^3/uL (0.0-0.3); EOSINOPHILS % (AUTO) 1 % (0-10); HEMATOCRIT 40 % (35-52); HEMOGLOBIN 13.7 G/DL (11.5-16.0); LYMPHOCYTES # (AUTO) 3.4 X 10^3 (1.0-4.0); LYMPHOCYTES % (AUTO) 33 % (12-44); MEAN CORPUSCULAR HEMOGLOBIN 31 PG (25-34); MEAN CORPUSCULAR HGB CONC 35 G/DL (32-36); MEAN CORPUSCULAR VOLUME 89 FL (80-99); MEAN PLATELET VOLUME 9.4 FL (7.4-10.4); MONOCYTES # (AUTO) 0.9 X 10^3 (0.0-1.0); MONOCYTES % (AUTO) 9 % (0-12); NEUTROPHILS # (AUTO) 5.8 X 10^3 (1.8-7.8); NEUTROPHILS % (AUTO) 57 % (42-75); PLATELET COUNT 415 10^3/uL (130-400); WHITE BLOOD COUNT 10.2 10^3/uL (4.3-11.0)
[2019-02-24] MEDS ORDERED: HOLD METFORMIN - RECEIVED CONTRAST 20 ML VIAL IV SCH (16:45)
[2019-02-24] MEDS ORDERED: CATHETER FLUSH 10 ML SYR IV PRN (16:45)
[2019-02-24] MEDS ORDERED: NS 100 ML (IVPB) BAG IV ONE (16:45)
[2019-02-24] MEDS ORDERED: IOHEXOL 350 MG/ML 100 ML (OMNIPAQUE 350) VIAL IV ONE (16:45)
--- NOTE | 2019-02-24 16:56 | Diagnostic Imaging Report ---
INDICATION: Chest pain COMPARISON: 10/15/2017 FINDINGS: Frontal view of the chest demonstrates clear lungs bilaterally. The heart size is normal. There is no pneumothorax. Osseous structures are normal. IMPRESSION: No acute findings. Normal chest. Dictated by: Dictated on workstation # [id number]
[2019-02-24 16:58] LABS: ALANINE AMINOTRANSFERASE 20 U/L (0-55); ALBUMIN 4.6 GM/DL (3.2-4.5); ALKALINE PHOSPHATASE 123 U/L (40-136); BILIRUBIN,TOTAL 0.3 MG/DL (0.1-1.0); BUN/CREATININE RATIO 9; CALCIUM 9.1 MG/DL (8.5-10.1); CARBON DIOXIDE 18 MMOL/L (21-32); CHLORIDE 105 MMOL/L (98-107); CREATININE SERUM 0.98 MG/DL (0.60-1.30); GFR ESTIMATED > 60; GLUCOSE 103 MG/DL (70-105); LIPASE 15 U/L (8-78); POTASSIUM 3.8 MMOL/L (3.6-5.0); SODIUM 135 MMOL/L (135-145); TOTAL PROTEIN 8.2 GM/DL (6.4-8.2)
--- NOTE | 2019-02-24 17:06 | Diagnostic Imaging Report ---
PROCEDURE: CT angiography of the chest with contrast. TECHNIQUE: Multiple contiguous axial images were obtained through the chest after uneventful bolus administration of intravenous contrast. 3D reconstructed CTA MIP acquisitions were also performed. Auto Exposure Controls were utilized during the CT exam to meet ALARA standards for radiation dose reduction. INDICATION: Chest pain. COMPARISON: 2015. FINDINGS: There is no pulmonary embolism. Heart size is normal. No pericardial effusion. Aorta is normal in caliber. No axillary, supraclavicular or mediastinal lymphadenopathy. Limited views of the upper abdomen reveal absent gallbladder. There is mild atelectasis in the lung bases. No consolidation. No edema or pneumonia. No pleural effusion or pneumothorax. There are no suspicious osseous lesions. IMPRESSION: 1. No pulmonary embolism. 2. Clear lungs. Dictated by: Dictated on workstation # [id number]
[2019-02-24] MEDS ORDERED: ANTACID SUSP 30 ML UDC (MYLANTA) PO ONE (17:30)
[2019-02-24] MEDS ORDERED: fentaNYL INJECTION 100 MCG/2 ML AMP IVP ONE (17:30)
[2019-02-24] MEDS ORDERED: LIDOCAINE 2% VISCOUS 15 ML UDC PO ONE (17:30)
[2019-02-24 18:33] VITALS: BP 131/90
== END 2019-02-24 18:33 | disposition home or self-care (01) ==
LOC: ER 16:22
DX: R07.9 Chest pain, unspecified (principal); J45.909 Unspecified asthma, uncomplicated; I10 Essential (primary) hypertension; E78.00 Pure hypercholesterolemia, unspecified; G43.909 Migraine, unspecified, not intractable, without status migrainosus; F41.9 Anxiety disorder, unspecified; F32.9 Major depressive disorder, single episode, unspecified; Z87.19 Personal history of other diseases of the digestive system; Z87.440 Personal history of urinary (tract) infections; Z87.442 Personal history of urinary calculi; Z88.2 Allergy status to sulfonamides; Z88.1 Allergy status to other antibiotic agents; Z88.5 Allergy status to narcotic agent; Z77.22 Contact with and (suspected) exposure to environmental tobacco smoke (acute) (chronic)
CPT/HCPCS: 36415; 71045; 71275; 80053; 83690; 84484; 85025; 93005; 96374; 96375

== ENCOUNTER 2019-05-15 18:24 | Emergency (ER) | payer SELFPAY ==
[~2019-05-15] VITALS: Ht 173 cm; Wt 123.0 kg
[~2019-05-15 18:24] MED LIST changes: +TRM50T PO
--- NOTE | 2019-05-15 18:38 | NUR ---
NOTIFIED NURSE PRISCILLA OF PT HAVING CP UPON PT ARRIVAL
[2019-05-15] MEDS ORDERED: NITROGLYCERIN 0.4 MG SL TABS BTL 25'S SL PRN (19:00)
[2019-05-15] MEDS ORDERED: ASPIRIN 81 MG CHEW (CHILDREN'S ASA) PO ONE (19:00)
--- NOTE | 2019-05-15 19:01 | ED Chest Pain ---
General Chief Complaint: Chest Pain Stated Complaint: SOB,CP, NUMBNESS Nursing Triage Note: PATIENT STATES THAT SHE WOKE UP WITH A BUCIO, DEVELOPED NAUSEA, SOB AND CHEST PAIN THE DAY GONE ON. Nursing Sepsis Screen: No Definite Risk Source: patient Exam Limitations: no limitations History of Present Illness Date Seen by Provider: May 15, 2019 Time Seen by Provider: 18:59 Initial Comments Physical injury to feel like she or her or to ER with reports of chest pain. She awakened with a global headache this morning, has had some nausea since then, shortness of breath and chest pain as the day has gone on. No chest pain currently other than a "squeezing sensation" left side lateral chest. She does have shortness of breath. She started estradiol 2 weeks ago. She is an "prediabetic" with hypercholesterolemia and hypertension no personal history of heart disease. Timing/Duration: changing over time Severity/Quality: moderate Location: central Radiation: no radiation Activities at Onset: none ASA po [employer] COMM[employer] SERVICE OFFICER: No NTG SL [employer] COMM[employer] SERVICE OFFICER: No Associated Symptoms: nausea/vomiting, shortness of breath Allergies and Home Medications Allergies Coded Allergies: Sulfa (Sulfonamide Antibiotics) (Unverified Allergy, Unknown, 07/31/14) amoxicillin (Unverified Allergy, Unknown, 07/31/14) cyclobenzaprine (Unverified Allergy, Unknown, 01/15/17) morphine (Unverified Allergy, Unknown, 07/31/14) paroxetine (Unverified Allergy, Unknown, 07/31/14) sulfamethoxazole (Unverified Allergy, Unknown, 07/31/14) tramadol (Verified Allergy, Unknown, itching, 12/21/16) trimethoprim (Unverified Allergy, Unknown, 07/31/14) acetaminophen (Verified Adverse Reaction, Intermediate, nausea, 12/21/16) codeine (Verified Adverse Reaction, Intermediate, nausea, 12/21/16) hydrocodone (Unverified Adverse Reaction, Intermediate, nausea, 12/21/16) Home Medications Alprazolam 2 Mg Tablet, 2 MG PO TID PRN for ANXIETY, (Reported) Gabapentin 300 Mg Tablet, 900 MG PO BID, (Reported) Hyoscyamine Sulfate 0.125 Mg Tab.subl, 0.125 MG SL Q4H PRN for ABDOMINAL PAIN Prescribed by: GOMEZ MELGOZA on 08/19/18 1128 Ketorolac Tromethamine 10 Mg Tablet, 10 MG PO Q6H Prescribed by: GUY XIAO on 10/15/17247 Lisinopril 20 Mg Tablet, 20 MG PO DAILY, (Reported) Methocarbamol 500 Mg Tablet, 500 MG PO QID Prescribed by: GUY XIAO on 10/15/17247 Na Phos,M-B/Na Phos,Di-Ba 133 Ml Enema, 133 ML RC DAILY Prescribed by: CRYSTAL SINGLETON on 12/05/18 110 Ondansetron 8 Mg Tab.rapdis, 8 MG PO Q6H PRN for NAUSEA/VOMITING-1ST LINE Prescribed by: GOMEZ MELGOZA on 08/19/18 112 Ondansetron 4 Mg Tab.rapdis, 4 MG PO Q6H PRN for NAUSEA/VOMITING-1ST LINE Prescribed by: CRYSTAL SINGLETON on 12/05/18 110 Polyethylene Glycol 3350 17 Gm Powd.pack, 17 GM PO BID PRN Prescribed by: CRYSTAL SINGLETON on 12/05/18 110 Patient Home Medication List Home Medication List Reviewed: Yes Review of Systems Review of Systems Constitutional: see HPI EENTM: No Symptoms Reported Respiratory: See HPI; Denies Cough; Orthopnea, Shortness of Air Cardiovascular: No Symptoms Reported Gastrointestinal: No Symptoms Reported Genitourinary: No Symptoms Reported Musculoskeletal: no symptoms reported Skin: no symptoms reported Psychiatric/Neurological: No Symptoms Reported Endocrine: No Symptoms Reported Hematologic/Lymphatic: No Symptoms Reported Past Scyyqlh-Zsnxnq-Ircsfd Hx Patient Social History Alcohol Use: Denies Use Number of Drinks Today: AA Alcohol Beverage of Choice: Beer Recreational Drug Use: No Smoking Status: Current Everyday Smoker Type Used: Cigarettes Former Smoker, Quit: Jun 21, 2018 2nd Hand Smoke Exposure: Yes Recent Foreign Travel: No Contact w/Someone Who Travel: No Recent Infectious Disease Expo: No Recent Hopitalizations: No Physical Abuse: No Sexual Abuse: No Immunizations Up To Date Tetanus Booster (TDap): Less than 5yrs PED Vaccines UTD: Yes Seasonal Allergies Seasonal Allergies: No Past Medical History Surgeries: Yes Breast, Gallbladder, Hysterectomy, Nose Respiratory: Yes Asthma Cardiac: Yes High Cholesterol, Hypertension Neurological: Yes (OCCASIONAL HEADACHES) Headaches /Migraines 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 Sexually Transmitted Disease: No HIV/AIDS: No Genitourinary: Yes Kidney Stones, UTI-Chronic Gastrointestinal: Yes Chronic Constipation Musculoskeletal: Yes (LEFT FOOT FRACTURE) Chronic Back Pain, Fractures Endocrine: Yes (PREDIABETIC AT LAST PCP APPOINTMENT) HEENT: No Cancer: No Psychosocial: Yes (SUICIDAL IDEATION) Anxiety, Depression Integumentary: No Blood Disorders: No Adverse Reaction/Blood Tranf: No Family Medical History No Pertinent Family Hx Physical Exam Vital Signs Vital Signs - First Documented 05/15/19 18:35 Temp 36.8 Pulse 81 Resp 20 B/P (MAP) 122/82 (95) Pulse Ox 96 Capillary Refill : Less Than 3 Seconds Height, Weight, BMI Height: 5'8.00" Weight: 267lbs. oz. [id number]; 41.00 BMI Method:Stated General Appearance: No Apparent Distress, WD/WN, Obese HEENT: PERRL/EOMI, TMs Normal Neck: Full Range of Motion, Normal Inspection Respiratory: Lungs Clear, Normal Breath Sounds, No Accessory Muscle Use, No Respiratory Distress Cardiovascular: Regular Rate, Rhythm, Normal Peripheral Pulses Gastrointestinal: Normal Bowel Sounds, Non Tender, Soft Extremity: Normal Capillary Refill, Normal Inspection Neurologic/Psychiatric: Alert, Oriented x3 Skin: Normal Color, Warm/Dry Progress/Results/Core Measures Results/Orders Lab Results Laboratory Tests Test 05/15/19 18:50 05/15/19 19:14 05/15/19 20:56 Range/Units White Blood Count 6.7 4.3-11.0 10^3/uL Red Blood Count 3.89 L 4.35-5.85 10^6/uL Hemoglobin 12.0 11.5-16.0 G/DL Hematocrit 35 35-52 % Mean Corpuscular Volume 90 80-99 FL Mean Corpuscular Hemoglobin 31 25-34 PG Mean Corpuscular Hemoglobin Concent 35 32-36 G/DL Red Cell Distribution Width 12.5 10.0-14.5 % Platelet Count 308 130-400 10^3/uL Mean Platelet Volume 9.1 7.4-10.4 FL Neutrophils (%) (Auto) 67 42-75 % Lymphocytes (%) (Auto) 24 12-44 % Monocytes (%) (Auto) 7 0-12 % Eosinophils (%) (Auto) 2 0-10 % Basophils (%) (Auto) 0 0-10 % Neutrophils # (Auto) 4.5 1.8-7.8 X 10^3 Lymphocytes # (Auto) 1.6 1.0-4.0 X 10^3 Monocytes # (Auto) 0.5 0.0-1.0 X 10^3 Eosinophils # (Auto) 0.1 0.0-0.3 10^3/uL Basophils # (Auto) 0.0 0.0-0.1 10^3/uL Sodium Level 136 135-145 MMOL/L Potassium Level 3.3 L 3.6-5.0 MMOL/L Chloride Level 103 98-107 MMOL/L Carbon Dioxide Level 21 21-32 MMOL/L Anion Gap 12 5-14 MMOL/L Blood Urea Nitrogen 8 7-18 MG/DL Creatinine 0.68 0.60-1.30 MG/DL Estimat Glomerular Filtration Rate > 60 BUN/Creatinine Ratio 12 Glucose Level 88 70-105 MG/DL Calcium Level 9.0 8.5-10.1 MG/DL Corrected Calcium 8.8 8.5-10.1 MG/DL Magnesium Level 1.6 1.6-2.4 MG/DL Total Bilirubin 0.2 0.1-1.0 MG/DL Aspartate Amino Transf (AST/SGOT) 19 5-34 U/L Alanine Aminotransferase (ALT/SGPT) 21 0-55 U/L Alkaline Phosphatase 107 40-136 U/L Myoglobin 34.9 10.0-92.0 NG/ML Troponin I < 0.028 < 0.028 <0.028 NG/ML B-Type Natriuretic Peptide < 10.0 <100.0 PG/ML Total Protein 7.2 6.4-8.2 GM/DL Albumin 4.3 3.2-4.5 GM/DL Serum Test, Qualitative NEGATIVE NEGATIVE Prothrombin Time 13.9 12.2-14.7 SEC INR Comment 1.0 0.8-1.4 Activated Partial Thromboplast Time 30 24-35 SEC D-Dimer 0.67 H 0.00-0.49 UG/ML My Orders Orders - SOCORRO KEATING APRN Cbc With Automated Diff (05/15/19 18:57) Magnesium (05/15/19 18:57) Chest 1 View, Ap/Pa Only (05/15/19 18:57) Ekg Tracing (05/15/19 18:57) Comprehensive Metabolic Panel (05/15/19 18:57) Myoglobin Serum (05/15/19 18:57) Protime With Inr (05/15/19 18:57) Partial Thromboplastin Time (05/15/19 18:57) O2 (05/15/19 18:57) Monitor-Rhythm Ecg Trace Only (05/15/19 18:57) Lipid Panel (05/16/19 06:00) Ed Iv/Invasive Line Start (05/15/19 18:57) BNP (05/15/19 18:57) Fibrin Degradation Products (05/15/19 18:57) Troponin I (05/15/19 18:57) Nitroglycerin 0.4 Mg Btl 25's (Nitrostat (05/15/19 19:00) Aspirin Chewable Tablet (Baby Aspirin Ch (05/15/19 19:00) Hcg,Qualitative Serum (05/15/19 18:58) Ns Iv 500 Ml (Sodium Chloride 0.9%) (05/15/19 19:15) Ketorolac Injection (Toradol Injection) (05/15/19 19:15) Ct Angio Chest W (05/15/19 19:49) Fentanyl Injection (Sublimaze Injection (05/15/19 20:00) Troponin I (05/15/19 20:50) Iohexol Injection (Omnipaque 350 Mg/Ml 1 (05/15/19 20:30) Received Contrast (Hold Metformin- Contr (05/15/19 20:30) Ns (Ivpb) (Sodium Chloride 0.9% Ivpb Bag (05/15/19 20:30) Diphenhydramine Injection (Benadryl Inje (05/15/19 21:30) Prochlorperazine Injection (Compazine In (05/15/19 21:30) Lidocaine 2% Viscous 15 Ml (Xylocaine Vi (05/15/19 21:30) Antacid Suspension (Mylanta Suspension (05/15/19 21:30) Medications Given in ED Current Medications Medications Dose Ordered Sig/Brandon Route Start Time Stop Time Status Last Admin Dose Admin Al Hydrox/Mg Hydrox/Simethicone 30 ml ONCE ONCE PO 05/15/19 21:30 05/15/19 21:31 DC 05/15/19 21:28 30 ML Aspirin 324 mg ONCE ONCE PO 05/15/19 19:00 05/15/19 19:01 DC 05/15/19 19:08 324 MG Diphenhydramine HCl 25 mg ONCE ONCE IVP 05/15/19 21:30 05/15/19 21:31 DC 05/15/19 21:25 25 MG Fentanyl Citrate 50 mcg ONCE ONCE IVP 05/15/19 20:00 05/15/19 20:01 DC 05/15/19 19:57 50 MCG Iohexol 150 ml ONCE ONCE IV 05/15/19 20:30 05/15/19 20:31 DC 05/15/19 20:19 125 ML Ketorolac Tromethamine 15 mg ONCE ONCE IVP 05/15/19 19:15 05/15/19 19:16 DC 05/15/19 19:10 15 MG Lidocaine HCl 10 ml ONCE ONCE PO 05/15/19 21:30 05/15/19 21:31 DC 05/15/19 21:28 10 ML Nitroglycerin 0.4 mg UD PRN SL 05/15/19 19:00 05/15/19 19:07 0.4 MG Prochlorperazine Edisylate 5 mg ONCE ONCE IV 05/15/19 21:30 05/15/19 21:31 DC 05/15/19 21:27 5 MG Sodium Chloride 100 ml ONCE ONCE IV 05/15/19 20:30 05/15/19 20:31 DC 05/15/19 20:19 80 ML Vital Signs/I&O 05/15/19 18:35 Temp 36.8 Pulse 81 Resp 20 B/P (MAP) 122/82 (95) Pulse Ox 96 Blood Pressure Mean: 95 POS Diagnostic Imaging Diagonstic Imaging: CT Comments NAME: BRITT BARNES [facility] REC#: [id number] PT STATUS: REG ER : 1980 PHYSICIAN: SOCORRO KEATING APRN ADMIT DATE: 05/15/19/ER Draft POSDate of Exam:05/15/19 CT ANGIO CHEST W PROCEDURE: CT angiography of the chest with contrast. TECHNIQUE: Multiple contiguous axial images were obtained through the chest after uneventful bolus administration of intravenous contrast. 3D reconstructed CTA MIP acquisitions were also performed. Auto Exposure Controls were utilized during the CT exam to meet ALARA standards for radiation dose reduction. INDICATION: Chest pain and shortness of breath Aorta appears normal. There are no pulmonary emboli seen. Lungs are clear. There are no effusions or pneumothoraces. There is no hilar or mediastinal lymphadenopathy. IMPRESSION: Negative CTA chest Dictated on workstation # [id number] Dict: 05/15/192020 Trans: 05/15/192026 [facility], [facility] [id number] Interpreted by: BOBY SILVA MD Electronically signed by: Departure Communication (Admissions) [id number]-she is pain-free after GI cocktail Impression Primary Impression: Chest pain Qualified Codes: R07.9 - Chest pain, unspecified Disposition: HOME, SELF-CARE Condition: Stable Departure-Patient Inst. Decision time for Depature: 22:13 Referrals: ROSARIO TURK DO (PCP/Family) Primary Care Physician Patient Instructions: Chest Pain That Is Not Caused by the Heart (DC) Add. Discharge Instructions: . Return to ER for any concerns 2. Follow-up with your doctor next week SOCORRO KEATING APRN May 15, 2019 19:01 POS
[2019-05-15 19:02] LABS: BASOPHILS % (AUTO) 0 % (0-10); EOSINOPHILS # (AUTO) 0.1 10^3/uL (0.0-0.3); EOSINOPHILS % (AUTO) 2 % (0-10); HEMATOCRIT 35 % (35-52); LYMPHOCYTES # (AUTO) 1.6 X 10^3 (1.0-4.0); LYMPHOCYTES % (AUTO) 24 % (12-44); MEAN CORPUSCULAR HEMOGLOBIN 31 PG (25-34); MEAN CORPUSCULAR HGB CONC 35 G/DL (32-36); MEAN CORPUSCULAR VOLUME 90 FL (80-99); MEAN PLATELET VOLUME 9.1 FL (7.4-10.4); MONOCYTES # (AUTO) 0.5 X 10^3 (0.0-1.0); MONOCYTES % (AUTO) 7 % (0-12); NEUTROPHILS # (AUTO) 4.5 X 10^3 (1.8-7.8); NEUTROPHILS % (AUTO) 67 % (42-75); PLATELET COUNT 308 10^3/uL (130-400); RED CELL DISTRIBUTION WIDTH 12.5 % (10.0-14.5); WHITE BLOOD COUNT 6.7 10^3/uL (4.3-11.0)
[2019-05-15] MEDS ORDERED: KETOROLAC 30 MG/ML VIAL IVP ONE (19:15)
[2019-05-15] MEDS ORDERED: NS IV 500 ML 500 ML IV SCH (19:15)
[2019-05-15 19:26] LABS: ALANINE AMINOTRANSFERASE 21 U/L (0-55); ALBUMIN 4.3 GM/DL (3.2-4.5); ALKALINE PHOSPHATASE 107 U/L (40-136); BILIRUBIN,TOTAL 0.2 MG/DL (0.1-1.0); BUN/CREATININE RATIO 12; CARBON DIOXIDE 21 MMOL/L (21-32); CHLORIDE 103 MMOL/L (98-107); CREATININE SERUM 0.68 MG/DL (0.60-1.30); GFR ESTIMATED > 60; GLUCOSE 88 MG/DL (70-105); MAGNESIUM 1.6 MG/DL (1.6-2.4); POTASSIUM 3.3 MMOL/L (3.6-5.0); SODIUM 136 MMOL/L (135-145); TOTAL PROTEIN 7.2 GM/DL (6.4-8.2)
[2019-05-15 19:33] LABS: PROTHROMBIN TIME PATIENT 13.9 SEC (12.2-14.7)
--- NOTE | 2019-05-15 19:43 | Diagnostic Imaging Report ---
INDICATION: Chest pain. Portable chest 7:28 PM FINDINGS: Heart size and pulmonary vascularity are normal. Lungs are clear. There are no effusions or pneumothoraces. IMPRESSION: Negative chest. Dictated by: Dictated on workstation # [id number]
[2019-05-15] MEDS ORDERED: fentaNYL INJECTION 100 MCG/2 ML AMP IVP ONE (20:00)
--- NOTE | 2019-05-15 20:27 | Diagnostic Imaging Report ---
PROCEDURE: CT angiography of the chest with contrast. TECHNIQUE: Multiple contiguous axial images were obtained through the chest after uneventful bolus administration of intravenous contrast. 3D reconstructed CTA MIP acquisitions were also performed. Auto Exposure Controls were utilized during the CT exam to meet ALARA standards for radiation dose reduction. INDICATION: Chest pain and shortness of breath Aorta appears normal. There are no pulmonary emboli seen. Lungs are clear. There are no effusions or pneumothoraces. There is no hilar or mediastinal lymphadenopathy. IMPRESSION: Negative CTA chest Dictated by: Dictated on workstation # [id number]
[2019-05-15] MEDS ORDERED: IOHEXOL 350 MG/ML 150 ML (OMNIPAQUE 350) VIAL IV ONE (20:30)
[2019-05-15] MEDS ORDERED: HOLD METFORMIN - RECEIVED CONTRAST 20 ML VIAL IV SCH (20:30)
[2019-05-15] MEDS ORDERED: NS 100 ML (IVPB) BAG IV ONE (20:30)
--- NOTE | 2019-05-15 21:01 | NUR ---
Received report from Joana Rey RN to assume care of pt.
[2019-05-15] MEDS ORDERED: diphenhydrAMINE 50 MG/ML INJ (BENADRYL) IVP ONE (21:30)
[2019-05-15] MEDS ORDERED: PROCHLORPERAZINE 10 MG/2ML INJ (COMPAZINE) IV ONE (21:30)
[2019-05-15] MEDS ORDERED: ANTACID SUSP 30 ML UDC (MYLANTA) PO ONE (21:30)
[2019-05-15] MEDS ORDERED: LIDOCAINE 2% VISCOUS 15 ML UDC PO ONE (21:30)
[2019-05-15 22:13] VITALS: BP 122/82
--- OUTSIDE RECORDS SUMMARY | 2019-06-10 16:59 | XMS REPORT | Continuity of Care Document ---
Author Organization Unknown Address Unknown Phone Unavailable Allergies Active Description [...] Latex OA N/A N/A 04/26/2013 Yes amoxicillin [id number] Drug Aller gy Unknown N/A 07/31/2014 Yes hydrocodone [id number] Drug Aller gy Unknown N/A 07/31/2014 Yes morphine [id number] Drug Allergy Unknown N/A 07/31/2014 Yes paroxetine [id number] Drug Allerg y Unknown N/A 07/31/2014 Yes Sulfa (Sulfonamide Antibiotics) [id number] Drug Allergy Unknown N/A 015 Yes sulfamethoxazole [id number] Drug Allergy Unknown N/A 07/31/2014 Yes trimethoprim [id number] Drug Allergy Unknown N/A 07/31/2014 Yes Abilify 2 mg tablet Drug Aller gy N/A N/A 08/22/2014 Yes acetaminophen [id number] Elijah g Allergy Moderate nausea 12/21/2016 Yes codeine [id number] Drug Allergy Moderate nausea 12/21/2016 Yes hydrocodone [id number] Drug Aller gy Moderate nausea 12/21/2016 Yes tramadol [id number] Drug Allergy Unknown itching 12/21/2016 Yes cyclobenzaprine [id number] D rug Allergy Unknown N/A 01/15/2017 Medications There is no data. Problems Date Dx Coded Attending Type Code Diagnosis Diagnosed By 12/25/2007 682.9 CELL ULITIS AND ABSCESS OF UNSPECIFIED SITES 12/25/2007 884.0 WOUN D OPEN UPPER LIMB 12/25/2007 682.9 CELL ULITIS AND ABSCESS OF UNSPECIFIED SITES 12/25/2007 884.0 WOUN D OPEN UPPER LIMB 12/25/2007 682.9 CELL ULITIS AND ABSCESS OF UNSPECIFIED SITES 12/25/2007 884.0 WOUN D OPEN UPPER LIMB 12/25/2007 GIBSON COMPLEX [employer] L[employer]IGATION PARALEGAL, MANAV WHITEH 682.9 CELLULITIS AND ABSCESS OF UNSPECIFIED SITES 12/25/2007 GIBSON [employer] LITIGATION PARALEGAL, MANAV LONG 884.0 WOUND OPEN UPPER LIMB 12/25/2007 GIBSON COMPLEX [employer]ERCIAL LITIGATION PARALEGAL, MANAV LONG 682.9 CELLULITIS AND ABSCESS OF UNSPECIFIED SITES 12/25/2007 GIBSON [employer]X [employer]ER[employer] LITIGATION PARALEGAL, MANAV WHITEH 884.0 WOUND OPEN UPPER LIMB 12/25/2007 682.9 CELL ULITIS AND ABSCESS OF UNSPECIFIED SITES 12/25/2007 884.0 Woun d Open Upper Limb 12/25/2007 DIMPLE PEÑALOZA DO 682.9 CELLULITIS AND ABSCESS OF UNSPECIFIED SITES 12/25/2007 DIMPLE PEÑALOZA DO 884.0 Wound Open Upper Limb 12/25/2007 682.9 CELL ULITIS AND ABSCESS OF UNSPECIFIED SITES 12/25/2007 884.0 Woun d Open Upper Limb 12/25/2007 682.9 CELL ULITIS AND ABSCESS OF UNSPECIFIED SITES 12/25/2007 884.0 Woun d Open Upper Limb 12/25/2007 682.9 CELL ULITIS AND ABSCESS OF UNSPECIFIED SITES 12/25/2007 884.0 Woun d Open Upper Limb 12/25/2007 DIMPLE PEÑALOZA DO [...] Wound Open Upper Limb 12/25/2007 PAIGE HECK [facility] 682.9 CELLULITIS AND ABSCESS OF UNSPECIFIED SITES 12/25/2007 GIBSONERIN HECK MANAV ALVES 884.0 Wound Open Upper Limb 12/25/2007 MAU NAVARRO APRN A 68 2.9 CELLULITIS AND ABSCESS OF UNSPECIFIED SITES 12/25/2007 RAMONMILADY Dupont APRNIDI A 88 4.0 Wound Open Upper Limb 12/25/2007 PAIGE HECK MANAV ALVES 682.9 CELLULITIS AND ABSCESS OF UNSPECIFIED SITES 12/25/2007 PAIGE HECK MANAV ALVES 884.0 Wound Open Upper Limb 12/25/2007 WENDI BLACK MD 682 .9 CELLULITIS AND ABSCESS OF UNSPECIFIED SITES 12/25/2007 WENDI BLACK MD 884 .0 Wound Open Upper Limb 12/25/2007 WENDI BLACK MD 682 .9 CELLULITIS AND ABSCESS OF UNSPECIFIED SITES 12/25/2007 WENDI BLACK MD N 884 .0 Wound Open Upper Limb 12/25/2007 DIMPLE PEÑALOZA DO K 682.9 CELLULITIS AND ABSCESS OF UNSPECIFIED SITES 12/25/2007 AQUILES PEÑALOZA DOA K 884.0 Wound Open Upper Limb 12/25/2007 PAIGE HECK MANAV WHITEH 682.9 CELLULITIS AND ABSCESS OF UNSPECIFIED SITES 12/25/2007 PAIGE HECK MANAV WHITEH 884.0 Wound Open Upper Limb 12/25/2007 AQUILES PEÑALOZA DOA K 682.9 CELLULITIS AND ABSCESS OF UNSPECIFIED SITES 12/25/2007 AQUILES PEÑALOZA DOA K 884.0 Wound Open Upper Limb 12/25/2007 WENDI BLACK MD N 682 .9 CELLULITIS AND ABSCESS OF UNSPECIFIED SITES 12/25/2007 WENDI BLACK MD N 884 .0 Wound Open Upper Limb 12/25/2007 WENDI BLACK MD N 682 .9 CELLULITIS AND ABSCESS OF UNSPECIFIED SITES 12/25/2007 WENDI BLACK MD N 884 .0 Wound Open Upper Limb 12/25/2007 TIN HEREDIA PSYD 682.9 CELLULITIS AND ABSCESS OF UNSPECIFIED SITES 12/25/2007 TIN HEREDIA PSYD L 884.0 Wound Open Upper Limb 12/25/2007 SOFIA MD, WENDI N 682 .9 CELLULITIS AND ABSCESS OF UNSPECIFIED SITES 12/25/2007 WENDI BLACK MD N 884 .0 Wound Open Upper Limb 12/25/2007 WENDI BLACK MD N 682 .9 CELLULITIS AND ABSCESS OF UNSPECIFIED SITES 12/25/2007 WENDI BLACK MD N 884 .0 Wound Open Upper Limb 12/25/2007 CHRISTEL PANEL ASSEMBLER, CARLOS M 682.9 CELLULITIS AND ABSCESS OF UNSPECIFIED SITES 12/25/2007 CHRISTEL PANEL ASSEMBLER, CARLOS M 884.0 Wound Open Upper Limb 12/25/2007 CHRISTEL PANEL ASSEMBLER, CARLOS M 682.9 CELLULITIS AND ABSCESS OF UNSPECIFIED SITES 12/25/2007 CHRISTEL PANEL ASSEMBLER, CARLOS M 884.0 Wound Open Upper Limb 12/25/2007 CHRISTEL PANEL ASSEMBLER, CARLOS M 682.9 CELLULITIS AND ABSCESS OF UNSPECIFIED SITES 12/25/2007 CHRISTEL PANEL ASSEMBLER, CARLOS M 884.0 Wound Open Upper Limb 12/25/2007 CHRISTEL PANEL ASSEMBLER, CARLOS M 682.9 CELLULITIS AND ABSCESS OF UNSPECIFIED SITES 12/25/2007 CHRISTEL PANEL ASSEMBLER, CARLOS M 884.0 Wound Open Upper Limb [...] DIMPLE K 301.83 PD BORDERLINE 05/27/2010 GIBSON [employer] PARALEGAL, MANAV ALVES 296.90 MO MOOD DIS NOS 05/27/2010 GIBSON [employer] LITIGATION PARALEGAL, MANAV ALVES 301.83 PD BORDERLINE 05/27/2010 RAMON COMPLEX COMMERCIAL LITIGATION PARALEGAL, MAU A 296.90 MO MOOD DIS NOS 05/27/2010 RAMON COMPLEX COMMERCIAL LITIGATION PARALEGAL, MAU A 301.83 PD BORDERLINE 05/27/2010 GIBSON [employer]ER[employer] LITIGATION PARALEGAL, MANAV WHITEH 296.90 MO MOOD DIS NOS 05/27/2010 GIBSON [employer]ER[employer] LITIGATION PARALEGAL, MANAV WHITEH 301.83 PD BORDERLINE 05/27/2010 WENDI BLACK MD N 296 .90 MO MOOD DIS NOS 05/27/2010 WENDI BLACK MD N 301 .83 PD BORDERLINE 05/27/2010 WENDI BLACK MD N 296 .90 MO MOOD DIS NOS 05/27/2010 WENDI BLACK MD N 301 .83 PD BORDERLINE 05/27/2010 PEÑALOZA DO, DIMPLE K 296.90 MO MOOD DIS NOS 05/27/2010 PEÑALOZA DO, DIMPLE K 301.83 PD BORDERLINE 05/27/2010 GIBSON [employer] LITIGATION PARALEGAL, MANAV WHITEH 296.90 MO MOOD DIS NOS 05/27/2010 GIBSON UMANG MANAV LONG 301.83 PD BORDERLINE 05/27/2010 PEÑALOZA DO, DIMPLE K 296.90 MO MOOD DIS NOS 05/27/2010 PEÑALOZA DO, DIMPLE K 301.83 PD BORDERLINE 05/27/2010 WENDI BLACK MD N 296 .90 MO MOOD DIS NOS 05/27/2010 WENDI BLACK MD N 301 .83 PD BORDERLINE 05/27/2010 SOFIA MD, WENDI N 296 .90 MO MOOD DIS NOS 05/27/2010 SOFIA RICE, WENDI N 301 .83 PD BORDERLINE 05/27/2010 TIN HEREDIA PSYD L 296.90 MO MOOD DIS NOS 05/27/2010 TIN HEREDIA PSYD L 301.83 PD BORDERLINE 05/27/2010 INDIA BLACK MDY N 296 .90 MO MOOD DIS NOS 05/27/2010 WENDI BLACK MD N 301 .83 PD BORDERLINE 05/27/2010 SOFIA RICE WENDI N 296 .90 MO MOOD DIS NOS 05/27/2010 SOFIA RICE WENDI N 301 .83 PD BORDERLINE 05/27/2010 CHRISTEL PANEL ASSEMBLER, CARLOS M 296.90 MO MOOD DIS NOS 05/27/2010 CHRISTEL PANEL ASSEMBLER, CARLOS M 301.83 PD BORDERLINE 05/27/2010 CHRISTEL PANEL ASSEMBLER, CARLOS M 296.90 MO MOOD DIS NOS 05/27/2010 CHRISTEL PANEL ASSEMBLER, CARLOS M 301.83 PD BORDERLINE 05/27/2010 CHRISTEL PANEL ASSEMBLER, CARLOS M 296.90 MO MOOD DIS NOS 05/27/2010 CHRISTEL PANEL ASSEMBLER, CARLOS M 301.83 PD BORDERLINE 05/27/2010 CHRISTEL PANEL ASSEMBLER, CARLOS M 296.90 MO MOOD DIS NOS 05/27/2010 CHRISTEL PANEL ASSEMBLER, CARLOS M 301.83 PD BORDERLINE 06/17/2010 296.80 [...] 06/17/2010 300.02 AN GEN ANXIETY 06/17/2010 PEÑALOZA DIMPLE YEPEZ 296.80 MO BIPOLAR NOS 06/17/2010 PEÑALOZA DODIMPLE 300.02 AN GEN ANXIETY 06/17/2010 296.80 MO [...] ALVES 296.80 MO BIPOLAR NOS 06/17/2010 GIBSON [employer] LIT[employer]ATION PARALEGAL, MANAV ALVES 300.02 AN GEN ANXIETY 06/17/2010 RAMON APRN, MAU A 296.80 MO BIPOLAR NOS 06/17/2010 RAMON HECK, MAU A 300.02 AN GEN ANXIETY 06/17/2010 GIBSON UMANG, MANAV ALVES 296.80 MO BIPOLAR NOS 06/17/2010 GIBSON UMANG, MANAV ALVES 300.02 AN GEN ANXIETY 06/17/2010 WENDI BLACK MD 296 .80 MO BIPOLAR NOS 06/17/2010 WENDI BLACK MD 300 .02 AN GEN ANXIETY 06/17/2010 WENDI BLACK MD 296 .80 MO BIPOLAR NOS 06/17/2010 WENDI BLACK MD 300 .02 AN GEN ANXIETY 06/17/2010 PEÑALOZA DO, DIMPLE K 296.80 MO BIPOLAR NOS 06/17/2010 PEÑALOZA DO, DIMPLE K 300.02 AN GEN ANXIETY 06/17/2010 GIBSON [employer]ER[employer] LITIGATION PARALEGAL, MANAV ALVES 296.80 MO BIPOLAR NOS 06/17/2010 GIBSON [employer]ER[employer] LITIGATION PARALEGAL, MANAV ALVES 300.02 AN GEN ANXIETY 06/17/2010 PEÑALOZA DO, DIMPLE K 296.80 MO BIPOLAR NOS 06/17/2010 PEÑALOZA DO, DIMPLE K 300.02 AN GEN ANXIETY 06/17/2010 WENDI BLACK MD 296 .80 MO BIPOLAR NOS 06/17/2010 WENDI BLACK MD 300 .02 AN GEN ANXIETY 06/17/2010 WENDI BLACK MD N 296 .80 MO BIPOLAR NOS 06/17/2010 WENDI BLACK MD N 300 .02 AN GEN ANXIETY 06/17/2010 TIN HEREDIA PSYD L 296.80 MO BIPOLAR NOS 06/17/2010 TIN HEREDIA PSYD L 300.02 AN GEN ANXIETY 06/17/2010 WENDI BLACK MD N 296 .80 MO BIPOLAR NOS 06/17/2010 WENDI BLACK MD N 300 .02 AN GEN ANXIETY 06/17/2010 WENDI BLACK MD N 296 .80 MO BIPOLAR NOS 06/17/2010 WENDI BLACK MD N 300 .02 AN GEN ANXIETY 06/17/2010 CHRISTEL PANEL ASSEMBLER, CARLOS M 296.80 MO BIPOLAR NOS 06/17/2010 CHRISTEL PANEL ASSEMBLER, CARLOS M 300.02 AN GEN ANXIETY 06/17/2010 CHRISTEL PANEL ASSEMBLER, CARLOS M 296.80 MO BIPOLAR NOS 06/17/2010 CHRISTEL PANEL ASSEMBLER, CARLOS M 300.02 AN GEN ANXIETY 06/17/2010 CHRISTEL PANEL ASSEMBLER, CARLOS M 296.80 MO BIPOLAR NOS 06/17/2010 CHRISTEL PANEL ASSEMBLER, CARLOS M 300.02 AN GEN ANXIETY 06/17/2010 CHRISTEL PANEL ASSEMBLER, CARLOS M 296.80 MO BIPOLAR NOS 06/17/2010 CHRISTEL PANEL ASSEMBLER, CARLOS M 300.02 AN GEN ANXIETY 10/14/2010 [...] GIBSON APRN 296.89 MO BIPOLAR II 10/14/2010 RAMONMARGARETH HECK, MAU A 296.89 MO BIPOLAR II 10/14/2010 PAIGE HECK, MANAV ALVES 296.89 MO BIPOLAR II 10/14/2010 SOFIA RICE, WENDI N 296 .89 MO BIPOLAR II 10/14/2010 SOFIA RICE, WENDI N 296 .89 MO BIPOLAR II 10/14/2010 PEÑALOZA DIMPLE YEPEZ K 296.89 MO BIPOLAR II 10/14/2010 PAIGE HECK, MANAV ALVES 296.89 MO BIPOLAR II 10/14/2010 PEÑALOZA DIMPLE YEPEZ K 296.89 MO BIPOLAR II 10/14/2010 SOFIA RICE, WENDI N 296 .89 MO BIPOLAR II 10/14/2010 SOFIA RICE, WENDI N 296 .89 MO BIPOLAR II 10/14/2010 TIN HEREDIA PSYD 296.89 MO BIPOLAR II 10/14/2010 SOFIA RICE, WENDI N 296 .89 MO BIPOLAR II 10/14/2010 SOFIA RICE, WENDI N 296 .89 MO BIPOLAR II 10/14/2010 CHRISTEL PANEL ASSEMBLER, CARLOS M 296.89 MO BIPOLAR II 10/14/2010 CHRISTEL PANEL ASSEMBLER, CARLOS M 296.89 MO BIPOLAR II 10/14/2010 CHRISTEL PANEL ASSEMBLER, CARLOS M 296.89 MO BIPOLAR II 10/14/2010 CHRISTEL PANEL ASSEMBLER, CARLOS M 296.89 MO BIPOLAR II 03/22/2011 V72.31 COMPUTING MACHINE OPERATOR EXAM, ROUTINE 03/22/2011 V72.31 COMPUTING MACHINE OPERATOR EXAM, ROUTINE 03/22/2011 V72.31 COMPUTING MACHINE OPERATOR EXAM, ROUTINE 03/22/2011 PAIGE HECK MANAV ALVES V72.31 COMPUTING MACHINE OPERATOR EXAM, ROUTINE 03/22/2011 PAIGE HECK MANAV ALVES V72.31 COMPUTING MACHINE OPERATOR EXAM, ROUTINE 03/22/2011 V72.31 COMPUTING MACHINE OPERATOR EXAM, ROUTINE 03/22/2011 DIMPLE PEÑALOZA DO V72.31 COMPUTING MACHINE OPERATOR EXAM, ROUTINE 03/22/2011 V72.31 COMPUTING MACHINE OPERATOR EXAM, ROUTINE 03/22/2011 V72.31 COMPUTING MACHINE OPERATOR EXAM, ROUTINE 03/22/2011 V72.31 COMPUTING MACHINE OPERATOR EXAM, ROUTINE 03/22/2011 DIMPLE PEÑALOZA DO V72.31 COMPUTING MACHINE OPERATOR EXAM, ROUTINE 03/22/2011 TEOFILO FELICIANO MD V72.31 COMPUTING MACHINE OPERATOR EXAM, ROUTINE 03/22/2011 DIMPLE PEÑALOZA DO V72.31 COMPUTING MACHINE OPERATOR EXAM, ROUTINE 03/22/2011 PAIGE HECK MANAV LONG V72.31 COMPUTING MACHINE OPERATOR EXAM, ROUTINE 03/22/2011 MAU NAVARRO APRN V72.31 COMPUTING MACHINE OPERATOR EXAM, ROUTINE 03/22/2011 PAIGE HECK MANAV WHITEH V72.31 COMPUTING MACHINE OPERATOR EXAM, ROUTINE 03/22/2011 SOFIA RICE, WENDI Dupont V72 .31 COMPUTING MACHINE OPERATOR EXAM, ROUTINE 03/22/2011 SOFIA RICE, WENDI Dupont V72 .31 COMPUTING MACHINE OPERATOR EXAM, ROUTINE 03/22/2011 PEÑALOZA DIMPLE YEPEZ V72.31 COMPUTING MACHINE OPERATOR EXAM, ROUTINE 03/22/2011 PAIGE HECK MANAV LONG V72.31 COMPUTING MACHINE OPERATOR EXAM, ROUTINE 03/22/2011 PEÑALOZA DIMPLE YEPEZ V72.31 COMPUTING MACHINE OPERATOR EXAM, ROUTINE 03/22/2011 SOFIA RICE, WENDI Dupont V72 .31 COMPUTING MACHINE OPERATOR EXAM, ROUTINE 03/22/2011 SOFIA RICE, WENDI Dupont V72 .31 COMPUTING MACHINE OPERATOR EXAM, ROUTINE 03/22/2011 TIN HEREDIA PSYD V72.31 COMPUTING MACHINE OPERATOR EXAM, ROUTINE 03/22/2011 SOFIA RICE, WENDI N V72 .31 COMPUTING MACHINE OPERATOR EXAM, ROUTINE 03/22/2011 SOFIA RICE, WENDI N V72 .31 COMPUTING MACHINE OPERATOR EXAM, ROUTINE 03/22/2011 CARLOS AHUJA M V72.31 COMPUTING MACHINE OPERATOR EXAM, ROUTINE 03/22/2011 CARLOS AHUJA M V72.31 COMPUTING MACHINE OPERATOR EXAM, ROUTINE 03/22/2011 CHRISTEL PANEL ASSEMBLER, CARLOS M V72.31 COMPUTING MACHINE OPERATOR EXAM, ROUTINE 03/22/2011 CHRISTEL PANEL ASSEMBLER, CARLOS M V72.31 COMPUTING MACHINE OPERATOR EXAM, ROUTINE 05/26/2011 465.9 UPPE R RESPIRATORY INFECTION 05/26/2011 465.9 UPPE R RESPIRATORY INFECTION 05/26/2011 465.9 UPPE R RESPIRATORY INFECTION 05/26/2011 PAIGE HECK MANAV LONG 465.9 UPPER RESPIRATORY INFECTION 05/26/2011 PAIGE HECK MANAV LONG 465.9 UPPER RESPIRATORY INFECTION 05/26/2011 465.9 UPPE R RESPIRATORY INFECTION 05/26/2011 DIMPLE PEÑALOZA DO K 465.9 UPPER RESPIRATORY INFECTION 05/26/2011 465.9 UPPE R RESPIRATORY INFECTION 05/26/2011 465.9 UPPE R RESPIRATORY INFECTION 05/26/2011 465.9 UPPE R RESPIRATORY INFECTION 05/26/2011 PEÑALOZA DO, DIMPLE K 465.9 UPPER RESPIRATORY INFECTION 05/26/2011 TEOFILO FELICIANO MD M 465.9 UPPER RESPIRATORY INFECTION 05/26/2011 PEÑALOZA DO, DIMPLE K 465.9 UPPER RESPIRATORY INFECTION 05/26/2011 MANAV GIBSON APRN 465.9 UPPER RESPIRATORY INFECTION 05/26/2011 RAMON COMPLEX COMMERCIAL LITIGATION PARALEGAL, MAU A 46 5.9 UPPER RESPIRATORY INFECTION 05/26/2011 GIBSON [employer] LITIGATION PARALEGAL, MANAV ALVES 465.9 UPPER RESPIRATORY INFECTION 05/26/2011 WENDI BLACK MD N 465 .9 UPPER RESPIRATORY INFECTION 05/26/2011 WENDI BLACK MD N 465 .9 UPPER RESPIRATORY INFECTION 05/26/2011 PEÑALOZA , DIMPLE K 465.9 UPPER RESPIRATORY INFECTION 05/26/2011 GIBSON APRNMANAV 465.9 UPPER RESPIRATORY INFECTION 05/26/2011 PEÑALOZA AQUILES YEPEZA K 465.9 UPPER RESPIRATORY INFECTION 05/26/2011 WENDI BLACK MD N 465 .9 UPPER RESPIRATORY INFECTION 05/26/2011 WENDI BLACK MD N 465 .9 UPPER RESPIRATORY INFECTION 05/26/2011 TIN HEREDIA PSYD 465.9 UPPER RESPIRATORY INFECTION 05/26/2011 WENDI BLACK MD N 465 .9 UPPER RESPIRATORY INFECTION 05/26/2011 WENDI BLACK MD N 465 .9 UPPER RESPIRATORY INFECTION 05/26/2011 CARLOS AHUJA M 465.9 UPPER RESPIRATORY INFECTION 05/26/2011 CARLOS AHUJA M 465.9 UPPER RESPIRATORY INFECTION 05/26/2011 CARLOS AHUJA M 465.9 UPPER RESPIRATORY INFECTION 05/26/2011 CARLOS AHUJA M 465.9 UPPER RESPIRATORY INFECTION 07/14/2011 401.1 HYPE RTENSION, BENIGN ESSENTIAL 07/14/2011 783.5 POLY DIPSIA 07/14/2011 V18.0 FAMI LY HISTORY OF DIABETES MELLITUS 07/14/2011 401.1 HYPE RTENSION, BENIGN ESSENTIAL 07/14/2011 783.5 POLY DIPSIA 07/14/2011 V18.0 FAMI LY HISTORY OF DIABETES MELLITUS 07/14/2011 401.1 HYPE RTENSION, BENIGN ESSENTIAL 07/14/2011 783.5 POLY DIPSIA 07/14/2011 V18.0 FAMI LY HISTORY OF DIABETES MELLITUS 07/14/2011 MANAV GIBSON APRN 401.1 HYPERTENSION, BENIGN ESSENTIAL 07/14/2011 PAIGE HECK, MANAV ALVES 783.5 POLYDIPSIA 07/14/2011 MANAV IGBSON APRN V18.0 FAMILY HISTORY OF DIABETES MELLITUS 07/14/2011 PAIGE HECK, MANAV ALVES 401.1 HYPERTENSION, BENIGN ESSENTIAL 07/14/2011 PAIGE HECK, MANAV ALVES 783.5 POLYDIPSIA 07/14/2011 PAIGE HECK, MANAV ALVES V18.0 FAMILY HISTORY OF DIABETES MELLITUS 07/14/2011 401.1 HYPE RTENSION, BENIGN ESSENTIAL 07/14/2011 783.5 Poly dipsia 07/14/2011 V18.0 FAMI LY HISTORY OF DIABETES MELLITUS 07/14/2011 DIMPLE PEÑALOZA DO 401.1 HYPERTENSION, BENIGN ESSENTIAL 07/14/2011 DIMPLE PEÑALOZA DO 783.5 Polydipsia 07/14/2011 DIMPLE PEÑALOZA DO V18.0 FAMILY HISTORY OF DIABETES MELLITUS 07/14/2011 401.1 HYPE RTENSION, BENIGN ESSENTIAL 07/14/2011 783.5 Poly dipsia 07/14/2011 V18.0 FAMI LY HISTORY OF DIABETES MELLITUS 07/14/2011 401.1 HYPE RTENSION, BENIGN ESSENTIAL 07/14/2011 783.5 Poly dipsia 07/14/2011 V18.0 FAMI LY HISTORY OF DIABETES MELLITUS 07/14/2011 401.1 HYPE RTENSION, BENIGN ESSENTIAL 07/14/2011 783.5 Poly dipsia 07/14/2011 V18.0 FAMI LY HISTORY OF DIABETES MELLITUS 07/14/2011 DIMPLE PEÑALOZA DO 401.1 HYPERTENSION, BENIGN ESSENTIAL 07/14/2011 DIMPLE PEÑALOZA DO 783.5 POLYDIPSIA 07/14/2011 DIMPLE PEÑALOZA DO K V18.0 FAMILY HISTORY OF DIABETES MELLITUS 07/14/2011 BRADEN RICE, TEOFILO Deras 401.1 HYPERTENSION, BENIGN ESSENTIAL 07/14/2011 TEOFILO FELICIANO MD 783.5 Polydipsia 07/14/2011 TEOFILO FELICIANO MD V18.0 FAMILY HISTORY OF DIABETES MELLITUS 07/14/2011 AQUILES PEÑALOZA DOA K 401.1 HYPERTENSION, BENIGN ESSENTIAL 07/14/2011 PEÑALOZA DO DIMPLE K 783.5 Polydipsia 07/14/2011 PEÑALOZA AQUILES YEPEZA K V18.0 FAMILY HISTORY OF DIABETES MELLITUS 07/14/2011 PAIGE HECK MANAV LONG 401.1 HYPERTENSION, BENIGN ESSENTIAL 07/14/2011 PAIGE HECK MANAV WHITEH 783.5 Polydipsia 07/14/2011 GIBSON UMANG MANAV WHITEH V18.0 FAMILY HISTORY OF DIABETES MELLITUS 07/14/2011 RAMON APRN, MAU A 40 1.1 HYPERTENSION, BENIGN ESSENTIAL 07/14/2011 RAMON APRN, MAU A 78 3.5 Polydipsia 07/14/2011 RAMONCresencio HECK MAU A V1 8.0 FAMILY HISTORY OF DIABETES MELLITUS 07/14/2011 PAIGE HECK MANAV LONG 401.1 HYPERTENSION, BENIGN ESSENTIAL 07/14/2011 PAIGE HECK MANAV LONG 783.5 Polydipsia 07/14/2011 PAIGE HECK MANAV LONG V18.0 FAMILY HISTORY OF DIABETES MELLITUS 07/14/2011 WENDI BLACK MD 401 .1 HYPERTENSION, BENIGN ESSENTIAL 07/14/2011 WENDI BLACK MD 783 .5 Polydipsia 07/14/2011 WENDI BLACK MD V18 .0 FAMILY HISTORY OF DIABETES MELLITUS 07/14/2011 WENDI BLACK MD 401 .1 HYPERTENSION, BENIGN ESSENTIAL 07/14/2011 WENDI BLACK MD N 783 .5 Polydipsia 07/14/2011 WENDI BLACK MD V18 .0 FAMILY HISTORY OF DIABETES MELLITUS 07/14/2011 DIMPLE PEÑALOZA DO K 401.1 HYPERTENSION, BENIGN ESSENTIAL 07/14/2011 AQUILES PEÑALOZA DOA K 783.5 Polydipsia 07/14/2011 AQUILES PEÑALOZA DOA K V18.0 FAMILY HISTORY OF DIABETES MELLITUS 07/14/2011 PAIGE HECK MANAV LONG 401.1 HYPERTENSION, BENIGN ESSENTIAL 07/14/2011 PAIGE HECK MANAV LONG 783.5 Polydipsia 07/14/2011 PAIGE HECK MANAV ALVES V18.0 FAMILY HISTORY OF DIABETES MELLITUS 07/14/2011 JH YEPEZDIMPLE K 401.1 HYPERTENSION, BENIGN ESSENTIAL 07/14/2011 JH YEPEZ DIMPLE K 783.5 Polydipsia 07/14/2011 JH YEPEZ DIMPLE K V18.0 FAMILY HISTORY OF DIABETES MELLITUS 07/14/2011 WENDI BLACK MD 401 .1 HYPERTENSION, BENIGN ESSENTIAL 07/14/2011 WENDI BLACK MD 783 .5 Polydipsia 07/14/2011 WENDI BLACK MD V18 .0 FAMILY HISTORY OF DIABETES MELLITUS 07/14/2011 WENDI BLACK MD 401 .1 HYPERTENSION, BENIGN ESSENTIAL 07/14/2011 WENDI BLACK MD 783 .5 Polydipsia 07/14/2011 WENDI BLACK MD V18 .0 FAMILY HISTORY OF DIABETES MELLITUS 07/14/2011 TIN HEREDIA PSYD 401.1 HYPERTENSION, BENIGN ESSENTIAL 07/14/2011 TIN HEREDIA PSYD 783.5 Polydipsia 07/14/2011 TIN HEREDIA PSYD V18.0 FAMILY HISTORY OF DIABETES MELLITUS 07/14/2011 WENDI BLACK MD 401 .1 HYPERTENSION, BENIGN ESSENTIAL 07/14/2011 WENDI BLACK MD 783 .5 Polydipsia 07/14/2011 WENDI BLACK MD V18 .0 FAMILY HISTORY OF DIABETES MELLITUS 07/14/2011 WENDI BLACK MD 401 .1 HYPERTENSION, BENIGN ESSENTIAL 07/14/2011 WENDI BLACK MD 783 .5 Polydipsia 07/14/2011 WENDI BLACK MD V18 .0 FAMILY HISTORY OF DIABETES MELLITUS 07/14/2011 CARLOS AHUJA 401.1 HYPERTENSION, BENIGN ESSENTIAL 07/14/2011 CARLOS AHUJA M 783.5 Polydipsia 07/14/2011 CARLOS AHUJA M V18.0 FAMILY HISTORY OF DIABETES MELLITUS 07/14/2011 CARLOS AHUJA M 401.1 HYPERTENSION, BENIGN ESSENTIAL 07/14/2011 CARLOS AHUJA M 783.5 Polydipsia 07/14/2011 CARLOS AHUJA M V18.0 FAMILY HISTORY OF DIABETES MELLITUS 07/14/2011 CARLOS AHUJA 401.1 HYPERTENSION, BENIGN ESSENTIAL 07/14/2011 CARLOS AHUJA 783.5 Polydipsia 07/14/2011 CARLOS AHUJA V18.0 FAMILY HISTORY OF DIABETES MELLITUS 07/14/2011 CARLOS AHUJA 401.1 HYPERTENSION, BENIGN ESSENTIAL 07/14/2011 CARLOS AHUJA 783.5 Polydipsia 07/14/2011 CARLOS AHUJA V18.0 FAMILY HISTORY OF DIABETES MELLITUS 07/16/2011 272.4 HYPE RLIPIDEMIA 07/16/2011 272.4 HYPE RLIPIDEMIA 07/16/2011 272.4 HYPE RLIPIDEMIA 07/16/2011 PAIGE HECK MANAV LONG 272.4 HYPERLIPIDEMIA 07/16/2011 MANAV GIBSON APRN 272.4 HYPERLIPIDEMIA 07/16/2011 272.4 HYPE RLIPIDEMIA 07/16/2011 DIMPLE PEÑALOZA DO K 272.4 HYPERLIPIDEMIA 07/16/2011 272.4 HYPE RLIPIDEMIA 07/16/2011 272.4 HYPE RLIPIDEMIA 07/16/2011 272.4 HYPE RLIPIDEMIA 07/16/2011 AQUILES PEÑALOZA DOA K 272.4 HYPERLIPIDEMIA 07/16/2011 TEOFILO FELICIANO MD 272.4 HYPERLIPIDEMIA 07/16/2011 DIMPLE PEÑALOZA DO K 272.4 HYPERLIPIDEMIA 07/16/2011 MANAV GIBSON APRN 272.4 HYPERLIPIDEMIA 07/16/2011 RAMON HECK, MAU A 27 2.4 HYPERLIPIDEMIA 07/16/2011 PAIGE HECK MANAV LONG 272.4 HYPERLIPIDEMIA 07/16/2011 WENDI BLACK MD 272 .4 HYPERLIPIDEMIA 07/16/2011 WENDI BLACK MD 272 .4 HYPERLIPIDEMIA 07/16/2011 PEÑALOZA DIMPLE YEPEZ K 272.4 HYPERLIPIDEMIA 07/16/2011 MANAV GIBSON APRN 272.4 HYPERLIPIDEMIA 07/16/2011 PEÑALOZA DIMPLE YEPEZ K 272.4 HYPERLIPIDEMIA 07/16/2011 WENDI BLACK MD N 272 .4 HYPERLIPIDEMIA 07/16/2011 WENDI BLACK MD N 272 .4 HYPERLIPIDEMIA 07/16/2011 TIN HEREDIA PSYD 272.4 HYPERLIPIDEMIA 07/16/2011 WENDI BLACK MD 272 .4 HYPERLIPIDEMIA 07/16/2011 WENDI BLACK MD 272 .4 HYPERLIPIDEMIA 07/16/2011 CHRISTEL SALAZAR, CARLOS M 272.4 HYPERLIPIDEMIA 07/16/2011 CHRISTEL SALAZAR, CARLOS M 272.4 HYPERLIPIDEMIA 07/16/2011 CHRISTEL SALAZAR, CARLOS M 272.4 HYPERLIPIDEMIA 07/16/2011 CHRISTEL SALAZAR, CARLOS M 272.4 HYPERLIPIDEMIA 11/15/2011 054.10 GEN ITAL HERPES UNSPECIFIED 11/15/2011 054.10 GEN ITAL HERPES UNSPECIFIED 11/15/2011 054.10 GEN ITAL HERPES UNSPECIFIED 11/15/2011 MANAV GIBSON APRN 054.10 GENITAL HERPES UNSPECIFIED 11/15/2011 MANAV GIBSON APRN 054.10 GENITAL HERPES UNSPECIFIED 11/15/2011 054.10 GEN ITAL HERPES UNSPECIFIED 11/15/2011 DIMPLE PEÑALOZA DO 054.10 GENITAL HERPES UNSPECIFIED 11/15/2011 054.10 GEN ITAL HERPES UNSPECIFIED 11/15/2011 054.10 GEN ITAL HERPES UNSPECIFIED 11/15/2011 054.10 GEN ITAL HERPES UNSPECIFIED 11/15/2011 DIMPLE PEÑALOZA DO 054.10 GENITAL HERPES UNSPECIFIED 11/15/2011 BRADEN RICE, TEOFILO Deras 054.10 GENITAL HERPES UNSPECIFIED 11/15/2011 DIMPLE PEÑALOZA DO K 054.10 GENITAL HERPES UNSPECIFIED 11/15/2011 MANAV GIBSON APRN 054.10 GENITAL HERPES UNSPECIFIED 11/15/2011 MAU NAVARRO APRN 054.10 GENITAL HERPES UNSPECIFIED 11/15/2011 MANAV GIBSON APRN 054.10 GENITAL HERPES UNSPECIFIED 11/15/2011 WENDI BLACK MD N 054 .10 GENITAL HERPES UNSPECIFIED 11/15/2011 WENDI BLACK MD 054 .10 GENITAL HERPES UNSPECIFIED 11/15/2011 DIMPLE PEÑALOZA DO 054.10 GENITAL HERPES UNSPECIFIED 11/15/2011 MANAV GIBSON APRN 054.10 GENITAL HERPES UNSPECIFIED 11/15/2011 DIMPLE PEÑALOZA DO 054.10 GENITAL HERPES UNSPECIFIED 11/15/2011 WENDI BLACK MD 054 .10 GENITAL HERPES UNSPECIFIED 11/15/2011 SOFIA RICE, WENDI N 054 .10 GENITAL HERPES UNSPECIFIED 11/15/2011 TIN HEREDIA PSYD L 054.10 GENITAL HERPES UNSPECIFIED 11/15/2011 SOFIA RICE, WENDI N 054 .10 GENITAL HERPES UNSPECIFIED 11/15/2011 SOFIA RICE, WENDI N 054 .10 GENITAL HERPES UNSPECIFIED 11/15/2011 CARLOS AHUJA M 054.10 GENITAL HERPES UNSPECIFIED 11/15/2011 CARLOS AHUJA M 054.10 GENITAL HERPES UNSPECIFIED 11/15/2011 CARLOS AHUJA M 054.10 GENITAL HERPES UNSPECIFIED 11/15/2011 CARLOS AHUJA M 054.10 GENITAL HERPES UNSPECIFIED 03/27/2012 786.05 GINA RTNESS OF BREATH 03/27/[address] PAIN 03/27/2012 787.02 BRENDAN SEA ALONE 03/27/2012 786.05 GINA RTNESS OF BREATH 03/27/[address] PAIN 03/27/2012 787.02 BRENDAN SEA ALONE 03/27/2012 786.05 GINA RTNESS OF BREATH 03/27/[address] PAIN 03/27/2012 787.02 BRENDAN SEA ALONE 03/27/2012 PAIGE HECK MANAV ALVES 786.05 SHORTNESS OF BREATH 03/27/2012 PAIGE HECK MANAV ALVES 786.50 CHEST PAIN 03/27/2012 PAIGE HECK MANAV ALVES 787.02 NAUSEA ALONE 03/27/2012 PAIGE HECK MANAV ALVES 786.05 SHORTNESS OF BREATH 03/27/2012 PAIGE HECK MANAV ALVES 786.50 CHEST PAIN 03/27/2012 PAIGE HECK MANAV ALVES 787.02 NAUSEA ALONE 03/27/2012 786.05 Gina rtness Of Breath 03/27/[address] Pain 03/27/2012 787.02 Brendan sea Alone 03/27/2012 PEÑALOZA DO DIMPLE K 786.05 Shortness Of Breath 03/27/2012 PEÑALOZA DO, DIMPLE K 786.50 Chest Pain 03/27/2012 PEÑALOZA DO, DIMPLE K 787.02 Nausea Alone 03/27/2012 786.05 Gina rtness Of Breath 03/27/[address] Pain 03/27/2012 787.02 Brendan sea Alone 03/27/2012 786.05 Gina rtness Of Breath 03/27/[address] Pain 03/27/2012 787.02 Brendan sea Alone 03/27/2012 786.05 Gina rtness Of Breath 03/27/[address] Pain 03/27/2012 787.02 Brendan sea Alone 03/27/2012 PEÑALOZA DO, DIMPLE K 786.05 [...] DIMPLE K 787.02 Nausea Alone 03/27/2012 GIBSON UMANG MANAV ALVES 786.05 Shortness Of Breath 03/27/2012 GIBSON UMANG MANAV ALVES 786.50 Chest Pain 03/27/2012 GIBSON UMANG MANAV ALVES 787.02 Nausea Alone 03/27/2012 RAMON [employer] L[employer]IGATION PARALEGAL, MAU A 786.05 Shortness Of Breath 03/27/2012 RAMON UMANG, MAU A 786.50 Chest Pain 03/27/2012 RAMON [employer] LITIGATION PARALEGAL, MAU A 787.02 Nausea Alone 03/27/2012 GIBSON COMPLEX [employer]ERCIAL LITIGATION PARALEGAL MANAV ALVES 786.05 Shortness Of Breath 03/27/2012 GIBSON UMANG MANAV ALVES 786.50 Chest Pain 03/27/2012 GIBSON UMANG MANAV ALVES 787.02 Nausea Alone 03/27/2012 WENDI BLACK MD 786 .05 Shortness Of Breath 03/27/2012 WENDI BLACK MD 786 .50 Chest Pain 03/27/2012 WENDI BLACK MD 787 .02 Nausea Alone 03/27/2012 WENDI BLACK MD 786 .05 Shortness Of Breath 03/27/2012 WENDI BLACK MD N 786 .50 Chest Pain 03/27/2012 WENDI BLACK MD N 787 .02 Nausea Alone 03/27/2012 PEÑALOZA DO, DIMPLE K 786.05 Shortness Of Breath 03/27/2012 PEÑALOZA DO, DIMPLE K 786.50 Chest Pain 03/27/2012 PEÑALOZA DO, DIMPLE K 787.02 Nausea Alone 03/27/2012 GIBSON [employer] LITIGATION PARALEGAL, MANAV ALVES 786.05 Shortness Of Breath 03/27/2012 GIBSON [employer] L[employer]ATION PARALEGAL, MANAV ALVES 786.50 Chest Pain 03/27/2012 GIBSON [employer] PARALEGAL, MANAV ALVES 787.02 Nausea Alone 03/27/2012 PEÑALOZA DO, DIMPLE K 786.05 Shortness Of Breath 03/27/2012 PEÑALOZA DO, DIMPLE K 786.50 Chest Pain 03/27/2012 PEÑALOZA DO, DIMPLE K 787.02 Nausea Alone 03/27/2012 WENDI BLACK MD N 786 .05 Shortness Of Breath 03/27/2012 WENDI BLACK MD N 786 .50 Chest Pain 03/27/2012 WENDI BLACK MD N 787 .02 Nausea Alone 03/27/2012 WENDI BLACK MD N 786 .05 Shortness Of Breath 03/27/2012 WENDI BLACK MD N 786 .50 Chest Pain 03/27/2012 WENDI BLACK MD N 787 .02 Nausea Alone 03/27/2012 TIN HEREDIA PSYD L 786.05 Shortness Of Breath 03/27/2012 TIN HEREDIA PSYD L 786.50 Chest Pain 03/27/2012 TIN HEREDIA PSYD L 787.02 Nausea Alone 03/27/2012 WENDI BLACK MD N 786 .05 Shortness Of Breath 03/27/2012 WENDI BLACK MD N 786 .50 Chest Pain 03/27/2012 WENDI BLACK MD N 787 .02 Nausea Alone 03/27/2012 WENDI BLACK MD N 786 .05 Shortness Of Breath 03/27/2012 WENDI BLACK MD N 786 .50 Chest Pain 03/27/2012 WENDI BLACK MD N 787 .02 Nausea Alone 03/27/2012 CHRISTEL PANEL ASSEMBLERCARLOS M 786.05 Shortness Of Breath 03/27/2012 CHRISTEL PANEL ASSEMBLERCARLOS M 786.50 Chest Pain 03/27/2012 CHRISTEL PANEL ASSEMBLERCARLOS M 787.02 Nausea Alone 03/27/2012 CHRISTEL PANEL ASSEMBLERCARLOS M 786.05 Shortness Of Breath 03/27/2012 CHRISTEL PANEL ASSEMBLERCARLOS M 786.50 Chest Pain 03/27/2012 CHRISTEL PANEL ASSEMBLERCARLOS M 787.02 Nausea Alone 03/27/2012 CHRISTEL PANEL ASSEMBLERCARLOS M 786.05 Shortness Of Breath 03/27/2012 CHRISTEL PANEL ASSEMBLERCARLOS M 786.50 Chest Pain 03/27/2012 CHRISTEL PANEL ASSEMBLERCARLOS M 787.02 Nausea Alone 03/27/2012 CHRISTEL PANEL ASSEMBLERCARLOS M 786.05 Shortness Of Breath 03/27/2012 CHRISTEL CARLOS SALAZAR M 786.50 Chest Pain 03/27/2012 CARLOS AHUJA M 787.02 Nausea Alone 06/21/2012 MANAV GIBSON APRN 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 06/21/2012 MANAV GIBSON APRN 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 06/21/2012 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 06/21/2012 DIMPLE PEÑALOZA DO 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32 MO DEPRESSIVE RECURRENT MODERATE 06/21/2012 DIMPLE PEÑALOZA DO 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 06/21/2012 MANAV GIBSON APRN 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 06/21/2012 DIMPLE PEÑALOZA DO 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 06/21/2012 WENDI BLACK MD 296 .32 MO DEPRESSIVE RECURRENT MODERATE 06/21/2012 WENDI BLACK MD 296 .32 MO DEPRESSIVE RECURRENT MODERATE 06/21/2012 TIN HEREDIA PSYD 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 06/21/2012 WENDI BLACK MD 296 .32 MO DEPRESSIVE RECURRENT MODERATE 06/21/2012 WENDI BLACK MD 296 .32 MO DEPRESSIVE RECURRENT MODERATE 06/21/2012 CHRISTEL PANEL ASSEMBLER, CARLOS M 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 06/21/2012 CHRISTEL PANEL ASSEMBLER, CARLOS M 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 06/21/2012 CHRISTEL PANEL ASSEMBLER, CARLOS M 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 06/21/2012 CHRISTEL PANEL ASSEMBLER, CARLOS M 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 08/24/2012 214.1 LIPO MA OF OTHER SKIN AND SUBCUTANEOUS TISSUE 08/24/2012 DIMPLE PEÑALOZA DO 214.1 LIPOMA OF OTHER SKIN AND SUBCUTANEOUS TISSUE 08/24/2012 214.1 LIPO MA OF OTHER SKIN AND SUBCUTANEOUS TISSUE 08/24/2012 214.1 LIPO MA OF OTHER SKIN AND SUBCUTANEOUS TISSUE 08/24/2012 214.1 LIPO MA OF OTHER SKIN AND SUBCUTANEOUS TISSUE 08/24/2012 TEOFILO FELICIANO MD M 214.1 LIPOMA OF OTHER SKIN AND SUBCUTANEOUS TISSUE 08/24/2012 DIMPLE PEÑALOZA DO 214.1 LIPOMA OF OTHER SKIN AND SUBCUTANEOUS TISSUE 08/24/2012 MANAV GIBSON APRN 214.1 LIPOMA OF OTHER SKIN AND SUBCUTANEOUS TISSUE 08/24/2012 MAU NAVARRO APRN A 21 4.1 LIPOMA OF OTHER SKIN AND SUBCUTANEOUS TISSUE 08/24/2012 MANAV GIBSON APRN 214.1 LIPOMA OF OTHER SKIN AND SUBCUTANEOUS TISSUE 08/24/2012 WENDI BLACK MD 214 .1 LIPOMA OF OTHER SKIN AND SUBCUTANEOUS TISSUE 08/24/2012 WENDI BLACK MD 214 .1 LIPOMA OF OTHER SKIN AND SUBCUTANEOUS TISSUE 08/24/2012 DIMPLE PEÑALOZA DO 214.1 LIPOMA OF OTHER SKIN AND SUBCUTANEOUS TISSUE 08/24/2012 MANAV GIBSON APRN 214.1 LIPOMA OF OTHER SKIN AND SUBCUTANEOUS TISSUE 08/24/2012 DIMPLE PEÑALOZA DO 214.1 LIPOMA OF OTHER SKIN AND SUBCUTANEOUS TISSUE 08/24/2012 WENDI BLACK MD 214 .1 LIPOMA OF OTHER SKIN AND SUBCUTANEOUS TISSUE 08/24/2012 WENDI BLACK MD 214 .1 LIPOMA OF OTHER SKIN AND SUBCUTANEOUS TISSUE 08/24/2012 TIN HEREDIA PSYD 214.1 LIPOMA OF OTHER SKIN AND SUBCUTANEOUS TISSUE 08/24/2012 WENDI BLACK MD 214 .1 LIPOMA OF OTHER SKIN AND SUBCUTANEOUS TISSUE 08/24/2012 WENDI BLACK MD 214 .1 LIPOMA OF OTHER SKIN AND SUBCUTANEOUS TISSUE 08/24/2012 CARLOS AHUJA 214.1 LIPOMA OF OTHER SKIN AND SUBCUTANEOUS TISSUE 08/24/2012 CARLOS AHUJA M 214.1 LIPOMA OF OTHER SKIN AND SUBCUTANEOUS TISSUE 08/24/2012 CARLOS AHUJA M 214.1 LIPOMA OF OTHER SKIN AND SUBCUTANEOUS TISSUE 08/24/2012 CARLOS AHUJA 214.1 LIPOMA OF OTHER SKIN AND SUBCUTANEOUS TISSUE 09/04/2012 DIMPLE PEÑALOZA DO 466.0 BRONCHITIS, ACUTE 09/04/2012 466.0 BRON CHITIS, ACUTE 09/04/2012 466.0 BRON CHITIS, ACUTE 09/04/2012 466.0 BRON CHITIS, ACUTE 09/04/2012 TEOFILO FELICIANO MD 466.0 BRONCHITIS, ACUTE 09/04/2012 DIMPLE PEÑALOZA DO K 466.0 BRONCHITIS, ACUTE 09/04/2012 MANAV GIBSON APRN 466.0 BRONCHITIS, ACUTE 09/04/2012 MAU NAVARRO APRN A 46 6.0 BRONCHITIS, ACUTE 09/04/2012 MANAV GIBSON APRN 466.0 BRONCHITIS, ACUTE 09/04/2012 WENDI BLACK MD 466 .0 BRONCHITIS, ACUTE 09/04/2012 WENDI BLACK MD 466 .0 BRONCHITIS, ACUTE 09/04/2012 DIMPLE PEÑALOZA DO 466.0 BRONCHITIS, ACUTE 09/04/2012 MANAV GIBSON APRN 466.0 BRONCHITIS, ACUTE 09/04/2012 DIMPLE PEÑALOZA DO 466.0 BRONCHITIS, ACUTE 09/04/2012 SOFIA MD, WENDI N 466 .0 BRONCHITIS, ACUTE 09/04/2012 SOFIA RICE, WENDI N 466 .0 BRONCHITIS, ACUTE 09/04/2012 TIN HEREDIA PSYD 466.0 BRONCHITIS, ACUTE 09/04/2012 SOFIA RICE, WENDI N 466 .0 BRONCHITIS, ACUTE 09/04/2012 SOFIA RICE, WENDI N 466 .0 BRONCHITIS, ACUTE 09/04/2012 CHRISTEL PANEL ASSEMBLER, CARLOS M 466.0 BRONCHITIS, ACUTE 09/04/2012 CHRISTEL PANEL ASSEMBLER, CARLOS M 466.0 BRONCHITIS, ACUTE 09/04/2012 CHRISTEL PANEL ASSEMBLERCARLOS M 466.0 BRONCHITIS, ACUTE 09/04/2012 CARLOS AHUJA M 466.0 BRONCHITIS, ACUTE 10/30/2012 782.3 EDEMA 10/30/2012 782.3 EDEMA 10/30/2012 TEOFILO FELICIANO MD M 782.3 EDEMA 10/30/2012 PEÑALOZA DIMPLE YEPEZ K 782.3 EDEMA 10/30/2012 PAIGE HECK [facility] 782.3 EDEMA 10/30/2012 MAU NAVARRO APRN A 78 2.3 EDEMA 10/30/2012 GIBSONERIN HECK MANAV LONG 782.3 EDEMA 10/30/2012 WENDI BLACK MD N 782 .3 EDEMA 10/30/2012 WENDI BLACK MD N 782 .3 EDEMA 10/30/2012 PEÑALOZA DIMPLE YEPEZ K 782.3 EDEMA 10/30/2012 PAIGE HECK MANAV LONG 782.3 EDEMA 10/30/2012 PEÑALOZA DIMPLE YEPEZ K 782.3 EDEMA 10/30/2012 WENDI BLACK MD N 782 .3 EDEMA 10/30/2012 WENDI BLACK MD N 782 .3 EDEMA 10/30/2012 TIN HEREDIA PSYD 782.3 EDEMA 10/30/2012 WENDI BLACK MD N 782 .3 EDEMA 10/30/2012 WENDI BLACK MD N 782 .3 EDEMA 10/30/2012 CARLOS AHUJA M 782.3 EDEMA 10/30/2012 CARLOS AHUJA M 782.3 EDEMA 10/30/2012 CHRISTEL PANEL ASSEMBLERCARLOS M 782.3 EDEMA 10/30/2012 CARLOS AHUJA 782.3 EDEMA 11/07/2012 008.8 LOKESH ROENTERITIS, VIRAL 11/07/2012 TEOFILO FELICIANO MD 008.8 GASTROENTERITIS, VIRAL 11/07/2012 DIMPLE PEÑALOZA DO 008.8 GASTROENTERITIS, VIRAL 11/07/2012 PAIGE HECK MANAV LONG 008.8 GASTROENTERITIS, VIRAL 11/07/2012 MAU NAVARRO APRN A 00 8.8 GASTROENTERITIS, VIRAL 11/07/2012 PAIGE HECK MANAV LONG 008.8 GASTROENTERITIS, VIRAL 11/07/2012 WENDI BLACK MD 008 .8 GASTROENTERITIS, VIRAL 11/07/2012 WENDI BLACK MD 008 .8 GASTROENTERITIS, VIRAL 11/07/2012 DIMPLE PEÑALOZA DO 008.8 GASTROENTERITIS, VIRAL 11/07/2012 PAIGE HECK MANAV LONG 008.8 GASTROENTERITIS, VIRAL 11/07/2012 DIMPLE PEÑALOZA DO 008.8 GASTROENTERITIS, VIRAL 11/07/2012 WENDI BLACK MD N 008 .8 GASTROENTERITIS, VIRAL 11/07/2012 WENDI BLACK MD N 008 .8 GASTROENTERITIS, VIRAL 11/07/2012 TIN HEREDIA PSYD 008.8 GASTROENTERITIS, VIRAL 11/07/2012 WENDI BLACK MD N 008 .8 GASTROENTERITIS, VIRAL 11/07/2012 WENDI BLACK MD N 008 .8 GASTROENTERITIS, VIRAL 11/07/2012 CARLOS AHUJA 008.8 GASTROENTERITIS, VIRAL 11/07/2012 CARLOS AHUJA 008.8 GASTROENTERITIS, VIRAL 11/07/2012 CARLOS AHUJA 008.8 GASTROENTERITIS, VIRAL 11/07/2012 CARLOS AHUJA 008.8 GASTROENTERITIS, VIRAL 03/08/2013 TEOFILO FELICIANO MD 728.87 MUSCLE WEAKNESS (GENERALIZED) 03/08/2013 DIMPLE PEÑALOZA DO 728.87 MUSCLE WEAKNESS (GENERALIZED) 03/08/2013 MANAV GIBSON APRN 728.87 MUSCLE WEAKNESS (GENERALIZED) 03/08/2013 MAU NAVARRO APRN 728.87 MUSCLE WEAKNESS (GENERALIZED) 03/08/2013 MANAV GIBSON APRN 728.87 MUSCLE WEAKNESS (GENERALIZED) 03/08/2013 WENDI BLACK MD N 728 .87 MUSCLE WEAKNESS (GENERALIZED) 03/08/2013 WENDI BLACK MD N 728 .87 MUSCLE WEAKNESS (GENERALIZED) 03/08/2013 DIMPLE PEÑALOZA DO K 728.87 MUSCLE WEAKNESS (GENERALIZED) 03/08/2013 APIGE HECK MANAV LONG 728.87 MUSCLE WEAKNESS (GENERALIZED) 03/08/2013 DIMPLE PEÑALOZA DO K 728.87 MUSCLE WEAKNESS (GENERALIZED) 03/08/2013 WENDI BLACK MD N 728 .87 MUSCLE WEAKNESS (GENERALIZED) 03/08/2013 WENDI BLACK MD 728 .87 MUSCLE WEAKNESS (GENERALIZED) 03/08/2013 TIN HEREDIA PSYD 728.87 MUSCLE WEAKNESS (GENERALIZED) 03/08/2013 WENDI BLACK MD N 728 .87 MUSCLE WEAKNESS (GENERALIZED) 03/08/2013 WENDI BLACK MD N 728 .87 MUSCLE WEAKNESS (GENERALIZED) 03/08/2013 CARLOS AHUJA M 728.87 MUSCLE WEAKNESS (GENERALIZED) 03/08/2013 CARLOS AHUJA M 728.87 MUSCLE WEAKNESS (GENERALIZED) 03/08/2013 CARLOS AHUJA M 728.87 MUSCLE WEAKNESS (GENERALIZED) 03/08/2013 CARLOS AHUJA M 728.87 MUSCLE WEAKNESS (GENERALIZED) 04/26/2013 DIMPLE PEÑALOZA DO K 599.0 URINARY TRACT INFECTION 04/26/2013 PAIGE HECK MANAV LONG 599.0 URINARY TRACT INFECTION 04/26/2013 MAU NAVARRO APRN 59 9.0 URINARY TRACT INFECTION 04/26/2013 PAIGE HECK MANAV LONG 599.0 URINARY TRACT INFECTION 04/26/2013 WENDI BLACK MD N 599 .0 URINARY TRACT INFECTION 04/26/2013 WENDI BLACK MD 599 .0 URINARY TRACT INFECTION 04/26/2013 DIMPLE PEÑALOZA DO K 599.0 URINARY TRACT INFECTION 04/26/2013 PAIGE HECK MANAV LONG 599.0 URINARY TRACT INFECTION 04/26/2013 DIMPLE PEÑALOZA DO K 599.0 URINARY TRACT INFECTION 04/26/2013 WENDI BLACK MD N 599 .0 URINARY TRACT INFECTION 04/26/2013 SOFIA RICE, WENDI N 599 .0 URINARY TRACT INFECTION 04/26/2013 TIN HEREDIA PSYD 599.0 URINARY TRACT INFECTION 04/26/2013 SOFIA RICE, WENDI N 599 .0 URINARY TRACT INFECTION 04/26/2013 WENDI BLACK MD N 599 .0 URINARY TRACT INFECTION 04/26/2013 CHRISTEL PANEL ASSEMBLER, CARLOS M 599.0 URINARY TRACT INFECTION 04/26/2013 CHRISTEL PANEL ASSEMBLER, CARLOS M 599.0 URINARY TRACT INFECTION 04/26/2013 CHRISTEL PANEL ASSEMBLER, CARLOS M 599.0 URINARY TRACT INFECTION 04/26/2013 CHRISTEL PANEL ASSEMBLER, CARLOS M 599.0 URINARY TRACT INFECTION 09/27/2013 MAU NAVARRO APRN 388.70 OTALGIA UNSPECIFIED 09/27/2013 MAU NAVARRO APRN 78 6.2 COUGH 09/27/2013 MANAV GIBSON APRN 388.70 OTALGIA UNSPECIFIED 09/27/2013 MANAV GIBSON APRN 786.2 COUGH 09/27/2013 WENDI BLACK MD 388 .70 OTALGIA UNSPECIFIED 09/27/2013 WENDI BLACK MD N 786 .2 COUGH 09/27/2013 WENDI BLACK MD 388 .70 OTALGIA UNSPECIFIED 09/27/2013 WENDI BLACK MD 786 .2 COUGH 09/27/2013 PEÑALOZA DO, DIMPLE K 388.70 OTALGIA UNSPECIFIED 09/27/2013 PEÑALOZA DO, DIMPLE K 786.2 COUGH 09/27/2013 MANAV GIBSON APRN 388.70 OTALGIA UNSPECIFIED 09/27/2013 MANAV GIBSON APRN 786.2 COUGH 09/27/2013 PEÑALOZA DO, DIMPLE K 388.70 OTALGIA UNSPECIFIED 09/27/2013 PEÑALOZA DO, DIMPLE K 786.2 COUGH 09/27/2013 WEDNI BLACK MD 388 .70 OTALGIA UNSPECIFIED 09/27/2013 WENDI BLACK MD N 786 .2 COUGH 09/27/2013 WENDI BLACK MD 388 .70 OTALGIA UNSPECIFIED 09/27/2013 WENDI BLACK MD N 786 .2 COUGH 09/27/2013 TIN HEREDIA PSYD L 388.70 OTALGIA UNSPECIFIED 09/27/2013 TIN HEREDIA PSYD L 786.2 COUGH 09/27/2013 SOFIA RICE, WENDI N 388 .70 OTALGIA UNSPECIFIED 09/27/2013 SOFIA RICE, WENDI N 786 .2 COUGH 09/27/2013 SOFIA RICE, WENDI N 388 .70 OTALGIA UNSPECIFIED 09/27/2013 SOFIA RICE, WENDI N 786 .2 COUGH 09/27/2013 CHRISTEL PANEL ASSEMBLER, CARLOS M 388.70 OTALGIA UNSPECIFIED 09/27/2013 CHRISTEL PANEL ASSEMBLER, CARLOS M 786.2 COUGH 09/27/2013 CHRISTEL PANEL ASSEMBLER, CARLOS M 388.70 OTALGIA UNSPECIFIED 09/27/2013 CHRISTEL PANEL ASSEMBLER, CARLOS M 786.2 COUGH 09/27/2013 CHRISTEL PANEL ASSEMBLER, CARLOS M 388.70 OTALGIA UNSPECIFIED 09/27/2013 CHRISTEL PANEL ASSEMBLER, CARLOS M 786.2 COUGH 09/27/2013 CHRISTEL PANEL ASSEMBLER, CARLOS M 388.70 OTALGIA UNSPECIFIED 09/27/2013 CHRISTEL PANEL ASSEMBLER, CARLOS M 786.2 COUGH 10/02/2013 MAU NAVARRO APRN A V65.42 COUNSELING - SMOKING CESSATION 10/02/2013 MAU NAVARRO APRN A V7 4.5 STD SCREEN 10/02/2013 MAU NAVARRO APRN A V76.10 BREAST CANCER SCREENING 10/02/2013 MANAV GIBSON APRN V65.42 COUNSELING - SMOKING CESSATION 10/02/2013 MANAV GIBSON APRN V74.5 STD SCREEN 10/02/2013 MANAV GIBSON APRN V76.10 BREAST CANCER SCREENING 10/02/2013 WENDI BLACK MD V65 .42 COUNSELING - SMOKING CESSATION 10/02/2013 WENDI BLACK MD V74 .5 STD SCREEN 10/02/2013 WENDI BLACK MD V76 .10 BREAST CANCER SCREENING 10/02/2013 WENDI BLACK MD V65 .42 COUNSELING - SMOKING CESSATION 10/02/2013 WENDI BLACK MD V74 .5 STD SCREEN 10/02/2013 WENDI BLACK MD V76 .10 BREAST CANCER SCREENING 10/02/2013 JH YEPEZ DIMPLE K V65.42 COUNSELING - SMOKING CESSATION 10/02/2013 JH YEPEZ, DIMPLE K V74.5 STD SCREEN 10/02/2013 JH YEPEZ, DIMPLE K V76.10 BREAST CANCER SCREENING 10/02/2013 PAIGE FARRELLCresencio MANAV ALVES V65.42 COUNSELING - SMOKING CESSATION 10/02/2013 PAIGE FARRELLCresencio MANAV ALVES V74.5 STD SCREEN 10/02/2013 PAIGE FARRELLCresencio MANAV ALVES V76.10 BREAST CANCER SCREENING 10/02/2013 JH YEPEZ DIMPLE K V65.42 COUNSELING - SMOKING CESSATION 10/02/2013 JH YEPEZ, DIMPLE K V74.5 STD SCREEN 10/02/2013 JH YEPEZ DIMPLE K V76.10 BREAST CANCER SCREENING 10/02/2013 WENDI BLACK MD V65 .42 COUNSELING - SMOKING CESSATION 10/02/2013 WENDI BLACK MD V74 .5 STD SCREEN 10/02/2013 WENDI BLACK MD V76 .10 BREAST CANCER SCREENING 10/02/2013 WENDI BLACK MD V65 .42 COUNSELING - SMOKING CESSATION 10/02/2013 WENDI BLACK MD V74 .5 STD SCREEN 10/02/2013 WENDI BLACK MD V76 .10 BREAST CANCER SCREENING 10/02/2013 TIN HEREDIA PSYD V65.42 COUNSELING - SMOKING CESSATION 10/02/2013 TIN HEREDIA PSYD V74.5 STD SCREEN 10/02/2013 TIN HEREDIA PSYD V76.10 BREAST CANCER SCREENING 10/02/2013 WENDI BLACK MD V65 .42 COUNSELING - SMOKING CESSATION 10/02/2013 WENDI BLACK MD V74 .5 STD SCREEN 10/02/2013 WENDI BLACK MD V76 .10 BREAST CANCER SCREENING 10/02/2013 WENDI BLACK MD V65 .42 COUNSELING - SMOKING CESSATION 10/02/2013 WENDI BLACK MD V74 .5 STD SCREEN 10/02/2013 WENDI BLACK MD V76 .10 BREAST CANCER SCREENING 10/02/2013 CARLOS AHUJA V65.42 COUNSELING - SMOKING CESSATION 10/02/2013 CHRISTEL PANEL ASSEMBLERCARLOS M V74.5 STD SCREEN 10/02/2013 CHRISTEL PANEL ASSEMBLERCARLOS M V76.10 BREAST CANCER SCREENING 10/02/2013 CHRISTEL PANEL ASSEMBLERCARLOS M V65.42 COUNSELING - SMOKING CESSATION 10/02/2013 CHRISTEL PANEL ASSEMBLERCARLOS M V74.5 STD SCREEN 10/02/2013 CHRISTEL PANEL ASSEMBLERCARLOS M V76.10 BREAST CANCER SCREENING 10/02/2013 CHRISTEL PANEL ASSEMBLERCARLOS M V65.42 COUNSELING - SMOKING CESSATION 10/02/2013 CHRISTEL PANEL ASSEMBLERCARLOS M V74.5 STD SCREEN 10/02/2013 CHRISTEL PANEL ASSEMBLERCARLOS M V76.10 BREAST CANCER SCREENING 10/02/2013 CHRISTEL PANEL ASSEMBLERCARLOS M V65.42 COUNSELING - SMOKING CESSATION 10/02/2013 CARLOS AHUJA M V74.5 STD SCREEN 10/02/2013 CARLOS AHUJA M V76.10 BREAST CANCER SCREENING 01/01/2014 WENDI BLACK MD 307 .42 PERSISTENT DISORDER OF INITIATING OR MAINTAINING SLEEP 01/01/2014 WENDI BLACK MD 599 .70 HEMATURIA UNSPECIFIED 01/01/2014 WENDI BLACK MD 724 .2 LUMBAGO 01/01/2014 WENDI BLACK MD 307 .42 PERSISTENT DISORDER OF INITIATING OR MAINTAINING SLEEP 01/01/2014 WENDI BLACK MD 599 .70 HEMATURIA UNSPECIFIED 01/01/2014 WENDI BLACK MD N 724 .2 LUMBAGO 01/01/2014 DIMPLE PEÑALOZA DO 307.42 PERSISTENT [...] OF INITIATING OR MAINTAINING SLEEP 01/01/2014 PEÑALOZA DO, DIMPLE K 599.70 HEMATURIA UNSPECIFIED 01/01/2014 DIMPLE PEÑALOZA DO K 724.2 LUMBAGO 01/01/2014 WNEDI BLACK MD N 307 .42 PERSISTENT DISORDER OF INITIATING OR MAINTAINING SLEEP 01/01/2014 WENDI BLACK MD N 599 .70 HEMATURIA UNSPECIFIED 01/01/2014 WENDI BLACK MD N 724 .2 LUMBAGO 01/01/2014 WENDI BLACK MD N 307 .42 PERSISTENT DISORDER OF INITIATING OR MAINTAINING SLEEP 01/01/2014 WENDI BLACK MD N 599 .70 HEMATURIA UNSPECIFIED 01/01/2014 WENDI BLACK MD N 724 .2 LUMBAGO 01/01/2014 TIN HEREDIA PSYD L 307.42 PERSISTENT DISORDER OF INITIATING OR MAINTAINING SLEEP 01/01/2014 TIN HEREDIA PSYD 599.70 HEMATURIA UNSPECIFIED 01/01/2014 TIN HEREDIA PSYD ANN L 724.2 LUMBAGO 01/01/2014 WENDI BLACK MD N 307 .42 PERSISTENT DISORDER OF INITIATING OR MAINTAINING SLEEP 01/01/2014 WENDI BLACK MD N 599 .70 HEMATURIA UNSPECIFIED 01/01/2014 WENDI BLACK MD N 724 .2 LUMBAGO 01/01/2014 WENDI BLACK MD N 307 .42 PERSISTENT DISORDER OF INITIATING OR MAINTAINING SLEEP 01/01/2014 WENDI BLACK MD N 599 .70 HEMATURIA UNSPECIFIED 01/01/2014 WENDI BLACK MD N 724 .2 LUMBAGO 01/01/2014 CARLOS AHUJA 307.42 PERSISTENT DISORDER OF INITIATING OR MAINTAINING SLEEP 01/01/2014 CARLOS AHUJA 599.70 HEMATURIA UNSPECIFIED 01/01/2014 CARLOS AHUJA 724.2 LUMBAGO 01/01/2014 CARLOS AHUJA 307.42 PERSISTENT DISORDER OF INITIATING OR MAINTAINING SLEEP 01/01/2014 CARLOS AHUJA 599.70 HEMATURIA UNSPECIFIED 01/01/2014 CARLOS AHUJA 724.2 LUMBAGO 01/01/2014 CARLOS AHUJA 307.42 PERSISTENT DISORDER OF INITIATING OR MAINTAINING SLEEP 01/01/2014 CARLOS AHUJA 599.70 HEMATURIA UNSPECIFIED 01/01/2014 CHRISTEL SALAZAR CARLOS M 724.2 LUMBAGO 01/01/2014 CARLOS AHUJA M 307.42 PERSISTENT DISORDER OF INITIATING OR MAINTAINING SLEEP 01/01/2014 CHRISTEL SALAZAR CARLOS M 599.70 HEMATURIA UNSPECIFIED 01/01/2014 CHRISTEL SALAZAR CARLOS M 724.2 LUMBAGO 02/17/2014 PEÑALOZA DO, DIMPLE K 466.0 BRONCHITIS, ACUTE 02/17/2014 GIBSON UMANGMANAV 466.0 BRONCHITIS, ACUTE 02/17/2014 PEÑALOZA DO, DIMPLE K 466.0 BRONCHITIS, ACUTE 02/17/2014 WENDI BLACK MD 466 .0 BRONCHITIS, ACUTE 02/17/2014 WENDI BLACK MD 466 .0 BRONCHITIS, ACUTE 02/17/2014 TIN HEREDIA PSYD 466.0 BRONCHITIS, ACUTE 02/17/2014 WENDI BLACK MD 466 .0 BRONCHITIS, ACUTE 02/17/2014 WENDI BLACK MD N 466 .0 BRONCHITIS, ACUTE 02/17/2014 CARLOS AHUJA 466.0 BRONCHITIS, ACUTE 02/17/2014 CARLOS AHUJA 466.0 BRONCHITIS, ACUTE 02/17/2014 CARLOS AHUJA 466.0 BRONCHITIS, ACUTE 02/17/2014 CARLOS AHUJA 466.0 BRONCHITIS, ACUTE 05/21/2014 WENDI BLACK MD 388 .70 OTALGIA UNSPECIFIED 05/21/2014 WENDI BLACK MD 388 .70 OTALGIA UNSPECIFIED 05/21/2014 TIN HEREDIA PSYD 388.70 OTALGIA UNSPECIFIED 05/21/2014 WENDI BLACK MD N 388 .70 OTALGIA UNSPECIFIED 05/21/2014 WENDI BLACK MD N 388 .70 OTALGIA UNSPECIFIED 05/21/2014 CARLOS AHUJA 388.70 OTALGIA UNSPECIFIED 05/21/2014 CARLOS AHUJA 388.70 OTALGIA UNSPECIFIED 05/21/2014 CARLOS AHUJA M 388.70 OTALGIA UNSPECIFIED 05/21/2014 CARLOS AHUJA M 388.70 OTALGIA UNSPECIFIED 06/26/2014 WENDI BLACK MD 346 .80 OTHER FORMS OF MIGRAINE WITHOUT INTRACTABLE MIGRAINE WITHOUT MENTION OF STATUS MIGRAINOSUS 06/26/2014 WENDI BLACK MD 786 .50 CHEST PAIN 06/26/2014 WENDI BLACK MD 346 .80 OTHER FORMS OF MIGRAINE WITHOUT INTRACTABLE MIGRAINE WITHOUT MENTION OF STATUS MIGRAINOSUS 06/26/2014 WENDI BLACK MD 786 .50 CHEST PAIN 06/26/2014 CHRISTEL PANEL ASSEMBLER, CARLOS M 346.80 OTHER FORMS OF MIGRAINE WITHOUT INTRACTA BLE MIGRAINE WITHOUT MENTION OF STATUS MIGRAINOSUS 06/26/2014 CHRISTEL PANEL ASSEMBLER, CARLOS M 786.50 CHEST PAIN 06/26/2014 CHRISTEL PANEL ASSEMBLER, CARLOS M 346.80 OTHER FORMS OF MIGRAINE WITHOUT INTRACTA BLE MIGRAINE WITHOUT MENTION OF STATUS MIGRAINOSUS 06/26/2014 CHRISTEL PANEL ASSEMBLER, CARLOS M 786.50 CHEST PAIN 06/26/2014 CHRISTEL PANEL ASSEMBLER, CARLOS M 346.80 OTHER FORMS OF MIGRAINE WITHOUT INTRACTA BLE MIGRAINE WITHOUT MENTION OF STATUS MIGRAINOSUS 06/26/2014 CHRISTEL PANEL ASSEMBLER, CARLOS M 786.50 CHEST PAIN 06/26/2014 CHRISTEL PANEL ASSEMBLER, CARLOS M 346.80 OTHER FORMS OF MIGRAINE WITHOUT INTRACTA BLE MIGRAINE WITHOUT MENTION OF STATUS MIGRAINOSUS 06/26/2014 CHRISTEL PANEL ASSEMBLER, CARLOS M 786.50 CHEST PAIN 07/16/2014 CHRISTEL PANEL ASSEMBLER, CARLOS M 578.1 BLOOD IN STOOL 07/16/2014 CHRISTEL PANEL ASSEMBLER, CARLOS M 578.1 BLOOD IN STOOL 12/02/2014 BRAYDEN [...] 12/02/2014 Ot 786.50 12/02/2014 Ot V88.01 12/02/2014 KEATING, PETER J COMPLEX COMMERCIAL LITIGATION PARALEGAL Ot 305 .1 TOBACCO USE DISORDER 12/02/2014 SOCORRO KEATING COMPLEX COMMERCIAL LITIGATION PARALEGAL Ot 525 .9 DENTAL DISORDER NOS 12/02/2014 SOCORRO KEATING COMPLEX COMMERCIAL LITIGATION PARALEGAL Ot 526 .5 ALVEOLITIS OF JAW 12/02/2014 BRAYDEN RICE FACC, ALI FACP CCDS [...] Ot V88.01 12/28/2014 ALVARO CABRERA MD Ot 723 .1 CERVICALGIA 12/28/2014 ALVARO CABRERA MD Ot E000.8 OTHER EXTERNAL CAUSE STATUS 12/28/2014 ALVARO CABRERA MD Ot E816.0 LOSS CONTROL MV ACC-DRIV 12/28/2014 BRAYDEN RICE FACC, DIANE FACP CCDS Ot 272.4 12/28/2014 BRAYDEN RICE [...] FACP CCDS Ot 786.50 06/02/2015 [facility] F[facility] CCDS Ot V88.01 06/02/2015 Ot 272.4 06/02/2015 Ot 278.00 06/02/2015 Ot 305.1 06/02/2015 Ot 401.9 06/02/2015 Ot 786.50 06/02/2015 Ot V88.01 06/02/2015 KINGA RICE, MARCELLUS Lacey Ot K52. 9 NONINFECTIVE GASTROENTERITIS AND COLITIS 06/02/2015 BRAYDEN RICE FACC, ALI FACP CCDS Ot 272.4 06/02/2015 BRAYDEN RICE [facility], ALI FACP CCDS Ot 278.00 06/02/2015 BRAYDEN RICE [facility], ALI FACP CCDS Ot 305.1 06/02/2015 BRAYDEN RICE [facility], ALI FACP CCDS Ot 401.9 06/02/2015 BRAYDEN RICE [facility], ALI FACP CCDS Ot 786.50 06/02/2015 BRAYDEN RICE [facility], ALI FACP CCDS Ot V88.01 06/02/2015 [...] (PRIMARY) HYPERTENSION 03/01/2016 SOCORRO KEATING APRN Ot K52 .9 NONINFECTIVE GASTROENTERITIS AND COLITIS 03/01/2016 SOCORRO KEATING APRN Ot R11 .2 NAUSEA WITH VOMITING, UNSPECIFIED 03/01/2016 SOCORRO KEATING APRN Ot Z79.899 OTHER [facility] (CURRENT) DRUG THERAPY 03/02/2016 SOCORRO KEATING APRN Ot I10 ESSENTIAL (PRIMARY) HYPERTENSION 03/02/2016 SOCORRO KEATING APRN Ot K52 .9 NONINFECTIVE GASTROENTERITIS AND COLITIS 03/02/2016 SOCORRO KEATING APRN Ot R11 .2 NAUSEA WITH VOMITING, UNSPECIFIED 03/02/2016 SOCORRO KEATING APRN Ot 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 03/02/2016 SOCORRO KEATING COMPLEX COMMERCIAL LITIGATION PARALEGAL Ot I10 ESSENTIAL (PRIMARY) HYPERTENSION 03/02/2016 SOCORRO KEATING APRN Ot K52 .9 NONINFECTIVE GASTROENTERITIS AND COLITIS 03/02/2016 SOCORRO KEATING COMPLEX COMMERCIAL LITIGATION PARALEGAL Ot R11 .2 NAUSEA WITH VOMITING, UNSPECIFIED 03/02/2016 SOCORRO KEATING APRN Ot 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 03/05/2016 SOCORRO KEATING APRN Ot I10 ESSENTIAL (PRIMARY) HYPERTENSION 03/05/2016 SOCORRO KEATING APRN Ot K52 .9 NONINFECTIVE GASTROENTERITIS AND COLITIS 03/05/2016 SOCORRO KEATING COMPLEX COMMERCIAL LITIGATION PARALEGAL Ot R11 .2 NAUSEA WITH VOMITING, UNSPECIFIED 03/05/2016 SOCORRO KEATING COMPLEX COMMERCIAL LITIGATION PARALEGAL Ot Z79.899 OTHER [facility] (CURRENT) DRUG THERAPY 03/08/2016 SOCORRO KEATING COMPLEX COMMERCIAL LITIGATION PARALEGAL Ot I10 ESSENTIAL (PRIMARY) HYPERTENSION 03/08/2016 SOCORRO KEATING COMPLEX COMMERCIAL LITIGATION PARALEGAL Ot K52 .9 NONINFECTIVE GASTROENTERITIS AND COLITIS 03/08/2016 SOCORRO KEATING APRN Ot R11 .2 NAUSEA WITH VOMITING, UNSPECIFIED 03/08/2016 SOCORRO KEATING APRN Ot Z79.899 OTHER [facility] (CURRENT) DRUG THERAPY 03/14/2016 SOCORRO KEATING APRN Ot I10 ESSENTIAL (PRIMARY) HYPERTENSION 03/14/2016 SOCORRO KEATING APRN Ot K52 .9 NONINFECTIVE GASTROENTERITIS AND COLITIS 03/14/2016 SOCORRO KEATING COMPLEX COMMERCIAL LITIGATION PARALEGAL Ot R11 .2 NAUSEA WITH VOMITING, UNSPECIFIED 03/14/2016 SOCORRO KEATING APRN Ot 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 06/30/2016 ALVARO CABRERA MD [...] (PRIMARY) HYPERTENSION 08/17/2016 GUY XIAO DO Ot S92.325 D NONDISP FX OF 2ND METATARSAL BONE, L FT, 08/17/2016 GUY XIAO DO Ot S92.335 A NONDISP FX OF THIRD METATARSAL BONE, LEF 08/17/2016 GUY XIAO DO Ot S99.922 A UNSPECIFIED INJURY OF LEFT FOOT, INITIAL 08/17/2016 DAMEON YEPEZ GUY Everette Ot X50.0XX A OVEREXERTION FROM STRENUOUS MOVEMENT OR 08/17/2016 DAMEON YEPEZ GUY Everette Ot Y99.8 OTHER EXTERNAL CAUSE STATUS 08/17/2016 DAMEON YEPEZ GUY Gaviria Ot 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 09/11/2016 ANKIT BE MD Ot F17.210 NICOTINE DEPENDENCE, CIGARETTES, UNCOMPL 09/11/2016 ANKIT BE MD Ot I10 ESSENTIAL (PRIMARY) HYPERTENSION 09/11/2016 ANKIT BE MD Ot N17. 9 ACUTE KIDNEY FAILURE, UNSPECIFIED 09/11/2016 ANKIT BE MD Ot R39. 15 URGENCY OF URINATION 09/17/2016 ANKIT BE MD Ot F17.210 NICOTINE DEPENDENCE, CIGARETTES, UNCOMPL 09/17/2016 ANKIT BE MD Ot I10 ESSENTIAL (PRIMARY) HYPERTENSION 09/17/2016 ANKIT BE MD Ot N17. 9 ACUTE KIDNEY FAILURE, UNSPECIFIED 09/17/2016 ANKIT BE MD Ot R39. 15 URGENCY OF URINATION 09/25/2016 CRYSTAL SINGLETON MD Ot F17.210 NICOTINE DEPENDENCE, CIGARETTES, UNCOMPL 09/25/2016 CRYSTAL SINGLETON MD Ot I10 ESSENTIAL (PRIMARY) HYPERTENSION 09/25/2016 CRYSTAL SINGLETON MD Ot M54. 5 LOW BACK PAIN 09/25/2016 CRYSTAL SINGLETON MD Ot R11. 0 NAUSEA 09/25/2016 CRYSTAL SINGLETON MD Ot R53. 83 OTHER FATIGUE 09/25/2016 CRYSTAL SINGLETON MD Ot Z79.899 OTHER [facility] (CURRENT) DRUG THERAPY 09/27/2016 CRYSTAL SINGLETON MD Ot F17.210 NICOTINE DEPENDENCE, CIGARETTES, UNCOMPL 09/27/2016 CRYSTAL SINGLETON MD Ot I10 ESSENTIAL (PRIMARY) HYPERTENSION 09/27/2016 CRYSTAL SINGLETON MD Ot M54. 5 LOW BACK PAIN 09/27/2016 CRYSTAL SINGLETON MD Ot R11. 0 NAUSEA 09/27/2016 CRYSTAL SINGLETON MD J Ot R53. 83 OTHER FATIGUE 09/27/2016 CRYSTAL SINGLETON MD Ot 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 10/01/2016 CRYSTAL SINGLETON MD Ot F17.210 NICOTINE DEPENDENCE, CIGARETTES, UNCOMPL 10/01/2016 CRYSTAL SINGLETON MD Ot I10 ESSENTIAL (PRIMARY) HYPERTENSION 10/01/2016 CRYSTAL SINGLETON MD Ot M54. 5 LOW BACK PAIN 10/01/2016 CRYSTAL SINGLETON MD Ot R11. 0 NAUSEA 10/01/2016 CRYSTAL SINGLETON MD Ot R53. 83 OTHER FATIGUE 10/01/2016 CRYSTAL SINGLETON MD Ot Z79.899 OTHER [facility] (CURRENT) DRUG THERAPY 12/06/2016 GUY XIAO DO Ot E78.00 PURE HYPERCHOLESTEROLEMIA, UNSPECIFIED 12/06/2016 GUY XIAO DO Ot E86.0 DEHYDRATION 12/06/2016 GUY XIAO DO Ot F17.210 NICOTINE DEPENDENCE, CIGARETTES, UNCOMPL 12/06/2016 GUY XIAO DO Ot F32.9 MAJOR DEPRESSIVE DISORDER, SINGLE EPISOD 12/06/2016 GUY XIAO DO Ot F41.9 ANXIETY DISORDER, UNSPECIFIED 12/06/2016 KINGSTON XIAO DOA K Ot I10 ESSENTIAL (PRIMARY) HYPERTENSION 12/06/2016 GUY XIAO DO Ot J45.909 UNSPECIFIED ASTHMA, UNCOMPLICATED 12/06/2016 GUY XIAO DO Ot K52.9 NONINFECTIVE GASTROENTERITIS AND COLITIS 12/06/2016 GUY XIAO DO Ot N28.9 DISORDER OF KIDNEY AND URETER, UNSPECIFI 12/06/2016 GUY XIAO DO Ot N39.0 URINARY TRACT INFECTION, SITE NOT SPECIF 12/06/2016 GUY XIAO DO Ot R10.84 GENERALIZED ABDOMINAL PAIN 12/06/2016 GUY XIAO DO Ot Z90.49 ACQUIRED ABSENCE OF OTHER SPECIFIED PART 12/06/2016 GUY XIAO DO Ot Z90.710 ACQUIRED ABSENCE [...] Ot I10 ESSENTIAL (PRIMARY) HYPERTENSION 12/09/2016 DAMEON DO, GUY K Ot J45.909 UNSPECIFIED ASTHMA, UNCOMPLICATED 12/09/2016 DAMEON DO, GUY K Ot K52.9 NONINFECTIVE GASTROENTERITIS AND COLITIS 12/09/2016 DAMEON DO, GUY K Ot N28.9 DISORDER OF KIDNEY AND URETER, UNSPECIFI 12/09/2016 DAMEON DO, GUY K Ot N39.0 URINARY TRACT INFECTION, SITE NOT SPECIF 12/09/2016 DAMEON DO GUY K Ot R10.84 GENERALIZED ABDOMINAL PAIN 12/09/2016 DAMEON DO, GUY K Ot Z90.49 ACQUIRED ABSENCE OF OTHER SPECIFIED PART 12/09/2016 DAMEON DO, GUY K Ot Z90.710 ACQUIRED ABSENCE OF BOTH CERVIX AND UTER 12/21/2016 UZMA IRVING Ot E78.00 PURE HYPERCHOLESTEROLEMIA, UNSPECIFIED 12/21/2016 UZMA IRVING Ot F17.210 NICOTINE DEPENDENCE, CIGARETTES, UNCOMPL 12/21/2016 UZMA IRVING Ot F32.9 MAJOR DEPRESSIVE DISORDER, SINGLE EPISOD 12/21/2016 UZMA IRVING Ot F41.9 ANXIETY DISORDER, UNSPECIFIED 12/21/2016 UZMA IRVING Ot I 10 ESSENTIAL (PRIMARY) HYPERTENSION 12/21/2016 UZMA IRVING Ot J45.909 UNSPECIFIED ASTHMA, UNCOMPLICATED 12/21/2016 UZMA IRVING Ot L72.3 SEBACEOUS CYST 12/21/2016 UZMA IRVING Ot M54.41 LUMBAGO WITH SCIATICA, RIGHT SIDE 12/21/2016 UZMA IRVING Ot M54.5 LOW BACK PAIN 12/21/2016 UZMA IRVING Ot Z90.49 ACQUIRED ABSENCE OF OTHER SPECIFIED PART 12/21/2016 UZMA IRVING Ot Z90.710 ACQUIRED ABSENCE OF BOTH CERVIX AND UTER 12/28/2016 WINSTON, JASMINA SORTER/ASSAY TECH Ot E78.00 PURE HYPERCHOLESTEROLEMIA, UNSPECIFIED 12/28/2016 WINSTON, JASMINA SORTER/ASSAY TECH Ot F32.9 MAJOR DEPRESSIVE DISORDER, SINGLE EPISOD 12/28/2016 WINSTON, JASMINA SORTER/ASSAY TECH Ot F41.9 ANXIETY DISORDER, UNSPECIFIED 12/28/2016 WINSTON, JASMINA SORTER/ASSAY TECH Ot I10 ESSENTIAL (PRIMARY) HYPERTENSION 12/28/2016 WINSTON, JASMINA SORTER/ASSAY TECH Ot J45.909 UNSPECIFIED ASTHMA, UNCOMPLICATED 12/28/2016 WINSTON, JASMINA SORTER/ASSAY TECH Ot M54.16 RADICULOPATHY, LUMBAR REGION 12/28/2016 WINSTON JASMINA SORTER/ASSAY TECH Ot M54.5 LOW BACK PAIN 12/28/2016 WINSTON JASMINA SORTER/ASSAY TECH Ot Z87.81 PERSONAL HISTORY OF (HEALED) TRAUMATIC F 12/28/2016 WINSTON, JASMINA SORTER/ASSAY TECH Ot Z90.710 ACQUIRED ABSENCE OF BOTH CERVIX AND UTER 12/28/2016 WINSTON, JASMINA SORTER/ASSAY TECH Ot Z98.890 OTHER SPECIFIED POSTPROCEDURAL STATES 12/31/2016 SOCORRO KEATING APRN Ot E78.00 PURE HYPERCHOLESTEROLEMIA, UNSPECIFIED 12/31/2016 SOCORRO KEATING APRN Ot F17.210 NICOTINE DEPENDENCE, CIGARETTES, UNCOMPL 12/31/2016 SOCORRO KEATING COMPLEX COMMERCIAL LITIGATION PARALEGAL Ot I10 ESSENTIAL (PRIMARY) HYPERTENSION 12/31/2016 SOCORRO KEATING APRN Ot J45.909 UNSPECIFIED ASTHMA, UNCOMPLICATED 12/31/2016 SOCORRO KEATING APRN Ot M54 .5 LOW BACK PAIN 12/31/2016 SOCORRO KEATING APRN Ot Z87.81 PERSONAL HISTORY OF (HEALED) TRAUMATIC F 12/31/2016 SOCORRO KEATING APRN Ot Z90.710 ACQUIRED ABSENCE OF BOTH CERVIX AND UTER 12/31/2016 SOCORRO KEATING COMPLEX COMMERCIAL LITIGATION PARALEGAL Ot Z98.890 OTHER SPECIFIED POSTPROCEDURAL STATES 01/03/2017 WINSTON, JASMINA SORTER/ASSAY TECH Ot E78.00 PURE HYPERCHOLESTEROLEMIA, UNSPECIFIED 01/03/2017 WINSTON, JASMINA SORTER/ASSAY TECH Ot F32.9 MAJOR DEPRESSIVE DISORDER, SINGLE EPISOD 01/03/2017 WINSTON, JASMINA SORTER/ASSAY TECH Ot F41.9 ANXIETY DISORDER, UNSPECIFIED 01/03/2017 WINSTON JASMINA SORTER/ASSAY TECH Ot I10 ESSENTIAL (PRIMARY) HYPERTENSION 01/03/2017 WINSTON, JASMINA ZHOUP Ot J45.909 UNSPECIFIED ASTHMA, UNCOMPLICATED 01/03/2017 JASMINA MONTEROP Ot M54.16 RADICULOPATHY, LUMBAR REGION 01/03/2017 WINSTON JASMINA ZHOUP Ot M54.5 LOW BACK PAIN 01/03/2017 WINSTON JASMINA ZHOUP Ot Z87.81 PERSONAL HISTORY OF (HEALED) TRAUMATIC F 01/03/2017 WINSTON JASMINA ZHOUP Ot Z90.710 ACQUIRED ABSENCE OF BOTH CERVIX AND UTER 01/03/2017 WINSTON, JASMINA ZHOUP Ot Z98.890 OTHER SPECIFIED POSTPROCEDURAL STATES 01/03/2017 SOCORRO KEATNIG APRN Ot E78.00 PURE HYPERCHOLESTEROLEMIA, UNSPECIFIED 01/03/2017 SOCORRO KEATING APRN Ot F17.210 NICOTINE DEPENDENCE, CIGARETTES, UNCOMPL 01/03/2017 SOCORRO KEATING APRN Ot I10 ESSENTIAL (PRIMARY) HYPERTENSION 01/03/2017 SOCORRO KEATING COMPLEX COMMERCIAL LITIGATION PARALEGAL Ot J45.909 UNSPECIFIED ASTHMA, UNCOMPLICATED 01/03/2017 SOCORRO KEATING APRN Ot M54 .5 LOW BACK PAIN 01/03/2017 SOCORRO KEATING APRN Ot Z87.81 PERSONAL HISTORY OF (HEALED) TRAUMATIC F 01/03/2017 SOCORRO KEATING COMPLEX COMMERCIAL LITIGATION PARALEGAL Ot Z90.710 ACQUIRED ABSENCE OF BOTH CERVIX AND UTER 01/03/2017 SOCORRO KEATING APRN Ot Z98.890 OTHER SPECIFIED POSTPROCEDURAL STATES 01/13/2017 ANKIT BE MD Ot F17.210 NICOTINE DEPENDENCE, CIGARETTES, UNCOMPL 01/13/2017 ANKIT BE MD Ot I10 ESSENTIAL (PRIMARY) HYPERTENSION 01/13/2017 ANKIT BE MD Ot N17. 9 ACUTE KIDNEY FAILURE, UNSPECIFIED 01/13/2017 ANKIT BE MD Ot R39. 15 URGENCY OF URINATION 01/15/2017 GUY XIAO DO Ot E78.00 PURE HYPERCHOLESTEROLEMIA, UNSPECIFIED 01/15/2017 DAMEON KINGSTON YEPEZA K Ot F17.210 NICOTINE DEPENDENCE, CIGARETTES, UNCOMPL 01/15/2017 GUY XIAO DO Ot F32.9 MAJOR DEPRESSIVE DISORDER, SINGLE EPISOD 01/15/2017 GUY XIAO DO Ot F41.9 ANXIETY DISORDER, UNSPECIFIED 01/15/2017 GUY XIAO DO Ot I10 ESSENTIAL (PRIMARY) HYPERTENSION 01/15/2017 GUY XIAO DO Ot M54.41 LUMBAGO WITH SCIATICA, RIGHT SIDE 01/15/2017 GUY XIAO DO Ot M54.42 LUMBAGO WITH SCIATICA, LEFT SIDE 01/15/2017 GUY XIAO DO Ot R20.0 ANESTHESIA OF SKIN 01/15/2017 DAMEON YEPEZ GUY Gaviria Ot Z87.81 PERSONAL HISTORY OF (HEALED) TRAUMATIC F 01/15/2017 DAMEON YEPEZ GUY Everette Ot Z90.710 ACQUIRED ABSENCE OF BOTH CERVIX AND UTER 01/15/2017 SOFIA RICE, WENDI Dupont Ot M12.88 OTH SPECIFIC ARTHROPATHIES, NEC, OTH SIT 02/06/2017 SOFIA RICE, WENDI Dupont Ot M12.88 OTH SPECIFIC ARTHROPATHIES, NEC, OTH SIT 02/07/2017 DAMEON YEPEZ GUY Everette Ot F17.210 NICOTINE DEPENDENCE, CIGARETTES, UNCOMPL 02/07/2017 DAMEON YEPEZ GUY Gaviria Ot I10 ESSENTIAL (PRIMARY) HYPERTENSION 02/07/2017 DAMEON YEPEZ GUY Gaviria Ot S92.325 D NONDISP FX OF 2ND METATARSAL BONE, L FT, 02/07/2017 DAMEON YEPEZ GUY Everette Ot S92.335 A NONDISP FX OF THIRD METATARSAL BONE, LEF 02/07/2017 DAMEON YEPEZ GUY Gaviria Ot S99.922 A UNSPECIFIED INJURY OF LEFT FOOT, INITIAL 02/07/2017 DAMEON YEPEZ GUY Gaviria Ot X50.0XX A OVEREXERTION FROM STRENUOUS MOVEMENT OR 02/07/2017 DAMEON YEPEZ GUY Gaviria Ot Y99.8 OTHER EXTERNAL CAUSE STATUS 02/07/2017 DAMEON YEPEZ GUY Gaviria Ot 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 02/07/2017 UZMA IRVING Ot E78.00 PURE HYPERCHOLESTEROLEMIA, UNSPECIFIED 02/07/2017 UZMA IRVING Ot F17.210 NICOTINE DEPENDENCE, CIGARETTES, UNCOMPL 02/07/2017 UZMA IRVING Ot F32.9 MAJOR DEPRESSIVE DISORDER, SINGLE EPISOD 02/07/2017 UZMA IRVING Ot F41.9 ANXIETY DISORDER, UNSPECIFIED 02/07/2017 UZMA IRVNIG Ot I 10 ESSENTIAL (PRIMARY) HYPERTENSION 02/07/2017 UZMA IRVING Ot [...] OTH SIT 02/11/2017 WENDI BLACK MD Ot M54 .9 DORSALGIA, UNSPECIFIED 03/01/2017 WENDI BLACK MD Ot M54 .9 DORSALGIA, UNSPECIFIED 04/02/2017 WENDI BLACK MD Ot M12.88 OTH SPECIFIC ARTHROPATHIES, NEC, OTH SIT 04/02/2017 BOBY DANIELLE MD Ot E78.00 PURE HYPERCHOLESTEROLEMIA, UNSPECIFIED 04/02/2017 BOBY DANIELLE MD Ot F32.9 MAJOR DEPRESSIVE DISORDER, SINGLE EPISOD 04/02/2017 BOBY DANIELLE MD Ot F41.9 ANXIETY DISORDER, UNSPECIFIED 04/02/2017 BOBY DANIELLE MD Ot I10 ESSENTIAL (PRIMARY) HYPERTENSION 04/02/2017 BOBY DANIELLE MD Ot J45.909 UNSPECIFIED ASTHMA, UNCOMPLICATED 04/02/2017 BBOY DANIELLE MD Ot M48.061 SPINAL STENOSIS, LUMBAR REGION WITHOUT N 04/02/2017 BOBY DANIELLE MD Ot M54.16 RADICULOPATHY, LUMBAR REGION 04/02/2017 BOBY DANIELLE MD Ot M54.5 LOW BACK PAIN 04/02/2017 BOBY DANIELLE MD Ot Z87.81 PERSONAL HISTORY OF (HEALED) TRAUMATIC F 04/02/2017 SHASHI RICE, BOBY Roy Ot Z90.710 ACQUIRED ABSENCE OF BOTH CERVIX AND UTER 04/10/2017 CRYSTAL SINGLETON MD J Ot F17.210 NICOTINE DEPENDENCE, CIGARETTES, UNCOMPL 04/10/2017 CRYSTAL SINGLETON MD J Ot F31. 9 BIPOLAR DISORDER, UNSPECIFIED 04/10/2017 SORIN SINGLETON MDUS J Ot F41. 9 ANXIETY DISORDER, UNSPECIFIED 04/10/2017 MANI RICE CRYSTAL J Ot J45.909 UNSPECIFIED ASTHMA, UNCOMPLICATED 04/10/2017 SORIN SINGLETON MDUS J Ot R10. 31 RIGHT LOWER QUADRANT PAIN 04/10/2017 SORIN SINGLETON MDUS J Ot Z90.710 ACQUIRED ABSENCE OF BOTH CERVIX AND UTER 04/12/2017 CRYSTAL SINGLETON MD Ot F17.210 NICOTINE DEPENDENCE, CIGARETTES, UNCOMPL 04/12/2017 CRYSTAL SINGLETON MD Ot F31. 9 BIPOLAR DISORDER, UNSPECIFIED 04/12/2017 CRYSTAL SINGLETON MD Ot F41. 9 ANXIETY DISORDER, UNSPECIFIED 04/12/2017 MANI RICE CRYSTAL J Ot J45.909 UNSPECIFIED ASTHMA, UNCOMPLICATED 04/12/2017 MANI RICE CRYSTAL J Ot R10. 31 RIGHT LOWER QUADRANT PAIN 04/12/2017 MANI RICE, CRYSTAL J Ot Z90.710 ACQUIRED ABSENCE OF BOTH CERVIX AND UTER 10/02/2017 DAMEON DO, GUY K Ot E78.00 PURE HYPERCHOLESTEROLEMIA, UNSPECIFIED 10/02/2017 DAMEON DO, GUY K Ot F17.210 NICOTINE DEPENDENCE, CIGARETTES, UNCOMPL 10/02/2017 DAMEON DO, GUY K Ot F32.9 MAJOR DEPRESSIVE DISORDER, SINGLE EPISOD 10/02/2017 DAMEON DO, GUY K Ot F41.9 ANXIETY DISORDER, UNSPECIFIED 10/02/2017 DAMEON DO, GUY K Ot G43.909 MIGRAINE, UNSP, NOT INTRACTABLE, WITHOUT 10/02/2017 DAMEON DO, GUY K Ot I10 ESSENTIAL (PRIMARY) HYPERTENSION 10/02/2017 DAMEON DO, GUY K Ot J45.909 UNSPECIFIED ASTHMA, UNCOMPLICATED 10/02/2017 DAMEON DO, GUY K Ot R40.214 2 COMA SCALE, EYES OPEN, SPONTANEOUS, EMR 10/02/2017 GUY XIAO DO Ot R40.225 2 COMA SCALE, BEST VERBAL RESPONSE, ORIENT 10/02/2017 GUY XIAO DO Ot R40.236 2 COMA SCALE, BEST MOTOR RESPONSE, OBEYS C 10/02/2017 GUY XIAO DO Ot R51 HEADACHE 10/02/2017 GUY XIAO DO Ot S00.93X A CONTUSION OF UNSPECIFIED PART OF HEAD, I 10/02/2017 GUY XIAO DO Ot W20.8XX A OTH CAUSE OF STRIKE BY THROWN, PROJECTED [...] STATUS TO ANALGESIC AGENT STATUS 10/02/2017 GUY XIAO DO Ot Z88.8 ALLERGY STATUS TO OTH DRUG/MEDS/BIOL SUB 10/02/2017 GUY XIAO DO Ot Z90.49 ACQUIRED ABSENCE OF OTHER SPECIFIED PART 10/02/2017 GUY XIAO DO Ot Z90.710 ACQUIRED ABSENCE OF BOTH CERVIX AND UTER 10/02/2017 GUY XIAO DO Ot Z98.890 OTHER SPECIFIED POSTPROCEDURAL STATES 10/03/2017 GUY XIAO DO Ot E78.00 PURE HYPERCHOLESTEROLEMIA, UNSPECIFIED 10/03/2017 GUY XIAO DO Ot F17.210 NICOTINE DEPENDENCE, CIGARETTES, UNCOMPL 10/03/2017 GUY XIAO DO Ot F32.9 MAJOR DEPRESSIVE DISORDER, SINGLE EPISOD 10/03/2017 GUY XIAO DO Ot F41.9 ANXIETY DISORDER, UNSPECIFIED 10/03/2017 GUY XIAO DO Ot G43.909 MIGRAINE, UNSP, NOT INTRACTABLE, WITHOUT 10/03/2017 DAMEON YEPEZ GUY K Ot I10 ESSENTIAL (PRIMARY) HYPERTENSION 10/03/2017 DAMEON GUY K Ot J45.909 UNSPECIFIED ASTHMA, UNCOMPLICATED 10/03/2017 DAMEON DO GUY K Ot R40.214 2 COMA SCALE, EYES OPEN, SPONTANEOUS, EMR 10/03/2017 DAMEON YEPEZGUY Ot R40.225 2 COMA SCALE, BEST VERBAL RESPONSE, ORIENT 10/03/2017 DAMEON GUY K Ot R40.236 2 COMA SCALE, BEST MOTOR RESPONSE, OBEYS C 10/03/2017 DAMEON GUY Ot R51 HEADACHE 10/03/2017 DAMEON GUY YEPEZ Ot S00.93X A CONTUSION OF UNSPECIFIED PART OF HEAD, I 10/03/2017 GUY XIAO DO Ot W20.8XX A OT CAUSE OF STRIKE BY THROWN, PROJECTED 10/03/2017 GUY XIAO DO Ot Y92.[address] OF OCCURRENCE OF THE EX 10/03/2017 DAMEON GUY YEPEZ Ot Z87.440 PERSONAL HISTORY OF URINARY (TRACT) INFE 10/03/2017 GUY XIAO DO Ot Z87.81 PERSONAL HISTORY OF (HEALED) TRAUMATIC F 10/03/2017 DAMEON GUY YEPEZ Ot Z88.1 ALLERGY STATUS TO OTHER ANTIBIOTIC AGENT 10/03/2017 DAMEON GUY YEPEZ Ot Z88.2 ALLERGY STATUS TO SULFONAMIDES STATUS 10/03/2017 DAMEON GUY YEPEZ Ot Z88.5 ALLERGY STATUS TO NARCOTIC AGENT STATUS 10/03/2017 DAMEON GUY YEPEZ Ot Z88.6 ALLERGY STATUS [...] DO Ot E78.00 PURE HYPERCHOLESTEROLEMIA, UNSPECIFIED 10/15/2017 AVENAL GUY Gaviria Ot F17.210 NICOTINE DEPENDENCE, CIGARETTES, UNCOMPL 10/15/2017 DAMEON GUY Everette Ot F32.9 MAJOR DEPRESSIVE DISORDER, SINGLE EPISOD 10/15/2017 DAMEON GUY Everette Ot F41.9 ANXIETY DISORDER, UNSPECIFIED 10/15/2017 DAMEON GUY Gaviria Ot G43.909 MIGRAINE, UNSP, NOT INTRACTABLE, WITHOUT 10/15/2017 DAMEON GUY Everette Ot I10 ESSENTIAL (PRIMARY) HYPERTENSION 10/15/2017 AVENAL GUY Everette Ot J45.909 UNSPECIFIED ASTHMA, UNCOMPLICATED 10/15/2017 DAMEON GUY Everette Ot R10.32 LEFT LOWER QUADRANT PAIN 10/15/2017 DAMEON GUY K Ot Z87.440 PERSONAL HISTORY OF URINARY (TRACT) INFE 10/15/2017 DAMEON GUY K Ot Z87.442 PERSONAL HISTORY OF URINARY CALCULI 10/15/2017 DAMEON GUY Everette Ot Z87.81 PERSONAL HISTORY OF (HEALED) TRAUMATIC F 10/15/2017 DAMEON GUY Gaviria Ot Z88.1 ALLERGY STATUS TO OTHER ANTIBIOTIC AGENT 10/15/2017 DAMEON GUY K Ot Z88.2 ALLERGY STATUS TO SULFONAMIDES STATUS 10/15/2017 DAMEON GUY Everette Ot Z88.5 ALLERGY STATUS TO NARCOTIC AGENT STATUS 10/15/2017 DAMEON GUY Everette Ot Z88.8 ALLERGY STATUS TO OTH DRUG/MEDS/BIOL SUB 10/15/2017 DAMEON GUY Everette Ot Z90.710 ACQUIRED ABSENCE OF BOTH CERVIX AND UTER 12/22/2017 BRAYDEN RICE FAC, ALI FACP CCDS Ot 272.4 HYPERLIPIDEMIA NEC/NOS 12/22/2017 BRAYDEN DILLONC, ALI FACP CCDS Ot 278.00 OBESITY, NOS 12/22/2017 BRAYDEN DILLONC, ALI FACP CCDS Ot 305.1 TOBACCO USE DISORDER 12/22/2017 BRAYDEN DILLONC, ALI FACP CCDS Ot 401.9 HYPERTENSION NOS 12/22/2017 BRAYDEN DILLONC, ALI FACP CCDS Ot 786.50 CHEST PAIN NOS 12/22/2017 BRAYDEN RICE FACC, ALI FACP CCDS Ot V88.01 ACQUIRED ABSENCE OF BOTH CERVIX AND UTER 12/22/2017 Ot 272.4 HYPE RLIPIDEMIA NEC/NOS 12/22/2017 Ot 278.00 OBE SITY, NOS 12/22/2017 Ot 305.1 [employer] USE DISORDER 12/22/2017 Ot 401.9 HYPE RTENSION NOS 12/22/[address] PAIN NOS 12/22/2017 Ot V88.01 ACQ UIRED ABSENCE OF BOTH CERVIX AND UTER 12/22/2017 SOFIA RICE, WENDI Dupont Ot M12.88 OTH SPECIFIC ARTHROPATHIES, NEC, OTH SIT 08/19/2018 GOMEZ MELGOZA DO, Ot D72.829 ELEVATED WHITE BLOOD CELL COUNT, UNSPECI 08/19/2018 GOMEZ MELGOZA DO Ot E78.00 PURE HYPERCHOLESTEROLEMIA, UNSPECIFIED 08/19/2018 GOMEZ MELGOZA DO, Ot F32 .9 MAJOR DEPRESSIVE DISORDER, SINGLE EPISOD 08/19/2018 GOMEZ MELGOZA DO, Ot F41 .9 ANXIETY DISORDER, UNSPECIFIED 08/19/2018 GOMEZ MELGOZA DO Ot G43.909 MIGRAINE, UNSP, NOT INTRACTABLE, WITHOUT 08/19/2018 GOMEZ MELGOZA DO Ot I10 ESSENTIAL (PRIMARY) HYPERTENSION 08/19/2018 GOMEZ MELGOZA DO, Ot J45.909 UNSPECIFIED ASTHMA, UNCOMPLICATED 08/19/2018 GOMEZ MELGOZA DO Ot R10.84 GENERALIZED ABDOMINAL PAIN 08/19/2018 GOMEZ MELGOZA DO Ot R11 .2 NAUSEA WITH VOMITING, UNSPECIFIED 08/19/2018 GOMEZ MELGOZA DO Ot R19 .7 DIARRHEA, UNSPECIFIED 08/19/2018 GOMEZ MELGOZA DO Ot R79.81 ABNORMAL BLOOD-GAS LEVEL 08/19/2018 GOMEZ MELGOZA DO Ot Z87.440 PERSONAL HISTORY OF URINARY (TRACT) INFE 08/19/2018 GOMEZ MELGOZA DO Ot Z87.442 PERSONAL HISTORY OF URINARY CALCULI 08/19/2018 GOMEZ MELGOZA DO Ot Z87.891 PERSONAL HISTORY OF NICOTINE DEPENDENCE 08/19/2018 GOMEZ MELGOZA DO Ot Z88 .0 ALLERGY STATUS TO PENICILLIN 08/19/2018 GOMEZ MELGOZA DO Ot Z88 .2 ALLERGY STATUS TO SULFONAMIDES STATUS 08/19/2018 GOMEZ MELGOZA DO Ot Z88 .5 ALLERGY STATUS TO NARCOTIC AGENT STATUS 08/19/2018 GOMEZ MELGOZA DO, Ot Z88 .6 ALLERGY STATUS TO ANALGESIC AGENT STATUS 08/19/2018 GOMEZ MELGOZA DO, Ot Z88 .8 ALLERGY STATUS TO OTH DRUG/MEDS/BIOL SUB 08/19/2018 GOMEZ MELGOZA DO, Ot Z90.49 ACQUIRED ABSENCE OF OTHER SPECIFIED PART 08/19/2018 GOMEZ MELGOZA DO, Ot Z90.710 ACQUIRED ABSENCE OF BOTH CERVIX AND UTER 08/19/2018 GOMEZ MELGOZA DO, Ot Z98.890 OTHER SPECIFIED POSTPROCEDURAL STATES 08/22/2018 GOMEZ MELGOZA DO, Ot D72.829 ELEVATED WHITE BLOOD CELL COUNT, UNSPECI 08/22/2018 GOMEZ MELGOZA DO, Ot E78.00 PURE HYPERCHOLESTEROLEMIA, UNSPECIFIED 08/22/2018 GOMEZ MELGOZA DO, Ot F32 .9 MAJOR DEPRESSIVE DISORDER, SINGLE EPISOD 08/22/2018 GOMEZ MELGOZA DO, Ot F41 .9 ANXIETY DISORDER, UNSPECIFIED 08/22/2018 GOMEZ MELGOZA DO, Ot G43.909 MIGRAINE, UNSP, NOT INTRACTABLE, WITHOUT 08/22/2018 GOMEZ MELGOZA DO, Ot I10 ESSENTIAL (PRIMARY) HYPERTENSION 08/22/2018 GOMEZ MELGOZA DO, Ot J45.909 UNSPECIFIED ASTHMA, UNCOMPLICATED 08/22/2018 GOMEZ MELGOZA DO, Ot R10.84 GENERALIZED ABDOMINAL PAIN 08/22/2018 GOMEZ MELGOZA DO, Ot R11 .2 NAUSEA WITH VOMITING, UNSPECIFIED 08/22/2018 GOMEZ MELGOZA DO, Ot R19 .7 DIARRHEA, UNSPECIFIED 08/22/2018 GOMEZ MELGOZA DO, Ot R79.81 ABNORMAL BLOOD-GAS LEVEL 08/22/2018 GOMEZ MELGOZA DO, Ot Z87.440 PERSONAL HISTORY OF URINARY (TRACT) INFE 08/22/2018 GOMEZ MELGOZA DO, Ot Z87.442 PERSONAL HISTORY OF URINARY CALCULI 08/22/2018 GOMEZ MELGOZA DO, Ot Z87.891 PERSONAL HISTORY OF NICOTINE DEPENDENCE 08/22/2018 GOMEZ MELGOZA DO Ot Z88 .0 ALLERGY STATUS TO PENICILLIN 08/22/2018 GOMEZ MELGOZA DO, Ot Z88 .2 ALLERGY STATUS TO SULFONAMIDES STATUS 08/22/2018 GOMEZ MELGOZA DO, Ot Z88 .5 ALLERGY STATUS TO NARCOTIC AGENT STATUS 08/22/2018 ABAD YEPEZ GOMEZ [place] Ot Z88 .6 ALLERGY STATUS TO ANALGESIC AGENT STATUS 08/22/2018 ABAD DO GOMEZ [place] Ot Z88 .8 ALLERGY STATUS TO OTH DRUG/MEDS/BIOL SUB 08/22/2018 ABAD DO GOMEZ Deras Ot Z90.49 ACQUIRED ABSENCE OF OTHER SPECIFIED PART 08/22/2018 GOMEZ MELGOZA DO Ot Z90.710 ACQUIRED ABSENCE OF BOTH CERVIX AND UTER 08/22/2018 ABAD DO GOMEZ Deras Ot Z98.890 OTHER SPECIFIED POSTPROCEDURAL STATES 12/05/2018 CRYSTAL SINGLETON MD J Ot E78. 00 PURE HYPERCHOLESTEROLEMIA, UNSPECIFIED 12/05/2018 CRYSTAL SINGLETON MD Ot F32. 9 MAJOR DEPRESSIVE DISORDER, SINGLE EPISOD 12/05/2018 CRYSTAL SINGLETON MD Ot F41. 9 ANXIETY DISORDER, UNSPECIFIED 12/05/2018 CRYSTAL SINGLETON MD Ot G43.909 MIGRAINE, UNSP, NOT INTRACTABLE, WITHOUT 12/05/2018 CRYSTAL SINGLETON MD J Ot I10 ESSENTIAL (PRIMARY) HYPERTENSION 12/05/2018 CRYSTAL SINGLETON MD Ot J45.909 UNSPECIFIED ASTHMA, UNCOMPLICATED 12/05/2018 CRYSTAL SINGLETON MD J Ot K59. 00 CONSTIPATION, UNSPECIFIED 12/05/2018 CRYSTAL SINGLETON MD Ot K62. 89 OTHER SPECIFIED DISEASES OF ANUS AND REC 12/05/2018 CRYSTAL SINGLETON MD Ot K64. 8 OTHER HEMORRHOIDS 12/05/2018 CRYSTAL SINGLETON MD Ot Z87.440 PERSONAL HISTORY OF URINARY (TRACT) INFE 12/05/2018 CRYSTAL SINGLETON MD Ot Z87.442 PERSONAL HISTORY OF URINARY CALCULI 12/05/2018 CRYSTAL SINGLETON MD Ot Z87.891 PERSONAL HISTORY OF NICOTINE DEPENDENCE 12/05/2018 CRYSTAL SINGLETON MD Ot Z88. 1 ALLERGY STATUS TO OTHER ANTIBIOTIC AGENT 12/05/2018 CRYSTAL SINGLETON MD Ot Z88. 2 ALLERGY STATUS TO SULFONAMIDES STATUS 12/05/2018 RCYSTAL SINGLETON MD Ot Z88. 5 ALLERGY STATUS TO NARCOTIC AGENT STATUS 12/05/2018 CRYSTAL SINGLETON MD Ot Z88. 8 ALLERGY STATUS TO OTH DRUG/MEDS/BIOL SUB 12/05/2018 CRYSTAL SINGLETON MD Ot Z90. 49 ACQUIRED ABSENCE OF OTHER SPECIFIED PART 12/05/2018 CRYSTAL SINGLETON MD Ot Z90.710 ACQUIRED ABSENCE OF BOTH CERVIX AND UTER 12/07/2018 CRYSTAL SINGLETON MD Ot E78. 00 PURE HYPERCHOLESTEROLEMIA, UNSPECIFIED 12/07/2018 CRYSTAL SINGLETON MD Ot F32. 9 MAJOR DEPRESSIVE DISORDER, SINGLE EPISOD 12/07/2018 CRYSTAL SINGLETON MD Ot F41. 9 ANXIETY DISORDER, UNSPECIFIED 12/07/2018 CRYSTAL SINGLETON MD Ot G43.909 MIGRAINE, UNSP, NOT INTRACTABLE, WITHOUT 12/07/2018 CRYSTAL SINGLETON MD Ot I10 ESSENTIAL (PRIMARY) HYPERTENSION 12/07/2018 CRYSTAL SINGLETON MD Ot J45.909 UNSPECIFIED ASTHMA, UNCOMPLICATED 12/07/2018 CRYSTAL SINGLETON MD Ot K59. 00 CONSTIPATION, UNSPECIFIED 12/07/2018 CRYSTAL SINGLETON MD Ot K62. 89 OTHER SPECIFIED DISEASES OF ANUS AND REC 12/07/2018 CRYSTAL SINGLETON MD Ot K64. 8 OTHER HEMORRHOIDS 12/07/2018 CRYSTAL SINGLETON MD Ot Z87.440 PERSONAL HISTORY OF URINARY (TRACT) INFE 12/07/2018 CRYSTAL SINGLETON MD Ot Z87.442 PERSONAL HISTORY OF URINARY CALCULI 12/07/2018 CRYSTAL SINGLETON MD Ot Z87.891 PERSONAL HISTORY OF NICOTINE DEPENDENCE 12/07/2018 CRYSTAL SINGLETON MD Ot Z88. 1 ALLERGY STATUS TO OTHER ANTIBIOTIC AGENT 12/07/2018 CRYSTAL SINGLETON MD Ot Z88. 2 ALLERGY STATUS TO SULFONAMIDES STATUS 12/07/2018 CRYSTAL SINGLETON MD Ot Z88. 5 ALLERGY STATUS TO NARCOTIC AGENT STATUS 12/07/2018 CRYSTAL SINGLETON MD Ot Z88. 8 ALLERGY STATUS TO OTH DRUG/MEDS/BIOL SUB 12/07/2018 CRYSTAL SINGLETON MD Ot Z90. 49 ACQUIRED ABSENCE OF OTHER SPECIFIED PART 12/07/2018 CRYSTAL SINGLETON MD Ot Z90.710 ACQUIRED ABSENCE OF BOTH CERVIX AND UTER 12/11/2018 CRYSTAL SINGLETON MD Ot E78. 00 PURE HYPERCHOLESTEROLEMIA, UNSPECIFIED 12/11/2018 CRYSTAL SINGLETON MD Ot F32. 9 MAJOR DEPRESSIVE DISORDER, SINGLE EPISOD 12/11/2018 CRYSTAL SINGLETON MD Ot F41. 9 ANXIETY DISORDER, UNSPECIFIED 12/11/2018 CRYSTAL SINGLETON MD Ot G43.909 MIGRAINE, UNSP, NOT INTRACTABLE, WITHOUT 12/11/2018 CRYSTAL SINGLETON MD Ot I10 ESSENTIAL (PRIMARY) HYPERTENSION 12/11/2018 CRYSTAL SINGLETON MD Ot J45.909 UNSPECIFIED ASTHMA, UNCOMPLICATED 12/11/2018 CRYSTAL SINGLETON MD Ot K59. 00 CONSTIPATION, UNSPECIFIED 12/11/2018 CRYSTAL SINGLETON MD Ot K62. 89 OTHER SPECIFIED DISEASES OF ANUS AND REC 12/11/2018 CRYSTAL SINGLETON MD Ot K64. 8 OTHER HEMORRHOIDS 12/11/2018 CRYSTAL SINGLETON MD Ot Z87.440 PERSONAL HISTORY OF URINARY (TRACT) INFE 12/11/2018 CRYSTAL SINGLETON MD Ot Z87.442 PERSONAL HISTORY OF URINARY CALCULI 12/11/2018 CRYSTAL SINGLETON MD Ot Z87.891 PERSONAL HISTORY OF NICOTINE DEPENDENCE 12/11/2018 CRYSTAL SINGLETON MD Ot Z88. 1 ALLERGY STATUS TO OTHER ANTIBIOTIC AGENT 12/11/2018 CRYSTAL SINGLETON MD Ot Z88. 2 ALLERGY STATUS TO SULFONAMIDES STATUS 12/11/2018 CRYSTAL SINGLETON MD Ot Z88. 5 ALLERGY STATUS TO NARCOTIC AGENT STATUS 12/11/2018 CRYSTAL SINGLETON MD Ot Z88. 8 ALLERGY STATUS TO OTH DRUG/MEDS/BIOL SUB 12/11/2018 CRYSTAL SINGLETON MD Ot Z90. 49 ACQUIRED ABSENCE OF OTHER SPECIFIED PART 12/11/2018 CRYSTAL SINGLETON MD Ot Z90.710 ACQUIRED ABSENCE OF BOTH CERVIX AND UTER 02/27/2019 SOCORRO KEATING APRN Ot E78.00 PURE HYPERCHOLESTEROLEMIA, UNSPECIFIED 02/27/2019 SOCORRO KEATING APRN Ot F32 .9 MAJOR DEPRESSIVE DISORDER, SINGLE EPISOD 02/27/2019 SOCORRO KEATING APRN Ot F41 .9 ANXIETY DISORDER, UNSPECIFIED 02/27/2019 SOCORRO KEATING APRN Ot G43.909 MIGRAINE, UNSP, NOT INTRACTABLE, WITHOUT 02/27/2019 KEATING, PETER J COMPLEX [employer] LITIGATION PARALEGAL Ot I10 ESSENTIAL (PRIMARY) HYPERTENSION 02/27/2019 SOCORRO KEATING COMPLEX [employer] LITIGATION PARALEGAL Ot J45.909 UNSPECIFIED ASTHMA, UNCOMPLICATED 02/27/2019 SOCORRO KEATING APRN Ot R07 .9 CHEST PAIN, UNSPECIFIED 02/27/2019 SOCORRO KEATING APRN Ot Z77.22 CNTCT W AND EXPSR TO ENVIRON TOBACCO SMO 02/27/2019 SOCORRO KEATING [employer] LITIGATION PARALEGAL Ot Z87.19 PERSONAL HISTORY OF OTHER DISEASES OF TH 02/27/2019 SOCORRO KEATING APRN Ot Z87.440 PERSONAL HISTORY OF URINARY (TRACT) INFE 02/27/2019 SOCORRO KEATING APRN Ot Z87.442 PERSONAL HISTORY OF URINARY CALCULI 02/27/2019 SOCORRO KEATING APRN Ot Z88 .1 ALLERGY STATUS TO OTHER ANTIBIOTIC AGENT 02/27/2019 SOCORRO KEATING APRN Ot Z88 .2 ALLERGY STATUS TO SULFONAMIDES STATUS 02/27/2019 SOCORRO KEATING APRN Ot Z88 .5 ALLERGY STATUS TO NARCOTIC AGENT STATUS Procedures Code [place] [address] UA W / CULTURE IF INDICATED 06/15/2012 16746 PSYC H IND W/MED CK 20 08/10/2012 08482 ROUT INE VENIPUNCTURE 10/30/2012 11146 BNP 10/30/2012 56440 CMP 10/30/2012 [id number] GF R CALC (RESULT ONLY) 10/30/2012 10804 H PY GALA (IN-HOUSE) 11/07/2012 36597 ROUT INE VENIPUNCTURE 03/08/2013 96469 A1C (IN-HOUSE) 03/08/2013 81363 ESR/ SED RATE 03/08/2013 06143 CBC 03/08/2013 31737 CRP 03/08/2013 90271 TSH 03/08/2013 10169 CPK 03/08/2013 70061 CMP 03/08/2013 2979069 GF R CALC (RESULT ONLY) 03/08/2013 ANAANA CALLUM ANALYZER (SCREEN) 03/09/2013 GRAVSPANL MYASTHENIA GRAVIS PANEL 03/18/2013 49984 UA W / CULTURE IF INDICATED 04/26/2013 01210 CULT URE URINE 04/26/2013 11177 ROUT INE VENIPUNCTURE 10/02/2013 34193 TRIC HOMONAS (IN-HOUSE) 10/02/2013 46259 SYPH ILLIS-[facility] 10/02/2013 36926 HIV ([facility]) 10/02/2013 81183 GC/C HLAM PROBE (STATE) 10/02/2013 83402 CULT URE UROGENITAL 10/03/2013 62827 UA W / CULTURE IF INDICATED 01/01/2014 80323 UA L FRANCIS DIP 02/17/2014 46322 ROUT INE VENIPUNCTURE 05/21/2014 94840 SED/ ESR RATE (IN HOUSE) 05/21/2014 25558 LIPI D PANEL 05/21/2014 69466 PSYC H DIAGNOSTIC EVALUATION 06/25/2014 58865 ROUT INE VENIPUNCTURE 06/26/2014 73534 EKG, TRACING (IN-HOUSE) 06/26/2014 21322 CMP 06/26/2014 96170 MAGNESIUM 06/26/2014 07128 TSH 06/26/2014 CARDIOLOG LIN POWERS 06/26/2014 07914 CBC 06/26/2014 82973 PSYT X PT&/FAMILY 45 MINUTES 07/28/2014 Results Test Result Range Complete blood count (CBC) with automate d white blood cell (WBC) differential - 01/27/16 14:53 Blood leukocytes automated count (number/volume) 6.5 10*3/uL 4.3-11.0 Blood erythrocytes automated count (number/volume) 3.94 10*6/uL 4.35-5.85 Venous blood hemoglobin measurement (mass/volume) 12.2 g/dL 11.5-16.0 Blood hematocrit (volume fraction) 36 % 35-52 Automated erythrocyte mean corpuscular volume 90 [ foz_us] 80-99 Automated erythrocyte mean corpuscular h emoglobin (mass per erythrocyte) 31 pg 25-34 Automated erythrocyte mean corpuscular h emoglobin concentration measurement (mass/volume) 34 g/dL 32-36 Automated erythrocyte distribution width ratio 12. 6 % 10.0- 14.5 Automated blood platelet count (count/volume) 301 10*3/uL [...] 10*3 1.0-4.0 Blood monocytes automated count (number/volume) 0. 4 10*3 0.0-1.0 Automated eosinophil count 0.0 10*3/uL 0 .0-0.3 Automated blood basophil count (count/volume) 0.0 10*3/uL 0.0-0.1 PT panel in platelet poor plasma by coag ulation assay - 01/27/16 14:53 Prothrombin time (PT) in platelet poor plasma by coagu lation assay 12.1 s 12.2-14.7 INR in platelet poor plasma or blood by coagulation as say 0.9 0.8-1.4 Activated partial thromboplastin time (a PTT) in platelet poor plasma bycoagulation assay - 01/27/16 14:53 Activated partial thromboplastin time (a PTT) in platelet poor plasma bycoagulation assay 28 s 24-35 Fibrin D-dimer FEU measurement in platel et poor plasma (mass/volume) - 01/27/16 14:53 Fibrin D-dimer FEU measurement in platelet poor plasma (mass/volume) 0.77 ug/mL 0.00-0.49 Serum or plasma lithium measurement (mol es/volume) - 01/27/16 14:53 BNP level < pg/mL <100.0 Comprehensive metabolic panel - 01/27/16 14:53 Serum or plasma sodium measurement (moles/volume) 135 mmol/L 135-145 Serum or plasma potassium measurement (moles/volume) 3.6 mmol/L 3.6-5.0 Serum or plasma chloride measurement (moles/volume) 103 mmol/L 98-107 Carbon dioxide 23 mmol/L 21-32 Serum or plasma anion gap determination (moles/volume) 9 mmol/L 5-14 Serum or plasma urea nitrogen measurement (mass/volume ) 8 mg/dL 7-18 Serum or plasma creatinine measurement (mass/volume) 0.64 mg/dL 0.60-1.30 Serum or plasma urea nitrogen/creatinine mass ratio 13 NRG Serum or plasma creatinine measurement w ith calculation of estimated glomerular filtration rate > NRG Serum or plasma glucose measurement (mass/volume) 127 mg/dL 70-105 Serum or plasma calcium measurement (mass/volume) 9.1 mg/dL 8.5-10.1 Serum or plasma total bilirubin measurement (mass/volu me) 0.3 mg/dL 0.1-1.0 Serum or plasma alkaline phosphatase kim surement (enzymatic activity/volume) 107 U/L 40-136 Serum or plasma aspartate aminotransfera se measurement (enzymatic activity/volume) 35 U/L 5-34 Serum or plasma alanine aminotransferase measurement (enzymatic activity/volume) 43 U/L 0-55 Serum or plasma protein measurement (mass/volume) 6.5 g/dL 6.4-8.2 Serum or plasma albumin measurement (mass/volume) 3.8 g/dL 3.2-4.5 Magnesium - 01/27/16 14:53 Magnesium 1.8 mg/dL 1.8-2.4 Serum or plasma troponin i.cardiac measu rement (mass/volume) - 01/27/16 14:53 Serum or plasma troponin i.cardiac measurement (mass/v olume) < ng/mL <0.30 Myoglobin, serum - 01/27/16 14:53 Myoglobin, serum 35.3 ng/mL 10.0-92.0 Complete blood count (CBC) with automate d white blood cell (WBC) differential - 03/01/16 15:35 Blood leukocytes automated count (number/volume) 13.5 10*3/uL 4.3-11.0 Blood erythrocytes automated count (number/volume) 4.62 10*6/uL 4.35-5.85 Venous blood hemoglobin measurement (mass/volume) 14.4 g/dL 11.5-16.0 Blood hematocrit (volume fraction) 41 % 35-52 Automated erythrocyte mean corpuscular volume 88 [ foz_us] 80-99 Automated erythrocyte mean corpuscular h emoglobin (mass per erythrocyte) 31 pg 25-34 Automated erythrocyte mean corpuscular h emoglobin concentration measurement (mass/volume) 35 g/dL 32-36 Automated erythrocyte distribution width ratio 12. 3 % 10.0- 14.5 Automated blood platelet count (count/volume) 357 10*3/uL [...] 10*3 1.0-4.0 Blood monocytes automated count (number/volume) 0. 3 10*3 0.0-1.0 Automated eosinophil count 0.0 10*3/uL 0 .0-0.3 Automated blood basophil count (count/volume) 0.0 10*3/uL 0.0-0.1 Blood manual differential performed dete ction - 03/01/16 15:35 Blood monocytes/100 leukocytes 0 [...] 5-14 Serum or plasma urea nitrogen measurement (mass/volume ) 20 mg/dL 7-18 Serum or plasma creatinine measurement (mass/volume) 0.87 mg/dL 0.60-1.30 Serum or plasma urea nitrogen/creatinine mass ratio 23 NRG Serum or plasma creatinine measurement w ith calculation of estimated glomerular filtration rate > NRG Serum or plasma glucose measurement (mass/volume) 131 mg/dL 70-105 Serum or plasma calcium measurement (mass/volume) 9.5 mg/dL 8.5-10.1 Serum or plasma total bilirubin measurement (mass/volu me) 0.4 mg/dL 0.1-1.0 Serum or plasma alkaline phosphatase kim surement (enzymatic activity/volume) 139 U/L 40-136 Serum or plasma aspartate aminotransfera se measurement (enzymatic activity/volume) 26 U/L 5-34 Serum or plasma alanine aminotransferase measurement (enzymatic activity/volume) 38 U/L 0-55 Serum or plasma protein measurement (mass/volume) 7.5 g/dL 6.4-8.2 Serum or plasma albumin measurement (mass/volume) 4.6 g/dL 3.2-4.5 Lipase - 03/01/16 15:35 Lipase 10 U/L 8-78 Complete urinalysis with reflex to cultu re - 03/01/16 16:24 Urine color determination YELLOW NRG Urine clarity determination CLEAR NR G Urine pH measurement by test strip 8 5-9 Specific gravity of urine by test strip 1.010 1.016-1.022 Urine protein assay by test strip, semi-quantitative NEGATIVE NEGATIVE Urine glucose detection by automated test strip NE GATIVE NEGATIVE Erythrocytes detection in urine sediment by light micr oscopy NEGATIVE NEGATIVE Urine ketones detection by automated test strip 4+ NEGATIVE Urine nitrite detection by test strip NEGATIVE NEGATIVE Urine total bilirubin detection by test strip NEGA TIVE NEGATIVE Urine urobilinogen measurement by automated test strip (mass/volume) NORMAL NORMAL Urine leukocyte esterase detection by dipstick NEG ATIVE NEGATIVE Automated urine sediment erythrocyte cou nt by microscopy (number/high power field) NONE NRG Automated urine sediment leukocyte count by microscopy (number/high power field) NONE NRG Bacteria detection in urine sediment by light microsco py NONE NRG Squamous epithelial cells detection in u rine sediment by light microscopy 5-10 NRG Crystals detection in urine sediment by light microsco py NONE NRG Casts detection in urine sediment by light microscopy NONE NRG Mucus detection in urine sediment by light microscopy SMALL NRG Complete urinalysis with reflex to culture NO NRG Complete urinalysis with reflex to cultu re - 09/11/16 10:30 Urine color determination YELLOW NRG Urine clarity determination SLIGHTLY CLOUDY NRG Urine pH measurement by test strip 5 5-9 Specific gravity of urine by test strip 1.020 1.016-1.022 Urine protein assay by test strip, semi-quantitative 2+ NEGATIVE Urine glucose detection by automated test strip NE GATIVE NEGATIVE Erythrocytes detection in urine sediment by light micr oscopy NEGATIVE NEGATIVE Urine ketones detection by automated test strip NE GATIVE NEGATIVE Urine nitrite detection by test strip NEGATIVE NEGATIVE Urine total bilirubin detection by test strip NEGA TIVE NEGATIVE Urine urobilinogen measurement by automated test strip (mass/volume) NORMAL NORMAL Urine leukocyte esterase detection by dipstick 1+ NEGATIVE Automated urine sediment erythrocyte cou nt by microscopy (number/high power field) NONE NRG Automated urine sediment leukocyte count by microscopy (number/high power field) [HPF] NRG Bacteria detection in urine sediment by light microsco py NEGATIVE NRG Squamous epithelial cells detection in u rine sediment by light microscopy >50 NRG Crystals detection in urine sediment by light microsco py NONE NRG Casts detection in urine sediment [...] 5-14 Serum or plasma urea nitrogen measurement (mass/volume ) 37 mg/dL 7-18 Serum or plasma creatinine measurement (mass/volume) 3.77 mg/dL 0.60-1.30 Serum or plasma urea nitrogen/creatinine mass ratio 10 NRG Serum or plasma creatinine measurement w ith calculation of estimated glomerular filtration rate 13 NRG Serum or plasma glucose measurement (mass/volume) 85 mg/dL 70-105 Serum or plasma calcium measurement (mass/volume) 9.3 mg/dL 8.5-10.1 Serum or plasma total bilirubin measurement (mass/volu me) 0.3 mg/dL 0.1-1.0 Serum or plasma alkaline phosphatase kim surement (enzymatic activity/volume) 139 U/L 40-136 Serum or plasma aspartate aminotransfera se measurement (enzymatic activity/volume) 24 U/L 5-34 Serum or plasma alanine aminotransferase measurement (enzymatic activity/volume) 28 U/L 0-55 Serum or plasma protein measurement (mass/volume) 7.8 g/dL 6.4-8.2 Serum or plasma albumin measurement (mass/volume) 4.6 g/dL 3.2-4.5 Magnesium - 09/11/16 10:55 Magnesium 2.6 mg/dL 1.8-2.4 Serum or plasma troponin i.cardiac measu rement (mass/volume) - 09/11/16 10:55 Serum or plasma troponin i.cardiac measurement (mass/v olume) < ng/mL <0.30 Urine beta human chorionic gonadotropin (hCG) measurement - 09/25/16 21:40 Urine beta human chorionic gonadotropin (hCG) measurem ent NEGATIVE NEGATIVE Complete urinalysis with reflex to cultu re - 09/25/16 21:40 Urine color determination YELLOW NRG Urine clarity determination SLIGHTLY CLOUDY NRG Urine pH measurement by test strip 6 5-9 Specific gravity of urine by test strip 1.030 1.016-1.022 Urine protein assay by test strip, semi-quantitative 2+ NEGATIVE Urine glucose detection by automated test strip NE GATIVE NEGATIVE Erythrocytes detection in urine sediment by light micr oscopy NEGATIVE NEGATIVE Urine ketones detection by automated test strip NE GATIVE NEGATIVE Urine nitrite detection by test strip NEGATIVE NEGATIVE Urine total bilirubin detection by test strip NEGA TIVE NEGATIVE Urine urobilinogen measurement by automated test strip (mass/volume) NORMAL NORMAL Urine leukocyte esterase detection by dipstick 1+ NEGATIVE Automated urine sediment erythrocyte cou nt by microscopy (number/high power field) NONE NRG Automated urine sediment leukocyte count by microscopy (number/high power field) [HPF] NRG Bacteria detection in urine sediment by light microsco py LARGE NRG Squamous epithelial cells detection in u rine sediment by light microscopy >50 NRG Crystals detection in urine sediment by light microsco py NONE NRG Casts detection in urine sediment by light microscopy PRESENT NRG Mucus detection in urine sediment by light microscopy NEGATIVE NRG Complete urinalysis with reflex to culture NO NRG Hyaline casts detection in urine sediment by light krysta roscopy RARE NRG Renal epithelial cells detection in urin e sediment by light microscopy NONE NRG Complete blood count (CBC) with automate d white blood cell (WBC) differential - 09/25/16 22:03 Blood leukocytes automated count (number/volume) 6.9 10*3/uL 4.3-11.0 Blood erythrocytes automated count (number/volume) 3.87 10*6/uL 4.35-5.85 Venous blood hemoglobin measurement (mass/volume) 11.9 g/dL 11.5-16.0 Blood hematocrit (volume fraction) 35 % 35-52 Automated erythrocyte mean corpuscular volume 91 [ foz_us] 80-99 Automated erythrocyte mean corpuscular h emoglobin (mass per erythrocyte) 31 pg 25-34 Automated erythrocyte mean corpuscular h emoglobin concentration measurement (mass/volume) 34 g/dL 32-36 Automated erythrocyte distribution width ratio 13. 4 % 10.0- 14.5 Automated blood platelet count (count/volume) 296 10*3/uL [...] 10*3 1.0-4.0 Blood monocytes automated count (number/volume) 0. 6 10*3 0.0-1.0 Automated eosinophil count 0.0 10*3/uL 0 .0-0.3 Automated blood basophil count (count/volume) 0.0 10*3/uL 0.0-0.1 Capillary blood glucose measurement by g lucometer (mass/volume) - 09/25/16 22:03 Capillary blood glucose measurement by glucometer (mas s/volume) 99 mg/dL 70-110 Comprehensive metabolic panel - 09/25/16 22:03 Serum or plasma sodium measurement (moles/volume) 139 mmol/L 135-145 Serum or plasma potassium measurement (moles/volume) 3.4 mmol/L 3.6-5.0 Serum or plasma chloride measurement (moles/volume) 107 mmol/L 98-107 Carbon dioxide 22 mmol/L 21-32 Serum or plasma anion gap determination (moles/volume) 10 mmol/L 5-14 Serum or plasma urea nitrogen measurement (mass/volume ) 20 mg/dL 7-18 Serum or plasma creatinine measurement (mass/volume) 1.28 mg/dL 0.60-1.30 Serum or plasma urea nitrogen/creatinine mass ratio 16 NRG Serum or plasma creatinine measurement w ith calculation of estimated glomerular filtration rate 47 NRG Serum or plasma glucose measurement (mass/volume) 95 mg/dL 70-105 Serum or plasma calcium measurement (mass/volume) 9.0 mg/dL 8.5-10.1 Serum or plasma total bilirubin measurement (mass/volu me) 0.2 mg/dL 0.1-1.0 Serum or plasma alkaline phosphatase kim surement (enzymatic activity/volume) 118 U/L 40-136 Serum or plasma aspartate aminotransfera se measurement (enzymatic activity/volume) 15 U/L 5-34 Serum or plasma alanine aminotransferase measurement (enzymatic activity/volume) 23 U/L 0-55 Serum or plasma protein measurement (mass/volume) 6.9 g/dL 6.4-8.2 Serum or plasma albumin measurement (mass/volume) 4.1 g/dL 3.2-4.5 Complete blood count (CBC) with automate d white blood cell (WBC) differential - 12/06/16 20:50 Blood leukocytes automated count (number/volume) 13.6 10*3/uL 4.3-11.0 Blood erythrocytes automated count (number/volume) 4.43 10*6/uL 4.35-5.85 Venous blood hemoglobin measurement (mass/volume) 13.8 g/dL 11.5-16.0 Blood hematocrit (volume fraction) 40 % 35-52 Automated erythrocyte mean corpuscular volume 90 [ foz_us] 80-99 Automated erythrocyte mean corpuscular h emoglobin (mass per erythrocyte) 31 pg 25-34 Automated erythrocyte mean corpuscular h emoglobin concentration measurement (mass/volume) 35 g/dL 32-36 Automated erythrocyte distribution width ratio 12. 9 % 10.0- 14.5 Automated blood platelet count (count/volume) 377 10*3/uL [...] 10*3 1.0-4.0 Blood monocytes automated count (number/volume) 1. 4 10*3 0.0-1.0 Automated eosinophil count 0.0 10*3/uL 0 .0-0.3 Automated blood basophil count (count/volume) 0.0 10*3/uL 0.0-0.1 Comprehensive metabolic panel - 12/06/16 20:50 Serum or plasma sodium measurement (moles/volume) 135 mmol/L 135-145 Serum or plasma potassium measurement (moles/volume) 3.8 mmol/L 3.6-5.0 Serum or plasma chloride measurement (moles/volume) 101 mmol/L 98-107 Carbon dioxide 19 mmol/L 21-32 Serum or plasma anion gap determination (moles/volume) 15 mmol/L 5-14 Serum or plasma urea nitrogen measurement (mass/volume ) 20 mg/dL 7-18 Serum or plasma creatinine measurement (mass/volume) 2.02 mg/dL 0.60-1.30 Serum or plasma urea nitrogen/creatinine mass ratio 10 NRG Serum or plasma creatinine measurement w ith calculation of estimated glomerular filtration rate 28 NRG Serum or plasma glucose measurement (mass/volume) 82 mg/dL 70-105 Serum or plasma calcium measurement (mass/volume) 9.7 mg/dL 8.5-10.1 Serum or plasma total bilirubin measurement (mass/volu me) 0.3 mg/dL 0.1-1.0 Serum or plasma alkaline phosphatase kim surement (enzymatic activity/volume) 129 U/L 40-136 Serum or plasma aspartate aminotransfera se measurement (enzymatic activity/volume) 22 U/L 5-34 Serum or plasma alanine aminotransferase measurement (enzymatic activity/volume) 26 U/L 0-55 Serum or plasma protein measurement (mass/volume) 8.3 g/dL 6.4-8.2 Serum or plasma albumin measurement (mass/volume) 4.9 g/dL 3.2-4.5 Magnesium - 12/06/16 20:50 Magnesium 2.4 mg/dL 1.8-2.4 Serum or plasma amylase measurement (enz ymatic activity/volume) - 12/06/16 20:50 Serum or plasma amylase measurement (enzymatic activit y/volume) 59 U/L 25-125 Lipase - 12/06/16 20:50 Lipase 25 U/L 8-78 Complete urinalysis with reflex to cultu re - 12/06/16 21:42 Urine color determination YELLOW NRG Urine clarity determination SLIGHTLY CLOUDY NRG Urine pH measurement by test strip 6 5-9 Specific gravity of urine by test strip 1.010 1.016-1.022 Urine protein assay by test strip, semi-quantitative 2+ NEGATIVE Urine glucose detection by automated test strip NE GATIVE NEGATIVE Erythrocytes detection in urine sediment by light micr oscopy NEGATIVE NEGATIVE Urine ketones detection by automated test strip NE GATIVE NEGATIVE Urine nitrite detection by test strip NEGATIVE NEGATIVE Urine total bilirubin detection by test strip NEGA TIVE NEGATIVE Urine urobilinogen measurement by automated test strip (mass/volume) NORMAL NORMAL Urine leukocyte esterase detection by dipstick 2+ NEGATIVE Automated urine sediment erythrocyte cou nt by microscopy (number/high power field) none NRG Automated urine sediment leukocyte count by microscopy (number/high power field) [HPF] NRG Bacteria detection in urine sediment by light microsco py MODERATE NRG Squamous epithelial cells detection in u rine sediment by light microscopy >50 NRG Crystals detection in urine sediment by light microsco py NONE NRG Casts detection in urine sediment by light microscopy NONE NRG Mucus detection in urine sediment by light microscopy MODERATE NRG Complete urinalysis with reflex to culture YES NRG Urine drug screening test - 12/06/16 21: 42 Urine phencyclidine detection by screening method NEGATIVE NEGATIVE Urine benzodiazepines detection by screening method POSITIVE NEGATIVE Urine cocaine detection NEGATIVE NEGATI VE Urine amphetamines detection by screening method N EGATIVE NEGATIVE Urine methamphetamine detection by screening method NEGATIVE NEGATIVE Urine cannabinoids detection by screening method N EGATIVE NEGATIVE Urine opiates detection by screening method NEGATI VE NEGATIVE Urine barbiturates detection NEGATIVE N EGATIVE Screening urine tricyclic antidepressants detection POSITIVE NEGATIVE Urine methadone detection by screening method NEGA TIVE NEGATIVE Urine oxycodone detection NEGATIVE NEGA TIVE Urine propoxyphene detection NEGATIVE N EGATIVE Bacterial urine culture - 12/06/16 21:42 Bacterial urine culture [id number] NRG COLONY COUNT 10,000/ML - 100,000/ML NRG FTX;REPORTABLE SENSITIVITY REPORTED AT 0830, NRG URINE CULTURE RESULTS PLUS NRG Bacterial susceptibility panel - 7 21:42 Gentamicin susceptibility test by minimum inhibitory c oncentration <= NRG Trimethoprim/sulfamethoxazole susceptibi lity test by minimum inhibitoryconcentration <= NRG Ampicillin susceptibility test by minimum inhibitory c oncentration 8 NRG Tobramycin susceptibility test by minimum inhibitory c oncentration <= NRG Cefazolin susceptibility test by minimum inhibitory co ncentration <= NRG Ceftriaxone susceptibility test by minimum inhibitory concentration <= NRG Ampicillin/sulbactam susceptibility test by minimum inhibitory concentration 4 NRG Piperacillin/tazobactam susceptibility t est by minimum inhibitory concentration <= NRG Ciprofloxacin susceptibility test by minimum inhibitor y concentration <= NRG Meropenem susceptibility test by minimum inhibitory co ncentration <= NRG Nitrofurantoin susceptibility test by mi nimum inhibitory concentration <= NRG Aztreonam susceptibility test by minimum inhibitory co ncentration <= NRG Extended spectrum beta lactamase (ESBL) producing bacteria susceptibility test by minimum inhibitory concentration - NRG Complete urinalysis with reflex to cultu re - 12/21/16 13:17 Urine color determination YELLOW NRG Urine clarity determination VERY CLOUDY NRG Urine pH measurement by test strip 6 5-9 Specific gravity of urine by test strip 1.015 1.016-1.022 Urine protein assay by test strip, semi-quantitative 2+ NEGATIVE Urine glucose detection by automated test strip NE GATIVE NEGATIVE Erythrocytes detection in urine sediment by light micr oscopy NEGATIVE NEGATIVE Urine ketones detection by automated test strip NE GATIVE NEGATIVE Urine nitrite detection by test strip NEGATIVE NEGATIVE Urine total bilirubin detection by test strip NEGA TIVE NEGATIVE Urine urobilinogen measurement by automated test strip (mass/volume) 1 mg/dL NORMAL Urine leukocyte esterase detection by dipstick 1+ NEGATIVE Automated urine sediment erythrocyte cou nt by microscopy (number/high power field) NONE NRG Automated urine sediment leukocyte count by microscopy (number/high power field) [HPF] NRG Bacteria detection in urine sediment by light microsco py LARGE NRG Squamous epithelial cells detection in u rine sediment by light microscopy TNTC NRG Crystals detection in urine sediment by light microsco py NONE NRG Casts detection in urine sediment by light microscopy NONE NRG Mucus detection in urine sediment by light microscopy NEGATIVE NRG Complete urinalysis with reflex to culture NO NRG Complete urinalysis with reflex to cultu re - 12/28/16 17:00 Urine color determination YELLOW NRG Urine clarity determination CLEAR NR G Urine pH measurement by test strip 6 5-9 Specific gravity of urine by test strip 1.010 1.016-1.022 Urine protein assay by test strip, semi-quantitative NEGATIVE NEGATIVE Urine glucose detection by automated test strip NE GATIVE NEGATIVE Erythrocytes detection in urine sediment by light micr oscopy NEGATIVE NEGATIVE Urine ketones detection by automated test strip NE GATIVE NEGATIVE Urine nitrite detection by test strip NEGATIVE NEGATIVE Urine total bilirubin detection by test strip NEGA TIVE NEGATIVE Urine urobilinogen measurement by automated test strip (mass/volume) NORMAL NORMAL Urine leukocyte esterase detection by dipstick 1+ NEGATIVE Automated urine sediment erythrocyte cou nt by microscopy (number/high power field) NONE NRG Automated urine sediment leukocyte count by microscopy (number/high power field) [HPF] NRG Bacteria detection in urine sediment by light microsco py FEW NRG Squamous epithelial cells detection in u rine sediment by light microscopy 10-25 NRG Crystals detection in urine sediment by light microsco py NONE NRG Casts detection in urine sediment by light microscopy NONE NRG Mucus detection in urine sediment by light microscopy NEGATIVE NRG Complete urinalysis with reflex to culture YES NRG Bacterial urine culture - 12/28/16 17:00 Bacterial urine culture [id number] NRG COLONY COUNT 10,000/ML - 100,000/ML NRG FREE TEXT ENTRY 2 MIXED GRAM POSITIVE ANURAG NRG Urine drug screening test - 04/10/17 19: 58 Urine phencyclidine detection by screening method NEGATIVE NEGATIVE Urine benzodiazepines detection by screening method POSITIVE NEGATIVE Urine cocaine detection NEGATIVE NEGATI VE Urine amphetamines detection by screening method N EGATIVE NEGATIVE Urine methamphetamine detection by screening method NEGATIVE NEGATIVE Urine cannabinoids detection by screening method N EGATIVE NEGATIVE Urine opiates detection by screening method NEGATI VE NEGATIVE Urine barbiturates detection NEGATIVE N EGATIVE Screening urine tricyclic antidepressants detection POSITIVE NEGATIVE Urine methadone detection by screening method NEGA TIVE NEGATIVE Urine oxycodone detection NEGATIVE NEGA TIVE Urine propoxyphene detection NEGATIVE N EGATIVE Complete urinalysis with reflex to cultu re - 04/10/17 19:58 Urine color determination YELLOW NRG Urine clarity determination CLEAR NR G Urine pH measurement by test strip 6 5-9 Specific gravity of urine by test strip 1.010 1.016-1.022 Urine protein assay by test strip, semi-quantitative NEGATIVE NEGATIVE Urine glucose detection by automated test strip NE GATIVE NEGATIVE Erythrocytes detection in urine sediment by light micr oscopy NEGATIVE NEGATIVE Urine ketones detection by automated test strip NE GATIVE NEGATIVE Urine nitrite detection by test strip NEGATIVE NEGATIVE Urine total bilirubin detection by test strip NEGA TIVE NEGATIVE Urine urobilinogen measurement by automated test strip (mass/volume) NORMAL NORMAL Urine leukocyte esterase detection by dipstick 1+ NEGATIVE Automated urine sediment erythrocyte cou nt by microscopy (number/high power field) NONE NRG Automated urine sediment leukocyte count by microscopy (number/high power field) [HPF] NRG Bacteria detection in urine sediment by light microsco py NONE NRG Squamous epithelial cells detection in u rine sediment by light microscopy 5-10 NRG Crystals detection in urine sediment by light microsco py NONE NRG Casts detection in urine sediment by light microscopy NONE NRG Mucus detection in urine sediment by light microscopy SMALL NRG Complete urinalysis with reflex to culture NO NRG Complete blood count (CBC) with automate d white blood cell (WBC) differential - 04/10/17 20:21 Blood leukocytes automated count (number/volume) 8.2 10*3/uL 4.3-11.0 Blood erythrocytes automated count (number/volume) 4.41 10*6/uL 4.35-5.85 Venous blood hemoglobin measurement (mass/volume) 13.9 g/dL 11.5-16.0 Blood hematocrit (volume fraction) 40 % 35-52 Automated erythrocyte mean corpuscular volume 90 [ foz_us] 80-99 Automated erythrocyte mean corpuscular h emoglobin (mass per erythrocyte) 32 pg 25-34 Automated erythrocyte mean corpuscular h emoglobin concentration measurement (mass/volume) 35 g/dL 32-36 Automated erythrocyte distribution width ratio 12. 3 % 10.0- 14.5 Automated blood platelet count (count/volume) 316 10*3/uL [...] 10*3 1.0-4.0 Blood monocytes automated count (number/volume) 0. 4 10*3 0.0-1.0 Automated eosinophil count 0.0 10*3/uL 0 .0-0.3 Automated blood basophil count (count/volume) 0.0 10*3/uL 0.0-0.1 Comprehensive metabolic panel - 04/10/17 20:21 Serum or plasma sodium measurement (moles/volume) 137 mmol/L 135-145 Serum or plasma potassium measurement (moles/volume) 3.6 mmol/L 3.6-5.0 Serum or plasma chloride measurement (moles/volume) 101 mmol/L 98-107 Carbon dioxide 24 mmol/L 21-32 Serum or plasma anion gap determination (moles/volume) 12 mmol/L 5-14 Serum or plasma urea nitrogen measurement (mass/volume ) 10 mg/dL 7-18 Serum or plasma creatinine measurement (mass/volume) 0.79 mg/dL 0.60-1.30 Serum or plasma urea nitrogen/creatinine mass ratio 13 NRG Serum or plasma creatinine measurement w ith calculation of estimated glomerular filtration rate > NRG Serum or plasma glucose measurement (mass/volume) 82 mg/dL 70-105 Serum or plasma calcium measurement (mass/volume) 9.9 mg/dL 8.5-10.1 Serum or plasma total bilirubin measurement (mass/volu me) 0.3 mg/dL 0.1-1.0 Serum or plasma alkaline phosphatase kim surement (enzymatic activity/volume) 132 U/L 40-136 Serum or plasma aspartate aminotransfera se measurement (enzymatic activity/volume) 23 U/L 5-34 Serum or plasma alanine aminotransferase measurement (enzymatic activity/volume) 32 U/L 0-55 Serum or plasma protein measurement (mass/volume) 8.2 g/dL 6.4-8.2 Serum or plasma albumin measurement (mass/volume) 4.6 g/dL 3.2-4.5 Magnesium - 04/10/17 20:21 Magnesium 2.0 mg/dL 1.8-2.4 Serum or plasma C reactive protein measu rement (mass/volume) - 04/10/17 20:21 Serum or plasma C reactive protein measurement (mass/v olume) 0.56 mg/dL 0.00-0.50 Complete urinalysis with reflex to cultu re - 10/15/17 01:20 Urine color determination YELLOW NRG Urine clarity determination CLEAR NR G Urine pH measurement by test strip 6 5-9 Specific gravity of urine by test strip 1.020 1.016-1.022 Urine protein assay by test strip, semi-quantitative 1+ NEGATIVE Urine glucose detection by automated test strip NE GATIVE NEGATIVE Erythrocytes detection in urine sediment by light micr oscopy NEGATIVE NEGATIVE Urine ketones detection by automated test strip NE GATIVE NEGATIVE Urine nitrite detection by test strip NEGATIVE NEGATIVE Urine total bilirubin detection by test strip NEGA TIVE NEGATIVE Urine urobilinogen measurement by automated test strip (mass/volume) NORMAL NORMAL Urine leukocyte esterase detection by dipstick 1+ NEGATIVE Automated urine sediment erythrocyte cou nt by microscopy (number/high power field) NONE NRG Automated urine sediment leukocyte count by microscopy (number/high power field) RARE NRG Bacteria detection in urine sediment by light microsco py TRACE NRG Squamous epithelial cells detection in u rine sediment by light microscopy 25-50 NRG Crystals detection in urine sediment by light microsco py NONE NRG Casts detection in urine sediment by light microscopy NONE NRG Mucus detection in urine sediment by light microscopy MODERATE NRG Complete urinalysis with reflex to culture NO NRG Complete blood count (CBC) with automate d white blood cell (WBC) differential - 10/15/17 01:45 Blood leukocytes automated count (number/volume) 7.7 10*3/uL 4.3-11.0 Blood erythrocytes automated count (number/volume) 3.91 10*6/uL 4.35-5.85 Venous blood hemoglobin measurement (mass/volume) 12.5 g/dL 11.5-16.0 Blood hematocrit (volume fraction) 35 % 35-52 Automated erythrocyte mean corpuscular volume 91 [ foz_us] 80-99 Automated erythrocyte mean corpuscular h emoglobin (mass per erythrocyte) 32 pg 25-34 Automated erythrocyte mean corpuscular h emoglobin concentration measurement (mass/volume) 35 g/dL 32-36 Automated erythrocyte distribution width ratio 12. 9 % 10.0- 14.5 Automated blood platelet count (count/volume) 327 10*3/uL [...] 10*3 1.0-4.0 Blood monocytes automated count (number/volume) 0. 9 10*3 0.0-1.0 Automated eosinophil count 0.0 10*3/uL 0 .0-0.3 Automated blood basophil count (count/volume) 0.0 10*3/uL 0.0-0.1 Comprehensive metabolic panel - 10/15/17 01:45 Serum or plasma sodium measurement (moles/volume) 138 mmol/L 135-145 Serum or plasma potassium measurement (moles/volume) 3.5 mmol/L 3.6-5.0 Serum or plasma chloride measurement (moles/volume) 106 mmol/L 98-107 Carbon dioxide 20 mmol/L 21-32 Serum or plasma anion gap determination (moles/volume) 12 mmol/L 5-14 Serum or plasma urea nitrogen measurement (mass/volume ) 11 mg/dL 7-18 Serum or plasma creatinine measurement (mass/volume) 0.74 mg/dL 0.60-1.30 Serum or plasma urea nitrogen/creatinine mass ratio 15 NRG Serum or plasma creatinine measurement w ith calculation of estimated glomerular filtration rate > NRG Serum or plasma glucose measurement (mass/volume) 91 mg/dL 70-105 Serum or plasma calcium measurement (mass/volume) 9.2 mg/dL 8.5-10.1 Serum or plasma total bilirubin measurement (mass/volu me) 0.2 mg/dL 0.1-1.0 Serum or plasma alkaline phosphatase kim surement (enzymatic activity/volume) 104 U/L 40-136 Serum or plasma aspartate aminotransfera se measurement (enzymatic activity/volume) 17 U/L 5-34 Serum or plasma alanine aminotransferase measurement (enzymatic activity/volume) 18 U/L 0-55 Serum or plasma protein measurement (mass/volume) 7.0 g/dL 6.4-8.2 Serum or plasma albumin measurement (mass/volume) 4.3 g/dL 3.2-4.5 Serum or plasma amylase measurement (enz ymatic activity/volume) - 10/15/17 01:45 Serum or plasma amylase measurement (enzymatic activit y/volume) 49 U/L 25-125 Lipase - 10/15/17 01:45 Lipase 113 U/L 8-78 Complete blood count (CBC) with automate d white blood cell (WBC) differential - 08/19/18 09:24 Blood leukocytes automated count (number/volume) 11.7 10*3/uL 4.3-11.0 Blood erythrocytes automated count (number/volume) 4.68 10*6/uL 4.35-5.85 Venous blood hemoglobin measurement (mass/volume) 14.7 g/dL 11.5-16.0 Blood hematocrit (volume fraction) 42 % 35-52 Automated erythrocyte mean corpuscular volume 89 [ foz_us] 80-99 Automated erythrocyte mean corpuscular h emoglobin (mass per erythrocyte) 31 pg 25-34 Automated erythrocyte mean corpuscular h emoglobin concentration measurement (mass/volume) 35 g/dL 32-36 Automated erythrocyte distribution width ratio 12. 2 % 10.0- 14.5 Automated blood platelet count (count/volume) 360 10*3/uL 130-400 Automated blood platelet mean volume measurement 9.3 [foz_us] 7.4-10.4 Automated blood neutrophils/100 leukocytes 90 % 42-75 Automated blood lymphocytes/100 leukocytes 6 % 12-44 Blood monocytes/100 leukocytes 3 % 0-12 Automated blood eosinophils/100 leukocytes 1 % 0-10 Automated blood basophils/100 leukocytes 0 % 0-10 Blood neutrophils automated count (number/volume) 10.6 10*3 1.8-7.8 Blood lymphocytes automated count (number/volume) 0.7 10*3 1.0-4.0 Blood monocytes automated count (number/volume) 0. 4 10*3 0.0-1.0 Automated eosinophil count 0.1 10*3/uL 0 .0-0.3 Automated blood basophil count (count/volume) 0.0 10*3/uL 0.0-0.1 Comprehensive metabolic panel - 08/19/18 09:24 Serum or plasma sodium measurement (moles/volume) 135 mmol/L 135-145 Serum or plasma potassium measurement (moles/volume) 4.3 mmol/L 3.6-5.0 Serum or plasma chloride measurement (moles/volume) 99 mmol/L 98-107 Carbon dioxide 16 mmol/L 21-32 Serum or plasma anion gap determination (moles/volume) 20 mmol/L 5-14 Serum or plasma urea nitrogen measurement (mass/volume ) 16 mg/dL 7-18 Serum or plasma creatinine measurement (mass/volume) 0.59 mg/dL 0.60-1.30 Serum or plasma urea nitrogen/creatinine mass ratio 27 NRG Serum or plasma creatinine measurement w ith calculation of estimated glomerular filtration rate > NRG Serum or plasma glucose measurement (mass/volume) 129 mg/dL 70-105 Serum or plasma calcium measurement (mass/volume) 8.9 mg/dL 8.5-10.1 Serum or plasma total bilirubin measurement (mass/volu me) 0.4 mg/dL 0.1-1.0 Serum or plasma alkaline phosphatase kim surement (enzymatic activity/volume) 114 U/L 40-136 Serum or plasma aspartate aminotransfera se measurement (enzymatic activity/volume) 26 U/L 5-34 Serum or plasma alanine aminotransferase measurement (enzymatic activity/volume) 30 U/L 0-55 Serum or plasma protein measurement (mass/volume) 8.0 g/dL 6.4-8.2 Serum or plasma albumin measurement (mass/volume) 4.5 g/dL 3.2-4.5 CALCIUM CORRECTED 8.5 mg/dL 8.5-10.1 Lipase - 08/19/18 09:24 Lipase 12 U/L 8-78 Blood manual differential performed dete ction - 08/19/18 09:24 Blood monocytes/100 leukocytes 5 % NRG Manual blood segmented neutrophils/100 leukocytes 78 % NRG Blood band neutrophils/100 leukocytes 10 % NRG Manual blood lymphocytes/100 leukocytes 5 % NRG Manual blood lymphocytes variant/100 leukocytes 2 % NRG Complete blood count (CBC) with automate d white blood cell (WBC) differential - 02/24/19 16:26 Blood leukocytes automated count (number/volume) 10.2 10*3/uL 4.3-11.0 Blood erythrocytes automated count (number/volume) 4.44 10*6/uL 4.35-5.85 Venous blood hemoglobin measurement (mass/volume) 13.7 g/dL 11.5-16.0 Blood hematocrit (volume fraction) 40 % 35-52 Automated erythrocyte mean corpuscular volume 89 [ foz_us] 80-99 Automated erythrocyte mean corpuscular h emoglobin (mass per erythrocyte) 31 pg 25-34 Automated erythrocyte mean corpuscular h emoglobin concentration measurement (mass/volume) 35 g/dL 32-36 Automated erythrocyte distribution width ratio 13. 0 % 10.0- 14.5 Automated blood platelet count (count/volume) 415 10*3/uL 130-400 Automated blood platelet mean volume measurement 9.4 [foz_us] 7.4-10.4 Automated blood neutrophils/100 leukocytes 57 % 42-75 Automated blood lymphocytes/100 leukocytes 33 % 12-44 Blood monocytes/100 leukocytes 9 % 0-12 Automated blood eosinophils/100 leukocytes 1 % 0-10 Automated blood basophils/100 leukocytes 0 % 0-10 Blood neutrophils automated count (number/volume) 5.8 10*3 1.8-7.8 Blood lymphocytes automated count (number/volume) 3.4 10*3 1.0-4.0 Blood monocytes automated count (number/volume) 0. 9 10*3 0.0-1.0 Automated eosinophil count 0.1 10*3/uL 0 .0-0.3 Automated blood basophil count (count/volume) 0.0 10*3/uL 0.0-0.1 Comprehensive metabolic panel - 02/24/19 16:26 Serum or plasma sodium measurement (moles/volume) 135 mmol/L 135-145 Serum or plasma potassium measurement (moles/volume) 3.8 mmol/L 3.6-5.0 Serum or plasma chloride measurement (moles/volume) 105 mmol/L 98-107 Carbon dioxide 18 mmol/L 21-32 Serum or plasma anion gap determination (moles/volume) 12 mmol/L 5-14 Serum or plasma urea nitrogen measurement (mass/volume ) 9 mg/dL 7-18 Serum or plasma creatinine measurement (mass/volume) 0.98 mg/dL 0.60-1.30 Serum or plasma urea nitrogen/creatinine mass ratio 9 NRG Serum or plasma creatinine measurement w ith calculation of estimated glomerular filtration rate > NRG Serum or plasma glucose measurement (mass/volume) 103 mg/dL 70-105 Serum or plasma calcium measurement (mass/volume) 9.1 mg/dL 8.5-10.1 Serum or plasma total bilirubin measurement (mass/volu me) 0.3 mg/dL 0.1-1.0 Serum or plasma alkaline phosphatase kim surement (enzymatic activity/volume) 123 U/L 40-136 Serum or plasma aspartate aminotransfera se measurement (enzymatic activity/volume) 18 U/L 5-34 Serum or plasma alanine aminotransferase measurement (enzymatic activity/volume) 20 U/L 0-55 Serum or plasma protein measurement (mass/volume) 8.2 g/dL 6.4-8.2 Serum or plasma albumin measurement (mass/volume) 4.6 g/dL 3.2-4.5 Serum or plasma troponin i.cardiac measu rement (mass/volume) - 02/24/19 16:26 Serum or plasma troponin i.cardiac measurement (mass/v olume) < ng/mL <0.028 Lipase - 02/24/19 16:26 Lipase 15 U/L 8-78 Complete blood count (CBC) with automate d white blood cell (WBC) differential - 05/15/19 18:50 Blood leukocytes automated count (number/volume) 6.7 10*3/uL 4.3-11.0 Blood erythrocytes automated count (number/volume) 3.89 10*6/uL 4.35-5.85 Venous blood hemoglobin measurement (mass/volume) 12.0 g/dL 11.5-16.0 Blood hematocrit (volume fraction) 35 % 35-52 Automated erythrocyte mean corpuscular volume 90 [ foz_us] 80-99 Automated erythrocyte mean corpuscular h emoglobin (mass per erythrocyte) 31 pg 25-34 Automated erythrocyte mean corpuscular h emoglobin concentration measurement (mass/volume) 35 g/dL 32-36 Automated erythrocyte distribution width ratio 12. 5 % 10.0- 14.5 Automated blood platelet count (count/volume) 308 10*3/uL 130-400 Automated blood platelet mean volume measurement 9.1 [foz_us] 7.4-10.4 Automated blood neutrophils/100 leukocytes 67 % 42-75 Automated blood lymphocytes/100 leukocytes 24 % 12-44 Blood monocytes/100 leukocytes 7 % 0-12 Automated blood eosinophils/100 leukocytes 2 % 0-10 Automated blood basophils/100 leukocytes 0 % 0-10 Blood neutrophils automated count (number/volume) 4.5 10*3 1.8-7.8 Blood lymphocytes automated count (number/volume) 1.6 10*3 1.0-4.0 Blood monocytes automated count (number/volume) 0. 5 10*3 0.0-1.0 Automated eosinophil count 0.1 10*3/uL 0 .0-0.3 Automated blood basophil count (count/volume) 0.0 10*3/uL 0.0-0.1 Serum or plasma choriogonadotropin (preg mo test) detection - 05/15/19 18:50 Serum or plasma choriogonadotropin ( test) de tection NEGATIVE NEGATIVE Comprehensive metabolic panel - 05/15/19 18:50 Serum or plasma sodium measurement (moles/volume) 136 mmol/L 135-145 Serum or plasma potassium measurement (moles/volume) 3.3 mmol/L 3.6-5.0 Serum or plasma chloride measurement (moles/volume) 103 mmol/L 98-107 Carbon dioxide 21 mmol/L 21-32 Serum or plasma anion gap determination (moles/volume) 12 mmol/L 5-14 Serum or plasma urea nitrogen measurement (mass/volume ) 8 mg/dL 7-18 Serum or plasma creatinine measurement (mass/volume) 0.68 mg/dL 0.60-1.30 Serum or plasma urea nitrogen/creatinine mass ratio 12 NRG Serum or plasma creatinine measurement w ith calculation of estimated glomerular filtration rate > NRG Serum or plasma glucose measurement (mass/volume) 88 mg/dL 70-105 Serum or plasma calcium measurement (mass/volume) 9.0 mg/dL 8.5-10.1 Serum or plasma total bilirubin measurement (mass/volu me) 0.2 mg/dL 0.1-1.0 Serum or plasma alkaline phosphatase kim surement (enzymatic activity/volume) 107 U/L 40-136 Serum or plasma aspartate aminotransfera se measurement (enzymatic activity/volume) 19 U/L 5-34 Serum or plasma alanine aminotransferase measurement (enzymatic activity/volume) 21 U/L 0-55 Serum or plasma protein measurement (mass/volume) 7.2 g/dL 6.4-8.2 Serum or plasma albumin measurement (mass/volume) 4.3 g/dL 3.2-4.5 CALCIUM CORRECTED 8.8 mg/dL 8.5-10.1 Magnesium - 05/15/19 18:50 Magnesium 1.6 mg/dL 1.6-2.4 Myoglobin, serum - 05/15/19 18:50 Myoglobin, serum 34.9 ng/mL 10.0-92.0 Serum or plasma troponin i.cardiac measu rement (mass/volume) - 05/15/19 18:50 Serum or plasma troponin i.cardiac measurement (mass/v olume) < ng/mL <0.028 Serum or plasma lithium measurement (mol es/volume) - 05/15/19 18:50 BNP PT < 10.0 <100.0 PT panel in platelet poor plasma by coag ulation assay - 05/15/19 19:14 Prothrombin time (PT) in platelet poor plasma by coagu lation assay 13.9 s 12.2-14.7 INR in platelet poor plasma or blood by coagulation as say 1.0 0.8-1.4 Activated partial thromboplastin time (a PTT) in platelet poor plasma bycoagulation assay - 05/15/19 19:14 Activated partial thromboplastin time (a PTT) in platelet poor plasma bycoagulation assay 30 s 24-35 Fibrin D-dimer FEU measurement in platel et poor plasma (mass/volume) - 05/15/19 19:14 Fibrin D-dimer FEU measurement in platelet poor plasma (mass/volume) 0.67 ug/mL 0.00-0.49 Serum or plasma troponin i.cardiac measu rement (mass/volume) - 05/15/19 20:56 Serum or plasma troponin i.cardiac measurement (mass/v olume) < ng/mL <0.028 Encounters ACCT No. Visit Date/Time Discharge Status Pt. Type Provider Facility Loc./Unit Complaint [id number] 08/22/2014 13:09:00 08/22/2014 23:59: 59 [facility] Outpatient CARLOS AHUJA [id number] 07/28/2014 09:24:00 07/28/2014 23:59: 59 [facility] Outpatient CARLOS AHUJA [id number] 07/28/2014 09:24:00 07/28/2014 23:59: 59 [facility] Outpatient CARLOS AHUJA [id number] 07/16/2014 09:41:00 07/16/2014 23:59: 59 CLS Outpatient WENDI BLACK MD [id number] 06/26/2014 13:30:00 06/26/2014 23:59: 59 CLS Outpatient WENDI BLACK MD [id number] 06/26/2014 13:30:00 06/26/2014 23:59: 59 CLS Outpatient WENDI BLACK MD [id number] 06/25/2014 10:06:00 06/25/2014 23:59: 59 CLS Outpatient TIN HEREDIA PSYD MICAELA Ríos [id number] 06/23/2014 08:04:00 06/23/2014 23:59: 59 CLS Outpatient CARLOS AHUJA [id number] 05/21/2014 11:37:00 05/21/2014 23:59: 59 CLS Outpatient WENDI BLACK MD [id number] 05/21/2014 11:37:00 05/21/2014 23:59: 59 CLS Outpatient WENDI BLACK MD [id number] 02/21/2014 16:26:00 02/21/2014 23:59: 59 CLS Outpatient PAIGE HECK MANAV LONG [id number] 02/17/2014 14:00:00 02/17/2014 23:59: 59 CLS Outpatient DIMPLE PEÑALOZA DO [id number] 02/17/2014 14:00:00 02/17/2014 23:59: 59 CLS Outpatient DIMPLE PEÑALOZA DO [id number] 01/01/2014 10:30:00 01/01/2014 23:59: 59 CLS Outpatient WENDI BLACK MD [id number] 01/01/2014 10:30:00 01/01/2014 23:59: 59 CLS Outpatient WENDI BLACK MD [id number] 10/23/2013 10:35:00 10/23/2013 23:59: 59 CLS Outpatient PAIGE HECK MANAV ALVES [id number] 10/02/2013 10:27:00 10/02/2013 23:59: 59 CLS Outpatient MAU NAVARRO APRN [id number] 07/26/2013 11:02:00 07/26/2013 23:59: 59 CLS Outpatient PAIGE HECK MANAV ALVES [id number] 04/26/2013 13:33:00 04/26/2013 23:59: 59 CLS Outpatient DIMPLE PEÑALOZA DO [id number] 03/08/2013 14:50:00 03/08/2013 23:59: 59 CLS Outpatient TEOFILO FELICIANO MD [id number] 09/04/2012 15:25:00 09/04/2012 23:59: 59 CLS Outpatient DIMPLE PEÑALOZA DO [id number] 08/24/2012 15:09:00 08/24/2012 23:59: 59 CLS Outpatient [id number] 08/10/2012 09:40:00 08/10/2012 23:59: 59 CLS Outpatient MANAV GIBSON APRN [id number] 06/21/2012 11:34:00 06/21/2012 23:59: 59 CLS Outpatient MANAV GIBSON APRN [id number] 06/18/2012 08:06:00 06/18/2012 23:59: 59 CLS Outpatient [id number] 06/15/2012 12:10:00 06/15/2012 23:59: 59 CLS Outpatient [id number] 04/23/2012 13:28:00 04/23/2012 23:59: 59 CLS Outpatient [id number] 03/27/2012 07:58:00 03/27/2012 23:59:5 9 CLS Outpatient DIMPLE PEÑALOZA DO [id number] 11/07/2012 17:40:00 Document Registration [id number] 10/30/2012 15:03:00 Document Registration [id number] 09/20/2012 09:48:00 Document Registration [id number] 05/15/2019 18:26:00 22:16:00 DIS Emergency SOCORRO KEATING [employer] [facility] ER SOB,CP, NUMBNESS [id number] 02/24/2019 16:22:00 18:33:00 DIS Outpatient SOCORRO KEATING [employer]ALEGAL [facility] ER CP/SOB [id number] 12/05/2018 10:23:00 019 11:07:00 DIS Emergency CRYSTAL SINGLETON MD [facility] ER LOWER ABD PAIN;RECTAL P AIN [id number] 08/19/2018 09:07:00 019 12:28:00 DIS Emergency GOMEZ MELGOZA DO [facility] ER FS VOMITING,DIARRHEA,HOT F LASHES [id number] 11/09/2017 10:00:00 018 23:59:59 CLS Preadmit NELLY GOSS [facility] RAD MULTIPLE FRACTURES [id number] 10/15/2017 00:51:00 018 02:49:00 DIS Emergency DAMEON GUY YEPEZ [facility] ER AB BACK PAIN [id number] 10/01/2017 23:32:00 018 01:30:00 DIS Emergency GUY XIAO DO [facility] ER HEAD INJ [id number] 08/01/2017 08:45:00 018 23:59:59 CLS Preadmit WENDI BLACK MD [facility] RAD EFFUSION,RT KNEE [id number] 04/10/2017 18:16:00 017 21:16:00 DIS Emergency CRYSTAL SINGLETON MD [facility] ER CRAMPING/ABD PAIN [id number] 04/02/2017 13:09:00 017 13:59:00 DIS Emergency BOBY DANIELLE MD [facility] ER R LEG PAIN [id number] 02/20/2017 10:52:00 017 09:25:00 DIS Outpatient WENDI BLACK MD [facility] REHAB BACK PAIN [id number] 01/15/2017 12:40:00 017 15:28:00 DIS Emergency DAMEONGUY Raman DO [facility] ER R SIDE NUMBNESS [id number] 01/12/2017 11:42:00 017 23:59:59 CLS Outpatient WENDI BLACK MD [facility] RAD M54.16 [id number] 12/31/2016 12:10:00 017 13:14:00 DIS Emergency SOCORRO KEATING COMPLEX [employer]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
== END 2019-05-15 22:16 | disposition home or self-care (01) ==
LOC: EDUNIT# 18:24 → ER 18:26
DX: R07.9 Chest pain, unspecified (principal); E78.00 Pure hypercholesterolemia, unspecified; I10 Essential (primary) hypertension; J45.909 Unspecified asthma, uncomplicated; G43.909 Migraine, unspecified, not intractable, without status migrainosus; F41.9 Anxiety disorder, unspecified; F32.9 Major depressive disorder, single episode, unspecified; F17.210 Nicotine dependence, cigarettes, uncomplicated; Z90.710 Acquired absence of both cervix and uterus; Z87.442 Personal history of urinary calculi; Z87.440 Personal history of urinary (tract) infections; Z88.2 Allergy status to sulfonamides; Z88.0 Allergy status to penicillin; Z88.5 Allergy status to narcotic agent; Z88.1 Allergy status to other antibiotic agents; Z88.8 Allergy status to other drugs, medicaments and biological substances
CPT/HCPCS: 36415; 71045; 71275; 80053; 83735; 83874; 83880; 84484; 84703; 85025; 85379; 85610; 85730; 93005; 93041; 96374; 96375

== ENCOUNTER → 2019-09-13 | Outpatient (CLI) | payer SELFPAY ==
--- NOTE | 2019-09-13 13:40 | Diagnostic Imaging Report ---
PROCEDURE: CT chest with contrast only. TECHNIQUE: Multiple contiguous axial images were obtained through the chest after administration of intravenous contrast. Auto Exposure Controls were utilized during the CT exam to meet ALARA standards for radiation dose reduction. INDICATION: Elevated D-dimer, shortness of breath, and chest pain. COMPARISON: Comparison made with prior examination from 05/15/2019. FINDINGS: There are no primary nodules, masses, or infiltrates. There is no pleural or pericardial fluid. There is no pneumothorax. There is no pathologically enlarged adenopathy in the chest. The thoracic aorta is normal in caliber and without evidence of dissection. There are no filling defects seen within the pulmonary arteries to suggest a pulmonary embolism. The visualized intraabdominal structures are unremarkable. The osseous structures are unremarkable. IMPRESSION: No acute abnormality in the chest. Specifically, there is no evidence of a pulmonary embolism or aortic dissection. Dictated by: Dictated on workstation # [id number]
== END ==
LOC: RAD 12:57
PROVIDERS: ATTEND Emergency Medicine
DX: R06.02 Shortness of breath (principal); R00.2 Palpitations; R79.1 Abnormal coagulation profile
CPT/HCPCS: 71260

== ENCOUNTER 2019-11-27 20:31 | Emergency (ER) | payer SELFPAY ==
[~2019-11-27] VITALS: Ht 175 cm; Wt 127.3 kg
[2019-11-27] MEDS ORDERED: METF-397 (20:44)
[2019-11-27] MEDS ORDERED: ASPIRIN 81 MG CHEW (CHILDREN'S ASA) PO ONE (21:15)
[2019-11-27] MEDS ORDERED: LIDOCAINE 2% VISCOUS 15 ML UDC PO ONE (21:15)
[2019-11-27] MEDS ORDERED: ANTACID SUSP 30 ML UDC (MYLANTA) PO ONE (21:15)
[2019-11-27] MEDS ORDERED: LACTATED RINGERS 1,000 ML IV ONE (21:22)
--- NOTE | 2019-11-27 21:27 | ED Chest Pain ---
General Chief Complaint: Respiratory Problems Stated Complaint: CHEST TIGHTNESS,SOB Nursing Triage Note: intermittant soa with exertion x2 weeks, epigastric pain Nursing Sepsis Screen: No Definite Risk Source: patient Exam Limitations: no limitations History of Present Illness Date Seen by Provider: Nov 27, 2019 Time Seen by Provider: 20:55 Initial Comments Here with report of increasing exertional dyspnea over the last 2 weeks and now associated with central chest pain and epigastric pain. States this is already getting worse over the past couple weeks. Denies recent infection or exposure to COVID positive for suspected patient's. Denies sore throat, runny nose, fever or chills but does complain of shortness of breath and increased tiredness/malaise. Timing/Duration: getting worse, changing over time Severity/Quality: moderate, pressure Location: central Radiation: epigastric Activities at Onset: none Prior CP/Workup: echocardiography, stress test ASA po TRAVEL ATTENDANTS: No NTG SL TRAVEL ATTENDANTS: No Associated Symptoms: abdominal pain; No back pain, No dizziness, No edema; fatigue; No fever/chills, No nausea/vomiting; shortness of breath, weakness Allergies and Home Medications Allergies Coded Allergies: Sulfa (Sulfonamide Antibiotics) (Unverified Allergy, Unknown, 07/31/14) amoxicillin (Unverified Allergy, Unknown, 07/31/14) cyclobenzaprine (Unverified Allergy, Unknown, 01/15/17) morphine (Unverified Allergy, Unknown, 07/31/14) paroxetine (Unverified Allergy, Unknown, 07/31/14) sulfamethoxazole (Unverified Allergy, Unknown, 07/31/14) tramadol (Verified Allergy, Unknown, itching, 12/21/16) trimethoprim (Unverified Allergy, Unknown, 07/31/14) acetaminophen (Verified Adverse Reaction, Intermediate, nausea, 12/21/16) codeine (Verified Adverse Reaction, Intermediate, nausea, 12/21/16) hydrocodone (Unverified Adverse Reaction, Intermediate, nausea, 12/21/16) Home Medications Gabapentin 300 Mg Tablet, 900 MG PO BID, (Reported) Lisinopril 20 Mg Tablet, 20 MG PO DAILY, (Reported) Patient Home Medication List Home Medication List Reviewed: Yes Review of Systems Review of Systems Constitutional: see HPI EENTM: No Nose Congestion, No Throat Pain Respiratory: Denies Cough; SOA With Exertion Cardiovascular: Chest Pain, Palpitations; Denies Syncope Gastrointestinal: Abdominal Pain; Denies Nausea, Denies Vomiting Genitourinary: No Symptoms Reported Musculoskeletal: No back pain; muscle weakness Skin: no symptoms reported Psychiatric/Neurological: Anxiety, Weakness All Other Systems Reviewed Negative Unless Noted: Yes Past Dhnufms-Itkrvf-Setabv Hx Patient Social History Alcohol Use: Rarely Uses Number of Drinks Today: AA Alcohol Beverage of Choice: Beer Recreational Drug Use: No Smoking Status: Former Smoker Type Used: Cigarettes Former Smoker, Quit: Jun 21, 2018 2nd Hand Smoke Exposure: Yes Recent Foreign Travel: No Contact w/Someone Who Travel: No Recent Infectious Disease Expo: No Recent Hopitalizations: No Immunizations Up To Date Tetanus Booster (TDap): Less than 5yrs PED Vaccines UTD: Yes Seasonal Allergies Seasonal Allergies: No Past Medical History Surgeries: Yes Breast, Gallbladder, Hysterectomy, Nose Respiratory: Yes Asthma Cardiac: Yes High Cholesterol, Hypertension Neurological: Yes (OCCASIONAL HEADACHES) Headaches /Migraines : No 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) [employer]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 Sexually Transmitted Disease: No HIV/AIDS: No Genitourinary: Yes Kidney Stones, UTI-Chronic Gastrointestinal: Yes Chronic Constipation Musculoskeletal: Yes (LEFT FOOT FRACTURE) Chronic Back Pain, Fractures Endocrine: Yes (PREDIABETIC AT LAST PCP APPOINTMENT) HEENT: No Cancer: No Psychosocial: Yes (SUICIDAL IDEATION) Anxiety, Depression Integumentary: No Blood Disorders: No Adverse Reaction/Blood Tranf: No Family Medical History Reviewed Nursing Family Hx No Pertinent Family Hx Physical Exam Vital Signs Vital Signs - First Documented 11/27/19 20:36 Temp 37.2 Pulse 106 Resp 18 B/P (MAP) 137/82 (100) Pulse Ox 98 O2 Delivery Room Air Capillary Refill : Less Than 3 Seconds Height, Weight, BMI Height: 5'8.00" Weight: 267lbs. oz. 121.518999cx; 41.00 BMI Method:Stated General Appearance: No Apparent Distress, WD/WN HEENT: PERRL/EOMI, Pharynx Normal Neck: Non Tender, Supple Respiratory: Lungs Clear, Normal Breath Sounds Cardiovascular: No Murmur, Tachycardia Gastrointestinal: Non Tender, Soft Extremity: Normal Range of Motion, Non Tender, No Calf Tenderness, No Pedal Edema Neurologic/Psychiatric: Alert, Oriented x3 Skin: Normal Color, Warm/Dry Progress/Results/Core Measures Results/Orders Lab Results Laboratory Tests Test 11/27/19 21:15 11/27/19 21:17 Range/Units White Blood Count 8.4 4.3-11.0 10^3/uL Red Blood Count 3.82 L 4.35-5.85 10^6/uL Hemoglobin 11.8 11.5-16.0 G/DL Hematocrit 34 L 35-52 % Mean Corpuscular Volume 90 80-99 FL Mean Corpuscular Hemoglobin 31 25-34 PG Mean Corpuscular Hemoglobin Concent 35 32-36 G/DL Red Cell Distribution Width 12.1 10.0-14.5 % Platelet Count 308 130-400 10^3/uL Mean Platelet Volume 9.3 7.4-10.4 FL Neutrophils (%) (Auto) 58 42-75 % Lymphocytes (%) (Auto) 34 12-44 % Monocytes (%) (Auto) 7 0-12 % Eosinophils (%) (Auto) 2 0-10 % Basophils (%) (Auto) 0 0-10 % Neutrophils # (Auto) 4.9 1.8-7.8 X 10^3 Lymphocytes # (Auto) 2.8 1.0-4.0 X 10^3 Monocytes # (Auto) 0.6 0.0-1.0 X 10^3 Eosinophils # (Auto) 0.2 0.0-0.3 10^3/uL Basophils # (Auto) 0.0 0.0-0.1 10^3/uL Erythrocyte Sedimentation Rate 10 0-20 MM/HR Prothrombin Time 12.0 L 12.2-14.7 SEC INR Comment 0.9 0.8-1.4 Activated Partial Thromboplast Time 27 24-35 SEC D-Dimer 0.64 H 0.00-0.49 UG/ML Sodium Level 137 135-145 MMOL/L Potassium Level 3.7 3.6-5.0 MMOL/L Chloride Level 106 98-107 MMOL/L Carbon Dioxide Level 20 L 21-32 MMOL/L Anion Gap 11 5-14 MMOL/L Blood Urea Nitrogen 7 7-18 MG/DL Creatinine 0.70 0.60-1.30 MG/DL Estimat Glomerular Filtration Rate > 60 BUN/Creatinine Ratio 10 Glucose Level 142 H 70-105 MG/DL Calcium Level 8.5 8.5-10.1 MG/DL Corrected Calcium 8.7 8.5-10.1 MG/DL Magnesium Level 1.7 1.6-2.4 MG/DL Total Bilirubin 0.1 0.1-1.0 MG/DL Aspartate Amino Transf (AST/SGOT) 24 5-34 U/L Alanine Aminotransferase (ALT/SGPT) 26 0-55 U/L Alkaline Phosphatase 111 40-136 U/L Lactate Dehydrogenase 297 H 125-220 U/L Myoglobin 30.6 10.0-92.0 NG/ML Troponin I < 0.028 <0.028 NG/ML C-Reactive Protein High Sensitivity 0.79 H 0.00-0.50 MG/DL Total Protein 6.9 6.4-8.2 GM/DL Albumin 3.8 3.2-4.5 GM/DL Procalcitonin 0.02 <0.10 NG/ML My Orders Orders - BOBY DANIELLE MD Cbc With Automated Diff (11/27/19 21:05) Magnesium (11/27/19 21:05) Chest 1 View, Ap/Pa Only (11/27/19 21:05) Ekg Tracing (11/27/19 21:05) Comprehensive Metabolic Panel (11/27/19 21:05) Myoglobin Serum (11/27/19 21:05) Protime With Inr (11/27/19 21:05) Partial Thromboplastin Time (11/27/19 21:05) O2 (11/27/19 21:05) Monitor-Rhythm Ecg Trace Only (11/27/19 21:05) Lipid Panel (11/28/19 06:00) Ed Iv/Invasive Line Start (11/27/19 21:05) Troponin I (11/27/19 21:05) Aspirin Chewable Tablet (Baby Aspirin Ch (11/27/19 21:15) Fibrin Degradation Products (11/27/19 21:05) Procalcitonin (Pct) (11/27/19 21:05) Hs C Reactive Protein (11/27/19 21:05) Erythrocyte Sedimentation Rate (11/27/19 21:05) LDH (11/27/19 21:05) Coronavirus Sars-Cov-2 So 2018 (11/27/19 21:05) Lidocaine 2% Viscous 15 Ml (Xylocaine Vi (6/17/20 21:15) Antacid Suspension (Mylanta Suspension (11/27/19 21:15) Ed Iv/Invasive Line Start (11/27/19 21:22) Lactated Ringers (Lr 1000 Ml Iv Solution (11/27/19 21:22) Famotidine Injection (Pepcid Injection) (11/27/19 22:54) Medications Given in ED Current Medications Medications Dose Ordered Sig/Brandon Route Start Time Stop Time Status Last Admin Dose Admin Al Hydrox/Mg Hydrox/Simethicone 30 ml ONCE ONCE PO 11/27/19 21:15 11/27/19 21:16 DC 11/27/19 21:28 30 ML Aspirin 324 mg ONCE ONCE PO 11/27/19 21:15 11/27/19 21:16 DC 11/27/19 21:28 324 MG Lactated Ringer's 1,000 ml @ 0 mls/hr Q0M ONCE IV 11/27/19 21:22 11/27/19 21:23 DC 11/27/19 21:28 0 MLS/HR Lidocaine HCl 15 ml ONCE ONCE PO 11/27/19 21:15 11/27/19 21:16 DC 11/27/19 21:28 15 ML Vital Signs/I&O 11/27/19 20:36 Temp 37.2 Pulse 106 Resp 18 B/P (MAP) 137/82 (100) Pulse Ox 98 O2 Delivery Room Air Blood Pressure Mean: 100 Progress Progress Note : Progress Note Seen and evaluated. IV, labs, EKG and chest x-ray ordered. LR 1 L bolus. ASA 324 mg by mouth and GI cocktail ordered. We will get COVID-19 screening due to community spread and vague symptoms. This is discussed with the patient who agrees. Monitor patient. 2255: Pepcid 20 mg IV ordered and given. No acute findings. Testing pending. Discharged home with return precautions. Patient verbalize understanding of instructions and agreement with plan. Initial ECG Impression Date: Nov 27, 2019 Initial ECG Impression Time: 21:02 Initial ECG Rate: 98 Initial ECG Rhythm: S.Tach Comment Sinus rhythm with normal axis. No evidence of ST elevation PR. Similar to previous of 05/25/19. Interpreted by me. Diagnostic Imaging Diagonstic Imaging: Xray Plain Films/CT/US/NM/MRI: chest Comments [facility] [place], [place] NAME: BRITT WITT [facility] REC#: [id number] PT STATUS: REG ER : 1980 PHYSICIAN: BOBY DANIELLE MD ADMIT DATE: 11/27/19/ER Draft Date of Exam:11/27/19 CHEST 1 VIEW, AP/PA ONLY INDICATION: Shortness of air. COMPARISON: 09/13/2019. EXAMINATION: Single frontal view of the chest was obtained. FINDINGS: Normal heart size and pulmonary vascularity. The lungs are well aerated and clear. No large pleural effusion or pneumothorax is seen. The visualized osseous structures show no acute abnormality. IMPRESSION: No acute cardiopulmonary process. Dictated on workstation # [id number] Dict: 11/27/192135 Trans: 11/27/192145 [facility] [id number] Interpreted by: JERMAINE FALL MD Electronically signed by: Departure Impression Primary Impression: Chest pain Qualified Codes: R07.9 - Chest pain, unspecified Additional Impressions: Epigastric pain COVID-19 evaluation Disposition: 01 HOME, SELF-CARE Condition: Stable Departure-Patient Inst. Decision time for Depature: 22:59 Referrals: ROSARIO TURK DO (PCP/Family) Primary Care Physician Patient Instructions: Chest Pain, Acute Abdomen (Belly Pain), Adult (DC), Acid Reflux and GERD in Adults (DC) Add. Discharge Instructions: All discharge instructions reviewed with patient and/or family. Voiced understanding. You may take Pepcid 20 mg twice daily for the next 7 days and then daily thereafter to reduce stomach acid. Follow-up with your doctor for recheck and further evaluation. Drink plenty of fluids and get plenty of rest. You will need to remain on quarantine until test results are noted. If they are negative, you will need to be isolated for 3 days after symptoms resolve. If they are positive, the health department will call you and direct quarantine timeframe. You may take ibuprofen 400 mg every 8 hours as needed for fever or pain (second choice). You may take Tylenol/acetaminophen 1000 mg every 8 hours as needed for fever.. Return for worse pain, fever, vomiting, weakness, breathing problems or other concerns as needed. Copy Copies To 1: ROSARIO TURK TIMOTHY D MD Nov 27, 2019 21:27
[2019-11-27 21:30] VITALS: BP 125/79
--- NOTE | 2019-11-27 21:46 | Diagnostic Imaging Report ---
INDICATION: Shortness of air. COMPARISON: 09/13/2019. EXAMINATION: Single frontal view of the chest was obtained. FINDINGS: Normal heart size and pulmonary vascularity. The lungs are well aerated and clear. No large pleural effusion or pneumothorax is seen. The visualized osseous structures show no acute abnormality. IMPRESSION: No acute cardiopulmonary process. Dictated by: Dictated on workstation # [id number]
[2019-11-27 21:57] LABS: BASOPHILS % (AUTO) 0 % (0-10); EOSINOPHILS # (AUTO) 0.2 10^3/uL (0.0-0.3); EOSINOPHILS % (AUTO) 2 % (0-10); HEMATOCRIT 34 % (35-52); HEMOGLOBIN 11.8 G/DL (11.5-16.0); LYMPHOCYTES # (AUTO) 2.8 X 10^3 (1.0-4.0); LYMPHOCYTES % (AUTO) 34 % (12-44); MEAN CORPUSCULAR HEMOGLOBIN 31 PG (25-34); MEAN CORPUSCULAR HGB CONC 35 G/DL (32-36); MEAN CORPUSCULAR VOLUME 90 FL (80-99); MEAN PLATELET VOLUME 9.3 FL (7.4-10.4); MONOCYTES # (AUTO) 0.6 X 10^3 (0.0-1.0); MONOCYTES % (AUTO) 7 % (0-12); NEUTROPHILS # (AUTO) 4.9 X 10^3 (1.8-7.8); NEUTROPHILS % (AUTO) 58 % (42-75); PLATELET COUNT 308 10^3/uL (130-400); RED CELL DISTRIBUTION WIDTH 12.1 % (10.0-14.5); WHITE BLOOD COUNT 8.4 10^3/uL (4.3-11.0)
[2019-11-27 22:08] LABS: ALBUMIN 3.8 GM/DL (3.2-4.5); CHLORIDE 106 MMOL/L (98-107); INR 0.9 (0.8-1.4); POTASSIUM 3.7 MMOL/L (3.6-5.0); SODIUM 137 MMOL/L (135-145)
[2019-11-27 22:09] LABS: CALCIUM 8.5 MG/DL (8.5-10.1)
[2019-11-27 22:10] LABS: GLUCOSE 142 MG/DL (70-105); TOTAL PROTEIN 6.9 GM/DL (6.4-8.2)
[2019-11-27 22:11] LABS: CARBON DIOXIDE 20 MMOL/L (21-32)
[2019-11-27 22:12] LABS: BILIRUBIN,TOTAL 0.1 MG/DL (0.1-1.0)
[2019-11-27 22:14] LABS: ALKALINE PHOSPHATASE 111 U/L (40-136); GFR ESTIMATED > 60
[2019-11-27 22:15] LABS: BUN/CREATININE RATIO 10
[2019-11-27 22:17] LABS: ALANINE AMINOTRANSFERASE 26 U/L (0-55); MAGNESIUM 1.7 MG/DL (1.6-2.4)
[2019-11-27 22:30] VITALS: BP 121/81
[2019-11-27] MEDS ORDERED: FAMOTIDINE 20MG/2ML IV (PEPCID) IV STA (22:54)
--- OUTSIDE RECORDS SUMMARY | 2019-11-27 23:00 | XMS REPORT | Continuity of Care Document ---
Demographics Preferred Language Unknown Marital Status Unknown Pent[employer]ostal Affiliation Unknown Race Unknown Ethnic Group Unknown Author Organization Unknown Address Unknown Phone Unavailable [...] Latex OA N/A N/A 04/26/2013 Yes amoxicillin [id number] Drug Aller gy Unknown N/A 07/31/2014 Yes hydrocodone [id number] Drug Aller gy Unknown N/A 07/31/2014 Yes morphine [id number] Drug Allergy Unknown N/A 07/31/2014 Yes paroxetine [id number] Drug Allerg y Unknown N/A 07/31/2014 Yes Sulfa (Sulfonamide Antibiotics) [id number] Drug Allergy Unknown N/A 015 Yes sulfamethoxazole [id number] Drug Allergy Unknown N/A 07/31/2014 Yes trimethoprim [id number] Drug Allergy Unknown N/A 07/31/2014 Yes Abilify 2 mg tablet Drug Aller gy N/A N/A 08/22/2014 Yes acetaminophen [id number] Elijah g Allergy Moderate nausea 12/21/2016 Yes codeine [id number] Drug Allergy Moderate nausea 12/21/2016 Yes hydrocodone [id number] Drug Aller gy Moderate nausea 12/21/2016 Yes tramadol [id number] Drug Allergy Unknown itching 12/21/2016 Yes cyclobenzaprine [id number] D rug Allergy Unknown N/A 01/15/2017 Medications [...] WOUN D OPEN UPPER LIMB 12/25/2007 GIBSON SHEET PILE HAMMER OPERATOR, MANAV WHITEH 682.9 CELLULITIS AND ABSCESS OF UNSPECIFIED SITES 12/25/2007 GIBSON SHEET PILE HAMMER OPERATOR, MANAV WHITEH 884.0 WOUND OPEN UPPER LIMB 12/25/2007 GIBSON SHEET PILE HAMMER OPERATOR, MANAV LONG 682.9 CELLULITIS AND ABSCESS OF UNSPECIFIED SITES 12/25/2007 GIBSON SHEET PILE HAMMER OPERATOR, MANAV WHITEH 884.0 WOUND OPEN UPPER [...] AND ABSCESS OF UNSPECIFIED SITES 12/25/2007 PAIGE FARRELLNMANAV 884.0 Wound Open Upper Limb 12/25/2007 RAMONCresencio HECK MAU A 68 2.9 CELLULITIS AND ABSCESS OF UNSPECIFIED SITES 12/25/2007 RAMONCresencio HECK MAU A 88 4.0 Wound Open Upper Limb 12/25/2007 PAIGE FARRELLCresencio MANAV ALVES 682.9 CELLULITIS AND ABSCESS OF UNSPECIFIED SITES 12/25/2007 GIBSON UMANG MANAV ALVES 884.0 Wound Open Upper Limb [...] 884.0 Wound Open Upper Limb 12/25/2007 PAIGE SHEET PILE HAMMER OPERATOR, MANAV ALVES 682.9 CELLULITIS AND ABSCESS OF UNSPECIFIED SITES 12/25/2007 GIBSONERIN FARRELLCresencio MANAV ALVES 884.0 Wound Open Upper Limb [...] .0 Wound Open Upper Limb 12/25/2007 CHRISTEL RURAL MAIL CARRIER, CARLOS M 682.9 CELLULITIS AND ABSCESS OF UNSPECIFIED SITES 12/25/2007 CHRI[employer]EL [employer] MAIL CARRIER, CARLOS M 884.0 Wound Open Upper Limb 12/25/2007 CHRISTEL RURAL MAIL CARRIER, CARLOS M 682.9 CELLULITIS AND ABSCESS OF UNSPECIFIED SITES 12/25/2007 CHRISTEL RURAL MAIL CARRIER, CARLOS M 884.0 Wound Open Upper Limb 12/25/2007 CHRI[employer]EL [employer] MAIL CARRIER, CARLOS M 682.9 CELLULITIS AND ABSCESS OF UNSPECIFIED SITES 12/25/2007 CHRI[employer]EL [employer] MAIL CARRIER, CARLOS M 884.0 Wound Open Upper Limb 12/25/2007 CHRI[employer]EL R[employer] MAIL CARRIER, CARLOS M 682.9 CELLULITIS AND ABSCESS OF UNSPECIFIED SITES 12/25/2007 CH[employer]EL [employer] MAIL CARRIER, CARLOS M 884.0 Wound Open Upper Limb [...] DIMPLE K 301.83 PD BORDERLINE 05/27/2010 GIBSON SHEET PILE HAMMER OPERATOR, MANAV ALVES 296.90 MO MOOD DIS NOS 05/27/2010 GIBSON SHEET PILE HAMMER OPERATOR, MANAV WHITEH 301.83 PD BORDERLINE 05/27/2010 RAMON SHEET PILE HAMMER OPERATOR, MAU A 296.90 MO MOOD DIS NOS 05/27/2010 RAMON SHEET PILE HAMMER OPERATOR, MAU A 301.83 PD BORDERLINE 05/27/2010 GIBSON SHEET PILE HAMMER OPERATOR, MANAV ALVES 296.90 MO MOOD DIS NOS 05/27/2010 GIBSON SHEET PILE HAMMER OPERATOR, MANAV ALVES 301.83 PD BORDERLINE 05/27/2010 WENDI BLACK MD N 296 .90 MO MOOD DIS NOS 05/27/2010 WENDI BLACK MD N 301 .83 PD BORDERLINE 05/27/2010 WENDI BLACK MD N 296 .90 MO MOOD DIS NOS 05/27/2010 WENDI BLACK MD 301 .83 PD BORDERLINE 05/27/2010 PEÑALOZA DO, DIMPLE K 296.90 MO MOOD DIS NOS 05/27/2010 PEÑALOZA DO, DIMPLE K 301.83 PD BORDERLINE 05/27/2010 GIBSON SHEET PILE HAMMER OPERATOR, MANAV LONG 296.90 MO MOOD DIS NOS 05/27/2010 GIBSON SHEET PILE HAMMER OPERATOR, MANAV LONG 301.83 PD BORDERLINE 05/27/2010 [...] MD N 301 .83 PD BORDERLINE 05/27/2010 TIN HEREDIA PSYD L 296.90 MO MOOD DIS NOS 05/27/2010 TIN HEREDIA PSYD L 301.83 PD BORDERLINE 05/27/2010 SOFIA RICE, WENDI N 296 .90 MO MOOD DIS NOS 05/27/2010 SOFIA RICE, WENDI N 301 .83 PD BORDERLINE 05/27/2010 WENDI BLACK MD N 296 .90 MO MOOD DIS NOS 05/27/2010 SOFIA RICE, WENDI N 301 .83 PD BORDERLINE 05/27/2010 [employer] MAIL CARRIER, CARLOS M 296.90 MO MOOD DIS NOS 05/27/2010 [employer] MAIL CARRIER, CARLOS M 301.83 PD BORDERLINE 05/27/2010 CH[employer]EL [employer] MAIL CARRIER, CARLOS M 296.90 MO MOOD DIS NOS 05/27/2010 CH[employer]EL [employer] MAIL CARRIER, CARLOS M 301.83 PD BORDERLINE 05/27/2010 CHRI[employer]EL [employer] MAIL CARRIER, CARLOS M 296.90 MO MOOD DIS NOS 05/27/2010 CH[employer]EL [employer] MAIL CARRIER, CARLOS M 301.83 PD BORDERLINE 05/27/2010 CH[employer]EL [employer] MAIL CARRIER, CARLOS M 296.90 MO MOOD DIS NOS 05/27/2010 CHRI[employer]EL [employer] MAIL CARRIER, CARLOS M 301.83 PD BORDERLINE 06/17/2010 296.80 [...] MD 300 .02 AN GEN ANXIETY 06/17/2010 SOFIA MD, WENDI N 296 .80 MO BIPOLAR NOS 06/17/2010 [...] 300 .02 AN GEN ANXIETY 06/17/2010 CH[employer]EL [employer] MAIL CARRIER, CARLOS M 296.80 MO BIPOLAR NOS 06/17/2010 CH[employer]EL [employer] MAIL CARRIER, CARLOS M 300.02 AN GEN ANXIETY 06/17/2010 CHRI[employer]EL [employer] MAIL CARRIER, CARLOS M 296.80 MO BIPOLAR NOS 06/17/2010 CHRI[employer]EL [employer] MAIL CARRIER, CARLOS M 300.02 AN GEN ANXIETY 06/17/2010 CHRISTEL [employer] MAIL CARRIER, CARLOS M 296.80 MO BIPOLAR NOS 06/17/2010 CHRISTEL RURAL MAIL CARRIER, CARLOS M 300.02 AN GEN ANXIETY 06/17/2010 CHRISTEL R[employer] MAIL CARRIER, CARLOS M 296.80 MO BIPOLAR NOS 06/17/2010 CHRISTEL R[employer] MAIL CARRIER, CARLOS M 300.02 AN GEN ANXIETY 10/14/2010 [...] 296 .89 MO BIPOLAR II 10/14/2010 CHRISTEL SALAZAR, CARLOS M 296.89 MO BIPOLAR II 10/14/2010 CH[employer]EL R[employer] MAIL CARRIER, CARLOS M 296.89 MO BIPOLAR II 10/14/2010 CHRISTEL RURAL MAIL CARRIER, CARLOS M 296.89 MO BIPOLAR II 10/14/2010 CHRISTEL [employer]URAL MAIL CARRIER, CARLOS M 296.89 MO BIPOLAR II 03/22/2011 V72.31 LIQUID WASTE TREATMENT PLANT OPERATOR EXAM, ROUTINE 03/22/2011 V72.31 LIQUID WASTE TREATMENT PLANT OPERATOR EXAM, ROUTINE 03/22/2011 V72.31 LIQUID WASTE TREATMENT PLANT OPERATOR EXAM, ROUTINE 03/22/2011 PAIGE HECK MANAV LONG V72.31 LIQUID WASTE TREATMENT PLANT OPERATOR EXAM, ROUTINE 03/22/2011 PAIGE HECK MANAV LONG V72.31 LIQUID WASTE TREATMENT PLANT OPERATOR EXAM, ROUTINE 03/22/2011 V72.31 LIQUID WASTE TREATMENT PLANT OPERATOR EXAM, ROUTINE 03/22/2011 DIMPLE PEÑALOZA DO V72.31 LIQUID WASTE TREATMENT PLANT OPERATOR EXAM, ROUTINE 03/22/2011 V72.31 LIQUID WASTE TREATMENT PLANT OPERATOR EXAM, ROUTINE 03/22/2011 V72.31 LIQUID WASTE TREATMENT PLANT OPERATOR EXAM, ROUTINE 03/22/2011 V72.31 LIQUID WASTE TREATMENT PLANT OPERATOR EXAM, ROUTINE 03/22/2011 DIMPLE PEÑALOZA DO V72.31 LIQUID WASTE TREATMENT PLANT OPERATOR EXAM, ROUTINE 03/22/2011 BRADEN RICE, TEOFILO Deras V72.31 LIQUID WASTE TREATMENT PLANT OPERATOR EXAM, ROUTINE 03/22/2011 DIMPLE PEÑALOZA DO V72.31 LIQUID WASTE TREATMENT PLANT OPERATOR EXAM, ROUTINE 03/22/2011 PAIGE HECK MANAV WHITEH V72.31 LIQUID WASTE TREATMENT PLANT OPERATOR EXAM, ROUTINE 03/22/2011 MAU NAVARRO APRN V72.31 LIQUID WASTE TREATMENT PLANT OPERATOR EXAM, ROUTINE 03/22/2011 PAIGE HECK MANAV ALVES V72.31 LIQUID WASTE TREATMENT PLANT OPERATOR EXAM, ROUTINE 03/22/2011 WENDI BLACK MD V72 .31 LIQUID WASTE TREATMENT PLANT OPERATOR EXAM, ROUTINE 03/22/2011 SOFIA RICE, WENDI Dupont V72 .31 LIQUID WASTE TREATMENT PLANT OPERATOR EXAM, ROUTINE 03/22/2011 DIMPLE PEÑALOZA DO V72.31 LIQUID WASTE TREATMENT PLANT OPERATOR EXAM, ROUTINE 03/22/2011 PAIGE HECK MANAV LONG V72.31 LIQUID WASTE TREATMENT PLANT OPERATOR EXAM, ROUTINE 03/22/2011 DIMPLE PEÑALOZA DO V72.31 LIQUID WASTE TREATMENT PLANT OPERATOR EXAM, ROUTINE 03/22/2011 SOFIA RICE, WENDI Dupont V72 .31 LIQUID WASTE TREATMENT PLANT OPERATOR EXAM, ROUTINE 03/22/2011 SOFIA RICE, WENDI Dupont V72 .31 LIQUID WASTE TREATMENT PLANT OPERATOR EXAM, ROUTINE 03/22/2011 TIN HEREDIA PSYD V72.31 LIQUID WASTE TREATMENT PLANT OPERATOR EXAM, ROUTINE 03/22/2011 WENDI BLACK MD V72 .31 LIQUID WASTE TREATMENT PLANT OPERATOR EXAM, ROUTINE 03/22/2011 WENDI BLACK MD V72 .31 LIQUID WASTE TREATMENT PLANT OPERATOR EXAM, ROUTINE 03/22/2011 CHRISTEL RURAL MAIL CARRIER, CARLOS M V72.31 LIQUID WASTE TREATMENT PLANT OPERATOR EXAM, ROUTINE 03/22/2011 CHRISTEL RURAL MAIL CARRIER, CARLOS M V72.31 LIQUID WASTE TREATMENT PLANT OPERATOR EXAM, ROUTINE 03/22/2011 CHRISTEL RURAL MAIL CARRIER, CARLOS M V72.31 LIQUID WASTE TREATMENT PLANT OPERATOR EXAM, ROUTINE 03/22/2011 CHRISTEL RURAL MAIL CARRIER, CARLOS M V72.31 LIQUID WASTE TREATMENT PLANT OPERATOR EXAM, ROUTINE 05/26/2011 465.9 UPPE R RESPIRATORY INFECTION 05/26/2011 465.9 UPPE R RESPIRATORY INFECTION 05/26/2011 465.9 UPPE R RESPIRATORY INFECTION 05/26/2011 PAIGE HECK MANAV WHITEH 465.9 UPPER RESPIRATORY INFECTION 05/26/2011 PAIGE HECK MANAV WHITEH 465.9 UPPER RESPIRATORY INFECTION 05/26/2011 465.9 UPPE R RESPIRATORY INFECTION 05/26/2011 DIMPLE PEÑALOZA DO 465.9 UPPER RESPIRATORY INFECTION 05/26/2011 465.9 UPPE R RESPIRATORY INFECTION 05/26/2011 465.9 UPPE R RESPIRATORY INFECTION 05/26/2011 465.9 UPPE R RESPIRATORY INFECTION 05/26/2011 PEÑALOZA DO, DIMPLE K 465.9 UPPER RESPIRATORY INFECTION 05/26/2011 TEOFILO FELICIANO MD M 465.9 UPPER RESPIRATORY INFECTION 05/26/2011 PEÑALOZA DO, DIMPLE K 465.9 UPPER RESPIRATORY INFECTION 05/26/2011 PAIGE FARRELLNMANAV 465.9 UPPER RESPIRATORY INFECTION 05/26/2011 RAMONMARGARETH HECK, MAU A 46 5.9 UPPER RESPIRATORY INFECTION 05/26/2011 GIBSONERIN HECKMANAV 465.9 UPPER RESPIRATORY INFECTION 05/26/2011 WENDI BLACK MD N 465 .9 UPPER RESPIRATORY INFECTION 05/26/2011 WENDI BLACK MD N 465 .9 UPPER RESPIRATORY INFECTION 05/26/2011 PEÑALOZA , DIMPLE K 465.9 UPPER RESPIRATORY INFECTION 05/26/2011 GIBSONERIN HECK MANAV ALVES 465.9 UPPER RESPIRATORY INFECTION 05/26/2011 PEÑALOZA AQUILES YEPEZA K 465.9 UPPER RESPIRATORY INFECTION 05/26/2011 WENDI BLACK MD N 465 .9 UPPER RESPIRATORY INFECTION 05/26/2011 WENDI BLACK MD N 465 .9 UPPER RESPIRATORY INFECTION 05/26/2011 TIN HEREDIA PSYD L 465.9 UPPER RESPIRATORY INFECTION 05/26/2011 WENDI BLACK [...] DO K 401.1 HYPERTENSION, BENIGN ESSENTIAL 07/14/2011 PEÑALOZA AQUILES YEPEZA K 783.5 Polydipsia 07/14/2011 AQUILES PEÑALOZA DOA K V18.0 FAMILY HISTORY OF DIABETES MELLITUS 07/14/2011 PAIGE HECK MANAV ALVES 401.1 HYPERTENSION, BENIGN ESSENTIAL 07/14/2011 GIBSON UMANG MANAV ALVES 783.5 Polydipsia 07/14/2011 PAIGE FARRELLCresencio MANAV ALVES V18.0 FAMILY HISTORY OF DIABETES MELLITUS 07/14/2011 RAMONCresencio HECK MAU A 40 1.1 HYPERTENSION, BENIGN ESSENTIAL 07/14/2011 RAMONCresencio HECK MAU A 78 3.5 Polydipsia 07/14/2011 RAMONMAU Dupont APRN A V1 8.0 FAMILY HISTORY OF DIABETES MELLITUS 07/14/2011 PAIGE HECK MANAV WHITEH 401.1 HYPERTENSION, BENIGN ESSENTIAL 07/14/2011 GIBSON APRN, MANAV ALVES 783.5 Polydipsia 07/14/2011 GIBSON UMANG MANAV ALVES V18.0 FAMILY HISTORY OF DIABETES MELLITUS 07/14/2011 SOFIA RICE, WENDI Dupont 401 .1 HYPERTENSION, BENIGN ESSENTIAL 07/14/2011 WENDI BLACK MD N 783 .5 Polydipsia 07/14/2011 WENDI BLACK MD N V18 .0 FAMILY HISTORY OF DIABETES MELLITUS 07/14/2011 WENDI BLACK MD N 401 .1 HYPERTENSION, BENIGN ESSENTIAL 07/14/2011 WENDI BLACK MD N 783 .5 Polydipsia 07/14/2011 WENDI BLACK MD N V18 .0 FAMILY HISTORY OF DIABETES MELLITUS 07/14/2011 DIMPLE PEÑALOZA DO K 401.1 HYPERTENSION, BENIGN ESSENTIAL 07/14/2011 AQUILES PEÑALOZA DOA K 783.5 Polydipsia 07/14/2011 AQUILES PEÑALOZA DOA K V18.0 FAMILY HISTORY OF DIABETES MELLITUS 07/14/2011 PAIGE HECK MANAV WHITEH 401.1 HYPERTENSION, BENIGN ESSENTIAL 07/14/2011 GIBSON APRN, MANAV WHITEH 783.5 Polydipsia 07/14/2011 GIBSON APRN, MANAV WHITEH V18.0 FAMILY HISTORY OF DIABETES MELLITUS 07/14/2011 DIMPLE PEÑALOZA DO K 401.1 HYPERTENSION, BENIGN ESSENTIAL 07/14/2011 DIMPLE PEÑALOZA DO K 783.5 Polydipsia 07/14/2011 JH YEPEZ DIMPLE [...] HYPE RLIPIDEMIA 07/16/2011 272.4 HYPE RLIPIDEMIA 07/16/2011 DIMPLE PEÑALOZA DO K 272.4 HYPERLIPIDEMIA 07/16/2011 TEOFILO FELICIANO MD 272.4 HYPERLIPIDEMIA 07/16/2011 DIMPLE PEÑALOZA DO K 272.4 HYPERLIPIDEMIA 07/16/2011 PAIGE HECK MANAV LONG 272.4 HYPERLIPIDEMIA 07/16/2011 RAMON HECK MAU A 27 2.4 HYPERLIPIDEMIA 07/16/2011 PAIGE HECK MANAV LONG 272.4 HYPERLIPIDEMIA 07/16/2011 WENDI BLACK MD 272 .4 HYPERLIPIDEMIA 07/16/2011 WENDI BLACK MD 272 .4 HYPERLIPIDEMIA 07/16/2011 DIMPLE PEÑALOZA DO K 272.4 HYPERLIPIDEMIA 07/16/2011 MANAV GIBSON APRN 272.4 HYPERLIPIDEMIA 07/16/2011 DIMPLE PEÑALOZA DO K 272.4 HYPERLIPIDEMIA 07/16/2011 WENDI BLACK MD 272 .4 HYPERLIPIDEMIA 07/16/2011 WENDI BLACK MD 272 .4 HYPERLIPIDEMIA 07/16/2011 TIN HEREDIA PSYD 272.4 HYPERLIPIDEMIA 07/16/2011 WENDI BLACK MD 272 .4 HYPERLIPIDEMIA 07/16/2011 WENDI BLACK MD 272 .4 HYPERLIPIDEMIA 07/16/2011 CH[employer]EL RURAL MAIL CARRIER, CARLOS M 272.4 HYPERLIPIDEMIA 07/16/2011 CHRI[employer]EL [employer] MAIL CARRIER, CARLOS M 272.4 HYPERLIPIDEMIA 07/16/2011 CHRI[employer]EL [employer] MAIL CARRIER, CARLOS M 272.4 HYPERLIPIDEMIA 07/16/2011 CHRI[employer]EL RURAL MAIL CARRIER, CARLOS M 272.4 HYPERLIPIDEMIA 11/15/2011 054.10 GEN [...] PEÑALOZA DO 054.10 GENITAL HERPES UNSPECIFIED 11/15/2011 TEOFILO FELICIANO MD 054.10 GENITAL HERPES UNSPECIFIED 11/15/2011 DIMPLE PEÑALOZA DO 054.10 GENITAL HERPES UNSPECIFIED 11/15/2011 PAIGE HECK [...] 054 .10 GENITAL HERPES UNSPECIFIED 11/15/2011 SOFIA MD, WENDI N 054 .10 GENITAL HERPES UNSPECIFIED 11/15/2011 TIN HEREDIA PSYD L 054.10 GENITAL HERPES UNSPECIFIED 11/15/2011 SOFIA RICE, WENDI N 054 .10 GENITAL HERPES UNSPECIFIED 11/15/2011 WENDI BLACK MD N 054 .10 GENITAL HERPES UNSPECIFIED 11/15/2011 CH[employer]EL R[employer] MAIL CARRIER, CARLOS M 054.10 GENITAL HERPES UNSPECIFIED 11/15/2011 CHRISTEL RURAL MAIL CARRIERCARLOS M 054.10 GENITAL HERPES UNSPECIFIED 11/15/2011 CHRI[employer]EL [employer] MAIL CARRIER, CARLOS M 054.10 GENITAL HERPES UNSPECIFIED 11/15/2011 CHRISTEL R[employer] MAIL CARRIER, CARLOS M 054.10 GENITAL HERPES UNSPECIFIED 03/27/2012 786.05 [...] DO, DIMPLE K 787.02 Nausea Alone 03/27/2012 PAIGE HECK MANAV ALVES 786.05 Shortness Of Breath 03/27/2012 GIBSON APRN, MANAV ALVES 786.50 Chest Pain 03/27/2012 PAIGE HECK MANAV ALVES 787.02 Nausea Alone 03/27/2012 RAMONMILADY Dupont APRNIDI A 786.05 Shortness Of Breath 03/27/2012 RAMONCresencio HECK MAU A 786.50 Chest Pain 03/27/2012 RAMONCresencio HECK MAU A 787.02 Nausea Alone 03/27/2012 GIBSON SHEET PILE HAMMER OPERATOR MANAV ALVES 786.05 Shortness Of Breath 03/27/2012 [...] DIMPLE K 787.02 Nausea Alone 03/27/2012 GIBSON SHEET PILE HAMMER OPERATOR, MANAV ALVES 786.05 Shortness Of Breath 03/27/2012 GIBSON SHEET PILE HAMMER OPERATOR, MANAV ALVES 786.50 Chest Pain 03/27/2012 GIBSON SHEET PILE HAMMER OPERATOR, MANAV ALVES 787.02 Nausea Alone 03/27/2012 PEÑALOZA [...] N 786 .50 Chest Pain 03/27/2012 WENDI BALCK MD N 787 .02 Nausea Alone 03/27/2012 [employer] MAIL CARRIER, CARLOS M 786.05 Shortness Of Breath 03/27/2012 CHRISTEL RURAL MAIL CARRIERCARLOS M 786.50 Chest Pain 03/27/2012 CHRISTEL CARLOS SALAZAR M 787.02 Nausea Alone 03/27/2012 CHRISTEL R[employer] MAIL CARRIERCARLOS M 786.05 Shortness Of Breath 03/27/2012 CHRISTEL RURAL MAIL CARRIERCARLOS M 786.50 Chest Pain 03/27/2012 CHRISTEL CARLOS SALAZAR M 787.02 Nausea Alone 03/27/2012 CHRISTEL R[employer] MAIL CARRIERCARLOS M 786.05 Shortness Of Breath 03/27/2012 CHRISTEL RURAL MAIL CARRIERCARLOS M 786.50 Chest Pain 03/27/2012 CHRISTEL CARLOS SALAZAR M 787.02 Nausea Alone 03/27/2012 CARLOS AHUJA [...] .32 MO DEPRESSIVE RECURRENT MODERATE 06/21/2012 CH[employer] MAIL CARRIER, CARLOS M 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 06/21/2012 CHRI[employer] MAIL CARRIER, CARLOS M 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 06/21/2012 CHRI[employer]EL [employer] MAIL CARRIER, CARLOS M 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 06/21/2012 CHRISTEL R[employer] MAIL CARRIER, CARLOS M 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 [...] AND SUBCUTANEOUS TISSUE 08/24/2012 MAU NAVARRO APRN 21 4.1 LIPOMA OF OTHER SKIN AND [...] BRON CHITIS, ACUTE 09/04/2012 TEOFILO FELICIANO MD M 466.0 BRONCHITIS, ACUTE 09/04/2012 DIMPLE PEÑALOZA DO K 466.0 BRONCHITIS, ACUTE 09/04/2012 MANAV GIBSON APRN 466.0 BRONCHITIS, ACUTE 09/04/2012 MAU NAVARRO APRN 46 6.0 BRONCHITIS, ACUTE 09/04/2012 MANAV GIBSON APRN 466.0 BRONCHITIS, ACUTE 09/04/2012 WENDI BLACK MD 466 .0 BRONCHITIS, ACUTE 09/04/2012 WENDI BLACK MD 466 .0 BRONCHITIS, ACUTE 09/04/2012 DIMPLE PEÑALOZA DO 466.0 BRONCHITIS, ACUTE 09/04/2012 MANAV GIBSON APRN 466.0 BRONCHITIS, ACUTE 09/04/2012 DIMPLE PEÑALOZA DO 466.0 BRONCHITIS, ACUTE 09/04/2012 WENDI BLACK MD 466 .0 BRONCHITIS, ACUTE 09/04/2012 WENDI BLACK MD N 466 .0 BRONCHITIS, ACUTE 09/04/2012 TIN HEREDIA PSYD L 466.0 BRONCHITIS, ACUTE 09/04/2012 WENDI BLACK MD N 466 .0 BRONCHITIS, ACUTE 09/04/2012 WENDI BLACK MD N 466 .0 BRONCHITIS, ACUTE 09/04/2012 [employer] MAIL CARRIER, CARLOS M 466.0 BRONCHITIS, ACUTE 09/04/2012 CHRI[employer]EL [employer] MAIL CARRIER, CARLOS M 466.0 BRONCHITIS, ACUTE 09/04/2012 CHRI[employer]EL RURAL MAIL CARRIER, CARLOS M 466.0 BRONCHITIS, ACUTE 09/04/2012 CHRI[employer]EL [employer] MAIL CARRIER, CARLOS M 466.0 BRONCHITIS, ACUTE 10/30/2012 782.3 EDEMA 10/30/2012 782.3 EDEMA 10/30/2012 BRADEN RICE, TEOFILO M 782.3 EDEMA 10/30/2012 PEÑALOZA DO, DIMPLE K 782.3 EDEMA 10/30/2012 PAIGE HECK, MANAV LONG 782.3 EDEMA 10/30/2012 MAU NAVARRO APRN A 78 2.3 EDEMA 10/30/2012 GIBSONERIN HECK MANAV WHITEH 782.3 EDEMA 10/30/2012 WENDI BLACK MD N 782 .3 EDEMA 10/30/2012 WENDI BLACK MD N 782 .3 EDEMA 10/30/2012 PEÑALOZA DO DIMPLE K 782.3 EDEMA 10/30/2012 PAIGE HECK MANAV LONG 782.3 EDEMA 10/30/2012 PEÑALOZA DO DIMPLE K 782.3 EDEMA 10/30/2012 WENDI BLACK MD N 782 .3 EDEMA 10/30/2012 WENDI LBACK MD N 782 .3 EDEMA 10/30/2012 TIN HEREDIA PSYD L 782.3 EDEMA 10/30/2012 WENDI BLACK MD N 782 .3 EDEMA 10/30/2012 WENDI BLACK MD N 782 .3 EDEMA 10/30/2012 CHRISTEL SALAZAR, CARLOS M 782.3 EDEMA 10/30/2012 [employer] MAIL CARRIER, CARLOS M 782.3 EDEMA 10/30/2012 [employer] MAIL CARRIER, CARLOS M 782.3 EDEMA 10/30/2012 CHRISTELCARLOS LOVELACE 782.3 EDEMA 11/07/2012 008.8 LOKESH ROENTERITIS, VIRAL 11/07/2012 TEOFILO FELICIANO MD 008.8 GASTROENTERITIS, VIRAL 11/07/2012 DIMPLE PEÑALOZA DO 008.8 GASTROENTERITIS, VIRAL 11/07/2012 PAIGE HECK MANAV LONG 008.8 GASTROENTERITIS, VIRAL 11/07/2012 MAU NAVARRO APRN A 00 8.8 GASTROENTERITIS, VIRAL 11/07/2012 MANVA GIBSON APRN 008.8 GASTROENTERITIS, VIRAL 11/07/2012 WENDI BLACK MD [...] AHUJA 008.8 GASTROENTERITIS, VIRAL 11/07/2012 CARLOS AHUJA M 008.8 GASTROENTERITIS, VIRAL 03/08/2013 TEOFILO FELICIANO MD 728.87 MUSCLE WEAKNESS (GENERALIZED) 03/08/2013 DIMPLE PEÑALOZA DO 728.87 MUSCLE WEAKNESS (GENERALIZED) 03/08/2013 MANAV GIBSON APRN 728.87 MUSCLE WEAKNESS (GENERALIZED) 03/08/2013 MAU NAVARRO APRN 728.87 MUSCLE WEAKNESS (GENERALIZED) 03/08/2013 MANAV GIBSON APRN 728.87 MUSCLE WEAKNESS (GENERALIZED) 03/08/2013 SOFIA MD, WENDI N 728 .87 MUSCLE WEAKNESS (GENERALIZED) 03/08/2013 WENDI BLACK MD N 728 .87 MUSCLE WEAKNESS (GENERALIZED) 03/08/2013 DIMPLE PEÑALOZA DO K 728.87 MUSCLE WEAKNESS (GENERALIZED) 03/08/2013 PAIGE HECK MANAV ALVES 728.87 MUSCLE WEAKNESS (GENERALIZED) 03/08/2013 DIMPLE PEÑALOZA DO K 728.87 MUSCLE WEAKNESS (GENERALIZED) 03/08/2013 WENDI BLACK MD N 728 .87 MUSCLE WEAKNESS (GENERALIZED) 03/08/2013 WENDI BLACK MD 728 .87 MUSCLE WEAKNESS (GENERALIZED) 03/08/2013 TIN HEREDIA PSYD 728.87 MUSCLE WEAKNESS (GENERALIZED) 03/08/2013 WENDI BLACK MD N 728 .87 MUSCLE WEAKNESS (GENERALIZED) 03/08/2013 WENDI BLACK MD 728 .87 MUSCLE WEAKNESS (GENERALIZED) 03/08/2013 CARLOS AHUJA M 728.87 MUSCLE WEAKNESS (GENERALIZED) 03/08/2013 CARLOS AHUJA M 728.87 MUSCLE WEAKNESS (GENERALIZED) 03/08/2013 CHRISTEL SALAZAR, CARLOS M 728.87 MUSCLE WEAKNESS (GENERALIZED) 03/08/2013 CHRISTEL SALAZAR, CARLOS M 728.87 MUSCLE WEAKNESS (GENERALIZED) 04/26/2013 DIMPLE PEÑALOZA DO K 599.0 URINARY TRACT INFECTION 04/26/2013 PAIGE HECK MANAV LONG 599.0 URINARY TRACT INFECTION 04/26/2013 MAU NAVARRO APRN 59 9.0 URINARY TRACT INFECTION 04/26/2013 PAIGE HECK MANAV LONG 599.0 URINARY TRACT INFECTION 04/26/2013 WENDI BLACK MD N 599 .0 URINARY TRACT INFECTION 04/26/2013 WENDI BLACK MD N 599 .0 URINARY TRACT INFECTION 04/26/2013 DIMPLE PEÑALOZA DO K 599.0 URINARY TRACT INFECTION 04/26/2013 PAIGE HECK MANAV LONG 599.0 URINARY TRACT INFECTION 04/26/2013 AQUILES PEÑALOZA DOA K 599.0 URINARY TRACT INFECTION 04/26/2013 WENDI BLACK MD N 599 .0 URINARY TRACT INFECTION 04/26/2013 SOFIA MD, WENDI N 599 .0 URINARY TRACT INFECTION 04/26/2013 TIN HEREDIA PSYD 599.0 URINARY TRACT INFECTION 04/26/2013 WENDI BLACK MD N 599 .0 URINARY TRACT INFECTION 04/26/2013 SOFIA RICE, WENDI N 599 .0 URINARY TRACT INFECTION 04/26/2013 CHRISTEL RURAL MAIL CARRIER, CARLOS M 599.0 URINARY TRACT INFECTION 04/26/2013 CHRISTEL RURAL MAIL CARRIER, CARLOS M 599.0 URINARY TRACT INFECTION 04/26/2013 CHRISTEL RURAL MAIL CARRIER, CARLOS M 599.0 URINARY TRACT INFECTION 04/26/2013 CHRISTEL RURAL MAIL CARRIER, CARLOS M 599.0 URINARY TRACT INFECTION 09/27/2013 MAU NAVARRO APRN A 388.70 OTALGIA UNSPECIFIED 09/27/2013 MAU NAVARRO APRN A 78 6.2 COUGH 09/27/2013 MANAV GIBSON APRN 388.70 OTALGIA UNSPECIFIED 09/27/2013 MANAV GIBSON APRNH 786.2 COUGH 09/27/2013 WENDI BLACK MD N 388 .70 OTALGIA UNSPECIFIED 09/27/2013 WENDI BLACK MD N 786 .2 COUGH 09/27/2013 WENDI BLACK MD 388 .70 OTALGIA UNSPECIFIED 09/27/2013 WENDI BLACK MD N 786 .2 COUGH 09/27/2013 PEÑALOZA DO, DIMPLE K 388.70 OTALGIA UNSPECIFIED 09/27/2013 PEÑALOZA DO, DIMPLE K 786.2 COUGH 09/27/2013 MANAV GIBSON APRN 388.70 OTALGIA UNSPECIFIED 09/27/2013 MANAV GIBSON APRNH 786.2 COUGH 09/27/2013 PEÑALOZA DO, DIMPLE K 388.70 OTALGIA UNSPECIFIED 09/27/2013 PEÑALOZA DO, DIMPLE K 786.2 COUGH 09/27/2013 WENDI BLACK MD N 388 .70 OTALGIA UNSPECIFIED 09/27/2013 WENDI BLACK MD N 786 .2 COUGH 09/27/2013 WENDI BLACK MD N 388 .70 OTALGIA UNSPECIFIED 09/27/2013 WENDI BLACK MD N 786 .2 COUGH 09/27/2013 MCCLEEARY PSYD, JOSE LUIS L 388.70 OTALGIA UNSPECIFIED 09/27/2013 TIN HEREDIA PSYD L 786.2 COUGH 09/27/2013 SOFIA RICE, WENDI N 388 .70 OTALGIA UNSPECIFIED 09/27/2013 SOFIA RICE, WENDI N 786 .2 COUGH 09/27/2013 SOFIA RICE, WENDI N 388 .70 OTALGIA UNSPECIFIED 09/27/2013 SOFIA RICE, WENDI Dupont 786 .2 COUGH 09/27/2013 CHRISTEL RURAL MAIL CARRIER, CARLOS M 388.70 OTALGIA UNSPECIFIED 09/27/2013 CHRISTEL RURAL MAIL CARRIER, CARLOS M 786.2 COUGH 09/27/2013 CHRISTEL RURAL MAIL CARRIER, CARLOS M 388.70 OTALGIA UNSPECIFIED 09/27/2013 CHRISTEL RURAL MAIL CARRIER, CARLOS M 786.2 COUGH 09/27/2013 CHRISTEL RURAL MAIL CARRIER, CARLOS M 388.70 OTALGIA UNSPECIFIED 09/27/2013 CHRISTEL RURAL MAIL CARRIER, CARLOS M 786.2 COUGH 09/27/2013 CHRISTEL RURAL MAIL CARRIER, CARLOS M 388.70 OTALGIA UNSPECIFIED 09/27/2013 CHRISTEL RURAL MAIL CARRIER, CARLOS M 786.2 COUGH 10/02/2013 MAU NAVARRO [...] SMOKING CESSATION 10/02/2013 WENDI BLACK MD N V74 .5 STD SCREEN 10/02/2013 WENDI BLACK [...] SMOKING CESSATION 10/02/2013 WENDI BLACK MD N V74 .5 STD SCREEN 10/02/2013 WENDI BLACK MD V76 .10 BREAST CANCER SCREENING 10/02/2013 CARLOS AHUJA V65.42 COUNSELING - SMOKING CESSATION 10/02/2013 CARLOS AHUJA M V74.5 STD SCREEN 10/02/2013 CHRISTEL RURAL MAIL CARRIERCARLOS M V76.10 BREAST CANCER SCREENING 10/02/2013 CARLOS AHUJA M V65.42 COUNSELING - SMOKING CESSATION 10/02/2013 CHRISTEL RURAL MAIL CARRIERCARLOS M V74.5 STD SCREEN 10/02/2013 CARLOS AHUJA M V76.10 BREAST CANCER SCREENING 10/02/2013 CARLOS AHUJA M V65.42 COUNSELING - SMOKING CESSATION 10/02/2013 CHRISTEL CARLOS SALAZAR M V74.5 STD SCREEN 10/02/2013 CARLOS AHUJA M V76.10 BREAST CANCER SCREENING 10/02/2013 CHRISTEL RURAL MAIL CARRIERCARLOS M V65.42 COUNSELING - SMOKING CESSATION 10/02/2013 [...] OF INITIATING OR MAINTAINING SLEEP 01/01/2014 WENDI BLCAK MD N 599 .70 HEMATURIA UNSPECIFIED 01/01/2014 WENDI BLACK MD 724 .2 LUMBAGO 01/01/2014 DIMPEL PEÑALOZA DO 307.42 PERSISTENT DISORDER OF INITIATING OR MAINTAINING SLEEP 01/01/2014 DIMPLE PEÑALOZA DO 599.70 HEMATURIA UNSPECIFIED 01/01/2014 DIMPLE PEÑALOZA DO K 724.2 LUMBAGO 01/01/2014 MANAV GIBSON APRN 307.42 PERSISTENT DISORDER OF INITIATING OR MAINTAINING SLEEP 01/01/2014 MANAV GIBSON APRN 599.70 HEMATURIA UNSPECIFIED 01/01/2014 MANAV GIBSON APRN 724.2 LUMBAGO 01/01/2014 DIMPLE PEÑALOZA DO K [...] 724 .2 LUMBAGO 01/01/2014 TIN HEREDIA PSYD ANN L 307.42 PERSISTENT DISORDER OF INITIATING OR MAINTAINING SLEEP 01/01/2014 ITN HEREDIA PSYD L 599.70 HEMATURIA UNSPECIFIED 01/01/2014 TIN HEREDIA PSYD L 724.2 LUMBAGO 01/01/2014 WENDI BLACK MD N 307 .42 PERSISTENT DISORDER OF INITIATING OR MAINTAINING SLEEP 01/01/2014 WENDI BLACK MD N 599 .70 HEMATURIA UNSPECIFIED 01/01/2014 EWNDI BLACK MD N 724 .2 LUMBAGO 01/01/2014 [...] UNSPECIFIED 01/01/2014 CARLOS AHUJA 724.2 LUMBAGO 01/01/2014 CALROS AHUJA M 307.42 PERSISTENT DISORDER OF INITIATING OR MAINTAINING SLEEP 01/01/2014 CARLOS AHUJA M 599.70 HEMATURIA UNSPECIFIED 01/01/2014 CARLOS AHUJA M 724.2 LUMBAGO 02/17/2014 PEÑALOZA , DIMPLE K 466.0 BRONCHITIS, ACUTE 02/17/2014 GIBSON UMANGMANAV 466.0 BRONCHITIS, ACUTE 02/17/2014 PEÑALOZA DO, DIMPLE K 466.0 BRONCHITIS, ACUTE 02/17/2014 WENDI BLACK MD 466 .0 BRONCHITIS, ACUTE 02/17/2014 WENDI BLACK MD 466 .0 BRONCHITIS, ACUTE 02/17/2014 TIN HEREDIA PSYD 466.0 BRONCHITIS, ACUTE 02/17/2014 WENDI BLACK MD 466 .0 BRONCHITIS, ACUTE 02/17/2014 WENDI BLACK MD N 466 .0 BRONCHITIS, ACUTE 02/17/2014 CARLOS AHUJA M 466.0 BRONCHITIS, ACUTE 02/17/2014 CARLOS AHUJA 466.0 BRONCHITIS, ACUTE 02/17/2014 CARLOS AHUJA M 466.0 BRONCHITIS, ACUTE 02/17/2014 CARLOS AHUJA M 466.0 BRONCHITIS, ACUTE 05/21/2014 WENDI BLACK MD N 388 .70 OTALGIA UNSPECIFIED 05/21/2014 WENDI BLACK MD N 388 .70 OTALGIA UNSPECIFIED 05/21/2014 TIN HEREDIA PSYD 388.70 OTALGIA UNSPECIFIED 05/21/2014 WENDI BLACK MD N 388 .70 OTALGIA UNSPECIFIED 05/21/2014 WENDI BLACK MD N 388 .70 OTALGIA UNSPECIFIED 05/21/2014 CARLOS AHUJA M 388.70 OTALGIA UNSPECIFIED 05/21/2014 CARLOS AHUJA M 388.70 OTALGIA UNSPECIFIED 05/21/2014 CARLOS AHUJA M 388.70 OTALGIA UNSPECIFIED 05/21/2014 CARLOS AHUJA M 388.70 OTALGIA UNSPECIFIED 06/26/2014 WENDI BLACK MD N 346 .80 OTHER FORMS OF MIGRAINE WITHOUT INTRACTABLE MIGRAINE WITHOUT MENTION OF STATUS MIGRAINOSUS 06/26/2014 WENDI BLACK MD 786 .50 CHEST PAIN 06/26/2014 WENDI BLACK MD N 346 .80 OTHER FORMS OF MIGRAINE WITHOUT INTRACTABLE MIGRAINE WITHOUT MENTION OF STATUS MIGRAINOSUS 06/26/2014 WENDI BLACK MD 786 .50 CHEST PAIN 06/26/2014 CHRISTEL RURAL MAIL CARRIER, CARLOS M 346.80 OTHER FORMS OF MIGRAINE WITHOUT INTRACTA BLE MIGRAINE WITHOUT MENTION OF STATUS MIGRAINOSUS 06/26/2014 CHRISTEL [employer] MAIL CARRIER, CARLOS M 786.50 CHEST PAIN 06/26/2014 CHRISTEL R[employer] MAIL CARRIER, CARLOS M 346.80 OTHER FORMS OF MIGRAINE WITHOUT INTRACTA BLE MIGRAINE WITHOUT MENTION OF STATUS MIGRAINOSUS 06/26/2014 CHRISTEL RURAL MAIL CARRIER, CARLOS M 786.50 CHEST PAIN 06/26/2014 CHRISTEL RURAL MAIL CARRIER, CARLOS M 346.80 OTHER FORMS OF MIGRAINE WITHOUT INTRACTA BLE MIGRAINE WITHOUT MENTION OF STATUS MIGRAINOSUS 06/26/2014 CHRISTEL RURAL MAIL CARRIER, CARLOS M 786.50 CHEST PAIN 06/26/2014 CHRISTEL RURAL MAIL CARRIER, CARLOS M 346.80 OTHER FORMS OF MIGRAINE WITHOUT INTRACTA BLE MIGRAINE WITHOUT MENTION OF STATUS MIGRAINOSUS 06/26/2014 CHRISTEL R[employer] MAIL CARRIER, CARLOS M 786.50 CHEST PAIN 07/16/2014 CHRISTEL RURAL MAIL CARRIER, CARLOS M 578.1 BLOOD IN STOOL 07/16/2014 CHRISTEL RURAL MAIL CARRIER, CARLOS M 578.1 BLOOD IN STOOL 12/02/2014 BRAYDEN RICE FACC, DIANE FACP CCDS Ot 272.4 12/02/2014 BRAYDEN RICE FACC, ALI FACP CCDS Ot 278.00 12/02/2014 BRAYDEN RICE FACC, ALI FACP CCDS Ot 305.1 12/02/2014 BRAYDEN DILLON, ALI FACP CCDS Ot 401.9 12/02/2014 BRAYDEN RICE FACC, ALI FACP CCDS Ot 786.50 12/02/2014 BRAYDEN RICE FACC, ALI FACP CCDS Ot V88.01 12/02/2014 Ot 272.4 12/02/2014 Ot 278.00 12/02/2014 Ot 305.1 12/02/2014 Ot 401.9 12/02/2014 Ot 786.50 12/02/2014 Ot V88.01 12/02/2014 SOCORRO KEATING APRN Ot 305 .1 TOBACCO USE DISORDER 12/02/2014 SOCORRO KEATING SHEET PILE HAMMER OPERATOR Ot 525 .9 DENTAL DISORDER NOS 12/02/2014 SOCORRO KEATING SHEET PILE HAMMER OPERATOR Ot 526 .5 ALVEOLITIS OF JAW 12/02/2014 BRAYDEN DILLONC, ALI FACP CCDS Ot [...] CONTROL MV ACC-DRIV 12/28/2014 BRAYDEN RICE FACC, ALI FACP CCDS [...] Ot V88.01 06/02/2015 MARCELLUS DONATO MD Ot K52. 9 NONINFECTIVE GASTROENTERITIS AND COLITIS 06/02/2015 BRAYDEN RICE FACC, ALI FACP CCDS Ot 272.4 06/02/2015 BRAYDEN RICE FACC, ALI FACP CCDS Ot 278.00 06/02/2015 [facility]DEN RICE [facility], ALI FACP CCDS Ot 305.1 06/02/2015 BRAYDEN RICE [facility], ALI FACP CCDS Ot 401.9 06/02/2015 BRAYDEN RICE [facility], ALI FACP CCDS Ot 786.50 06/02/2015 BRAYDEN RICE [facility], ALI FACP CCDS Ot V88.01 06/02/2015 Ot [...] 03/01/2016 SOCORRO KEATING APRN Ot Z79.899 OTHER DOCUMENTATION CONSULTANT (CURRENT) DRUG THERAPY 03/02/2016 SOCORRO KEATING APRN Ot I10 ESSENTIAL (PRIMARY) HYPERTENSION 03/02/2016 SOCORRO KEATING APRN Ot K52 .9 NONINFECTIVE GASTROENTERITIS AND COLITIS 03/02/2016 SOCORRO KEATING APRN Ot R11 .2 NAUSEA WITH VOMITING, UNSPECIFIED 03/02/2016 SOCORRO KEATING APRN Ot Z79.899 OTHER DOCUMENTATION CONSULTANT (CURRENT) DRUG THERAPY 03/02/2016 SOCORRO KEATING APRN Ot I10 ESSENTIAL (PRIMARY) HYPERTENSION 03/02/2016 SOCORRO KEATING APRN Ot K52 .9 NONINFECTIVE GASTROENTERITIS AND COLITIS 03/02/2016 SOCORRO KEATING SHEET PILE HAMMER OPERATOR Ot R11 .2 NAUSEA WITH VOMITING, UNSPECIFIED 03/02/2016 SOCORRO KEATING APRN Ot Z79.899 OTHER RESIDENTIAL (CURRENT) DRUG THERAPY 03/05/2016 SOCORRO KEATING SHEET PILE HAMMER OPERATOR Ot I10 ESSENTIAL (PRIMARY) HYPERTENSION 03/05/2016 SOCORRO KEATING APRN Ot K52 .9 NONINFECTIVE GASTROENTERITIS AND COLITIS 03/05/2016 SOCORRO KEATING SHEET PILE HAMMER OPERATOR Ot R11 .2 NAUSEA WITH VOMITING, UNSPECIFIED 03/05/2016 SOCORRO KEATING SHEET PILE HAMMER OPERATOR Ot Z79.899 OTHER DOCUMENTATION CONSULTANT (CURRENT) DRUG THERAPY 03/08/2016 SOCORRO KEATING APRN Ot I10 ESSENTIAL (PRIMARY) HYPERTENSION 03/08/2016 SOCORRO KEATING APRN Ot K52 .9 NONINFECTIVE GASTROENTERITIS AND COLITIS 03/08/2016 SOCORRO KEATING APRN Ot R11 .2 NAUSEA WITH VOMITING, UNSPECIFIED 03/08/2016 SOCORRO KEATING APRN Ot Z79.899 OTHER RESIDENTIAL (CURRENT) DRUG THERAPY 03/14/2016 SOCORRO KEATING SHEET PILE HAMMER OPERATOR Ot I10 ESSENTIAL (PRIMARY) HYPERTENSION 03/14/2016 SOCORRO KEATING APRN Ot K52 .9 NONINFECTIVE GASTROENTERITIS AND COLITIS 03/14/2016 SOCORRO KEATING SHEET PILE HAMMER OPERATOR Ot R11 .2 NAUSEA WITH VOMITING, UNSPECIFIED 03/14/2016 SOCORRO KEATING APRN Ot Z79.899 OTHER RESIDENTIAL (CURRENT) DRUG THERAPY 06/30/2016 ALVARO CABRERA MD [...] OF 2ND METATARSAL BONE, L FT, 08/17/2016 DAMEON GUY Everette Ot S92.335 A NONDISP FX OF THIRD METATARSAL BONE, LEF 08/17/2016 DAMEON GUY Everette Ot S99.922 A UNSPECIFIED INJURY OF LEFT FOOT, INITIAL 08/17/2016 GUY XIAO DO Ot X50.0XX A OVEREXERTION FROM STRENUOUS MOVEMENT OR 08/17/2016 GUY XIAO DO Ot Y99.8 OTHER EXTERNAL CAUSE STATUS 08/17/2016 DAMEON YEPEZ GUY Everette Ot Z79.899 OTHER DOCUMENTATION CONSULTANT (CURRENT) DRUG THERAPY 09/11/2016 ANKIT BE MD [...] 09/25/2016 CRYSTAL SINGLETON MD Ot Z79.899 OTHER DOCUMENTATION CONSULTANT (CURRENT) DRUG THERAPY 09/27/2016 CRYSTAL SINGLETON MD Ot F17.210 NICOTINE DEPENDENCE, CIGARETTES, UNCOMPL 09/27/2016 CRYSTAL SINGLETON MD Ot I10 ESSENTIAL (PRIMARY) HYPERTENSION 09/27/2016 CRYSTAL SINGLETON MD Ot M54. 5 LOW BACK PAIN 09/27/2016 CRYSTAL SINGLETON MD Ot R11. 0 NAUSEA 09/27/2016 CRYSTAL SINGLETON MD Ot R53. 83 OTHER FATIGUE 09/27/2016 CRYSTAL SINGLETON MD Ot Z79.899 OTHER RESIDENTIAL (CURRENT) DRUG THERAPY 10/01/2016 CRYSTAL SINGLETON MD Ot F17.210 NICOTINE DEPENDENCE, CIGARETTES, UNCOMPL 10/01/2016 CRYSTAL SINGLETON MD Ot I10 ESSENTIAL (PRIMARY) HYPERTENSION 10/01/2016 CRYSTAL SINGLETON MD Ot M54. 5 LOW BACK PAIN 10/01/2016 CRYSTAL SINGLETON MD Ot R11. 0 NAUSEA 10/01/2016 CRYSTAL SINGLETON MD Ot R53. 83 OTHER FATIGUE 10/01/2016 CRYSTAL SINGLETON MD Ot Z79.899 OTHER RESIDENTIAL (CURRENT) DRUG THERAPY 12/06/2016 GUY XIAO DO Ot E78.00 PURE HYPERCHOLESTEROLEMIA, UNSPECIFIED 12/06/2016 GUY XIAO DO Ot E86.0 DEHYDRATION 12/06/2016 GUY XIAO DO Ot F17.210 NICOTINE DEPENDENCE, CIGARETTES, UNCOMPL 12/06/2016 GUY XIAO DO Ot F32.9 MAJOR DEPRESSIVE DISORDER, SINGLE EPISOD 12/06/2016 GUY XIAO DO Ot F41.9 ANXIETY DISORDER, UNSPECIFIED 12/06/2016 GUY XIAO DO Ot I10 ESSENTIAL (PRIMARY) HYPERTENSION 12/06/2016 GUY [...] TRACT INFECTION, SITE NOT SPECIF 12/09/2016 DAMEON GUY K Ot R10.84 GENERALIZED ABDOMINAL PAIN 12/09/2016 DAMEON DO, GUY K Ot Z90.49 ACQUIRED ABSENCE OF OTHER SPECIFIED PART 12/09/2016 DAMEON DO GUY K Ot Z90.710 ACQUIRED [...] BOTH CERVIX AND UTER 12/28/2016 WINSTON, JASMINA SUPERVISING FIRE MARSHAL Ot E78.00 PURE HYPERCHOLESTEROLEMIA, UNSPECIFIED 12/28/2016 WINSTON, JASMINA SUPERVISING FIRE MARSHAL Ot F32.9 MAJOR DEPRESSIVE DISORDER, SINGLE EPISOD 12/28/2016 WINSTON, JASMINA SUPERVISING FIRE MARSHAL Ot F41.9 ANXIETY DISORDER, UNSPECIFIED 12/28/2016 WINSTON, JASMINA SUPERVISING FIRE MARSHAL Ot I10 ESSENTIAL (PRIMARY) HYPERTENSION 12/28/2016 WINSTON, JASMINA SUPERVISING FIRE MARSHAL Ot J45.909 UNSPECIFIED ASTHMA, UNCOMPLICATED 12/28/2016 WINSTON, JASMINA SUPERVISING FIRE MARSHAL Ot M54.16 RADICULOPATHY, LUMBAR REGION 12/28/2016 WINSTON JASMINA SUPERVISING FIRE MARSHAL Ot M54.5 LOW BACK PAIN 12/28/2016 WINSTON JASMINA SUPERVISING FIRE MARSHAL Ot Z87.81 PERSONAL HISTORY OF (HEALED) TRAUMATIC F 12/28/2016 WINSTON, JASMINA SUPERVISING FIRE MARSHAL Ot Z90.710 ACQUIRED ABSENCE OF BOTH CERVIX AND UTER 12/28/2016 WINSTON, JASMINA SUPERVISING FIRE MARSHAL Ot Z98.890 OTHER SPECIFIED POSTPROCEDURAL STATES 12/31/2016 SOCORRO KEATING APRN Ot E78.00 PURE HYPERCHOLESTEROLEMIA, UNSPECIFIED 12/31/2016 SOCORRO KEATING APRN Ot F17.210 NICOTINE DEPENDENCE, CIGARETTES, UNCOMPL 12/31/2016 SOCORRO KEATING SHEET PILE HAMMER OPERATOR Ot I10 ESSENTIAL (PRIMARY) HYPERTENSION 12/31/2016 SOCORRO KEATING APRN Ot J45.909 UNSPECIFIED ASTHMA, UNCOMPLICATED 12/31/2016 SOCORRO KEATING APRN Ot M54 .5 LOW BACK PAIN 12/31/2016 SOCORRO KEATING APRN Ot Z87.81 PERSONAL HISTORY OF (HEALED) TRAUMATIC F 12/31/2016 SOCORRO KEATING APRN Ot Z90.710 ACQUIRED ABSENCE OF BOTH CERVIX AND UTER 12/31/2016 SOCORRO KEATING APRN Ot Z98.890 OTHER SPECIFIED POSTPROCEDURAL STATES 01/03/2017 WINSTON, JASMINA SUPERVISING FIRE MARSHAL Ot E78.00 PURE HYPERCHOLESTEROLEMIA, UNSPECIFIED 01/03/2017 WINSTON, JASMINA SUPERVISING FIRE MARSHAL Ot F32.9 MAJOR DEPRESSIVE DISORDER, SINGLE EPISOD 01/03/2017 WINSTON, JASMINA SUPERVISING FIRE MARSHAL Ot F41.9 ANXIETY DISORDER, UNSPECIFIED 01/03/2017 JASMINA MONTEROP Ot I10 ESSENTIAL (PRIMARY) HYPERTENSION 01/03/2017 JASMINA MONTERO SUPERVISING FIRE MARSHAL Ot J45.909 UNSPECIFIED ASTHMA, UNCOMPLICATED 01/03/2017 WINSTONJASMINA Corrigan SUPERVISING FIRE MARSHAL Ot M54.16 RADICULOPATHY, LUMBAR REGION 01/03/2017 WINSTONJASMINA Corrigan SUPERVISING FIRE MARSHAL Ot M54.5 LOW BACK PAIN 01/03/2017 WINSTONJASMINA Corrigan SUPERVISING FIRE MARSHAL Ot Z87.81 PERSONAL HISTORY OF (HEALED) TRAUMATIC F 01/03/2017 WINSTONJASMINA CorriganP Ot Z90.710 ACQUIRED ABSENCE OF BOTH CERVIX AND UTER 01/03/2017 WINSTONJASMINA Corrigan SUPERVISING FIRE MARSHAL Ot Z98.890 OTHER SPECIFIED POSTPROCEDURAL STATES 01/03/2017 [...] HYPERTENSION 01/13/2017 [place] RICE, ANKIT Tristan Ot N17. 9 ACUTE KIDNEY FAILURE, UNSPECIFIED 01/13/2017 [place] RICE, ANKIT Tristan Ot R39. 15 URGENCY OF URINATION 01/15/2017 GUY XIAO DO Ot E78.00 PURE HYPERCHOLESTEROLEMIA, UNSPECIFIED 01/15/2017 GUY XIAO DO Ot F17.210 NICOTINE DEPENDENCE, CIGARETTES, UNCOMPL 01/15/2017 GUY XIAO DO Ot F32.9 MAJOR DEPRESSIVE DISORDER, SINGLE EPISOD 01/15/2017 GUY XIAO DO K Ot F41.9 ANXIETY DISORDER, UNSPECIFIED 01/15/2017 DAMEON YEPEZ GUY K Ot I10 ESSENTIAL (PRIMARY) HYPERTENSION 01/15/2017 DAMEON YEPEZ GUY Everette Ot M54.41 LUMBAGO WITH SCIATICA, RIGHT SIDE 01/15/2017 DAMEON YEPEZ GUY Everette Ot M54.42 LUMBAGO WITH SCIATICA, LEFT SIDE 01/15/2017 DAMEON YEPEZ GUY Everette Ot R20.0 ANESTHESIA OF SKIN 01/15/2017 DAMEON YEPEZ GUY Everette Ot Z87.81 PERSONAL HISTORY OF (HEALED) TRAUMATIC F 01/15/2017 DAMEON YEPEZ GUY Evreette Ot Z90.710 ACQUIRED ABSENCE OF BOTH CERVIX AND UTER 01/15/2017 SOFIA RICE, WENDI Dupont Ot M12.88 OTH SPECIFIC ARTHROPATHIES, NEC, OTH SIT 02/06/2017 WENDI BLACK MD Ot M12.88 OTH SPECIFIC ARTHROPATHIES, NEC, OTH SIT 02/07/2017 DAMEON GUY Everette Ot F17.210 NICOTINE DEPENDENCE, CIGARETTES, UNCOMPL 02/07/2017 DAMEON YEPEZ GUY Gaviria Ot I10 ESSENTIAL (PRIMARY) HYPERTENSION 02/07/2017 DAMEON YEPEZ GUY Gaviria Ot S92.325 D NONDISP FX OF 2ND METATARSAL BONE, L FT, 02/07/2017 DAMEON YEPEZ GUY Everette Ot S92.335 A NONDISP FX OF THIRD METATARSAL BONE, LEF 02/07/2017 DAMEON DO GUY K Ot S99.922 A UNSPECIFIED INJURY OF LEFT FOOT, INITIAL 02/07/2017 DAMEON YEPEZ GUY Everette Ot X50.0XX A OVEREXERTION FROM STRENUOUS MOVEMENT OR 02/07/2017 DAMEON YEPEZ GUY K Ot Y99.8 OTHER EXTERNAL CAUSE STATUS 02/07/2017 DAMEON DO GUY Everette Ot Z79.899 OTHER RESIDENTIAL (CURRENT) DRUG THERAPY 02/07/2017 UZMA IRVING Ot E78.00 PURE HYPERCHOLESTEROLEMIA, UNSPECIFIED 02/07/2017 UZMA IRVING Ot F17.210 NICOTINE DEPENDENCE, CIGARETTES, UNCOMPL 02/07/2017 UZMA IRVING Ot F32.9 MAJOR DEPRESSIVE DISORDER, SINGLE EPISOD 02/07/2017 UZMA IRVING Ot F41.9 ANXIETY DISORDER, UNSPECIFIED 02/07/2017 UZMA IRVING Ot I 10 ESSENTIAL (PRIMARY) HYPERTENSION 02/07/2017 [...] ABSENCE OF BOTH CERVIX AND UTER 04/10/2017 SORIN SINGLETON MDUS J Ot F17.210 NICOTINE DEPENDENCE, CIGARETTES, UNCOMPL 04/10/2017 CRYSTAL SINGLETON MD Ot F31. 9 BIPOLAR DISORDER, UNSPECIFIED 04/10/2017 CRYSTAL SINGLETON MD J Ot F41. 9 ANXIETY DISORDER, UNSPECIFIED 04/10/2017 SORIN SINGLETON MDUS J Ot J45.909 UNSPECIFIED ASTHMA, UNCOMPLICATED 04/10/2017 SORIN SINGLETON MDUS J Ot R10. 31 RIGHT LOWER QUADRANT PAIN 04/10/2017 SORIN SINGLETON MDUS J Ot Z90.710 ACQUIRED ABSENCE OF BOTH CERVIX AND UTER 04/12/2017 CRYSTAL SINGLETON MD J Ot F17.210 NICOTINE DEPENDENCE, CIGARETTES, UNCOMPL 04/12/2017 CRYSTAL SINGLETON MD J Ot F31. 9 BIPOLAR DISORDER, UNSPECIFIED 04/12/2017 CRYSTAL SINGLETON MD Ot F41. 9 ANXIETY DISORDER, UNSPECIFIED 04/12/2017 SORIN SINGLETON MDUS J Ot J45.909 UNSPECIFIED ASTHMA, UNCOMPLICATED 04/12/2017 SORIN SINGLETON MDUS J Ot R10. 31 RIGHT LOWER QUADRANT PAIN 04/12/2017 CRYSTAL SINGLETON MD Ot Z90.710 ACQUIRED ABSENCE OF BOTH CERVIX AND UTER 10/02/2017 DAMEON DO GUY K Ot E78.00 PURE HYPERCHOLESTEROLEMIA, UNSPECIFIED 10/02/2017 DAMEON DO GUY K Ot F17.210 NICOTINE DEPENDENCE, CIGARETTES, UNCOMPL 10/02/2017 DAMEON YEPEZ GUY K Ot F32.9 MAJOR DEPRESSIVE DISORDER, SINGLE EPISOD 10/02/2017 DAMEON DO GUY K Ot F41.9 ANXIETY DISORDER, UNSPECIFIED 10/02/2017 DAMEON DO GUY K Ot G43.909 MIGRAINE, UNSP, NOT INTRACTABLE, WITHOUT 10/02/2017 DAMEON DO GUY K Ot I10 ESSENTIAL (PRIMARY) HYPERTENSION 10/02/2017 DAMEONDanisha YEPEZ GUY K Ot J45.909 UNSPECIFIED ASTHMA, UNCOMPLICATED 10/02/2017 DAMEON DO GUY K Ot R40.214 2 COMA SCALE, EYES OPEN, SPONTANEOUS, EMR 10/02/2017 KINGSTON XIAO DOA K Ot R40.225 2 COMA SCALE, BEST VERBAL RESPONSE, ORIENT 10/02/2017 DAMEON DO GUY Everette Ot R40.236 2 COMA SCALE, BEST MOTOR [...] ASTHMA, UNCOMPLICATED 10/03/2017 GUY XIAO DO Ot R40.214 2 COMA SCALE, EYES OPEN, SPONTANEOUS, EMR 10/03/2017 DAMEONDanisha YEPEZ GUY K Ot R40.225 2 COMA SCALE, BEST VERBAL RESPONSE, ORIENT 10/03/2017 GUY XIAO DO Ot R40.236 2 COMA SCALE, BEST MOTOR RESPONSE, OBEYS C 10/03/2017 GUY XIAO DO Ot R51 HEADACHE 10/03/2017 GUY XIAO DO Ot S00.93X A CONTUSION [...] ALLERGY STATUS TO OTHER ANTIBIOTIC AGENT 10/03/2017 GUY XIAO DO Ot Z88.2 ALLERGY STATUS [...] DO Ot Z98.890 OTHER SPECIFIED POSTPROCEDURAL STATES 10/15/2017 GUY XIAO DO Ot E78.00 PURE HYPERCHOLESTEROLEMIA, UNSPECIFIED 10/15/2017 GUY XIAO DO Ot F17.210 NICOTINE DEPENDENCE, CIGARETTES, UNCOMPL 10/15/2017 DAMEON YEPEZ GUY Everette Ot F32.9 MAJOR DEPRESSIVE DISORDER, SINGLE EPISOD 10/15/2017 DAMEON GUY Everette Ot F41.9 ANXIETY DISORDER, UNSPECIFIED 10/15/2017 DAMEON YEPEZ GUY Gaviria Ot G43.909 MIGRAINE, UNSP, NOT INTRACTABLE, WITHOUT 10/15/2017 DAMEON YEPEZ GUY Gaviria Ot I10 ESSENTIAL (PRIMARY) HYPERTENSION 10/15/2017 DAMEON GUY Gaviria Ot J45.909 UNSPECIFIED ASTHMA, UNCOMPLICATED 10/15/2017 DAMEON YEPEZ GUY Gaviria Ot R10.32 LEFT LOWER QUADRANT PAIN 10/15/2017 DAMEON GUY Everette Ot Z87.440 PERSONAL HISTORY OF URINARY (TRACT) INFE 10/15/2017 DAMEON YEPEZ GUY Everette Ot Z87.442 PERSONAL HISTORY OF URINARY CALCULI 10/15/2017 DAMEON GUY Everette Ot Z87.81 PERSONAL HISTORY OF (HEALED) TRAUMATIC F 10/15/2017 DAMEON GUY Gaviria Ot Z88.1 ALLERGY STATUS TO OTHER ANTIBIOTIC AGENT 10/15/2017 DAMEON GUY Everette Ot Z88.2 ALLERGY STATUS TO SULFONAMIDES STATUS 10/15/2017 DAMEON YEPEZ GUY Everette Ot Z88.5 ALLERGY STATUS TO NARCOTIC AGENT STATUS 10/15/2017 DAMEON YEPEZ GUY Everette Ot Z88.8 ALLERGY STATUS TO OTH DRUG/MEDS/BIOL SUB 10/15/2017 DAMEON YEPEZ GUY Gaviria Ot Z90.710 ACQUIRED ABSENCE OF BOTH CERVIX AND UTER 12/22/2017 BRAYDEN RICE FACC, DIANE FACP CCDS Ot 272.4 HYPERLIPIDEMIA NEC/NOS 12/22/2017 BRAYDEN RICE FACC, DIANE FACP CCDS Ot 278.00 OBESITY, NOS 12/22/2017 BRAYDEN RICE FACC, DIANE FACP CCDS Ot 305.1 TOBACCO USE DISORDER 12/22/2017 BRAYDEN RICE FACC, DIANE FACP CCDS Ot 401.9 HYPERTENSION NOS 12/22/2017 BRAYDEN RICE FACC, DIANE FACP CCDS Ot 786.50 CHEST PAIN NOS 12/22/2017 BRAYDEN RICE FACC, DIANE FACP CCDS Ot V88.01 ACQUIRED ABSENCE OF BOTH CERVIX AND UTER 12/22/2017 Ot 272.4 HYPE RLIPIDEMIA NEC/NOS 12/22/2017 Ot 278.00 OBE SITY, NOS 12/22/2017 Ot 305.1 TOBA CHRISTIAN COUNSELOR USE DISORDER 12/22/2017 Ot 401.9 HYPE RTENSION NOS 12/22/[address] PAIN NOS 12/22/2017 Ot V88.01 ACQ UIRED ABSENCE OF BOTH CERVIX AND UTER 12/22/2017 SOFIA RICE, WENDI Dupont Ot M12.88 OTH SPECIFIC ARTHROPATHIES, NEC, OTH SIT 08/19/2018 GOMEZ MELGOZA DO, Ot D72.829 ELEVATED WHITE BLOOD CELL COUNT, UNSPECI 08/19/2018 GOMEZ MELGOZA DO, Ot E78.00 PURE HYPERCHOLESTEROLEMIA, UNSPECIFIED 08/19/2018 GOMEZ MELGOZA DO, Ot F32 .9 MAJOR DEPRESSIVE DISORDER, SINGLE EPISOD 08/19/2018 GOMEZ MELGOZA DO, Ot F41 .9 ANXIETY DISORDER, UNSPECIFIED 08/19/2018 GOMEZ MELGOZA DO, Ot G43.909 MIGRAINE, UNSP, NOT INTRACTABLE, WITHOUT 08/19/2018 GOMEZ MELGOZA DO Ot I10 ESSENTIAL (PRIMARY) HYPERTENSION 08/19/2018 GOMEZ MELGOZA DO, Ot J45.909 UNSPECIFIED ASTHMA, UNCOMPLICATED 08/19/2018 GOMEZ MELGOZA DO, Ot R10.84 GENERALIZED ABDOMINAL PAIN 08/19/2018 GOMEZ MELGOZA DO, Ot R11 .2 NAUSEA WITH VOMITING, UNSPECIFIED 08/19/2018 GOMEZ MELGOZA DO, Ot R19 .7 DIARRHEA, UNSPECIFIED 08/19/2018 GOMEZ MELGOZA DO, Ot R79.81 ABNORMAL BLOOD-GAS LEVEL 08/19/2018 GOMEZ MELGOZA DO, Ot Z87.440 PERSONAL HISTORY OF URINARY (TRACT) INFE 08/19/2018 GOMEZ MELGOZA DO, Ot Z87.442 PERSONAL HISTORY OF URINARY CALCULI 08/19/2018 GOMEZ MELGOZA DO, Ot Z87.891 PERSONAL HISTORY OF NICOTINE DEPENDENCE 08/19/2018 GOMEZ MELGOZA DO, Ot Z88 .0 ALLERGY STATUS TO PENICILLIN 08/19/2018 GOMEZ MELGOZA DO, Ot Z88 .2 ALLERGY STATUS TO SULFONAMIDES STATUS 08/19/2018 GOMEZ MELGOZA DO, Ot Z88 .5 ALLERGY [...] HISTORY OF NICOTINE DEPENDENCE 08/22/2018 GOMEZ MELGOZA DO, Ot Z88 .0 ALLERGY STATUS TO PENICILLIN 08/22/2018 GOMEZ MELGOZA DO, Ot Z88 .2 ALLERGY STATUS TO SULFONAMIDES STATUS 08/22/2018 GOMEZ MELGOZA DO, Ot Z88 .5 ALLERGY STATUS TO NARCOTIC AGENT STATUS 08/22/2018 ABAD DO, GOMEZ M Ot Z88 .6 ALLERGY STATUS TO ANALGESIC AGENT STATUS 08/22/2018 GOMEZ MELGOZA DO Ot Z88 .8 ALLERGY STATUS TO OTH DRUG/MEDS/BIOL SUB 08/22/2018 GOMEZ MELGOZA DO Ot Z90.49 ACQUIRED ABSENCE OF OTHER SPECIFIED PART 08/22/2018 GOMEZ MELGOZA DO Ot Z90.710 ACQUIRED ABSENCE OF BOTH CERVIX AND UTER 08/22/2018 GOMEZ MELGOZA DO Ot Z98.890 OTHER SPECIFIED POSTPROCEDURAL STATES 12/05/2018 CRYSTAL SINGLETON MD Ot E78. 00 PURE HYPERCHOLESTEROLEMIA, UNSPECIFIED 12/05/2018 CRYSTAL SINGLETON MD Ot F32. 9 MAJOR DEPRESSIVE DISORDER, SINGLE EPISOD 12/05/2018 CRYSTAL SINGLETON MD Ot F41. 9 ANXIETY DISORDER, UNSPECIFIED 12/05/2018 CRYSTAL SINGLETON MD Ot G43.909 MIGRAINE, UNSP, NOT INTRACTABLE, WITHOUT 12/05/2018 CRYSTAL SINGLETON MD Ot I10 ESSENTIAL (PRIMARY) HYPERTENSION 12/05/2018 CRYSTAL SINGLETON MD Ot J45.909 UNSPECIFIED ASTHMA, UNCOMPLICATED 12/05/2018 CRYSTAL SINGLETON MD Ot K59. 00 CONSTIPATION, UNSPECIFIED 12/05/2018 CRYSTAL [...] 2 ALLERGY STATUS TO SULFONAMIDES STATUS 12/05/2018 CRYSTAL SINGLETON MD Ot Z88. 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 Ot Z87.442 PERSONAL HISTORY OF URINARY CALCULI 02/27/2019 SOCORRO KEATING APRN Ot Z88 .1 ALLERGY STATUS TO OTHER ANTIBIOTIC AGENT 02/27/2019 SOCORRO KEATING APRN Ot Z88 .2 ALLERGY STATUS TO SULFONAMIDES STATUS 02/27/2019 SOCORRO KEATING APRN Ot Z88 .5 ALLERGY STATUS TO NARCOTIC AGENT STATUS 09/17/2019 ROSARIO TURK DO Ot R00.2 PALPITATIONS 09/17/2019 ROSARIO TURK DO Ot R06.02 SHORTNESS OF BREATH 09/17/2019 ROSARIO TURK DO Ot R79.1 ABNORMAL COAGULATION PROFILE Procedures Code [place] [address] UA W / CULTURE IF INDICATED 06/15/2012 27111 PSYC H IND W/MED CK 20 08/10/2012 06775 ROUT INE VENIPUNCTURE 10/30/2012 56628 BNP 10/30/2012 67703 CMP 10/30/2012 2912954 GF R CALC (RESULT ONLY) 10/30/2012 81836 H PY GALA (IN-HOUSE) 11/07/2012 19723 ROUT INE VENIPUNCTURE 03/08/2013 95379 A1C (IN-HOUSE) 03/08/2013 81964 ESR/ SED RATE 03/08/2013 34700 CBC 03/08/2013 86185 CRP 03/08/2013 01030 TSH 03/08/2013 13933 CPK 03/08/2013 97913 CMP 03/08/2013 1760064 GF R CALC (RESULT ONLY) 03/08/2013 ANAANA CALLUM ANALYZER (SCREEN) 03/09/2013 GRAVSPANL MYASTHENIA GRAVIS PANEL 03/18/2013 57637 UA W / CULTURE IF INDICATED 04/26/2013 88856 CULT URE URINE 04/26/2013 94726 ROUT INE VENIPUNCTURE 10/02/2013 55195 TRIC HOMONAS (IN-HOUSE) 10/02/2013 12690 SYPH ILLIS-[facility] 10/02/2013 72345 HIV ([facility]) 10/02/2013 22810 GC/C HLAM PROBE (STATE) 10/02/2013 41625 CULT URE UROGENITAL 10/03/2013 12249 UA W / CULTURE IF INDICATED 01/01/2014 80150 UA L FRANCIS DIP 02/17/2014 76032 ROUT INE VENIPUNCTURE 05/21/2014 86237 SED/ ESR RATE (IN HOUSE) 05/21/2014 19949 LIPI D PANEL 05/21/2014 93483 PSYC H DIAGNOSTIC EVALUATION 06/25/2014 75964 ROUT INE VENIPUNCTURE 06/26/2014 67413 EKG, TRACING (IN-HOUSE) 06/26/2014 00205 CMP 06/26/2014 53171 MAGNESIUM 06/26/2014 59306 TSH 06/26/2014 CARDIOLOG LIN POWERS 06/26/2014 85474 CBC 06/26/2014 77816 PSYT X PT&/FAMILY 45 MINUTES 07/28/2014 Results [...] NRG Blood erythrocyte morphology finding identification [facility] Comprehensive metabolic panel - 03/01/16 15:35 Serum [...] i.cardiac measurement (mass/v olume) < ng/mL <0.30 TSH+Free T4 - 09/14/16 13:37 TSH 2.280 uIU/mL 0.450-4.500 T4,Free(Direct) 1.07 ng/dL 0.82-1.77 Comp. Metabolic Panel (14) - 09/14/16 13 :37 Glucose, Serum 111 mg/dL 65-99 BUN 17 [...] 09/14/16 13:37 Vitamin D, 25-Hydroxy 14.4 ng/mL 30.0-10 0.0 GGT - 09/14/16 13:37 GGT 34 IU/L [...] 3.2-4.5 Basic Metabolic Panel (8) - 09/26/16 13: 40 Glucose, Serum 117 mg/dL 65-99 BUN 16 mg/dL 6-20 Creatinine, Serum 0.74 mg/dL 0.57-1.00 eGFR If NonAfricn Am 103 mL/min/1.73 >59 eGFR If Africn Am 119 mL/min/1.73 >5 9 BUN/Creatinine Ratio 22 9-23 Sodium, Serum 139 mmol/L 134-144 Potassium, Serum 4.3 mmol/L 3.5-5.2 Chloride, Serum 102 mmol/L 96-106 Carbon Dioxide, Total 17 mmol/L 18-29 Calcium, Serum 9.3 mg/dL 8.7-10.2 Complete blood count (CBC) with automate d [...] culture - 12/06/16 21:42 Bacterial urine culture [id number] NRG COLONY COUNT 10,000/ML - 100,000/ML NRG [...] culture - 12/28/16 17:00 Bacterial urine culture [id number] NRG COLONY COUNT 10,000/ML - 100,000/ML NRG FREE TEXT ENTRY 2 MIXED GRAM POSITIVE ANURAG NRG Basic Metabolic Panel (8) - 01/06/17 13: 06 Glucose, Serum 96 mg/dL 65-99 BUN 14 mg/dL 6-20 Creatinine, Serum 0.76 mg/dL 0.57-1.00 eGFR If NonAfricn Am 100 mL/min/1.73 >59 eGFR If Africn Am 115 mL/min/1.73 >5 9 BUN/Creatinine Ratio 18 9-23 Sodium, Serum 139 mmol/L 134-144 Potassium, Serum 4.1 mmol/L 3.5-5.2 Chloride, Serum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
[2019-11-27 23:07] VITALS: BP 127/80
== END 2019-11-27 23:07 | disposition home or self-care (01) ==
LOC: EDUNIT# 20:31 → ER 20:33
DX: R07.89 Other chest pain (principal); R10.13 Epigastric pain; I10 Essential (primary) hypertension; Z20.828 Contact with and (suspected) exposure to other viral communicable diseases; Z88.2 Allergy status to sulfonamides; Z88.1 Allergy status to other antibiotic agents; Z88.5 Allergy status to narcotic agent; Z88.8 Allergy status to other drugs, medicaments and biological substances; Z88.6 Allergy status to analgesic agent; Z87.891 Personal history of nicotine dependence; Z77.22 Contact with and (suspected) exposure to environmental tobacco smoke (acute) (chronic)
CPT/HCPCS: 71045; 80053; 83615; 83735; 83874; 84145; 84484; 85025; 85379; 85610; 85652; 85730; 86141; 93005; 93041; 99284; U0002; 36415; 87635